=== PATIENT | female | born 1955 | race Caucasian/White ===

== ENCOUNTER 2022-03-01 08:17 | Outpatient (CLI) | payer MEDICARE, MEDICAID, SELFPAY ==
--- OUTSIDE RECORDS SUMMARY | 2022-03-08 10:07 | XMS_ITS | Clinical Summary ---
:1955 Author Organization [facility] Address [address] [place] [address] Care Team Providers Name Role Phone Unavailable Primary Care Provider Unavailable Source Comments Patient records contain information from all sites at [facility]. For routine questions regarding patient records, call [phone] during business hours, M-F 8:00 AM - 5:00 PM Central Time. Record requests for emergency care only can be directed to [phone] at any time.[facility] Allergies No known active allergies Medications Medication [...] mL 4 0 04/23/2018 Active (DUO-NEB) 0.5-2.5 (four) times a mg/3 mL nebulizer day as needed for solution wheezing or shortness of breath. citalopram (CeleXA) Take 20 mg by 0 05/26/2018 Active 20 mg tablet mouth daily. dilTIAZem LA Take 120 mg by 0 04/23/2018 A ctive (CARDIZEM LA) 120 mg mouth at bedtime. 24 hr tablet fluticasone (FLONASE) Administer 2 5 05/11/2018 Active 50 mcg/actuation sprays into each nasal spray nostril at bedtime. MYRBETRIQ 50 mg [...] 0 08/16/2016 Active capsule mouth daily. metFORMIN Take 500 mg by 0 Activ e (GLUCOPHAGE) 500 mg mouth at bedtime. tablet zolpidem (AMBIEN) 5 Take 5 mg by 0 Active mg tablet mouth at bedtime as needed for sleep. ADVAIR DISKUS 250-50 Inhale 1 puff 2 3 06/12/2018 Active mcg/act diskus (two) times a inhaler day. psyllium (METAMUCIL) Daily 0 Active 0.52 gram capsule polyethylene Drink 1st portion 4000 mL 0 04/27/2021 Active glycol-electrolytes of prep at 6 PM (GoLYTELY) the evening [id number] -5.86 before. 2nd gram solution portion must be started 3 hours before and finished 2 hours prior to report time ARIPiprazole TAKE 1 TABLET BY 30 tablet 0 04/28/2021 2 Active (ABILIFY) 20 mg MOUTH EVERY tablet MORNING Active Problems Problem Noted Date Obstruction Intestinal 2021 Diabetes Mellitus Type 2 With Diabetic Polyneuropathy 2021 Morbid Obesity Body Mass Index >= 35 with Comorbid Con dition 2021 Nodule Pulmonary 08/07/2018 Mass Lung 08/07/2018 Other Dope Heater Current Drug Therapy 05/26/2018 Apnea Sleep Obstructive [...] 23 Quit : 2004 Smokeless Tobacco: Never Tobacco Cessation: Counseling Given: No Alcohol Use Standard Drinks/Week Comments No 0 (1 standard drink = 0.6 oz pure alcoho l) Sex Assigned at Date Recorded Not on file Last Filed Vital Signs Vital Sign Reading Time Taken Comments Blood Pressure 138/73 05/05/2021 2:01 PM FINGERPRINTER Pulse 101 05/05/2021 2:11 PM FINGERPRINTER Temperature 36.9 ??C (98.4 ??F) 05/05/2021 1:51 PM FINGERPRINTER Respiratory Rate 16 05/05/2021 2:11 PM FINGERPRINTER Oxygen Saturation 96% 05/05/2021 2:11 PM FINGERPRINTER Inhaled Oxygen Concentration - - Weight 99.1 kg (218 lb 7.6 oz) 04/26/2021 11:31 AM FINGERPRINTER Height 160 cm (5' 3) 2021 12:15 PM FINGERPRINTER Body Mass Index 38.7 2021 12:15 PM FINGERPRINTER Plan of Treatment Health Maintenance Due Date [...] of 3 - 2015 Risk 3-dose series) Depression Screening (Annual 04/29/2021 PHQ-2) Pneumococcal vaccine (65+ years) 11/04/2021 11/04/2020, 08/2014 (2 - PCV) Lipid (Cholesterol) Screening 06/18/2022 06/18/2021, 2021, 11/04/2020, Additional history exists Creatinine Level 07/10/2022 07/10/2021, 07/06/2021, 06/30/2021, Additional history exists Colonoscopy 05/05/2031 05/05/2021, 05/05/2021 Colorectal Cancer Screening 05/05/2031 Cervical Cancer Screening Discontinued 01/10/2021 Fall Risk Screen (Annual) Completed 05/05/2021 Glucose Test for Med Monitoring Discontinued 07/10/2021, 06/27, 07/10/2021, Additional history exists COVID-19 Vaccine Completed 02/22/2022, 02/16/2021, 07/29/2020, Additional history exists Influenza Vaccine Completed 02/22/2022, 04/07/2021, 07/08/2019, Additional history exists Insurance Payer Benefit Plan Subscriber ID Effective Phone Address Typ e / Group Dates MEDICARE MEDICARE A [id number] 1980-Prese [address] [place] [address] [facility] MEDICAID [id number] 2018-Prese [phone] DEPT OF [place] d[place] MEDICAID [id number] [employer] [address] [address] [place] [address] Advance Directives For more information, please contact: [phone] Latest Code Status on File Code Status [...]
--- OUTSIDE RECORDS SUMMARY | 2022-03-08 10:07 | XMS_ITS | Clinical Summary ---
:1955 Author Organization [facility] [place] [address] Care Team Providers Name Role Phone Yecenia Thrasher MD Primary Care Provider [phone] Allergies No known active allergies Medications Medication [...] 12/26/20 Minna Deleon MD/psychiatry Psychophysiological insomnia 11/24/2018 correction current use of clozapine 05/26/2018 Chronic schizophrenia 05/15/2018 KEVIN 03/13/2018 AHI-16 05/15/2018 Adenocarcinoma of lung 05/05/2018 Nonrheumatic mitral valve insufficiency 08/27/2017 Localized edema 09/27/2016 Metabolic syndrome 06/12/2016 Mild intermittent asthma 08/11/2015 Obesity with body mass index 30 or greater 12/26/2014 Asthma Encounters Date Type Specialty Care Team Description 03/01/2022 Orders Only Scanner <No scans attac hed> 02/26/2022 Orders Only Lab, [place] Outside Order ( [place]/ Meet) 02/26/2022 Travel 02/23/2022 Medical Messaging Yecenia Thrasher Update on Gabino Tong MD 02/22/2022 Office Visit Yecenia Thrasher Follow Up; Throat Problem MD Alycia (EGD showed imp aired swallowing); Bl ood Pressure; URI ( Cough and congestion) 02/22/2022 Orders Only Yecenia Thrasher Outside Ord er (Ordered by MD Dr. Piper Tong) 02/22/2022 Travel 12/07/2021 Telephone Yecenia Thrasher Form MD Alycia from Last 3 Months Immunizations Name Administration Dates Next Due COVID-19 vaccine (Pfizer-BioNTech 30mcg/0.3mL) 12YO+ BIVALENT BOOSTER PF, MDV COVID-19 vaccine (Pfizer-BioNTech [...] 160 cm (5' 3) 06/17/2021 3:10 PM MARKETING PROJECT SPECIALIST Body Mass Index 36.14 06/17/2021 3:10 PM MARKETING PROJECT SPECIALIST Plan of Treatment Upcoming Encounters Date Type Specialty Care Team Description 03/13/2022 Office Visit Yecenia Thrasher MD [address] [place] [address] (Suzanne jimenez) 05/01/2022 Office Visit Yeecnia Thrasher MD [address] [address] (Suzanne jimenez) Health Maintenance Due Date Last Done Comments Tdap 1966 Tetanus booster 1975 Colonoscopy through age 75 2000 Zoster (shingles) series for age 1204/24/2005 50+ (1 of 2) DEXA/DXA scan for age 65+ 2020 BMI (ht and wt on same day) for 11/04/2021 11/04/2020, 07/0 11/2019, age 18+ 10/21/2019, Additional history exists Medicare [...] Name Priority Date/Time Associated Diagnosis Comme nts SCAN-RADIOLOGY REPORT 03/01/2022 12:00 Re sults for this AM CDT procedure are i n the results section. CBC WITH AUTO Routine 02/26/2022 2:10 [...] results section. from Last 3 Months Results SCAN-RADIOLOGY REPORT (03/01/2022 12:00 AM CDT) Narrative This result has an attachment that is no t available. Scanner OTHER (ABNORMAL) CBC WITH AUTO DIFFERENTIAL (02/26/2022 2:10 PM CDT)Only the most recent of2 resultswithin the time period is included. [facility] Method Time Signature WHITE BLOOD 5.5 4.5 - 02/26/2022 [facility] COUNT 11.0 2:17 PM CDT [facility] mm RED BLOOD COUNT 3.96 (L) 4.00 - 02/26/2022 [facility] 5.20 2:17 PM CDT [facility] CLINIC HEMOGLOBIN 11.3 (L) 12.0 - 02/26/2022 [facility] 16.0 g/dL 2:17 PM CDT [facility] HEMATOCRIT 35.4 33.0 - 02/26/2022 [facility] 51.0 % 2:17 PM CDT [facility] MCV 89 80 - 100 02/26/2022 [facility] fL 2:17 PM CDT [facility] MCH 28.5 26.0 - 02/26/2022 [facility] 34.0 pg 2:17 PM CDT [facility] MCHC 31.9 (L) 32.0 - 02/26/2022 [facility] 36.0 g/dL 2:17 PM T [facility] RDW 14.2 11.5 - 02/26/2022 [facility] 15.5 % 2:17 PM T [facility] PLATELET COUNT 195 140 - 440 [facility] PM [facility]T [facility] MPV 10.9 6.5 - 02/26/2022 [facility] 11.0 fL 2:17 PM CDT [facility] % NEUT 63.3 % 02/26/2022 [facility] 2:17 PM CDT [facility] % LYMPH 29.0 % 02/26/2022 [facility] 2:17 PM CDT [facility] % MONO 7.3 % 02/26/2022 [facility] 2:17 PM CDT [facility] % EOS 0.2 % 02/26/2022 [facility] 2:17 PM CDT [facility] % BASO 0.2 % 02/26/2022 [facility] 2:17 PM CDT [facility] ABSOLUTE 3.5 1.7 - 7.0 02/26/2022 [facility] NEUTROPHILS thou/cu 2:17 PM CDT [facility] CLINIC ABSOLUTE 1.6 0.9 - 2.9 02/26/2022 [facility] LYMPHOCYTES thou/cu 2:17 PM CDT [facility] CLINIC ABSOLUTE 0.4 <0.9 02/26/2022 [facility] MONOCYTES thou/cu 2:17 PM CDT [facility] CLINIC ABSOLUTE 0.0 <0.5 02/26/2022 [facility] EOSINOPHILS thou/cu 2:17 PM CDT [facility] ABSOLUTE 0.0 <0.3 02/26/2022 [facility] BASOPHILS thou/cu 2:17 PM CDT [facility] CLINIC Specimen Anatomical Collection Method / Collection Time Recei junie Time (Source) Location / Volume Laterality Blood BLOOD SPECIMEN / Venipuncture / 02/26/2022 2:10 2021 2:14 Unknown Unknown PM CDT PM CDT Narrative [facility] - 2021 2:17 PM CDT Notice: This testing was ordered by an outside provider. The provider who placed this order has revie wed and approved it for completion by [facility] lab, but is not involved in this patient's care related to the ordering of this lab. The lab will provide the testing results for Monthly CDF, to the outside provider, Dr. Piper Carlson at fax number [phone] \TTracy Dsouza at fax number [phone], for that provider to inform and arrange appropriate follow up with the patient. Yecenia Thrasher MD HEMATOLOGY Performing Organization Address City/State/ZIP Code Phon e Number [facility] [address] [place] [address] HEMOGLOBIN A1C SCREENING (02/22/2022 11:34 AM CDT) P athologist Signature HEMOGLOBIN A1C 5.8 <=6.4 % 02/23/2022 [facility] SCREENING 8:04 AM CDT [facility]AT[facility] LABOR[facility] Specimen Anatomical Collection Method / Collection Time Recei junie Time (Source) Location / Volume Laterality Blood BLOOD SPECIMEN / Venipuncture / 02/22/2022 11:34 02/22 Unknown Unknown AM CDT 11:36 AM CDT Narrative [facility] LABORATORY-CENTRAL LABORAT ORY - 02/23/2022 8:04 [...] Organization Address City/State/ZIP Code Phon e Number [facility] [address] [place], [place] [id number] [address] LABORATORY-CENTRAL 2000 LABORATORY (ABNORMAL) COMP METABOLIC PANEL (02/22/2022 11:34 AM CDT) [facility] gist Method Time Signature SODIUM 140 135 - 145 02/24/2022 [facility] mmol/L 6:21 PM CDT [facility] POTASSIUM 4.3 3.5 - 5.0 02/24/2022 [facility] mmol/L 6:21 PM CDT [facility] CHLORIDE 105 98 - 110 02/24/2022 [facility] mmol/L 6:21 PM CDT [facility] CO2,TOTAL 24 21 - 31 02/24/2022 [facility] mmol/L 6:21 PM CDT [facility] ANION GAP 11 5 - 18 02/24/2022 [facility] 6:21 PM CDT [facility] GLUCOSE 188 (H) 65 - 100 02/24/2022 [place] [facility] mg/dL 6:21 PM CDT [facility] CALCIUM 9.4 8.5 - 10.5 02/24/2022 [facility] mg/dL 6:21 PM CDT [facility] BUN 9 8 - 25 02/24/2022 [facility] mg/dL 6:21 PM CDT [facility] CREATININE 0.76 0.57 - 02/24/2022 [facility] 1.11 mg/dL 6:21 PM CDT [facility] BUN/CREAT RATIO 12 10 - 20 02/24/2022 [facility] 6:21 PM CDT [facility] ALBUMIN 4.2 3.2 - 4.6 02/24/2022 [facility] g/dL 6:21 PM CDT [facility] PROTEIN,TOTAL 7.1 6.0 - 8.0 02/24/2022 [facility] g/dL 6:21 PM CDT [facility] GLOBULIN 2.9 2.0 - 3.7 02/24/2022 [facility] g/dL 6:21 PM CDT [facility] A/G RATIO 1.4 1.0 - 2.0 02/24/2022 [facility] 6:21 PM CDT [facility] BILIRUBIN,TOTAL 0.4 0.2 - 1.2 02/24/2022 [facility] mg/dL 6:21 PM CDT [facility] ALK PHOSPHATASE 115 50 - 136 02/24/2022 [facility] IU/L 6:21 PM CDT [facility] ALT (SGPT) 29 8 - 45 02/24/2022 [facility] IU/L 6:21 PM CDT [facility] AST (SGOT) 21 2 - 40 02/24/2022 [facility] IU/L 6:21 PM CDT [facility] eGFR 87 (L) >90 02/24/2022 [facility] mL/min/1.7 6:21 PM CDT [facility] 3m2 TRAL [...] MD CHEMISTRY Performing Organization Address City/State/ZIP Code [facility] e Number [facility] [address] [place] [address] LABORATORY-CENTRAL 2000 LABORATORY from Last 3 Months Insurance Payer Benefit Plan / Subscriber ID Effective Dates Phone Addre ss Type Group MEDICARE PART B MEDICARE PART B [id number] 1980-Present ATTN: CLAIMS - HB USE ONLY HB ONLY [address] [place] [address] MEDICARE PART A MEDICARE PART A [id number] 1980-Present ATTN: CLAIMS - HB USE ONLY HB ONLY [address] [place] [address] MEDICARE - PB MEDICARE PB [id number] 2006-Presen ATT N: CLAIMS USE ONLY ONLY t [address] [place] [address] MEDICAID [place] MEDICA[place] [id number] 2018-Present [address] [address] [place] [address] Advance Directives Documents on File Type Date Recorded Patient Histologic Technician Explanati on Healthcare Directive 05/24/2021 05/24/2021 Latest [...] Code Status Discussion: Reviewed Preferences Care Teams Special Education Professor Relationship Specialty Start Date End Date Yecenia Thrasher MD PCP - General Family Practice 04/07/21 [address] [facility] [place] [address]
--- OUTSIDE RECORDS SUMMARY | 2022-03-08 10:08 | XMS_ITS | Encounter Summary ---
:1955 Author Organization [facility] Address [address] [place] [address] Care Team Providers Name Role Phone Unavailable Primary Care Provider Unavailable Encounter Details Date Type Department Care Team Description 05/02/2021 Lab Department of Family Yarbrough, Adriana Brown [facility]inal [facility], [facility], in [place] [address] [place], [place] [address] [facility] [id number] [place] [address] [phone] Social History Tobacco Use Types Packs/Day Years [...] Obstruction Res ults for this RNA, V FORESTRY CONSULTANT Intestinal ([facility]) procedure a re in the results section. documented in this encounter Results SARS Coronavirus-2 RNA, V Asymptomatic (05/02/2021 4:28 PM FORESTRY CONSULTANT) [facility] Method Time Signature SARS-CoV-2 Swab, 05/03/2021 MKTO Specimen Nasopharynx 1:09 PM FORESTRY CONSULTANT Source SARS CoV-2 Undetected Undetected 05/03/2021 MKTO RNA, TMA 1:09 PM FORESTRY CONSULTANT Comment: SARS-CoV-2 RNA absent. This result does not rule out COVID-19 in the patient, as the sensitivity of the test depends o n the timing of the specimen collection and the quality of the specim en. Result should be correlated with patient's history and clinical presentat ion. ----ADDITIONAL INFORMATION---- This molecular amplification test was pe rformed using the Aptima SARS-CoV-2 assay ([employer] on the [employer] tem under emergency use authorization (EUA) by the U.S. Food and Drug Administ ration. Fact sheets for this EUA assay can be fo und at the following links: For Healthcare Providers: https://www.[employer] a.gov/media/586668/download For Patients: https://www.fda.gov/media/ 455509/download Specimen Anatomical Collection Method Collection Time Receive d Time (Source) Location / / Volume Laterality Varies 05/02/2021 4:28 PM 2 8:09 (Nasopharynx) FORESTRY CONSULTANT PM FORESTRY CONSULTANT Adriana Yarbrough P.A.-C. LAB MICROBIOLOGY - GENERAL O HAFSAERAREJI Performing Organization Address City/State/ZIP Code Phon e Number [facility]- [address] [place] [address] [place] [address] System [address] documented in this encounter Visit Diagnoses Diagnosis Obstruction Intestinal (HCC) documented in this encounter Additional Health Concerns Infection Onset Date Last Indicated Resolved Time COVID19 Pending 05/01/2021 05/02/2021 05/03/2021 1:10 PM FORESTRY CONSULTANT documented as of this encounter
--- OUTSIDE RECORDS SUMMARY | 2022-03-08 10:08 | XMS_ITS | Encounter Summary ---
:1955 Author Organization [facility] Address [address] [place] [address] Care Team Providers Name Role Phone Unavailable Primary Care Provider Unavailable Encounter Details Date Type Department Care Team Description 05/01/2021 Orders Only Division of Trauma Yarbrough, Adriana L, Obstruc tion Intestinal Critical Care and P.A.-C. 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 This result does not rule out COVID-19 in the patient, as the sensitivity of the test depends o n the timing of the specimen collection and the quality of the specim en. Result should be correlated with patient's history and clinical presentat ion. ----ADDITIONAL INFORMATION---- This molecular amplification test was pe rformed using the Aptima SARS-CoV-2 assay ([employer] on the [employer] tem under emergency use authorization (EUA) by the U.S. Food and Drug Administ [facility]. Fact sheets for this EUA assay can be fo und at the following links: For Healthcare Providers: https://www.fd a.gov/media/898766/download For Patients: https://www.fda.gov/media/ 987876/download Specimen Anatomical Collection Method Collection Time Receive d Time (Source) Location / / Volume Laterality Varies 05/02/2021 4:28 PM 8:09 (Nasopharynx) BORE MINER OPERATOR PM BORE MINER OPERATOR Adriana Yarbrough P.A.-C. LAB MICROBIOLOGY - GENERAL O RDERABLES Performing Organization Address City/State/ZIP Code Phon e Number [facility]- [address] [place] [id number] [place] [address] [place] [address] System [address] documented in this encounter Visit Diagnoses Diagnosis Obstruction Intestinal (HCC) - Primary documented in this encounter
--- OUTSIDE RECORDS SUMMARY | 2022-03-08 10:08 | XMS_ITS | Encounter Summary ---
:1955 Author Organization [facility] Address [address] [place] [id number] Care Team Providers Name Role Phone Unavailable Primary Care Provider Unavailable Reason for Referral Physical Therapy (Routine) - Authorized Specialty Diagnoses / Procedures Referred By Contact Refer red To Contact Diagnoses Obstruction Intestinal (HCC) Decline Functional Status Lilia Colon APRN, C.N.P. [address] [place] [phone] Referral ID Status Reason Start Expiration Visits Visits Date Date Requested Authorized [id number] Authorized Continuity of 04/28/2022 99 99 Care 1 CTION CONTROL SPECIALIST Encounter Details Date Type Department Care Team Description 2021 - Hospital Encounter [facility] Rajani Flores M.D. [address] [place] [phone] Obstruction Intestinal (HCC) (Primary Dx ); [facility] [address] [place] [phone] Decline Functional Status [facility] Lance Armstrong M.D. [address] [place] [phone] [facility], Fourth Floor [address] [place] [phone] Social History Tobacco Use Types Packs/Day Years [...] Comments Blood Pressure 145/69 04/28/2021 3:31 PM INFECTION CONTROL SPECIALIST Pulse 86 04/28/2021 3:31 PM INFECTION CONTROL SPECIALIST Temperature 36.7 ??C (98.1 ??F) 04/28/2021 3:31 PM INFECTION CONTROL SPECIALIST Respiratory Rate 40 04/28/2021 3:31 PM INFECTION CONTROL SPECIALIST Oxygen Saturation 92% 04/28/2021 3:31 PM INFECTION CONTROL SPECIALIST Inhaled Oxygen Concentration - - Weight 99.1 kg (218 lb 7.6 oz) 04/26/2021 11:31 AM INFECTION CONTROL SPECIALIST Height 160 cm (5' 3) 2021 12:15 PM INFECTION CONTROL SPECIALIST Body Mass Index 38.7 2021 12:15 PM INFECTION CONTROL SPECIALIST documented in this encounter Discharge Summaries Lilia Colon, HUGH, C.N.P. - 04/28/2021 10:59 AM CST DISCHARGE SUMMARY BRIEF OVERVIEW Hospital: [facility] Discharge Provider: Sudarshan Mayer M.D. Primary Team: [facility] No primary care provider on file. Primary [...] please call to make an appointment at [phone]. If you need to reach a provider on the TCGS service after hours, you may call the [facility] pick pulling machine operator at and ask to speak the provider collections professional for the Trauma-Critical Care-General Surgery (TCGS) Service. If you have forms that need addressed by the surgery team or outside records that need to be uploaded, please email them to [email or web address] or fax them at [phone]. PRIMARY CARE PROVIDER: You should follow up [...] Culture, Aerobic + Susc, Resp Collected (04/24/21 1181) Gram Stain Collected (04/24/21 1309) DETAILS OF HOSPITAL STAY REASON FOR ADMISSION Obstruction Intestinal (HCC) HOSPITAL COURSE Ms. Sarah Reyes is a 66 year old female with a PMH of mitral valve insufficiency, HTN, KEVIN, DM type 2, metabolic syndrome, schizophrenia, left lung adenocarcinoma s/p wedge lung resection (2018) who presented to the [facility] Emergency Department on 04/23 for abdominal pain and vomiting for [address] A/P demonstrated high-grade obstruction in her right lower quadrant. She was admitted overnight and transferred to [facility] on 04/24 due to respiratory distress [...] were provided to the patient and caregiver(s). CTION CONTROL SPECIALIST documented in this encounter Medications at [...] capsule every morning before breakfast. psyllium (METAMUCIL) Daily 0 0.52 gram capsule vitamin E 400 unit Take [...] wheezing or shortness of breath. ARIPiprazole (ABILIFY) TAKE 1 TABLET BY 30 tablet 0 021 04/28/2022 20 mg tablet MOUTH EVERY MORNING ipratropium-albuterol Inhale 3 mL 4 (four) 0 03/30 (DUO-NEB) 0.5-2.5 mg/3 times a day as needed mL nebulizer solution for wheezing or shortness of breath. polyethylene Drink 1st portion of 4000 mL 0 04/27/2021 glycol-electrolytes prep at 6 PM the (GoLYTELY) evening before. 2nd 236-22.74-6.74 -5.86 portion must be gram solution started 3 hours before and finished 2 hours prior to report time ARIPiprazole (ABILIFY) Take 1 tablet (20 mg 30 tablet 0 04/202104/29/2021 20 mg tablet total) by mouth every morning. documented as of this encounter Progress Notes Charlene Shannon P.T., Polly.P.T. - 04/28/2021 5:08 PM CST 05/01/21 1620 Plan PT Plan Comments Patient discharged home. Patient family will assist. Goals set during this episode of care family will assist Adaptive equipment not needed Charlene Shannon P.T., LocP.T. CTION CONTROL SPECIALIST Lilia Colon APRN, C.N.P. - 04/28/2021 [...] Disposition: Home with family later this morning; [facility] PT referral script given Patient has close follow up with colonoscopy on 05/01/21 and should follow up thereafter with PCP. Sheverbalizes understanding. For questions/concerns in regards to patient plan of care, please page HSS-B service at [phone]. ADDENDUM: ([id number]) Spoke with Naomi, Sister and garbage depot worker. 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 Will contact marketing technology coordinator early a.m.on 05/01 and move this [...] unsuccessful in obtaining PCP appointment as well. CTION CONTROL SPECIALIST Narciso Gama M.B.B.S. - 04/27/2021 10:29 [...] for by the HSS-B team. Please page [phone] (HSS-B) with any questions or concerns. Plans were discussed with Dr. Mayer, who was in agreement Ashley LizarragaS Resident Physician PGY-1 General Surgery [email or web address] CTION CONTROL SPECIALIST Kathy Zavaleta P.T.A. - 04/27/2021 2:10 [...] insufficiency and KEVIN who presented to the [facility] Emergency Department on 04/23 for abdominal pain and vomiting for [address] A/P demonstrated high-grade obstruction in her right lower quadrant. She was admitted overnight and transferred to [facility] on 04/23 due to respiratory distress most [...] provided today: Exercises for the Legs (Sitting) ([id number]) The following coordination of care occurred today: [...] mask during therapy session: yes Outcome Measures [facility] Inpatient Short Form: -[facility] Basic Mobility (V.2) How much help [...] 3-5 steps with a railing?: A Lot -[facility] Basic Mobility (V.2) Raw Score: 20 -[facility] Basic Mobility (V.2) Standardized Score: 43.99 Interpretation: Clinicians answer the -[facility] Inpatient Short Form based on observed [...] Therapeutic exercise,Therapeutic functional activity,Neuromuscular re-education,Self-care/home management,Gait training WORKERS' COMPENSATION CLAIMS EXAMINER Visit Trackin Billing: Time Spent with Patient Gait Training (min): 20 min Therapeutic Exercise (min): 12 min Total Timed Units (min): 32 min Total Treatment Time (min): 32 min Kathy Zavaleta P.T.A. Nancy Hays Pharm.D., R.Ph. - 04/27/2021 11:50 AM CST [...] and bowel regimens. David Lawson Pharm.D., R.Ph. CTION CONTROL SPECIALIST Kim Browne L.G.S.W., M.S.W. - 04/27/2021 [...] our ownership and financial relationship of the [facility], home health, and hospice agencies. Reviewed Medicare [...] hopeful home healthcare services. Referrals Sent: 1. [facility] 2. [facility] 3. [facility] 4. [facility] OBJECTIVE Patient seen up in the chair [...] or discharge needs. Mehreen Downing, M.S.W. 04/27/21 CTION CONTROL SPECIALIST Sonido Woodall P.A.-C. - 04/27/2021 6:59 AM CST PATIENT NOT SEEN Recommend increasing Abilify to 20 mg daily in the absence of clozapine. Defer consideration of re-initiation of clozapine to her outpatient psychiatrist. Thank you for allowing us to assist in the care of your patient. Please contact me at [phone] withany questions or for further information. After regular work hours, you can contact the On-call service pager at [phone]. CTION CONTROL SPECIALIST Cassandra Olmstead M.B.B.S. - 04/26/2021 2:05 PM [...] a small-bowel obstruction and was transferred to [facility]. She underwent a Gastrografin challenge which [...] for by the HSS-B team. Please page [phone] (HSS-B) with any questions or concerns. Plans were discussed with Dr. Mayer, who was in agreement Thao Yeager Resident Physician PGY-1 General Surgery [email or web address] Salty Lewis, P.T.A. - 04/26/2021 1:24 PM CST 04/26/21 1322 Reason Therapy Missed Reason Therapy Missed Patient refused Pt declined therapy with this marketing copywriter due do feel exposed and not comfortable [...] Lance Armstrong M.D. CT CT Job ID: [id number] CTION CONTROL SPECIALIST Melissa Soria, Pharm.D. - 04/25/2021 9:09 AM CST Pharmacist Progress Note Reason for admission: SBO, last BM 2 days prior PMH: schizophrenia ASSESSMENT and PLAN: Home meds: Per h, holding home clozapine, metformin Neuro: Psych following. Clozapine level ordered. Holding doses for now. Home citalopram, Abilify resumed, ANC 4940 (reported 04/24, q4wk dump grounds checker). Psych is following and may need [...] Enoxaparin 40 mg PPI (home) Melissa Soria PharmElviD. Cassandra Cobian M.B.BElviSElvi - 04/25/2021 7:14 AM CST HSS B [...] & Screen Expiration 04/27/2021 23:59 Testing Location [place] Hepatic Function Panel Collection Time: 04/24/21 12:57 [...] small- bowel obstruction and was transferred to [facility] ICU. She underwent a Gastrografin challenge [...] for by the HSS-B team. Please page [phone] (HSS-B) with any questions or concerns. Plans were discussed with Dr. Mayer, who was in agreement Thao Yeager Resident Physician PGY-1 General Surgery [email or web address] CTION CONTROL SPECIALIST Sofia Knight APRN, C.N.P., D.N.P. - 04/25/2021 1:29 AM CST SUBJECTIVE Brief Summary: Ms. Reyes is a 66 year old female with a PMH of schizophrenia, left lung adenocarcinoma s/p wedge lung resection 2018, T2DM, metabolic syndrome, mitral valve insufficiency and KEVIN who presented to the [facility] Emergency Department on 04/23 for abdominal pain and vomiting for2 days. CT A/P demonstrated high-grade obstruction in her right lower quadrant. She was admitted overnight and transferred to [facility] on 04/23 due to respiratory distress most [...] Index >= 35 with Comorbid Condition (HCC) CTION CONTROL SPECIALIST Melissa Soria Pharm.D. - 2021 4:34 PM CST Pharmacist Progress Note Reason for admission: SBO, last BM 2 days prior PMH: schizophrenia ASSESSMENT and PLAN: Home meds: Per [facility], holding home clozapine, metformin Neuro: Psych following. Clozapine level ordered. Holding doses for now. Home citalopram, Abilify resumed, ANC 4940 (reported 04/24, q4wk dump grounds checker) Resp: On O2 upon arrival, concern [...] Proph: SQH, PPI (home) Melissa Soria Pharm.D. CTION CONTROL SPECIALIST Chuck Armstrong M.D. - 2021 2:30 PM [...] & Screen Expiration 04/27/2021 23:59 Testing Location [place] Hepatic Function Panel Collection Time: 04/24/21 12:57 [...] ambulation. Prophylaxis: Subcu heparin t.i.d. Dispo: SICU CTION CONTROL SPECIALIST Oneal Robison, Pharm.D., R.Ph. - 2021 1:46 PM CST [...] mouth at bedtime as needed for sleep. CTION CONTROL SPECIALIST Ruiz Brownlee, M.S., O.T. - 2021 1:13 PM CST 04/24/21 2513 Reason Therapy Missed Reason Therapy Missed Medical hold OT/PT orders received, chart review completed. Patient recently admitted with ongoing medical workup. Will hold occupational/physical therapy and initiate plan of care as appropriate. CTION CONTROL SPECIALIST Chuck Wetzel L.R.T. - 2021 12:14 [...] PH ART in the last 24 hours. CTION CONTROL SPECIALIST documented in this encounter H&P Notes [...] Former smoker 7. BMI 38.3 8. Schizophrenia CTION CONTROL SPECIALIST Alexis Peraza P.A.-C. - 2021 2:01 PM CST REFERRAL SOURCE [facility] REASON FOR ADMISSION SBO and possible aspiration pneumonia with respiratory distress HISTORY OF PRESENT ILLNESS Ms. Reyes is a 66 year old female with a PMH of schizophrenia, left lung adenocarcinoma s/p wedge lung resection 2018, T2DM, metabolic syndrome, mitral valve insufficiency and KEVIN who presented to [facility] Emergency Department on 04/23 for abdominal pain and vomiting for [address] A/P demonstrated high-grade obstruction in her right lower quadrant. She was admitted overnight and transferred to [facility] on 04/23 due to respiratory distress most [...] DISPOSITION: - SICU #1 Obstruction Intestinal (HCC) CTION CONTROL SPECIALIST Sudarshan Mayer M.D. - 2021 2:01 [...] developed respiratory distress and presented to [facility] emergency department. PE protocol CT scan was negative. CT scan of abdomen suggested small-bowel obstruction and patient was transferred. CT shows marked distension of stomach and proximal small bowel. Small bowel measures up to 5 cm in diameter. There is a transition to collapsed bowel in the anterior, mid-central false pelvis - [id number], image 127-124. Patient is a very poor [...] at 2.4. White blood count normal in [facility]. Will insure adequate volume resuscitation. Discussed with [...] 4.2 noted. Gastrografin administered at 2:37 p.m. CTION CONTROL SPECIALIST documented in this encounter Consult Notes Kim Browne L.G.SRachel, M.S.W. - 04/26/2021 11:22 AM CSTAssociated Order(s): [...] is feeling much better now. Patient informed nursing home social worker of all of the fluids shehas been given since presenting to the hospital, as well as the fact that she has now had bowel function which has alleviated her pain. SOCIAL HISTORY Family / Household: Patient lives with her sister and nqpgqon-vo-reo. She has never been norhad children. Spirituality / Nondenominational / Culture: Not judaism History: No Employment: Disabled Psychosocial Risk Factors [...] has great support from her sister and zaorhnq-ib-ztw with whom she lives. FINANCES/INSURANCE Primary insurance: MEDICARE A AND B Secondary insurance: [place] MEDICAID Financial concerns: No ADVANCE DIRECTIVES Advance [...] She endorses great support from her sister nkimlgffit-sr-ghh whom she lives with. She notes that [...] support is provided by patient's sister and hiyggbh-yf-xdi. She has a long history of schizophrenia [...] of care/plan: None Mehreen Downing, M.S.W. 04/26/2021 CTION CONTROL SPECIALIST Trupti Gonzales O.T. - 04/25/2021 1:59 [...] 2 (HCC) ??? Edema Localized ??? Other Correction Current Drug Therapy ??? Metabolic Syndrome ??? [...] insufficiency and KEVIN who presented to the [facility] Emergency Department on 04/23 for abdominal pain and vomiting for [address] A/P demonstrated high-grade obstruction in her right lower quadrant. She was admitted overnight and transferred to [facility] on 04/23 due to respiratory distress most likely due to possible aspirationpneumonia. Occupational Profile: Prior Function/Occupational Profile Lives With: Family (Sister and qecwhfh-yi-wth. Patient reports they do work but sometimes print binding and finishing worker. She was unclear on how often they are home. Further clarification needed. Nephew also stays with them off and on.) Receives Help From: Family ADL Assistance: Modified independent ADL Assistance Comments: Independent in dressing and toileting. Takes seated showers without assistance. IADL/Homemaking Assistance Comments: Patient performs her own meals for breakfast and lunch. Sister and sqrwfjy-ak-hwo prepare dinner and do the majority of cleaning. Patient does own laundry. Sister assists with setting up pill box but patient takes daily on own. Patient has assistance from sister with finances. Family manages yard work. 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 CTION CONTROL SPECIALIST Keaton Owens P.T., D.P.T. - 04/25/2021 [...] 2 (HCC) ??? Edema Localized ??? Other Correction Current Drug Therapy ??? Metabolic Syndrome ??? [...] insufficiency and KEVIN who presented to the [facility] Emergency Department on 04/23 for abdominal pain and vomiting for [address] A/P demonstrated high-grade obstruction in her right lower quadrant. She was admitted overnight and transferred to [facility] on 04/23 due to respiratory distress most likely due to possible aspiration pneumonia. Prior Function/Occupational Profile Lives With: Family (Sister and olnqpig-bl-zcf. Patient reports they do work but sometimes print binding and finishing worker. She was unclear on how often they are home. Further clarification needed. Nephew also stays with them off and on.) Receives Help From: Family ADL Assistance: Independent ADL Assistance Comments: Independent in dressing and toileting. Takes seated showers independently. IADL/Homemaking Assistance Comments: Patient performs her own meals for breakfast and lunch. Sister and xqbfzza-tq-dqo prepare dinner and do the majority of cleaning. 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 facility. [facility] Inpatient Short Form: -[facility] Basic Mobility (V.2) How much help [...] 3-5 steps with a railing?: A Lot -[facility] Basic Mobility (V.2) Raw Score: 17 -[facility] Basic Mobility (V.2) Standardized Score: 39.67 Interpretation: Clinicians answer the -[facility] Inpatient Short Form based on observed [...] (min): 31 min Keaton Owens P.T., D.P.T. CTION CONTROL SPECIALIST Cam Mariee M.D. - 2021 4:55 [...] agrees with the plan as outlined above. CTION CONTROL SPECIALIST Cassandra Olmstead M.B.B.S. - 2021 4:22 [...] respiratory distress the patient was transferred to [facility] directly. After reaching the ICU, the [...] Nonrheumatic Mitral Valve Insufficiency 08/27/2017 ??? Other Lap Runner Current Drug Therapy 05/26/2018 ??? Schizophrenia (HCC) 05/05/2018 Past Surgical History: Procedure Laterality Date ??? BRONCHOSCOPY FLEXIBLE: EBUS TBNA ENDOBRONCHIAL ULTRASOUND NEEDLE ASPIRATION N/A 06/30/2018 Procedure: Bronchoscopy Flexible: Endobronchial Ultrasound Guided Transbronchial Needle Aspiration;Surgeon: Keaton Noe M.D.; Location: [facility] OR ??? VATS - WEDGE RESECTION LUNG Left 08/07/2018 Procedure: THORACOSCOPY, WEDGE RESECTION LUNG.; Surgeon: Fany Lyn M.D.; Location: [facility] OR No Known Allergies reports that she [...] gas pattern has improved compared to CT revenue field agent image on 04/23/2021. Excreted IV contrast from [...] small-bowel obstruction. Therefore, she was transferred to [facility] ICU as a direct admit. The patient [...] team with any questions concerns by paging [phone] (S-B). Plan and assessment were discussed with Dr. Mayer and Dr. Mariee, who were in agreement. TT: 30 minutes, CT > 50%. The patient acknowledges an understanding and agrees with the plan of care. Ashley YeagerS Resident Physician PGY-1 General Surgery [email or web address] CTION CONTROL SPECIALIST Associated attestation - Cam Mariee M.D. - 2021 4:54 PM INFECTION CONTROL SPECIALIST . Lance Armstrong M.D. - 2021 4:18 PM CST SUBJECTIVE HISTORY OF PRESENT ILLNESS I reviewed, discussed, examined, and agree with documentation of Surgical Critical Care fellow, Dr. Chuck Armstrong. Patient is a 66-year-old female who my colleague, Dr. Jeanie Flores, accepted in transfer from [place], [place]. She has bowel obstruction. Unfortunately, she [...] Lance Armstrong M.D. CT CT Job ID: [id number] CTION CONTROL SPECIALIST Sonido Woodall P.A.-C. - 2021 2:47 PM CSTAssociated Order(s): IP CONSULT TO PSYCHIATRY & PSYCHOLOGY SUBJECTIVE Referring team: [facility] Trauma and General Surgery REASON FOR CONSULT [...] is largely unknown. She notes that since 2018 the patient has been maintained on clozapine,Abilify [...] since Sat2021 at 1423 by Alexis Peraza P.A.-C..Hold Comments: Pending pysch recommendations) 300 mg, oral, Dailyat bedtime Ordered [Held by provider] cloZAPine tablet 50 mg (CLOZARIL) (Held by provider since Sat2021 at 1423by Alexis Peraza P.A.-CElvi.Hold Comments: Pending pysch recommendations) 50 mg, oral, [...] This case will be discussed with a healthcare management consultant in the next 24 hours Patient [...] of your patient. Please contact me at [phone] withany questions or for further information. Sonido Woodall P.A.-C. 2021 CTION CONTROL SPECIALIST documented in this encounter Nursing Notes Bethany Salamanca R.N. - 04/28/2021 4:59 PM CST Pt's belongings were all packed up and IV was removed. Education was gone over with pt and her garbage depot worker (sister) and paperwork was sent with them. Pt will be riding with sister and discharging back home for self care. Escort was called and pt left the unit via wheelchair. CTION CONTROL SPECIALIST Bethany Salamanca R.N. - 04/28/2021 4:57 PM CST Shift Goals: Clinical Goals for the Shift: Ability to void and adequate urine output, maintain hematologic and hemodynamic stability. Identify possible barriers to meeting goals/advancing plan of care: End of Shift Summary: AVS was gone over with patient and her garbage depot worker (sister) and transport was called to take them downto pharmacy to milk pickup driver medications. All questions were answered and pt DC HSC. CTION CONTROL SPECIALIST Nicole Quan R.R.T., L.R.T. - 04/25/2021 [...] Nicole Quan R.R.T., L.R.T. 04/25/21 10:09 AM INFECTION CONTROL SPECIALIST CTION CONTROL SPECIALIST Modesta Bruce R.R.T., L.R.T. - 04/25/2021 3:24 [...] bedside. Electronically signed by: Modesta Bruce R.R.T., Garcia 04/25/21 3:24 AM INFECTION CONTROL SPECIALIST CTION CONTROL SPECIALIST documented in this encounter Miscellaneous Notes Hospital Course - Chente-Lilia Hooper APRN, C.N.P. - 04/25/2021 11:53 AM CST Ms. Sarah Reyes is a 66 year old female with a PMH of mitral valve insufficiency, HTN, KEVIN, DM type 2, metabolic syndrome, schizophrenia, left lung adenocarcinoma s/p wedge lung resection (2018) who presented to the [facility] Emergency Department on 04/23 for abdominal pain and vomiting for [address] A/P demonstrated high-grade obstruction in her right lower quadrant. She was admitted overnight and transferred to [facility] on 04/24 due to respiratory distress [...] outpatient setting. Colonoscopy is scheduled for 05/01/2021. CTION CONTROL SPECIALIST documented in this encounter Plan of [...] lts for RNA, RAPID POC, V AM INFECTION CONTROL SPECIALIST this proce dure are in the results section. CBC WITHOUT Routine 04/27/2021 8:20 Results for DIFFERENTIAL, B PM INFECTION CONTROL SPECIALIST this procedu re are in the results section. ADULT OXYGEN THERAPY Routine 04/27/2021 8:01 AM INFECTION CONTROL SPECIALIST CBC WITH Routine 04/26/2021 8:18 Results for DIFFERENTIAL, B PM INFECTION CONTROL SPECIALIST this procedu re are in the results section. ADULT OXYGEN THERAPY Routine 04/26/2021 8:00 PM INFECTION CONTROL SPECIALIST CBC WITHOUT Timed 04/26/2021 2:53 Results for DIFFERENTIAL, B PM INFECTION CONTROL SPECIALIST this procedu re are in the results section. ADULT OXYGEN THERAPY Routine 04/26/2021 8:01 AM INFECTION CONTROL SPECIALIST DX CHEST PORTABLE 1 RAD - Routine 04/26/2021 5:56 Resu lts for VIEW (most inpatients AM INFECTION CONTROL SPECIALIST this proced ure and all are in the outpatients) results section. DX ABDOMEN PORTABLE RAD - Routine 04/25/2021 8:50 Resu lts for ANTERIOR POSTERIOR 1 (most inpatients PM INFECTION CONTROL SPECIALIST thi s procedure VIEW and all are in the outpatients) results section. CBC WITHOUT Routine 04/25/2021 8:29 Results for DIFFERENTIAL, B PM INFECTION CONTROL SPECIALIST this procedu re are in the results section. BASIC METABOLIC Routine 04/25/2021 8:29 Results f or PANEL, S/P PM INFECTION CONTROL SPECIALIST this procedure are in the results section. ADULT OXYGEN THERAPY Routine 04/25/2021 8:00 PM INFECTION CONTROL SPECIALIST GLUCOSE POCT, B Routine 04/25/2021 11:29 Results for AM INFECTION CONTROL SPECIALIST this procedure are in the results section. GLUCOSE POCT, B Routine 04/25/2021 9:38 Results f or AM INFECTION CONTROL SPECIALIST this procedure are in the results section. DX ABDOMEN PORTABLE RAD - Semiurgent 04/25/2021 8:40 R esults for ANTERIOR POSTERIOR 1 (Fast; most ED AM INFECTION CONTROL SPECIALIST this procedure VIEW patients; some are in the inpatients) results section. ADULT OXYGEN THERAPY Routine 04/25/2021 8:01 AM INFECTION CONTROL SPECIALIST PATIENT STATUS Routine 04/25/2021 4:46 Results fo r AM INFECTION CONTROL SPECIALIST this procedure are in the results section. ABG W/COOX Routine 04/25/2021 4:46 Results for AM INFECTION CONTROL SPECIALIST this procedure are in the results section. CLOZAPINE, S Routine 04/25/2021 4:40 Results for AM INFECTION CONTROL SPECIALIST this procedure are in the results section. CBC WITHOUT Routine 04/25/2021 4:40 Results for DIFFERENTIAL, B AM INFECTION CONTROL SPECIALIST this procedu re are in the results section. MAGNESIUM, S Routine 04/25/2021 4:40 Results for AM INFECTION CONTROL SPECIALIST this procedure are in the results section. BASIC METABOLIC Routine 04/25/2021 4:40 Results f or PANEL, S/P AM INFECTION CONTROL SPECIALIST this procedure are in the results section. THROMBOELASTOGRAPH, Routine 04/25/2021 4:38 Resul ts for KAOLIN, B AM INFECTION CONTROL SPECIALIST this procedure are in the results section. DX CHEST PORTABLE 1 RAD - Routine 04/25/2021 4:11 Resu lts for VIEW (most inpatients AM INFECTION CONTROL SPECIALIST this proced ure and all are in the outpatients) results section. GLUCOSE POCT, B Routine 04/25/2021 3:34 Results f or AM INFECTION CONTROL SPECIALIST this procedure are in the results section. GLUCOSE POCT, B Routine 04/25/2021 12:06 Results for AM INFECTION CONTROL SPECIALIST this procedure are in the results section. DX ABDOMEN PORTABLE RAD - Routine 2021 11:05 Res ults for ANTERIOR POSTERIOR 1 (most inpatients PM INFECTION CONTROL SPECIALIST thi s procedure VIEW and all are in the outpatients) results section. ADULT OXYGEN THERAPY Routine 2021 8:00 PM INFECTION CONTROL SPECIALIST PROTHROMBIN TIME Timed 2021 6:57 Results for (PT), P PM INFECTION CONTROL SPECIALIST this procedure are in the results section. CBC WITHOUT Timed 2021 6:57 Results for DIFFERENTIAL, B PM INFECTION CONTROL SPECIALIST this procedu re are in the results section. LACTATE, B/P Timed 2021 6:57 Results for PM INFECTION CONTROL SPECIALIST this procedure are in the results section. BASIC METABOLIC Timed 2021 6:57 Results f or PANEL, S/P PM INFECTION CONTROL SPECIALIST this procedure are in the results section. TROPONIN T, 2H/6H, Timed 2021 2:55 Result s for 5TH GEN, P PM INFECTION CONTROL SPECIALIST this procedure are in the results section. CLOZAPINE, S Timed 2021 2:55 Results for PM INFECTION CONTROL SPECIALIST this procedure are in the results section. SARS CORONAVIRUS 2, Routine 2021 2:29 Resul ts for RNA, RAPID POC, V PM INFECTION CONTROL SPECIALIST this proce dure are in the results section. DX ABDOMEN PORTABLE RAD - Routine 2021 2:17 Resu lts for ANTERIOR POSTERIOR 1 (most inpatients PM INFECTION CONTROL SPECIALIST thi s procedure VIEW and all are in the outpatients) results section. PATIENT STATUS STAT 2021 1:00 Results fo r PM INFECTION CONTROL SPECIALIST this procedure are in the results section. ABG W/COOX STAT 2021 1:00 Results for PM INFECTION CONTROL SPECIALIST this procedure are in the results section. CALCIUM, IONIZED, S/B STAT 2021 1:00 Res ults for PM INFECTION CONTROL SPECIALIST this procedure are in the results section. TROPONIN T, BASELINE, STAT 2021 12:57 Re sults for 5TH GEN, P PM INFECTION CONTROL SPECIALIST this procedure are in the results section. HEPATIC FUNCTION STAT 2021 12:57 Results for PANEL, S PM INFECTION CONTROL SPECIALIST this procedure are in the results section. CBC WITHOUT STAT 2021 12:57 Results for DIFFERENTIAL, B PM INFECTION CONTROL SPECIALIST this procedu re are in the results section. TYPE AND SCREEN Routine 2021 12:57 Results for PM INFECTION CONTROL SPECIALIST this procedure are in the results section. LACTATE, B/P STAT 2021 12:57 Results for PM INFECTION CONTROL SPECIALIST this procedure are in the results section. BASIC METABOLIC STAT 2021 12:57 Results for PANEL, S/P PM INFECTION CONTROL SPECIALIST this procedure are in the results section. THROMBOELASTOGRAPH, STAT 2021 12:55 Resu lts for KAOLIN, B PM INFECTION CONTROL SPECIALIST this procedure are in the results section. CBC WITH Routine 2021 12:41 Results for DIFFERENTIAL, B PM INFECTION CONTROL SPECIALIST this procedu re are in the results section. DX CHEST PORTABLE 1 RAD - Routine 2021 12:34 Res ults for VIEW (most inpatients PM INFECTION CONTROL SPECIALIST this proced ure and all are in the outpatients) results section. DX ABDOMEN PORTABLE RAD - Semiurgent 2021 12:33 Results for ANTERIOR POSTERIOR 1 (Fast; most ED PM INFECTION CONTROL SPECIALIST this procedure VIEW patients; some are in the inpatients) results section. INTERPRETATION OF RAD - Routine 2021 12:25 Resul ts for OUTSIDE CT ABDOMEN (most inpatients PM INFECTION CONTROL SPECIALIST this procedure AND OR PELVIS and all are in the outpatients) results section. ECG STAT 2021 12:15 Results for PM INFECTION CONTROL SPECIALIST this procedure are in the results section. ADULT OXYGEN THERAPY Routine 2021 11:59 AM INFECTION CONTROL SPECIALIST ADULT OXYGEN THERAPY Routine 2021 11:59 AM INFECTION CONTROL SPECIALIST documented in this encounter Results SARS Coronavirus 2, RNA, Rapid POC, V Asymptomatic (04/28/2021 12:58 AM INFECTION CONTROL SPECIALIST) [facility] Method Time Signature SARS Undetected Undetected 04/28/2021 DTLR Coronavirus-2 1:19 AM INFECTION CONTROL SPECIALIST , RNA, Rapid POC, V Comment: Negative for SARS-CoV-2. The [facility] COVID-19 test is a molecular erin t for SARS-CoV-2, the virus that causes COVID- 19. A Negative result means that the [facility] COV ID-19 test did not detect SARS-CoV-2 virus in your sample. [facility] COVID-19 test uses the [employer] nitoring System. This test has received Emergency Use Authorization (EUA) by the U.S. Food and Drug Administration (FDA) and is used per man ufacturer instructions. Performance characteristic s were verified by [facility] in a manner consistent with CLIA requirements. Fact sheets for this Emerg ency Use Authorization (EUA) can be found at the following links: Providers: https://[employer] Engine/documentation/prov iders.pdf Patients: https://[employer].com/documentation/dinora ents.pdf SARS Coronavirus 2, Source Nasopharynx DEFAULT 04/28/2021 1:19 AM INFECTION CONTROL SPECIALIST DTLR Specimen Anatomical Collection Method Collection Time Receive d Time (Source) Location / / Volume Laterality Varies 04/28/2021 12:58 04/28/2021 (Nasopharynx) AM INFECTION CONTROL SPECIALIST 12:58 AM INFECTION CONTROL SPECIALIST Narciso RamirezSElvi LAB MICROBIOLOGY - GENERAL O RDERABLES Performing Organization Address City/[facility] Phon e Number PERFORMING LABS, REF [place] [address] INTERFACE Ref Interface [address] [facility] DTLR Performing Labs, [place] [address] Interface [address] [facility] (ABNORMAL) CBC without Differential (04/27/2021 8:20 PM INFECTION CONTROL SPECIALIST) [facility] [employer] Method Time Signature Hemoglobin 10.8 (L) 11.6 - 04/27/2021 DTL 15.0 g/dL 8:39 PM INFECTION CONTROL SPECIALIST Hematocrit 33.6 (L) 35.5 - 04/27/2021 DTL 44.9 % 8:39 PM INFECTION CONTROL SPECIALIST Erythrocytes 3.83 (L) 3.92 - 04/27/2021 DTL 5.13 8:39 PM INFECTION CONTROL SPECIALIST x10(12)/L MCV 87.7 78.2 - 04/27/2021 DTL 97.9 fL 8:39 PM INFECTION CONTROL SPECIALIST RBC Distrib Width 13.4 12.2 - 04/27/2021 DTL 16.1 % 8:39 PM INFECTION CONTROL SPECIALIST Platelet Count 195 157 - 371 04/27/2021 DTL x10(9)/L 8:39 PM INFECTION CONTROL SPECIALIST Leukocytes 7.7 3.4 - 9.6 04/27/2021 DTL x10(9)/L 8:39 PM INFECTION CONTROL SPECIALIST Specimen Anatomical Collection Method Collection Time Receive d Time (Source) Location / / Volume Laterality Blood (Blood, 04/27/2021 8:20 PM 04/27/20 21 8:33 Venous) INFECTION CONTROL SPECIALIST PM INFECTION CONTROL SPECIALIST Narciso RamirezSElvi LAB BLOOD ADD-ON Performing Organization Address City/[facility] Phon e Number [facility] - [address] [place], [place] [address] [facility] [place] [address] [facility] [address] (ABNORMAL) CBC with Differential, Blood (04/26/2021 8:18 PM INFECTION CONTROL SPECIALIST) [facility] gist Method Time Signature Hemoglobin 10.8 (L) 11.6 - 04/26/2021 DTL 15.0 g/dL 9:02 PM INFECTION CONTROL SPECIALIST Hematocrit 33.9 (L) 35.5 - 04/26/2021 DTL 44.9 % 9:02 PM INFECTION CONTROL SPECIALIST Erythrocytes 3.82 (L) 3.92 - 04/26/2021 DTL 5.13 9:02 PM INFECTION CONTROL SPECIALIST x10(12)/L MCV 88.7 78.2 - 04/26/2021 DTL 97.9 fL 9:02 PM INFECTION CONTROL SPECIALIST RBC Distrib Width 13.6 12.2 - 04/26/2021 DTL 16.1 % 9:02 PM INFECTION CONTROL SPECIALIST Platelet Count 182 157 - 371 04/26/2021 DTL x10(9)/L 9:02 PM INFECTION CONTROL SPECIALIST Leukocytes 7.6 3.4 - 9.6 04/26/2021 DTL x10(9)/L 9:02 PM INFECTION CONTROL SPECIALIST Neutrophils 5.19 1.56 - 04/26/2021 DTL 6.45 9:02 PM INFECTION CONTROL SPECIALIST x10(9)/L Lymphocytes 1.83 0.95 - 04/26/2021 DTL 3.07 9:02 PM INFECTION CONTROL SPECIALIST x10(9)/L Monocytes 0.41 0.26 - 04/26/2021 DTL 0.81 9:02 PM INFECTION CONTROL SPECIALIST x10(9)/L Eosinophils 0.04 0.03 - 04/26/2021 DTL 0.48 9:02 PM INFECTION CONTROL SPECIALIST x10(9)/L Basophils 0.08 0.01 - 04/26/2021 DTL 0.08 9:02 PM INFECTION CONTROL SPECIALIST x10(9)/L Specimen Anatomical Collection Method Collection Time Receive d Time (Source) Location / / Volume Laterality Blood (Blood, 04/26/2021 8:18 PM 04/26/20 8:55 Venous) INFECTION CONTROL SPECIALIST PM INFECTION CONTROL SPECIALIST Sudarshan Lomeli Jr., CABLE CUTTER AND SWAGER, C.N.P., M.S.N. LAB BLOOD AD D-ON Performing Organization Address City/State/ZIP Code Phon e Number [facility] - [address] [place], [place] [address] [facility] [place] [address] [facility] [address] (ABNORMAL) CBC without Differential (04/26/2021 2:53 PM INFECTION CONTROL SPECIALIST) [facility] gist Method Time Signature Hemoglobin 11.2 (L) 11.6 - 04/26/2021 DTL 15.0 g/dL 3:30 PM INFECTION CONTROL SPECIALIST Hematocrit 35.6 35.5 - 04/26/2021 DTL 44.9 % 3:30 PM INFECTION CONTROL SPECIALIST Erythrocytes 3.95 3.92 - 04/26/2021 DTL 5.13 3:30 PM INFECTION CONTROL SPECIALIST x10(12)/L MCV 90.1 78.2 - 04/26/2021 DTL 97.9 fL 3:30 PM INFECTION CONTROL SPECIALIST RBC Distrib Width 13.7 12.2 - 04/26/2021 DTL 16.1 % 3:30 PM INFECTION CONTROL SPECIALIST Platelet Count 143 (L) 157 - 371 04/26/2021 DTL x10(9)/L 3:30 PM INFECTION CONTROL SPECIALIST Leukocytes 7.1 3.4 - 9.6 04/26/2021 DTL x10(9)/L 3:30 PM INFECTION CONTROL SPECIALIST Specimen Anatomical Collection Method Collection Time Receive d Time (Source) Location / / Volume Laterality Blood (Blood, 04/26/2021 2:53 PM 04/26/20 21 3:22 Venous) INFECTION CONTROL SPECIALIST PM INFECTION CONTROL SPECIALIST Sudarshan Lomeli Jr., CABLE CUTTER AND SWAGER, C.N.P., M.S.N. LAB BLOOD AD D-ON Performing Organization Address City/State/[facility] Code Phon e Number [facility] - [address] [place] [address] [facility] [place] [place] [address] [facility] [address] [facility] DX Chest Portable 1 View (04/26/2021 5:56 AM INFECTION CONTROL SPECIALIST) Anatomical Region Laterality Modality Chest, Thoracic RST LOS, Thoracic ARZ LOS, Thoracic N/A Digital Radiography FLA LOS Specimen (Source) Anatomical Collection Method Collection Time Re ceived Time Location / / Volume Laterality 04/26/2021 6:25 AM INFECTION CONTROL SPECIALIST Impressions 04/26/2021 6:26 AM INFECTION CONTROL SPECIALIST No significant change since 04/25/2021. Diffuse bilateral pulmonary opacities. Postoperative changes left renu ng. NG tube tip below the diaphragm. Narrative 04/26/2021 6:26 AM INFECTION CONTROL SPECIALIST EXAM: ??DX CHEST PORTABLE 1 VIEW Procedure Note Jose Enrique Maharaj M.D. - 04/26/2021Forma tting of this note might be different from the original. EXAM: DX CHEST PORTABLE 1 VIEW IMPRESSION: No significant change since 04/25/2021. Diffuse bilateral pulmonary opacities. Postoperative changes left renu ng. NG tube tip below the diaphragm. Andrew Bazan M.D., M.S. IMG DIAGNOSTIC IMAGING PROCE DURES DX Abdomen Portable Anterior Posterior 1 View (04/25/2021 8:50 PM INFECTION CONTROL SPECIALIST) Anatomical Region Laterality Modality Abdomen, Abdominal RST LOS, Abdominal ARZ LOS, N/A Digital Radiography Abdominal FLA LOS Specimen (Source) Anatomical Collection Method Collection Time Re ceived Time Location / / Volume Laterality 04/25/2021 9:30 PM INFECTION CONTROL SPECIALIST Impressions 04/26/2021 7:28 AM INFECTION CONTROL SPECIALIST Since 04/17/2021 and 0835, no significant [...] oracolumbar spinal levocurvature. Narrative 04/26/2021 7:28 AM INFECTION CONTROL SPECIALIST EXAM: ??DX ABDOMEN PORTABLE ANTERIOR POSTERIOR [...] of the skeleton. Th oracolumbar spinal levocurvature. Jamar Martinez II DIAGNOSTIC IMAGING PROCE DURES (ABNORMAL) Basic Metabolic Panel (04/25/2021 8:29 PM INFECTION CONTROL SPECIALIST) P athologist Signature Potassium, S 3.7 3.6 - 5.2 04/25/2021 DTL mmol/L 9:11 PM INFECTION CONTROL SPECIALIST Sodium, S 146 (H) 135 - 145 04/25/2021 DTL mmol/L 9:11 PM INFECTION CONTROL SPECIALIST Chloride, S 112 (H) 98 - 107 04/25/2021 DTL mmol/L 9:11 PM INFECTION CONTROL SPECIALIST Bicarbonate, S 25 22 - 29 04/25/2021 DTL mmol/L 9:11 PM INFECTION CONTROL SPECIALIST Anion Gap 9 7 - 15 04/25/2021 DTL 9:11 PM INFECTION CONTROL SPECIALIST BUN (Blood Urea 28 (H) 6 - 21 04/25/2021 DTL Nitrogen), S mg/dL 9:11 PM INFECTION CONTROL SPECIALIST Creatinine 0.64 0.59 - 04/25/2021 DTL 1.04 mg/dL 9:11 PM INFECTION CONTROL SPECIALIST eGFR-Non >90 >=60 04/25/2021 DTL Black/ mL/min/BSA 9:11 PM INFECTION CONTROL SPECIALIST Mal[place] Comment: ----ADDITIONAL INFORMATION---- Estimated GFR calculated using the 2009 CKD_EPI creatinine equation. eGFR-Black/ >90 >=60 mL/min/BSA 2020 9:11 PM INFECTION CONTROL SPECIALIST DTL Comment: ----ADDITIONAL INFORMATION---- Estimated GFR calculated using the 2009 CKD_EPI creatinine equation. Calcium, Total, S 8.5 (L) 8.8 - 10.2 mg/dL 04/25/2021 9:11 PM INFECTION CONTROL SPECIALIST DTL Glucose, S 147 (H) 70 - 140 mg/dL 04/25/2021 9:11 PM INFECTION CONTROL SPECIALIST D TL Specimen Anatomical Collection Method Collection Time Receive d Time (Source) Location / / Volume Laterality Blood (Blood, 04/25/2021 8:29 PM 04/25/20 8:57 Venous) INFECTION CONTROL SPECIALIST PM INFECTION CONTROL SPECIALIST Andrew Bazan M.D., M.S. LAB BLOOD ADD-ON Performing Organization Address City/State/ZIP Code Phon e Number [facility] - [address] [place], [place] [address] [facility] [place] [address] [facility] [address] CBC without Differential (04/25/2021 8:29 PM INFECTION CONTROL SPECIALIST) athologist Signature Hemoglobin 11.7 11.6 - 04/25/2021 DTL 15.0 g/dL 8:52 PM INFECTION CONTROL SPECIALIST Hematocrit 37.7 35.5 - 04/25/2021 DTL 44.9 % 8:52 PM INFECTION CONTROL SPECIALIST Erythrocytes 4.15 3.92 - 04/25/2021 DTL 5.13 8:52 PM INFECTION CONTROL SPECIALIST x10(12)/L MCV 90.8 78.2 - 04/25/2021 DTL 97.9 fL 8:52 PM INFECTION CONTROL SPECIALIST RBC Distrib Width 13.9 12.2 - 04/25/2021 DTL 16.1 % 8:52 PM INFECTION CONTROL SPECIALIST Platelet Count 186 157 - 371 04/25/2021 DTL x10(9)/L 8:52 PM INFECTION CONTROL SPECIALIST Leukocytes 6.1 3.4 - 9.6 04/25/2021 DTL x10(9)/L 8:52 PM INFECTION CONTROL SPECIALIST Specimen Anatomical Collection Method Collection Time Receive d Time (Source) Location / / Volume Laterality Blood (Blood, 04/25/2021 8:29 PM 04/25/20 8:46 Venous) INFECTION CONTROL SPECIALIST PM INFECTION CONTROL SPECIALIST Andrew Bazan M.D., M.S. LAB BLOOD ADD-ON Performing Organization Address City/[facility] Phon e Number [facility] - [address] [place], [place] [address] [facility] [address] Glucose, POCT (04/25/2021 11:29 AM INFECTION CONTROL SPECIALIST) athologist Signature Glucose, POCT, 104 70 - 140 04/25/2021 PCLX B mg/dL 11:30 AM INFECTION CONTROL SPECIALIST Site ARTLINE 04/25/2021 PCLX 11:30 AM INFECTION CONTROL SPECIALIST Specimen Anatomical Collection Method Collection Time Receive d Time (Source) Location / / Volume Laterality Blood 04/25/2021 11:29 04/25/2021 AM INFECTION CONTROL SPECIALIST 11:31 AM INFECTION CONTROL SPECIALIST Unknown Provider LAB POCT ORDERABLES-MANUAL Performing Organization Address City/State/[facility] Phon e Number [facility] [address] [place] [address] [place] [address] [facility] [address] Glucose, POCT (04/25/2021 9:38 AM INFECTION CONTROL SPECIALIST) athologist Signature Glucose, POCT, 125 70 - 140 04/25/2021 PCLX B mg/dL 9:40 AM INFECTION CONTROL SPECIALIST Site ARTLINE 04/25/2021 PCLX 9:40 AM INFECTION CONTROL SPECIALIST Specimen Anatomical Collection Method Collection Time Receive d Time (Source) Location / / Volume Laterality Blood 04/25/2021 9:38 AM 9:40 INFECTION CONTROL SPECIALIST AM INFECTION CONTROL SPECIALIST Unknown Provider LAB POCT ORDERABLES-MANUAL Performing Organization Address City/State/ZIP Code Phon e Number POC [facility] [address] [place] [address] PCLX [facility] [place] [address] [place] POC [address] DX Abdomen Portable Anterior Posterior 1 View (04/25/2021 8:40 AM INFECTION CONTROL SPECIALIST) Anatomical Region Laterality Modality Abdomen, Abdominal RST LOS, Abdominal ARZ LOS, N/A Digital Radiography Abdominal FLA LOS Specimen (Source) Anatomical Collection Method Collection Time Re ceived Time Location / / Volume Laterality 04/25/2021 8:42 AM INFECTION CONTROL SPECIALIST Impressions 04/25/2021 8:45 AM INFECTION CONTROL SPECIALIST Dilatation of multiple loops of small [...] Left thoracotom y. Narrative 04/25/2021 8:45 AM INFECTION CONTROL SPECIALIST EXAM: ??DX ABDOMEN PORTABLE ANTERIOR POSTERIOR [...] Delgado APRN, C.N.P. IMG DIAGNOSTIC IMAGING PROCE DURES Patient Status (04/25/2021 4:46 AM INFECTION CONTROL SPECIALIST) P athologist Signature O2 Flow 4.5 L/min 04/25/2021 STMA 4:50 AM INFECTION CONTROL SPECIALIST Device BPAP 04/25/2021 STMA 4:50 AM INFECTION CONTROL SPECIALIST Spont. 22 04/25/2021 STMA breaths/min 4:50 AM INFECTION CONTROL SPECIALIST Specimen Anatomical Collection Method Collection Time Receive d Time (Source) Location / / Volume Laterality Blood 04/25/2021 4:46 AM 4:50 INFECTION CONTROL SPECIALIST AM INFECTION CONTROL SPECIALIST Alexis Peraza P.A.-C. LAB BLOOD NON ADD-ON Performing Organization Address City/State/ZIP Code Phon e Number [facility] - [address] [place], [place] [address] [facility] [place] [address] [facility] [address] (ABNORMAL) Blood Gas with Coox, Arterial (04/25/2021 4:46 AM INFECTION CONTROL SPECIALIST) P athologist Signature pO2 72 (L) 83 - 108 04/25/2021 STMA mm Hg 4:52 AM INFECTION CONTROL SPECIALIST pCO2 43 32 - 45 mm 04/25/2021 STMA Hg 4:52 AM INFECTION CONTROL SPECIALIST pH 7.44 7.35 - 04/25/2021 STMA 7.45 pH 4:52 AM INFECTION CONTROL SPECIALIST Base Excess 6 (H) -2 - 3 04/25/2021 STMA mmol/L 4:52 AM INFECTION CONTROL SPECIALIST HCO3 30 (H) 22 - 26 04/25/2021 [facility]MA mmol/L 4:52 AM INFECTION CONTROL SPECIALIST Hemoglobin, B 11.1 (L) 11.6 - 04/25/2021 STMA 15.0 g/dL 4:52 AM INFECTION CONTROL SPECIALIST O2Hb 93.6 (L) 94.0 - 04/25/2021 STMA 98.0 % 4:52 AM INFECTION CONTROL SPECIALIST COHb 1.5 <3.0 % 04/25/2021 STMA 4:52 AM INFECTION CONTROL SPECIALIST MetHb <1.0 <1.5 % 04/25/2021 STMA 4:52 AM INFECTION CONTROL SPECIALIST CtO2 14.7 (L) 18.0 - 04/25/2021 STMA 21.0 vol % 4:52 AM INFECTION CONTROL SPECIALIST Arterial L-Radial 04/25/2021 [facility] Sample Site 4:52 AM INFECTION CONTROL SPECIALIST Comment: Felice's test abnormal. Specimen Anatomical Collection Method Collection Time Receive d Time (Source) Location / / Volume Laterality Blood (Blood, 04/25/2021 4:46 AM 04/25/20 4:50 Arterial) INFECTION CONTROL SPECIALIST AM INFECTION CONTROL SPECIALIST Alexis Peraza P.A.-C. LAB BLOOD NON ADD-ON Performing Organization Address City/[facility]/ZIP Code Phon e Number [facility] - [address] [place], [place] [address] [place] [address] [facility] [address] Clozapine (Clozaril), Level (04/25/2021 4:40 AM INFECTION CONTROL SPECIALIST) Patholo gist Method Time Signature Clozapine 395 350 - 600 ng/mL 04/25/2021 [facility] 6:15 PM INFECTION CONTROL SPECIALIST Norclozapine 186 Not well 04/25/2021 [facility] established 6:15 PM INFECTION CONTROL SPECIALIST ng/mL Clozapine+Norclo 581 Not well 04/25/2021 [facility] zapine Total established 6:15 PM INFECTION CONTROL SPECIALIST ng/mL Comment: ----ADDITIONAL INFORMATION---- This test was developed and its performa nce characteristics determined by [facility] in a manner consistent with CLIA requirements. This test has not been cleared or approved by the U.[place]. Jeff d and Drug Administration. Specimen Anatomical Collection Method Collection Time Receive d Time (Source) Location / / Volume Laterality Blood (Blood, 04/25/2021 4:40 AM 04/25/20 Venous) INFECTION CONTROL SPECIALIST 12:48 PM INFECTION CONTROL SPECIALIST Alexis Peraza P.A.-C. LAB BLOOD NON ADD-ON Performing Organization Address City/State/ZIP Code Phon e Number [facility] [address] [place], [place] [address] [facility] [place] [address] Laboratory Medicine and Pathology [address] ART (ABNORMAL) Magnesium (04/25/2021 4:40 AM INFECTION CONTROL SPECIALIST) P athologist Signature Magnesium, S 2.4 (H) 1.7 - 2.3 04/25/2021 DTL mg/dL 5:53 AM INFECTION CONTROL SPECIALIST Specimen Anatomical Collection Method Collection Time Receive d Time (Source) Location / / Volume Laterality Blood (Blood, 04/25/2021 4:40 AM 04/25/20 5:30 Venous) INFECTION CONTROL SPECIALIST AM INFECTION CONTROL SPECIALIST Alexis Peraza P.A.-C. LAB BLOOD ADD-ON Performing Organization Address City/[facility] Phon e Number [facility] - [address] (ABNORMAL) CBC without Differential (04/25/2021 4:40 AM INFECTION CONTROL SPECIALIST) Patholo gist Method Time Signature Hemoglobin 10.9 (L) 11.6 - 04/25/2021 DTL 15.0 g/dL 5:22 AM INFECTION CONTROL SPECIALIST Hematocrit 34.6 (L) 35.5 - 04/25/2021 DTL 44.9 % 5:22 AM INFECTION CONTROL SPECIALIST Erythrocytes 3.84 (L) 3.92 - 04/25/2021 DTL 5.13 5:22 AM INFECTION CONTROL SPECIALIST x10(12)/L MCV 90.1 78.2 - 04/25/2021 DTL 97.9 fL 5:22 AM INFECTION CONTROL SPECIALIST RBC Distrib Width 14.0 12.2 - 04/25/2021 DTL 16.1 % 5:22 AM INFECTION CONTROL SPECIALIST Platelet Count 186 157 - 371 04/25/2021 DTL x10(9)/L 5:22 AM INFECTION CONTROL SPECIALIST Leukocytes 5.5 3.4 - 9.6 04/25/2021 DTL x10(9)/L 5:22 AM INFECTION CONTROL SPECIALIST Specimen Anatomical Collection Method Collection Time Receive d Time (Source) Location / / Volume Laterality Blood (Blood, 04/25/2021 4:40 AM 04/25/20 5:12 Venous) INFECTION CONTROL SPECIALIST AM INFECTION CONTROL SPECIALIST Alexis Peraza P.A.-C. LAB BLOOD ADD-ON Performing Organization Address City/State/ZIP Code Phon e Number [facility] - [address] (ABNORMAL) Basic Metabolic Panel (04/25/2021 4:40 AM INFECTION CONTROL SPECIALIST) P athologist Signature Potassium, S 4.2 3.6 - 5.2 04/25/2021 DTL mmol/L 5:53 AM INFECTION CONTROL SPECIALIST Sodium, S 147 (H) 135 - 145 04/25/2021 DTL mmol/L 5:53 AM INFECTION CONTROL SPECIALIST Chloride, S 111 (H) 98 - 107 04/25/2021 DTL mmol/L 5:53 AM INFECTION CONTROL SPECIALIST Bicarbonate, S 27 22 - 29 04/25/2021 DTL mmol/L 5:53 AM INFECTION CONTROL SPECIALIST Anion Gap 9 7 - 15 04/25/2021 DTL 5:53 AM INFECTION CONTROL SPECIALIST BUN (Blood Urea 35 (H) 6 - 21 04/25/2021 DTL Nitrogen), S mg/dL 5:53 AM INFECTION CONTROL SPECIALIST Creatinine 0.68 0.59 - 04/25/2021 DTL 1.04 mg/dL 5:53 AM INFECTION CONTROL SPECIALIST eGFR-Non >90 >=60 04/25/2021 DTL Black/ mL/min/BSA 5:53 AM INFECTION CONTROL SPECIALIST Maldivian Comment: ----ADDITIONAL INFORMATION---- Estimated GFR calculated using the 2009 CKD_EPI creatinine equation. eGFR-Black/ >90 >=60 mL/min/BSA 2020 5:53 AM INFECTION CONTROL SPECIALIST DTL Comment: ----ADDITIONAL INFORMATION---- Estimated GFR calculated using the 2009 CKD_EPI creatinine equation. Calcium, Total, S 8.8 8.8 - 10.2 mg/dL 04/25/2021 5:53 AM INFECTION CONTROL SPECIALIST DTL Glucose, S 133 70 - 140 mg/dL 04/25/2021 5:53 AM INFECTION CONTROL SPECIALIST D TL Specimen Anatomical Collection Method Collection Time Receive d Time (Source) Location / / Volume Laterality Blood (Blood, 04/25/2021 4:40 AM 04/25/20 5:30 Venous) INFECTION CONTROL SPECIALIST AM INFECTION CONTROL SPECIALIST Alexis Peraza P.A.-C. LAB BLOOD ADD-ON Performing Organization Address City/State/ZIP Code Phon e Number [facility] - 200 [place], [place] [address] [facility] [place] [address] [facility] [address] [facility] Thromboelastograph, Kaolin, Blood (04/25/2021 4:38 AM INFECTION CONTROL SPECIALIST) P athologist Signature R, Kaolin, TEG 5.5 4.0 - 9.0 04/25/2021 STMA min 5:42 AM INFECTION CONTROL SPECIALIST K, Kaolin, TEG 1.5 0.9 - 1.7 04/25/2021 STMA min 5:42 AM INFECTION CONTROL SPECIALIST Angle, Kaolin, 72.5 66.2 - 80.3 04/25/2021 STMA TEG degrees 5:42 AM INFECTION CONTROL SPECIALIST MA Kaolin, 73.9 55.2 - 77.0 04/25/2021 STMA TEG mm 5:42 AM INFECTION CONTROL SPECIALIST Ly30, Kaolin, 1.3 0.0 - 4.8 % 04/25/2021 STMA TEG 5:42 AM INFECTION CONTROL SPECIALIST Specimen Anatomical Collection Method Collection Time Receive d Time (Source) Location / / Volume Laterality Blood (Blood, 04/25/2021 4:38 AM 04/25/20 4:38 Venous) INFECTION CONTROL SPECIALIST AM INFECTION CONTROL SPECIALIST Haley Canales M.D. LAB BLOOD NON ADD-ON Performing Organization Address City/State/ZIP Code Phon e Number [facility] - [address] [place] [address] [place] [address] [facility] [address] DX Chest Portable 1 View (04/25/2021 4:11 AM INFECTION CONTROL SPECIALIST) Anatomical Region Laterality Modality Chest, Thoracic RST LOS, Thoracic ARZ LOS, Thoracic N/A Digital Radiography FLA LOS Specimen (Source) Anatomical Collection Method Collection Time Re ceived Time Location / / Volume Laterality 04/25/2021 4:13 AM INFECTION CONTROL SPECIALIST Impressions 04/25/2021 9:31 AM INFECTION CONTROL SPECIALIST Since yesterday, enteric tube has been repositioned with tip and sidehole below the diaphragm. Postoperat armida changes left lung. Low lung volumes with bilateral patchy airspace opacities . No pneumothorax. Prominent fat pad cardiac apex Narrative 04/25/2021 9:31 AM INFECTION CONTROL SPECIALIST EXAM: ??DX CHEST PORTABLE 1 VIEW [...] apex Alexis Peraza P.A.-C. IMG DIAGNOSTIC IMAGING [place] OCEDURES Glucose, POCT (04/25/2021 3:34 AM INFECTION CONTROL SPECIALIST) athologist Signature Glucose, POCT, 129 70 - 140 04/25/2021 PCLX B mg/dL 3:35 AM INFECTION CONTROL SPECIALIST Last Intake NPO 04/25/2021 PCLX 3:35 AM INFECTION CONTROL SPECIALIST Specimen Anatomical Collection Method Collection Time Receive d Time (Source) Location / / Volume Laterality Blood 04/25/2021 3:34 AM 3:36 INFECTION CONTROL SPECIALIST AM INFECTION CONTROL SPECIALIST Unknown Provider LAB POCT ORDERABLES-MANUAL Performing Organization Address City/[facility]/ZIP Code Phon e Number POC [facility] [address] [place] [address] PCL[place], [place] [id number] [place] [address] POC 200 [facility] Glucose, POCT (04/25/2021 12:06 AM INFECTION CONTROL SPECIALIST) athologist Signature Glucose, POCT, 118 70 - 140 04/25/2021 PCLX B mg/dL 12:08 AM INFECTION CONTROL SPECIALIST Last Intake NPO 04/25/2021 PCLX 12:08 AM INFECTION CONTROL SPECIALIST Specimen Anatomical Collection Method Collection Time Receive d Time (Source) Location / / Volume Laterality Blood 04/25/2021 12:06 04/25/2021 AM INFECTION CONTROL SPECIALIST 12:08 AM INFECTION CONTROL SPECIALIST Unknown Provider LAB POCT ORDERABLES-MANUAL Performing Organization Address City/[facility] Phon e Number POC [facility] [address] [place] [address] [place] [address] [place] POC 200 [facility] DX Abdomen Portable Anterior Posterior 1 View (2021 11:05 PM INFECTION CONTROL SPECIALIST) Anatomical Region Laterality Modality Abdomen, Abdominal RST LOS, Abdominal ARZ LOS, N/A Digital Radiography Abdominal FLA LOS Specimen (Source) Anatomical Collection Method Collection Time Re ceived Time Location / / Volume Laterality 04/25/2021 12:16 AM INFECTION CONTROL SPECIALIST Impressions 04/25/2021 9:06 AM INFECTION CONTROL SPECIALIST Since earlier today at 1411 hours, Gastrografin is located within stomach and the dilated small bowel in t he abdomen. No Gastrografin in the colon. Enteric tube with sidehole just d istal to the gastroesophageal junction. Narrative 04/25/2021 9:06 AM INFECTION CONTROL SPECIALIST EXAM: ??DX ABDOMEN PORTABLE ANTERIOR POSTERIOR [...] junction. Alexis Peraza P.A.-C. IMG DIAGNOSTIC IMAGING [place] OCEDURES (ABNORMAL) Prothrombin Time (PT) (2021 6:57 PM INFECTION CONTROL SPECIALIST) Patholo gist Method Time Signature Prothrombin 13.5 (H) 9.4 - 12.5 2021 STMA Time, P sec 7:17 PM INFECTION CONTROL SPECIALIST INR 1.2 0.9 - 1.1 2021 STMA 7:17 PM INFECTION CONTROL SPECIALIST Comment: ----ADDITIONAL INFORMATION---- Standard intensity warfarin therapeutic range: 2.0 to 3.0 ?? High intensity warfarin therapeutic rang e: 2.5 to 3.5 Specimen Anatomical Collection Method Collection Time Receive d Time (Source) Location / / Volume Laterality Blood (Blood, 2021 6:57 PM 04/24/20 7:01 Venous) INFECTION CONTROL SPECIALIST PM INFECTION CONTROL SPECIALIST Alexis Peraza P.A.-C. LAB BLOOD ADD-ON Performing Organization Address City/State/ZIP Code Phon e Number [facility] - [address] [place], [place] [address] [facility] [place] [address] [facility] [address] Lactate (2021 6:57 PM INFECTION CONTROL SPECIALIST) P athologist Signature Lactate, P 1.4 0.5 - 2.2 2021 STMA mmol/L 7:13 PM INFECTION CONTROL SPECIALIST Specimen Anatomical Collection Method Collection Time Receive d Time (Source) Location / / Volume Laterality Blood (Blood, 2021 6:57 PM 04/24/20 7:01 Venous) INFECTION CONTROL SPECIALIST PM INFECTION CONTROL SPECIALIST Alexis Peraza P.A.-C. LAB BLOOD NON ADD-ON Performing Organization Address City/[facility] Phon e Number [facility] - 200 [place], [place] [address] [place] [address] CBC without Differential (2021 6:57 PM INFECTION CONTROL SPECIALIST) athologist Signature Hemoglobin 11.7 11.6 - 2021 STMA 15.0 g/dL 7:04 PM INFECTION CONTROL SPECIALIST Hematocrit 36.7 35.5 - 2021 STMA 44.9 % 7:04 PM INFECTION CONTROL SPECIALIST Erythrocytes 4.05 3.92 - 2021 STMA 5.13 7:04 PM INFECTION CONTROL SPECIALIST x10(12)/L MCV 90.6 78.2 - 2021 STMA 97.9 fL 7:04 PM INFECTION CONTROL SPECIALIST RBC Distrib Width 14.1 12.2 - 2021 STMA 16.1 % 7:04 PM INFECTION CONTROL SPECIALIST Platelet Count 185 157 - 371 2021 STMA x10(9)/L 7:04 PM INFECTION CONTROL SPECIALIST Leukocytes 5.6 3.4 - 9.6 2021 STMA x10(9)/L 7:56 PM INFECTION CONTROL SPECIALIST Comment: Results confirmed by smear. Specimen Anatomical Collection Method Collection Time Receive d Time (Source) Location / / Volume Laterality Blood (Blood, 2021 6:57 PM 04/24/20 7:01 Venous) INFECTION CONTROL SPECIALIST PM INFECTION CONTROL SPECIALIST Alexis Peraza P.A.-C. LAB BLOOD ADD-ON Performing Organization Address City/State/[facility] Code Phon e Number [facility] - 200 [place], [place] [address] [place] [address] (ABNORMAL) Basic Metabolic Panel (2021 6:57 PM INFECTION CONTROL SPECIALIST) athologist Signature Potassium, P 3.7 3.6 - 5.2 2021 STMA mmol/L 7:17 PM INFECTION CONTROL SPECIALIST Sodium, P 144 135 - 145 2021 STMA mmol/L 7:17 PM INFECTION CONTROL SPECIALIST Chloride, P 107 98 - 107 2021 STMA mmol/L 7:17 PM INFECTION CONTROL SPECIALIST Bicarbonate, P 27 22 - 29 2021 STMA mmol/L 7:17 PM INFECTION CONTROL SPECIALIST Anion Gap, P 10 7 - 15 2021 STMA 7:17 PM INFECTION CONTROL SPECIALIST BUN (Blood Urea 34 (H) 6 - 21 2021 STMA Nitrogen), P mg/dL 7:17 PM INFECTION CONTROL SPECIALIST Creatinine 0.65 0.59 - 2021 STMA 1.04 mg/dL 7:17 PM INFECTION CONTROL SPECIALIST eGFR-Black/Afri >90 >=60 2021 STMA can Maldivian mL/min/BSA 7:17 PM INFECTION CONTROL SPECIALIST Comment: ----ADDITIONAL INFORMATION---- Estimated GFR calculated using the 2009 CKD_EPI creatinine equation. eGFR Non-Black/ >90 >=60 mL/min/BSA 2021 7:17 PM INFECTION CONTROL SPECIALIST STMA Comment: ----ADDITIONAL INFORMATION---- Estimated GFR calculated using the 2009 CKD_EPI creatinine equation. Calcium, Total, P 8.9 8.8 - 10.2 mg/dL 2021 7:17 PM INFECTION CONTROL SPECIALIST STMA Glucose, P 146 (H) 70 - 140 mg/dL 2021 7:17 PM INFECTION CONTROL SPECIALIST S TMA Specimen Anatomical Collection Method Collection Time Receive d Time (Source) Location / / Volume Laterality Blood (Blood, 2021 6:57 PM 04/24/20 7:01 Venous) INFECTION CONTROL SPECIALIST PM INFECTION CONTROL SPECIALIST Alexis Peraza P.A.-C. LAB BLOOD ADD-ON Performing Organization Address City/State/ZIP Code Phon e Number [facility] - [address] [place], [place] [address] [facility] [place] [address] [facility] [address] Clozapine (Clozaril), Level (2021 2:55 PM INFECTION CONTROL SPECIALIST) [facility] Method Time Signature Clozapine 537 350 - 600 ng/mL 04/25/2021 SDSC 6:15 PM INFECTION CONTROL SPECIALIST Norclozapine 237 Not well 04/25/2021 SDSC established 6:15 PM INFECTION CONTROL SPECIALIST ng/mL Clozapine+Norclo 774 Not well 04/25/2021 [facility] zapine Total established 6:15 PM INFECTION CONTROL SPECIALIST ng/mL Comment: ----ADDITIONAL INFORMATION---- This test was developed and its performa nce characteristics determined by [facility] in a manner consistent with CLIA requirements. This test has not been cleared or approved by the [place] d and Drug Administration. Specimen Anatomical Collection Method Collection Time Receive d Time (Source) Location / / Volume Laterality Blood (Blood, 2021 2:55 PM 04/25/20 Venous) INFECTION CONTROL SPECIALIST 12:48 PM INFECTION CONTROL SPECIALIST Sonido Woodall P.A.-C. LAB BLOOD NON ADD-ON Performing Organization Address City/State/ZIP Code Phon e Number [facility] [address] [place], [place] [address] SUPPORT CENTER [facility] [place] [address] Laboratory Medicine and Pathology [address] ART Troponin T, 2H/6H, 5th Gen (2021 2:55 PM INFECTION CONTROL SPECIALIST) [facility] gist Method Time Signature Troponin T, 2 10 <=10 ng/L 2021 STMA hr, 5th gen 3:28 PM INFECTION CONTROL SPECIALIST 2H Delta -1 ng/L 2021 STMA 3:28 PM INFECTION CONTROL SPECIALIST 2H Delta Not Changing 2021 STMA Interp 3:28 PM INFECTION CONTROL SPECIALIST Troponin T, 6 CANCELED ng/L 2021 STMA hr, 5th gen 3:28 PM INFECTION CONTROL SPECIALIST Comment: Result canceled by the ancillar y. Specimen Anatomical Collection Method Collection Time Receive d Time (Source) Location / / Volume Laterality Blood (Blood, 2021 2:55 PM 04/24/20 3:00 Venous) INFECTION CONTROL SPECIALIST PM INFECTION CONTROL SPECIALIST Narrative [facility] - 2021 3:28 PM INFECTION CONTROL SPECIALIST Specimen Information: Specimen ID: [id number] Specimen Type: Blood Specimen Collection Start Date: 021 ??2:55 PM Specimen Received Date: 2021 ??3: 00 PM Specimen ID: [id number] Specimen Type: Blood Specimen Collection Start Date: 021 ??3:28 PM Specimen Received Date: 2021 ??3: 28 PM Alexis Peraza P.A.-C. LAB BLOOD TROPONIN Performing Organization Address City/State/ZIP Code Phon e Number [facility] - [address] [place], [place] [address] [facility] [place] [address] [facility] [address] SARS Coronavirus 2, RNA, Rapid POC, V Asymptomatic (2021 2:29 PM INFECTION CONTROL SPECIALIST) [facility] Method Time Signature SARS Undetected Undetected 2021 DTLR Coronavirus-2 2:49 PM INFECTION CONTROL SPECIALIST , RNA, Rapid POC, V Comment: Negative for SARS-CoV-2. The [facility] COVID-19 test is a molecular erin t for SARS-CoV-2, the virus that causes COVID- 19. A Negative result means that the [facility] COV ID-19 test did not detect SARS-CoV-2 virus in your sample. [facility] COVID-19 test uses the [employer] Software System. This test has received Emergency Use Authorization (EUA) by the U.S. Food and Drug Administration (FDA) and is used per man acturer instructions. Performance characteristic s were verified by [facility] in a manner consistent with CLIA requirements. Fact sheets for this Emerg ency Use Authorization (EUA) can be found at the following links: Providers: https://[employer].com/documentation/prov iders.pdf Patients: https://[employer]com/documentation/dinora ents.pdf SARS Coronavirus 2, Source Nasopharynx DEFAULT 2021 2:49 PM INFECTION CONTROL SPECIALIST DTLR Specimen Anatomical Collection Method Collection Time Receive d Time (Source) Location / / Volume Laterality Varies 2021 2:29 PM 2:29 (Nasopharynx) INFECTION CONTROL SPECIALIST PM INFECTION CONTROL SPECIALIST Alexis Peraza P.A.-C. LAB MICROBIOLOGY - GENERA L ORDERABLES Performing Organization Address City/State/ZIP Code Phon e Number PERFORMING LABS, REF [place] [address] INTERFACE Ref Interface [address] [facility] DTLR Performing Labs, [place] [address] Interface [address] [facility] DX Abdomen Portable Anterior Posterior 1 View (2021 2:17 PM INFECTION CONTROL SPECIALIST) Anatomical Region Laterality Modality Abdomen, Abdominal RST LOS, Abdominal ARZ LOS, N/A Digital Radiography Abdominal FLA LOS Specimen (Source) Anatomical Collection Method Collection Time Re ceived Time Location / / Volume Laterality 2021 2:22 PM INFECTION CONTROL SPECIALIST Impressions 2021 2:23 PM INFECTION CONTROL SPECIALIST Gastric tube advanced with the tip and side-port now in the proximal stomach. Gas-filled, dilated lo ops of small bowel. Narrative 2021 2:23 PM INFECTION CONTROL SPECIALIST EXAM: ??DX ABDOMEN PORTABLE ANTERIOR POSTERIOR 1 VIEW Procedure Note Willie Kennedy M.D. - 2021Formatt ing of this note might be different from the original. EXAM: DX ABDOMEN PORTABLE ANTERIOR POSTE RIOR 1 VIEW IMPRESSION: Gastric tube advanced with the tip and s sybil-port now in the proximal stomach. Gas-filled, dilated lo ops of small bowel. Alexis Peraza P.A.-C. IMG DIAGNOSTIC IMAGING [place] OCEDURES Patient Status (2021 1:00 PM INFECTION CONTROL SPECIALIST) athologist Signature O2 Flow 3.0L L/min 2021 STMA 1:08 PM INFECTION CONTROL SPECIALIST Device NC 2021 STMA 1:08 PM INFECTION CONTROL SPECIALIST Spont. 27 2021 STMA breaths/min 1:08 PM INFECTION CONTROL SPECIALIST Specimen Anatomical Collection Method Collection Time Receive d Time (Source) Location / / Volume Laterality Blood 2021 1:00 PM 1:08 INFECTION CONTROL SPECIALIST PM INFECTION CONTROL SPECIALIST Alexis Peraza P.A.-C. LAB BLOOD NON ADD-ON Performing Organization Address City/State/ZIP Code Phon e Number [facility] - [address] [place], [place] [address] [facility] [place] [address] [facility] [address] Calcium, Ionized (2021 1:00 PM INFECTION CONTROL SPECIALIST) athologist Signature Calcium, 5.00 4.65 - 5.30 2021 STMA Ionized, B mg/dL 1:11 PM INFECTION CONTROL SPECIALIST Specimen Anatomical Collection Method Collection Time Receive d Time (Source) Location / / Volume Laterality Blood (Blood, 2021 1:00 PM 04/24/20 21 1:08 Venous) INFECTION CONTROL SPECIALIST PM INFECTION CONTROL SPECIALIST Alexis Peraza P.A.-C. LAB BLOOD NON ADD-ON Performing Organization Address City/State/[facility] Code Phon e Number [facility] - [address] [facility] (ABNORMAL) Blood Gas with Coox, Arterial (2021 1:00 PM INFECTION CONTROL SPECIALIST) P athologist Signature pO2 72 (L) 83 - 108 2021 STMA mm Hg 1:11 PM INFECTION CONTROL SPECIALIST pCO2 40 32 - 45 mm 2021 STMA Hg 1:11 PM INFECTION CONTROL SPECIALIST pH 7.40 7.35 - 2021 STMA 7.45 pH 1:11 PM INFECTION CONTROL SPECIALIST Base Excess 1 -2 - 3 2021 STMA mmol/L 1:11 PM INFECTION CONTROL SPECIALIST HCO3 25 22 - 26 2021 STMA mmol/L 1:11 PM INFECTION CONTROL SPECIALIST Hemoglobin, B 12.6 11.6 - 2021 STMA 15.0 g/dL 1:11 PM INFECTION CONTROL SPECIALIST O2Hb 92.3 (L) 94.0 - 2021 STMA 98.0 % 1:11 PM INFECTION CONTROL SPECIALIST COHb 1.1 <3.0 % 2021 STMA 1:11 PM INFECTION CONTROL SPECIALIST MetHb 1.1 <1.5 % 2021 STMA 1:11 PM INFECTION CONTROL SPECIALIST CtO2 16.4 (L) 18.0 - 2021 STMA 21.0 vol % 1:11 PM INFECTION CONTROL SPECIALIST Arterial R-Radial 2021 STMA Sample Site 1:11 PM INFECTION CONTROL SPECIALIST Specimen Anatomical Collection Method Collection Time Receive d Time (Source) Location / / Volume Laterality Blood (Blood, 2021 1:00 PM 04/24/20 1:08 Arterial) INFECTION CONTROL SPECIALIST PM INFECTION CONTROL SPECIALIST Alexis Peraza P.A.-C. LAB BLOOD NON ADD-ON Performing Organization Address City/State/ZIP Code Phon e Number [facility] - [address] [place] [address] [facility] [place] [address] [place] [address] [facility] (ABNORMAL) Hepatic Function Panel (2021 12:57 PM INFECTION CONTROL SPECIALIST) [facility] Method Time Signature Bilirubin, Total, S 0.5 <=1.2 2021 DTL mg/dL 2:25 PM INFECTION CONTROL SPECIALIST Bilirubin, Direct, S <0.2 0.0 - 0.3 2021 DTL mg/dL 2:25 PM INFECTION CONTROL SPECIALIST Aspartate 18 8 - 43 2021 DTL Aminotransferase U/L 2:25 PM INFECTION CONTROL SPECIALIST (AST), S Alanine 21 7 - 45 2021 DTL Aminotransferase U/L 2:25 PM INFECTION CONTROL SPECIALIST (ALT), S Alkaline 123 (H) 35 - 104 2021 DTL Phosphatase, S U/L 2:25 PM INFECTION CONTROL SPECIALIST Albumin, S 4.2 3.5 - 5.0 2021 DTL g/dL 2:25 PM INFECTION CONTROL SPECIALIST Protein, Total, S 6.7 6.3 - 7.9 2021 DTL g/dL 2:25 PM INFECTION CONTROL SPECIALIST Specimen Anatomical Collection Method Collection Time Receive d Time (Source) Location / / Volume Laterality Blood (Blood, 2021 12:57 2021 2:05 Venous) PM INFECTION CONTROL SPECIALIST PM INFECTION CONTROL SPECIALIST Alexis Peraza P.A.-C. LAB BLOOD ADD-ON Performing Organization Address City/State/ZIP Code Phon e Number [facility] - [address] [place] [address] [facility] [place] [address] Formerly [facility] 200 [facility] Type and Screen (with reflex Antibody ID) (2021 12:57 PM INFECTION CONTROL SPECIALIST) [facility] Method Time Signature ABORh O Pos Not 2021 STRM applicable 1:33 PM INFECTION CONTROL SPECIALIST Antibody Negative Negative 2021 STRM Screen 1:43 PM INFECTION CONTROL SPECIALIST Type & Screen 04/27/2021 2021 STRM Expiration 23:59 1:33 PM INFECTION CONTROL SPECIALIST Testing Alberto DEFAULT 2021 STRM Location 1:07 PM INFECTION CONTROL SPECIALIST Specimen Anatomical Collection Method Collection Time Receive d Time (Source) Location / / Volume Laterality Blood (Blood, 2021 12:57 2021 1:07 Venous) PM INFECTION CONTROL SPECIALIST PM INFECTION CONTROL SPECIALIST Alexis Peraza P.A.-C. LAB BLOOD BANK TEST ORDER MARIA E Performing Organization Address City/[facility] Phon e Number [facility] - [address] [place], [place] [address] [facility] [place] [address] CBC without Differential (2021 12:57 PM INFECTION CONTROL SPECIALIST) athologist Signature Hemoglobin 12.8 11.6 - 2021 DTL 15.0 g/dL 2:11 PM INFECTION CONTROL SPECIALIST Hematocrit 41.2 35.5 - 2021 DTL 44.9 % 2:11 PM INFECTION CONTROL SPECIALIST Erythrocytes 4.54 3.92 - 2021 DTL 5.13 2:11 PM INFECTION CONTROL SPECIALIST x10(12)/L MCV 90.7 78.2 - 2021 DTL 97.9 fL 2:11 PM INFECTION CONTROL SPECIALIST RBC Distrib Width 14.2 12.2 - 2021 DTL 16.1 % 2:11 PM INFECTION CONTROL SPECIALIST Platelet Count 199 157 - 371 2021 DTL x10(9)/L 2:11 PM INFECTION CONTROL SPECIALIST Leukocytes 5.9 3.4 - 9.6 2021 DTL x10(9)/L 2:11 PM INFECTION CONTROL SPECIALIST Specimen Anatomical Collection Method Collection Time Receive d Time (Source) Location / / Volume Laterality Blood (Blood, 2021 12:57 2021 2:01 Venous) PM INFECTION CONTROL SPECIALIST PM INFECTION CONTROL SPECIALIST Alexis Peraza P.A.-C. LAB BLOOD ADD-ON Performing Organization Address City/[facility] Phon e Number [facility] - 200 [place], [place] [address] [facility] DTL [address] (ABNORMAL) Basic Metabolic Panel (2021 12:57 PM INFECTION CONTROL SPECIALIST) athologist Signature Potassium, S 4.1 3.6 - 5.2 2021 DTL mmol/L 2:25 PM INFECTION CONTROL SPECIALIST Sodium, S 148 (H) 135 - 145 2021 DTL mmol/L 2:25 PM INFECTION CONTROL SPECIALIST Chloride, S 112 (H) 98 - 107 2021 DTL mmol/L 2:25 PM INFECTION CONTROL SPECIALIST Bicarbonate, S 23 22 - 29 2021 DTL mmol/L 2:25 PM INFECTION CONTROL SPECIALIST Anion Gap 13 7 - 15 2021 DTL 2:25 PM INFECTION CONTROL SPECIALIST BUN (Blood Urea 35 (H) 6 - 21 2021 DTL Nitrogen), S mg/dL 2:25 PM INFECTION CONTROL SPECIALIST Creatinine 0.95 0.59 - 2021 DTL 1.04 mg/dL 2:25 PM INFECTION CONTROL SPECIALIST eGFR-Non 63 >=60 2021 DTL Black/ mL/min/BSA 2:25 PM INFECTION CONTROL SPECIALIST [place] Comment: ----ADDITIONAL INFORMATION---- Estimated GFR calculated using the 2009 CKD_EPI creatinine equation. eGFR-Black/ 72 >=60 mL/min/BSA 2020 2:25 PM INFECTION CONTROL SPECIALIST DTL Comment: ----ADDITIONAL INFORMATION---- Estimated GFR calculated using the 2009 CKD_EPI creatinine equation. Calcium, Total, S 9.2 8.8 - 10.2 mg/dL 2021 2:25 PM INFECTION CONTROL SPECIALIST DTL Glucose, S 145 (H) 70 - 140 mg/dL 2021 2:25 PM INFECTION CONTROL SPECIALIST D TL Specimen Anatomical Collection Method Collection Time Receive d Time (Source) Location / / Volume Laterality Blood (Blood, 2021 12:57 2021 2:05 Venous) PM INFECTION CONTROL SPECIALIST PM INFECTION CONTROL SPECIALIST Alexis Peraza P.A.-C. LAB BLOOD ADD-ON Performing Organization Address City/State/ZIP Code Phon e Number [facility] - [address] [place], [place] [address] [facility] [place] [address] [facility] [address] (ABNORMAL) Troponin T, Baseline, 5th gen (2021 12:57 PM INFECTION CONTROL SPECIALIST) P athologist Signature Troponin T, 11 (H) <=10 ng/L 2021 STMA Baseline, 5th 1:28 PM INFECTION CONTROL SPECIALIST gen Specimen Anatomical Collection Method Collection Time Receive d Time (Source) Location / / Volume Laterality Blood (Blood, 2021 12:57 2021 1:08 Venous) PM INFECTION CONTROL SPECIALIST PM INFECTION CONTROL SPECIALIST Alexis Peraza P.A.-C. LAB BLOOD TROPONIN Performing Organization Address [facility] Phon e Number [facility] - [address] [place], [place] [address] [place] [address] (ABNORMAL) Lactate (2021 12:57 PM INFECTION CONTROL SPECIALIST) P athologist Signature Lactate, P 2.4 (H) 0.5 - 2.2 2021 STMA mmol/L 1:25 PM INFECTION CONTROL SPECIALIST Specimen Anatomical Collection Method Collection Time Receive d Time (Source) Location / / Volume Laterality Blood (Blood, 2021 12:57 2021 1:08 Venous) PM INFECTION CONTROL SPECIALIST PM INFECTION CONTROL SPECIALIST Alexis Peraza P.A.-C. LAB BLOOD NON ADD-ON Performing Organization Address City/[facility] Phon e Number [facility] - [address] [place], [place] [address] [place] [address] (ABNORMAL) Thromboelastograph, Kaolin, Blood (2021 12:55 PM INFECTION CONTROL SPECIALIST) Patholo gist Method Time Signature R, Kaolin, TEG 11.5 (H) 4.0 - 9.0 2021 STMA min 2:43 PM INFECTION CONTROL SPECIALIST K, Kaolin, TEG 2.0 (H) 0.9 - 1.7 2021 STMA min 2:43 PM INFECTION CONTROL SPECIALIST Angle, Kaolin, 62.7 (L) 66.2 - 80.3 2021 STMA TEG degrees 2:43 PM INFECTION CONTROL SPECIALIST MA, Kaolin, 74.1 55.2 - 77.0 2021 STMA TEG mm 2:43 PM INFECTION CONTROL SPECIALIST Ly30, Kaolin, 1.1 0.0 - 4.8 % 2021 STMA TEG 2:43 PM INFECTION CONTROL SPECIALIST Specimen Anatomical Collection Method Collection Time Receive d Time (Source) Location / / Volume Laterality Blood (Blood, 2021 12:55 2021 Venous) PM INFECTION CONTROL SPECIALIST 12:55 PM INFECTION CONTROL SPECIALIST Alexis Peraza P.A.-C. LAB BLOOD NON ADD-ON Performing Organization Address City/State/ZIP Code Phon e Number [facility] - [address] [place], [place] [address] [facility] [place] [address] [facility] [address] [facility] (ABNORMAL) CBC with Differential, Blood (2021 12:41 PM INFECTION CONTROL SPECIALIST) P athologist Signature Hemoglobin 12.7 11.6 - 2021 DTL 15.0 g/dL 3:23 PM INFECTION CONTROL SPECIALIST Hematocrit 40.6 35.5 - 2021 DTL 44.9 % 3:23 PM INFECTION CONTROL SPECIALIST Erythrocytes 4.45 3.92 - 2021 DTL 5.13 3:23 PM INFECTION CONTROL SPECIALIST x10(12)/L MCV 91.2 78.2 - 2021 DTL 97.9 fL 3:23 PM INFECTION CONTROL SPECIALIST RBC Distrib Width 14.2 12.2 - 2021 DTL 16.1 % 3:23 PM INFECTION CONTROL SPECIALIST Platelet Count 196 157 - 371 2021 DTL x10(9)/L 3:23 PM INFECTION CONTROL SPECIALIST Leukocytes 5.8 3.4 - 9.6 2021 DTL x10(9)/L 4:36 PM INFECTION CONTROL SPECIALIST Comment: Results confirmed by smear. Neutrophils 4.94 1.56 - 6.45 x10(9)/L 2021 4:36 P M INFECTION CONTROL SPECIALIST DTL Lymphocytes 0.39 (L) 0.95 - 3.07 x10(9)/L 2021 4:36 P M INFECTION CONTROL SPECIALIST DTL Monocytes 0.43 0.26 - 0.81 x10(9)/L 2021 4:36 PM INFECTION CONTROL SPECIALIST DTL Eosinophils <0.03 0.03 - 0.48 x10(9)/L 2021 4:36 P M INFECTION CONTROL SPECIALIST DTL Basophils <0.03 0.01 - 0.08 x10(9)/L 2021 4:36 PM INFECTION CONTROL SPECIALIST DTL Specimen Anatomical Collection Method Collection Time Receive d Time (Source) Location / / Volume Laterality Blood (Blood, 2021 12:41 2021 3:13 Venous) PM INFECTION CONTROL SPECIALIST PM INFECTION CONTROL SPECIALIST Jeanie Flores M.D. LAB BLOOD ADD-ON Performing Organization Address City/State/ZIP Code Phon e Number [facility] - [address] [place], [place] [address] [facility] [place] [address] [facility] [address] DX Chest Portable 1 View (2021 12:34 PM INFECTION CONTROL SPECIALIST) Anatomical Region Laterality Modality Chest, Thoracic RST LOS, Thoracic ARZ LOS, Thoracic N/A Digital Radiography FLA LOS Specimen (Source) Anatomical Collection Method Collection Time Re ceived Time Location / / Volume Laterality 2021 12:49 PM INFECTION CONTROL SPECIALIST Impressions 2021 12:52 PM INFECTION CONTROL SPECIALIST Since 04/23/2021, increased airspace opacities in the right upper lobe suspicious for pneumonitis. Other b ilateral airspace opacities/atelectasis are not significantly changed. Enteric t ube tip in the stomach with side port just above the GE junction; advancement recommended. Narrative 2021 12:52 PM INFECTION CONTROL SPECIALIST EXAM: ??DX CHEST PORTABLE 1 VIEW [...] recommended. Alexis Peraza P.A.-C. IMG DIAGNOSTIC IMAGING [place] OCEDURES DX Abdomen Portable Anterior Posterior 1 View (2021 12:33 PM INFECTION CONTROL SPECIALIST) Anatomical Region Laterality Modality Abdomen, Abdominal RST LOS, Abdominal ARZ LOS, N/A Digital Radiography Abdominal FLA LOS Specimen (Source) Anatomical Collection Method Collection Time Re ceived Time Location / / Volume Laterality 2021 12:53 PM INFECTION CONTROL SPECIALIST Impressions 2021 12:55 PM INFECTION CONTROL SPECIALIST Gastric tube tip in the stomach with side port just above the GE junction; advancement recommended. Gas-f illed, dilated loops of small bowel predominantly in the central abdomen anne suring up to 5.4 cm, compatible with small bowel obstruction though the bowel gas pattern has improved compared to CT revenue field agent image on 04/23/2021. Excreted IV c ontrast from CT yesterday in the bladder. Narrative 2021 12:55 PM INFECTION CONTROL SPECIALIST EXAM: ??DX ABDOMEN PORTABLE ANTERIOR POSTERIOR [...] gas pattern has improved compared to CT revenue field agent image on 04/23/2021. Excreted IV c ontrast from CT yesterday in the bladder. Alexis Peraza P.A.-C. IMG DIAGNOSTIC IMAGING [place] OCEDURES Interpretation of Outside CT Abdomen and or Pelvis (2021 12:25 PM INFECTION CONTROL SPECIALIST) Anatomical Region Laterality Modality Abdomen, Pelvis, Abdominal RST LOS, Abdominal ARZ LOS, N/A Computed Tomography Abdominal FLA LOS, Other Specimen (Source) Anatomical Collection Method Collection Time Re ceived Time Location / / Volume Laterality 2021 12:46 PM INFECTION CONTROL SPECIALIST Impressions 2021 12:55 PM INFECTION CONTROL SPECIALIST 1. Findings consistent with a mid small bowel obstruction, which may be related to partial volvulus and/or adhesion. [place] el all appears viable, with no evidence of necrosis or perforation. 2. Mildly delayed left nephrogram, of un clear etiology 3. Opacities in both lung bases likely a cute infection/inflammation, possibly due to aspiration. Narrative 2021 12:55 PM INFECTION CONTROL SPECIALIST EXAM: ??INTERPRETATION OF OUTSIDE CT ABDOMEN [...] be related to partial volvulus and/or adhesion. [place] el all appears viable, with no evidence of necrosis or perforation. 2. Mildly delayed left nephrogram, of un clear etiology 3. Opacities in both lung bases likely a cute infection/inflammation, possibly due to aspiration. Alexis Peraza P.A.-C. IMG CT PROCEDURES ECG 12 Lead (2021 12:15 PM INFECTION CONTROL SPECIALIST) P athologist Signature Ventricular Rate 117 BPM MUSE ECG/Min [place] Interval 142 ms MUSE QRSD Interval 86 ms MUSE QT Interval 318 ms MUSE QTC Interval 443 ms MUSE P [place] 48 degrees MUSE R [place] -4 degrees MUSE T Wave [place] 38 degrees MUSE Specimen Anatomical Collection Method Collection Time Receive d Time (Source) Location / / Volume Laterality 2021 12:15 2021 PM INFECTION CONTROL SPECIALIST 12:17 PM INFECTION CONTROL SPECIALIST Impressions MUSE - 2021 12:17 PM INFECTION CONTROL SPECIALIST Sinus tachycardia Premature ventricular complexes Cannot [...] tablet 1,000 mg Given 2021 8:00 PM INFECTION CONTROL SPECIALIST 1,000 mg (TYLENOL) 1,000 mg, oral, Every 6 hours, First dose on Sat04/24/21 at 1300 ARIPiprazole tablet 10 mg (ABILIFY) Given 04/26/2021 8:48 AM INFECTION CONTROL SPECIALIST 10 mg 10 mg, gastric tube, Every morning, First dose (after last modification) on Sat04/25/21 at 0900 ARIPiprazole tablet 10 mg (ABILIFY) Given 04/27/2021 9:36 AM INFECTION CONTROL SPECIALIST 10 mg 10 mg, oral, Every morning, First dose (after last modification) on Sat04/27/21 at 0900 ARIPiprazole tablet 20 mg (ABILIFY) Given 04/28/2021 9:06 AM INFECTION CONTROL SPECIALIST 20 mg 20 mg, oral, Every morning, First dose (after last modification) on Sat04/28/21 at 0900 bisacodyL suppository 10 mg (DULCOLAX) Given 2021 8:50 PM INFECTION CONTROL SPECIALIST 10 mg 10 mg, rectal, 2 times daily PRN, constipation, Starting on Sat04/24/21 at 1235 cefTRIAXone in dextrose (iso-osm) IVPB New Bag 2021 1:08 PM INFECTION CONTROL SPECIALIST 2 g 200 mL/hr 2 g (ROCEPHIN) 2 g, intravenous, at 200 mL/hr, Administer over 15 Minutes, Every 24 hours, First dose on Sat04/24/21 at 1300, For 8 doses, Drug Monitoring Program: Pharmacist to adjust medication dosing based on indication and drug clearance factors., Indications: Respiratory tract infection, community acquired citalopram tablet 20 mg (CeleXA) Given 04/26/2021 8:49 AM INFECTION CONTROL SPECIALIST 20 mg 20 mg, gastric tube, Daily, First dose (after last modification) on Sat04/25/21 at 0900 citalopram tablet 20 mg (CeleXA) Given 04/28/2021 9:06 AM INFECTION CONTROL SPECIALIST 20 mg 20 mg, oral, Daily, First dose (after last modification) on Sat04/27/21 at 0900 Given 04/27/2021 9:35 AM INFECTION CONTROL SPECIALIST 20 mg cloZAPine tablet 350 mg (CLOZARIL) Given 04/26/2021 9:19 PM INFECTION CONTROL SPECIALIST 350 mg 350 mg, oral, Daily at bedtime, First dose on Sat04/26/21 at 2100, Is this a continuation and/or restart of therapy? Yes, Is the patient eligible via the ? eligibility check? on the REMS website? Pharmacist to perform eligibility check via clozapine REMS website D5W and NaCl 0.45 % Rate/Dose Verify 04/26/2021 3:43 AM INFECTION CONTROL SPECIALIST 75 mL/hr 75 mL/hr infusion 75 mL/hr, intravenous, Continuous, Starting on Sat04/25/21 at 1200 New Bag 04/26/2021 12:29 AM INFECTION CONTROL SPECIALIST 75 mL/hr 75 mL/hr Rate/Dose Verify 04/25/2021 10:00 PM INFECTION CONTROL SPECIALIST 75 mL/hr 75 mL/hr D5W and NaCl 0.9% Rate/Dose Verify 04/25/2021 10:00 AM INFECTION CONTROL SPECIALIST 75 mL/hr 75 mL/hr infusion 75 mL/hr, intravenous, Continuous, Starting on Sat04/25/21 at 0930 New Bag 04/25/2021 9:50 AM INFECTION CONTROL SPECIALIST 75 mL/hr 75 mL/hr D5W infusion 10-250 [...] meglumine-diatrizoate sodium Given 2021 2:37 P M INFECTION CONTROL SPECIALIST 100 mL 66-10 % solution 100 mL [...] 30 mg (CARDIZEM) Given 04/25/2021 6:36 AM INFECTION CONTROL SPECIALIST 30 mg 30 mg, oral, Every 6 hours scheduled, First dose on Sat04/24/21 at 1800 Given 04/25/2021 2:30 AM INFECTION CONTROL SPECIALIST 30 mg Given 2021 5:14 PM INFECTION CONTROL SPECIALIST 30 mg dilTIAZem tablet 30 mg (CARDIZEM) Given 04/26/2021 1:42 PM INFECTION CONTROL SPECIALIST 30 mg 30 mg, gastric tube, Every 6 hours scheduled, First dose (after last modification) on Sat04/25/21 at 1200 Given 04/26/2021 6:42 AM INFECTION CONTROL SPECIALIST 30 mg Given 04/25/2021 11:18 PM INFECTION CONTROL SPECIALIST 30 mg dilTIAZem tablet 30 mg (CARDIZEM) Given 04/28/2021 12:01 PM INFECTION CONTROL SPECIALIST 30 mg 30 mg, oral, Every 6 hours scheduled, First dose (after last modification) on Sat04/26/21 at 1800 Given 04/28/2021 6:14 AM INFECTION CONTROL SPECIALIST 30 mg Given 04/28/2021 12:40 AM INFECTION CONTROL SPECIALIST 30 mg enoxaparin injection 40 mg Given 04/28/2021 9:07 AM INFECTION CONTROL SPECIALIST 40 mg Left Upper Arm (LOVENOX) (Back) 40 mg, subcutaneous, Daily, First dose on Sat04/25/21 at 1500 Given 04/25/2021 2:10 PM INFECTION CONTROL SPECIALIST 40 mg Left Lower Abdomen fluticasone furoate-vilanteroL 100-25 Given 04/28/2021 9:[address] 1 puff mcg/actuation inhaler 1 puff (BREO ELLIPTA DISKUS) 1 puff, inhalation, Daily (RT), First dose on Sat04/25/21 at 0800, fluticasone/vilanterol diskus 100/25 mcg was interchanged for fluticasone/salmeterol MDI 100/50 mcg Given 04/27/2021 9:34 AM INFECTION CONTROL SPECIALIST 1 puff Given 04/26/2021 7:47 AM INFECTION CONTROL SPECIALIST 1 puff heparin (porcine) Given 04/25/2021 6:35 AM INFECTION CONTROL SPECIALIST 5,000 Units Right Lower injection 5,000 Units Abdomen 5,000 Units, subcutaneous, Every 8 hours scheduled, First dose on Sat04/24/21 at 2000 Given 2021 8:09 PM INFECTION CONTROL SPECIALIST 5,000 Units Left Lower Abdomen HYDROmorphone (PF) injection 0.2 mg (DIL AUDID) 0.2 mg, intravenous, Every 2 hour PRN, s evere pain or score 7-10 of 10, Starting on Sat04/25/21 at 0140 lactated Ringer's bolus 1,000 mL New Bag 2021 6:05 PM INFECTION CONTROL SPECIALIST 1,000 mL 2000 mL/hr 1,000 mL, intravenous, at 2,000 mL/hr, Administer over 30 Minutes, Once, On Sat04/24/21 at 1800, For 1 dose lactated ringers Rate/Dose Verify 04/25/2021 12:00 AM 100 mL/hr 100 mL/hr 100 mL/hr, intravenous, INFECTION CONTROL SPECIALIST Continuous, Starting on Sat04/24/21 at 1200 Rate/Dose Verify 2021 11:00 PM INFECTION CONTROL SPECIALIST 100 mL/hr 100 mL/hr Rate/Dose Verify 2021 10:00 PM INFECTION CONTROL SPECIALIST 100 mL/hr 100 mL/hr lactated ringers Rate/Dose Verify 04/25/2021 8:00 AM INFECTION CONTROL SPECIALIST 200 mL/hr 200 mL/hr 200 mL/hr, intravenous, Continuous, Starting on Sat04/25/21 at 0130 Rate/Dose Verify 04/25/2021 7:00 AM INFECTION CONTROL SPECIALIST 200 mL/hr 200 mL/hr New Bag 04/25/2021 6:02 AM INFECTION CONTROL SPECIALIST 200 mL/hr 200 mL/hr lansoprazole suspension 30 mg (PREVACID) Given 04/26/2021 6:42 AM INFECTION CONTROL SPECIALIST 30 mg 30 mg, gastric tube, Daily before breakfast, First dose (after last modification) on Sat04/25/21 at 0700 Given 04/25/2021 6:36 AM INFECTION CONTROL SPECIALIST 30 mg lidocaine 5 % 1 patch (LIDODERM) 1 patch, transdermal, Administer over 12 Hours, Daily, First dose on Sat04/25/21 at 0900, May apply up to 3 patches per day. magnesium sulfate in D5W IVPB 1 g New Bag 2021 6:06 PM INFECTION CONTROL SPECIALIST 1 g 100 mL/hr 1 g, intravenous, at 100 mL/hr, Administer over 60 Minutes, Once, On Sat04/24/21 at 1700, For 1 dose, Over 1 hours. melatonin tablet 3 mg Given 2021 8:09 PM INFECTION CONTROL SPECIALIST 3 mg 3 mg, oral, Daily at bedtime, First dose on Sat04/24/21 at 2100 mirabegron 24 hr tablet 50 mg (MYRBETRIQ ) Given 2021 8:34 PM INFECTION CONTROL SPECIALIST 50 mg 50 mg, oral, Daily at bedtime, First dose on Sat04/24/21 at 2100, Swallow whole. Do NOT crush, chew, or split tablet. montelukast tablet 10 mg (SINGULAIR) Given 2021 8:08 PM INFECTION CONTROL SPECIALIST 10 mg 10 mg, oral, Daily at [...] 40 mg (PROTONIX) Given 04/28/2021 6:14 AM INFECTION CONTROL SPECIALIST 40 mg 40 mg, oral, Daily before breakfast, First dose on Sat04/27/21 at 0700, Swallow whole. Do NOT crush, chew, or split tablet. Given 04/27/2021 6:01 AM INFECTION CONTROL SPECIALIST 40 mg phenoL 1.4 % spray 1 spray (CHLORASEPTIC ) Given 04/25/2021 11:18 PM INFECTION CONTROL SPECIALIST 1 spray 1 spray, mouth/throat, As needed, sore throat, Starting on Sat04/25/21 at 1803 sennosides-docusate sodium 8.6-50 mg per Given 2021 8:09 P M INFECTION CONTROL SPECIALIST 1 tablet tablet 1 tablet (SENOKOT-S) 1 [...] injection 3 mL Given 04/28/2021 9:09 AM INFECTION CONTROL SPECIALIST 3 mL 3 mL, intravenous, Every 12 hours scheduled, First dose on Sat04/24/21 at 2100, Peripheral Intravenous Catheter and Rapid Infusion Catheter, when no infusion to maintain patency Given 04/25/2021 8:10 AM INFECTION CONTROL SPECIALIST 3 mL Given 2021 8:35 PM INFECTION CONTROL SPECIALIST 3 mL sodium chloride 0.9 % injection 3 mL 3 mL, intravenous, As needed, line care, Peripheral Intravenous Catheter and Rapid Infusion Catheter, Starting on Sat04/25/21 at 1637, P rior to and following infusion and between multiple consecutive infusions. sodium chloride 0.9 % injection 3 mL Given 04/27/2021 8:42 PM INFECTION CONTROL SPECIALIST 3 mL 3 mL, intravenous, Every 12 hours scheduled, First dose on Sat04/25/21 at 2100, Peripheral Intravenous Catheter and Rapid Infusion Catheter: When no infusion to maintain patency. Given 04/27/2021 9:54 AM INFECTION CONTROL SPECIALIST 3 mL Given 04/26/2021 9:25 PM INFECTION CONTROL SPECIALIST 3 mL documented in this encounter Active and Recently Administered Medications Times are shown in INFECTION CONTROL SPECIALIST. Scheduled Medication Order 04/26/2021 04/27/2021 04/28/2021 ARIPiprazole tablet 10 mg (ABILIFY) (CANCELED) 0848 (Sandra webber - Provider: Gem Ribeiro R.N., Sanam.S.R.NElvi) 10 mg, gastric tube, Every morning, Firs t dose (after last modification) on Sat04/25/21 at 0900 ARIPiprazole tablet 10 mg (ABILIFY) (CANCELED) 0936 (Given - Provider: Gem Ribeiro R.N., Sanam.S.R.NElvi) 10 mg, oral, Every morning, First dose ( after last modification) on Sat04/27/21 at 0900 ARIPiprazole tablet 20 mg (ABILIFY) 0906 (Given - Provider: Chantell Rivera R.N.) 20 mg, oral, Every morning, First dose ( after last modification) on Sat04/28/21 at 0900 citalopram tablet 20 mg (CeleXA) (CANCELED) 0849 (Give n - Provider: Gem Ribeiro R.N., KushS.R.NElvi) 20 mg, gastric tube, Daily, First dose ( after last modification) on Sat04/25/21 at 0900 citalopram tablet 20 mg (CeleXA) 0935 (Sandra webber - Provider: Gem Ribeiro R.N., Sanam.S.R.NElvi) 0906 (Given - Provider: Chantell kennedy RElviNElvi) 20 mg, oral, Daily, First [...] ? eligibility check? on the REMS website? Ph karlenest to perform eligibility check via clozapine REMS [...] (Not Given - Provider: Gem Ribeiro R.N., Sanam.S.R.NElvi - Reason: Contraindicated - Comment: to hold per sx due to loose bloody stool) 0936 (Not Given - Provider: Gem pittman R.N., C.M.S.R.N. - Reason: Contraindicated - Comment: held per sx due to bloody stools) 0907 (Given - Provider: Chantell kennedy RElviNElvi) 40 mg, subcutaneous, Daily, First dose on Sat04/25/21 at 1500 fluticasone furoate-vilanteroL 100-25 mc g/actuation inhaler 1 puff (BREO ELLIPTA DISKUS) 0747 (Given - Provider: Gem Ribeiro R.N., CElviM.S .R.N.) 0934 (Given - Provider: Gem Ribeiro R.N., C.Candelario.S.R.N. - Comment: in BR) 0905 (Given - Provider: Chantell Rivera R.N.) 1 puff, inhalation, Daily (RT), First do se on Sat04/25/21 at 0800, fluticasone/vilanterol diskus 100/25 mcg was interchanged for fluticasone/salmeterol MDI 100/50 mcg lansoprazole suspension 30 mg (PREVACID) (CANCELED) 06 (Given - Provider: Amy Auguste R.N.) 30 [...] Miroslava Ewing R.N.) 0614 (Given - Provider: Desmond NegreteNElvi) 40 mg, oral, Daily before breakfast, Fir [...] met) 0909 (Given - Provider: Chantell kennedy R.N.) 3 mL, intravenous, Every 12 hours schedu led, First dose on Sat04/24/21 at 2100, Peripheral Intravenous Catheter and Rapid Infusion Catheter, when no infusion to maintain patency sodium chloride 0.9 % injection 3 mL 0853 (Given - Pro vider: Gem Ribeiro R.N., C.M.S.R.NElvi)2124 (Given - Provider: Veronica Cohn R.N.) 0954 (Given - Provider: Gem Ribeiro R.N., C.M.S.R.NElvi)2041 (Given - Provider: Veronica Cohn R.N.) 0909 (Not Given - Provider: Chantell marino R.N. - Reason: Other) 3 mL, intravenous, Every [...] R.N.)1104 (Stopped - Provider: Gem Ribeiro R.N., C.M.S.R.NElvi) 75 mL/hr, intravenous, Continuous, Starting on Sat04/25/21 [...] COVID19 Pending 2021 2021 2021 2:49 PM INFECTION CONTROL SPECIALIST COVID19 Pending 04/27/2021 04/28/2021 04/28/2021 1:19 AM INFECTION CONTROL SPECIALIST documented as of this encounter
--- OUTSIDE RECORDS SUMMARY | 2022-03-08 10:08 | XMS_ITS | Encounter Summary ---
:1955 Author Organization [facility] Address [address] [place] [address] Care Team Providers Name Role Phone Unavailable [...] 12:50 R esults for this EXAM PM CANARY RAISER procedure are i n the results section. documented in this encounter Results Colonoscopy-Gastroenterology Image Exam (05/05/2021 12:50 PM CANARY RAISER) Specimen (Source) Anatomical Collection Method Collection Time Re ceived Time Location / / Volume Laterality 05/05/2021 12:49 PM CANARY RAISER Narrative IIMS - 05/05/2021 1:58 PM CANARY RAISER This order has been created and auto-finalized [...]
--- OUTSIDE RECORDS SUMMARY | 2022-03-08 10:08 | XMS_ITS | Encounter Summary ---
:1955 Author Organization [facility] Address [address] [place] [address] Care Team Providers Name Role Phone Unavailable Primary Care Provider Unavailable Reason for Referral Outpatient (Routine) - Closed Specialty Diagnoses / Procedures Referred By Contact Refer red To Contact Diagnoses Bleeding Rectal Narciso Gama, Cnadelario[facility] Procedures Colonoscopy Referral ID Status Reason Start Date Expiration Date Visits Requ ested Visits Authorized [id number] Closed 04/27/2021 04/27/2022 1 1 WARE SALES REPRESENTATIVE Encounter Details Date Type Department Care Team Description 04/27/2021 Orders Only Division of Trauma Narciso Gama Bleedi ng Rectal Critical Care and M.B[facility]B.S[facility] (Primary D x) General Surgery in [place], [place] [address] [place] [phone] Social History Tobacco Use Types Packs/Day Years [...]
--- OUTSIDE RECORDS SUMMARY | 2022-03-08 10:08 | XMS_ITS | Encounter Summary ---
:1955 Author Organization [facility] Address [address] [place] [address] Care Team Providers Name Role Phone Unavailable Primary Care Provider Unavailable Reason for Referral Outpatient (Routine) - Closed Specialty Diagnoses / Procedures Referred By Contact Refer red To Contact Diagnoses Bleeding Rectal Narciso Gama M.B.B.S. [facility] Procedures Colonoscopy Referral ID Status Reason Start Date Expiration Date Visits Requ ested Visits Authorized [id number] Closed 04/27/2021 04/27/2022 1 1 MOTIVE SERVICE CONSULTANT Reason for Visit Outpatient (Routine) - Closed Specialty Diagnoses / Procedures Referred By Contact Refer red To Contact Diagnoses Bleeding Rectal Narciso Gama M.B.B.S. [facility] Procedures Colonoscopy Referral ID Status Reason Start Date Expiration Date Visits Requ ested Visits Authorized [id number] Closed 04/27/2021 04/27/2022 1 1 Encounter Details Date Type Department Care Team Description 05/05/2021 Hospital Encounter Division of Narciso Gama M.BElviB. SElvi Bleeding Rectal Gastroenterology in [place] Elliott, BOTTLE PACKING MACHINE CLEANER, FEED IN WORKER, DNAP [address] [place] [address] [place], [place] [address] [place] [address] Social History Tobacco Use Types Packs/Day [...] Comments Blood Pressure 138/73 05/05/2021 2:01 PM AUTOMOTIVE SERVICE CONSULTANT Pulse 101 05/05/2021 2:11 PM AUTOMOTIVE SERVICE CONSULTANT Temperature 36.9 ??C (98.4 ??F) 05/05/2021 1:51 PM AUTOMOTIVE SERVICE CONSULTANT Respiratory Rate 16 05/05/2021 2:11 PM AUTOMOTIVE SERVICE CONSULTANT Oxygen Saturation 96% 05/05/2021 2:11 PM AUTOMOTIVE SERVICE CONSULTANT Inhaled Oxygen Concentration - - Weight - [...] 04/28/2022 20 mg tablet MOUTH EVERY MORNING citalopram (CeleXA) 20 Take 20 mg by [...] hours prior to report time psyllium (METAMUCIL) Daily 0 0.52 gram capsule [...] PM Bleeding Rectal Resul ts for this AUTOMOTIVE SERVICE CONSULTANT procedure are i n the results section . COLONOSCOPY Routine 05/05/2021 12:49 PM Bleeding Rectal AUTOMOTIVE SERVICE CONSULTANT documented in this encounter Results Colonoscopy (05/05/2021 12:49 PM AUTOMOTIVE SERVICE CONSULTANT) Specimen (Source) Anatomical Collection Method Collection Time Re ceived Time Location / / Volume Laterality 05/05/2021 12:49 PM AUTOMOTIVE SERVICE CONSULTANT Impressions [facility] - 05/05/2021 1:53 PM AUTOMOTIVE SERVICE CONSULTANT Post-op Diagnoses: ? - Unremarkable colonic mucosa. ? - Non-bleeding internal hemorrhoi ds. No fresh or altered heme noted. ? - The distal rectum and anal verg e are normal on retroflexion view. ? - No specimens collected. Narrative [facility] - 05/05/2021 1:53 PM AUTOMOTIVE SERVICE CONSULTANT Gonda 2 GI Patient Name: Sarah Reyes [...] preparation was ? evaluated using the BBPS ([place] Bowel Preparation Scale) with scores ? of: [...] simethicone drops (MYLICON) Given 05/05/2021 1:37 PM AUTOMOTIVE SERVICE CONSULTANT 3 mL Code/trauma/sedation medication, Starting on Sat05/05/21 at 1337 documented in this encounter
--- OUTSIDE RECORDS SUMMARY | 2022-03-08 10:08 | XMS_ITS | Encounter Summary ---
:1955 Author Organization [facility] Address [address] [place] [address] Care Team Providers Name Role Phone Unavailable Primary Care Provider Unavailable Encounter Details Date Type Department Care Team Description 05/05/2021 Anesthesia Event Division of Kamaljit Goel, POTATO SORTER, PAPER TUBE CUTTER, DNAP [address] [place] [phone] [facility] [address] [place] [phone] [place], [place] [address] [place], [place] [phone] Anesthesia Record Procedure Summary Procedure Name Responsible Anesthesiologist Anesthesia Start Ti me Anesthesia Stop Time COLONOSCOPY Carl Goel, POTATO SORTER, 05/05/21 1323 1352 PAPER TUBE CUTTER, DNAP Events Date Time Event Comment 05/05/2021 1323 An Start Machine/Equipmen t Checked Infection Precautions Foll owed Procedure/Site Verified NPO Sta tus Verified Supine Standard ASA Mon itors Applied 1323 Turnover to Proceduralist 1325 Turnover to ANE Staff 1330 Proc Start 1344 Proc Fin 1347 an stop data 1352 An End I completed my h andoff to the receiving staff during [facility] we 1. Identified the patient 2. Ident [...] Room / Location: Division of Gastroenterology in [place], [place] Anesthesia Start: 1323 Anesthesia Stop: 1352 [...] Post Op nausea/vomiting: none Hydration status: euvolemic UX DEVELOPER Anesthesia Preprocedure Evaluation - Keaton Frost M.D. - 05/05/2021 1:12 PM CST Preprocedure Anesthesia & H&P Assessment Procedure Summary Date/Time: 05/05/21 1200 Scheduled providers: Morena Elliott APRN, CRNA, DNAP Procedure: COLONOSCOPY Diagnosis: Bleeding Rectal [K62.5] Location: Division of Gastroenterology in [place], [place] Pertinent components of the patient's history [...] with patient /legal guardian or through an automotive parts interpreter. Risks/Benefits/Alternatives of Blood transfusion discussed with patient / legal guardian, including an opportunity to ask questions and/or decline some or all transfusion therapies. The patient / legalguardian consented to the use of all blood products, as deemed medically necessary Approval to Proceed: approved for anesthesia UX DEVELOPER documented in this encounter Plan of Treatment Not on filedocumented as of this encounter Visit Diagnoses Not on filedocumented in this encounter Administered Medications Inactive Administered Medications - up to 3 most recent administrations Medication Order MAR Action Action Date Dose Rate Site lactated ringers New Bag 05/05/2021 1:23 PM UI UX DEVELOPER intravenous, Continuous Infusion: Per Instructions PRN, Starting on Sat05/05/21 at 1323, Anesthesia Intra-op lidocaine (PF) (cardiac) injection Given 05/05/2021 1:23 PM UI UX DEVELOPER 60 mg intravenous, As needed, Starting on Sat05/05/21 at 1323, Anesthesia Intra-op propofol 10 mg/mL infusion Rate/Dose 05/05/2021 1:38 100 mcg/kg/min 59.46 (DIPRIVAN) Change PM UI UX DEVELOPER mL/hr intravenous, Continuous Infusion: Per Instructions PRN, Starting on Sat05/05/21 at 1323, Anesthesia Intra-op New Bag 05/05/2021 1:23 PM UI UX DEVELOPER 125 mcg/kg/min 74.325 mL/hr propofoL injection (DIPRIVAN) Given 05/05/2021 1:26 PM UI UX DEVELOPER 30 mg intravenous, As needed, Starting on Sat05/05/21 at 1326, Anesthesia Intra-op documented in this encounter
--- OUTSIDE RECORDS SUMMARY | 2022-03-08 10:08 | XMS_ITS | Encounter Summary ---
:1955 Author Organization [facility] Address [address] [place] [address] Care Team Providers Name Role Phone Unavailable Primary Care Provider Unavailable Reason for Visit Reason Comments Colonoscopy questions Encounter Details Date Type Department Care Team Description 05/01/2021 Clinical Communication Division of Trauma Mohsen Mayer Colonoscopy Critical Care and P, M.D. questions General Surgery in [address] [facility], [facility] [phone] [place] [address] [place], [place] (Work) [phone] Social History Tobacco Use [...] to find out additional information about procedure. TION DESIGN AND ANALYSIS MANAGER Telephone Encounter - Flor Herman - 05/01/2021 2:50 PM CST Naomi, patient's sister, called regarding the colonoscopy that was supposed to be done tomorrow. Shehas questions if she will be having it and how to prep. She also had some information about some of her medications that were changed. Please call her back at [phone]. Thanks- TION DESIGN AND ANALYSIS MANAGER documented in this encounter Plan of Treatment Not on filedocumented as of this encounter Visit Diagnoses Not on filedocumented in this encounter Additional Health Concerns Infection Onset Date Last Indicated Resolved Time COVID19 Pending 05/01/2021 05/02/2021 05/03/2021 1:10 PM SOLUTION DESIGN AND ANALYSIS MANAGER documented as of this encounter
--- OUTSIDE RECORDS SUMMARY | 2022-03-08 10:08 | XMS_ITS | Encounter Summary ---
:1955 Author Organization [facility] Address [address] [place] [address] Care Team Providers Name Role Phone Unavailable Primary Care Provider Unavailable Encounter Details Date Type Department Care Team Description 05/01/2021 Orders Only Division of Trauma Yarbrough, Adriana L, Obstruc tion Intestinal Critical Care and P.A.-C. (HCC) (Primary Dx) General Surgery in [address] [place], [place] [address] [place] [address] [place], [place] [phone] (Work) [phone] Social History Tobacco Use Types Packs/Day Years [...]
--- OUTSIDE RECORDS SUMMARY | 2022-03-08 10:08 | XMS_ITS | Encounter Summary ---
:1955 Author Organization [facility] Address [address] [place] [address] Care Team Providers Name Role Phone Unavailable Primary Care Provider Unavailable Encounter Details Date Type Department Care Team Description 04/27/2021 Orders Only Division of Trauma Critical Narciso Gama, [facility] and General Surgery in [facility], [place] [address] [place] [address] Social History Tobacco Use Types Packs/Day [...] COVID19 Pending 04/27/2021 04/28/2021 04/28/2021 1:19 AM SOLDERER PRODUCTION LINE COVID19 Pending 05/01/2021 05/02/2021 05/03/2021 1:10 PM SOLDERER PRODUCTION LINE documented as of this encounter
--- OUTSIDE RECORDS SUMMARY | 2022-03-08 10:08 | XMS_ITS | Encounter Summary ---
:1955 Author Organization [facility] Address [address] [place] [address] Care Team Providers Name Role Phone Unavailable Primary Care Provider Unavailable Encounter Details Date Type Department Care Team Description 04/28/2021 Orders Only [facility], [facility], Ariel Lares APRN, C.N.P. [facility], [facility] or [address] [facility] [address] [place] [phone] (Wo rk) Social History Tobacco Use Types [...] COVID19 Pending 04/27/2021 04/28/2021 04/28/2021 1:19 AM BEAD SUPERVISOR COVID19 Pending 05/01/2021 05/02/2021 05/03/2021 1:10 PM BEAD SUPERVISOR documented as of this encounter
--- OUTSIDE RECORDS SUMMARY | 2022-03-08 10:08 | XMS_ITS | Encounter Summary ---
:1955 Author Organization [facility] Address [address] [place] [address] Care Team Providers Name Role Phone Unavailable Primary Care Provider Unavailable Encounter Details Date Type Department Care Team Description 04/25/2021 Anesthesia Event RST TRICIA BRISCOE OR Bridger Almaraz M.D. [address] [place] [address] Anesthesia Record Procedure Summary Procedure Name [...]
--- OUTSIDE RECORDS SUMMARY | 2022-03-08 10:09 | XMS_ITS | Encounter Summary ---
:1955 Author Organization [facility] Address [address] [place] [address] Care Team Providers Name Role Phone Unavailable Primary Care Provider Unavailable Encounter Details Date Type Department Care Team Description 2021 Ancillary Procedure Department of Alexis Peraza Radiology in J, P.A.-C. [place], [place] [address] [facility] [address] [place] [phone] (Wo rk) Social History Tobacco Use Types [...] for OUTSIDE CT ABDOMEN (most inpatients PM TRADEMARK PARALEGAL this procedure AND OR PELVIS and all are in the outpatients) results section. documented in this encounter Results Interpretation of Outside CT Abdomen and or Pelvis (2021 12:25 PM TRADEMARK PARALEGAL) Anatomical Region Laterality Modality Abdomen, Pelvis, Abdominal RST LOS, Abdominal ARZ LOS, N/A Computed Tomography Abdominal FLA LOS, Other Specimen (Source) Anatomical Collection Method Collection Time Re ceived Time Location / / Volume Laterality 2021 12:46 PM TRADEMARK PARALEGAL Impressions 2021 12:55 PM TRADEMARK PARALEGAL 1. Findings consistent with a mid small bowel obstruction, which may be related to partial volvulus and/or adhesion. [place] el all appears viable, with no evidence of necrosis or perforation. 2. Mildly delayed left nephrogram, of un clear etiology 3. Opacities in both lung bases likely a cute infection/inflammation, possibly due to aspiration. Narrative 2021 12:55 PM TRADEMARK PARALEGAL EXAM: ??INTERPRETATION OF OUTSIDE CT ABDOMEN AND [...] be related to partial volvulus and/or adhesion. [place] el all appears viable, with no evidence of necrosis or perforation. 2. Mildly delayed left nephrogram, of un clear etiology 3. Opacities in both lung bases likely a cute infection/inflammation, possibly due to aspiration. Alexis Peraza P.A.-C. IMG CT PROCEDURES documented in this encounter Visit Diagnoses Not on filedocumented in this encounter
--- OUTSIDE RECORDS SUMMARY | 2022-03-08 10:09 | XMS_ITS | Encounter Summary ---
:1955 Author Organization [facility] Address [address] [place] [address] Care Team Providers Name Role Phone Unavailable Primary Care Provider Unavailable Encounter Details Date Type Department Care Team Description 09/14/2018 Orders Only Department of Laquita Silverio Malignant N eoplasm Of Oncology in [facility] Lung Adenocarcinoma Left [place], [place] [address] (HCC) (Primary Dx) [address] [place] [phone] Social History Tobacco Use Types Packs/Day [...]
--- OUTSIDE RECORDS SUMMARY | 2022-03-08 10:09 | XMS_ITS | Encounter Summary ---
:1955 Author Organization [facility] Address [address] [place] [address] Care Team Providers Name Role Phone Unavailable Primary Care Provider Unavailable Encounter Details Date Type Department Care Team Description 09/12/2018 Hospital Department of [place], Malignant Neop lasm Of Encounter Radiology, [place] Shani Lares, Lung [facility], in AIR HAMMER OPERATOR, C.N.P. Left ([facility]) [place], [facility] [address] [place], [place] [address] [facility] [address] [place], [place] [phone] (Work) [phone] Social History Tobacco Use Types Packs/Day Years [...] 0 tablet bedtime as needed for sleep. ARIPiprazole (ABILIFY) Take 10 mg by mouth [...]
--- OUTSIDE RECORDS SUMMARY | 2022-03-08 10:09 | XMS_ITS | Encounter Summary ---
:1955 Author Organization [facility] Address [address] [place] [address] Care Team Providers Name Role Phone Unavailable Primary Care Provider Unavailable Reason for Visit Reason Onset Date Comments Post-op 08/13/2018 Encounter Details Date Type Department Care Team Description 08/13/2018 Clinical Communication [facility] Post[place]op Surgery in [place] [address] [facility] [address] [place] [address] [phone] Social History Tobacco Use Types Packs/Day Years [...] to her recent surgery. Please call her [phone] documented in this encounter Plan of Treatment Not on filedocumented as of this encounter Visit Diagnoses Not on filedocumented in this encounter
--- OUTSIDE RECORDS SUMMARY | 2022-03-08 10:09 | XMS_ITS | Encounter Summary ---
:1955 Author Organization [facility] Address [address] [place] [address] Care Team Providers Name Role Phone Unavailable Primary Care Provider Unavailable Reason for Visit Outpatient (Routine) - Closed Specialty Diagnoses / Procedures Referred By Contact Refer red To Contact Thoracic Surgery Diagnoses Malignant Neoplasm Of Lung Adenocarcinoma Left (HCC) [facility] COFFIN MAKER, C.N.P. [address] [place] [address] Referral ID Status Reason Start Date Expiration Date Visits Requ ested Visits Authorized [id number] Closed 08/11/2018 08/11/2019 1 1 Encounter Details Date Type Department Care Team Description 09/12/2018 Office Visit Division of Thoracic Maria Isabel Ramsay Neoplasm Of Surgery in [place], Brissa Castillo. Lung Adenocarcinoma Left [place] [address] [facility] (HCC) [address] [place] [phone] Social History Tobacco Use Types Packs/Day Years [...] up to be with Dr. Silverio at [place], and I think this is perfectly appropriate. Postoperative visit no charge. documented in this encounter Plan of Treatment Not on filedocumented as of this encounter Visit Diagnoses Diagnosis 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) documented in this encounter
--- OUTSIDE RECORDS SUMMARY | 2022-03-08 10:09 | XMS_ITS | Encounter Summary ---
:1955 Author Organization [facility] Address [address] [place] [address] Care Team Providers Name Role Phone Unavailable Primary Care Provider Unavailable Encounter Details Date Type Department Care Team Description 04/25/2021 Surgery RST ROMB MAIN OR Ammon Lino, Not Performed [address] M[address]. [place] [address] [address] [facility] EXPLORATION, possible [phone] [place], [place] open, possible bowel [id number] resection, possible [phone] temporary abdom inal (Work) closure, possible [phone] multiple trips to OR (Fax) Social History [...] Comments Blood Pressure 134/75 04/25/2021 11:00 PM MEETING PLANNER Pulse 98 04/25/2021 11:00 PM MEETING PLANNER Temperature 36.5 ??C (97.7 ??F) 04/25/2021 11:00 PM MEETING PLANNER Respiratory Rate 34 04/25/2021 11:00 PM MEETING PLANNER Oxygen Saturation 90% 04/25/2021 11:00 PM MEETING PLANNER Inhaled Oxygen Concentration - - Weight 97.6 kg (215 lb 2.7 oz) 04/25/2021 4:37 PM MEETING PLANNER Height 160 cm (5' 3) 2021 12:15 PM MEETING PLANNER Body Mass Index 38.7 2021 12:15 PM MEETING PLANNER documented in this encounter Discharge Summaries Lilia Colon, HUGH, C.N.P. - 04/28/2021 10:59 AM CST DISCHARGE SUMMARY BRIEF OVERVIEW Hospital: [facility] Discharge Provider: Sudarshan Mayer M.D. Primary Team: [facility] No primary care provider on [...] Raffaele, M.D.Traynor, Michael D Jr., M.D., M.P.H. [facility] ROMB OR DISCHARGE DISPOSITION Home or Self Care [1] ACTIVE ISSUES REQUIRING FOLLOW UP NO FOLLOW UP REQUIRED WITH TRAUMA-CRITICAL CARE-GENERAL SURGERY (TCGS): You do not require a follow up appointment at this time. If you are having difficulty, have questions or would like to be seen in follow-up, please call to make an appointment at [phone]. If you need to reach a provider on the TCGS service after hours, you may call the [facility] window machine operator at and ask to speak the provider content architect for the Trauma-Critical Care-General Surgery (TCGS) Service. If you have forms that need addressed by the surgery team or outside records that need to be uploaded, please email them to [email or web address] or fax them at [phone]. PRIMARY CARE PROVIDER: You should follow up [...] lung resection (2019) who presented to the [facility] Emergency Department on 04/23 for abdominal pain and vomiting for [address] A/P demonstrated high-grade obstruction in her right lower quadrant. She was admitted overnight and transferred to [facility] on 04/24 due to respiratory distress [...] were provided to the patient and caregiver(s). ING PLANNER documented in this encounter Medications at Time [...] equipment not needed Charlene Shannon P.T., D.P.T. ING PLANNER Lilia Colon, HUGH, C.N.P. - 04/28/2021 9:05 AM CST SUBJECTIVE [...] Disposition: Home with family later this morning; Non-[place] PT referral script given Patient has close follow up with colonoscopy on 05/01/21 and should follow up thereafter with PCP. Sheverbalizes understanding. For questions/concerns in regards to patient plan of care, please page HSS-B service at [phone]. ADDENDUM: (1008) Spoke with Naomi, Sister and detective and intelligence analyst. 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 Will contact educational resource coordinator early a.m.on 05/01 and move this [...] unsuccessful in obtaining PCP appointment as well. ING PLANNER Narciso Gama M.B.B.S. - 04/27/2021 10:29 PM [...] appropriate. Intake/Output Summary (Last 24 hours) at 04/27/2021 2236 Last data filed at 04/27/2021 2100 Gross per 24 hour Intake 2800 ml Output 2950 ml Net -150 ml Physical Exam Hemodynamics: afebrile, Vitals: 04/27/215 BP: 133/74 Pulse: 106 Resp: 30 Temp: [...] for by the HSS-B team. Please page [phone] (HSS-B) with any questions or concerns. Plans were discussed with Dr. Mayer, who was in agreement Thao Lizarraga Resident Physician PGY-1 General Surgery [email or web address] ING PLANNER Kathy Zavaleta P.T.A. - 04/27/2021 2:10 PM [...] insufficiency and KEVIN who presented to the [facility] Emergency Department on 04/23 for abdominal pain and vomiting for [address] A/P demonstrated high-grade obstruction in her right lower quadrant. She was admitted overnight and transferred to [facility] on 04/23 due to respiratory distress most [...] provided today: Exercises for the Legs (Sitting) (UI1230) The following coordination of care occurred today: [...] 3-5 steps with a railing?: A Lot AM-PAC Basic Mobility (V.2) Raw Score: 20 AM-PAC Basic Mobility (V.2) Standardized Score: 43.99 Interpretation: Clinicians answer the AM-[facility] Inpatient Short Form based on [...] Therapeutic exercise,Therapeutic functional activity,Neuromuscular re-education,Self-care/home management,Gait training SAND SCREENER Visit Trackin Billing: Time Spent with Patient Gait Training (min): 20 min Therapeutic Exercise (min): 12 min Total Timed Units (min): 32 min Total Treatment Time (min): 32 min Kathy Zavaleta, P.T.A. ING PLANNER Nancy Lawson, D., R.Ph. - 04/27/2021 11:50 AM CST Pharmacist [...] likely new pain and bowel regimens. David Lawson, DElvi, R.Ph. ING PLANNER Kim Browne L.G.S.W., M.S.W. - 04/27/2021 11:31 [...] our ownership and financial relationship of the [facility] beds, home health, and hospice agencies. Reviewed [...] hopeful home healthcare services. Referrals Sent: 1. [facility] 2. [facility] 3. [facility] 4. [facility] OBJECTIVE Patient seen up in the chair [...] of your patient. Please contact me at [phone] withany questions or for further information. After regular work hours, you can contact the On-call service pager at [phone]. Cassandra Cobian M.B.B.SElvi - 04/26/2021 2:05 PM CST HSS B [...] a small-bowel obstruction and was transferred to [facility] ICU. She underwent a Gastrografin challenge [...] for by the HSS-B team. Please page [phone] (HSS-B) with any questions or concerns. Plans were discussed with Dr. Mayer, who was in agreement Ashley YeagerS Resident Physician PGY-1 General Surgery [email or web address] ING PLANNER Salty Mustafa P.T.A. - 04/26/2021 1:24 PM CST 04/26/21 1322 Reason Therapy Missed Reason Therapy Missed Patient refused Pt declined therapy with this script writer due do feel exposed and not [...] with my colleague, Dr. Jonathan Mayer, and [facility]. Lance Armstrong M.D. CT CT Job ID: [id number] Melissa Roberto, Pharm.D. - 04/25/2021 9:09 AM CST Pharmacist Progress Note Reason for admission: SBO, last BM 2 days prior PMH: schizophrenia ASSESSMENT and PLAN: Home meds: Per RPh, holding home clozapine, metformin Neuro: Psych following. Clozapine level ordered. Holding doses for now. Home citalopram, Abilify resumed, ANC 4940 (reported 04/24, q4wk color checker roving or yarn). Psych is following and may need to [...] Proph: Enoxaparin 40 mg PPI (home) Pharm. CoryD. ING PLANNER Cassandra Olmstead M.B.B.S. - 04/25/2021 7:14 AM [...] & Screen Expiration 04/27/2021 23:59 Testing Location [facility] Function Panel Collection Time: 04/24/21 12:57 [...] small- bowel obstruction and was transferred to [facility] ICU. She underwent a Gastrografin challenge [...] for by the HSS-B team. Please page [phone] (HSS-B) with any questions or concerns. Plans were discussed with Dr. Mayer, who was in agreement Thao Yeager Resident Physician PGY-1 General Surgery [email or web address] ING PLANNER Sofia Knight APRN, C.N.P., D.N.P. - 04/25/2021 1:29 AM CST SUBJECTIVE Brief Summary: Ms. Reyes is a 66 year old female with a PMH of schizophrenia, left lung adenocarcinoma s/p wedge lung resection 2019, T2DM, metabolic syndrome, mitral valve insufficiency and KEVIN who presented to the [facility] Emergency Department on 04/23 for abdominal pain and vomiting for2 days. CT A/P demonstrated high-grade obstruction in her right lower quadrant. She was admitted overnight and transferred to [facility] on 04/23 due to respiratory distress most [...] Abilify resumed, ANC 4940 (reported 04/24, q4wk color checker roving or yarn) Resp: On O2 upon arrival, concern for [...] & Screen Expiration 04/27/2021 23:59 Testing Location [facility] Function Panel Collection Time: 04/24/21 12:57 [...] ambulation. Prophylaxis: Subcu heparin t.i.d. Dispo: SICU ING PLANNER Oneal Robison Pharm.D., R.Ph. - 2021 1:46 [...] mouth at bedtime as needed for sleep. ING PLANNER Ruiz Brownlee M.S., O.T. - 2021 1:13 PM CST 04/24/21 1313 Reason Therapy Missed Reason Therapy Missed Medical hold OT/PT orders received, chart review completed. Patient recently admitted with ongoing medical workup. Will hold occupational/physical therapy and initiate plan of care as appropriate. ING PLANNER Chuck Wetzel L.R.T. - 2021 12:14 PM [...] PH ART in the last 24 hours. ING PLANNER documented in this encounter H&P Notes Sudarshan [...] Former smoker 7. BMI 38.3 8. Schizophrenia ING PLANNER Alexis Peraza P.A.-C. - 2021 2:01 PM CST REFERRAL SOURCE [facility] REASON FOR ADMISSION SBO and possible aspiration pneumonia with respiratory distress HISTORY OF PRESENT ILLNESS Ms. Reyes is a 66 year old female with a PMH of schizophrenia, left lung adenocarcinoma s/p wedge lung resection 2019, T2DM, metabolic syndrome, mitral valve insufficiency and KEVIN who presented to [facility] Emergency Department on 04/23 for abdominal pain and vomiting for [address] A/P demonstrated high-grade obstruction in her right lower quadrant. She was admitted overnight and transferred to [facility] on 04/23 due to respiratory distress most [...] Nonrheumatic Mitral Valve Insufficiency 08/27/2017 ??? 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 Schizophrenia (HCC) [...] DISPOSITION: - SICU #1 Obstruction Intestinal (HCC) Sudarshan Johnston M.D. - 2021 2:01 PM CST HISTORY [...] developed respiratory distress and presented to [facility] emergency department. PE protocol CT scan was negative. CT scan of abdomen suggested small-bowel obstruction and patient was transferred. CT shows marked distension of stomach and proximal small bowel. Small bowel measures up to 5 cm in diameter. There is a transition to collapsed bowel in the anterior, mid-central false pelvis - [id number], image 127-124. Patient is a very poor [...] at 2.4. White blood count normal in [facility]. Will insure adequate volume resuscitation. Discussed with [...] 4.2 noted. Gastrografin administered at 2:37 p.m. ING PLANNER documented in this encounter Consult Notes Kim [...] feeling much better now. Patient informed social sciences chair of all of the fluids shehas been given since presenting to the hospital, as well as the fact that she has now had bowel function which has alleviated her pain. SOCIAL HISTORY Family / Household: Patient lives with her sister and oofmmkc-nt-bfw. She has never been norhad children. Spirituality / Gnosticist / Culture: Not taoism History: No Employment: Disabled Psychosocial Risk Factors [...] has great support from her sister and wkegkxl-oq-wla with whom she lives. FINANCES/INSURANCE Primary insurance: MEDICARE A AND B Secondary insurance: [place]ICA[place] Financial concerns: No ADVANCE DIRECTIVES Advance [...] She endorses great support from her sister fhqkndnukw-lk-pla whom she lives with. She notes that [...] support is provided by patient's sister and sjiiivi-tt-psw. She has a long history of schizophrenia [...] of care/plan: None Mehreen Downing, M.S.W. 04/26/2021 ING PLANNER Trupti Gonzales O.T. - 04/25/2021 1:59 PM [...] 2 (HCC) ??? Edema Localized ??? Other Garment Fitter Current Drug Therapy ??? Metabolic Syndrome ??? [...] insufficiency and KEVIN who presented to the [facility] Emergency Department on 04/23 for abdominal pain and vomiting for [address] A/P demonstrated high-grade obstruction in her right lower quadrant. She was admitted overnight and transferred to [facility] on 04/23 due to respiratory distress most likely due to possible aspirationpneumonia. Occupational Profile: Prior Function/Occupational Profile Lives With: Family (Sister and wpkllht-fk-ppl. Patient reports they do work but sometimes drug department worker. She was unclear on how often they are home. Further clarification needed. Nephew also stays with them off and on.) Receives Help From: Family ADL Assistance: Modified independent ADL Assistance Comments: Independent in dressing and toileting. Takes seated showers without assistance. IADL/Homemaking Assistance Comments: Patient performs her own meals for breakfast and lunch. Sister and lvxdmyw-na-fnr prepare dinner and do the majority of cleaning. Patient does own laundry. Sister assists with setting up pill box but patient takes daily on own. Patient has assistance from sister with finances. Family manages yard work. 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 ING PLANNER Keaton Owens P.T., D.P.T. - 04/25/2021 11:30 [...] 2 (HCC) ??? Edema Localized ??? Other Garment Fitter Current Drug Therapy ??? Metabolic Syndrome ??? [...] insufficiency and KEVIN who presented to the [facility] Emergency Department on 04/23 for abdominal pain and vomiting for [address] A/P demonstrated high-grade obstruction in her right lower quadrant. She was admitted overnight and transferred to [facility] on 04/23 due to respiratory distress most likely due to possible aspiration pneumonia. Prior Function/Occupational Profile Lives With: Family (Sister and xxwsijz-or-kkx. Patient reports they do work but sometimes drug department worker. She was unclear on how often they are home. Further clarification needed. Nephew also stays with them off and on.) Receives Help From: Family ADL Assistance: Independent ADL Assistance Comments: Independent in dressing and toileting. Takes seated showers independently. IADL/Homemaking Assistance Comments: Patient performs her own meals for breakfast and lunch. Sister and myzotmp-sn-hft prepare dinner and do the majority of cleaning. 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 Inpatient Short Form: -[facility] Basic Mobility (V.2) How much [...] 3-5 steps with a railing?: A Lot -[facility] Basic Mobility (V.2) Raw Score: 17 -[facility] Basic Mobility (V.2) Standardized Score: 39.67 Interpretation: Clinicians answer the -[facility] Inpatient Short Form based on [...] Time (min): 31 min Keaton Owens P.T., LocP.T. ING PLANNER Cam Mariee M.D. - 2021 4:55 PM [...] agrees with the plan as outlined above. Cassandra Cobian M.B.BElviSElvi - 2021 4:22 PM CSTAssociated Order(s): IP [...] distress the patient was transferred to [facility] directly. After reaching the ICU, the patient [...] Nonrheumatic Mitral Valve Insufficiency 08/27/2017 ??? Other Residential Current Drug Therapy 05/26/2018 ??? Schizophrenia (HCC) [...] gas pattern has improved compared to CT field scout image on 04/23/2021. Excreted IV contrast [...] small-bowel obstruction. Therefore, she was transferred to [place] ICU as a direct admit. The patient [...] team with any questions concerns by paging [phone] (S-B). Plan and assessment were discussed with Dr. Mayer and Dr. Mariee, who were in agreement. TT: 30 minutes, CT > 50%. The patient acknowledges an understanding and agrees with the plan of care. Ashley YeagerS Resident Physician PGY-1 General Surgery [email or web address] ING PLANNER Associated attestation - Cam Mariee M.D. - 2021 4:54 PM MEETING PLANNER . Lance Armstrong M.D. - 2021 4:18 PM CST SUBJECTIVE HISTORY OF PRESENT ILLNESS I reviewed, discussed, examined, and agree with documentation of Surgical Critical Care fellow, Dr. Chuck Armstrong. Patient is a 66-year-old female who my colleague, Dr. Jeanie Flores, accepted in transfer from [place], [place]. She has bowel obstruction. Unfortunately, she [...] NG tube in place. Plans from the [facility] are for standard NG tube decompression followed by Dc rografin challenge. I agree with plans as outlined. Lance Armstrong M.D. CT CT Job ID: [id number] ING PLANNER Sonido Woodall P.A.-C. - 2021 2:47 PM CSTAssociated Order(s): IP CONSULT TO PSYCHIATRY & PSYCHOLOGY SUBJECTIVE Referring team: RST [facility] Trauma and General Surgery REASON [...] provider since Sat2021 at 1423 by Alexis Peraza, P.A.-C..Hold Comments: Pending pysch recommendations) 300 mg, oral, Dailyat bedtime Ordered [Held by provider] cloZAPine tablet 50 mg (CLOZARIL) (Held by provider since Sat2021 at 1423by Alexis Peraza, P.A.-C..Hold Comments: Pending pysch recommendations) 50 mg, [...] ??? Malignant Neoplasm Of Lung Adenocarcinoma Left ([facility]) 05/05/2018 ??? Metabolic Syndrome 06/12/2016 ??? Morbid obesity (CMS/HCC) 12/26/2014 ??? Nonrheumatic Mitral Valve Insufficiency 08/27/2017 ??? 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 Schizophrenia (HCC) [...] This case will be discussed with a valuation consultant in the next 24 hours Patient [...] of your patient. Please contact me at [phone] withany questions or for further information. Sonido Woodall P.A.-C. 2021 ING PLANNER documented in this encounter Nursing Notes Bethany Salamanca R.N. - 04/28/2021 4:59 PM CST Pt's belongings were all packed up and IV was removed. Education was gone over with pt and her detective and intelligence analyst (sister) and paperwork was sent with them. Pt will be riding with sister and discharging back home for self care. Escort was called and pt left the unit via wheelchair. Bethany Castro R.N. - 04/28/2021 4:57 PM CST Shift Goals: Clinical Goals for the Shift: Ability to void and adequate urine output, maintain hematologic and hemodynamic stability. Identify possible barriers to meeting goals/advancing plan of care: End of Shift Summary: AVS was gone over with patient and her detective and intelligence analyst (sister) and transport was called to take them downto pharmacy to flower picker medications. All questions were answered and pt DC HSC. Nicole Flynn R.RYan, L.R.T. - 04/25/2021 10:09 AM CST Patient [...] 43 PH ART 7.44 Nicole Quan R.R.T., Garcia 04/25/21 10:09 AM MEETING PLANNER ING PLANNER Modesta Bruce R.R.T., FannyRJanay. - 04/25/2021 3:24 AM CST Sarah Reyes [...] Modesta Bruce R.R.T., L.R.T. 04/25/21 3:24 AM MEETING PLANNER ING PLANNER documented in this encounter Miscellaneous Notes Hospital Course - ChenteLilia Hooper, HUGH, C.N.P. - 04/25/2021 11:53 AM CST Ms. Sarah Reyes is a 66 year old female with a PMH of mitral valve insufficiency, HTN, KEVIN, DM type 2, metabolic syndrome, schizophrenia, left lung adenocarcinoma s/p wedge lung resection (2019) who presented to the [facility] Emergency Department on 04/23 for abdominal pain and vomiting for [address] A/P demonstrated high-grade obstruction in her right lower quadrant. She was admitted overnight and transferred to [facility] on 04/24 due to respiratory distress [...] outpatient setting. Colonoscopy is scheduled for 05/01/2021. ING PLANNER documented in this encounter Plan of Treatment [...] lts for RNA, RAPID POC, V AM MEETING PLANNER this proce dure are in the results section. CBC WITHOUT Routine 04/27/2021 8:20 Results for DIFFERENTIAL, B PM MEETING PLANNER this procedu re are in the results section. ADULT OXYGEN THERAPY Routine 04/27/2021 8:01 AM MEETING PLANNER CBC WITH Routine 04/26/2021 8:18 Results for DIFFERENTIAL, B PM MEETING PLANNER this procedu re are in the results section. ADULT OXYGEN THERAPY Routine 04/26/2021 8:00 PM MEETING PLANNER CBC WITHOUT Timed 04/26/2021 2:53 Results for DIFFERENTIAL, B PM MEETING PLANNER this procedu re are in the results section. ADULT OXYGEN THERAPY Routine 04/26/2021 8:01 AM MEETING PLANNER DX CHEST PORTABLE 1 RAD - Routine 04/26/2021 5:56 Resu lts for VIEW (most inpatients AM MEETING PLANNER this proced ure and all are in the outpatients) results section. DX ABDOMEN PORTABLE RAD - Routine 04/25/2021 8:50 Resu lts for ANTERIOR POSTERIOR 1 (most inpatients PM MEETING PLANNER thi s procedure VIEW and all are in the outpatients) results section. CBC WITHOUT Routine 04/25/2021 8:29 Results for DIFFERENTIAL, B PM MEETING PLANNER this procedu re are in the results section. BASIC METABOLIC Routine 04/25/2021 8:29 Results f or PANEL, S/P PM MEETING PLANNER this procedure are in the results section. ADULT OXYGEN THERAPY Routine 04/25/2021 8:00 PM MEETING PLANNER GLUCOSE POCT, B Routine 04/25/2021 11:29 Results for AM MEETING PLANNER this procedure are in the results section. GLUCOSE POCT, B Routine 04/25/2021 9:38 Results f or AM MEETING PLANNER this procedure are in the results section. DX ABDOMEN PORTABLE RAD - Semiurgent 04/25/2021 8:40 R esults for ANTERIOR POSTERIOR 1 (Fast; most ED AM MEETING PLANNER this procedure VIEW patients; some are in the inpatients) results section. ADULT OXYGEN THERAPY Routine 04/25/2021 8:01 AM MEETING PLANNER PATIENT STATUS Routine 04/25/2021 4:46 Results fo r AM MEETING PLANNER this procedure are in the results section. ABG W/COOX Routine 04/25/2021 4:46 Results for AM MEETING PLANNER this procedure are in the results section. CLOZAPINE, S Routine 04/25/2021 4:40 Results for AM MEETING PLANNER this procedure are in the results section. CBC WITHOUT Routine 04/25/2021 4:40 Results for DIFFERENTIAL, B AM MEETING PLANNER this procedu re are in the results section. MAGNESIUM, S Routine 04/25/2021 4:40 Results for AM MEETING PLANNER this procedure are in the results section. BASIC METABOLIC Routine 04/25/2021 4:40 Results f or PANEL, S/P AM MEETING PLANNER this procedure are in the results section. THROMBOELASTOGRAPH, Routine 04/25/2021 4:38 Resul ts for KAOLIN, B AM MEETING PLANNER this procedure are in the results section. DX CHEST PORTABLE 1 RAD - Routine 04/25/2021 4:11 Resu lts for VIEW (most inpatients AM MEETING PLANNER this proced ure and all are in the outpatients) results section. GLUCOSE POCT, B Routine 04/25/2021 3:34 Results f or AM MEETING PLANNER this procedure are in the results section. GLUCOSE POCT, B Routine 04/25/2021 12:06 Results for AM MEETING PLANNER this procedure are in the results section. DX ABDOMEN PORTABLE RAD - Routine 2021 11:05 Res ults for ANTERIOR POSTERIOR 1 (most inpatients PM MEETING PLANNER thi s procedure VIEW and all are in the outpatients) results section. ADULT OXYGEN THERAPY Routine 2021 8:00 PM MEETING PLANNER PROTHROMBIN TIME Timed 2021 6:57 Results for (PT), P PM MEETING PLANNER this procedure are in the results section. CBC WITHOUT Timed 2021 6:57 Results for DIFFERENTIAL, B PM MEETING PLANNER this procedu re are in the results section. LACTATE, B/P Timed 2021 6:57 Results for PM MEETING PLANNER this procedure are in the results section. BASIC METABOLIC Timed 2021 6:57 Results f or PANEL, S/P PM MEETING PLANNER this procedure are in the results section. TROPONIN T, 2H/6H, Timed 2021 2:55 Result s for 5TH GEN, P PM MEETING PLANNER this procedure are in the results section. CLOZAPINE, S Timed 2021 2:55 Results for PM MEETING PLANNER this procedure are in the results section. SARS CORONAVIRUS 2, Routine 2021 2:29 Resul ts for RNA, RAPID POC, V PM MEETING PLANNER this proce dure are in the results section. DX ABDOMEN PORTABLE RAD - Routine 2021 2:17 Resu lts for ANTERIOR POSTERIOR 1 (most inpatients PM MEETING PLANNER thi s procedure VIEW and all are in the outpatients) results section. PATIENT STATUS STAT 2021 1:00 Results fo r PM MEETING PLANNER this procedure are in the results section. ABG W/COOX STAT 2021 1:00 Results for PM MEETING PLANNER this procedure are in the results section. CALCIUM, IONIZED, S/B STAT 2021 1:00 Res ults for PM MEETING PLANNER this procedure are in the results section. TROPONIN T, BASELINE, STAT 2021 12:57 Re sults for 5TH GEN, P PM MEETING PLANNER this procedure are in the results section. HEPATIC FUNCTION STAT 2021 12:57 Results for PANEL, S PM MEETING PLANNER this procedure are in the results section. CBC WITHOUT STAT 2021 12:57 Results for DIFFERENTIAL, B PM MEETING PLANNER this procedu re are in the results section. TYPE AND SCREEN Routine 2021 12:57 Results for PM MEETING PLANNER this procedure are in the results section. LACTATE, B/P STAT 2021 12:57 Results for PM MEETING PLANNER this procedure are in the results section. BASIC METABOLIC STAT 2021 12:57 Results for PANEL, S/P PM MEETING PLANNER this procedure are in the results section. THROMBOELASTOGRAPH, STAT 2021 12:55 Resu lts for KAOLIN, B PM MEETING PLANNER this procedure are in the results section. CBC WITH Routine 2021 12:41 Results for DIFFERENTIAL, B PM MEETING PLANNER this procedu re are in the results section. DX CHEST PORTABLE 1 RAD - Routine 2021 12:34 Res ults for VIEW (most inpatients PM MEETING PLANNER this proced ure and all are in the outpatients) results section. DX ABDOMEN PORTABLE RAD - Semiurgent 2021 12:33 Results for ANTERIOR POSTERIOR 1 (Fast; most ED PM MEETING PLANNER this procedure VIEW patients; some are in the inpatients) results section. INTERPRETATION OF RAD - Routine 2021 12:25 Resul ts for OUTSIDE CT ABDOMEN (most inpatients PM MEETING PLANNER this procedure AND OR PELVIS and all are in the outpatients) results section. ECG STAT 2021 12:15 Results for PM MEETING PLANNER this procedure are in the results section. ADULT OXYGEN THERAPY Routine 2021 11:59 AM MEETING PLANNER ADULT OXYGEN THERAPY Routine 2021 11:59 AM MEETING PLANNER documented in this encounter Results SARS Coronavirus 2, RNA, Rapid POC, V Asymptomatic (04/28/2021 12:58 AM MEETING PLANNER) [facility] Method Time Signature SARS Undetected Undetected 04/28/2021 DTLR Coronavirus-2 1:19 AM MEETING PLANNER , RNA, Rapid POC, V Comment: Negative for SARS-CoV-2. The GPMESS COVID-19 test is a molecular erin t for SARS-CoV-2, the virus that causes COVID- 19. A Negative result means that the [facility] COV ID-19 test did not detect SARS-CoV-2 virus in your sample. G[facility] COVID-19 test uses the [employer] System. This test has received Emergency Use Authorization (EUA) by the U.S. Food and Drug Administration (FDA) and is used per man ufacturer instructions. Performance characteristic s were verified by [facility] in a manner consistent with CLIA requirements. Fact sheets for this Emerg ency Use Authorization (EUA) can be found at the following links: Providers: https://Enbridge.Altia/documentation/prov iders.pdf Patients: https://Enbridge.Altia/documentation/dinora ents.pdf SARS Coronavirus 2, Source Nasopharynx DEFAULT 04/28/2021 1:19 AM MEETING PLANNER DTLR Specimen Anatomical Collection Method Collection Time Receive d Time (Source) Location / / Volume Laterality Varies 04/28/2021 12:58 04/28/2021 (Nasopharynx) AM MEETING PLANNER 12:58 AM MEETING PLANNER Narciso Malcolm LAB MICROBIOLOGY - GENERAL O RDERABLES Performing Organization Address City/State/ZIP Code Phon e Number PERFORMING LABS, [place] [address] INTERFACE Ref Interface [address] [facility] DTLR Performing Labs, [place] [address] Interface [address] [facility] (ABNORMAL) CBC without Differential (04/27/2021 8:20 PM MEETING PLANNER) [facility] Method Time Signature Hemoglobin 10.8 (L) 11.6 - 04/27/2021 DTL 15.0 g/dL 8:39 PM MEETING PLANNER Hematocrit 33.6 (L) 35.5 - 04/27/2021 DTL 44.9 % 8:39 PM MEETING PLANNER Erythrocytes 3.83 (L) 3.92 - 04/27/2021 DTL 5.13 8:39 PM MEETING PLANNER x10(12)/L MCV 87.7 78.2 - 04/27/2021 DTL 97.9 fL 8:39 PM MEETING PLANNER RBC Distrib Width 13.4 12.2 - 04/27/2021 DTL 16.1 % 8:39 PM MEETING PLANNER Platelet Count 195 157 - 371 04/27/2021 DTL x10(9)/L 8:39 PM MEETING PLANNER Leukocytes 7.7 3.4 - 9.6 04/27/2021 DTL x10(9)/L 8:39 PM MEETING PLANNER Specimen Anatomical Collection Method Collection Time Receive d Time (Source) Location / / Volume Laterality Blood (Blood, 04/27/2021 8:20 PM 04/27/20 8:33 Venous) MEETING PLANNER PM MEETING PLANNER Narciso Malcolm LAB BLOOD ADD-ON Performing Organization Address City/State/ZIP Code Phon e Number [facility] - [address] [place] [address] [facility] [place] [address] [facility] [address] [facility] (ABNORMAL) CBC with Differential, Blood (04/26/2021 8:18 PM MEETING PLANNER) [facility] gist Method Time Signature Hemoglobin 10.8 (L) 11.6 - 04/26/2021 DTL 15.0 g/dL 9:02 PM MEETING PLANNER Hematocrit 33.9 (L) 35.5 - 04/26/2021 DTL 44.9 % 9:02 PM MEETING PLANNER Erythrocytes 3.82 (L) 3.92 - 04/26/2021 DTL 5.13 9:02 PM MEETING PLANNER x10(12)/L MCV 88.7 78.2 - 04/26/2021 DTL 97.9 fL 9:02 PM MEETING PLANNER RBC Distrib Width 13.6 12.2 - 04/26/2021 DTL 16.1 % 9:02 PM MEETING PLANNER Platelet Count 182 157 - 371 04/26/2021 DTL x10(9)/L 9:02 PM MEETING PLANNER Leukocytes 7.6 3.4 - 9.6 04/26/2021 DTL x10(9)/L 9:02 PM MEETING PLANNER Neutrophils 5.19 1.56 - 04/26/2021 DTL 6.45 9:02 PM MEETING PLANNER x10(9)/L Lymphocytes 1.83 0.95 - 04/26/2021 DTL 3.07 9:02 PM MEETING PLANNER x10(9)/L Monocytes 0.41 0.26 - 04/26/2021 DTL 0.81 9:02 PM MEETING PLANNER x10(9)/L Eosinophils 0.04 0.03 - 04/26/2021 DTL 0.48 9:02 PM MEETING PLANNER x10(9)/L Basophils 0.08 0.01 - 04/26/2021 DTL 0.08 9:02 PM MEETING PLANNER x10(9)/L Specimen Anatomical Collection Method Collection Time Receive d Time (Source) Location / / Volume Laterality Blood (Blood, 04/26/2021 8:18 PM 04/26/20 8:55 Venous) MEETING PLANNER PM MEETING PLANNER Sudarshan Lomeli Jr., HUGH, C.N.P., M.S.N. LAB BLOOD AD D-ON Performing Organization Address City/State/ZIP Code Phon e Number [facility] - [address] [place] [phone] [facility] [place] [address] [facility] [address] [facility] (ABNORMAL) CBC without Differential (04/26/2021 2:53 PM MEETING PLANNER) [facility] gist Method Time Signature Hemoglobin 11.2 (L) 11.6 - 04/26/2021 DTL 15.0 g/dL 3:30 PM MEETING PLANNER Hematocrit 35.6 35.5 - 04/26/2021 DTL 44.9 % 3:30 PM MEETING PLANNER Erythrocytes 3.95 3.92 - 04/26/2021 DTL 5.13 3:30 PM MEETING PLANNER x10(12)/L MCV 90.1 78.2 - 04/26/2021 DTL 97.9 fL 3:30 PM MEETING PLANNER RBC Distrib Width 13.7 12.2 - 04/26/2021 DTL 16.1 % 3:30 PM MEETING PLANNER Platelet Count 143 (L) 157 - 371 04/26/2021 DTL x10(9)/L 3:30 PM MEETING PLANNER Leukocytes 7.1 3.4 - 9.6 04/26/2021 DTL x10(9)/L 3:30 PM MEETING PLANNER Specimen Anatomical Collection Method Collection Time Receive d Time (Source) Location / / Volume Laterality Blood (Blood, 04/26/2021 2:53 PM 04/26/20 3:22 Venous) MEETING PLANNER PM MEETING PLANNER Sudarshan Lomeli Jr., HUGH, C.N.P., M.S.N. LAB BLOOD AD D-ON Performing Organization Address City/State/ZIP Code Phon e Number [facility] - [address] [place], [place] [address] [facility] [place] [address] [facility] [address] DX Chest Portable 1 View (04/26/2021 5:56 AM MEETING PLANNER) Anatomical Region Laterality Modality Chest, Thoracic RST LOS, Thoracic ARZ LOS, Thoracic N/A Digital Radiography FLA LOS Specimen (Source) Anatomical Collection Method Collection Time Re ceived Time Location / / Volume Laterality 04/26/2021 6:25 AM MEETING PLANNER Impressions 04/26/2021 6:26 AM MEETING PLANNER No significant change since 04/25/2021. Diffuse bilateral pulmonary opacities. Postoperative changes left renu ng. NG tube tip below the diaphragm. Narrative 04/26/2021 6:26 AM MEETING PLANNER EXAM: ??DX CHEST PORTABLE 1 VIEW Procedure Note Jose Enrique Maharaj M.D. - 04/26/2021Forma tting of this note might be different from the original. EXAM: DX CHEST PORTABLE 1 VIEW IMPRESSION: No significant change since 04/25/2021. Diffuse bilateral pulmonary opacities. Postoperative changes left renu ng. NG tube tip below the diaphragm. Andrew Bazan M.D., M.S. IMG DIAGNOSTIC IMAGING PROCE [facility] DX Abdomen Portable Anterior Posterior 1 View (04/25/2021 8:50 PM MEETING PLANNER) Anatomical Region Laterality Modality Abdomen, Abdominal RST LOS, Abdominal ARZ LOS, N/A Digital Radiography Abdominal FLA LOS Specimen (Source) Anatomical Collection Method Collection Time Re ceived Time Location / / Volume Laterality 04/25/2021 9:30 PM MEETING PLANNER Impressions 04/26/2021 7:28 AM MEETING PLANNER Since 04/17/2021 and 0835, no significant change. [...] oracolumbar spinal levocurvature. Narrative 04/26/2021 7:28 AM MEETING PLANNER EXAM: ??DX ABDOMEN PORTABLE ANTERIOR POSTERIOR 1 [...] (ABNORMAL) Basic Metabolic Panel (04/25/2021 8:29 PM MEETING PLANNER) athologist Signature Potassium, S 3.7 3.6 - 5.2 04/25/2021 DTL mmol/L 9:11 PM MEETING PLANNER Sodium, S 146 (H) 135 - 145 04/25/2021 DTL mmol/L 9:11 PM MEETING PLANNER Chloride, S 112 (H) 98 - 107 04/25/2021 DTL mmol/L 9:11 PM MEETING PLANNER Bicarbonate, S 25 22 - 29 04/25/2021 DTL mmol/L 9:11 PM MEETING PLANNER Anion Gap 9 7 - 15 04/25/2021 DTL 9:11 PM MEETING PLANNER BUN (Blood Urea 28 (H) 6 - 21 04/25/2021 DTL Nitrogen), S mg/dL 9:11 PM MEETING PLANNER Creatinine 0.64 0.59 - 04/25/2021 DTL 1.04 mg/dL 9:11 PM MEETING PLANNER eGFR-Non >90 >=60 04/25/2021 DTL Black/ mL/min/BSA 9:11 PM MEETING PLANNER Albanian Comment: ----ADDITIONAL INFORMATION---- Estimated GFR calculated using the 2009 CKD_EPI creatinine equation. eGFR-Black/ >90 >=60 mL/min/BSA 2020 9:11 PM MEETING PLANNER DTL Comment: ----ADDITIONAL INFORMATION---- Estimated GFR calculated using the 2009 CKD_EPI creatinine equation. Calcium, Total, S 8.5 (L) 8.8 - 10.2 mg/dL 04/25/2021 9:11 PM MEETING PLANNER DTL Glucose, S 147 (H) 70 - 140 mg/dL 04/25/2021 9:11 PM MEETING PLANNER D TL Specimen Anatomical Collection Method Collection Time Receive d Time (Source) Location / / Volume Laterality Blood (Blood, 04/25/2021 8:29 PM 04/25/20 8:57 Venous) MEETING PLANNER PM MEETING PLANNER Andrew Bazan M.D., M.S. LAB BLOOD ADD-ON Performing Organization Address City/State/ZIP Code Phon e Number [facility] - [address] [place], [place] [address] [facility] [place] [address] [facility] 200 [facility] CBC without Differential (04/25/2021 8:29 PM MEETING PLANNER) P athologist Signature Hemoglobin 11.7 11.6 - 04/25/2021 DTL 15.0 g/dL 8:52 PM MEETING PLANNER Hematocrit 37.7 35.5 - 04/25/2021 DTL 44.9 % 8:52 PM MEETING PLANNER Erythrocytes 4.15 3.92 - 04/25/2021 DTL 5.13 8:52 PM MEETING PLANNER x10(12)/L MCV 90.8 78.2 - 04/25/2021 DTL 97.9 fL 8:52 PM MEETING PLANNER RBC Distrib Width 13.9 12.2 - 04/25/2021 DTL 16.1 % 8:52 PM MEETING PLANNER Platelet Count 186 157 - 371 04/25/2021 DTL x10(9)/L 8:52 PM MEETING PLANNER Leukocytes 6.1 3.4 - 9.6 04/25/2021 DTL x10(9)/L 8:52 PM MEETING PLANNER Specimen Anatomical Collection Method Collection Time Receive d Time (Source) Location / / Volume Laterality Blood (Blood, 04/25/2021 8:29 PM 04/25/20 8:46 Venous) MEETING PLANNER PM MEETING PLANNER Andrew Bazan M.D., M.S. LAB BLOOD ADD-ON Performing Organization Address City/[facility] Phon e Number [facility] - [address] [place], [place] [address] [facility] [place] [address] [facility] [address] [facility] Glucose, POCT (04/25/2021 11:29 AM MEETING PLANNER) P athologist Signature Glucose, POCT, 104 70 - 140 04/25/2021 PCLX B mg/dL 11:30 AM MEETING PLANNER Site ARTLINE 04/25/2021 PCLX 11:30 AM MEETING PLANNER Specimen Anatomical Collection Method Collection Time Receive d Time (Source) Location / / Volume Laterality Blood 04/25/2021 11:29 04/25/2021 AM MEETING PLANNER 11:31 AM MEETING PLANNER Unknown Provider LAB POCT ORDERABLES-MANUAL Performing Organization Address [facility] Phon e Number [facility] [address] [place] [address] [place] [address] Dawn POC 200 [facility] Glucose, POCT (04/25/2021 9:38 AM MEETING PLANNER) P athologist Signature Glucose, POCT, 125 70 - 140 04/25/2021 PCLX B mg/dL 9:40 AM MEETING PLANNER Site ARTLINE 04/25/2021 PCLX 9:40 AM MEETING PLANNER Specimen Anatomical Collection Method Collection Time Receive d Time (Source) Location / / Volume Laterality Blood 04/25/2021 9:38 AM 9:40 MEETING PLANNER AM MEETING PLANNER Unknown Provider LAB POCT ORDERABLES-MANUAL Performing Organization Address City/[facility] Phon e Number [facility] [address] [place] [address] [place] [address] Dawn POC [address] [facility] DX Abdomen Portable Anterior Posterior 1 View (04/25/2021 8:40 AM MEETING PLANNER) Anatomical Region Laterality Modality Abdomen, Abdominal RST LOS, Abdominal ARZ LOS, N/A Digital Radiography Abdominal FLA LOS Specimen (Source) Anatomical Collection Method Collection Time Re ceived Time Location / / Volume Laterality 04/25/2021 8:42 AM MEETING PLANNER Impressions 04/25/2021 8:45 AM MEETING PLANNER Dilatation of multiple loops of small bowel. [...] Left thoracotom y. Narrative 04/25/2021 8:45 AM MEETING PLANNER EXAM: ??DX ABDOMEN PORTABLE ANTERIOR POSTERIOR 1 [...] both lungs. Left thoracotom y. Ziggy Delgado APRN CElviNElviP. IMG DIAGNOSTIC IMAGING PROCE [facility] Patient Status (04/25/2021 4:46 AM MEETING PLANNER) athologist Signature O2 Flow 4.5 L/min 04/25/2021 STMA 4:50 AM MEETING PLANNER Device BPAP 04/25/2021 STMA 4:50 AM MEETING PLANNER Spont. 22 04/25/2021 STMA breaths/min 4:50 AM MEETING PLANNER Specimen Anatomical Collection Method Collection Time Receive d Time (Source) Location / / Volume Laterality Blood 04/25/2021 4:46 AM 4:50 MEETING PLANNER AM MEETING PLANNER Alexis Peraza P.A.-C. LAB BLOOD NON ADD-ON Performing Organization Address City/State/ZIP Code Phon e Number [facility] - [address] [place], [place] [address] [place] [address] [facility] [address] (ABNORMAL) Blood Gas with Coox, Arterial (04/25/2021 4:46 AM MEETING PLANNER) athologist Signature pO2 72 (L) 83 - 108 04/25/2021 STMA mm Hg 4:52 AM MEETING PLANNER pCO2 43 32 - 45 mm 04/25/2021 STMA Hg 4:52 AM MEETING PLANNER pH 7.44 7.35 - 04/25/2021 STMA 7.45 pH 4:52 AM MEETING PLANNER Base Excess 6 (H) -2 - 3 04/25/2021 STMA mmol/L 4:52 AM MEETING PLANNER HCO3 30 (H) 22 - 26 04/25/2021 STMA mmol/L 4:52 AM MEETING PLANNER Hemoglobin, B 11.1 (L) 11.6 - 04/25/2021 STMA 15.0 g/dL 4:52 AM MEETING PLANNER O2Hb 93.6 (L) 94.0 - 04/25/2021 STMA 98.0 % 4:52 AM MEETING PLANNER COHb 1.5 <3.0 % 04/25/2021 STMA 4:52 AM MEETING PLANNER MetHb <1.0 <1.5 % 04/25/2021 STMA 4:52 AM MEETING PLANNER CtO2 14.7 (L) 18.0 - 04/25/2021 STMA 21.0 vol % 4:52 AM MEETING PLANNER Arterial L-Radial 04/25/2021 STMA Sample Site 4:52 AM MEETING PLANNER Comment: Felice's test abnormal. Specimen Anatomical Collection Method Collection Time Receive d Time (Source) Location / / Volume Laterality Blood (Blood, 04/25/2021 4:46 AM 04/25/20 4:50 Arterial) MEETING PLANNER AM MEETING PLANNER Alexis Peraza P.A.-C. LAB BLOOD NON ADD-ON Performing Organization Address City/State/ZIP Code Phon e Number [facility] - [address] [place], [place] [address] [facility] [place] [address] [facility] [address] Clozapine (Clozaril), Level (04/25/2021 4:40 AM MEETING PLANNER) [facility] Method Time Signature Clozapine 395 350 - 600 ng/mL 04/25/2021 SDSC 6:15 PM MEETING PLANNER Norclozapine 186 Not well 04/25/2021 SDSC established 6:15 PM MEETING PLANNER ng/mL Clozapine+Norclo 581 Not well 04/25/2021 SDSC zapine Total established 6:15 PM MEETING PLANNER ng/mL Comment: ----ADDITIONAL INFORMATION---- This test was developed and its performa nce characteristics determined by [facility] in a manner consistent with CLIA requirements. This test has not been cleared or approved by the U.[place] d and Drug Administration. Specimen Anatomical Collection Method Collection Time Receive d Time (Source) Location / / Volume Laterality Blood (Blood, 04/25/2021 4:40 AM 04/25/20 Venous) MEETING PLANNER 12:48 PM MEETING PLANNER Alexis Peraza P.A.-C. LAB BLOOD NON ADD-ON Performing Organization Address City/[facility] Phon e Number [facility] [address] ART [place], [place] [address] [address] [facility] [place] [address] Laboratory Medicine and Pathology [address] ART (ABNORMAL) Magnesium (04/25/2021 4:40 AM MEETING PLANNER) P athologist Signature Magnesium, S 2.4 (H) 1.7 - 2.3 04/25/2021 DTL mg/dL 5:53 AM MEETING PLANNER Specimen Anatomical Collection Method Collection Time Receive d Time (Source) Location / / Volume Laterality Blood (Blood, 04/25/2021 4:40 AM 04/25/20 5:30 Venous) MEETING PLANNER AM MEETING PLANNER Alexis Peraza P.A.-C. LAB BLOOD ADD-ON Performing Organization Address City/[facility] Phon e Number [facility] - [address] [place] [address] [facility] [place] [address] [facility] [address] [facility] (ABNORMAL) CBC without Differential (04/25/2021 4:40 AM MEETING PLANNER) Patholo gist Method Time Signature Hemoglobin 10.9 (L) 11.6 - 04/25/2021 DTL 15.0 g/dL 5:22 AM MEETING PLANNER Hematocrit 34.6 (L) 35.5 - 04/25/2021 DTL 44.9 % 5:22 AM MEETING PLANNER Erythrocytes 3.84 (L) 3.92 - 04/25/2021 DTL 5.13 5:22 AM MEETING PLANNER x10(12)/L MCV 90.1 78.2 - 04/25/2021 DTL 97.9 fL 5:22 AM MEETING PLANNER RBC Distrib Width 14.0 12.2 - 04/25/2021 DTL 16.1 % 5:22 AM MEETING PLANNER Platelet Count 186 157 - 371 04/25/2021 DTL x10(9)/L 5:22 AM MEETING PLANNER Leukocytes 5.5 3.4 - 9.6 04/25/2021 DTL x10(9)/L 5:22 AM MEETING PLANNER Specimen Anatomical Collection Method Collection Time Receive d Time (Source) Location / / Volume Laterality Blood (Blood, 04/25/2021 4:40 AM 04/25/20 5:12 Venous) MEETING PLANNER AM MEETING PLANNER Alexis Peraza P.A.-C. LAB BLOOD ADD-ON Performing Organization Address City/State/ZIP Code Phon e Number [facility] - [address] [place], [place] [address] [facility] [place] [address] Laboratories[facility] [address] (ABNORMAL) Basic Metabolic Panel (04/25/2021 4:40 AM MEETING PLANNER) P athologist Signature Potassium, S 4.2 3.6 - 5.2 04/25/2021 DTL mmol/L 5:53 AM MEETING PLANNER Sodium, S 147 (H) 135 - 145 04/25/2021 DTL mmol/L 5:53 AM MEETING PLANNER Chloride, S 111 (H) 98 - 107 04/25/2021 DTL mmol/L 5:53 AM MEETING PLANNER Bicarbonate, S 27 22 - 29 04/25/2021 DTL mmol/L 5:53 AM MEETING PLANNER Anion Gap 9 7 - 15 04/25/2021 DTL 5:53 AM MEETING PLANNER BUN (Blood Urea 35 (H) 6 - 21 04/25/2021 DTL Nitrogen), S mg/dL 5:53 AM MEETING PLANNER Creatinine 0.68 0.59 - 04/25/2021 DTL 1.04 mg/dL 5:53 AM MEETING PLANNER eGFR-Non >90 >=60 04/25/2021 DTL Black/ mL/min/BSA 5:53 AM MEETING PLANNER Albanian Comment: ----ADDITIONAL INFORMATION---- Estimated GFR calculated using the 2009 CKD_EPI creatinine equation. eGFR-Black/ >90 >=60 mL/min/BSA 2020 5:53 AM MEETING PLANNER DTL Comment: ----ADDITIONAL INFORMATION---- Estimated GFR calculated using the 2009 CKD_EPI creatinine equation. Calcium, Total, S 8.8 8.8 - 10.2 mg/dL 04/25/2021 5:53 AM MEETING PLANNER DTL Glucose, S 133 70 - 140 mg/dL 04/25/2021 5:53 AM MEETING PLANNER D TL Specimen Anatomical Collection Method Collection Time Receive d Time (Source) Location / / Volume Laterality Blood (Blood, 04/25/2021 4:40 AM 04/25/20 5:30 Venous) MEETING PLANNER AM MEETING PLANNER Alexis Peraza P.A.-C. LAB BLOOD ADD-ON Performing Organization Address City/[facility] Phon e Number [facility] - [address] [place] [address] Thromboelastograph, Kaolin, Blood (04/25/2021 4:38 AM MEETING PLANNER) P athologist Signature R, Kaolin, TEG 5.5 4.0 - 9.0 04/25/2021 STMA min 5:42 AM MEETING PLANNER K, Kaolin, TEG 1.5 0.9 - 1.7 04/25/2021 STMA min 5:42 AM MEETING PLANNER Angle, Kaolin, 72.5 66.2 - 80.3 04/25/2021 STMA TEG degrees 5:42 AM MEETING PLANNER MA, Kaolin, 73.9 55.2 - 77.0 04/25/2021 STMA TEG mm 5:42 AM MEETING PLANNER Ly30, Kaolin, 1.3 0.0 - 4.8 % 04/25/2021 STMA TEG 5:42 AM MEETING PLANNER Specimen Anatomical Collection Method Collection Time Receive d Time (Source) Location / / Volume Laterality Blood (Blood, 04/25/2021 4:38 AM 04/25/20 4:38 Venous) MEETING PLANNER AM MEETING PLANNER Haley Canales M.D. LAB BLOOD NON ADD-ON Performing Organization Address City/[facility] Phon e Number [facility] - [address] [place] [address] [facility] STMA [place] [address] [facility] [place] [address] DX Chest Portable 1 View (04/25/2021 4:11 AM MEETING PLANNER) Anatomical Region Laterality Modality Chest, Thoracic RST LOS, Thoracic ARZ LOS, Thoracic N/A Digital Radiography FLA LOS Specimen (Source) Anatomical Collection Method Collection Time Re ceived Time Location / / Volume Laterality 04/25/2021 4:13 AM MEETING PLANNER Impressions 04/25/2021 9:31 AM MEETING PLANNER Since yesterday, enteric tube has been repositioned with tip and sidehole below the diaphragm. Postoperat armida changes left lung. Low lung volumes with bilateral patchy airspace opacities . No pneumothorax. Prominent fat pad cardiac apex Narrative 04/25/2021 9:31 AM MEETING PLANNER EXAM: ??DX CHEST PORTABLE 1 VIEW Procedure [...] apex Alexis Peraza P.A.-C. IMG DIAGNOSTIC IMAGING GA OCEDURES Glucose, POCT (04/25/2021 3:34 AM MEETING PLANNER) athologist Signature Glucose, POCT, 129 70 - 140 04/25/2021 PCLX B mg/dL 3:35 AM MEETING PLANNER Last Intake NPO 04/25/2021 PCLX 3:35 AM MEETING PLANNER Specimen Anatomical Collection Method Collection Time Receive d Time (Source) Location / / Volume Laterality Blood 04/25/2021 3:34 AM 3:36 MEETING PLANNER AM MEETING PLANNER Unknown Provider LAB POCT ORDERABLES-MANUAL Performing Organization Address City/State/ZIP Code Phon e Number [facility] [address] [place] [address] [facility] [place] [address] Dawn POC [address] Glucose, POCT (04/25/2021 12:06 AM MEETING PLANNER) athologist Signature Glucose, POCT, 118 70 - 140 04/25/2021 PCLX B mg/dL 12:08 AM MEETING PLANNER Last Intake NPO 04/25/2021 PCLX 12:08 AM MEETING PLANNER Specimen Anatomical Collection Method Collection Time Receive d Time (Source) Location / / Volume Laterality Blood 04/25/2021 12:06 04/25/2021 AM MEETING PLANNER 12:08 AM MEETING PLANNER Unknown Provider LAB POCT ORDERABLES-MANUAL Performing Organization Address City/State/ZIP Code Phon e Number [facility] [address] [place] [address] PCLX [facility] [place] [address] Dawn POC [address] SW DX Abdomen Portable Anterior Posterior 1 View (2021 11:05 PM MEETING PLANNER) Anatomical Region Laterality Modality Abdomen, Abdominal RST LOS, Abdominal ARZ LOS, N/A Digital Radiography Abdominal FLA LOS Specimen (Source) Anatomical Collection Method Collection Time Re ceived Time Location / / Volume Laterality 04/25/2021 12:16 AM MEETING PLANNER Impressions 04/25/2021 9:06 AM MEETING PLANNER Since earlier today at 1411 hours, Gastrografin is located within stomach and the dilated small bowel in t he abdomen. No Gastrografin in the colon. Enteric tube with sidehole just d istal to the gastroesophageal junction. Narrative 04/25/2021 9:06 AM MEETING PLANNER EXAM: ??DX ABDOMEN PORTABLE ANTERIOR POSTERIOR 1 [...] junction. Alexis Peraza P.A.-C. IMG DIAGNOSTIC IMAGING GA OCEDURES (ABNORMAL) Prothrombin Time (PT) (2021 6:57 PM MEETING PLANNER) [facility] Method Time Signature Prothrombin 13.5 (H) 9.4 - 12.5 2021 STMA Time, P sec 7:17 PM MEETING PLANNER INR 1.2 0.9 - 1.1 2021 STMA 7:17 PM MEETING PLANNER Comment: ----ADDITIONAL INFORMATION---- Standard intensity warfarin therapeutic range: 2.0 to 3.0 ?? High intensity warfarin therapeutic rang e: 2.5 to 3.5 Specimen Anatomical Collection Method Collection Time Receive d Time (Source) Location / / Volume Laterality Blood (Blood, 2021 6:57 PM 04/24/20 7:01 Venous) MEETING PLANNER PM MEETING PLANNER Alexis Peraza P.A.-C. LAB BLOOD ADD-ON Performing Organization Address City/[facility] Phon e Number [facility] - [address] [place], [place] [address] [facility] [address] Laboratories-[address] Lactate (2021 6:57 PM MEETING PLANNER) athologist [facility] Lactate, P 1.4 0.5 - 2.2 2021 STMA mmol/L 7:13 PM MEETING PLANNER Specimen Anatomical Collection Method Collection Time Receive d Time (Source) Location / / Volume Laterality Blood (Blood, 2021 6:57 PM 04/24/20 7:01 Venous) MEETING PLANNER PM MEETING PLANNER Alexis Peraza P.A.-C. LAB BLOOD NON ADD-ON Performing Organization Address City/[facility]/RUST Code Phon e Number [facility] - [address] [place], [place] [address] [facility] [place] [address] Laboratories-[address] CBC without Differential (2021 6:57 PM MEETING PLANNER) athologist Signature Hemoglobin 11.7 11.6 - 2021 STMA 15.0 g/dL 7:04 PM MEETING PLANNER Hematocrit 36.7 35.5 - 2021 STMA 44.9 % 7:04 PM MEETING PLANNER Erythrocytes 4.05 3.92 - 2021 STMA 5.13 7:04 PM MEETING PLANNER x10(12)/L MCV 90.6 78.2 - 2021 STMA 97.9 fL 7:04 PM MEETING PLANNER RBC Distrib Width 14.1 12.2 - 2021 STMA 16.1 % 7:04 PM MEETING PLANNER Platelet Count 185 157 - 371 2021 STMA x10(9)/L 7:04 PM MEETING PLANNER Leukocytes 5.6 3.4 - 9.6 2021 STMA x10(9)/L 7:56 PM MEETING PLANNER Comment: Results confirmed by smear. Specimen Anatomical Collection Method Collection Time Receive d Time (Source) Location / / Volume Laterality Blood (Blood, 2021 6:57 PM 04/24/20 7:01 Venous) MEETING PLANNER PM MEETING PLANNER Alexis Peraza P.A.-C. LAB BLOOD ADD-ON Performing Organization Address City/State/ZIP Code Phon e Number [facility] - [address] [place], [place] [address] [facility] [place] [address] Laboratories-[facility] [address] (ABNORMAL) Basic Metabolic Panel (2021 6:57 PM MEETING PLANNER) P athologist Signature Potassium, P 3.7 3.6 - 5.2 2021 STMA mmol/L 7:17 PM MEETING PLANNER Sodium, P 144 135 - 145 2021 STMA mmol/L 7:17 PM MEETING PLANNER Chloride, P 107 98 - 107 2021 STMA mmol/L 7:17 PM MEETING PLANNER Bicarbonate, P 27 22 - 29 2021 STMA mmol/L 7:17 PM MEETING PLANNER Anion Gap, P 10 7 - 15 2021 STMA 7:17 PM MEETING PLANNER BUN (Blood Urea 34 (H) 6 - 21 2021 STMA Nitrogen), P mg/dL 7:17 PM MEETING PLANNER Creatinine 0.65 0.59 - 2021 STMA 1.04 mg/dL 7:17 PM MEETING PLANNER eGFR-Black/Afri >90 >=60 2021 STMA can Albanian mL/min/BSA 7:17 PM MEETING PLANNER Comment: ----ADDITIONAL INFORMATION---- Estimated GFR calculated using the 2009 CKD_EPI creatinine equation. eGFR Non-Black/ >90 >=60 mL/min/BSA 2021 7:17 PM MEETING PLANNER STMA Comment: ----ADDITIONAL INFORMATION---- Estimated GFR calculated using the 2009 CKD_EPI creatinine equation. Calcium, Total, P 8.9 8.8 - 10.2 mg/dL 2021 7:17 PM MEETING PLANNER STMA Glucose, P 146 (H) 70 - 140 mg/dL 2021 7:17 PM MEETING PLANNER S TMA Specimen Anatomical Collection Method Collection Time Receive d Time (Source) Location / / Volume Laterality Blood (Blood, 2021 6:57 PM 04/24/20 7:01 Venous) MEETING PLANNER PM MEETING PLANNER Alexis Peraza P.A.-C. LAB BLOOD ADD-ON Performing Organization Address City/State/[facility] Phon e Number [facility] - [address] [place], [place] [address] [facility] [place] [address] Laboratories-[facility] [address] Clozapine (Clozaril), Level (2021 2:55 PM MEETING PLANNER) [facility] Method Time Signature Clozapine 537 350 - 600 ng/mL 04/25/2021 [facility] 6:15 PM MEETING PLANNER Norclozapine 237 Not well 04/25/2021 [facility] established 6:15 PM MEETING PLANNER ng/mL Clozapine+Norclo 774 Not well 04/25/2021 [facility] zapine Total established 6:15 PM MEETING PLANNER ng/mL Comment: ----ADDITIONAL INFORMATION---- This test was developed and its performa nce characteristics determined by [facility] in a manner consistent with CLIA requirements. This test has not been cleared or approved by the U.S. Jeff d and Drug Administration. Specimen Anatomical Collection Method Collection Time Receive d Time (Source) Location / / Volume Laterality Blood (Blood, 2021 2:55 PM 04/25/20 21 Venous) MEETING PLANNER 12:48 PM MEETING PLANNER Sonido Woodall P.A.-C. LAB BLOOD NON ADD-ON Performing Organization Address City/[facility]/ZIP Code Phon e Number [facility] [address] [place], [place] [address] [address] [facility] [place] [address] Laboratory Medicine and Pathology [address] RAT Troponin T, 2H/6H, 5th Gen (2021 2:55 PM MEETING PLANNER) [facility] Method Time Signature Troponin T, 2 10 <=10 ng/L 2021 STMA hr, 5th gen 3:28 PM MEETING PLANNER 2H Delta -1 ng/L 2021 STMA 3:28 PM MEETING PLANNER 2H Delta Not Changing 2021 STMA Interp 3:28 PM MEETING PLANNER Troponin T, 6 CANCELED ng/L 2021 STMA hr, 5th gen 3:28 PM MEETING PLANNER Comment: Result canceled by the saroj cormier Specimen Anatomical Collection Method Collection Time Receive d Time (Source) Location / / Volume Laterality Blood (Blood, 2021 2:55 PM 04/24/20 3:00 Venous) MEETING PLANNER PM MEETING PLANNER Narrative [facility] - 2021 3:28 PM MEETING PLANNER Specimen Information: Specimen ID: [id number] Specimen Type: Blood Specimen Collection Start Date: ??2:55 PM Specimen Received Date: 2021 ??3: 00 PM Specimen ID: [id number] Specimen Type: Blood Specimen Collection Start Date: ??3:28 PM Specimen Received Date: 2021 ??3: 28 PM Alexis Peraza P.A.-C. LAB BLOOD TROPONIN Performing Organization Address City/State/ZIP Code Phon e Number [facility] - [address] [place] [address] [place] [address] Laboratories-[facility] 200 [facility] SARS Coronavirus 2, RNA, Rapid POC, V Asymptomatic (2021 2:29 PM MEETING PLANNER) [facility] Method Time Signature SARS Undetected Undetected 2021 DTLR Coronavirus-2 2:49 PM MEETING PLANNER , RNA, Rapid POC, V Comment: Negative for SARS-CoV-2. The GPMESS COVID-19 test is a molecular erin t for SARS-CoV-2, the virus that causes COVID- 19. A Negative result means that the Cue COV ID-19 test did not detect SARS-CoV-2 virus in your sample. Cue COVID-19 test uses the damntheradio nitFreeATM System. This test has received Emergency Use Authorization (EUA) by the U.S. Food and Drug Administration (FDA) and is used per man ufacturer instructions. Performance characteristic s were verified by [facility] in a manner consistent with CLIA requirements. Fact sheets for this Emerg ency Use Authorization (EUA) can be found at the following links: Providers: https://Enbridge.Altia/documentation/prov iders.pdf Patients: https://Enbridge.Altia/documentation/dinora ents.pdf SARS Coronavirus 2, Source Nasopharynx DEFAULT 2021 2:49 PM MEETING PLANNER DTLR Specimen Anatomical Collection Method Collection Time Receive d Time (Source) Location / / Volume Laterality Varies 2021 2:29 PM 2:29 (Nasopharynx) MEETING PLANNER PM MEETING PLANNER Alexis Peraza P.A.-C. LAB MICROBIOLOGY - GENERA L ORDERABLES Performing Organization Address City/State/ZIP Code Phon e Number PERFORMING LABS, RE[place] [address] INTERFACE Ref Interface [address] DTLR [facility]forming [facility], [place] [address] DX Abdomen Portable Anterior Posterior 1 View (2021 2:17 PM MEETING PLANNER) Anatomical Region Laterality Modality Abdomen, Abdominal RST LOS, Abdominal ARZ LOS, N/A Digital Radiography Abdominal FLA LOS Specimen (Source) Anatomical Collection Method Collection Time Re ceived Time Location / / Volume Laterality 2021 2:22 PM MEETING PLANNER Impressions 2021 2:23 PM MEETING PLANNER Gastric tube advanced with the tip and side-port now in the proximal stomach. Gas-filled, dilated lo ops of small bowel. Narrative 2021 2:23 PM MEETING PLANNER EXAM: ??DX ABDOMEN PORTABLE ANTERIOR POSTERIOR 1 VIEW Procedure Note Willie Kennedy M.D. - 2021Formatt ing of this note might be different from the original. EXAM: DX ABDOMEN PORTABLE ANTERIOR POSTE RIOR 1 VIEW IMPRESSION: Gastric tube advanced with the tip and s sybil-port now in the proximal stomach. Gas-filled, dilated lo ops of small bowel. Alexis Peraza P.A.-C. IMG DIAGNOSTIC IMAGING GA OCEDURES Patient Status (2021 1:00 PM MEETING PLANNER) P athologist Signature O2 Flow 3.0L L/min 2021 STMA 1:08 PM MEETING PLANNER Device NC 2021 STMA 1:08 PM MEETING PLANNER Spont. 27 2021 STMA breaths/min 1:08 PM MEETING PLANNER Specimen Anatomical Collection Method Collection Time Receive d Time (Source) Location / / Volume Laterality Blood 2021 1:00 PM 1:08 MEETING PLANNER PM MEETING PLANNER Alexis Peraza P.A.-C. LAB BLOOD NON ADD-ON Performing Organization Address City/[facility] Phon e Number [facility] - [address] Calcium, Ionized (2021 1:00 PM MEETING PLANNER) athologist Signature Calcium, 5.00 4.65 - 5.30 2021 STMA Ionized, B mg/dL 1:11 PM MEETING PLANNER Specimen Anatomical Collection Method Collection Time Receive d Time (Source) Location / / Volume Laterality Blood (Blood, 2021 1:00 PM 04/24/20 1:08 Venous) MEETING PLANNER PM MEETING PLANNER Alexis Peraza P.A.-C. LAB BLOOD NON ADD-ON Performing Organization Address City/[facility] Phon e Number [facility] - [address] [place], [place] [address] [place] [id number] [place] [address] (ABNORMAL) Blood Gas with Coox, Arterial (2021 1:00 PM MEETING PLANNER) athologist Signature pO2 72 (L) 83 - 108 2021 STMA mm Hg 1:11 PM MEETING PLANNER pCO2 40 32 - 45 mm 2021 STMA Hg 1:11 PM MEETING PLANNER pH 7.40 7.35 - 2021 STMA 7.45 pH 1:11 PM MEETING PLANNER Base Excess 1 -2 - 3 2021 STMA mmol/L 1:11 PM MEETING PLANNER HCO3 25 22 - 26 2021 STMA mmol/L 1:11 PM MEETING PLANNER Hemoglobin, B 12.6 11.6 - 2021 STMA 15.0 g/dL 1:11 PM MEETING PLANNER O2Hb 92.3 (L) 94.0 - 2021 STMA 98.0 % 1:11 PM MEETING PLANNER COHb 1.1 <3.0 % 2021 STMA 1:11 PM MEETING PLANNER MetHb 1.1 <1.5 % 2021 STMA 1:11 PM MEETING PLANNER CtO2 16.4 (L) 18.0 - 2021 STMA 21.0 vol % 1:11 PM MEETING PLANNER Arterial R-Radial 2021 STMA Sample Site 1:11 PM MEETING PLANNER Specimen Anatomical Collection Method Collection Time Receive d Time (Source) Location / / Volume Laterality Blood (Blood, 2021 1:00 PM 04/24/20 1:08 Arterial) MEETING PLANNER PM MEETING PLANNER Alexis Peraza P.A.-C. LAB BLOOD NON ADD-ON Performing Organization Address City/State/RUST Code Phon e Number [facility] - [address] [place] [address] [address] [place] [address] Laboratories-[facility] 200 [facility] (ABNORMAL) Hepatic Function Panel (2021 12:57 PM MEETING PLANNER) [facility] gist Method Time Signature Bilirubin, Total, S 0.5 <=1.2 2021 DTL mg/dL 2:25 PM MEETING PLANNER Bilirubin, Direct, S <0.2 0.0 - 0.3 2021 DTL mg/dL 2:25 PM MEETING PLANNER Aspartate 18 8 - 43 2021 DTL Aminotransferase U/L 2:25 PM MEETING PLANNER (AST), S Alanine 21 7 - 45 2021 DTL Aminotransferase U/L 2:25 PM MEETING PLANNER (ALT), S Alkaline 123 (H) 35 - 104 2021 DTL Phosphatase, S U/L 2:25 PM MEETING PLANNER Albumin, S 4.2 3.5 - 5.0 2021 DTL g/dL 2:25 PM MEETING PLANNER Protein, Total, S 6.7 6.3 - 7.9 2021 DTL g/dL 2:25 PM MEETING PLANNER Specimen Anatomical Collection Method Collection Time Receive d Time (Source) Location / / Volume Laterality Blood (Blood, 2021 12:57 2021 2:05 Venous) PM MEETING PLANNER PM MEETING PLANNER Alexis Peraza P.A.-C. LAB BLOOD ADD-ON Performing Organization Address [facility] Phon e Number [facility] - [address] [place], [place] [address] [facility] [place] [address] Laboratories-[address] Type and Screen (with reflex Antibody ID) (2021 12:57 PM MEETING PLANNER) Patholo gist Method Time Signature ABORh O Pos Not 2021 STRM applicable 1:33 PM MEETING PLANNER Antibody Negative Negative 2021 STRM Screen 1:43 PM MEETING PLANNER Type & Screen 04/27/2021 2021 STRM Expiration 23:59 1:33 PM MEETING PLANNER Testing Dawn DEFAULT 2021 STRM Location 1:07 PM MEETING PLANNER Specimen Anatomical Collection Method Collection Time Receive d Time (Source) Location / / Volume Laterality Blood (Blood, 2021 12:57 2021 1:07 Venous) PM MEETING PLANNER PM MEETING PLANNER Alexis Peraza P.A.-C. LAB BLOOD BANK TEST ORDER MARIA E Performing Organization Address [facility] Phon e Number [facility] - [address] [place], [place] [address] [facility] [address] CBC without Differential (2021 12:57 PM MEETING PLANNER) P athologist Signature Hemoglobin 12.8 11.6 - 2021 DTL 15.0 g/dL 2:11 PM MEETING PLANNER Hematocrit 41.2 35.5 - 2021 DTL 44.9 % 2:11 PM MEETING PLANNER Erythrocytes 4.54 3.92 - 2021 DTL 5.13 2:11 PM MEETING PLANNER x10(12)/L MCV 90.7 78.2 - 2021 DTL 97.9 fL 2:11 PM MEETING PLANNER RBC Distrib Width 14.2 12.2 - 2021 DTL 16.1 % 2:11 PM MEETING PLANNER Platelet Count 199 157 - 371 2021 DTL x10(9)/L 2:11 PM MEETING PLANNER Leukocytes 5.9 3.4 - 9.6 2021 DTL x10(9)/L 2:11 PM MEETING PLANNER Specimen Anatomical Collection Method Collection Time Receive d Time (Source) Location / / Volume Laterality Blood (Blood, 2021 12:57 2021 2:01 Venous) PM MEETING PLANNER PM MEETING PLANNER Alexis Peraza P.A.-C. LAB BLOOD ADD-ON Performing Organization Address City/State/ZIP Code Phon e Number [facility] - [address] [place], [place] [address] [facility] [place] [address] Laboratories-[facility] [address] (ABNORMAL) Basic Metabolic Panel (2021 12:57 PM MEETING PLANNER) P athologist Signature Potassium, S 4.1 3.6 - 5.2 2021 DTL mmol/L 2:25 PM MEETING PLANNER Sodium, S 148 (H) 135 - 145 2021 DTL mmol/L 2:25 PM MEETING PLANNER Chloride, S 112 (H) 98 - 107 2021 DTL mmol/L 2:25 PM MEETING PLANNER Bicarbonate, S 23 22 - 29 2021 DTL mmol/L 2:25 PM MEETING PLANNER Anion Gap 13 7 - 15 2021 DTL 2:25 PM MEETING PLANNER BUN (Blood Urea 35 (H) 6 - 21 2021 DTL Nitrogen), S mg/dL 2:25 PM MEETING PLANNER Creatinine 0.95 0.59 - 2021 DTL 1.04 mg/dL 2:25 PM MEETING PLANNER eGFR-Non 63 >=60 2021 DTL Black/ mL/min/BSA 2:25 PM MEETING PLANNER Albanian Comment: ----ADDITIONAL INFORMATION---- Estimated GFR calculated using the 2009 CKD_EPI creatinine equation. eGFR-Black/ 72 >=60 mL/min/BSA 2020 2:25 PM MEETING PLANNER DTL Comment: ----ADDITIONAL INFORMATION---- Estimated GFR calculated using the 2009 CKD_EPI creatinine equation. Calcium, Total, S 9.2 8.8 - 10.2 mg/dL 2021 2:25 PM MEETING PLANNER DTL Glucose, S 145 (H) 70 - 140 mg/dL 2021 2:25 PM MEETING PLANNER D TL Specimen Anatomical Collection Method Collection Time Receive d Time (Source) Location / / Volume Laterality Blood (Blood, 2021 12:57 2021 2:05 Venous) PM MEETING PLANNER PM MEETING PLANNER Alexis Peraza P.A.-C. LAB BLOOD ADD-ON Performing Organization Address City/[facility] Phon e Number [facility] - [address] [place], [place] [address] [facility] DTL [address] (ABNORMAL) Troponin T, Baseline, 5th gen (2021 12:57 PM MEETING PLANNER) P athologist Signature Troponin T, 11 (H) <=10 ng/L 2021 STMA Baseline, 5th 1:28 PM MEETING PLANNER gen Specimen Anatomical Collection Method Collection Time Receive d Time (Source) Location / / Volume Laterality Blood (Blood, 2021 12:57 2021 1:08 Venous) PM MEETING PLANNER PM MEETING PLANNER Alexis Peraza P.A.-C. LAB BLOOD TROPONIN Performing Organization Address City/[facility] Phon e Number [facility] - [address] [place], [place] [address] [facility] STMA [place] [address] (ABNORMAL) Lactate (2021 12:57 PM MEETING PLANNER) P athologist Signature Lactate, P 2.4 (H) 0.5 - 2.2 2021 STMA mmol/L 1:25 PM MEETING PLANNER Specimen Anatomical Collection Method Collection Time Receive d Time (Source) Location / / Volume Laterality Blood (Blood, 2021 12:57 2021 1:08 Venous) PM MEETING PLANNER PM MEETING PLANNER Alexis J Dickovich P.A.-C. LAB BLOOD NON ADD-ON Performing Organization Address [facility] Phon e Number [facility] - [address] (ABNORMAL) Thromboelastograph, Kaolin, Blood (2021 12:55 PM MEETING PLANNER) Patholo gist Method Time Signature R, Kaolin, TEG 11.5 (H) 4.0 - 9.0 2021 STMA min 2:43 PM MEETING PLANNER K, Kaolin, TEG 2.0 (H) 0.9 - 1.7 2021 STMA min 2:43 PM MEETING PLANNER Angle, Kaolin, 62.7 (L) 66.2 - 80.3 2021 STMA TEG degrees 2:43 PM MEETING PLANNER MA, Kaolin, 74.1 55.2 - 77.0 2021 STMA TEG mm 2:43 PM MEETING PLANNER Ly30, Kaolin, 1.1 0.0 - 4.8 % 2021 STMA TEG 2:43 PM MEETING PLANNER Specimen Anatomical Collection Method Collection Time Receive d Time (Source) Location / / Volume Laterality Blood (Blood, 2021 12:55 2021 Venous) PM MEETING PLANNER 12:55 PM MEETING PLANNER Alexis Peraza P.A.-C. LAB BLOOD NON ADD-ON Performing Organization Address [facility] Phon e Number [address] (ABNORMAL) CBC with Differential, Blood (2021 12:41 PM MEETING PLANNER) P athologist Signature Hemoglobin 12.7 11.6 - 2021 DTL 15.0 g/dL 3:23 PM MEETING PLANNER Hematocrit 40.6 35.5 - 2021 DTL 44.9 % 3:23 PM MEETING PLANNER Erythrocytes 4.45 3.92 - 2021 DTL 5.13 3:23 PM MEETING PLANNER x10(12)/L MCV 91.2 78.2 - 2021 DTL 97.9 fL 3:23 PM MEETING PLANNER RBC Distrib Width 14.2 12.2 - 2021 DTL 16.1 % 3:23 PM MEETING PLANNER Platelet Count 196 157 - 371 2021 DTL x10(9)/L 3:23 PM MEETING PLANNER Leukocytes 5.8 3.4 - 9.6 2021 DTL x10(9)/L 4:36 PM MEETING PLANNER Comment: Results confirmed by smear. Neutrophils 4.94 1.56 - 6.45 x10(9)/L 2021 4:36 P M MEETING PLANNER DTL Lymphocytes 0.39 (L) 0.95 - 3.07 x10(9)/L 2021 4:36 P M MEETING PLANNER DTL Monocytes 0.43 0.26 - 0.81 x10(9)/L 2021 4:36 PM MEETING PLANNER DTL Eosinophils <0.03 0.03 - 0.48 x10(9)/L 2021 4:36 P M MEETING PLANNER DTL Basophils <0.03 0.01 - 0.08 x10(9)/L 2021 4:36 PM MEETING PLANNER DTL Specimen Anatomical Collection Method Collection Time Receive d Time (Source) Location / / Volume Laterality Blood (Blood, 2021 12:41 2021 3:13 Venous) PM MEETING PLANNER PM MEETING PLANNER Jeanie Flores M.D. LAB BLOOD ADD-ON Performing Organization Address City/State/ZIP Code Phon e Number [facility] - [address] [place], [place] [address] [facility] [place] [address] Laboratories-[facility] [address] DX Chest Portable 1 View (2021 12:34 PM MEETING PLANNER) Anatomical Region Laterality Modality Chest, Thoracic RST LOS, Thoracic ARZ LOS, Thoracic N/A Digital Radiography FLA LOS Specimen (Source) Anatomical Collection Method Collection Time Re ceived Time Location / / Volume Laterality 2021 12:49 PM MEETING PLANNER Impressions 2021 12:52 PM MEETING PLANNER Since 04/23/2021, increased airspace opacities in the right upper lobe suspicious for pneumonitis. Other b ilateral airspace opacities/atelectasis are not significantly changed. Enteric t ube tip in the stomach with side port just above the GE junction; advancement recommended. Narrative 2021 12:52 PM MEETING PLANNER EXAM: ??DX CHEST PORTABLE 1 VIEW Procedure [...] recommended. Alexis Peraza P.A.-C. IMG DIAGNOSTIC IMAGING GA OCEDURES DX Abdomen Portable Anterior Posterior 1 View (2021 12:33 PM MEETING PLANNER) Anatomical Region Laterality Modality Abdomen, Abdominal RST LOS, Abdominal ARZ LOS, N/A Digital Radiography Abdominal FLA LOS Specimen (Source) Anatomical Collection Method Collection Time Re ceived Time Location / / Volume Laterality 2021 12:53 PM MEETING PLANNER Impressions 2021 12:55 PM MEETING PLANNER Gastric tube tip in the stomach with side port just above the GE junction; advancement recommended. Gas-f illed, dilated loops of small bowel predominantly in the central abdomen anne suring up to 5.4 cm, compatible with small bowel obstruction though the bowel gas pattern has improved compared to CT field scout image on 04/23/2021. Excreted IV c ontrast from CT yesterday in the bladder. Narrative 2021 12:55 PM MEETING PLANNER EXAM: ??DX ABDOMEN PORTABLE ANTERIOR POSTERIOR 1 [...] gas pattern has improved compared to CT field scout image on 04/23/2021. Excreted IV c ontrast from CT yesterday in the bladder. Alexis Peraza P.A.-C. IMG DIAGNOSTIC IMAGING GA OCEDURES Interpretation of Outside CT Abdomen and or Pelvis (2021 12:25 PM MEETING PLANNER) Anatomical Region Laterality Modality Abdomen, Pelvis, Abdominal RST LOS, Abdominal ARZ LOS, N/A Computed Tomography Abdominal FLA LOS, Other Specimen (Source) Anatomical Collection Method Collection Time Re ceived Time Location / / Volume Laterality 2021 12:46 PM MEETING PLANNER Impressions 2021 12:55 PM MEETING PLANNER 1. Findings consistent with a mid small bowel obstruction, which may be related to partial volvulus and/or adhesion. Carpenter el all appears viable, with no evidence of necrosis or perforation. 2. Mildly delayed left nephrogram, of un clear etiology 3. Opacities in both lung bases likely a cute infection/inflammation, possibly due to aspiration. Narrative 2021 12:55 PM MEETING PLANNER EXAM: ??INTERPRETATION OF OUTSIDE CT ABDOMEN AND [...] be related to partial volvulus and/or adhesion. Carpenter el all appears viable, with no evidence of necrosis or perforation. 2. Mildly delayed left nephrogram, of un clear etiology 3. Opacities in both lung bases likely a cute infection/inflammation, possibly due to aspiration. Alexis Peraza P.A.-C. IMG CT PROCEDURES ECG 12 Lead (2021 12:15 PM MEETING PLANNER) P athologist Signature Ventricular Rate 117 BPM MUSE ECG/Min GA Interval 142 ms MUSE QRSD Interval 86 ms MUSE QT Interval 318 ms MUSE QTC Interval 443 ms MUSE P [place] 48 degrees MUSE R [place] -4 degrees MUSE T Wave [place] 38 degrees MUSE Specimen Anatomical Collection Method Collection Time Receive d Time (Source) Location / / Volume Laterality 2021 12:15 2021 PM MEETING PLANNER 12:17 PM MEETING PLANNER Impressions MUSE - 2021 12:17 PM MEETING PLANNER Sinus tachycardia Premature ventricular complexes Cannot rule out Inferior infarct When compared with ECG of 27-MAY-2018 12 :37, Premature ventricular complexes are now present Minimal criteria for Inferior infarct ar e now present Reviewed by PHILIPPE Cleeste Narrative This result has an attachment that [...] Organization Address City/State/ZIP Code Phon e Number RICK MUSE NA documented in this encounter Visit Diagnoses Not on filedocumented in this encounter Admitting Diagnoses Diagnosis Obstruction Intestinal (HCC) documented in this encounter Administered Medications Inactive Administered Medications - up to 3 most recent administrations Medication Order MAR Action Action Date Dose Rate Site ARIPiprazole tablet 20 mg (ABILIFY) Given 04/28/2021 9:06 AM MEETING PLANNER 20 mg 20 mg, oral, Every morning, First dose (after last modification) on Sat04/28/21 at 0900 bisacodyL suppository 10 mg (DULCOLAX) Given 2021 8:50 PM MEETING PLANNER 10 mg 10 mg, rectal, 2 times daily PRN, constipation, Starting on 04/24/21 at 1235 citalopram tablet 20 mg (CeleXA) Given 04/28/2021 9:06 AM MEETING PLANNER 20 mg 20 mg, oral, Daily, First dose (after last modification) on [place] 04/27/21 at 0900 Given 04/27/2021 9:35 AM MEETING PLANNER 20 mg D5W infusion 10-250 mL/hr, intravenous, [...] 30 mg (CARDIZEM) Given 04/28/2021 12:01 PM MEETING PLANNER 30 mg 30 mg, oral, Every 6 hours scheduled, First dose (after last modification) on Sat04/26/21 at 1800 Given 04/28/2021 6:14 AM MEETING PLANNER 30 mg Given 04/28/2021 12:40 AM MEETING PLANNER 30 mg enoxaparin injection 40 mg Given 04/28/2021 9:07 AM MEETING PLANNER 40 mg Left Upper Arm (LOVENOX) (Back) 40 mg, subcutaneous, Daily, First dose on Sat04/25/21 at 1500 Given 04/25/2021 2:10 PM MEETING PLANNER 40 mg Left Lower Abdomen fluticasone furoate-vilanteroL 100-25 Given 04/28/2021 9:[address] 1 puff mcg/actuation inhaler 1 puff (BREO ELLIPTA DISKUS) 1 puff, inhalation, Daily (RT), First dose on Sat04/25/21 at 0800, fluticasone/vilanterol diskus 100/25 mcg was interchanged for fluticasone/salmeterol MDI 100/50 mcg Given 04/27/2021 9:34 AM MEETING PLANNER 1 puff Given 04/26/2021 7:47 AM MEETING PLANNER 1 puff HYDROmorphone (PF) injection 0.2 mg [...] 40 mg (PROTONIX) Given 04/28/2021 6:14 AM MEETING PLANNER 40 mg 40 mg, oral, Daily before breakfast, First dose on [facility] 04/27/21 at 0700, Swallow whole. Do NOT crush, chew, or split tablet. Given 04/27/2021 6:01 AM MEETING PLANNER 40 mg phenoL 1.4 % spray 1 spray (CHLORASEPTIC ) Given 04/25/2021 11:18 PM MEETING PLANNER 1 spray 1 spray, mouth/throat, As needed, [...] injection 3 mL Given 04/28/2021 9:09 AM MEETING PLANNER 3 mL 3 mL, intravenous, Every 12 hours scheduled, First dose on Sat04/24/21 at 2100, Peripheral Intravenous Catheter and Rapid Infusion Catheter, when no infusion to maintain patency Given 04/25/2021 8:10 AM MEETING PLANNER 3 mL Given 2021 8:35 PM MEETING PLANNER 3 mL sodium chloride 0.9 % injection 3 mL 3 mL, intravenous, As needed, line care, Peripheral Intravenous Catheter and Rapid Infusion Catheter, Starting on Sat04/25/21 at 1637, P rior to and following infusion and between multiple consecutive infusions. sodium chloride 0.9 % injection 3 mL Given 04/27/2021 8:42 PM MEETING PLANNER 3 mL 3 mL, intravenous, Every 12 hours scheduled, First dose on Sat04/25/21 at 2100, Peripheral Intravenous Catheter and Rapid Infusion Catheter: When no infusion to maintain patency. Given 04/27/2021 9:54 AM MEETING PLANNER 3 mL Given 04/26/2021 9:25 PM MEETING PLANNER 3 mL documented in this encounter Active and Recently Administered Medications Times are shown in MEETING PLANNER. Scheduled Medication Order 04/26/2021 04/27/2021 04/28/2021 ARIPiprazole [...] iven - Provider: Gem Ribeiro R.N., C.M.S.R.N.) 0906 [...] R.N.)1342 (Given - Provider: Gem Ribeiro R.N., Tye.EverS.R.NElvi) 30 mg, gastric tube, Every 6 hours sched uled, First dose (after last modification) on Sat04/25/21 at 1200 dilTIAZem tablet 30 mg (CARDIZEM) 1822 (Given - Provid er: Veronica Cohn R.N.) 0020 (Given - Provider: Miroslava Ewing R.N.)0601 (Given - Provider: Miroslava Ewing R.N.)1158 (Given - Provider: Gem Ribeiro R.N., KushS.R.NElvi)1824 (Given - Provider: Veronica Cohn R.N.) 0040 (Given - Provider: Kirstin Mueller R.N.)0614 (Given - Provider: Kirstin Mueller R.N.)1201 (Given - Provider: Chantell iRvera R.N.) 30 mg, oral, Every 6 hours scheduled, Fi rst dose (after last modification) on Sat04/26/21 at 1800 enoxaparin injection 40 mg (LOVENOX) 0907 (Not Given - Provider: Gem Ribeiro R.N., C.M.S.R.NElvi - Reason: Contraindicated - Comment: to hold [...] 0934 (Given - Provider: Gem Ribeiro R.N., Tye.M.S.R.NElvi - Comment: in BR) 0905 (Given - [...] Given - Pro vider: Gem Ribeiro R.N., C.Candelario.S.R.N. - Reason: Patient/family refused) 0952 (Not Given - Provider: Gem Ribeiro R.N., Tye.M.S.R.N. - Reason: Patient/family refused) 0907 (Not Given [...] (Given - Pro vider: Gem Ribeiro R.N., C.M.S.R.N.)2124 (Given - Provider: Veronica Cohn R.N.) 0954 (Given - Provider: Gem Ribeiro R.N., C.M.S.R.N.)2041 (Given - Provider: Veronica Cohn R.N.) 0909 [...] R.N.)1104 (Stopped - Provider: Gem Ribeiro R.N., C.EverS.R.NElvi) 75 mL/hr, intravenous, Continuous, Starting on Sat04/25/21 [...] COVID19 Pending 2021 2021 2021 2:49 PM MEETING PLANNER COVID19 Pending 04/27/2021 04/28/2021 04/28/2021 1:19 AM MEETING PLANNER documented as of this encounter
--- OUTSIDE RECORDS SUMMARY | 2022-03-08 10:09 | XMS_ITS | Encounter Summary ---
:1955 Author Organization [facility] Address [address] [place] [address] Care Team Providers Name Role Phone Unavailable Primary Care Provider Unavailable Reason for Visit Reason Onset Date Comments pertussis exposure 09/18/2018 Encounter Details Date Type Department Care Team Description 09/18/2018 Clinical Communication Division of ana maria Lyn ssis exposure Thoracic Surgery in [place], [facility] [address] [place], [place] [address] [facility] [address] [place], [place] [phone] (Work) [phone] Social History Tobacco Use Types Packs/Day Years [...] for this. Please call Naomi to advise [phone] documented in this encounter Plan of Treatment Not on filedocumented as of this encounter Visit Diagnoses Not on filedocumented in this encounter
--- OUTSIDE RECORDS SUMMARY | 2022-03-08 10:10 | XMS_ITS | Encounter Summary ---
:1955 Author Organization [facility] Address [address] [place] [address] Care Team Providers Name Role Phone Unavailable Primary Care Provider Unavailable Encounter Details Date Type Department Care Team Description 07/09/2018 Orders Only Division of Thoracic Surgery Fozia Ramsay in [facility] P.A.-C. [address] [facility] [address] [place] [address] [place], [place] [phone] (Wo rk) Social History Tobacco Use Types [...]
--- OUTSIDE RECORDS SUMMARY | 2022-03-08 10:10 | XMS_ITS | Encounter Summary ---
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 documented in this encounter Results [facility] Image Exam (06/30/2018 10:20 AM VEHICLE ASSEMBLY INSPECTOR) Specimen (Source) Anatomical Collection Method Collection Time Re ceived Time Location / / Volume Laterality 06/30/2018 10:19 AM VEHICLE ASSEMBLY INSPECTOR Narrative [facility] - 06/30/2018 11:56 AM VEHICLE ASSEMBLY INSPECTOR This order has been created and auto-finalized [...]
--- OUTSIDE RECORDS SUMMARY | 2022-03-08 10:10 | XMS_ITS | Encounter Summary ---
:1955 Author Organization [facility] Address [address] [place] [address] Care Team Providers Name Role Phone Unavailable Primary Care Provider Unavailable Reason for Visit Reason Onset Date Comments Preop 08/06/2018 Encounter Details Date Type Department Care Team Description 08/06/2018 Clinical Communication Division of Thoracic [place] , [place] [address] [facility] [address] [place] [phone] Social History Tobacco Use Types Packs/Day Years [...] her taking this medication prior to surgery. [phone] documented in this encounter Plan of Treatment Not on filedocumented as of this encounter Visit Diagnoses Not on filedocumented in this encounter
--- OUTSIDE RECORDS SUMMARY | 2022-03-08 10:10 | XMS_ITS | Encounter Summary ---
:1955 Author Organization [facility] Address [address] [place] [address] Care Team Providers Name Role Phone Unavailable Primary Care Provider Unavailable Encounter Details Date Type Department Care Team Description 08/07/2018 Surgery RST TRICIA BRISCOE OR Fany Lyn THORACOSCOPY, WEDGE [address] [facility] Jamar Mitchell RESECTION LUNG. [place], [place] [address] [facility] [[email or web address]] [id number] [place], [place] [phone] [phone] (Wo rk) Social History Tobacco Use Types [...] Case IDs Date Procedure Surgeon Location Status [id number] 08/07/18 THORACOSCOPY, WEDGE RESECTION LUNG. Fany Lyn [...] Discharge information provided on 08/09/2018 Contact information: [facility], 1 [facility]: [phone] documented in this encounter Medications at Time [...] Activity Level: Answer: Up Ad Robyn 08/07/18 3255 Precautions Other Precautions: fall, impulsive, cognition, respiratory, [...] daily living. Session ended upon entrance of elementary school social worker. Therapeutic Exercise - ROM ROM: [...] Handouts provided today: Exercises after chest surgery [id number] Communication: The patient's nurse was contacted and patient's status was discussed. Patient was left in bedside chair at end of session with call light in reach, all needs met and questions answered. Outcome Measures Current ADL Status: [facility] Inpatient Short Form: Putting on [...] CMS Modifier: CK Interpretation: Clinicians answer the [facility] Inpatient Short Form based on [...] Therapy Inpatient Treatment Note SUBJECTIVE Patient's Name: Saarh Reyes Referring/Attending: Fany Lyn M.D. Medical Diagnosis: [...] path deviation Stairs # of Assistants: 2 (FINANCE ADVISOR also present ) Level of Assistance: Minimal [...] someone coming infor lab draws once/month through [facility]. Patient and her sister confirmed that [...] AM Under the direction of Carolyn Gonzalez MANAGER OF ENGINEERING Mike Roman M.D., M.S. - 08/09/2018 10:14 [...] 400 mg QHS for schizophrenia; followed at [facility] in [place] (Dr. Minna Gramajo???Fran) normally. Dose and compliance [...] requirements, please contact the psychiatric pharmacist at [phone]. Madelin David Pharm.D., R.Ph. Jr Escobar M.D. - 08/08/2018 10:50 AM CDT SUBJECTIVE Patient's location is [place] [address] ?? I have seen and examined this [...] Sheldon Matson M.D. Thoracic Surgery Fellow Pgr: [id number] 08/08/18 10:42 AM Fany Lyn M.D. - [...] her dressings. ASSESSMENT / PLAN #1 Schizophrenia ([facility]) #2 Diabetes Mellitus Type 2 ([facility]) #3 Asthma Mild Intermittent ([facility]) #4 Obesity Body Mass Index 30-39.9 Adult [...] Date PHART 7.42 08/08/2018 PHART 7.35 08/07/2018 [id number] 44 08/08/2018 [id number] 50 (H) 08/07/2018 BEART 4 (H) 08/08/2018 [...] Full Code Jeanmarie Dunne M.D. PGY 2 [phone] DAT Jr Escobar M.D. - 08/07/2018 4:34 PM CDT SUBJECTIVE Patient's location is [place] [address] I have seen and examined this patient. [...] Dunne M.D. - 08/07/2018 3:14 PM CDT [facility] Admission HISTORY OF PRESENT ILLNESS Brief Summary: [...] fentanyl and oxycodone. Can consider a fentanyl FINANCE ADVISOR if necessary. -Hold meds: At this time [...] Date PHART 7.35 08/07/2018 PHART 7.37 08/07/2018 [id number] 50 (H) 08/07/2018 [id number] 48 (H) 08/07/2018 BEART 2 08/07/2018 BEART [...] Full Code Jeanmarie Dunne M.D. PGY 2 [phone] Carl Rodriguez M.D. - 08/07/2018 7:27 AM [...] 2 (HCC) ??? Edema Localized ??? Other Healthcare Specialist Current Drug Therapy ??? Metabolic Syndrome ??? [...] Prior Function / Occupational Profile Level of [place]: Independent with ADLs and functional transfers, Needs assistance with homemaking Lives With: Family (sister and [id number]) Receives Help From: Family ADL Assistance: Independent [...] Activity Level: Answer: Up Ad Robyn 08/07/18 1607 Precautions Other Precautions: fall, impulsive, cognition, respiratory, [...] Acute Hospital Inpatient Evaluation/Treatment SUBJECTIVE Patient's Name: Sarha Reyes Referring/Attending Provider: Fany Lyn M.D. Medical [...] 2 (HCC) ??? Edema Localized ??? Other Detention Current Drug Therapy ??? Metabolic Syndrome ??? [...] Prior Function / Occupational Profile Level of [place]: Independent with ADLs and functional transfers, Needs [...] Comments: Patient lives with her sister and [id number]-vud Home Equipment Home Adaptive Equipment: None Bathroom Equipment: Shower chair with back Dominant Hand: Right Family/Caregiver Present: No Activity Orders Start Ordered 08/08/18 0600 Activity: Up Ad Robyn Until discontinued Comments: Out of bed greater than 8 hours, including 6 or more walks and sitting in chair Question: Activity Level: Answer: Up Ad Robyn 08/07/18 2255 Precautions Other Precautions: fall, impulsive, cognition, respiratory, [...] Current ADL/IADL Function ADL Comments: see AM [facility] Bed Mobility - Supine to Sit # of Assistants: 2 Level of Assistance: Moderate assistance Cuing: Visual, Verbal, Tactile Comments: from [facility] bed, icreasing assist as patient beginning to [...] questions answered. Outcome Measures Current ADL Status: -[facility] Inpatient Short Form: Putting on and taking [...] CMS Modifier: CK Interpretation: Clinicians answer the -[facility] Inpatient Short Form based on [...] to interview. Primary care clinic and provider: [facility] Primary Language: Malian Header Setup Operator Services Used: No Legal Information: Legal Decision [...] Family members. Primary caregiver: Self Spirituality / Synagogue / Culture: No yazidism on file Employment: Unemployed Psychosocial Risk Factors [...] Communication: Can write, Talks, Understands speaking, Understands Malian, Reads It is anticipated that the patient will need assistance with Transfer to/from Bed, Chair, etc, Mobility, Transportation Use (drive car, use taxi/bus). ASSISTIVE DEVICES Patient has the following equipment: None Patient anticipates potentially needing the following additional equipment: Walker BOXER OPERATOR Formal and Informal Resources: Patient shares that she has someone come into the home to assist withher medications. She was not sure who this may be with. She also shared that she thinks she has a complex case manager through the [facility]. Her sister is her primary support. [...] with state of illness?: No Fear of halfway/extended hospitalization?: No Coping with recent loss/disruption in [...] agency. She had previously resided in a [facility] but recently decided to move in with her sister in the [facility]. Patient is on disability. She has [...] patient was placed on room air in [facility]. RN notified that lab will call when the patient is to be placed on oxygen if needed. Will follow up with RN around 0500. End of study note: RN stated patient remained on room air with home PAP device for nocturnal oxygen study. Electronically signed by: Sabrina Morillo R.R.T., Garcia 08/10/18 6:31 AM DAT Sabrina Morillo R.R.T., FannyRElviT. - 08/09/2018 10:45 [...] the day. Chest tube was removed by YIELD LOSS INSPECTOR in the afternoon. Patient improved from a [...] Left Radial (Active) Placement Date/Time: 08/07/18 (c) 9966 Hand Hygiene Performed Prior to Insertion: Yes [...] Left Radial (Active) Placement Date/Time: 08/07/18 (c) 0812 Hand Hygiene Performed Prior to Insertion: Yes [...] Left Radial (Active) Placement Date/Time: 08/07/18 (c) 0859 Hand Hygiene Performed Prior to Insertion: Yes [...] here for safety reasons. A single 28 [place]ong [place]onger chest tube was directed towards the apex. [...] Name Type Priority Associated Diagnoses Order [facility] Thoracic Surgery Outpatient Referral Routine Malignant [...] Provider LAB POCT ORDERABLES-MANUAL Performing Organization Address City/[facility] Code Phon e Number [facility] [address] [place] [address] Glucose, POCT (08/11/2018 9:23 AM CDT) Analysis [...] Provider LAB POCT ORDERABLES-MANUAL Performing Organization Address City/[facility] Code Phon e Number [facility]OC [facility] [address] [place] [address] Glucose, POCT (08/11/2018 6:10 AM CDT) Analysis [...] Provider LAB POCT ORDERABLES-MANUAL Performing Organization Address City/[facility] Code Phon e Number [facility] [address] [place] [address] Glucose, POCT (08/10/2018 10:20 PM CDT) P athologist Signature Glucose, POCT, 126 70 - 140 08/10/2018 [facility] mg/dL 10:27 PM CDT SERVICES Specimen Anatomical Collection Method Collection Time Receive d Time (Source) Location / / Volume Laterality Blood 08/10/2018 10:20 08/10/2018 PM CDT 10:27 PM CDT Unknown Provider LAB POCT ORDERABLES-MANUAL Performing Organization Address City/[facility] Phon e Number [facility]OC [facility] [address] [place] [address] Glucose, POCT (08/10/2018 6:19 PM CDT) Analysis [...] Provider LAB POCT ORDERABLES-MANUAL Performing Organization Address [facility] Phon e Number POC [facility] [address] [place] [address] (ABNORMAL) Glucose, POCT (08/10/2018 12:12 PM CDT) [...] Provider LAB POCT ORDERABLES-MANUAL Performing Organization Address City/[facility] Phon e Number POC [facility] [address] [place] [address] Glucose, POCT (08/10/2018 8:06 AM CDT) Analysis [...] Provider LAB POCT ORDERABLES-MANUAL Performing Organization Address [facility] Phon e Number POC [facility] [address] [place] [address] (ABNORMAL) Glucose, POCT (08/09/2018 9:32 PM CDT) [...] Provider LAB POCT ORDERABLES-MANUAL Performing Organization Address [facility] Phon e Number POC [facility] [address] [place] [address] Glucose, POCT (08/09/2018 5:49 PM CDT) Analysis [...] Provider LAB POCT ORDERABLES-MANUAL Performing Organization Address [facility] Phon e Number POC [facility] [address] [place] [address] DX Chest AP or PA and Lateral [...] Madina Nieves APRN C.N.P. IMG DIAGNOSTIC IMAGING [place] OCEDURES Glucose, POCT (08/09/2018 12:31 PM CDT) [...] [facility] [address] [place] [address] DX Chest AP or PA and Lateral [...] Provider LAB POCT ORDERABLES-MANUAL Performing Organization Address City/[facility] Code Phon e Number POC [facility] [address] [place] [address] Glucose, POCT (08/08/2018 4:53 PM CDT) Analysis [...] Provider LAB POCT ORDERABLES-MANUAL Performing Organization Address City/[facility] Code Phon e Number POC [facility] [address] [place] [address] (ABNORMAL) Glucose, POCT (08/08/2018 12:37 PM CDT) [...] Provider LAB POCT ORDERABLES-MANUAL Performing Organization Address City/[facility] Phon e Number POC [facility] [address] [place] [address] Glucose, POCT (08/08/2018 7:54 AM CDT) P [...] Address City/State/ZIP Code Phon e Number POC [facility] [address] [place] [address] DX Chest Portable 1 View (08/08/2018 5:45 [...] P athologist Signature FIO2 0.21 0.21=AIR 08/08/2018 [facility] 12:54 AM CDT [facility] Device NPAP 08/08/2018 [facility] 12:54 AM CDT [facility] Spont. 18 08/08/2018 [facility] breaths/min 12:54 AM CDT [facility] Specimen Anatomical Collection Method Collection Time Receive d Time (Source) Location / / Volume Laterality Blood 08/08/2018 12:54 08/08/2018 AM CDT 12:54 AM CDT Jeanmarie Dunne M.D. LAB BLOOD NON ADD-ON Performing Organization Address City/State/ZIP Code Phon e Number [facility] - [address] [place], [place] [address] [facility] (ABNORMAL) Blood Gas with Coox, Arterial (08/08/2018 12:54 AM CDT) [facility] Method Time Signature pO2 75 (L) 83 - 108 08/08/2018 [facility] mm Hg 12:57 AM CDT [facility]ATORIES [facility] pCO2 44 32 - 45 08/08/2018 [facility] mm Hg 12:57 AM CDT [facility] pH 7.42 7.35 - 08/08/2018 [facility] 7.45 pH 12:57 AM CDT [facility] Base Excess 4 (H) -2 - 3 08/08/2018 [facility] mmol/L 12:57 AM CDT [facility] HCO3 28 (H) 22 - 26 08/08/2018 [facility] mmol/L 12:57 AM CDT [facility] Hemoglobin, B 10.3 (L) 11.6 - 08/08/2018 [facility] 15.0 g/dL 12:57 AM CDT [facility] O2Hb 93.2 (L) 94.0 - 08/08/2018 [facility] 98.0 % 12:57 AM CDT [facility] COHb 2.1 <3.0 % 08/08/2018 [facility] 12:57 AM CDT [facility] MetHb <1.0 <1.5 % 08/08/2018 [facility] 12:57 AM CDT [facility] CtO2 13.6 (L) 18.0 - 08/08/2018 [facility] 21.0 vol 12:57 AM CDT LABORATORIES - [facility] Arterial Art Line 08/08/2018 [facility] Sample Site 12:57 AM CDT [facility] Specimen Anatomical Collection Method Collection Time Receive d Time (Source) Location / / Volume Laterality Blood (Blood, 08/08/2018 12:54 08/08/2018 Arterial) AM CDT 12:50 AM CDT Jeanmarie Dunne M.D. LAB BLOOD NON ADD-ON Performing Organization Address City/State/ZIP Code Phon e Number [facility] - [address] [place], [place] [address] [facility] (ABNORMAL) CBC with Differential, Blood (08/08/2018 12:49 AM CDT) [facility] Method Time Signature Hemoglobin 10.2 (L) 11.6 - 08/08/2018 [facility] 15.0 g/dL 1:17 AM CDT LABORATORIES - [facility] Hematocrit 32.5 (L) 35.5 - 08/08/2018 [facility] 44.9 % 1:17 AM CDT LABORATORIES - [facility] Erythrocytes 3.64 (L) 3.92 - 08/08/2018 [facility] 5.13 1:17 AM CDT LABORATORIES - x10(12)/L [facility] MCV 89.3 78.2 - 08/08/2018 [facility] 97.9 fL 1:17 AM CDT LABORATORIES - [facility] RBC Distrib 14.0 12.2 - 08/08/2018 [facility] Width 16.1 % 1:17 AM CDT LABORATORIES - [facility] Platelet Count 223 157 - 371 08/08/2018 [facility] x10(9)/L 1:17 AM CDT LABORATORIES - [facility] Leukocytes 7.3 3.4 - 9.6 08/08/2018 [facility] x10(9)/L 1:17 AM CDT LABORATORIES - [facility] Neutrophils 6.40 1.56 - 08/08/2018 [facility] 6.45 1:17 AM CDT LABORATORIES - x10(9)/L [facility] Lymphocytes 0.48 (L) 0.95 - 08/08/2018 [facility] 3.07 1:17 AM CDT LABORATORIES - x10(9)/L [facility] Monocytes 0.42 0.26 - 08/08/2018 [facility] 0.81 1:17 AM CDT LABORATORIES - x10(9)/L [facility] Eosinophils <0.03 0.03 - 08/08/2018 [facility] 0.48 1:17 AM CDT LABORATORIES - x10(9)/L [facility] Basophils <0.03 0.01 - 08/08/2018 [facility] 0.08 1:17 AM CDT LABORATORIES - x10(9)/L [facility] Specimen Anatomical Collection Method Collection Time Receive d Time (Source) Location / / Volume Laterality Blood (Blood, 08/08/2018 12:49 08/08/2018 1:10 Venous) AM CDT AM CDT Jeanmarie Dunne M.D. LAB BLOOD ADD-ON Performing Organization Address City/State/ZIP Code Phon e Number [facility]IES - [address] [place], [place] [address] [facility] (ABNORMAL) Basic Metabolic Panel (08/08/2018 12:49 AM CDT) [facility] gist Method Time Signature Potassium, S 4.6 3.6 - 5.2 08/08/2018 [facility] mmol/L 1:50 AM CDT LABORATORIES - [facility] Sodium, S 142 135 - 145 08/08/2018 [facility] mmol/L 1:50 AM CDT LABORATORIES - [facility] Chloride, S 103 98 - 107 08/08/2018 [facility] mmol/L 1:50 AM CDT LABORATORIES - [facility] Bicarbonate, S 27 22 - 29 08/08/2018 [facility] mmol/L 1:50 AM CDT LABORATORIES - [facility] Anion Gap 12 7 - 15 08/08/2018 [facility] 1:50 AM CDT LABORATORIES - [facility] BUN (Blood 12 6 - 21 08/08/2018 [facility] Urea mg/dL 1:50 AM CDT LABORATORIES - Nitrogen), S [facility] Creatinine 0.53 (L) 0.59 - 08/08/2018 [facility] 1.04 1:50 AM CDT LABORATORIES - mg/dL [facility] eGFR-Non >90 >=60 08/08/2018 [facility] Black/ mL/min/BS 1:50 AM CDT LABORATORIES - [place] [facility] Comment: ----ADDITIONAL INFORMATION---- Estimated GFR calculated using the 2009 CKD_EPI creatinine equation. eGFR-Black/ >90 >=60 mL/min/BSA 08/08/2018 1:50 [facility] [place] AM CDT LABORATORIES - [facility] Comment: ----ADDITIONAL INFORMATION---- Estimated GFR calculated using the 2009 CKD_EPI creatinine equation. Calcium, Total, S 8.8 8.8 - 10.2 mg/dL 08/08/2018 1:50 AM [facility] CDT LABORATORIES - [facility] S Glucose, S 134 70 - 140 mg/dL 08/08/2018 1:50 AM [facility] CDT LABORATORIES - [facility] S Specimen Anatomical Collection Method Collection Time Receive d Time (Source) Location / / Volume Laterality Blood (Blood, 08/08/2018 12:49 08/08/2018 1:10 Venous) AM CDT AM CDT Jeanmarie Dunne M.D. LAB BLOOD ADD-ON Performing Organization Address City/[facility]/ZIP Code Phon e Number [facility]IES - [address] [place], [place] [address] [facility] (ABNORMAL) Glucose, POCT (08/07/2018 10:05 PM CDT) [...] Provider LAB POCT ORDERABLES-MANUAL Performing Organization Address [facility] Phon e Number POC [facility] [address] [place] [address] Glucose, POCT (08/07/2018 5:53 PM CDT) Analysis [...] Provider LAB POCT ORDERABLES-MANUAL Performing Organization Address [facility]/ZIP [facility] Phon e Number POC [facility] [address] [place] [address] IV Placement Attempt No upper extremity site restrictions (08/07/2018 4:40 PM CDT) [facility] [employer] Method Time Signature IV Placement Successful 08/07/2018 [facility] Attempt 4:40 PM CDT LABORATORIES - [facility] Specimen Anatomical Collection Method Collection Time Receive d Time (Source) Location / / Volume Laterality 08/07/2018 4:40 PM 9 4:40 CDT PM CDT Jr Escobar M.D. IV THERAPY ORDERABLES Performing Organization Address City/State/ZIP Code Phon e Number [facility]IES - [address] [place], [place] [address] [facility] (ABNORMAL) Basic Metabolic Panel (08/07/2018 4:28 PM CDT) [facility] [employer] Method Time Signature Potassium, P 4.1 3.6 - 5.2 08/07/2018 [facility] mmol/L 4:48 PM CDT LABORATORIES - [facility] Sodium, P 140 135 - 145 08/07/2018 [facility] mmol/L 4:48 PM CDT LABORATORIES - [facility] Chloride, P 101 98 - 107 08/07/2018 [facility] mmol/L 4:48 PM CDT LABORATORIES - [facility] Bicarbonate, P 28 22 - 29 08/07/2018 [facility] mmol/L 4:48 PM CDT LABORATORIES - [facility] Anion Gap, P 11 7 - 15 08/07/2018 [facility] 4:48 PM CDT LABORATORIES - [facility] BUN (Blood 13 6 - 21 08/07/2018 [facility] Urea mg/dL 4:48 PM CDT LABORATORIES - Nitrogen), P [facility] Creatinine 0.49 (L) 0.59 - 08/07/2018 [facility] 1.04 4:48 PM CDT LABORATORIES - mg/dL [facility] eGFR-Black/Afr >90 >=60 08/07/2018 [facility] ican [place] mL/min/BS 4:48 PM CDT LABORATORIES - A [facility] Comment: ----ADDITIONAL INFORMATION---- Estimated GFR calculated using the 2009 CKD_EPI creatinine equation. eGFR Non-Black/ >90 >=60 mL/min/BSA 08/07/2018 4:48 [facility] [place] PM CDT LAB[facility]ATORIES - [facility] Comment: ----ADDITIONAL INFORMATION---- Estimated GFR calculated using the 2009 CKD_EPI creatinine equation. Calcium, Total, P 8.7 (L) 8.8 - 10.2 08/07/2018 4:48 PM [facility] mg/dL CDT LABORATORIES - [facility] Glucose, P 146 (H) 70 - 140 mg/dL 08/07/2018 4:48 PM [facility] CDT LABORATORIES - [facility] Specimen Anatomical Collection Method Collection Time Receive d Time (Source) Location / / Volume Laterality Blood (Blood, 08/07/2018 4:28 PM 08/08/19 19 4:30 Venous) CDT PM CDT Jeanmarie Dunne M.D. LAB BLOOD ADD-ON Performing Organization Address City/[facility]/ZIP Code Phon e Number [facility]IES - [address] [place] [address] [facility] pH (08/07/2018 4:27 PM CDT) P athologist Signature pH 7.37 7.35 - 7.45 08/07/2018 [facility] pH 4:32 PM CDT LABORATORIES - [facility] Specimen Anatomical Collection Method Collection Time Receive d Time (Source) Location / / Volume Laterality Blood 08/07/2018 4:27 PM 9 4:30 CDT PM CDT Jeanmarie Dunne M.D. LAB HISTORICAL ORDERS Performing Organization Address City/State/ZIP Code Phon e Number [facility] - [address] [place] [address] [facility] Fibrinogen (08/07/2018 4:27 PM CDT) P athologist Signature Fibrinogen, P 383 200 - 393 08/07/2018 [facility] mg/dL 4:42 PM CDT LABORATORIES - [facility] Specimen Anatomical Collection Method Collection Time Receive d Time (Source) Location / / Volume Laterality Blood (Blood, 08/07/2018 4:27 PM 08/08/19 19 4:30 Venous) CDT PM CDT Jeanmarie Dunne M.D. LAB BLOOD ADD-ON Performing Organization Address City/[facility]/ZIP Code Phon e Number [facility] - [address] [place] [address] [facility] Prothrombin Time (PT/INR) (08/07/2018 4:27 PM CDT) Patholo gist Method Time Signature Prothrombin 10.4 9.4 - 12.5 08/07/2018 [facility] Time, P sec 4:42 PM CDT LABORATORIES - [facility] INR 1.0 0.9 - 1.1 08/07/2018 [facility] 4:42 PM CDT LABORATORIES - [facility] Comment: ----ADDITIONAL INFORMATION---- Standard intensity warfarin therapeutic range: 2.0 to 3.0 ?? High intensity warfarin therapeutic rang e: 2.5 to 3.5 Specimen Anatomical Collection Method Collection Time Receive d Time (Source) Location / / Volume Laterality Blood (Blood, 08/07/2018 4:27 PM 08/08/19 19 4:30 Venous) CDT PM CDT Jeanmarie Dunne M.D. LAB BLOOD ADD-ON Performing Organization Address City/[facility]/ZIP Code Phon e Number [facility] - [address] [address] [facility] APTT (Activated Partial Thromboplastin Time) (08/07/2018 4:27 PM CDT) P athologist Signature Activated 25 25 - 37 08/07/2018 [facility] Partial sec 4:44 PM CDT LABORATORIES - [facility] Specimen Anatomical Collection Method Collection Time Receive d Time (Source) Location / / Volume Laterality Blood (Blood, 08/07/2018 4:27 PM 08/08/19 19 4:30 Venous) CDT PM CDT Jeanmarie Dunne M.D. LAB BLOOD ADD-ON Performing Organization Address City/[facility]/ZIP Code Phon e Number [facility] - [address] [address] [facility] Phosphorus Inorganic (08/07/2018 4:27 PM CDT) Analysis Performed At Patho logist Time Signature Phosphorus 4.3 2.5 - 4.5 08/07/2018 [facility] (Inorganic), S mg/dL 9:21 PM CDT LABORATORIES - [facility] Specimen Anatomical Collection Method Collection Time Receive d Time (Source) Location / / Volume Laterality Blood (Blood, 08/07/2018 4:27 PM 08/08/19 19 4:47 Venous) CDT PM CDT Jeanmarie Dunne M.D. LAB BLOOD ADD-ON Performing Organization Address City/[facility]/ZIP Code Phon e Number [facility] - [address] [address] [facility] Magnesium (08/07/2018 4:27 PM CDT) athologist Signature Magnesium, S 1.7 1.7 - 2.3 08/07/2018 [facility] mg/dL 9:21 PM CDT LABORATORIES [facility] Specimen Anatomical Collection Method Collection Time Receive d Time (Source) Location / / Volume Laterality Blood (Blood, 08/07/2018 4:27 PM 08/08/19 19 4:47 Venous) CDT PM CDT Jeanmarie Dunne M.D. LAB BLOOD ADD-ON Performing Organization Address City/[facility]/ZIP Code Phon e Number [facility] - [address] [address] [facility] Lactate (08/07/2018 4:27 PM CDT) athologist Signature Lactate, P 1.2 0.5 - 2.2 08/07/2018 [facility] mmol/L 4:45 PM CDT [facility] - [facility] Specimen Anatomical Collection Method Collection Time Receive d Time (Source) Location / / Volume Laterality Blood (Blood, 08/07/2018 4:27 PM 08/08/19 19 4:30 Venous) CDT PM CDT Jeanmarie Dunne M.D. LAB BLOOD NON ADD-ON Performing Organization Address City/State/ZIP Code Phon e Number [facility] - [address] [address] [facility] Calcium, Ionized (08/07/2018 4:27 PM CDT) athologist [facility] Calcium, 4.73 4.65 - 08/07/2018 [facility] Ionized, B 5.30 mg/dL 4:32 PM CDT [facility] Specimen Anatomical Collection Method Collection Time Receive d Time (Source) Location / / Volume Laterality Blood (Blood, 08/07/2018 4:27 PM 08/08/19 19 4:30 Venous) CDT PM CDT Jeanmarie Dunne M.D. LAB BLOOD NON ADD-ON Performing Organization Address City/State/ZIP Code Phon e Number [facility] - [address] [address] [facility] (ABNORMAL) CBC without Differential (08/07/2018 4:27 PM CDT) Patholo gist Method Time Signature Hemoglobin 10.9 (L) 11.6 - 08/07/2018 [facility] 15.0 g/dL 4:33 PM CDT LABORATORIES - [facility] Hematocrit 34.5 (L) 35.5 - 08/07/2018 [facility] 44.9 % 4:33 PM CDT LABORATORIES - [facility] Erythrocytes 3.81 (L) 3.92 - 08/07/2018 [facility] 5.13 4:33 PM CDT LABORATORIES - x10(12)/L [facility] MCV 90.6 78.2 - 08/07/2018 [facility] 97.9 fL 4:33 PM CDT LABORATORIES - [facility] RBC Distrib 14.4 12.2 - 08/07/2018 [facility] Width 16.1 % 4:33 PM CDT LABORATORIES - [facility] Platelet Count 212 157 - 371 08/07/2018 [facility] x10(9)/L 4:33 PM CDT LABORATORIES - [facility] Leukocytes 10.8 (H) 3.4 - 9.6 08/07/2018 [facility] x10(9)/L 4:33 PM CDT LABORATORIES - [facility] Specimen Anatomical Collection Method Collection Time Receive d Time (Source) Location / / Volume Laterality Blood (Blood, 08/07/2018 4:27 PM 08/08/19 19 4:30 Venous) CDT PM CDT Jeanmarie Dunne M.D. LAB BLOOD ADD-ON Performing Organization Address City/State/ZIP Code Phon e Number [facility] - [address] [place], [place] [address] [facility] Glucose, POCT (08/07/2018 3:52 PM CDT) Analysis [...] Provider LAB POCT ORDERABLES-MANUAL Performing Organization Address City/[facility]/ZIP Code Phon e Number [facility] [address] [place] [address] Glucose, POCT (08/07/2018 2:44 PM CDT) Analysis [...] Provider LAB POCT ORDERABLES-MANUAL Performing Organization Address City/[facility]/ZIP Code Phon e Number [facility] [address] [place] [address] Patient Status (08/07/2018 2:35 PM CDT) P athologist Signature O2 Flow 7.0 L/min 08/07/2018 [facility] 2:41 PM CDT LABORATORIES - [facility] Device BPAP 08/07/2018 [facility] 2:41 PM CDT LABORATORIES - [facility] Spont. 24 08/07/2018 [facility] breaths/min 2:41 PM CDT LABORATORIES - [facility] Specimen Anatomical Collection Method Collection Time Receive d Time (Source) Location / / Volume Laterality Blood 08/07/2018 2:35 PM 9 2:41 CDT PM CDT Elder Carr M.D. LAB BLOOD NON ADD-ON Performing Organization Address City/[facility]/ZIP Code Phon e Number [facility] - [address] [place], [place] [address] [facility] (ABNORMAL) Blood Gas with Coox, Arterial (08/07/2018 2:35 PM CDT) Patholo gist Method Time Signature pO2 70 (L) 83 - 108 08/07/2018 [facility] mm Hg 2:46 PM CDT LABORATORIES - [facility] pCO2 50 (H) 32 - 45 08/07/2018 [facility] mm Hg 2:46 PM CDT LABORATORIES - [facility] pH 7.35 7.35 - 08/07/2018 [facility] 7.45 pH 2:46 PM CDT LABORATORIES - [facility] Base Excess 2 -2 - 3 08/07/2018 [facility] mmol/L 2:46 PM CDT LABORATORIES - [facility] HCO3 27 (H) 22 - 26 08/07/2018 [facility] mmol/L 2:46 PM CDT LABORATORIES - [facility] Hemoglobin, B 11.0 (L) 11.6 - 08/07/2018 [facility] 15.0 g/dL 2:46 PM CDT LABORATORIES - [facility] O2Hb 91.6 (L) 94.0 - 08/07/2018 [facility] 98.0 % 2:46 PM CDT LABORATORIES - [facility] COHb 1.4 <3.0 % 08/07/2018 [facility] 2:46 PM CDT LABORATORIES - [facility] MetHb <1.0 <1.5 % 08/07/2018 [facility] 2:46 PM CDT LABORATORIES - [facility] CtO2 14.2 (L) 18.0 - 08/07/2018 [facility] 21.0 vol 2:46 PM CDT LABORATORIES - % [facility] Arterial Art Line 08/07/2018 [facility] Sample Site 2:46 PM CDT LABORATORIES - [facility] Specimen Anatomical Collection Method Collection Time Receive d Time (Source) Location / / Volume Laterality Blood (Blood, 08/07/2018 2:35 PM 08/08/19 19 2:41 Arterial) CDT PM CDT Elder Carr M.D. LAB BLOOD NON ADD-ON Performing Organization Address City/State/ZIP Code Phon e Number [facility] - [address] [place], [place] [address] [facility] (ABNORMAL) Glucose, POCT (08/07/2018 12:42 PM CDT) [...] e Number [facility] [address] [place] [address] DX Chest 1 View (08/07/2018 11:32 AM [...] Glucose 185 (H) 70 - 140 08/07/2018 [facility] mg/dL 11:00 AM CDT LABORATORIES - [facility] Specimen Anatomical Collection Method Collection Time Receive d Time (Source) Location / / Volume Laterality Blood (Blood, 08/07/2018 10:57 08/07/2018 Arterial Line) AM CDT 10:57 AM CDT Resulting Agency Comment Drawn in [place] 502 Ziggy Schulz M.D. LAB BLOOD TROPONIN Performing Organization Address City/State/ZIP Code Phon e Number [facility] - [address] [address] [facility] (ABNORMAL) Blood Gas with Coox, Arterial (08/07/2018 10:57 AM CDT) [facility] Method Time Signature pO2 155 (H) 83 - 108 08/07/2018 [facility] mm Hg 11:00 AM CDT LABORATORIES - [facility] pCO2 48 (H) 32 - 45 08/07/2018 [facility] mm Hg 11:00 AM CDT LABORATORIES - [facility] pH 7.37 7.35 - 08/07/2018 [facility] 7.45 pH 11:00 AM CDT LABORATORIES - [facility] Base Excess 2 -2 - 3 08/07/2018 [facility] mmol/L 11:00 AM CDT LABORATORIES - [facility] HCO3 28 (H) 22 - 26 08/07/2018 [facility] mmol/L 11:00 AM CDT [facility] - [facility] Hemoglobin, B 9.8 (L) 11.6 - 08/07/2018 [facility] 15.0 g/dL 11:00 AM CDT LABORATORIES [facility] O2Hb 97.7 94.0 - 08/07/2018 [facility] 98.0 % 11:00 AM CDT [facility] COHb 1.2 <3.0 % 08/07/2018 [facility] 11:00 AM CDT LABORATORIES [facility] MetHb <1.0 <1.5 % 08/07/2018 [facility] 11:00 AM CDT [facility] - [facility] CtO2 13.9 (L) 18.0 - 08/07/2018 [facility] 21.0 vol 11:00 AM CDT LABORATORIES - % [facility] Specimen Anatomical Collection Method Collection Time Receive d Time (Source) Location / / Volume Laterality Blood (Blood, 08/07/2018 10:57 08/07/2018 Arterial Line) AM CDT 10:57 AM CDT Resulting Agency Comment Drawn in [place] 502 Ziggy Schulz M.D. LAB BLOOD NON ADD-ON Performing Organization Address City/State/ZIP Code Phon e Number [facility] - [address] [address] [facility] Surgical Pathology, Frozen Lab (08/07/2018 10:13 AM CDT) Component Value Ref Test Analysis Performed At [facility] Range Method Time Signature Gross Description A. ??Received fresh labeled left upper lobe wedg e of lung 08/08/2018 [facility] is an 8.3 x 3.8 x 2.9 cm lung wedge resection. ??There is a 3:41 PM LABORATORIES - 1.6 x 1.5 x 0.9 cm solid, martínez mass located approximately [facility] 0.1 cm from the stapled margin. ??The mass does not CAMPUS umbilicate the visceral pleura. ??Crane Chaser tissue submitted for frozen and permanent sections. [...] mass does not umbilicate the visceral pleura. ??Crane Chaser tissue submitted for frozen and permanent sections. ??Grossed by MAP. Participated in Ammon Valentin, 08/08/2018 [facility] the [facility]ar-Pathology 3:41 PM LABORATORIES - Interpretation Fellow [facility] Report Josie Sands M.D. [phone] 08/08/2018 [facility] electronically I verify that I have examined all relevant slides/ma terials 3:41 PM LABORATORIES - signed by for the specimen(s) and rendered or confirmed the diagnosi s. [facility] Seen in consultation with: ??Ethel Norwood M.D. [phone] [place] 08/08/2018 [facility] 3:41 PM LABORATORIES - T [facility] Block Summary A Left upper lobe wedge of lung 07/28 [facility] A1 Mass to margin 3:41 PM LABORATORIES - A2 Mass to margin [facility] IN A3 Hemorrhagic area CAMPUS B Station 5 lymph node B1 Station 5 lymph node 1(B1) B2 Station 5 lymph node 2(B2) C Left lower lobe wedge of lung C1 Mass 1 C2 Mass 2 Interpretation FINAL DIAGNOSIS 08/08/2018 [facility] A. ??Lung, left upper lobe, [...] LAB SURG PATH ORDERABLES Performing Organization Address [facility]/ZIP Code Phon e Number [facility] - [address] [address] [facility] (ABNORMAL) Glucose, Whole Blood (08/07/2018 9:53 AM CDT) athologist Signature Glucose 150 (H) 70 - 140 08/07/2018 [facility] mg/dL 9:56 AM CDT LABORATORIES [facility] Specimen Anatomical Collection Method Collection Time Receive d Time (Source) Location / / Volume Laterality Blood (Blood, 08/07/2018 9:53 AM 08/08/19 19 9:53 Arterial Line) CDT AM CDT Resulting Agency Comment Drawn in [place] Ziggy Schulz M.D. LAB BLOOD TROPONIN Performing Organization Address City/[facility]/ZIP Code Phon e Number [facility] - [address] [address] [facility] Potassium, Blood (08/07/2018 9:53 AM CDT) athologist Signature Potassium, B 4.0 3.6 - 5.2 08/07/2018 [facility] mmol/L 9:56 AM CDT [facility] Specimen Anatomical Collection Method Collection Time Receive d Time (Source) Location / / Volume Laterality Blood (Blood, 08/07/2018 9:53 AM 08/08/19 19 9:53 Arterial Line) CDT AM CDT Resulting Agency Comment Drawn in [place] Ziggy Schulz M.D. LAB BLOOD NON ADD-ON Performing Organization Address [facility] Phon e Number [facility] - [address] [address] [facility] Sodium, B (08/07/2018 9:53 AM CDT) athologist Signature Sodium, B 142 135 - 145 08/07/2018 [facility] mmol/L 9:56 AM CDT [facility] Specimen Anatomical Collection Method Collection Time Receive d Time (Source) Location / / Volume Laterality Blood (Blood, 08/07/2018 9:53 AM 08/08/19 19 9:53 Arterial Line) CDT AM CDT Resulting Agency Comment Drawn in [place] Ziggy Schulz M.D. LAB BLOOD NON ADD-ON Performing Organization Address City/[facility]/ZIP Code Phon e Number [facility] - [address] [place], [place] [address] [facility] Calcium, Ionized (08/07/2018 9:53 AM CDT) P athologist Signature Calcium, 4.82 4.65 - 08/07/2018 [facility] Ionized, B 5.30 mg/dL 9:56 AM CDT LABORATORIES - [facility] Specimen Anatomical Collection Method Collection Time Receive d Time (Source) Location / / Volume Laterality Blood (Blood, 08/07/2018 9:53 AM 08/08/19 19 9:53 Arterial Line) CDT AM CDT Resulting Agency Comment Drawn in [place] Ziggy Schulz M.D. LAB BLOOD NON ADD-ON Performing Organization Address City/[facility] Code Phon e Number [facility] - [address] [place], [place] [address] [facility] (ABNORMAL) Blood Gas with Coox, Arterial (08/07/2018 9:53 AM CDT) Patholo gist Method Time Signature pO2 67 (L) 83 - 108 08/07/2018 [facility] mm Hg 9:56 AM CDT LABORATORIES [facility] pCO2 65 (H) 32 - 45 08/07/2018 [facility] mm Hg 9:56 AM CDT LABORATORIES [facility] pH 7.27 (L) 7.35 - 08/07/2018 [facility] 7.45 pH 9:56 AM CDT LABORATORIES [facility] Base Excess 2 -2 - 3 08/07/2018 [facility] mmol/L 9:56 AM CDT LABORATORIES - [facility] HCO3 29 (H) 22 - 26 08/07/2018 [facility] mmol/L 9:56 AM CDT LABORATORIES [facility] Hemoglobin, B 9.9 (L) 11.6 - 08/07/2018 [facility] 15.0 g/dL 9:56 AM CDT LABORATORIES [facility] O2Hb 88.5 (L) 94.0 - 08/07/2018 [facility] 98.0 % 9:56 AM CDT LABORATORIES - [facility] COHb 1.2 <3.0 % 08/07/2018 [facility] 9:56 AM CDT LABORATORIES - [facility] MetHb <1.0 <1.5 % 08/07/2018 [facility] 9:56 AM CDT LABORATORIES - [facility] CtO2 12.4 (L) 18.0 - 08/07/2018 [facility] 21.0 vol 9:56 AM CDT LABORATORIES - % [facility] Specimen Anatomical Collection Method Collection Time Receive d Time (Source) Location / / Volume Laterality Blood (Blood, 08/07/2018 9:53 AM 08/08/19 19 9:53 Arterial Line) CDT AM CDT Resulting Agency Comment Drawn in [place] Ziggy Schulz M.D. LAB BLOOD NON ADD-ON Performing Organization Address City/State/ZIP Code Phon e Number [facility] - [address] [place], [place] [address] [facility] Glucose, POCT (08/07/2018 6:53 AM CDT) Analysis [...] Provider LAB POCT ORDERABLES-MANUAL Performing Organization Address City/State/[facility] Code Phon e Number [facility] [address] [place] [address] documented in this encounter Visit Diagnoses Not [...] 3 mL magnesium hydroxide suspension 30 mL (MT LK OF MAGNESIA) 30 mL, oral, Every [...] 08/10/2018 08/11/2018 acetaminophen tablet 1,000 mg (TYLENOL) 0872 (Given - Provider: Esvin Savage R.N.)5188 (Given - Provider: Esvin Savage R.N.)8511 (Given - Provider: Esvin S Hussein, R.N.)2123 [...] Fernando Vernon R.N. - Reason: Patient/family refused) 0910 (Given - Provider: Staci Pantoja RYahir) 2 [...] on Sat08/09/18 at 0916 documented in this encounter"
--- OUTSIDE RECORDS SUMMARY | 2022-03-08 10:10 | XMS_ITS | Encounter Summary ---
:1955 Author Organization [facility] Address [address] [place] [address] Care Team Providers Name Role Phone Unavailable Primary Care Provider Unavailable Reason for Visit Reason Onset Date Comments returned phone call 07/15/2018 Encounter Details Date Type Department Care Team Description 07/15/2018 Clinical Communication Division of sami Ramsay phone call Thoracic Surgery in Alberto Castillo P.A.-[address] [address] [address] [facility] [address] [place] [address] [phone] Social History Tobacco Use Types Packs/Day Years [...] please call pt's sister Naomi Ngo at [phone]. She said she was returning your call. Alycia Silveira documented in this encounter Plan of Treatment Not on filedocumented as of this encounter Visit Diagnoses Not on filedocumented in this encounter
--- OUTSIDE RECORDS SUMMARY | 2022-03-08 10:10 | XMS_ITS | Encounter Summary ---
:1955 Author Organization [facility] Address [address] [place] [address] Care Team Providers Name Role Phone Unavailable Primary Care Provider Unavailable Encounter Details Date Type Department Care Team Description 08/07/2018 Anesthesia Event RST ROMB MAIN OR Ziggy Calixto M.D. [address] [place] [address] [place], [place] [phone] (Wo rk) Anesthesia Record Procedure Summary Procedure [...] o, Cheryl M, Time: 075 (created via [employer] R.N. procedure documentation); Mask Ventilation: Oral/Nasal airway needed; Type: Double lumen left; Single Lumen Tube Size: 35 Fr; Cuffed: Yes; Blade Size: Parrish 2; Location: Oral; Removal Date: 08/07/18; Removal Time: 1200 Peripheral IV Placement Date: 08/07/18 0827 by 08/10/18 1500 b y 08/07/18; Placement Yulia Rosario APRN, Harriso n, Alex S, Time: 08; Catheter [employer] R.N. Size: 18 G; Orientation: Left; Location: [...] Ha rrison, Alex S, 828 (created via [facility] R.N. procedure documentation); Orientation: Left; Location: [...] by Left; Left Superior; [facility] 16 [facility]Y 4X4 (x1); R.NElvi nd, Lisa eduling 01/17/21 (Removed by Automated [facility] Job background completion utility); 1418 (Removed by background completion utility) (RETIRED) Incision 08/07/18; 1103; Flank; 08/07/18 1103 by 01/17 1418 by Left; Posterior Medial Sybil Kang [facility] left; DRSG GZ 16 PLY R.N. nd, Schedul ing 4X4; 01/17/21 (Removed Automated Batch Job by background completion utility); 1418 (Removed by background completion utility) (RETIRED) Incision 08/07/18; 1103; Flank; 08/07/18 1103 by 01/17 1418 by Left; Anterior Medial Sybil Kang, [facility] Er inic-Backgrou Left; DRSG GZ 16 PLY R.N. [...] Procedure Summary Date: 08/07/18 Room / Location: [place] [address] / [facility] in [place], [place] Anesthesia Start: 0739 Anesthesia Stop: 1150 [...] INVASIVE CATHETER Invasive Catheter Performed by: YULIA ROSARIO Authorized [...] patient / legal guardian, or through an patient support specialist; patient evaluated and approved for anesthesia / [...] procedure are i n the results section. VT ARTL CATH/CNULA Routine 08/07/2018 8:28 AM Res [...] no complications Ziggy Calixto M.D. ANESTHESIA ORDERABLES [facility] ARTL CATH/CNULA MONITOR PERC, LDA ANE ARTERIAL LINE INSERTION (08/07/2018 8:28 AM CDT) Narrative Yluia Rosario APRN, CRNA - 08/07/2018 8 :28 [...] to 3 most recent administrations Medication Order [facility] Action Action Date Dose Rate Site albuterol [...]
--- OUTSIDE RECORDS SUMMARY | 2022-03-08 10:10 | XMS_ITS | Encounter Summary ---
:1955 Author Organization [facility] Address [address] [place] [id number] Care Team Providers Name Role Phone Unavailable Primary Care Provider Unavailable Reason for Referral Physical Therapy (Routine) - Closed Specialty Diagnoses / Procedures Referred By Contact Refer red To Contact Diagnoses Decline Functional Status Shani Martin APRN, C.N.P. [address] [place] [phone] Referral ID Status Reason Start Date Expiration Visits Visits Date Requested Authorized [id number] Closed Patient 08/11/2018 08/11/2019 1 1 Preference utpatient (Routine) - Closed Specialty Diagnoses / Procedures Referred By Contact Refer red To Contact Thoracic Surgery Diagnoses Malignant Neoplasm Of Lung Adenocarcinoma Left [facility] [address] [place] [phone] Referral ID Status Reason Start Date Expiration Date Visits Requ ested Visits Authorized [id number] Closed 08/11/2018 08/11/2019 1 1 Encounter Details Date Type Department Care Team Description 08/07/2018 - Hospital Encounter [facility] [place], [place] Lung (Primary Dx); 08/11/2018 [facility] M.D. [place] Pulmonary; [facility], [address] [place] [address] Decline Functional Status; [place], [place] Malignant Neoplasm Of Lung Adenocarcinoma Left (HCC) Fifth Floor [id number] [phone] [place], [place] (Work) [phone] Social History Tobacco Use [...] Case IDs Date Procedure Surgeon Location Status [id number] 08/07/18 THORACOSCOPY, WEDGE RESECTION LUNG. Fany Lyn [...] Discharge information provided on 08/09/2018 Contact information: [facility], 1 [facility] Therapy Services: [phone] documented in this encounter Medications at Time [...] Session ended upon entrance of social media content manager. Therapeutic Exercise - ROM ROM: Yes Other [...] Handouts provided today: Exercises after chest surgery [id number] Communication: The patient's nurse was contacted and patient's status was discussed. Patient was left in bedside chair at end of session with call light in reach, all needs met and questions answered. Outcome Measures Current ADL Status: AM-[facility] Inpatient Short Form: Putting on [...] CMS Modifier: CK Interpretation: Clinicians answer the -[facility] Inpatient Short Form based on [...] path deviation Stairs # of Assistants: 2 (NATIONAL BUSINESS DIRECTOR also present ) Level of Assistance: [...] someone coming infor lab draws once/month through [facility]. Patient and her sister confirmed that [...] Social work will continue to follow Abhinav Roberts M.S.W. 08/11/2018 DAT Chetan Rodriguez M.D. - [...] AM Under the direction of Carolyn Gonzalez INSPECTOR COLD WORKING Mike Roman M.D., M.S. - 08/09/2018 10:14 [...] 400 mg QHS for schizophrenia; followed at [facility] in [place] (Dr. Minna Gramajo???Fran) normally. Dose and compliance [...] requirements, please contact the psychiatric pharmacist at [phone]. Madelin David Pharm.D., R.Ph. DAT Jr Escobar M.D. - 08/08/2018 10:50 AM CDT SUBJECTIVE Patient[place] location is [place] [address] ?? I have seen and examined this [...] Sheldon Matson M.D. Thoracic Surgery Fellow Pgr: [id number] 08/08/18 10:42 AM DAT Fany Lyn M.D. - 08/08/2018 8:45 AM CDT The patient was seen and examined today on surgical hospital rounds. The interval inpatient progress was reviewed. I reviewed the plan with the surgical team and agree. Jeanmarie Oscar M.D. - 08/08/2018 5:51 AM CDT [facility] Progress Note HISTORY OF PRESENT ILLNESS Brief [...] Type 2 (HCC) #3 Asthma Mild Intermittent ([facility]) #4 Obesity Body Mass Index 30-39.9 Adult [...] Date PHART 7.42 08/08/2018 PHART 7.35 08/07/2018 [id number] 44 08/08/2018 [id number] 50 (H) 08/07/2018 BEART 4 (H) 08/08/2018 [...] Full Code Jeanmarie Dunne M.D. PGY 2 [phone] Jr Escobar M.D. - 08/07/2018 4:34 PM CDT SUBJECTIVE [place] is [place] [address] I have seen and examined this patient. [...] Dunne M.D. - 08/07/2018 3:14 PM CDT [facility] Admission HISTORY OF PRESENT ILLNESS Brief Summary: [...] her dressings. ASSESSMENT / PLAN #1 Schizophrenia ([facility]) #2 Diabetes Mellitus Type 2 ([facility]) #3 Asthma Mild Intermittent ([facility]) #4 Obesity Body Mass Index 30-39.9 Adult [...] fentanyl and oxycodone. Can consider a fentanyl NATIONAL BUSINESS DIRECTOR if necessary. -Hold meds: At this [...] Date PHART 7.35 08/07/2018 PHART 7.37 08/07/2018 [id number] 50 (H) 08/07/2018 [id number] 48 (H) 08/07/2018 BEART 2 08/07/2018 BEART [...] Full Code Jeanmarie Dunne M.D. PGY 2 [phone] Carl Rodriguez M.D. - 08/07/2018 7:27 AM [...] 2 (HCC) ??? Edema Localized ??? Other Intermediate Current Drug Therapy ??? Metabolic Syndrome ??? [...] Prior Function / Occupational Profile Level of [place]: Independent with ADLs and functional transfers, Needs assistance with homemaking Lives With: Family (sister and [id number]-tdk) Receives Help From: Family ADL Assistance: Independent [...] Activity Level: Answer: Up Ad Robyn 08/07/18 9983 Precautions Other Precautions: fall, impulsive, cognition, respiratory, [...] Standardized Score: 42.13 Interpretation: Clinicians answer the -[facility] Inpatient Short Form based on [...] 2 (HCC) ??? Edema Localized ??? Other Intermediate Current Drug Therapy ??? Metabolic Syndrome ??? [...] Prior Function / Occupational Profile Level of [place]: Independent with ADLs and functional transfers, Needs [...] Comments: Patient lives with her sister and [id number] Home Equipment Home Adaptive Equipment: None Bathroom [...] Current ADL/IADL Function ADL Comments: see AM [facility] Bed Mobility - Supine to Sit # of Assistants: 2 Level of Assistance: Moderate assistance Cuing: Visual, Verbal, Tactile Comments: from [facility] bed, icreasing assist as [...] questions answered. Outcome Measures Current ADL Status: [facility] Inpatient Short Form: Putting on and taking [...] to interview. Primary care clinic and provider: [facility] Primary Language: Maldivian Sales Project Engineer Services Used: No Legal Information: Legal Decision [...] Family members. Primary caregiver: Self Spirituality / Mu-Ism / Culture: No spiritism on file Employment: Unemployed Psychosocial Risk Factors [...] Communication: Can write, Talks, Understands speaking, Understands Maldivian, Reads It is anticipated that the patient will need assistance with Transfer to/from Bed, Chair, etc, Mobility, Transportation Use (drive car, use taxi/bus). ASSISTIVE DEVICES Patient has the following equipment: None Patient anticipates potentially needing the following additional equipment: Walker CRESTER Formal and Informal Resources: Patient shares that she has someone come into the home to assist withher medications. She was not sure who this may be with. She also shared that she thinks she has a case fitter through the [facility]. Her sister is her primary support. FINANCES/INSURANCE [...] with state of illness?: No Fear of group home/extended hospitalization?: No Coping with recent loss/disruption in [...] agency. She had previously resided in a longterm but recently decided to move in with her sister in the [facility]. Patient is on disability. She has beenindependent [...] patient was placed on room air in [facility]. RN notified that lab will call when the patient is to be placed on oxygen if needed. Will follow up with RN around 0500. End of study note: RN stated patient remained on room air with home PAP device for nocturnal oxygen study. Electronically signed by: Sabrina Mroillo R.R.T., L.R.T. 08/10/18 6:31 AM Sabrina Morillo [...] the day. Chest tube was removed by CIVIL DEFENSE DIRECTOR in the afternoon. Patient improved from a [...] Left Radial (Active) Placement Date/Time: 08/07/18 (c) 3714 Hand Hygiene Performed Prior to Insertion: Yes [...] Left Radial (Active) Placement Date/Time: 08/07/18 (c) 0873 Hand Hygiene Performed Prior to Insertion: Yes [...] here for safety reasons. A single 28 georgian chest tube was directed towards the apex. [...] Priority Associated Diagnoses Order S [facility] Thoracic Surgery Outpatient Referral Routine Malignant [...] Provider LAB POCT ORDERABLES-MANUAL Performing Organization Address City/[facility]/ZIP Code Phon e Number [facility] [address] [place] [address] Glucose, POCT (08/11/2018 9:23 AM CDT) Analysis [...] e Number [facility] [address] [place] [address] Glucose, POCT (08/11/2018 6:10 AM CDT) Analysis [...] Provider LAB POCT ORDERABLES-MANUAL Performing Organization Address City/[facility] Code Phon e Number [facility] [address] [place] [address] Glucose, POCT (08/10/2018 10:20 PM CDT) P athologist Signature Glucose, POCT, 126 70 - 140 08/10/2018 [facility] mg/dL 10:27 PM CDT SERVICES Specimen Anatomical Collection Method Collection Time Receive d Time (Source) Location / / Volume Laterality Blood 08/10/2018 10:20 08/10/2018 PM CDT 10:27 PM CDT Unknown Provider LAB POCT ORDERABLES-MANUAL Performing Organization Address City/[facility] Code Phon e Number [facility] [address] [place] [address] Glucose, POCT (08/10/2018 6:19 PM CDT) Analysis [...] e Number [facility] [address] [place] [address] (ABNORMAL) Glucose, POCT (08/10/2018 12:12 PM CDT) [...] Provider LAB POCT ORDERABLES-MANUAL Performing Organization Address City/[facility] Code Phon e Number [facility] [address] [place] [address] Glucose, POCT (08/10/2018 8:06 AM CDT) Analysis [...] Provider LAB POCT ORDERABLES-MANUAL Performing Organization Address City/[facility] Phon e Number [facility] [address] [place] [address] (ABNORMAL) Glucose, POCT (08/09/2018 9:32 PM CDT) [...] Address City/State/ZIP Code Phon e Number POC [facility] [address] [place] [address] Glucose, POCT (08/09/2018 5:49 PM CDT) Analysis [...] Provider LAB POCT ORDERABLES-MANUAL Performing Organization Address City/[facility]/ZIP Code Phon e Number POC [facility] [address] [place] [address] DX Chest AP or PA and Lateral [...] Madina Nieves APRN, C.N.P. IMG DIAGNOSTIC IMAGING [place] OCEDURES Glucose, POCT (08/09/2018 12:31 PM CDT) [...] e Number [facility] [address] [place] [address] DX Chest AP or PA and Lateral [...] [facility] [address] [place] [address] Glucose, POCT (08/08/2018 4:53 PM CDT) Analysis [...] Provider LAB POCT ORDERABLES-MANUAL Performing Organization Address [facility]/ZIP [facility] Phon e Number [facility] [address] [place] [address] (ABNORMAL) Glucose, POCT (08/08/2018 12:37 PM CDT) [...] Provider LAB POCT ORDERABLES-MANUAL Performing Organization Address [facility]/ZIP [facility] Phon e Number [facility] [address] [place] [address] Glucose, POCT (08/08/2018 7:54 AM CDT) P [...] Provider LAB POCT ORDERABLES-MANUAL Performing Organization Address City/[facility] Phon e Number [facility] [address] [place] [address] DX Chest Portable 1 View (08/08/2018 5:45 [...] Jonny Aguirre M.D. IMG DIAGNOSTIC IMAGING PROCE [facility] Patient Status (08/08/2018 12:54 AM CDT) athologist Signature FIO2 0.21 0.21=AIR 08/08/2018 [facility] 12:54 AM CDT [facility] Device NPAP 08/08/2018 [facility] 12:54 AM CDT [facility] Spont. 18 08/08/2018 [facility] breaths/min 12:54 AM T [facility] Specimen Anatomical Collection Method Collection Time Receive d Time (Source) Location / / Volume Laterality Blood 08/08/2018 12:54 08/08/2018 AM CDT 12:54 AM CDT Jeanmarie Dunne M.D. LAB BLOOD NON ADD-ON Performing Organization Address City/State/ZIP Code Phon e Number [facility] - [address] [place], [place] [address] [facility] (ABNORMAL) Blood Gas with Coox, Arterial (08/08/2018 12:54 AM CDT) [facility] g[facility] Method Time Signature pO2 75 (L) 83 - 108 08/08/2018 [facility] mm Hg 12:57 AM CDT [facility] pCO2 44 32 - 45 08/08/2018 [facility] mm Hg 12:57 AM CDT [facility] pH 7.42 7.35 - 08/08/2018 [facility] 7.45 pH 12:57 AM CDT [facility] Base Excess 4 (H) -2 - 3 08/08/2018 [facility] mmol/L 12:57 AM CDT LABORATORIES [facility] HCO3 28 (H) 22 - 26 08/08/2018 [facility] mmol/L 12:57 AM CDT [facility] Hemoglobin, B 10.3 (L) 11.6 - 08/08/2018 [facility] 15.0 g/dL 12:57 AM CDT LABORATORIES [facility] O2Hb 93.2 (L) 94.0 - 08/08/2018 [facility] 98.0 % 12:57 AM CDT LABORATORIES [facility] COHb 2.1 <3.0 % 08/08/2018 [facility] 12:57 AM CDT [facility] MetHb <1.0 <1.5 % 08/08/2018 [facility] 12:57 AM CDT [facility] CtO2 13.6 (L) 18.0 - 08/08/2018 [facility] 21.0 vol 12:57 AM CDT [facility] Arterial Art Line 08/08/2018 [facility] Sample Site 12:57 AM CDT [facility] Specimen Anatomical Collection Method Collection Time Receive d Time (Source) Location / / Volume Laterality Blood (Blood, 08/08/2018 12:54 08/08/2018 Arterial) AM CDT 12:50 AM CDT Jeanmarie Dunne M.D. LAB BLOOD NON ADD-ON Performing Organization Address City/State/ZIP Code Phon e Number [facility] - [address] [place], [place] [address] [facility] (ABNORMAL) CBC with Differential, Blood (08/08/2018 12:49 AM CDT) [facility] gist Method Time Signature Hemoglobin 10.2 (L) 11.6 - 08/08/2018 [facility] 15.0 g/dL 1:17 AM CDT LABORATORIES [facility] Hematocrit 32.5 (L) 35.5 - 08/08/2018 [facility] 44.9 % 1:17 AM CDT [facility] Erythrocytes 3.64 (L) 3.92 - 08/08/2018 [facility] 5.13 1:17 AM CDT LABORATORIES - x10(12)/L [facility] MCV 89.3 78.2 - 08/08/2018 [facility] 97.9 fL 1:17 AM CDT LABORATORIES - [facility] RBC Distrib 14.0 12.2 - 08/08/2018 [facility] Width 16.1 % 1:17 AM CDT LABORATORIES - [facility] Platelet Count 223 157 - 371 08/08/2018 [facility] x10(9)/L 1:17 AM CDT LABORATORIES - [facility] Leukocytes 7.3 3.4 - 9.6 08/08/2018 [facility] x10(9)/L 1:17 AM CDT LABORATORIES - [facility] Neutrophils 6.40 1.56 - 08/08/2018 [facility] 6.45 1:17 AM CDT LABORATORIES - x10(9)/L [facility] Lymphocytes 0.48 (L) 0.95 - 08/08/2018 [facility] 3.07 1:17 AM CDT LABORATORIES - x10(9)/L [facility] Monocytes 0.42 0.26 - 08/08/2018 [facility] 0.81 1:17 AM CDT LABORATORIES - x10(9)/L [facility] Eosinophils <0.03 0.03 - 08/08/2018 [facility] 0.48 1:17 AM CDT LABORATORIES - x10(9)/L [facility] Basophils <0.03 0.01 - 08/08/2018 [facility] 0.08 1:17 AM CDT LABORATORIES - x10(9)/L [facility] Specimen Anatomical Collection Method Collection Time Receive d Time (Source) Location / / Volume Laterality Blood (Blood, 08/08/2018 12:49 08/08/2018 1:10 Venous) AM CDT AM CDT Jeanmarie Dunne M.D. LAB BLOOD ADD-ON Performing Organization Address City/State/ZIP Code Phon e Number [facility] - [address] [place], [place] [address] [facility] (ABNORMAL) Basic Metabolic Panel (08/08/2018 12:49 AM CDT) [facility] gist Method Time Signature Potassium, S 4.6 3.6 - 5.2 08/08/2018 [facility] mmol/L 1:50 AM CDT LABORATORIES - [facility] Sodium, S 142 135 - 145 08/08/2018 [facility] mmol/L 1:50 AM CDT LABORATORIES - [facility] Chloride, S 103 98 - 107 08/08/2018 [facility] mmol/L 1:50 AM CDT LABORATORIES - [facility] Bicarbonate, S 27 22 - 29 08/08/2018 [facility] mmol/L 1:50 AM CDT LABORATORIES - [facility] Anion Gap 12 7 - 15 08/08/2018 [facility] 1:50 AM CDT LABORATORIES - [facility] BUN (Blood 12 6 - 21 08/08/2018 [facility] Urea mg/dL 1:50 AM CDT LABORATORIES - Nitrogen), S [facility] Creatinine 0.53 (L) 0.59 - 08/08/2018 [facility] 1.04 1:50 AM CDT LABORATORIES - mg/dL [facility] eGFR-Non >90 >=60 08/08/2018 [facility] Black/ mL/min/BS 1:50 AM CDT LABORATORIES - [place] A [facility] Comment: ----ADDITIONAL INFORMATION---- Estimated GFR calculated using the 2009 CKD_EPI creatinine equation. eGFR-Black/ >90 >=60 mL/min/BSA 08/08/2018 1:50 [facility] [place] AM CDT LABORATORIES - [facility] Comment: ----ADDITIONAL INFORMATION---- Estimated GFR calculated using the 2009 CKD_EPI creatinine equation. Calcium, Total, S 8.8 8.8 - 10.2 mg/dL 08/08/2018 1:50 AM [facility] CDT LABORATORIES - [facility] Glucose, S 134 70 - 140 mg/dL 08/08/2018 1:50 AM [facility] CDT LABORATORIES [facility] Specimen Anatomical Collection Method Collection Time Receive d Time (Source) Location / / Volume Laterality Blood (Blood, 08/08/2018 12:49 08/08/2018 1:10 Venous) AM CDT AM CDT Jeanmarie Dunne M.D. LAB BLOOD ADD-ON Performing Organization Address City/State/ZIP Code Phon e Number [facility]IES - [address] [place], [place] [address] [facility] (ABNORMAL) Glucose, POCT (08/07/2018 10:05 PM [...] Provider LAB POCT ORDERABLES-MANUAL Performing Organization Address City/[facility] Code Phon e Number POC [facility] [address] [place] [address] Glucose, POCT (08/07/2018 5:53 PM CDT) Analysis [...] Provider LAB POCT ORDERABLES-MANUAL Performing Organization Address [facility] Phon e Number POC [facility] [address] [place] [address] IV Placement Attempt No upper extremity site restrictions (08/07/2018 4:40 PM CDT) [facility] gist Method Time Signature IV Placement Successful 08/07/2018 [facility] Attempt 4:40 PM CDT [facility] Specimen Anatomical Collection Method Collection Time Receive d Time (Source) Location / / Volume Laterality 08/07/2018 4:40 PM 9 4:40 CDT PM CDT Jr Escobar M.D. IV THERAPY ORDERABLES Performing Organization Address City/[facility] Phon e Number [facility]IES - [address] [place], [place] [address] [facility] (ABNORMAL) Basic Metabolic Panel (08/07/2018 4:28 PM CDT) [facility] g[facility] Method Time Signature Potassium, P 4.1 3.6 - 5.2 08/07/2018 [facility] mmol/L 4:48 PM CDT LABORATORIES - [facility] Sodium, P 140 135 - 145 08/07/2018 [facility] mmol/L 4:48 PM CDT LABORATORIES - [facility] Chloride, P 101 98 - 107 08/07/2018 [facility] mmol/L 4:48 PM CDT LABORATORIES - [facility] Bicarbonate, P 28 22 - 29 08/07/2018 [facility] mmol/L 4:48 PM CDT LABORATORIES - [facility] Anion Gap, P 11 7 - 15 08/07/2018 [facility] 4:48 PM CDT LABORATORIES - [facility] BUN (Blood 13 6 - 21 08/07/2018 [facility] Urea mg/dL 4:48 PM CDT LABORATORIES - Nitrogen), P [facility] Creatinine 0.49 (L) 0.59 - 08/07/2018 [facility] 1.04 4:48 PM CDT LABORATORIES - mg/dL [facility] eGFR-Black/Afr >90 >=60 08/07/2018 [facility] ican [place] mL/min/BS 4:48 PM CDT LABORATORIES - A [facility] Comment: ----ADDITIONAL INFORMATION---- Estimated GFR calculated using the 2009 CKD_EPI creatinine equation. eGFR Non-Black/ >90 >=60 mL/min/BSA 08/07/2018 4:48 [facility] [place] PM CDT LABORATORIES - [facility] Comment: ----ADDITIONAL INFORMATION---- Estimated GFR calculated using the 2009 CKD_EPI creatinine equation. Calcium, Total, P 8.7 (L) 8.8 - 10.2 08/07/2018 4:48 PM [facility] mg/dL CDT LABORATORIES - [facility] Glucose, P 146 (H) 70 - 140 mg/dL 08/07/2018 4:48 PM [facility] CDT LABORATORIES - [facility] Specimen Anatomical Collection Method Collection Time Receive d Time (Source) Location / / Volume Laterality Blood (Blood, 08/07/2018 4:28 PM 08/08/19 19 4:30 Venous) CDT PM CDT Jeanmarie Dunne M.D. LAB BLOOD ADD-ON Performing Organization Address City/State/ZIP Code Phon e Number [facility]IES - [address] [place], [place] [address] [facility] pH (08/07/2018 4:27 PM CDT) athologist Signature pH 7.37 7.35 - 7.45 08/07/2018 [facility] pH 4:32 PM CDT LABORATORIES - [facility] Specimen Anatomical Collection Method Collection Time Receive d Time (Source) Location / / Volume Laterality Blood 08/07/2018 4:27 PM 9 4:30 CDT PM CDT Jeanmarie Dunne M.D. LAB HISTORICAL ORDERS Performing Organization Address City/[facility]/ZIP Code Phon e Number [facility]IES - [address] [place] [address] [facility] Fibrinogen (08/07/2018 4:27 PM CDT) [facility] Fibrinogen, P 383 200 - 393 08/07/2018 [facility] mg/dL 4:42 PM CDT LABORATORIES [facility] Specimen Anatomical Collection Method Collection Time Receive d Time (Source) Location / / Volume Laterality Blood (Blood, 08/07/2018 4:27 PM 08/08/19 19 4:30 Venous) CDT PM CDT Jeanmarie Dunne M.D. LAB BLOOD ADD-ON Performing Organization Address City/[facility] Code Phon e Number [facility]IES - [address] [place] [address] [facility] Prothrombin Time (PT/INR) (08/07/2018 4:27 PM CDT) [facility] Method Time Signature Prothrombin 10.4 9.4 - 12.5 08/07/2018 [facility] Time, P sec 4:42 PM CDT LABORATORIES - [facility] INR 1.0 0.9 - 1.1 08/07/2018 [facility] 4:42 PM CDT LABORATORIES - [facility] Comment: ----ADDITIONAL INFORMATION---- Standard intensity warfarin therapeutic range: 2.0 to 3.0 ?? High intensity warfarin therapeutic rang e: 2.5 to 3.5 Specimen Anatomical Collection Method Collection Time Receive d Time (Source) Location / / Volume Laterality Blood (Blood, 08/07/2018 4:27 PM 08/08/19 19 4:30 Venous) CDT PM CDT Jeanmarie Dunne M.D. LAB BLOOD ADD-ON Performing Organization Address City/[facility]/ZIP Code Phon e Number [facility] - [address] [address] [facility] APTT (Activated Partial Thromboplastin Time) (08/07/2018 4:27 PM CDT) P athologist Signature Activated 25 25 - 37 08/07/2018 [facility] Partial sec 4:44 PM CDT LABORATORIES - Thrombopl [facility] Specimen Anatomical Collection Method Collection Time Receive d Time (Source) Location / / Volume Laterality Blood (Blood, 08/07/2018 4:27 PM 08/08/19 19 4:30 Venous) CDT PM CDT Jeanmarie Dunne M.D. LAB BLOOD ADD-ON Performing Organization Address City/[facility]/ZIP Code Phon e Number [facility] - [address] [address] [facility] Phosphorus Inorganic (08/07/2018 4:27 PM CDT) Analysis Performed At Patho logist Time Signature Phosphorus 4.3 2.5 - 4.5 08/07/2018 [facility] (Inorganic), S mg/dL 9:21 PM CDT LABORATORIES - [facility] Specimen Anatomical Collection Method Collection Time Receive d Time (Source) Location / / Volume Laterality Blood (Blood, 08/07/2018 4:27 PM 08/08/19 19 4:47 Venous) CDT PM CDT Jeanmarie Dunne M.D. LAB BLOOD ADD-ON Performing Organization Address City/State/ZIP Code Phon e Number [facility] - [address] [address] [facility] Magnesium (08/07/2018 4:27 PM CDT) athologist Signature Magnesium, S 1.7 1.7 - 2.3 08/07/2018 [facility] mg/dL 9:21 PM CDT LABORATORIES - [facility] Specimen Anatomical Collection Method Collection Time Receive d Time (Source) Location / / Volume Laterality Blood (Blood, 08/07/2018 4:27 PM 08/08/19 19 4:47 Venous) CDT PM CDT Jeanmarie Dunne M.D. LAB BLOOD ADD-ON Performing Organization Address City/State/ZIP Code Phon e Number [facility] - [address] [address] [facility] Lactate (08/07/2018 4:27 PM CDT) P athologist Signature Lactate, P 1.2 0.5 - 2.2 08/07/2018 [facility] mmol/L 4:45 PM CDT LABORATORIES - [facility] Specimen Anatomical Collection Method Collection Time Receive d Time (Source) Location / / Volume Laterality Blood (Blood, 08/07/2018 4:27 PM 08/08/19 19 4:30 Venous) CDT PM CDT Jeanmarie Dunne M.D. LAB BLOOD NON ADD-ON Performing Organization Address City/[facility] Phon e Number [facility] - [address] [address] [facility] Calcium, Ionized (08/07/2018 4:27 PM CDT) P athologist Signature Calcium, 4.73 4.65 - 08/07/2018 [facility] Ionized, B 5.30 mg/dL 4:32 PM CDT LABORATORIES [facility] Specimen Anatomical Collection Method Collection Time Receive d Time (Source) Location / / Volume Laterality Blood (Blood, 08/07/2018 4:27 PM 08/08/19 19 4:30 Venous) CDT PM CDT Jeanmarie Dunne M.D. LAB BLOOD NON ADD-ON Performing Organization Address City/[facility] Code Phon e Number [facility] - [address] [address] [facility] (ABNORMAL) CBC without Differential (08/07/2018 4:27 PM CDT) [facility] Method Time Signature Hemoglobin 10.9 (L) 11.6 - 08/07/2018 [facility] 15.0 g/dL 4:33 PM CDT LABORATORIES - [facility] Hematocrit 34.5 (L) 35.5 - 08/07/2018 [facility] 44.9 % 4:33 PM CDT LABORATORIES - [facility] Erythrocytes 3.81 (L) 3.92 - 08/07/2018 [facility] 5.13 4:33 PM CDT LABORATORIES - x10(12)/L [facility] MCV 90.6 78.2 - 08/07/2018 [facility] 97.9 fL 4:33 PM CDT LABORATORIES [facility] RBC Distrib 14.4 12.2 - 08/07/2018 [facility] Width 16.1 % 4:33 PM CDT LABORATORIES - [facility] Platelet Count 212 157 - 371 08/07/2018 [facility] x10(9)/L 4:33 PM CDT LABORATORIES - [facility] Leukocytes 10.8 (H) 3.4 - 9.6 08/07/2018 [facility] x10(9)/L 4:33 PM CDT LABORATORIES - [facility] Specimen Anatomical Collection Method Collection Time Receive d Time (Source) Location / / Volume Laterality Blood (Blood, 08/07/2018 4:27 PM 08/08/19 19 4:30 Venous) CDT PM CDT Jeanmarie Dunne M.D. LAB BLOOD ADD-ON Performing Organization Address City/[facility]/ZIP [facility] Phon e Number [facility] - [address] [place], [place] [address] [facility] Glucose, POCT (08/07/2018 3:52 PM CDT) [...] Provider LAB POCT ORDERABLES-MANUAL Performing Organization Address [facility] Phon e Number [facility] [address] [place] [address] Glucose, POCT (08/07/2018 2:44 PM CDT) Analysis [...] Provider LAB POCT ORDERABLES-MANUAL Performing Organization Address [facility] Phon e Number [facility] [address] [place] [address] Patient Status (08/07/2018 2:35 PM CDT) P athologist Signature O2 Flow 7.0 L/min 08/07/2018 [facility] 2:41 PM CDT LABORATORIES - [facility] Device BPAP 08/07/2018 [facility] 2:41 PM CDT LABORATORIES - [facility] Spont. 24 08/07/2018 [facility] breaths/min 2:41 PM CDT LABORATORIES - [facility] Specimen Anatomical Collection Method Collection Time Receive d Time (Source) Location / / Volume Laterality Blood 08/07/2018 2:35 PM 9 2:41 CDT PM CDT Elder Carr M.D. LAB BLOOD NON ADD-ON Performing Organization Address City/State/ZIP Code Phon e Number [facility] - [address] [place], [place] [address] [facility] (ABNORMAL) Blood Gas with Coox, Arterial (08/07/2018 2:35 PM CDT) Patholo gist Method Time Signature pO2 70 (L) 83 - 108 08/07/2018 [facility] mm Hg 2:46 PM CDT LABORATORIES - [facility] pCO2 50 (H) 32 - 45 08/07/2018 [facility] mm Hg 2:46 PM CDT LABORATORIES - [facility] pH 7.35 7.35 - 08/07/2018 [facility] 7.45 pH 2:46 PM CDT LABORATORIES - [facility] Base Excess 2 -2 - 3 08/07/2018 [facility] mmol/L 2:46 PM CDT LABORATORIES - [facility] HCO3 27 (H) 22 - 26 08/07/2018 [facility] mmol/L 2:46 PM CDT LABORATORIES - [facility] Hemoglobin, B 11.0 (L) 11.6 - 08/07/2018 [facility] 15.0 g/dL 2:46 PM CDT LABORATORIES - [facility] O2Hb 91.6 (L) 94.0 - 08/07/2018 [facility] 98.0 % 2:46 PM CDT LABORATORIES - [facility] COHb 1.4 <3.0 % 08/07/2018 [facility] 2:46 PM CDT LABORATORIES - [facility] MetHb <1.0 <1.5 % 08/07/2018 [facility] 2:46 PM CDT LABORATORIES - [facility] CtO2 14.2 (L) 18.0 - 08/07/2018 [facility] 21.0 vol 2:46 PM CDT LABORATORIES - % [facility] Arterial Art Line 08/07/2018 [facility] Sample Site 2:46 PM CDT LABORATORIES - [facility] Specimen Anatomical Collection Method Collection Time Receive d Time (Source) Location / / Volume Laterality Blood (Blood, 08/07/2018 2:35 PM 08/08/19 19 2:41 Arterial) CDT PM CDT Elder Crar M.D. LAB BLOOD NON ADD-ON Performing Organization Address City/State/ZIP Code Phon e Number [facility] - [address] [place], [place] [address] [facility] (ABNORMAL) Glucose, POCT (08/07/2018 12:42 PM [...] Provider LAB POCT ORDERABLES-MANUAL Performing Organization Address City/[facility]/ZIP Code Phon e Number [facility] [address] [place] [address] DX Chest 1 View (08/07/2018 11:32 AM [...] [place] mg/dL 11:00 AM CDT LABORATORIES [facility] Specimen Anatomical Collection Method Collection Time Receive d Time (Source) Location / / Volume Laterality Blood (Blood, 08/07/2018 10:57 08/07/2018 Arterial Line) AM CDT 10:57 AM CDT Resulting Agency Comment Drawn in [place] 502 Ziggy Schulz M.D. LAB BLOOD TROPONIN Performing Organization Address City/State/ZIP Code Phon e Number [facility] - [address] (ABNORMAL) Blood Gas with Coox, Arterial (08/07/2018 10:57 AM CDT) [facility] Method Time Signature pO2 155 (H) 83 - 108 08/07/2018 [facility] mm Hg 11:00 AM CDT [facility] pCO2 48 (H) 32 - 45 08/07/2018 [facility] mm Hg 11:00 AM CDT [facility] pH 7.37 7.35 - 08/07/2018 [facility] 7.45 pH 11:00 AM T [facility] Base Excess 2 -2 - 3 08/07/2018 [facility] mmol/L 11:00 AM T [facility] HCO3 28 (H) 22 - 26 08/07/2018 [facility] mmol/L 11:00 AM CDT [facility] Hemoglobin, B 9.8 (L) 11.6 - 08/07/2018 [facility] 15.0 g/dL 11:00 AM CDT LABORATORIES - [facility] O2Hb 97.7 94.0 - 08/07/2018 [facility] 98.0 % 11:00 AM CDT LABORATORIES - [facility] COHb 1.2 <3.0 % 08/07/2018 [facility] 11:00 AM CDT LABORATORIES - [facility] MetHb <1.0 <1.5 % 08/07/2018 [facility] 11:00 AM CDT LABORATORIES - [facility] CtO2 13.9 (L) 18.0 - 08/07/2018 [facility] 21.0 vol 11:00 AM CDT LABORATORIES - % [facility] Specimen Anatomical Collection Method Collection Time Receive d Time (Source) Location / / Volume Laterality Blood (Blood, 08/07/2018 10:57 08/07/2018 Arterial Line) AM CDT 10:57 AM CDT Resulting Agency Comment Drawn [place] 502 Ziggy Schulz M.D. LAB BLOOD NON ADD-ON Performing Organization Address City/State/ZIP Code Phon e Number [facility] - [address] [address] [facility] Surgical Pathology, Frozen Lab (08/07/2018 10:13 AM CDT) Component Value Ref Test Analysis Performed At [facility] gist Range Method Time Signature Gross Description A. ??Received fresh labeled left upper lobe wedg e of lung 08/08/2018 [facility] is an 8.3 x 3.8 x 2.9 cm lung wedge resection. ??There is a 3:41 PM LABORATORIES - 1.6 x 1.5 x 0.9 cm solid, martínez mass located approximately T [facility] 0.1 cm from the stapled margin. ??The mass does not CAMPUS umbilicate the visceral pleura. ??Outside Sales Associate tissue submitted for frozen and permanent sections. [...] mass does not umbilicate the visceral pleura. ??Outside Sales Associate tissue submitted for frozen and permanent sections. ??Grossed by MAP. Participated in Ammon Valentin, 08/08/2018 [facility] frances Roldan-Pathology 3:41 PM LABORATORIES - Interpretation Fellow [facility] Report Josie Sands M.D. [phone] 08/08/2018 [facility] electronically I verify that I have examined all relevant slides/ma terials 3:41 PM LABORATORIES - signed by for the specimen(s) and rendered or confirmed the diagnosi s. [facility] Seen in consultation with: ??Ethel Norwood M.D. [phone] PANA 08/08/2018 [facility] 3:41 PM LABORATORIES - T [facility] Block Summary A Left upper lobe wedge of lung 07/28 [facility] A1 Mass to margin 3:41 PM LABORATORIES - A2 Mass to margin [facility] IN A3 Hemorrhagic area PANA B Station 5 lymph node B1 Station 5 lymph node 1(B1) B2 Station 5 lymph node 2(B2) C Left lower lobe wedge of lung C1 Mass 1 C2 Mass 2 Interpretation FINAL DIAGNOSIS 08/08/2018 [facility] A. 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 ??Visceral pleural invasion is absent. PANA Tumor approaches the stapled surgical margin (< [...] [facility] - [address] [place], [place] [address] [facility] (ABNORMAL) Glucose, Whole Blood (08/07/2018 9:53 AM CDT) P athologist Signature Glucose 150 (H) 70 - 140 08/07/2018 [facility] mg/dL 9:56 AM CDT LABORATORIES [facility] Specimen Anatomical Collection Method Collection Time Receive d Time (Source) Location / / Volume Laterality Blood (Blood, 08/07/2018 9:53 AM 08/08/19 19 9:53 Arterial Line) CDT AM CDT Resulting Agency Comment Drawn in [place] Ziggy Schulz M.D. LAB BLOOD TROPONIN Performing Organization Address City/[facility]/ZIP Code Phon e Number [facility] - [address] [place], [place] [address] [facility] Potassium, Blood (08/07/2018 9:53 AM CDT) athologist Signature Potassium, B 4.0 3.6 - 5.2 08/07/2018 [facility] mmol/L 9:56 AM CDT LABORATORIES [facility] Specimen Anatomical Collection Method Collection Time Receive d Time (Source) Location / / Volume Laterality Blood (Blood, 08/07/2018 9:53 AM 08/08/19 19 9:53 Arterial Line) CDT AM CDT Resulting Agency Comment Drawn in [place] Ziggy Schulz M.D. LAB BLOOD NON ADD-ON Performing Organization Address City/[facility]/ZIP Code Phon e Number [facility] - [address] [phone] [facility] Sodium, B (08/07/2018 9:53 AM CDT) athologist Signature Sodium, B 142 135 - 145 08/07/2018 [facility] mmol/L 9:56 AM CDT [facility] Specimen Anatomical Collection Method Collection Time Receive d Time (Source) Location / / Volume Laterality Blood (Blood, 08/07/2018 9:53 AM 08/08/19 19 9:53 Arterial Line) CDT AM CDT Resulting Agency Comment Drawn in [place] Ziggy Schulz M.D. LAB BLOOD NON ADD-ON Performing Organization Address City/[facility]/ZIP Code Phon e Number [facility] - [address] [place], [place] [address] [facility] Calcium, Ionized (08/07/2018 9:53 AM CDT) athologist Signature Calcium, 4.82 4.65 - 08/07/2018 [facility] Ionized, B 5.30 mg/dL 9:56 AM CDT [facility] Specimen Anatomical Collection Method Collection Time Receive d Time (Source) Location / / Volume Laterality Blood (Blood, 08/07/2018 9:53 AM 08/08/19 19 9:53 Arterial Line) CDT AM CDT Resulting Agency Comment Drawn in [place] Ziggy Schulz M.D. LAB BLOOD NON ADD-ON Performing Organization Address City/State/ZIP Code Phon e Number [facility] - [address] [place], [place] [address] [facility] (ABNORMAL) Blood Gas with Coox, Arterial (08/07/2018 9:53 AM CDT) [facility] Method Time Signature pO2 67 (L) 83 - 108 08/07/2018 [facility] mm Hg 9:56 AM CDT LABORATORIES [facility] pCO2 65 (H) 32 - 45 08/07/2018 [facility] mm Hg 9:56 AM CDT LABORATORIES [facility] pH 7.27 (L) 7.35 - 08/07/2018 [facility] 7.45 pH 9:56 AM CDT LABORATORIES [facility] Base Excess 2 -2 - 3 08/07/2018 [facility] mmol/L 9:56 AM CDT LABORATORIES [facility] HCO3 29 (H) 22 - 26 08/07/2018 [facility] mmol/L 9:56 AM CDT LABORATORIES [facility] Hemoglobin, B 9.9 (L) 11.6 - 08/07/2018 [facility] 15.0 g/dL 9:56 AM CDT [facility] O2Hb 88.5 (L) 94.0 - 08/07/2018 [facility] 98.0 % 9:56 AM CDT LABORATORIES [facility] COHb 1.2 <3.0 % 08/07/2018 [facility] 9:56 AM CDT LABORATORIES [facility] MetHb <1.0 <1.5 % 08/07/2018 [facility] 9:56 AM CDT [facility] CtO2 12.4 (L) 18.0 - 08/07/2018 [facility] 21.0 vol 9:56 AM CDT LABORATORIES - [facility] Specimen Anatomical Collection Method Collection Time Receive d Time (Source) Location / / Volume Laterality Blood (Blood, 08/07/2018 9:53 AM 08/08/19 19 9:53 Arterial Line) CDT AM CDT Resulting Agency Comment Drawn in [place] Ziggy Schulz M.D. LAB BLOOD NON ADD-ON Performing Organization Address City/State/ZIP Code Phon e Number [facility] - [address] [place], [place] [address] [facility] Glucose, POCT (08/07/2018 6:53 AM CDT) [...] Address City/State/ZIP Code Phon e Number POC [facility] [address] [place] [address] documented in this encounter Visit Diagnoses Diagnosis [...] 20 mL/hr magnesium hydroxide suspension 30 mL (OR LK [...] Renee R.N.) 2214 (Given - Provider: Fernando Vernno R.N.) 400 mg, oral, Daily at bedtime, [...] Beatriz Renee R.N.)0614 (Given - Provider: Beatriz Rneee R.N.)1216 (Given - Provider: Esvin Savage R.N.)1816 [...] RYahir) 0612 (Given - Provider: Fernando Vernon RJamie.)1641 (Not Given - Provider: Beartiz Renee R.N. - Reason: Other) 5,000 Units, [...] (DUO-NEB) 0529 (Given - Provider: Twyla Del Rio, R.N.)1112 (Given - Provider: Esvin Savage, R.N.) [...]
--- OUTSIDE RECORDS SUMMARY | 2022-03-08 10:11 | XMS_ITS | Encounter Summary ---
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 [place] [address] [place] [phone] Referral ID Status Reason Start Date Expiration Date Visits Requ ested Visits Authorized [id number] Closed 06/18/2018 06/18/2019 1 1 Encounter Details Date Type Department Care Team Description 06/25/2018 Comprehensive Visit Division of [facility] Neoplasm Of Pulmonary Medicine Dung Walden M.D. Lung Adenocarcinoma in [place], [facility] [address] [facility] (HCC) [place], [place] [address] [facility] [id number] [place], [place] [phone] (Work) [phone] Social History Tobacco Use Types Packs/Day Years [...] (218 lb 7.6 oz) 06/25/2018 11:27 AM [facility] Height 160.8 cm (5' 3.31) 06/25/2018 11:27 AM LIN[facility]YPER Body Mass Index 38.33 06/25/2018 11:27 AM LINOTYPER documented in this encounter Consult Notes Dung Longoria M.D. - 06/25/2018 11:30 AM CST SUBJECTIVE REASON FOR CONSULT Please do bronchoscopy. HISTORY OF PRESENT ILLNESS This is a 63-year-old former smoker who comes to us from [place], [place], which is near [place]. She has a background history of asthma, [...] BMI = 38. SOCIAL HISTORY Approximately a [id number] history of smoking, quit 14 years ago. [...] to do this in the OR at [facility]. I let her know that I will [...] We talked about the relative risks/benefits/alternatives. Thanks! TYPER documented in this encounter Plan of Treatment Not on filedocumented as of this encounter Visit Diagnoses Diagnosis 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) documented in this encounter
--- OUTSIDE RECORDS SUMMARY | 2022-03-08 10:11 | XMS_ITS | Encounter Summary ---
:1955 Author Organization [facility] Address [address] [place] [address] Care Team Providers Name Role Phone Unavailable Primary Care Provider Unavailable Reason for Visit MRI/CAT/PET Scan (Routine) - Canceled Specialty Diagnoses / Procedures Referred By Contact Refer red To Contact Radiology Diagnoses Malignant Neoplasm Of Lung Adenocarcinoma Left (HCC) Laquita Silverio M.D. [facility] Procedures CT Chest without IV Contrast MD CT THORAX WO CNTRST HC CT THORAX WO CNTRST MD CT THORAX WO CNTRST [address] [place] [address] Referral ID Status Reason Start Date Expiration Date Visits V isits Requested Authorized [id number] Canceled 05/07/2018 05/07/2019 1 1 Encounter Details Date Type Department Care Team Description 05/27/2018 Hospital Encounter Department of Laquita Silverio Neoplasm Of Radiology, Brian Brown M.D. Lung Adenocarcinoma [facility], in [address] [place] [address] Left (HCC) [facility] [id number] [address] [facility] [phone] [place], [place] (Work) [phone] [phone] Social History Tobacco Use Types Packs/Day Years [...] 165.1 cm (5' 5) 05/27/2018 11:32 AM COMMUNICATION ARTS LECTURER Body Mass Index - - documented in [...] Of Results for CONTRAST (most inpatients PM COMMUNICATION ARTS LECTURER Lung Adenocarcinoma this procedure and all Left (HCC) are in the outpatients) results section. CREATININE, Routine 05/27/2018 11:43 Results for POCT, B AM COMMUNICATION ARTS LECTURER this procedure are in the results section. CREATININE, Routine 05/27/2018 11:43 Results for POCT, B AM COMMUNICATION ARTS LECTURER this procedure are in the results section. documented in this encounter Results CT Chest with IV Contrast (05/27/2018 12:10 PM COMMUNICATION ARTS LECTURER) Anatomical Region Laterality Modality Chest, Thoracic RST LOS, Thoracic ARZ LOS, Thoracic N/A Computed Tomography ARZ LOS, Thoracic FLA LOS Specimen (Source) Anatomical Collection Method Collection Time Re ceived Time Location / / Volume Laterality 05/27/2018 12:14 PM COMMUNICATION ARTS LECTURER Impressions 05/27/2018 12:22 PM COMMUNICATION ARTS LECTURER IMPRESSION: 1. Spiculated nodule in the left [...] the lung parenchyma. Narrative 05/27/2018 12:22 PM COMMUNICATION ARTS LECTURER EXAM: CT CHEST WITH IV CONTRAST No [...] CT PROCEDURES Creatinine, POCT (05/27/2018 11:43 AM COMMUNICATION ARTS LECTURER) P athologist Signature Creatinine, 0.6 0.6 - 1.0 05/27/2018 POC ROSEBUD POCT, B mg/dL 11:47 AM COMMUNICATION ARTS LECTURER PERFORMING LABS Comment: ----ADDITIONAL INFORMATION---- Performed at the Point of Care Specimen Anatomical Collection Method Collection Time Receive d Time (Source) Location / / Volume Laterality Blood 05/27/2018 11:43 05/27/2018 AM COMMUNICATION ARTS LECTURER 11:47 AM COMMUNICATION ARTS LECTURER Unknown Provider LAB POCT ORDERABLES - DEVICE Performing Organization Address [facility] Phon e Number [facility] PERFORMING LABS [address] [place] [address] Creatinine, POCT (05/27/2018 11:43 AM COMMUNICATION ARTS LECTURER) P athologist Signature eGFR-Black/Afr >90 >=60 05/27/2018 POC RST ican Cymro, mL/min/BSA 11:47 AM COMMUNICATION ARTS LECTURER YAZDANISM POCT OUTPATIENT LABS Comment: ----ADDITIONAL INFORMATION---- Estimated GFR calculated using the 2009 CKD_EPI creatinine equation. eGFR Non-Black/ >90 >=60 mL/min/BSA 05/27/2018 11:47 POC RST YAZDANISM Cymro, POCT AM COMMUNICATION ARTS LECTURER OUTPATIENT LABS Comment: ----ADDITIONAL INFORMATION---- Estimated GFR calculated using the 2009 CKD_EPI creatinine equation. Specimen Anatomical Collection Method Collection Time Receive d Time (Source) Location / / Volume Laterality Blood 05/27/2018 11:43 05/27/2018 AM COMMUNICATION ARTS LECTURER 11:47 AM COMMUNICATION ARTS LECTURER Unknown Provider LAB POCT ORDERABLES - DEVICE Performing Organization Address [facility] Phon e Number POC RST YAZDANISM OUTPATIENT [address] [place], [place] [address] LABS documented in this encounter Visit Diagnoses Diagnosis 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) documented in this encounter Administered Medications Inactive Administered Medications - up to 3 most recent administrations Medication Order MAR Action Action Date Dose Rate Site iohexol 300 mg iodine/mL solution Given 05/27/2018 11:59 AM COMMUNICATION ARTS LECTURER 80 mL 1-200 mL (OMNIPAQUE) 1-200 mL, intravenous, Once in imaging, contrast, Starting on Sat05/27/18 at 1119, For 1 dose, Imaging Protocol Orders, Dose per Radiant Medication Guidelines sodium chloride 0.9 % injection 2.5 mL Given 05/27/2018 12:00 PM COMMUNICATION ARTS LECTURER 2.5 mL 2.5 mL, intravenous, Once, On Sat05/27/18 at 1130, For 1 dose documented in this encounter
--- OUTSIDE RECORDS SUMMARY | 2022-03-08 10:11 | XMS_ITS | Encounter Summary ---
:1955 Author Organization [facility] Address [address] [place] [address] Care Team Providers Name Role Phone Unavailable Primary Care Provider Unavailable Encounter Details Date Type Department Care Team Description 06/30/2018 Anesthesia Event RST ROMB MAIN OR Erika Padilla APRN, GEORGIE, D.N.P. [address] [place] [address] [address] [facility] Marshall Rock M.D. [address] [place] [phone] [place] [address] Anesthesia Record Procedure Summary [...] h andoff to the receiving staff [facility] 1. Identified the patient [...] Procedure Summary Date: 06/30/18 Room / Location: [place] [address] / [facility] [place] in [place], [place] Anesthesia Start: 1042 Anesthesia Stop: 1202 [...] Post Op nausea/vomiting: none Hydration status: euvolemic SLATOR Anesthesia Preprocedure Evaluation - Marshall Rock M.D. [...] patient / legal guardian, or through an freelance interpreter/translator; patient evaluated and approved for anesthesia / sedation. Use of blood products discussed with patient who consented to blood products. SLATOR documented in this encounter Plan of Treatment Not on filedocumented as of this encounter Visit Diagnoses Not on filedocumented in this encounter Administered Medications Inactive Administered Medications - up to 3 most recent administrations Medication Order MAR Action Action Date Dose Rate Site fentaNYL injection (SUBLIMAZE) Given 06/30/2018 11:29 AM TRANSLATOR 12.5 mcg intravenous, As needed, severe pain or score 7-10 of 10, Starting on Sat06/30/18 at 1050, Anesthesia Intra-op Given 06/30/2018 11:25 AM TRANSLATOR 12.5 mcg Given 06/30/2018 11:11 AM TRANSLATOR 12.5 mcg lactated ringers New Bag 06/30/2018 10:42 AM TRANSLATOR intravenous, Continuous Infusion: Per Instructions PRN, Starting on Sat06/30/18 at 1042, Anesthesia Intra-op lidocaine (PF) (cardiac) injection Given 06/30/2018 10:50 AM TRANSLATOR 40 mg intravenous, As needed, Starting on Sat06/30/18 at 1050, Anesthesia Intra-op ondansetron (PF) injection (ZOFRAN) Given 06/30/2018 11:41 AM TRANSLATOR 4 mg intravenous, As needed, nausea, vomiting, Starting on Sat06/30/18 at 1141, Anesthesia Intra-op propofol 10 mg/mL infusion Rate/Dose 06/30/2018 85 mcg/kg/min 50.5 m L/hr (DIPRIVAN) Change 11:43 AM TRANSLATOR intravenous, Continuous Infusion: Per Instructions PRN, Starting on Sat06/30/18 at 1051, Anesthesia Intra-op Rate/Dose Change 06/30/2018 11:32 AM TRANSLATOR 120 mcg/kg/min 71.4 mL/hr Rate/Dose Change 06/30/2018 11:25 AM TRANSLATOR 110 mcg/kg/min 65.4 mL/hr propofol injection (DIPRIVAN) Given 06/30/2018 10:57 AM TRANSLATOR 20 mg intravenous, As needed, Starting on Sat06/30/18 at 1053, Anesthesia Intra-op Given 06/30/2018 10:53 AM TRANSLATOR 15 mg Given 06/30/2018 10:50 AM TRANSLATOR 20 mg documented in this encounter
--- OUTSIDE RECORDS SUMMARY | 2022-03-08 10:11 | XMS_ITS | Encounter Summary ---
:1955 Author Organization [facility] Address [address] [place] [address] Care Team Providers Name Role Phone Unavailable Primary Care Provider Unavailable Encounter Details Date Type Department Care Team Description 06/13/2018 Hospital Encounter Department of Francesco Vang Neoplasm Radiology, Torres Yeager III, P.A.- CElvi Of Lung ([facility]) [facility], in [address] [place] [phone] [place] [address] [place], [place] (Work) [phone] Social History Tobacco Use Types Packs/Day Years [...] Results for this THIGH (most inpatients PM CLUB ROOM ATTENDANT Neoplasm Of Lung procedu re are in and all (HCC) the results outpatients) section. documented in this encounter Results PET CT Skull to Thigh FDG (06/13/2018 12:40 PM CLUB ROOM ATTENDANT) Anatomical Region Laterality Modality Body, Nuclear Medicine PET RST LOS, PET N/A Positron Emission Tomography (PET) ARZ LOS, Nuclear Medicine PET FLA LOS Specimen (Source) Anatomical Collection Method Collection Time Re ceived Time Location / / Volume Laterality 06/13/2018 12:44 PM CLUB ROOM ATTENDANT Impressions 06/13/2018 1:29 PM CLUB ROOM ATTENDANT IMPRESSION: ?? 1. Stable non-FDG avid biopsy-proven [...] for further delineation. Narrative 06/13/2018 1:29 PM CLUB ROOM ATTENDANT EXAM: ??PET CT SKULL TO THIGH FDG Finger stick glucose level at the time o f the PET scan injection was 89 mg/dL. RADIOPHARMACEUTICAL/MEDS: Route: intravenous fludeoxyglucose F 18 injection FCI (FDG F-18),15.03 millicurie TECHNIQUE: ??F-18 FDG PET/CT [...] RADIOPHARMACEUTICAL/MEDS: Route: intravenous fludeoxyglucose F 18 injection FCI (FDG F-18),15.03 millicurie TECHNIQUE: F-18 FDG PET/CT [...] 18 Given 06/13/2018 10:48 15.03 millicuries injection FCI (FDG F-18) AM CLUB ROOM ATTENDANT 15.03 millicurie, intravenous, Once, On Sat06/13/18 at 1100, For 1 dose documented in this encounter
--- OUTSIDE RECORDS SUMMARY | 2022-03-08 10:11 | XMS_ITS | Encounter Summary ---
:1955 Author Organization [facility] Address [address] [place] [address] Care Team Providers Name Role Phone Unavailable Primary Care Provider Unavailable Encounter Details Date Type Department Care Team Description 06/16/2018 Orders Only Department of Oncology in Laquita Silverio M.D. [facility] [address] [place] [phone] (Wo rk) Social History Tobacco Use Types [...]
--- OUTSIDE RECORDS SUMMARY | 2022-03-08 10:11 | XMS_ITS | Encounter Summary ---
:1955 Author Organization [facility] Address [address] [place] [address] Care Team Providers Name Role Phone Unavailable Primary Care Provider Unavailable Encounter Details Date Type Department Care Team Description 06/30/2018 Hospital Encounter RST ROMB MAIN OR MidthunKeaton Malignant Neoplasm Of [address] [facility] Jamar Alba Lung Adenocarcinoma [place], [place] [address] [facility] Left ([facility]) [phone] [place], [place] [phone] Social History Tobacco Use Types Packs/Day Years [...] Comments Blood Pressure 140/86 06/30/2018 12:30 PM PACKAGE CHECKER Pulse 103 06/30/2018 1:15 PM PACKAGE CHECKER Temperature 36.8 ??C (98.2 ??F) 06/30/2018 12:30 PM PACKAGE CHECKER Respiratory Rate 26 06/30/2018 12:45 PM PACKAGE CHECKER Oxygen Saturation 95% 06/30/2018 1:15 PM PACKAGE CHECKER Inhaled Oxygen Concentration - - Weight 99.1 kg (218 lb 7.6 oz) 06/30/2018 9:02 AM PACKAGE CHECKER Height 160.8 cm (5' 3.31) 06/30/2018 9:02 AM PACKAGE CHECKER Body Mass Index 38.33 06/30/2018 9:02 AM PACKAGE CHECKER documented in this encounter Medications at Time [...] changes to the H&P. Sukhdeep Meza M.D. AGE CHECKER Source Note - Dung Longoria M.D. - 06/25/2018 11:30 AM PACKAGE CHECKER SUBJECTIVE REASON FOR CONSULT Please do bronchoscopy. HISTORY OF PRESENT ILLNESS This is a 63-year-old former smoker who comes to us from [place], [place], which is near [place]. She has a background history of asthma, [...] BMI = 38. SOCIAL HISTORY Approximately a 77-cbjj-wbja history of smoking, quit 14 years ago. [...] to do this in the OR at [facility]. I let her know that I will [...] We talked about the relative risks/benefits/alternatives. Thanks! AGE CHECKER documented in this encounter OR Notes Op [...] implants in log * Keaton Noe M.D. AGE CHECKER Brief Op Note - Ryan Meza M.D. [...] implants in log * Sukhdeep Meza M.D. AGE CHECKER documented in this encounter Plan of Treatment Not on filedocumented as of this encounter Procedures Procedure Name Priority Date/Time Associated Diagnosis Comme nts CYTOLOGY FINE NEEDLE Routine 06/30/2018 11:05 Malignant Neopla sm Of Results for this ASPIRATION (INCLUDES AM PACKAGE CHECKER Lung Adenocarcinoma procedure are in CORE BIOPSIES Left (HCC) the results section. BRONCHOSCOPY FLEXIBLE: 06/30/2018 10:12 Malignant Neop lasm Of ENDOBRONCHIAL AM PACKAGE CHECKER Lung Adenocarcinoma ULTRASOUND GUIDED Left (HCC) TRANSBRONCHIAL NEEDLE ASPIRATION documented in this encounter Results (ABNORMAL) Cytology Fine Needle Aspiration (including core biopsies) (06/30/2018 11:05 AM PACKAGE CHECKER) Component Value Ref Test Analysis Performed At [facility] Range Method Time Signature Gross Description A: ?? Received 4 spray-fixed smears, 4 Diff-Quik stained 07/01/2018 [facility] smears, and 4cc of blood-tinged fluid. 1 0:16 AM LABORATORIES - Specimen evaluated for adequacy on site. [facility] B: ?? Received 4 spray-fixed smears, 4 [...] EBUS fine needle aspiratio n 07/01/2018 [facility] B. Lymph node, Station 7, EBUS fine needle aspiration 10:16 AM LABORATORIES - C. Lymph node, Station 4 left, EBUS fine needle aspiration [facility] D. Lymph node, Station 11 left, EBUS fine needle aspiration [place] (I) Report Laquita Souza M.D. [id number] 07/01/2018 [facility] electronically I verify that I have examined all relevant slides/ma terials 10:16 AM LABORATORIES - signed by for the specimen(s) and rendered or confirmed the diagnosi s. [facility] () [place] (I) 07/01/2018 [facility] 10:16 AM LABORATORIES - [facility] Interpretation A. Lymph node, Station 4 right, EBUS fine needle asp iration 07/01/2018 [facility] (smears/cell block): Negative for malignancy. Lymphocytes 10:16 AM LABORATORIES - consistent with sampled lymph node. [facility] B. Lymph node, Station 7, EBUS fine needle aspiration [place] (smears/cell block): Negative for malignancy. Lymphocytes consistent [...] Laterality Aspirate (Lymph 06/30/2018 11:05 Node) AM PACKAGE CHECKER Aspirate (Lymph 06/30/2018 11:19 Node) AM PACKAGE CHECKER Aspirate (Lymph 06/30/2018 11:32 Node) AM PACKAGE CHECKER Aspirate (Lymph 06/30/2018 11:38 Node) AM PACKAGE CHECKER Narrative This result has an attachment that is no t available. Keaton Noe M.D. 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 Scheduled Medication Order 06/28/2018 06/29/2018 06/30/2018 ipratropium-albuterol [...]
--- OUTSIDE RECORDS SUMMARY | 2022-03-08 10:11 | XMS_ITS | Encounter Summary ---
:1955 Author Organization [facility] Address [address] [place] [address] Support Name Relationship Address Phone Naomi Ngo Sibling [address] [facility] [phone] [address] [place] [address] Care Team Providers Name Role Phone Unavailable Primary Care Provider Unavailable Encounter Details Date Type Department Care Team Description 06/11/2018 Orders Only Division of Thoracic Francesco Vang Neoplasm Of Surgery in [place], [facility] C. Lung (HCC) [place] [address] [facility] [address] [place] [address] [phone] Social History Tobacco Use Types Packs/Day Years [...] Skull to Thigh FDG (06/13/2018 12:40 PM INFORMATION TECHNOLOGY INTERN) Anatomical Region Laterality Modality Body, Nuclear Medicine PET RST LOS, PET N/A Positron Emission Tomography (PET) ARZ LOS, Nuclear Medicine PET FLA LOS Specimen (Source) Anatomical Collection Method Collection Time Re ceived Time Location / / Volume Laterality 06/13/2018 12:44 PM INFORMATION TECHNOLOGY INTERN Impressions 06/13/2018 1:29 PM INFORMATION TECHNOLOGY INTERN IMPRESSION: ?? 1. Stable non-FDG avid biopsy-proven [...] for further delineation. Narrative 06/13/2018 1:29 PM INFORMATION TECHNOLOGY INTERN EXAM: ??PET CT SKULL TO THIGH FDG Finger stick glucose level at the time o f the PET scan injection was 89 mg/dL. RADIOPHARMACEUTICAL/MEDS: Route: intravenous fludeoxyglucose F 18 injection INTERMEDIATE (FDG F-18),15.03 millicurie TECHNIQUE: ??F-18 FDG PET/CT [...] RADIOPHARMACEUTICAL/MEDS: Route: intravenous fludeoxyglucose F 18 injection INTERMEDIATE (FDG F-18),15.03 millicurie TECHNIQUE: F-18 FDG PET/CT [...] for further delineation. Francesco Vang III, P.A.-C. [facility] PROCEDURES documented in this encounter Visit Diagnoses Diagnosis Malignant Neoplasm Of Unspecified Part O f Lung Laterality Unknown (HCC) Malignant Neoplasm Of Unspecified Part O f Lung Laterality Unknown (HCC) documented in this encounter
--- OUTSIDE RECORDS SUMMARY | 2022-03-08 10:11 | XMS_ITS | Encounter Summary ---
:1955 Author Organization [facility] Address [address] [place] [address] Care Team Providers Name Role Phone Unavailable Primary Care Provider Unavailable Encounter Details Date Type Department Care Team Description 06/30/2018 Surgery RST ROMB MAIN OR Keaton Noe, Bronchoscopy Flexible: [address] M.D. Endobronchial Ultrasound [place], [place] [address] Guided Transbronchial [address] [place], [place] Needle Aspiration [phone] Social History Tobacco Use Types Packs/Day Years [...] Comments Blood Pressure 141/76 06/30/2018 9:02 AM LOT TECHNICIAN Pulse - - Temperature 36.6 ??C (97.9 ??F) 06/30/2018 12:00 PM LOT TECHNICIAN Respiratory Rate 18 06/30/2018 12:00 PM LOT TECHNICIAN Oxygen Saturation 98% 06/30/2018 9:02 AM LOT TECHNICIAN Inhaled Oxygen Concentration - - Weight 99.1 kg (218 lb 7.6 oz) 06/30/2018 9:02 AM LOT TECHNICIAN Height 160.8 cm (5' 3.31) 06/30/2018 9:02 AM LOT TECHNICIAN Body Mass Index 38.33 06/30/2018 9:02 AM LOT TECHNICIAN documented in this encounter Medications at [...] changes to the H&P. Sukhdeep Meza M.D. TECHNICIAN Source Note - Dung Longoria M.D. - 06/25/2018 11:30 AM LOT TECHNICIAN SUBJECTIVE REASON FOR CONSULT Please do bronchoscopy. HISTORY OF PRESENT ILLNESS This is a 63-year-old former smoker who comes to us from [place], [place], [place] is near [place]. She has a background history of asthma, [...] BMI = 38. SOCIAL HISTORY Approximately a 31-tpio-wsnx history of smoking, quit 14 years ago. [...] to do this in the OR at [facility]. I let her know that [...] We talked about the relative risks/benefits/alternatives. Thanks! TECHNICIAN documented in this encounter OR Notes Op [...] implants in log * Keaton Noe M.D. TECHNICIAN Brief Op Note - Ryan Meza M.D. [...] implants in log * Sukhdeep Meza M.D. TECHNICIAN documented in this encounter Plan of Treatment Not on filedocumented as of this encounter Procedures Procedure Name Priority Date/Time Associated Diagnosis Comme nts CYTOLOGY FINE NEEDLE Routine 06/30/2018 11:05 Malignant Neopla sm Of Results for this ASPIRATION (INCLUDES AM LOT TECHNICIAN Lung Adenocarcinoma procedure are in CORE BIOPSIES Left (HCC) the results section. BRONCHOSCOPY FLEXIBLE: 06/30/2018 10:12 Malignant Neop lasm Of ENDOBRONCHIAL AM LOT TECHNICIAN Lung Adenocarcinoma ULTRASOUND GUIDED Left (HCC) TRANSBRONCHIAL NEEDLE ASPIRATION documented in this encounter Results (ABNORMAL) Cytology Fine Needle Aspiration (including core biopsies) (06/30/2018 11:05 AM LOT TECHNICIAN) Component Value Ref Test Analysis Performed At [facility] Range Method Time Signature Gross Description A: ?? Received 4 spray-fixed smears, 4 Diff-Quik stained 07/01/2018 [facility] smears, and 4cc of blood-tinged fluid. 1 0:16 AM LABORATORIES - Specimen evaluated for adequacy on site. LOT TECHNICIAN [facility] B: ?? Received 4 spray-fixed smears, [...] right, EBUS fine needle aspiratio n 07/01/2018 [facility] B. Lymph node, Station 7, EBUS fine needle aspiration 10:16 AM LABORATORIES - C. Lymph node, Station 4 left, EBUS fine needle aspiration [facility] D. Lymph node, Station 11 left, EBUS fine needle aspiration [place] (I) Report Laquita Souza M.D. [id number] 07/01/2018 [facility] electronically I verify that I have examined all relevant slides/ma terials 10:16 AM LABORATORIES - signed by for the specimen(s) and rendered or confirmed the diagnosi s. [facility] () [place] (I) 07/01/2018 [facility] 10:16 AM LABORATORIES - [facility] Interpretation A. Lymph node, Station 4 right, EBUS fine needle asp iration 07/01/2018 [facility] (smears/cell block): Negative for malignancy. Lymphocytes 10:16 AM LABORATORIES - consistent with sampled lymph node. [facility] B. Lymph node, Station 7, EBUS fine needle aspiration [place] (smears/cell block): Negative for malignancy. Lymphocytes consistent [...] Laterality Aspirate (Lymph 06/30/2018 11:05 Node) AM LOT TECHNICIAN Aspirate (Lymph 06/30/2018 11:19 Node) AM LOT TECHNICIAN Aspirate (Lymph 06/30/2018 11:32 Node) AM LOT TECHNICIAN Aspirate (Lymph 06/30/2018 11:38 Node) AM LOT TECHNICIAN Narrative This result has an attachment that is no t available. Keaton Noe M.D. 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) documented in this encounter Administered Medications Inactive Administered Medications - up to 3 most recent administrations Medication Order MAR Action Action Date Dose Rate Site benzocaine 20 % topical Given 06/30/2018 10:49 AM 1 application Other spray ([place]) LOT TECHNICIAN As needed, Starting on Sat06/30/18 at 1049, Intra-Op ipratropium-albuterol 0.5-2.5 mg/3 mL nebulizer Given 06/30/2018 9:43 AM LOT TECHNICIAN 3 mL solution 3 mL (DUO-NEB) 3 mL, nebulization, Once, On Sat06/30/18 at 0915, For 1 dose, Pre-Op lidocaine 10 mg/mL (1 %) injection Given 06/30/2018 10:49 AM LOT TECHNICIAN 17 mL Other (XYLOCAINE) As needed, Starting on Sat06/30/18 at 1049, Intra-Op NaCl 0.9% infusion 20 mL/hr, intravenous, Continuous, Starting on 06/30 at 0915, Pre-Op documented in this encounter Active and Recently Administered Medications Times are shown in LOT TECHNICIAN. Scheduled Medication Order 06/28/2018 06/29/2018 06/30/2018 ipratropium-albuterol [...]
--- OUTSIDE RECORDS SUMMARY | 2022-03-08 10:11 | XMS_ITS | Encounter Summary ---
:1955 Author Organization [facility] Address [address] [place] [address] Care Team Providers Name Role Phone Unavailable Primary Care Provider Unavailable Reason for Referral Outpatient (Routine) - Closed Specialty Diagnoses / Procedures Referred By Contact Refer red To Contact Diagnoses Malignant Neoplasm Of Lung Adenocarcinoma Left (HCC) Laquita Silverio M.D. [facility] Procedures ECG 12 Lead WA EKG 12 LEAD TRACE ONLY WA EKG I&R ONLY [address] [place] [phone] Referral ID Status Reason Start Date Expiration Date Visits Requ ested Visits Authorized [id number] Closed 05/07/2018 05/07/2019 1 1 utpatient (Routine) - Closed Specialty Diagnoses / Procedures Referred By Contact Refer red To Contact Thoracic Surgery Diagnoses Malignant Neoplasm Of Lung Adenocarcinoma Left (HCC) Laquita Silverio M.D. [facility] [address] [place] [phone] Referral ID Status Reason Start Date Expiration Date Visits Requ ested Visits Authorized [id number] Closed 05/07/2018 05/07/2019 1 1 GRINDER Encounter Details Date Type Department Care Team Description 05/07/2018 Orders Only Department of Laquita Silverio [facility] [place], [place] [address] [facility] (HCC) (Primary Dx) [address] [place], [place] [address], [place] [phone] Social History Tobacco Use Types Packs/Day Years Used Date Smoking Tobacco: Never Assessed Sex Assigned at Date Recorded Not on file documented as of this encounter Plan of Treatment Scheduled Referrals Name Type Priority Associated Diagnoses Order S [facility] Thoracic Surgery Outpatient Referral Routine Malignant Neoplas m Of Expected: - General consult Lung Adenocarcinoma 12/2018 (clinic) Left (HCC) (Approximate), Expires: 05/07/2021 documented as of this encounter Results (ABNORMAL) Pulmonary Function Tests (05/27/2018 1:13 PM HAND GRINDER) Analysis Performed At Dr. Scribbles Time Signature [id number] 97.00 % 05/28/2018 [facility] 10:28 AM HAND GRINDER SUITE PulseRest 85.00 1/min 05/28/2018 [facility] 10:28 AM HAND GRINDER SUITE DLCO SINGLE 17.03 14.57 - 05/28/2018 [facility] 27.57 10:28 AM HAND GRINDER SUITE ml/(min*mm Hg) VA SINGLE 3.78 (L) 3.89 - 05/28/2018 [facility] 5.66 L 10:28 AM HAND GRINDER SUITE VC MAX POST 2.33 2.27 - 05/28/2018 [facility] 3.82 L 10:28 AM HAND GRINDER SUITE PostFEV1 1.75 (L) 1.78 - 05/28/2018 [facility] 2.95 L 10:28 AM HAND GRINDER SUITE FEV1/FVC POST 75.15 66.65 - 05/28/2018 [facility] 89.63 % 10:28 AM HAND GRINDER SUITE PostFVC 2.32 2.27 - 05/28/2018 [facility] 3.82 L 10:28 AM HAND GRINDER SUITE FET POST 7.81 sec 05/28/2018 [facility] 10:28 AM HAND GRINDER SUITE PEF POST 4.56 2.95 - 05/28/2018 [facility] 8.25 L/s 10:28 AM HAND GRINDER SUITE FEF 25-75 % 1.35 1.05 - 05/28/2018 [facility] POST 3.58 L/s 10:28 AM HAND GRINDER SUITE VC MAX PRE 2.27 (L) 2.27 - 05/28/2018 [facility] 3.82 L 10:28 AM HAND GRINDER SUITE FEV1 1.65 (L) 1.78 - 05/28/2018 [facility] 2.95 L 10:28 AM HAND GRINDER SUITE FEV1/FVC 72.76 66.65 - 05/28/2018 [facility] 89.63 % 10:28 AM HAND GRINDER SUITE MVV 52.34 (L) 60.47 - 05/28/2018 [facility] 126.47 10:28 AM HAND GRINDER SUITE L/min FVC 2.27 (L) 2.27 - 05/28/2018 [facility] 3.82 L 10:28 AM HAND GRINDER SUITE FET PRE 7.90 sec 05/28/2018 [facility] 10:28 AM HAND GRINDER SUITE PEF PRE 4.78 2.95 - 05/28/2018 [facility] 8.25 L/s 10:28 AM HAND GRINDER SUITE DHY72-22% 1.12 1.05 - 05/28/2018 [facility] 3.58 L/s 10:28 AM HAND GRINDER SUITE FRCPLETH 2.30 1.86 - 05/28/2018 [facility] PROVBASE 3.50 L 10:28 AM HAND GRINDER SUITE RV 2.10 1.36 - 05/28/2018 [facility] 2.51 L 10:28 AM HAND GRINDER SUITE TLC 4.34 3.88 - 05/28/2018 [facility] 5.86 L 10:28 AM HAND GRINDER SUITE RV % TLC PRE 48.43 30.79 - 05/28/2018 [facility] 49.97 % 10:28 AM HAND GRINDER SUITE VC PRE 2.24 (L) 2.27 - 05/28/2018 [facility] 3.82 L 10:28 AM HAND GRINDER SUITE SR MID PRE 9.19 (H) 1.43 - 05/28/2018 [facility] 7.87 10:28 AM HAND GRINDER SUITE cmH2O*s SUBSTANCE POST NaN 05/28/2018 [facility] 10:28 AM HAND GRINDER SUITE DOSE POST NaN 05/28/2018 [facility] 10:28 AM HAND GRINDER SUITE % PRED VC MAX 2.27 (L) 2.27 - 05/28/2018 [facility] 3.82 % 10:28 AM HAND GRINDER SUITE FEV1% 1.65 (L) 1.78 - 05/28/2018 [facility] 2.95 % 10:28 AM HAND GRINDER SUITE % PRED 72.76 66.65 - 05/28/2018 [facility] FEV1/FVC 89.63 % 10:28 AM HAND GRINDER SUITE FVC% 2.27 (L) 2.27 - 05/28/2018 [facility] 3.82 % 10:28 AM HAND GRINDER SUITE % PRED PEF 4.78 2.95 - 05/28/2018 [facility] 8.25 % 10:28 AM HAND GRINDER SUITE % PRED FEF 1.12 1.05 - 05/28/2018 [facility] 25-75% 3.58 % 10:28 AM HAND GRINDER SUITE PRED VC MAX NaN 2.27 - 05/28/2018 [facility] 3.82 L 10:28 AM HAND GRINDER SUITE PRED FEV 1 NaN 1.78 - 05/28/2018 [facility] 2.95 L 10:28 AM HAND GRINDER SUITE PRED FEV1/FVC NaN 66.65 - 05/28/2018 [facility] 89.63 % 10:28 AM HAND GRINDER SUITE PRED FVC NaN 2.27 - 05/28/2018 [facility] 3.82 L 10:28 AM HAND GRINDER SUITE PRED PEF NaN 2.95 - 05/28/2018 [facility] 8.25 L/s 10:28 AM HAND GRINDER SUITE PRED FEF NaN 1.05 - 05/28/2018 [facility] 25-75% 3.58 L/s 10:28 AM HAND GRINDER SUITE Specimen (Source) Anatomical Collection Method Collection Time Re ceived Time Location / / Volume Laterality 05/27/2018 1:13 PM HAND GRINDER Narrative This result has an attachment that is no t available. Laquita Silverio M.D. PFT ORDERABLES Performing Organization Address City/State/ZIP Code Phon e Number [facility] NA ECG 12 Lead (05/27/2018 12:37 PM HAND GRINDER) P athologist Signature Ventricular Rate 83 BPM MUSE ECG/Min WA Interval 134 ms MUSE QRSD Interval 92 ms MUSE QT Interval 382 ms MUSE QTC Interval 448 ms MUSE P [place] 46 degrees MUSE R [place] -2 degrees MUSE T Wave [place] 31 degrees MUSE Specimen Anatomical Collection Method Collection Time Receive d Time (Source) Location / / Volume Laterality 05/27/2018 12:37 05/27/2018 PM HAND GRINDER 12:52 PM HAND GRINDER Impressions MUSE - 05/27/2018 1:03 PM HAND GRINDER Normal sinus rhythm Minimal voltage criteria for [...] Chest with IV Contrast (05/27/2018 12:10 PM HAND GRINDER) Anatomical Region Laterality Modality Chest, Thoracic RST LOS, Thoracic ARZ LOS, Thoracic N/A Computed Tomography ARZ LOS, Thoracic FLA LOS Specimen (Source) Anatomical Collection Method Collection Time Re ceived Time Location / / Volume Laterality 05/27/2018 12:14 PM HAND GRINDER Impressions 05/27/2018 12:22 PM HAND GRINDER IMPRESSION: 1. Spiculated nodule in the left [...] the lung parenchyma. Narrative 05/27/2018 12:22 PM HAND GRINDER EXAM: CT CHEST WITH IV CONTRAST No [...]
--- OUTSIDE RECORDS SUMMARY | 2022-03-08 10:11 | XMS_ITS | Encounter Summary ---
:1955 Author Organization [facility] Address [address] [place] [address] Care Team Providers Name Role Phone Unavailable Primary Care Provider Unavailable Reason for Referral Outpatient (Routine) - Closed Specialty Diagnoses / Procedures Referred By Contact Refer red To Contact Pulmonary Medicine Diagnoses Malignant Neoplasm Of Lung Adenocarcinoma Left (HCC) Laquita Silverio M.D. [address] [phone] Referral ID Status Reason Start Date Expiration Date Visits Requ ested Visits Authorized [id number] Closed 06/18/2018 06/18/2019 1 1 Y PLANNER Encounter Details Date Type Department Care Team Description 06/18/2018 Orders Only Department of Laquita Silverio Malignant N eoplasm Of Oncology in [facility] Lung Adenocarcinoma Left [place] [address] [address] [facility] (HCC) (Primary Dx) [address] [place] [phone] Social History Tobacco Use Types Packs/Day [...]
--- OUTSIDE RECORDS SUMMARY | 2022-03-08 10:11 | XMS_ITS | Encounter Summary ---
:1955 Author Organization [facility] Address [address] [place] [address] Care Team Providers Name Role Phone Unavailable Primary Care Provider Unavailable Reason for Visit Reason Comments Lung Cancer Outpatient (Routine) - Closed Specialty Diagnoses / Procedures Referred By Contact Refer red To Contact Thoracic Surgery Diagnoses Malignant Neoplasm Of Lung Adenocarcinoma Left (HCC) Laquita Silverio M.D. [address] [phone] Referral ID Status Reason Start Date Expiration Date Visits Requ ested Visits Authorized [id number] Closed 05/07/2018 05/07/2019 1 1 Encounter Details Date Type Department Care Team Description 05/27/2018 Comprehensive Visit Division of Kj Lyn Neoplasm Of Thoracic Surgery Fany Mitchell M.D. Lung Adenocarcinoma in [place], [facility] [address] [facility] (HCC) [place], [place] [address] [facility] [address] [place], [place] [phone] (Work) [phone] Social History Tobacco Use Types Packs/Day Years [...] Sarah Reyes is a 63 y.o. from [place], [place] I saw with Dr. Lyn today. She was referred to us for an evaluation regarding a left lung mass. In summary she is an ex smoker of 25 pack-years who quitall use at the age of 50. 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 Other Jail Current Drug Therapy 05/26/2018 ??? Schizophrenia (HCC) [...] our team to [place] [facility] [place]. In additionshe is scheduled for bronchoscopy with [...]
--- OUTSIDE RECORDS SUMMARY | 2022-03-08 10:11 | XMS_ITS | Encounter Summary ---
:1955 Author Organization [facility] Address [address] [place] [address] Care Team Providers Name Role Phone Unavailable Primary Care Provider Unavailable Encounter Details Date Type Department Care Team Description 05/05/2018 Orders Only Department of Laquita Silverio Malignant N eoplasm Of Oncology in [facility] Lung Adenocarcinoma Left [place], [place] [address] (HCC) (Primary Dx) [address] [place] [phone] Social History Tobacco Use Types Packs/Day Years Used Date Smoking Tobacco: Never Assessed Sex Assigned at Date Recorded Not on file documented as of this encounter Plan of Treatment Not on filedocumented as of this encounter Visit Diagnoses Diagnosis 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
--- OUTSIDE RECORDS SUMMARY | 2022-03-08 10:11 | XMS_ITS | Encounter Summary ---
:1955 Author Organization [facility] Address [address] [place] [address] Care Team Providers Name Role Phone Unavailable Primary Care Provider Unavailable Reason for Referral Outpatient (Routine) - Canceled Specialty Diagnoses / Procedures Referred By Contact Refer red To Contact Diagnoses Malignant Neoplasm Of Lung Adenocarcinoma Left (HCC) Laquita Silverio M.D. 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 [facility] Procedures PET CT Skull to Thigh FDG LA PET/CT TRUNK HC PET/CT TRUNK LA PET/CT TRUNK [address] [place] [address] Referral ID Status Reason Start Date Expiration Date Visits V isits Requested Authorized [id number] Canceled 05/07/2018 05/07/2019 6 6 Encounter Details Date Type Department Care Team Description 05/23/2018 Hospital Encounter Department of Laquita Silverio Neoplasm Of Radiology, Torres Brown M.D. Lung Adenocarcinoma Building, in [address] [place] [address] Left (HCC) [facility] [phone] [phone] [place], [place] (Work) [phone] Social History Tobacco Use Types Packs/Day Years [...] Oc currences starting outpatients) Left ([facility]) 05/23/2018 unti l 05/23/2018 documented as of this encounter Visit Diagnoses Diagnosis 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) documented in this encounter
== END 2022-03-01 08:18 | disposition home or self-care (01) ==
LOC: AMB 03-08 10:06
PROVIDERS: PCP Family Medicine; Visit Provider Emergency Medicine
DX: S89.90XA Unspecified injury of unspecified lower leg, initial encounter (principal); W18.30XA Fall on same level, unspecified, initial encounter; Y92.10 Unspecified residential institution as the place of occurrence of the external cause
CPT/HCPCS: A0425; A0427

== ENCOUNTER 2022-03-01 08:44 | Emergency (ER) | payer MEDICARE, MEDICAID, SELFPAY ==
[2022-03-01] VITALS (7 sets, daily range): BP systolic 142–153; BP diastolic 80–91; PULSE 100–106; RESP 18; TEMP 35.8; O2SAT 94–96
--- NOTE | 2022-03-01 09:58 | CRLHL7_ITS ---
For Patients: As a result of the Century Cures Act, medical imaging exams and procedure reports are released immediately into your electronic medical record. You may view this report before your referring provider. If you have questions, please contact your health care provider. Indication: Injury and pain Technique: Right elbow 3 views Comparison: None Findings: Bones: Alignment is normal. No fractures or bone lesions. Joint spaces: Unremarkable. No sign of joint effusion. Soft tissues: Unremarkable. Impression: No sign of acute injury. Dictated by Keaton Montoya MD @ 03/01/2022 11:04:11 AM (Electronically Signed)
--- NOTE | 2022-03-01 10:00 | PC.NURSE ---
pt up to commode with sba, pt did transfer self with walker which she uses at home
--- OUTSIDE RECORDS SUMMARY | 2022-03-01 10:14 | XMS_ITS | Clinical Summary ---
:1955 Author Organization [facility] [place] [address] Care Team Providers Name Role Phone Yecenia Thrasher MD Primary Care Provider [phone] Allergies No known active allergies Medications Medication Sig Dispensed Refills Start End Status Date Date fluticasone Inhale 1 Puff 1 Inhaler 11 Acti ve propion-salmeteroL by mouth 2 1 (Advair Diskus) times daily. 250-50 mcg/Dose diskus inhalerIndications: bronchospasm prevention with COPD mirabegron Take 1 Tablet 90 tablet. 3 Acti ve EXTENDED-release (50 mg) by 1 (Myrbetriq) 50 mg mouth once tabletIndications: daily. Take bladder with water. hyperactivity Swallow tablet whole. metFORMIN Take 1 Tablet 90 tablet. 3 Activ e (GLUCOPHAGE) 500 mg (500 mg) by 1 tabletIndications: mouth once type 2 diabetes daily with a mellitus meal. dilTIAZem CD (Cartia Take 1 Capsule 90 capsule. 3 Active XT) 120 mg extended (120 mg) by 1 release 24 hr mouth once capsuleIndications: daily. paroxysmal supraventricular tachycardia citalopram (CELEXA) TAKE ONE 30 Tablet 5 Active 20 mg TABLET BY 1 tabletIndications: MOUTH IN THE anxiety with MORNING depression BiPapIndications: bPAP machine 1 Each Active KEVIN (obstructive for home use 1 sleep apnea) at pressure:Max 20 Min12 Max PS8 Min PS 4 , Heated humidifier x 1 q 5 yr, Humidifier chamber x 1 q 6 mo, Full face mask x1 q 3mos, with cushion x 1 q mo, Heated tubing x 1 q 3 mo, Headgear x 1 q 6 mo, Filters: Disposable x 2 q mo non-disposable filters x1 q 6mo, Length of Need: 99 months, Frequency of use: Daily ARIPiprazole Take 20 mg by 0 Act armida (ABILIFY) 20 mg mouth at 1 tabletIndications: bedtime. schizophrenia polyethylene glycoL Mix 1 scoop 1700 g 0 Active (MIRALAX) 17 (17 g) in 2 gram/dose liquid then powderIndications: take by mouth constipation once daily. MULTIVITAMIN Take 1 Tablet 0 Act armida ORALIndications: by mouth once vitamin deficiency daily. pantoprazole Take 40 mg by 0 Act armida (PROTONIX) 40 mg mouth once delayed-release daily. tabletIndications: gastroesophageal reflux disease prazosin (MINIPRESS) Take 1 mg by 0 Active 1 mg mouth at capsuleIndications: bedtime. hypertension cholecalciferol Take 5,000 0 Act armida (VITAMIN D3) 5,000 units by mouth unit once daily. 40 capsuleIndications: units = 1 mcg vitamin D deficiency (5000 units = 125 mcg) albuterol HFA Inhale 2 Puffs 0 A ctive (PRO-AIR; VENTOLIN; by mouth 4 PROVENTIL) 90 times daily if mcg/actuation needed for inhaler Shortness of Breath 1st choice. docusate (COLACE) Take 1 Capsule 30 Capsule 0 Active 100 mg (100 mg) by 2 capsuleIndications: mouth once constipation daily. ferrous sulfate, 65 Take 1 Tablet 30 Tablet 0 Active mg elemental, (325 mg) by 2 tabletIndications: mouth once iron deficiency daily with a anemia meal. sennosides (SENNA) Take 1 Tablet 30 Tablet 0 Active 8.6 mg (8.6 mg) by 2 tabletIndications: mouth once constipation daily. traZODone (DESYREL) Take 1 Tablet 30 Tablet 0 Active 50 mg (50 mg) by 2 tabletIndications: mouth at insomnia associated bedtime if with depression needed, may repeat once for Sleep. LORazepam (ATIVAN) Take 1 Tablet 30 Tablet 0 Active 0.5 mg (0.5 mg) by 2 tabIndications: mouth 3 times Disorganized daily. schizophrenia (HC) atorvastatin Take 1 Tablet 0 Act armida (LIPITOR) 20 mg (20 mg) by 2 tablet mouth at bedtime. haloperidoL (HALDOL) Take 1 Tablet 0 Active 5 mg tablet (5 mg) by 2 mouth three times daily. lisinopriL Take 1 Tablet 0 Activ e (PRINIVIL; ZESTRIL) (2.5 mg) by 2 2.5 mg tablet mouth once daily. metoprolol succinate Take 1 Tablet 0 Active (TOPROL XL) 25 mg (25 mg) by 2 Sustained-Release mouth once tablet daily. oxybutynin (DITROPAN Take 1 Tablet 0 Active XL) 15 mg CR tablet (15 mg) by 2 mouth once daily. zolpidem (AMBIEN) 5 Take 1 Tablet 0 Active mg tablet (5 mg) by 2 mouth at bedtime if needed for Sleep. milk of magnesia Take 15-30 mL 473 mL 0 Active (Milk of Magnesia) by mouth at 2 400 mg/5 mL bedtime if suspension needed for Constipation. cloZAPine (CLOZARIL) Take 2 Tablets (100 mg) by mouth at bed time. Lab Results 30 Tablet 0 Discontinued 50 mg Component Value Date 2 022 (*Med tabletIndications: WBC 3.6 (L) 06/26/2021 complete/Regime Disorganized Lab Results n schizophrenia (HC) Component Value Date complete/Level ABSNEUTS 2.1 06/26/2021 of care change) Active Problems Problem Noted Date COVID-19 virus infection 06/30/2021 Schizophrenia 06/30/2021 DM2 (diabetes mellitus, type 2) 06/30/2021 Normocytic anemia 06/30/2021 Bilateral lower extremity edema 06/23/2021 Generalized muscle weakness 06/18/2021 Vitamin D deficiency 06/18/2021 history of small bowel obstruction 05/19/2021 Symptomatic anemia 05/19/2021 DUB (dysfunctional uterine bleeding) 05/19/2021 Intestinal obstruction 2021 Morbid obesity 2021 Polyneuropathy due to type 2 diabetes mellitus 021 Controlled substance agreement signed 02/20/2021 Overview: 12/26/20 Minna Deleon MD/psychiatry 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 05/26/2018 Chronic schizophrenia 05/15/2018 KEVIN 03/13/2018 AHI-16 05/15/2018 Adenocarcinoma of lung 05/05/2018 Nonrheumatic mitral valve insufficiency 08/27/2017 Localized edema 09/27/2016 Metabolic syndrome 06/12/2016 Mild intermittent asthma 08/11/2015 Obesity with body mass index 30 or greater 12/26/2014 Asthma Encounters Date Type Specialty Care Team Description 02/26/2022 Orders Only Lab, [place] Outside Order ( [facility]/ Meet) 02/26/2022 Travel 02/22/2022 Office Visit Yecenia Thrasher Follow Up; Throat Problem MD Alycia (EGD showed imp aired swallowing); Bl ood Pressure; URI (Cough and congestion) 02/22/2022 Orders Only Yecenia Thrasher Outside Ord er (Ordered by MD Piper Whittaker) 02/22/2022 Travel 12/07/2021 Telephone Yecenia Thrasher Form MD [facility] from Last 3 Months Immunizations Name Administration Dates Next Due COVID-19 vaccine (Pfizer-BioNTech 30mcg/0.3mL) 12YO+ 022 BIVALENT BOOSTER PF, MDV COVID-19 vaccine (Pfizer-BioNTech 30mcg/0.3mL) PF, 1, 07/08/2020 MDV Influenza RIV4 (Age 18+ Years) PRESERV FREE 07/08/2019 Influenza, Inactivated AIIV4 (Age 65+ Years) Preserv 022, 04/07/2021 Free Pneumococcal Poly,23-Valent (Pneumovax) 11/04/2020 Family History Medical History Relation Name Comments Alcoholism Father Diabetes Father Endometriosis Half-Sister Alcoholism Mother Depression Mother Other Sister hysterectomy Relation Name Status Comments Father Half-Sister Alive Mother Sister Alive Social History Tobacco Use Types Packs/Day Years Used Date Former Smoker Cigarettes Quit: 2004 Smokeless Tobacco: Never Used Tobacco Cessation: Counseling Given: Yes Alcohol Use Standard Drinks/Week Comments No 0 (1 standard drink = 0.6 oz pure alcoho l) Sex Assigned at Date Recorded Not on file COVID-19 Exposure Response Date Recorded In the last 10 days, have you been in contact with No / Unsu re 02/26/2022 2:03 PM CDT someone who was confirmed or suspected to have Coronavirus/COVID-19? Obstetrics History Para Term AB IAB SAB Ectopic Multiple Living Live Births 3 1 1 2 1 1 Date Outcome GA Total Labor/2nd/3rd Weight Sex Delivery Anes PTL Domenica A 1 A5 Name Clin Labor AB AB 1984 Term Vag Luana ng Last Filed Vital Signs Vital Sign Reading Time Taken Comments Blood Pressure 129/80 02/22/2022 8:43 AM CDT Pulse 78 02/22/2022 8:43 AM CDT Temperature 36.9 ??C (98.4 ??F) 07/11/2021 8:00 AM CDT Respiratory Rate 16 07/11/2021 8:00 AM CDT Oxygen Saturation 98% 02/22/2022 8:43 AM CDT Inhaled Oxygen Concentration - - Weight 92.5 kg (204 lb) 02/22/2022 8:43 AM CDT Height 160 cm (5' 3) 06/17/2021 3:10 PM GEM EXPERT Body Mass Index 36.14 06/17/2021 3:10 PM GEM EXPERT Plan of Treatment Upcoming Encounters Date Type Specialty Care Team Description 05/01/2022 Office Visit Yecenia Thrasher MD [address] [place], [place] [address] (Wo rk) Health Maintenance Due Date Last Done Comments Tdap 1966 Tetanus booster 1975 Colonoscopy through age 75 2000 Zoster (shingles) series for age 1204/24/2005 50+ (1 of 2) DEXA/DXA scan for age 65+ 2020 BMI (ht and wt on same day) for 11/04/2021 11/04/2020, 0711/2019, age 18+ 10/21/2019, Additional history exists Medicare Wellness for age 65+ 11/04/2021 11/04/2020, 2018 Pneumococcal series for age 65+ (2 11/04/2021 11/04/2020 - PCV) Mammogram for age 45-75 04/07/2022 04/07/2021, 01/19/2020 Depression screening for age 12+ 06/21/2022 06/21/2021, , 06/18/2021, Additional history exists Lipids for age 45-75 06/18/2026 06/18/2021, 06/16/2021, 11/04/2020, Additional history exists Hepatitis C screening for age Completed 05/30/2021 18-79 COVID-19 vaccine series Completed 02/22/2022, 02/16/2021, 07/29/2020, Additional history exists Influenza for age 65+ Completed 02/22/2022, 04/07/2021, 07/08/2019 Procedures Procedure Name Priority Date/Time Associated Diagnosis Comme nts CBC WITH AUTO Routine 02/26/2022 2:10 Paranoid Results for this DIFFERENTIAL PM CDT schizophrenia, procedure are in subchronic condition the res ults (HC) section. CBC WITH AUTO Routine 02/26/2022 2:10 Paranoid Results for this DIFFERENTIAL PM CDT schizophrenia, procedure are in subchronic condition the res ults (HC) section. CBC WITH AUTO Routine 02/22/2022 11:34 Chronic schizophrenia R esults for this DIFFERENTIAL AM CDT (HC) procedure are i n the results section. COMP METABOLIC PANEL Routine 02/22/2022 11:34 Chronic schizoph hardy Results for this AM CDT (HC) procedure are i n the results section. HEMOGLOBIN A1C Routine 02/22/2022 11:34 Prediabetes Results f or this SCREENING AM CDT procedure are i n the results section. CBC WITH AUTO Routine 02/22/2022 11:34 Chronic schizophrenia R esults for this DIFFERENTIAL AM CDT (HC) procedure are i n the results section. from Last 3 Months Results (ABNORMAL) CBC WITH AUTO DIFFERENTIAL (02/26/2022 2:10 PM CDT)Only the most recent of2 resultswithin the time period is included. [facility] gist Method Time Signature WHITE BLOOD 5.5 4.5 - 02/26/2022 [facility] COUNT 11.0 2:17 PM CDT [facility]/ CLINIC mm RED BLOOD COUNT 3.96 (L) 4.00 - 02/26/2022 [facility] 5.20 2:17 PM CDT [place] mil/cu mm CLINIC HEMOGLOBIN 11.3 (L) 12.0 - 02/26/2022 [facility] 16.0 g/dL 2:17 PM CDT [place] [facility] HEMATOCRIT 35.4 33.0 - 02/26/2022 [facility] 51.0 % 2:[address] [facility] MCV 89 80 - 100 02/26/2022 [facility]:[address] [facility] MCH 28.5 26.0 - 02/26/2022 [email or web address] 34.0 pg 2:[address] [facility] MCHC 31.9 (L) 32.0 - 02/26/2022 [facility] 36.0 g/dL 2:[address] [facility] RDW 14.2 11.5 - 02/26/2022 [facility] 15.5 % 2:[address] [facility] PLATELET COUNT 195 140 - 440 02/26/2022 [facility] thou/cu 2:17 PM CDT [facility] CLINIC MPV 10.9 6.5 - 02/26/2022 [facility] 11.0 fL 2:17 PM CDT [place] [facility] % NEUT 63.3 % 02/26/2022 [facility] 2:17 PM CDT [place] [facility] % LYMPH 29.0 % 02/26/2022 [email or web address] 2:17 PM CDT [place] [facility] % MONO 7.3 % 02/26/2022 [facility] 2:[address] [facility] % EOS 0.2 % 02/26/2022 [facility] 2:17 PM CDT [place] [facility] % BASO 0.2 % 02/26/2022 [facility] 2:17 PM CDT [place] [facility] ABSOLUTE 3.5 1.7 - 7.0 02/26/2022 [facility] NEUTROPHILS thou/cu 2:17 PM CDT [place] mm CLINIC ABSOLUTE 1.6 0.9 - 2.9 02/26/2022 [facility] LYMPHOCYTES thou/cu 2:17 PM CDT [facility] CLINIC ABSOLUTE 0.4 <0.9 02/26/2022 [facility] MONOCYTES thou/cu 2:17 PM CDT [place] mm CLINIC ABSOLUTE 0.0 <0.5 02/26/2022 [facility] EOSINOPHILS thou/cu 2:17 PM CDT [facility] ABSOLUTE 0.0 <0.3 02/26/2022 [facility] thou/cu 2:17 PM CDT [facility] Specimen Anatomical Collection Method / Collection Time Recei junie Time (Source) Location / Volume Laterality Blood BLOOD SPECIMEN / Venipuncture / 02/26/2022 2:10 2021 2:14 Unknown Unknown PM CDT PM CDT Narrative [facility] - 2021 2:17 PM CDT Notice: This testing was ordered by an outside provider. The provider who placed this order has revie wed and approved it for completion by [facility] lab, but is not involved in this patient's care related to the ordering of this lab. The lab will provide the testing results for Monthly CDF, to the outside provider, Dr. Piper Carlson at fax number [phone] \T\ Meet at fax number [phone], for that provider to inform and arrange appropriate follow up with the patient. Yecenia Thrasher MD HEMATOLOGY Performing Organization Address City/State/ZIP Code Phon e Number [facility] [address] [place] [address] HEMOGLOBIN A1C SCREENING (02/22/2022 11:34 AM CDT) P athologist Signature HEMOGLOBIN A1C 5.8 <=6.4 % 02/23/2022 [facility] SCREENING 8:04 AM CDT LABORATORY-[facility] Specimen Anatomical Collection Method / Collection Time Recei junie Time (Source) Location / Volume Laterality Blood BLOOD SPECIMEN / Venipuncture / 02/22/2022 11:34 02/22 Unknown Unknown AM CDT 11:36 AM CDT Narrative [facility] - 02/23/2022 8:04 AM CDT ? (<5.7%) ?Normal ? (5.7% to 6.4%) ? Indicates pr ediabetes ? (>=6.5%) ? Confirms diabetes Falsely low levels may be seen with: Recent Transfusion, Recent Significant B lood Loss, Hemolytic Diseases, or Falsely elevated levels may be seen with : Untreated Anemias, Splenectomy Yecenia Thrasher MD CHEMISTRY Performing Organization Address City/State/ZIP Code Phon e Number [facility] [address] [place] [address] LABORATORY-CENTRAL 2000 LABORATORY (ABNORMAL) COMP METABOLIC PANEL (02/22/2022 11:34 AM CDT) [facility] Method Time Signature SODIUM 140 135 - 145 02/24/2022 [facility] mmol/L 6:21 PM CDT [facility] [facility] POTASSIUM 4.3 3.5 - 5.0 02/24/2022 [facility] mmol/L 6:21 PM CDT [facility] [facility] CHLORIDE 105 98 - 110 02/24/2022 [facility] mmol/L 6:21 PM CDT [facility] [facility] CO2,TOTAL 24 21 - 31 02/24/2022 [facility] mmol/L 6:21 PM CDT [facility] [facility] ANION GAP 11 5 - 18 02/24/2022 [facility] 6:21 PM CDT [facility] [facility] GLUCOSE 188 (H) 65 - 100 02/24/2022 [facility] mg/dL 6:21 PM CDT [facility] [facility] CALCIUM 9.4 8.5 - 10.5 02/24/2022 [facility] mg/dL 6:21 PM CDT [facility] [facility] BUN 9 8 - 25 02/24/2022 [facility] mg/dL 6:21 PM CDT [facility] [facility] CREATININE 0.76 0.57 - 02/24/2022 [facility] 1.11 mg/dL 6:21 PM CDT [facility] [facility] BUN/CREAT RATIO 12 10 - 20 02/24/2022 [facility] 6:21 PM CDT [facility] [facility] ALBUMIN 4.2 3.2 - 4.6 02/24/2022 [facility] g/dL 6:21 PM CDT [facility] [facility] PROTEIN,TOTAL 7.1 6.0 - 8.0 02/24/2022 [facility] g/dL 6:21 PM CDT [facility] [facility] GLOBULIN 2.9 2.0 - 3.7 02/24/2022 [facility] g/dL 6:21 PM CDT [facility] [facility] A/G RATIO 1.4 1.0 - 2.0 02/24/2022 [facility] 6:21 PM CDT [facility] [facility] BILIRUBIN,TOTAL 0.4 0.2 - 1.2 02/24/2022 [facility] mg/dL 6:21 PM CDT [facility] [facility] ALK PHOSPHATASE 115 50 - 136 02/24/2022 [facility] IU/L 6:21 PM CDT [facility] ALT (SGPT) 29 8 - 45 02/24/2022 [facility] IU/L 6:21 PM CDT [facility] AST (SGOT) 21 2 - 40 02/24/2022 [facility] IU/L 6:21 PM CDT [facility] [facility] eGFR 87 (L) >90 02/24/2022 [facility] mL/min/1.7 6:21 PM CDT [facility] 3m2 TRAL LABORATORY Comment: As of 2021, eGFR is calcu lated by the CKD-EPI creatinine equation without race adjustment. eGFR can be inf luenced by muscle mass, exercise, and diet. The reported eGFR is an estimation only and is only applicable if the renal function is stable. Specimen Anatomical Collection Method / Collection Time Recei junie Time (Source) Location / Volume Laterality Blood BLOOD SPECIMEN / Venipuncture / 02/22/2022 11:34 02/22 Unknown Unknown AM CDT 11:36 AM CDT Yecenia Thrasher MD CHEMISTRY Performing Organization Address City/State/ZIP Code Phon e Number [facility] [address] [place] [address] LABORATORY-CENTRAL 2000 LABORATORY from Last 3 Months Insurance Payer Benefit Plan / Subscriber ID Effective Dates Phone Addre ss Type Group MEDICARE PART B MEDICARE PART B [id number] 1980-Present ATTN: CLAIMS - HB USE ONLY HB ONLY [address] [place] [address] MEDICARE PART A MEDICARE PART A [id number] 1980-Present ATTN: CLAIMS - HB USE ONLY HB ONLY [address] [place] [phone] MEDICARE - PB MEDICARE PB [id number] 2006-Presen ATT N: CLAIMS USE ONLY ONLY t [address] [place] [address] MEDICAID [place] MEDICA[place] [id number] 2018-Present [address] [address] [place] [address] Advance Directives Documents on File Type Date Recorded 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 05/24/2021 05/24/2021 Latest Code Status on File Code Status Date Activated Date Inactivated Comments Full Code 06/30/2021 5:52 PM 07/11/2021 11:36 AM Code Status Discussion: Reviewed Preferences Full Code 06/18/2021 10:04 AM 06/30/2021 5:31 PM Code Status Discussion: Reviewed Preferences Full Code 06/17/2021 3:24 PM 06/18/2021 10:04 AM Code Status Discussion: Unable to Assess Preferences, Provid er to review later Full Code 06/17/2021 3:15 PM 06/17/2021 3:24 PM Code Status Discussion: Reviewed Preferences Full Code 05/20/2021 8:29 AM 05/25/2021 5:47 PM Code Status Discussion: Reviewed Preferences Care Teams 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
--- OUTSIDE RECORDS SUMMARY | 2022-03-01 10:14 | XMS_ITS | Clinical Summary ---
:1955 Author Organization [facility] Address [address] [place] [address] Care Team Providers Name Role Phone Unavailable Primary Care Provider Unavailable Source Comments Patient records contain information from all sites at [facility]. For routine questions regarding patient records, call [phone] during business hours, M-F 8:00 AM - 5:00 PM Central Time. Record requests for emergency care only can be directed to [phone] at any time.[facility] Allergies No known active allergies Medications Medication Sig Dispensed Refills Start Date End Date Status acetaminophen Take 500 mg by 0 08/16/2016 Active (TYLENOL) 500 mg mouth every 6 tablet (six) hours as needed for pain. albuterol (PROVENTIL Inhale 2 puffs 0 04/23/2018 Active HFA,VENTOLIN HFA) 90 every 4 (four) mcg/actuation inhaler hours as needed for wheezing or shortness of breath. ipratropium-albuterol Inhale 3 mL 4 0 04/23/2018 Active (DUO-NEB) 0.5-2.5 mg/3 (four) times a day mL nebulizer solution as needed for wheezing or shortness of breath. citalopram (CeleXA) 20 Take 20 mg by 0 05/26/2018 Active mg tablet mouth daily. dilTIAZem LA (CARDIZEM Take 120 mg by 0 04/23/2018 Active LA) 120 mg 24 hr mouth at bedtime. tablet fluticasone (FLONASE) Administer 2 5 05/11/2018 Active 50 mcg/actuation nasal sprays into each spray nostril at bedtime. MYRBETRIQ 50 mg 24 hr Take 50 mg by 4 05/24/2018 Active tablet mouth at bedtime. montelukast Take 10 mg by 0 04/23/2018 Act armida (SINGULAIR) 10 mg mouth at bedtime. tablet omeprazole (PriLOSEC) Take 20 mg by 1 05/24/[address] capsule mouth every morning before breakfast. vitamin E 400 unit Take 400 Units by 0 08/16/2016 Active capsule mouth daily. metFORMIN (GLUCOPHAGE) Take 500 mg by 0 Active 500 mg tablet mouth at bedtime. zolpidem (AMBIEN) 5 mg Take 5 mg by mouth 0 Active tablet at bedtime as needed for sleep. ADVAIR DISKUS 250-50 Inhale 1 puff 2 3 06/12/2018 Active mcg/act diskus inhaler (two) times a day. psyllium (METAMUCIL) Daily 0 Active 0.52 gram capsule polyethylene Drink 1st portion 4000 mL 0 04/27/2021 Active glycol-electrolytes of prep at 6 PM (GoLYTELY) the evening 236-22.74-6.74 -5.86 before. 2nd gram solution portion must be started 3 hours before and finished 2 hours prior to report time ARIPiprazole (ABILIFY) Take 1 tablet (20 30 tablet 0 2 Active 20 mg tablet mg total) by mouth every morning. Active Problems Problem Noted Date Obstruction Intestinal 2021 Diabetes Mellitus Type 2 With Diabetic Polyneuropathy 2021 Morbid Obesity Body Mass Index >= 35 with Comorbid Con dition 2021 Nodule Pulmonary 08/07/2018 Mass Lung 08/07/2018 [address] Jail Current Drug Therapy 05/26/2018 Apnea Sleep Obstructive 05/15/2018 Malignant Neoplasm Of Lung Adenocarcinoma Left 019 Schizophrenia 05/05/2018 Diabetes Mellitus Type 2 05/05/2018 Nonrheumatic Mitral Valve Insufficiency 08/27/2017 Edema Localized 09/27/2016 Metabolic Syndrome 06/12/2016 Asthma Mild Intermittent 08/11/2015 Obesity Body Mass Index 30-39.9 Adult 12/26/2014 Social History Tobacco Use Types Packs/Day Years Used Date Smoking Tobacco: Former Cigarettes 1 25 Quit : 2004 Smokeless Tobacco: Never Tobacco Cessation: Counseling Given: No Alcohol Use Standard Drinks/Week Comments No 0 (1 standard drink = 0.6 oz pure alcoho l) Sex Assigned at Date Recorded Not on file Last Filed Vital Signs Vital Sign Reading Time Taken Comments Blood Pressure 138/73 05/05/2021 2:01 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 Pulse 101 05/05/2021 2:11 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 Temperature 36.9 ??C (98.4 ??F) 05/05/2021 1:51 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 Respiratory Rate 16 05/05/2021 2:11 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 Oxygen Saturation 96% 05/05/2021 2:11 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 Inhaled Oxygen Concentration - - Weight 99.1 kg (218 lb 7.6 oz) 04/26/2021 11:31 AM 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 Height 160 cm (5' 3) 2021 12:15 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 Body Mass Index 38.7 2021 12:15 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 Plan of Treatment Health Maintenance Due Date Last Done Comments Bone Density Scan (Osteoporosis 1955 Screen) CT Colonography 1955 Cologuard 1955 Diabetic Office Visit with Foot 1955 Exam Dilated Eye Exam 1955 FIT 1955 Hemoglobin A1C 1955 Hepatitis C Screening 1955 Mammogram 1955 Office Visit for Blood Pressure 1955 Check / Re-check Urine Albumin 1955 DTaP,Tdap,and Td Vaccines (1 - 1974 Tdap) Zoster Vaccines (1 of 2) 2005 Hepatitis B Vaccines (1 of 3 - 2015 Risk 3-dose series) COVID-19 Vaccine (4 - Booster for 04/13/2021 02/16/2021, , Pfizer series) 07/08/2020 Depression Screening (Annual 04/29/2021 PHQ-2) Pneumococcal vaccine (65+ years) 11/04/2021 11/04/2020, 08/2014 (2 - PCV) Influenza Vaccine (#1) 2022 04/07/2021, 07/08/2019, 01/30/2018, Additional history exists Lipid (Cholesterol) Screening 06/18/2022 06/18/2021, 2021, 11/04/2020, Additional history exists Creatinine Level 07/10/2022 07/10/2021, 07/06/2021, 06/30/2021, Additional history exists Colonoscopy 05/05/2031 05/05/2021, 05/05/2021 Colorectal Cancer Screening 05/05/2031 Cervical Cancer Screening Discontinued 01/10/2021 Fall Risk Screen (Annual) Completed 05/05/2021 Glucose Test for Med Monitoring Discontinued 07/10/2021, 06/27, 07/10/2021, Additional history exists Insurance Payer Benefit Plan Subscriber ID Effective Phone Address Typ e / Group Dates MEDICARE MEDICARE A [id number] 1980-Prese [address] [place] [address] [facility] MEDICAID [id number] 2018-Prese [phone] [place] nt [id number] [employer] [address] [address] [place] [address] Advance Directives For more information, please contact: [phone] Latest Code Status on File Code Status Date Activated Date Inactivated Comments Full Code 2021 2:59 PM 04/28/2021 7:13 PM Question Answer Comments Full Code: Discussed Code Status History Code Status Date Activated Date Inactivated Comments Full Code 08/07/2018 4:15 PM 08/11/2018 6:54 PM Question Answer Comments Full Code: Not Discussed Due to: Patient not available Assumed given rece nt surgical procedure Full Code 08/07/2018 4:15 PM 08/07/2018 4:15 PM Question Answer Comments Full Code: Not Discussed Due to: Patient not available
--- OUTSIDE RECORDS SUMMARY | 2022-03-01 10:14 | XMS_ITS | Encounter Summary ---
:1955 Author Organization [facility] Address [address] [place] [address] Care Team Providers Name Role Phone Unavailable Primary Care Provider Unavailable Encounter Details Date Type Department Care Team Description 05/05/2021 Ancillary Procedure Department of Gastroenterology Social History Tobacco Use Types Packs/Day Years Used Date Smoking Tobacco: Former Cigarettes 1 Quit : 2004 Smokeless Tobacco: Never Alcohol Use Standard Drinks/Week Comments No 0 (1 standard drink = 0.6 oz pure alcoho l) Sex Assigned at Date Recorded Not on file documented as of this encounter Plan of Treatment Not on filedocumented as of this encounter Procedures Procedure Name Priority Date/Time Associated Comments Diagnosis GASTROENTEROLOGY IMAGE Routine 05/05/2021 12:50 R esults for this EXAM PM DINING ROOM CAPTAIN procedure are i n the results section. documented in this encounter Results Colonoscopy-Gastroenterology Image Exam (05/05/2021 12:50 PM DINING ROOM CAPTAIN) Specimen (Source) Anatomical Collection Method Collection Time Re ceived Time Location / / Volume Laterality 05/05/2021 12:49 PM DINING ROOM CAPTAIN Narrative [facility] - 05/05/2021 1:58 PM DINING ROOM CAPTAIN This order has been created and auto-finalized to support the import of images acquired without order. The clini wander documentation to support these images can be found on the encounter marino t produced images. Provider Not In System IMG NON RAD IMAGING PROCEDUR ES Performing Organization Address City/State/ZIP Code Phon e Number [facility] NA documented in this encounter Visit Diagnoses Not on filedocumented in this encounter
--- OUTSIDE RECORDS SUMMARY | 2022-03-01 10:14 | XMS_ITS | Encounter Summary ---
:1955 Author Organization [facility] Address [address] [place] [address] Care Team Providers Name Role Phone Unavailable Primary Care Provider Unavailable Encounter Details Date Type Department Care Team Description 05/01/2021 Orders Only Division of Trauma Yarbrough, Adriana L, Obstruc tion Intestinal Critical Care and P.A.-C. (HCC) (Primary Dx) General Surgery in [address] [place], [place] [address] [place] [id number] [place], [place] [phone] (Work) [phone] Social History Tobacco Use Types Packs/Day Years Used Date Smoking Tobacco: Former Cigarettes 05 23 Quit : 2004 Smokeless Tobacco: Never Alcohol Use Standard Drinks/Week Comments No 0 (1 standard drink = 0.6 oz pure alcoho l) Sex Assigned at Date Recorded Not on file documented as of this encounter Plan of Treatment Not on filedocumented as of this encounter Visit Diagnoses Diagnosis Obstruction Intestinal (HCC) - Primary documented in this encounter
--- OUTSIDE RECORDS SUMMARY | 2022-03-01 10:14 | XMS_ITS | Encounter Summary ---
:1955 Author Organization [facility] Address [address] [place] [address] Care Team Providers Name Role Phone Unavailable Primary Care Provider Unavailable Reason for Referral Outpatient (Routine) - Closed Specialty Diagnoses / Procedures Referred By Contact Refer red To Contact Diagnoses Bleeding Rectal Narciso Gama M[facility] Procedures Colonoscopy Referral ID Status Reason Start Date Expiration Date Visits Requ ested Visits Authorized [id number] Closed 04/27/2021 04/27/2022 1 1 RINTENDENT TERMINAL Reason for Visit Outpatient (Routine) - Closed Specialty Diagnoses / Procedures Referred By Contact Refer red To Contact Diagnoses Bleeding Rectal Narciso Gama M.B.B.S[facility] Procedures Colonoscopy Referral ID Status Reason Start Date Expiration Date Visits Requ ested Visits Authorized [id number] Closed 04/27/2021 04/27/2022 1 1 Encounter Details Date Type Department Care Team Description 05/05/2021 Hospital Encounter Division of Narciso Gama M.BElviB. SEl[facility] Bleeding Rectal Gastroenterology in [place], RN [facility], [employer], [employer] [address] [place] [address] [place], [place] [address] [place] [address] Social History Tobacco Use Types Packs/Day Years Used Date Smoking Tobacco: Former Cigarettes 05 23 Quit : 2004 Smokeless Tobacco: Never Alcohol Use Standard Drinks/Week Comments No 0 (1 standard drink = 0.6 oz pure alcoho l) Sex Assigned at Date Recorded Not on file documented as of this encounter Last Filed Vital Signs Vital Sign Reading Time Taken Comments Blood Pressure 138/73 05/05/2021 2:01 PM SUPERINTENDENT TERMINAL Pulse 101 05/05/2021 2:11 PM SUPERINTENDENT TERMINAL Temperature 36.9 ??C (98.4 ??F) 05/05/2021 1:51 PM SUPERINTENDENT TERMINAL Respiratory Rate 16 05/05/2021 2:11 PM SUPERINTENDENT TERMINAL Oxygen Saturation 96% 05/05/2021 2:11 PM SUPERINTENDENT TERMINAL Inhaled Oxygen Concentration - - Weight - - Height - - Body Mass Index - - documented in this encounter Medications at Time of Discharge Medication Sig Dispensed Refills Start Date End Date acetaminophen (TYLENOL) Take 500 mg by mouth 0 500 mg tablet every 6 (six) hours as needed for pain. ADVAIR DISKUS 250-50 Inhale 1 puff 2 (two) 3 05/30 mcg/act diskus inhaler times a day. albuterol (PROVENTIL Inhale 2 puffs every 4 0 HFA,VENTOLIN HFA) 90 (four) hours as needed mcg/actuation inhaler for wheezing or shortness of breath. ARIPiprazole (ABILIFY) 20 Take 1 tablet (20 mg 30 tablet 0 04/29/2021 mg tablet total) by mouth every morning. citalopram (CeleXA) 20 mg Take 20 mg by mouth 0 0 05/26/2018 tablet daily. dilTIAZem LA (CARDIZEM Take 120 mg by mouth 0 LA) 120 mg 24 hr tablet at bedtime. fluticasone (FLONASE) 50 Administer 2 sprays 5 mcg/actuation nasal spray into each nostril at bedtime. ipratropium-albuterol Inhale 3 mL 4 (four) 0 03/30 (DUO-NEB) 0.5-2.5 mg/3 mL times a day as needed nebulizer solution for wheezing or shortness of breath. metFORMIN (GLUCOPHAGE) Take 500 mg by mouth 0 500 mg tablet at bedtime. montelukast (SINGULAIR) Take 10 mg by mouth at 0 04/23/2018 10 mg tablet bedtime. MYRBETRIQ 50 mg 24 hr Take 50 mg by mouth at 4 tablet bedtime. omeprazole (PriLOSEC) 20 Take 20 mg by mouth [address] capsule every morning before breakfast. polyethylene Drink 1st portion of 4000 mL 0 04/27/2021 glycol-electrolytes prep at 6 PM the (GoLYTELY) 236-22.74-6.74 evening before. 2nd -5.86 gram solution portion must be started 3 hours before and finished 2 hours prior to report time psyllium (METAMUCIL) 0.52 Daily 0 gram capsule vitamin E 400 unit Take 400 Units by 0 08/16/2016 capsule mouth daily. zolpidem (AMBIEN) 5 mg Take 5 mg by mouth at 0 tablet bedtime as needed for sleep. documented as of this encounter Plan of Treatment Not on filedocumented as of this encounter Procedures Procedure Name Priority Date/Time Associated Diagnosis Comme nts COLONOSCOPY Routine 05/05/2021 12:49 PM Bleeding Rectal Resul ts for this SUPERINTENDENT TERMINAL procedure are i n the results section . COLONOSCOPY Routine 05/05/2021 12:49 PM Bleeding Rectal SUPERINTENDENT TERMINAL documented in this encounter Results Colonoscopy (05/05/2021 12:49 PM SUPERINTENDENT TERMINAL) Specimen (Source) Anatomical Collection Method Collection Time Re ceived Time Location / / Volume Laterality 05/05/2021 12:49 PM SUPERINTENDENT TERMINAL Impressions [facility] [place] - 05/05/2021 1:53 PM SUPERINTENDENT TERMINAL Post-op Diagnoses: ? - Unremarkable colonic mucosa. ? - Non-bleeding internal hemorrhoi ds. No fresh or altered heme noted. ? - The distal rectum and anal verg e are normal on retroflexion view. ? - No specimens collected. Narrative [facility] [place] - 05/05/2021 1:53 PM SUPERINTENDENT TERMINAL [facility] 2 GI Patient Name: Sarah Reyes Date of : 1955 Age: 66 Gender: Female Procedure Date: 05/05/2021 Procedure: ? Colonosc opy Providers: ? Joleen Chacon MD Referring Provider: ?Narciso Cosby ed Pre-op Diagnoses: ?Hematochezi a Recommendation: ? - Return to referring physician a s previously scheduled. Findings: ? The digital rectal exam was jose luis l. ? Non-bleeding internal hemorrhoids were found during retroflexion. The ? hemorrhoids were medium-sized. ? There is no endoscopic evidence o f bleeding, diverticula, inflammation, ? polyps, stenosis, stricture or ul cerations in the entire colon. ? The retroflexed view of the dista l rectum and anal verge was normal and ? showed no anal or rectal abnormal ities. Procedural Details: ? The patient was seen, evaluated, history reviewed, airway and heart-lung ? exams were performed by licensed provider and were satisfactory for ? planned level of sedation care. ? The risks, benefits and alternati ves for the procedure and sedation were ? discussed and informed consent wa s obtained. A procedural pause was ? conducted in the presence of assi sting personnel to verify the correct ? patient identity and procedure to be performed. Throughout the ? procedure, the patient's blood pr essure, pulse, and oxygen saturations ? were monitored continuously. The Pediatric Colonoscope was introduced ? through the anus and advanced to the the cecum, identified by ? appendiceal orifice and ileocecal valve. The colonoscopy was performed ? without difficulty. The patient t olerated the procedure well. The ? quality of the bowel preparation was good. The ileocecal valve and the ? rectum were photographed. The helene lity of the bowel preparation was ? evaluated using the BBPS (Sagam[place] Bowel Preparation Scale) with scores ? of: Right Colon = 1 (portion of m ucosa seen, but other areas not well ? seen due to staining, residual st ool and/or opaque liquid), Transverse ? Colon = 3 (entire mucosa seen wel l with no residual staining, small ? fragments of stool or opaque liqu id) and Left Colon = 2 (minor amount of ? residual staining, small fragment s of stool and/or opaque liquid, but ? mucosa seen well). The total BBPS score equals 7. The quality of the ? bowel preparation was good. Complications: ? No immedia te complications. Estimated Blood Loss: ?Estimated blo od loss: none. Attending Participation: I personally pe rformed the entire procedure. Joleen Chacon MD 05/05/2021 1:53:35 PM This report has been signed electronical ly. Number of Addenda: 0 Note Initiated On: 05/05/2021 12:49 PM Narciso Malcolm GI PROCEDURE ORDERABLES Performing Organization Address City/State/ZIP Code Phon e Number [employer] NA documented in this encounter Visit Diagnoses Diagnosis Bleeding Rectal documented in this encounter Administered Medications Inactive Administered Medications - up to 3 most recent administrations Medication Order MAR Action Action Date Dose Rate Site simethicone drops (MYLICON) Given 05/05/2021 1:37 PM SUPERINTENDENT TERMINAL 3 mL Code/trauma/sedation medication, Starting on Sat05/05/21 at 1337 documented in this encounter
--- OUTSIDE RECORDS SUMMARY | 2022-03-01 10:14 | XMS_ITS | Encounter Summary ---
:[address] [facility] Address [address] [place] [address] Care Team Providers Name Role Phone Unavailable Primary Care Provider Unavailable Encounter Details Date Type Department Care Team Description 05/02/2021 Lab Department of Family Yarbrough, Adriana Brown [facility] Intestinal Medicine, [facility], in [place] [address] [place], [place] [address] [facility] [address] [place] [address] [phone] Social History Tobacco Use Types Packs/Day Years [...] Name Priority Date/Time Associated Diagnosis Comme nts SARS CORONAVIRUS-2 Routine 05/02/2021 4:28 PM Obstruction Res ults for this RNA, V CORRECTIONAL THERAPY DIRECTOR Intestinal ([facility]) procedure a re in the results section. documented in this encounter Results SARS Coronavirus-2 RNA, V Asymptomatic (05/02/2021 4:28 PM CORRECTIONAL THERAPY DIRECTOR) [facility] Method Time Signature SARS-CoV-2 Swab, 05/03/2021 MKTO Specimen Nasopharynx 1:09 PM CORRECTIONAL THERAPY DIRECTOR Source SARS CoV-2 Undetected Undetected 05/03/2021 MKTO RNA, TMA 1:09 PM CORRECTIONAL THERAPY DIRECTOR Comment: SARS-CoV-2 RNA absent. This result does not rule out COVID-19 in the patient, as the sensitivity of the test depends o n the timing of the specimen collection and the quality of the specim en. Result should be correlated with patient's history and clinical presentat ion. ----ADDITIONAL INFORMATION---- This molecular amplification test was pe rformed using the Aptima SARS-CoV-2 assay ([employer] on the [employer] tem under emergency use authorization (EUA) by the U.S. Food and Drug Administ ration. Fact sheets for this EUA assay can be fo und at the following links: For Healthcare Providers: https://www.Humouno a.gov/media/465129/download For Patients: https://www.fda.gov/media/ 323505/download Specimen Anatomical Collection Method Collection Time Receive d Time (Source) Location / / Volume Laterality Varies 05/02/2021 4:28 PM 2 8:09 (Nasopharynx) CORRECTIONAL THERAPY DIRECTOR PM CORRECTIONAL THERAPY DIRECTOR Adriana Yarbrough P.A.-C. LAB MICROBIOLOGY - GENERAL O HAFSAERAREJI Performing Organization Address City/State/ZIP Code Phon e Number [facility]- [address] [place] [address] [place] [address] System [address] documented in this encounter Visit Diagnoses Diagnosis Obstruction Intestinal (HCC) documented in this encounter Additional Health Concerns Infection Onset Date Last Indicated Resolved Time COVID19 Pending 05/01/2021 05/02/2021 05/03/2021 1:10 PM CORRECTIONAL THERAPY DIRECTOR documented as of this encounter
--- OUTSIDE RECORDS SUMMARY | 2022-03-01 10:14 | XMS_ITS | Encounter Summary ---
:1955 Author Organization [facility] Address [address] [place] [address] Care Team Providers Name Role Phone Unavailable Primary Care Provider Unavailable Encounter Details Date Type Department Care Team Description 05/01/2021 Orders Only Division of Trauma Yarbrough, Adriana L, Obstruc tion Intestinal Critical Care and P.A.-C. (HCC) (Primary Dx) General Surgery in [address] [place], [place] [address] [place] [address] [place], [place] [phone] (Work) [phone] Social History Tobacco Use Types Packs/Day Years Used Date Smoking Tobacco: Former Cigarettes 05 23 Quit : 2004 Smokeless Tobacco: Never Alcohol Use Standard Drinks/Week Comments No 0 (1 standard drink = 0.6 oz pure alcoho l) Sex Assigned at Date Recorded Not on file documented as of this encounter Plan of Treatment Not on filedocumented as of this encounter Results SARS Coronavirus-2 RNA, V Asymptomatic (05/02/2021 4:28 PM LENS GRINDER AND POLISHER) [employer] Method Time Signature SARS-CoV-2 Swab, 05/03/2021 MKTO Specimen Nasopharynx 1:09 PM LENS GRINDER AND POLISHER Source SARS CoV-2 Undetected Undetected 05/03/2021 MKTO RNA, TMA 1:09 PM LENS GRINDER AND POLISHER Comment: SARS-CoV-2 RNA absent. This result does not rule out COVID-19 in the patient, as the sensitivity of the test depends o n the timing of the specimen collection and the quality of the specim en. Result should be correlated with patient's history and clinical presentat ion. ----ADDITIONAL INFORMATION---- This molecular amplification test was pe rformed using the Aptima SARS-CoV-2 assay ([employer] on the [employer] tem under emergency use authorization (EUA) by the U.S. Food and Drug Administ [facility]. Fact sheets for this EUA assay can be fo und at the following links: For Healthcare Providers: https://www.fd a.gov/media/708140/download For Patients: https://www.fda.gov/media/ 266835/download Specimen Anatomical Collection Method Collection Time Receive d Time (Source) Location / / Volume Laterality Varies 05/02/2021 4:28 PM 8:09 (Nasopharynx) LENS GRINDER AND POLISHER PM LENS GRINDER AND POLISHER Adriana Yarbrough P.A.-C. LAB MICROBIOLOGY - GENERAL O RDERABLES Performing Organization Address City/State/ZIP Code Phon e Number [facility]- [address] [place] [phone] [place] [address] [place] [address] System in [address] documented in this encounter Visit Diagnoses Diagnosis Obstruction Intestinal (HCC) - Primary documented in this encounter
--- OUTSIDE RECORDS SUMMARY | 2022-03-01 10:14 | XMS_ITS | Encounter Summary ---
:1955 Author Organization [facility] Address [address] [place] [address] Care Team Providers Name Role Phone Unavailable Primary Care Provider Unavailable Encounter Details Date Type Department Care Team Description 05/05/2021 Anesthesia Event Division of Kamaljit Goel, OIL TANK CAR CLEANER, KILN CHARGER, DNAP [address] [place] [phone] [facility] [address] [place] [phone] [place], [place] [address] [place], [place] [phone] Anesthesia Record Procedure Summary Procedure Name Responsible Anesthesiologist Anesthesia Start Ti me Anesthesia Stop Time COLONOSCOPY Carl Goel, OIL TANK CAR CLEANER, 05/05/21 1323 1352 KILN CHARGER, DNAP Events Date Time Event Comment 05/05/2021 1323 An Start Machine/Equipmen t Checked Infection Precautions Foll owed Procedure/Site Verified NPO Sta tus Verified Supine Standard ASA Mon itors Applied 1323 Turnover to Proceduralist 1325 Turnover to ANE Staff 1330 Proc Start 1344 Proc Fin 1347 an stop data 1352 An End I completed my h andoff to the receiving staff during [facility] we 1. Identified the patient 2. Ident ified the responsible provider 3. Revi ewed the pertinent medical history 4. Discu ssed the surgical course 5. Reviewed intra-o p anesthesia management and issues during an esthesia 6. Set expectations for post-procedure period 7. Allowed opportun ity for questions and acknowledgement of understanding. Name Total lidocaine 2% (mg) injection 60 mg propofol 10 mg/mL injection 30 mg propofol 10 mg/mL infusion 215.54 mg Lactated Ringers Free Drip 200 mL Agents No agents on file. Blood No blood administrations on file. Lines, Drains, and Airways Type Details Placement Removal Peripheral IV Placement Date: 05/05/21; 05/05/21 1222 by Bodar t, 05/05/21 1421 by Placement Time: 1222; Madelin Brown M.B.A., R.N. Yadi monroe, [place] Jonah, Catheter Size: 22 G; R.N. Orientation: Lower, Right; Location: Forearm; Removal Date: 05/05/21; Removal Time: 142; Removal Reason: Patient discharged documented in this encounter Social History Tobacco Use Types Packs/Day Years Used Date Smoking Tobacco: Former Cigarettes 05 23 Quit : 2004 Smokeless Tobacco: Never Alcohol Use Standard Drinks/Week Comments No 0 (1 standard drink = 0.6 oz pure alcoho l) Sex Assigned at Date Recorded Not on file documented as of this encounter OR Notes Anesthesia Postprocedure Evaluation - Morena Elliott APRN, CRNA, DNAP - 05/05/2021 1:55 PM CST Patient: Sarah Reyes Procedure Summary Date: 05/05/21 Room / Location: Division of Gastroenterology in [place], [place] Anesthesia Start: 1323 Anesthesia Stop: 1352 Procedure: COLONOSCOPY Diagnosis: Bleeding Rectal Scheduled Providers: Morena Elliott APRN, CRNA, DNAP Responsible Provider: Carl Goel APRN, CRNA, DNAP Anesthesia Type: MAC ASA Status: 3 Anesthesia Type: MAC Last vitals Vitals Value Taken Time BP 124/76 05/05/21 1352 Temp 36.9 ??C 05/05/21 1351 Pulse 98 05/05/21 1355 Resp 21 05/05/21 1355 SpO2 99 % 05/05/21 1355 Vitals shown include unvalidated device data. Please reference Vitals flowsheet for most recent vital signs. Anesthesia Post Evaluation Patient Disposition: dismissal Cardiovascular status: hemodynamics (HR & BP) acceptable Respiratory status: patent airway with spontaneous effort Temperature: normothermic Oxygen requirements: room air Level of consciousness: awake Pain score: pain adequately controlled and/or at baseline Post Op nausea/vomiting: none Hydration status: euvolemic BUILDER Anesthesia Preprocedure Evaluation - Keaton Frost M.D. - 05/05/2021 1:12 PM CST Preprocedure Anesthesia & H&P Assessment Procedure Summary Date/Time: 05/05/21 1200 Scheduled providers: Morena Elliott APRN, CRNA, DNAP Procedure: COLONOSCOPY Diagnosis: Bleeding Rectal [K62.5] Location: Division of Gastroenterology in [place], [place] Pertinent components of the patient's history including current problem list, medical history, surgical history, family history, social history, medications and allergies were reviewed. Present illnessand pre-op diagnosis were confirmed. The planned surgery / procedure was verified with the patient /legal guardian. 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) Other (+) Morbid Obesity Body Mass Index >= 35 with Comorbid Condition (HCC) (+) Obesity Body Mass Index 30-39.9 Adult OBJECTIVE PHYSICAL EXAMINATION Airway (HEENT) Mallampati: II TM Distance: >3 FB Neck ROM: Full Mouth Opening: >3 cm Cardiovascular Rhythm: Regular Rate: Normal Cardiovascular Assessment: cardiovascular normal Pulmonary Pulmonary Assessment: Clear General / Constitutional Constitutional Assessment: Normal General State of Health:: healthy appearing and calm ASSESSMENT / PLAN ANESTHESIA PLAN ASA: 3 Anesthesia Plan: MAC Patient seen and allergies reviewed, anesthesia plan and risks discussed directly with patient /legal guardian or through an continuity tester. Risks/Benefits/Alternatives of Blood transfusion discussed with patient / legal guardian, including an opportunity to ask questions and/or decline some or all transfusion therapies. The patient / legalguardian consented to the use of all blood products, as deemed medically necessary Approval to Proceed: approved for anesthesia BUILDER documented in this encounter Plan of Treatment Not on filedocumented as of this encounter Visit Diagnoses Not on filedocumented in this encounter Administered Medications Inactive Administered Medications - up to 3 most recent administrations Medication Order MAR Action Action Date Dose Rate Site lactated ringers New Bag 05/05/2021 1:23 PM HOME BUILDER intravenous, Continuous Infusion: Per Instructions PRN, Starting on Sat05/05/21 at 1323, Anesthesia Intra-op lidocaine (PF) (cardiac) injection Given 05/05/2021 1:23 PM HOME BUILDER 60 mg intravenous, As needed, Starting on Sat05/05/21 at 1323, Anesthesia Intra-op propofol 10 mg/mL infusion Rate/Dose 05/05/2021 1:38 100 mcg/kg/min 59.46 (DIPRIVAN) Change PM HOME BUILDER mL/hr intravenous, Continuous Infusion: Per Instructions PRN, Starting on Sat05/05/21 at 1323, Anesthesia Intra-op New Bag 05/05/2021 1:23 PM HOME BUILDER 125 mcg/kg/min 74.325 mL/hr propofoL injection (DIPRIVAN) Given 05/05/2021 1:26 PM HOME BUILDER 30 mg intravenous, As needed, Starting on Sat05/05/21 at 1326, Anesthesia Intra-op documented in this encounter
--- OUTSIDE RECORDS SUMMARY | 2022-03-01 10:15 | XMS_ITS | Encounter Summary ---
:1955 Author Organization [facility] Address [address] [place] [id number] Care Team Providers Name Role Phone Unavailable Primary Care Provider Unavailable Reason for Referral Physical Therapy (Routine) - Authorized Specialty Diagnoses / Procedures Referred By Contact Refer red To Contact Diagnoses Obstruction Intestinal (HCC) Decline Functional Status Lilia Colon APRN, C.N.P. [address] [place] [phone] Referral ID Status Reason Start Expiration Visits Visits Date Date Requested Authorized [id number] Authorized Continuity of 04/28/2022 99 99 Care 1 ESS MOLD TECHNICIAN Encounter Details Date Type Department Care Team Description 2021 - Hospital Encounter [facility] Rajani Flores M.D. [address] [place] [phone] Obstruction Intestinal (HCC) (Primary Dx ); [facility] [address] [place] [phone] Decline Functional Status [facility] Lance Armstrong M.D. [address] [place] [phone] [facility], Fourth Floor [address] [place] [phone] Social History Tobacco Use Types Packs/Day Years Used Date Smoking Tobacco: Former Cigarettes 05 23 Quit : 2004 Smokeless Tobacco: Never Alcohol Use Standard Drinks/Week Comments No 0 (1 standard drink = 0.6 oz pure alcoho l) Sex Assigned at Date Recorded Not on file documented as of this encounter Last Filed Vital Signs Vital Sign Reading Time Taken Comments Blood Pressure 145/69 04/28/2021 3:31 PM PROCESS MOLD TECHNICIAN Pulse 86 04/28/2021 3:31 PM PROCESS MOLD TECHNICIAN Temperature 36.7 ??C (98.1 ??F) 04/28/2021 3:31 PM PROCESS MOLD TECHNICIAN Respiratory Rate 40 04/28/2021 3:31 PM PROCESS MOLD TECHNICIAN Oxygen Saturation 92% 04/28/2021 3:31 PM PROCESS MOLD TECHNICIAN Inhaled Oxygen Concentration - - Weight 99.1 kg (218 lb 7.6 oz) 04/26/2021 11:31 AM PROCESS MOLD TECHNICIAN Height 160 cm (5' 3) 2021 12:15 PM PROCESS MOLD TECHNICIAN Body Mass Index 38.7 2021 12:15 PM PROCESS MOLD TECHNICIAN documented in this encounter Discharge Summaries Lilia Colon, HUGH, C.N.P. - 04/28/2021 10:59 AM CST DISCHARGE SUMMARY BRIEF OVERVIEW Hospital: [facility] Discharge Provider: Sudarshan Mayer M.D. Primary Team: [facility] No primary care provider on file. 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 * Surgery Information This Encounter Past Procedures (04/28/2020 to Today) Date Procedures Providers Location 04/25/2021 LAPAROSCOPIC ABDOMINAL EXPLORATION, possible open, possible bowel resection, possible temporary abdominal closure, possible multiple trips to OR Ammon Lino M.D.Tom Pagan M.D.Landon, Sudarshan D Jr., M.D., M.P.H. RST ROMB OR DISCHARGE DISPOSITION Home or Self Care [1] ACTIVE ISSUES REQUIRING FOLLOW UP NO FOLLOW UP REQUIRED WITH TRAUMA-CRITICAL CARE-GENERAL SURGERY (TCGS): You do not require a follow up appointment at this time. If you are having difficulty, have questions or would like to be seen in follow-up, please call to make an appointment at [phone]. If you need to reach a provider on the TCGS service after hours, you may call the [facility] paper reel operator at and ask to speak the provider international trade analyst for the Trauma-Critical Care-General Surgery (TCGS) Service. If you have forms that need addressed by the surgery team or outside records that need to be uploaded, please email them to [email or web address] or fax them at [phone]. PRIMARY CARE PROVIDER: You should follow up with your primary care provider within one to two weeks of being discharged. This appointment will be for further assessment following your hospitalization evaluation of your pre-existing medical conditions, and review and management of your medications. Changes to your previous medications may have been made during this hospitalization and you will need to discuss those changes with your healthcare provider. SMALL BOWEL OBSTRUCTION: You are to monitor for signs and symptoms of a small bowel obstruction. A small bowel obstruction susi blockage of the small intestine. Seek medical attention if you develop: 1) A cramp-like pain in the abdomen that comes and goes. 2) A tender and enlarged abdomen. 3) Vomiting. 4) Failure to pass gas or stools. 5) Fever, temperature greater than 101.5. If you have any of these symptoms, please report these to your provider. Issue: Medication Reconciliation What is Needed: Primary care and Psychiatry follow up; Colonscopy Follow-up Appointments Arranged: No: patient to arrange; Colonoscopy on 05/01 will be changed to a different date OUTPATIENT FOLLOW UP Scheduled Appointments 05/01/2021 11:00 AM RM [address] [facility] Gastroenterology and Hepatology For appointment details refer to your Patient Appointment Guide. TEST RESULTS PENDING AT DISCHARGE Pending Labs Order Current Status Bacterial Culture, Aerobic + Susc, Resp Collected (04/24/21 6548) Gram Stain Collected (04/24/21 1329) DETAILS OF HOSPITAL STAY REASON FOR ADMISSION Obstruction Intestinal (HCC) HOSPITAL COURSE Ms. Sarah Reyes is a 66 year old female with a PMH of mitral valve insufficiency, HTN, KEVIN, DM type 2, metabolic syndrome, schizophrenia, left lung adenocarcinoma s/p wedge lung resection (2018) who presented to the [facility] Emergency Department on 04/23 for abdominal pain and vomiting for [address] A/P demonstrated high-grade obstruction in her right lower quadrant. She was admitted overnight and transferred to [facility] on 04/24 due to respiratory distress most likely due to possible aspiration pneumonia. She was admitted the SICU. She was given IVF resuscitation for dehydration. She underwent gastrografin challenge and passed with contrast through to the colon. She was transferred to the general care floor on 04/25 under the care of HSStephen Johnson. Due to her history of schizophrenia needing Clozapine, our colleagues in Psychiatry were consulted for possible dose reduction as the high dose of medication is likely cause of her obstruction. They recommended holding her Clozapine and monitoring her for psychotic symptoms and a plan to adjust her med ication if this occurs. She had return of bowel function on 04/25. Her nasogastric tube was removed on 04/26 and she was started on a clear liquid diet. Her diet was advanced on 04/27. She developed maroon stool for one bowelmovement and hemoglobin monitored. It was stable at 10.8 from 10.8 the day prior. She was given liquids by mouth and eventually transitioned to a general diet. When she was tolerating a diet, her pain was well controlled with oral pain medications, she was mobilizing without difficulty and her bowel and bladder function were acceptable, she was dismissed to home and will pursue PT in outpatient setting. Colonoscopy is scheduled for 05/01/2021. CONSULTS ORDERED DURING THIS ADMISSION IP CONSULT TO GENERAL SURGERY IP CONSULT TO PSYCHIATRY & PSYCHOLOGY IP CONSULT TO CARE MANAGEMENT IP CONSULT TO GASTROENTEROLOGY CONDITION AT DISCHARGE stable Discharge instructions were provided to the patient and caregiver(s). ESS MOLD TECHNICIAN documented in this encounter Medications at Time of Discharge Medication Sig Dispensed Refills Start Date End Date ADVAIR DISKUS 250-50 Inhale 1 puff 2 (two) 3 05/30 mcg/act diskus inhaler times a day. citalopram (CeleXA) 20 mg Take 20 mg by mouth 0 0 05/26/2018 tablet daily. dilTIAZem LA (CARDIZEM Take 120 mg by mouth 0 LA) 120 mg 24 hr tablet at bedtime. fluticasone (FLONASE) 50 Administer 2 sprays 5 mcg/actuation nasal spray into each nostril at bedtime. metFORMIN (GLUCOPHAGE) Take 500 mg by mouth 0 500 mg tablet at bedtime. montelukast (SINGULAIR) Take 10 mg by mouth at 0 04/23/2018 10 mg tablet bedtime. MYRBETRIQ 50 mg 24 hr Take 50 mg by mouth at 4 tablet bedtime. omeprazole (PriLOSEC) 20 Take 20 mg by mouth [address] capsule every morning before breakfast. psyllium (METAMUCIL) 0.52 Daily 0 gram capsule vitamin E 400 unit Take 400 Units by 0 08/16/2016 capsule mouth daily. zolpidem (AMBIEN) 5 mg Take 5 mg by mouth at 0 tablet bedtime as needed for sleep. acetaminophen (TYLENOL) Take 500 mg by mouth 0 500 mg tablet every 6 (six) hours as needed for pain. albuterol (PROVENTIL Inhale 2 puffs every 4 0 HFA,VENTOLIN HFA) 90 (four) hours as needed mcg/actuation inhaler for wheezing or shortness of breath. ARIPiprazole (ABILIFY) 20 Take 1 tablet (20 mg 30 tablet 0 04/29/2021 mg tablet total) by mouth every morning. ipratropium-albuterol Inhale 3 mL 4 (four) 0 03/30 (DUO-NEB) 0.5-2.5 mg/3 mL times a day as needed nebulizer solution for wheezing or shortness of breath. polyethylene Drink 1st portion of 4000 mL 0 04/27/2021 glycol-electrolytes prep at 6 PM the (GoLYTELY) 236-22.74-6.74 evening before. 2nd -5.86 gram solution portion must be started 3 hours before and finished 2 hours prior to report time documented as of this encounter Progress Notes Charlene Shannon P.T., D.P.T. - 04/28/2021 5:08 PM CST 05/01/21 1620 Plan PT Plan Comments Patient discharged home. Patient family will assist. Goals set during this episode of care family will assist Adaptive equipment not needed Charlene Shannon P.T., D.P.T. ESS MOLD TECHNICIAN Lilia Colon APRN, C.N.P. - 04/28/2021 9:05 AM CST SUBJECTIVE Ms. Reyes was seen and examined by the HSS-B team in her room this morning. She reports adequate rest overnight. She required NC oxygen in overnight hours and saturated above 92%. Of note, patient hasBiPap at home that she wears every night. She states that she lives with her sister and anticipates discharge today. VSS. Oral intake robust at 2.3L. Urinary output of 4.2L and a bowel movement in past24 hours. Colonoscopy is scheduled for 05/01/21. Have provided PT referral. OBJECTIVE VITAL SIGNS Blood Pressure: 128/66, Pulse Rate: 88, Resp Rate: 24, Temperature: 36.2 ??C, SpO2: 91 % I/O last 3 completed shifts: In: 2300 [P.O.:2300] Out: 4275 [Urine:4275] Physical Exam General: alert, oriented, in no acute distress; lying in bed Lungs: Unlabored breathing on room air Abdomen: soft, nontender, nondistended Extremities: warm and well perfused DIAGNOSTICS I have reviewed labs and xray. No results found. 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 Diet: Adult Diet Regular 2. Activity: as tolerated 3. VTE Prophylaxis: Heparin SQ 5,000 units TID 4. GI Prophylaxis: Pantoprazole 5. Bowel Regimen: Senna 6. Pain: pain well-controlled on oral pain meds 7. Disposition: Home with family later this morning; Non-[place] PT referral script given Patient has close follow up with colonoscopy on 05/01/21 and should follow up thereafter with PCP. Sheverbalizes understanding. For questions/concerns in regards to patient plan of care, please page HSS-B service at [phone]. ADDENDUM: ([phone]) Spoke with Naomi, Sister and real estate management specialist. 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 Will contact online merchandising coordinator early a.m.on 05/01 and move this procedure to 05/02 or 05/05 if available. Will remain on Abilify and stop clozapine, however, if she thinks her Sister is needing this medication, she will stop Abilify and resume clozapine. Her concern is that Psychiatry is not able to see her in the near future and she has been unsuccessful in obtaining PCP appointment as well. ESS MOLD TECHNICIAN Narciso Gama M.B.B.S. - 04/27/2021 10:29 PM CST TCGS- B PROGRESS NOTE TODAY'S DATE: 04/27/2021 ADMISSION DATE: 2021 SUBJECTIVE No acute events overnight. Pain is well controlled. Toleratingoral intake without any nausea or vomiting. Reports passing gas voiding and having bowel movements, with 1 episode of maroon stool. Patientdenied palpitations dizziness and she has adequate amount of urine output. OBJECTIVE - I have reviewed the 24 hours vitals, I&O, and notes relevant to this encounter. Notable valueswill be indicated as appropriate. Intake/Output Summary (Last 24 hours) at 04/27/20212235 Last data filed at 04/27/2021 2100 Gross per 24 hour Intake 2800 ml Output 2950 ml Net -150 ml Physical Exam Hemodynamics: afebrile, Vitals: 04/27/212044 BP: 133/74 Pulse: 106 Resp: 30 Temp: 36.5 SpO2: 94% General: Alert and oriented, no acute distress Cardiopulmonary: unlabored breathing on room air Abdomen: soft, nontender nondistended Diagnostics: I have reviewed diagnostic labs, imaging, or other testing as appropriate. Notable for: Ref. Range 04/26/2021 14:53 04/26/2021 20:18 Hemoglobin Latest Ref Range: 11.6 - 15.0 g/dL 11.2 (L) 10.8 (L) Hematocrit Latest Ref Range: 35.5 - 44.9 % 35.6 33.9 (L) Erythrocytes Latest Ref Range: 3.92 - 5.13 x10(12)/L 3.95 3.82 (L) MCV Latest Ref Range: 78.2 - 97.9 fL 90.1 88.7 RBC Distrib Width Latest Ref Range: 12.2 - 16.1 % 13.7 13.6 Platelet Count Latest Ref Range: 157 - 371 x10(9)/L 143 (L) 182 White Blood Cell Count Latest Ref Range: 3.4 - 9.6 x10(9)/L 7.1 7.6 Neutrophils Latest Ref Range: 1.56 - 6.45 x10(9)/L 5.19 Lymphocytes Latest Ref Range: 0.95 - 3.07 x10(9)/L 1.83 Monocytes Latest Ref Range: 0.26 - 0.81 x10(9)/L 0.41 Eosinophils Latest Ref Range: 0.03 - 0.48 x10(9)/L 0.04 Basophils Latest Ref Range: 0.01 - 0.08 x10(9)/L 0.08 ASSESSMENT: #1 Schizophrenia (HCC) #2 Obstruction Intestinal (HCC) #3 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 In summary, Ms. Reyes is a 66 y.o. female with past medical history significant for schizophrenia on clozapine, diabetes mellitus with polyneuropathy, morbid obesity who presented to the outside ED with complains of abdominal pain, abdominal distention and respiratory distress plans. Patient has no prior history of abdominal surgeries. She presented with SBO in the setting of clozapine intake for schizophrenia. Patient returned bowel function and was ready to discharge today, but she developed maroon stool . Patient denied palpitations and dizziness., patient mentioned that she has similar episodeevery couple months before. We are following her hemoglobin, and patient was scheduled for outpatient colonoscopy on May 01 for further surveillance. PLANS Diet: CLD IVF: IVL Urinary: Void Bowel: Dulcolax, Miralax, and Senokot S Drains/Wounds: none Pain: Oxycodone, Tylenol, and Lidoderm patch Micro: Sputum culture/GS drawn 04/24 ABX: Ceftriaxone DVT/GI Prophy: Heparin SQ 5,000 units TID Home meds: Abilify, citalopram, singular, DuoNeb, albuterol Consults: Psych Dispo: TBD Barriers to d/c: Watch Hb after Maroon stool Patient is being cared for by the HSS-B team. Please page [phone] (HSS-B) with any questions or concerns. Plans were discussed with Dr. Mayer, who was in agreement Ashley LizarragaS Resident Physician PGY-1 General Surgery [email or web address] ESS MOLD TECHNICIAN Kathy Zavaleta P.T.A. - 04/27/2021 2:10 PM CST Physical Therapy Inpatient Treatment Note SUBJECTIVE Patient's Name: Sarah Reyes Referring/Attending: Sudarshan Mayer M.D. Medical Diagnosis: Obstruction Intestinal (HCC) [K56.609] Reason for Referral: PT Evaluate and Treat Onset Date: 04/24/21 Payor: MEDICARE / Plan: MEDICARE A AND B / Product Type: Medicare / History of Present Illness: 66 year old female with a PMH of schizophrenia, left lung adenocarcinomas/p wedge lung resection 2019, T2DM, metabolic syndrome, mitral valve insufficiency and KEVIN who presented to the [facility] Emergency Department on 04/23 for abdominal pain and vomiting for [address] A/P demonstrated high-grade obstruction in her right lower quadrant. She was admitted overnight and transferred to [facility] on 04/23 due to respiratory distress most likely due to possible aspiration pneumonia. Patient/Caregiver Goals: No specific goals listed. Patient Comments: States feels good to walk. My rihgt leg rotate out since my fall on ice 7 years ago. No pain.I would like a gown or robe over my back side. Pprecautions Other Precautions: fall, cognition, hx schizophrenia Fall Risk (65 and older) Fall in the last 12 months: No Are you fearful of falling?: Yes Fall Risk Comments: does intermittently use a front wheeled walker to help with balance OBJECTIVE Vitals monitored throughout session; within normal ranges. Treatment consisted of: Sit to Stand Transfers # of Assistants: 1 Transfer Surface: Chair Transfer Equipment: Gait belt,Front wheeled walker Level of Assistance: Modified Independent Assessment/Delivery: Assessed Comments: slow able to scoot forward and then cues to push up from arms of chair Stand to Sit Transfers # of Assistants: 1 Transfer Surface: Chair Transfer Equipment: Gait belt,Front wheeled walker Level of Assistance: Modified independent Assessment/Delivery: Assessed Comments: cue to reach back for arms of chairs Gait Assessment/Training Distance (m): 350 m Surface: Even Device: Gait belt,Front-wheeled walker # of Assistants: 1 Level of Assistance: Modified Independent Quality/Pattern: Decreased heel strike,Decreased toe off Stability: good Assessment of Gait: right l/e externally rotates out and at times bumps the rebekah e of the walker but pt is able to manage and keep her balance.e Cueing Provided: Verbal Training/Intervention: cues to stand tall and breath. Response: pt wanting to keep walking stating it felt good to move. Seated Exercises Seated Exercise - Side Addressed: Bilateral Sitting Surface: Chair Seated Exercise: Ankle pumps,Hip abduction/adduction,Long arc quads,Knee flexion Exercise Mode: Active motion against gravity Sets/Repetitions: 1/10 Seated Exercise Comments: home exercise sheet was provided Handouts provided today: Exercises for the Legs (Sitting) ([id number]) The following coordination of care occurred today: updated nursing on pt progress and for the weekend to walk 3-5 times a day. pt is to have a colonoscopy tomorrow and depending on results plan is home with family Patient's nurse was contacted and patient's status was discussed Patient was left in bedside chair with chair alarm on at end of session with call light in reach, all needs met and questions answered. Contact monitoring: PPE used during therapy: Therapist was wearing the following PPE throughout entire session: surgicalmask, eye protection and gloves Therapist was wearing the following PPE throughout entire session: surgical mask, eye protection andgloves Patient was wearing a mask during therapy session: yes Outcome Measures [facility] Inpatient Short Form: -[facility] Basic Mobility (V.2) How much help from another person do you currently need???If the patient hasn't done an activity recently, how much help from another person do you think he/she would need if he/she tried? 1. Turning from your back to your side while in a flat bed without using bedrails?: A Little 2. Moving from lying on your back to sitting on the side of a flat bed without using bedrails?: A Little 3. Moving to and from a bed to a chair (including a wheelchair)?: None 4. Standing up from a chair using your arms (e.g., wheelchair, or bedside chair)?: None 5. To walk in hospital room?: None 6. Climbing 3-5 steps with a railing?: A Lot -[facility] Basic Mobility (V.2) Raw Score: 20 -[facility] Basic Mobility (V.2) Standardized Score: 43.99 Interpretation: Clinicians answer the -[facility] Inpatient Short Form based on observed patient activityand/or clinical judgement (ie. patient can be scored without physically performing each activity) Based on scoring guidelines using the raw score value: Those going to home had an average score of 20.1 Those going home with home care had an average score of 17.9 Those going to SNF had an average score of 14 Those going to IRF had an average score of 13.6 Those going to a LTAC had an average score of 11.5 Assessment Discharge Therapy Needs - PT: Ongoing skilled physical therapy (pending progress) Skilled therapy can include physical therapy provided by home health, outpatient clinic, or a post-acute facility. The location of these services is determined by the patient's care team in partnershipwith patient/family. Level of Care Needed - PT: Assistance with transfers (Comment),Assistance with stairs,Cognitive assistance needed,Assistance with walking and moving around the home,Physical assistance needed,Assistance with bed mobility Barriers to Discharge Home: Current functional status,Inaccessible home environment,Fall risk Barriers to Discharge Comments: several steps to negotiate at home From a physical therapy perspective, the level of care above has been recommended for Ms. Reyes after hospital discharge. This level of care is based on her functional abilities during today's session. This may change throughout the hospital course and will be updated as appropriate. Clinical Impression of today's session: Pt is making good progress towards goals. Will sign up pt for Saturday will have to work around colonoscopy to do assess stairs and bed transfers. Pt walked over 300 ft with fww Steady pace and wanted tokeep walking. Pt instructed on home exercise program and sheet was provided. Rehab potential: Ms. Reyes has Good potential to achieve established physical therapy goals within the time frame outlined below. Functional Goals and Timeframes: PT Inpatient Goals PT Goal #1: Patient will perform supine to/from sit transfers with independence for safely rising from bed at home. PT Goal #2: Patient will ambulate 50m with least restrictive gait aid and modified independence for return to home and community walking. PT Goal #2 Status: Achieved PT Goal #3: Patient will ascend/descend 8 steps with 2 railings and 16 steps with one railing, all with modified independence, for safe negotiation of her home. Plan Treatment Plan: Plan: Plan of care initiated PT Frequency: PT Amount: 1 visit per day PT Frequency: 5 times per week PT Inpatient Duration : Until goals are met or hospital discharge Requires Inpatient Follow-Up: Yes PT - Next Inpatient Appointment: 04/28/21 PT Plan Comments: pt to have a colonoscopy plan is home maybe after that will need stairs and bed transfers call nursing to set up a time around colonoscopy. please Treatment interventions may include: Treatment/Interventions: Therapeutic exercise,Therapeutic functional activity,Neuromuscular re-education,Self-care/home management,Gait training NURSE GYNECOLOGY Visit Trackin Billing: Time Spent with Patient Gait Training (min): 20 min Therapeutic Exercise (min): 12 min Total Timed Units (min): 32 min Total Treatment Time (min): 32 min Kathy Zavaleta, P.T.A. ESS MOLD TECHNICIAN Nancy Lawson Pharm.D., R.Ph. - 04/27/2021 11:50 AM CST Pharmacist Progress Note Reason for admission: SBO PMH: schizophrenia OBJECTIVE Home medications: ?? Held: Flonase, metformin, Singulair, Myrbetriq, psyllium, vit E, zolpidem ?? Changed: Dilt LA -> IR, Advair -> Breo, omeprazole -> pantoprazole Patient own medications: None Prophylaxis: Lovenox 40mg daily, pantoprazole 40mg daily ASSESSMENT / PLAN 1. Last BM 04/27. 2. Clozapine resumed last night at home dose. Clozapine was interrupted >2 days, therefore patient should be instead re-titrated to home dose. Appreciate psych recommendations regarding management of this. 3. With the resolution of SBO, consider resuming home LA Diltiazem and any other home medications deemed essential prior to discharge. Changes to medications anticipated at discharge: TBD - likely new pain and bowel regimens. David Lawson Pharm.D., R.Ph. ESS MOLD TECHNICIAN Kim Browne L.G.S.W., M.S.W. - 04/27/2021 11:31 AM CST SUBJECTIVE Social work continuing to follow patient for ongoing support and discharge planning. Today, met withpatient at bedside to offer a supportive visit. She is sitting up in her chair watching TV at the time. Patient shares that she is doing well today and was just informed that she will have to have a colonoscopy completed tomorrow. We discussed her understanding of the procedure, and ultimately she is feeling confident moving forward with it. She comments that she feels safe regarding the procedure tomorrow. Asked patient about her mental health today which she reports is unchanged. She notes that she got agood night's sleep last night and has been hearing less voices so far this morning. She confirms that these continue to be good voices not causing her any harm or distress. Presented patient with the idea of home healthcare for ongoing physical therapy services. She would like to pursue this and notes that my sister will probably want it. A list of home health care options (that they geographically reside or requested) has been provided to and reviewed with patient. Disclaimers: Financial disclosure provided informing patient of our ownership and financial relationship of the [facility], home health, and hospice agencies. Reviewed Medicare coverage and provided a list of options. Patient is open to 4 referrals being sent. This has been done. She does voice a preference for a female therapist but understands that this might not be guaranteed. Patient denies having any additional questions or concerns to address today. Encouraged her to reachout should this change. Will continue to follow for hopeful home healthcare services. Referrals Sent: 1. [facility] 2. [facility] 3. [facility] 4. [facility] OBJECTIVE Patient seen up in the chair at the time of this visit. ASSESSMENT / PLAN ASSESSMENT Patient is alert, oriented, and engaged in the above conversation. She seems to be doing well today and coping appropriately. She demonstrates good knowledge of her upcoming colonoscopy and feels comfortable moving forward. Her mental health continues to be managed by medication and her voices have become less prominent. Patient has voiced a strong preference to work with female providers over males, the reasoning is unknown. PLAN 1. Patient will return home with her sister once medically ready to do so 2. Home health care referrals are pending for home PT 3. Patient will continue to follow with her outpatient psychiatrist for mental health support 4. Social work will continue to follow and assist with any psychosocial or discharge needs. Mehreen Downing, M.S.W. 04/27/21 ESS MOLD TECHNICIAN Sonido Woodall P.A.-C. - 04/27/2021 6:59 AM CST PATIENT NOT SEEN Recommend increasing Abilify to 20 mg daily in the absence of clozapine. Defer consideration of re-initiation of clozapine to her outpatient psychiatrist. Thank you for allowing us to assist in the care of your patient. Please contact me at [phone] withany questions or for further information. After regular work hours, you can contact the On-call service pager at [phone]. ESS MOLD TECHNICIAN Cassandra Olmstead M.B.B.S. - 04/26/2021 2:05 PM CST HSS B SERVICE PROGRESS NOTE SUBJECTIVE Postop Day: 1 Day Post-Op Hospital Day: LOS: 2 days SUBJECTIVE Sarah Reyes was seen and examined this morning. No acute events overnight. Pain is well controlled. Tolerating NPO without any nausea or vomiting . Reports having flatus and bowel movements. Voiding spontaneously. She is ambulating well and slept well last night. Denies fever, chills, hematemesis, melena, chest pain, shortness of breath. OBJECTIVE Vitals Temperature: [36.4 ??C-37.1 ??C] 37 ??C Heart Rate: [92-95] 93 Resp Rate: [22-34] 26 Blood Pressure: (127-137)/(60-76) 130/75 SpO2: [90 %-99 %] 91 % Flow Rate (L/min): [4 L/min] 4 L/min Weight: [97.6 kg-99.1 kg] 99.1 kg BMI (Calculated): [38.1 kg/m??-38.7 kg/m??] 38.7 kg/m?? Pulse Rate: [89-106] 106 I/O Intake/Output Summary (Last 24 hours) at 04/26/2021 1405 Last data filed at 04/26/2021 1116 Gross per 24 hour Intake 3060 ml Output 1387 ml Net 1673 ml Labs Recent Results (from the past 24 hour(s)) CBC without Differential Collection Time: 04/25/21 8:29 PM Result Value Hemoglobin 11.7 Hematocrit 37.7 Erythrocytes 4.15 MCV 90.8 RBC Distrib Width 13.9 Platelet Count 186 Leukocytes 6.1 Basic Metabolic Panel Collection Time: 04/25/21 8:29 PM Result Value Potassium, S 3.7 Sodium, S 146 (H) Chloride, S 112 (H) Bicarbonate, S 25 Anion Gap 9 BUN (Blood Urea Nitrogen), S 28 (H) Creatinine, S 0.64 eGFR-Non Black/ >90 eGFR-Black/ >90 Calcium, Total, S 8.5 (L) Glucose, S 147 (H) Cultures: Results for orders placed or performed during the hospital encounter of 04/24/21 (from the past 72 hour(s)) SARS Coronavirus 2, RNA, Rapid POC, V Asymptomatic Specimen: Nasopharynx; Varies Result Value SARS Coronavirus-2, RNA, Rapid POC, V Undetected SARS Coronavirus 2, Source Nasopharynx Physical Exam General: Alert and oriented, no acute distress Cardiopulmonary: unlabored breathing on room air Abdomen: soft, nondistended, nontender. Diagnostics: I have reviewed the relevant diagnostics which include labs, imaging, or other testing as appropriate. 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 Reyes is a 66 y.o. female, #1 Day Post-Op with past medical history significant forschizophrenia on clozapine, diabetes mellitus with polyneuropathy, morbid obesity who presented to the outside ED with complains of abdominal pain, abdominal distention and respiratory distress. She was found to have a small-bowel obstruction and was transferred to [facility] ICU. She underwent a Gastrografin challenge which demonstrated no contrast in the colon. However, this morning on rounds thepatient was actively having a bowel movement. Initial plan was to take the patient to the OR in viewof failed Gastrografin, but in the setting of patient having a bowel movement we will plan to monitor her and defer OR for the moment. Overnight, no acute events. Patient reports feeling well and continues to pass stools. Hemodynamics have been stable, and I/O shows adequate urine output with minimal NG tube output is and 2 bowel. A labs this a.m. a non concerning. Overall impression is that the patient is recovering as expected. The major plan today is to remove her NG tube and start her on a clear liquid diet. Otherwise, please see below for detailed plans. PLAN Activity: As tolerated Antibiotics: Ceftriaxone (stopped) Cultures: None Diet: CLD Drains: none Anticoagulation: Lovenox 40 mg IVF: IVL Bowel regimen: None Pain: Tylenol, Dilaudid, oxycodone Consults: Psych Disposition: Home Barriers to discharge: Plan to remove her NG tube Plan to start her on a clear liquid diet and see how she tolerates this Plan to D/C IV fluids Patient is being cared for by the HSS-B team. Please page [phone] (HSS-B) with any questions or concerns. Plans were discussed with Dr. Mayer, who was in agreement Thao Yeager Resident Physician PGY-1 General Surgery [email or web address] ESS MOLD TECHNICIAN Salty Mustafa, P.T.A. - 04/26/2021 1:24 PM CST 04/26/21 1322 Reason Therapy Missed Reason Therapy Missed Patient refused Pt declined therapy with this tag writer due do feel exposed and not comfortable with a male therapist. Lance Newton M.D. - 04/25/2021 12:24 PM CST ASSESSMENT / PLAN Reviewed, discussed, examined, agree with documentation of Surgical Critical Care Team. Overall, patient is doing really well. Arterial blood gas is probably at or near baseline for her which was 72/43/7.44/+6. Mental status is at or near baseline as well as respiratory status. NG tube had about 1.5 Lout. She had Gastrografin challenge which initially she did not pass but is now passing stool and gas and has contrast in her left colon. Chest x-ray shows no change. She is on BiPAP for her obstructive sleep apnea. She had been empirically placed on antibiotic therapy for aspiration pneumonia. However, she is afebrile and normal white blood cell count. We will stop those antibiotics at this time. They were started elsewhere. Our Psychiatry colleagues will see her for her schizophrenia medication asit is possible that she has motility issues related to this medication as a cause for her bowel obstruction. She has not had any prior abdominal surgical procedures. Per our protocol, she will need a CT enterography in the outpatient setting. We are all in agreement that patient could be transferred to a floor setting today. Discussed with my colleague, Dr. Jonathan Mayer, and [facility] Surgical B Service. Lance Armstrong M.D. CT CT Job ID: [id number] ESS MOLD TECHNICIAN Melissa Soria, Pharm.D. - 04/25/2021 9:09 AM CST Pharmacist Progress Note Reason for admission: SBO, last BM 2 days prior PMH: schizophrenia ASSESSMENT and PLAN: Home meds: Per h, holding home clozapine, metformin Neuro: Psych following. Clozapine level ordered. Holding doses for now. Home citalopram, Abilify resumed, ANC [id number] (reported 04/24, q4wk car checker). Psych is following and may need to re-titrate as been interrupted for > 2 days. Resp: On O2 upon arrival, concern for aspiration event at outside facility. CV: MAP > 65. Home diltiazem resumed as IR Neph: IV fluids ID: Started on ceftriaxone due to concern for aspiration PNA, DCd as afebrile, no leukocytosis GI: Passing Gastrografin challenge, plan to medically manage SBO. Note, home metamucil can aggravateGI symptoms and complications from clozapine and should be discontinued upon discharge. Endo: BG <180 Proph: Enoxaparin 40 mg PPI (home) Pharm. CoryDElvi Cassandra Cobian M.B.B.S. - 04/25/2021 7:14 AM CST S B SERVICE PROGRESS NOTE SUBJECTIVE Postop Day: Day of Surgery Hospital Day: LOS: 1 day SUBJECTIVE Sarah Reyes was seen and examined this morning. No acute events overnight. Pain is well controlled. Tolerating NPO/NGT without any nausea or vomiting. Reports having flatus and bowel movements. Voiding with a Smallwood catheter. She is ambulating well and slept well last night. Denies fever, chills, hematemesis, melena, chest pain, shortness of breath. OBJECTIVE Vitals Temperature: [36.5 ??C-37.2 ??C] 36.8 ??C Heart Rate: [94-121] 98 Resp Rate: [14-38] 17 Blood Pressure: (107-160)/(65-131) 118/80 SpO2: [88 %-97 %] 97 % Flow Rate (L/min): [3 L/min-15 L/min] 3 L/min Height: [160 cm] 160 cm Weight: [97.7 kg] 97.7 kg BSA (Calculated - sq m): [2.08 sq meters] 2.08 sq meters BMI (Calculated): [38.2 kg/m??] 38.2 kg/m?? Pulse Rate: [94-122] 98 I/O Intake/Output Summary (Last 24 hours) at 04/25/2021 0714 Last data filed at 04/25/2021 0700 Gross per 24 hour Intake 3533 ml Output 2179 ml Net 1354 ml Labs Recent Results (from the past 24 hour(s)) CBC with Differential, Blood Collection Time: 04/24/21 12:41 PM Result Value Hemoglobin 12.7 Hematocrit 40.6 Erythrocytes 4.45 MCV 91.2 RBC Distrib Width 14.2 Platelet Count 196 Leukocytes 5.8 Neutrophils 4.94 Lymphocytes 0.39 (L) Monocytes 0.43 Eosinophils <0.03 Basophils <0.03 Thromboelastograph, Kaolin, Blood Collection Time: 04/24/21 12:55 PM Result Value R, Kaolin, TEG 11.5 (H) K, Kaolin, TEG 2.0 (H) Angle, Kaolin, TEG 62.7 (L) MA, Kaolin, TEG 74.1 Ly30, Kaolin, TEG 1.1 Lactate Collection Time: 04/24/21 12:57 PM Result Value Lactate, P 2.4 (H) Troponin T, Baseline, 5th gen Collection Time: 04/24/21 12:57 PM Result Value Troponin T, Baseline, 5th gen 11 (H) Basic Metabolic Panel Collection Time: 04/24/21 12:57 PM Result Value Potassium, S 4.1 Sodium, S 148 (H) Chloride, S 112 (H) Bicarbonate, S 23 Anion Gap 13 BUN (Blood Urea Nitrogen), S 35 (H) Creatinine, S 0.95 eGFR-Non Black/ 63 eGFR-Black/ 72 Calcium, Total, S 9.2 Glucose, S 145 (H) CBC without Differential Collection Time: 04/24/21 12:57 PM Result Value Hemoglobin 12.8 Hematocrit 41.2 Erythrocytes 4.54 MCV 90.7 RBC Distrib Width 14.2 Platelet Count 199 Leukocytes 5.9 Type and Screen (with reflex Antibody ID) Collection Time: 04/24/21 12:57 PM Result Value ABORh O Pos Antibody Screen Negative Type & Screen Expiration 04/27/2021 23:59 Testing Location [place] Hepatic Function Panel Collection Time: 04/24/21 12:57 PM Result Value Bilirubin, Total, S 0.5 Bilirubin, Direct, S <0.2 Aspartate Aminotransferase (AST), S 18 Alanine Aminotransferase (ALT), S 21 Alkaline Phosphatase, S 123 (H) Albumin, S 4.2 Protein, Total, S 6.7 Blood Gas with Coox, Arterial Collection Time: 04/24/21 1:00 PM Result Value pO2 72 (L) pCO2 40 pH 7.40 Base Excess 1 HCO3 25 Hemoglobin, B 12.6 O2Hb 92.3 (L) COHb 1.1 MetHb 1.1 CtO2 16.4 (L) Arterial Sample Site R-Radial Calcium, Ionized Collection Time: 04/24/21 1:00 PM Result Value Calcium, Ionized, B 5.00 Patient Status Collection Time: 04/24/21 1:00 PM Result Value O2 Flow 3.0L Device NC Spont. breaths/min 27 SARS Coronavirus 2, RNA, Rapid POC, V Asymptomatic Collection Time: 04/24/21 2:29 PM Specimen: Nasopharynx; Varies Result Value SARS Coronavirus-2, RNA, Rapid POC, V Undetected SARS Coronavirus 2, Source Nasopharynx Troponin T, 2H/6H, 5th Gen Collection Time: 04/24/21 2:55 PM Result Value Troponin T, 2 hr, 5th gen 10 2H Delta -1 2H Delta Interp Not Changing Troponin T, 6 hr, 5th gen CANCELED Basic Metabolic Panel Collection Time: 04/24/21 6:57 PM Result Value Potassium, P 3.7 Sodium, P 144 Chloride, P 107 Bicarbonate, P 27 Anion Gap, P 10 BUN (Blood Urea Nitrogen), P 34 (H) Creatinine, P 0.65 eGFR-Black/ >90 eGFR Non-Black/ >90 Calcium, Total, P 8.9 Glucose, P 146 (H) CBC without Differential Collection Time: 04/24/21 6:57 PM Result Value Hemoglobin 11.7 Hematocrit 36.7 Erythrocytes 4.05 MCV 90.6 RBC Distrib Width 14.1 Platelet Count 185 Leukocytes 5.6 Lactate Collection Time: 04/24/21 6:57 PM Result Value Lactate, P 1.4 Prothrombin Time (PT) Collection Time: 04/24/21 6:57 PM Result Value Prothrombin Time, P 13.5 (H) INR 1.2 Glucose, POCT Collection Time: 04/25/21 12:06 AM Result Value Glucose, POCT, B 118 Last Intake NPO Glucose, POCT Collection Time: 04/25/21 3:34 AM Result Value Glucose, POCT, B 129 Last Intake NPO Thromboelastograph, Kaolin, Blood Collection Time: 04/25/21 4:38 AM Result Value R, Kaolin, TEG 5.5 K, Kaolin, TEG 1.5 Angle, Kaolin, TEG 72.5 MA, Kaolin, TEG 73.9 Ly30, Kaolin, TEG 1.3 Basic Metabolic Panel Collection Time: 04/25/21 4:40 AM Result Value Potassium, S 4.2 Sodium, S 147 (H) Chloride, S 111 (H) Bicarbonate, S 27 Anion Gap 9 BUN (Blood Urea Nitrogen), S 35 (H) Creatinine, S 0.68 eGFR-Non Black/ >90 eGFR-Black/ >90 Calcium, Total, S 8.8 Glucose, S 133 *Note: Due to a large number of results and/or encounters for the requested time period, some results have not been displayed. A complete set of results can be found in Results Review. Cultures: Results for orders placed or performed during the hospital encounter of 04/24/21 (from the past 72 hour(s)) SARS Coronavirus 2, RNA, Rapid POC, V Asymptomatic Specimen: Nasopharynx; Varies Result Value SARS Coronavirus-2, RNA, Rapid POC, V Undetected SARS Coronavirus 2, Source Nasopharynx Physical Exam General: Alert and oriented, no acute distress Cardiopulmonary: unlabored breathing on 3 L nasal cannula oxygen Abdomen: soft, distended, mild tenderness present. Diagnostics: I have reviewed the relevant diagnostics which include labs, imaging, or other testing as appropriate. 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 Reyes is a 66 y.o. female with past medical history significant for schizophrenia on clozapine, diabetes mellitus with polyneuropathy, morbid obesity who presented to the outside ED with complains of abdominal pain, abdominal distention and respiratory distress. She was found to have a small- bowel obstruction and was transferred to [facility] ICU. She underwent a Gastrografin challenge which demonstrated no contrast in the colon. However, this morning on rounds the patient was actively having a bowel movement. Initial plan was to take the patient to the OR in view of failed Gastrografin, but in the setting of patient having a bowel movement we will plan to monitor her and defer OR for the moment. Overnight, no acute events. Patient reports feeling better. Hemodynamics have been stable, and I/O shows adequate urine output, NG tube output is 1350 cc. Her labs this a.m. a non concerning. She continues to require BiPAP at night and 3 L nasal cannula oxygen for her respiratory status. Overall impression is that the patient is recovering as expected. The major plan today is monitor her NG output, symptoms. Otherwise, please see below for detailed plans. PLAN Activity: As tolerated Antibiotics: Ceftriaxone (stopped) Cultures: None Diet: NPO Drains: NG tube, maintain to low intermittent suction Anticoagulation: Lovenox 40 mg IVF: D5 0.9 NaCl at 75 cc/hr Bowel regimen: None Pain: Tylenol, Dilaudid, oxycodone Consults: Psych Disposition: Home Barriers to discharge: Plan to monitor her NG tube output Plan to transfer her out of the ICU to the floor Appreciate recommendations from the psych team, will follow medication recommendations per psych team. Appreciate the cares from the ICU team Patient is being cared for by the S-B team. Please page [phone] (HSS-B) with any questions or concerns. Plans were discussed with Dr. Mayer, who was in agreement Thao Yeager Resident Physician PGY-1 General Surgery [email or web address] ESS MOLD TECHNICIAN Sofia Knight APRN, C.N.P., D.N.P. - 04/25/2021 1:29 AM CST SUBJECTIVE Brief Summary: Ms. Reyes is a 66 year old female with a PMH of schizophrenia, left lung adenocarcinoma s/p wedge lung resection 2018, T2DM, metabolic syndrome, mitral valve insufficiency and KEVIN who presented to the [facility] Emergency Department on 04/23 for abdominal pain and vomiting for2 days. CT A/P demonstrated high-grade obstruction in her right lower quadrant. She was admitted overnight and transferred to [facility] on 04/23 due to respiratory distress most likely due to possible aspiration pneumonia. Upon admission to the SICU she was initiated on Gastrografin challenge. Interval Events: - patient seen and examined, chart reviewed - discussed with Dr. Armstrong and SICU team on multidisciplinary team - Failed GGC OBJECTIVE I have reviewed the current vital sign data as applicable. VITAL SIGNS Temperature: [36.5 ??C-37.2 ??C] 36.9 ??C Heart Rate: [111-121] 111 Resp Rate: [17-38] 24 Blood Pressure: (120-160)/(68-129) 121/69 SpO2: [92 %-97 %] 95 % Flow Rate (L/min): [3 L/min-15 L/min] 3 L/min Pulse Rate: [111-122] 111 I/O last 3 completed shifts: In: 2439.7 Out: 1725 [Urine:475; Emesis or Enteric Tube:1250] PHYSICAL EXAM Physical Exam General: no acute distress, resting in bed Neurologic: PERRLA, anicteric sclera Cardiovascular: S1, S2. No murmur. Regular rate, rhythm. Cap refill < 3 seconds. Pulmonary: lung sounds clear bilaterally, no wheeze, rales, rhonchi. Non labored. Gastroenterology: bowel sounds absent. Soft, non tender. Slightly distended. Extremities: no peripheral edema. CABRAL. Pedal pulses 2 + bilaterally. Skin: no rashes, sores, ulcerations. Psychologic: affect: appropriate, not anxious, not altered, no hallucination. DIAGNOSTICS I have reviewed relevant laboratory, imaging, and other diagnostics as applicable. ASSESSMENT / PLAN PLAN BY SYSTEMS: HEMODYNAMICS/CV: - HR: 101-118; SBP: 120-130; MAP: >85 - lactate: 1.4 @ 1900 04/24 - EKG: ST - ECHO: None on file - home meds: diltiazem 120 QHS for HTN - current meds: diltiazem 30 Q 6 Plan: Currently hemodynamically stable with no concerns. Continue diltiazem as scheduled. Would transition to IV route if uncontrolled heart rate or HTN. HR improved with fluids overnight NEUROLOGIC: - GCS: 15; RASS: 0 - pain medications: Oxycodone PRN, dilaudid IV for breakthrough pain - home meds: Ambien 5 mg QHS, Abilify 10 mg daily, Celexa 20 mg daily, Clozaril 300 mg QHS - Psych consulted for assistance in management of psychiatric medications. ??Recommend continuing her other psychotropic medications unchanged. If in the short term there is re-emergence of psychotic symptoms we can always increase her Abilify. Recommend holding Clozaril. - Clozaril level pending Plan: F/u Clozaril level and discuss re-Initiation with psychiatry. Continue current medications. Discontinued PO tylenol to minimize clamping periods due to high NG output. PULMONARY: - 2 L NC v BiPAP at night (home use) - CXR: Pending Plan: Continue to wean oxygen to maintain saturation >92%. Continue BiPAP at night, attempt to get home machine if possible. Respiratory hygiene with IS and mobilization. RENAL: - I/O: +1.8 since admission - UOP: 599 - Smallwood: In place accurate I&O - mIVF: LR @ 200, increased to match high NG output and for low urine output - Cr: pending - continue to follow renal function, electrolytes, and UOP closely. Continue maintenance fluids until obstruction resolves. Consider 1:1 replacements of NG losses. ID: - Tmax: 36.8 - WBC: 5.5 - antibiotics: Ceftriaxone 2 g daily for HAP - cultures: - COVID negative on admission Plan: Continue to monitor fever curve, WBC. Continue ceftriaxone. HEME: - Hgb: 10.9 - Plts: 186 Plan: No concern for bleeding VASCULAR ACCESS: - PIV GI/NUTRITION: - NGT: LCS; 1.3L out - diet: NPO, meds okay - bowel regimen: bisacodyl PRN, hold remainder until resolution of obstruction - Failed GGC overnight Plan: Discuss with surgical team plan for today. Failed GGC overnight with contrast failing to make it to large bowel. ENDOCRINE: - glucose: 118 - insulin: Not needed Plan: Continue glucose checks with BMP and as needed. 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 - 2021 4:34 PM CST Pharmacist Progress Note Reason for admission: SBO, last BM 2 days prior PMH: schizophrenia ASSESSMENT and PLAN: Home meds: Per h, holding home clozapine, metformin Neuro: Psych following. Clozapine level ordered. Holding doses for now. Home citalopram, Abilify resumed, ANC 4940 (reported 04/24, q4wk car checker) Resp: On O2 upon arrival, concern for aspiration event at outside facility. CV: MAP > 65. Home diltiazem resumed as IR Neph: IV fluids ID: Started on ceftriaxone due to concern for aspiration PNA GI: Strict NPO. Gastrografin protocol per HSS. Note, home metamucil can aggravate GI symptoms and complications from clozapine and should be discontinued upon discharge. Endo: BG <180 Proph: SQH, PPI (home) Melissa Maurisio Soria. ESS MOLD TECHNICIAN Chuck Armstrong M.D. - 2021 2:30 PM CST SUBJECTIVE Ms. Reyes was seen and examined by the SICU team in her room this morning. She reports her last bowel movement was 2 days ago. She states her abdominal pain and nausea improved with enteric tube placement at the outside facility. She denies any previous surgical history. She denies any anticoagulation or steroid use. The patient is not smoke tobacco or drink alcohol. She has not had symptoms like this before. OBJECTIVE VITAL SIGNS Height: 160 cm, Weight: 97.7 kg, BMI (Calculated): 38.2 kg/m??, Blood Pressure: 129/73, Heart Rate: (!) 114, Pulse Rate: (!) 114, Resp Rate: (!) 28, Temperature: 36.5 ??C, SpO2: 95 % I/O last 3 completed shifts: In: 239.7 Out: 158 [Urine:158] Constitutional General: She is not in acute distress. Appearance: She is not ill-appearing. Cardiovascular Rate and Rhythm: Regular rhythm. Tachycardia present. Pulmonary Effort: Pulmonary effort is normal. No respiratory distress. Abdominal General: There is distension. Palpations: Abdomen is soft. There is no mass. Tenderness: There is abdominal tenderness (generalized). There is no guarding or rebound. Hernia: No hernia is present. Musculoskeletal General: Normal range of motion. Skin General: Skin is warm. Capillary Refill: Capillary refill takes less than 2 seconds. Neurological General: No focal deficit present. Mental Status: She is alert and oriented to person, place, and time. DIAGNOSTICS Recent Results (from the past 24 hour(s)) Lactate Collection Time: 04/24/21 12:57 PM Result Value Lactate, P 2.4 (H) Troponin T, Baseline, 5th gen Collection Time: 04/24/21 12:57 PM Result Value Troponin T, Baseline, 5th gen 11 (H) Basic Metabolic Panel Collection Time: 04/24/21 12:57 PM Result Value Potassium, S 4.1 Sodium, S 148 (H) Chloride, S 112 (H) Bicarbonate, S 23 Anion Gap 13 BUN (Blood Urea Nitrogen), S 35 (H) Creatinine, S 0.95 eGFR-Non Black/ 63 eGFR-Black/ 72 Calcium, Total, S 9.2 Glucose, S 145 (H) CBC without Differential Collection Time: 04/24/21 12:57 PM Result Value Hemoglobin 12.8 Hematocrit 41.2 Erythrocytes 4.54 MCV 90.7 RBC Distrib Width 14.2 Platelet Count 199 Leukocytes 5.9 Type and Screen (with reflex Antibody ID) Collection Time: 04/24/21 12:57 PM Result Value ABORh O Pos Antibody Screen Negative Type & Screen Expiration 04/27/2021 23:59 Testing Location [place] Hepatic Function Panel Collection Time: 04/24/21 12:57 PM Result Value Bilirubin, Total, S 0.5 Bilirubin, Direct, S <0.2 Aspartate Aminotransferase (AST), S 18 Alanine Aminotransferase (ALT), S 21 Alkaline Phosphatase, S 123 (H) Albumin, S 4.2 Protein, Total, S 6.7 Blood Gas with Coox, Arterial Collection Time: 04/24/21 1:00 PM Result Value pO2 72 (L) pCO2 40 pH 7.40 Base Excess 1 HCO3 25 Hemoglobin, B 12.6 O2Hb 92.3 (L) COHb 1.1 MetHb 1.1 CtO2 16.4 (L) Arterial Sample Site R-Radial Calcium, Ionized Collection Time: 04/24/21 1:00 PM Result Value Calcium, Ionized, B 5.00 Patient Status Collection Time: 04/24/21 1:00 PM Result Value O2 Flow 3.0L Device NC Spont. breaths/min 27 ASSESSMENT / PLAN #1 Obstruction Intestinal (HCC) Cardiovascular: Map goal greater than 65. EKG to rule out underlying cardiac abnormality. Provide aggressive fluid resuscitation in the setting of ongoing small bowel obstruction and tachycardia. Labs pending at the time of this dictation. Neuro: IV pain meds available p.r.n., the patient should be strict NPO for gastric decompression. History of schizophrenia, so Psychiatry has been consulted to assist with psychiatric medication management. We appreciate the recommendations. Pulmonary: Patient was on a couple L of O2 via face mask upon arrival. Saturating mid 90s. Continue to monitor as apparently there is a concern for aspiration event at the outside facility. ABG pending. Chest x-ray pending. Renal: IV fluids for aggressive resuscitation and monitor UOP and lactate. BMP pending. GI: Strict NPO with NG tube placed for gastric decompression. Gastrografin protocol per HSS. Monitorfor her bowel function. Id: Concern for aspiration pneumonia at the outside facility, so patient was started on ceftriaxone. Heme: Follow-up CBC no concerns for bleeding at this point. The patient denies any anticoagulation. Endocrine: No history of diabetes or steroids. MSK/skin: Encourage ambulation. Prophylaxis: Subcu heparin t.i.d. Dispo: SICU ESS MOLD TECHNICIAN Oneal Robison Pharm.D., R.Ph. - 2021 1:46 PM CST Images from the original note were not included. Admission Medication History Note Adherence issues: No concerns Medication list source: Patient, family member, outside records Medication related information: Last clozapine dose was 04/22 per patient report. Clozapine dose was updated from 450 mg daily to 350 mg daily. Ability only once daily and discontinued melatonin. Prior to Admission Medications Med List Status: Pharmacy Complete Set By: Oneal Robison, Pharm.D., R.Ph. at 2021 1:41 PM Taking? Last Dose Informant Start Date End Date LT acetaminophen (TYLENOL) 500 mg tablet More than a month 08/16/16 -- Take 500 mg by mouth every 6 (six) hours as needed for pain. ADVAIR DISKUS 250-50 mcg/act diskus inhaler Past Week 06/12/18 -- Inhale 1 puff 2 (two) times a day. albuterol (PROVENTIL HFA,VENTOLIN HFA) 90 mcg/actuation inhaler Unknown 04/23/18 -- Inhale 2 puffs every 4 (four) hours as needed for wheezing or shortness of breath. ARIPiprazole (ABILIFY) 10 mg tablet Past Week 12/26/20 -- Take 1 tablet by mouth every morning. citalopram (CeleXA) 20 mg tablet Past Week 05/26/18 -- Take 20 mg by mouth daily. cloZAPine (CLOZARIL) 100 mg tablet Past Week 05/26/18 -- Take 300 mg by mouth at bedtime. cloZAPine (CLOZARIL) 50 mg tablet Past Week 05/26/18 -- Take 50 mg by mouth at bedtime. dilTIAZem LA (CARDIZEM LA) 120 mg 24 hr tablet Past Week 04/23/18 -- Take 120 mg by mouth at bedtime. fluticasone (FLONASE) 50 mcg/actuation nasal spray Past Week 05/11/18 -- Administer 2 sprays into each nostril at bedtime. ipratropium-albuterol (DUO-NEB) 0.5-2.5 mg/3 mL nebulizer solution Unknown 04/23/18 -- Inhale 3 mL 4 (four) times a day as needed for wheezing or shortness of breath. metFORMIN (GLUCOPHAGE) 500 mg tablet Past Week Self -- -- Take 500 mg by mouth at bedtime. montelukast (SINGULAIR) 10 mg tablet Past Week 04/23/18 -- Take 10 mg by mouth at bedtime. MYRBETRIQ 50 mg 24 hr tablet Past Week 05/24/18 -- Take 50 mg by mouth at bedtime. omeprazole (PriLOSEC) [address] capsule Past Week 05/24/18 -- Take 20 mg by mouth every morning before breakfast. psyllium (METAMUCIL) 0.52 gram capsule Past Week -- -- Daily vitamin E 400 unit capsule Past Week 08/16/16 -- Take 400 Units by mouth daily. zolpidem (AMBIEN) 5 mg tablet Past Week Self -- -- Take 5 mg by mouth at bedtime as needed for sleep. ESS MOLD TECHNICIAN Ruiz Brownlee M.S., O.T. - 2021 1:13 PM CST 04/24/21 1313 Reason Therapy Missed Reason Therapy Missed Medical hold OT/PT orders received, chart review completed. Patient recently admitted with ongoing medical workup. Will hold occupational/physical therapy and initiate plan of care as appropriate. ESS MOLD TECHNICIAN Chuck Wetzel L.R.T. - 2021 12:14 PM CST Patient is a 66 y.o. female admitted on 2021 Alert Information: Plan of Care: Patient on nasal cannula, ambu bag and mask present. Principal Problem Obstruction Intestinal (HCC) Oxygen Therapy $Delivery Method: Nasal cannula Social History Tobacco Use Smoking Status Former Smoker ??? Packs/day: 1.00 ??? Years: 25.00 ??? Pack years: 25.00 ??? Types: Cigarettes ??? Quit date: 2004 ??? Years since quittin.9 Smokeless Tobacco Never Used No results for input(s): PO2 ART, PCO2 ART, PH ART in the last 24 hours. ESS MOLD TECHNICIAN documented in this encounter H&P Notes Sudarshan Mayer M.D. - 04/25/2021 12:07 PM CST SUBJECTIVE Reviewed patient's condition and plans for management with [facility] on team rounds this morning. Patient interviewed and examined. Ms. Reyes failed for Gastrografin challenge. Abdominal x-ray at approximately 8:00 a.m. for administration of Gastrografin revealed no contrast within the colon. Overnight plans were made for laparoscopic exploration this morning. However repeat abdominal x-ray at 8:25 a.m. revealed contrast and abdominal exploration has been deferred for now. The time of our visit this morning patient was sitting on commode passing stool. Patient's condition is appropriate for change in status from ICU to general care today. EXAM General: Alert and conversant. Abdomen: Less distended. Soft. ASSESSMENT / PLAN #1 Small-bowel obstruction versus clozapine-induced ileus Bowel function has returned. Nasogastric tube output 1350 mL. Will assess response to clamping of nasogastric tube today. #2 Aspiration pneumonitis Bilateral infiltrates persist. Given that aspirated contents will have been succus entericus with overgrown microbial aroldo in the setting of bowel obstruction, continuing to treat with ceftriaxone andmetronidazole. #3 Schizophrenia Holding clozapine. Receiving Celexa and aripiprazole. #4 Medical problems 1. Asthma 2. KEVIN on home BiPAP 3. Left lung cancer post wide resection, 2018 4. Diabetes mellitus with polyneuropathy, hemoglobin A1c 5.7 in October 2020 5. Mitral regurgitation 6. Former smoker 7. BMI 38.3 8. Schizophrenia ESS MOLD TECHNICIAN Alexis Peraza P.A.-C. - 2021 2:01 PM CST REFERRAL SOURCE [facility] REASON FOR ADMISSION SBO and possible aspiration pneumonia with respiratory distress HISTORY OF PRESENT ILLNESS Ms. Reyes is a 66 year old female with a PMH of schizophrenia, left lung adenocarcinoma s/p wedge lung resection 2018, T2DM, metabolic syndrome, mitral valve insufficiency and KEVIN who presented to [facility] Emergency Department on 04/23 for abdominal pain and vomiting for [address] A/P demonstrated high-grade obstruction in her right lower quadrant. She was admitted overnight and transferred to [facility] on 04/23 due to respiratory distress most likely due to possible aspiration pneumonia. REVIEW OF SYSTEMS A comprehensive review of systems was negative except for: Gastrointestinal: positive for abdominal pain and constipation PAST MEDICAL Past Medical History: Diagnosis Date ??? Apnea Sleep Obstructive 05/15/2018 ??? Asthma Mild Intermittent (HCC) 08/11/2015 ??? Asthma NOS ??? Diabetes Mellitus Type 2 (HCC) 05/05/2018 ??? Edema Localized 09/27/2016 ??? Malignant Neoplasm Of Lung Adenocarcinoma Left (HCC) 05/05/2018 ??? Metabolic Syndrome 06/12/2016 ??? Morbid obesity (CMS/HCC) 12/26/2014 ??? Nonrheumatic Mitral Valve Insufficiency 08/27/2017 ??? 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 Schizophrenia (HCC) 05/05/2018 SURGICAL HISTORY Past Surgical History: Procedure Laterality Date ??? BRONCHOSCOPY FLEXIBLE: EBUS TBNA ENDOBRONCHIAL ULTRASOUND NEEDLE ASPIRATION N/A 06/30/2018 Procedure: Bronchoscopy Flexible: Endobronchial Ultrasound Guided Transbronchial Needle Aspiration;Surgeon: Keaton Noe M.D.; Location: [facility] ??? VATS - WEDGE RESECTION LUNG Left 08/07/2018 Procedure: THORACOSCOPY, WEDGE RESECTION LUNG.; Surgeon: Fany Lyn M.D.; Location: [facility] SOCIAL HISTORY Social History Socioeconomic History ??? Marital status: Single Spouse name: Not on file ??? Number of children: Not on file ??? Years of education: Not on file ??? Highest education level: Not on file Occupational History ??? Not on file Tobacco Use ??? Smoking status: Former Smoker Packs/day: 1.00 Years: 25.00 Pack years: 25.00 Types: Cigarettes Quit date: 2004 Years since quittin.9 ??? Smokeless tobacco: Never Used Substance and Sexual Activity ??? Alcohol use: No ??? Drug use: No ??? Sexual activity: Defer Other Topics Concern ??? Not on file Social History Narrative ??? Not on file Social Determinants of Health Financial Resource Strain: Not on file Food Insecurity: Not on file Transportation Needs: Not on file Physical Activity: Not on file Stress: Not on file Social Connections: Not on file Intimate Partner Violence: Not on file Housing Stability: Not on file FAMILY HISTORY No family history on file. OBJECTIVE I have reviewed the current vital sign data as applicable to this admission. PHYSICAL EXAM General appearance: acutely ill appearing, in mild distress and cooperative Neurologic: alert, oriented and motor and sensory grossly intact HEENT: normocephalic, without obvious abnormality, conjunctivae/corneas clear, extraocular movementsand nasogastric tube in place Chest: clear to auscultation anteriorly and lungs symmetric Heart: sinus tachycardia, no murmurs Abdomen: distended, soft and bowel sounds absent Extremities: extremities normal, warm and well-perfused, no edema, redness or tenderness in the calves or thighs Skin: normal without ulcer DIAGNOSTICS I have reviewed relevant laboratory, imaging, and other diagnostics as applicable. ASSESSMENT / PLAN PLAN BY SYSTEMS: HEMODYNAMICS/CV: - HR: 110s; SBP: 120s; MAP: 85 - lactate: 2.4 - EKG: Sinus tachycardia Premature ventricular complexes Cannot rule out Inferior infarct. - troponin: 10 - home medications: Diltiazem 120 mg q.d. for a-fib - current medications: Diltiazem 30 mg q.6 hours Plan: Continue diltiazem 30 mg q.6 hours for atrial fibrillation, monitor rate rhythm, will continueresuscitation with mIVF and boluses as needed for sinus tachycardia NEUROLOGIC: - GCS: 15; RASS: 0; CAM ICU: negative - schizophrenia on clozapine 300 mg q.h.s., Abilify 10 mg every morning and citalopram 20 mg q.d., psych was consulted for recommendations in light of small-bowel obstruction who suggests holding the clozapine due to possible decreased gut motility - pain medications: Acetaminophen 1000 mg Q 6 hours, oxycodone 2.5 mg and 5 mg p.r.n. - sleep: Melatonin 3 mg Plan: Clozapine level ordered for morning lab, if re-emergence of psychotic symptoms Psych recommends increasing her Abilify PULMONARY: - NC 4 L/min, 95%, RR 20s - AB.40, CO2 40, O2 72, base excess 1, HCO3 25 - CXR: Since 04/23/2021, increased airspace opacities in the right upper lobe suspicious for pneumonitis. Other bilateral airspace opacities/atelectasis are not significantly changed. Enteric tube tip in the stomach with side port just above the GE junction; advancement recommended. - history of left lung adenocarcinoma s/p wedge lung resection 2018 - home medications: Advair Diskus 250-50, montelukast 10 mg q.h.s., albuterol q.4 hours p.r.n., DuoNeb 4 times daily p.r.n. Plan: BiPAP QHS for KEVIN, encourage aggressive pulmonary hygiene, concern for aspiration pneumonia, restarted home medication RENAL: - I/O: +250 mL since admission - UOP: 0.4 mL/kg/hr - mIVF: 100 mL/hr - 1 L LR bolus at 1800 for sinus tachycardia - Cr. 0.95, Na 148, Cl 112, BUN 35, other WNL Plan: continue fluid resuscitation with mIVF and boluses as needed, monitor electrolytes and UOP ID: - Tmax: 37.2 - WBC: 5.9 - antibiotics: cefepime 2 g stop date 05/01 - cultures: - sputum cultures 04/24: NGTD Plan: cefepime started empirically for CAP, sputum cultures sent HEME: - Hgb: 12.8 - Plts: 199 - INR: pending - TEG: R time 11.5, K time 2.0, Angle 62.7 Plan: no FFP administered for TEG derangement because no surgery is indicated at this time. Continueto monitor hemoglobin. VASCULAR ACCESS: - 2x PIV GI/NUTRITION: - NGT: LIS for gastrografin challenge - diet: NPO - bowel regimen: MiraLAX, senokot, bisacodyl PRN - drains: none Plan: gastrografin challenge for SBO ENDOCRINE: - glucose: 145 - insulin: none - steroids: none - diabetes mellitus with polyneuropathy, hemoglobin A1c 5.7 10/2020 Plan: q4h glucose checks, continue to reassess need for insulin therapy MUSCULOSKELETAL: - PMR consulted - activity: as tolerated SKIN: - repositioning per nursing PROPHYLAXIS: - DVT: heparin 5000 units TID - GI: lansoprazole 30 mg QD (home medication) CODE STATUS: - Full code, discussed with the patient DISPOSITION: - SICU #1 Obstruction Intestinal (HCC) ESS MOLD TECHNICIAN Sudarshan Mayer M.D. - 2021 2:01 PM CST HISTORY OF PRESENT ILLNESS Patient accepted in transfer overnight by my colleague, Dr. Jeanie Flores. I received sign-out from Dr. Flores this morning. Patient interviewed and examined. I am seeing patient with Drs. Olmstead and Kodi; please see their documentation for additional details. Ms. Reyes is a 66-year-old woman with schizophrenia who has experienced 2 days of abdominal pain and distention associated with nausea and emesis. Yesterday she developed respiratory distress and presented to [facility] emergency department. PE protocol CT scan was negative. CT scan of abdomen suggested small-bowel obstruction and patient was transferred. CT shows marked distension of stomach and proximal small bowel. Small bowel measures up to 5 cm in diameter. There is a transition to collapsed bowel in the anterior, mid-central false pelvis - [id number], image [id number]. Patient is a very poor historian. She seems confused at times. She has no apparent Abdominal surgical history. PAST MEDICAL HISTORY 1. Asthma 2. KEVIN on home BiPAP 3. Left lung cancer post wide resection, 2018 4. Diabetes mellitus with polyneuropathy, hemoglobin A1c 5.7 in October 2020 5. Mitral regurgitation 6. Former smoker 7. BMI 38.3 8. Schizophrenia EXAM General: Alert and conversant but at times confused. Is oriented. Abdomen: Distended with increased tympany. Soft. Nontender. ASSESSMENT / PLAN #1 Small-bowel obstruction CT reveals some partial swirling of mesentery, but at present we have no other worrisome signs. No acidosis by arterial blood gas analysis. Lactate minimally elevated at 2.4. White blood count normal in [place]. Will insure adequate volume resuscitation. Discussed with ICU team. Will begin Gastrografin challenge. #[address] reveals fluid-filled esophagus. Chest x-ray reveals bilateral pulmonary infiltrates, these have progressed in the right upper lobe over the last 24 hours. ICU team has initiated ceftriaxone and metronidazole. #3 Schizophrenia Will hold clozapine. ADDENDUM 1530 patient has remained normotensive; however, heart rate remains in the 1 teens. Urine output has been adequate, 28 and 42 mL each of the last 2 hours. BUN creatinine ratio is 36.8 with creatinine 0.95.Patient is hypernatremic with sodium 148 and chloride 112. ICU team plans volume resuscitation. White blood count is 5.9. Albumin of 4.2 noted. Gastrografin administered at 2:37 p.m. ESS MOLD TECHNICIAN documented in this encounter Consult Notes Kim Browne, Kevin.G.S.W., M.S.W. - 04/26/2021 11:22 AM CSTAssociated Order(s): IP CONSULT TO CARE MANAGEMENT Psychosocial Assessment SUBJECTIVE DEMOGRAPHIC INFORMATION Referral Source: Service/Provider Referral Reason: Discharge Planning Person(s) present during interview: Patient Previous Psychosocial Assessment : Yes, Date: 08/08/2018, completed by ISABEL Shaikh. Primary care clinic and provider: No primary care provider on file. They were advised of the various topics that will be assessed during this evaluation. They consentedto proceed. The information provided in the assessment is based on review of the medical record as well as the interview. They were advised that the content of this interview will be shared with the health care team. It was discussed that staff are mandated reporters and they reported understanding. HISTORY OF PRESENT ILLNESS Patient shares that she has been having abdominal pain since 04/23. She talks about how uncomfortable she was, though is feeling much better now. Patient informed social media assistant of all of the fluids shehas been given since presenting to the hospital, as well as the fact that she has now had bowel function which has alleviated her pain. SOCIAL HISTORY Family / Household: Patient lives with her sister and [id number]. She has never been norhad children. Spirituality / Caodaism / Culture: Not islam History: No Employment: Disabled Psychosocial Risk Factors impacting the patient: mental health Abuse, Neglect, Maltreatment, Trauma: Current: Patient denied. ENVIRONMENTAL SUPPORTS Current Living Situation: Multi-level home Anticipated modifications to the patient's home environment: None FUNCTIONAL STATUS (ADL's and IADL's) Dressing: independent Feeding: independent Bathing: independent Grooming: independent Toileting: independent Transfer to/from Bed, Chair, Etc.: independent Mobility: independent, though uses a walker at times when feeling tired Meal Prep: independent Medication Setup/Administration: independent Telephone Use: independent Housekeeping: independent Shopping: independent Managing Finances: independent Transportation: patient does not drive It is anticipated that the patient will need assistance with mobility and transportation use (drive car, use taxi/bus) ASSISTIVE DEVICES Patient has the following equipment: BiPAP/CPAP/VPAP and walker - front wheeled Patient anticipates potentially needing the following additional equipment: none Transportation needs: support from family/friends FORMAL AND INFORMAL RESOURCES The only formal resource identified by this patient is her psychiatrist. She notes having not seen her psychiatrist in approximately 2 years due to COVID-19, but states that she still speaks with her over the phone and is prescribed medications for her mental health. Informally, patient has great support from her sister and [id number] with whom she lives. FINANCES/INSURANCE Primary insurance: MEDICARE A AND B Secondary insurance: [place]ICA[place] Financial concerns: No ADVANCE DIRECTIVES Advance Directive: Patient does not have advance directive, does not want information OBJECTIVE Mental Health Spent time speaking with patient about her mental health. She endorses a diagnosis of schizophrenia which she has had her entire adult life. This is not particularly distressing to the patient and is managed by medication and family support. She does share that since hospitalization, her voices havebecome more prominent. She characterizes these as good voices which keep her company. She denies these voices ever being distressful or encouraging self-harm behaviors. She notes having one bad voice last evening that wished I would go blind but is not concerned about this at the present time. Patient does not wish for further resources or support regarding her mental health. She feels that her coping is adequate through the use of distraction (watching TV) or calling her psychiatrist. Suicide Risk and Safety Risk Assessment: Suicidal: No Homicidal: No Current Stressors Current hospitalization Mental health Coping Skills/Strengths Patient enjoys watching TV and spending time at home. She endorses great support from her sister [id number] whom she lives with. She notes that if things get particularly stressful, she will call her psychiatrist to talk through the situation. ASSESSMENT / PLAN DISCUSSION Social work consulted to meet with patient for discharge planning assistance. Met with patient at bedside to complete psychosocial assessment and initiate discharge planning discussions. Introduced self, role of inpatient social work, and limitations of confidentiality. She was agreeable to the visit. Discussed patient's reason for hospitalization and the events that have taken place since admission.Fortunately, she is feeling much better and feels that she is almost back to her baseline. We talkedabout her prior level of function and living conditions which patient is very fond of. Consistent informal support is provided by patient's sister and [id number]. She has a long history of schizophrenia with auditory hallucinations. This is managed through medication and support. She is not presently concerned or distressed by her mental health. Patient is hopeful to discharge home with her sister tomorrow. She feels that this would be an idealand safe plan for her. She is looking forward to working with physical therapy again today as she isfeeling stronger than yesterday's assessment. She would be open to conversation about further home services if warranted. All current questions and concerns have been addressed. Patient expressed gratitude for today's visit. IMPRESSION Patient is a very pleasant 66 y.o. female. She is alert, oriented, and engaged in conversation. Patient appears to be a reliable historian for the purpose of this assessment. Patient demonstrates an adequate understanding of this current hospitalization as well as information provided. She is able to provide a detailed history of the events leading up to hospitalization and recount events since admission. She asks appropriate questions related to the topics of discussion. Patient has good insight intheir emotions and potential discharge needs. She openly discusses her diagnosis of schizophrenia and the auditory hallucinations that accompany that. While seemingly exacerbated by hospitalization, patient does not appear to be in distress regarding the voices and notes that they keep her company. Ensured that patient's hallucinations have never suggested self-harm behavior. Eye contact was great. Speech was clear and within normal limits for volume, rate, and tone. Thought content was logical and goal-directed. Patient appears to be coping appropriately at this time and does not voice any current concerns. No additional interventions needed at this moment. INTERVENTIONS ??? Education on the role of inpatient social work ??? Rapport building ??? Comprehensive psychosocial assessment completed ??? Provided support to patient ??? Active and reflective listening ??? Assessed for immediate needs ??? Supportive counseling provided through validation, normalization of feelings, and reassurance PLAN 1. Patient anticipates returning to her sister's home at the time of discharge 2. Patient's family to provide discharge transportation 3. Social work will continue to follow and assist with any psychosocial or discharge needs. Anticipated barriers to the transition of care/plan: None Mehreen Downing, M.S.W. 04/26/2021 ESS MOLD TECHNICIAN Trupti Gonzales O.T. - 04/25/2021 1:59 PM CST Occupational Therapy Acute Hospital Inpatient Evaluation/Treatment SUBJECTIVE Patient's Name: Sarah Reyes Referring/Attending Provider: Jeanie Flores M.D. Medical Diagnosis: Obstruction Intestinal (HCC) [K56.609] Reason for Referral: Occupational Therapy Evaluation and Treatment Onset Date: 04/24/21 Payor: MEDICARE / Plan: MEDICARE A AND B / Product Type: Medicare / PERTINENT MEDICAL / SURGICAL HISTORY: Patient Active Problem List Diagnosis ??? 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 Schizophrenia (HCC) ??? Diabetes Mellitus Type 2 (HCC) ??? Edema Localized ??? Other Advertising Campaign Manager Current Drug Therapy ??? Metabolic Syndrome ??? Asthma Mild Intermittent (HCC) ??? Obesity Body Mass Index 30-39.9 Adult ??? Nonrheumatic Mitral Valve Insufficiency ??? Apnea Sleep Obstructive ??? Nodule Pulmonary ??? Mass Lung ??? Obstruction Intestinal (HCC) ??? Diabetes Mellitus Type 2 With Diabetic Polyneuropathy (HCC) ? ? Morbid Obesity Body Mass Index >= 35 with Comorbid Condition (HCC) Past Surgical History: Procedure Laterality Date ??? BRONCHOSCOPY FLEXIBLE: EBUS TBNA ENDOBRONCHIAL ULTRASOUND NEEDLE ASPIRATION N/A 06/30/2018 Procedure: Bronchoscopy Flexible: Endobronchial Ultrasound Guided Transbronchial Needle Aspiration;Surgeon: Keaton Noe M.D.; Location: [facility] ??? VATS - WEDGE RESECTION LUNG Left 08/07/2018 Procedure: THORACOSCOPY, WEDGE RESECTION LUNG.; Surgeon: Fany Lyn M.D.; Location: [facility] History of Present Illness:66 year old female with a PMH of schizophrenia, left lung adenocarcinoma s/p wedge lung resection 2018, T2DM, metabolic syndrome, mitral valve insufficiency and KEVIN who presented to the [facility] Emergency Department on 04/23 for abdominal pain and vomiting for [address] A/P demonstrated high-grade obstruction in her right lower quadrant. She was admitted overnight and transferred to [facility] on 04/23 due to respiratory distress most likely due to possible aspirationpneumonia. Occupational Profile: Prior Function/Occupational Profile Lives With: Family (Sister and [id number]. Patient reports they do work but sometimes workers' compensation commissioner. She was unclear on how often they are home. Further clarification needed. Nephew also stays with them off and on.) Receives Help From: Family ADL Assistance: Modified independent ADL Assistance Comments: Independent in dressing and toileting. Takes seated showers without assistance. IADL/Homemaking Assistance Comments: Patient performs her own meals for breakfast and lunch. Sister and [id number] prepare dinner and do the majority of cleaning. Patient does own laundry. Sister assists with setting up pill box but patient takes daily on own. Patient has assistance from sister with finances. Family manages yard work. 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 Other times ambulates without a gait aid. Home Living Type of Home: House Home Layout: Bedroom upstairs,Bathroom upstairs,Full bath main level Home Layout Comments: Patient's bedroom and bathroom are upstairs on the second story of the home. There is a bedroom on the main level of the home but this is occupied and she does not believe she would be able to reside there if needed. Home Access: Stairs to enter with rails,Stairs to alternate level with rails Entrance Stairs: Rails: Both (close enough to use simultaneously) Entrance Stairs: Number of Steps: 8 Alternate Level Stairs: Rails: Right Alternate Level Stairs: Number of Steps: 12-16 to reach upstairs bedroom/bathroom Bathroom Shower/Tub: Walk-in shower,Tub/shower unit Tub/shower unit location: Second floor/upper level Walk-in shower location: Main floor Bathroom Toilet: Standard Home Equipment Gait Devices Owned: Front-wheeled walker Bathroom Equipment: Shower chair with back,Hand-held shower head (in upstairs tub shower) Family/Caregiver Present: Yes (sister present at end of session) Patient/Caregiver Goals: Return to prior level of function. Patient Comments: No complaints of pain. Reports feeling a little slower than baseline. Fall Risk (65 and older) Fall in the last 12 months: No Are you fearful of falling?: Yes Fall Risk Comments: does intermittently use a front wheeled walker to help with balance Precautions Other Precautions: fall, cognition, hx schizophrenia OBJECTIVE Vitals monitored throughout session; within normal ranges. HR 90-100s. SpO2 >95% on 3 L NC. MAP 70-80s. Vision/Sensation Basic Assessment Baseline Vision/Correction: Wears glasses all the time Activity Tolerance Endurance: Tolerates 10-20 minutes of activity Activity Tolerance Comments: decreased from baseline Gross Hand Function Right Hand Gross Grasp: Impairment noted Left Hand Gross Grasp: Impairment noted Balance Static Sitting-Balance: Good (Maintains balance without support) Dynamic Sitting-Balance: Good (Maintains balance without support) Static Standing-Balance: Fair (Maintains balance with handheld/contact guard assistance),Good (Maintains balance without support) Dynamic Standing-Balance: Fair (Maintains balance with handheld/contact guard assistance) General ROM / Strength Screening Strength - Upper Extremity Screen: Impaired right & left Strength - Upper Extremity Screen Comments: generalized weakness Strength - Lower Extremity Screen: Impaired right & left Strength - Lower Extremity Screen Comments: generalized weakness Cognition Cognitive assessment method: Therapist observations,Patient self-report Arousal/Alertness: Delayed responses to stimuli Attention: Impairments noted Initiation: Slow/delayed initiation Orientation: Oriented X4 Following Commands: One Step Commands,Multistep Commands One Step Commands: Follows one step commands consistently Multistep Commands: Follows multistep commands with increased time,Follows multistep commands with repetition Cognition Comments: Will continue to assess as appropriate. Of note, recieves assistance with high level IADLs. Sit to Stand Transfers # of Assistants: 1 Transfer Surface: Bed Transfer Equipment: Gait belt,Front wheeled walker Level of Assistance: Minimal assistance Assessment/Delivery: Assessed,Instructed,Therapist assisted,Facilitated Comments: Cues for hand placement. Facilitation for anterior flexion and to come upright into extension. Stand to Sit Transfers # of Assistants: 1 Transfer Surface: Chair Transfer Equipment: Gait belt,Front wheeled walker Level of Assistance: Minimal assistance Assessment/Delivery: Assessed,Instructed,Therapist assisted,Facilitated Comments: Cues for hand placement and facilitation for controlled descent. Grooming Grooming Location: Other (Comment) (standing at tray table) Grooming Delivery: Assessed,Instructed,Therapist assisted,Facilitated Grooming Level of Assistance: Supervision/Set-up,Minimal assistance Grooming Comments: Patient completed standing oral and denture care standing approximately 8 minuteswith contact guard assistance to supervision for balance. Only set-up/clean up assistance intermittent cues for sequencing required. LE Dressing LE Dressing Location: Chair LE Dressing Delivery: Assessed LE Dressing Items Included: Socks LE Dressing Level of Assistance: Supervision/Set-up LE Dressing Comments: Patient able to doff/don socks seated in chair with use of figure four technique. Supervision for safety with sitting balance. Some increased time noted. ADL Comments ADL Comments: Educated on plan of care and importance of out of bed activity. Team Communication: Patient's nurse was contacted and patient's status was discussed,Discussed patient's care with PT Outcome Measures AM-PAC Inpatient Short Form: Putting on and taking off regular lower body clothing?: A Little Putting on and taking off regular upper body clothing?: A Little Taking care of personal grooming such as brushing teeth?: None Bathing (including washing, rinsing, drying)?: A lot Toileting, which includes using toilet, bedpan, or urinal?: A lot Eating meals?: Total (NPO) Daily Activities Raw Score (max 24): 15 Daily Activities Standardized Score: 34.69 Interpretation: Clinicians answer the AM-PAC Inpatient Short Form based on observed patient activityand/or clinical judgement (ie. patient can be scored without physically performing each activity) Based on scoring guidelines using the raw score value: Those going to home had an average score of 20.1 Those going home with home care had an average score of 17.9 Those going to SNF had an average score of 14 Those going to IRF had an average score of 13.6 Those going to a LTAC had an average score of 11.5 Patient was left in bedside chair at end of session with call light in reach, all needs met and questions answered. Contact monitoring: PPE used during therapy: Therapist was wearing the following PPE throughout entire session: surgicalmask, eye protection and gloves Family member/caregiver present was wearing a mask: yes Assessment Discharge Therapy Needs - OT: Ongoing skilled occupational therapy Skilled therapy can include occupational therapy provided by home health, outpatient clinic, or a post-acute facility. The location of these services is determined by the patient's care team in partnership with patient/family. Level of Care Needed - OT: Assistance with showering/bathing,Assistance with toilet/shower transfers,Assistance with toileting,Assistance with dressing (Already receiving assistance with IADLs) Barriers to Discharge Home: Current functional status,Inaccessible home environment,Fall risk Clinical Impression: Patient was pleasant and agreeable to therapy session. Patient is grossly completing activities of daily living with minimal assistance. Patient is primarily limited by generalized weakness, decreased activity tolerance, and impaired balance. Patient tolerated the session well to complete 8 minutes of standing grooming. Patient is not at their baseline and will continue to require skilled occupational therapy to maximize return to functional independence. Currently recommend assistance outlined above but will continue to assess. Rehab potential: Ms. Reyes has excellent potential to achieve established occupational therapy goals within the time frame outlined below. Tiered OT Evaluation Codes: Personal Factors: Needs assistive device,Balance impairment,Learning style,Sedentary lifestyle Occupational Profile and History review: Expanded Performance Deficits: 3 - 5 performance deficits Evaluation Complexity: Moderate Functional Goals: OT Goal #1: Patient will complete total body dressing with clothing retrieval with modified independence to maximize return to functional independence. OT Goal #2: Patient will complete toileting process (including transfer, pericares, and clothing management) with modified independence to decrease dependence on caregiver and mazimize functioanl asisstance OT Goal #3: Patient will complete shower with stand by assistance to decrease dependence on caregiver and mazimize functioanl asisstance OT Goal #4: Patient and/or caregiver will verbalize understanding of home safety/equipment recommendations to maximize safety at dismissal. Plan Occupational Therapy Attestation Statement: Patient agrees with the plan of care and goals. OT Frequency: OT Amount: 1 visit per day OT Frequency: 3 times per week OT Inpatient Duration : Until goals are met or hospital discharge Requires Inpatient OT Follow-Up: Yes OT - Next Inpatient Appointment: 04/26/21 Plan: Plan of care initiated OT Plan Comments: toileting in the bathroom; total body dressing with clothing retrieval; fall prevention Treatment interventions may include: Treatment Interventions: Therapeutic exercise,Cognitive skills training,Therapeutic functional activity,Self-care/home management Billing: Time Spent with Patient OT Eval - Mod Complexity: 10 min Home Management Training (min): 15 min Time Calculation Total Timed Units (min): 15 min Total Treatment Time (min): 25 min Trupti Gonzales O.T. ESS MOLD TECHNICIAN Keaton Owens P.T., D.P.T. - 04/25/2021 11:30 AM CST Physical Therapy Inpatient Evaluation/Treatment SUBJECTIVE Patient's Name: Sarah Reyes Referring/Attending Provider: Jeanie Flores M.D. Medical Diagnosis: Obstruction Intestinal (HCC) [K56.609] Reason for Referral: PT Evaluate and Treat Onset Date: 04/24/21 Payor: MEDICARE / Plan: MEDICARE A AND B / Product Type: Medicare / PERTINENT MEDICAL / SURGICAL HISTORY: Patient Active Problem List Diagnosis ??? 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 Schizophrenia (HCC) ??? Diabetes Mellitus Type 2 (HCC) ??? Edema Localized ??? Other Advertising Campaign Manager Current Drug Therapy ??? Metabolic Syndrome ??? Asthma Mild Intermittent (HCC) ??? Obesity Body Mass Index 30-39.9 Adult ??? Nonrheumatic Mitral Valve Insufficiency ??? Apnea Sleep Obstructive ??? Nodule Pulmonary ??? Mass Lung ??? Obstruction Intestinal (HCC) ??? Diabetes Mellitus Type 2 With Diabetic Polyneuropathy (HCC) ? ? Morbid Obesity Body Mass Index >= 35 with Comorbid Condition (HCC) Past Surgical History: Procedure Laterality Date ??? BRONCHOSCOPY FLEXIBLE: EBUS TBNA ENDOBRONCHIAL ULTRASOUND NEEDLE ASPIRATION N/A 06/30/2018 Procedure: Bronchoscopy Flexible: Endobronchial Ultrasound Guided Transbronchial Needle Aspiration;Surgeon: Keaton Noe M.D.; Location: [facility] ??? VATS - WEDGE RESECTION LUNG Left 08/07/2018 Procedure: THORACOSCOPY, WEDGE RESECTION LUNG.; Surgeon: Fany Lyn M.D.; Location: [facility] History of Present Illness: 66 year old female with a PMH of schizophrenia, left lung adenocarcinomas/p wedge lung resection 2018, T2DM, metabolic syndrome, mitral valve insufficiency and KEVIN who presented to the [facility] Emergency Department on 04/23 for abdominal pain and vomiting for [address] A/P demonstrated high-grade obstruction in her right lower quadrant. She was admitted overnight and transferred to [facility] on 04/23 due to respiratory distress most likely due to possible aspiration pneumonia. Prior Function/Occupational Profile Lives With: Family (Sister and etstpww-gt-[id number]. Patient reports they do work but sometimes workers' compensation commissioner. She was unclear on how often they are home. Further clarification needed. Nephew also stays with them off and on.) Receives Help From: Family ADL Assistance: Independent ADL Assistance Comments: Independent in dressing and toileting. Takes seated showers independently. IADL/Homemaking Assistance Comments: Patient performs her own meals for breakfast and lunch. Sister and [id number] prepare dinner and do the majority of cleaning. 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 Other times ambulates without a gait aid. Home Equipment Gait Devices Owned: Front-wheeled walker Bathroom Equipment: Shower chair with back,Hand-held shower head (in upstairs tub shower) Home Living Type of Home: House Home Layout: Bedroom upstairs,Bathroom upstairs,Full bath main level Home Layout Comments: Patient's bedroom and bathroom are upstairs on the second story of the home. There is a bedroom on the main level of the home but this is occupied and she does not believe she would be able to reside there if needed. Home Access: Stairs to enter with rails,Stairs to alternate level with rails Entrance Stairs: Rails: Both (close enough to use simultaneously) Entrance Stairs: Number of Steps: 8 Alternate Level Stairs: Rails: Right Alternate Level Stairs: Number of Steps: 12-16 to reach upstairs bedroom/bathroom Bathroom Shower/Tub: Walk-in shower,Tub/shower unit Tub/shower unit location: Second floor/upper level Walk-in shower location: Main floor Bathroom Toilet: Standard Family/Caregiver Present: No Patient/Caregiver Goals: No specific goals listed. Patient Comments: Patient in bed upon PT arrival this morning. Agreeable to session and denied pain.She was scheduled for an ex lap today but had a large bowel movement and the ex lap was cancelled. Precautions Other Precautions: fall, cognition, hx schizophrenia Fall Risk (65 and older) Fall in the last 12 months: No Are you fearful of falling?: Yes Fall Risk Comments: does intermittently use a front wheeled walker to help with balance OBJECTIVE Vitals: HR upper 90s, blood pressure 133/74mmHg(92), SpO2 > 95% on 4L NC Cognition Arousal/Alertness: Delayed responses to stimuli Attention: Impairments noted Initiation: Slow/delayed initiation Orientation: Disoriented to situation (Able to state she was at [facility] but did not know the city) Cognition Comments: requires increased time for processing and answering questions General ROM / Strength Screening ROM - Lower Extremity Screen: Addressed, no concerns noted Strength - Lower Extremity Screen: Impaired right & left Strength - Lower Extremity Screen Comments: generalized weakness Bed Mobility - Supine to Sit # of Assistants: 1 Level of Assistance: Minimal assistance Device: Bed rail Cuing: Verbal,Tactile Comments: Facilitated transfer with several cues for sequencing. Patient able to move both legs overedge of bed herself. Partial logroll with minimal assist for transferring trunk fully upright. Sit to Stand Transfers # of Assistants: 1 (+1 lines) Transfer Surface: Chair,Bed Transfer Equipment: Gait belt,Front wheeled walker Level of Assistance: Minimal assistance Assessment/Delivery: Assessed,Instructed,Educated,Therapist assisted,Facilitated Comments: Cues for hand placement as patient initially tried to place both hands on walker prior to standing. Cues for increasing base of support. Facilitated anterior lean with minimal assist to reachfull standing. Stand to Sit Transfers # of Assistants: 1 (+1 lines) Transfer Surface: Chair,Toilet/Commode Transfer Equipment: Gait belt,Front wheeled walker Level of Assistance: Minimal assistance Assessment/Delivery: Assessed,Instructed,Educated,Therapist assisted,Facilitated Comments: Cues for alignment to seated surface. Assist for slow lowering. Bed, Chair, Wheelchair Transfers # of Assistants: 1 (+1 lines) Transfer Surface: Bed,Chair Transfer Approach: To Transfer Equipment: Front wheeled walker Level of Assistance: Minimal assistance Assessment/Delivery: Assessed,Instructed,Educated,Therapist assisted,Facilitated Comments: Cues for upright posture and walker proximity with slow processing noted. Minimal assistance for trunk stabilization and maneuvering walker. Balance Static Sitting-Balance: Good (Maintains balance without support) Dynamic Sitting-Balance: Good (Maintains balance without support) Static Standing-Balance: Fair (Maintains balance with handheld/contact guard assistance) Dynamic Standing-Balance: Poor (Requires assistance to maintain balance) Gait Assessment/Training Distance (m): 6 m (1.5m forward and 1.5m backward, performed twice with no rest break) Surface: Even Device: Gait belt,Front-wheeled walker # of Assistants: 1 (+1 lines/chair) Level of Assistance: Minimal assistance Quality/Pattern: Increased base of support,Decreased heel strike Assessment of Gait: Slow rosy with inconsistent foot placement/step length. Excessive hip hiking on the left. Wide base of support. Mild trunk sway. Walker placed too far in front of patient during backward walking. Cueing Provided: Verbal,Tactile Training/Intervention: Cues/assist for walker proximity, trunk stabilization and more consistent step length. Educated on importance of mobility during hospitalization. Response: Improvement in performing a more consistent step length after cuing but processing is overall slow. Patient's initial excessive hip hiking on the left improved after first few steps with no evidence of foot drop. Ambulated within ICU lines. Patient's gait impairments appear to be widely linked to her cognitive status and slow processing. . Seated Exercises Seated Exercise - Side Addressed: Bilateral Sitting Surface: Chair Seated Exercise: Long arc quads Sets/Repetitions: x10 reps Activity Tolerance Endurance: Tolerates 10-20 minutes of activity Patient's nurse was contacted and patient's status was discussed,Discussed patient's care with OT Patient was left in bedside chair at end of session with call light in reach, all needs met and questions answered. Contact monitoring: PPE used during therapy: Therapist was wearing the following PPE throughout entire session: surgicalmask, eye protection and gloves Patient was wearing a mask during therapy session: no Outcome Measures FSS-ICU: Rolling: Patient performs > or equal to 75% (Minimum Assist) Supine to sit transfer: Patient performs > or equal to 75% (Minimum Assist) Sit to stand transfer: Patient performs > or equal to 75% (Minimum Assist) Sitting edge of the bed: Requires cueing but with no physical assist, may use assistive device (Supervision) Walking/Wheelchair mobility: Walk/Propel < 50 feet with assist of 1 or any distance with assist of 2 persons (Total Assistance) Total: 18 Interpretation: Total score ranges from 0-35. Higher scores indicating better physical functioning.Higher FSS-ICU scores suggest a greater likelihood of return to home and lower scores suggest a greater likelihood of discharge to an inpatient rehabilitation facility, computer terminal operator acute care facility [facility]. [facility] Inpatient Short Form: -[facility] Basic Mobility (V.2) How much help from another person do you currently need???If the patient hasn't done an activity recently, how much help from another person do you think he/she would need if he/she tried? 1. Turning from your back to your side while in a flat bed without using bedrails?: A Little 2. Moving from lying on your back to sitting on the side of a flat bed without using bedrails?: A Little 3. Moving to and from a bed to a chair (including a wheelchair)?: A Little 4. Standing up from a chair using your arms (e.g., wheelchair, or bedside chair)?: A Little 5. To walk in hospital room?: A Little 6. Climbing 3-5 steps with a railing?: A Lot AM-[facility] Basic Mobility (V.2) Raw Score: 17 AM-[facility] Basic Mobility (V.2) Standardized Score: 39.67 Interpretation: Clinicians answer the -[facility] Inpatient Short Form based on observed patient activityand/or clinical judgement (ie. patient can be scored without physically performing each activity) Based on scoring guidelines using the raw score value: Those going to home had an average score of 20.1 Those going home with home care had an average score of 17.9 Those going to SNF had an average score of 14 Those going to IRF had an average score of 13.6 Those going to a LTAC had an average score of 11.5 Assessment Discharge Therapy Needs - PT: Ongoing skilled physical therapy (pending progress) Skilled therapy can include physical therapy provided by home health, outpatient clinic, or a post-acute facility. The location of these services is determined by the patient's care team in partnershipwith patient/family. Level of Care Needed - PT: Assistance with transfers (Comment),Assistance with stairs,Cognitive assistance needed,Assistance with walking and moving around the home,Physical assistance needed,Assistance with bed mobility Barriers to Discharge Home: Current functional status,Inaccessible home environment,Fall risk Barriers to Discharge Comments: several steps to negotiate at home Clinical Impression of today's session: Currently, patient presents with impairments including generalized weakness resulting in the following functional deficits: required assist with all mobility. Patient was admitted from an outside hospital with concern for a possible bowel obstruction. She was scheduled to have an ex lap today but had a large bowel movement this morning and is no longer requiring surgery. With PT, she was able to perform a pivot bed to chair as well as perform some short distance ambulation with a front wheeled walker within her ICU lines. Grossly requiring minimal assist for all mobility. Some slow processing was noted throughout session which likely impacted some of her gait impairments today. Patient was not oriented to situation and was unable to state what city she was in. She does have a baseline psychiatrichistory as well. From a PT standpoint, recommend that she pivot to chair 3x/day with a front wheeledwalker and assist x 2 (one for patient, one for lines). Recommend any in-room ambulation occur with assist x 2 (one for patient, one for lines/chair follow). Ongoing skilled therapy is currently recommended. Will continue to follow. Rehab potential: Ms. Reyes has Good potential to achieve established physical therapy goals within the time frame outlined below. Tiered PT Evaluation Codes: Comorbid Conditions: Mental health disorder Personal Factors: Needs assistive device Examination elements: 3 Clinical Presentation: Evolving Clinical Decision Making: Moderate complexity clinical decision making Functional Goals: PT Inpatient Goals PT Goal #1: Patient will perform supine to/from sit transfers with independence for safely rising from bed at home. PT Goal #2: Patient will ambulate 50m with least restrictive gait aid and modified independence for return to home and community walking. PT Goal #3: Patient will ascend/descend 8 steps with 2 railings and 16 steps with one railing, all with modified independence, for safe negotiation of her home. Plan Patient agrees with the plan of care and goals. Treatment Plan: Plan: Plan of care initiated PT Amount: 1 visit per day PT Frequency: 5 times per week PT Inpatient Duration : Until goals are met or hospital discharge Requires Inpatient Follow-Up: Yes PT - Next Inpatient Appointment: 04/26/21 PT Plan Comments: Progress bed mobility, sit to stand transfers and ambulation. Attempt stair negotiation when appropriate. Progress lower extremity exercises. Treatment interventions may include: Treatment/Interventions: Therapeutic exercise,Therapeutic functional activity,Neuromuscular re-education,Self-care/home management,Gait training Billing: Time Spent with Patient PT Eval - Mod Complexity: 10 min Therapeutic Activity (min): 21 min Total Timed Units (min): 21 min Total Treatment Time (min): 31 min Keaton Owens P.T., D.P.T. ESS MOLD TECHNICIAN Cam Mariee M.D. - 2021 4:55 PM CST Mrs. Reyes is a 66 y/o woman who presented from an OSH for SBO in the setting of taking Clozapine for schizophrenia. She endorses abdominal pain for 2 days a/w n/v and distention. CT scan at OSH was significant for a high-grade obstruction in the RLQ. Of note, she also had respiratory distress requiring 6L NC, associated with tachycardia. She was directly transferred here for further management. Abdominal exam was benign but she was tachycardic throughout the interaction. Labs were largely unremarkable. At this time, we would recommend admission to the SICU for medical optimization and monitoring given her respiratory distress associated with tachycardia. We would also like a GGC, NGT decompression, IVF, bowel rest. Please limit any meds going through the NGT. Patient was seen and discussed with Dr. Mayer who agrees with the plan as outlined above. ESS MOLD TECHNICIAN Cassandra Olmstead M.B.B.S. - 2021 4:22 PM CSTAssociated Order(s): IP CONSULT TO GENERAL SURGERY History and Physical Hospital Day: 1 Reason for consult: Small bowel obstruction SUBJECTIVE Chief Complaint: Abdominal distention, nausea, abdominal pain HPI: Sarah Reyes is a 66 y.o. female who presents with abdominal pain, respiratory distress, distentionto a local ED. the patient states that she has abdominal pain since 2 days, constant in nature, states it is about 8/10, diffuse in nature. She also states that she has abdominal distension since the same time. She had associated nausea, vomiting. The patient also developed respiratory distress in view of which she was taken to the local ED where she was evaluated. Her labs in the outside ED with normal. She also underwent a CT scan of her chest to rule out PE which was negative. However, CT scan ofher abdomen demonstrated high-grade obstruction in her right lower quadrant. The patient also statesthat she had an NG tube placed in the outside ED which had an output of 2.5 canisters of bile. In view of the small-bowel obstruction and respiratory distress the patient was transferred to [facility] directly. After reaching the ICU, the patient was tachycardic (heart rate - 116-118), tachypneic (RR - 27-38) was requiring 4 L nasal cannula oxygen. Her labs done in the ICU demonstrated a lactate of 2.4, ALP 123. General surgery was consulted in view of her small-bowel obstruction. The patient states that she lives with her sister and her . The patient has history of schizophrenia and her sister is mentioned as the decision maker for her. Last oral intake: 2 days ago Antiplatelets/Anticoagulants: none Steroids/Immunosuppressants: none Smoking status: former Smoker (1 pack per day for 25 years) BMI: 38.15 Pertinent History Review: MEDICAL HISTORY ??? Nonrheumatic mitral regurgitation ??? Metabolic syndrome ??? Morbid obesity (BMI - 38.15) ??? Schizophrenia on clozapine ??? Diabetes mellitus with polyneuropathy (11/16- HbA1C - 5.7) ??? KEVIN on BiPAP (patient states that she is on BiPAP) ??? History of lung adenocarcinoma status post wedge resection SURGICAL HISTORY ??? Left lung wedge resection (08/15) - Dr. Lyn CURRENT MEDICATIONS Pertinent Medications: Denies use of blood thinners or immunomodulators including steroids. ALLERGIES/CONTRAINDICATIONS No allergies to antibiotics Full History per EMR: Past Medical History: Diagnosis Date ??? Apnea Sleep Obstructive 05/15/2018 ??? Asthma Mild Intermittent (HCC) 08/11/2015 ??? Asthma NOS ??? Diabetes Mellitus Type 2 (HCC) 05/05/2018 ??? Disturbance Sleep ??? Edema Localized 09/27/2016 ??? Hallucination ??? Malignant Neoplasm Of Lung Adenocarcinoma Left (HCC) 05/05/2018 ??? Metabolic Syndrome 06/12/2016 ??? Morbid obesity (CMS/HCC) 12/26/2014 ??? Nonrheumatic Mitral Valve Insufficiency 08/27/2017 ??? Other Correction Current Drug Therapy 05/26/2018 ??? Schizophrenia (HCC) 05/05/2018 Past Surgical History: Procedure Laterality Date ??? BRONCHOSCOPY FLEXIBLE: EBUS TBNA ENDOBRONCHIAL ULTRASOUND NEEDLE ASPIRATION N/A 06/30/2018 Procedure: Bronchoscopy Flexible: Endobronchial Ultrasound Guided Transbronchial Needle Aspiration;Surgeon: Keaton Noe M.D.; Location: [facility] ??? VATS - WEDGE RESECTION LUNG Left 08/07/2018 Procedure: THORACOSCOPY, WEDGE RESECTION LUNG.; Surgeon: Fany Lyn M.D.; Location: [facility] No Known Allergies reports that she quit smoking about 16 years ago. Her smoking use included cigarettes. She has a 25.00 pack-year smoking history. She has never used smokeless tobacco. She reports that she does not drink alcohol and does not use drugs. family history is not on file. ROS A complete 10 system review of systems was completed. Pertinent positive and negative are noted in the HPI above, all other systems were reviewed and were negative. OBJECTIVE Temperature: [36.5 ??C-37.2 ??C] 36.5 ??C Heart Rate: [114-121] 118 Resp Rate: [20-38] 29 Blood Pressure: (123-129)/(73-78) 129/73 SpO2: [92 %-97 %] 95 % Flow Rate (L/min): [3 L/min-15 L/min] 3 L/min Pulse Rate: [114-122] 116 Physical Exam: Constitutional Appearance: Normal appearance. Eyes Extraocular Movements: Extraocular movements intact. Pupils: Pupils are equal, round, and reactive to light. Cardiovascular Rate and Rhythm: Regular rhythm. Tachycardia present. Pulses: Normal pulses. Pulmonary Effort: Respiratory distress present. Breath sounds: Normal breath sounds. Abdominal General: Abdomen is protuberant. Bowel sounds are normal. There is distension. Palpations: Abdomen is soft. Tenderness: There is no abdominal tenderness. There is no rebound. Skin General: Skin is warm. Capillary Refill: Capillary refill takes less than 2 seconds. Neurological General: No focal deficit present. Mental Status: She is alert. Mental status is at baseline. LABS: Please see the record for full details Recent Labs 04/24/21 1300 04/24/21 1257 04/24/21 1241 HGB 12.6 12.8 12.7 PLT -- 199 196 WBC -- 5.9 -- Recent Labs 04/24/21 1257 NA 148 H CL 112 H BUN 35 H CREATININE 0.95 GLUCOSE 145 H MICROBIOLOGY: No results found for this visit on 04/24/21 (from the past 72 hour(s)). IMAGING: Imaging was independently reviewed. DX Chest Portable 1 View Result Date: 2021 Impression: Since 04/23/2021, increased airspace opacities in the right upper lobe suspicious for pneumonitis. Other bilateral airspace opacities/atelectasis are not significantly changed. Enteric tubetip in the stomach with side port just above the GE junction; advancement recommended. DX Abdomen Portable Anterior Posterior 1 View Result Date: 2021 Impression: Gastric tube advanced with the tip and side-port now in the proximal stomach. Gas-filled, dilated loops of small bowel. DX Abdomen Portable Anterior Posterior 1 View Result Date: 2021 Impression: Gastric tube tip in the stomach with side port just above the GE junction; advancement recommended. Gas-filled, dilated loops of small bowel predominantly in the central abdomen measuring up to 5.4 cm, compatible with small bowel obstruction though the bowel gas pattern has improved compared to CT biofuels production technician image on 04/23/2021. Excreted IV contrast from CT yesterday in the bladder. Interpretation of Outside CT Abdomen and or Pelvis Result Date: 2021 Impression: 1. Findings consistent with a mid small bowel obstruction, which may be related to partial volvulus and/or adhesion. Bowel all appears viable, with no evidence of necrosis or perforation. 2. Mildly delayed left nephrogram, of unclear etiology 3. Opacities in both lung bases likely acute inf ection/inflammation, possibly due to aspiration. ASSESSMENT / PLAN #1 Schizophrenia (HCC) #2 Obstruction Intestinal (HCC) Ms. Reyes is a 66-year-old female with past medical history significant for schizophrenia on clozapine, diabetes mellitus with polyneuropathy, morbid obesity who presented to the outside ED with complains of abdominal pain, abdominal distention and respiratory distress. After evaluation at the outside ED, PE was negative. However, CT scan demonstrated a findings of high-grade small-bowel obstruction. Therefore, she was transferred to [facility] as a direct admit. The patient also states that she had high NG tube output after placement. The patient continues to be tachycardic, tachypneic requiring 4 L nasal cannula oxygen. Her labs demonstrate a lactate 2.4. Her abdomen is soft, distended, nontender. After complete review of her history, examination, labs and imaging the findings are compatible with small-bowel obstruction. We recommend proceeding with Gastrografin challenge, for if the patient passes the challenge we can try a diet and see how she progresses. However, the patient feels Gastrografin challenge, we can probably consider operative intervention. PLAN: Recommend keeping NPO Recommend NG tube to LIS Recommend Gastrografin challenge With rest cares per the ICU team. Appreciate the cares. Please reach out to HSS-B team with any questions concerns by paging [phone] ([facility]). Plan and assessment were discussed with Dr. Mayer and Dr. Mariee, who were in agreement. TT: 30 minutes, CT > 50%. The patient acknowledges an understanding and agrees with the plan of care. Ashley YeagerS Resident Physician PGY-1 General Surgery [email or web address] ESS MOLD TECHNICIAN Associated attestation - Cam Mariee M.D. - 2021 4:54 PM PROCESS MOLD TECHNICIAN . Lance Armstrong M.D. - 2021 4:18 PM CST SUBJECTIVE HISTORY OF PRESENT ILLNESS I reviewed, discussed, examined, and agree with documentation of Surgical Critical Care fellow, Dr. Chuck Armstrong. Patient is a 66-year-old female who my colleague, Dr. Jeanie Flores, accepted in transfer from [place], [place]. She has bowel obstruction. Unfortunately, she suffered bilateral low er lobe aspiration. OBJECTIVE PHYSICAL EXAMINATION On exam, her respiratory status is acceptable. She is obese. Abdomen, however, is soft, nontender. She does not appear to have any scars on her abdomen, and she denies any prior abdominal surgical history. ASSESSMENT / PLAN Other medical conditions are as outlined. She, of note, does have a history of lung cancer, as well as obstructive sleep apnea, diabetes, and psychiatric conditions. She has a functional NG tube in place. Plans from the [facility] are for standard NG tube decompression followed by Dc rografin challenge. I agree with plans as outlined. Lance Armstrong M.D. CT CT Job ID: [id number] ESS MOLD TECHNICIAN Sonido Woodall P.A.-C. - 2021 2:47 PM CSTAssociated Order(s): IP CONSULT TO PSYCHIATRY & PSYCHOLOGY SUBJECTIVE Referring team: [facility] Trauma and General Surgery REASON FOR CONSULT History of schizophrenia and on clozapine and now presents with a small-bowel obstruction. HISTORY OF PRESENT ILLNESS Sarah Reyes is a 66 y.o. female with a past psychiatric history significant for schizophrenia and a medical/surgical history significant for type 2 diabetes, asthma, obesity and KEVIN. Sarah was admitted to the hospital on 2021 after presenting to an outside facility with increased abdominal domonique n/distension concerning for small bowel obstruction. I attempted to meet the patient however she was otherwise engaged with the primary and or additionalconsulting services. I did have an opportunity to speak with the patient's sister, Naomi, who is listed as the patient's contact and for who I saw a signed release in the chart. Naomi notes that the patient has a long history of schizophrenia dating back to her early 20s when it was 1st diagnosed. She tells me that from that 1st diagnosis up until 2019 the patient's psychiatric history is largely unknown. She notes that since 2019 the patient has been maintained on clozapine,Abilify and Celexa with the clozapine being slightly decreased over the years to his current dose of350 mg at bedtime. Naomi notes that baseline the patient has hallucinations however they are not reportedly troublesome. Naomi notes that prior to the patient's presentation she had been at baseline with no worsening mood symptoms. Truly does believe that over the last couple of months the patient hasbeen more tired throughout the day with less energy. She notes since COVID the patient has been lessambulatory but without any acute changes recently. Naomi notes the patient has been compliant with medications and they do the pillbox together. Naomi notes that the patient has been abstinent from smoking for a number of years and to her knowledge does not engage in recreational substances. Naomi does say that the patient has had difficulty with bowel movements for many years and was not aware that clozapine can contribute to constipation and patient should be on a bowel regimen. Rylie tells me that the patient is no longer taking the psyllium and has not been taking that for quite some time. MEDICATIONS Medications Report Scheduled Medication Ordered Dose/Rate, Route, Frequency Last Action acetaminophen tablet 1,000 mg (TYLENOL) 1,000 mg, oral, Q6H Ordered ARIPiprazole tablet 10 mg (ABILIFY) 10 mg, oral, QAM Ordered cefTRIAXone in dextrose (iso-osm) IVPB 2 g (ROCEPHIN) 2 g, IV, Q24H New Bag, 2 g at 04/24 1308 citalopram tablet 20 mg (CeleXA) 20 mg, oral, Daily Ordered [Held by provider] cloZAPine tablet 300 mg (CLOZARIL) (Held by provider since 2021 at 1423 by Alexis Peraza P.A.-C..Hold Comments: Pending pysch recommendations) 300 mg, oral, Dailyat bedtime Ordered [Held by provider] cloZAPine tablet 50 mg (CLOZARIL) (Held by provider since Sat2021 at 1423by Alexis Peraza P.A.-C..Hold Comments: Pending pysch recommendations) 50 mg, oral, Daily at bedtime Ordered dilTIAZem tablet 30 mg (CARDIZEM) 30 mg, oral, Q6H IAN Ordered fluticasone furoate-vilanteroL 100-25 mcg/actuation inhaler 1 puff (BREO ELLIPTA DISKUS) 1 puff, inhl, Daily Ordered heparin (porcine) injection 5,000 Units 5,000 Units, SC, Q8H IAN Ordered lansoprazole suspension 30 mg (PREVACID) 30 mg, oral, Daily before breakfast Ordered lidocaine 5 % 1 patch (LIDODERM) 1 patch, TD, Daily Ordered melatonin tablet 3 mg 3 mg, oral, Daily at bedtime Ordered mirabegron 24 hr tablet 50 mg (MYRBETRIQ) 50 mg, oral, Daily at bedtime Ordered montelukast tablet 10 mg (SINGULAIR) 10 mg, oral, Daily at bedtime Ordered polyethylene glycol powder packet 17 g (MIRALAX) 17 g, oral, Daily Ordered sennosides-docusate sodium 8.6-50 mg per tablet 1 tablet (SENOKOT-S) 1 tablet, oral, BID Ordered sodium chloride 0.9 % injection 3 mL 3 mL, IV, Q12H IAN Ordered Continuous Medication Ordered Dose/Rate, Route, Frequency Last Action lactated ringers 100 mL/hr, IV, Continuous Rate/Dose Verify, 100 mL/hr at 04/24 1400 PRN Medication Ordered Dose/Rate, Route, Frequency Last Action albuterol nebulizer solution 2.5 mg 2.5 mg, nebu, Q4H PRN Ordered bisacodyL suppository 10 mg (DULCOLAX) 10 mg, rectal, BID PRN Ordered ipratropium-albuteroL 0.5-2.5 mg/3 mL nebulizer solution 3 mL (DUONEB) 3 mL, nebu, 4x Daily PRN Ordered naloxone injection 0.2 mg (NARCAN) 0.2 mg, IV, PRN Ordered oxyCODONE IR tablet 2.5 mg (ROXICODONE) 2.5 mg, oral, Q4H PRN Ordered oxyCODONE IR tablet 5 mg (ROXICODONE) 5 mg, oral, Q4H PRN Ordered sodium chloride 0.9 % injection 10 mL 10 mL, IV, PRN Ordered sodium chloride 0.9 % injection 3 mL 3 mL, IV, PRN Ordered VITAL SIGNS Temperature: [36.5 ??C-37.2 ??C] 36.5 ??C Heart Rate: [114-121] 117 Resp Rate: [20-38] 22 Blood Pressure: (123-129)/(73-78) 129/73 SpO2: [92 %-97 %] 96 % Flow Rate (L/min): [3 L/min-15 L/min] 3 L/min Pulse Rate: [114-122] 118 DIAGNOSTICS I have reviewed the labs and diagnostics as documented in the EMR ECG 12 Lead Result Date: 2021 Sinus tachycardia Premature ventricular complexes Cannot rule out Inferior infarct When compared with ECG of 27-MAY-2018 12:37, Premature ventricular complexes are now present Minimal criteria for Inferior infarct are now present Reviewed by PHILIPPE Celeste SUICIDE RISK ASSESSMENT Patient not evaluated PSYCH TREATMENT HISTORY Mental Health Treatment History Past Treatments: Other Other details: Per the patient's sister she was 1st diagnosed with schizophrenia at the age of 22 and had a hospitalization at that time. Much of the history since her 1st diagnosis and up until 2019 is unknown. Since 2019 she has been on a combination of clozapine, Abilify and Celexa. She is followedby an outpatient psychiatric provider with last visit in November of this year. She has monthly CBC checks for her clozapine. PAST MEDICAL/SURGICAL HISTORY Past Medical History: Diagnosis Date ??? Apnea Sleep Obstructive 05/15/2018 ??? Asthma Mild Intermittent (HCC) 08/11/2015 ??? Asthma NOS ??? Diabetes Mellitus Type 2 (HCC) 05/05/2018 ??? Disturbance Sleep ??? Edema Localized 09/27/2016 ??? Hallucination ??? Malignant Neoplasm Of Lung Adenocarcinoma Left (HCC) 05/05/2018 ??? Metabolic Syndrome 06/12/2016 ??? Morbid obesity (CMS/HCC) 12/26/2014 ??? Nonrheumatic Mitral Valve Insufficiency 08/27/2017 ??? 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 Schizophrenia (HCC) 05/05/2018 Past Surgical History: Procedure Laterality Date ??? BRONCHOSCOPY FLEXIBLE: EBUS TBNA ENDOBRONCHIAL ULTRASOUND NEEDLE ASPIRATION N/A 06/30/2018 Procedure: Bronchoscopy Flexible: Endobronchial Ultrasound Guided Transbronchial Needle Aspiration;Surgeon: Keaton Noe M.D.; Location: [facility] ??? VATS - WEDGE RESECTION LUNG Left 08/07/2018 Procedure: THORACOSCOPY, WEDGE RESECTION LUNG.; Surgeon: Fany Lyn M.D.; Location: [facility] SOCIAL HISTORY Social History Socioeconomic History ??? Marital status: Single Spouse name: None ??? Number of children: None ??? Years of education: None ??? Highest education level: None Occupational History ??? None Tobacco Use ??? Smoking status: Former Smoker Packs/day: 1.00 Years: 25.00 Pack years: 25.00 Types: Cigarettes Quit date: 2004 Years since quittin.9 ??? Smokeless tobacco: Never Used Substance and Sexual Activity ??? Alcohol use: No ??? Drug use: No ??? Sexual activity: Defer Other Topics Concern ??? None Social History Narrative 66-year-old female who resides with her sister. Social Determinants of Health Financial Resource Strain: Not on file Food Insecurity: Not on file Transportation Needs: Not on file Physical Activity: Not on file Stress: Not on file Social Connections: Not on file Intimate Partner Violence: Not on file Housing Stability: Not on file History reviewed. No pertinent family history. ASSESSMENT / PLAN #1 Schizophrenia (HCC) #2 Obstruction Intestinal ([facility]) RECOMMENDATIONS This case will be discussed with a risk control consultant in the next 24 hours Patient is admitted with small-bowel obstruction of unclear etiology. She has been on clozapine for many years without any known history of GI sequelae. At this point in time I think it is reasonable to hold her clozapine until we have a more definitiveetiology. Recommend obtaining a clozapine level, no need to get a trough as she missed her dose yesterday. Recommend continuing her other psychotropic medications unchanged. If in the short term there is re-emergence of psychotic symptoms we can always increase her Abilify. Thank you for allowing us to assist in the care of your patient. Please contact me at [phone] withany questions or for further information. Sonido Woodall P.A.-C. 2021 ESS MOLD TECHNICIAN documented in this encounter Nursing Notes Bethany Salamanca R.N. - 04/28/2021 4:59 PM CST Pt's belongings were all packed up and IV was removed. Education was gone over with pt and her real estate management specialist (sister) and paperwork was sent with them. Pt will be riding with sister and discharging back home for self care. Escort was called and pt left the unit via wheelchair. ESS MOLD TECHNICIAN Bethany Salamanca R.N. - 04/28/2021 4:57 PM CST Shift Goals: Clinical Goals for the Shift: Ability to void and adequate urine output, maintain hematologic and hemodynamic stability. Identify possible barriers to meeting goals/advancing plan of care: End of Shift Summary: AVS was gone over with patient and her real estate management specialist (sister) and transport was called to take them downto pharmacy to machine operator hop picker medications. All questions were answered and pt DC HSC. ESS MOLD TECHNICIAN Nicole Quan, R.R.T., L.R.T. - 04/25/2021 10:09 AM CST Patient is a 66 y.o. female admitted on 2021 Alert Information: Plan of Care: Continue to assess and monitor while in ICU. Encourage coughing and deep breathing, and activity. Continue to assist with placement of bipap at night. Principal Problem Obstruction Intestinal (HCC) Chief Complaint: No chief complaint on file. Oxygen Therapy: $Delivery Method: BiPAP Flow Rate (L/min): 3 L/min Cough: Weak,Non-productive Height: Height: 160 cm Weight: Admission Weight: 97.7 kg Smoking History: Social History Tobacco Use Smoking Status Former Smoker ??? Packs/day: 1.00 ??? Years: 25.00 ??? Pack years: 25.00 ??? Types: Cigarettes ??? Quit date: 2004 ??? Years since quittin.0 Smokeless Tobacco Never Used Airway: Pt's natural airway Non-Invasive Support: BPAP/CPAP Interface: Full face mask,Skin barrier BPAP/CPAP Interface Size: Medium BPAP/CPAP Mode: Bilevel,Per Home Settings NPPV IPAP Settin cm H2O NPPV EPAP (CPAP) Settin cm H2O Skin integrity checked: Skin clean and intact with no areas of redness on the face, nose, neck or ears. LiquiCell?? applied to the bridge of the nose. Recent ABG: Recent Labs 04/25/21 0446 PO2 ART 72 L PCO2 ART 43 PH ART 7.44 HCO3 ART 30 H BASE EXC ART 6 H Recent Labs 04/25/21 0446 PO2 ART 72 L PCO2 ART 43 PH ART 7.44 Nicole Quan R.R.T., L.R.T. 04/25/21 10:09 AM PROCESS MOLD TECHNICIAN ESS MOLD TECHNICIAN Modesta Bruce R.R.T., L.R.T. - 04/25/2021 3:24 AM CST Sarah Reyes is a 66 y.o. female admitted to CVICU on 04/24/21. PMH: Asthma, KEVIN Significant Events During Current Stay: O2 Device: Nasal Cannula, BIPAP qpm Respiratory Medications: Albuterol, DUONEB PRN Shift Summary: Patient seen at beginning of shift on nasal cannula without complications, patient transitioned to BiPAP overnight 13/04 per home settings. No acute respiratory concerns. Plan of Care: Continue to monitor and assess respiratory status per ICU protocol. Anesthesia bag/ mask at bedside. Electronically signed by: Modesta Bruce R.R.T., L.R.TElvi 04/25/21 3:24 AM PROCESS MOLD TECHNICIAN ESS MOLD TECHNICIAN documented in this encounter Miscellaneous Notes Hospital Course - Lilia Colon APRN, C.N.P. - 04/25/2021 11:53 AM CST Ms. Sarah Reyes is a 66 year old female with a PMH of mitral valve insufficiency, HTN, KEVIN, DM type 2, metabolic syndrome, schizophrenia, left lung adenocarcinoma s/p wedge lung resection (2019) who presented to the [facility] Emergency Department on 04/23 for abdominal pain and vomiting for [address] A/P demonstrated high-grade obstruction in her right lower quadrant. She was admitted overnight and transferred to [facility] on 04/24 due to respiratory distress most likely due to possible aspiration pneumonia. She was admitted the SICU. She was given IVF resuscitation for dehydration. She underwent gastrografin challenge and passed with contrast through to the colon. She was transferred to the general care floor on 04/25 under the care of HSS Alex. Due to her history of schizophrenia needing Clozapine, our colleagues in Psychiatry were consulted for possible dose reduction as the high dose of medication is likely cause of her obstruction. They recommended holding her Clozapine and monitoring her for psychotic symptoms and a plan to adjust her med ication if this occurs. She had return of bowel function on 04/25. Her nasogastric tube was removed on 04/26 and she was started on a clear liquid diet. Her diet was advanced on 04/27. She developed maroon stool for one bowelmovement and hemoglobin monitored. It was stable at 10.8 from 10.8 the day prior. She was given liquids by mouth and eventually transitioned to a general diet. When she was tolerating a diet, her pain was well controlled with oral pain medications, she was mobilizing without difficulty and her bowel and bladder function were acceptable, she was dismissed to home and will pursue PT in outpatient setting. Colonoscopy is scheduled for 05/01/2021. ESS MOLD TECHNICIAN documented in this encounter Plan of Treatment Scheduled Orders Name Type Priority Associated Diagnoses Order S chedule Bacterial Culture, Microbiology Routine Routine l ab collection Aerobic + Susc, Resp (next c ollection) for 1 Occurrences s tarting 2021 unti l 2021 Gram Stain Microbiology Routine Routine lab col lection (next collectio n) for 1 Occurrences s tarting 2021 unti l 2021 Scheduled Referrals Name Type Priority Associated Diagnoses Order S chedule External referral Outpatient Referral Routine Obstruction Ord ered: PT (non-Cohen) Intestinal (HCC) 04/28/2021 Decline Functional Status documented as of this encounter Procedures Procedure Name Priority Date/Time Associated Comments Diagnosis SARS CORONAVIRUS 2, Routine 04/28/2021 12:58 Resu lts for RNA, RAPID POC, V AM PROCESS MOLD TECHNICIAN this proce dure are in the results section. CBC WITHOUT Routine 04/27/2021 8:20 Results for DIFFERENTIAL, B PM PROCESS MOLD TECHNICIAN this procedu re are in the results section. ADULT OXYGEN THERAPY Routine 04/27/2021 8:01 AM PROCESS MOLD TECHNICIAN CBC WITH Routine 04/26/2021 8:18 Results for DIFFERENTIAL, B PM PROCESS MOLD TECHNICIAN this procedu re are in the results section. ADULT OXYGEN THERAPY Routine 04/26/2021 8:00 PM PROCESS MOLD TECHNICIAN CBC WITHOUT Timed 04/26/2021 2:53 Results for DIFFERENTIAL, B PM PROCESS MOLD TECHNICIAN this procedu re are in the results section. ADULT OXYGEN THERAPY Routine 04/26/2021 8:01 AM PROCESS MOLD TECHNICIAN DX CHEST PORTABLE 1 RAD - Routine 04/26/2021 5:56 Resu lts for VIEW (most inpatients AM PROCESS MOLD TECHNICIAN this proced ure and all are in the outpatients) results section. DX ABDOMEN PORTABLE RAD - Routine 04/25/2021 8:50 Resu lts for ANTERIOR POSTERIOR 1 (most inpatients PM PROCESS MOLD TECHNICIAN thi s procedure VIEW and all are in the outpatients) results section. CBC WITHOUT Routine 04/25/2021 8:29 Results for DIFFERENTIAL, B PM PROCESS MOLD TECHNICIAN this procedu re are in the results section. BASIC METABOLIC Routine 04/25/2021 8:29 Results f or PANEL, S/P PM PROCESS MOLD TECHNICIAN this procedure are in the results section. ADULT OXYGEN THERAPY Routine 04/25/2021 8:00 PM PROCESS MOLD TECHNICIAN GLUCOSE POCT, B Routine 04/25/2021 11:29 Results for AM PROCESS MOLD TECHNICIAN this procedure are in the results section. GLUCOSE POCT, B Routine 04/25/2021 9:38 Results f or AM PROCESS MOLD TECHNICIAN this procedure are in the results section. DX ABDOMEN PORTABLE RAD - Semiurgent 04/25/2021 8:40 R esults for ANTERIOR POSTERIOR 1 (Fast; most ED AM PROCESS MOLD TECHNICIAN this procedure VIEW patients; some are in the inpatients) results section. ADULT OXYGEN THERAPY Routine 04/25/2021 8:01 AM PROCESS MOLD TECHNICIAN PATIENT STATUS Routine 04/25/2021 4:46 Results fo r AM PROCESS MOLD TECHNICIAN this procedure are in the results section. ABG W/COOX Routine 04/25/2021 4:46 Results for AM PROCESS MOLD TECHNICIAN this procedure are in the results section. CLOZAPINE, S Routine 04/25/2021 4:40 Results for AM PROCESS MOLD TECHNICIAN this procedure are in the results section. CBC WITHOUT Routine 04/25/2021 4:40 Results for DIFFERENTIAL, B AM PROCESS MOLD TECHNICIAN this procedu re are in the results section. MAGNESIUM, S Routine 04/25/2021 4:40 Results for AM PROCESS MOLD TECHNICIAN this procedure are in the results section. BASIC METABOLIC Routine 04/25/2021 4:40 Results f or PANEL, S/P AM PROCESS MOLD TECHNICIAN this procedure are in the results section. THROMBOELASTOGRAPH, Routine 04/25/2021 4:38 Resul ts for KAOLIN, B AM PROCESS MOLD TECHNICIAN this procedure are in the results section. DX CHEST PORTABLE 1 RAD - Routine 04/25/2021 4:11 Resu lts for VIEW (most inpatients AM PROCESS MOLD TECHNICIAN this proced ure and all are in the outpatients) results section. GLUCOSE POCT, B Routine 04/25/2021 3:34 Results f or AM PROCESS MOLD TECHNICIAN this procedure are in the results section. GLUCOSE POCT, B Routine 04/25/2021 12:06 Results for AM PROCESS MOLD TECHNICIAN this procedure are in the results section. DX ABDOMEN PORTABLE RAD - Routine 2021 11:05 Res ults for ANTERIOR POSTERIOR 1 (most inpatients PM PROCESS MOLD TECHNICIAN thi s procedure VIEW and all are in the outpatients) results section. ADULT OXYGEN THERAPY Routine 2021 8:00 PM PROCESS MOLD TECHNICIAN PROTHROMBIN TIME Timed 2021 6:57 Results for (PT), P PM PROCESS MOLD TECHNICIAN this procedure are in the results section. CBC WITHOUT Timed 2021 6:57 Results for DIFFERENTIAL, B PM PROCESS MOLD TECHNICIAN this procedu re are in the results section. LACTATE, B/P Timed 2021 6:57 Results for PM PROCESS MOLD TECHNICIAN this procedure are in the results section. BASIC METABOLIC Timed 2021 6:57 Results f or PANEL, S/P PM PROCESS MOLD TECHNICIAN this procedure are in the results section. TROPONIN T, 2H/6H, Timed 2021 2:55 Result s for 5TH GEN, P PM PROCESS MOLD TECHNICIAN this procedure are in the results section. CLOZAPINE, S Timed 2021 2:55 Results for PM PROCESS MOLD TECHNICIAN this procedure are in the results section. SARS CORONAVIRUS 2, Routine 2021 2:29 Resul ts for RNA, RAPID POC, V PM PROCESS MOLD TECHNICIAN this proce dure are in the results section. DX ABDOMEN PORTABLE RAD - Routine 2021 2:17 Resu lts for ANTERIOR POSTERIOR 1 (most inpatients PM PROCESS MOLD TECHNICIAN thi s procedure VIEW and all are in the outpatients) results section. PATIENT STATUS STAT 2021 1:00 Results fo r PM PROCESS MOLD TECHNICIAN this procedure are in the results section. ABG W/COOX STAT 2021 1:00 Results for PM PROCESS MOLD TECHNICIAN this procedure are in the results section. CALCIUM, IONIZED, S/B STAT 2021 1:00 Res ults for PM PROCESS MOLD TECHNICIAN this procedure are in the results section. TROPONIN T, BASELINE, STAT 2021 12:57 Re sults for 5TH GEN, P PM PROCESS MOLD TECHNICIAN this procedure are in the results section. HEPATIC FUNCTION STAT 2021 12:57 Results for PANEL, S PM PROCESS MOLD TECHNICIAN this procedure are in the results section. CBC WITHOUT STAT 2021 12:57 Results for DIFFERENTIAL, B PM PROCESS MOLD TECHNICIAN this procedu re are in the results section. TYPE AND SCREEN Routine 2021 12:57 Results for PM PROCESS MOLD TECHNICIAN this procedure are in the results section. LACTATE, B/P STAT 2021 12:57 Results for PM PROCESS MOLD TECHNICIAN this procedure are in the results section. BASIC METABOLIC STAT 2021 12:57 Results for PANEL, S/P PM PROCESS MOLD TECHNICIAN this procedure are in the results section. THROMBOELASTOGRAPH, STAT 2021 12:55 Resu lts for KAOLIN, B PM PROCESS MOLD TECHNICIAN this procedure are in the results section. CBC WITH Routine 2021 12:41 Results for DIFFERENTIAL, B PM PROCESS MOLD TECHNICIAN this procedu re are in the results section. DX CHEST PORTABLE 1 RAD - Routine 2021 12:34 Res ults for VIEW (most inpatients PM PROCESS MOLD TECHNICIAN this proced ure and all are in the outpatients) results section. DX ABDOMEN PORTABLE RAD - Semiurgent 2021 12:33 Results for ANTERIOR POSTERIOR 1 (Fast; most ED PM PROCESS MOLD TECHNICIAN this procedure VIEW patients; some are in the inpatients) results section. INTERPRETATION OF RAD - Routine 2021 12:25 Resul ts for OUTSIDE CT ABDOMEN (most inpatients PM PROCESS MOLD TECHNICIAN this procedure AND OR PELVIS and all are in the outpatients) results section. ECG STAT 2021 12:15 Results for PM PROCESS MOLD TECHNICIAN this procedure are in the results section. ADULT OXYGEN THERAPY Routine 2021 11:59 AM PROCESS MOLD TECHNICIAN ADULT OXYGEN THERAPY Routine 2021 11:59 AM PROCESS MOLD TECHNICIAN documented in this encounter Results SARS Coronavirus 2, RNA, Rapid POC, V Asymptomatic (04/28/2021 12:58 AM PROCESS MOLD TECHNICIAN) [facility] Method Time Signature SARS Undetected Undetected 04/28/2021 DTLR Coronavirus-2 1:19 AM PROCESS MOLD TECHNICIAN , RNA, Rapid POC, V Comment: Negative for SARS-CoV-2. The sofatutor COVID-19 test is a molecular erin t for SARS-CoV-2, the virus that causes COVID- 19. A Negative result means that the sofatutor COV ID-19 test did not detect SARS-CoV-2 virus in your sample. sofatutor COVID-19 test uses the [employer] Mo nitoring System. This test has received Emergency Use Authorization (EUA) by the U.S. Food and Drug Administration (FDA) and is used per man ufacturer instructions. Performance characteristic s were verified by [facility] in a manner consistent with CLIA requirements. Fact sheets for this Emerg ency Use Authorization (EUA) can be found at the following links: Providers: https://[employer].com/documentation/prov iders.pdf Patients: https://[employer].com/documentation/dinora ents.pdf SARS Coronavirus 2, Source Nasopharynx DEFAULT 04/28/2021 1:19 AM PROCESS MOLD TECHNICIAN DTLR Specimen Anatomical Collection Method Collection Time Receive d Time (Source) Location / / Volume Laterality Varies 04/28/2021 12:58 04/28/2021 (Nasopharynx) AM PROCESS MOLD TECHNICIAN 12:58 AM PROCESS MOLD TECHNICIAN Narciso RamirezSElvi LAB MICROBIOLOGY - GENERAL O RDERABLES Performing Organization Address City/[facility] Code Phon e Number PERFORMING LABS, [place] [address] INTERFACE Ref Interface [address] [facility] DT Performing Labs, [place] [address] Interface [address] [facility] (ABNORMAL) CBC without Differential (04/27/2021 8:20 PM PROCESS MOLD TECHNICIAN) [facility] Method Time Signature Hemoglobin 10.8 (L) 11.6 - 04/27/2021 DTL 15.0 g/dL 8:39 PM PROCESS MOLD TECHNICIAN Hematocrit 33.6 (L) 35.5 - 04/27/2021 DTL 44.9 % 8:39 PM PROCESS MOLD TECHNICIAN Erythrocytes 3.83 (L) 3.92 - 04/27/2021 DTL 5.13 8:39 PM PROCESS MOLD TECHNICIAN x10(12)/L MCV 87.7 78.2 - 04/27/2021 DTL 97.9 fL 8:39 PM PROCESS MOLD TECHNICIAN RBC Distrib Width 13.4 12.2 - 04/27/2021 DTL 16.1 % 8:39 PM PROCESS MOLD TECHNICIAN Platelet Count 195 157 - 371 04/27/2021 DTL x10(9)/L 8:39 PM PROCESS MOLD TECHNICIAN Leukocytes 7.7 3.4 - 9.6 04/27/2021 DTL x10(9)/L 8:39 PM PROCESS MOLD TECHNICIAN Specimen Anatomical Collection Method Collection Time Receive d Time (Source) Location / / Volume Laterality Blood (Blood, 04/27/2021 8:20 PM 04/27/20 21 8:33 Venous) PROCESS MOLD TECHNICIAN PM PROCESS MOLD TECHNICIAN Narciso RamirezSElvi LAB BLOOD ADD-ON Performing Organization Address City/[facility] Code Phon e Number [facility] - [address] [place], [place] [address] [facility] [place] [address] Laboratories-[facility] [address] [facility] (ABNORMAL) CBC with Differential, Blood (04/26/2021 8:18 PM PROCESS MOLD TECHNICIAN) [facility] Method Time Signature Hemoglobin 10.8 (L) 11.6 - 04/26/2021 DTL 15.0 g/dL 9:02 PM PROCESS MOLD TECHNICIAN Hematocrit 33.9 (L) 35.5 - 04/26/2021 DTL 44.9 % 9:02 PM PROCESS MOLD TECHNICIAN Erythrocytes 3.82 (L) 3.92 - 04/26/2021 DTL 5.13 9:02 PM PROCESS MOLD TECHNICIAN x10(12)/L MCV 88.7 78.2 - 04/26/2021 DTL 97.9 fL 9:02 PM PROCESS MOLD TECHNICIAN RBC Distrib Width 13.6 12.2 - 04/26/2021 DTL 16.1 % 9:02 PM PROCESS MOLD TECHNICIAN Platelet Count 182 157 - 371 04/26/2021 DTL x10(9)/L 9:02 PM PROCESS MOLD TECHNICIAN Leukocytes 7.6 3.4 - 9.6 04/26/2021 DTL x10(9)/L 9:02 PM PROCESS MOLD TECHNICIAN Neutrophils 5.19 1.56 - 04/26/2021 DTL 6.45 9:02 PM PROCESS MOLD TECHNICIAN x10(9)/L Lymphocytes 1.83 0.95 - 04/26/2021 DTL 3.07 9:02 PM PROCESS MOLD TECHNICIAN x10(9)/L Monocytes 0.41 0.26 - 04/26/2021 DTL 0.81 9:02 PM PROCESS MOLD TECHNICIAN x10(9)/L Eosinophils 0.04 0.03 - 04/26/2021 DTL 0.48 9:02 PM PROCESS MOLD TECHNICIAN x10(9)/L Basophils 0.08 0.01 - 04/26/2021 DTL 0.08 9:02 PM PROCESS MOLD TECHNICIAN x10(9)/L Specimen Anatomical Collection Method Collection Time Receive d Time (Source) Location / / Volume Laterality Blood (Blood, 04/26/2021 8:18 PM 04/26/20 21 8:55 Venous) PROCESS MOLD TECHNICIAN PM PROCESS MOLD TECHNICIAN Sudarshan Lomeli Jr., IMAGING ANALYST, C.N.P., M.S.N. LAB BLOOD AD D-ON Performing Organization Address City/State/ZIP Code Phon e Number [facility] - [address] [place], [place] [address] [facility] [place] [address] Laboratories-[facility] [address] (ABNORMAL) CBC without Differential (04/26/2021 2:53 PM PROCESS MOLD TECHNICIAN) [facility] gist Method Time Signature Hemoglobin 11.2 (L) 11.6 - 04/26/2021 DTL 15.0 g/dL 3:30 PM PROCESS MOLD TECHNICIAN Hematocrit 35.6 35.5 - 04/26/2021 DTL 44.9 % 3:30 PM PROCESS MOLD TECHNICIAN Erythrocytes 3.95 3.92 - 04/26/2021 DTL 5.13 3:30 PM PROCESS MOLD TECHNICIAN x10(12)/L MCV 90.1 78.2 - 04/26/2021 DTL 97.9 fL 3:30 PM PROCESS MOLD TECHNICIAN RBC Distrib Width 13.7 12.2 - 04/26/2021 DTL 16.1 % 3:30 PM PROCESS MOLD TECHNICIAN Platelet Count 143 (L) 157 - 371 04/26/2021 DTL x10(9)/L 3:30 PM PROCESS MOLD TECHNICIAN Leukocytes 7.1 3.4 - 9.6 04/26/2021 DTL x10(9)/L 3:30 PM PROCESS MOLD TECHNICIAN Specimen Anatomical Collection Method Collection Time Receive d Time (Source) Location / / Volume Laterality Blood (Blood, 04/26/2021 2:53 PM 04/26/20 3:22 Venous) PROCESS MOLD TECHNICIAN PM PROCESS MOLD TECHNICIAN Sudarshan Lomeli Jr., IMAGING ANALYST, C.N.P., M.S.N. LAB BLOOD AD D-ON Performing Organization Address City/State/ZIP Code Phon e Number [facility] - [address] [place] [address] [facility] [place] [address] [facility] [address] [facility] DX Chest Portable 1 View (04/26/2021 5:56 AM PROCESS MOLD TECHNICIAN) Anatomical Region Laterality Modality Chest, Thoracic RST LOS, Thoracic ARZ LOS, Thoracic N/A Digital Radiography FLA LOS Specimen (Source) Anatomical Collection Method Collection Time Re ceived Time Location / / Volume Laterality 04/26/2021 6:25 AM PROCESS MOLD TECHNICIAN Impressions 04/26/2021 6:26 AM PROCESS MOLD TECHNICIAN No significant change since 04/25/2021. Diffuse bilateral pulmonary opacities. Postoperative changes left renu ng. NG tube tip below the diaphragm. Narrative 04/26/2021 6:26 AM PROCESS MOLD TECHNICIAN EXAM: ??DX CHEST PORTABLE 1 VIEW Procedure Note Jose Enrique Maharaj M.D. - 04/26/2021Forma tting of this note might be different from the original. EXAM: DX CHEST PORTABLE 1 VIEW IMPRESSION: No significant change since 04/25/2021. Diffuse bilateral pulmonary opacities. Postoperative changes left renu ng. NG tube tip below the diaphragm. Andrew Bazan M.D., M.S. IMG DIAGNOSTIC IMAGING PROCE CASSIE DX Abdomen Portable Anterior Posterior 1 View (04/25/2021 8:50 PM PROCESS MOLD TECHNICIAN) Anatomical Region Laterality Modality Abdomen, Abdominal RST LOS, Abdominal ARZ LOS, N/A Digital Radiography Abdominal FLA LOS Specimen (Source) Anatomical Collection Method Collection Time Re ceived Time Location / / Volume Laterality 04/25/2021 9:30 PM PROCESS MOLD TECHNICIAN Impressions 04/26/2021 7:28 AM PROCESS MOLD TECHNICIAN Since 04/17/2021 and 0835, no significant change. Enteric tube with tip within the stomach and sidehole near the GE junction. Recommend advancing 2 to 3 cm for more optimal position. Dilat ed small bowel loop in the mid lower abdomen. Multifocal and bilateral patchy consolidation and reticular pulmonary opacities. Ectatic and/or tortuous desce nding thoracic aorta with calcification. Degenerative changes of the skeleton. Th oracolumbar spinal levocurvature. Narrative 04/26/2021 7:28 AM PROCESS MOLD TECHNICIAN EXAM: ??DX ABDOMEN PORTABLE ANTERIOR POSTERIOR 1 VIEW Procedure Note Anita Sanchez M.D. - 04/26/2021Formatt ing of this note might be different from the original. EXAM: DX ABDOMEN PORTABLE ANTERIOR POSTE RIOR 1 VIEW IMPRESSION: Since 04/17/2021 and 0835, no significan t change. Enteric tube with tip within the stomach and sidehole near the GE junction. Recommend advancing 2 to 3 cm for more optimal position. Dilat ed small bowel loop in the mid lower abdomen. Multifocal and bilateral patchy consolidation and reticular pulmonary opacities. Ectatic and/or tortuous desce nding thoracic aorta with calcification. Degenerative changes of the skeleton. Th oracolumbar spinal levocurvature. Mikel Powell II, M.D. IMSandra DIAGNOSTIC IMAGING PROCE CASSIE (ABNORMAL) Basic Metabolic Panel (04/25/2021 8:29 PM PROCESS MOLD TECHNICIAN) P athologist Signature Potassium, S 3.7 3.6 - 5.2 04/25/2021 DTL mmol/L 9:11 PM PROCESS MOLD TECHNICIAN Sodium, S 146 (H) 135 - 145 04/25/2021 DTL mmol/L 9:11 PM PROCESS MOLD TECHNICIAN Chloride, S 112 (H) 98 - 107 04/25/2021 DTL mmol/L 9:11 PM PROCESS MOLD TECHNICIAN Bicarbonate, S 25 22 - 29 04/25/2021 DTL mmol/L 9:11 PM PROCESS MOLD TECHNICIAN Anion Gap 9 7 - 15 04/25/2021 DTL 9:11 PM PROCESS MOLD TECHNICIAN BUN (Blood Urea 28 (H) 6 - 21 04/25/2021 DTL Nitrogen), S mg/dL 9:11 PM PROCESS MOLD TECHNICIAN Creatinine 0.64 0.59 - 04/25/2021 DTL 1.04 mg/dL 9:11 PM PROCESS MOLD TECHNICIAN eGFR-Non >90 >=60 04/25/2021 DTL Black/ mL/min/BSA 9:11 PM PROCESS MOLD TECHNICIAN Jamaican Comment: ----ADDITIONAL INFORMATION---- Estimated GFR calculated using the 2009 CKD_EPI creatinine equation. eGFR-Black/ >90 >=60 mL/min/BSA 2020 9:11 PM PROCESS MOLD TECHNICIAN DTL Comment: ----ADDITIONAL INFORMATION---- Estimated GFR calculated using the 2009 CKD_EPI creatinine equation. Calcium, Total, S 8.5 (L) 8.8 - 10.2 mg/dL 04/25/2021 9:11 PM PROCESS MOLD TECHNICIAN DTL Glucose, S 147 (H) 70 - 140 mg/dL 04/25/2021 9:11 PM PROCESS MOLD TECHNICIAN D TL Specimen Anatomical Collection Method Collection Time Receive d Time (Source) Location / / Volume Laterality Blood (Blood, 04/25/2021 8:29 PM 04/25/20 8:57 Venous) PROCESS MOLD TECHNICIAN PM PROCESS MOLD TECHNICIAN Andrew Bazan M.D., M.S. LAB BLOOD ADD-ON Performing Organization Address City/State/ZIP Code Phon e Number [facility] - [address] [place], [place] [address] [facility] [place] [address] [facility] [address] CBC without Differential (04/25/2021 8:29 PM PROCESS MOLD TECHNICIAN) P athologist Signature Hemoglobin 11.7 11.6 - 04/25/2021 DTL 15.0 g/dL 8:52 PM PROCESS MOLD TECHNICIAN Hematocrit 37.7 35.5 - 04/25/2021 DTL 44.9 % 8:52 PM PROCESS MOLD TECHNICIAN Erythrocytes 4.15 3.92 - 04/25/2021 DTL 5.13 8:52 PM PROCESS MOLD TECHNICIAN x10(12)/L MCV 90.8 78.2 - 04/25/2021 DTL 97.9 fL 8:52 PM PROCESS MOLD TECHNICIAN RBC Distrib Width 13.9 12.2 - 04/25/2021 DTL 16.1 % 8:52 PM PROCESS MOLD TECHNICIAN Platelet Count 186 157 - 371 04/25/2021 DTL x10(9)/L 8:52 PM PROCESS MOLD TECHNICIAN Leukocytes 6.1 3.4 - 9.6 04/25/2021 DTL x10(9)/L 8:52 PM PROCESS MOLD TECHNICIAN Specimen Anatomical Collection Method Collection Time Receive d Time (Source) Location / / Volume Laterality Blood (Blood, 04/25/2021 8:29 PM 04/25/20 8:46 Venous) PROCESS MOLD TECHNICIAN PM PROCESS MOLD TECHNICIAN Andrew Bazan M.D., M.S. LAB BLOOD ADD-ON Performing Organization Address City/[facility]/ZIP [facility] Phon e Number [facility] - [address] [place], [place] [address] [facility] [place], [place] [id number] [place] [address] Glucose, POCT (04/25/2021 11:29 AM PROCESS MOLD TECHNICIAN) athologist Signature Glucose, POCT, 104 70 - 140 04/25/2021 PCLX B mg/dL 11:30 AM PROCESS MOLD TECHNICIAN Site ARTLINE 04/25/2021 PCLX 11:30 AM PROCESS MOLD TECHNICIAN Specimen Anatomical Collection Method Collection Time Receive d Time (Source) Location / / Volume Laterality Blood 04/25/2021 11:29 04/25/2021 AM PROCESS MOLD TECHNICIAN 11:31 AM PROCESS MOLD TECHNICIAN Unknown Provider LAB POCT ORDERABLES-MANUAL Performing Organization Address City/[facility] Phon e Number POC [facility] [address] [place] [address] [place] [address] [facility] 200 [facility] Glucose, POCT (04/25/2021 9:38 AM PROCESS MOLD TECHNICIAN) athologist Signature Glucose, POCT, 125 70 - 140 04/25/2021 PCLX B mg/dL 9:40 AM PROCESS MOLD TECHNICIAN Site ARTLINE 04/25/2021 PCLX 9:40 AM PROCESS MOLD TECHNICIAN Specimen Anatomical Collection Method Collection Time Receive d Time (Source) Location / / Volume Laterality Blood 04/25/2021 9:38 AM 9:40 PROCESS MOLD TECHNICIAN AM PROCESS MOLD TECHNICIAN Unknown Provider LAB POCT ORDERABLES-MANUAL Performing Organization Address City/State/ZIP Code Phon e Number POC [facility] [address] [place] [address] [facility] [place] [address] [place] [facility] [address] DX Abdomen Portable Anterior Posterior 1 View (04/25/2021 8:40 AM PROCESS MOLD TECHNICIAN) Anatomical Region Laterality Modality Abdomen, Abdominal RST LOS, Abdominal ARZ LOS, N/A Digital Radiography Abdominal FLA LOS Specimen (Source) Anatomical Collection Method Collection Time Re ceived Time Location / / Volume Laterality 04/25/2021 8:42 AM PROCESS MOLD TECHNICIAN Impressions 04/25/2021 8:45 AM PROCESS MOLD TECHNICIAN Dilatation of multiple loops of small bowel. Since yesterday, contrast materials progressed from the s mall bowel to the colon with contrast material located at least to the level o f the descending colon. Decrease in gaseous distention of the stomach. NGT w ith tip and sidehole in the stomach. The sidehole is located just distal to the E G junction. Opacities in both lungs. Left thoracotom y. Narrative 04/25/2021 8:45 AM PROCESS MOLD TECHNICIAN EXAM: ??DX ABDOMEN PORTABLE ANTERIOR POSTERIOR 1 VIEW Procedure Note Polly Harp M.D. - 04/25/2021Format ting of this note might be different from the original. EXAM: DX ABDOMEN PORTABLE ANTERIOR POSTE RIOR 1 VIEW IMPRESSION: Dilatation of multiple loops of small keshawn wel. Since yesterday, contrast materials progressed from the s mall bowel to the colon with contrast material located at least to the level o f the descending colon. Decrease in gaseous distention of the stomach. NGT w ith tip and sidehole in the stomach. The sidehole is located just distal to the E G junction. Opacities in both lungs. Left thoracotom y. Ziggy Delgado APRN, C.N.P. IMG DIAGNOSTIC IMAGING PROCE [facility] Patient Status (04/25/2021 4:46 AM PROCESS MOLD TECHNICIAN) P athologist Signature O2 Flow 4.5 L/min 04/25/2021 STMA 4:50 AM PROCESS MOLD TECHNICIAN Device BPAP 04/25/2021 [facility]MA 4:50 AM PROCESS MOLD TECHNICIAN Spont. 22 04/25/2021 [facility]MA breaths/min 4:50 AM PROCESS MOLD TECHNICIAN Specimen Anatomical Collection Method Collection Time Receive d Time (Source) Location / / Volume Laterality Blood 04/25/2021 4:46 AM 4:50 PROCESS MOLD TECHNICIAN AM PROCESS MOLD TECHNICIAN Alexis Peraza P.A.-C. LAB BLOOD NON ADD-ON Performing Organization Address City/State/ZIP Code Phon e Number [facility] - [address] [place], [place] [address] [facility] [place] [address] Laboratories-[facility] [address] [facility] (ABNORMAL) Blood Gas with Coox, Arterial (04/25/2021 4:46 AM PROCESS MOLD TECHNICIAN) P athologist Signature pO2 72 (L) 83 - 108 04/25/2021 STMA mm Hg 4:52 AM PROCESS MOLD TECHNICIAN pCO2 43 32 - 45 mm 04/25/2021 STMA Hg 4:52 AM PROCESS MOLD TECHNICIAN pH 7.44 7.35 - 04/25/2021 STMA 7.45 pH 4:52 AM PROCESS MOLD TECHNICIAN Base Excess 6 (H) -2 - 3 04/25/2021 [facility]MA mmol/L 4:52 AM PROCESS MOLD TECHNICIAN HCO3 30 (H) 22 - 26 04/25/2021 [facility] mmol/L 4:52 AM PROCESS MOLD TECHNICIAN Hemoglobin, B 11.1 (L) 11.6 - 04/25/2021 [facility]MA 15.0 g/dL 4:52 AM PROCESS MOLD TECHNICIAN O2Hb 93.6 (L) 94.0 - 04/25/2021 [facility]MA 98.0 % 4:52 AM PROCESS MOLD TECHNICIAN COHb 1.5 <3.0 % 04/25/2021 STMA 4:52 AM PROCESS MOLD TECHNICIAN MetHb <1.0 <1.5 % 04/25/2021 STMA 4:52 AM PROCESS MOLD TECHNICIAN CtO2 14.7 (L) 18.0 - 04/25/2021 [facility] 21.0 vol % 4:52 AM PROCESS MOLD TECHNICIAN Arterial L-Radial 04/25/2021 [facility] Sample Site 4:52 AM PROCESS MOLD TECHNICIAN Comment: Felice's test abnormal. Specimen Anatomical Collection Method Collection Time Receive d Time (Source) Location / / Volume Laterality Blood (Blood, 04/25/2021 4:46 AM 04/25/20 4:50 Arterial) PROCESS MOLD TECHNICIAN AM PROCESS MOLD TECHNICIAN Alexis Peraza P.A.-C. LAB BLOOD NON ADD-ON Performing Organization Address City/State/ZIP Code Phon e Number [facility] - [address] [place], [place] [address] [facility] [place] [place] [address] Laboratories-[facility] [address] Clozapine (Clozaril), Level (04/25/2021 4:40 AM PROCESS MOLD TECHNICIAN) Patholo gist Method Time Signature Clozapine 395 350 - 600 ng/mL 04/25/2021 [facility] 6:15 PM PROCESS MOLD TECHNICIAN Norclozapine 186 Not well 04/25/2021 [facility] established 6:15 PM PROCESS MOLD TECHNICIAN ng/mL Clozapine+Norclo 581 Not well 04/25/2021 [facility] zapine Total established 6:15 PM PROCESS MOLD TECHNICIAN ng/mL Comment: ----ADDITIONAL INFORMATION---- This test was developed and its performa nce characteristics determined by [facility] in a manner consistent with CLIA requirements. This test has not been cleared or approved by the U.S. Jeff d and Drug Administration. Specimen Anatomical Collection Method Collection Time Receive d Time (Source) Location / / Volume Laterality Blood (Blood, 04/25/2021 4:40 AM 04/25/20 Venous) PROCESS MOLD TECHNICIAN 12:48 PM PROCESS MOLD TECHNICIAN Alexis Peraza P.A.-C. LAB BLOOD NON ADD-ON Performing Organization Address City/State/ZIP Code Phon e Number [facility] [address] [place], [place] [address] [facility] [place] [address] Laboratory Medicine and Pathology [address] [place] (ABNORMAL) Magnesium (04/25/2021 4:40 AM PROCESS MOLD TECHNICIAN) P athologist Signature Magnesium, S 2.4 (H) 1.7 - 2.3 04/25/2021 DTL mg/dL 5:53 AM PROCESS MOLD TECHNICIAN Specimen Anatomical Collection Method Collection Time Receive d Time (Source) Location / / Volume Laterality Blood (Blood, 04/25/2021 4:40 AM 04/25/20 5:30 Venous) PROCESS MOLD TECHNICIAN AM PROCESS MOLD TECHNICIAN Alexis Reid-C. LAB BLOOD ADD-ON Performing Organization Address [facility] Phon e Number [facility] - [address] [place], [place] [id number] [place] [address] (ABNORMAL) CBC without Differential (04/25/2021 4:40 AM PROCESS MOLD TECHNICIAN) Patholo gist Method Time Signature Hemoglobin 10.9 (L) 11.6 - 04/25/2021 DTL 15.0 g/dL 5:22 AM PROCESS MOLD TECHNICIAN Hematocrit 34.6 (L) 35.5 - 04/25/2021 DTL 44.9 % 5:22 AM PROCESS MOLD TECHNICIAN Erythrocytes 3.84 (L) 3.92 - 04/25/2021 DTL 5.13 5:22 AM PROCESS MOLD TECHNICIAN x10(12)/L MCV 90.1 78.2 - 04/25/2021 DTL 97.9 fL 5:22 AM PROCESS MOLD TECHNICIAN RBC Distrib Width 14.0 12.2 - 04/25/2021 DTL 16.1 % 5:22 AM PROCESS MOLD TECHNICIAN Platelet Count 186 157 - 371 04/25/2021 DTL x10(9)/L 5:22 AM PROCESS MOLD TECHNICIAN Leukocytes 5.5 3.4 - 9.6 04/25/2021 DTL x10(9)/L 5:22 AM PROCESS MOLD TECHNICIAN Specimen Anatomical Collection Method Collection Time Receive d Time (Source) Location / / Volume Laterality Blood (Blood, 04/25/2021 4:40 AM 04/25/20 5:12 Venous) PROCESS MOLD TECHNICIAN AM PROCESS MOLD TECHNICIAN Alexis Peraza P.A.-C. LAB BLOOD ADD-ON Performing Organization Address City/[facility] Phon e Number [facility] - [address] [place], [place] [address] [facility] [place], [place] [id number] [place] [address] (ABNORMAL) Basic Metabolic Panel (04/25/2021 4:40 AM PROCESS MOLD TECHNICIAN) P athologist Signature Potassium, S 4.2 3.6 - 5.2 04/25/2021 DTL mmol/L 5:53 AM PROCESS MOLD TECHNICIAN Sodium, S 147 (H) 135 - 145 04/25/2021 DTL mmol/L 5:53 AM PROCESS MOLD TECHNICIAN Chloride, S 111 (H) 98 - 107 04/25/2021 DTL mmol/L 5:53 AM PROCESS MOLD TECHNICIAN Bicarbonate, S 27 22 - 29 04/25/2021 DTL mmol/L 5:53 AM PROCESS MOLD TECHNICIAN Anion Gap 9 7 - 15 04/25/2021 DTL 5:53 AM PROCESS MOLD TECHNICIAN BUN (Blood Urea 35 (H) 6 - 21 04/25/2021 DTL Nitrogen), S mg/dL 5:53 AM PROCESS MOLD TECHNICIAN Creatinine 0.68 0.59 - 04/25/2021 DTL 1.04 mg/dL 5:53 AM PROCESS MOLD TECHNICIAN eGFR-Non >90 >=60 04/25/2021 DTL Black/ mL/min/BSA 5:53 AM PROCESS MOLD TECHNICIAN Jamaican Comment: ----ADDITIONAL INFORMATION---- Estimated GFR calculated using the 2009 CKD_EPI creatinine equation. eGFR-Black/ >90 >=60 mL/min/BSA 2020 5:53 AM PROCESS MOLD TECHNICIAN DTL Comment: ----ADDITIONAL INFORMATION---- Estimated GFR calculated using the 2009 CKD_EPI creatinine equation. Calcium, Total, S 8.8 8.8 - 10.2 mg/dL 04/25/2021 5:53 AM PROCESS MOLD TECHNICIAN DTL Glucose, S 133 70 - 140 mg/dL 04/25/2021 5:53 AM PROCESS MOLD TECHNICIAN D TL Specimen Anatomical Collection Method Collection Time Receive d Time (Source) Location / / Volume Laterality Blood (Blood, 04/25/2021 4:40 AM 04/25/20 5:30 Venous) PROCESS MOLD TECHNICIAN AM PROCESS MOLD TECHNICIAN Alexis Peraza P.A.-C. LAB BLOOD ADD-ON Performing Organization Address City/State/ZIP Code Phon e Number [facility] - [address] [place], [place] [address] [facility] [place] [address] [facility] [address] [facility] Thromboelastograph, Kaolin, Blood (04/25/2021 4:38 AM PROCESS MOLD TECHNICIAN) P athologist Signature R, Kaolin, TEG 5.5 4.0 - 9.0 04/25/2021 STMA min 5:42 AM PROCESS MOLD TECHNICIAN K, Kaolin, TEG 1.5 0.9 - 1.7 04/25/2021 STMA min 5:42 AM PROCESS MOLD TECHNICIAN Angle, Kaolin, 72.5 66.2 - 80.3 04/25/2021 [facility]MA TEG degrees 5:42 AM PROCESS MOLD TECHNICIAN Rohini WILKINSON, 73.9 55.2 - 77.0 04/25/2021 [facility]MA TEG mm 5:42 AM PROCESS MOLD TECHNICIAN Ly30Rohini, 1.3 0.0 - 4.8 % 04/25/2021 STMA TEG 5:42 AM PROCESS MOLD TECHNICIAN Specimen Anatomical Collection Method Collection Time Receive d Time (Source) Location / / Volume Laterality Blood (Blood, 04/25/2021 4:38 AM 04/25/20 4:38 Venous) PROCESS MOLD TECHNICIAN AM PROCESS MOLD TECHNICIAN Haley Canales M.D. LAB BLOOD NON ADD-ON Performing Organization Address City/State/ZIP Code Phon e Number [facility] - [address] [place], [place] [address] [facility] [place] [address] [facility] [address] DX Chest Portable 1 View (04/25/2021 4:11 AM PROCESS MOLD TECHNICIAN) Anatomical Region Laterality Modality Chest, Thoracic RST LOS, Thoracic ARZ LOS, Thoracic N/A Digital Radiography FLA LOS Specimen (Source) Anatomical Collection Method Collection Time Re ceived Time Location / / Volume Laterality 04/25/2021 4:13 AM PROCESS MOLD TECHNICIAN Impressions 04/25/2021 9:31 AM PROCESS MOLD TECHNICIAN Since yesterday, enteric tube has been repositioned with tip and sidehole below the diaphragm. Postoperat armida changes left lung. Low lung volumes with bilateral patchy airspace opacities . No pneumothorax. Prominent fat pad cardiac apex Narrative 04/25/2021 9:31 AM PROCESS MOLD TECHNICIAN EXAM: ??DX CHEST PORTABLE 1 VIEW Procedure Note Ariel Lopez M.D. - 04/25/2021Forma tting of this note might be different from the original. EXAM: DX CHEST PORTABLE 1 VIEW IMPRESSION: Since yesterday, enteric tube has been r epositioned with tip and sidehole below the diaphragm. Postoperat armida changes left lung. Low lung volumes with bilateral patchy airspace opacities . No pneumothorax. Prominent fat pad cardiac apex Alexis Peraza P.A.-C. IMG DIAGNOSTIC IMAGING NE OCEDURES Glucose, POCT (04/25/2021 3:34 AM PROCESS MOLD TECHNICIAN) P athologist Signature Glucose, POCT, 129 70 - 140 04/25/2021 PCLX B mg/dL 3:35 AM PROCESS MOLD TECHNICIAN Last Intake NPO 04/25/2021 PCLX 3:35 AM PROCESS MOLD TECHNICIAN Specimen Anatomical Collection Method Collection Time Receive d Time (Source) Location / / Volume Laterality Blood 04/25/2021 3:34 AM 3:36 PROCESS MOLD TECHNICIAN AM PROCESS MOLD TECHNICIAN Unknown Provider LAB POCT ORDERABLES-MANUAL Performing Organization Address City/State/ZIP [facility] Phon e Number POC [facility] [address] [place] [address] [place] [address] [place] [facility] [address] [facility] Glucose, POCT (04/25/2021 12:06 AM PROCESS MOLD TECHNICIAN) athologist Signature Glucose, POCT, 118 70 - 140 04/25/2021 [facility] B mg/dL 12:08 AM PROCESS MOLD TECHNICIAN Last Intake NPO 04/25/2021 PCLX 12:08 AM PROCESS MOLD TECHNICIAN Specimen Anatomical Collection Method Collection Time Receive d Time (Source) Location / / Volume Laterality Blood 04/25/2021 12:06 04/25/2021 AM PROCESS MOLD TECHNICIAN 12:08 AM PROCESS MOLD TECHNICIAN Unknown Provider LAB POCT ORDERABLES-MANUAL Performing Organization Address City/[facility] Phon e Number POC [facility] [address] [place] [address] [place] [address] [place] [facility] [address] [facility] DX Abdomen Portable Anterior Posterior 1 View (2021 11:05 PM PROCESS MOLD TECHNICIAN) Anatomical Region Laterality Modality Abdomen, Abdominal RST LOS, Abdominal ARZ LOS, N/A Digital Radiography Abdominal FLA LOS Specimen (Source) Anatomical Collection Method Collection Time Re ceived Time Location / / Volume Laterality 04/25/2021 12:16 AM PROCESS MOLD TECHNICIAN Impressions 04/25/2021 9:06 AM PROCESS MOLD TECHNICIAN Since earlier today at 1411 hours, Gastrografin is located within stomach and the dilated small bowel in t he abdomen. No Gastrografin in the colon. Enteric tube with sidehole just d istal to the gastroesophageal junction. Narrative 04/25/2021 9:06 AM PROCESS MOLD TECHNICIAN EXAM: ??DX ABDOMEN PORTABLE ANTERIOR POSTERIOR 1 VIEW Procedure Note Polly Harp M.D. - 04/25/2021Format ting of this note might be different from the original. EXAM: DX ABDOMEN PORTABLE ANTERIOR POSTE RIOR 1 VIEW IMPRESSION: Since earlier today at 1411 hours, Gastr ografin is located within stomach and the dilated small bowel in t he abdomen. No Gastrografin in the colon. Enteric tube with sidehole just d istal to the gastroesophageal junction. Alexis Peraza P.A.-C. IMG DIAGNOSTIC IMAGING NE OCEDURES (ABNORMAL) Prothrombin Time (PT) (2021 6:57 PM PROCESS MOLD TECHNICIAN) Patholo gist Method Time Signature Prothrombin 13.5 (H) 9.4 - 12.5 2021 [facility] Time, P sec 7:17 PM PROCESS MOLD TECHNICIAN INR 1.2 0.9 - 1.1 2021 STMA 7:17 PM PROCESS MOLD TECHNICIAN Comment: ----ADDITIONAL INFORMATION---- Standard intensity warfarin therapeutic range: 2.0 to 3.0 ?? High intensity warfarin therapeutic rang e: 2.5 to 3.5 Specimen Anatomical Collection Method Collection Time Receive d Time (Source) Location / / Volume Laterality Blood (Blood, 2021 6:57 PM 04/24/20 7:01 Venous) PROCESS MOLD TECHNICIAN PM PROCESS MOLD TECHNICIAN Alexis Peraza P.A.-C. LAB BLOOD ADD-ON Performing Organization Address City/[facility]/ZIP Code Phon e Number [facility] - [address] [place], [place] [address] [facility] [place] [address] [facility] [address] Lactate (2021 6:57 PM PROCESS MOLD TECHNICIAN) P athologist Signature Lactate, P 1.4 0.5 - 2.2 2021 [facility]MA mmol/L 7:13 PM PROCESS MOLD TECHNICIAN Specimen Anatomical Collection Method Collection Time Receive d Time (Source) Location / / Volume Laterality Blood (Blood, 2021 6:57 PM 04/24/20 21 7:01 Venous) PROCESS MOLD TECHNICIAN PM PROCESS MOLD TECHNICIAN Alexis Peraza P.A.-C. LAB BLOOD NON ADD-ON Performing Organization Address City/State/[facility] Code Phon e Number [facility] - [address] [place], [place] [address] [place] [address] Laboratories-[address] CBC without Differential (2021 6:57 PM PROCESS MOLD TECHNICIAN) athologist Signature Hemoglobin 11.7 11.6 - 2021 [facility] 15.0 g/dL 7:04 PM PROCESS MOLD TECHNICIAN Hematocrit 36.7 35.5 - 2021 STMA 44.9 % 7:04 PM PROCESS MOLD TECHNICIAN Erythrocytes 4.05 3.92 - 2021 [facility] 5.13 7:04 PM PROCESS MOLD TECHNICIAN x10(12)/L MCV 90.6 78.2 - 2021 ST[facility] 97.9 fL 7:04 PM PROCESS MOLD TECHNICIAN RBC Distrib Width 14.1 12.2 - 2021 [facility] 16.1 % 7:04 PM PROCESS MOLD TECHNICIAN Platelet Count 185 157 - 371 2021 [facility] x10(9)/L 7:04 PM PROCESS MOLD TECHNICIAN Leukocytes 5.6 3.4 - 9.6 2021 [facility] x10(9)/L 7:56 PM PROCESS MOLD TECHNICIAN Comment: Results confirmed by smear. Specimen Anatomical Collection Method Collection Time Receive d Time (Source) Location / / Volume Laterality Blood (Blood, 2021 6:57 PM 04/24/20 7:01 Venous) PROCESS MOLD TECHNICIAN PM PROCESS MOLD TECHNICIAN Alexis Peraza P.A.-C. LAB BLOOD ADD-ON Performing Organization Address City/State/ZIP Code Phon e Number [facility] - [address] [place] [id number] [facility]-[address] (ABNORMAL) Basic Metabolic Panel (2021 6:57 PM PROCESS MOLD TECHNICIAN) athologist Signature Potassium, P 3.7 3.6 - 5.2 2021 [facility]MA mmol/L 7:17 PM PROCESS MOLD TECHNICIAN Sodium, P 144 135 - 145 2021 [facility] mmol/L 7:17 PM PROCESS MOLD TECHNICIAN Chloride, P 107 98 - 107 2021 [facility] mmol/L 7:17 PM PROCESS MOLD TECHNICIAN Bicarbonate, P 27 22 - 29 2021 [facility] mmol/L 7:17 PM PROCESS MOLD TECHNICIAN Anion Gap, P 10 7 - 15 2021 [facility]MA 7:17 PM PROCESS MOLD TECHNICIAN BUN (Blood Urea 34 (H) 6 - 21 2021 [facility]MA Nitrogen), P mg/dL 7:17 PM PROCESS MOLD TECHNICIAN Creatinine 0.65 0.59 - 2021 [facility] 1.04 mg/dL 7:17 PM PROCESS MOLD TECHNICIAN eGFR-Black/Afri >90 >=60 2021 STMA can Jamaican mL/min/BSA 7:17 PM PROCESS MOLD TECHNICIAN Comment: ----ADDITIONAL INFORMATION---- Estimated GFR calculated using the 2009 CKD_EPI creatinine equation. eGFR Non-Black/ >90 >=60 mL/min/BSA 2021 7:17 PM PROCESS MOLD TECHNICIAN STMA Comment: ----ADDITIONAL INFORMATION---- Estimated GFR calculated using the 2009 CKD_EPI creatinine equation. Calcium, Total, P 8.9 8.8 - 10.2 mg/dL 2021 7:17 PM PROCESS MOLD TECHNICIAN STMA Glucose, P 146 (H) 70 - 140 mg/dL 2021 7:17 PM PROCESS MOLD TECHNICIAN S TMA Specimen Anatomical Collection Method Collection Time Receive d Time (Source) Location / / Volume Laterality Blood (Blood, 2021 6:57 PM 04/24/20 7:01 Venous) PROCESS MOLD TECHNICIAN PM PROCESS MOLD TECHNICIAN Alexis Peraza P.A.-C. LAB BLOOD ADD-ON Performing Organization Address City/State/ZIP Code Phon e Number [facility] - [address] [place], [place] [address] [place] [address] [facility] [address] Clozapine (Clozaril), Level (2021 2:55 PM PROCESS MOLD TECHNICIAN) [facility] gist Method Time Signature Clozapine 537 350 - 600 ng/mL 04/25/2021 [facility] 6:15 PM PROCESS MOLD TECHNICIAN Norclozapine 237 Not well 04/25/2021 [facility] established 6:15 PM PROCESS MOLD TECHNICIAN ng/mL Clozapine+Norclo 774 Not well 04/25/2021 [facility] zapine Total established 6:15 PM PROCESS MOLD TECHNICIAN ng/mL Comment: ----ADDITIONAL INFORMATION---- This test was developed and its performa nce characteristics determined by [facility] in a manner consistent with CLIA requirements. This test has not been cleared or approved by the U.S. Jeff d and Drug Administration. Specimen Anatomical Collection Method Collection Time Receive d Time (Source) Location / / Volume Laterality Blood (Blood, 2021 2:55 PM 04/25/20 21 Venous) PROCESS MOLD TECHNICIAN 12:48 PM PROCESS MOLD TECHNICIAN Sonido Woodall P.A.-C. LAB BLOOD NON ADD-ON Performing Organization Address City/State/[facility] Code Phon e Number [facility] [address] [place], [place] [address] [place] [address] CENTER [facility] [place] [address] Laboratory Medicine and Pathology [address] [place] Troponin T, 2H/6H, 5th Gen (2021 2:55 PM PROCESS MOLD TECHNICIAN) [facility] Method Time Signature Troponin T, 2 10 <=10 ng/L 2021 [facility] hr, 5th gen 3:28 PM PROCESS MOLD TECHNICIAN 2H Delta -1 ng/L 2021 [facility] 3:28 PM PROCESS MOLD TECHNICIAN 2H Delta Not Changing 2021 [facility] Interp 3:28 PM PROCESS MOLD TECHNICIAN Troponin T, 6 CANCELED ng/L 2021 [facility] hr, 5th gen 3:28 PM PROCESS MOLD TECHNICIAN Comment: Result canceled by the ancillar y. Specimen Anatomical Collection Method Collection Time Receive d Time (Source) Location / / Volume Laterality Blood (Blood, 2021 2:55 PM 04/24/20 21 3:00 Venous) PROCESS MOLD TECHNICIAN PM PROCESS MOLD TECHNICIAN Narrative [facility] - 2021 3:28 PM PROCESS MOLD TECHNICIAN Specimen Information: Specimen ID: [id number] Specimen Type: Blood Specimen Collection Start Date: 021 ??2:55 PM Specimen Received Date: 2021 ??3: 00 PM Specimen ID: [id number] Specimen Type: Blood Specimen Collection Start Date: 021 ??3:28 PM Specimen Received Date: 2021 ??3: 28 PM Alexis Peraza P.A.-C. LAB BLOOD TROPONIN Performing Organization Address City/[facility] Code Phon e Number [facility] - [address] [place], [place] [address] [facility] [place] [address] [facility] [address] [facility] SARS Coronavirus 2, RNA, Rapid POC, V Asymptomatic (2021 2:29 PM PROCESS MOLD TECHNICIAN) [facility] Method Time Signature SARS Undetected Undetected 2021 DTLR Coronavirus-2 2:49 PM PROCESS MOLD TECHNICIAN , RNA, Rapid POC, V Comment: Negative for SARS-CoV-2. The sofatutor COVID-19 test is a molecular erin t for SARS-CoV-2, the virus that causes COVID- 19. A Negative result means that the sofatutor COV ID-19 test did not detect SARS-CoV-2 virus in your sample. [employer]fatutor COVID-19 test uses the [employer]um[employer] System. This test has received Emergency Use Authorization (EUA) by the U.S. Food and Drug Administration (FDA) and is used per man ufacturer instructions. Performance characteristic s were verified by [facility] in a manner consistent with CLIA requirements. Fact sheets for this Emerg ency Use Authorization (EUA) can be found at the following links: Providers: [email or web address]/prov iders.pdf Patients: [email or web address]/dinora ents.pdf SARS Coronavirus 2, Source Nasopharynx DEFAULT 2021 2:49 PM PROCESS MOLD TECHNICIAN DTLR Specimen Anatomical Collection Method Collection Time Receive d Time (Source) Location / / Volume Laterality Varies 2021 2:29 PM 2:29 (Nasopharynx) PROCESS MOLD TECHNICIAN PM PROCESS MOLD TECHNICIAN Alexis Peraza P.A.-C. LAB MICROBIOLOGY - GENERA L ORDERABLES Performing Organization Address City/State/ZIP Code Phon e Number PERFORMING LABS, [place] [address] INTERFACE Ref Interface [address] [facility] DTLR Performing Labs, [place] [address] Interface 200 [facility] DX Abdomen Portable Anterior Posterior 1 View (2021 2:17 PM PROCESS MOLD TECHNICIAN) Anatomical Region Laterality Modality Abdomen, Abdominal RST LOS, Abdominal ARZ LOS, N/A Digital Radiography Abdominal FLA LOS Specimen (Source) Anatomical Collection Method Collection Time Re ceived Time Location / / Volume Laterality 2021 2:22 PM PROCESS MOLD TECHNICIAN Impressions 2021 2:23 PM PROCESS MOLD TECHNICIAN Gastric tube advanced with the tip and side-port now in the proximal stomach. Gas-filled, dilated lo ops of small bowel. Narrative 2021 2:23 PM PROCESS MOLD TECHNICIAN EXAM: ??DX ABDOMEN PORTABLE ANTERIOR POSTERIOR 1 VIEW Procedure Note Willie Kennedy M.D. - 2021Formatt ing of this note might be different from the original. EXAM: DX ABDOMEN PORTABLE ANTERIOR POSTE RIOR 1 VIEW IMPRESSION: Gastric tube advanced with the tip and s sybil-port now in the proximal stomach. Gas-filled, dilated lo ops of small bowel. Alexis Peraza P.A.-C. IMG DIAGNOSTIC IMAGING NE OCEDURES Patient Status (2021 1:00 PM PROCESS MOLD TECHNICIAN) athologist Signature O2 Flow 3.0L L/min 2021 STMA 1:08 PM PROCESS MOLD TECHNICIAN Device NC 2021 STMA 1:08 PM PROCESS MOLD TECHNICIAN Spont. 27 2021 STMA breaths/min 1:08 PM PROCESS MOLD TECHNICIAN Specimen Anatomical Collection Method Collection Time Receive d Time (Source) Location / / Volume Laterality Blood 2021 1:00 PM 1:08 PROCESS MOLD TECHNICIAN PM PROCESS MOLD TECHNICIAN Alexis Peraza P.A.-C. LAB BLOOD NON ADD-ON Performing Organization Address City/State/ZIP Code Phon e Number [facility] - [address] [place], [place] [address] [place] [address] [facility] [address] Calcium, Ionized (2021 1:00 PM PROCESS MOLD TECHNICIAN) athologist Signature Calcium, 5.00 4.65 - 5.30 2021 STMA Ionized, B mg/dL 1:11 PM PROCESS MOLD TECHNICIAN Specimen Anatomical Collection Method Collection Time Receive d Time (Source) Location / / Volume Laterality Blood (Blood, 2021 1:00 PM 04/24/20 1:08 Venous) PROCESS MOLD TECHNICIAN PM PROCESS MOLD TECHNICIAN Alexis Peraza P.A.-C. LAB BLOOD NON ADD-ON Performing Organization Address City/State/[facility] Phon e Number [facility] - [address] (ABNORMAL) Blood Gas with Coox, Arterial (2021 1:00 PM PROCESS MOLD TECHNICIAN) P athologist Signature pO2 72 (L) 83 - 108 2021 STMA mm Hg 1:11 PM PROCESS MOLD TECHNICIAN pCO2 40 32 - 45 mm 2021 STMA Hg 1:11 PM PROCESS MOLD TECHNICIAN pH 7.40 7.35 - 2021 STMA 7.45 pH 1:11 PM PROCESS MOLD TECHNICIAN Base Excess 1 -2 - 3 2021 STMA mmol/L 1:11 PM PROCESS MOLD TECHNICIAN HCO3 25 22 - 26 2021 STMA mmol/L 1:11 PM PROCESS MOLD TECHNICIAN Hemoglobin, B 12.6 11.6 - 2021 STMA 15.0 g/dL 1:11 PM PROCESS MOLD TECHNICIAN O2Hb 92.3 (L) 94.0 - 2021 STMA 98.0 % 1:11 PM PROCESS MOLD TECHNICIAN COHb 1.1 <3.0 % 2021 STMA 1:11 PM PROCESS MOLD TECHNICIAN MetHb 1.1 <1.5 % 2021 STMA 1:11 PM PROCESS MOLD TECHNICIAN CtO2 16.4 (L) 18.0 - 2021 STMA 21.0 vol % 1:11 PM PROCESS MOLD TECHNICIAN Arterial R-Radial 2021 STMA Sample Site 1:11 PM PROCESS MOLD TECHNICIAN Specimen Anatomical Collection Method Collection Time Receive d Time (Source) Location / / Volume Laterality Blood (Blood, 2021 1:00 PM 04/24/20 21 1:08 Arterial) PROCESS MOLD TECHNICIAN PM PROCESS MOLD TECHNICIAN Alexis Peraza P.A.-C. LAB BLOOD NON ADD-ON Performing Organization Address City/State/[facility] Phon e Number [facility] - [address] [place] [address] [facility] [place] [address] (ABNORMAL) Hepatic Function Panel (2021 12:57 PM PROCESS MOLD TECHNICIAN) Patholo gist Method Time Signature Bilirubin, Total, S 0.5 <=1.2 2021 DTL mg/dL 2:25 PM PROCESS MOLD TECHNICIAN Bilirubin, Direct, S <0.2 0.0 - 0.3 2021 DTL mg/dL 2:25 PM PROCESS MOLD TECHNICIAN Aspartate 18 8 - 43 2021 DTL Aminotransferase U/L 2:25 PM PROCESS MOLD TECHNICIAN (AST), S Alanine 21 7 - 45 2021 DTL Aminotransferase U/L 2:25 PM PROCESS MOLD TECHNICIAN (ALT), S Alkaline 123 (H) 35 - 104 2021 DTL Phosphatase, S U/L 2:25 PM PROCESS MOLD TECHNICIAN Albumin, S 4.2 3.5 - 5.0 2021 DTL g/dL 2:25 PM PROCESS MOLD TECHNICIAN Protein, Total, S 6.7 6.3 - 7.9 2021 DTL g/dL 2:25 PM PROCESS MOLD TECHNICIAN Specimen Anatomical Collection Method Collection Time Receive d Time (Source) Location / / Volume Laterality Blood (Blood, 2021 12:57 2021 2:05 Venous) PM PROCESS MOLD TECHNICIAN PM PROCESS MOLD TECHNICIAN Alexis Peraza P.A.-C. LAB BLOOD ADD-ON Performing Organization Address City/State/ZIP Code Phon e Number [facility] - [address] [place] [address] [facility] [place] [address] [facility] 200 [facility] Type and Screen (with reflex Antibody ID) (2021 12:57 PM PROCESS MOLD TECHNICIAN) [facility] Method Time Signature ABORh O Pos Not 2021 STRM applicable 1:33 PM PROCESS MOLD TECHNICIAN Antibody Negative Negative 2021 STRM Screen 1:43 PM PROCESS MOLD TECHNICIAN Type & Screen 04/27/2021 2021 STRM Expiration 23:59 1:33 PM PROCESS MOLD TECHNICIAN Testing Alberto DEFAULT 2021 STRM Location 1:07 PM PROCESS MOLD TECHNICIAN Specimen Anatomical Collection Method Collection Time Receive d Time (Source) Location / / Volume Laterality Blood (Blood, 2021 12:57 2021 1:07 Venous) PM PROCESS MOLD TECHNICIAN PM PROCESS MOLD TECHNICIAN Alexis Peraza P.A.-C. LAB BLOOD BANK TEST ORDER MARIA E Performing Organization Address [facility] Phon e Number [facility] - [address] [place], [place] [address] [facility] [place] [address] CBC without Differential (2021 12:57 PM PROCESS MOLD TECHNICIAN) athologist Signature Hemoglobin 12.8 11.6 - 2021 DTL 15.0 g/dL 2:11 PM PROCESS MOLD TECHNICIAN Hematocrit 41.2 35.5 - 2021 DTL 44.9 % 2:11 PM PROCESS MOLD TECHNICIAN Erythrocytes 4.54 3.92 - 2021 DTL 5.13 2:11 PM PROCESS MOLD TECHNICIAN x10(12)/L MCV 90.7 78.2 - 2021 DTL 97.9 fL 2:11 PM PROCESS MOLD TECHNICIAN RBC Distrib Width 14.2 12.2 - 2021 DTL 16.1 % 2:11 PM PROCESS MOLD TECHNICIAN Platelet Count 199 157 - 371 2021 DTL x10(9)/L 2:11 PM PROCESS MOLD TECHNICIAN Leukocytes 5.9 3.4 - 9.6 2021 DTL x10(9)/L 2:11 PM PROCESS MOLD TECHNICIAN Specimen Anatomical Collection Method Collection Time Receive d Time (Source) Location / / Volume Laterality Blood (Blood, 2021 12:57 2021 2:01 Venous) PM PROCESS MOLD TECHNICIAN PM PROCESS MOLD TECHNICIAN Alexis Peraza P.A.-C. LAB BLOOD ADD-ON Performing Organization Address City/[facility] Phon e Number [facility] - [address] [place], [place] [address] [facility] [place] [address] [facility] (ABNORMAL) Basic Metabolic Panel (2021 12:57 PM PROCESS MOLD TECHNICIAN) athologist Signature Potassium, S 4.1 3.6 - 5.2 2021 DTL mmol/L 2:25 PM PROCESS MOLD TECHNICIAN Sodium, S 148 (H) 135 - 145 2021 DTL mmol/L 2:25 PM PROCESS MOLD TECHNICIAN Chloride, S 112 (H) 98 - 107 2021 DTL mmol/L 2:25 PM PROCESS MOLD TECHNICIAN Bicarbonate, S 23 22 - 29 2021 DTL mmol/L 2:25 PM PROCESS MOLD TECHNICIAN Anion Gap 13 7 - 15 2021 DTL 2:25 PM PROCESS MOLD TECHNICIAN BUN (Blood Urea 35 (H) 6 - 21 2021 DTL Nitrogen), S mg/dL 2:25 PM PROCESS MOLD TECHNICIAN Creatinine 0.95 0.59 - 2021 DTL 1.04 mg/dL 2:25 PM PROCESS MOLD TECHNICIAN eGFR-Non 63 >=60 2021 DTL Black/ mL/min/BSA 2:25 PM PROCESS MOLD TECHNICIAN Jamaican Comment: ----ADDITIONAL INFORMATION---- Estimated GFR calculated using the 2009 CKD_EPI creatinine equation. eGFR-Black/ 72 >=60 mL/min/BSA 2020 2:25 PM PROCESS MOLD TECHNICIAN DTL Comment: ----ADDITIONAL INFORMATION---- Estimated GFR calculated using the 2009 CKD_EPI creatinine equation. Calcium, Total, S 9.2 8.8 - 10.2 mg/dL 2021 2:25 PM PROCESS MOLD TECHNICIAN DTL Glucose, S 145 (H) 70 - 140 mg/dL 2021 2:25 PM PROCESS MOLD TECHNICIAN D TL Specimen Anatomical Collection Method Collection Time Receive d Time (Source) Location / / Volume Laterality Blood (Blood, 2021 12:57 2021 2:05 Venous) PM PROCESS MOLD TECHNICIAN PM PROCESS MOLD TECHNICIAN Alexis Peraza P.A.-C. LAB BLOOD ADD-ON Performing Organization Address City/State/ZIP Code Phon e Number [facility] - [address] [place], [place] [address] [facility] [place] [address] [facility] [address] (ABNORMAL) Troponin T, Baseline, 5th gen (2021 12:57 PM PROCESS MOLD TECHNICIAN) P athologist Signature Troponin T, 11 (H) <=10 ng/L 2021 STMA Baseline, 5th 1:28 PM PROCESS MOLD TECHNICIAN gen Specimen Anatomical Collection Method Collection Time Receive d Time (Source) Location / / Volume Laterality Blood (Blood, 2021 12:57 2021 1:08 Venous) PM PROCESS MOLD TECHNICIAN PM PROCESS MOLD TECHNICIAN Alexis Peraza P.A.-C. LAB BLOOD TROPONIN Performing Organization Address [facility] Phon e Number [facility] - [address] [place], [place] [address] [address] (ABNORMAL) Lactate (2021 12:57 PM PROCESS MOLD TECHNICIAN) P athologist Signature Lactate, P 2.4 (H) 0.5 - 2.2 2021 STMA mmol/L 1:25 PM PROCESS MOLD TECHNICIAN Specimen Anatomical Collection Method Collection Time Receive d Time (Source) Location / / Volume Laterality Blood (Blood, 2021 12:57 2021 1:08 Venous) PM PROCESS MOLD TECHNICIAN PM PROCESS MOLD TECHNICIAN Alexis Peraza P.A.-C. LAB BLOOD NON ADD-ON Performing Organization Address [facility] Phon e Number [address] (ABNORMAL) Thromboelastograph, Kaolin, Blood (2021 12:55 PM PROCESS MOLD TECHNICIAN) Patholo gist Method Time Signature R, Kaolin, TEG 11.5 (H) 4.0 - 9.0 2021 STMA min 2:43 PM PROCESS MOLD TECHNICIAN K, Kaolin, TEG 2.0 (H) 0.9 - 1.7 2021 STMA min 2:43 PM PROCESS MOLD TECHNICIAN Angle, Kaolin, 62.7 (L) 66.2 - 80.3 2021 STMA TEG degrees 2:43 PM PROCESS MOLD TECHNICIAN MA, Kaolin, 74.1 55.2 - 77.0 2021 STMA TEG mm 2:43 PM PROCESS MOLD TECHNICIAN Ly30, Kaolin, 1.1 0.0 - 4.8 % 2021 STMA TEG 2:43 PM PROCESS MOLD TECHNICIAN Specimen Anatomical Collection Method Collection Time Receive d Time (Source) Location / / Volume Laterality Blood (Blood, 2021 12:55 2021 Venous) PM PROCESS MOLD TECHNICIAN 12:55 PM PROCESS MOLD TECHNICIAN Alexis Peraza P.A.-C. LAB BLOOD NON ADD-ON Performing Organization Address City/State/ZIP Code Phon e Number [facility] - [address], [place] [address] [place] [address] [facility] [address] (ABNORMAL) CBC with Differential, Blood (2021 12:41 PM PROCESS MOLD TECHNICIAN) athologist Signature Hemoglobin 12.7 11.6 - 2021 DTL 15.0 g/dL 3:23 PM PROCESS MOLD TECHNICIAN Hematocrit 40.6 35.5 - 2021 DTL 44.9 % 3:23 PM PROCESS MOLD TECHNICIAN Erythrocytes 4.45 3.92 - 2021 DTL 5.13 3:23 PM PROCESS MOLD TECHNICIAN x10(12)/L MCV 91.2 78.2 - 2021 DTL 97.9 fL 3:23 PM PROCESS MOLD TECHNICIAN RBC Distrib Width 14.2 12.2 - 2021 DTL 16.1 % 3:23 PM PROCESS MOLD TECHNICIAN Platelet Count 196 157 - 371 2021 DTL x10(9)/L 3:23 PM PROCESS MOLD TECHNICIAN Leukocytes 5.8 3.4 - 9.6 2021 DTL x10(9)/L 4:36 PM PROCESS MOLD TECHNICIAN Comment: Results confirmed by smear. Neutrophils 4.94 1.56 - 6.45 x10(9)/L 2021 4:36 P M PROCESS MOLD TECHNICIAN DTL Lymphocytes 0.39 (L) 0.95 - 3.07 x10(9)/L 2021 4:36 P M PROCESS MOLD TECHNICIAN DTL Monocytes 0.43 0.26 - 0.81 x10(9)/L 2021 4:36 PM PROCESS MOLD TECHNICIAN DTL Eosinophils <0.03 0.03 - 0.48 x10(9)/L 2021 4:36 P M PROCESS MOLD TECHNICIAN DTL Basophils <0.03 0.01 - 0.08 x10(9)/L 2021 4:36 PM PROCESS MOLD TECHNICIAN DTL Specimen Anatomical Collection Method Collection Time Receive d Time (Source) Location / / Volume Laterality Blood (Blood, 2021 12:41 2021 3:13 Venous) PM PROCESS MOLD TECHNICIAN PM PROCESS MOLD TECHNICIAN Jeanie Flores M.D. LAB BLOOD ADD-ON Performing Organization Address City/State/ZIP Code Phon e Number [facility] - [address] [place], [place] [address] [facility] [place] [address] [facility] [address] DX Chest Portable 1 View (2021 12:34 PM PROCESS MOLD TECHNICIAN) Anatomical Region Laterality Modality Chest, Thoracic RST LOS, Thoracic ARZ LOS, Thoracic N/A Digital Radiography FLA LOS Specimen (Source) Anatomical Collection Method Collection Time Re ceived Time Location / / Volume Laterality 2021 12:49 PM PROCESS MOLD TECHNICIAN Impressions 2021 12:52 PM PROCESS MOLD TECHNICIAN Since 04/23/2021, increased airspace opacities in the right upper lobe suspicious for pneumonitis. Other b ilateral airspace opacities/atelectasis are not significantly changed. Enteric t ube tip in the stomach with side port just above the GE junction; advancement recommended. Narrative 2021 12:52 PM PROCESS MOLD TECHNICIAN EXAM: ??DX CHEST PORTABLE 1 VIEW Procedure Note Willie Kennedy M.D. - 2021Formatt ing of this note might be different from the original. EXAM: DX CHEST PORTABLE 1 VIEW IMPRESSION: Since 04/23/2021, increased airspace opa cities in the right upper lobe suspicious for pneumonitis. Other b ilateral airspace opacities/atelectasis are not significantly changed. Enteric t ube tip in the stomach with side port just above the GE junction; advancement recommended. Alexis Peraza P.A.-C. IMG DIAGNOSTIC IMAGING NE OCEDURES DX Abdomen Portable Anterior Posterior 1 View (2021 12:33 PM PROCESS MOLD TECHNICIAN) Anatomical Region Laterality Modality Abdomen, Abdominal RST LOS, Abdominal ARZ LOS, N/A Digital Radiography Abdominal FLA LOS Specimen (Source) Anatomical Collection Method Collection Time Re ceived Time Location / / Volume Laterality 2021 12:53 PM PROCESS MOLD TECHNICIAN Impressions 2021 12:55 PM PROCESS MOLD TECHNICIAN Gastric tube tip in the stomach with side port just above the GE junction; advancement recommended. Gas-f illed, dilated loops of small bowel predominantly in the central abdomen anne suring up to 5.4 cm, compatible with small bowel obstruction though the bowel gas pattern has improved compared to CT biofuels production technician image on 04/23/2021. Excreted IV c ontrast from CT yesterday in the bladder. Narrative 2021 12:55 PM PROCESS MOLD TECHNICIAN EXAM: ??DX ABDOMEN PORTABLE ANTERIOR POSTERIOR 1 VIEW Procedure Note Willie Kennedy M.D. - 2021Formatt ing of this note might be different from the original. EXAM: DX ABDOMEN PORTABLE ANTERIOR POSTE RIOR 1 VIEW IMPRESSION: Gastric tube tip in the stomach with rebekah e port just above the GE junction; advancement recommended. Gas-f illed, dilated loops of small bowel predominantly in the central abdomen anne suring up to 5.4 cm, compatible with small bowel obstruction though the bowel gas pattern has improved compared to CT biofuels production technician image on 04/23/2021. Excreted IV c ontrast from CT yesterday in the bladder. Alexis Peraza P.A.-C. IMG DIAGNOSTIC IMAGING NE OCEDURES Interpretation of Outside CT Abdomen and or Pelvis (2021 12:25 PM PROCESS MOLD TECHNICIAN) Anatomical Region Laterality Modality Abdomen, Pelvis, Abdominal RST LOS, Abdominal ARZ LOS, N/A Computed Tomography Abdominal FLA LOS, Other Specimen (Source) Anatomical Collection Method Collection Time Re ceived Time Location / / Volume Laterality 2021 12:46 PM PROCESS MOLD TECHNICIAN Impressions 2021 12:55 PM PROCESS MOLD TECHNICIAN 1. Findings consistent with a mid small bowel obstruction, which may be related to partial volvulus and/or adhesion. Eola el all appears viable, with no evidence of necrosis or perforation. 2. Mildly delayed left nephrogram, of un clear etiology 3. Opacities in both lung bases likely a cute infection/inflammation, possibly due to aspiration. Narrative 2021 12:55 PM PROCESS MOLD TECHNICIAN EXAM: ??INTERPRETATION OF OUTSIDE CT ABDOMEN AND OR PELVIS. Outside CT of the abdomen and pelvis with IV contrast date d 04/23/2021. COMPARISON: ??PET CT 06/13/2018. FINDINGS: ??The jejunum is positioned in the right side of the abdomen and its mesentery is partially twisted. There is marked dilation of the jejunum, and upstream duodenum and stomach as well as the esophagus. This transitions to decompressed ileum. Colon is decompresse d. Appendix is normal. Bowel all appears viable, with no evidence of bowel ischem ia or necrosis and no findings to suggest perforation. Ill-defined region of slightly decreased attenuation in hepatic segment 4 anteriorly at the dome. Probable small c yst in segment 5. Diffuse pancreatic parenchymal atrophy and fatty infiltrati on. The left nephrogram is delayed relative to the right, but the etiology is not clear-left renal artery and vein are patent and there is no hydronephrosi s. Degenerative change in the spine. Consolidative airspace opacities in both lung bases as well as micronodular areas of groundglass opacities. This examination was performed in conjun ction with a CT of the chest, which will be re-reported separately if requested. Procedure Note Rod Fletcher M.D. - 2021Form atting of this note might be different from the original. EXAM: INTERPRETATION OF OUTSIDE CT ABDOM EN AND OR PELVIS. Outside CT of the abdomen and pelvis with IV contrast date d 04/23/2021. COMPARISON: PET CT 06/13/2018. FINDINGS: The jejunum is positioned in t he right side of the abdomen and its mesentery is partially twisted. There is marked dilation of the jejunum, and upstream duodenum and stomach as well as the esophagus. This transitions to decompressed ileum. Colon is decompresse d. Appendix is normal. Bowel all appears viable, with no evidence of bowel ischem ia or necrosis and no findings to suggest perforation. Ill-defined region of slightly decreased attenuation in hepatic segment 4 anteriorly at the dome. Probable small c yst in segment 5. Diffuse pancreatic parenchymal atrophy and fatty infiltrati on. The left nephrogram is delayed relative to the right, but the etiology is not clear-left renal artery and vein are patent and there is no hydronephrosi s. Degenerative change in the spine. Consolidative airspace opacities in both lung bases as well as micronodular areas of groundglass opacities. This examination was performed in conjun ction with a CT of the chest, which will be re-reported separately if requested. IMPRESSION: 1. Findings consistent with a mid small bowel obstruction, which may be related to partial volvulus and/or adhesion. Eola el all appears viable, with no evidence of necrosis or perforation. 2. Mildly delayed left nephrogram, of un clear etiology 3. Opacities in both lung bases likely a cute infection/inflammation, possibly due to aspiration. Alexis Peraza P.A.-C. IMG CT PROCEDURES ECG 12 Lead (2021 12:15 PM PROCESS MOLD TECHNICIAN) P athologist Signature Ventricular Rate 117 BPM MUSE ECG/Min NE Interval 142 ms MUSE QRSD Interval 86 ms MUSE QT Interval 318 ms MUSE QTC Interval 443 ms MUSE P Marcus 48 degrees MUSE R Marcus -4 degrees MUSE T Wave Marcus 38 degrees MUSE Specimen Anatomical Collection Method Collection Time Receive d Time (Source) Location / / Volume Laterality 2021 12:15 2021 PM PROCESS MOLD TECHNICIAN 12:17 PM PROCESS MOLD TECHNICIAN Impressions MUSE - 2021 12:17 PM PROCESS MOLD TECHNICIAN Sinus tachycardia Premature ventricular complexes Cannot rule out Inferior infarct When compared with ECG of 27-MAY-2018 12 :37, Premature ventricular complexes are now present Minimal criteria for Inferior infarct ar e now present Reviewed by PHILIPPE Celeste Narrative This result has an attachment that is no t available. Procedure Note Deshawn Parrish M.D., Ph.D. - 1 IMPRESSION: Sinus tachycardia Premature ventricular complexes Cannot rule out Inferior infarct When compared with ECG of 27-MAY-2018 12 :37, Premature ventricular complexes are now present Minimal criteria for Inferior infarct ar e now present Reviewed by PHILIPPE Celeste Alexis Peraza P.A.-C. 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) Morbid Obesity Body Mass Index >= 35 wit h Comorbid Condition (HCC) documented in this encounter Admitting Diagnoses Diagnosis Obstruction Intestinal (HCC) documented in this encounter Administered Medications Inactive Administered Medications - up to 3 most recent administrations Medication Order MAR Action Action Date Dose Rate Site acetaminophen tablet 1,000 mg Given 2021 8:00 PM PROCESS MOLD TECHNICIAN 1,000 mg (TYLENOL) 1,000 mg, oral, Every 6 hours, First dose on Sat04/24/21 at 1300 ARIPiprazole tablet 10 mg (ABILIFY) Given 04/26/2021 8:48 AM PROCESS MOLD TECHNICIAN 10 mg 10 mg, gastric tube, Every morning, First dose (after last modification) on Sat04/25/21 at 0900 ARIPiprazole tablet 10 mg (ABILIFY) Given 04/27/2021 9:36 AM PROCESS MOLD TECHNICIAN 10 mg 10 mg, oral, Every morning, First dose (after last modification) on Sat04/27/21 at 0900 ARIPiprazole tablet 20 mg (ABILIFY) Given 04/28/2021 9:06 AM PROCESS MOLD TECHNICIAN 20 mg 20 mg, oral, Every morning, First dose (after last modification) on Sat04/28/21 at 0900 bisacodyL suppository 10 mg (DULCOLAX) Given 2021 8:50 PM PROCESS MOLD TECHNICIAN 10 mg 10 mg, rectal, 2 times daily PRN, constipation, Starting on Sat04/24/21 at 1235 cefTRIAXone in dextrose (iso-osm) IVPB New Bag 2021 1:08 PM PROCESS MOLD TECHNICIAN 2 g 200 mL/hr 2 g (ROCEPHIN) 2 g, intravenous, at 200 mL/hr, Administer over 15 Minutes, Every 24 hours, First dose on Sat04/24/21 at 1300, For 8 doses, Drug Monitoring Program: Pharmacist to adjust medication dosing based on indication and drug clearance factors., Indications: Respiratory tract infection, community acquired citalopram tablet 20 mg (CeleXA) Given 04/26/2021 8:49 AM PROCESS MOLD TECHNICIAN 20 mg 20 mg, gastric tube, Daily, First dose (after last modification) on Sat04/25/21 at 0900 citalopram tablet 20 mg (CeleXA) Given 04/28/2021 9:06 AM PROCESS MOLD TECHNICIAN 20 mg 20 mg, oral, Daily, First dose (after last modification) on Sat04/27/21 at 0900 Given 04/27/2021 9:35 AM PROCESS MOLD TECHNICIAN 20 mg cloZAPine tablet 350 mg (CLOZARIL) Given 04/26/2021 9:19 PM PROCESS MOLD TECHNICIAN 350 mg 350 mg, oral, Daily at bedtime, First dose on Sat04/26/21 at 2100, Is this a continuation and/or restart of therapy? Yes, Is the patient eligible via the ? eligibility check? on the [employer]S website? Pharmacist to perform eligibility check via clozapine REMS website D5W and NaCl 0.45 % Rate/Dose Verify 04/26/2021 3:43 AM PROCESS MOLD TECHNICIAN 75 mL/hr 75 mL/hr infusion 75 mL/hr, intravenous, Continuous, Starting on Sat04/25/21 at 1200 New Bag 04/26/2021 12:29 AM PROCESS MOLD TECHNICIAN 75 mL/hr 75 mL/hr Rate/Dose Verify 04/25/2021 10:00 PM PROCESS MOLD TECHNICIAN 75 mL/hr 75 mL/hr D5W and NaCl 0.9% Rate/Dose Verify 04/25/2021 10:00 AM PROCESS MOLD TECHNICIAN 75 mL/hr 75 mL/hr infusion 75 mL/hr, intravenous, Continuous, Starting on Sat04/25/21 at 0930 New Bag 04/25/2021 9:50 AM PROCESS MOLD TECHNICIAN 75 mL/hr 75 mL/hr D5W infusion 10-250 mL/hr, intravenous, As needed, Medications Inco mpatible with 0.9% NaCL, Starting on Sat04/25/21 at 1637, Infuse at the same rate as the piggyback until tubing clears or up to a volume of 20 mL pre and post infusion for medications incompatible with 0.9% NaCL. Use 100 mL bag then disca rd. diatrizoate meglumine-diatrizoate sodium Given 2021 2:37 P M PROCESS MOLD TECHNICIAN 100 mL 66-10 % solution 100 mL (GASTROGRAFIN) 100 mL, gastric tube, Once, On Sat04/24/21 at 1400, For 1 dose, Administer two hours after NG tube insertion when stomach contents have been evacuated. Dilute in 50 mL tap water (OK to use sterile water). Clamp NG tube for 2 hours after administration of Diatrizoate Methylglucamine and then to low intermittent suction. dilTIAZem tablet 30 mg (CARDIZEM) Given 04/25/2021 6:36 AM PROCESS MOLD TECHNICIAN 30 mg 30 mg, oral, Every 6 hours scheduled, First dose on Sat04/24/21 at 1800 Given 04/25/2021 2:30 AM PROCESS MOLD TECHNICIAN 30 mg Given 2021 5:14 PM PROCESS MOLD TECHNICIAN 30 mg dilTIAZem tablet 30 mg (CARDIZEM) Given 04/26/2021 1:42 PM PROCESS MOLD TECHNICIAN 30 mg 30 mg, gastric tube, Every 6 hours scheduled, First dose (after last modification) on Sat04/25/21 at 1200 Given 04/26/2021 6:42 AM PROCESS MOLD TECHNICIAN 30 mg Given 04/25/2021 11:18 PM PROCESS MOLD TECHNICIAN 30 mg dilTIAZem tablet 30 mg (CARDIZEM) Given 04/28/2021 12:01 PM PROCESS MOLD TECHNICIAN 30 mg 30 mg, oral, Every 6 hours scheduled, First dose (after last modification) on Sat04/26/21 at 1800 Given 04/28/2021 6:14 AM PROCESS MOLD TECHNICIAN 30 mg Given 04/28/2021 12:40 AM PROCESS MOLD TECHNICIAN 30 mg enoxaparin injection 40 mg Given 04/28/2021 9:07 AM PROCESS MOLD TECHNICIAN 40 mg Left Upper Arm (LOVENOX) (Back) 40 mg, subcutaneous, Daily, First dose on Sat04/25/21 at 1500 Given 04/25/2021 2:10 PM PROCESS MOLD TECHNICIAN 40 mg Left Lower Abdomen fluticasone furoate-vilanteroL 100-25 Given 04/28/2021 9:[address] 1 puff mcg/actuation inhaler 1 puff (BREO ELLIPTA DISKUS) 1 puff, inhalation, Daily (RT), First dose on Sat04/25/21 at 0800, fluticasone/vilanterol diskus 100/25 mcg was interchanged for fluticasone/salmeterol MDI 100/50 mcg Given 04/27/2021 9:34 AM PROCESS MOLD TECHNICIAN 1 puff Given 04/26/2021 7:47 AM PROCESS MOLD TECHNICIAN 1 puff heparin (porcine) Given 04/25/2021 6:35 AM PROCESS MOLD TECHNICIAN 5,000 Units Right Lower injection 5,000 Units Abdomen 5,000 Units, subcutaneous, Every 8 hours scheduled, First dose on Sat04/24/21 at 2000 Given 2021 8:09 PM PROCESS MOLD TECHNICIAN 5,000 Units Left Lower Abdomen HYDROmorphone (PF) injection 0.2 mg (DIL AUDID) 0.2 mg, intravenous, Every 2 hour PRN, s evere pain or score 7-10 of 10, Starting on Sat04/25/21 at 0140 lactated Ringer's bolus 1,000 mL New Bag 2021 6:05 PM PROCESS MOLD TECHNICIAN 1,000 mL 2000 mL/hr 1,000 mL, intravenous, at 2,000 mL/hr, Administer over 30 Minutes, Once, On Sat04/24/21 at 1800, For 1 dose lactated ringers Rate/Dose Verify 04/25/2021 12:00 AM 100 mL/hr 100 mL/hr 100 mL/hr, intravenous, PROCESS MOLD TECHNICIAN Continuous, Starting on Sat04/24/21 at 1200 Rate/Dose Verify 2021 11:00 PM PROCESS MOLD TECHNICIAN 100 mL/hr 100 mL/hr Rate/Dose Verify 2021 10:00 PM PROCESS MOLD TECHNICIAN 100 mL/hr 100 mL/hr lactated ringers Rate/Dose Verify 04/25/2021 8:00 AM PROCESS MOLD TECHNICIAN 200 mL/hr 200 mL/hr 200 mL/hr, intravenous, Continuous, Starting on Sat04/25/21 at 0130 Rate/Dose Verify 04/25/2021 7:00 AM PROCESS MOLD TECHNICIAN 200 mL/hr 200 mL/hr New Bag 04/25/2021 6:02 AM PROCESS MOLD TECHNICIAN 200 mL/hr 200 mL/hr lansoprazole suspension 30 mg (PREVACID) Given 04/26/2021 6:42 AM PROCESS MOLD TECHNICIAN 30 mg 30 mg, gastric tube, Daily before breakfast, First dose (after last modification) on Sat04/25/21 at 0700 Given 04/25/2021 6:36 AM PROCESS MOLD TECHNICIAN 30 mg lidocaine 5 % 1 patch (LIDODERM) 1 patch, transdermal, Administer over 12 Hours, Daily, First dose on Sat04/25/21 at 0900, May apply up to 3 patches per day. magnesium sulfate in D5W IVPB 1 g New Bag 2021 6:06 PM PROCESS MOLD TECHNICIAN 1 g 100 mL/hr 1 g, intravenous, at 100 mL/hr, Administer over 60 Minutes, Once, On Sat04/24/21 at 1700, For 1 dose, Over 1 hours. melatonin tablet 3 mg Given 2021 8:09 PM PROCESS MOLD TECHNICIAN 3 mg 3 mg, oral, Daily at bedtime, First dose on Sat04/24/21 at 2100 mirabegron 24 hr tablet 50 mg (MYRBETRIQ ) Given 2021 8:34 PM PROCESS MOLD TECHNICIAN 50 mg 50 mg, oral, Daily at bedtime, First dose on Sat04/24/21 at 2100, Swallow whole. Do NOT crush, chew, or split tablet. montelukast tablet 10 mg (SINGULAIR) Given 2021 8:08 PM PROCESS MOLD TECHNICIAN 10 mg 10 mg, oral, Daily at bedtime, First dose on Sat04/24/21 at 2100 NaCl 0.9% infusion 10-250 mL/hr, intravenous, As needed, Be tween Consecutive Piggyback Medications, Starting on Sat04/25/21 at 1637, Infuse at the same rate as the piggyback until tubing clears or up to a volume of 20 mL . Select for IV medication administration when no maintenance IV available or when IV medication s are not compatible with maintenance fluid. NaCl 0.9% infusion 10-250 mL/hr, intravenous, As needed, Post Medications (Hazardous/Low Fluid Volume), Starting on Sat04/25/21 at 1637, Infuse at t he same rate as the medication until tubing cleared of medication, then di scard. naloxone injection 0.2 mg (NARCAN) 0.2 mg, intravenous, As needed, respirat ory depression, Starting on Sat04/24/21 at 1204, For RASS Score -4 or less, respiratory rate of l ess than 8 breaths/min. Notify provider/service and rapid response team (if av ailable at institution). oxyCODONE IR tablet 2.5 mg (ROXICODONE) 2.5 mg, oral, Every 4 hours PRN, moderat e pain or score 4-6 of 10, Starting on Sat04/24/21 at 1226 oxyCODONE IR tablet 5 mg (ROXICODONE) 5 mg, oral, Every 4 hours PRN, severe pain or score 7- 10 of 10, Starting on Sat04/24/[address] tablet 40 mg (PROTONIX) Given 04/28/2021 6:14 AM PROCESS MOLD TECHNICIAN 40 mg 40 mg, oral, Daily before breakfast, First dose on Sat04/27/21 at 0700, Swallow whole. Do NOT crush, chew, or split tablet. Given 04/27/2021 6:01 AM PROCESS MOLD TECHNICIAN 40 mg phenoL 1.4 % spray 1 spray (CHLORASEPTIC ) Given 04/25/2021 11:18 PM PROCESS MOLD TECHNICIAN 1 spray 1 spray, mouth/throat, As needed, sore throat, Starting on Sat04/25/21 at 1803 sennosides-docusate sodium 8.6-50 mg per Given 2021 8:09 P M PROCESS MOLD TECHNICIAN 1 tablet tablet 1 tablet (SENOKOT-S) 1 tablet, oral, 2 times daily, First dose on Sat04/24/21 at 2100 sodium chloride 0.9 % injection 10 mL 10 mL, intravenous, As needed, line care, Starting on Sat04/24/21 at 1153, Peripheral Intravenous Catheter and Rapid Infusion Cat heter, prior to blood sampling, post blood transfusion or post blood samplin g sodium chloride 0.9 % injection 10 mL 10 mL, intravenous, As needed, line care , Peripheral Intravenous Catheter and Rapid Infusion Catheter, Starting on 04/25 at 1637, Prior to blood sampling, post blood transfusion or post blood sampling. sodium chloride 0.9 % injection 3 mL 3 mL, intravenous, As needed, line care, Starting on Sat04/24/21 at 1153, Prior to and following infusion and between multi ple consecutive infusions: sodium chloride 0.9 % injection sodium chloride 0.9 % injection 3 mL Given 04/28/2021 9:09 AM PROCESS MOLD TECHNICIAN 3 mL 3 mL, intravenous, Every 12 hours scheduled, First dose on Sat04/24/21 at 2100, Peripheral Intravenous Catheter and Rapid Infusion Catheter, when no infusion to maintain patency Given 04/25/2021 8:10 AM PROCESS MOLD TECHNICIAN 3 mL Given 2021 8:35 PM PROCESS MOLD TECHNICIAN 3 mL sodium chloride 0.9 % injection 3 mL 3 mL, intravenous, As needed, line care, Peripheral Intravenous Catheter and Rapid Infusion Catheter, Starting on Sat04/25/21 at 1637, P rior to and following infusion and between multiple consecutive infusions. sodium chloride 0.9 % injection 3 mL Given 04/27/2021 8:42 PM PROCESS MOLD TECHNICIAN 3 mL 3 mL, intravenous, Every 12 hours scheduled, First dose on Sat04/25/21 at 2100, Peripheral Intravenous Catheter and Rapid Infusion Catheter: When no infusion to maintain patency. Given 04/27/2021 9:54 AM PROCESS MOLD TECHNICIAN 3 mL Given 04/26/2021 9:25 PM PROCESS MOLD TECHNICIAN 3 mL documented in this encounter Active and Recently Administered Medications Times are shown in PROCESS MOLD TECHNICIAN. Scheduled Medication Order 04/26/2021 04/27/2021 04/28/2021 ARIPiprazole tablet 10 mg (ABILIFClaudia) (CANCELED) 3397 (G iven - Provider: Gem Ribeiro R.N., C.M.S.R.NElvi) 10 mg, gastric tube, Every morning, Firs t dose (after last modification) on Sat04/25/21 at 0900 ARIPiprazole tablet 10 mg (ABILIFY) (CANCELED) 0936 (Given - Provider: Gem Ribeiro R.N., KorinaRElviNElvi) 10 mg, oral, Every morning, First dose ( after last modification) on Sat04/27/21 at 0900 ARIPiprazole tablet 20 mg (ABILIFY) 0906 (Given - Provider: Chantell Rivera R.N.) 20 mg, oral, Every morning, First dose ( after last modification) on Sat04/28/21 at 0900 citalopram tablet 20 mg (CeleXA) (CANCELED) 0849 (Give n - Provider: Gem Ribeiro R.N., Saima.R.NElvi) 20 mg, gastric tube, Daily, First dose ( after last modification) on Sat04/25/21 at 0900 citalopram tablet 20 mg (CeleXA) 0935 (G iven - Provider: Gem Ribeiro R.N., KushS.R.NElvi) 0906 (Given - Provider: Chantlel kennedy RElviNElvi) 20 mg, oral, Daily, First dose (after la st modification) on Sat04/27/21 at 0900 cloZAPine tablet 350 mg (CLOZARIL) (CANCELED) 2118 (Gi mani - Provider: Veronica Cohn RYahir) 350 mg, oral, Daily at bedtime, First do se on Sat04/26/21 at 2100, Is this a continuation and/or restart of therapy? Yes, Is the patient eligible via the ? eligibility check? on the [employer] website? Kamala sarkar to perform eligibility check via clozapine [employer] website dilTIAZem tablet 30 mg (CARDIZEM) (CANCELED) 0642 (Giv en - Provider: Amy Auguste R.N.)1342 (Given - Provider: Gem Ribeiro R.N., KushS.R.NElvi) 30 mg, gastric tube, Every 6 hours sched uled, First dose (after last modification) on Sat04/25/21 at 1200 dilTIAZem tablet 30 mg (CARDIZEM) 1822 (Given - Provid er: Veronica Cohn R.N.) 0020 (Given - Provider: Miroslava Ewing R.N.)0601 (Given - Provider: Miroslava Ewing R.N.)1158 (Given - Provider: Gem Ribeiro R.N., C.M.S.R.NElvi)1824 (Given - Provider: Veronica Cohn R.N.) 0040 (Given - Provider: Kirstin Mueller R.N.)0614 (Given - Provider: Kirstin Mueller R.N.)1201 (Given - Provider: Chantell Rivera R.N.) 30 mg, oral, Every 6 hours scheduled, Fi rst dose (after last modification) on Sat04/26/21 at 1800 enoxaparin injection 40 mg (LOVENOX) 0907 (Not Given - Provider: Gem Ribeiro R.N., C.M.S.R.N. - Reason: Contraindicated - Comment: to hold per sx due to loose bloody stool) 0936 (Not Given - Provider: Gem pittman R.N., C.M.S.R.N. - Reason: Contraindicated - Comment: held per sx due to bloody stools) 0907 (Given - Provider: Chantell kennedy R.NElvi) 40 mg, subcutaneous, Daily, First dose on Sat04/25/21 at 1500 fluticasone furoate-vilanteroL 100-25 mc g/actuation inhaler 1 puff (BREO ELLIPTA DISKUS) 0747 (Given - Provider: Gem Riebiro R.N., C.M.S .R.N.) 0934 (Given - Provider: Gem Ribeiro R.N., C.M.S.R.N. - Comment: in BR) 0905 (Given - Provider: Chantell M Raddatz, R.N.) 1 puff, inhalation, Daily (RT), First do se on Sat04/25/21 at 0800, fluticasone/vilanterol diskus 100/25 mcg was interchanged for fluticasone/salmeterol MDI 100/50 mcg lansoprazole suspension 30 mg (PREVACID) (CANCELED) 06 42 (Given - Provider: Amy Auguste RElviNElvi) 30 mg, gastric tube, Daily before breakf ast, First dose (after last modification) on Sat04/25/21 at 0700 lidocaine 5 % 1 patch (LIDODERM) 0853 (Not Given - Pro vider: Gem Ribeiro R.N., C.M.S.R.N. - Reason: Patient/family refused) 0952 (Not Given - Provider: Gem Ribeiro R.N., C.M.S.R.N. - Reason: Patient/family refused) 0907 (Not Given - Provider: Chantell Rivera RYahir - Reason: Patient/family refused) 1 patch, transdermal, Administer over 12 Hours, Daily, First dose on Sat04/25/21 at 0900, May apply up to 3 patches per day. pantoprazole DR tablet 40 mg (PROTONIX) 0601 (Given - Provider: Miroslava Ewing RElviNElvi) 0614 (Given - Provider: Kirstin Chery RElviNElvi) 40 mg, oral, Daily before breakfast, Fir st dose on Sat04/27/21 at 0700, Swallow whole. Do NOT crush, chew, or split tablet. sodium chloride 0.9 % injection 3 mL 0855 (Not Given - Provider: Gem Ribeiro R.N., C.M.S.R.N. - Reason: Order parameters not met)2125 (Not Given - Provider: Veronica Cohn R.N. - Reason: Order parameters not met) 0954 (Not Given - Provider: Gem Ribeiro R.N., C.M.S.R.N. - Reason: Order parameters not met)2042 (Not Given - Provider: Veronica Cohn R.N. - Reason: Order parameters not met) 0909 (Given - Provider: Chantell kennedy RElviNElvi) 3 mL, intravenous, Every 12 hours schedu led, First dose on Sat04/24/21 at 2100, Peripheral Intravenous Catheter and Rapid Infusion Catheter, when no infusion to maintain patency sodium chloride 0.9 % injection 3 mL 0853 (Given - Pro vider: Gem Ribeiro R.N., C.M.S.R.N.)212 (Given - Provider: Veronica Cohn R.N.) 0954 (Given - Provider: Gem Ribeiro R.N., C.M.S.R.N.)204 (Given - Provider: Veronica Cohn R.N.) 0909 (Not Given - Provider: Chantell marino RYahir - Reason: Other) 3 mL, intravenous, Every 12 hours schedu led, First dose on Sat04/25/21 at 2100, Peripheral Intravenous Catheter and Rapid Infusion Catheter: When no infusion to maintain patency. Continuous Medication Order 04/26/2021 04/27/2021 04/28/2021 D5W and NaCl 0.45 % infusion (CANCELED) 0029 (New Bag - Provider: Amy Auguste R.N.)0343 (Rate/Dose Verify - Provider: Amy Auguste R.N.)1104 (Stopped - Provider: Gem Ribeiro R.N., C.M.S.R.N.) 75 mL/hr, intravenous, Continuous, Starting on Sat04/25/21 at 1 200 PRN Medication Order 04/26/2021 04/27/2021 04/28/2021 albuterol nebulizer solution 2.5 mg 2.5 mg, nebulization, Every 4 hours PRN, wheezing, shortness of breath, Starting on Sat04/24/21 at 1228, Albuterol nebs were interchanged for albuterol/levalbuterol MDI (same frequency) bisacodyL suppository 10 mg (DULCOLAX) 10 mg, rectal, 2 times daily PRN, consti pation, Starting on Sat04/24/21 at 1235 D5W infusion 10-250 mL/hr, intravenous, As needed, Me dications Incompatible with 0.9% NaCL, Starting on Sat04/25/21 at 1637, Infuse at the same rate as the piggyback until tubing clears or up to a volume of 20 mL p re and post infusion for medications inc ompatible with 0.9% NaCL. Use 100 mL bag then discard. HYDROmorphone (PF) injection 0.2 mg (DILAUDID) 0.2 mg, intravenous, Every 2 hour PRN, s evere pain or score 7-10 of 10, Starting on Sat04/25/21 at 0140 ipratropium-albuteroL 0.5-2.5 mg/3 mL nebulizer solution 3 mL (D UONEB) 3 mL, nebulization, 4 times daily PRN, w heezing, shortness of breath, Starting on Sat04/24/21 at 1231 NaCl 0.9% infusion 10-250 mL/hr, intravenous, As needed, Be tween Consecutive Piggyback Medications, Starting on Sat04/25/21 at 1637, Infuse at the same rate as the piggyback until tubing clears or up to a volume of 20 mL . Select for IV medication administratio n when no maintenance IV available or when IV medications are not compatible with maintenance fluid. NaCl 0.9% infusion 10-250 mL/hr, intravenous, As needed, Po st Medications (Hazardous/Low Fluid Volume), Starting on Sat04/25/21 at 1637, Infuse at the same rate as the medication until tubing cleared of medication, then discard. naloxone injection 0.2 mg (NARCAN) 0.2 mg, intravenous, As needed, respirat ory depression, Starting on Sat04/24/21 at 1204, For RASS Score -4 or less, respiratory rate of less than 8 breaths/min. Notify provider/service and rapid response team (if available at institution). oxyCODONE IR tablet 2.5 mg (ROXICODONE) 2.5 mg, oral, Every 4 hours PRN, moderat e pain or score 4-6 of 10, Starting on Sat04/24/21 at 1226 oxyCODONE IR tablet 5 mg (ROXICODONE) 5 mg, oral, Every 4 hours PRN, severe pa in or score 7-10 of 10, Starting on Sat04/24/21 at 1226 phenoL 1.4 % spray 1 spray (CHLORASEPTIC) 1 spray, mouth/throat, As needed, sore throat, Startin g on Sat04/25/21 at 1803 sodium chloride 0.9 % injection 10 mL 10 mL, intravenous, As needed, line care , Starting on Sat04/24/21 at 1153, Peripheral Intravenous Catheter and Rapid Infusion Catheter, prior to blood sampling, post blood transfusion or post blood sampling sodium chloride 0.9 % injection 10 mL 10 mL, intravenous, As needed, line care , Peripheral Intravenous Catheter and Rapid Infusion Catheter, Starting on Sat04/25/21 at 1637, Prior to blood sampling, post blood transfusion or post blood sampling. sodium chloride 0.9 % injection 3 mL 3 mL, intravenous, As needed, line care, Starting on Sat04/24/21 at 1153, Prior to and following infusion and between multiple consecutive infusions: sodium chloride 0.9 % injection sodium chloride 0.9 % injection 3 mL 3 mL, intravenous, As needed, line care, Peripheral Intravenous Catheter and Rapid Infusion Catheter, Starting on Sat04/25/21 at 1637, Prior to and following infusion and between multiple consecutive infusions. documented in this encounter Additional Health Concerns Infection Onset Date Last Indicated Resolved Time COVID19 Pending 2021 2021 2021 2:49 PM PROCESS MOLD TECHNICIAN COVID19 Pending 04/27/2021 04/28/2021 04/28/2021 1:19 AM PROCESS MOLD TECHNICIAN documented as of this encounter
--- OUTSIDE RECORDS SUMMARY | 2022-03-01 10:15 | XMS_ITS | Encounter Summary ---
:1955 Author Organization [facility] Address [address] [place] [address] Care Team Providers Name Role Phone Unavailable Primary Care Provider Unavailable Reason for Referral Outpatient (Routine) - Closed Specialty Diagnoses / Procedures Referred By Contact Refer red To Contact Diagnoses Bleeding Rectal Narciso Gama, Cand[facility] Procedures Colonoscopy Referral ID Status Reason Start Date Expiration Date Visits Requ ested Visits Authorized [id number] Closed 04/27/2021 04/27/2022 1 1 [employer] Encounter Details Date Type Department Care Team Description 04/27/2021 Orders Only Division of Trauma Narciso Gama Bleedi ng Rectal Critical Care and M.B.B.S. (Primary D x) General Surgery in [place], [place] [address] [place] [id number] Social History Tobacco Use Types Packs/Day Years Used Date Smoking Tobacco: Former Cigarettes 05 23 Quit : 2004 Smokeless Tobacco: Never Alcohol Use Standard Drinks/Week Comments No 0 (1 standard drink = 0.6 oz pure alcoho l) Sex Assigned at Date Recorded Not on file documented as of this encounter Plan of Treatment Not on filedocumented as of this encounter Visit Diagnoses Diagnosis Bleeding Rectal - Primary documented in this encounter
--- OUTSIDE RECORDS SUMMARY | 2022-03-01 10:15 | XMS_ITS | Encounter Summary ---
:1955 Author Organization [facility] Address [address] [place] [address] Care Team Providers Name Role Phone Unavailable Primary Care Provider Unavailable Reason for Visit Reason Comments Colonoscopy questions Encounter Details Date Type Department Care Team Description 05/01/2021 Clinical Communication Division of Trauma Mohsen Mayer Colonoscopy Critical Care and P, M.D. questions General Surgery in [address] [facility], [facility] [phone] [place] [address] [place], [place] (Work) [phone] Social History Tobacco Use Types Packs/Day Years Used Date Smoking Tobacco: Former Cigarettes 05 23 Quit : 2004 Smokeless Tobacco: Never Alcohol Use Standard Drinks/Week Comments No 0 (1 standard drink = 0.6 oz pure alcoho l) Sex Assigned at Date Recorded Not on file documented as of this encounter Miscellaneous Notes Telephone Encounter - Adriana Yarbrough P.A.-C. - 05/01/2021 2:57 PM CST I have contacted the patient's sister and have directed our schedulers to reschedule the procedure for 05/05/2021 as directed by the patient's caregiver. The patient has already had her prep sent to come pharmacy and the patient's caregiver will pick it up as directed. She will access the patient portal to find out additional information about procedure. D AGRONOMIST Telephone Encounter - Flor Herman - 05/01/2021 2:50 PM CST Naomi, patient's sister, called regarding the colonoscopy that was supposed to be done tomorrow. Shehas questions if she will be having it and how to prep. She also had some information about some of her medications that were changed. Please call her back at [phone]. Thanks- D AGRONOMIST documented in this encounter Plan of Treatment Not on filedocumented as of this encounter Visit Diagnoses Not on filedocumented in this encounter Additional Health Concerns Infection Onset Date Last Indicated Resolved Time COVID19 Pending 05/01/2021 05/02/2021 05/03/2021 1:10 PM FIELD AGRONOMIST documented as of this encounter
--- OUTSIDE RECORDS SUMMARY | 2022-03-01 10:15 | XMS_ITS | Encounter Summary ---
:1955 Author Organization [facility] Address [address] [place] [address] Care Team Providers Name Role Phone Unavailable Primary Care Provider Unavailable Encounter Details Date Type Department Care Team Description 04/27/2021 Orders Only Division of Trauma Critical Narciso Gama, [facility] Emergency Department and General Surgery in [facility], [place] [address] [place] [address] Social History Tobacco Use Types Packs/Day Years [...] Date Last Indicated Resolved Time COVID19 Pending 04/27/2021 04/28/2021 04/28/2021 1:19 AM BI MANAGER COVID19 Pending 05/01/2021 05/02/2021 05/03/2021 1:10 PM BI MANAGER documented as of this encounter
--- OUTSIDE RECORDS SUMMARY | 2022-03-01 10:15 | XMS_ITS | Encounter Summary ---
:1955 Author Organization [facility] Address [address] [place] [address] Care Team Providers Name Role Phone Unavailable Primary Care Provider Unavailable Encounter Details Date Type Department Care Team Description 04/25/2021 Anesthesia Event RST TRICIA BRISCOE OR Bridger Almaraz M.D. [address] [place] [phone] Anesthesia Record Procedure Summary Procedure Name Responsible Anesthesia Start Anesthesia Stop Anesthesiologist Time Time LAPAROSCOPIC ABDOMINAL EXPLORATION, possible open, possible bowel resection, possible temporary abdominal closure, possible multiple trips to OR Events Date Time Event Comment 04/25/2021 1043 Case Cancelled Case Cancelled - Patient has been seen and a preoperative harrison luation has been completed. No medications on file. Agents No agents on file. Blood No blood administrations on file. Lines, Drains, and Airways No LDAs on file. documented in this encounter Social History Tobacco [...]
--- OUTSIDE RECORDS SUMMARY | 2022-03-01 10:16 | XMS_ITS | Encounter Summary ---
:1955 Author Organization [facility] Address [address] [place] [address] Care Team Providers Name Role Phone Unavailable Primary Care Provider Unavailable Encounter Details Date Type Department Care Team Description 09/14/2018 Orders Only Department of Laquita Silverio Malignant N eoplasm Of Oncology in [facility] Lung Adenocarcinoma Left [place], [place] [address] (HCC) (Primary Dx) [address] [place] [id number] Social History Tobacco Use Types Packs/Day Years Used Date Smoking Tobacco: Former Cigarettes 05 23 Quit : 2004 Smokeless Tobacco: Never Alcohol Use Standard Drinks/Week Comments No 0 (1 standard drink = 0.6 oz pure alcoho l) Sex Assigned at Date Recorded Not on file documented as of this encounter Plan of Treatment Not on filedocumented as of this encounter Visit Diagnoses Diagnosis 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
--- OUTSIDE RECORDS SUMMARY | 2022-03-01 10:16 | XMS_ITS | Encounter Summary ---
:1955 Author Organization [facility] Address [address] [place] [address] Care Team Providers Name Role Phone Unavailable Primary Care Provider Unavailable Reason for Visit Reason Onset Date Comments pertussis exposure 09/18/2018 Encounter Details Date Type Department Care Team Description 09/18/2018 Clinical Communication Division of ana maria Lyn ssis exposure Thoracic Surgery in [place], [facility] [place] [address] [place], [place] [address] [facility] [address] [place], [place] [phone] (Work) [phone] Social History Tobacco Use Types Packs/Day Years Used Date Smoking Tobacco: Former Cigarettes 1 25 Quit : 2004 Smokeless Tobacco: Never Alcohol Use Standard Drinks/Week Comments No 0 (1 standard drink = 0.6 oz pure alcoho l) Sex Assigned at Date Recorded Not on file documented as of this encounter Miscellaneous Notes Telephone Encounter - Sofia Santos R.N. - 09/18/2018 10:48 AM CDT Called Naomi 09/18/18 Telephone Encounter - Sofia Santos R.N. - 09/18/2018 10:45 AM CDT Spoke with Naomi, patient's sister this morning, Mrs. Reyes does have an appointment with her primary tomorrow, therefore suggested that this information be imparted and follow their direction on whether testing needs to be done. At this time she isn't symptomatic. Also suggested looking closely at immunizations at this time. Naomi appreciated the call back. Telephone Encounter - Ana Whittington - 09/18/2018 9:26 AM CDT Patient's sister, Naomi (we have auth), called to inform us that her sister was exposed to pertussis(Naomi's tested positive) and she is wondering if patient needs to have any testing or anything for this. Please call Naomi to advise [phone] documented in this encounter Plan of Treatment Not on filedocumented as of this encounter Visit Diagnoses Not on filedocumented in this encounter
--- OUTSIDE RECORDS SUMMARY | 2022-03-01 10:16 | XMS_ITS | Encounter Summary ---
:1955 Author Organization [facility] Address [address] [place] [address] Care Team Providers Name Role Phone Unavailable Primary Care Provider Unavailable Encounter Details Date Type Department Care Team Description 2021 Ancillary Procedure Department of Alexis Peraza Radiology in [facility] [address] [facility] [address] [place] [phone] (Wo rk) Social History Tobacco Use Types Packs/Day Years [...] Procedure Name Priority Date/Time Associated Comments Diagnosis INTERPRETATION OF RAD - Routine 2021 12:25 Resul ts for OUTSIDE CT ABDOMEN (most inpatients PM COLOR BUFFER this procedure AND OR PELVIS and all are in the outpatients) results section. documented in this encounter Results Interpretation of Outside CT Abdomen and or Pelvis (2021 12:25 PM COLOR BUFFER) Anatomical Region Laterality Modality Abdomen, Pelvis, Abdominal RST LOS, Abdominal ARZ LOS, N/A Computed Tomography Abdominal FLA LOS, Other Specimen (Source) Anatomical Collection Method Collection Time Re ceived Time Location / / Volume Laterality 2021 12:46 PM COLOR BUFFER Impressions 2021 12:55 PM COLOR BUFFER 1. Findings consistent with a mid small bowel obstruction, which may be related to partial volvulus and/or adhesion. [place] el all appears viable, with no evidence of necrosis or perforation. 2. Mildly delayed left nephrogram, of un clear etiology 3. Opacities in both lung bases likely a cute infection/inflammation, possibly due to aspiration. Narrative 2021 12:55 PM COLOR BUFFER EXAM: ??INTERPRETATION OF OUTSIDE CT ABDOMEN AND [...] be related to partial volvulus and/or adhesion. [place] el all appears viable, with no evidence of necrosis or perforation. 2. Mildly delayed left nephrogram, of un clear etiology 3. Opacities in both lung bases likely a cute infection/inflammation, possibly due to aspiration. Alexis Peraza P.A.-C. IMG CT PROCEDURES documented in this encounter Visit Diagnoses Not on filedocumented in this encounter
--- OUTSIDE RECORDS SUMMARY | 2022-03-01 10:16 | XMS_ITS | Encounter Summary ---
:1955 Author Organization [facility] Address [address] [place] [address] Care Team Providers Name Role Phone Unavailable Primary Care Provider Unavailable Reason for Visit Reason Onset Date Comments Post-op 08/13/2018 Encounter Details Date Type Department Care Team Description 08/13/2018 Clinical Communication [facility] [place] [address] [facility] [address] [place] [phone] Social History Tobacco Use Types Packs/Day Years Used Date Smoking Tobacco: Former Cigarettes 1 Quit : 2004 Smokeless Tobacco: Never Alcohol Use Standard Drinks/Week Comments No 0 (1 standard drink = 0.6 oz pure alcoho l) Sex Assigned at Date Recorded Not on file documented as of this encounter Miscellaneous Notes Telephone Encounter - Madina Nieves APRN, C.N.PElvi, M.S.N. - 08/13/2018 1:38 PM CDT Spoke with patient and questions answered. Telephone Encounter - Heidi Stone - 08/13/2018 1:15 PM CDT Surgery 08/07. She wants to get her nails done but wonders if the strong odors in the nail salon would be problematic for her due to her recent surgery. Please call her [phone] documented in this encounter Plan of Treatment Not on filedocumented as of this encounter Visit Diagnoses Not on filedocumented in this encounter
--- OUTSIDE RECORDS SUMMARY | 2022-03-01 10:16 | XMS_ITS | Encounter Summary ---
:1955 Author Organization [facility] Address [address] [place] [address] Care Team Providers Name Role Phone Unavailable Primary Care Provider Unavailable Encounter Details Date Type Department Care Team Description 09/12/2018 Hospital Department of [place], Malignant Neop lasm Of Encounter Radiology, [place] Shani Lares, Lung [facility], in DISTRICT ATTORNEY, C.N.P. Left ([facility]) [place], [facility] [address] [place], [place] [address] [facility] [address] [place], [place] [phone] (Work) [phone] Social History Tobacco Use Types Packs/Day Years Used Date Smoking Tobacco: Former Cigarettes 05 23 Quit : 2004 Smokeless Tobacco: Never Alcohol Use Standard Drinks/Week Comments No 0 (1 standard drink = 0.6 oz pure alcoho l) Sex Assigned at Date Recorded Not on file documented as of this encounter Medications at Time of Discharge Medication Sig Dispensed Refills Start Date End Date ADVAIR DISKUS 250-50 Inhale 1 puff 2 (two) 3 05/30 mcg/act diskus inhaler times a day. citalopram (CeleXA) 20 Take 20 mg by mouth 0 04/30 mg tablet daily. dilTIAZem LA (CARDIZEM Take 120 mg by mouth 0 LA) 120 mg 24 hr tablet at bedtime. fluticasone (FLONASE) 50 Administer 2 sprays 5 mcg/actuation nasal into each nostril at spray bedtime. metFORMIN (GLUCOPHAGE) Take 500 mg by mouth 0 500 mg tablet at bedtime. montelukast (SINGULAIR) Take 10 mg by mouth 0 10 mg tablet at bedtime. MYRBETRIQ 50 mg 24 hr Take 50 mg by mouth 4 05/24 tablet at bedtime. omeprazole (PriLOSEC) 20 Take 20 mg by mouth [address] capsule every morning before breakfast. vitamin E 400 unit Take 400 Units by 0 08/16/2016 capsule mouth daily. zolpidem (AMBIEN) 5 mg Take 5 mg by mouth at 0 tablet bedtime as needed for sleep. acetaminophen (TYLENOL) Take 500 mg by mouth 0 500 mg tablet every 6 (six) hours as needed for pain. albuterol (PROVENTIL Inhale 2 puffs every 0 04/23 HFA,VENTOLIN HFA) 90 4 (four) hours as mcg/actuation inhaler needed for wheezing or shortness of breath. ipratropium-albuterol Inhale 3 mL 4 (four) 0 03/30 (DUO-NEB) 0.5-2.5 mg/3 times a day as needed mL nebulizer solution for wheezing or shortness of breath. ARIPiprazole (ABILIFY) Take 10 mg by mouth 0 2021 10 mg tablet at bedtime. cloZAPine (CLOZARIL) 100 Take 300 mg by mouth 0 0 05/26/2018 04/28/2021 mg tablet at bedtime. cloZAPine (CLOZARIL) 50 Take 50 mg by mouth 0 04/28/2021 mg tablet at bedtime. melatonin 1 mg tablet Take 1 mg by mouth at 0 2021 bedtime. documented as of this encounter Plan of Treatment Not on filedocumented as of this encounter Procedures Procedure Name Priority Date/Time Associated Diagnosis Comme nts DX CHEST AP OR RAD - Routine 09/12/2018 11:43 Malignant Neoplasm Of Results for PA AND LATERAL 2 (most inpatients AM CDT Lung Adenocarcinoma this procedure VIEWS and all Left (HCC) are in the outpatients) results section. documented in this encounter Results DX Chest AP or PA and Lateral 2 Views (09/12/2018 11:43 AM CDT) Anatomical Region Laterality Modality Chest, Thoracic RST LOS, Thoracic ARZ LOS, Thoracic N/A Digital Radiography FLA LOS Specimen (Source) Anatomical Collection Method Collection Time Re ceived Time Location / / Volume Laterality 09/12/2018 12:13 PM CDT Impressions 09/12/2018 12:16 PM CDT IMPRESSION: ??Since 08/09/2018, resolution of the small left apical pneumothorax. New small left pleural effusion. Decreas ed atelectasis in the lower lungs along with airspace opacities in the left lung . Postoperative changes left upper and lower lung. Fat pad at the cardiac apex. Thoracolumbar curve with hypertrophic changes in the spine. Chest otherwise ne gative. Narrative 09/12/2018 12:16 PM CDT EXAM: ??DX CHEST AP OR PA AND LATERAL 2 VIEWS Procedure Note Sudeep Novoa M.D. - 09/12/2018Form atting of this note might be different from the original. EXAM: DX CHEST AP OR PA AND LATERAL 2 EWS IMPRESSION: Since 08/09/2018, resolution of the small left apical pneumothorax. New small left pleural effusion. Decreas ed atelectasis in the lower lungs along with airspace opacities in the left lung . Postoperative changes left upper and lower lung. Fat pad at the cardiac apex. Thoracolumbar curve with hypertrophic changes in the spine. Chest otherwise ne gative. Shani Martin APRN, C.N.P. 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
--- OUTSIDE RECORDS SUMMARY | 2022-03-01 10:16 | XMS_ITS | Encounter Summary ---
:1955 Author Organization [facility] Address [address] [place] [address] Care Team Providers Name Role Phone Unavailable Primary Care Provider Unavailable Encounter Details Date Type Department Care Team Description 04/25/2021 Surgery [facility] MAIN OR Ammon Lino, Not Performed [address] [place] [address] [address] [facility] EXPLORATION, possible [phone] [place], [place] open, possible bowel [id number] resection, possible [phone] temporary abdom inal (Work) closure, possible [phone] multiple trips to OR (Fax) Social History Tobacco Use Types Packs/Day Years Used Date Smoking Tobacco: Former Cigarettes 05 23 Quit : 2004 Smokeless Tobacco: Never Alcohol Use Standard Drinks/Week Comments No 0 (1 standard drink = 0.6 oz pure alcoho l) Sex Assigned at Date Recorded Not on file documented as of this encounter Last Filed Vital Signs Vital Sign Reading Time Taken Comments Blood Pressure 134/75 04/25/2021 11:00 PM PHARMACY RETAIL SUPPORT SPECIALIST Pulse 98 04/25/2021 11:00 PM PHARMACY RETAIL SUPPORT SPECIALIST Temperature 36.5 ??C (97.7 ??F) 04/25/2021 11:00 PM PHARMACY RETAIL SUPPORT SPECIALIST Respiratory Rate 34 04/25/2021 11:00 PM PHARMACY RETAIL SUPPORT SPECIALIST Oxygen Saturation 90% 04/25/2021 11:00 PM PHARMACY RETAIL SUPPORT SPECIALIST Inhaled Oxygen Concentration - - Weight 97.6 kg (215 lb 2.7 oz) 04/25/2021 4:37 PM PHARMACY RETAIL SUPPORT SPECIALIST Height 160 cm (5' 3) 2021 12:15 PM PHARMACY RETAIL SUPPORT SPECIALIST Body Mass Index 38.7 2021 12:15 PM PHARMACY RETAIL SUPPORT SPECIALIST documented in this encounter Discharge Summaries Lilia Colon, HUGH, C.N.P. - 04/28/2021 10:59 AM CST DISCHARGE SUMMARY BRIEF OVERVIEW Hospital: [facility] Discharge Provider: Sudarshan Mayer M.D. Primary Team: T [facility] No primary care provider on file. [...] possible multiple trips to OR Ammon Lino M.D.Rocco, Raffaele, M.D.Traynor, Michael D Jr., M.D., M.P.H. [facility] ROMB OR DISCHARGE DISPOSITION Home or Self Care [1] ACTIVE ISSUES REQUIRING FOLLOW UP NO FOLLOW UP REQUIRED WITH TRAUMA-CRITICAL CARE-GENERAL SURGERY (TCGS): You do not require a follow up appointment at this time. If you are having difficulty, have questions or would like to be seen in follow-up, please call to make an appointment at [phone]. If you need to reach a provider on the TCGS service after hours, you may call the [facility] road mixer operator at and ask to speak the provider cotton tier for the Trauma-Critical Care-General Surgery (TCGS) Service. If you have forms that need addressed by the surgery team or outside records that need to be uploaded, please email them to [email or web address] or fax them at [phone]. PRIMARY CARE PROVIDER: You should follow up [...] Culture, Aerobic + Susc, Resp Collected (04/24/21 131) Gram Stain Collected (04/24/21 131) DETAILS OF HOSPITAL STAY REASON FOR ADMISSION Obstruction Intestinal (HCC) HOSPITAL COURSE Ms. Sarah Reyes is a 66 year old female with a PMH of mitral valve insufficiency, HTN, KEVIN, DM type 2, metabolic syndrome, schizophrenia, left lung adenocarcinoma s/p wedge lung resection (2019) who presented to the [facility] Emergency Department on 04/23 for abdominal pain and vomiting for [address] A/P demonstrated high-grade obstruction in her right lower quadrant. She was admitted overnight and transferred to [facility] on 04/24 due to respiratory distress most [...] were provided to the patient and caregiver(s). MACY RETAIL SUPPORT SPECIALIST documented in this encounter Medications at Time [...] equipment not needed Charlene Shannon P.T., D.P.T. MACY RETAIL SUPPORT SPECIALIST Lilia Colon APRN, C.N.P. - 04/28/2021 9:05 [...] Disposition: Home with family later this morning; [facility] PT referral script given Patient has close follow up with colonoscopy on 05/01/21 and should follow up thereafter with PCP. Sheverbalizes understanding. For questions/concerns in regards to patient plan of care, please page HSS-B service at [phone]. ADDENDUM: ([id number]) Spoke with Naomi, Sister and insole beveler. 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 Will contact faculty support coordinator early a.m.on 05/01 and move this [...] unsuccessful in obtaining PCP appointment as well. MACY RETAIL SUPPORT SPECIALIST Narciso Gama M.B.B.S. - 04/27/2021 10:29 PM [...] -150 ml Physical Exam Hemodynamics: afebrile, Vitals: 04/27/21 2045 BP: 133/74 Pulse: 106 Resp: 30 Temp: [...] for by the HSS-B team. Please page [phone] (HSS-B) with any questions or concerns. Plans were discussed with Dr. Mayer, who was in agreement Thao Lizarraga Resident Physician PGY-1 General Surgery [email or web address] MACY RETAIL SUPPORT SPECIALIST Kathy Zavaleta P.T.A. - 04/27/2021 2:10 PM [...] insufficiency and KEVIN who presented to the [facility] Emergency Department on 04/23 for abdominal pain and vomiting for [address] A/P demonstrated high-grade obstruction in her right lower quadrant. She was admitted overnight and transferred to [facility] on 04/23 due to respiratory distress most [...] Exercise Mode: Active motion against gravity Sets/Repetitions: 05/08 Seated Exercise Comments: home exercise sheet was provided Handouts provided today: Exercises for the Legs (Sitting) ([id number]) The following coordination of care occurred today: [...] mask during therapy session: yes Outcome Measures AM-PAC Inpatient Short Form: AM-PAC Basic Mobility (V.2) How much help from [...] 3-5 steps with a railing?: A Lot -[facility] Basic Mobility (V.2) Raw Score: 20 AM-[facility] Basic Mobility (V.2) Standardized Score: 43.99 Interpretation: Clinicians answer the [facility] Inpatient Short Form based on observed patient [...] Therapeutic exercise,Therapeutic functional activity,Neuromuscular re-education,Self-care/home management,Gait training PORTAL DEVELOPER Visit Trackin Billing: Time Spent with Patient Gait Training (min): 20 min Therapeutic Exercise (min): 12 min Total Timed Units (min): 32 min Total Treatment Time (min): 32 min Kathy Zavaleta, P.T.A. MACY RETAIL SUPPORT SPECIALIST Nancy Lawson Pharm.D., R.Ph. - 04/27/2021 11:50 [...] and bowel regimens. David Lawson Pharm.D., R.Ph. MACY RETAIL SUPPORT SPECIALIST Kim Browne L.G.S.W., M.S.W. - 04/27/2021 11:31 [...] our ownership and financial relationship of the [facility] beds, home health, and hospice agencies. Reviewed Medicare [...] Referrals Sent: 1. [facility] 2. [facility] 3. [facility] 4. [facility] OBJECTIVE Patient seen up in [...] or discharge needs. Mehreen Downing, M.S.W. 04/27/21 Sonido Canales P.A.-C. - 04/27/2021 6:59 AM CST PATIENT NOT SEEN Recommend increasing Abilify to 20 mg daily in the absence of clozapine. Defer consideration of re-initiation of clozapine to her outpatient psychiatrist. Thank you for allowing us to assist in the care of your patient. Please contact me at [phone] withany questions or for further information. After regular work hours, you can contact the On-call service pager at [phone]. Cassandra Cobian M.B.B.S. - 04/26/2021 2:05 PM CST HSS [...] a small-bowel obstruction and was transferred to [facility] ICU. She underwent a Gastrografin challenge [...] for by the HSS-B team. Please page [phone] (HSS-B) with any questions or concerns. Plans were discussed with Dr. Mayer, who was in agreement Ashley YeagerS Resident Physician PGY-1 General Surgery [email or web address] MACY RETAIL SUPPORT SPECIALIST Salty Mustafa P.T.A. - 04/26/2021 1:24 PM CST 04/26/21 1322 Reason Therapy Missed Reason Therapy Missed Patient refused Pt declined therapy with this process description writer due do feel exposed and not comfortable with a male therapist. MACY RETAIL SUPPORT SPECIALIST Lance Armstrong M.D. - 04/25/2021 12:24 PM CST ASSESSMENT [...] with my colleague, Dr. Jonathan Mayer, and [facility]. Lance Armstrong M.D. CT CT Job ID: [id number] Melissa Roberto Pharm.D. - 04/25/2021 9:09 AM CST Pharmacist Progress Note Reason for admission: SBO, last BM 2 days prior PMH: schizophrenia ASSESSMENT and PLAN: Home meds: Per h, holding home clozapine, metformin Neuro: Psych following. Clozapine level ordered. Holding doses for now. Home citalopram, Abilify resumed, ANC 4940 (reported 04/24, q4wk engineering drawings checker). Psych is following and may need [...] <180 Proph: Enoxaparin 40 mg PPI (home) Melissa Soria Pharm.D. MACY RETAIL SUPPORT SPECIALIST Cassandra Olmstead M.B.B.S. - 04/25/2021 7:14 AM CST HSS B SERVICE PROGRESS NOTE SUBJECTIVE [...] & Screen Expiration 04/27/2021 23:59 Testing Location [facility] Hepatic Function Panel Collection Time: 04/24/21 12:57 [...] appropriate. Notable findings include: ASSESSMENT #1 Schizophrenia ([facility]) #2 Obstruction Intestinal ([facility]) #3 Diabetes Mellitus Type 2 With Diabetic Polyneuropathy ([facility]) #4 Morbid Obesity Body Mass Index >= [...] small- bowel obstruction and was transferred to [facility] ICU. She underwent a Gastrografin challenge [...] for by the HSS-B team. Please page [phone] (HSS-B) with any questions or concerns. Plans were discussed with Dr. Mayer, who was in agreement Thao Yeager Resident Physician PGY-1 General Surgery [email or web address] MACY RETAIL SUPPORT SPECIALIST Sofia Knight APRN, C.N.P., D.N.P. - 04/25/2021 1:29 AM CST SUBJECTIVE Brief Summary: Ms. Reyes is a 66 year old female with a PMH of schizophrenia, left lung adenocarcinoma s/p wedge lung resection 2018, T2DM, metabolic syndrome, mitral valve insufficiency and KEVIN who presented to the [facility] Emergency Department on 04/23 for abdominal pain and vomiting for2 days. CT A/P demonstrated high-grade obstruction in her right lower quadrant. She was admitted overnight and transferred to [facility] on 04/23 due to respiratory distress most [...] Index >= 35 with Comorbid Condition (HCC) Melissa Roberto PharmBogdan. - 2021 4:34 PM CST Pharmacist Progress Note Reason for admission: SBO, last BM 2 days prior PMH: schizophrenia ASSESSMENT and PLAN: Home meds: Per RPh, holding home clozapine, metformin Neuro: Psych following. Clozapine level ordered. Holding doses for now. Home citalopram, Abilify resumed, ANC 4940 (reported 04/24, q4wk engineering drawings checker) Resp: On O2 upon arrival, concern [...] BG <180 Proph: SQH, PPI (home) Melissa Soria Pharm.D. Chuck Newton M.D. - 2021 2:30 PM CST SUBJECTIVE [...] & Screen Expiration 04/27/2021 23:59 Testing Location [facility] Hepatic Function Panel Collection Time: 04/24/21 12:57 [...] ambulation. Prophylaxis: Subcu heparin t.i.d. Dispo: SICU MACY RETAIL SUPPORT SPECIALIST Oneal Robison Pharm.D., R.Ph. - 2021 1:46 [...] Status: Pharmacy Complete Set By: Oneal Robison, D., R.Ph. at 2021 1:41 PM Taking? Last [...] mouth at bedtime as needed for sleep. MACY RETAIL SUPPORT SPECIALIST Ruiz Brownlee M.S., O.T. - 2021 1:13 PM CST 04/24/21 1313 Reason Therapy Missed Reason Therapy Missed Medical hold OT/PT orders received, chart review completed. Patient recently admitted with ongoing medical workup. Will hold occupational/physical therapy and initiate plan of care as appropriate. MACY RETAIL SUPPORT SPECIALIST Chuck Wetzel L.R.T. - 2021 12:14 PM [...] PH ART in the last 24 hours. MACY RETAIL SUPPORT SPECIALIST documented in this encounter H&P Notes Sudarshan [...] Former smoker 7. BMI 38.3 8. Schizophrenia MACY RETAIL SUPPORT SPECIALIST Alexis Peraza P.A.-C. - 2021 2:01 PM CST REFERRAL SOURCE [facility] REASON FOR ADMISSION SBO and possible aspiration pneumonia with respiratory distress HISTORY OF PRESENT ILLNESS Ms. Reyes is a 66 year old female with a PMH of schizophrenia, left lung adenocarcinoma s/p wedge lung resection 2018, T2DM, metabolic syndrome, mitral valve insufficiency and KEVIN who presented to [facility] Emergency Department on 04/23 for abdominal pain and vomiting for [address] A/P demonstrated high-grade obstruction in her right lower quadrant. She was admitted overnight and transferred to [facility] on 04/23 due to respiratory distress most [...] Nonrheumatic Mitral Valve Insufficiency 08/27/2017 ??? Other Prison Current Drug Therapy 05/26/2018 ??? Schizophrenia (HCC) 05/05/2018 SURGICAL HISTORY Past Surgical History: Procedure Laterality Date ??? BRONCHOSCOPY FLEXIBLE: EBUS TBNA ENDOBRONCHIAL ULTRASOUND NEEDLE ASPIRATION N/A 06/30/2018 Procedure: Bronchoscopy Flexible: Endobronchial Ultrasound Guided Transbronchial Needle Aspiration;Surgeon: Keaton Noe M.D.; Location: [facility] OR ??? VATS - WEDGE RESECTION LUNG Left 08/07/2018 Procedure: THORACOSCOPY, WEDGE RESECTION LUNG.; Surgeon: Fany yLn M.D.; Location: [facility] OR SOCIAL HISTORY [...] Pack years: 25.00 Types: Cigarettes Quit date: 2005 Years since quittin.9 ??? Smokeless tobacco: Never [...] DISPOSITION: - SICU #1 Obstruction Intestinal (HCC) MACY RETAIL SUPPORT SPECIALIST Sudarshan Mayer M.D. - 2021 2:01 PM [...] developed respiratory distress and presented to [facility] emergency department. PE protocol CT scan was negative. CT scan of abdomen suggested small-bowel obstruction and patient was transferred. CT shows marked distension of stomach and proximal small bowel. Small bowel measures up to 5 cm in diameter. There is a transition to collapsed bowel in the anterior, mid-central false pelvis - [id number], image [id number]. Patient is a very poor [...] at 2.4. White blood count normal in [place]. Will insure adequate volume resuscitation. Discussed with [...] 4.2 noted. Gastrografin administered at 2:37 p.m. MACY RETAIL SUPPORT SPECIALIST documented in this encounter Consult Notes Kim Browne L.G.S.W., M.S.W. - 04/26/2021 11:22 AM CSTAssociated Order(s): [...] much better now. Patient informed social media coordinator of all of the fluids shehas been given since presenting to the hospital, as well as the fact that she has now had bowel function which has alleviated her pain. SOCIAL HISTORY Family / Household: Patient lives with her sister and fltpbgn-fm-tbf. She has never been norhad children. Spirituality / Faith / Culture: Not jewish History: No Employment: Disabled Psychosocial Risk Factors [...] has great support from her sister and zhkdukd-fz-euy with whom she lives. FINANCES/INSURANCE Primary insurance: MEDICARE A AND B Secondary insurance: [place] Financial concerns: No ADVANCE DIRECTIVES Advance [...] She endorses great support from her sister ntjxzxmyju-eb-eoh whom she lives with. She notes that [...] support is provided by patient's sister and edizatn-fk-wrz. She has a long history of schizophrenia [...] of care/plan: None Mehreen Downing, M.S.W. 04/26/2021 MACY RETAIL SUPPORT SPECIALIST Trupti Gonzales O.T. - 04/25/2021 1:59 PM [...] 2 (HCC) ??? Edema Localized ??? Other Manager Field Sales Current Drug Therapy ??? Metabolic Syndrome ??? [...] insufficiency and KEVIN who presented to the [facility] Emergency Department on 04/23 for abdominal pain and vomiting for [address] A/P demonstrated high-grade obstruction in her right lower quadrant. She was admitted overnight and transferred to [facility] on 04/23 due to respiratory distress most likely due to possible aspirationpneumonia. Occupational Profile: Prior Function/Occupational Profile Lives With: Family (Sister and eaqegjy-nd-jle. Patient reports they do work but sometimes workforce management consultant. She was unclear on how often they are home. Further clarification needed. Nephew also stays with them off and on.) Receives Help From: Family ADL Assistance: Modified independent ADL Assistance Comments: Independent in dressing and toileting. Takes seated showers without assistance. IADL/Homemaking Assistance Comments: Patient performs her own meals for breakfast and lunch. Sister and sqxlwif-il-eui prepare dinner and do the majority of cleaning. Patient does own laundry. Sister assists with setting up pill box but patient takes daily on own. Patient has assistance from sister with finances. Family manages yard work. 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 - 04/25/2021 11:30 [...] 2 (HCC) ??? Edema Localized ??? Other Manager Field Sales Current Drug Therapy ??? Metabolic Syndrome ??? [...] insufficiency and KEVIN who presented to the [facility] Emergency Department on 04/23 for abdominal pain and vomiting for [address] A/P demonstrated high-grade obstruction in her right lower quadrant. She was admitted overnight and transferred to [facility] on 04/23 due to respiratory distress most likely due to possible aspiration pneumonia. Prior Function/Occupational Profile Lives With: Family (Sister and abugpau-hf-ebf. Patient reports they do work but sometimes workforce management consultant. She was unclear on how often they are home. Further clarification needed. Nephew also stays with them off and on.) Receives Help From: Family ADL Assistance: Independent ADL Assistance Comments: Independent in dressing and toileting. Takes seated showers independently. IADL/Homemaking Assistance Comments: Patient performs her own meals for breakfast and lunch. Sister and ombsswb-rg-tas prepare dinner and do the majority of cleaning. 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 Inpatient Short Form: -[facility] Basic Mobility (V.2) How much help from [...] 3-5 steps with a railing?: A Lot -[facility] Basic Mobility (V.2) Raw Score: 17 -[facility] Basic Mobility (V.2) Standardized Score: 39.67 Interpretation: Clinicians answer the -[facility] Inpatient Short Form based on observed patient [...] Time (min): 31 min Keaton Owens P.T., Polly.P.T. MACY RETAIL SUPPORT SPECIALIST Cam Mariee M.D. - 2021 4:55 PM [...] agrees with the plan as outlined above. MACY RETAIL SUPPORT SPECIALIST Cassandra Olmstead M.B.B.S. - 2021 4:22 PM [...] respiratory distress the patient was transferred to [facility] directly. After reaching the ICU, the patient [...] Nonrheumatic Mitral Valve Insufficiency 08/27/2017 ??? Other Manager Field Sales Current Drug Therapy 05/26/2018 ??? Schizophrenia (HCC) [...] gas pattern has improved compared to CT football scout image on 04/23/2021. Excreted IV contrast from [...] small-bowel obstruction. Therefore, she was transferred to [place] ICU as a direct admit. The patient [...] Appreciate the cares. Please reach out to S-B team with any questions concerns by paging [phone] (S-B). Plan and assessment were discussed with Dr. Mayer and Dr. Mariee, who were in agreement. TT: 30 minutes, CT > 50%. The patient acknowledges an understanding and agrees with the plan of care. Markus Yeager.S Resident Physician PGY-1 General Surgery [email or web address] MACY RETAIL SUPPORT SPECIALIST Associated attestation - Cam Mariee M.D. - 2021 4:54 PM PHARMACY RETAIL SUPPORT SPECIALIST . Lance Armstrong M.D. - 2021 4:18 PM CST SUBJECTIVE HISTORY OF PRESENT ILLNESS I reviewed, discussed, examined, and agree with documentation of Surgical Critical Care fellow, Dr. Chuck Armstrong. Patient is a 66-year-old female who my colleague, Dr. Jeanie Flores, accepted in transfer from [place], [place]. She has bowel obstruction. Unfortunately, she [...] NG tube in place. Plans from the [facility] Surgical B Service are for standard NG tube decompression followed by Dc eng. I agree with plans as outlined. Lance Armstrong M.D. CT CT Job ID: [id number] MACY RETAIL SUPPORT SPECIALIST Sonido Woodall P.A.-C. - 2021 2:47 PM CSTAssociated Order(s): IP CONSULT TO PSYCHIATRY & PSYCHOLOGY SUBJECTIVE Referring team: [facility] Trauma and General Surgery REASON [...] day with less energy. She notes since FRANCIA the patient has been lessambulatory but without [...] 300 mg (CLOZARIL) (Held by provider since Sat2021 at 1423 by Alexis Peraza P.A.-CElvi.Hold Comments: Pending pysch recommendations) 300 mg, oral, [...] Nonrheumatic Mitral Valve Insufficiency 08/27/2017 ??? Other Manager Field Sales Current Drug Therapy 05/26/2018 ??? Schizophrenia (HCC) 05/05/2018 Past Surgical History: Procedure Laterality Date ??? BRONCHOSCOPY FLEXIBLE: EBUS TBNA ENDOBRONCHIAL ULTRASOUND NEEDLE ASPIRATION N/A 06/30/2018 Procedure: Bronchoscopy Flexible: Endobronchial Ultrasound Guided Transbronchial Needle Aspiration;Surgeon: Keaton Noe M.D.; Location: [facility] OR ??? VATS - WEDGE RESECTION LUNG Left 08/07/2018 Procedure: THORACOSCOPY, WEDGE RESECTION LUNG.; Surgeon: Fany Lyn M.D.; Location: [facility] OR SOCIAL HISTORY Social History Socioeconomic History [...] #1 Schizophrenia (HCC) #2 Obstruction Intestinal (HCC) RECOMMENDATIONS This case will be discussed with a senior telecommunications consultant in the next 24 hours Patient [...] of your patient. Please contact me at [phone] withany questions or for further information. Sonido Woodall P.A.-C. 2021 MACY RETAIL SUPPORT SPECIALIST documented in this encounter Nursing Notes Bethany Salamanca R.N. - 04/28/2021 4:59 PM CST Pt's belongings were all packed up and IV was removed. Education was gone over with pt and her insole beveler (sister) and paperwork was sent with them. Pt will be riding with sister and discharging back home for self care. Escort was called and pt left the unit via wheelchair. MACY RETAIL SUPPORT SPECIALIST Bethany Salamanca R.N. - 04/28/2021 4:57 PM CST Shift Goals: Clinical Goals for the Shift: Ability to void and adequate urine output, maintain hematologic and hemodynamic stability. Identify possible barriers to meeting goals/advancing plan of care: End of Shift Summary: AVS was gone over with patient and her insole beveler (sister) and transport was called to take them downto pharmacy to pharmacy picking tech medications. All questions were answered and pt DC HSC. MACY RETAIL SUPPORT SPECIALIST Nicole Quan R.R.T., L.R.T. - 04/25/2021 10:09 AM CST [...] Nicole Quan R.R.T., L.R.T. 04/25/21 10:09 AM PHARMACY RETAIL SUPPORT SPECIALIST MACY RETAIL SUPPORT SPECIALIST Modesta Bruce R.R.T., Garcia - 04/25/2021 3:24 AM CST Sarah Reyes [...] bedside. Electronically signed by: Modesta Bruce R.R.T., L.R.T. 04/25/21 3:24 AM PHARMACY RETAIL SUPPORT SPECIALIST MACY RETAIL SUPPORT SPECIALIST documented in this encounter Miscellaneous Notes Hospital Course - ChenteLilia Hooper, HUGH, C.N.P. - 04/25/2021 11:53 AM CST Ms. Sarah Reyes is a 66 year old female with a PMH of mitral valve insufficiency, HTN, KEVIN, DM type 2, metabolic syndrome, schizophrenia, left lung adenocarcinoma s/p wedge lung resection (2019) who presented to the [facility] Emergency Department on 04/23 for abdominal pain and vomiting for [address] A/P demonstrated high-grade obstruction in her right lower quadrant. She was admitted overnight and transferred to [facility] on 04/24 due to respiratory distress most [...] outpatient setting. Colonoscopy is scheduled for 05/01/2021. [facility] RETAIL SUPPORT SPECIALIST documented in this encounter Plan of Treatment [...] lts for RNA, RAPID POC, V AM PHARMACY RETAIL SUPPORT SPECIALIST this proce dure are in the results section. CBC WITHOUT Routine 04/27/2021 8:20 Results for DIFFERENTIAL, B PM PHARMACY RETAIL SUPPORT SPECIALIST this procedu re are in the results section. ADULT OXYGEN THERAPY Routine 04/27/2021 8:01 AM PHARMACY RETAIL SUPPORT SPECIALIST CBC WITH Routine 04/26/2021 8:18 Results for DIFFERENTIAL, B PM PHARMACY RETAIL SUPPORT SPECIALIST this procedu re are in the results section. ADULT OXYGEN THERAPY Routine 04/26/2021 8:00 PM PHARMACY RETAIL SUPPORT SPECIALIST CBC WITHOUT Timed 04/26/2021 2:53 Results for DIFFERENTIAL, B PM PHARMACY RETAIL SUPPORT SPECIALIST this procedu re are in the results section. ADULT OXYGEN THERAPY Routine 04/26/2021 8:01 AM PHARMACY RETAIL SUPPORT SPECIALIST DX CHEST PORTABLE 1 RAD - Routine 04/26/2021 5:56 Resu lts for VIEW (most inpatients AM PHARMACY RETAIL SUPPORT SPECIALIST this proced ure and all are in the outpatients) results section. DX ABDOMEN PORTABLE RAD - Routine 04/25/2021 8:50 Resu lts for ANTERIOR POSTERIOR 1 (most inpatients PM PHARMACY RETAIL SUPPORT SPECIALIST thi s procedure VIEW and all are in the outpatients) results section. CBC WITHOUT Routine 04/25/2021 8:29 Results for DIFFERENTIAL, B PM PHARMACY RETAIL SUPPORT SPECIALIST this procedu re are in the results section. BASIC METABOLIC Routine 04/25/2021 8:29 Results f or PANEL, S/P PM PHARMACY RETAIL SUPPORT SPECIALIST this procedure are in the results section. ADULT OXYGEN THERAPY Routine 04/25/2021 8:00 PM PHARMACY RETAIL SUPPORT SPECIALIST GLUCOSE POCT, B Routine 04/25/2021 11:29 Results for AM PHARMACY RETAIL SUPPORT SPECIALIST this procedure are in the results section. GLUCOSE POCT, B Routine 04/25/2021 9:38 Results f or AM PHARMACY RETAIL SUPPORT SPECIALIST this procedure are in the results section. DX ABDOMEN PORTABLE RAD - Semiurgent 04/25/2021 8:40 R esults for ANTERIOR POSTERIOR 1 (Fast; most ED AM PHARMACY RETAIL SUPPORT SPECIALIST this procedure VIEW patients; some are in the inpatients) results section. ADULT OXYGEN THERAPY Routine 04/25/2021 8:01 AM PHARMACY RETAIL SUPPORT SPECIALIST PATIENT STATUS Routine 04/25/2021 4:46 Results fo r AM PHARMACY RETAIL SUPPORT SPECIALIST this procedure are in the results section. ABG W/COOX Routine 04/25/2021 4:46 Results for AM PHARMACY RETAIL SUPPORT SPECIALIST this procedure are in the results section. CLOZAPINE, S Routine 04/25/2021 4:40 Results for AM PHARMACY RETAIL SUPPORT SPECIALIST this procedure are in the results section. CBC WITHOUT Routine 04/25/2021 4:40 Results for DIFFERENTIAL, B AM PHARMACY RETAIL SUPPORT SPECIALIST this procedu re are in the results section. MAGNESIUM, S Routine 04/25/2021 4:40 Results for AM PHARMACY RETAIL SUPPORT SPECIALIST this procedure are in the results section. BASIC METABOLIC Routine 04/25/2021 4:40 Results f or PANEL, S/P AM PHARMACY RETAIL SUPPORT SPECIALIST this procedure are in the results section. THROMBOELASTOGRAPH, Routine 04/25/2021 4:38 Resul ts for KAOLIN, B AM PHARMACY RETAIL SUPPORT SPECIALIST this procedure are in the results section. DX CHEST PORTABLE 1 RAD - Routine 04/25/2021 4:11 Resu lts for VIEW (most inpatients AM PHARMACY RETAIL SUPPORT SPECIALIST this proced ure and all are in the outpatients) results section. GLUCOSE POCT, B Routine 04/25/2021 3:34 Results f or AM PHARMACY RETAIL SUPPORT SPECIALIST this procedure are in the results section. GLUCOSE POCT, B Routine 04/25/2021 12:06 Results for AM PHARMACY RETAIL SUPPORT SPECIALIST this procedure are in the results section. DX ABDOMEN PORTABLE RAD - Routine 2021 11:05 Res ults for ANTERIOR POSTERIOR 1 (most inpatients PM PHARMACY RETAIL SUPPORT SPECIALIST thi s procedure VIEW and all are in the outpatients) results section. ADULT OXYGEN THERAPY Routine 2021 8:00 PM PHARMACY RETAIL SUPPORT SPECIALIST PROTHROMBIN TIME Timed 2021 6:57 Results for (PT), P PM PHARMACY RETAIL SUPPORT SPECIALIST this procedure are in the results section. CBC WITHOUT Timed 2021 6:57 Results for DIFFERENTIAL, B PM PHARMACY RETAIL SUPPORT SPECIALIST this procedu re are in the results section. LACTATE, B/P Timed 2021 6:57 Results for PM PHARMACY RETAIL SUPPORT SPECIALIST this procedure are in the results section. BASIC METABOLIC Timed 2021 6:57 Results f or PANEL, S/P PM PHARMACY RETAIL SUPPORT SPECIALIST this procedure are in the results section. TROPONIN T, 2H/6H, Timed 2021 2:55 Result s for 5TH GEN, P PM PHARMACY RETAIL SUPPORT SPECIALIST this procedure are in the results section. CLOZAPINE, S Timed 2021 2:55 Results for PM PHARMACY RETAIL SUPPORT SPECIALIST this procedure are in the results section. SARS CORONAVIRUS 2, Routine 2021 2:29 Resul ts for RNA, RAPID POC, V PM PHARMACY RETAIL SUPPORT SPECIALIST this proce dure are in the results section. DX ABDOMEN PORTABLE RAD - Routine 2021 2:17 Resu lts for ANTERIOR POSTERIOR 1 (most inpatients PM PHARMACY RETAIL SUPPORT SPECIALIST thi s procedure VIEW and all are in the outpatients) results section. PATIENT STATUS STAT 2021 1:00 Results fo r PM PHARMACY RETAIL SUPPORT SPECIALIST this procedure are in the results section. ABG W/COOX STAT 2021 1:00 Results for PM PHARMACY RETAIL SUPPORT SPECIALIST this procedure are in the results section. CALCIUM, IONIZED, S/B STAT 2021 1:00 Res ults for PM PHARMACY RETAIL SUPPORT SPECIALIST this procedure are in the results section. TROPONIN T, BASELINE, STAT 2021 12:57 Re sults for 5TH GEN, P PM PHARMACY RETAIL SUPPORT SPECIALIST this procedure are in the results section. HEPATIC FUNCTION STAT 2021 12:57 Results for PANEL, S PM PHARMACY RETAIL SUPPORT SPECIALIST this procedure are in the results section. CBC WITHOUT STAT 2021 12:57 Results for DIFFERENTIAL, B PM PHARMACY RETAIL SUPPORT SPECIALIST this procedu re are in the results section. TYPE AND SCREEN Routine 2021 12:57 Results for PM PHARMACY RETAIL SUPPORT SPECIALIST this procedure are in the results section. LACTATE, B/P STAT 2021 12:57 Results for PM PHARMACY RETAIL SUPPORT SPECIALIST this procedure are in the results section. BASIC METABOLIC STAT 2021 12:57 Results for PANEL, S/P PM PHARMACY RETAIL SUPPORT SPECIALIST this procedure are in the results section. THROMBOELASTOGRAPH, STAT 2021 12:55 Resu lts for KAOLIN, B PM PHARMACY RETAIL SUPPORT SPECIALIST this procedure are in the results section. CBC WITH Routine 2021 12:41 Results for DIFFERENTIAL, B PM PHARMACY RETAIL SUPPORT SPECIALIST this procedu re are in the results section. DX CHEST PORTABLE 1 RAD - Routine 2021 12:34 Res ults for VIEW (most inpatients PM PHARMACY RETAIL SUPPORT SPECIALIST this proced ure and all are in the outpatients) results section. DX ABDOMEN PORTABLE RAD - Semiurgent 2021 12:33 Results for ANTERIOR POSTERIOR 1 (Fast; most ED PM PHARMACY RETAIL SUPPORT SPECIALIST this procedure VIEW patients; some are in the inpatients) results section. INTERPRETATION OF RAD - Routine 2021 12:25 Resul ts for OUTSIDE CT ABDOMEN (most inpatients PM PHARMACY RETAIL SUPPORT SPECIALIST this procedure AND OR PELVIS and all are in the outpatients) results section. ECG STAT 2021 12:15 Results for PM PHARMACY RETAIL SUPPORT SPECIALIST this procedure are in the results section. ADULT OXYGEN THERAPY Routine 2021 11:59 AM PHARMACY RETAIL SUPPORT SPECIALIST ADULT OXYGEN THERAPY Routine 2021 11:59 AM PHARMACY RETAIL SUPPORT SPECIALIST documented in this encounter Results SARS Coronavirus 2, RNA, Rapid POC, V Asymptomatic (04/28/2021 12:58 AM PHARMACY RETAIL SUPPORT SPECIALIST) [facility] Method Time Signature SARS Undetected Undetected 04/28/2021 DTLR Coronavirus-2 1:19 AM PHARMACY RETAIL SUPPORT SPECIALIST , RNA, Rapid POC, V Comment: Negative for SARS-CoV-2. The [employer] COVID-19 test is a molecular erin t for SARS-CoV-2, the virus that causes COVID- 19. A Negative result means that the [employer] COV ID-19 test did not detect SARS-CoV-2 virus in your sample. [employer] COVID-19 test uses the Zen[employer] nitoring System. This test has received Emergency Use Authorization (EUA) by the U.S. Food and Drug Administration (FDA) and is used per man ufacturer instructions. Performance characteristic s were verified by [facility] in a manner consistent with CLIA requirements. Fact sheets for this Emerg ency Use Authorization (EUA) can be found at the following links: Providers: [email or web address]/prov iders.pdf Patients: [email or web address]/dinora ents.pdf SARS Coronavirus 2, Source Nasopharynx DEFAULT 04/28/2021 1:19 AM PHARMACY RETAIL SUPPORT SPECIALIST DTLR Specimen Anatomical Collection Method Collection Time Receive d Time (Source) Location / / Volume Laterality Varies 04/28/2021 12:58 04/28/2021 (Nasopharynx) AM PHARMACY RETAIL SUPPORT SPECIALIST 12:58 AM PHARMACY RETAIL SUPPORT SPECIALIST Narciso Malcolm LAB MICROBIOLOGY - GENERAL O RDERABLES Performing Organization Address City/State/ZIP Code Phon e Number PERFORMING LABS, REF [place] [address] INTERFACE Ref Interface [address] [facility] DTLR Performing Labs, [place] [address] Interface [address] [facility] (ABNORMAL) CBC without Differential (04/27/2021 8:20 PM PHARMACY RETAIL SUPPORT SPECIALIST) [facility] Method Time Signature Hemoglobin 10.8 (L) 11.6 - 04/27/2021 DTL 15.0 g/dL 8:39 PM PHARMACY RETAIL SUPPORT SPECIALIST Hematocrit 33.6 (L) 35.5 - 04/27/2021 DTL 44.9 % 8:39 PM PHARMACY RETAIL SUPPORT SPECIALIST Erythrocytes 3.83 (L) 3.92 - 04/27/2021 DTL 5.13 8:39 PM PHARMACY RETAIL SUPPORT SPECIALIST x10(12)/L MCV 87.7 78.2 - 04/27/2021 DTL 97.9 fL 8:39 PM PHARMACY RETAIL SUPPORT SPECIALIST RBC Distrib Width 13.4 12.2 - 04/27/2021 DTL 16.1 % 8:39 PM PHARMACY RETAIL SUPPORT SPECIALIST Platelet Count 195 157 - 371 04/27/2021 DTL x10(9)/L 8:39 PM PHARMACY RETAIL SUPPORT SPECIALIST Leukocytes 7.7 3.4 - 9.6 04/27/2021 DTL x10(9)/L 8:39 PM PHARMACY RETAIL SUPPORT SPECIALIST Specimen Anatomical Collection Method Collection Time Receive d Time (Source) Location / / Volume Laterality Blood (Blood, 04/27/2021 8:20 PM 04/27/20 8:33 Venous) PHARMACY RETAIL SUPPORT SPECIALIST PM PHARMACY RETAIL SUPPORT SPECIALIST Narciso Malcolm LAB BLOOD ADD-ON Performing Organization Address City/State/ZIP Code Phon e Number [facility] - [address] [address] [address] [place] [address] [facility] [address] [facility] (ABNORMAL) CBC with Differential, Blood (04/26/2021 8:18 PM PHARMACY RETAIL SUPPORT SPECIALIST) [facility] gist Method Time Signature Hemoglobin 10.8 (L) 11.6 - 04/26/2021 DTL 15.0 g/dL 9:02 PM PHARMACY RETAIL SUPPORT SPECIALIST Hematocrit 33.9 (L) 35.5 - 04/26/2021 DTL 44.9 % 9:02 PM PHARMACY RETAIL SUPPORT SPECIALIST Erythrocytes 3.82 (L) 3.92 - 04/26/2021 DTL 5.13 9:02 PM PHARMACY RETAIL SUPPORT SPECIALIST x10(12)/L MCV 88.7 78.2 - 04/26/2021 DTL 97.9 fL 9:02 PM PHARMACY RETAIL SUPPORT SPECIALIST RBC Distrib Width 13.6 12.2 - 04/26/2021 DTL 16.1 % 9:02 PM PHARMACY RETAIL SUPPORT SPECIALIST Platelet Count 182 157 - 371 04/26/2021 DTL x10(9)/L 9:02 PM PHARMACY RETAIL SUPPORT SPECIALIST Leukocytes 7.6 3.4 - 9.6 04/26/2021 DTL x10(9)/L 9:02 PM PHARMACY RETAIL SUPPORT SPECIALIST Neutrophils 5.19 1.56 - 04/26/2021 DTL 6.45 9:02 PM PHARMACY RETAIL SUPPORT SPECIALIST x10(9)/L Lymphocytes 1.83 0.95 - 04/26/2021 DTL 3.07 9:02 PM PHARMACY RETAIL SUPPORT SPECIALIST x10(9)/L Monocytes 0.41 0.26 - 04/26/2021 DTL 0.81 9:02 PM PHARMACY RETAIL SUPPORT SPECIALIST x10(9)/L Eosinophils 0.04 0.03 - 04/26/2021 DTL 0.48 9:02 PM PHARMACY RETAIL SUPPORT SPECIALIST x10(9)/L Basophils 0.08 0.01 - 04/26/2021 DTL 0.08 9:02 PM PHARMACY RETAIL SUPPORT SPECIALIST x10(9)/L Specimen Anatomical Collection Method Collection Time Receive d Time (Source) Location / / Volume Laterality Blood (Blood, 04/26/2021 8:18 PM 04/26/20 21 8:55 Venous) PHARMACY RETAIL SUPPORT SPECIALIST PM PHARMACY RETAIL SUPPORT SPECIALIST Sudarshan Lomeli Jr., HUGH, C.N.P., M.S.N. LAB BLOOD AD D-ON Performing Organization Address City/State/ZIP Code Phon e Number [facility] - [address] [place], [place] [address] [facility] [place] [address] [facility] [address] [facility] (ABNORMAL) CBC without Differential (04/26/2021 2:53 PM PHARMACY RETAIL SUPPORT SPECIALIST) [facility] gist Method Time Signature Hemoglobin 11.2 (L) 11.6 - 04/26/2021 DTL 15.0 g/dL 3:30 PM PHARMACY RETAIL SUPPORT SPECIALIST Hematocrit 35.6 35.5 - 04/26/2021 DTL 44.9 % 3:30 PM PHARMACY RETAIL SUPPORT SPECIALIST Erythrocytes 3.95 3.92 - 04/26/2021 DTL 5.13 3:30 PM PHARMACY RETAIL SUPPORT SPECIALIST x10(12)/L MCV 90.1 78.2 - 04/26/2021 DTL 97.9 fL 3:30 PM PHARMACY RETAIL SUPPORT SPECIALIST RBC Distrib Width 13.7 12.2 - 04/26/2021 DTL 16.1 % 3:30 PM PHARMACY RETAIL SUPPORT SPECIALIST Platelet Count 143 (L) 157 - 371 04/26/2021 DTL x10(9)/L 3:30 PM PHARMACY RETAIL SUPPORT SPECIALIST Leukocytes 7.1 3.4 - 9.6 04/26/2021 DTL x10(9)/L 3:30 PM PHARMACY RETAIL SUPPORT SPECIALIST Specimen Anatomical Collection Method Collection Time Receive d Time (Source) Location / / Volume Laterality Blood (Blood, 04/26/2021 2:53 PM 04/26/20 21 3:22 Venous) PHARMACY RETAIL SUPPORT SPECIALIST PM PHARMACY RETAIL SUPPORT SPECIALIST Sudarshan Lomeli Jr., HUGH, C.N.P., M.S.N. LAB BLOOD AD D-ON Performing Organization Address City/State/ZIP Code Phon e Number [facility] - [address] [place], [place] [address] [place] [place] [address] [facility] [address] DX Chest Portable 1 View (04/26/2021 5:56 AM PHARMACY RETAIL SUPPORT SPECIALIST) Anatomical Region Laterality Modality Chest, Thoracic RST LOS, Thoracic ARZ LOS, Thoracic N/A Digital Radiography FLA LOS Specimen (Source) Anatomical Collection Method Collection Time Re ceived Time Location / / Volume Laterality 04/26/2021 6:25 AM PHARMACY RETAIL SUPPORT SPECIALIST Impressions 04/26/2021 6:26 AM PHARMACY RETAIL SUPPORT SPECIALIST No significant change since 04/25/2021. Diffuse bilateral pulmonary opacities. Postoperative changes left renu ng. NG tube tip below the diaphragm. Narrative 04/26/2021 6:26 AM PHARMACY RETAIL SUPPORT SPECIALIST EXAM: ??DX CHEST PORTABLE 1 VIEW Procedure Note Jose Enrique Maharaj M.D. - 04/26/2021Forma tting of this note might be different from the original. EXAM: DX CHEST PORTABLE 1 VIEW IMPRESSION: No significant change since 04/25/2021. Diffuse bilateral pulmonary opacities. Postoperative changes left renu ng. NG tube tip below the diaphragm. Andrew Bazan M.D., M.S. IMG DIAGNOSTIC IMAGING PROCE [facility] DX Abdomen Portable Anterior Posterior 1 View (04/25/2021 8:50 PM PHARMACY RETAIL SUPPORT SPECIALIST) Anatomical Region Laterality Modality Abdomen, Abdominal RST LOS, Abdominal ARZ LOS, N/A Digital Radiography Abdominal FLA LOS Specimen (Source) Anatomical Collection Method Collection Time Re ceived Time Location / / Volume Laterality 04/25/2021 9:30 PM PHARMACY RETAIL SUPPORT SPECIALIST Impressions 04/26/2021 7:28 AM PHARMACY RETAIL SUPPORT SPECIALIST Since 04/17/2021 and 0835, no significant change. [...] oracolumbar spinal levocurvature. Narrative 04/26/2021 7:28 AM PHARMACY RETAIL SUPPORT SPECIALIST EXAM: ??DX ABDOMEN PORTABLE ANTERIOR POSTERIOR 1 [...] oracolumbar spinal levocurvature. Mikel Powell II, M.D. IMG DIAGNOSTIC IMAGING PROCE [facility] (ABNORMAL) Basic Metabolic Panel (04/25/2021 8:29 PM PHARMACY RETAIL SUPPORT SPECIALIST) P athologist Signature Potassium, S 3.7 3.6 - 5.2 04/25/2021 DTL mmol/L 9:11 PM PHARMACY RETAIL SUPPORT SPECIALIST Sodium, S 146 (H) 135 - 145 04/25/2021 DTL mmol/L 9:11 PM PHARMACY RETAIL SUPPORT SPECIALIST Chloride, S 112 (H) 98 - 107 04/25/2021 DTL mmol/L 9:11 PM PHARMACY RETAIL SUPPORT SPECIALIST Bicarbonate, S 25 22 - 29 04/25/2021 DTL mmol/L 9:11 PM PHARMACY RETAIL SUPPORT SPECIALIST Anion Gap 9 7 - 15 04/25/2021 DTL 9:11 PM PHARMACY RETAIL SUPPORT SPECIALIST BUN (Blood Urea 28 (H) 6 - 21 04/25/2021 DTL Nitrogen), S mg/dL 9:11 PM PHARMACY RETAIL SUPPORT SPECIALIST Creatinine 0.64 0.59 - 04/25/2021 DTL 1.04 mg/dL 9:11 PM PHARMACY RETAIL SUPPORT SPECIALIST eGFR-Non >90 >=60 04/25/2021 DTL Black/ mL/min/BSA 9:11 PM PHARMACY RETAIL SUPPORT SPECIALIST Eritrean Comment: ----ADDITIONAL INFORMATION---- Estimated GFR calculated using the 2009 CKD_EPI creatinine equation. eGFR-Black/ >90 >=60 mL/min/BSA 2020 9:11 PM PHARMACY RETAIL SUPPORT SPECIALIST DTL Comment: ----ADDITIONAL INFORMATION---- Estimated GFR calculated using the 2009 CKD_EPI creatinine equation. Calcium, Total, S 8.5 (L) 8.8 - 10.2 mg/dL 04/25/2021 9:11 PM PHARMACY RETAIL SUPPORT SPECIALIST DTL Glucose, S 147 (H) 70 - 140 mg/dL 04/25/2021 9:11 PM PHARMACY RETAIL SUPPORT SPECIALIST D TL Specimen Anatomical Collection Method Collection Time Receive d Time (Source) Location / / Volume Laterality Blood (Blood, 04/25/2021 8:29 PM 04/25/20 21 8:57 Venous) PHARMACY RETAIL SUPPORT SPECIALIST PM PHARMACY RETAIL SUPPORT SPECIALIST Andrew Bazan M.D., M.S. LAB BLOOD ADD-ON Performing Organization Address City/[facility] Phon e Number [facility] - [address] [place], [place] [address] [place] [address] CBC without Differential (04/25/2021 8:29 PM PHARMACY RETAIL SUPPORT SPECIALIST) P athologist Signature Hemoglobin 11.7 11.6 - 04/25/2021 DTL 15.0 g/dL 8:52 PM PHARMACY RETAIL SUPPORT SPECIALIST Hematocrit 37.7 35.5 - 04/25/2021 DTL 44.9 % 8:52 PM PHARMACY RETAIL SUPPORT SPECIALIST Erythrocytes 4.15 3.92 - 04/25/2021 DTL 5.13 8:52 PM PHARMACY RETAIL SUPPORT SPECIALIST x10(12)/L MCV 90.8 78.2 - 04/25/2021 DTL 97.9 fL 8:52 PM PHARMACY RETAIL SUPPORT SPECIALIST RBC Distrib Width 13.9 12.2 - 04/25/2021 DTL 16.1 % 8:52 PM PHARMACY RETAIL SUPPORT SPECIALIST Platelet Count 186 157 - 371 04/25/2021 DTL x10(9)/L 8:52 PM PHARMACY RETAIL SUPPORT SPECIALIST Leukocytes 6.1 3.4 - 9.6 04/25/2021 DTL x10(9)/L 8:52 PM PHARMACY RETAIL SUPPORT SPECIALIST Specimen Anatomical Collection Method Collection Time Receive d Time (Source) Location / / Volume Laterality Blood (Blood, 04/25/2021 8:29 PM 04/25/20 21 8:46 Venous) PHARMACY RETAIL SUPPORT SPECIALIST PM PHARMACY RETAIL SUPPORT SPECIALIST Andrew Bazan M.D., M.S. LAB BLOOD ADD-ON Performing Organization Address City/[facility] Phon e Number [facility] - [address] [place], [place] [address] [facility] [place] [address] [facility] [address] Glucose, POCT (04/25/2021 11:29 AM PHARMACY RETAIL SUPPORT SPECIALIST) athologist Signature Glucose, POCT, 104 70 - 140 04/25/2021 PCLX B mg/dL 11:30 AM PHARMACY RETAIL SUPPORT SPECIALIST Site ARTLINE 04/25/2021 PCLX 11:30 AM PHARMACY RETAIL SUPPORT SPECIALIST Specimen Anatomical Collection Method Collection Time Receive d Time (Source) Location / / Volume Laterality Blood 04/25/2021 11:29 04/25/2021 AM PHARMACY RETAIL SUPPORT SPECIALIST 11:31 AM PHARMACY RETAIL SUPPORT SPECIALIST Unknown Provider LAB POCT ORDERABLES-MANUAL Performing Organization Address City/State/ZIP Code Phon e Number POC [facility] [address] [place] [address] [place] [address] [facility] [address] [facility] Glucose, POCT (04/25/2021 9:38 AM PHARMACY RETAIL SUPPORT SPECIALIST) athologist Signature Glucose, POCT, 125 70 - 140 04/25/2021 PCLX B mg/dL 9:40 AM PHARMACY RETAIL SUPPORT SPECIALIST Site ARTLINE 04/25/2021 PCLX 9:40 AM PHARMACY RETAIL SUPPORT SPECIALIST Specimen Anatomical Collection Method Collection Time Receive d Time (Source) Location / / Volume Laterality Blood 04/25/2021 9:38 AM 9:40 PHARMACY RETAIL SUPPORT SPECIALIST AM PHARMACY RETAIL SUPPORT SPECIALIST Unknown Provider LAB POCT ORDERABLES-MANUAL Performing Organization Address City/[facility] Phon e Number POC [facility] [address] [place] [address] [place] [address] [place] [facility] [address] [facility] DX Abdomen Portable Anterior Posterior 1 View (04/25/2021 8:40 AM PHARMACY RETAIL SUPPORT SPECIALIST) Anatomical Region Laterality Modality Abdomen, Abdominal RST LOS, Abdominal ARZ LOS, N/A Digital Radiography Abdominal FLA LOS Specimen (Source) Anatomical Collection Method Collection Time Re ceived Time Location / / Volume Laterality 04/25/2021 8:42 AM PHARMACY RETAIL SUPPORT SPECIALIST Impressions 04/25/2021 8:45 AM PHARMACY RETAIL SUPPORT SPECIALIST Dilatation of multiple loops of small bowel. [...] Left thoracotom y. Narrative 04/25/2021 8:45 AM PHARMACY RETAIL SUPPORT SPECIALIST EXAM: ??DX ABDOMEN PORTABLE ANTERIOR POSTERIOR 1 [...] Opacities in both lungs. Left thoracotom y. Pepper Chavez APRNNTristian IMG DIAGNOSTIC IMAGING PROCE [facility] Patient Status (04/25/2021 4:46 AM PHARMACY RETAIL SUPPORT SPECIALIST) athologist Signature O2 Flow 4.5 L/min 04/25/2021 STMA 4:50 AM PHARMACY RETAIL SUPPORT SPECIALIST Device BPAP 04/25/2021 STMA 4:50 AM PHARMACY RETAIL SUPPORT SPECIALIST Spont. 22 04/25/2021 STMA breaths/min 4:50 AM PHARMACY RETAIL SUPPORT SPECIALIST Specimen Anatomical Collection Method Collection Time Receive d Time (Source) Location / / Volume Laterality Blood 04/25/2021 4:46 AM 4:50 PHARMACY RETAIL SUPPORT SPECIALIST AM PHARMACY RETAIL SUPPORT SPECIALIST Alexis Peraza P.A.-C. LAB BLOOD NON ADD-ON Performing Organization Address City/State/ZIP Code Phon e Number [facility] - [address] [place], [place] [address] [facility] [place] [address] [facility] [address] [facility] (ABNORMAL) Blood Gas with Coox, Arterial (04/25/2021 4:46 AM PHARMACY RETAIL SUPPORT SPECIALIST) athologist Signature pO2 72 (L) 83 - 108 04/25/2021 STMA mm Hg 4:52 AM PHARMACY RETAIL SUPPORT SPECIALIST pCO2 43 32 - 45 mm 04/25/2021 STMA Hg 4:52 AM PHARMACY RETAIL SUPPORT SPECIALIST pH 7.44 7.35 - 04/25/2021 STMA 7.45 pH 4:52 AM PHARMACY RETAIL SUPPORT SPECIALIST Base Excess 6 (H) -2 - 3 04/25/2021 STMA mmol/L 4:52 AM PHARMACY RETAIL SUPPORT SPECIALIST HCO3 30 (H) 22 - 26 04/25/2021 STMA mmol/L 4:52 AM PHARMACY RETAIL SUPPORT SPECIALIST Hemoglobin, B 11.1 (L) 11.6 - 04/25/2021 STMA 15.0 g/dL 4:52 AM PHARMACY RETAIL SUPPORT SPECIALIST O2Hb 93.6 (L) 94.0 - 04/25/2021 STMA 98.0 % 4:52 AM PHARMACY RETAIL SUPPORT SPECIALIST COHb 1.5 <3.0 % 04/25/2021 STMA 4:52 AM PHARMACY RETAIL SUPPORT SPECIALIST MetHb <1.0 <1.5 % 04/25/2021 STMA 4:52 AM PHARMACY RETAIL SUPPORT SPECIALIST CtO2 14.7 (L) 18.0 - 04/25/2021 STMA 21.0 vol % 4:52 AM PHARMACY RETAIL SUPPORT SPECIALIST Arterial L-Radial 04/25/2021 STMA Sample Site 4:52 AM PHARMACY RETAIL SUPPORT SPECIALIST Comment: Felice's test abnormal. Specimen Anatomical Collection Method Collection Time Receive d Time (Source) Location / / Volume Laterality Blood (Blood, 04/25/2021 4:46 AM 04/25/20 4:50 Arterial) PHARMACY RETAIL SUPPORT SPECIALIST AM PHARMACY RETAIL SUPPORT SPECIALIST Alexis Peraza P.A.-C. LAB BLOOD NON ADD-ON Performing Organization Address City/State/ZIP Code Phon e Number [facility] - [address] [place], [place] [address] [facility] [place] [address] [facility] [address] Clozapine (Clozaril), Level (04/25/2021 4:40 AM PHARMACY RETAIL SUPPORT SPECIALIST) [facility] Method Time Signature Clozapine 395 350 - 600 ng/mL 04/25/2021 [facility] 6:15 PM PHARMACY RETAIL SUPPORT SPECIALIST Norclozapine 186 Not well 04/25/2021 [facility] established 6:15 PM PHARMACY RETAIL SUPPORT SPECIALIST ng/mL Clozapine+Norclo 581 Not well 04/25/2021 [facility] zapine Total established 6:15 PM PHARMACY RETAIL SUPPORT SPECIALIST ng/mL Comment: ----ADDITIONAL INFORMATION---- This test was developed and its performa nce characteristics determined by [facility] in a manner consistent with CLIA requirements. This test has not been cleared or approved by the U.S. Jeff d and Drug Administration. Specimen Anatomical Collection Method Collection Time Receive d Time (Source) Location / / Volume Laterality Blood (Blood, 04/25/2021 4:40 AM 04/25/20 21 Venous) PHARMACY RETAIL SUPPORT SPECIALIST 12:48 PM PHARMACY RETAIL SUPPORT SPECIALIST Alexis Peraza P.A.-C. LAB BLOOD NON ADD-ON Performing Organization Address City/State/ZIP Code Phon e Number [facility] [address] ART [place], [place] [address] [place] [address] CENTER [facility] [place] [address] Laboratory Medicine and Pathology [address] ART (ABNORMAL) Magnesium (04/25/2021 4:40 AM PHARMACY RETAIL SUPPORT SPECIALIST) P athologist Signature Magnesium, S 2.4 (H) 1.7 - 2.3 04/25/2021 DTL mg/dL 5:53 AM PHARMACY RETAIL SUPPORT SPECIALIST Specimen Anatomical Collection Method Collection Time Receive d Time (Source) Location / / Volume Laterality Blood (Blood, 04/25/2021 4:40 AM 04/25/20 21 5:30 Venous) PHARMACY RETAIL SUPPORT SPECIALIST AM PHARMACY RETAIL SUPPORT SPECIALIST Alexis Peraza P.A.-C. LAB BLOOD ADD-ON Performing Organization Address City/[facility] Code Phon e Number [facility] - [address] [place], [place] [address] [facility] [place] [address] [facility] 200 [facility] (ABNORMAL) CBC without Differential (04/25/2021 4:40 AM PHARMACY RETAIL SUPPORT SPECIALIST) Patholo gist Method Time Signature Hemoglobin 10.9 (L) 11.6 - 04/25/2021 DTL 15.0 g/dL 5:22 AM PHARMACY RETAIL SUPPORT SPECIALIST Hematocrit 34.6 (L) 35.5 - 04/25/2021 DTL 44.9 % 5:22 AM PHARMACY RETAIL SUPPORT SPECIALIST Erythrocytes 3.84 (L) 3.92 - 04/25/2021 DTL 5.13 5:22 AM PHARMACY RETAIL SUPPORT SPECIALIST x10(12)/L MCV 90.1 78.2 - 04/25/2021 DTL 97.9 fL 5:22 AM PHARMACY RETAIL SUPPORT SPECIALIST RBC Distrib Width 14.0 12.2 - 04/25/2021 DTL 16.1 % 5:22 AM PHARMACY RETAIL SUPPORT SPECIALIST Platelet Count 186 157 - 371 04/25/2021 DTL x10(9)/L 5:22 AM PHARMACY RETAIL SUPPORT SPECIALIST Leukocytes 5.5 3.4 - 9.6 04/25/2021 DTL x10(9)/L 5:22 AM PHARMACY RETAIL SUPPORT SPECIALIST Specimen Anatomical Collection Method Collection Time Receive d Time (Source) Location / / Volume Laterality Blood (Blood, 04/25/2021 4:40 AM 04/25/20 5:12 Venous) PHARMACY RETAIL SUPPORT SPECIALIST AM PHARMACY RETAIL SUPPORT SPECIALIST Alexis Peraza P.A.-C. LAB BLOOD ADD-ON Performing Organization Address City/State/ZIP Code Phon e Number [facility] - [address] [place], [place] [address] [facility] [place] [address] [facility] [address] (ABNORMAL) Basic Metabolic Panel (04/25/2021 4:40 AM PHARMACY RETAIL SUPPORT SPECIALIST) P athologist Signature Potassium, S 4.2 3.6 - 5.2 04/25/2021 DTL mmol/L 5:53 AM PHARMACY RETAIL SUPPORT SPECIALIST Sodium, S 147 (H) 135 - 145 04/25/2021 DTL mmol/L 5:53 AM PHARMACY RETAIL SUPPORT SPECIALIST Chloride, S 111 (H) 98 - 107 04/25/2021 DTL mmol/L 5:53 AM PHARMACY RETAIL SUPPORT SPECIALIST Bicarbonate, S 27 22 - 29 04/25/2021 DTL mmol/L 5:53 AM PHARMACY RETAIL SUPPORT SPECIALIST Anion Gap 9 7 - 15 04/25/2021 DTL 5:53 AM PHARMACY RETAIL SUPPORT SPECIALIST BUN (Blood Urea 35 (H) 6 - 21 04/25/2021 DTL Nitrogen), S mg/dL 5:53 AM PHARMACY RETAIL SUPPORT SPECIALIST Creatinine 0.68 0.59 - 04/25/2021 DTL 1.04 mg/dL 5:53 AM PHARMACY RETAIL SUPPORT SPECIALIST eGFR-Non >90 >=60 04/25/2021 DTL Black/ mL/min/BSA 5:53 AM PHARMACY RETAIL SUPPORT SPECIALIST Eritrean Comment: ----ADDITIONAL INFORMATION---- Estimated GFR calculated using the 2009 CKD_EPI creatinine equation. eGFR-Black/ >90 >=60 mL/min/BSA 2020 5:53 AM PHARMACY RETAIL SUPPORT SPECIALIST DTL Comment: ----ADDITIONAL INFORMATION---- Estimated GFR calculated using the 2009 CKD_EPI creatinine equation. Calcium, Total, S 8.8 8.8 - 10.2 mg/dL 04/25/2021 5:53 AM PHARMACY RETAIL SUPPORT SPECIALIST DTL Glucose, S 133 70 - 140 mg/dL 04/25/2021 5:53 AM PHARMACY RETAIL SUPPORT SPECIALIST D TL Specimen Anatomical Collection Method Collection Time Receive d Time (Source) Location / / Volume Laterality Blood (Blood, 04/25/2021 4:40 AM 04/25/20 5:30 Venous) PHARMACY RETAIL SUPPORT SPECIALIST AM PHARMACY RETAIL SUPPORT SPECIALIST Alexis Peraza P.A.-C. LAB BLOOD ADD-ON Performing Organization Address City/[facility] Phon e Number [facility] - [address] [place]TL [place], [place] [address] [place] [address] Thromboelastograph, Kaolin, Blood (04/25/2021 4:38 AM PHARMACY RETAIL SUPPORT SPECIALIST) athologist Signature R, Kaolin, TEG 5.5 4.0 - 9.0 04/25/2021 STMA min 5:42 AM PHARMACY RETAIL SUPPORT SPECIALIST K, Kaolin, TEG 1.5 0.9 - 1.7 04/25/2021 [facility] min 5:42 AM PHARMACY RETAIL SUPPORT SPECIALIST Angle, Kaolin, 72.5 66.2 - 80.3 04/25/2021 [facility] TEG degrees 5:42 AM PHARMACY RETAIL SUPPORT SPECIALIST MA, Kaolin, 73.9 55.2 - 77.0 04/25/2021 [facility]MA TEG mm 5:42 AM PHARMACY RETAIL SUPPORT SPECIALIST Ly30, Kaolin, 1.3 0.0 - 4.8 % 04/25/2021 [facility] TEG 5:42 AM PHARMACY RETAIL SUPPORT SPECIALIST Specimen Anatomical Collection Method Collection Time Receive d Time (Source) Location / / Volume Laterality Blood (Blood, 04/25/2021 4:38 AM 04/25/20 4:38 Venous) PHARMACY RETAIL SUPPORT SPECIALIST AM PHARMACY RETAIL SUPPORT SPECIALIST Haley Canales M.D. LAB BLOOD NON ADD-ON Performing Organization Address City/[facility] Phon e Number [facility] - [address] [place] [address] DX Chest Portable 1 View (04/25/2021 4:11 AM PHARMACY RETAIL SUPPORT SPECIALIST) Anatomical Region Laterality Modality Chest, Thoracic RST LOS, Thoracic ARZ LOS, Thoracic N/A Digital Radiography FLA LOS Specimen (Source) Anatomical Collection Method Collection Time Re ceived Time Location / / Volume Laterality 04/25/2021 4:13 AM PHARMACY RETAIL SUPPORT SPECIALIST Impressions 04/25/2021 9:31 AM PHARMACY RETAIL SUPPORT SPECIALIST Since yesterday, enteric tube has been repositioned with tip and sidehole below the diaphragm. Postoperat armida changes left lung. Low lung volumes with bilateral patchy airspace opacities . No pneumothorax. Prominent fat pad cardiac apex Narrative 04/25/2021 9:31 AM PHARMACY RETAIL SUPPORT SPECIALIST EXAM: ??DX CHEST PORTABLE 1 VIEW Procedure [...] apex Alexis Peraza P.A.-C. IMG DIAGNOSTIC IMAGING [place] OCEDURES Glucose, POCT (04/25/2021 3:34 AM PHARMACY RETAIL SUPPORT SPECIALIST) athologist Signature Glucose, POCT, 129 70 - 140 04/25/2021 PCLX B mg/dL 3:35 AM PHARMACY RETAIL SUPPORT SPECIALIST Last Intake NPO 04/25/2021 PCLX 3:35 AM PHARMACY RETAIL SUPPORT SPECIALIST Specimen Anatomical Collection Method Collection Time Receive d Time (Source) Location / / Volume Laterality Blood 04/25/2021 3:34 AM 3:36 PHARMACY RETAIL SUPPORT SPECIALIST AM PHARMACY RETAIL SUPPORT SPECIALIST Unknown Provider LAB POCT ORDERABLES-MANUAL Performing Organization Address City/State/ZIP Code Phon e Number POC [facility] [address] [place] [address] PCLX [facility] [place] [address] [place] [facility] [address] Glucose, POCT (04/25/2021 12:06 AM PHARMACY RETAIL SUPPORT SPECIALIST) athologist Signature Glucose, POCT, 118 70 - 140 04/25/2021 PCLX B mg/dL 12:08 AM PHARMACY RETAIL SUPPORT SPECIALIST Last Intake NPO 04/25/2021 PCLX 12:08 AM PHARMACY RETAIL SUPPORT SPECIALIST Specimen Anatomical Collection Method Collection Time Receive d Time (Source) Location / / Volume Laterality Blood 04/25/2021 12:06 04/25/2021 AM PHARMACY RETAIL SUPPORT SPECIALIST 12:08 AM PHARMACY RETAIL SUPPORT SPECIALIST Unknown Provider LAB POCT ORDERABLES-MANUAL Performing Organization Address City/State/ZIP Code Phon e Number POC [facility] SERVICES [address] [place] [address] PCLX [facility] [place] [address] [place] [facility] [address] DX Abdomen Portable Anterior Posterior 1 View (2021 11:05 PM PHARMACY RETAIL SUPPORT SPECIALIST) Anatomical Region Laterality Modality Abdomen, Abdominal RST LOS, Abdominal ARZ LOS, N/A Digital Radiography Abdominal FLA LOS Specimen (Source) Anatomical Collection Method Collection Time Re ceived Time Location / / Volume Laterality 04/25/2021 12:16 AM PHARMACY RETAIL SUPPORT SPECIALIST Impressions 04/25/2021 9:06 AM PHARMACY RETAIL SUPPORT SPECIALIST Since earlier today at 1411 hours, Gastrografin is located within stomach and the dilated small bowel in t he abdomen. No Gastrografin in the colon. Enteric tube with sidehole just d istal to the gastroesophageal junction. Narrative 04/25/2021 9:06 AM PHARMACY RETAIL SUPPORT SPECIALIST EXAM: ??DX ABDOMEN PORTABLE ANTERIOR POSTERIOR 1 [...] junction. Alexis Peraza P.A.-C. IMG DIAGNOSTIC IMAGING [place] OCEDURES (ABNORMAL) Prothrombin Time (PT) (2021 6:57 PM PHARMACY RETAIL SUPPORT SPECIALIST) [facility] gist Method Time Signature Prothrombin 13.5 (H) 9.4 - 12.5 2021 [facility]MA Time, P sec 7:17 PM PHARMACY RETAIL SUPPORT SPECIALIST INR 1.2 0.9 - 1.1 2021 STMA 7:17 PM PHARMACY RETAIL SUPPORT SPECIALIST Comment: ----ADDITIONAL INFORMATION---- Standard intensity warfarin therapeutic range: 2.0 to 3.0 ?? High intensity warfarin therapeutic rang e: 2.5 to 3.5 Specimen Anatomical Collection Method Collection Time Receive d Time (Source) Location / / Volume Laterality Blood (Blood, 2021 6:57 PM 04/24/20 7:01 Venous) PHARMACY RETAIL SUPPORT SPECIALIST PM PHARMACY RETAIL SUPPORT SPECIALIST Alexis Peraza P.A.-C. LAB BLOOD ADD-ON Performing Organization Address City/[facility]/ZIP [facility] Phon e Number [facility] - [address] [place], [place] [address] [address] [facility] [place] [address] [facility] 200 [facility] Lactate (2021 6:57 PM PHARMACY RETAIL SUPPORT SPECIALIST) athologist Signature Lactate, P 1.4 0.5 - 2.2 2021 STMA mmol/L 7:13 PM PHARMACY RETAIL SUPPORT SPECIALIST Specimen Anatomical Collection Method Collection Time Receive d Time (Source) Location / / Volume Laterality Blood (Blood, 2021 6:57 PM 04/24/20 7:01 Venous) PHARMACY RETAIL SUPPORT SPECIALIST PM PHARMACY RETAIL SUPPORT SPECIALIST Alexis Peraza P.A.-C. LAB BLOOD NON ADD-ON Performing Organization Address City/State/[facility] Phon e Number [facility] - [address] [place], [place] [address] [place] [place] [address] [facility] CBC without Differential (2021 6:57 PM PHARMACY RETAIL SUPPORT SPECIALIST) athologist Signature Hemoglobin 11.7 11.6 - 2021 STMA 15.0 g/dL 7:04 PM PHARMACY RETAIL SUPPORT SPECIALIST Hematocrit 36.7 35.5 - 2021 STMA 44.9 % 7:04 PM PHARMACY RETAIL SUPPORT SPECIALIST Erythrocytes 4.05 3.92 - 2021 STMA 5.13 7:04 PM PHARMACY RETAIL SUPPORT SPECIALIST x10(12)/L MCV 90.6 78.2 - 2021 STMA 97.9 fL 7:04 PM PHARMACY RETAIL SUPPORT SPECIALIST RBC Distrib Width 14.1 12.2 - 2021 STMA 16.1 % 7:04 PM PHARMACY RETAIL SUPPORT SPECIALIST Platelet Count 185 157 - 371 2021 STMA x10(9)/L 7:04 PM PHARMACY RETAIL SUPPORT SPECIALIST Leukocytes 5.6 3.4 - 9.6 2021 STMA x10(9)/L 7:56 PM PHARMACY RETAIL SUPPORT SPECIALIST Comment: Results confirmed by smear. Specimen Anatomical Collection Method Collection Time Receive d Time (Source) Location / / Volume Laterality Blood (Blood, 2021 6:57 PM 04/24/20 7:01 Venous) PHARMACY RETAIL SUPPORT SPECIALIST PM PHARMACY RETAIL SUPPORT SPECIALIST Alexis Peraza P.A.-C. LAB BLOOD ADD-ON Performing Organization Address City/State/ZIP Code Phon e Number [facility] - [address] [place], [place] [address] [address] [facility] [place] [address] [facility] [address] (ABNORMAL) Basic Metabolic Panel (2021 6:57 PM PHARMACY RETAIL SUPPORT SPECIALIST) athologist Signature Potassium, P 3.7 3.6 - 5.2 2021 STMA mmol/L 7:17 PM PHARMACY RETAIL SUPPORT SPECIALIST Sodium, P 144 135 - 145 2021 STMA mmol/L 7:17 PM PHARMACY RETAIL SUPPORT SPECIALIST Chloride, P 107 98 - 107 2021 STMA mmol/L 7:17 PM PHARMACY RETAIL SUPPORT SPECIALIST Bicarbonate, P 27 22 - 29 2021 STMA mmol/L 7:17 PM PHARMACY RETAIL SUPPORT SPECIALIST Anion Gap, P 10 7 - 15 2021 STMA 7:17 PM PHARMACY RETAIL SUPPORT SPECIALIST BUN (Blood Urea 34 (H) 6 - 21 2021 STMA Nitrogen), P mg/dL 7:17 PM PHARMACY RETAIL SUPPORT SPECIALIST Creatinine 0.65 0.59 - 2021 STMA 1.04 mg/dL 7:17 PM PHARMACY RETAIL SUPPORT SPECIALIST eGFR-Black/Afri >90 >=60 2021 STMA can Eritrean mL/min/BSA 7:17 PM PHARMACY RETAIL SUPPORT SPECIALIST Comment: ----ADDITIONAL INFORMATION---- Estimated GFR calculated using the 2009 CKD_EPI creatinine equation. eGFR Non-Black/ >90 >=60 mL/min/BSA 2021 7:17 PM PHARMACY RETAIL SUPPORT SPECIALIST STMA Comment: ----ADDITIONAL INFORMATION---- Estimated GFR calculated using the 2009 CKD_EPI creatinine equation. Calcium, Total, P 8.9 8.8 - 10.2 mg/dL 2021 7:17 PM PHARMACY RETAIL SUPPORT SPECIALIST STMA Glucose, P 146 (H) 70 - 140 mg/dL 2021 7:17 PM PHARMACY RETAIL SUPPORT SPECIALIST S TMA Specimen Anatomical Collection Method Collection Time Receive d Time (Source) Location / / Volume Laterality Blood (Blood, 2021 6:57 PM 04/24/20 7:01 Venous) PHARMACY RETAIL SUPPORT SPECIALIST PM PHARMACY RETAIL SUPPORT SPECIALIST Alexis Peraza P.A.-C. LAB BLOOD ADD-ON Performing Organization Address City/[facility] Phon e Number [facility] - [address] [place], [place] [address] [address] [facility] [place] [address] [facility] [address] Clozapine (Clozaril), Level (2021 2:55 PM PHARMACY RETAIL SUPPORT SPECIALIST) [facility] Method Time Signature Clozapine 537 350 - 600 ng/mL 04/25/2021 [facility] 6:15 PM PHARMACY RETAIL SUPPORT SPECIALIST Norclozapine 237 Not well 04/25/2021 [facility] established 6:15 PM PHARMACY RETAIL SUPPORT SPECIALIST ng/mL Clozapine+Norclo 774 Not well 04/25/2021 [facility] zapine Total established 6:15 PM PHARMACY RETAIL SUPPORT SPECIALIST ng/mL Comment: ----ADDITIONAL INFORMATION---- This test was developed and its performa nce characteristics determined by [facility] in a manner consistent with CLIA requirements. This test has not been cleared or approved by the U.S. Jeff d and Drug Administration. Specimen Anatomical Collection Method Collection Time Receive d Time (Source) Location / / Volume Laterality Blood (Blood, 2021 2:55 PM 04/25/20 Venous) PHARMACY RETAIL SUPPORT SPECIALIST 12:48 PM PHARMACY RETAIL SUPPORT SPECIALIST Sonido Woodall P.A.-C. LAB BLOOD NON ADD-ON Performing Organization Address City/State/[facility] Code Phon e Number [facility] [address] [place], [place] [address] SUPPORT CENTER [facility] [place] [address] Laboratory Medicine and Pathology [address] ART Troponin T, 2H/6H, 5th Gen (2021 2:55 PM PHARMACY RETAIL SUPPORT SPECIALIST) [facility] Method Time Signature Troponin T, 2 10 <=10 ng/L 2021 STMA hr, 5th gen 3:28 PM PHARMACY RETAIL SUPPORT SPECIALIST 2H Delta -1 ng/L 2021 STMA 3:28 PM PHARMACY RETAIL SUPPORT SPECIALIST 2H Delta Not Changing 2021 STMA Interp 3:28 PM PHARMACY RETAIL SUPPORT SPECIALIST Troponin T, 6 CANCELED ng/L 2021 STMA hr, 5th gen 3:28 PM PHARMACY RETAIL SUPPORT SPECIALIST Comment: Result canceled by the saroj cormier Specimen Anatomical Collection Method Collection Time Receive d Time (Source) Location / / Volume Laterality Blood (Blood, 2021 2:55 PM 04/24/20 3:00 Venous) PHARMACY RETAIL SUPPORT SPECIALIST PM PHARMACY RETAIL SUPPORT SPECIALIST Narrative [facility] - 2021 3:28 PM PHARMACY RETAIL SUPPORT SPECIALIST Specimen Information: Specimen ID: [id number] Specimen Type: Blood Specimen Collection Start Date: 021 ??2:55 PM Specimen Received Date: 2021 ??3: 00 PM Specimen ID: [id number] Specimen Type: Blood Specimen Collection Start Date: 021 ??3:28 PM Specimen Received Date: 2021 ??3: 28 PM Alexis Peraza P.A.-C. LAB BLOOD TROPONIN Performing Organization Address City/State/ZIP Code Phon e Number [address] [place] [address] [facility] [address] [facility] SARS Coronavirus 2, RNA, Rapid POC, V Asymptomatic (2021 2:29 PM PHARMACY RETAIL SUPPORT SPECIALIST) [facility] Method Time Signature SARS Undetected Undetected 2021 DTLR Coronavirus-2 2:49 PM PHARMACY RETAIL SUPPORT SPECIALIST , RNA, Rapid POC, V Comment: Negative for SARS-CoV-2. The Cue COVID-19 test is a molecular erin t for SARS-CoV-2, the virus that causes COVID- 19. A Negative result means that the Cue COV ID-19 test did not detect SARS-CoV-2 virus in your sample. Cue COVID-19 test uses the [employer] System. This test has received Emergency Use Authorization (EUA) by the U.S. Food and Drug Administration (FDA) and is used per man ufacturer instructions. Performance characteristic s were verified by [facility] in a manner consistent with CLIA requirements. Fact sheets for this Emerg ency Use Authorization (EUA) can be found at the following links: Providers: [email or web address]/prov iders.pdf Patients: [email or web address]/dinora ents.pdf SARS Coronavirus 2, Source Nasopharynx DEFAULT 2021 2:49 PM PHARMACY RETAIL SUPPORT SPECIALIST DTLR Specimen Anatomical Collection Method Collection Time Receive d Time (Source) Location / / Volume Laterality Varies 2021 2:29 PM 2:29 (Nasopharynx) PHARMACY RETAIL SUPPORT SPECIALIST PM PHARMACY RETAIL SUPPORT SPECIALIST Alexis Peraza P.A.-C. LAB MICROBIOLOGY - GENERA L ORDERABLES Performing Organization Address City/State/ZIP Code Phon e Number PERFORMING LABS, REF [place] [address] INTERFACE Ref Interface [address] DTLR Performing Labs, [place] [address] DX Abdomen Portable Anterior Posterior 1 View (2021 2:17 PM PHARMACY RETAIL SUPPORT SPECIALIST) Anatomical Region Laterality Modality Abdomen, Abdominal RST LOS, Abdominal ARZ LOS, N/A Digital Radiography Abdominal FLA LOS Specimen (Source) Anatomical Collection Method Collection Time Re ceived Time Location / / Volume Laterality 2021 2:22 PM PHARMACY RETAIL SUPPORT SPECIALIST Impressions 2021 2:23 PM PHARMACY RETAIL SUPPORT SPECIALIST Gastric tube advanced with the tip and side-port now in the proximal stomach. Gas-filled, dilated lo ops of small bowel. Narrative 2021 2:23 PM PHARMACY RETAIL SUPPORT SPECIALIST EXAM: ??DX ABDOMEN PORTABLE ANTERIOR POSTERIOR 1 VIEW Procedure Note Willie Kennedy M.D. - 2021Formatt ing of this note might be different from the original. EXAM: DX ABDOMEN PORTABLE ANTERIOR POSTE RIOR 1 VIEW IMPRESSION: Gastric tube advanced with the tip and s sybil-port now in the proximal stomach. Gas-filled, dilated lo ops of small bowel. Alexis Peraza P.A.-C. IMG DIAGNOSTIC IMAGING [place] OCEDURES Patient Status (2021 1:00 PM PHARMACY RETAIL SUPPORT SPECIALIST) P athologist Signature O2 Flow 3.0L L/min 2021 STMA 1:08 PM PHARMACY RETAIL SUPPORT SPECIALIST Device NC 2021 STMA 1:08 PM PHARMACY RETAIL SUPPORT SPECIALIST Spont. 27 2021 STMA breaths/min 1:08 PM PHARMACY RETAIL SUPPORT SPECIALIST Specimen Anatomical Collection Method Collection Time Receive d Time (Source) Location / / Volume Laterality Blood 2021 1:00 PM 1:08 PHARMACY RETAIL SUPPORT SPECIALIST PM PHARMACY RETAIL SUPPORT SPECIALIST Alexis Peraza P.A.-C. LAB BLOOD NON ADD-ON Performing Organization Address City/[facility] Phon e Number [facility] - [address] Calcium, Ionized (2021 1:00 PM PHARMACY RETAIL SUPPORT SPECIALIST) athologist Signature Calcium, 5.00 4.65 - 5.30 2021 STMA Ionized, B mg/dL 1:11 PM PHARMACY RETAIL SUPPORT SPECIALIST Specimen Anatomical Collection Method Collection Time Receive d Time (Source) Location / / Volume Laterality Blood (Blood, 2021 1:00 PM 04/24/20 1:08 Venous) PHARMACY RETAIL SUPPORT SPECIALIST PM PHARMACY RETAIL SUPPORT SPECIALIST Alexis Peraza P.A.-C. LAB BLOOD NON ADD-ON Performing Organization Address City/[facility] Phon e Number [facility] - [address] [place], [place] [address] [address] (ABNORMAL) Blood Gas with Coox, Arterial (2021 1:00 PM PHARMACY RETAIL SUPPORT SPECIALIST) P athologist Signature pO2 72 (L) 83 - 108 2021 STMA mm Hg 1:11 PM PHARMACY RETAIL SUPPORT SPECIALIST pCO2 40 32 - 45 mm 2021 STMA Hg 1:11 PM PHARMACY RETAIL SUPPORT SPECIALIST pH 7.40 7.35 - 2021 STMA 7.45 pH 1:11 PM PHARMACY RETAIL SUPPORT SPECIALIST Base Excess 1 -2 - 3 2021 STMA mmol/L 1:11 PM PHARMACY RETAIL SUPPORT SPECIALIST HCO3 25 22 - 26 2021 STMA mmol/L 1:11 PM PHARMACY RETAIL SUPPORT SPECIALIST Hemoglobin, B 12.6 11.6 - 2021 STMA 15.0 g/dL 1:11 PM PHARMACY RETAIL SUPPORT SPECIALIST O2Hb 92.3 (L) 94.0 - 2021 STMA 98.0 % 1:11 PM PHARMACY RETAIL SUPPORT SPECIALIST COHb 1.1 <3.0 % 2021 STMA 1:11 PM PHARMACY RETAIL SUPPORT SPECIALIST MetHb 1.1 <1.5 % 2021 STMA 1:11 PM PHARMACY RETAIL SUPPORT SPECIALIST CtO2 16.4 (L) 18.0 - 2021 STMA 21.0 vol % 1:11 PM PHARMACY RETAIL SUPPORT SPECIALIST Arterial R-Radial 2021 [facility]11 PM PHARMACY RETAIL SUPPORT SPECIALIST Specimen Anatomical Collection Method Collection Time Receive d Time (Source) Location / / Volume Laterality Blood (Blood, 2021 1:00 PM 04/24/20 1:08 Arterial) PHARMACY RETAIL SUPPORT SPECIALIST PM PHARMACY RETAIL SUPPORT SPECIALIST Alexis Peraza P.A.-C. LAB BLOOD NON ADD-ON Performing Organization Address City/State/[facility] Code Phon e Number [facility] - [address] [place] [address] [address] [place] [address] [facility] [address] [facility] (ABNORMAL) Hepatic Function Panel (2021 12:57 PM PHARMACY RETAIL SUPPORT SPECIALIST) [facility] Method Time Signature Bilirubin, Total, S 0.5 <=1.2 2021 DTL mg/dL 2:25 PM PHARMACY RETAIL SUPPORT SPECIALIST Bilirubin, Direct, S <0.2 0.0 - 0.3 2021 DTL mg/dL 2:25 PM PHARMACY RETAIL SUPPORT SPECIALIST Aspartate 18 8 - 43 2021 DTL Aminotransferase U/L 2:25 PM PHARMACY RETAIL SUPPORT SPECIALIST (AST), S Alanine 21 7 - 45 2021 DTL Aminotransferase U/L 2:25 PM PHARMACY RETAIL SUPPORT SPECIALIST (ALT), S Alkaline 123 (H) 35 - 104 2021 DTL Phosphatase, S U/L 2:25 PM PHARMACY RETAIL SUPPORT SPECIALIST Albumin, S 4.2 3.5 - 5.0 2021 DTL g/dL 2:25 PM PHARMACY RETAIL SUPPORT SPECIALIST Protein, Total, S 6.7 6.3 - 7.9 2021 DTL g/dL 2:25 PM PHARMACY RETAIL SUPPORT SPECIALIST Specimen Anatomical Collection Method Collection Time Receive d Time (Source) Location / / Volume Laterality Blood (Blood, 2021 12:57 2021 2:05 Venous) PM PHARMACY RETAIL SUPPORT SPECIALIST PM PHARMACY RETAIL SUPPORT SPECIALIST Alexis Peraza P.A.-C. LAB BLOOD ADD-ON Performing Organization Address City/[facility]/ZIP Code Phon e Number [facility] - [address] [place], [place] [address] [place] [address] Laboratories[address] Type and Screen (with reflex Antibody ID) (2021 12:57 PM PHARMACY RETAIL SUPPORT SPECIALIST) Patholo gist Method Time Signature ABORh O Pos Not 2021 STRM applicable 1:33 PM PHARMACY RETAIL SUPPORT SPECIALIST Antibody Negative Negative 2021 STRM Screen 1:43 PM PHARMACY RETAIL SUPPORT SPECIALIST Type & Screen 04/27/2021 2021 STRM Expiration 23:59 1:33 PM PHARMACY RETAIL SUPPORT SPECIALIST Testing Alberto DEFAULT 2021 STRM Location 1:07 PM PHARMACY RETAIL SUPPORT SPECIALIST Specimen Anatomical Collection Method Collection Time Receive d Time (Source) Location / / Volume Laterality Blood (Blood, 2021 12:57 2021 1:07 Venous) PM PHARMACY RETAIL SUPPORT SPECIALIST PM PHARMACY RETAIL SUPPORT SPECIALIST lAexis Peraza P.A.-C. LAB BLOOD BANK TEST ORDER MARIA E Performing Organization Address City/[facility] Phon e Number [facility] - [address] [place] [address] CBC without Differential (2021 12:57 PM PHARMACY RETAIL SUPPORT SPECIALIST) P athologist Signature Hemoglobin 12.8 11.6 - 2021 DTL 15.0 g/dL 2:11 PM PHARMACY RETAIL SUPPORT SPECIALIST Hematocrit 41.2 35.5 - 2021 DTL 44.9 % 2:11 PM PHARMACY RETAIL SUPPORT SPECIALIST Erythrocytes 4.54 3.92 - 2021 DTL 5.13 2:11 PM PHARMACY RETAIL SUPPORT SPECIALIST x10(12)/L MCV 90.7 78.2 - 2021 DTL 97.9 fL 2:11 PM PHARMACY RETAIL SUPPORT SPECIALIST RBC Distrib Width 14.2 12.2 - 2021 DTL 16.1 % 2:11 PM PHARMACY RETAIL SUPPORT SPECIALIST Platelet Count 199 157 - 371 2021 DTL x10(9)/L 2:11 PM PHARMACY RETAIL SUPPORT SPECIALIST Leukocytes 5.9 3.4 - 9.6 2021 DTL x10(9)/L 2:11 PM PHARMACY RETAIL SUPPORT SPECIALIST Specimen Anatomical Collection Method Collection Time Receive d Time (Source) Location / / Volume Laterality Blood (Blood, 2021 12:57 2021 2:01 Venous) PM PHARMACY RETAIL SUPPORT SPECIALIST PM PHARMACY RETAIL SUPPORT SPECIALIST Alexis Peraza P.A.-C. LAB BLOOD ADD-ON Performing Organization Address City/State/ZIP Code Phon e Number [facility] - [address] [place], [place] [address] [place] [place] [address] Laboratories-[facility] [address] (ABNORMAL) Basic Metabolic Panel (2021 12:57 PM PHARMACY RETAIL SUPPORT SPECIALIST) P athologist Signature Potassium, S 4.1 3.6 - 5.2 2021 DTL mmol/L 2:25 PM PHARMACY RETAIL SUPPORT SPECIALIST Sodium, S 148 (H) 135 - 145 2021 DTL mmol/L 2:25 PM PHARMACY RETAIL SUPPORT SPECIALIST Chloride, S 112 (H) 98 - 107 2021 DTL mmol/L 2:25 PM PHARMACY RETAIL SUPPORT SPECIALIST Bicarbonate, S 23 22 - 29 2021 DTL mmol/L 2:25 PM PHARMACY RETAIL SUPPORT SPECIALIST Anion Gap 13 7 - 15 2021 DTL 2:25 PM PHARMACY RETAIL SUPPORT SPECIALIST BUN (Blood Urea 35 (H) 6 - 21 2021 DTL Nitrogen), S mg/dL 2:25 PM PHARMACY RETAIL SUPPORT SPECIALIST Creatinine 0.95 0.59 - 2021 DTL 1.04 mg/dL 2:25 PM PHARMACY RETAIL SUPPORT SPECIALIST eGFR-Non 63 >=60 2021 DTL Black/ mL/min/BSA 2:25 PM PHARMACY RETAIL SUPPORT SPECIALIST Eritrean Comment: ----ADDITIONAL INFORMATION---- Estimated GFR calculated using the 2009 CKD_EPI creatinine equation. eGFR-Black/ 72 >=60 mL/min/BSA 2020 2:25 PM PHARMACY RETAIL SUPPORT SPECIALIST DTL Comment: ----ADDITIONAL INFORMATION---- Estimated GFR calculated using the 2009 CKD_EPI creatinine equation. Calcium, Total, S 9.2 8.8 - 10.2 mg/dL 2021 2:25 PM PHARMACY RETAIL SUPPORT SPECIALIST DTL Glucose, S 145 (H) 70 - 140 mg/dL 2021 2:25 PM PHARMACY RETAIL SUPPORT SPECIALIST D TL Specimen Anatomical Collection Method Collection Time Receive d Time (Source) Location / / Volume Laterality Blood (Blood, 2021 12:57 2021 2:05 Venous) PM PHARMACY RETAIL SUPPORT SPECIALIST PM PHARMACY RETAIL SUPPORT SPECIALIST Alexis Peraza P.A.-C. LAB BLOOD ADD-ON Performing Organization Address City/State/[facility] Code Phon e Number [facility] - [address] [place], [place] [address] [facility] [place] [address] [facility] (ABNORMAL) Troponin T, Baseline, 5th gen (2021 12:57 PM PHARMACY RETAIL SUPPORT SPECIALIST) athologist Signature Troponin T, 11 (H) <=10 ng/L 2021 STMA Baseline, 5th 1:28 PM PHARMACY RETAIL SUPPORT SPECIALIST gen Specimen Anatomical Collection Method Collection Time Receive d Time (Source) Location / / Volume Laterality Blood (Blood, 2021 12:57 2021 1:08 Venous) PM PHARMACY RETAIL SUPPORT SPECIALIST PM PHARMACY RETAIL SUPPORT SPECIALIST Alexis Peraza P.A.-C. LAB BLOOD TROPONIN Performing Organization Address City/[facility] Code Phon e Number [facility] - [address] [place] [id number] [place] [address] [address] [facility] (ABNORMAL) Lactate (2021 12:57 PM PHARMACY RETAIL SUPPORT SPECIALIST) athologist Signature Lactate, P 2.4 (H) 0.5 - 2.2 2021 STMA mmol/L 1:25 PM PHARMACY RETAIL SUPPORT SPECIALIST Specimen Anatomical Collection Method Collection Time Receive d Time (Source) Location / / Volume Laterality Blood (Blood, 2021 12:57 2021 1:08 Venous) PM PHARMACY RETAIL SUPPORT SPECIALIST PM PHARMACY RETAIL SUPPORT SPECIALIST Alexis Peraza P.A.-C. LAB BLOOD NON ADD-ON Performing Organization Address City/State/ZIP Code Phon e Number [facility] - [address] [place], [place] [address] [facility] [address] [place] [address] (ABNORMAL) Thromboelastograph, Kaolin, Blood (2021 12:55 PM PHARMACY RETAIL SUPPORT SPECIALIST) Patholo gist Method Time Signature R, Kaolin, TEG 11.5 (H) 4.0 - 9.0 2021 STMA min 2:43 PM PHARMACY RETAIL SUPPORT SPECIALIST K, Kaolin, TEG 2.0 (H) 0.9 - 1.7 2021 STMA min 2:43 PM PHARMACY RETAIL SUPPORT SPECIALIST Angle, Kaolin, 62.7 (L) 66.2 - 80.3 2021 STMA TEG degrees 2:43 PM PHARMACY RETAIL SUPPORT SPECIALIST MA, Kaolin, 74.1 55.2 - 77.0 2021 STMA TEG mm 2:43 PM PHARMACY RETAIL SUPPORT SPECIALIST Ly30, Kaolin, 1.1 0.0 - 4.8 % 2021 STMA TEG 2:43 PM PHARMACY RETAIL SUPPORT SPECIALIST Specimen Anatomical Collection Method Collection Time Receive d Time (Source) Location / / Volume Laterality Blood (Blood, 2021 12:55 2021 Venous) PM PHARMACY RETAIL SUPPORT SPECIALIST 12:55 PM PHARMACY RETAIL SUPPORT SPECIALIST Alexis Peraza P.A.-C. LAB BLOOD NON ADD-ON Performing Organization Address City/State/ZIP Code Phon e Number [facility] - [address] [address] [place] [address] Laboratories-[address] (ABNORMAL) CBC with Differential, Blood (2021 12:41 PM PHARMACY RETAIL SUPPORT SPECIALIST) P athologist Signature Hemoglobin 12.7 11.6 - 2021 DTL 15.0 g/dL 3:23 PM PHARMACY RETAIL SUPPORT SPECIALIST Hematocrit 40.6 35.5 - 2021 DTL 44.9 % 3:23 PM PHARMACY RETAIL SUPPORT SPECIALIST Erythrocytes 4.45 3.92 - 2021 DTL 5.13 3:23 PM PHARMACY RETAIL SUPPORT SPECIALIST x10(12)/L MCV 91.2 78.2 - 2021 DTL 97.9 fL 3:23 PM PHARMACY RETAIL SUPPORT SPECIALIST RBC Distrib Width 14.2 12.2 - 2021 DTL 16.1 % 3:23 PM PHARMACY RETAIL SUPPORT SPECIALIST Platelet Count 196 157 - 371 2021 DTL x10(9)/L 3:23 PM PHARMACY RETAIL SUPPORT SPECIALIST Leukocytes 5.8 3.4 - 9.6 2021 DTL x10(9)/L 4:36 PM PHARMACY RETAIL SUPPORT SPECIALIST Comment: Results confirmed by smear. Neutrophils 4.94 1.56 - 6.45 x10(9)/L 2021 4:36 P M PHARMACY RETAIL SUPPORT SPECIALIST DTL Lymphocytes 0.39 (L) 0.95 - 3.07 x10(9)/L 2021 4:36 P M PHARMACY RETAIL SUPPORT SPECIALIST DTL Monocytes 0.43 0.26 - 0.81 x10(9)/L 2021 4:36 PM PHARMACY RETAIL SUPPORT SPECIALIST DTL Eosinophils <0.03 0.03 - 0.48 x10(9)/L 2021 4:36 P M PHARMACY RETAIL SUPPORT SPECIALIST DTL Basophils <0.03 0.01 - 0.08 x10(9)/L 2021 4:36 PM PHARMACY RETAIL SUPPORT SPECIALIST DTL Specimen Anatomical Collection Method Collection Time Receive d Time (Source) Location / / Volume Laterality Blood (Blood, 2021 12:41 2021 3:13 Venous) PM PHARMACY RETAIL SUPPORT SPECIALIST PM PHARMACY RETAIL SUPPORT SPECIALIST Jeanie Flores M.D. LAB BLOOD ADD-ON Performing Organization Address City/State/ZIP Code Phon e Number [facility] - [address] [place], [place] [address] [facility] [place] [address] Laboratories-[facility] [address] DX Chest Portable 1 View (2021 12:34 PM PHARMACY RETAIL SUPPORT SPECIALIST) Anatomical Region Laterality Modality Chest, Thoracic RST LOS, Thoracic ARZ LOS, Thoracic N/A Digital Radiography FLA LOS Specimen (Source) Anatomical Collection Method Collection Time Re ceived Time Location / / Volume Laterality 2021 12:49 PM PHARMACY RETAIL SUPPORT SPECIALIST Impressions 2021 12:52 PM PHARMACY RETAIL SUPPORT SPECIALIST Since 04/23/2021, increased airspace opacities in the right upper lobe suspicious for pneumonitis. Other b ilateral airspace opacities/atelectasis are not significantly changed. Enteric t ube tip in the stomach with side port just above the GE junction; advancement recommended. Narrative 2021 12:52 PM PHARMACY RETAIL SUPPORT SPECIALIST EXAM: ??DX CHEST PORTABLE 1 VIEW Procedure [...] recommended. Alexis Peraza P.A.-C. IMG DIAGNOSTIC IMAGING [place] OCEDURES DX Abdomen Portable Anterior Posterior 1 View (2021 12:33 PM PHARMACY RETAIL SUPPORT SPECIALIST) Anatomical Region Laterality Modality Abdomen, Abdominal RST LOS, Abdominal ARZ LOS, N/A Digital Radiography Abdominal FLA LOS Specimen (Source) Anatomical Collection Method Collection Time Re ceived Time Location / / Volume Laterality 2021 12:53 PM PHARMACY RETAIL SUPPORT SPECIALIST Impressions 2021 12:55 PM PHARMACY RETAIL SUPPORT SPECIALIST Gastric tube tip in the stomach with side port just above the GE junction; advancement recommended. Gas-f illed, dilated loops of small bowel predominantly in the central abdomen anne suring up to 5.4 cm, compatible with small bowel obstruction though the bowel gas pattern has improved compared to CT football scout image on 04/23/2021. Excreted IV c ontrast from CT yesterday in the bladder. Narrative 2021 12:55 PM PHARMACY RETAIL SUPPORT SPECIALIST EXAM: ??DX ABDOMEN PORTABLE ANTERIOR POSTERIOR 1 [...] gas pattern has improved compared to CT football scout image on 04/23/2021. Excreted IV c ontrast from CT yesterday in the bladder. Alexis Peraza P.A.-C. IMSandra DIAGNOSTIC IMAGING [place] OCEDURES Interpretation of Outside CT Abdomen and or Pelvis (2021 12:25 PM PHARMACY RETAIL SUPPORT SPECIALIST) Anatomical Region Laterality Modality Abdomen, Pelvis, Abdominal RST LOS, Abdominal ARZ LOS, N/A Computed Tomography Abdominal FLA LOS, Other Specimen (Source) Anatomical Collection Method Collection Time Re ceived Time Location / / Volume Laterality 2021 12:46 PM PHARMACY RETAIL SUPPORT SPECIALIST Impressions 2021 12:55 PM PHARMACY RETAIL SUPPORT SPECIALIST 1. Findings consistent with a mid small bowel obstruction, which may be related to partial volvulus and/or adhesion. [place] el all appears viable, with no evidence of necrosis or perforation. 2. Mildly delayed left nephrogram, of un clear etiology 3. Opacities in both lung bases likely a cute infection/inflammation, possibly due to aspiration. Narrative 2021 12:55 PM PHARMACY RETAIL SUPPORT SPECIALIST EXAM: ??INTERPRETATION OF OUTSIDE CT ABDOMEN AND [...] be related to partial volvulus and/or adhesion. [place] el all appears viable, with no evidence of necrosis or perforation. 2. Mildly delayed left nephrogram, of un clear etiology 3. Opacities in both lung bases likely a cute infection/inflammation, possibly due to aspiration. Alexis Peraza P.A.-C. IMG CT PROCEDURES ECG 12 Lead (2021 12:15 PM PHARMACY RETAIL SUPPORT SPECIALIST) P athologist Signature Ventricular Rate 117 BPM MUSE ECG/Min [place] Interval 142 ms MUSE QRSD Interval 86 ms MUSE QT Interval 318 ms MUSE QTC Interval 443 ms MUSE P [place] 48 degrees MUSE R [place] -4 degrees MUSE T Wave [place] 38 degrees MUSE Specimen Anatomical Collection Method Collection Time Receive d Time (Source) Location / / Volume Laterality 2021 12:15 2021 PM PHARMACY RETAIL SUPPORT SPECIALIST 12:17 PM PHARMACY RETAIL SUPPORT SPECIALIST Impressions MUSE - 2021 12:17 PM PHARMACY RETAIL SUPPORT SPECIALIST Sinus tachycardia Premature ventricular complexes Cannot rule [...] Diagnoses Not on filedocumented in this encounter Admitting Diagnoses Diagnosis Obstruction Intestinal (HCC) documented in this encounter Administered Medications Inactive Administered Medications - up to 3 most recent administrations Medication Order MAR Action Action Date Dose Rate Site ARIPiprazole tablet 20 mg (ABILIFY) Given 04/28/2021 9:06 AM PHARMACY RETAIL SUPPORT SPECIALIST 20 mg 20 mg, oral, Every morning, First dose (after last modification) on Sat04/28/21 at 0900 bisacodyL suppository 10 mg (DULCOLAX) Given 2021 8:50 PM PHARMACY RETAIL SUPPORT SPECIALIST 10 mg 10 mg, rectal, 2 times daily PRN, constipation, Starting on 04/24/21 at 1235 citalopram tablet 20 mg (CeleXA) Given 04/28/2021 9:06 AM PHARMACY RETAIL SUPPORT SPECIALIST 20 mg 20 mg, oral, Daily, First dose (after last modification) on Nereyda 04/27/21 at 0900 Given 04/27/2021 9:35 AM PHARMACY RETAIL SUPPORT SPECIALIST 20 mg D5W infusion 10-250 mL/hr, intravenous, As needed, Medications Inco mpatible with 0.9% NaCL, Starting on Sat04/25/21 at 1637, Infuse at the same rate as the piggyback until tubing clears or up to a volume of 20 mL pre and post infusion for medications incompatible with 0.9% NaCL. Use 100 mL bag then disca rd. dilTIAZem tablet 30 mg (CARDIZEM) Given 04/28/2021 12:01 PM PHARMACY RETAIL SUPPORT SPECIALIST 30 mg 30 mg, oral, Every 6 hours scheduled, First dose (after last modification) on Sat04/26/21 at 1800 Given 04/28/2021 6:14 AM PHARMACY RETAIL SUPPORT SPECIALIST 30 mg Given 04/28/2021 12:40 AM PHARMACY RETAIL SUPPORT SPECIALIST 30 mg enoxaparin injection 40 mg Given 04/28/2021 9:07 AM PHARMACY RETAIL SUPPORT SPECIALIST 40 mg Left Upper Arm (LOVENOX) (Back) 40 mg, subcutaneous, Daily, First dose on Sat04/25/21 at 1500 Given 04/25/2021 2:10 PM PHARMACY RETAIL SUPPORT SPECIALIST 40 mg Left Lower Abdomen fluticasone furoate-vilanteroL 100-25 Given 04/28/2021 9:[address] 1 puff mcg/actuation inhaler 1 puff (BREO ELLIPTA DISKUS) 1 puff, inhalation, Daily (RT), First dose on Sat04/25/21 at 0800, fluticasone/vilanterol diskus 100/25 mcg was interchanged for fluticasone/salmeterol MDI 100/50 mcg Given 04/27/2021 9:34 AM PHARMACY RETAIL SUPPORT SPECIALIST 1 puff Given 04/26/2021 7:47 AM PHARMACY RETAIL SUPPORT SPECIALIST 1 puff HYDROmorphone (PF) injection 0.2 mg (DIL AUDID) 0.2 mg, intravenous, Every 2 hour PRN, s evere pain or score 7-10 of 10, Starting on Sat04/25/21 at 0140 lidocaine 5 % 1 patch (LIDODERM) 1 patch, transdermal, Administer over 12 Hours, Daily, First dose on Sat04/25/21 at 0900, May apply up to 3 patches per day. NaCl 0.9% infusion 10-250 mL/hr, intravenous, As [...] 40 mg (PROTONIX) Given 04/28/2021 6:14 AM PHARMACY RETAIL SUPPORT SPECIALIST 40 mg 40 mg, oral, Daily before breakfast, First dose on Nereyda 04/27/21 at 0700, Swallow whole. Do NOT crush, chew, or split tablet. Given 04/27/2021 6:01 AM PHARMACY RETAIL SUPPORT SPECIALIST 40 mg phenoL 1.4 % spray 1 spray (CHLORASEPTIC ) Given 04/25/2021 11:18 PM PHARMACY RETAIL SUPPORT SPECIALIST 1 spray 1 spray, mouth/throat, As needed, sore throat, Starting on Sat04/25/21 at 1803 sodium chloride 0.9 [...] injection 3 mL Given 04/28/2021 9:09 AM PHARMACY RETAIL SUPPORT SPECIALIST 3 mL 3 mL, intravenous, Every 12 hours scheduled, First dose on Sat04/24/21 at 2100, Peripheral Intravenous Catheter and Rapid Infusion Catheter, when no infusion to maintain patency Given 04/25/2021 8:10 AM PHARMACY RETAIL SUPPORT SPECIALIST 3 mL Given 2021 8:35 PM PHARMACY RETAIL SUPPORT SPECIALIST 3 mL sodium chloride 0.9 % injection 3 mL 3 mL, intravenous, As needed, line care, Peripheral Intravenous Catheter and Rapid Infusion Catheter, Starting on Sat04/25/21 at 1637, P rior to and following infusion and between multiple consecutive infusions. sodium chloride 0.9 % injection 3 mL Given 04/27/2021 8:42 PM PHARMACY RETAIL SUPPORT SPECIALIST 3 mL 3 mL, intravenous, Every 12 hours scheduled, First dose on Sat04/25/21 at 2100, Peripheral Intravenous Catheter and Rapid Infusion Catheter: When no infusion to maintain patency. Given 04/27/2021 9:54 AM PHARMACY RETAIL SUPPORT SPECIALIST 3 mL Given 04/26/2021 9:25 PM PHARMACY RETAIL SUPPORT SPECIALIST 3 mL documented in this encounter Active and Recently Administered Medications Times are shown in PHARMACY RETAIL SUPPORT SPECIALIST. Scheduled Medication Order 04/26/2021 04/27/2021 04/28/2021 ARIPiprazole tablet 10 mg (ABILIFY) (CANCELED) 0848 (G iven - Provider: Gem Ribeiro R.N., C.M.S.R.N.) 10 mg, gastric tube, Every morning, Firs t dose (after last modification) on Sat04/25/21 at 0900 ARIPiprazole tablet 10 mg (ABILIFY) (CANCELED) 0936 (Given - Provider: Gem Ribeiro R.N., C.M.S.R.N.) 10 mg, oral, Every morning, First dose ( after last modification) on Sat04/27/21 at 0900 ARIPiprazole tablet 20 mg (ABILIFY) 0906 (Given - Provider: Chantell Rivera R.N.) 20 mg, oral, Every morning, First dose ( after last modification) on Sat04/28/21 at 0900 citalopram tablet 20 mg (CeleXA) (CANCELED) 0849 (Give n - Provider: Gem Ribeiro R.N., C.M.S.R.N.) 20 mg, gastric tube, Daily, First dose ( after last modification) on Sat04/25/21 at 0900 citalopram tablet 20 mg (CeleXA) 0935 (G ivvipul - Provider: Gem Ribeiro R.N., C.M.S.R.N.) 0906 (Given - Provider: Chantell kennedy R.N.) 20 mg, oral, Daily, First dose (after la st modification) on Sat04/27/21 at 0900 cloZAPine tablet 350 mg (CLOZARIL) (CANCELED) 2118 (Gi mani - Provider: Veronica Cohn R.N.) 350 mg, oral, Daily at bedtime, First do se on Sat04/26/21 at 2100, Is this a continuation and/or restart of therapy? Yes, Is the patient eligible via the ? eligibility check? on the [employer]S website? armacist to perform eligibility check via clozapine [employer]S website dilTIAZem tablet 30 mg (CARDIZEM) (CANCELED) 0642 (Giv en - Provider: Amy Auguste R.N.)1342 (Given - Provider: Gem Ribeiro R.N., C.M.S.R.NElvi) 30 mg, gastric tube, Every 6 hours sched uled, First dose (after last modification) on Sat04/25/21 at 1200 dilTIAZem tablet 30 mg (CARDIZEM) 1822 (Given - Provid er: Veronica Cohn R.N.) 0020 (Given - Provider: Miroslava Ewing R.N.)0601 (Given - Provider: Miroslava Ewing R.N.)1158 (Given - Provider: Gem Ribeiro R.N., C.M.S.R.N.)1824 (Given - Provider: Veronica Cohn R.N.) 0040 [...] stools) 0907 (Given - Provider: Chantell kennedy R.N.) 40 mg, subcutaneous, Daily, First dose on Sat04/25/21 at 1500 fluticasone furoate-vilanteroL 100-25 mc g/actuation inhaler 1 puff (BREO ELLIPTA DISKUS) 0747 (Given - Provider: Gem Ribeiro R.N., C.M.S .R.N.) 0934 (Given - Provider: Gem Ribeiro R.N., Tye.Candelario.S.R.N. - Comment: in BR) 0905 (Given - Provider: Chantell Rivera R.N.) 1 puff, inhalation, Daily (RT), First do se on Sat04/25/21 at 0800, fluticasone/vilanterol diskus 100/25 mcg was interchanged for fluticasone/salmeterol MDI 100/50 mcg lansoprazole suspension 30 mg (PREVACID) (CANCELED) 06 42 (Given - Provider: Amy Auguste R.N.) 30 mg, gastric tube, Daily before breakf ast, First dose (after last modification) on Sat04/25/21 at 0700 lidocaine 5 % 1 patch (LIDODERM) 0853 (Not Given - Pro vider: Gem Ribeiro R.N., Tye.Candelario.S.R.N. - Reason: Patient/family refused) 0952 (Not Given - Provider: Gem Ribeiro R.N., C.M.S.R.N. - Reason: Patient/family refused) 0907 (Not Given - Provider: Chantell Rivera R.N. - Reason: Patient/family refused) 1 patch, transdermal, Administer over 12 Hours, Daily, First dose on Sat04/25/21 at 0900, May apply up to 3 patches per day. pantoprazole DR tablet 40 mg (PROTONIX) 0601 (Given - Provider: Miroslava Ewing R.N.) 0614 (Given - Provider: Kirstin Starks andCherry RElviNElvi) 40 mg, oral, Daily before breakfast, Fir st dose on Nereyda 04/27/21 at 0700, Swallow whole. Do NOT crush, chew, or split tablet. sodium chloride 0.9 % injection 3 mL 0855 (Not Given - Provider: Gem Ribeiro R.N., C.M.S.R.N. - Reason: Order parameters not met)2125 (Not Given - Provider: Veronica Cohn R.N. - Reason: Order parameters not met) 0954 (Not Given - Provider: Gem Ribeiro R.N., Tye.Candelario.S.R.N. - Reason: Order parameters not met)2042 (Not [...] (Given - Pro vider: Gem Ribeiro R.N., Tye.Candelario.S.R.N.)2124 (Given - Provider: Veronica Cohn R.N.) 0954 (Given - Provider: Gem Ribeiro R.N., C.Candelario.S.R.N.)2041 (Given - Provider: Veronica oChn R.N.) 0909 (Not Given - Provider: Chantell marino RElviNElvi - Reason: Other) 3 mL, intravenous, Every 12 hours schedu led, First dose on Sat04/25/21 at 2100, Peripheral Intravenous Catheter and Rapid Infusion Catheter: When no infusion to maintain patency. Continuous Medication Order 04/26/2021 04/27/2021 04/28/2021 D5W and NaCl 0.45 % infusion (CANCELED) 0029 (New Bag - Provider: Amy Auguste R.N.)1143 (Rate/Dose Verify - Provider: Amy Auguste R.N.)1104 [...] COVID19 Pending 2021 2021 2021 2:49 PM PHARMACY RETAIL SUPPORT SPECIALIST COVID19 Pending 04/27/2021 04/28/2021 04/28/2021 1:19 AM PHARMACY RETAIL SUPPORT SPECIALIST documented as of this encounter
--- OUTSIDE RECORDS SUMMARY | 2022-03-01 10:16 | XMS_ITS | Encounter Summary ---
:1955 Author Organization [facility] Address [address] [place] [address] Care Team Providers Name Role Phone Unavailable Primary Care Provider Unavailable Reason for Visit Outpatient (Routine) - Closed Specialty Diagnoses / Procedures Referred By Contact Refer red To Contact Thoracic Surgery Diagnoses Malignant Neoplasm Of Lung Adenocarcinoma Left (HCC[facility] C.N.P. [address] [place] [address] Referral ID Status Reason Start Date Expiration Date Visits Requ ested Visits Authorized [id number] Closed 08/11/2018 08/11/2019 1 1 Encounter Details Date Type Department Care Team Description 09/12/2018 Office Visit Division of Thoracic Maria Isabel Ramsay Neoplasm Of Surgery in [place], Brissa Castillo. Lung Adenocarcinoma Left [place] [address] [facility] ([facility]) [address] [place] [id number] Social History Tobacco Use Types Packs/Day Years Used Date Smoking Tobacco: Former Cigarettes 1 25 Quit : 2004 Smokeless Tobacco: Never Alcohol Use Standard Drinks/Week Comments No 0 (1 standard drink = 0.6 oz pure alcoho l) Sex Assigned at Date Recorded Not on file documented as of this encounter Last Filed Vital Signs Vital Sign Reading Time Taken Comments Blood Pressure - - Pulse - - Temperature - - Respiratory Rate - - Oxygen Saturation - - Inhaled Oxygen Concentration - - Weight 105 kg (231 lb 7.7 oz) 09/12/2018 1:03 PM CDT Height 163.2 cm (5' 4.25) 09/12/2018 1:03 PM CDT Body Mass Index 39.42 09/12/2018 1:03 PM CDT documented in this encounter Progress Notes Fozia Ramsay P.A.-C. - 09/12/2018 1:00 PM CDT SUBJECTIVE Sarah Reyes is a 63 y.o. female who presents today for a post-operative follow up visit. Dr. 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 No visceral pleural invasion. Negative margins. 0 of 2 lymph nodes involved. She was discharged from the hospital on August 11 after a postoperative course remarkable for noninvasive ventilation required in PACU setting for which she spent the evening in the ICU for closer monitoring the night of surgery. She was transferred down to the floor the following day. She is doing well postoperatively. She denies pain. She has a little shortness of breath and is trying to get back into the swing of activity. She has quite a bit of fatigue yet. Her appetite and bowels have been back to baseline. She has a little bit of a cough since surgery. no fevers, chills, or recent infections. No hospitalizations since discharge. OBJECTIVE PHYSICAL EXAM General: no apparent distress Pulmonary: normal breathing Incision: normal, clean, dry, intact, no drainage and no erythema Diagnostics Imaging: chest radiograph Chest x-ray Result: stable postoperative changes ASSESSMENT / PLAN She is doing well after surgery. Given this is a lung cancer, stage I, she would need CT scans of the chest every 6 months for 2 years, and annually thereafter. They have discussed they would like her follow up to be with Dr. Silverio at [facility], and I think this is perfectly appropriate. Postoperative visit no charge. documented in this encounter Plan of Treatment Not on filedocumented as of this encounter Visit Diagnoses Diagnosis 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) documented in this encounter
--- OUTSIDE RECORDS SUMMARY | 2022-03-01 10:17 | XMS_ITS | Encounter Summary ---
:1955 Author Organization [facility] Address [address] [place] [id number] Care Team Providers Name Role Phone Unavailable Primary Care Provider Unavailable Reason for Referral Physical Therapy (Routine) - Closed Specialty Diagnoses / Procedures Referred By Contact Refer red To Contact Diagnoses Decline Functional Status Shani Martin APRN, C.N.P. [address] [place] [phone] Referral ID Status Reason Start Date Expiration Visits Visits Date Requested Authorized [id number] Closed Patient 08/11/2018 08/11/2019 1 1 Preference utpatient (Routine) - Closed Specialty Diagnoses / Procedures Referred By Contact Refer red To Contact Thoracic Surgery Diagnoses Malignant Neoplasm Of Lung Adenocarcinoma [facility] [address] [place] [phone] Referral ID Status Reason Start Date Expiration Date Visits Requ ested Visits Authorized [id number] Closed 08/11/2018 08/11/2019 1 1 Encounter Details Date Type Department Care Team Description 08/07/2018 - Hospital Encounter [facility] [place], Mass Lung (Primary Dx); 08/11/2018 [facility] Garcia M.D. Nodule Pulmonary; [facility], [address] [place] [address] Decline Functional Status; [place], [place] Malignant Neoplasm Of Lung Adenocarcinoma Left (HCC) Fifth Floor [id number] [phone] [place], [place] (Work) [phone] Social History Tobacco Use [...] Sign Reading Time Taken Comments Blood Pressure 130/69 08/11/2018 3:15 PM CDT Pulse 75 08/11/2018 12:07 PM CDT Temperature 36.6 ??C (97.9 ??F) 08/11/2018 3:15 PM CDT Respiratory Rate 16 08/11/2018 3:15 PM CDT Oxygen Saturation 95% 08/11/2018 3:15 PM CDT Inhaled Oxygen Concentration - - Weight 103 kg (226 lb 10.1 oz) 08/11/2018 4:30 PM CDT Height 165.1 cm (5' 5) 08/08/2018 8:11 AM CDT Body Mass Index 37.71 08/08/2018 8:11 AM CDT documented in this encounter Discharge Summaries Shani Martin, HUGH, C.N.P. - 08/11/2018 2:51 PM CDT DISCHARGE SUMMARY BRIEF OVERVIEW Discharge Provider: Fany Lyn M.D. Admission Date: 08/07/2018 Discharge Date: 08/11/2018 PRINCIPAL DIAGNOSIS No Principal Problem: There is no principal problem currently on the Problem List. Please update theProblem List and refresh. SECONDARY DISCHARGE DIAGNOSES Active Problems: Schizophrenia (HCC) Diabetes Mellitus Type 2 (HCC) Asthma Mild Intermittent (HCC) Obesity Body Mass Index 30-39.9 Adult Apnea Sleep Obstructive Nodule Pulmonary [facility] Lung Resolved Problems: * No resolved hospital problems. * Operative Procedures: Scheduled (Lisa), Completed (Comp) or Canceled (Can) Case IDs Date Procedure Surgeon Location Status [id number] 08/07/18 THORACOSCOPY, WEDGE RESECTION LUNG. Fany Lyn M.D. RST ROMB OR Comp DISCHARGE DISPOSITION Home or Self Care [1] ACTIVE ISSUES REQUIRING FOLLOW UP She should return to see a member of Dr. Lyn's team in 4-6 weeks with a PA and lateral chest x-ray. Outpatient physical therapy was recommended. OUTPATIENT FOLLOW UP No future appointments. TEST RESULTS PENDING AT DISCHARGE DETAILS OF HOSPITAL STAY REASON FOR ADMISSION Nodule Pulmonary [facility] HOSPITAL COURSE Ms. Reyes tolerated her procedure well. In the postoperative area should require noninvasive ventilation and was therefore transferred to the ICU for closer monitoring. She was able to be transferred to the thoracic surgery PCU the following day. Her chest tube was removed on August 09, 2018. At the time of discharge she was tolerating a regular diet and her pain was well controlled. CONSULTS ORDERED DURING THIS ADMISSION IP CONSULT TO PULMONARY REHABILITATION IP CONSULT TO CARE MANAGEMENT IP CONSULT TO CARE MANAGEMENT Order Name Source Comment Collection Info Order Time ABG W/COOX Blood, Arterial Line 08/07/2018 9:40 AM CALCIUM, IONIZED, S/B Blood, Arterial Line 08/07/2018 9:40 AM SODIUM, B Blood, Arterial Line 08/07/2018 9:40 AM POTASSIUM, B Blood, Arterial Line 08/07/2018 9:40 AM GLUCOSE, WHOLE BLOOD Blood, Arterial Line 08/07/2018 9:40 AM ABG W/COOX Blood, Arterial Line 08/07/2018 10:51 AM GLUCOSE, WHOLE BLOOD Blood, Arterial Line 08/07/2018 10:51 AM ABG W/COOX Blood, Arterial 08/07/2018 2:03 PM SURGICAL PATHOLOGY, [facility] Lung, Left Upper Lobe Collected By: Fany Lyn M.D. 08/07/2018 10:14 AM Collection Date 08/07/2018 Collection Time 10:14 AM Pertinent Diagnostic Results: Pathology: . FINAL DIAGNOSIS A. 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 ??Visceral pleural invasion is absent. Tumor approaches the stapled surgical margin (< 1 mm). Intrapulmonary peribronchial lymph nodes are not identified. ?? Benign meningoendothelial-like nodule (2 mm), incidental finding in the non tumoral lung parenchyma. See synoptic report. B. ??Lymph nodes, subaortic (station 5), dissection: Multiple (2) lymph nodes are negative for tumor. C. 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 ??SYNOPTIC REPORT Procedure: Wedge resection. Specimen Laterality: Left. Tumor Site: Upper lobe. Total Tumor Size: Greatest dimension: ??1.6 cm. Additional dimensions: ??1.5 x 0.9 cm. Total Tumor Size Inclusive of Invasive and Lepidic Components: Not applicable. Size of Invasive Tumor: Not applicable. Tumor Focality: Single tumor. 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 Visceral Pleural Invasion: Not identified. Lymphovascular Invasion: Not identified. Direct Invasion of Adjacent Structures: No adjacent structures present. Margins: All margins are uninvolved by carcinoma. Margins examined: ??Parenchymal. Distance of invasive carcinoma from closest margin: ??< 0.1 cm. Treatment Effect: No known presurgical therapy. Regional Lymph Nodes ?Number of Lymph Nodes Involved: 0. ?Number of Lymph Nodes Examined: 2. Pathologic Staging (AJCC, 8th edition) ?TNM Descriptors: Not applicable. ?Primary Tumor: pT1b. ?Regional lymph nodes: pN0. ?Distant Metastasis: Not applicable. Additional Pathologic Findings: ??Benign meningoendothelial-like nodule (2 mm), incidental finding in the non tumoral lung parenchyma. The synoptic report incorporates information from all relevant surgical material and includes all required data elements of the current CAP Cancer Protocol. This final pathology report is based on the gross/macroscopic examination, the frozen section histologic evaluation of the specimen(s), and review of the Hematoxylin and Eosin (H&E) permanent sections. ??Any revised information from the preliminary report is underlined. Last Imaging Result DX CHEST AP OR PA AND LATERAL 2 VIEWS Impression IMPRESSION: Compared to radiograph 08/09/2018. Interval removal of the left chest tube. Stable small left apical and lateral pneumothorax. Stable moderate cardiac enlargement. Tortuous calcified aorta. Subsegmental atelectasis in the bilateral lower lobes. Slightly increased accentuated bilateral pulmonary vascularity and mild pulmonary edema. Postoperative changes of pulmonary wedge resection on the left. Moderate amount of stool in the colon. Degenerative changes in the spine. CONDITION AT DISCHARGE stable Discharge instructions were provided to the patient and caregiver(s). documented in this encounter Discharge Instructions Discharge Instr - Yaritza Rea P.T., D.P.T. - 08/09/2018 3:32 PM CDT Physical Therapy Discharge Summary MOBILITY RESTRICTIONS/PRECAUTIONS: Precautions Other Precautions: fall, impulsive, cognition, respiratory, hx schizophrenia CURRENT FUNCTIONAL STATUS: Bed Mobility-Supine to Sit # of Assistants: 2 Level of Assistance: Moderate assistance Cuing: Visual;Verbal;Tactile Transfer-Sit to Stand # of Assistants: 1 Device: Podium walker Level of Assistance: Supervision/Set-up Gait Assessment # of Assistants: 1 Level of Assistance: Minimal assistance Device: Podium walker Distance (m): 25 m Cuing: Verbal;Tactile Quality: Shuffling;Decreased heel strike;Decreased toe off;Increased base of support Stairs No Data Recorded RECOMMENDATIONS: PT Evaluate and Treat; frequency and duration to be determined by evaluating therapist. Discharge information provided on 08/09/2018 Contact information: [facility], [address] [facility] Therapy Services: [phone] documented in this encounter Medications at Time of Discharge Medication Sig Dispensed Refills Start Date End Date albuterol (PROVENTIL Inhale 2 puffs every 0 [...] 05/30 mcg/act diskus inhaler times a day. ipratropium-albuterol Inhale 3 mL 4 (four) 0 [...] 2021 bedtime. documented as of this encounter Progress Notes Jazlyn Jimenez O.T. - 08/11/2018 3:22 PM CDT Occupational Therapy Acute Hospital Inpatient Treatment SUBJECTIVE Patient's Name: Sarah Reyes Referring/Attending Provider: Fany Lyn M.D. Medical Diagnosis: Nodule Pulmonary [R91.1] Mass Lung [R91.8] Reason for Referral: Occupational Therapy Evaluation and Treatment Onset Date: 08/07/18 Payor: MEDICARE / Plan: MEDICARE A AND B / Product Type: Medicare / History of Present Illness: left wedge lung rescetion via VATS 08/07/18 Family/Caregiver Present: Yes (sister) Patient/Caregiver Goals: Patient wants to return to her home with her family. Patient Comments: Patient pleasant and agreeable to OT treatment. Patient reports no concerns with returning to her sister's home. Patient denied complaints of pain during exercises. Activity Orders Start Ordered 08/08/18 0600 Activity: Up Ad Robyn Until discontinued Comments: Out of bed greater than 8 hours, including 6 or more walks and sitting in chair Question: Activity Level: Answer: Up Ad Robyn 08/07/18 1615 Precautions Other Precautions: fall, impulsive, cognition, respiratory, hx schizophrenia OBJECTIVE Vitals monitored and stable per EMR trend with no signs of distress throughout. Cognition Orientation: Oriented X4 Impulsive: Addressed, no concerns noted Following Commands: Follows one step commands with repetition ADL Comments ADL Comments: Collaborated with patient and sister regarding OT plan of care and current discharge recommendations. Discussed patient's participation in ADLs at home and sister provided further detailsrelated to the assistance she can and was providing at home prior to hospitalization. Facilitated therapeutic exercises as noted in order to maximize patient's healing and functional outcomes for increased participation and independence with activities of daily living. Session ended upon entrance of social media editor. Therapeutic Exercise - ROM ROM: Yes Other Exercise: Neck and upper back relaxation x 10 reps. Encouraged diaphragmatic breathing. Shoulder retraction x 5 reps. Shoulder rotation x 5 reps. Right Shoulder - ROM R Shoulder Motion: Active range of motion, Flexion, ABduction R Shoulder Exercise Position: Seated R Shoulder Reps/Sets: x 10 reps bilaterally. No pain reported. Left Shoulder - ROM L Shoulder Motion: Active range of motion, Flexion, ABduction L Shoulder Exercise Position: Seated L Shoulder Reps/Sets: x 10 reps bilaterally. No pain reported. Education provided today: Educated patient and patient's sister on appropriate return to activity. Educated on bathing instructions given incision. Educated on exercises to complete to assist with healing and overall recovery. Provided handout to assist with exercises, sister present for carry over. Handouts provided today: Exercises after chest surgery [id number] Communication: The patient's nurse was contacted and patient's status was discussed. Patient was left in bedside chair at end of session with call light in reach, all needs met and questions answered. Outcome Measures Current ADL Status: AM-[facility] Inpatient Short Form: Putting on and taking off regular lower body clothing?: A Little Putting on and taking off regular upper body clothing?: A Little Taking care of personal grooming such as brushing teeth?: None Bathing (including washing, rinsing, drying)?: A lot Toileting, which includes using toilet, bedpan, or urinal?: A Little Eating meals?: None Daily Activities Raw Score (max 24): 19 Daily Activities Standardized Score: 40.22 Daily Activities CMS 0-100% Score: 42.8 Daily Activities CMS Modifier: CK Interpretation: Clinicians answer the -[facility] Inpatient Short Form based on observed patient activityand/or clinical judgement (ie. patient can be scored without physically performing each activity) According to scoring guidelines: Those going to home had an average score of 20.1 Those going home with home care had an average score of 17.9 Those going to SNF had an average score of 14 Those going to IRF had an average score of 13.6 Those going to a LTAC had an average score of 11.5 Assessment Barriers to Discharge: None Discharge Recommendation: Other (Sister to assist with all upright mobility. Assist for bathing, meal prep, community mobility) Clinical Impression: Sarah and her sister appear to be planning appropriately for return to her sister's home. Patient participated well in therapeutic exercises to assist with upper extremity mobility. Patient and her sister have all adaptive equipment needs. Patient's sister is able to provide 24 hour physical assistance at discharge. Skilled OT will continue to benefit the patient in the acute care setting in order to progress functional independence for increased participation in ADLs and IADLs. Rehab potential: Ms. Reyes has Good potential to achieve established occupational therapy goals within the time frame outlined below. Functional Goals: OT Goal #1: Patient will complete cognitive testing/activities to assist with safety and dismissal planning. OT Goal #2: Patient will complete toileting process (including transfer, pericares, and clothing management) with modified independence to decrease dependence on caregiver and mazimize functioanl asisstance OT Goal #3: Patient will complete shower with stand by assistance to decrease dependence on caregiver and mazimize functioanl asisstance OT Goal #4: MET. Patient will complete home exercise program with supervision by discharge in order to maximize healing and functional outcomes. Progress: Progressing toward goals Plan OT Frequency: 5x/wk OT Duration: Until goals met or hospital discharge Requires Inpatient Follow-Up: Yes OT - Next Inpatient Appointment: 08/12/18 Comments: toileting, shower, grooming at sink, cognitive testing Plan: Alter current plan Treatment interventions may include: Therapeutic exercise, Cognitive skills training, Therapeutic functional activity, Self-care/home management Billing: Time Spent with Patient Therapeutic Exercise (min): 17 min Time Calculation Total Timed Units (min): 17 min Total Treatment Time (min): 17 min Functional G-code Worksheet Daily Activities Raw Score (max 24): 19 Daily Activities Standardized Score: 40.22 Daily Activities CMS 0-100% Score: 42.8 Daily Activities CMS Modifier: CAROLINA Jimenez O.T. Rosa Elena Mehta P.T. - 08/11/2018 1:20 PM CDT Physical Therapy Inpatient Treatment Note SUBJECTIVE Patient's Name: Sarah Eric Referring/Attending: Fany Lyn M.D. Medical Diagnosis: Nodule Pulmonary [R91.1] Mass Lung [R91.8] Reason for Referral: PT Evaluate and Treat Payor: MEDICARE / Plan: MEDICARE A AND B / Product Type: Medicare / Family/Caregiver Present: Yes (not in am; sister arrived in pm & present for afternoon follow up) Patient Comments: rates burning/pain 4 at surgical site and with this agreeable to physical therapy in am and in follow up this pm; indicated keeping walker for now (maybe later) when discussed trialing wtihout); replies to no falls in the last year Activity Orders Start Ordered 08/08/18 0600 Activity: Up Ad Robyn Until discontinued Comments: Out of bed greater than 8 hours, including 6 or more walks and sitting in chair Question: Activity Level: Answer: Up Ad Robyn 08/07/18 1615 Precautions Other Precautions: fall, impulsive, cognition, respiratory with L video assisted thoracic surgery incisions, hx schizophrenia OBJECTIVE Vitals monitored throughout session; within normal ranges. heart rate 107-117; O2 sats mid 90's on room air Treatment consisted of: Bed Mobility - Supine to Sit # of Assistants: 1 Level of Assistance: Supervision/Set-up Device: Bed rail Transfer - Sit to Stand # of Assistants: 1 Device: Front wheeled walker Level of Assistance: Minimal assistance (contact guard assistance w/verbal cues for safest hand placement) Transfer - Stand to Sit # of Assistants: 1 Level of Assistance: Minimal assistance (contact guard assistance w/verbal cues for safest hand placement and to continue walker use for last few steps to chair) Gait Training # of Assistants: 1 Level of Assistance: Minimal assistance (contact guard assistance ) Device: Front wheeled walker Distance (m): 70 m Surface: level Assessment of Gait: slow pace, external rotation of LE's, no gross loss of balance using walker; appeared distractable with path deviation Stairs # of Assistants: 2 (BARREL LOADER also present ) Level of Assistance: Minimal assistance (contact guard assistance at gait belt +/- hand hold assist on other side) # Stairs: 8 Rails: 1 Device: No device Comments: (patient manged 8 steps, step over step. Attempted to cue for option of 1 step at a time which she said was doing. Patient felt this was enough stairs at this time and proceeded return ambulation towards room to find she wanted to continue ambulating past room. PT suggested if she could, we should attempt more stairs to meet that needed to access at home (5 to enter and 13-14 to bedroom). But at turn around and approach to stairs again patient wanted to return to room. At pm follow up was going to trial stairs again but then her lunch tray arrived. Ultimately, based on PT clinical judgement and assessment of how the 8 steps went, anticipate that patient should be able to manage the 13-14to bedroom and with option of using one step at a time (reviewed again in afternoon) and/or standingto rest as needed (which her sister states she would do prior to admission). Exercise - Position Seated Exercise: Long arc quads, Marching, Ankle pumps Handouts provided today: Homegoing equipment rec's for 34 front wheeled walker The patient/family educated on safe transfer techniques with functional mobility/activity. The following coordination of care occurred today: Contacted Patient's nurse, OT and primary service regarding discharge/safety recommendations, equipment needs/recommendations, ongoing therapy needs after hospital discharge including walker script from primary service if agreeable. Patient was left in bedside chair at end of session with call light in reach, all needs met and questions answered. Outcome Measures 30 second sit to stand test 0 Interpretation: 8 or less = High fall Risk. Female Normal Values for Age Range Age 60-64; score of 12-17 Gait Speed .28 Interpretation: Household Ambulator = .4 meters/second.. <1.0 meters/second = needs intervention to reduce fall risk. AM-PAC Inpatient Short Form: AM-PAC Mobility: How much difficulty does the patient currently have??? Turning over in bed (including adjusting bedclothes, sheets and blankets)?: A Little Sitting down on and standing up from a chair with arms (e.g., wheelchair, bedside commode, etc.): A Little Moving from lying on back to sitting on the side of the bed?: A Little AM-PAC Mobility: How much help from another person does the patient currently need??? Moving to and from a bed to a chair: A Little Need to walk in hospital room?: A Little Climbing 3-5 steps with a railing?: A Little Basic Mobility Raw Score: 18 Basic Mobility Standardized Score: 43.63 Interpretation: Clinicians answer the AM-PAC Inpatient Short Form based on observed patient activityand/or clinical judgement (ie. patient can be scored without physically performing each activity) According to scoring guidelines: Those going to home had an average score of 20.1 Those going home with home care had an average score of 17.9 Those going to SNF had an average score of 14 Those going to IRF had an average score of 13.6 Those going to a LTAC had an average score of 11.5 Assessment Discharge Recommendation: Ongoing skilled outpatient therapy recommended (From a physical therapy standpoint recommend assist for all mobilty, including stairs, continued walker use at this time and ongoing physical therapy.. Discussed this with patient and sister in afternoon. ) Equipment Recommended PT: Walker From a physical therapy perspective, the level of care above has been recommended for Ms. Reyes after hospital discharge. This level of care is based on her functional abilities during today's session. This may change throughout the hospital course and will be updated as appropriate. Clinical Impression of today's session: Patient seen in am and followed up in pm when her sister arrived who was able to share a little morere: patient's baseline mobility. Shared above rec's with both patient and her Sister. Her sister plans to acquire a walker closer to home. Rehab potential: Ms. Reyes has Good potential to achieve established physical therapy goals within the time frame outlined below. Functional Goals and Timeframes: PT Inpatient Goals PT Goal #1: Patient will complete bed mobility with modified independence to be safe to discharge home. PT Goal #2: Patient will complete transfers with modified independence to be safe to discharge home. PT Goal #3: Patient will ambulate 50m with least restrictive device with modified independence for safe in home ambulation. PT Goal #4: Patient will complete 14 stairs with supervision to safely access the home. Progress: Progressing toward goals Plan Treatment Plan: Plan: Continue with current plan PT Frequency: 5x/week PT Duration: until goals met or hospital discharge Requires Inpatient Follow-Up: Yes PT - Next Inpatient Appointment: 08/12/18 Plan Comments: continue progressive strengthening, conditioning, balance, gait and functional mobiltiy re-ed using least restriictive gait aid, 13-14 stair management Treatment interventions may include: Therapeutic exercise, Therapeutic functional activity, Neuromuscular re- education, Self-care/home management, Gait training Billing: Time Spent with Patient Therapeutic Activity (min): 40 min Therapeutic Exercise (min): 10 min Total Timed Units (min): 50 min Total Treatment Time (min): 50 min Functional G-code Worksheet Basic Mobility Raw Score: 18 Basic Mobility Standardized Score: 43.63 CMS 0-100% Score: 46.58 % Basic Mobility CMS Modifier: CAROLINA Mehta P.T. Sharmaine Arias L.I.C.S.W., M.S.W. - 08/11/2018 11:29 AM CDT SUBJECTIVE Additional social work referral received to assist with discharge planning. Social work met with patient and her sister. They indicate that they plan for the patient to return home, with no new services. Patient's sister states that she is with patient almost 24 hours a day, and denies any concerns with her returning home at this time. Patient confirmed with social work that she has someone coming infor lab draws once/month through [facility]. Patient and her sister confirmed that this is the only service coming into the home, at this time. Discussed other community resources for dismissal. Patient/family declined resources at this time. Encouraged them to seek out social work if any needs/concerns arise. OBJECTIVE Patient and her sister were sitting in the patient's hospital room when social work presented. They engaged in conversation, and report understanding of provided information. Patient/family report agreement with the plan below. ASSESSMENT / PLAN ASSESSMENT Patient appears to be coping well at this time, and denies any immediate concerns. Patient/family appear to have an appropriate understanding of the patient's needs, and are planning appropriately for discharge at this time. PLAN ?? Patient intends to discharge home with family, and no new services ?? Social work will continue to follow Abhinav Rboerts M.S.W. 08/11/2018 DAT Chetan Rodriguez M.D. - 08/11/2018 7:49 AM CDT AVSS, AF, on RA this morning with Sats low 90s. Voiding, tolerating PO, pain well-controlled. CT out. Plan for dismissal today. DAT Carolyn Gonzalez R.R.T., L.R.T. - 08/10/2018 8:21 AM CDT 08/10/18 0800 Chest Physiotherapy CPT Delivery Source Flutter valve CPT Duration 10 minutes CPT Chest Site Full range CPT Treatment Tolerance Tolerated well $Chest Physiotherapy Subsequent PEP Therapy Device Aerobika Flutter Valve Device Aerobika Continue to follow for bronchial hygiene Valentin Breen 08/10/2018 7:53 AM CDT 08/10/18 0700 Nocturnal Oxygen Assessment Asleep Room Air SpO2 88 Percent Oxygen Flow Rate 0 L/min Nocturnal oxygen assessment completed. Patient does not meet requirements for nocturnal oxygen. Electronically signed by: Valentin Austin 08/10/18 7:53 AM Under the direction of Carolyn Gonzalez HUMAN RESOURCES SERVICES SPECIALIST Mike Roman M.D., M.S. - 08/09/2018 10:14 AM CDT Doing well. PLAN: General care. DC chest tube. CXR. Scheduled nebs. PT/OT. SW to follow. Dismissal likely Saturday. Lenore Fernandez R.R.T., L.R.T. - 08/09/2018 1:21 AM CDT 08/09/18 0120 BPAP/CPAP Therapy BPAP/CPAP Interface Nasal mask Patient's Own Equipment Mask;Tubing;BPAP;Equipment inspected (per site policy) BPAP/CPAP Mode Bilevel;Per Home Settings FiO2 (%) (2 L bleed in) NPPV EPAP (CPAP) Setting 12 cm H2O NPPV IPAP Setting 16 cm H2O Patient on BiPAP. Electronically signed by: Lenore Fernandez R.R.T., L.R.T. 08/09/18 1:21 AM Madelin David, Maurisio., R.Ph. - 08/08/2018 1:39 PM CDT Sarah Reyes is on clozapine. Home dose of clozapine is 50 mg QAM, 400 mg QHS for schizophrenia; followed at [facility] in [place] (Dr. Minna Gramajo???Fran) normally. Dose and compliance confirmed with patient by floor pharmacist last night (last dose was 4/10 PM). Due to the small incidence of agranulocytosis associated with the use of clozapine, this medication requires the registration of patients, prescribers and pharmacies into the clozapine REMS program. ANC monitoring and reporting to the clozapine REMS program is required and will be reported to the clozapine REMS program by the inpatient psychiatric pharmacist. Monthly laboratory ANC counts will be ordered by the pharmacist. If clozapine is discontinued for more than 2 days, it is recommended that treatment be reinitiated with 12.5 mg once or twice daily and then titrated back to the patient's maintenance dose. If you have questions concerning this patient's clozapine monitoring requirements, please contact the psychiatric pharmacist at [phone]. Madelin David Pharm.D., R.Ph. DAT Jr Escobar M.D. - 08/08/2018 10:50 AM CDT SUBJECTIVE Patient's location is [place] [id number] ?? I have seen and examined this patient. I have reviewed imaging studies and laboratory data with the Critical Team. I have discussed patient's management with the critical house staff and nursing. I agree with the documentation from today's date from the critical care service, except where details differ. OBJECTIVE I have reviewed the current vital sign data as applicable. PHYSICAL EXAM General: ??A 63-year-old female AAO x 3 Heart: ??Regular rate and rhythm. Brisk capillary refill. Lungs: ??Bilaterally air entry. ??Mildly coarse Abdomen: ??Soft, Nondistended. DIAGNOSTICS I have reviewed relevant laboratory, imaging, and other diagnostics as applicable. 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 #2 Obesity BMI 39 #3 KEVIN on home BiPAP #4 Asthma #5 Schizophrenia #6 Type 2 diabetes #7 Sinus tachycardia, resolved The patient did well over night in ICU. She required IV metoprol boluses for sinus tachycardia. Her Cardizem dosage was changed to 45 mg q.i.d. when being seen by the ICU team, the patient is hemodynamically stable. She appears to be oxygenating and ventilating well with nasal cannula oxygen. She willbe transferred to PCU status today. Margin Code: SH3 Sheldon Matson M.D. - 08/08/2018 10:36 AM CDT Thoracic Surgery Daily Progress Note THORACOSCOPY, WEDGE RESECTION LUNG., Left 1 Day Post-Op SUBJECTIVE Events over 24 hours - no acute events overnight. Afebrile vital signs stable. Patient reports pain at chest tube site. No evidence of desaturation overnight. OBJECTIVE VITAL SIGNS Vitals Blood Pressure: 120/76 Temperature: 36.7 ??C Temp Source: Oral Pulse Rate: 97 Resp Rate: 19 SpO2: 90 % Height: 165.1 cm Weight: 106.2 kg Recent Results (from the past 24 hour(s)) Blood Gas with Coox, Arterial Collection Time: 08/07/18 10:57 AM Result Value pO2 155 (H) pCO2 48 (H) pH 7.37 Base Excess 2 HCO3 28 (H) Hemoglobin, B 9.8 (L) O2Hb 97.7 COHb 1.2 MetHb <1.0 CtO2 13.9 (L) Glucose, Whole Blood - Intra-Op Collection Time: 08/07/18 10:57 AM Result Value Glucose 185 (H) Glucose, POCT Collection Time: 08/07/18 12:42 PM Result Value Glucose, POCT, B 144 (H) Site Capillary Blood Gas with Coox, Arterial Collection Time: 08/07/18 2:35 PM Result Value pO2 70 (L) pCO2 50 (H) pH 7.35 Base Excess 2 HCO3 27 (H) Hemoglobin, B 11.0 (L) O2Hb 91.6 (L) COHb 1.4 MetHb <1.0 CtO2 14.2 (L) Arterial Sample Site Art Line Patient Status Collection Time: 08/07/18 2:35 PM Result Value O2 Flow 7.0 Device BPAP Spont. breaths/min 24 Glucose, POCT Collection Time: 08/07/18 2:44 PM Result Value Glucose, POCT, B 139 Site Capillary Glucose, POCT Collection Time: 08/07/18 3:52 PM Result Value Glucose, POCT, B 133 Site Capillary CBC without Differential Collection Time: 08/07/18 4:27 PM Result Value Hemoglobin 10.9 (L) Hematocrit 34.5 (L) Erythrocytes 3.81 (L) MCV 90.6 RBC Distrib Width 14.4 Platelet Count 212 Leukocytes 10.8 (H) Calcium, Ionized Collection Time: 08/07/18 4:27 PM Result Value Calcium, Ionized, B 4.73 Lactate Collection Time: 08/07/18 4:27 PM Result Value Lactate, P 1.2 Magnesium Collection Time: 08/07/18 4:27 PM Result Value Magnesium, S 1.7 Phosphorus Inorganic Collection Time: 08/07/18 4:27 PM Result Value Phosphorus (Inorganic), S 4.3 APTT (Activated Partial Thromboplastin Time) Collection Time: 08/07/18 4:27 PM Result Value Activated Partial Thrombopl Time, P 25 Prothrombin Time (PT/INR) Collection Time: 08/07/18 4:27 PM Result Value Prothrombin Time, P 10.4 INR 1.0 Fibrinogen Collection Time: 08/07/18 4:27 PM Result Value Fibrinogen, P 383 pH Collection Time: 08/07/18 4:27 PM Result Value pH 7.37 Basic Metabolic Panel Collection Time: 08/07/18 4:28 PM Result Value Potassium, P 4.1 Sodium, P 140 Chloride, P 101 Bicarbonate, P 28 Anion Gap, P 11 BUN, P 13 Creatinine, P 0.49 (L) eGFR Black >90 eGFR Non-Black >90 Calcium, Total 8.7 (L) Glucose, P 146 (H) Glucose, POCT Collection Time: 08/07/18 5:53 PM Result Value Glucose, POCT, B 140 Last Intake > 4 hours Glucose, POCT Collection Time: 08/07/18 10:05 PM Result Value Glucose, POCT, B 180 (H) Site ARTLINE Last Intake 3-4 hours Basic Metabolic Panel Collection Time: 08/08/18 12:49 AM Result Value Potassium, S 4.6 Sodium, S 142 Chloride, S 103 Bicarbonate, S 27 Anion Gap 12 Bld Urea Nitrog(BUN), S 12 Creatinine, S 0.53 (L) eGFR-Non Black >90 eGFR-Black >90 Calcium, Total 8.8 Glucose, S 134 CBC with Differential, Blood Collection Time: 08/08/18 12:49 AM Result Value Hemoglobin 10.2 (L) Hematocrit 32.5 (L) Erythrocytes 3.64 (L) MCV 89.3 RBC Distrib Width 14.0 Platelet Count 223 Leukocytes 7.3 Neutrophils 6.40 Lymphocytes 0.48 (L) Monocytes 0.42 Eosinophils <0.03 Basophils <0.03 Blood Gas with Coox, Arterial Collection Time: 08/08/18 12:54 AM Result Value pO2 75 (L) pCO2 44 pH 7.42 Base Excess 4 (H) HCO3 28 (H) Hemoglobin, B 10.3 (L) O2Hb 93.2 (L) COHb 2.1 MetHb <1.0 CtO2 13.6 (L) Arterial Sample Site Art Line Patient Status Collection Time: 08/08/18 12:54 AM Result Value FIO2 0.21 Device NPAP Spont. breaths/min 18 *Note: Due to a large number of results and/or encounters for the requested time period, some results have not been displayed. A complete set of results can be found in Results Review. Lines, Drains, and Airways Line Arterial Line 08/07/18 Left Radial 1d 2h days Drain Indwelling Urinary Catheter Non-latex 16 Fr. 1d 2h days Chest Tube 1 Pleural 23h days I/O 08/06 23508/07 2359 08/08 2359 P.O. 400 840 Crystalloid Bolus 2.5 Maintenance IV 2230.7 140 Intermittent Medications 200 200 Total Intake(mL/kg) 2833.2 (26.5) 1180 (11.1) Urine (mL/kg/hr) 2124 2525 (2.2) Blood 175 Chest Tube 200 50 Total Output 2499 2575 Net +334.2 -1395 Physical Exam Constitutional: She is oriented to person, place, and time. She appears well- developed and well-nourished. No distress. HENT: Head: Normocephalic and atraumatic. Right Ear: External ear normal. Left Ear: External ear normal. Nose: Nose normal. Mouth/Throat: Oropharynx is clear and moist. No oropharyngeal exudate. Eyes: Conjunctivae and EOM are normal. Right eye exhibits no discharge. Left eye exhibits no discharge. No scleral icterus. Neck: Normal range of motion. No tracheal deviation present. Cardiovascular: Intact distal pulses. Pulmonary/Chest: Effort normal and breath sounds normal. No respiratory distress. She exhibits tenderness. Abdominal: Soft. She exhibits no distension. There is no tenderness. Musculoskeletal: Normal range of motion. Neurological: She is alert and oriented to person, place, and time. Skin: Skin is warm and dry. She is not diaphoretic. Psychiatric: She has a normal mood and affect. Her behavior is normal. Chest tube output 225 cc serosanguineous output on suction no evidence of air leak ASSESSMENT / PLAN #1 Schizophrenia (HCC) #2 Diabetes Mellitus Type 2 (HCC) #3 Asthma Mild Intermittent (HCC) #4 Obesity Body Mass Index 30-39.9 Adult #5 Apnea Sleep Obstructive #6 Nodule Pulmonary #7 Mass Lung Current Diet Adult Diet Regular; 1500 mL Fluid: General starting at 08/07 1616 Assessment Plan 63-year-old female 1 Day Post-Op status post VATS left upper and left lower lobe wedge resections. Healing well. No acute events overnight. - chest tube to water seal - Hep-Lock IV - Continue to wean oxygen as tolerated. Concurrently on 2 L nasal cannula - Lasix 20 mg IV x1 - Patient to transfer from ICU to the PCU floor today Discharge Planning - august be Saturday Sheldon Matson M.D. Thoracic Surgery Fellow Pgr: [id number] 08/08/18 10:42 AM DAT Fany Lyn M.D. - 08/08/2018 8:45 AM CDT The patient was seen and examined today on surgical hospital rounds. The interval inpatient progress was reviewed. I reviewed the plan with the surgical team and agree. Jeanmarie Oscar M.D. - 08/08/2018 5:51 AM CDT [facility] Progress Note HISTORY OF PRESENT ILLNESS Brief Summary: The patient is 63-year-old female who is status who was referred to evaluation due toa left lung mass. She also has a history of asthma on as needed albuterol and montelukast, as well as on BiPAP for sleep-related disorder breathing, as well as obesity. She is noted to have schizophrenia, as well as type 2 diabetes. She does have a long-standing smoking history who quit approximately 13 years ago. Unfortunately a follow-up CT on December last year revealed left upper lobe nodules with cavitation increasing in size, as well as additional nodes. 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 Interval Events: Her airway was considered a Mallampati 3 and she had full range of motion of her neck. A oral area was required for mask, she had an easy intubation with a Parrish 2 blade with a Cormakc/Lehane pain score of 2a. She underwent a thoracoscopy with left-sided wedge resection of her lung. She received 2.1 L of crystalloid, no colloid, and no transfusion. Her estimated blood loss was noted to be 175 mL. She received a total of 250 mcg of fentanyl for pain control. Patient's anesthetic was a general case with inhalational anesthetic, she did require phenylephrine infusion during the case. On arrival to ICU, saturating well on closed face mask. Overnight did very well. She did use her BiPAP. She did require some 5 mg boluses metoprolol for tachycardia. This morning she states she feels well. She is breathing well. No chest pain, no fever no chills. Continuous Infusions: lactated ringers 20 mL/hr Last Rate: 20 mL/hr (08/08/18 0032) Vent Settings: O2 2 L/min Mode Rate Tidal Volume Pressure Support PEEP/CPAC/EPAP FiO2 Peak Inspiratory Pressure Plateau Pressure OBJECTIVE I have reviewed the current vital sign data as applicable to this admission. OBJECTIVE Vital Signs Vitals: 08/08/18 0445 08/08/18 0500 08/08/18 0515 08/08/18 0530 BP: 122/78 Pulse: 97 95 96 98 Resp: (!) 26 18 21 20 Temp: TempSrc: SpO2: 90% 92% 92% 91% Weight: Height: Intake & Output Weights for the past 120 hrs (Last 3 readings): Weight 08/07/18 0640 107 kg I/O 08/06 - 08/06 2359 P.O. 400 400 Crystalloid Bolus 2.5 Maintenance IV 2230.7 30.7 Intermittent Medications 200 100 Total Intake(mL/kg) 2833.2 (26.5) 530.7 (5) Urine (mL/kg/hr) 2124 879 (1.4) Blood 175 Chest Tube 200 25 Total Output 2499 904 Net +334.2 -373.3 DIAGNOSTIC FINDINGS I personally reviewed all radiology and labs from the past 24 hrs. Labs Results from last 7 days Lab Units 08/08/18 0054 08/08/18 00408/07/18 1627 WBC x10(9)/L -- 7.3 10.8* VBGRS HEMOGLOBIN g/dL 10.3* -- -- HEMOGLOBIN g/dL -- 10.2* 10.9* HEMATOCRIT % -- 32.5* 34.5* PLATELETS AUTO x10(9)/L -- 223 212 INR -- -- 1.0 Results from last 7 days Lab Units 08/08/18 00408/07/18 1628 08/07/18 16208/07/18 0953 SODIUM P mmol/L -- 140 -- -- SODIUM mmol/L 142 -- -- -- NABS SODIUM mmol/L -- -- -- 142 POTASSIUM P mmol/L -- 4.1 -- -- POTASSIUM mmol/L 4.6 -- -- 4.0 CREATININE mg/dL 0.53* -- -- -- CREATININE P mg/dL -- 0.49* -- -- CRTS1 EGFR NON BLACK mL/min/BSA >90 -- -- -- CREP2 EGFR P mL/min/BSA -- >90 -- -- BUN P mg/dL -- 13 -- -- BUN mg/dL 12 -- -- -- CHLORIDE P mmol/L -- 101 -- -- CHLORIDE mmol/L 103 -- -- -- MAGNESIUM mg/dL -- -- 1.7 -- Radiology Dx Chest 1 View Result Date: 08/07/2018 Impression: IMPRESSION: Negative for postoperative purposes. Comparison was made with chest CT date02/24/2019 . New left main bronchus intubation. Left apical chest tube. Patchy opacities of the lungs could be a combination of atelectases as well as vascular crowding. Accentuation of the cardiac silhouette due to hypoinflation. PHYSICAL EXAM General appearance: sedated, in no acute distress and cooperative Neurologic: alert, oriented and motor and sensory grossly intact HEENT: normocephalic, without obvious abnormality, conjunctivae/corneas clear and extraocular movements Chest: left sided chest wall tenderness and Chest tube in place on left side. Draining serosanguineous fluid. Incisions noted, covered in dressings are clean dry and intact. There is no induration, erythema, fluctuance, or crepitus. Slight wheeze Heart: Tachycardic, no murmur Abdomen: non-distended, non-tender and soft Extremities: extremities normal, warm and well-perfused Skin: Skin is warm, pink, and dry. Only notable changes are of postoperative in nature in terms of her dressings. ASSESSMENT / PLAN #1 Schizophrenia (HCC) #2 Diabetes Mellitus Type 2 (HCC) #3 Asthma Mild Intermittent ([facility]) #4 Obesity Body Mass Index 30-39.9 Adult #5 Apnea Sleep Obstructive #6 Nodule Pulmonary #7 Mass Lung PLAN BY SYSTEM Neurological: -patient has a history of schizophrenia, it appears that her home medications include citalopram 20 mg daily, 450 mg of clozapine nightly, and it appears at 1 point she has been on aripiprazole 10 mg. We will plan to continue patient's Citalopram as well as clozapine. I did confirm with the patient that she does take these medications. -Mentation/Delirium: Appropriate -Sedation holiday per ICU routine -Neuro checks: per ICU routine -Pain: Pain control will be with scheduled Tylenol, as well as p.r.n. fentanyl and oxycodone. She seems to be doing well in terms of this. -Hold meds: At this time will hold patient's Ambien. -Continue meds: Can order melatonin Pulmonary: Patient is now status post thoracoscopy and left-sided wedge resection of her lung. The patient was successfully extubated following her procedure. Admitted to ICU on closed face mask saturating 98%. -patient has a chest tube in place. Cares of this ordered by thoracic. 225mL out -Patient uses BiPAP at home, we will continue this she did well with his overnight -Continue meds: We will continue patient's Advair however we will substitute for 3-0 left, as well as albuterol and her DuoNeb prn -continue her fluticasone -we will order a postoperative ABG which was largely unremarkable Lab Results Component Value Date PHART 7.42 08/08/2018 PHART 7.35 08/07/2018 NII1HAT 44 08/08/2018 [id number] 50 (H) 08/07/2018 BEART 4 (H) 08/08/2018 BEART 2 08/07/2018 Cardiovascular: Cardiovascularly, at it does appear that the patient is on 120 mg of extended release diltiazem daily. -Hemodynamically stable -postoperative lactate -Hold meds: Her home diltiazem has been replaced with 45 mg Q 6 hr for slightly better heart rate control. She did require some metoprolol doses overnight. Lab Results Component Value Date LACTATE 1.2 08/07/2018 Renal: It does not appear that the patient has a history of renal disease, point of care creatinine back in April of this year was normal. -we will order postoperative BMP, Calcium, Magnesium, phosphorous which were unremarkable -GFR: We will check this with the BMP, has been normal -Smallwood catheter: Smallwood catheter we will remove. Currently -40mL since admission. Made 1800mL urine overnight. -Monitor electrolytes, replete PRN -IV fluids: Currently continue -Goal UOP: 0.5 cc/kg/hr Estimated Creatinine Clearance: 132.1 mL/min (A) (by C-G formula based on SCr of 0.53 mg/dL (L)). Intake/Output Summary (Last 24 hours) at 08/08/18 0551 Last data filed at 08/08/18 0500 Gross per 24 hour Intake 3363.84 ml Output 3403 ml Net -39.16 ml GI: No Known issues. -at home is on Prilosec, here we will continue famotidine tablets -Diet: 1500mL restriction -NG tube: Not indicated -Bowel movements: None since operation -PPI: Home Prilosec -PRN: Bowel regimen with scheduled senokot-s and PRNs as well Endocrine: Patient has a history of type 2 diabetes, she is not insulin requiring. She does take metformin 500 mg daily. -glucose checks with meals and at bedtime. Blood glucose goal of 120-180. -Insulin: Will order sliding scale Lab Results Component Value Date GLUCOSE 134 08/08/2018 Hematological: Preoperatively, patient had a hemoglobin of 9.9. This AM stable at 10.2 -Intraoperative Hb: It appears that the most recent hemoglobin was 11. She relatively minimal EBL -post-op coags: Fibrinogen, INR/PT, PTT were unremarkable -s/p transfusion: None were required -Anticoagulation: subcu heparin will be appropriate and has been ordered Lab Results Component Value Date HGB 10.3 (L) 08/08/2018 HGB 10.2 (L) 08/08/2018 PLT 223 08/08/2018 PLT 212 08/07/2018 INR 1.0 08/07/2018 Infectious Disease: Lab Results Component Value Date WBC 7.3 08/08/2018 WBC 10.8 (H) 08/07/2018 Tmax:Temp (24hrs), Av.4 ??C, Min:35.5 ??C, Max:37.2 ??C Tc: 37.2 ??C -Patient is afebrile -Perioperative antibiotics: Received cefazolin in the operating room Access: -IVs: 1 peripheral IV -Arterial line: 1 arterial line, can remove. -Central line: No central access Dispo: Transition to PCU or floor Code Status: Full Code Jeanmarie Dunne M.D. PGY 2 [phone] Jr Escobar M.D. - 08/07/2018 4:34 PM CDT SUBJECTIVE Patient's location is [place] [id number] I have seen and examined this patient. I have reviewed imaging studies and laboratory data with the Critical Team. I have discussed patient's management with the critical house staff and nursing. I agree with the documentation from today's date from the critical care service, except where details differ. Briefly this is a 63-year-old female with medical history significant for obesity BMI 39, KEVIN on home BiPAP, asthma, schizophrenia, type 2 diabetes and Left Lung adenocarcinoma who is status post left lung wedge resections. She was extubated after procedure but did require noninvasive ventilation in the PACU. She is transferred to the ICU for further monitoring and management. Upon arrival in the ICU, the patient is awake alert and oriented. Hemodynamically she is stable. OBJECTIVE I have reviewed the current vital sign data as applicable. PHYSICAL EXAM General: A 63-year-old female AAO x 3 Heart: Regular rate and rhythm. Brisk capillary refill. Lungs: Bilaterally air entry. Mildly coarse Abdomen: Soft, Nondistended. DIAGNOSTICS I have reviewed relevant laboratory, imaging, and other diagnostics as applicable. 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 #2 Obesity BMI 39 #3 KEVIN on home BiPAP #4 Asthma #5 Schizophrenia #6 Type 2 diabetes Wean her oxygen requirement down as she tolerates. She uses BiPAP at night and we will continue this. Follow up with CBC electrolytes urine output. Morning chest x-ray. Margin Code: SH3 Linette Albarran R.R.T., L.R.T. - 08/07/2018 12:15 PM CDT Placed patient on her own bipap machine in the PACU with 7L02 oxygen bleed in added. sp02 93% documented in this encounter H&P Notes Jeanmarie Dunne M.D. - 08/07/2018 3:14 PM CDT [facility] Admission HISTORY OF PRESENT ILLNESS Brief Summary: The patient is 63-year-old female who is status who was referred to evaluation due toa left lung mass. She also has a history of asthma on as needed albuterol and montelukast, as well as on BiPAP for sleep-related disorder breathing, as well as obesity. She is noted to have schizophrenia, as well as type 2 diabetes. She does have a long-standing smoking history who quit approximately 13 years ago. Unfortunately a follow-up CT on December last year revealed left upper lobe nodules with cavitation increasing in size, as well as additional nodes. 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 Interval Events: Her airway was considered a Mallampati 3 and she had full range of motion of her neck. A oral area was required for mask, she had an easy intubation with a Parrish 2 blade with a Cormakc/Lehane pain score of 2a. She underwent a thoracoscopy with left-sided wedge resection of her lung. She received 2.1 L of crystalloid, no colloid, and no transfusion. Her estimated blood loss was noted to be 175 mL. She received a total of 250 mcg of fentanyl for pain control. Patient's anesthetic was a general case with inhalational anesthetic, she did require phenylephrine infusion during the case. On arrival to ICU, patient is saturating well on closed face mask. She states she has just a little bit of pain on the left side. She states that this is manageable. She otherwise states that she feelstired and she has been awake since 2:00 a.m.. Continuous Infusions: lactated ringers 20 mL/hr Last Rate: 20 mL/hr (08/07/18 1628) phenylephrine 80 mcg/mL in NaCl 0.9% 250 mL infusion 0.1-1 mcg/kg/min (Dosing Weight) Last Rate: 0.8mcg/kg/min (08/07/18 1025) vasopressin 0.2 Units/mL in NaCl 0.9% 100 mL infusion (PITRESSIN) 0.02-0.06 Units/min Vent Settings: O2 10 L/min Mode Rate Tidal Volume Pressure Support PEEP/CPAC/EPAP FiO2 Peak Inspiratory Pressure Plateau Pressure OBJECTIVE I have reviewed the current vital sign data as applicable to this admission. OBJECTIVE Vital Signs Vitals: 08/07/18 1552 08/07/18 1553 08/07/18 1554 08/07/18 1555 BP: BP Location: Pulse: 106 107 107 107 Resp: (!) 32 20 (!) 38 (!) 33 Temp: TempSrc: SpO2: 98% 98% 98% 98% Weight: Height: Intake & Output Weights for the past 120 hrs (Last 3 readings): Weight 08/07/18 0640 107 kg I/O 08/06 - 08/06 2359 08/07 - 08/07 2359 Crystalloid Bolus 2.5 Maintenance IV 2100 Intermittent Medications 100 Total Intake(mL/kg) 2202.5 (20.6) Urine (mL/kg/hr) 325 Blood 175 Chest Tube 150 Total Output 650 Net +1552.5 DIAGNOSTIC FINDINGS I personally reviewed all radiology and labs from the past 24 hrs. Labs Results from last 7 days Lab Units 08/07/18 1627 08/07/18 1435 08/07/18 1057 WBC x10(9)/L 10.8* -- -- VBGRS HEMOGLOBIN g/dL -- 11.0* 9.8* HEMOGLOBIN g/dL 10.9* -- -- HEMATOCRIT % 34.5* -- -- PLATELETS AUTO x10(9)/L 212 -- -- Results from last 7 days Lab Units 08/07/18 0953 NABS SODIUM mmol/L 142 POTASSIUM mmol/L 4.0 Radiology Dx Chest 1 View Result Date: 08/07/2018 Impression: IMPRESSION: Negative for postoperative purposes. Comparison was made with chest CT dated1 . New left main bronchus intubation. Left apical chest tube. Patchy opacities of the lungs could be a combination of atelectases as well as vascular crowding. Accentuation of the cardiac silhouette due to hypoinflation. PHYSICAL EXAM General appearance: sedated, in no acute distress and cooperative Neurologic: alert, oriented and motor and sensory grossly intact HEENT: normocephalic, without obvious abnormality, conjunctivae/corneas clear and extraocular movements Chest: left sided chest wall tenderness and Chest tube in place on left side. Draining serosanguineous fluid. Incisions noted, covered in dressings are clean dry and intact. There is no induration, erythema, fluctuance, or crepitus. Slight wheeze Heart: Tachycardic, no murmur Abdomen: non-distended, non-tender and soft Extremities: extremities normal, warm and well-perfused Skin: Skin is warm, pink, and dry. Only notable changes are of postoperative in nature in terms of her dressings. ASSESSMENT / PLAN #1 Schizophrenia ([facility]) #2 Diabetes Mellitus Type 2 ([facility]) #3 Asthma Mild Intermittent ([facility]) #4 Obesity Body Mass Index 30-39.9 Adult #5 Apnea Sleep Obstructive #6 Nodule Pulmonary #7 Mass Lung PLAN BY SYSTEM Neurological: -patient has a history of schizophrenia, it appears that her home medications include citalopram 20 mg daily, 450 mg of clozapine nightly, and it appears at 1 point she has been on aripiprazole 10 mg. We will plan to continue patient's Citalopram as well as clozapine. I did confirm with the patient that she does take these medications. -Mentation/Delirium: Admission to the ICU, the patient is slightly sleepy but awake and alert. -Sedation holiday per ICU routine -Neuro checks: per ICU routine -Pain: Pain control will be with scheduled Tylenol, as well as p.r.n. fentanyl and oxycodone. Can consider a fentanyl BARREL LOADER if necessary. -Hold meds: At this time will hold patient's Ambien. -Continue meds: Can order melatonin Pulmonary: Patient is now status post thoracoscopy and left-sided wedge resection of her lung. The patient was successfully extubated following her procedure. Admitted to ICU on closed face mask saturating 98%. -patient has a chest tube in place. Cares of this ordered by thoracic. -Patient uses BiPAP at home, we will continue this -Continue meds: We will continue patient's Advair however we will substitute for 3-0 left, as well as albuterol and her DuoNeb P.r.n.. -continue her fluticasone -we will order a postoperative ABG Lab Results Component Value Date PHART 7.35 08/07/2018 PHART 7.37 08/07/2018 [id number] 50 (H) 08/07/2018 [id number] 48 (H) 08/07/2018 BEART 2 08/07/2018 BEART 2 08/07/2018 Cardiovascular: Cardiovascularly, at it does appear that the patient is on 120 mg of extended release diltiazem daily. -Hemodynamically stable -postoperative lactate -Hold meds: we will resume the diltiazem 120 mg extended release tablet. Renal: It does not appear that the patient has a history of renal disease, point of care creatinine back in April of this year was normal. -we will order postoperative BMP, Calcium, Magnesium, phosphorous -GFR: We will check this with the BMP -Smallwood catheter: Smallwood catheter in place currently necessary I&Os. We will reassess this -Monitor electrolytes, replete PRN -IV fluids: Currently continue -Goal UOP: 0.5 cc/kg/hr CrCl cannot be calculated (Patient's most recent lab result is older than the maximum 7 days allowed.). Intake/Output Summary (Last 24 hours) at 08/07/18 1636 Last data filed at 08/07/18 1522 Gross per 24 hour Intake 2202.5 ml Output 650 ml Net 1552.5 ml GI: No Known issues. -at home is on Prilosec, here we will continue famotidine tablets -Diet: Will do diabetic diet, will advance as tolerated -NG tube: Not indicated -Bowel movements: None since operation -PPI: Home Prilosec -PRN: We will add a bowel regimen with scheduled senokot-s and PRNs as well Endocrine: Patient has a history of type 2 diabetes, she is not insulin requiring. She does take metformin 500 mg daily. -glucose checks with meals and at bedtime. Blood glucose goal of 120-180. -Insulin: Will order sliding scale Lab Results Component Value Date GLUCOSE 133 08/07/2018 Hematological: Preoperatively, patient had a hemoglobin of 9.9. -Intraoperative Hb: It appears that the most recent hemoglobin was 11. She relatively minimal EBL -post-op coags: Fibrinogen, INR/PT, PTT -s/p transfusion: None were required -Anticoagulation: subcu heparin will be appropriate Lab Results Component Value Date HGB 10.9 (L) 08/07/2018 HGB 11.0 (L) 08/07/2018 PLT 212 08/07/2018 Infectious Disease: Lab Results Component Value Date WBC 10.8 (H) 08/07/2018 Tmax:Temp (24hrs), Av.1 ??C, Min:35.5 ??C, Max:36.7 ??C Tc: 36.7 ??C -Patient is afebrile -Perioperative antibiotics: Received cefazolin in the operating room Access: -IVs: 1 peripheral IV -Arterial line: 1 arterial line -Central line: No central access Dispo: ICU cares at this time Code Status: Full Code Jeanmarie Dunne M.D. PGY 2 [phone] Carl Rodriguez M.D. - 08/07/2018 7:27 AM CDT Day of Surgery H&P: Indications for Procedure: The patient was examined and the Pre-op diagnosis and planned procedure remain unchanged History of Present Illness: Reviewed and unchanged from the previous documentation - refer to the prior outpatient note for details. Allergies, Medications, Past Medical and Surgical History: Allergies reviewed and updated as necessary. Medical history reviewed and updated as necessary. Surgical history reviewed and updated as necessary. Medications reviewed and updated as necessary. Physical Exam: General: Alert, oriented, and not in distress HEENT: Grossly Normal Heart: Regular in rate and rhythm Lungs: Clear to Auscultation Abdomen: Soft and non-tender. Musculoskeletal/Extremities: Grossly within normal limits Neurological: Grossly within normal limits Assessment and Plan: Plan Unchanged Chetan Rodriguez M.D. - 08/07/2018 6:27 AM CDT DAY OF SURGERY H&P No interval changes to medical history since last assessed in April. documented in this encounter Consult Notes Yaritza Davila P.T., D.P.T. - 08/09/2018 11:46 AM CDT Physical Therapy Inpatient Evaluation/Treatment SUBJECTIVE Patient's Name: Sarah Reyes Referring/Attending Provider: Fany Lyn M.D. Medical Diagnosis: Nodule Pulmonary [R91.1] Mass Lung [R91.8] Reason for Referral: PT Evaluate and Treat general acute Onset Date: 08/07/18 Payor: MEDICARE / Plan: MEDICARE A AND B / Product Type: Medicare / PERTINENT MEDICAL / SURGICAL HISTORY: Patient Active Problem List Diagnosis ??? 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 Schizophrenia (HCC) ??? Diabetes Mellitus Type 2 (HCC) ??? Edema Localized ??? Other Fci Current Drug Therapy ??? Metabolic Syndrome ??? Asthma Mild Intermittent (HCC) ??? Obesity Body Mass Index 30-39.9 Adult ??? Nonrheumatic Mitral Valve Insufficiency ??? Apnea Sleep Obstructive ??? Nodule Pulmonary ??? Mass Lung Past Surgical History: Procedure Laterality Date ??? BRONCHOSCOPY FLEXIBLE: EBUS TBNA ENDOBRONCHIAL ULTRASOUND NEEDLE ASPIRATION N/A 06/30/2018 Procedure: Bronchoscopy Flexible: Endobronchial Ultrasound Guided Transbronchial Needle Aspiration;Surgeon: Keaton Noe M.D.; Location: [facility] ??? 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 Patient Comments: Minimal pain in left thorax - no rating provided. Agreeable to therapy. Activity Orders Start Ordered 08/08/18 0600 Activity: Up Ad Robyn Until discontinued Comments: Out of bed greater than 8 hours, including 6 or more walks and sitting in chair Question: Activity Level: Answer: Up Ad Robyn 08/07/18 0344 Precautions Other Precautions: fall, impulsive, cognition, respiratory, hx schizophrenia Fall Risk (65 and older) Fall in the last 12 months: No OBJECTIVE SpO2 at rest 95%, after ambulation trial, SpO2 92%. HR 90s to 118 bpm with activity Cognition Safety / Judgment: Addressed, no concerns noted Impulsive: Addressed, no concerns noted Cognition Comments: requires increased time for processing and answering questions Neuro/Integumentary Screen: Neuro Screen: intact sensation bilateral lower extremities General ROM / Strength Screening ROM - Lower Extremity Screen: Addressed, no concerns noted Strength - Lower Extremity Screen: Addressed, no concerns noted Transfer - Sit to Stand # of Assistants: 1 Device: Podium walker Level of Assistance: Supervision/Set-up Comments: cues for anterior weight shift and safe hand placement, close guarding for safety Transfer - Stand to Sit # of Assistants: 1 Level of Assistance: Supervision/Set-up Device: Podium walker Comments: cues for squaring up in front of chair and controlled descent Balance Static Sitting-Balance: Good (Maintains balance without support) Dynamic Sitting-Balance: Good (Maintains balance without support) Static Standing-Balance: Fair (Maintains balance with handheld assistance) Dynamic Standing-Balance: Fair (Maintains balance with handheld assistance) Gait Assessment # of Assistants: 1 Level of Assistance: Minimal assistance Device: Podium walker Distance (m): 25 m Cuing: Verbal, Tactile Quality: Shuffling, Decreased heel strike, Decreased toe off, Increased base of support Assessment of Gait: wide base of support, increased forward flexion on podium, bilateral lower extremities externally rotated Training/Intervention: cues for upright posture and reducing flexion on podium, tactile cues throughgait belt for stability, assisted with podium management Response: increasing dyspnea on exertion, increasing gait deviations with further distance ambulated(HR 118 bpm and SpO2 92%); limited ability to follow cues for upright posture Exercise - Position Seated Exercise: Ankle pumps, Marching, Long arc quads (instructed on completing x5 - recommended completing x3 throughout the day for circulation) Activity Tolerance Endurance: Tolerates less than 10 min exercise with changes in vital signs Patient Education The patient/family educated on safe transfer techniques with functional mobility/activity. Educated patient on the progression of activity with frequent walks with nursing staff throughout the day for improvement towards strength and functional mobility. Discussed continued physical therapy services in the hospital for improvement towards independence. The following coordination of care occurred today: Contacted Patient's nurse regarding discharge/safety recommendations and equipment needs/recommendations The AVS was initiated Patient was left in bedside chair at end of session with call light in reach, all needs met and questions answered. Outcome Measures AM-PAC Inpatient Short Form: AM-PAC Mobility: How much difficulty does the patient currently have??? Turning over in bed (including adjusting bedclothes, sheets and blankets)?: A Little Sitting down on and standing up from a chair with arms (e.g., wheelchair, bedside commode, etc.): A Little Moving from lying on back to sitting on the side of the bed?: A Little AM-PAC Mobility: How much help from another person does the patient currently need??? Moving to and from a bed to a chair: A Little Need to walk in hospital room?: A Little Climbing 3-5 steps with a railing?: A Lot Basic Mobility Raw Score: 17 Basic Mobility Standardized Score: 42.13 Interpretation: Clinicians answer the -[facility] Inpatient Short Form based on observed patient activityand/or clinical judgement (ie. patient can be scored without physically performing each activity) According to scoring guidelines: Those going to home had an average score of 20.1 Those going home with home care had an average score of 17.9 Those going to SNF had an average score of 14 Those going to IRF had an average score of 13.6 Those going to a LTAC had an average score of 11.5 Assessment Barriers to Discharge: Inaccessible home environment Discharge Recommendation: Ongoing skilled therapy recommended in a post-acute setting (As of 08/09: Recommending placement at a facility for rehab until able to complete stairs. Depending on progress with stair negotiation, may be appropriate to discharge home with home health. Unsafe for stair trial during this session. ) From a physical therapy perspective, the level of care above has been recommended for Ms. Reyes after hospital discharge. This level of care is based on her functional abilities during today's session. This may change throughout the hospital course and will be updated as appropriate. Clinical Impression of today's session: Currently, patient presents with impairments including impaired strength, balance, activity tolerance, and limited functional mobility resulting in the following functional deficits: requires assistance for all essential daily functional mobility tasks, requires use of assistive device for ambulation, unsafe to trial stairs, and limited ambulation to within-home distances. Patient demonstrated poor activity tolerance, moderate dyspnea on exertion with ambulating 25m. She is below her baseline for functional mobility, now requiring an assistive device. She was not safe for trial of stairs during this session, will need to trial a full flight to access her bedroom on the second level. At this time, she would best benefit from further rehab at a facility to improve towards her baseline for functional mobility. Will trial at next session. Recommending that patient continue with x3-5 walks per day with podium or front wheeled walker to improve functional strength and cardiovascular endurance. Rehab potential: Ms. Reyes has Good potential to achieve established physical therapy goals within the time frame outlined below. Tiered PT Evaluation Codes: Personal Factors: Needs assistive device, Living situation Comorbidities: cardiopulmonary disease, diabetes mellitus, schizophrenia Examination elements: 4+ Clinical Presentation: Evolving Clinical Decision Making: Moderate: 1-2 complicating factors, 3 eval elements, evolving clinical presentation Functional Goals: PT Inpatient Goals PT Goal #1: Patient will complete bed mobility with modified independence to be safe to discharge home. PT Goal #2: Patient will complete transfers with modified independence to be safe to discharge home. PT Goal #3: Patient will ambulate 50m with least restrictive device with modified independence for safe in home ambulation. PT Goal #4: Patient will complete 14 stairs with supervision to safely access the home. Progress: Improving as expected Plan Patient agrees with the plan of care and goals. Treatment Plan: Plan: Plan of care initiated PT Frequency: 5x/week PT Duration: until goals met or hospital discharge Requires Inpatient Follow-Up: Yes PT - Next Inpatient Appointment: 08/10/18 Plan Comments: progress ambulation with walker, trial stairs Treatment interventions may include: Therapeutic exercise, Therapeutic functional activity, Neuromuscular re- education, Self-care/home management, Gait training Billing: Time Spent with Patient PT Evaluation (min): 10 min Therapeutic Activity (min): 16 min Total Timed Units (min): 16 min Total Treatment Time (min): 26 min Rubia Davila P.T., D.P.T. Brenna Stephen O.T. - 08/08/2018 3:49 PM CDT Occupational Therapy Acute Hospital Inpatient Evaluation/Treatment SUBJECTIVE Patient's Name: Sarah Reyes Referring/Attending Provider: Fany Lyn M.D. Medical Diagnosis: Nodule Pulmonary [R91.1] Mass Lung [R91.8] Reason for Referral: Occupational Therapy Evaluation and Treatment Onset Date: 08/07/18 Payor: MEDICARE / Plan: MEDICARE A AND B / Product Type: Medicare / PERTINENT MEDICAL / SURGICAL HISTORY: Patient Active Problem List Diagnosis ??? 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 Schizophrenia (HCC) ??? Diabetes Mellitus Type 2 (HCC) ??? Edema Localized ??? Other [facility]ci Current Drug Therapy ??? Metabolic Syndrome ??? Asthma Mild Intermittent (HCC) ??? Obesity Body Mass Index 30-39.9 Adult ??? Nonrheumatic Mitral Valve Insufficiency ??? Apnea Sleep Obstructive ??? Nodule Pulmonary ??? Mass Lung Past Surgical History: Procedure Laterality Date ??? BRONCHOSCOPY FLEXIBLE: EBUS TBNA ENDOBRONCHIAL ULTRASOUND NEEDLE ASPIRATION N/A 06/30/2018 Procedure: Bronchoscopy Flexible: Endobronchial Ultrasound Guided Transbronchial Needle Aspiration;Surgeon: Keaton Noe M.D.; Location: [facility] ??? VATS - WEDGE RESECTION LUNG Left 08/07/2018 Procedure: THORACOSCOPY, WEDGE RESECTION LUNG.; Surgeon: Fany Lyn M.D.; Location: [facility] History of Present Illness:s/p L wedge lung rescetion Occupational Profile: Prior Function / Occupational Profile Level of [place]: Independent with ADLs and functional transfers, Needs assistance with homemaking Lives With: Family Receives Help From: Family ADL Assistance: Independent Homemaking Assistance: Needs assistance (sister completes household tasks and superives patient medication management) Driving: Does not drive Home Living Type of Home: House Home Layout: Multi-level, Stairs to alternate level with rails, Bed/bath upstairs (full flight of stairs to upper level) Home Access: Stairs to enter with rails Entrance Stairs-Rails: Both Entrance Stairs-Number of Steps: 5 Bathroom Shower/Tub: Tub/shower unit Bathroom Toilet: Standard Home Living Comments: Patient lives with her sister and [id number] Home Equipment Home Adaptive Equipment: None Bathroom Equipment: Shower chair with back Dominant Hand: Right Family/Caregiver Present: No Activity Orders Start Ordered 08/08/18 0600 Activity: Up Ad Robyn Until discontinued Comments: Out of bed greater than 8 hours, including 6 or more walks and sitting in chair Question: Activity Level: Answer: Up Ad Robyn 08/07/18 1615 Precautions Other Precautions: fall, impulsive, cognition, respiratory, hx schizophrenia Fall Risk (65 and older) Fall in the last 12 months: No OBJECTIVE Vitals monitored throughout session; within normal ranges. Vision-Basic Assessment Current Vision: Wears glasses all the time Activity Tolerance Endurance: Tolerates 10 - 20 min exercise with multiple rests Balance Static Sitting-Balance: Good (Maintains balance without support) Dynamic Sitting-Balance: Fair (Maintains balance with handheld assistance) Static Standing-Balance: Fair (Maintains balance with handheld assistance) Dynamic Standing-Balance: Poor (Requires assistance to maintain balance) Balance Comments: front wheeled walker not present but anticipate patient would benefit from use Hand Function Gross Grasp: Functional General ROM / Strength Screening ROM - Upper Extremity Screen: Addressed, no concerns noted Strength - Upper Extremity Screen: Addressed, no concerns noted Cognition Overall Cognitive Status: Impaired Arousal/Alertness: Delayed responses to stimuli Attention: Impaired Memory: Impaired Orientation: Oriented X4 Following Commands: Follows one step commands with repetition Safety / Judgment: Impaired Problem Solving: Impaired Impulsive: Mildly impulsive Cognition Comments: Continue to assess Current ADL/IADL Function ADL Comments: see AM [facility] Bed Mobility - Supine to Sit # of Assistants: 2 Level of Assistance: Moderate assistance Cuing: Visual, Verbal, Tactile Comments: from [facility] bed, icreasing assist as patient beginning to mobolize prior to listending to therapist cueing and directions. Transfer - Bed, Chair, Wheelchair # of Assistants: 1 (+1 for line management) Method: Stand pivot Device: bilateral forearm assist Level of Assistance: Moderate assistance, Minimal assistance Comments: Patient needing assist for balance, cueing for environmental navigation, and cueing to align with chair prior to sitting and assist for controlled descent Transfers - Toilet # of Assistants: 1 (+1 for line management) Method: Stand pivot Device: bilateral forearm assist Level of Assistance: Moderate assistance, Minimal assistance Comments: Patient needing assist for balance, cueing for environmental navigation, and cueing to align with commode prior to sitting and assist for controlled descent ADL Comments ADL Comments: Facilitated portions of [place] and engaged patient in reality orientation. Educated on role of occupational therapy in the intensive care unit/acute care Communication: The patient's nurse was contacted and patient's status was discussed. Patient was left in bedside chair at end of session with call light in reach, all needs met and questions answered. Outcome Measures Current ADL Status: [facility] Inpatient Short Form: Putting on and taking off regular lower body clothing?: A lot Putting on and taking off regular upper body clothing?: A Little Taking care of personal grooming such as brushing teeth?: A Little Bathing (including washing, rinsing, drying)?: A lot Toileting, which includes using toilet, bedpan, or urinal?: A lot Eating meals?: A Little Daily Activities Raw Score (max 24): 15 Daily Activities Standardized Score: 34.69 Daily Activities CMS 0-100% Score: 56.46 Daily Activities CMS Modifier: CK Interpretation: Clinicians answer the -[facility] Inpatient Short Form based on observed patient activityand/or clinical judgement (ie. patient can be scored without physically performing each activity) According to scoring guidelines: Those going to home had an average score of 20.1 Those going home with home care had an average score of 17.9 Those going to SNF had an average score of 14 Those going to IRF had an average score of 13.6 Those going to a LTAC had an average score of 11.5 Assessment Barriers to Discharge: Decreased caregiver support, Inaccessible home environment Discharge Recommendation: Ongoing skilled therapy recommended in a post-acute setting Clinical Impression: Currently, patient presents with impairments including significant psych history, decreased balance and activity tolerance, poor attention, impulsivity and decreased safety and self awareness resultingin the following functional deficits: decreased safety and independence in activities of daily living. Unable to assess caregiver competency as no caregivers present this date, but anticipate patient will need continue occupational therapy in the post-acute setting. Patient will continue to benefit from skilled occupational therapy to address cognition, decrease caregiver burden, assist in dismissal planning, mitigate fall risk, and maximize safety and independence in activities of daily living and instrumental activities of daily living. ?? Rehab potential: Ms. Reyes has Good potential to achieve established occupational therapy goals within the time frame outlined below. Tiered OT Evaluation Codes: Occupational Profile and History review: Expanded Performance Deficits: 3 - 5 performance deficits Evaluation Complexity: Moderate Functional Goals: OT Goal #1: Patient will complete cognitive testing/activities to assist with safety and dismissal planning. OT Goal #2: Patient will complete toileting process (including transfer, pericares, and clothing management) with modified independence to decrease dependence on caregiver and mazimize functioanl asisstance OT Goal #3: Patient will complete shower with stand by assistance to decrease dependence on caregiver and mazimize functioanl asisstance Progress: Progressing toward goals Plan Patient agrees with the plan of care and goals. Plan: Plan of care initiated OT Frequency: 5x/wk OT Duration: Until goals met or hospital discharge Requires Inpatient Follow-Up: Yes OT - Next Inpatient Appointment: 08/11/18 Plan of care initiated Comments: grooming at sink, Olog/Coglog Treatment interventions may include: Therapeutic exercise, Cognitive skills training, Therapeutic functional activity, Self-care/home management Billing: Time Spent with Patient OT Evaluation (min): 12 min Home Management Training (min): 32 min Time Calculation Total Timed Units (min): 32 min Total Treatment Time (min): 44 min Functional G-code Worksheet Daily Activities Raw Score (max 24): 15 Daily Activities Standardized Score: 34.69 Daily Activities CMS 0-100% Score: 56.46 Daily Activities CMS Modifier: CAROLINA Stephen O.T. Olivia Camilo L.G.SWendy., M.S.W. - 08/08/2018 2:05 PM CDTAssociated Order(s): IP CONSULT TO CARE MANAGEMENT Psychosocial Assessment SUBJECTIVE DEMOGRAPHIC INFORMATION Referral Source: Provider/Service Referral Reason: Discharge Planning Person(s) present during interview: Patient. She appears reliable to interview. Primary care clinic and provider: [facility] Primary Language: Nigerian Manager Utilization Management Services Used: No Legal Information: Legal Decision Maker: Self REASON FOR CONSULT Discharge Planning Disclaimer: The patient was advised regarding the various topics to be interviewed during this evaluation. Patient consented to proceed. The information provided in the assessment is based on review ofthe medical record as well as the face to face interview with the patient. The patient was advised that the content of this interview will be shared with the health care team. It was discussed with thepatient that staff are mandated reporters and they reported understanding. HISTORY OF PRESENT ILLNESS Patient shares that she was admitted to the hospital to have surgery. SOCIAL HISTORY Marital Status / Family / Household Patient is single. She resides with her sister who is a good support. Support Systems: Family members. Primary caregiver: Self Spirituality / Holiness / Culture: No yazidi on file Employment: Unemployed Psychosocial Risk Factors impacting the patient: Mental Health Abuse, Neglect, Maltreatment, Trauma: Current: None reported. Past: None reported. ENVIRONMENTAL SUPPORTS Current Living Situation: Private residence Patient's Home Environment: Two/Multiple Story House Patient is able to ambulate independently within the home. Anticipated modifications to the patient's home environment: None FUNCTIONAL STATUS (ADL's and IADL's) Functional Status: Independent Assistive Devices: None Type of Residence: Private residence Level of Assistance: Independent Dressing: Independent Feeding: Independent Bathing: Independent Grooming: Independent Toileting: Independent Behavior: Oriented Communication: Can write, Talks, Understands speaking, Understands Nigerian, Reads It is anticipated that the patient will need assistance with Transfer to/from Bed, Chair, etc, Mobility, Transportation Use (drive car, use taxi/bus). ASSISTIVE DEVICES Patient has the following equipment: None Patient anticipates potentially needing the following additional equipment: Walker EMPLOYMENT PROGRAMS ANALYST Formal and Informal Resources: Patient shares that she has someone come into the home to assist withher medications. She was not sure who this may be with. She also shared that she thinks she has a case aide through the [facility]. Her sister is her primary support. FINANCES/INSURANCE Primary insurance: MEDICARE A AND B Secondary insurance: N/A Income Information Does the Patient have any Financial Concerns?: No Income Source: Disability (Comment), Social security ADVANCE DIRECTIVES Patient does not have an advanced directive on file. OBJECTIVE MENTAL HEALTH Mental Health History: Patient endorses a history of schizophrenia. She is currently prescribed medications for this. Patient denies any current concerns with her mood. Current Psychological Symptoms: Patient Appearance: Well-groomed Behaviors Observed: Calm, Pleasant Patient Level of Consciousness: Alert and oriented Status of Patient's Memory: Intact Patient Cooperation: Cooperative Patient Mood: Euthymic Patient Affect: Mood-congruent Quality of Patient's Speech: Within normal limits for volume, rate and tone Descriptor of Thought Content: No abnormality Thought Process Descriptor: Intact Anxiety Symptoms: No symptoms of panic Depressive Symptoms: No symptoms of depressions Level of Judgement: Intact Suicide Risk and Safety Risk Assessment: Attempted suicide within last 30 days?: No Substance abuse history or abuse within last 30 days?: No Attempting or threatening suicide?: No Attempting or threatening self-harm?: No Expressing suicidal thoughts without intent?: No Expressing self-harm thoughts without intent?: No Recent evidence of psychiatric disorder?: Yes Response to question indicating hopelessness?: No Isolated from others?: No Mood inconsistent with state of illness?: No Fear of half-way/extended hospitalization?: No Coping with recent loss/disruption in support system?: No Homicidal: Homicidal Risk Current Homicidal Ideation: No SUBSTANCE USE Patient denies current substance use. Current Stressors Patient identifies hospitalization as her primary stressor. Coping Skills/Strengths Premorbid level of function, Support of immediate family ASSESSMENT / PLAN IMPRESSION Social work met with patient to offer support and complete psychosocial assessment. Patient shares that she is doing well and denies any current concerns with her mood. She is currently prescribed psychiatric medications due to history of schizophrenia. She notes that she has someone to assist with her medications at home but is unsure of which agency. She had previously resided in a [facility] but recently decided to move in with her sister in the [facility]. Patient is on disability. She has beenindependent and has not needed any assistance with cares. Patient is unsure of what her needs will be upon discharge but is hopeful to return home with her sister. Patient denies additional questions or concerns at this time. Patient appeared to be very drowsy and had difficulties staying awake throughout the conversation. She appears to be coping appropriately at this time and seems to have good support from her sister. INTERVENTIONS Comprehensive assessment, rapport building, active and reflective listening PLAN 1. Patient unsure of home health care agency she has. Social work will follow up with patient when more alert to complete reconnection 2. Social work will continue to follow for ongoing support and assist with dismissal planning when appropriate Anticipated barriers to the transition of care/plan: none at this time Mehreen Shaikh, M.S.W. 08/08/2018 documented in this encounter Nursing Notes Beatriz Renee R.N. - 08/11/2018 4:39 PM CDT Compromised Skin Integrity ??? Incisions, wounds, or drain sites healing without S/S of infection Adequate for Discharge ??? Skin/Tissue integrity maintained or improved Adequate for Discharge ??? Oral and Nasal mucous membranes remain intact Adequate for Discharge DISCHARGE PLANNING ??? Patient discharge needs identified Adequate for Discharge Incontinence and/or Moisture ??? Skin integrity is maintained or improved Adequate for Discharge INFECTION - ADULT ??? Absence of infection during hospitalization Adequate for Discharge KNOWLEDGE DEFICIT ??? Patient/family/caregiver demonstrates understanding of disease process, treatment plan, medications, and discharge instructions Adequate for Discharge PAIN - ADULT ??? PT VERBALIZES/DEMONSTRATES ADEQUATE COMFORT LEVEL OR BASELINE Adequate for Discharge POTENTIAL OR ACTUAL PRESSURE INJURY-ADULT ??? Manage sensory Perception deficits to maintain and/or improve skin integrity Adequate for Discharge ??? Maintain optimal skin moisture to ensure or improve skin integrity Adequate for Discharge ??? Achieve optimal activity and/or mobility to maintain or improve skin integrity Adequate for Discharge ??? Nutrient intake appropriate for improving, restoring or maintaining skin integrity Adequate for Discharge ??? Minimize friction and/or shear to maintain or improve skin integrity Adequate for Discharge SAFETY ADULT ??? Maintain a safe environment Adequate for Discharge SAFETY ADULT - RISK FOR FALL AND OR FALL INJURY ??? Patient remains free from fall/fall injury Adequate for Discharge SKIN/TISSUE INTEGRITY ??? Skin/Tissue integrity maintained or improved Adequate for Discharge ??? Oral and Nasal mucous membranes remain intact Adequate for Discharge Shift Goals: Clinical Goals for the Shift: Pain management, encourage activity, discharge planning Identify possible barriers to meeting goals/advancing plan of care: none End of Shift Summary: Patient reported adequate pain management with the use of tylenol. All discharge education was completed with the patient and family member. Patient and family member reported confidence in going home with no questions. Transport was called. Madina Garibay R.R.T., L.R.T. - 08/11/2018 9:55 AM CDT Patient is a 63 y.o. female admitted on 08/07/2018 Alert Information: Plan of Care: RT will continue to encourage use of IS and Aerobika. Home bipap checked water chamberfilled. No distress is noted at this time. Principal Problem No Principal Problem: There is no principal problem currently on the Problem List. Please update theProblem List and refresh. Oxygen Therapy $Delivery Method: Room air History Smoking Status ??? Former Smoker ??? Packs/day: 1.00 ??? Years: 25.00 ??? Types: Cigarettes ??? Quit date: 2004 Smokeless Tobacco ??? Never Used Respiratory Assessment Score: 10 No results for input(s): PO2 ART, PCO2 ART, PH ART in the last 24 hours. Skin integrity checked: Skin clean and intact with no areas of redness on the face, nose, neck or ears. Electronically signed by: Madina Garibay R.R.T., L.RYan 08/11/18 9:57 AM Sabrina Morillo R.R.T., FannyRJanay. - 08/10/2018 10:53 PM CDT Patient is a 63 y.o. female admitted on 08/07/2018 Plan of Care: Patient assessed on room air. Breath sounds diminished. SpO2 96%. RT assisted with IS and Aerobika therapy. Patient has a strong productive cough. Patient achieved 1250/1500 ml with IS. Continue to encourage IS, Aerobika, coughing/deep breathing. RT will continue to assist with CPT twicedaily. Patient placed on home bilevel PAP at 2250. Principal Problem Left lung adenocarcinoma s/p left lung wedge resection Oxygen Therapy $Delivery Method: Room air Non-Invasive Support: BPAP/CPAP Interface: Full face mask BPAP/CPAP Interface Size: Medium Patient's Own Equipment: Mask, Tubing, BPAP BPAP/CPAP Mode: Bilevel NPPV IPAP Settin cm H2O NPPV EPAP (CPAP) Settin cm H2O History Smoking Status ??? Former Smoker ??? Packs/day: 1.00 ??? Years: 25.00 ??? Types: Cigarettes ??? Quit date: 2004 Smokeless Tobacco ??? Never Used Respiratory Assessment Score: 10 No results for input(s): PO2 ART, PCO2 ART, PH ART in the last 24 hours. Esvin Savage, R.N. - 08/10/2018 5:12 PM CDT Compromised Skin Integrity ??? Incisions, wounds, or drain sites healing without S/S of infection Progressing ??? Skin/Tissue integrity maintained or improved Progressing ??? Oral and Nasal mucous membranes remain intact Progressing DISCHARGE PLANNING ??? Patient discharge needs identified Progressing Incontinence and/or Moisture ??? Skin integrity is maintained or improved Progressing INFECTION - ADULT ??? Absence of infection during hospitalization Progressing KNOWLEDGE DEFICIT ??? Patient/family/caregiver demonstrates understanding of disease process, treatment plan, medications, and discharge instructions Progressing PAIN - ADULT ??? PT VERBALIZES/DEMONSTRATES ADEQUATE COMFORT LEVEL OR BASELINE Progressing POTENTIAL OR ACTUAL PRESSURE INJURY-ADULT ??? Manage sensory Perception deficits to maintain and/or improve skin integrity Progressing ??? Maintain optimal skin moisture to ensure or improve skin integrity Progressing ??? Achieve optimal activity and/or mobility to maintain or improve skin integrity Progressing ??? Nutrient intake appropriate for improving, restoring or maintaining skin integrity Progressing ??? Minimize friction and/or shear to maintain or improve skin integrity Progressing SAFETY ADULT ??? Maintain a safe environment Progressing SAFETY ADULT - RISK FOR FALL AND OR FALL INJURY ??? Patient remains free from fall/fall injury Progressing SKIN/TISSUE INTEGRITY ??? Skin/Tissue integrity maintained or improved Progressing ??? Oral and Nasal mucous membranes remain intact Progressing Shift Goals: Clinical Goals for the Shift: Patient will remain vitally stable and prepare for discharge home Identify possible barriers to meeting goals/advancing plan of care: None End of Shift Summary: Patient's respiratory status has much improved from yesterday. She was up walking four times during the shift and was stable. She also sat up in the chair the whole day and workedon pulmonary hygiene. Patient does not need oxygen, and should progressing well to discharge home tomorrow. Sabrina Morillo, R.R.T., L.R.T. - 08/10/2018 6:20 AM CDT Nocturnal trend orders in place for patient. RN instructed to place the patient on room air at the beginning of the study and notify the monitoring lab when patient is ready for bed. RN instructed to chart that patient was placed on room air in [facility]. RN notified that lab will call when the patient is to be placed on oxygen if needed. Will follow up with RN around 0500. End of study note: RN stated patient remained on room air with home PAP device for nocturnal oxygen study. Electronically signed by: Sabrina Morillo R.R.T., L.R.T. 08/10/18 6:31 AM Sabrina Morillo R.R.T., Brijesh. - 08/09/2018 10:45 PM CDT Patient is a 63 y.o. female admitted on 08/07/2018 Plan of Care: Patient assessed on room air. RT assisted with Aerobika therapy and IS. Patient achieved 500/1000 ml with incentive spirometer. Patient has a strong, congested cough. Continue to encourage IS, Aerobika, coughing/deep breathing. RT will continue to assist with CPT twice daily. Patient wasplaced on home bilevel PAP at 2049. Nocturnal oxygen study to be completed tonight. Principal Problem Left lung adenocarcinoma s/p left lung wedge resection Oxygen Therapy $Delivery Method: Home CPAP/BPAP O2 bleed in Non-Invasive Support: BPAP/CPAP Interface: Full face mask BPAP/CPAP Interface Size: Medium Patient's Own Equipment: Mask, Tubing, BPAP BPAP/CPAP Mode: Bilevel, Per Home Settings NPPV IPAP Settin cm H2O NPPV EPAP (CPAP) Settin cm H2O History Smoking Status ??? Former Smoker ??? Packs/day: 1.00 ??? Years: 25.00 ??? Types: Cigarettes ??? Quit date: 2004 Smokeless Tobacco ??? Never Used Respiratory Assessment Score: 10 No results for input(s): PO2 ART, PCO2 ART, PH ART in the last 24 hours. Esvin Savage, R.N. - 08/09/2018 5:28 PM CDT Compromised Skin Integrity ??? Incisions, wounds, or drain sites healing without S/S of infection Progressing ??? Skin/Tissue integrity maintained or improved Progressing ??? Oral and Nasal mucous membranes remain intact Progressing DISCHARGE PLANNING ??? Patient discharge needs identified Progressing Incontinence and/or Moisture ??? Skin integrity is maintained or improved Progressing INFECTION - ADULT ??? Absence of infection during hospitalization Progressing KNOWLEDGE DEFICIT ??? Patient/family/caregiver demonstrates understanding of disease process, treatment plan, medications, and discharge instructions Progressing PAIN - ADULT ??? PT VERBALIZES/DEMONSTRATES ADEQUATE COMFORT LEVEL OR BASELINE Progressing POTENTIAL OR ACTUAL PRESSURE INJURY-ADULT ??? Manage sensory Perception deficits to maintain and/or improve skin integrity Progressing ??? Maintain optimal skin moisture to ensure or improve skin integrity Progressing ??? Achieve optimal activity and/or mobility to maintain or improve skin integrity Progressing ??? Nutrient intake appropriate for improving, restoring or maintaining skin integrity Progressing ??? Minimize friction and/or shear to maintain or improve skin integrity Progressing SAFETY ADULT ??? Maintain a safe environment Progressing SAFETY ADULT - RISK FOR FALL AND OR FALL INJURY ??? Patient remains free from fall/fall injury Progressing SKIN/TISSUE INTEGRITY ??? Skin/Tissue integrity maintained or improved Progressing ??? Oral and Nasal mucous membranes remain intact Progressing Shift Goals: Clinical Goals for the Shift: Patient will have adequate pain control, participate in pulmonary hygiene, and ambulate Identify possible barriers to meeting goals/advancing plan of care: None End of Shift Summary: Patient made very good progress through the day. She ambulated in the [place] twice, went to xray twice, got a shower, and sat up in the chair for most of the day. Chest tube was removed by COMMUNITY DEVELOPMENT COORDINATOR in the afternoon. Patient improved from a pulmonary standpoint with much focus on encouraging coughing, deep breathing, and incentive spirometer use. Hoping to discharge home tomorrow. Carolyn Gonzalez R.RElviT., L.R.T. - 08/09/2018 10:02 AM CDT 63 year old female s/p thoraoscopy with secretion retention, Aerobika BID and prn for CPT , needed as per sx request , Hx of KEVIN . Using home bipap . Wean O2 Fernando Mcintyre R.R.T., L.R.T. - 08/08/2018 6:15 PM CDT Patient is a 63 y.o. female admitted on 08/07/2018. History of Asthma and COPD. Alert Information: Plan of Care: Encourage Aerobika use and cough and deep breathe. Manage patient owned BiPAP and assist mask placement as needed. Principal Problem Left Lung adenocarcinoma who is status post left lung wedge resections Oxygen Therapy $Delivery Method: Nasal cannula Non-Invasive Support: BPAP/CPAP Interface: Nasal mask (Wore mask overnight) Patient's Own Equipment: Mask, Tubing, BPAP BPAP/CPAP Mode: Bilevel, Per Home Settings NPPV IPAP Settin cm H2O NPPV EPAP (CPAP) Settin cm H2O Oxygen: 2L/pm bleed-in Arterial Line 08/07/18 Left Radial (Active) Placement Date/Time: 08/07/18 (c) 9231 Hand Hygiene Performed Prior to Insertion: Yes Site Prep: Chlorhexidine (Preferred) Orientation: Left Location: Radial Technique: Anatomical landmarks Insertion attempts: 2 Securement Method: Securement d... History Smoking Status ??? Former Smoker ??? Packs/day: 1.00 ??? Years: 25.00 ??? Types: Cigarettes ??? Quit date: 2004 Smokeless Tobacco ??? Never Used Respiratory Assessment Score: 10 Recent Labs 08/08/18 0054 PO2 ART 75 L PCO2 ART 44 PH ART 7.42 Skin integrity checked: Skin clean and intact with no areas of redness on the face, nose, neck or ears. LiquiCell?? applied to the bridge of the nose. Jeanie Kay R.R.T., L.R.T. - 08/08/2018 4:19 AM CDT Patient is a 63 y.o. female admitted on 08/07/2018 Overnight: 2300 patient placed on home P with 2 LPM bleed in Plan of Care: Assist with home P as needed, wean oxygen as tolerated Principal Problem #1 Schizophrenia (HCC) #2 Diabetes Mellitus Type 2 (HCC) #3 Asthma Mild Intermittent (HCC) #4 Obesity Body Mass Index 30-39.9 Adult #5 Apnea Sleep Obstructive #6 Nodule Pulmonary #7 Mass Lung Oxygen Therapy $Delivery Method: Nasal cannula Arterial Line 08/07/18 Left Radial (Active) Placement Date/Time: 08/07/18 (c) 0863 Hand Hygiene Performed Prior to Insertion: Yes Site Prep: Chlorhexidine (Preferred) Orientation: Left Location: Radial Technique: Anatomical landmarks Insertion attempts: 2 Securement Method: Securement d... History Smoking Status ??? Former Smoker ??? Packs/day: 1.00 ??? Years: 25.00 ??? Types: Cigarettes ??? Quit date: 2004 Smokeless Tobacco ??? Never Used Recent Labs 08/08/18 0054 PO2 ART 75 L PCO2 ART 44 PH ART 7.42 Veronica Ibarra R.R.T., L.R.T. - 08/07/2018 5:07 PM CDT Patient is a 63 y.o. female admitted on 08/07/2018 Alert Information: Plan of Care: Pt seen on 2 L nasal cannula and resting comfortably in bed, continue to assess and monitor while in the ICU. Administer scheduled respiratory medications as ordered. Assist with home PAPplacement at night. Principal Problem ?? #1 Left Lung adenocarcinoma who is status post left lung wedge resections. #2 Obesity BMI 39 #3 KEVIN on home BiPAP #4 Asthma #5 Schizophrenia #6 Type 2 diabetes Oxygen Therapy $Delivery Method: Nasal cannula Arterial Line 08/07/18 Left Radial (Active) Placement Date/Time: 08/07/18 (c) 0829 Hand Hygiene Performed Prior to Insertion: Yes Site Prep: Chlorhexidine (Preferred) Orientation: Left Location: Radial Technique: Anatomical landmarks Insertion attempts: 2 Securement Method: Securement d... History Smoking Status ??? Former Smoker ??? Packs/day: 1.00 ??? Years: 25.00 ??? Types: Cigarettes ??? Quit date: 2004 Smokeless Tobacco ??? Never Used Recent Labs 08/07/18 1435 PO2 ART 70 L PCO2 ART 50 H PH ART 7.35 Skin integrity checked: Skin clean and intact with no areas of redness on the face, nose, neck or ears. LiquiCell?? applied to the bridge of the nose. documented in this encounter OR Notes Op Note - Fany Lyn M.D. - 08/07/2018 8:52 AM CDT FULL OP NOTE Procedures Performed: 1. Right thoracoscopy 2. Therapeutic wedge resection left upper lobe 3. Therapeutic wedge left lower lobe 4. Mediastinal sampling 5. 28 fr chest tube Surgeon(s) and Role: * Fany Lyn M.D. - Primary * Carl Rodriguez M.D. Anesthesia Type: General Pre-Operative Diagnosis: lung nodule. Post-Operative Diagnosis: Same as pre-operative diagnosis Findings: As expected Complications: None Description of Procedure: 1. Right thoracoscopy 2. Therapeutic wedge resection left upper lobe 3. Therapeutic wedge left lower lobe 4. Mediastinal sampling 5. 28 fr chest tube The patient was brought to the operating room in stable condition. She was intubated with a double lumen endotracheal tube. She was then positioned in the right lateral decubitus position in preparation for left chest surgery. Of note, there was significant difficulty positioning the patient and the endotracheal tube due to severe deconditioning. A standard 3 port thoracoscopy was performed. Again we sustained difficulty in maintaining adequate oxygenation due to severe deconditioning and limited reserve when the left lung was deflated. There was also limited space in the chest to adequately perform surgery as the patient would not tolerate single lung ventilation without the use of CPAP to the left lung. Therefore we extended our utility incision slightly to allow a small chest retractor. We were able to visualize and palpate both nodules. The lower lobe nodule was endoscopically stapled without difficulty and placed in a specimen bag to prevent port site contamination. Pathology confirmed granuloma. The upper lobe nodule was quite deep and did approach the hilum. There was some concern here that this would be a fairly deep wedge and compromise significant lung tissue in a patient that was already severely deconditioned. As such, we stapled just around the nodule and excised this in a similar fashion. Pathology reported a very close staple margin but for the reasons mentioned above, there was limited room to excise any more tissue and the patient would not have tolerated a lobectomy at this juncture. Due to poor visualization, frequent hypoxemia and a no room in the thoracic cavity, we did a limited mediastinal sampling and took station 5 lymph nodes which were negative for tumor. At this point we elected to terminate the procedure here for safety reasons. A single 28 portuguese chest tube was directed towards the apex. The lung was manually insufflated. The port sites were closed. The patient was transported to the recovery room in stable condition. Specimens ID Type Source Tests Collected by Time A : Left Upper Lobe Wedge of Lung Tissue Lung, Left Upper Lobe SURGICAL PATHOLOGY, FR[facility]ZEN LAB Fany Lyn M.D. 08/07/2018 1013 B : Station 5 Lymph Node ( 2 nodes) Tissue Lymph Node SURGICAL PATHOLOGY, Fany Fernandez M.D. 08/07/2018 1015 C : Left Lower Lobe wedge of lung Tissue Lung, Left Lower Lobe SURGICAL PATHOLOGY, [facility] Fany Lyn M.D. 08/07/2018 1027 Drains [REMOVED] Chest Tube 1 Pleural (Removed) Function To water seal 08/09/2018 8:20 AM Chest Tube Air Leak No 08/09/2018 8:20 AM Patency Intervention Other (Comment) 08/08/2018 8:00 AM Drainage Description Serosanguineous 08/09/2018 8:20 AM Dressing Status Clean;Dry;Intact 08/09/2018 9:30 PM Site Intervention Dressing reinforced 08/09/2018 6:30 PM Site Assessment Other (Comment) 08/08/2018 4:00 PM Surrounding Skin Unable to view 08/08/2018 11:00 PM Output (mL) 25 mL 08/09/2018 11:00 AM [REMOVED] Indwelling Urinary Catheter Non-latex 16 Fr. (Removed) Site Assessment Clean;Skin intact 08/08/2018 4:00 PM Collection Container Standard drainage bag 08/08/2018 11:00 PM Securement Method Securing device 08/08/2018 4:00 PM Output (mL)- Urine 50 mL 08/09/2018 6:00 AM Estimated Blood Loss 175 mL Implants * No implants in log * Fany Lyn M.D. Brief Op Note - Carl Rodriguez M.D. - 08/07/2018 8:52 AM CDT BRIEF OP NOTE Procedure(s) (LRB): THORACOSCOPY, WEDGE RESECTION LUNG. (Left) Surgeon(s) and Role: * Fany Lyn M.D. - Primary * Carl Rodriguez M.D. Anesthesia Type: General Pre-Operative Diagnosis: lung nodule. 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 08/07/2018 1013 B : Station 5 Lymph Node ( 2 nodes) Tissue Lymph Node SURGICAL PATHOLOGY, [facility] Fany Lyn M.D. 08/07/2018 1015 C : Left Lower Lobe wedge of lung Tissue Lung, Left Lower Lobe SURGICAL PATHOLOGY, [facility] Fany Lyn M.D. 08/07/2018 1027 Drains Chest Tube 1 Pleural (Active) Indwelling Urinary Catheter Non-latex 16 Fr. (Active) Estimated Blood Loss No blood loss documented. Implants * No implants in log * Carl Rodriguez M.D. documented in this encounter Miscellaneous Notes Hospital Course - Shani Martin APRN, C.N.P. - 08/11/2018 1:15 PM CDT Ms. Reyes tolerated her procedure well. In the postoperative area should require noninvasive ventilation and was therefore transferred to the ICU for closer monitoring. She was able to be transferred to the thoracic surgery PCU the following day. Her chest tube was removed on August 09, 2018. At the time of discharge she was tolerating a regular diet and her pain was well controlled. documented in this encounter Plan of Treatment Scheduled Referrals Name Type Priority Associated Diagnoses Order S [facility] Thoracic Surgery Outpatient Referral Routine Malignant Neoplas m Of Expected: Post Op (clinic) Lung Adenocarcinoma 08/27 Left (HCC) (Approximate), Expires: 08/11/2021 documented as of this encounter Procedures Procedure Name Priority Date/Time Associated Comments Diagnosis GLUCOSE POCT, B Routine 08/11/2018 12:01 Results for PM CDT this procedure are in the results section. GLUCOSE POCT, B Routine 08/11/2018 9:23 Results f or AM CDT this procedure are in the results section. GLUCOSE POCT, B Routine 08/11/2018 6:10 Results f or AM CDT this procedure are in the results section. GLUCOSE POCT, B Routine 08/10/2018 10:20 Results for PM CDT this procedure are in the results section. GLUCOSE POCT, B Routine 08/10/2018 6:19 Results f or PM CDT this procedure are in the results section. GLUCOSE POCT, B Routine 08/10/2018 12:12 Results for PM CDT this procedure are in the results section. GLUCOSE POCT, B Routine 08/10/2018 8:06 Results f or AM CDT this procedure are in the results section. ADULT OXYGEN THERAPY Routine 08/10/2018 8:00 AM CDT CHEST PHYSIOTHERAPY Routine 08/10/2018 7:00 AM CDT GLUCOSE POCT, B Routine 08/09/2018 9:32 Results f or PM CDT this procedure are in the results section. ADULT OXYGEN THERAPY Routine 08/09/2018 8:01 PM CDT NOCTURNAL OXYGEN Routine 08/09/2018 7:38 STUDY - RT PM CDT CHEST PHYSIOTHERAPY Routine 08/09/2018 7:00 PM CDT GLUCOSE POCT, B Routine 08/09/2018 5:49 Results f or PM CDT this procedure are in the results section. DX CHEST AP OR PA AND RAD - Timed (for 08/09/2018 3:10 Results for LATERAL 2 VIEWS specific PM CDT this procedu re dates/times) are in the results section. GLUCOSE POCT, B Routine 08/09/2018 12:31 Results for PM CDT this procedure are in the results section. DX CHEST AP OR PA AND RAD - Routine 08/09/2018 10:01 R esults for LATERAL 2 VIEWS (most inpatients AM CDT this pro cedure and all are in the outpatients) results section. CHEST PHYSIOTHERAPY Routine 08/09/2018 10:00 AM CDT CHEST PHYSIOTHERAPY Routine 08/09/2018 10:00 AM CDT GLUCOSE POCT, B Routine 08/09/2018 8:40 Results f or AM CDT this procedure are in the results section. ADULT OXYGEN THERAPY Routine 08/09/2018 8:01 AM CDT ADULT OXYGEN THERAPY Routine 08/08/2018 8:01 PM CDT GLUCOSE POCT, B Routine 08/08/2018 4:53 Results f or PM CDT this procedure are in the results section. GLUCOSE POCT, B Routine 08/08/2018 12:37 Results for PM CDT this procedure are in the results section. ADULT OXYGEN THERAPY Routine 08/08/2018 8:00 AM CDT GLUCOSE POCT, B Routine 08/08/2018 7:54 Results f or AM CDT this procedure are in the results section. DX CHEST PORTABLE 1 RAD - Routine 08/08/2018 5:45 Resu lts for VIEW (most inpatients AM CDT this proced ure and all are in the outpatients) results section. PATIENT STATUS Routine 08/08/2018 12:54 Results f or AM CDT this procedure are in the results section. ABG W/COOX Routine 08/08/2018 12:54 Results for AM CDT this procedure are in the results section. CBC WITH Routine 08/08/2018 12:49 Results for DIFFERENTIAL, B AM CDT this procedu re are in the results section. BASIC METABOLIC Routine 08/08/2018 12:49 Results for PANEL, S/P AM CDT this procedure are in the results section. GLUCOSE POCT, B Routine 08/07/2018 10:05 Results for PM CDT this procedure are in the results section. PULSE OXIMETRY, Routine 08/07/2018 8:01 CONTINUOUS PM CDT ADULT OXYGEN THERAPY Routine 08/07/2018 8:01 PM CDT GLUCOSE POCT, B Routine 08/07/2018 5:53 Results f or PM CDT this procedure are in the results section. IV PLACEMENT ATTEMPT STAT 08/07/2018 4:40 Resu lts for PM CDT this procedure are in the results section. BASIC METABOLIC STAT 08/07/2018 4:28 Results f or PANEL, S/P PM CDT this procedure are in the results section. PH BLOOD GAS STAT 08/07/2018 4:27 Results for PM CDT this procedure are in the results section. ACTIVATED PARTIAL STAT 08/07/2018 4:27 Results for THROMBOPLASTIN TIME PM CDT this pro cedure (APTT), P are in the results section. PROTHROMBIN TIME STAT 08/07/2018 4:27 Results for (PT), P PM CDT this procedure are in the results section. FIBRINOGEN, P STAT 08/07/2018 4:27 Results for PM CDT this procedure are in the results section. CBC WITHOUT STAT 08/07/2018 4:27 Results for DIFFERENTIAL, B PM CDT this procedu re are in the results section. PHOSPHORUS STAT 08/07/2018 4:27 Results for (INORGANIC), S PM CDT this procedur e are in the results section. MAGNESIUM, S STAT 08/07/2018 4:27 Results for PM CDT this procedure are in the results section. LACTATE, B/P STAT 08/07/2018 4:27 Results for PM CDT this procedure are in the results section. CALCIUM, IONIZED, S/B STAT 08/07/2018 4:27 Res ults for PM CDT this procedure are in the results section. PULSE OXIMETRY, Routine 08/07/2018 4:15 CONTINUOUS PM CDT PULSE OXIMETRY, Routine 08/07/2018 4:15 CONTINUOUS PM CDT ADULT OXYGEN THERAPY Routine 08/07/2018 4:15 PM CDT ADULT OXYGEN THERAPY Routine 08/07/2018 4:15 PM CDT RESPIRATORY ASSESS Routine 08/07/2018 4:15 AND TREAT PM CDT PULSE OXIMETRY, Routine 08/07/2018 4:15 CONTINUOUS PM CDT GLUCOSE POCT, B Routine 08/07/2018 3:52 Results f or PM CDT this procedure are in the results section. GLUCOSE POCT, B Routine 08/07/2018 2:44 Results f or PM CDT this procedure are in the results section. PATIENT STATUS STAT 08/07/2018 2:35 Results fo r PM CDT this procedure are in the results section. ABG W/COOX STAT 08/07/2018 2:35 Results for PM CDT this procedure are in the results section. GLUCOSE POCT, B Routine 08/07/2018 12:42 Results for PM CDT this procedure are in the results section. DX CHEST 1 VIEW RAD - Routine 08/07/2018 11:32 Results for (most inpatients AM CDT this proced ure and all are in the outpatients) results section. ABG W/COOX STAT 08/07/2018 10:57 Results for AM CDT this procedure are in the results section. GLUCOSE, WHOLE BLOOD STAT 08/07/2018 10:57 Res ults for AM CDT this procedure are in the results section. SURGICAL PATHOLOGY, Routine 08/07/2018 10:13 Resu lts for [facility] AM CDT this procedure are in the results section. SODIUM, B STAT 08/07/2018 9:53 Results for AM CDT this procedure are in the results section. ABG W/COOX STAT 08/07/2018 9:53 Results for AM CDT this procedure are in the results section. POTASSIUM, B STAT 08/07/2018 9:53 Results for AM CDT this procedure are in the results section. GLUCOSE, WHOLE BLOOD STAT 08/07/2018 9:53 Resu lts for AM CDT this procedure are in the results section. CALCIUM, IONIZED, S/B STAT 08/07/2018 9:53 Res ults for AM CDT this procedure are in the results section. THORACOSCOPY - WEDGE 08/07/2018 7:08 lung nodule. RESECTION LUNG AM CDT GLUCOSE POCT, B Routine 08/07/2018 6:53 Results f or AM CDT this procedure are in the results section. documented in this [...] APRN, C.N.P. IMG DIAGNOSTIC IMAGIN G PROCEDURES Glucose, POCT (08/11/2018 12:01 PM CDT) Analysis Performed At Patho logist Time Signature Glucose, POCT, 118 70 - 140 08/11/2018 [facility] B mg/dL 12:14 PM CDT SERVICES Site Capillary 08/11/2018 [facility] 12:14 PM CDT SERVICES Specimen Anatomical Collection Method Collection Time Receive d Time (Source) Location / / Volume Laterality Blood 08/11/2018 12:01 08/11/2018 PM CDT 12:14 PM CDT Unknown Provider LAB POCT ORDERABLES-MANUAL Performing Organization Address City/[facility]/ZIP Code Phon e Number [facility] [address] [place] [address] Glucose, POCT (08/11/2018 9:23 AM CDT) Analysis Performed At Patho logist Time Signature Glucose, POCT, 127 70 - 140 08/11/2018 [facility] B mg/dL 12:14 PM CDT SERVICES Site Capillary 08/11/2018 [facility] 12:14 PM CDT SERVICES Specimen Anatomical Collection Method Collection Time Receive d Time (Source) Location / / Volume Laterality Blood 08/11/2018 9:23 AM 9 CDT 12:14 PM CDT Unknown Provider LAB POCT ORDERABLES-MANUAL Performing Organization Address City/State/ZIP Code Phon e Number [facility] [address] [place] [address] Glucose, POCT (08/11/2018 6:10 AM CDT) Analysis Performed At Patho logist Time Signature Glucose, POCT, 124 70 - 140 08/11/2018 [facility] B mg/dL 6:30 AM CDT SERVICES Site Capillary 08/11/2018 [facility] 6:30 AM CDT SERVICES Last Intake 3-4 hours 08/11/2018 [facility] 6:30 AM CDT SERVICES Specimen Anatomical Collection Method Collection Time Receive d Time (Source) Location / / Volume Laterality Blood 08/11/2018 6:10 AM 9 6:30 CDT AM CDT Unknown Provider LAB POCT ORDERABLES-MANUAL Performing Organization Address City/[facility] Code Phon e Number [facility] [address] [place] [address] Glucose, POCT (08/10/2018 10:20 PM CDT) P athologist Signature Glucose, POCT, 126 70 - 140 08/10/2018 [facility] B mg/dL 10:27 PM CDT SERVICES Specimen Anatomical Collection Method Collection Time Receive d Time (Source) Location / / Volume Laterality Blood 08/10/2018 10:20 08/10/2018 PM CDT 10:27 PM CDT Unknown Provider LAB POCT ORDERABLES-MANUAL Performing Organization Address City/[facility] Code Phon e Number [facility] [address] [place] [address] Glucose, POCT (08/10/2018 6:19 PM CDT) Analysis Performed At Patho logist Time Signature Glucose, POCT, 99 70 - 140 08/10/2018 [facility] B mg/dL 6:23 PM CDT SERVICES Site Capillary 08/10/2018 [facility] 6:23 PM CDT SERVICES Last Intake > 4 hours 08/10/2018 [facility] 6:23 PM CDT SERVICES Specimen Anatomical Collection Method Collection Time Receive d Time (Source) Location / / Volume Laterality Blood 08/10/2018 6:19 PM 9 6:24 CDT PM CDT Unknown Provider LAB POCT ORDERABLES-MANUAL Performing Organization Address City/State/ZIP Code Phon e Number [facility] [address] [place] [address] (ABNORMAL) Glucose, POCT (08/10/2018 12:12 PM CDT) Analysis Performed At Patho logist Time Signature Glucose, POCT, 147 (H) 70 - 140 08/10/2018 [facility] B mg/dL 12:15 PM CDT SERVICES Site Capillary 08/10/2018 [facility] 12:15 PM CDT SERVICES Last Intake 3-4 hours 08/10/2018 [facility] 12:15 PM CDT SERVICES Specimen Anatomical Collection Method Collection Time Receive d Time (Source) Location / / Volume Laterality Blood 08/10/2018 12:12 08/10/2018 PM CDT 12:15 PM CDT Unknown Provider LAB POCT ORDERABLES-MANUAL Performing Organization Address City/[facility] Code Phon e Number [facility] [address] [place] [address] Glucose, POCT (08/10/2018 8:06 AM CDT) Analysis Performed At Patho logist Time Signature Glucose, POCT, 119 70 - 140 08/10/2018 [facility] B mg/dL 8:12 AM CDT SERVICES Site Capillary 08/10/2018 [facility] 8:12 AM CDT SERVICES Last Intake > 4 hours 08/10/2018 [facility] 8:12 AM CDT SERVICES Specimen Anatomical Collection Method Collection Time Receive d Time (Source) Location / / Volume Laterality Blood 08/10/2018 8:06 AM 9 8:12 CDT AM CDT Unknown Provider LAB POCT ORDERABLES-MANUAL Performing Organization Address City/[facility] Phon e Number [facility] [address] [place] [address] (ABNORMAL) Glucose, POCT (08/09/2018 9:32 PM CDT) Analysis Performed At Patho logist Time Signature Glucose, POCT, 142 (H) 70 - 140 08/09/2018 [facility] B mg/dL 9:36 PM CDT SERVICES Site Capillary 08/09/2018 [facility] 9:36 PM CDT SERVICES Specimen Anatomical Collection Method Collection Time Receive d Time (Source) Location / / Volume Laterality Blood 08/09/2018 9:32 PM 9 9:37 CDT PM CDT Unknown Provider LAB POCT ORDERABLES-MANUAL Performing Organization Address City/State/ZIP Code Phon e Number [facility] [address] [place] [address] Glucose, POCT (08/09/2018 5:49 PM CDT) Analysis Performed At Patho logist Time Signature Glucose, POCT, 115 70 - 140 08/09/2018 [facility] B mg/dL 5:59 PM CDT SERVICES Site Capillary 08/09/2018 [facility] 5:59 PM CDT SERVICES Last Intake > 4 hours 08/09/2018 [facility] 5:59 PM CDT SERVICES Specimen Anatomical Collection Method Collection Time Receive d Time (Source) Location / / Volume Laterality Blood 08/09/2018 5:49 PM 9 5:59 CDT PM CDT Unknown Provider LAB POCT ORDERABLES-MANUAL Performing Organization Address City/[facility]/ZIP Code Phon e Number [facility] [address] [place] [address] DX Chest AP or PA and Lateral 2 Views (08/09/2018 3:10 PM CDT) Anatomical Region Laterality Modality Chest, Thoracic RST LOS, Thoracic ARZ LOS, Thoracic N/A Digital Radiography FLA LOS Specimen (Source) Anatomical Collection Method Collection Time Re ceived Time Location / / Volume Laterality 08/09/2018 3:18 PM CDT Impressions 08/09/2018 3:28 PM CDT IMPRESSION: Compared to radiograph 08/09/2018. Inter gerardo removal of the left chest tube. Stable small left apical and lateral pne umothorax. Stable moderate cardiac enlargement. Tortuous calcified aorta. S ubsegmental atelectasis in the bilateral lower lobes. Slightly increased accentua susi bilateral pulmonary vascularity and mild pulmonary edema. Postoperative begum ges of pulmonary wedge resection on the left. Moderate amount of stool in the co jazmine. Degenerative changes in the spine. Narrative 08/09/2018 3:28 PM CDT EXAM: ??DX CHEST AP OR PA AND LATERAL 2 VIEWS Procedure Note Isiah Vasquez M.B.B.S. MBogdan. - EXAM: DX CHEST AP OR PA AND LATERAL 2 EWS IMPRESSION: Compared to radiograph 08/09/2018. Inter gerardo removal of the left chest tube. Stable small left apical and lateral pne umothorax. Stable moderate cardiac enlargement. Tortuous calcified aorta. S ubsegmental atelectasis in the bilateral lower lobes. Slightly increased accentua susi bilateral pulmonary vascularity and mild pulmonary edema. Postoperative begum ges of pulmonary wedge resection on the left. Moderate amount of stool in the co jazmine. Degenerative changes in the spine. Madina Nieves APRN, C.N.P. IMG DIAGNOSTIC IMAGING [place] OCEDURES Glucose, POCT (08/09/2018 12:31 PM CDT) Analysis Performed At Patho logist Time Signature Glucose, POCT, 132 70 - 140 08/09/2018 [facility] B mg/dL 12:33 PM CDT SERVICES Site Capillary 08/09/2018 [facility] 12:33 PM CDT SERVICES Last Intake > 4 hours 08/09/2018 [facility] 12:33 PM CDT SERVICES Specimen Anatomical Collection Method Collection Time Receive d Time (Source) Location / / Volume Laterality Blood 08/09/2018 12:31 08/09/2018 PM CDT 12:33 PM CDT Unknown Provider LAB POCT ORDERABLES-MANUAL Performing Organization Address City/State/ZIP Code Phon e Number [facility] [address] [place] [address] DX Chest AP or PA and Lateral 2 Views (08/09/2018 10:01 AM CDT) Anatomical Region Laterality Modality Chest, Thoracic RST LOS, Thoracic ARZ LOS, Thoracic N/A Digital Radiography FLA LOS Specimen (Source) Anatomical Collection Method Collection Time Re ceived Time Location / / Volume Laterality 08/09/2018 10:06 AM CDT Impressions 08/09/2018 10:07 AM CDT IMPRESSION: ??Scattered postoperative changes in the left lung with left chest tube in place. Tiny left apical pneumoth orax. Infiltrates and atelectasis about the left-sided staple lines. Subsegmenta l atelectasis right base. Tortuous aorta. Degenerative changes thoracic spi ne. Thoracolumbar curve. No significant change since yesterday. Narrative 08/09/2018 10:07 AM CDT EXAM: ??DX CHEST AP OR PA AND LATERAL 2 VIEWS Procedure Note Hugh Paige M.D. - 08/09/2018Format ting of this note might be different from the original. EXAM: DX CHEST AP OR PA AND LATERAL 2 EWS IMPRESSION: Scattered postoperative begum ges in the left lung with left chest tube in place. Tiny left apical pneumoth orax. Infiltrates and atelectasis about the left-sided staple lines. Subsegmenta l atelectasis right base. Tortuous aorta. Degenerative changes thoracic spi ne. Thoracolumbar curve. No significant change since yesterday. Arabella T Jaiden REESE C.N.P., M.S.N. IMG DIAGNOSTIC I MAGING PROCEDURES Glucose, POCT (08/09/2018 8:40 AM CDT) Analysis Performed At Patho logist Time Signature Glucose, POCT, 137 70 - 140 08/09/2018 [facility] B mg/dL 8:53 AM CDT SERVICES Site Capillary 08/09/2018 [facility] 8:53 AM CDT SERVICES Last Intake > 4 hours 08/09/2018 [facility] 8:53 AM CDT SERVICES Specimen Anatomical Collection Method Collection Time Receive d Time (Source) Location / / Volume Laterality Blood 08/09/2018 8:40 AM 9 8:54 CDT AM CDT Unknown Provider LAB POCT ORDERABLES-MANUAL Performing Organization Address City/State/ZIP Code Phon e Number [facility] [address] [place] [address] Glucose, POCT (08/08/2018 4:53 PM CDT) Analysis Performed At Patho logist Time Signature Glucose, POCT, 121 70 - 140 08/08/2018 [facility] B mg/dL 4:55 PM CDT SERVICES Site ARTLINE 08/08/2018 [facility] 4:55 PM CDT SERVICES Last Intake 2-3 hours 08/08/2018 [facility] 4:55 PM CDT SERVICES Specimen Anatomical Collection Method Collection Time Receive d Time (Source) Location / / Volume Laterality Blood 08/08/2018 4:53 PM 9 4:56 CDT PM CDT Unknown Provider LAB POCT ORDERABLES-MANUAL Performing Organization Address [facility]/ZIP [facility] Phon e Number [facility] [address] [place] [address] (ABNORMAL) Glucose, POCT (08/08/2018 12:37 PM CDT) Analysis Performed At Patho logist Time Signature Glucose, POCT, 143 (H) 70 - 140 08/08/2018 [facility] B mg/dL 12:39 PM CDT SERVICES Site Capillary 08/08/2018 [facility] 12:39 PM CDT SERVICES Last Intake 2-3 hours 08/08/2018 [facility] 12:39 PM CDT SERVICES Specimen Anatomical Collection Method Collection Time Receive d Time (Source) Location / / Volume Laterality Blood 08/08/2018 12:37 08/08/2018 PM CDT 12:39 PM CDT Unknown Provider LAB POCT ORDERABLES-MANUAL Performing Organization Address [facility]/ZIP [facility] Phon e Number [facility] [address] [place] [address] Glucose, POCT (08/08/2018 7:54 AM CDT) P athologist Signature Glucose, POCT, 132 70 - 140 08/08/2018 [facility] B mg/dL 7:56 AM CDT SERVICES Site ARTLINE 08/08/2018 [facility] 7:56 AM CDT SERVICES Specimen Anatomical Collection Method Collection Time Receive d Time (Source) Location / / Volume Laterality Blood 08/08/2018 7:54 AM 9 7:56 CDT AM CDT Unknown Provider LAB POCT ORDERABLES-MANUAL Performing Organization Address City/[facility] Phon e Number [facility] [address] [place] [address] DX Chest Portable 1 View (08/08/2018 5:45 AM CDT) Anatomical Region Laterality Modality Chest, Thoracic RST LOS, Thoracic ARZ LOS, Thoracic N/A Digital Radiography FLA LOS Specimen (Source) Anatomical Collection Method Collection Time Re ceived Time Location / / Volume Laterality 08/08/2018 6:01 AM CDT Impressions 08/08/2018 6:02 AM CDT IMPRESSION: ??Since 08/07/2018 the ETT has been. Stable postoperative change in the left lung with multiple suture lines in the left chest tube. Lung volumes are low. Aeration has improved with patc hy residual bilateral opacities, could represent some combination of edema, ate lectasis or consolidation. No significant pleural effusion. No pneumot horax. Narrative 08/08/2018 6:02 AM CDT EXAM: ??DX CHEST PORTABLE 1 VIEW Procedure Note Adele Floyd M.D. - 08/08/2018Fo rmatting of this note might be different from the original. EXAM: DX CHEST PORTABLE 1 VIEW IMPRESSION: Since 08/07/2018 the ETT has been. Stable postoperative change in the left lung with multiple suture lines in the left chest tube. Lung volumes are low. Aeration has improved with patc hy residual bilateral opacities, could represent some combination of edema, ate lectasis or consolidation. No significant pleural effusion. No pneumot horax. Jonny Aguirre M.D. IMG DIAGNOSTIC IMAGING PROCE RUST Patient Status (08/08/2018 12:54 AM CDT) athologist Signature FIO2 0.21 0.21=AIR 08/08/2018 [facility] 12:54 AM CDT [facility] Device NPAP 08/08/2018 [facility] 12:54 AM CDT [facility] Spont. 18 08/08/2018 [facility] breaths/min 12:54 AM T [facility] Specimen Anatomical Collection Method Collection Time Receive d Time (Source) Location / / Volume Laterality Blood 08/08/2018 12:54 08/08/2018 AM CDT 12:54 AM CDT Jeanmarie Dunne M.D. LAB BLOOD NON ADD-ON Performing Organization Address City/State/ZIP Code Phon e Number [facility] [address] [place], [place] [address] [facility] (ABNORMAL) Blood Gas with Coox, Arterial (08/08/2018 12:54 AM CDT) [facility] Method Time Signature pO2 75 (L) 83 - 108 08/08/2018 [facility] mm Hg 12:57 AM CDT [facility] pCO2 44 32 - 45 08/08/2018 [facility] mm Hg 12:57 AM CDT [facility] pH 7.42 7.35 - 08/08/2018 [facility] 7.45 pH 12:57 AM CDT [facility] Base Excess 4 (H) -2 - 3 08/08/2018 [facility] mmol/L 12:57 AM CDT [facility] HCO3 28 (H) 22 - 26 08/08/2018 [facility] mmol/L 12:57 AM CDT [facility] Hemoglobin, B 10.3 (L) 11.6 - 08/08/2018 [facility] 15.0 g/dL 12:57 AM CDT [facility] O2Hb 93.2 (L) 94.0 - 08/08/2018 [facility] 98.0 % 12:57 AM CDT [facility] COHb 2.1 <3.0 % 08/08/2018 [facility] 12:57 AM CDT [facility] MetHb <1.0 <1.5 % 08/08/2018 [facility] 12:57 AM CDT [facility] CtO2 13.6 (L) 18.0 - 08/08/2018 [facility] [place] 21.0 vol 12:57 AM CDT [facility] Arterial Art Line 08/08/2018 [facility] [place] Sample Site 12:57 AM CDT [facility] Specimen Anatomical Collection Method Collection Time Receive d Time (Source) Location / / Volume Laterality Blood (Blood, 08/08/2018 12:54 08/08/2018 Arterial) AM CDT 12:50 AM CDT Jeanmarie Dunne M.D. LAB BLOOD NON ADD-ON Performing Organization Address City/State/ZIP Code Phon e Number [facility] [place] [facility] - [address] [place], [place] [address] [facility] (ABNORMAL) CBC with Differential, Blood (08/08/2018 12:49 AM CDT) [facility] gist Method Time Signature Hemoglobin 10.2 (L) 11.6 - 08/08/2018 [facility] [place] 15.0 g/dL 1:17 AM CDT [facility]ATORIES [facility] Hematocrit 32.5 (L) 35.5 - 08/08/2018 [facility] [place] 44.9 % 1:17 AM CDT [facility] Erythrocytes 3.64 (L) 3.92 - 08/08/2018 [facility] [place] 5.13 1:17 AM CDT LABORATORIES - x10(12)/L [facility] MCV 89.3 78.2 - 08/08/2018 [facility] 97.9 fL 1:17 AM CDT LABORATORIES - [facility] RBC Distrib 14.0 12.2 - 08/08/2018 [facility] [place] Width 16.1 % 1:17 AM CDT LABORATORIES - [facility] Platelet Count 223 157 - 371 08/08/2018 [facility] x10(9)/L 1:17 AM CDT LABORATORIES - [facility] Leukocytes 7.3 3.4 - 9.6 08/08/2018 [facility] [place] x10(9)/L 1:17 AM CDT LABORATORIES - [facility] Neutrophils 6.40 1.56 - 08/08/2018 [facility] [place] 6.45 1:17 AM CDT LABORATORIES - x10(9)/L [facility] Lymphocytes 0.48 (L) 0.95 - 08/08/2018 [facility] [place] 3.07 1:17 AM CDT LABORATORIES - x10(9)/L [facility] Monocytes 0.42 0.26 - 08/08/2018 [facility] [place] 0.81 1:17 AM CDT LABORATORIES - x10(9)/L [facility] Eosinophils <0.03 0.03 - 08/08/2018 [facility] [place] 0.48 1:17 AM CDT LABORATORIES - x10(9)/L [facility] Basophils <0.03 0.01 - 08/08/2018 [facility] [place] 0.08 1:17 AM CDT LABORATORIES - x10(9)/L [facility] Specimen Anatomical Collection Method Collection Time Receive d Time (Source) Location / / Volume Laterality Blood (Blood, 08/08/2018 12:49 08/08/2018 1:10 Venous) AM CDT AM CDT Jeanmarie Dunne M.D. LAB BLOOD ADD-ON Performing Organization Address City/State/ZIP Code Phon e Number [facility] [place] [facility] - [address] [place], [place] [address] [facility] (ABNORMAL) Basic Metabolic Panel (08/08/2018 12:49 AM CDT) [facility] gist Method Time Signature Potassium, S 4.6 3.6 - 5.2 08/08/2018 [facility] [place] mmol/L 1:50 AM CDT LABORATORIES - [facility] Sodium, S 142 135 - 145 08/08/2018 [facility] [place] mmol/L 1:50 AM CDT LABORATORIES - [facility] Chloride, S 103 98 - 107 08/08/2018 [facility] [place] mmol/L 1:50 AM CDT LABORATORIES - [facility] Bicarbonate, S 27 22 - 29 08/08/2018 [facility] [place] mmol/L 1:50 AM CDT LABORATORIES - [facility] Anion Gap 12 7 - 15 08/08/2018 [facility] [place] 1:50 AM CDT LABORATORIES - [facility] BUN (Blood 12 6 - 21 08/08/2018 [facility] [place] Urea mg/dL 1:50 AM CDT LABORATORIES - Nitrogen), S [facility] Creatinine 0.53 (L) 0.59 - 08/08/2018 [facility] [place] 1.04 1:50 AM CDT LABORATORIES - mg/dL [facility] eGFR-Non >90 >=60 08/08/2018 [facility] [place] Black/ mL/min/BS 1:50 AM CDT LABORATORIES - [place] A [facility] Comment: ----ADDITIONAL INFORMATION---- Estimated GFR calculated using the 2009 CKD_EPI creatinine equation. eGFR-Black/ >90 >=60 mL/min/BSA 08/08/2018 1:50 [facility] [place] Turkmen AM CDT LABORATORIES - [facility] Comment: ----ADDITIONAL INFORMATION---- Estimated GFR calculated using the 2009 CKD_EPI creatinine equation. Calcium, Total, S 8.8 8.8 - 10.2 mg/dL 08/08/2018 1:50 AM [facility] [place] CDT LABORATORIES - [facility] Glucose, S 134 70 - 140 mg/dL 08/08/2018 1:50 AM [facility] [place] CDT LABORATORIES [facility] Specimen Anatomical Collection Method Collection Time Receive d Time (Source) Location / / Volume Laterality Blood (Blood, 08/08/2018 12:49 08/08/2018 1:10 Venous) AM CDT AM CDT Jeanmarie Dunne M.D. LAB BLOOD ADD-ON Performing Organization Address City/State/ZIP Code Phon e Number [facility] [place] [facility] - [address] [place], [place] [address] [facility] (ABNORMAL) Glucose, POCT (08/07/2018 10:05 PM CDT) Analysis Performed At Patho logist Time Signature Glucose, POCT, 180 (H) 70 - 140 08/07/2018 [facility] B mg/dL 10:45 PM CDT SERVICES Site ARTLINE 08/07/2018 [facility] 10:45 PM CDT SERVICES Last Intake 3-4 hours 08/07/2018 [facility] 10:45 PM CDT SERVICES Specimen Anatomical Collection Method Collection Time Receive d Time (Source) Location / / Volume Laterality Blood 08/07/2018 10:05 08/07/2018 PM CDT 10:45 PM CDT Unknown Provider LAB POCT ORDERABLES-MANUAL Performing Organization Address City/[facility] Code Phon e Number [facility] [address] [place] [address] Glucose, POCT (08/07/2018 5:53 PM CDT) Analysis Performed At Patho logist Time Signature Glucose, POCT, 140 70 - 140 08/07/2018 [facility] B mg/dL 5:58 PM CDT SERVICES Last Intake > 4 hours 08/07/2018 [facility] 5:58 PM CDT SERVICES Specimen Anatomical Collection Method Collection Time Receive d Time (Source) Location / / Volume Laterality Blood 08/07/2018 5:53 PM 9 5:58 CDT PM CDT Unknown Provider LAB POCT ORDERABLES-MANUAL Performing Organization Address [facility] Phon e Number [facility] [address] [place] [address] IV Placement Attempt No upper extremity site restrictions (08/07/2018 4:40 PM CDT) [facility] Method Time Signature IV Placement Successful 08/07/2018 [facility] [place] Attempt 4:40 PM CDT [facility] - [facility] Specimen Anatomical Collection Method Collection Time Receive d Time (Source) Location / / Volume Laterality 08/07/2018 4:40 PM 9 4:40 CDT PM CDT Jr Escobar M.D. IV THERAPY ORDERABLES Performing Organization Address City/[facility] Phon e Number [facility] [place] [facility] - [address] [place], [place] [address] [facility] (ABNORMAL) Basic Metabolic Panel (08/07/2018 4:28 PM CDT) [facility] Method Time Signature Potassium, P 4.1 3.6 - 5.2 08/07/2018 [facility] [place] mmol/L 4:48 PM CDT LABORATORIES - [facility] Sodium, P 140 135 - 145 08/07/2018 [facility] [place] mmol/L 4:48 PM CDT LABORATORIES - [facility] Chloride, P 101 98 - 107 08/07/2018 [facility] [place] mmol/L 4:48 PM CDT LABORATORIES - [facility] Bicarbonate, P 28 22 - 29 08/07/2018 [facility] [place] mmol/L 4:48 PM CDT LABORATORIES - [facility] Anion Gap, P 11 7 - 15 08/07/2018 [facility] [place] 4:48 PM CDT LABORATORIES - [facility] BUN (Blood 13 6 - 21 08/07/2018 [facility] [place] Urea mg/dL 4:48 PM CDT LABORATORIES - Nitrogen), P [facility] Creatinine 0.49 (L) 0.59 - 08/07/2018 [facility] [place] 1.04 4:48 PM CDT LABORATORIES - mg/dL [facility] eGFR-Black/Afr >90 >=60 08/07/2018 [facility] [place] ican [place] mL/min/BS 4:48 PM CDT LABORATORIES - A [facility] Comment: ----ADDITIONAL INFORMATION---- Estimated GFR calculated using the 2009 CKD_EPI creatinine equation. eGFR Non-Black/ >90 >=60 mL/min/BSA 08/07/2018 4:48 [facility] [place] Turk[place] PM CDT LABORATORIES - [facility] Comment: ----ADDITIONAL INFORMATION---- Estimated GFR calculated using the 2009 CKD_EPI creatinine equation. Calcium, Total, P 8.7 (L) 8.8 - 10.2 08/07/2018 4:48 PM [facility] mg/dL CDT LABORATORIES - [facility] Glucose, P 146 (H) 70 - 140 mg/dL 08/07/2018 4:48 PM [facility] [place] CDT LABORATORIES - [facility] Specimen Anatomical Collection Method Collection Time Receive d Time (Source) Location / / Volume Laterality Blood (Blood, 08/07/2018 4:28 PM 08/08/19 19 4:30 Venous) CDT PM CDT Jeanmarie Dunne M.D. LAB BLOOD ADD-ON Performing Organization Address City/State/ZIP Code Phon e Number [facility] [place] [facility] - [address] [place], [place] [address] [facility] pH (08/07/2018 4:27 PM CDT) athologist Signature pH 7.37 7.35 - 7.45 08/07/2018 [facility] [place] pH 4:32 PM CDT LABORATORIES - [facility] Specimen Anatomical Collection Method Collection Time Receive d Time (Source) Location / / Volume Laterality Blood 08/07/2018 4:27 PM 9 4:30 CDT PM CDT Jeanmarie Dunne M.D. LAB HISTORICAL ORDERS Performing Organization Address City/[facility]/ZIP Code Phon e Number [facility] [place] [facility] - [address] [place] [phone] [facility] Fibrinogen (08/07/2018 4:27 PM CDT) [facility] [facility] Fibrinogen, P 383 200 - 393 08/07/2018 [facility] [place] mg/dL 4:42 PM CDT LABORATORIES [facility] Specimen Anatomical Collection Method Collection Time Receive d Time (Source) Location / / Volume Laterality Blood (Blood, 08/07/2018 4:27 PM 08/08/19 19 4:30 Venous) CDT PM CDT Jeanmarie Dunne M.D. LAB BLOOD ADD-ON Performing Organization Address City/[facility] Code Phon e Number [facility] [place] [facility] - [address] [place] [phone] [facility] Prothrombin Time (PT/INR) (08/07/2018 4:27 PM CDT) [facility] Method Time Signature Prothrombin 10.4 9.4 - 12.5 08/07/2018 [facility] [place] Time, P sec 4:42 PM CDT LABORATORIES - [facility] INR 1.0 0.9 - 1.1 08/07/2018 [facility] [place] 4:42 PM CDT LABORATORIES - [facility] Comment: ----ADDITIONAL INFORMATION---- Standard intensity warfarin therapeutic range: 2.0 to 3.0 ?? High intensity warfarin therapeutic rang e: 2.5 to 3.5 Specimen Anatomical Collection Method Collection Time Receive d Time (Source) Location / / Volume Laterality Blood (Blood, 08/07/2018 4:27 PM 08/08/19 19 4:30 Venous) CDT PM CDT Jeanmarie Dunne M.D. LAB BLOOD ADD-ON Performing Organization Address City/[facility]/ZIP Code Phon e Number [facility] [place] [facility] - [address] [place] [phone] [address] [facility] APTT (Activated Partial Thromboplastin Time) (08/07/2018 4:27 PM CDT) P athologist Signature Activated 25 25 - 37 08/07/2018 [facility] [place] Partial sec 4:44 PM CDT LABORATORIES - [facility] Specimen Anatomical Collection Method Collection Time Receive d Time (Source) Location / / Volume Laterality Blood (Blood, 08/07/2018 4:27 PM 08/08/19 19 4:30 Venous) CDT PM CDT Jeanmarie Dunne M.D. LAB BLOOD ADD-ON Performing Organization Address City/[facility]/ZIP Code Phon e Number [facility] [place] [facility] - [address] [place] [phone] [address] [facility] Phosphorus Inorganic (08/07/2018 4:27 PM CDT) Analysis Performed At Patho logist Time Signature Phosphorus 4.3 2.5 - 4.5 08/07/2018 [facility] [place] (Inorganic), S mg/dL 9:21 PM CDT LABORATORIES - [facility] Specimen Anatomical Collection Method Collection Time Receive d Time (Source) Location / / Volume Laterality Blood (Blood, 08/07/2018 4:27 PM 08/08/19 19 4:47 Venous) CDT PM CDT Jeanmarie Dunne M.D. LAB BLOOD ADD-ON Performing Organization Address City/State/ZIP Code Phon e Number [facility] [place] [facility] - [address] [place] [phone] [address] [facility] Magnesium (08/07/2018 4:27 PM CDT) athologist Signature Magnesium, S 1.7 1.7 - 2.3 08/07/2018 [facility] [place] mg/dL 9:21 PM CDT LABORATORIES - [facility] Specimen Anatomical Collection Method Collection Time Receive d Time (Source) Location / / Volume Laterality Blood (Blood, 08/07/2018 4:27 PM 08/08/19 19 4:47 Venous) CDT PM CDT Jeanmarie Dunne M.D. LAB BLOOD ADD-ON Performing Organization Address City/State/ZIP Code Phon e Number [facility] [place] [facility] - [address] [place] [phone] [address] [facility] Lactate (08/07/2018 4:27 PM CDT) P athologist Signature Lactate, P 1.2 0.5 - 2.2 08/07/2018 [facility] [place] mmol/L 4:45 PM CDT LABORATORIES - [facility] Specimen Anatomical Collection Method Collection Time Receive d Time (Source) Location / / Volume Laterality Blood (Blood, 08/07/2018 4:27 PM 08/08/19 19 4:30 Venous) CDT PM CDT Jeanmarie Dunne M.D. LAB BLOOD NON ADD-ON Performing Organization Address City/[facility] Phon e Number [facility] [place] [facility] - [address] [place] [phone] [address] [facility] Calcium, Ionized (08/07/2018 4:27 PM CDT) P athologist Signature Calcium, 4.73 4.65 - 08/07/2018 [facility] [place] Ionized, B 5.30 mg/dL 4:32 PM CDT LABORATORIES [facility] Specimen Anatomical Collection Method Collection Time Receive d Time (Source) Location / / Volume Laterality Blood (Blood, 08/07/2018 4:27 PM 08/08/19 19 4:30 Venous) CDT PM CDT Jeanmarie Dunne M.D. LAB BLOOD NON ADD-ON Performing Organization Address City/[facility] Code Phon e Number [facility] [place] [facility] - [address] [place] [phone] [address] [facility] (ABNORMAL) CBC without Differential (08/07/2018 4:27 PM CDT) [facility] Method Time Signature Hemoglobin 10.9 (L) 11.6 - 08/07/2018 [facility] [place] 15.0 g/dL 4:33 PM CDT LABORATORIES - [facility] Hematocrit 34.5 (L) 35.5 - 08/07/2018 [facility] [place] 44.9 % 4:33 PM CDT LABORATORIES - [facility] Erythrocytes 3.81 (L) 3.92 - 08/07/2018 [facility] [place] 5.13 4:33 PM CDT LABORATORIES - x10(12)/L [facility] MCV 90.6 78.2 - 08/07/2018 [facility] [place] 97.9 fL 4:33 PM CDT LABORATORIES [facility] RBC Distrib 14.4 12.2 - 08/07/2018 [facility] [place] Width 16.1 % 4:33 PM CDT LABORATORIES - [facility] Platelet Count 212 157 - 371 08/07/2018 [facility] [place] x10(9)/L 4:33 PM CDT LABORATORIES - [facility] Leukocytes 10.8 (H) 3.4 - 9.6 08/07/2018 [facility] [place] x10(9)/L 4:33 PM CDT LABORATORIES - [facility] Specimen Anatomical Collection Method Collection Time Receive d Time (Source) Location / / Volume Laterality Blood (Blood, 08/07/2018 4:27 PM 08/08/19 19 4:30 Venous) CDT PM CDT Jeanmarie Dunne M.D. LAB BLOOD ADD-ON Performing Organization Address City/[facility]/ZIP [facility] Phon e Number [facility] [place] [facility] - [address] [place], [place] [address] [facility] Glucose, POCT (08/07/2018 3:52 PM CDT) Analysis Performed At Patho logist Time Signature Glucose, POCT, 133 70 - 140 08/07/2018 [facility] B mg/dL 3:55 PM CDT SERVICES Site Capillary 08/07/2018 [facility] 3:55 PM CDT SERVICES Specimen Anatomical Collection Method Collection Time Receive d Time (Source) Location / / Volume Laterality Blood 08/07/2018 3:52 PM 9 3:55 CDT PM CDT Unknown Provider LAB POCT ORDERABLES-MANUAL Performing Organization Address [facility] Phon e Number [facility] [address] [place] [address] Glucose, POCT (08/07/2018 2:44 PM CDT) Analysis Performed At Patho logist Time Signature Glucose, POCT, 139 70 - 140 08/07/2018 [facility] B mg/dL 3:11 PM CDT SERVICES Site Capillary 08/07/2018 [facility] 3:11 PM CDT SERVICES Specimen Anatomical Collection Method Collection Time Receive d Time (Source) Location / / Volume Laterality Blood 08/07/2018 2:44 PM 9 3:11 CDT PM CDT Unknown Provider LAB POCT ORDERABLES-MANUAL Performing Organization Address [facility] Phon e Number [facility] [address] [place] [address] Patient Status (08/07/2018 2:35 PM CDT) P athologist Signature O2 Flow 7.0 L/min 08/07/2018 [facility] [place] 2:41 PM CDT LABORATORIES - [facility] Device BPAP 08/07/2018 [facility] [place] 2:41 PM CDT LABORATORIES - [facility] Spont. 24 08/07/2018 [facility] [place] breaths/min 2:41 PM CDT LABORATORIES - [facility] Specimen Anatomical Collection Method Collection Time Receive d Time (Source) Location / / Volume Laterality Blood 08/07/2018 2:35 PM 9 2:41 CDT PM CDT Elder Carr M.D. LAB BLOOD NON ADD-ON Performing Organization Address City/State/ZIP Code Phon e Number [facility] [place] [facility] - [address] [place], [place] [address] [facility] (ABNORMAL) Blood Gas with Coox, Arterial (08/07/2018 2:35 PM CDT) Patholo gist Method Time Signature pO2 70 (L) 83 - 108 08/07/2018 [facility] [place] mm Hg 2:46 PM CDT LABORATORIES - [facility] pCO2 50 (H) 32 - 45 08/07/2018 [facility] [place] mm Hg 2:46 PM CDT LABORATORIES - [facility] pH 7.35 7.35 - 08/07/2018 [facility] [place] 7.45 pH 2:46 PM CDT LABORATORIES - [facility] Base Excess 2 -2 - 3 08/07/2018 [facility] [place] mmol/L 2:46 PM CDT LABORATORIES - [facility] HCO3 27 (H) 22 - 26 08/07/2018 [facility] [place] mmol/L 2:46 PM CDT LABORATORIES - [facility] Hemoglobin, B 11.0 (L) 11.6 - 08/07/2018 [facility] [place] 15.0 g/dL 2:46 PM CDT LABORATORIES - [facility] O2Hb 91.6 (L) 94.0 - 08/07/2018 [facility] [place] 98.0 % 2:46 PM CDT LABORATORIES - [facility] COHb 1.4 <3.0 % 08/07/2018 [facility] [place] 2:46 PM CDT LABORATORIES - [facility] MetHb <1.0 <1.5 % 08/07/2018 [facility] [place] 2:46 PM CDT LABORATORIES - [facility] CtO2 14.2 (L) 18.0 - 08/07/2018 [facility] [place] 21.0 vol 2:46 PM CDT LABORATORIES - % [facility] Arterial Art Line 08/07/2018 [facility] [place] Sample Site 2:46 PM CDT LABORATORIES - [facility] Specimen Anatomical Collection Method Collection Time Receive d Time (Source) Location / / Volume Laterality Blood (Blood, 08/07/2018 2:35 PM 08/08/19 19 2:41 Arterial) CDT PM CDT Elder Carr M.D. LAB BLOOD NON ADD-ON Performing Organization Address City/State/ZIP Code Phon e Number [facility] [place] - [address] [place], [place] [address] [facility] (ABNORMAL) Glucose, POCT (08/07/2018 12:42 PM CDT) Analysis Performed At Patho logist Time Signature Glucose, POCT, 144 (H) 70 - 140 08/07/2018 [facility] mg/dL 12:44 PM CDT SERVICES Site Capillary 08/07/2018 [facility] 12:44 PM CDT SERVICES Specimen Anatomical Collection Method Collection Time Receive d Time (Source) Location / / Volume Laterality Blood 08/07/2018 12:42 08/07/2018 PM CDT 12:44 PM CDT Unknown Provider LAB POCT ORDERABLES-MANUAL Performing Organization Address City/[facility]/ZIP Code Phon e Number [facility] [address] [place] [address] DX Chest 1 View (08/07/2018 11:32 AM CDT) Anatomical Region Laterality Modality Chest, Thoracic RST LOS, Thoracic ARZ LOS, Thoracic N/A Computed Radiography FLA LOS Specimen (Source) Anatomical Collection Method Collection Time Re ceived Time Location / / Volume Laterality 08/07/2018 11:45 AM CDT Impressions 08/07/2018 11:46 AM CDT IMPRESSION: ??Negative for postoperative purposes. Comparison was made with chest CT ?dated 02/24/2019 ?? . New left m ain bronchus intubation. Left apical chest tube. Patchy opacities of the lungs coul d be a combination of atelectases as well as vascular crowding. Accentuation of the cardiac silhouette due to hypoinflation. ?? Narrative 08/07/2018 11:46 AM CDT EXAM: ??DX CHEST 1 VIEW Procedure Note Geraldo Malin M.D. - 08/07/2018Formattin g of this note might be different from the original. EXAM: DX CHEST 1 VIEW IMPRESSION: Negative for postoperative p urposes. Comparison was made with chest CT dated 02/24/2019 . New left main bron chus intubation. Left apical chest tube. Patchy opacities of the lungs coul d be a combination of atelectases as well as vascular crowding. Accentuation of the cardiac silhouette due to hypoinflation. Fany Lyn M.D. IMG DIAGNOSTIC IMAGING PROCE DURES (ABNORMAL) Glucose, Whole Blood - Intra-Op (08/07/2018 10:57 AM CDT) athologist Signature Glucose 185 (H) 70 - 140 08/07/2018 [facility] [place] mg/dL 11:00 AM CDT [facility] Specimen Anatomical Collection Method Collection Time Receive d Time (Source) Location / / Volume Laterality Blood (Blood, 08/07/2018 10:57 08/07/2018 Arterial Line) AM CDT 10:57 AM CDT Resulting Agency Comment Drawn in [place] 502 Ziggy Schulz M.D. LAB BLOOD TROPONIN Performing Organization Address City/State/ZIP Code Phon e Number [facility] [place] [facility] - [address] (ABNORMAL) Blood Gas with Coox, Arterial (08/07/2018 10:57 AM CDT) [facility] Time Signature pO2 155 (H) 83 - 108 08/07/2018 [facility] [place] mm Hg 11:00 AM CDT [facility] pCO2 48 (H) 32 - 45 08/07/2018 [facility] mm Hg 11:00 AM CDT [facility] pH 7.37 7.35 - 08/07/2018 [facility] 7.45 pH 11:00 AM T [facility] Base Excess 2 -2 - 3 08/07/2018 [facility] mmol/L 11:00 AM T [facility] HCO3 28 (H) 22 - 26 08/07/2018 [facility] mmol/L 11:00 AM CDT [facility] Hemoglobin, B 9.8 (L) 11.6 - 08/07/2018 [facility] [place] 15.0 g/dL 11:00 AM CDT LABORATORIES - [facility] O2Hb 97.7 94.0 - 08/07/2018 [facility] 98.0 % 11:00 AM CDT [facility] - [facility] COHb 1.2 <3.0 % 08/07/2018 [facility] 11:00 AM CDT [facility] - [facility] MetHb <1.0 <1.5 % 08/07/2018 [facility] 11:00 AM CDT [facility] - [facility] CtO2 13.9 (L) 18.0 - 08/07/2018 [facility] 21.0 vol 11:00 AM CDT LABORATORIES - % [facility] Specimen Anatomical Collection Method Collection Time Receive d Time (Source) Location / / Volume Laterality Blood (Blood, 08/07/2018 10:57 08/07/2018 Arterial Line) AM CDT 10:57 AM CDT Resulting Agency Comment Drawn in OR 502 Ziggy Schulz M.D. LAB BLOOD NON ADD-ON Performing Organization Address City/State/ZIP Code Phon e Number [facility] - [address] [id number] [facility] Surgical Pathology, Frozen Lab (08/07/2018 10:13 AM CDT) Component Value Ref Test Analysis Performed At [facility] gist Range Method Time Signature Gross Description A. ??Received fresh labeled left upper lobe wedg e of lung 08/08/2018 [facility] is an 8.3 x 3.8 x 2.9 cm lung wedge resection. ??There is a 3:41 PM LABORATORIES - 1.6 x 1.5 x 0.9 cm solid, martínez mass located approximately [facility] 0.1 cm from the stapled margin. ??The mass does not CAMPUS umbilicate the visceral pleura. ??Staple Processing Machine Operator tissue submitted for frozen and permanent sections. ??Grossed by MAP. B. ??Received fresh labeled station 5 lymph node is a 2.2 x 1.6 x 0.9 cm aggregate of lymphatic and adipose tissue. All tissue submitted for frozen and permanent sections. Grossed by MAP. C. ??Received fresh labeled left lower lobe wedge of lung is a 6.6 x 1.9 x 1.3 cm lung wedge resection. ??There is a 1.1 x 0.9 x 0.7 cm well-circumscribed, solid, white mass located 0.7 cm from the stapled margin. ??The mass does not umbilicate the visceral pleura. ??Staple Processing Machine Operator tissue submitted for frozen and permanent sections. ??Grossed by MAP. Participated in Ammon Valentin, 08/08/2018 [facility] frances Roldan-Pathology 3:41 PM LABORATORIES - Interpretation Fellow [facility] Report Josie Sands M.D. [phone] 08/08/2018 [facility] electronically I verify that I have examined all relevant slides/ma terials 3:41 PM LABORATORIES - signed by for the specimen(s) and rendered or confirmed the diagnosi s. [facility] Seen in consultation with: ??Ethel Norwood M.D. [phone] [place] 08/08/2018 [facility] 3:41 PM LABORATORIES - T [facility] Block Summary A Left upper lobe wedge of lung 07/28 [facility] A1 Mass to margin 3:41 PM LABORATORIES - A2 Mass to margin [facility] IN A3 Hemorrhagic area [place] B Station 5 lymph node B1 Station 5 lymph node 1(B1) B2 Station 5 lymph node 2(B2) C Left lower lobe wedge of lung C1 Mass 1 C2 Mass 2 Interpretation FINAL DIAGNOSIS 08/08/2018 [facility] A. 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 ??Visceral pleural invasion is absent. [place] Tumor approaches the stapled surgical margin (< 1 mm). Intrapulmonary peribronchial lymph nodes are not identified. ?? Benign meningoendothelial-like nodule (2 mm), incidental finding in the non tumoral lung parenchyma. See synoptic report. B. ??Lymph nodes, subaortic (station 5), dissection: Multiple (2) lymph nodes are negative for tumor. C. 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 SYNOPTIC REPORT Procedure: Wedge resection. Specimen Laterality: Left. Tumor Site: Upper lobe. Total Tumor Size: Greatest dimension: ??1.6 cm. Additional dimensions: ??1.5 x 0.9 cm. Total Tumor Size Inclusive of Invasive and Lepidic Components: Not applicable. Size of Invasive Tumor: Not applicable. Tumor Focality: Single tumor. 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 Visceral Pleural Invasion: Not identified. Lymphovascular Invasion: Not identified. Direct Invasion of Adjacent Structures: No adjacent structures present. Margins: All margins are uninvolved by carcinoma. Margins examined: ??Parenchymal. Distance of invasive carcinoma from closest margin: ??< 0.1 cm. Treatment Effect: No known presurgical therapy. Regional Lymph Nodes ? Number of Lymph Nodes Involved: 0. ? Number of Lymph Nodes Examined: 2. Pathologic Staging (AJCC, 8th edition) ? TNM Descriptors: Not applicable. ? Primary Tumor: pT1b. ? Regional lymph nodes: pN0. ? Distant Metastasis: Not applicable. Additional Pathologic Findings: ??Benign meningoendothelial-like nodule (2 mm), incidental finding in the non tumoral lung parenchyma. The synoptic report incorporates information from all relevant surgical material and includes all required data elements of the current [facility] Cancer Protocol. This final pathology report is based on the gross/macroscopic examination, the frozen section histologic evaluation of the specimen(s), and review of the Hematoxylin and Eosin (H&E) permanent sections. ??Any revised information from the preliminary report is underlined. Specimen (Source) Anatomical Collection Method Collection Time Re ceived Time Location / / Volume Laterality Tissue (Lung, 08/07/2018 10:13 Left Upper Lobe) AM CDT Tissue (Lymph 08/07/2018 10:15 Node) AM CDT Tissue (Lung, 08/07/2018 10:27 Left Lower Lobe) AM CDT Narrative This result has an attachment that is no t available. Fany Lyn M.D. LAB SURG PATH ORDERABLES Performing Organization Address City/State/ZIP Code Phon e Number [facility] - [address] [place], [place] [address] [facility] (ABNORMAL) Glucose, Whole Blood (08/07/2018 9:53 AM CDT) P athologist Signature Glucose 150 (H) 70 - 140 08/07/2018 [facility] mg/dL 9:56 AM CDT [facility] Specimen Anatomical Collection Method Collection Time Receive d Time (Source) Location / / Volume Laterality Blood (Blood, 08/07/2018 9:53 AM 08/08/19 19 9:53 Arterial Line) CDT AM CDT Resulting Agency Comment Drawn in [place] Ziggy Schulz M.D. LAB BLOOD TROPONIN Performing Organization Address City/[facility]/ZIP Code Phon e Number [facility] - [address] [place], [place] [address] [facility] Potassium, Blood (08/07/2018 9:53 AM CDT) athologist Signature Potassium, B 4.0 3.6 - 5.2 08/07/2018 [facility] mmol/L 9:56 AM CDT [facility] Specimen Anatomical Collection Method Collection Time Receive d Time (Source) Location / / Volume Laterality Blood (Blood, 08/07/2018 9:53 AM 08/08/19 19 9:53 Arterial Line) CDT AM CDT Resulting Agency Comment Drawn in [place] Ziggy Schulz M.D. LAB BLOOD NON ADD-ON Performing Organization Address City/[facility]/ZIP Code Phon e Number [facility] - [address] [id number] [address] [facility] Sodium, B (08/07/2018 9:53 AM CDT) athologist Signature Sodium, B 142 135 - 145 08/07/2018 [facility] mmol/L 9:56 AM CDT [facility] Specimen Anatomical Collection Method Collection Time Receive d Time (Source) Location / / Volume Laterality Blood (Blood, 08/07/2018 9:53 AM 08/08/19 19 9:53 Arterial Line) CDT AM CDT Resulting Agency Comment Drawn in [place] Ziggy Schulz M.D. LAB BLOOD NON ADD-ON Performing Organization Address City/[facility]/ZIP Code Phon e Number [facility] - [address], [place] [address] [facility] Calcium, Ionized (08/07/2018 9:53 AM CDT) athologist Signature Calcium, 4.82 4.65 - 08/07/2018 [facility] Ionized, B 5.30 mg/dL 9:56 AM CDT [facility] Specimen Anatomical Collection Method Collection Time Receive d Time (Source) Location / / Volume Laterality Blood (Blood, 08/07/2018 9:53 AM 08/08/19 19 9:53 Arterial Line) CDT AM CDT Resulting Agency Comment Drawn in [place] Ziggy Schulz M.D. LAB BLOOD NON ADD-ON Performing Organization Address City/State/ZIP Code Phon e Number [facility] - [address] [place], [place] [address] [facility] (ABNORMAL) Blood Gas with Coox, Arterial (08/07/2018 9:53 AM CDT) [facility] Method Time Signature pO2 67 (L) 83 - 108 08/07/2018 [facility] mm Hg 9:56 AM CDT [facility] pCO2 65 (H) 32 - 45 08/07/2018 [facility] mm Hg 9:56 AM CDT [facility] pH 7.27 (L) 7.35 - 08/07/2018 [facility] 7.45 pH 9:56 AM CDT [facility] Base Excess 2 -2 - 3 08/07/2018 [facility] mmol/L 9:56 AM CDT [facility] HCO3 29 (H) 22 - 26 08/07/2018 [facility] mmol/L 9:56 AM CDT [facility] Hemoglobin, B 9.9 (L) 11.6 - 08/07/2018 [facility] 15.0 g/dL 9:56 AM CDT [facility] O2Hb 88.5 (L) 94.0 - 08/07/2018 [facility] 98.0 % 9:56 AM CDT [facility] COHb 1.2 <3.0 % 08/07/2018 [facility] 9:56 AM CDT [facility] MetHb <1.0 <1.5 % 08/07/2018 [facility] 9:56 AM CDT [facility] CtO2 12.4 (L) 18.0 - 08/07/2018 [facility] 21.0 vol 9:56 AM CDT [facility]ATORIES - [facility] Specimen Anatomical Collection Method Collection Time Receive d Time (Source) Location / / Volume Laterality Blood (Blood, 08/07/2018 9:53 AM 08/08/19 19 9:53 Arterial Line) CDT AM CDT Resulting Agency Comment Drawn in [place] Ziggy Schulz M.D. LAB BLOOD NON ADD-ON Performing Organization Address City/State/ZIP Code Phon e Number [facility] - [address], [place] [address] [facility] Glucose, POCT (08/07/2018 6:53 AM CDT) Analysis Performed At Patho logist Time Signature Glucose, POCT, 123 70 - 140 08/07/2018 [facility] B mg/dL 7:42 AM CDT SERVICES Site Capillary 08/07/2018 [facility] 7:42 AM CDT SERVICES Specimen Anatomical Collection Method Collection Time Receive d Time (Source) Location / / Volume Laterality Blood 08/07/2018 6:53 AM 9 7:43 CDT AM CDT Unknown Provider LAB POCT ORDERABLES-MANUAL Performing Organization Address City/State/ZIP Code Phon e Number [facility] [address] [place] [address] documented in this encounter Visit Diagnoses Diagnosis Mass Lung - Primary Nodule Pulmonary Mass Lung Decline Functional Status 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) Diabetes Mellitus Type 2 (HCC) Asthma Mild Intermittent (HCC) Obesity Body Mass Index 30-39.9 Adult Apnea Sleep Obstructive 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) documented in this encounter Admitting Diagnoses Diagnosis Nodule Pulmonary Mass Lung documented in this encounter Administered Medications Inactive Administered Medications - up to 3 most recent administrations Medication Order MAR Action Action Date Dose Rate Site acetaminophen injection 1,000 New Bag 08/07/2018 3:00 PM 1,000 mg 400 mL/hr mg (OFIRMEV) CDT 1,000 mg, intravenous, at 400 mL/hr, Administer over 15 Minutes, Once, On Sat08/07/18 at 1500, For 1 dose, Restriction Criteria (Pharmacy will review and approve if criteria met): Unable to take or tolerate medications administered via the enteral route or orally (not just NPO) acetaminophen tablet 1,000 mg (TYLENOL) Given 08/11/2018 12:07 PM CDT 1,000 mg 1,000 mg, oral, 4 times daily, First dose on Sat08/07/18 at 2100 Given 08/11/2018 9:24 AM CDT 1,000 mg Given 08/10/2018 10:14 PM CDT 1,000 mg ARIPiprazole tablet 10 mg (ABILIFY) Given 08/10/2018 10:14 PM CDT 10 mg 10 mg, oral, Daily at bedtime, First dose on Sat08/07/18 at 2100 Given 08/09/2018 9:23 PM CDT 10 mg Given 08/08/2018 11:51 PM CDT 10 mg bisacodyl suppository 10 mg (DULCOLAX) 10 mg, rectal, Every 12 hours PRN, const ipation, Starting on Sat08/07/18 at 1615, If no bowel movement within 2 hours foll owing magnesium hydroxide, do not give if patient has diarrhea. ceFAZolin in dextrose (iso-os) IVPB 2 New Bag 08/08/2018 12:32 AM CDT 2 g 200 mL/hr g (ANCEF) 2 g, intravenous, at 200 mL/hr, Administer over 30 Minutes, Every 8 hours, First dose on Sat08/07/18 at 1700, For 2 doses, Start within 8 hours of last IV dose. premix, Drug Monitoring Program: Pharmacist to adjust medication dosing based on indication and drug clearance factors., Indications: Prophylaxis, surgical New Bag 08/07/2018 4:46 PM CDT 2 g 200 mL/hr citalopram tablet 20 mg (CeleXA) Given 08/11/2018 9:25 AM CDT 20 mg 20 mg, oral, Daily, First dose on Sat08/08/18 at 0900 Given 08/10/2018 8:03 AM CDT 20 mg Given 08/09/2018 8:43 AM CDT 20 mg cloZAPine tablet 400 mg (CLOZARIL) Given 08/10/2018 10:14 PM CDT 400 mg 400 mg, oral, Daily at bedtime, First dose on Sat08/07/18 at 2100 Given 08/09/2018 9:23 PM CDT 400 mg Given 08/08/2018 11:51 PM CDT 400 mg cloZAPine tablet 50 mg (CLOZARIL) Given 08/11/2018 9:26 AM CDT 50 mg 50 mg, oral, Daily, First dose on Sat08/08/18 at 0900 Given 08/10/2018 8:03 AM CDT 50 mg Given 08/09/2018 8:43 AM CDT 50 mg dilTIAZem CD 24 hr capsule 120 mg (CARDIZEM Given 08/07/2018 8:21 PM CDT 120 mg CD/CARTIA XT) 120 mg, oral, Daily at bedtime, First dose on Nereyda 08/07/18 at 2100, Swallow whole. Do NOT crush, chew or open capsule. dilTIAZem tablet 45 mg (CARDIZEM) Given 08/11/2018 12:08 PM CDT 45 mg 45 mg, oral, Every 6 hours scheduled, First dose (after last modification) on Sat08/08/18 at 0600 Given 08/11/2018 6:12 AM CDT 45 mg Given 08/10/2018 11:12 PM CDT 45 mg famotidine tablet 20 mg (PEPCID) Given 08/07/2018 6:47 AM CDT 20 mg 20 mg, oral, Once, On Nereyda 08/07/18 at 0600, For 1 dose, Pre-Op, give with sips of water In AM Admit/Pre-Op holding area, Drug Monitoring Program: Pharmacist to adjust medication dosing based on indication and drug clearance factors. famotidine tablet 40 mg (PEPCID) Given 08/08/2018 9:08 PM CDT 40 mg 40 mg, oral, Daily at bedtime, First dose on Nereyda 08/07/18 at 2100, For 2 doses, Start evening of surgery, Drug Monitoring Program: Pharmacist to adjust medication dosing based on indication and drug clearance factors. Given 08/07/2018 8:21 PM CDT 40 mg fentaNYL injection 25 mcg (SUBLIMAZE) Given 08/07/2018 3:17 PM CDT 25 mcg 25 mcg, intravenous, Every 2 min PRN, For pain 4 or greater (maximum 100 mcg). If max dose of Fentanyl is reached and if pain is greater than 4, discontinue Fentanyl: give Hydromorphone, Starting on Nereyda 08/07/18 at 1251, PACU (only) fentaNYL injection 25 mcg (SUBLIMAZE) 25 mcg, intravenous, Every 2 hour PRN, moderate pain o r score 4-6 of 10, severe pain or score 7-10 of 10, for breakthrou gh pain when oral pain medication is not effective within 30 minutes or if unable to take oral medications, Starting on Nereyda 08/07/18 at 1615 fluticasone furoate-vilanterol 100-25 Given 08/11/2018 9:29 AM C DT 1 puff mcg/actuation inhaler 1 puff (BREO ELLIPTA DISKUS) 1 puff, inhalation, Daily (RT), First dose on Sat08/08/18 at 0800, fluticasone/vilanterol diskus 100/25 mcg was interchanged for fluticasone/salmeterol MDI 250/50 mcg Given 08/10/2018 8:03 AM CDT 1 puff Given 08/09/2018 8:45 AM CDT 1 puff fluticasone propionate 50 mcg/actuation Given 08/10/2018 10:16 P M CDT 2 sprays nasal spray 2 spray (FLONASE) 2 spray, each nostril, Daily at bedtime, First dose on Sat08/07/18 at 2100 Given 08/09/2018 9:24 PM CDT 2 sprays Given 08/08/2018 9:08 PM CDT 2 sprays heparin (porcine) Given 08/11/2018 6:12 AM CDT 5,000 Units Right Lower injection 5,000 Units Abdomen 5,000 Units, subcutaneous, Every 8 hours scheduled, First dose on Sat08/07/18 at 2330 Given 08/10/2018 10:13 PM CDT 5,000 Units Righ t Upper Abdomen Given 08/10/2018 2:57 PM CDT 5,000 Units Left Lower Abdomen insulin aspart U-100 injection 0-7 Units (NovoLOG FlexPen) 0-7 Units, subcutaneous, 3 times daily, First dose on Sat08/07/18 at 1700, Insulin Scale: Mild Correction Scale, 180 - 219: 2 units, 220 - 259: 3 units, 260 - 299: 4 units, 300 - 339: 5 units, 340 - 379: 6 units, 380 - 3 99: 7 units, Greater than 399: Call service writing Insulin orders insulin aspart U-100 Given 08/07/2018 12:51 PM CDT 2 Units Left Lower Abdomen injection 0-8 Units (NovoLOG FlexPen) 0-8 Units, subcutaneous, Every 2 hour PRN, high blood sugar, Nurse to determine and administer dose, Starting on Sat08/07/18 at 1251, For 2 doses, PACU (only), First dose at least 2 hours after any previous subcutaneous insulin. For glucose less than or equal to 70 mg/dL - initiate treatment of hypoglycemia. , Insulin Aspart: Correction Scale Insulin (For Diabetes Mellitus diagnosis), 71 - 139: 0 units, 140 - 179: 2 units, 180 - 219: 4 units, 220 - 259: 6 units, 260 - 299: 8 units, Greater than or equal to 300: Call anesthesia ipratropium-albuterol 0.5-2.5 mg/3 mL Given 08/10/2018 10:27 PM CDT 3 mL nebulizer solution 3 mL (DUO-NEB) 3 mL, nebulization, 4 times daily PRN, wheezing, shortness of breath, Starting on Sat08/07/18 at 1624 Given 08/10/2018 3:20 PM CDT 3 mL Given 08/09/2018 11:12 AM CDT 3 mL ketorolac injection 15 mg (TORADOL) Given 08/07/2018 2:57 PM CDT 15 mg 15 mg, intravenous, Once, On Sat08/07/18 at 1500, For 1 dose, PACU & Post-Op, Adult IV push rate: Over 15 seconds. Peds IV push rate: Over 1 minute. 60 mg dose only for IM, not recommended for IV. lactated ringers Rate/Dose Verify 08/08/2018 6:00 AM CDT 20 mL/hr 20 mL/hr 20 mL/hr, intravenous, Continuous, Starting on Sat08/07/18 at 1630 Rate/Dose Verify 08/08/2018 12:32 AM CDT 20 mL/hr 20 mL/hr Rate/Dose Verify 08/07/2018 11:00 PM CDT 20 mL/hr 20 mL/hr magnesium hydroxide suspension 30 mL (OK LK OF MAGNESIA) 30 mL, oral, Every 12 hours PRN, constip ation, Starting on Sat08/07/18 at 1615, If no bowel movement within 24 hours of sta rting Senna and Docusate, do not give if patient has diarrhea. magnesium sulfate in water IVPB 2 g New Bag 08/08/2018 4:21 AM CDT 2 g 25 mL/hr 2 g, intravenous, at 25 mL/hr, Administer over 120 Minutes, Once, On Sat08/08/18 at 0315, For 1 dose, premix bag melatonin tablet 1 mg Given 08/10/2018 10:14 PM CDT 1 mg 1 mg, oral, Daily at bedtime, First dose on Sat08/07/18 at 2100 Given 08/09/2018 9:23 PM CDT 1 mg Given 08/08/2018 11:51 PM CDT 1 mg metoprolol injection 5 mg (LOPRESSOR) Given 08/08/2018 4:24 AM CDT 5 mg 5 mg, intravenous, Every 5 min PRN, high heart rate, Starting on Sat08/07/18 at 2341, For 3 doses Given 08/08/2018 3:01 AM CDT 5 mg Given 08/08/2018 12:30 AM CDT 5 mg metoprolol injection 5 mg (LOPRESSOR) 5 mg, intravenous, Every 5 min PRN, high heart rate, S tarting on Sat08/08/18 at 0447, For 3 doses naloxone injection 0.2 mg (NARCAN) 0.2 mg, intravenous, As needed, respirat ory depression, Starting on Sat08/07/18 at 1615, For respiratory rate less than 8 b reaths per minute or RASS score of -3, -4, -5. Apply oxygen to keep oxygen saturati ons greater than 90% and notify service. oxyCODONE IR tablet 10 mg (ROXICODONE) 10 mg, oral, Every 4 hours PRN, severe p ain or score 7-10 of 10, Starting on Sat08/07/18 at 1615 oxyCODONE IR tablet 5 mg (ROXICODONE) Given 08/08/2018 8:03 AM CDT 5 mg 5 mg, oral, Every 4 hours PRN, moderate pain or score 4-6 of 10, Starting on Sat08/07/[address] tablet 40 mg (PROTONIX) Given 08/11/2018 6:12 AM CDT 40 mg 40 mg, oral, Daily before breakfast, First dose on Sat08/08/18 at 0700, pantoprazole 40 mg oral daily was interchanged for omeprazole 20 or 40 mg oral daily Swallow whole. Do NOT crush, chew, or split tablet. Given 08/10/2018 6:14 AM CDT 40 mg Given 08/09/2018 6:05 AM CDT 40 mg polyethylene glycol powder packet 1 pack et (MIRALAX) 1 packet, oral, Daily PRN, constipation, Starting on Sat08/07/18 at 1615, Ordered sequence of administration: polyethylene glycol, then bisacodyl until BM achieved. Avoid mixing with starch-based thickened liquids. sennosides-docusate sodium 8.6-50 mg per Given 08/11/2018 9: 26 AM CDT 2 tablets tablet 2 tablet (SENOKOT-S) 2 tablet, oral, 2 times daily, First dose on Nereyda 08/07/18 at 2100, Do not give if patient has diarrhea Given 08/10/2018 8:02 AM CDT 2 tablets Given 08/09/2018 9:23 PM CDT 2 tablets sodium chloride 3 % nebulizer solution 4 mL Given 08/09/2018 11: 12 AM CDT 4 mL (NEBUSAL) 4 mL, nebulization, As needed, cough, Starting on 08/09/18 at 0916 documented in this encounter Active and Recently Administered Medications Times are shown in CDT. Scheduled Medication Order 08/09/2018 08/10/2018 08/11/2018 acetaminophen tablet 1,000 mg (TYLENOL) 0843 (Given - Provider: Esvin Savage R.N.)1233 (Given - Provider: Esvin Savage R.N.)1750 (Given - Provider: Esvin Savage R.N.)2123 (Given - Provider: Beatriz Renee R.N.) 0802 (Given - Provider: Esvin Savage R.N.)1217 (Given - Provider: Esvin Savage R.N.)1816 (Given - Provider: Esvin Savage R.N.)2214 (Given - Provider: Fernando Vernon R.N.) 0924 (Given - Provider: Staci gramajo R.N.)1207 (Given - Provider: Beatriz Renee R.N.) 1,000 mg, oral, 4 times daily, First dose on Nereyda 08/07/18 at 2100 ARIPiprazole tablet 10 mg (ABILIFY) 2123 (Given - Prov ider: Beatriz Renee R.N.) 2214 (Given - Provider: Fernando Vernon R.N.) 10 mg, oral, Daily at bedtime, First dose on Nereyda 08/07/18 at 2100 citalopram tablet 20 mg (CeleXA) 0843 (Given - Provider: Alka Savage R.N.) 0803 (Given - Provider: Esvin Savage R.N.) 0925 (Given - Provider: Staci Pantoja R.N.) 20 mg, oral, Daily, First dose on Sat08/08/18 at 0900 cloZAPine tablet 400 mg (CLOZARIL) 2123 (Given - Provi mariangel: Beatriz Renee R.N.) 2214 (Given - Provider: Fernando Vernon R.N.) 400 mg, oral, Daily at bedtime, First dose on Sat08/07/18 at 210 0 cloZAPine tablet 50 mg (CLOZARIL) 0843 (Given - Provid er: Esvin Savage R.N.) 0803 (Given - Provider: Esvin Savage R.N.) 0926 (G iven - Provider: Staci Pantoja R.N.) 50 mg, oral, Daily, First dose on Sat08/08/18 at 0900 dilTIAZem tablet 45 mg (CARDIZEM) 0605 (Given - Provid er: Twyla Del Rio R.N.)1234 (Given - Provider: Esvin Savage R.N.)1750 (Given - Provider: Esvin Saavge R.N.) 0101 (Given - Provider: Beatriz Renee R.N.)0614 (Given - Provider: Beatriz Renee R.N.)1216 (Given - Provider: Esvin Savage R.N.)1816 (Given - Provider: Esvin Savage R.N.)2312 (Given - Provider: Fernando Vernon R.N.) 0612 (Given - Provider: Fernando Vernon R.N.)1208 (Given - Provider: Beatriz Renee R.N.) 45 mg, oral, Every 6 hours scheduled, Fi rst dose (after last modification) on Sat08/08/18 at 0600 fluticasone furoate-vilanterol 100-25 mc g/actuation inhaler 1 puff (BREO ELLIPTA DISKUS) 0845 (Given - Provider: Esvin Savage R.N.) 0803 (Sandra iven - Provider: Esvin Savage R.N.) 0929 (Given - Provider: Arnaud SolElviNElvi) 1 puff, inhalation, Daily (RT), First do se on Sat08/08/18 at 0800, fluticasone/vilanterol diskus 100/25 mcg was interchanged for fluticasone/salmeterol MDI 250/50 mcg fluticasone propionate 50 mcg/actuation nasal spray 2 spray (FLONASE) 2124 (Given - Provider: Beatriz Renee R.N.) 2216 (Given - Provider: Fernando Vernon R.N.) 0928 (Not Given - Provider: Staci slaughter RElviNElvi - Reason: See Provider Order) 2 spray, each nostril, Daily at bedtime, First dose on Sat at 2100 heparin (porcine) injection 5,000 Units 0605 (Given - Provider: Twyla Del [place] R.N.)1413 (Given - Provider: Esvin Savage R.N.)2123 (Given - Provider: Beatriz Renee R.N.) 0614 (Given - Provider: Beatriz Renee R.N.)1457 (Given - Provider: Esvin Savage R.N.)2213 (Given - Provider: Fernando Vernon RYahir) 0612 (Given - Provider: Fernando Vernon RJamei.)1641 (Not Given - Provider: Beatriz Renee R.N. - Reason: Other) 5,000 Units, subcutaneous, Every 8 hours scheduled, First dose on Sat08/07/18 at 2330 insulin aspart U-100 injection 0-7 Units (NovoLOG Flex Pen) 0845 (Not Given - Provider: Esvin Savage R.N. - Reason: Order parameters not met)1237 (Not Given - Provider: Esvin Savage R.N. - Reason: Order parameters not met) 0800 (Not Given - Provider: Esvin Savage R.N. - Reason: Order parameters not met)1221 (Not Given - Provider: Esvin Savage R.N. - Reason: Order parameters not met) 0927 (Not Given - Provider: Staci slaughter RElviNElvi - Reason: Order parameters not met)1208 (Not Given - Provider: Beatriz Renee R.N. - Reason: Order parameters not met) 0-7 Units, subcutaneous, 3 times daily, First dose on Sat08/07/18 at 1700, Insulin Scale: Mild Correction Scale, 180 - 219: 2 units, 220 - 259: 3 units, 260 - 299: 4 units, 300 - 339: 5 units, 340 - 379 1940 (Not Given - Provider: Beatriz Renee R.N. - Reason: Order parameters not met) 1820 (Not Given - Provider: Esvin Savage R.N. - Reason: Order parameters not met) : 6 units, 380 - 399: 7 units, Greater t griffiths 399: Call service writing Insulin orders melatonin tablet 1 mg 2122 (Given - Provider: Beatriz carpenter R.N.) 2213 (Given - Provider: Fernando Vernon RElviNElvi) 1 mg, oral, Daily at bedtime, First dose on Sat08/07/[address] tablet 40 mg (PROTONIX) 0605 (Given - Provider: Twyla Del Rio R.N.) 0614 (Given - Provider: Beatriz Renee RElviN.) 0612 ( Given - Provider: Fernando Vernon RElviNElvi) 40 mg, oral, Daily before breakfast, Fir st dose on Sat08/08/18 at 0700, pantoprazole 40 mg oral daily was interchanged for omeprazole 20 or 40 mg oral daily Swallow whole. Do NOT crush, chew, or split tablet. sennosides-docusate sodium 8.6-50 mg per tablet 2 tabl et (SENOKOT-S) 0843 (Given - Provider: Esvin Savage RElviN.)3 (Given - Provider: Beatriz Renee R.N.) 0802 (Given - Provider: Arnaud Solomon.Iram.)221 (Not Given - Provider: Fernando Vernon R.N. - Reason: Patient/family refused) 0926 (Given - Provider: Staci Pantoja R.NElvi) 2 tablet, oral, 2 times daily, First dos e on Sat08/07/18 at 2100, Do not give if patient has diarrhea PRN Medication Order 08/09/2018 08/10/2018 08/11/2018 albuterol 90 mcg/actuation inhaler 2 puff (PROVENTIL HFA,VENTOLI N HFA) 2 puff, inhalation, Every 4 hours PRN, w heezing, shortness of breath, Starting Nereyda 08/07/18 at 1623 bisacodyl suppository 10 mg (DULCOLAX) 10 mg, rectal, Every 12 hours PRN, const ipation, Starting on Sat08/07/18 at 1615, If no bowel movement within 2 hours following magnesium hydroxide, do not give if patient has diarrhea. fentaNYL injection 25 mcg (SUBLIMAZE) 25 mcg, intravenous, Every 2 hour PRN, m oderate pain or score 4-6 of 10, severe pain or score 7-10 of 10, for breakthrough pain when oral pain medication is not effective within 30 minutes or if unable to take oral medications, Starting on Sat08/07/18 at 1615 ipratropium-albuterol 0.5-2.5 mg/3 mL nebulizer soluti on 3 mL (DUO-NEB) 0529 (Given - Provider: Twyla De lRio, R.N.)1112 (Given - Provider: Esvin Savage, R.N.) 1520 (Given - Provider: Esvin Savage, R.N.)2227 (Given - Provider: Fernando Vernon R.N.) 3 mL, nebulization, 4 times daily PRN, w heezing, shortness of breath, Starting on Sat08/07/18 at 1624 magnesium hydroxide suspension 30 mL (MILK OF MAGNESIA) 30 mL, oral, Every 12 hours PRN, constip ation, Starting on Sat08/07/18 at 1615, If no bowel movement within 24 hours of starting Senna and Docusate, do not give if patient has diarrhea. metoprolol injection 5 mg (LOPRESSOR) 5 mg, intravenous, Every 5 min PRN, high heart rate, Starting on Sat08/08/18 at 0447, For 3 doses naloxone injection 0.2 mg (NARCAN) 0.2 mg, intravenous, As needed, respirat ory depression, Starting on Sat08/07/18 at 1615, For respiratory rate less than 8 breaths per minute or RASS score of - 3, -4, -5. Apply oxygen to keep oxygen saturations greater than 90% and notify service. oxyCODONE IR tablet 10 mg (ROXICODONE) 10 mg, oral, Every 4 hours PRN, severe p ain or score 7-10 of 10, Starting on Nereyda 08/07/18 at 1615 oxyCODONE IR tablet 5 mg (ROXICODONE) 5 mg, oral, Every 4 hours PRN, moderate pain or score 4-6 of 10, Starting on Nereyda 08/07/18 at 1615 polyethylene glycol powder packet 1 packet (MIRALAX) 1 packet, oral, Daily PRN, constipation, Starting on Nereyda 08/07/18 at 1615, Ordered sequence of administration: polyethylene glycol, then bisacodyl until BM achieved. Avoid mixing with starch-based thickened liquids. sodium chloride 3 % nebulizer solution 4 mL (NEBUSAL) 1112 (Given - Provider: Esvin Savage R.N.) 4 mL, nebulization, As needed, cough, Starting on 08/09/18 at 0916 documented in this encounter
--- OUTSIDE RECORDS SUMMARY | 2022-03-01 10:17 | XMS_ITS | Encounter Summary ---
:1955 Author Organization [facility] Address [address] [place] [address] Care Team Providers Name Role Phone Unavailable Primary Care Provider Unavailable Reason for Visit Reason Onset Date Comments returned phone call 07/15/2018 Encounter Details Date Type Department Care Team Description 07/15/2018 Clinical Communication Division of sami Ramsay phone call Thoracic Surgery in Alberto Castillo P.A.-C. [place] [address] [address] [facility] [address] [place] [phone] Social History Tobacco Use Types Packs/Day Years Used Date Smoking Tobacco: Former Cigarettes 05 23 Quit : 2004 Smokeless Tobacco: Never Alcohol Use Standard Drinks/Week Comments No 0 (1 standard drink = 0.6 oz pure alcoho l) Sex Assigned at Date Recorded Not on file documented as of this encounter Miscellaneous Notes Telephone Encounter - Fozia Ramsay P.A.-C. - 07/16/2018 11:31 AM CDT Done. Telephone Encounter - Alycia Patten - 07/15/2018 12:25 PM CDT Fozia - please call pt's sister Naomi Ngo at [phone]. She said she was returning your call. Alycia Silveira documented in this encounter Plan of Treatment Not on filedocumented as of this encounter Visit Diagnoses Not on filedocumented in this encounter
--- OUTSIDE RECORDS SUMMARY | 2022-03-01 10:17 | XMS_ITS | Encounter Summary ---
:1955 Author Organization [facility] Address [address] [place] [address] Care Team Providers Name Role Phone Unavailable Primary Care Provider Unavailable Encounter Details Date Type Department Care Team Description 07/09/2018 Orders Only Division of Thoracic Surgery Fozia Ramsay in [facility] P[facility] [address] [facility] [address] [place] [address] [place], [place] [phone] (Wo rk) Social History Tobacco Use Types [...]
--- OUTSIDE RECORDS SUMMARY | 2022-03-01 10:17 | XMS_ITS | Encounter Summary ---
:1955 Author Organization [facility] Address [address] [place] [address] Care Team Providers Name Role Phone Unavailable Primary Care Provider Unavailable Encounter Details Date Type Department Care Team Description 06/30/2018 Surgery RST ROMB MAIN OR Keaton Noe, Bronchoscopy Flexible: [address] M.D. Endobronchial Ultrasound [place], [place] [address] Guided Transbronchial [phone] [place], [place] Needle Aspiration [phone] Social History Tobacco Use Types Packs/Day Years Used Date Smoking Tobacco: Former Cigarettes 1 Quit : 2004 Smokeless Tobacco: Never Alcohol Use Standard Drinks/Week Comments No 0 (1 standard drink = 0.6 oz pure alcoho l) Sex Assigned at Date Recorded Not on file documented as of this encounter Last Filed Vital Signs Vital Sign Reading Time Taken Comments Blood Pressure 141/76 06/30/2018 9:02 AM MARKETING DATA SPECIALIST Pulse - - Temperature 36.6 ??C (97.9 ??F) 06/30/2018 12:00 PM MARKETING DATA SPECIALIST Respiratory Rate 18 06/30/2018 12:00 PM MARKETING DATA SPECIALIST Oxygen Saturation 98% 06/30/2018 9:02 AM MARKETING DATA SPECIALIST Inhaled Oxygen Concentration - - Weight 99.1 kg (218 lb 7.6 oz) 06/30/2018 9:02 AM MARKETING DATA SPECIALIST Height 160.8 cm (5' 3.31) 06/30/2018 9:02 AM MARKETING DATA SPECIALIST Body Mass Index 38.33 06/30/2018 9:02 AM MARKETING DATA SPECIALIST documented in this encounter Medications at Time of Discharge Medication Sig Dispensed Refills Start Date End Date metFORMIN (GLUCOPHAGE) Take 500 mg by mouth 0 500 mg tablet at bedtime. acetaminophen (TYLENOL) Take 500 mg by mouth 0 500 mg tablet every 6 (six) hours as needed for pain. ADVAIR DISKUS 250-50 Inhale 1 puff 2 (two) 3 05/30 mcg/act diskus inhaler times a day. albuterol (PROVENTIL Inhale 2 puffs every 0 [...] nasal into each nostril at spray bedtime. ipratropium-albuterol Inhale 3 mL 4 (four) 0 03/30 (DUO-NEB) 0.5-2.5 mg/3 times a day as needed mL nebulizer solution for wheezing or shortness of breath. montelukast (SINGULAIR) Take 10 mg by mouth 0 10 mg tablet at bedtime. MYRBETRIQ 50 mg 24 hr Take 50 mg by mouth 4 05/24 tablet at bedtime. omeprazole (PriLOSEC) 20 Take 20 mg by mouth [address] capsule every morning before breakfast. vitamin E 400 unit Take 400 Units by 0 08/16/2016 capsule mouth daily. albuterol sulfate Inhale. 0 019 (PROAIR HFA INHL) ARIPiprazole (ABILIFY) Take 10 mg by mouth 0 2021 10 mg tablet at bedtime. cloZAPine (CLOZARIL) 100 Take 300 mg by mouth 0 0 05/26/2018 04/28/2021 mg tablet at bedtime. cloZAPine (CLOZARIL) 50 Take 50 mg by mouth 0 04/28/2021 mg tablet at bedtime. melatonin 1 mg tablet Take 1 mg by mouth at 0 2021 bedtime. UNABLE TO FIND TAKE 1 PACKET BY 0 09/02/201707/28 MOUTH EVERY MORNING (8AM) (CALL PHARMACY TO REFILL) documented as of this encounter H&P Notes Ryan Meza M.D. - 06/30/2018 10:22 AM CST INTERVAL HISTORY AND PHYSICAL PRE-PROCEDURE UPDATE H&P reviewed. The patient was examined and there are no significant changes to the H&P. Sukhdeep Meza M.D. ETING DATA SPECIALIST Source Note - Dung Longoria M.D. - 06/25/2018 11:30 AM MARKETING DATA SPECIALIST SUBJECTIVE REASON FOR CONSULT Please do bronchoscopy. HISTORY OF PRESENT ILLNESS This is a 63-year-old former smoker who comes to us from [place], [place], [place]. She has a background history of asthma, schizophrenia, sleep-related disordered breathing and is onbilevel PAP. 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 Her scans demonstrate that the primary tumor itself is not FDG hypermetabolic on PET. We are asked to do bronchoscopy to sample mediastinal lymph nodes. As for symptoms, the patient has an intermittent cough and wheeze which are both absent right now. She does not have dyspnea or respiratory limitation, although she is quite debilitated and can only ambulate around a mile or less very slowly because of exhaustion and foot pain. The patient does not have a personal or family history of anesthesia complications. She has had a colonoscopy with moderate sedation which she requires and went smoothly. MEDICAL HISTORY 1. History of nicotine dependence. 2. Adenocarcinoma of the lung. 3. Asthma. 4. Schizophrenia. 5. Sleep-related disordered breathing, on bilevel PAP. 6. Obesity, BMI = 38. SOCIAL HISTORY Approximately a 16-[id number]-ohor history of smoking, quit 14 years ago. No alcohol or illicit drugs. OBJECTIVE PHYSICAL EXAMINATION General: Chronically ill-appearing. Mental Status: Psychomotor slowing. ENT: Mallampati class IV. Pulmonary: Easy respirations at rest. Breathing ambient air. Normal to percussion and auscultation. Cardiac: Regular rate and rhythm. Extremities: No clubbing. ASSESSMENT / PLAN #1 Left upper lobe adenocarcinoma #2 Intermittent asthma, on p.r.n. albuterol and montelukast #3 Sleep-related disordered breathing, on bilevel PAP #4 Obesity, BMI = 38 Given that the primary tumor is PET negative, she has a sound indication for invasive mediastinal staging. We will plan for flexible bronchoscopy with endobronchial ultrasound lymph node survey. Given her BMI and bilevel PAP requirement, we will plan to do this in the OR at [facility]. I let her know that I will be away from clinic June 30 through July 04 and this is a bronchoscopy consult, so the results will go to the referring teams (medical oncology and thoracic surgery). NOTE TO BRONCHOSCOPIST: Please do endobronchial ultrasound lymph node staging for her left-sided lung cancer. She has the required ECG in our system plus labs in Care Everywhere. I talked her about being n.p.o. before midnight, only using water as she needs to take her psych meds. No blood thinners. We talked about the relative risks/benefits/alternatives. Thanks! ETING DATA SPECIALIST documented in this encounter OR Notes Op Note - Keaton Noe M.D. - 06/30/2018 10:54 AM CST FULL OP NOTE Procedure(s) (LRB): Bronchoscopy Flexible: Endobronchial Ultrasound Guided Transbronchial Needle Aspiration (N/A) Surgeon(s) and Role: * Keaton Noe M.D. - Primary * Cristobal Xie M.D. * Ryan Meza M.D. Anesthesia Type: Monitored anesthesia care Pre-Operative Diagnosis: Malignant Neoplasm Of Lung Adenocarcinoma Left (HCC) [C34.92] Full Operative Note Details Following a procedural pause for patient identification inspection of the upper airway showed evidence of Pino pharyngitis. This involved the arytenoids and true cords. The trachea appeared normal. We placed a cuffed wire spiral tube. Inspection the right left bronchial trees was unremarkable. Under EBUS guidance we started in 4R and sampled a 9 mm node with 4 passes and lymphocytes were seen. In station 7 there was the triangular lymphoid structure that was sampled with 4 passes and again lymphocytes were seen. In station 4 L there were a pair of 4 to 5 mm nodes that we attempted to sample with3 passes though lymphocytes were not identified. In station 11 L we identified a pair of nodes that were about 7 mm there were sampled with 4 passes and again lymphocytes were seen. No significant bleeding was encountered. Washings were not collected. Specimens ID Type Source Tests Collected by Time A : 4R Aspirate Lymph Node CYTOLOGY FINE NEEDLE ASPIRATION (INCLUDES CORE BIOPSIES Keaton Noe M.D. 06/30/2018 1105 B : st 7 Aspirate Lymph Node CYTOLOGY FINE NEEDLE ASPIRATION (INCLUDES CORE BIOPSIES Keaton Noe M.D. 06/30/2018 1119 C : 4L Aspirate Lymph Node CYTOLOGY FINE NEEDLE ASPIRATION (INCLUDES CORE BIOPSIES Keaton Noe M.D. 06/30/2018 1132 D : 11L Aspirate Lymph Node CYTOLOGY FINE NEEDLE ASPIRATION (INCLUDES CORE BIOPSIES Keaton Noe M.D. 06/30/2018 1138 Drains * No drains in log * Estimated Blood Loss 1 mL Implants * No implants in log * Keaton Noe M.D. ETING DATA SPECIALIST Brief Op Note - Ryan Meza M.D. - 06/30/2018 10:14 AM CST BRIEF OP NOTE Procedure(s) (LRB): Bronchoscopy Flexible: Endobronchial Ultrasound Guided Transbronchial Needle Aspiration (N/A) Surgeon(s) and Role: * Keaton Noe M.D. - Primary * Cristobal Xie M.D. * Ryan Meza M.D. Anesthesia Type: Monitored anesthesia care Pre-Operative Diagnosis: Malignant Neoplasm Of Lung Adenocarcinoma Left (HCC) [C34.92] Post-Operative Diagnosis: Same as pre-operative diagnosis Findings: Evidence of pino in the oropharynx. Airway inspection was normal. EBUS-guided biopsy of lymph nodes 4R, 7, 4L, and 11L. Complications: None Specimens ID Type Source Tests Collected by Time A : 4R Aspirate Lymph Node CYTOLOGY FINE NEEDLE ASPIRATION (INCLUDES CORE BIOPSIES Keaton Noe M.D. 06/30/2018 1105 B : st 7 Aspirate Lymph Node CYTOLOGY FINE NEEDLE ASPIRATION (INCLUDES CORE BIOPSIES MidthunKeaton M.D. 06/30/2018 1119 C : 4L Aspirate Lymph Node CYTOLOGY FINE NEEDLE ASPIRATION (INCLUDES CORE BIOPSIES MidthunKeaton M.D. 06/30/2018 1132 D : 11L Aspirate Lymph Node CYTOLOGY FINE NEEDLE ASPIRATION (INCLUDES CORE BIOPSIES MidthunKeaton M.D. 06/30/2018 1138 Drains * No drains in log * Estimated Blood Loss No blood loss documented. Implants * No implants in log * Sukhdeep Meza M.D. ETING DATA SPECIALIST documented in this encounter Plan of Treatment Not on filedocumented as of this encounter Procedures Procedure Name Priority Date/Time Associated Diagnosis Comme nts CYTOLOGY FINE NEEDLE Routine 06/30/2018 11:05 Malignant Neopla sm Of Results for this ASPIRATION (INCLUDES AM MARKETING DATA SPECIALIST Lung Adenocarcinoma procedure are in CORE BIOPSIES Left (HCC) the results section. BRONCHOSCOPY FLEXIBLE: 06/30/2018 10:12 Malignant Neop lasm Of ENDOBRONCHIAL AM MARKETING DATA SPECIALIST Lung Adenocarcinoma ULTRASOUND GUIDED Left (HCC) TRANSBRONCHIAL NEEDLE ASPIRATION documented in this encounter Results (ABNORMAL) Cytology Fine Needle Aspiration (including core biopsies) (06/30/2018 11:05 AM MARKETING DATA SPECIALIST) Component Value Ref Test Analysis Performed At [facility] Range Method Time Signature Gross Description A: ?? Received 4 spray-fixed smears, 4 Diff-Quik stained 07/01/2018 [facility] smears, and 4cc of blood-tinged fluid. 1 0:16 AM LABORATORIES - Specimen evaluated for adequacy on site. MARKETING DATA SPECIALIST [facility] B: ?? Received 4 spray-fixed smears, 4 Diff-Quik stained CAMPUS smears, and 4cc of blood-tinged fluid. Specimen evaluated for adequacy on site. C: ?? Received 3 spray-fixed smears, 3 Diff-Quik stained smears, and 2cc of blood-tinged fluid. Specimen evaluated for adequacy on site. D: ?? Received 4 spray-fixed smears, 4 Diff-Quik stained smears, and 4cc of blood-tinged fluid. Specimen evaluated for adequacy on site. (I) Source A. Lymph node, Station 4 right, EBUS fine needle aspiratio n 07/01/2018 [facility] B. Lymph node, Station 7, EBUS fine needle aspiration 10:16 AM LABORATORIES - C. Lymph node, Station 4 left, EBUS fine needle aspiration [facility] D. Lymph node, Station 11 left, EBUS fine needle aspiration [place] (I) Report Laquita Souza M.D. [phone] 07/01/2018 [facility] electronically I verify that I have examined all relevant slides/ma terials 10:16 AM LABORATORIES - signed by for the specimen(s) and rendered or confirmed the diagnosi s. [facility] () [place] (I) 07/01/2018 [facility] 10:16 AM LABORATORIES - [facility] Interpretation A. Lymph node, Station 4 right, EBUS fine needle asp iration 07/01/2018 [facility] (smears/cell block): Negative for malignancy. Lymphocytes 10:16 AM LABORATORIES - consistent with sampled lymph node. [facility] B. Lymph node, Station 7, EBUS fine needle aspiration [place] (smears/cell block): Negative for malignancy. Lymphocytes consistent with sampled lymph node. C. Lymph node, Station 4 left, EBUS fine needle aspiration (smears/cell block): Nondiagnostic. No evidence of lymph node sampling seen. D. Lymph node, Station 11 left, EBUS fine needle aspiration (smears/cell block): Negative for malignancy. Lymphocytes consistent with sampled lymph node. (I) Specimen (Source) Anatomical Collection Method Collection Time Re ceived Time Location / / Volume Laterality Aspirate (Lymph 06/30/2018 11:05 Node) AM MARKETING DATA SPECIALIST Aspirate (Lymph 06/30/2018 11:19 Node) AM MARKETING DATA SPECIALIST Aspirate (Lymph 06/30/2018 11:32 Node) AM MARKETING DATA SPECIALIST Aspirate (Lymph 06/30/2018 11:38 Node) AM MARKETING DATA SPECIALIST Narrative This result has an attachment that is no t available. Keaton Noe M.D. LAB SURG PATH ORDERABLES Performing Organization Address City/State/ZIP Code Phon e Number [facility] - [address] [place], [place] [address] [facility] documented in this encounter Visit Diagnoses Diagnosis 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) 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) documented in this encounter Administered Medications Inactive Administered Medications - up to 3 most recent administrations Medication Order MAR Action Action Date Dose Rate Site benzocaine 20 % topical Given 06/30/2018 10:49 AM 1 application Other spray ([place]) MARKETING DATA SPECIALIST As needed, Starting on Sat06/30/18 at 1049, Intra-Op ipratropium-albuterol 0.5-2.5 mg/3 mL nebulizer Given 06/30/2018 9:43 AM MARKETING DATA SPECIALIST 3 mL solution 3 mL (DUO-NEB) 3 mL, nebulization, Once, On Sat06/30/18 at 0915, For 1 dose, Pre-Op lidocaine 10 mg/mL (1 %) injection Given 06/30/2018 10:49 AM MARKETING DATA SPECIALIST 17 mL Other (XYLOCAINE) As needed, Starting on Sat06/30/18 at 1049, Intra-Op NaCl 0.9% infusion 20 mL/hr, intravenous, Continuous, Starting on 06/30 at 0915, Pre-Op documented in this encounter Active and Recently Administered Medications Times are shown in MARKETING DATA SPECIALIST. Scheduled Medication Order 06/28/2018 06/29/2018 06/30/2018 ipratropium-albuterol 0.5-2.5 mg/3 mL ne bulizer solution 3 mL (DUO-NEB) (COMPLETED) 0943 (Given - Provid er: Martine Sarkar R.N.) 3 mL, nebulization, Once, On Sat06/30/18 at 0915, For 1 dose, Pre -Op Continuous Medication Order 06/28/2018 06/29/2018 06/30/2018 lactated ringers 0915 (Due) 20 mL/hr, intravenous, at 20 mL/hr, Cont inuous, Starting Sat06/30/18 at 0915, Pre-Op lactated ringers 1200 (Due) 20 mL/hr, intravenous, at 20 mL/hr, Cont inuous, Starting Sat06/30/18 at 1200, PACU & Post-Op NaCl 0.9% infusion 0915 (Due) 20 mL/hr, intravenous, Continuous, Starting on Sat06/30/18 at 091 5, Pre-Op PRN Medication Order 06/28/2018 06/29/2018 06/30/2018 benzocaine 20 % topical spray ([place]ER[place]) (CANCELED) 1049 (Given - Provider: Ryan Meza M.D. - Comment: oropharyngeal) As needed, Starting on Sat06/30/18 at 1049, Intra-Op lidocaine 10 mg/mL (1 %) injection (XYLOCAINE) (CANCELED) 1049 (Given - Provider: Ryan Meza M.D. - Comment: oropharyngeal, bronchial) As needed, Starting on Sat06/30/18 at 1049, Intra-Op documented in this encounter
--- OUTSIDE RECORDS SUMMARY | 2022-03-01 10:17 | XMS_ITS | Encounter Summary ---
:1955 Author Organization [facility] Address [address] [place] [address] Care Team Providers Name Role Phone Unavailable Primary Care Provider Unavailable Encounter Details Date Type Department Care Team Description 08/07/2018 Anesthesia Event RST ROMB MAIN OR Ziggy Calixto M.D. [address] [place] [address] [place], [place] [phone] (Wo rk) Anesthesia Record Procedure Summary Procedure Name Responsible Anesthesia Start Anesthesia Stop Time Anesthesiologist Time THORACOSCOPY, WEDGE Ziggy Calixto M.D. 08/07/18 0739 08/07/18 1 150 RESECTION LUNG. (Left) Events Date Time Event Comment 08/07/2018 0738 In Room 0739 An Start Machine/Equipmen t Checked Infection Precautions Foll owed Procedure/Site Verified NPO Sta tus Verified Supine Standard ASA Mon itors Applied 0748 An Induction 0751 An Intubation 0846 Turnover to Proceduralist 0852 Proc Start 0920 Single Lung Ventilation 1040 Double Lung Ventilation Resumed 1109 Proc Fin 1122 Turnover to ANE Staff 1122 an stop data 1124 Out of Room 1150 An End I completed my h andoff to the receiving staff during which we 1. Identified the p atient 2. Identified the responsible provider 3. Reviewed the pertinent me dical history 4. Discussed the silverman rgical course 5. Reviewed intra-o p anesthesia management and i ssues during anesthesia 6. Se t expectations for post-procedure p eriod 7. Allowed opportunity for questions and acknowledgement of understanding. Name Total fentanyl injection 50 mcg/mL 250 mcg lidocaine 2% (mg) injection 100 mg propofol 10 mg/mL 150 mg ondansetron 4 mg/2 mL injection 4 mg glycopyrrolate 0.2 mg/mL injection 0.4 mg phenylephrine 100 mcg/mL injection 2,000 mcg ePHEDrine PF 5 mg/mL syringe injection 110 mg sugammadex 100 mg/mL injection 200 mg vecuronium 10 mg injection 18 mg ceFAZolin injection 2,000 mg (ANCEF) 2 g phenylephrine 80 mcg/mL in NaCl 0.9% 250 mL infusion 9 .63 mg vasopressin 20 Units/mL injection 3 Units dexamethasone 4 mg/mL injection 4 mg albuterol inhaler 6 puff Lactated Ringers Free Drip 1,000 mL lactated ringers free drip 1,100 mL Agents No agents on file. Blood No blood administrations on file. Lines, Drains, and Airways Type Details Placement Removal Peripheral IV Placement Date: 08/07/18 06 by 08/07/18 1000 b y 08/07/18; Placement Raysa Pickard Cheryl M, Time: 06; Catheter R.N. Size: 20 G; Orientation: Right; Location: Forearm; Site Prep: Chlorhexidine (Preferred); Technique: (tbr); Insertion Attempts: 1; Removal Date: 08/07/18; Removal Time: 1000 ETT Placement Date: 08/07/18 0751 by 08/07/18 1200 b y 08/07/18; Placement Yulia Rosario APRN, Costell o, Cheryl M, Time: 075 (created via [employer] R.N. procedure documentation); Mask Ventilation: Oral/Nasal airway needed; Type: Double lumen left; Single Lumen Tube Size: 35 Fr; Cuffed: Yes; Blade Size: Parrish 2; Location: Oral; Removal Date: 08/07/18; Removal Time: 1200 Peripheral IV Placement Date: 08/07/18 0827 by 08/10/18 1500 b y 08/07/18; Placement Yulia Rosario APRN, Harriso n, Alex S, Time: 08; Catheter [employer] R.N. Size: 18 G; Orientation: Left; Location: Hand; Removal Date: 08/10/18; Removal Time: 1500; Removal Reason: Drainage Indwelling Urinary Placement Date: 08/07/18 0828 by 08/09/18 061 5 by Catheter 08/07/18; Placement Sybil Kang Haroldson, Anna, Time: 08; Inserted by: Radha Kang RN; Type: Non-latex; Size: 16 Fr.; Balloon Size: 10 mL; Urine Returned: Yes; Removal Date: 08/09/18; Removal Time: 0615; Removal Reason: Per order Arterial Line Placement Date: 08/07/18 0829 by 08/09/18 0935 b y 08/07/18; Placemnt Time: August, Yulia Yeager APRN, Ha rrison, Alex S, 828 (created via [facility] R.N. procedure documentation); Orientation: Left; Location: Radial; Site Prep: Chlorhexidine (Preferred); Technique: Anatomical landmarks; Insertion Attempts: 2; Securement: Securement dressing; Removal Date: 08/09/18; Removal Time: 934 Chest Tube Placement Date: 08/07/18 1038 by 08/09/18 1409 b y 08/07/18; Placement Sybil Kang Harrison, Alex S, Time: 1038; Inserted by: Radha Rodriguez MD; Tube Number: 1; Location: Pleural; Size: 28 Fr; Drainage System: Digital (Thopaz); Removal Date: 08/09/18; Removal Time: 1409; Removal Reason: Criteria for drain removal met (RETIRED) Incision 08/07/18; 1103; Flank; 08/07/18 1103 by 01/17 1418 by Left; Left Superior; [facility] D[facility] 16 PLY 4X4 (x1); R.NElvi nd, Lisa eduling 01/17/21 ([facility]); 1418 (Removed by background completion utility) (RETIRED) Incision 08/07/18; 1103; Flank; 08/07/18 1103 by 01/17 1418 by Left; Posterior Medial [facility] left; DRSG GZ 16 PLY R.N. nd, Schedul ing 4X4; 01/17/21 (Removed Automated Batch Job by background completion utility); 1418 (Removed by background completion utility) (RETIRED) Incision 08/07/18; 1103; Flank; 08/07/18 1103 by 01/17 1418 by Left; Anterior Medial Sybil Kang, [facility] inic-Backgrou Left; DRSG GZ 16 PLY R.N. nd, Schedul ing 4X4; 01/17/21 (Removed Automated Batch Job by background completion utility); 1418 (Removed by background completion utility) documented in this encounter Social History Tobacco Use Types Packs/Day Years Used Date Smoking Tobacco: Former Cigarettes 05 23 Quit : 2004 Smokeless Tobacco: Never Alcohol Use Standard Drinks/Week Comments No 0 (1 standard drink = 0.6 oz pure alcoho l) Sex Assigned at Date Recorded Not on file documented as of this encounter OR Notes Anesthesia Postprocedure Evaluation - Ziggy Calixto M.D. - 08/07/2018 12:37 PM CDT Patient: Sarah Reyes Procedure Summary Date: 08/07/18 Room / Location: [place] [address] / [facility] in [place], [place] Anesthesia Start: 0739 Anesthesia Stop: 1150 Procedure: THORACOSCOPY, WEDGE RESECTION LUNG. (Left ) Diagnosis: (lung nodule.) Provider: Fany Lyn M.D. Responsible Provider: Ziggy Calixto M.D. Anesthesia Type: general ASA Status: 3 Anesthesia Type: general Last vitals Vitals Value Taken Time BP 124/66 08/07/2018 12:30 PM Temp 35.8 ??C 08/07/2018 12:00 PM Pulse 99 08/07/2018 12:37 PM Resp 9 08/07/2018 12:37 PM SpO2 93 % 08/07/2018 12:37 PM Vitals shown include unvalidated device data. Please reference Vitals flowsheet for most recent vital signs. Anesthesia Post Evaluation Patient Disposition: general care unit Cardiovascular status: hemodynamics (HR & BP) acceptable Respiratory status: patent airway with spontaneous effort Temperature: normothermic Oxygen requirements: room air Level of consciousness: awake Pain score: pain adequately controlled and/or at baseline Post Op nausea/vomiting: none Hydration status: euvolemic Anesthesia Procedure Notes - MayYulia APRN, CRNA - 08/07/2018 8:29 AM CDT Associated Order(s): AIRWAY MANAGEMENT Airway Date/Time: 08/07/2018 7:51 AM Patient location during procedure: OR / Procedure Area Performed by: YULIA ROSARIO Authorized by: ZIGGY CALIXTO Pre procedure details Pre evaluation for airway management: procedure Urgency: elective Preop assessment of probable difficulty: no difficulty anticipated Sedation level: anesthetized Preoxygenation: bag valve mask Procedure details Mask difficulty assessment: oral/nasal airway needed Final airway type: direct laryngoscopy, intubation Laryngeal Manipulation: no Final airway difficulty of direct laryngoscopy (DL): 0-easy Final best view of glottic structures - Cormack/Lehane Score: grade 2A ETT location: oral Adult blade type: Parrish 2 Adult tube size: 35 Adult ETT distance at teeth/gum: 24 Oral tube type: double lumen left Cuffed: yes Number of attempt to successful placement: 1 Airway confirmation: bilateral breath sounds, positive ETCO2 and bilateral chest rise Other previous techniques attempted: none Post procedure details Procedure outcome: successful Airway event: no complications Anesthesia Procedure Notes - Yulia Rosario APRN, CRNA - 08/07/2018 8:28 AM CDT Associated Order(s): MC ANE INVASIVE CATHETER Invasive Catheter Performed by: YULIA ROSRAIO Authorized by: ZIGGY CALIXTO Location: OR Pre-procedure prep: Appropriate hand hygiene, gown, cap, mask, protective eyewear, sterile gloves, skin preparation, sterile drape, and strict aseptic technique were utilized as applicable for the procedure.: yes Skin preparation: chlorhexidine Sedation/Anesthesia (see MAR for exact dosages): Anesthesia method: none Procedure details: Line type: arterial Laterality: left Location: radial Location details: new site Age group: adult Catheter diameter: 20 Ga Technique: palpation Monitored: yes Number of attempts: 2 Post-procedure details: Procedure completed successfully: yes Line secured: secured with sutureless device Chlorhexidine disc around insertion site and under catheter with slight turn: yes Complications - arterial: none Anesthesia Preprocedure Evaluation - Ziggy Calixto M.D. - 08/07/2018 6:58 AM CDT Anesthesia Pre-Evaluation Pertinent components of the patient's history including current problem list, medical history, surgical history, family history, social history, medications and allergies were reviewed and updated as appropriate. The patient was examined and the Pre-op diagnosis, planned procedure, and H&P were reviewed and remain unchanged. PROBLEM LIST Relevant Problems RESP (+) Asthma Mild Intermittent (HCC) ENDO (+) Diabetes Mellitus Type 2 (HCC) GENETICS (+) Metabolic Syndrome Other (+) Apnea Sleep Obstructive (+) Edema Localized (+) Malignant Neoplasm Of Lung Adenocarcinoma Left (HCC) (+) Morbid obesity (CMS/HCC) (HCC) (+) Nodule Pulmonary (+) Nonrheumatic Mitral Valve Insufficiency (+) Other Usp Current Drug Therapy (+) Schizophrenia (HCC) OBJECTIVE PHYSICAL EXAMINATION Airway (HEENT) Mallampati: II Cardiovascular Rhythm: Regular Pulmonary Pulmonary Assessment: Clear ASSESSMENT / PLAN ANESTHESIA PLAN ASA: 3 Anesthesia Plan: general Patient seen and allergies reviewed; anesthesia plan and risks discussed directly with patient / legal guardian, or through an conference interpreter; patient evaluated and approved for anesthesia / sedation. Use of blood products discussed with patient who consented to blood products. documented in this encounter Miscellaneous Notes Addendum Note - Elder Muller M.D. - 08/07/2018 2:01 PM CDT Addendum created 08/07/18 1401 by Elder Muller M.D. Order list changed documented in this encounter Plan of Treatment Not on filedocumented as of this encounter Procedures Procedure Name Priority Date/Time Associated Comments Diagnosis LDA ANE ENDOTRACHEAL Routine 08/07/2018 8:29 AM R esults for this AIRWAY CDT procedure are i n the results section. LDA ANE ARTERIAL LINE Routine 08/07/2018 8:28 AM Results for this INSERTION CDT procedure are i n the results section. [place] ARTL CATH/CNULA Routine 08/07/2018 8:28 AM Res ults for this MONITOR PERC CDT procedure are i n the results section. documented in this encounter Results LDA ANE ENDOTRACHEAL AIRWAY (08/07/2018 8:29 AM CDT) Narrative Yulia Rosario APRN, CRNA - 08/07/2018 8 :29 AM CDT Yulia Rosario APRN, CRNA ? 08/07/2018 ??8:29 AM Airway Date/Time: 08/07/2018 7:51 AM Patient location during procedure: OR / Procedure Area Performed by: YULIA ROSARIO Authorized by: ZIGGY CALIXTO Pre procedure details ?? Pre evaluation for airway management : procedure ?? Urgency: elective ?? Preop assessment of probable difficu lty: no difficulty anticipated ?? Sedation level: anesthetized ?? Preoxygenation: bag valve mask Procedure details ??Mask difficulty assessment: oral/nasa l airway needed ?? Final airway type: direct laryngosco py, intubation Laryngeal Manipulation: no ? Final airway difficulty of direct la ryngoscopy (DL): 0-easy ?? Final best view of glottic structure s - Cormack/Lehane Score: grade 2A ?? ETT location: oral ?? Adult blade type: Parrish 2 ?? Adult tube size: 35 ?? Adult ETT distance at teeth/gum: 24 ?? Oral tube type: double lumen left ?? Cuffed: yes ?? Number of attempt to successful plac ement: 1 ?? Airway confirmation: bilateral breat h sounds, positive ETCO2 and bilateral chest rise ?? Other previous techniques attempted: none Post procedure details ?? Procedure outcome: successful ? Airway event: no complications Procedure Note Yulia Rosario APRN, CRNA - 08/07/2018 8 :29 AM CDT Airway Date/Time: 08/07/2018 7:51 AM Patient location during procedure: OR / Procedure Area Performed by: YULIA ROSARIO Authorized by: ZIGGY CALIXTO Pre procedure details Pre evaluation for airway management: p rocedure Urgency: elective Preop assessment of probable difficulty : no difficulty anticipated Sedation level: anesthetized Preoxygenation: bag valve mask Procedure details Mask difficulty assessment: oral/nasal airway needed Final airway type: direct laryngoscopy, intubation Laryngeal Manipulation: no Final airway difficulty of direct laryn goscopy (DL): 0-easy Final best view of glottic structures - Cormack/Lehane Score: grade 2A ETT location: oral Adult blade type: Parrish 2 Adult tube size: 35 Adult ETT distance at teeth/gum: 24 Oral tube type: double lumen left Cuffed: yes Number of attempt to successful placeme nt: 1 Airway confirmation: bilateral breath s ounds, positive ETCO2 and bilateral chest rise Other previous techniques attempted: no ne Post procedure details Procedure outcome: successful Airway event: no complications Ziggy Calixto M.D. ANESTHESIA ORDERABLES AZ ARTL CATH/CNULA MONITOR PERC, LDA ANE ARTERIAL LINE INSERTION (08/07/2018 8:28 AM CDT) Narrative Yulia Rosario APRN, CRNA - 08/07/2018 8 :28 AM CDT Yulia Rosario APRN, CRNA ? 08/07/2018 ??8:29 AM Invasive Catheter Performed by: YULIA ROSARIO Authorized by: ZIGGY CALIXTO Location: OR Pre-procedure prep: ??Appropriate hand hygiene, gown, cap, mask, protective eyewear, sterile gloves, skin preparation, sterile drape, and strict aseptic technique were utilized as applicable for the procedure .: yes ?Skin preparation: chlorhexidine ?? Sedation/Anesthesia (see MAR for exact d osages): ??Anesthesia method: none Procedure details: ??Line type: arterial ?Laterality: left ??Location: radial ??Location details: new site ?Age group: adult ??Catheter diameter: 20 Ga ??Technique: palpation ?Monitored: yes ?Number of attempts: 2 Post-procedure details: ??Procedure completed successfully: yes ?Line secured: secured with sutureless device ??Chlorhexidine disc around insertion s ite and under catheter with slight turn: yes ?Complications - arterial: none Procedure Note Yulia Rosario APRN, CRNA - 08/07/2018 8 :28 AM CDT Invasive Catheter Performed by: YULIA ROSARIO Authorized by: ZIGGY CALIXTO Location: OR Pre-procedure prep: Appropriate hand hygiene, gown, cap, ma sk, protective eyewear, sterile gloves, skin preparation, sterile drape, and strict aseptic technique were utilized as applicable for the procedure.: yes Skin preparation: chlorhexidine Sedation/Anesthesia (see MAR for exact d osages): Anesthesia method: none Procedure details: Line type: arterial Laterality: left Location: radial Location details: new site Age group: adult Catheter diameter: 20 Ga Technique: palpation Monitored: yes Number of attempts: 2 Post-procedure details: Procedure completed successfully: yes Line secured: secured with sutureless d evice Chlorhexidine disc around insertion sit e and under catheter with slight turn: yes Complications - arterial: none Ziggy Calixto M.D. PROCEDURE/MINOR SURGICAL ORD ERABLES documented in this encounter Visit Diagnoses Not on filedocumented in this encounter Administered Medications Inactive Administered Medications - up to 3 most recent administrations Medication Order [facility] Action Action Date Dose Rate Site albuterol 90 mcg/actuation Given 08/07/2018 9:29 AM CDT 6 puffs inhaler (PROVENTIL HFA,VENTOLIN HFA) As needed, wheezing, shortness of breath, Starting on Nereyda 08/07/18 at 0929, Anesthesia Intra-op ceFAZolin injection 2,000 mg (ANCEF) Given 08/07/2018 8:51 AM CDT 2 g 2,000 mg (rounded from 2,477.5 mg = 25 m g/kg ? 99.1 kg), intravenous, Once, On Nereyda 08/07/18 at 0815, For 1 dose, Intra-Op, Preoperatively within 1 hour prior to surgical incision [place] IV push over 3 minutes. Add 5 mL NS to 1 gram vial for a final concentration of 200 mg/mL., Drug Monitoring Program: Pharmacist to adjust medication dosing based on indication and drug clearance factors., Indications: Prophylaxis, surgical dexamethasone injection (DECADRON) Given 08/07/2018 10:55 AM CDT 4 mg As needed, Starting on Nereyda 08/07/18 at 1055, Anesthesia Intra-op ePHEDrine (PF) injection Given 08/07/2018 11:25 AM CDT 10 mg intravenous, As needed, Starting on Nereyda 08/07/18 at 0825, Anesthesia Intra-op Given 08/07/2018 10:05 AM CDT 15 mg Given 08/07/2018 10:00 AM CDT 5 mg fentaNYL injection (SUBLIMAZE) Given 08/07/2018 11:25 AM CDT 50 mcg intravenous, As needed, severe pain or score 7-10 of 10, Starting on Nereyda 08/07/18 at 0753, Anesthesia Intra-op Given 08/07/2018 9:20 AM CDT 100 mcg Given 08/07/2018 7:53 AM CDT 50 mcg glycopyrrolate injection (ROBINUL) Given 08/07/2018 8:50 AM CDT 0.4 mg intravenous, As needed, Starting on Nereyda 08/07/18 at 0850, Anesthesia Intra-op lactated ringers New Bag 08/07/2018 7:48 AM CDT intravenous, Continuous Infusion: Per Instructions PRN, Starting on Nereyda 08/07/18 at 0748, Anesthesia Intra-op lactated ringers New Bag 08/07/2018 8:28 AM CDT intravenous, Continuous Infusion: Per Instructions PRN, Starting on Nereyda 08/07/18 at 0828, Anesthesia Intra-op lidocaine (PF) (cardiac) injection Given 08/07/2018 7:48 AM CDT 100 mg intravenous, As needed, Starting on Nereyda 08/07/18 at 0748, Anesthesia Intra-op ondansetron (PF) injection (ZOFRAN) Given 08/07/2018 11:40 AM CDT 4 mg intravenous, As needed, nausea, vomiting, Starting on Nereyda 08/07/18 at 1140, Anesthesia Intra-op phenylephrine 80 mcg/mL Rate/Dose Change 08/07/2018 10:25 0.8 mcg/k g/min 64.2 mL/hr in NaCl 0.9% 250 mL AM CDT infusion 0.1-1 mcg/kg/min ? 107 kg Dosing weight (8.025-80.25 mL/hr, rounded to 8.03-80.25 mL/hr), intravenous, Continuous, Starting on Nereyda 08/07/18 at 0945, Intra-Op, Premix ba mg in 250 mL, Titrate: Per Provider Rate/Dose Change 08/07/2018 10:15 AM CDT 0.6 mcg/kg/min 48.2 mL/hr Rate/Dose Change 08/07/2018 10:10 AM CDT 0.8 mcg/kg/min 64.2 mL/hr phenylephrine injection Given 08/07/2018 11:25 AM CDT 200 mcg intravenous, As needed, Starting on Nereyda 08/07/18 at 0825, Anesthesia Intra-op Given 08/07/2018 10:05 AM CDT 200 mcg Given 08/07/2018 10:00 AM CDT 200 mcg propofol injection (DIPRIVAN) Given 08/07/2018 7:48 AM CDT 150 mg intravenous, As needed, Starting on Nereyda 08/07/18 at 0748, Anesthesia Intra-op sugammadex injection (BRIDION) Given 08/07/2018 11:40 AM CDT 200 mg As needed, Starting on Nereyda 08/07/18 at 1140, Anesthesia Intra-op vasopressin injection (PITRESSIN) Given 08/07/2018 11:25 AM CDT 1 Units As needed, Starting on Nereyda 08/07/18 at 1013, Anesthesia Intra-op Given 08/07/2018 10:27 AM CDT 1 Units Given 08/07/2018 10:13 AM CDT 1 Units vecuronium injection (NORCURON) Given 08/07/2018 10:01 AM CDT 3 mg As needed, Starting on Nereyda 08/07/18 at 0748, Anesthesia Intra-op Given 08/07/2018 9:16 AM CDT 5 mg Given 08/07/2018 7:48 AM CDT 10 mg documented in this encounter
--- OUTSIDE RECORDS SUMMARY | 2022-03-01 10:17 | XMS_ITS | Encounter Summary ---
:1955 Author Organization [facility] Address [address] [place] [address] Care Team Providers Name Role Phone Unavailable Primary Care Provider Unavailable Encounter Details Date Type Department Care Team Description 08/07/2018 Surgery RST TRICIA BRISCOE OR Fany Lyn THORACOSCOPY, [facility] [address] [facility] Jamar Mitchell RESECTION LUNG. [place] [address] [facility] [address] [place], [place] [phone] (Wo rk) Social History Tobacco Use Types Packs/Day Years Used Date Smoking Tobacco: Former Cigarettes 1 Quit : 2004 Smokeless Tobacco: Never Alcohol Use Standard Drinks/Week Comments No 0 (1 standard drink = 0.6 oz pure alcoho l) Sex Assigned at Date Recorded Not on file documented as of this encounter Last Filed Vital Signs Vital Sign Reading Time Taken Comments Blood Pressure 130/74 08/07/2018 6:40 AM CDT Pulse 99 08/07/2018 6:40 AM CDT Temperature 36.6 ??C (97.8 ??F) 08/07/2018 6:40 AM CDT Respiratory Rate 16 08/07/2018 6:40 AM CDT Oxygen Saturation 96% 08/07/2018 6:40 AM CDT Inhaled Oxygen Concentration - - Weight 107 kg (235 lb 14.3 oz) 08/07/2018 6:40 AM CDT Height 165.1 cm (5' 5) 08/07/2018 6:40 AM CDT Body Mass Index 37.71 08/08/2018 [...] Case IDs Date Procedure Surgeon Location Status [id number] 08/07/18 THORACOSCOPY, WEDGE RESECTION LUNG. Fany Lyn [...] Discharge information provided on 08/09/2018 Contact information: [facility], 1 [facility]: [phone] documented in this encounter Medications at Time [...] Activity Level: Answer: Up Ad Robyn 08/07/18 2075 Precautions Other Precautions: fall, impulsive, cognition, respiratory, [...] daily living. Session ended upon entrance of adoption social worker. Therapeutic Exercise - ROM ROM: Yes Other [...] Handouts provided today: Exercises after chest surgery [id number] Communication: The patient's nurse was contacted and patient's status was discussed. Patient was left in bedside chair at end of session with call light in reach, all needs met and questions answered. Outcome Measures Current ADL Status: [facility] Inpatient Short Form: Putting on and taking [...] CMS Modifier: CK Interpretation: Clinicians answer the [facility] Inpatient Short Form based on observed patient [...] Note SUBJECTIVE Patient's Name: Sarah Reyes Referring/Attending: Fany Lyn M.D. Medical Diagnosis: Nodule [...] path deviation Stairs # of Assistants: 2 (REHAB DIRECTOR also present ) Level of Assistance: Minimal [...] % Basic Mobility CMS Modifier: CAROLINA Mehta PYan Sharmaine Arias L.I.C.S.W., M.S.W. - 08/11/2018 11:29 [...] someone coming infor lab draws once/month through [facility]. Patient and her sister confirmed that [...] Social work will continue to follow Abhinav Roberts, M.S.W. 08/11/2018 DAT Chetan Rodriguez M.D. - 08/11/2018 7:49 AM CDT AVSS, AF, on RA this morning with Sats low 90s. Voiding, tolerating PO, pain well-controlled. CT out. Plan for dismissal today. Carolyn Gonzalez, R.R.T., L.R.T. - 08/10/2018 8:21 AM CDT 08/10/18 0800 Chest Physiotherapy CPT Delivery Source Flutter valve CPT Duration 10 minutes CPT Chest Site Full range CPT Treatment Tolerance Tolerated well $Chest Physiotherapy Subsequent PEP Therapy Device Aerobika Flutter Valve Device Aerobika Continue to follow for bronchial hygiene Valentin Austin - 08/10/2018 7:53 AM CDT 08/10/18 0700 Nocturnal Oxygen Assessment Asleep Room Air SpO2 88 Percent Oxygen Flow Rate 0 L/min Nocturnal oxygen assessment completed. Patient does not meet requirements for nocturnal oxygen. Electronically signed by: Valentin Austin 08/10/18 7:53 AM Under the direction of Carolyn Gonzalez [facility] Mike Roman M.D., M.S. - 08/09/2018 10:14 [...] Lenore Fernandez R.R.T., L.R.T. 08/09/18 1:21 AM DAT Madelin David Pharm.D., R.Ph. - 08/08/2018 1:39 PM CDT Sarah Reyes is on clozapine. Home dose of clozapine is 50 mg QAM, 400 mg QHS for schizophrenia; followed at [facility] in [place] (Dr. Minna Gramajo???Fran) normally. Dose and compliance confirmed with patient by floor pharmacist last night (last dose was 410 PM). Due to the small incidence of [...] requirements, please contact the psychiatric pharmacist at [phone]. Madelin David Pharm.D., R.Ph. Jr Escobar M.D. - 08/08/2018 10:50 AM CDT SUBJECTIVE Patient's location is [place] [address] ?? I have seen and examined this [...] Tube 1 Pleural 23h days I/O 08/06 - 08/06 P.O. 400 840 Crystalloid Bolus 2.5 Maintenance [...] the PCU floor today Discharge Planning - may be Saturday Sheldon Matson M.D. Thoracic Surgery Fellow Pgr: [phone] 08/08/18 10:42 AM Fany Lyn M.D. - 08/08/2018 8:45 AM CDT The patient was seen and examined today on surgical hospital rounds. The interval inpatient progress was reviewed. I reviewed the plan with the surgical team and agree. Jeanmarie Oscar M.D. - 08/08/2018 5:51 AM CDT CCM Progress Note HISTORY OF PRESENT ILLNESS Brief [...] Pulse: 97 95 96 98 Resp: (!) Temp: TempSrc: SpO2: 90% 92% 92% 91% Weight: Height: Intake & Output Weights for the past 120 hrs (Last 3 readings): Weight 08/07/18 0640 107 kg I/O 08/06 - 08/06 P.O. 400 400 Crystalloid Bolus 2.5 Maintenance [...] from last 7 days Lab Units 08/08/18 0049 08/07/18 1628 08/07/18 1627 08/07/18 0953 SODIUM P mmol/L -- 140 -- [...] her dressings. ASSESSMENT / PLAN #1 Schizophrenia ([facility]) #2 Diabetes Mellitus Type 2 ([facility]) #3 Asthma Mild Intermittent ([facility]) #4 Obesity Body Mass Index 30-39.9 Adult [...] Date PHART 7.42 08/08/2018 PHART 7.35 08/07/2018 [id number] 44 08/08/2018 [id number] 50 (H) 08/07/2018 BEART 4 (H) 08/08/2018 [...] Full Code Jeanmarie Dunne M.D. PGY 2 [phone] DAT Jr Escobar M.D. - 08/07/2018 4:34 PM CDT SUBJECTIVE Patient's location is [place] [address] I have seen and examined this patient. [...] 0640 107 kg I/O 08/06 - 08/06 - 08/07 2358 Crystalloid Bolus 2.5 Maintenance IV 2100 Intermittent [...] fentanyl and oxycodone. Can consider a fentanyl REHAB DIRECTOR if necessary. -Hold meds: At this time [...] Date PHART 7.35 08/07/2018 PHART 7.37 08/07/2018 [id number] 50 (H) 08/07/2018 [id number] 48 (H) 08/07/2018 BEART 2 08/07/2018 BEART [...] Full Code Jeanmarie Dunne M.D. PGY 2 [phone] Carl Rodriguez M.D. - 08/07/2018 7:27 AM [...] 2 (HCC) ??? Edema Localized ??? 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 Metabolic Syndrome ??? [...] Prior Function / Occupational Profile Level of Jerauld: Independent with ADLs and functional transfers, Needs assistance with homemaking Lives With: Family (sister and [id number]) Receives Help From: Family ADL Assistance: Independent [...] Activity Level: Answer: Up Ad Robyn 08/07/18 1114 Precautions Other Precautions: fall, impulsive, cognition, respiratory, [...] Standardized Score: 42.13 Interpretation: Clinicians answer the AM-PAC Inpatient Short [...] 2 (HCC) ??? Edema Localized ??? Other Senior Living Current Drug Therapy ??? Metabolic Syndrome ??? [...] Prior Function / Occupational Profile Level of Jerauld: Independent with ADLs and functional transfers, Needs [...] Comments: Patient lives with her sister and [id number] Home Equipment Home Adaptive Equipment: None Bathroom Equipment: Shower chair with back Dominant Hand: Right Family/Caregiver Present: No Activity Orders Start Ordered 08/08/18 0600 Activity: Up Ad Robyn Until discontinued Comments: Out of bed greater than 8 hours, including 6 or more walks and sitting in chair Question: Activity Level: Answer: Up Ad Robyn 08/07/18 1445 Precautions Other Precautions: fall, impulsive, cognition, respiratory, [...] Current ADL/IADL Function ADL Comments: see AM [facility] Bed Mobility - Supine to Sit # of Assistants: 2 Level of Assistance: Moderate assistance Cuing: Visual, Verbal, Tactile Comments: from [facility] bed, icreasing assist as patient beginning to [...] questions answered. Outcome Measures Current ADL Status: -[facility] Inpatient Short Form: Putting on and taking [...] CMS Modifier: CK Interpretation: Clinicians answer the -[facility] Inpatient Short Form based on observed patient [...] to interview. Primary care clinic and provider: [facility] Primary Language: Panamanian Nerve Specialist Services Used: No Legal Information: Legal Decision [...] Family members. Primary caregiver: Self Spirituality / Restorationist / Culture: No taoism on file Employment: Unemployed Psychosocial Risk Factors [...] Communication: Can write, Talks, Understands speaking, Understands Panamanian, Reads It is anticipated that the patient will need assistance with Transfer to/from Bed, Chair, etc, Mobility, Transportation Use (drive car, use taxi/bus). ASSISTIVE DEVICES Patient has the following equipment: None Patient anticipates potentially needing the following additional equipment: Walker BUSINESS COMPUTERS TEACHER Formal and Informal Resources: Patient shares that she has someone come into the home to assist withher medications. She was not sure who this may be with. She also shared that she thinks she has a top case assembler through [facility]. Her sister is her primary support. FINANCES/INSURANCE [...] with state of illness?: No Fear of chcf/extended hospitalization?: No Coping with recent loss/disruption in [...] agency. She had previously resided in a intermediate but recently decided to move in with her sister in the [facility]. Patient is on disability. She has [...] transition of care/plan: none at this time Joelle Shaikh., M.S.W. 08/08/2018 documented in this encounter Nursing [...] with no questions. Transport was called. Madina Garibay, R.R.T., L.R.T. - 08/11/2018 9:55 AM CDT [...] L.RYan 08/11/18 9:57 AM Sabrina Morillo R.R.T., FannyR.T. - 08/10/2018 10:53 PM CDT Patient is [...] progressing well to discharge home tomorrow. Sabrina Morillo R.R.T., LElviR.T. - 08/10/2018 6:20 AM CDT Nocturnal trend orders in place for patient. RN instructed to place the patient on room air at the beginning of the study and notify the monitoring lab when patient is ready for bed. RN instructed to chart that patient was placed on room air in [facility]. RN notified that lab will call when the patient is to be placed on oxygen if needed. Will follow up with RN around 0500. End of study note: RN stated patient remained on room air with home PAP device for nocturnal oxygen study. Electronically signed by: Sabrina Morillo R.R.T., Garcia 08/10/18 6:31 AM ADT Sabrina Morillo R.R.T., FannyRElviT. - 08/09/2018 10:45 PM CDT Patient is [...] ART in the last 24 hours. Esvin Savage RElviN. - 08/09/2018 5:28 PM CDT Compromised Skin [...] the day. Chest tube was removed by COMPUTER TECHNOLOGY TRAINER in the afternoon. Patient improved from a pulmonary standpoint with much focus on encouraging coughing, deep breathing, and incentive spirometer use. Hoping to discharge home tomorrow. Carolyn Gonzalez R.R.T., L.R.T. - 08/09/2018 10:02 AM CDT 63 [...] Left Radial (Active) Placement Date/Time: 08/07/18 (c) 3294 Hand Hygiene Performed Prior to Insertion: Yes [...] Left Radial (Active) Placement Date/Time: 08/07/18 (c) 0866 Hand Hygiene Performed Prior to Insertion: Yes [...] fr chest tube Surgeon(s) and Role: * Fnay Lyn M.D. - Primary * Carl Rodriguez [...] here for safety reasons. A single 28 pitcairn islander chest tube was directed towards the apex. [...] Tissue Lung, Left Lower Lobe SURGICAL PATHOLOGY, Fany Fernandez M.D. 08/07/2018 1027 Drains [REMOVED] Chest Tube [...] 2 nodes) Tissue Lymph Node SURGICAL PATHOLOGY, [facility] Fany Lyn M.D. 08/07/2018 1015 C [...] Name Type Priority Associated Diagnoses Order S [facility] Thoracic Surgery Outpatient Referral Routine Malignant Neoplas [...] Provider LAB POCT ORDERABLES-MANUAL Performing Organization Address City/[facility] [address] [facility] Code Phon e Number [facility]OC [facility] [address] [place] [address] Glucose, POCT (08/11/2018 9:23 AM CDT) Analysis [...] Provider LAB POCT ORDERABLES-MANUAL Performing Organization Address City/[facility] [address]/[facility] Code Phon e Number POC [facility] [address] [place] [address] Glucose, POCT (08/11/2018 6:10 AM CDT) Analysis [...] Provider LAB POCT ORDERABLES-MANUAL Performing Organization Address City/[facility] [address]/[facility] Code Phon e Number [facility]OC [facility] [address] [place] [address] Glucose, POCT (08/10/2018 10:20 PM CDT) P athologist Signature Glucose, POCT, 126 70 - 140 08/10/2018 [facility] mg/dL 10:27 PM CDT SERVICES Specimen Anatomical Collection Method Collection Time Receive d Time (Source) Location / / Volume Laterality Blood 08/10/2018 10:20 08/10/2018 PM CDT 10:27 PM CDT Unknown Provider LAB POCT ORDERABLES-MANUAL Performing Organization Address City/[facility] [address]/[facility] Phon e Number POC [facility] [address] [place] [address] Glucose, POCT (08/10/2018 6:19 PM CDT) Analysis [...] Provider LAB POCT ORDERABLES-MANUAL Performing Organization Address [facility] Phon e Number POC [facility] [address] [place] [address] (ABNORMAL) Glucose, POCT (08/10/2018 12:12 PM CDT) [...] Provider LAB POCT ORDERABLES-MANUAL Performing Organization Address City/[facility] [address]/[facility] Phon e Number [facility] [address] [place] [address] Glucose, POCT (08/10/2018 8:06 AM CDT) Analysis [...] Provider LAB POCT ORDERABLES-MANUAL Performing Organization Address [facility] Phon e Number POC [facility] [address] [place] [address] (ABNORMAL) Glucose, POCT (08/09/2018 9:32 PM CDT) [...] Provider LAB POCT ORDERABLES-MANUAL Performing Organization Address [facility] Phon e Number POC [facility] [address] [place] [address] Glucose, POCT (08/09/2018 5:49 PM CDT) Analysis [...] Provider LAB POCT ORDERABLES-MANUAL Performing Organization Address [facility] Phon e Number POC [facility] [address] [place] [address] DX Chest AP or PA and Lateral [...] LATERAL 2 VIEWS Procedure Note Isiah Vasquez M.B.B.S., M.D. - EXAM: DX CHEST AP OR PA [...] Degenerative changes in the spine. Madina Nieves APRN C.N.P. IMG DIAGNOSTIC IMAGING [place] OCEDURES Glucose, POCT (08/09/2018 12:31 PM CDT) [...] [facility] [address] [place] [address] DX Chest AP or PA and Lateral [...] No significant change since yesterday. Arabella T Tye Hwang APRN.N.P., M.S.N. IMG DIAGNOSTIC I MAGING PROCEDURES Glucose, [...] Provider LAB POCT ORDERABLES-MANUAL Performing Organization Address City/[facility] [address]/[facility] Code Phon e Number POC [facility] [address] [place] [address] Glucose, POCT (08/08/2018 4:53 PM CDT) Analysis [...] Provider LAB POCT ORDERABLES-MANUAL Performing Organization Address City/[facility] [address]/[facility] Code Phon e Number POC [facility] [address] [place] [address] (ABNORMAL) Glucose, POCT (08/08/2018 12:37 PM CDT) [...] Provider LAB POCT ORDERABLES-MANUAL Performing Organization Address City/[facility] [address]/[facility] Phon e Number POC [facility] [address] [place] [address] Glucose, POCT (08/08/2018 7:54 AM CDT) P [...] Address City/State/ZIP Code Phon e Number POC [facility] [address] [place] [address] DX Chest Portable 1 View (08/08/2018 5:45 [...] significant pleural effusion. No pneumot horax. Jonny POTTER DIAGNOSTIC IMAGING PROCE DURES Patient Status (08/08/2018 12:54 AM CDT) P athologist Signature FIO2 0.21 0.21=AIR 08/08/2018 [facility] 12:54 AM CDT [facility] Device NPAP 08/08/2018 [facility] 12:54 AM CDT [facility] Spont. 18 08/08/2018 [facility] breaths/min 12:54 AM CDT [facility] Specimen Anatomical Collection Method Collection Time Receive d Time (Source) Location / / Volume Laterality Blood 08/08/2018 12:54 08/08/2018 AM CDT 12:54 AM CDT Jeanmarie Dunne M.D. LAB BLOOD NON ADD-ON Performing Organization Address City/State/ZIP Code Phon e Number [facility] LABORATORIES - [address] [place], [place] [address] [facility] (ABNORMAL) Blood Gas with Coox, Arterial (08/08/2018 12:54 AM CDT) [facility] Method Time Signature pO2 75 (L) 83 - 108 08/08/2018 [facility] mm Hg 12:57 AM CDT LABORATORIES [facility] pCO2 44 32 - 45 08/08/2018 [facility] mm Hg 12:57 AM CDT [facility] pH 7.42 7.35 - 08/08/2018 [facility] 7.45 pH 12:57 AM CDT [facility] Base Excess 4 (H) -2 - 3 08/08/2018 [facility] mmol/L 12:57 AM CDT [facility] HCO3 28 (H) 22 - 26 08/08/2018 [facility] mmol/L 12:57 AM CDT [facility] Hemoglobin, B 10.3 (L) 11.6 - 08/08/2018 [facility] 15.0 g/dL 12:57 AM CDT [facility] O2Hb 93.2 (L) 94.0 - 08/08/2018 [facility] 98.0 % 12:57 AM CDT LABORATORIES [facility] COHb 2.1 <3.0 % 08/08/2018 [facility] 12:57 AM CDT LABORATORIES [facility] MetHb <1.0 <1.5 % 08/08/2018 [facility] 12:57 AM CDT LABORATORIES [facility] CtO2 13.6 (L) 18.0 - 08/08/2018 [facility] 21.0 vol 12:57 AM CDT LABORATORIES - [facility] Arterial Art Line 08/08/2018 [facility] Sample Site 12:57 AM CDT [facility] Specimen Anatomical Collection Method Collection Time Receive d Time (Source) Location / / Volume Laterality Blood (Blood, 08/08/2018 12:54 08/08/2018 Arterial) AM CDT 12:50 AM CDT Jeanmarie Dunne M.D. LAB BLOOD NON ADD-ON Performing Organization Address City/State/ZIP Code Phon e Number [facility] LABORATORIES - [address] [place], [place] [address] [facility] (ABNORMAL) CBC with Differential, Blood (08/08/2018 12:49 AM CDT) [facility] Method Time Signature Hemoglobin 10.2 (L) 11.6 - 08/08/2018 [facility] 15.0 g/dL 1:17 AM CDT LABORATORIES - [facility] Hematocrit 32.5 (L) 35.5 - 08/08/2018 [facility] 44.9 % 1:17 AM CDT LABORATORIES - [facility] Erythrocytes 3.64 (L) 3.92 - 08/08/2018 [facility] 5.13 1:17 AM CDT LABORATORIES - x10(12)/L [facility] MCV 89.3 78.2 - 08/08/2018 [facility] 97.9 fL 1:17 AM CDT LABORATORIES - [facility] RBC Distrib 14.0 12.2 - 08/08/2018 [facility] Width 16.1 % 1:17 AM CDT LABORATORIES - [facility] Platelet Count 223 157 - 371 08/08/2018 [facility] x10(9)/L 1:17 AM CDT LABORATORIES - [facility] Leukocytes 7.3 3.4 - 9.6 08/08/2018 [facility] x10(9)/L 1:17 AM CDT LABORATORIES - [facility] Neutrophils 6.40 1.56 - 08/08/2018 [facility] 6.45 1:17 AM CDT LABORATORIES - x10(9)/L [facility] Lymphocytes 0.48 (L) 0.95 - 08/08/2018 [facility] 3.07 1:17 AM CDT LABORATORIES - x10(9)/L [facility] Monocytes 0.42 0.26 - 08/08/2018 [facility] 0.81 1:17 AM CDT LABORATORIES - x10(9)/L [facility] Eosinophils <0.03 0.03 - 08/08/2018 [facility] 0.48 1:17 AM CDT LABORATORIES - x10(9)/L [facility] Basophils <0.03 0.01 - 08/08/2018 [facility] 0.08 1:17 AM CDT LABORATORIES - x10(9)/L [facility] Specimen Anatomical Collection Method Collection Time Receive d Time (Source) Location / / Volume Laterality Blood (Blood, 08/08/2018 12:49 08/08/2018 1:10 Venous) AM CDT AM CDT Jeanmarie Dunne M.D. LAB BLOOD ADD-ON Performing Organization Address City/State/ZIP Code Phon e Number [facility] LABORATORIES - [address] [place], [place] [address] [facility] (ABNORMAL) Basic Metabolic Panel (08/08/2018 12:49 AM CDT) [facility] gist Method Time Signature Potassium, S 4.6 3.6 - 5.2 08/08/2018 [facility] mmol/L 1:50 AM CDT LABORATORIES - [facility] Sodium, S 142 135 - 145 08/08/2018 [facility] mmol/L 1:50 AM CDT LABORATORIES - [facility] Chloride, S 103 98 - 107 08/08/2018 [facility] mmol/L 1:50 AM CDT LABORATORIES - [facility] Bicarbonate, S 27 22 - 29 08/08/2018 [facility] mmol/L 1:50 AM CDT LABORATORIES - [facility] Anion Gap 12 7 - 15 08/08/2018 [facility] 1:50 AM CDT LABORATORIES - [facility] BUN (Blood 12 6 - 21 08/08/2018 [facility] Urea mg/dL 1:50 AM CDT LABORATORIES - Nitrogen), S [facility] Creatinine 0.53 (L) 0.59 - 08/08/2018 [facility] 1.04 1:50 AM CDT LABORATORIES - mg/dL [facility] eGFR-Non >90 >=60 08/08/2018 [facility] Black/ mL/min/BS 1:50 AM CDT LABORATORIES - [place] A [facility] Comment: ----ADDITIONAL INFORMATION---- Estimated GFR calculated using the 2009 CKD_EPI creatinine equation. eGFR-Black/ >90 >=60 mL/min/BSA 08/08/2018 1:50 [facility] [place] AM CDT LABORATORIES - [facility] Comment: ----ADDITIONAL INFORMATION---- Estimated GFR calculated using the 2009 CKD_EPI creatinine equation. Calcium, Total, S 8.8 8.8 - 10.2 mg/dL 08/08/2018 1:50 AM [facility] CDT LABORATORIES - [facility] S Glucose, S 134 70 - 140 mg/dL 08/08/2018 1:50 AM [facility] CDT LABORATORIES - [facility] S Specimen Anatomical Collection Method Collection Time Receive d Time (Source) Location / / Volume Laterality Blood (Blood, 08/08/2018 12:49 08/08/2018 1:10 Venous) AM CDT AM CDT Jeanmarie Dunne M.D. LAB BLOOD ADD-ON Performing Organization Address City/[facility]/ZIP Code Phon e Number [facility] LABORATORIES - [address] [place], [place] [address] [facility] (ABNORMAL) Glucose, POCT (08/07/2018 10:05 [...] Provider LAB POCT ORDERABLES-MANUAL Performing Organization Address [facility] Phon e Number POC [facility] [address] [place] [address] Glucose, POCT (08/07/2018 5:53 PM CDT) Analysis [...] Provider LAB POCT ORDERABLES-MANUAL Performing Organization Address [facility]/ZIP [facility] [facility] Phon e Number POC [facility] [address] [place] [address] IV Placement Attempt No upper extremity site restrictions (08/07/2018 4:40 PM CDT) [facility] [employer] Method Time Signature IV Placement Successful 08/07/2018 [facility] Attempt 4:40 PM CDT LABORATORIES - [facility] Specimen Anatomical Collection Method Collection Time Receive d Time (Source) Location / / Volume Laterality 08/07/2018 4:40 PM 9 4:40 CDT PM CDT Jr Escobar M.D. IV THERAPY ORDERABLES Performing Organization Address City/State/ZIP Code Phon e Number [facility] LABORATORIES - [address] [place], [place] [address] [facility] (ABNORMAL) Basic Metabolic Panel (08/07/2018 4:28 PM CDT) [facility] [employer] Method Time Signature Potassium, P 4.1 3.6 - 5.2 08/07/2018 [facility] mmol/L 4:48 PM CDT LABORATORIES - [facility] Sodium, P 140 135 - 145 08/07/2018 [facility] mmol/L 4:48 PM CDT LABORATORIES - [facility] Chloride, P 101 98 - 107 08/07/2018 [facility] mmol/L 4:48 PM CDT LABORATORIES - [facility] Bicarbonate, P 28 22 - 29 08/07/2018 [facility] mmol/L 4:48 PM CDT LABORATORIES - [facility] Anion Gap, P 11 7 - 15 08/07/2018 [facility] 4:48 PM CDT LABORATORIES - [facility] BUN (Blood 13 6 - 21 08/07/2018 [facility] Urea mg/dL 4:48 PM CDT LABORATORIES - Nitrogen), P [facility] Creatinine 0.49 (L) 0.59 - 08/07/2018 [facility] 1.04 4:48 PM CDT LABORATORIES - mg/dL [facility] eGFR-Black/Afr >90 >=60 08/07/2018 [facility] ican Senegalese mL/min/BS 4:48 PM CDT LABORATORIES - A [facility] Comment: ----ADDITIONAL INFORMATION---- Estimated GFR calculated using the 2009 CKD_EPI creatinine equation. eGFR Non-Black/ >90 >=60 mL/min/BSA 08/07/2018 4:48 [facility] Senegalese PM CDT LABORATORIES - [facility] Comment: ----ADDITIONAL INFORMATION---- Estimated GFR calculated using the 2009 CKD_EPI creatinine equation. Calcium, Total, P 8.7 (L) 8.8 - 10.2 08/07/2018 4:48 PM [facility] mg/dL CDT LABORATORIES - [facility] Glucose, P 146 (H) 70 - 140 mg/dL 08/07/2018 4:48 PM [facility] CDT LABORATORIES - [facility] Specimen Anatomical Collection Method Collection Time Receive d Time (Source) Location / / Volume Laterality Blood (Blood, 08/07/2018 4:28 PM 08/08/19 19 4:30 Venous) CDT PM CDT Jeanmarie Dunne M.D. LAB BLOOD ADD-ON Performing Organization Address City/[facility] [address]/ZIP Code Phon e Number [facility] LABORATORIES - [address] [place] [phone] [facility] pH (08/07/2018 4:27 PM CDT) P athologist Signature pH 7.37 7.35 - 7.45 08/07/2018 [facility] pH 4:32 PM CDT LABORATORIES - [facility] Specimen Anatomical Collection Method Collection Time Receive d Time (Source) Location / / Volume Laterality Blood 08/07/2018 4:27 PM 9 4:30 CDT PM CDT Jeanmarie Dunne M.D. LAB HISTORICAL ORDERS Performing Organization Address City/State/ZIP Code Phon e Number [facility] LABORATORIES - [address] [place] [address] [facility] Fibrinogen (08/07/2018 4:27 PM CDT) P athologist Signature Fibrinogen, P 383 200 - 393 08/07/2018 [facility] mg/dL 4:42 PM CDT LABORATORIES - [facility] Specimen Anatomical Collection Method Collection Time Receive d Time (Source) Location / / Volume Laterality Blood (Blood, 08/07/2018 4:27 PM 08/08/19 19 4:30 Venous) CDT PM CDT Jeanmarie Dunne M.D. LAB BLOOD ADD-ON Performing Organization Address City/[facility] [address]/ZIP Code Phon e Number [facility] LABORATORIES - [address] [place] [phone] [facility] Prothrombin Time (PT/INR) (08/07/2018 4:27 PM CDT) Patholo gist Method Time Signature Prothrombin 10.4 9.4 - 12.5 08/07/2018 [facility] Time, P sec 4:42 PM CDT LABORATORIES - [facility] INR 1.0 0.9 - 1.1 08/07/2018 [facility] 4:42 PM CDT LABORATORIES - [facility] Comment: ----ADDITIONAL INFORMATION---- Standard intensity warfarin therapeutic range: 2.0 to 3.0 ?? High intensity warfarin therapeutic rang e: 2.5 to 3.5 Specimen Anatomical Collection Method Collection Time Receive d Time (Source) Location / / Volume Laterality Blood (Blood, 08/07/2018 4:27 PM 08/08/19 19 4:30 Venous) CDT PM CDT Jeanmarie Dunne M.D. LAB BLOOD ADD-ON Performing Organization Address City/[facility] [address]/ZIP Code Phon e Number [facility] LABORATORIES - [address] [place] [phone] [facility] APTT (Activated Partial Thromboplastin Time) (08/07/2018 4:27 PM CDT) P athologist Signature Activated 25 25 - 37 08/07/2018 [facility] Partial sec 4:44 PM CDT LABORATORIES - [facility] Specimen Anatomical Collection Method Collection Time Receive d Time (Source) Location / / Volume Laterality Blood (Blood, 08/07/2018 4:27 PM 08/08/19 19 4:30 Venous) CDT PM CDT Jeanmarie Dunne M.D. LAB BLOOD ADD-ON Performing Organization Address City/[facility] [address]/ZIP Code Phon e Number [facility] LABORATORIES - [address] [place] [phone] [facility] Phosphorus Inorganic (08/07/2018 4:27 PM CDT) Analysis Performed At Patho logist Time Signature Phosphorus 4.3 2.5 - 4.5 08/07/2018 [facility] (Inorganic), S mg/dL 9:21 PM CDT LABORATORIES - [facility] Specimen Anatomical Collection Method Collection Time Receive d Time (Source) Location / / Volume Laterality Blood (Blood, 08/07/2018 4:27 PM 08/08/19 19 4:47 Venous) CDT PM CDT Jeanmarie Dunne M.D. LAB BLOOD ADD-ON Performing Organization Address City/[facility] [address]/ZIP Code Phon e Number [facility] LABORATORIES - [address] [place] [phone] [facility] Magnesium (08/07/2018 4:27 PM CDT) athologist Signature Magnesium, S 1.7 1.7 - 2.3 08/07/2018 [facility] mg/dL 9:21 PM CDT LABORATORIES [facility] Specimen Anatomical Collection Method Collection Time Receive d Time (Source) Location / / Volume Laterality Blood (Blood, 08/07/2018 4:27 PM 08/08/19 19 4:47 Venous) CDT PM CDT Jeanmarie Dunne M.D. LAB BLOOD ADD-ON Performing Organization Address City/[facility] [address]/ZIP Code Phon e Number [facility] LAB[facility]ATORIES - [address] [place] [phone] [facility] Lactate (08/07/2018 4:27 PM CDT) athologist Signature Lactate, P 1.2 0.5 - 2.2 08/07/2018 [facility] mmol/L 4:45 PM CDT [facility] - [facility] Specimen Anatomical Collection Method Collection Time Receive d Time (Source) Location / / Volume Laterality Blood (Blood, 08/07/2018 4:27 PM 08/08/19 19 4:30 Venous) CDT PM CDT Jeanmarie Dunne M.D. LAB BLOOD NON ADD-ON Performing Organization Address City/State/ZIP Code Phon e Number [facility] LABORATORIES - [address] [place] [address] [facility] Calcium, Ionized (08/07/2018 4:27 PM CDT) athologist [facility] Calcium, 4.73 4.65 - 08/07/2018 [facility] Ionized, B 5.30 mg/dL 4:32 PM CDT [facility] Specimen Anatomical Collection Method Collection Time Receive d Time (Source) Location / / Volume Laterality Blood (Blood, 08/07/2018 4:27 PM 08/08/19 19 4:30 Venous) CDT PM CDT Jeanmarie Dunne M.D. LAB BLOOD NON ADD-ON Performing Organization Address City/State/ZIP Code Phon e Number [facility] LABORATORIES - [address] [place] [address] [facility] (ABNORMAL) CBC without Differential (08/07/2018 4:27 PM CDT) Patholo gist Method Time Signature Hemoglobin 10.9 (L) 11.6 - 08/07/2018 [facility] 15.0 g/dL 4:33 PM CDT LABORATORIES - [facility] Hematocrit 34.5 (L) 35.5 - 08/07/2018 [facility] 44.9 % 4:33 PM CDT LABORATORIES - [facility] Erythrocytes 3.81 (L) 3.92 - 08/07/2018 [facility] 5.13 4:33 PM CDT LABORATORIES - x10(12)/L [facility] MCV 90.6 78.2 - 08/07/2018 [facility] 97.9 fL 4:33 PM CDT LABORATORIES - [facility] RBC Distrib 14.4 12.2 - 08/07/2018 [facility] Width 16.1 % 4:33 PM CDT LABORATORIES - [facility] Platelet Count 212 157 - 371 08/07/2018 [facility] x10(9)/L 4:33 PM CDT LABORATORIES - [facility] Leukocytes 10.8 (H) 3.4 - 9.6 08/07/2018 [facility] x10(9)/L 4:33 PM CDT LABORATORIES - [facility] Specimen Anatomical Collection Method Collection Time Receive d Time (Source) Location / / Volume Laterality Blood (Blood, 08/07/2018 4:27 PM 08/08/19 19 4:30 Venous) CDT PM CDT Jeanmarie Dunne M.D. LAB BLOOD ADD-ON Performing Organization Address City/State/ZIP Code Phon e Number [facility] LABORATORIES - [address] [place], [place] [address] [facility] Glucose, POCT (08/07/2018 3:52 PM CDT) Analysis Performed At Patho logist Time Signature Glucose, POCT, 133 70 - 140 08/07/2018 [facility] B mg/dL 3:55 PM CDT SERVICES Site Capillary 08/07/2018 [facility] 3:55 PM CDT SERVICES Specimen Anatomical Collection Method Collection Time Receive d Time (Source) Location / / Volume Laterality Blood 08/07/2018 3:52 PM 9 3:55 CDT PM CDT Unknown Provider LAB POCT ORDERABLES-MANUAL Performing Organization Address City/[facility]/ZIP Code Phon e Number [facility]OC [facility] [address] [place] [address] Glucose, POCT (08/07/2018 2:44 PM CDT) Analysis Performed At Patho logist Time Signature Glucose, POCT, 139 70 - 140 08/07/2018 [facility] mg/dL 3:11 PM CDT SERVICES Site Capillary 08/07/2018 [facility] 3:11 PM CDT SERVICES Specimen Anatomical Collection Method Collection Time Receive d Time (Source) Location / / Volume Laterality Blood 08/07/2018 2:44 PM 9 3:11 CDT PM CDT Unknown Provider LAB POCT ORDERABLES-MANUAL Performing Organization Address City/[facility] [address]/ZIP Code Phon e Number [facility] [address] [place] [address] Patient Status (08/07/2018 2:35 PM CDT) P athologist Signature O2 Flow 7.0 L/min 08/07/2018 [facility] 2:41 PM CDT LABORATORIES - [facility] Device BPAP 08/07/2018 [facility] 2:41 PM CDT LABORATORIES - [facility] Spont. 24 08/07/2018 [facility] breaths/min 2:41 PM CDT LABORATORIES - [facility] Specimen Anatomical Collection Method Collection Time Receive d Time (Source) Location / / Volume Laterality Blood 08/07/2018 2:35 PM 9 2:41 CDT PM CDT Elder Carr M.D. LAB BLOOD NON ADD-ON Performing Organization Address City/[facility] [address]/ZIP Code Phon e Number [facility] LABORATORIES - [address] [place], [place] [address] [facility] (ABNORMAL) Blood Gas with Coox, Arterial (08/07/2018 2:35 PM CDT) Patholo gist Method Time Signature pO2 70 (L) 83 - 108 08/07/2018 [facility] mm Hg 2:46 PM CDT LABORATORIES - [facility] pCO2 50 (H) 32 - 45 08/07/2018 [facility] mm Hg 2:46 PM CDT LABORATORIES - [facility] pH 7.35 7.35 - 08/07/2018 [facility] 7.45 pH 2:46 PM CDT LABORATORIES - [facility] Base Excess 2 -2 - 3 08/07/2018 [facility] mmol/L 2:46 PM CDT LABORATORIES - [facility] HCO3 27 (H) 22 - 26 08/07/2018 [facility] mmol/L 2:46 PM CDT LABORATORIES - [facility] Hemoglobin, B 11.0 (L) 11.6 - 08/07/2018 [facility] 15.0 g/dL 2:46 PM CDT LABORATORIES - [facility] O2Hb 91.6 (L) 94.0 - 08/07/2018 [facility] 98.0 % 2:46 PM CDT LABORATORIES - [facility] COHb 1.4 <3.0 % 08/07/2018 [facility] 2:46 PM CDT LABORATORIES - [facility] MetHb <1.0 <1.5 % 08/07/2018 [facility] 2:46 PM CDT LABORATORIES - [facility] CtO2 14.2 (L) 18.0 - 08/07/2018 [facility] 21.0 vol 2:46 PM CDT LABORATORIES - % [facility] Arterial Art Line 08/07/2018 [facility] Sample Site 2:46 PM CDT LABORATORIES - [facility] Specimen Anatomical Collection Method Collection Time Receive d Time (Source) Location / / Volume Laterality Blood (Blood, 08/07/2018 2:35 PM 08/08/19 19 2:41 Arterial) CDT PM CDT Elder Carr M.D. LAB BLOOD NON ADD-ON Performing Organization Address City/State/ZIP Code Phon e Number [facility] LABORATORIES - [address] [place], [place] [address] [facility] (ABNORMAL) Glucose, POCT (08/07/2018 12:42 [...] e Number [facility] [address] [place] [address] DX Chest 1 View (08/07/2018 11:32 AM [...] silhouette due to hypoinflation. Fany Lyn M.D. IMSandra DIAGNOSTIC IMAGING PROCE DURES (ABNORMAL) Glucose, Whole Blood - Intra-Op (08/07/2018 10:57 AM CDT) P athologist Signature Glucose 185 (H) 70 - 140 08/07/2018 [facility] mg/dL 11:00 AM CDT LABORATORIES - [facility] Specimen Anatomical Collection Method Collection Time Receive d Time (Source) Location / / Volume Laterality Blood (Blood, 08/07/2018 10:57 08/07/2018 Arterial Line) AM CDT 10:57 AM CDT Resulting Agency Comment Drawn in [place] 502 Ziggy Schulz M.D. LAB BLOOD TROPONIN Performing Organization Address City/State/ZIP Code Phon e Number [facility] LABORATORIES - [address] [place] [phone] [facility] (ABNORMAL) Blood Gas with Coox, Arterial (08/07/2018 10:57 AM CDT) [facility] Method Time Signature pO2 155 (H) 83 - 108 08/07/2018 [facility] mm Hg 11:00 AM CDT LABORATORIES - [facility] pCO2 48 (H) 32 - 45 08/07/2018 [facility] mm Hg 11:00 AM CDT LABORATORIES - [facility] pH 7.37 7.35 - 08/07/2018 [facility] 7.45 pH 11:00 AM CDT LABORATORIES - [facility] Base Excess 2 -2 - 3 08/07/2018 [facility] mmol/L 11:00 AM CDT LABORATORIES - [facility] HCO3 28 (H) 22 - 26 08/07/2018 [facility] mmol/L 11:00 AM CDT [facility] - [facility] Hemoglobin, B 9.8 (L) 11.6 - 08/07/2018 [facility] 15.0 g/dL 11:00 AM CDT LABORATORIES [facility] O2Hb 97.7 94.0 - 08/07/2018 [facility] 98.0 % 11:00 AM CDT [facility] COHb 1.2 <3.0 % 08/07/2018 [facility] 11:00 AM CDT LABORATORIES [facility] MetHb <1.0 <1.5 % 08/07/2018 [facility] 11:00 AM CDT [facility] - [facility] CtO2 13.9 (L) 18.0 - 08/07/2018 [facility] 21.0 vol 11:00 AM CDT LABORATORIES - % [facility] Specimen Anatomical Collection Method Collection Time Receive d Time (Source) Location / / Volume Laterality Blood (Blood, 08/07/2018 10:57 08/07/2018 Arterial Line) AM CDT 10:57 AM CDT Resulting Agency Comment Drawn in [place] 502 Ziggy Schulz M.D. LAB BLOOD NON ADD-ON Performing Organization Address City/State/ZIP Code Phon e Number [facility] LABORATORIES - [address] [place] [address] [facility] Surgical Pathology, Frozen Lab (08/07/2018 10:13 AM CDT) Component Value Ref Test Analysis Performed At [facility] Range Method Time Signature Gross Description A. ??Received fresh labeled left upper lobe wedg e of lung 08/08/2018 [facility] is an 8.3 x 3.8 x 2.9 cm lung wedge resection. ??There is a 3:41 PM LABORATORIES - 1.6 x 1.5 x 0.9 cm solid, martínez mass located approximately [facility] 0.1 cm from the stapled margin. ??The mass does not CAMPUS umbilicate the visceral pleura. ??Garage [employer] Technician tissue submitted for frozen and permanent sections. [...] mass does not umbilicate the visceral pleura. ??Garage Door Technician tissue submitted for frozen and permanent sections. ??Grossed by MAP. Participated in Ammon Valentin, 08/08/2018 [facility] the Jamar-Pathology 3:41 PM LABORATORIES - Interpretation Fellow [facility] Report Josie Sands M.D. [phone] 08/08/2018 [facility] electronically I verify that I have examined all relevant slides/ma terials 3:41 PM LABORATORIES - signed by for the specimen(s) and rendered or confirmed the diagnosi s. [facility] Seen in consultation with: ??Ethel Norwood M.D. [phone] [place] 08/08/2018 [facility] 3:41 PM LABORATORIES - T [facility] Block Summary A Left upper lobe wedge of lung 07/28 [facility] A1 Mass to margin 3:41 PM LABORATORIES - A2 Mass to margin [facility] IN A3 Hemorrhagic area CAMPUS B Station 5 lymph node B1 Station 5 lymph node 1(B1) B2 Station 5 lymph node 2(B2) C Left lower lobe wedge of lung C1 Mass 1 C2 Mass 2 Interpretation FINAL DIAGNOSIS 08/08/2018 [facility] A. 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 ??Visceral pleural invasion is absent. CAMPUS Tumor approaches the stapled surgical margin (< [...] LAB SURG PATH ORDERABLES Performing Organization Address [facility]/ZIP Code Phon e Number [facility] LABORATORIES - [address] [place] [phone] [facility] (ABNORMAL) Glucose, Whole Blood (08/07/2018 9:53 AM CDT) athologist Signature Glucose 150 (H) 70 - 140 08/07/2018 [facility] mg/dL 9:56 AM CDT LABORATORIES [facility] Specimen Anatomical Collection Method Collection Time Receive d Time (Source) Location / / Volume Laterality Blood (Blood, 08/07/2018 9:53 AM 08/08/19 19 9:53 Arterial Line) CDT AM CDT Resulting Agency Comment Drawn in [place] Ziggy Schulz M.D. LAB BLOOD TROPONIN Performing Organization Address City/[facility]/ZIP Code Phon e Number [facility] LABORATORIES - [address] [place] [address] [facility] Potassium, Blood (08/07/2018 9:53 AM CDT) athologist Signature Potassium, B 4.0 3.6 - 5.2 08/07/2018 [facility] mmol/L 9:56 AM CDT [facility] Specimen Anatomical Collection Method Collection Time Receive d Time (Source) Location / / Volume Laterality Blood (Blood, 08/07/2018 9:53 AM 08/08/19 19 9:53 Arterial Line) CDT AM CDT Resulting Agency Comment Drawn in [place] Ziggy Schulz M.D. LAB BLOOD NON ADD-ON Performing Organization Address [facility] Phon e Number [facility] - [address] [place] [phone] [facility] Sodium, B (08/07/2018 9:53 AM CDT) athologist Signature Sodium, B 142 135 - 145 08/07/2018 [facility] mmol/L 9:56 AM CDT [facility] Specimen Anatomical Collection Method Collection Time Receive d Time (Source) Location / / Volume Laterality Blood (Blood, 08/07/2018 9:53 AM 08/08/19 19 9:53 Arterial Line) CDT AM CDT Resulting Agency Comment Drawn in [place] Ziggy Schulz M.D. LAB BLOOD NON ADD-ON Performing Organization Address City/[facility]/ZIP Code Phon e Number [facility] LABORATORIES - [address] [place], [place] [address] [facility] Calcium, Ionized (08/07/2018 9:53 AM CDT) P athologist Signature Calcium, 4.82 4.65 - 08/07/2018 [facility] Ionized, B 5.30 mg/dL 9:56 AM CDT LABORATORIES - [facility] Specimen Anatomical Collection Method Collection Time Receive d Time (Source) Location / / Volume Laterality Blood (Blood, 08/07/2018 9:53 AM 08/08/19 19 9:53 Arterial Line) CDT AM CDT Resulting Agency Comment Drawn in [place] Ziggy Schulz M.D. LAB BLOOD NON ADD-ON Performing Organization Address City/[facility] Code Phon e Number [facility] LABORATORIES - [address] [place], [place] [address] [facility] (ABNORMAL) Blood Gas with Coox, Arterial (08/07/2018 9:53 AM CDT) Patholo gist Method Time Signature pO2 67 (L) 83 - 108 08/07/2018 [facility] mm Hg 9:56 AM CDT LABORATORIES [facility] pCO2 65 (H) 32 - 45 08/07/2018 [facility] mm Hg 9:56 AM CDT LABORATORIES [facility] pH 7.27 (L) 7.35 - 08/07/2018 [facility] 7.45 pH 9:56 AM CDT LABORATORIES [facility] Base Excess 2 -2 - 3 08/07/2018 [facility] mmol/L 9:56 AM CDT LABORATORIES - [facility] HCO3 29 (H) 22 - 26 08/07/2018 [facility] mmol/L 9:56 AM CDT LABORATORIES [facility] Hemoglobin, B 9.9 (L) 11.6 - 08/07/2018 [facility] 15.0 g/dL 9:56 AM CDT LABORATORIES [facility] O2Hb 88.5 (L) 94.0 - 08/07/2018 [facility] 98.0 % 9:56 AM CDT LABORATORIES - [facility] COHb 1.2 <3.0 % 08/07/2018 [facility] 9:56 AM CDT LABORATORIES - [facility] MetHb <1.0 <1.5 % 08/07/2018 [facility] 9:56 AM CDT LABORATORIES - [facility] CtO2 12.4 (L) 18.0 - 08/07/2018 [facility] 21.0 vol 9:56 AM CDT LABORATORIES - % [facility] Specimen Anatomical Collection Method Collection Time Receive d Time (Source) Location / / Volume Laterality Blood (Blood, 08/07/2018 9:53 AM 08/08/19 19 9:53 Arterial Line) CDT AM CDT Resulting Agency Comment Drawn in [place] Ziggy Schulz M.D. LAB BLOOD NON ADD-ON Performing Organization Address City/State/ZIP Code Phon e Number [facility] LABORATORIES - [address] [place], [place] [address] [facility] Glucose, POCT (08/07/2018 6:53 AM [...] Provider LAB POCT ORDERABLES-MANUAL Performing Organization Address City/State/[facility] Code Phon e Number POC [facility] [address] [place] [address] documented in this encounter Visit Diagnoses Not on filedocumented in this encounter Admitting Diagnoses Diagnosis Nodule Pulmonary Mass Lung documented in this encounter Administered Medications Inactive Administered Medications - up to 3 most recent administrations Medication Order MAR Action Action Date Dose Rate Site acetaminophen tablet 1,000 mg Given 08/11/2018 12:07 PM CDT 1,00 0 mg (TYLENOL) 1,000 mg, oral, 4 times daily, First dose on Nereyda 08/07/18 at 2100 Given 08/11/2018 9:24 AM CDT [...] do not give if patient has diarrhea. bupivacaine liposome (PF) 266 mg/20 mL Given 08/07/2018 10:46 AM CDT 5 mL Other (13.3 mg/mL) injection (EXPAREL) As needed, Starting on Sat08/07/18 at 1036, Intra-Op Given 08/07/2018 10:36 AM CDT 15 mL Othe r cellulose, oxidized 2 x 14 pad Given 08/07/2018 11:00 AM CDT 0 .33 each Chest (SURGICEL) As needed, Starting on Sat08/07/18 at 1100, Intra-Op citalopram tablet 20 mg (CeleXA) Given 08/11/2018 [...] 08/09/2018 8:43 AM CDT 50 mg dilTIAZem tablet 45 mg (CARDIZEM) Given 08/11/2018 12:08 PM CDT 45 mg 45 mg, oral, Every 6 hours scheduled, First dose (after last modification) on Sat08/08/18 at 0600 Given 08/11/2018 6:12 AM CDT 45 mg Given 08/10/2018 11:12 PM CDT 45 mg fentaNYL injection 25 mcg (SUBLIMAZE) 25 mcg, intravenous, Every 2 hour PRN, moderate pain o r score 4-6 of 10, severe pain or score 7-10 of 10, for breakthrou gh pain when oral pain medication is not effective within 30 minutes or if unable to take oral medications, Starting on Sat08/07/18 at 1615 fluticasone furoate-vilanterol 100-25 Given 08/11/2018 [...] PM CDT 2 sprays heparin (porcine) Given 08/07/2018 8:04 AM CDT 5,000 Units Right Lower injection 5,000 Units Abdomen 5,000 Units, subcutaneous, Once, On Nereyda 08/07/18 at 0815, For 1 dose, Intra-Op, Administer prior to induction of anesthesia. heparin (porcine) Given 08/11/2018 6:12 AM CDT [...] than 399: Call service writing Insulin orders ipratropium-albuterol 0.5-2.5 mg/3 mL Given 08/10/2018 10:27 PM CDT 3 mL nebulizer solution 3 mL (DUO-NEB) 3 mL, nebulization, 4 times daily PRN, wheezing, shortness of breath, Starting on Sat08/07/18 at 1624 Given 08/10/2018 3:20 PM CDT 3 mL Given 08/09/2018 11:12 AM CDT 3 mL magnesium hydroxide suspension 30 mL (OR LK OF MAGNESIA) 30 mL, oral, Every 12 hours PRN, constip ation, Starting on Sat08/07/18 at 1615, If no bowel movement within 24 hours of sta rting Senna and Docusate, do not give if patient has diarrhea. melatonin tablet 1 mg Given 08/10/2018 10:14 PM CDT 1 mg 1 mg, oral, Daily at bedtime, First dose on Sat08/07/18 at 2100 Given 08/09/2018 9:23 PM CDT 1 mg Given 08/08/2018 11:51 PM CDT 1 mg metoprolol injection 5 mg (LOPRESSOR) 5 [...] 10, Starting on Nereyda 08/07/[address] tablet 40 mg [...] 08/10/2018 08/11/2018 acetaminophen tablet 1,000 mg (TYLENOL) 0825 (Given - Provider: Esvin Savage R.N.)6610 (Given - Provider: Esvin Savage R.N.)3982 (Given - Provider: Esvin S Hussein, R.N.)2123 (Given - Provider: Beatriz Renee R.N.) 0802 (Given - Provider: Esvin Savage R.N.)1217 (Given - Provider: Esvin Savage R.N.)1816 (Given - Provider: Esvin Savage R.N.)2214 (Given - Provider: Fernando Vernon R.N.) 0924 (Given - Provider: Staci gramajo R.N.)1207 (Given - Provider: Beatriz Renee R.N.) 1,000 mg, oral, 4 times daily, First dose on Sat08/07/18 at 2100 ARIPiprazole tablet 10 mg (ABILIFY) 2122 (Given - Prov ider: Beatriz Renee R.N.) 2213 (Given - Provider: Fernando Vernon R.N.) 10 mg, oral, Daily at bedtime, First dose on Sat08/07/18 at 2100 citalopram tablet 20 mg (CeleXA) 0843 (Given - Provider: Alka Savage R.N.) 0803 (Given - Provider: Esvin Savage R.N.) 0925 (Given - Provider: Staci Pantoja R.N.) 20 mg, oral, Daily, First dose on Sat08/08/18 at 0900 cloZAPine tablet 400 mg (CLOZARIL) 2122 (Given - Provi mariangel: Beatriz Renee R.N.) 221 (Given - Provider: Fernando Vernon R.N.) 400 [...] (Given - Provid er: Twyla Del Rio RElviNElvi)1234 (Given - Provider: Esvin Savage R.N.)1750 (Given - Provider: Esvin Savage R.N.) 0101 (Given - Provider: Beatriz Renee R.N.)0614 (Given - Provider: Beatriz Renee R.N.)1216 (Given - Provider: Arnaud Solomon.Iram.)1816 (Given - Provider: Esvin Savage R.N.)2312 (Given - Provider: Fernando Vernon R.N.) 0612 (Given - Provider: Arnaud Diaz.N.)1208 (Given - Provider: Beatriz Renee R.N.) 45 mg, oral, Every 6 hours scheduled, Fi rst dose (after last modification) on Sat08/08/18 at 0600 fluticasone furoate-vilanterol 100-25 mc g/actuation inhaler 1 puff (BREO ELLIPTA DISKUS) 0845 (Given - Provider: Esvin Savage R.N.) 0803 (G iven - Provider: Esvin Savage R.N.) 0929 (Given - Provider: Staci gramajo R.N.) 1 puff, inhalation, Daily (RT), First do se on Sat08/08/18 at 0800, fluticasone/vilanterol diskus 100/25 mcg was interchanged for fluticasone/salmeterol MDI 250/50 mcg fluticasone propionate 50 mcg/actuation nasal spray 2 spray (FLONASE) 2123 (Given - Provider: Beatriz Renee RElviN.) 2216 (Given - Provider: Fernando Vernon R.N.) 0928 (Not Given - Provider: Staci slaughter R.NElvi - Reason: See Provider Order) 2 spray, each nostril, Daily at bedtime, First dose on Sat at 2100 heparin (porcine) injection 5,000 Units 0605 (Given - Provider: Twyla Del Rio RElviN.)1413 (Given - Provider: Esvin Savage R.N.)2123 (Given - Provider: Beatriz Renee R.N.) 0614 (Given - Provider: Beatriz Renee R.N.)1457 (Given - Provider: Esvin Savage R.N.)2213 (Given - Provider: Fernando Vernon R.N.) 0612 (Given - Provider: Fernando Vernon R.N.)1641 (Not Given - Provider: Beatriz Renee R.N. [...] met)1208 (Not Given - Provider: Beatriz Renee RYahir - Reason: Order parameters not met) 0-7 Units, subcutaneous, 3 times daily, First dose on Sat08/07/18 at 1700, Insulin Scale: Mild Correction Scale, 180 - 219: 2 units, 220 - 259: 3 units, 260 - 299: 4 units, 300 - 339: 5 units, 340 - 379 1940 (Not Given - Provider: Beatriz Renee RJamie. - Reason: Order parameters not met) 1820 (Not Given - Provider: Esvin Savage R.N. - Reason: Order parameters not met) : 6 units, 380 - 399: 7 units, Greater t grfifiths 399: Call service writing Insulin orders melatonin tablet 1 mg 2122 (Given - Provider: Beatriz carpenter, R.N.) 2214 (Given - Provider: Fernando Vernon R.NElvi) 1 mg, oral, Daily at bedtime, First dose on Sat08/07/[address] tablet 40 mg (PROTONIX) 0605 (Given - Provider: Twyla Del Rio RElviNElvi) 0614 (Given - Provider: Beatriz Renee R.N.) 0612 ( Given - Provider: Fernando Vernon R.N.) 40 mg, oral, Daily before breakfast, Fir st dose on Sat08/08/18 at 0700, pantoprazole 40 mg oral daily was interchanged for omeprazole 20 or 40 mg oral daily Swallow whole. Do NOT crush, chew, or split tablet. sennosides-docusate sodium 8.6-50 mg per tablet 2 tabl et (SENOKOT-S) 0843 (Given - Provider: Esvin Savage R.N.)2123 (Given - Provider: Beatriz Renee R.N.) 0802 (Given - Provider: Esvin Savage R.N.)2216 (Not Given - Provider: Fernando Vernon R.N. - Reason: Patient/family refused) 0936 (Given - Provider: Staci Pantoja RYahir) 2 tablet, oral, 2 times daily, First dos e on Sat08/07/18 at 2100, Do not give if patient has diarrhea PRN Medication Order 08/09/2018 08/10/2018 08/11/2018 albuterol 90 mcg/actuation inhaler 2 puff (PROVENTIL HFA,VENTOLI N HFA) 2 puff, inhalation, Every 4 hours PRN, w heezing, shortness of breath, Starting Enreyda 08/07/18 at 1623 bisacodyl suppository 10 mg (DULCOLAX) 10 mg, rectal, Every 12 hours PRN, const ipation, Starting on Nereyda 08/07/18 at 1615, If no bowel movement within [...] medications, Starting on Nereyda 08/07/18 at 1615 ipratropium-albuterol 0.5-2.5 mg/3 mL nebulizer soluti on 3 mL (DUO-NEB) 0529 (Given - Provider: Twyla Del Rio R.N.)1112 (Given - Provider: Desmond SolomonN.) 1520 (Given - Provider: Desmond SolomonN.)2227 (Given - Provider: Fernando Vernon RElviNElvi) 3 mL, nebulization, 4 times daily PRN, w heezing, shortness of breath, Starting on Sat08/07/18 at 1624 magnesium hydroxide suspension 30 mL (MILK OF MAGNESIA) 30 mL, oral, Every 12 hours PRN, constip ation, Starting on Nereyda 08/07/18 at 1615, If no bowel movement within 24 hours of starting Senna and Docusate, do not give if patient has diarrhea. metoprolol injection 5 mg (LOPRESSOR) 5 mg, intravenous, Every 5 min PRN, high heart rate, Starting on Sat08/08/18 at 0447, For 3 doses naloxone injection 0.2 mg (NARCAN) 0.2 mg, intravenous, As needed, respirat ory depression, Starting on Nereyda 08/07/18 at 1615, For respiratory rate less than [...] mL, nebulization, As needed, cough, Starting on Sat08/09/18 at 0916 documented in this encounter
--- OUTSIDE RECORDS SUMMARY | 2022-03-01 10:17 | XMS_ITS | Encounter Summary ---
:1955 Author Organization [facility] Address [address] [place] [address] Care Team Providers Name Role Phone Unavailable Primary Care Provider Unavailable Reason for Visit Reason Onset Date Comments Preop 08/06/2018 Encounter Details Date Type Department Care Team Description 08/06/2018 Clinical Communication Division of Thoracic [place] , Preop Surgery in [place] M[place] [address] [facility] [address] [place] [id number] [phone] Social History Tobacco Use Types Packs/Day Years Used Date Smoking Tobacco: Former Cigarettes 1 25 Quit : 2004 Smokeless Tobacco: Never Alcohol Use Standard Drinks/Week Comments No 0 (1 standard drink = 0.6 oz pure alcoho l) Sex Assigned at Date Recorded Not on file documented as of this encounter Miscellaneous Notes Telephone Encounter - Madina Nieves APRN, C.N.PElvi, M.S.N. - 08/06/2018 11:30 AM CDT Spoke to sister, all questions answered. Telephone Encounter - Heidi Stone - 08/06/2018 11:20 AM CDT Scheduled for surgery with Dr. Lyn tomorrow. Patient's sister, Naomi (emergency contact) called to let us know that she is on Ambien, and this was not included in her list of medications. Pleasecall to confirm whether or not there is an issue with her taking this medication prior to surgery. [phone] documented in this encounter Plan of Treatment Not on filedocumented as of this encounter Visit Diagnoses Not on filedocumented in this encounter
--- OUTSIDE RECORDS SUMMARY | 2022-03-01 10:17 | XMS_ITS | Encounter Summary ---
:1955 Author Organization [facility] Address [address] [place] [address] Care Team Providers Name Role Phone Unavailable Primary Care Provider Unavailable Encounter Details Date Type Department Care Team Description 06/30/2018 Ancillary Procedure Department of Pulmonary and CC Medicine Social History Tobacco Use Types Packs/Day Years [...] Name Priority Date/Time Associated Diagnosis Comme nts PULMONARY AND CC Routine 06/30/2018 10:20 AM Resu lts for this MEDICINE IMAGE EXAM TRANSFORMATION ANALYST procedur e are in the results section. documented in this encounter Results BRONCH-Pulmonary And CC Medicine Image Exam (06/30/2018 10:20 AM TRANSFORMATION ANALYST) Specimen (Source) Anatomical Collection Method Collection Time Re ceived Time Location / / Volume Laterality 06/30/2018 10:19 AM TRANSFORMATION ANALYST Narrative [facility]IMS - 06/30/2018 11:56 AM TRANSFORMATION ANALYST This order has been created and auto-finalized [...]
--- OUTSIDE RECORDS SUMMARY | 2022-03-01 10:17 | XMS_ITS | Encounter Summary ---
:1955 Author Organization [facility] Address [address] [place] [address] Care Team Providers Name Role Phone Unavailable Primary Care Provider Unavailable Encounter Details Date Type Department Care Team Description 06/30/2018 Anesthesia Event RST ROMB MAIN OR Erika Padilla APRN, GEORGIE, D.N.P. [address] [place] [address] [address] [facility] Marshall Rock M.D. [address] [place] [phone] [place] [address] Anesthesia Record Procedure Summary Procedure Name Responsible Anesthesia Start Anesthesia Stop Anesthesiologist Time Time Bronchoscopy Flexible: Erika Padilla APRN, 06/30/18 1042 06/30/18 1202 Endobronchial GEORGIE, D.N.P. Ultrasound Guided Transbronchial Needle Aspiration (Bronchus) Events Date Time Event Comment 06/30/2018 0933 1042 In Room 1042 An Start Machine/Equipmen t Checked Infection Precautions Foll owed Procedure/Site Verified NPO Sta tus Verified Supine Standard ASA Mon itors Applied 1045 Turnover to Proceduralist 1054 Proc Start 1146 Proc Fin 1149 Turnover to ANE Staff 1156 an stop data 1156 Out of Room 1202 An End I completed my h andoff to the receiving staff during [facility] we 1. Identified the patient 2. Ident ified the responsible provider 3. Revi ewed the pertinent medical history 4. Discu ssed the surgical course 5. Reviewed intra-o p anesthesia management and issues during an esthesia 6. Set expectations for post-procedure period 7. Allowed opportun ity for questions and acknowledgement of understanding. Name Total fentanyl injection 50 mcg/mL 50 mcg propofol 10 mg/mL infusion 569.33 mg propofol 10 mg/mL injection 55 mg lidocaine 2% (mg) injection 40 mg ondansetron PF 4 mg/2 mL injection 4 mg Lactated Ringers Free Drip 400 mL Agents No agents on file. Blood No blood administrations on file. Lines, Drains, and Airways Type Details Placement Removal Peripheral IV Placement Date: 06/30/18; 06/30/18950 by 06/30 by Placement Time: 950; Kymberly Thurman Brittany E, Catheter Size: 22 G; R.N. Orientation: Right; Location: Antecubital; Site Prep: Chlorhexidine (Preferred); Insertion Attempts: 1; Removal Date: 06/30/18; Removal Time: 1314; Removal Reason: Patient discharged documented in this [...] encounter OR Notes Anesthesia Postprocedure Evaluation - Erika Padilla APRN, GEORGIE, D.N.P. - 06/30/2018 12:07 PM CST Patient: Sarah Reyes Procedure Summary Date: 06/30/18 Room / Location: [place] [address] / [facility] in [place], [place] Anesthesia Start: 1042 Anesthesia Stop: 1202 Procedure: Bronchoscopy Flexible: Endobronchial Ultrasound Guided Transbronchial Needle Aspiration (N/A Bronchus) Diagnosis: Malignant Neoplasm Of Lung Adenocarcinoma Left (HCC) (Malignant Neoplasm Of Lung Adenocarcinoma Left (HCC) [C34.92]) Provider: Keaton Noe M.D. Responsible Provider: Haley Castro APRN, GEORGIE, DNAP Anesthesia Type: MAC ASA Status: 3 Anesthesia Type: MAC Last vitals Vitals Value Taken Time BP 125/76 06/30/2018 12:01 PM Temp 36.6 ??C 06/30/2018 12:00 PM Pulse 109 06/30/2018 12:07 PM Resp 25 06/30/2018 12:07 PM SpO2 96 % 06/30/2018 12:07 PM Vitals shown include unvalidated device data. Anesthesia Post Evaluation Patient Disposition: dismissal Cardiovascular status: hemodynamics (HR & BP) acceptable Respiratory status: patent airway with spontaneous effort Temperature: normothermic Oxygen requirements: room air Level of consciousness: awake Pain score: pain adequately controlled and/or at baseline Post Op nausea/vomiting: none Hydration status: euvolemic ED GOLD PLATER Anesthesia Preprocedure Evaluation - Marshall Rock M.D. - 06/30/2018 5:53 AM CST Anesthesia Pre-Evaluation Pertinent components of the patient's [...] Syndrome Other (+) Apnea Sleep Obstructive (+) Malignant Neoplasm Of Lung Adenocarcinoma Left (HCC) (+) Morbid obesity (CMS/HCC) (HCC) (+) Schizophrenia (HCC) OBJECTIVE PHYSICAL EXAMINATION Airway (HEENT) Mallampati: III TM Distance: >3 FB Neck ROM: Full Mouth Opening: >3 cm Cardiovascular Rhythm: Regular Rate: Normal Cardiovascular Assessment: cardiovascular normal Functional Capacity: >4 METS Pulmonary Pulmonary Assessment: Clear Neurological Neurologic Assessment:??cognitive deficit Dental Dental Assessment: upper dentures and lower dentures General / Constitutional Constitutional Assessment: Generalized obesity ASSESSMENT / PLAN ANESTHESIA PLAN ASA: 3 Anesthesia Plan: MAC Patient seen and allergies reviewed; anesthesia plan and risks discussed directly with patient / legal guardian, or through an correctional case manager; patient evaluated and approved for anesthesia / sedation. Use of blood products discussed with patient who consented to blood products. ED GOLD PLATER documented in this encounter Plan of Treatment Not on filedocumented as of this encounter Visit Diagnoses Not on filedocumented in this encounter Administered Medications Inactive Administered Medications - up to 3 most recent administrations Medication Order MAR Action Action Date Dose Rate Site fentaNYL injection (SUBLIMAZE) Given 06/30/2018 11:29 AM ROLLED GOLD PLATER 12.5 mcg intravenous, As needed, severe pain or score 7-10 of 10, Starting on Sat06/30/18 at 1050, Anesthesia Intra-op Given 06/30/2018 11:25 AM ROLLED GOLD PLATER 12.5 mcg Given 06/30/2018 11:11 AM ROLLED GOLD PLATER 12.5 mcg lactated ringers New Bag 06/30/2018 10:42 AM ROLLED GOLD PLATER intravenous, Continuous Infusion: Per Instructions PRN, Starting on Sat06/30/18 at 1042, Anesthesia Intra-op lidocaine (PF) (cardiac) injection Given 06/30/2018 10:50 AM ROLLED GOLD PLATER 40 mg intravenous, As needed, Starting on Sat06/30/18 at 1050, Anesthesia Intra-op ondansetron (PF) injection (ZOFRAN) Given 06/30/2018 11:41 AM ROLLED GOLD PLATER 4 mg intravenous, As needed, nausea, vomiting, Starting on Sat06/30/18 at 1141, Anesthesia Intra-op propofol 10 mg/mL infusion Rate/Dose 06/30/2018 85 mcg/kg/min 50.5 m L/hr (DIPRIVAN) Change 11:43 AM ROLLED GOLD PLATER intravenous, Continuous Infusion: Per Instructions PRN, Starting on Sat06/30/18 at 1051, Anesthesia Intra-op Rate/Dose Change 06/30/2018 11:32 AM ROLLED GOLD PLATER 120 mcg/kg/min 71.4 mL/hr Rate/Dose Change 06/30/2018 11:25 AM ROLLED GOLD PLATER 110 mcg/kg/min 65.4 mL/hr propofol injection (DIPRIVAN) Given 06/30/2018 10:57 AM ROLLED GOLD PLATER 20 mg intravenous, As needed, Starting on Sat06/30/18 at 1053, Anesthesia Intra-op Given 06/30/2018 10:53 AM ROLLED GOLD PLATER 15 mg Given 06/30/2018 10:50 AM ROLLED GOLD PLATER 20 mg documented in this encounter
--- OUTSIDE RECORDS SUMMARY | 2022-03-01 10:18 | XMS_ITS | Encounter Summary ---
:1955 Author Organization [facility] Address [address] [place] [address] Care Team Providers Name Role Phone Unavailable Primary Care Provider Unavailable Encounter Details Date Type Department Care Team Description 06/16/2018 Orders Only Department of Oncology in Laquita Silverio M.D. [facility] [address] [place] [address] [id number] (Wo rk) Social History Tobacco Use Types [...]
--- OUTSIDE RECORDS SUMMARY | 2022-03-01 10:18 | XMS_ITS | Encounter Summary ---
:1955 Author Organization [facility] Address [address] [place] [address] Care Team Providers Name Role Phone Unavailable Primary Care Provider Unavailable Reason for Referral Outpatient (Routine) - Closed Specialty Diagnoses / Procedures Referred By Contact Refer red To Contact Diagnoses Malignant Neoplasm Of Lung Adenocarcinoma Left (HCC) Laquita Silverio M.D. [facility] Procedures ECG 12 Lead CO EKG 12 LEAD TRACE ONLY CO EKG I&R ONLY [address] [place] [phone] Referral ID Status Reason Start Date Expiration Date Visits Requ ested Visits Authorized [id number] Closed 05/07/2018 05/07/2019 1 1 utpatient (Routine) - Closed Specialty Diagnoses / Procedures Referred By Contact Refer red To Contact Thoracic Surgery Diagnoses Malignant Neoplasm Of Lung Adenocarcinoma Left (HCC) Laquita Silverio M.D. [facility] [address] [place] [phone] Referral ID Status Reason Start Date Expiration Date Visits Requ ested Visits Authorized [id number] Closed 05/07/2018 05/07/2019 1 1 UI SOFTWARE ENGINEER Encounter Details Date Type Department Care Team Description 05/07/2018 Orders Only Department of Laquita Silverio [facility] [place], [place] [address] [facility] (HCC) (Primary Dx) [address] [place], [place] [address], [place] [phone] Social History Tobacco Use Types Packs/Day Years Used Date Smoking Tobacco: Never Assessed Sex Assigned at Date Recorded Not on file documented as of this encounter Plan of Treatment Scheduled Referrals Name Type Priority Associated Diagnoses Order [facility] Thoracic Surgery Outpatient Referral Routine Malignant Neoplas m Of Expected: - General consult Lung Adenocarcinoma 12/2018 (clinic) Left (HCC) (Approximate), Expires: 05/07/2021 documented as of this encounter Results (ABNORMAL) Pulmonary Function Tests (05/27/2018 1:13 PM WEB UI SOFTWARE ENGINEER) Analysis Performed At [place] [facility] [employer] Time Signature F1TygHkrd 97.00 % 05/28/2018 [place] [facility] 10:28 AM WEB UI SOFTWARE ENGINEER SUITE PulseRest 85.00 1/min 05/28/2018 [place] [facility] 10:28 AM WEB UI SOFTWARE ENGINEER SUITE DLCO SINGLE 17.03 14.57 - 05/28/2018 [facility] 27.57 10:28 AM WEB UI SOFTWARE ENGINEER SUITE ml/(min*mm Hg) VA SINGLE 3.78 (L) 3.89 - 05/28/2018 [facility] 5.66 L 10:28 AM WEB UI SOFTWARE ENGINEER SUITE VC MAX POST 2.33 2.27 - 05/28/2018 [place] [facility] 3.82 L 10:28 AM WEB UI SOFTWARE ENGINEER SUITE PostFEV1 1.75 (L) 1.78 - 05/28/2018 [place] [facility] 2.95 L 10:28 AM WEB UI SOFTWARE ENGINEER SUITE FEV1/FVC POST 75.15 66.65 - 05/28/2018 [place] [facility] 89.63 % 10:28 AM WEB UI SOFTWARE ENGINEER SUITE PostFVC 2.32 2.27 - 05/28/2018 [place] [facility] 3.82 L 10:28 AM WEB UI SOFTWARE ENGINEER SUITE FET POST 7.81 sec 05/28/2018 [place] [facility] 10:28 AM WEB UI SOFTWARE ENGINEER SUITE PEF POST 4.56 2.95 - 05/28/2018 [facility] 8.25 L/s 10:28 AM WEB UI SOFTWARE ENGINEER SUITE FEF 25-75 % 1.35 1.05 - 05/28/2018 [place] [facility] POST 3.58 L/s 10:28 AM WEB UI SOFTWARE ENGINEER SUITE VC MAX PRE 2.27 (L) 2.27 - 05/28/2018 [place] [facility] 3.82 L 10:28 AM WEB UI SOFTWARE ENGINEER SUITE FEV1 1.65 (L) 1.78 - 05/28/2018 [place] [facility] 2.95 L 10:28 AM WEB UI SOFTWARE ENGINEER SUITE FEV1/FVC 72.76 66.65 - 05/28/2018 [place] [facility] 89.63 % 10:28 AM WEB UI SOFTWARE ENGINEER SUITE MVV 52.34 (L) 60.47 - 05/28/2018 [place] [facility] 126.47 10:28 AM WEB UI SOFTWARE ENGINEER SUITE L/min FVC 2.27 (L) 2.27 - 05/28/2018 [place] [facility] 3.82 L 10:28 AM WEB UI SOFTWARE ENGINEER SUITE FET PRE 7.90 sec 05/28/2018 [facility] 10:28 AM WEB UI SOFTWARE ENGINEER SUITE PEF PRE 4.78 2.95 - 05/28/2018 [facility] 8.25 L/s 10:28 AM WEB UI SOFTWARE ENGINEER SUITE CMZ36-54% 1.12 1.05 - 05/28/2018 [facility] 3.58 L/s 10:28 AM WEB UI SOFTWARE ENGINEER SUITE FRCPLETH 2.30 1.86 - 05/28/2018 [facility] PROVBASE 3.50 L 10:28 AM WEB UI SOFTWARE ENGINEER SUITE RV 2.10 1.36 - 05/28/2018 [facility] 2.51 L 10:28 AM WEB UI SOFTWARE ENGINEER SUITE TLC 4.34 3.88 - 05/28/2018 [place] [facility] 5.86 L 10:28 AM WEB UI SOFTWARE ENGINEER SUITE RV % TLC PRE 48.43 30.79 - 05/28/2018 [place] [facility] 49.97 % 10:28 AM WEB UI SOFTWARE ENGINEER SUITE VC PRE 2.24 (L) 2.27 - 05/28/2018 [place] [facility] 3.82 L 10:28 AM WEB UI SOFTWARE ENGINEER SUITE SR MID PRE 9.19 (H) 1.43 - 05/28/2018 [place] [facility] 7.87 10:28 AM WEB UI SOFTWARE ENGINEER SUITE cmH2O*s SUBSTANCE POST NaN 05/28/2018 [facility] 10:28 AM WEB UI SOFTWARE ENGINEER SUITE DOSE POST NaN 05/28/2018 [facility] 10:28 AM WEB UI SOFTWARE ENGINEER SUITE % PRED VC MAX 2.27 (L) 2.27 - 05/28/2018 [place] [facility] 3.82 % 10:28 AM WEB UI SOFTWARE ENGINEER SUITE FEV1% 1.65 (L) 1.78 - 05/28/2018 [place] [facility] 2.95 % 10:28 AM WEB UI SOFTWARE ENGINEER SUITE % PRED 72.76 66.65 - 05/28/2018 [facility] FEV1/FVC 89.63 % 10:28 AM WEB UI SOFTWARE ENGINEER SUITE FVC% 2.27 (L) 2.27 - 05/28/2018 [place] [facility] 3.82 % 10:28 AM WEB UI SOFTWARE ENGINEER SUITE % PRED PEF 4.78 2.95 - 05/28/2018 [facility] 8.25 % 10:28 AM WEB UI SOFTWARE ENGINEER SUITE % PRED FEF 1.12 1.05 - 05/28/2018 [place] [facility] 25-75% 3.58 % 10:28 AM WEB UI SOFTWARE ENGINEER SUITE PRED VC MAX NaN 2.27 - 05/28/2018 [place] [facility] 3.82 L 10:28 AM WEB UI SOFTWARE ENGINEER SUITE PRED FEV 1 NaN 1.78 - 05/28/2018 [place] [facility] 2.95 L 10:28 AM WEB UI SOFTWARE ENGINEER SUITE PRED FEV1/FVC NaN 66.65 - 05/28/2018 [place] [facility] 89.63 % 10:28 AM WEB UI SOFTWARE ENGINEER SUITE PRED FVC NaN 2.27 - 05/28/2018 [place] [facility] 3.82 L 10:28 AM WEB UI SOFTWARE ENGINEER SUITE PRED PEF NaN 2.95 - 05/28/2018 [place] [facility] 8.25 L/s 10:28 AM WEB UI SOFTWARE ENGINEER SUITE PRED FEF NaN 1.05 - 05/28/2018 [place] [facility] 25-75% 3.58 L/s 10:28 AM WEB UI SOFTWARE ENGINEER SUITE Specimen (Source) Anatomical Collection Method Collection Time Re ceived Time Location / / Volume Laterality 05/27/2018 1:13 PM WEB UI SOFTWARE ENGINEER Narrative This result has an attachment that is no t available. Laquita Silverio M.D. PFT ORDERABLES Performing Organization Address City/State/ZIP Code Phon e Number [facility] NA ECG 12 Lead (05/27/2018 12:37 PM WEB UI SOFTWARE ENGINEER) P athologist Signature Ventricular Rate 83 BPM MUSE ECG/Min CO Interval 134 ms MUSE QRSD Interval 92 ms MUSE QT Interval 382 ms MUSE QTC Interval 448 ms MUSE P Logan 46 degrees MUSE R Logan -2 degrees MUSE T Wave Logan 31 degrees MUSE Specimen Anatomical Collection Method Collection Time Receive d Time (Source) Location / / Volume Laterality 05/27/2018 12:37 05/27/2018 PM WEB UI SOFTWARE ENGINEER 12:52 PM WEB UI SOFTWARE ENGINEER Impressions MUSE - 05/27/2018 1:03 PM WEB UI SOFTWARE ENGINEER Normal sinus rhythm Minimal voltage criteria for LVH, may be normal variant No previous ECGs available Leg wire(s) moved to hip(s) Patient in sitting position Narrative This result has an attachment that is no t available. Procedure Note Babatunde Gurrola M.B.BElviS. - 019 IMPRESSION: Normal sinus rhythm Minimal voltage criteria for LVH, may be normal variant No previous ECGs available Leg wire(s) moved to hip(s) Patient in sitting position Laquita Silverio M.D. ECG ORDERABLES Performing Organization Address City/State/ZIP Code Phon e Number MUSE MUSE NA CT Chest with IV Contrast (05/27/2018 12:10 PM WEB UI SOFTWARE ENGINEER) Anatomical Region Laterality Modality Chest, Thoracic RST LOS, Thoracic ARZ LOS, Thoracic N/A Computed Tomography ARZ LOS, Thoracic FLA LOS Specimen (Source) Anatomical Collection Method Collection Time Re ceived Time Location / / Volume Laterality 05/27/2018 12:14 PM WEB UI SOFTWARE ENGINEER Impressions 05/27/2018 12:22 PM WEB UI SOFTWARE ENGINEER IMPRESSION: 1. Spiculated nodule in the left upper l obe highly suspicious for bronchogenic carcinoma. 2. Indeterminate nodule in the left lowe r lobe could be metastasis, granuloma or 2nd primary tumor. 3. Mildly suspicious nodes in the left h ilum and AP window. Right-sided mediastinal hilar nodes are likely react armida 4. Small airways inflammation with a jose y shallow inspiration. This limits evaluation of the lung parenchyma. Narrative 05/27/2018 12:22 PM WEB UI SOFTWARE ENGINEER EXAM: CT CHEST WITH IV CONTRAST No 3D post-processing performed. COMPARISON: None. FINDINGS: Very shallow inspiration with considerable atelectasis throughout both lungs which could obscure tiny nodules a nd limits evaluation for subtle parenchymal disease. 1.4 x 1.1 cm solid spiculated nodule wit h focal bronchiectasis centrally in the left upper lobe laterally (5/65). Nodule abuts the pleural surface without evidence of chest wall invasion. Indeter minate 1.0 cm solid nodule in the left lower lobe (165). Enlarged, 1.2 cm short axis lymph node in the lower left hilum (105). Mildly prominent but subcentimete r AP window nodes (75). Mildly prominent subcarinal (119) and right hilar (129) n odes . Enlarged central pulmonary arteries cons istent with pulmonary arterial hypertension. Diffuse moderate bronchial wall thickening and air trapping consistent with small airways inflammati on. Calcified granuloma left lower lobe. Ossified mitral annulus. Small esophagea l hiatal hernia. Negative adrenal glands. Procedure Note Darrion Mccullough M.D. - 05/27/2018Forma tting of this note might be different from the original. EXAM: CT CHEST WITH IV CONTRAST No 3D post-processing performed. COMPARISON: None. FINDINGS: Very shallow inspiration with considerable atelectasis throughout both lungs which could obscure tiny nodules a nd limits evaluation for subtle parenchymal disease. 1.4 x 1.1 cm solid spiculated nodule wit h focal bronchiectasis centrally in the left upper lobe laterally (5/65). Nodule abuts the pleural surface without evidence of chest wall invasion. Indeter minate 1.0 cm solid nodule in the left lower lobe (165). Enlarged, 1.2 cm short axis lymph node in the lower left hilum (105). Mildly prominent but subcentimete r AP window nodes (75). Mildly prominent subcarinal (119) and right hilar (129) n odes . Enlarged central pulmonary arteries cons istent with pulmonary arterial hypertension. Diffuse moderate bronchial wall thickening and air trapping consistent with small airways inflammati on. Calcified granuloma left lower lobe. Ossified mitral annulus. Small esophagea l hiatal hernia. Negative adrenal glands. IMPRESSION: 1. Spiculated nodule in the left upper l obe highly suspicious for bronchogenic carcinoma. 2. Indeterminate nodule in the left lowe r lobe could be metastasis, granuloma or 2nd primary tumor. 3. Mildly suspicious nodes in the left h ilum and AP window. Right-sided mediastinal hilar nodes are likely react armida 4. Small airways inflammation with a jose y shallow inspiration. This limits evaluation of the lung parenchyma. Laquita Silverio M.D. IMG CT PROCEDURES documented in this encounter Visit Diagnoses Diagnosis 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) - Primary 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) documented in this encounter
--- OUTSIDE RECORDS SUMMARY | 2022-03-01 10:18 | XMS_ITS | Encounter Summary ---
:1955 Author Organization [facility] Address [address] [place] [address] Care Team Providers Name Role Phone Unavailable Primary Care Provider Unavailable Encounter Details Date Type Department Care Team Description 06/13/2018 Hospital Encounter Department of Francesco Vang Neoplasm Radiology, Torres Yeager III, P.A.- CElvi Of Lung ([facility]) [facility], in [address] [place] [phone] [place] [address] [place], [place] (Work[place] [phone] Social History Tobacco Use Types Packs/Day Years [...] EVERY MORNING (8AM) (CALL PHARMACY TO REFILL) zolpidem (AMBIEN) 5 mg 1 05/06/2018 tablet zolpidem (AMBIEN) 5 mg Take 5 mg by mouth. 0 03/3006/30/2018 tablet documented as of this encounter Plan of Treatment Not on filedocumented as of this encounter Procedures Procedure Name Priority Date/Time Associated Comments Diagnosis PET CT SKULL TO RAD - Routine 06/13/2018 12:40 Malignant Results for this THIGH (most inpatients PM MANAGER ENGLISH Neoplasm Of Lung procedu re are in and all (HCC) the results outpatients) section. documented in this encounter Results PET CT Skull to Thigh FDG (06/13/2018 12:40 PM MANAGER ENGLISH) Anatomical Region Laterality Modality Body, Nuclear Medicine PET RST LOS, PET N/A Positron Emission Tomography (PET) ARZ LOS, Nuclear Medicine PET FLA LOS Specimen (Source) Anatomical Collection Method Collection Time Re ceived Time Location / / Volume Laterality 06/13/2018 12:44 PM MANAGER ENGLISH Impressions 06/13/2018 1:29 PM MANAGER ENGLISH IMPRESSION: ?? 1. Stable non-FDG avid biopsy-proven willian nocarcinoma in the left upper lobe. 2. Stable non-FDG avid small pulmonary n odule in the left lower lobe is worrisome for a synchronous malignancy. 3. No FDG avid metastatic disease howeve r FDG PET may be suboptimal for evaluation considering the the FDG non a vidity of the biopsy-proven primary. 4. ??Stable indeterminant thickening of the anterior bladder wall may be due to sequelae of previous cystitis however ur othelial malignancy could have this appearance. If warranted a CT urogram co uld be performed for further delineation. Narrative 06/13/2018 1:29 PM MANAGER ENGLISH EXAM: ??PET CT SKULL TO THIGH FDG Finger stick glucose level at the time o f the PET scan injection was 89 mg/dL. RADIOPHARMACEUTICAL/MEDS: Route: intravenous fludeoxyglucose F 18 injection HALFWAY (FDG F-18),15.03 millicurie TECHNIQUE: ??F-18 FDG PET/CT scan was pe rformed from the orbits through the thighs with CT fusion imaging for attenu ation correction and anatomic coregistration only, with imaging beginn ing at approximately 60 minutes after radiotracer injection. COMPARISON: ??Outside PET/CT from 018. Chest CT from 05/27/2018. INDICATION: ??Staging recently diagnosed adenocarcinoma of the left upper lobe. Subsequent treatment strategy. FINDINGS: ??Stable non-FDG avid 1.0 x 1. 1 cm irregular nodule in the lateral left upper lobe corresponds with biopsy-prove n mucinous adenocarcinoma. Stable non-FDG avid 0.7 x 0.9 cm nodule in the left lung base is worrisome for a synchronous adenocarcinoma (image 100). Again seen are non-FDG avid prominent/mi ldly enlarged hilar and mediastinal lymph nodes. No FDG avid metastatic disease however c onsidering the FDG non avidity of the biopsy-proven neoplasm FDG PET may be silverman boptimal for metastatic evaluation. Resolved FDG avid patchy opacities in th e right perihilar lung which should have been infectious/inflammatory. Significant incidental findings on the l ow-dose unenhanced CT fusion images: Hypoplastic left sub mandibular gland. M ild scarring/atelectasis in the mid and lower lungs. Calcified pulmonary granulo ma. Similar indeterminant asymmetric thickening of the anterior bladder wall (image 207). Unable to determine if there is FDG uptake in the bladder wall due to the normal excreted FDG within the bladder. Procedure Note Ryan Raymond M.D. - 06/13/2018For matting of this note might be different from the original. EXAM: PET CT SKULL TO THIGH FDG Finger stick glucose level at the time o f the PET scan injection was 89 mg/dL. RADIOPHARMACEUTICAL/MEDS: Route: intravenous fludeoxyglucose F 18 injection HALFWAY (FDG F-18),15.03 millicurie TECHNIQUE: F-18 FDG PET/CT scan was perf ormed from the orbits through the thighs with CT fusion imaging for attenu ation correction and anatomic coregistration only, with imaging beginn ing at approximately 60 minutes after radiotracer injection. COMPARISON: Outside PET/CT from 8. Chest CT from 05/27/2018. INDICATION: Staging recently diagnosed a denocarcinoma of the left upper lobe. Subsequent treatment strategy. FINDINGS: Stable non-FDG avid 1.0 x 1.1 cm irregular nodule in the lateral left upper lobe corresponds with biopsy-prove n mucinous adenocarcinoma. Stable non-FDG avid 0.7 x 0.9 cm nodule in the left lung base is worrisome for a synchronous adenocarcinoma (image 100). Again seen are non-FDG avid prominent/mi ldly enlarged hilar and mediastinal lymph nodes. No FDG avid metastatic disease however c onsidering the FDG non avidity of the biopsy-proven neoplasm FDG PET may be silverman boptimal for metastatic evaluation. Resolved FDG avid patchy opacities in th e right perihilar lung which should have been infectious/inflammatory. Significant incidental findings on the l ow-dose unenhanced CT fusion images: Hypoplastic left sub mandibular gland. M ild scarring/atelectasis in the mid and lower lungs. Calcified pulmonary granulo ma. Similar indeterminant asymmetric thickening of the anterior bladder wall (image 207). Unable to determine if there is FDG uptake in the bladder wall due to the normal excreted FDG within the bladder. IMPRESSION: 1. Stable non-FDG avid biopsy-proven willian nocarcinoma in the left upper lobe. 2. Stable non-FDG avid small pulmonary n odule in the left lower lobe is worrisome for a synchronous malignancy. 3. No FDG avid metastatic disease howeve r FDG PET may be suboptimal for evaluation considering the the FDG non a vidity of the biopsy-proven primary. 4. Stable indeterminant thickening of th e anterior bladder wall may be due to sequelae of previous cystitis however ur othelial malignancy could have this appearance. If warranted a CT urogram co uld be performed for further delineation. Francesco Vang III PElviAClaudia. IMG NM PROCEDURES documented in this encounter Visit Diagnoses Diagnosis Malignant Neoplasm Of Unspecified Part O f Lung Laterality Unknown (HCC) documented in this encounter Administered Medications Inactive Administered Medications - up to 3 most recent administrations Medication Order MAR Action Action Date Dose Rate Site fludeoxyglucose F 18 Given 06/13/2018 10:48 15.03 millicuries injection HALFWAY (FDG F-18) AM MANAGER ENGLISH 15.03 millicurie, intravenous, Once, On Sat06/13/18 at 1100, For 1 dose documented in this encounter
--- OUTSIDE RECORDS SUMMARY | 2022-03-01 10:18 | XMS_ITS | Encounter Summary ---
:1955 Author Organization [facility] Address [address] [place] [address] Care Team Providers Name Role Phone Unavailable Primary Care Provider Unavailable Reason for Visit MRI/CAT/PET Scan (Routine) - Canceled Specialty Diagnoses / Procedures Referred By Contact Refer red To Contact Radiology Diagnoses Malignant Neoplasm Of Lung Adenocarcinoma Left (HCC) Laquita Silverio M.D. [facility] Procedures CT Chest without IV Contrast DC CT THORAX WO CNTRST HC CT THORAX WO CNTRST DC CT THORAX WO CNTRST [address] [place] [address] Referral ID Status Reason Start Date Expiration Date Visits V isits Requested Authorized [id number] Canceled 05/07/2018 05/07/2019 1 1 Encounter Details Date Type Department Care Team Description 05/27/2018 Hospital Encounter Department of Laquita Silverio Neoplasm Of Radiology, Brian Brown M.D. Lung Adenocarcinoma [facility], in [address] [place] [address] Left (HCC) [facility] [phone] [address] [facility] [phone] [place], [place] (Work) [phone] Social History Tobacco Use Types Packs/Day Years Used Date Smoking Tobacco: Never Assessed Sex Assigned at Date Recorded Not on file documented as of this encounter Last Filed Vital Signs Vital Sign Reading Time Taken Comments Blood Pressure - - Pulse - - Temperature - - Respiratory Rate - - Oxygen Saturation - - Inhaled Oxygen Concentration - - Weight - - Height 165.1 cm (5' 5) 05/27/2018 11:32 AM MALT HOUSE LOADER Body Mass Index - - documented in [...] Name Priority Date/Time Associated Diagnosis Comme nts CT CHEST WITH IV RAD - Routine 05/27/2018 12:10 Malignant Neoplasm Of Results for CONTRAST (most inpatients PM MALT HOUSE LOADER Lung Adenocarcinoma this procedure and all Left (HCC) are in the outpatients) results section. CREATININE, Routine 05/27/2018 11:43 Results for POCT, B AM MALT HOUSE LOADER this procedure are in the results section. CREATININE, Routine 05/27/2018 11:43 Results for POCT, B AM MALT HOUSE LOADER this procedure are in the results section. documented in this encounter Results CT Chest with IV Contrast (05/27/2018 12:10 PM MALT HOUSE LOADER) Anatomical Region Laterality Modality Chest, Thoracic RST LOS, Thoracic ARZ LOS, Thoracic N/A Computed Tomography ARZ LOS, Thoracic FLA LOS Specimen (Source) Anatomical Collection Method Collection Time Re ceived Time Location / / Volume Laterality 05/27/2018 12:14 PM MALT HOUSE LOADER Impressions 05/27/2018 12:22 PM MALT HOUSE LOADER IMPRESSION: 1. Spiculated nodule in the left [...] the lung parenchyma. Narrative 05/27/2018 12:22 PM MALT HOUSE LOADER EXAM: CT CHEST WITH IV CONTRAST No [...] limits evaluation of the lung parenchyma. Laquita DENISEG CT PROCEDURES Creatinine, POCT (05/27/2018 11:43 AM MALT HOUSE LOADER) P athologist Signature Creatinine, 0.6 0.6 - 1.0 05/27/2018 POC [place] POCT, B mg/dL 11:47 AM MALT HOUSE LOADER PERFORMING LABS Comment: ----ADDITIONAL INFORMATION---- Performed at the Point of Care Specimen Anatomical Collection Method Collection Time Receive d Time (Source) Location / / Volume Laterality Blood 05/27/2018 11:43 05/27/2018 AM MALT HOUSE LOADER 11:47 AM MALT HOUSE LOADER Unknown Provider LAB POCT ORDERABLES - DEVICE Performing Organization Address [facility] Phon e Number [facility] PERFORMING LABS [address] [place] [address] Creatinine, POCT (05/27/2018 11:43 AM MALT HOUSE LOADER) P athologist Signature eGFR-Black/Afr >90 >=60 05/27/2018 POC RST ican [place], mL/min/BSA 11:47 AM MALT HOUSE LOADER C[place]OL[facility] POCT OUTPATIENT LABS Comment: ----ADDITIONAL INFORMATION---- Estimated GFR calculated using the 2009 CKD_EPI creatinine equation. eGFR Non-Black/ >90 >=60 mL/min/BSA 05/27/2018 11:47 POC RST CATHOLIC [place], POCT AM MALT HOUSE LOADER OUTPATIENT LABS Comment: ----ADDITIONAL INFORMATION---- Estimated GFR calculated using the 2009 CKD_EPI creatinine equation. Specimen Anatomical Collection Method Collection Time Receive d Time (Source) Location / / Volume Laterality Blood 05/27/2018 11:43 05/27/2018 AM MALT HOUSE LOADER 11:47 AM MALT HOUSE LOADER Unknown Provider LAB POCT ORDERABLES - DEVICE Performing Organization Address [facility] Phon e Number POC RST CATHOLIC OUTPATIENT [address] [place], [place] [address] LABS documented in this encounter Visit Diagnoses Diagnosis 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) documented in this encounter Administered Medications Inactive Administered Medications - up to 3 most recent administrations Medication Order MAR Action Action Date Dose Rate Site iohexol 300 mg iodine/mL solution Given 05/27/2018 11:59 AM MALT HOUSE LOADER 80 mL 1-200 mL (OMNIPAQUE) 1-200 mL, intravenous, Once in imaging, contrast, Starting on Sat05/27/18 at 1119, For 1 dose, Imaging Protocol Orders, Dose per Radiant Medication Guidelines sodium chloride 0.9 % injection 2.5 mL Given 05/27/2018 12:00 PM MALT HOUSE LOADER 2.5 mL 2.5 mL, intravenous, Once, On Sat05/27/18 at 1130, For 1 dose documented in this encounter
--- OUTSIDE RECORDS SUMMARY | 2022-03-01 10:18 | XMS_ITS | Encounter Summary ---
:1955 Author Organization [facility] Address [address] [place] [address] Care Team Providers Name Role Phone Unavailable Primary Care Provider Unavailable Encounter Details Date Type Department Care Team Description 06/30/2018 Hospital Encounter RST ROMB MAIN OR M[place]un[place]aton Malignant Neoplasm Of [address] [facility] Jamar Alba Lung Adenocarcinoma [place], [place] [address] [facility] Left ([facility]) [address] [place], [place] [phone] Social History Tobacco Use Types Packs/Day Years Used Date Smoking Tobacco: Former Cigarettes 1 Quit : 2004 Smokeless Tobacco: Never Alcohol Use Standard Drinks/Week Comments No 0 (1 standard drink = 0.6 oz pure alcoho l) Sex Assigned at Date Recorded Not on file documented as of this encounter Last Filed Vital Signs Vital Sign Reading Time Taken Comments Blood Pressure 140/86 06/30/2018 12:30 PM MAINTENANCE TEAM LEADER Pulse 103 06/30/2018 1:15 PM MAINTENANCE TEAM LEADER Temperature 36.8 ??C (98.2 ??F) 06/30/2018 12:30 PM MAINTENANCE TEAM LEADER Respiratory Rate 26 06/30/2018 12:45 PM MAINTENANCE TEAM LEADER Oxygen Saturation 95% 06/30/2018 1:15 PM MAINTENANCE TEAM LEADER Inhaled Oxygen Concentration - - Weight 99.1 kg (218 lb 7.6 oz) 06/30/2018 9:02 AM MAINTENANCE TEAM LEADER Height 160.8 cm (5' 3.31) 06/30/2018 9:02 AM MAINTENANCE TEAM LEADER Body Mass Index 38.33 06/30/2018 9:02 AM MAINTENANCE TEAM LEADER documented in this encounter Medications at Time [...] changes to the H&P. Sukhdeep Meza M.D. TENANCE TEAM LEADER Source Note - Dung Longoria M.D. - 06/25/2018 11:30 AM MAINTENANCE TEAM LEADER SUBJECTIVE REASON FOR CONSULT Please do bronchoscopy. HISTORY OF PRESENT ILLNESS This is a 63-year-old former smoker who comes to us from [place], [place], which is near [place]. She has a background history of asthma, [...] BMI = 38. SOCIAL HISTORY Approximately a 98-llru-bmfw history of smoking, quit 14 years ago. [...] to do this in the OR at [facility]. I let her know that I will [...] We talked about the relative risks/benefits/alternatives. Thanks! TENANCE TEAM LEADER documented in this encounter OR Notes Op [...] CYTOLOGY FINE NEEDLE ASPIRATION (INCLUDES CORE BIOPSIES Kaeton Noe M.D. 06/30/2018 1138 Drains * No drains in log * Estimated Blood Loss 1 mL Implants * No implants in log * Keaton Noe M.D. TENANCE TEAM LEADER Brief Op Note - Ryan Meza M.D. [...] implants in log * Sukhdeep Meza M.D. TENANCE TEAM LEADER documented in this encounter Plan of Treatment Not on filedocumented as of this encounter Procedures Procedure Name Priority Date/Time Associated Diagnosis Comme nts CYTOLOGY FINE NEEDLE Routine 06/30/2018 11:05 Malignant Neopla sm Of Results for this ASPIRATION (INCLUDES AM MAINTENANCE TEAM LEADER Lung Adenocarcinoma procedure are in CORE BIOPSIES Left (HCC) the results section. BRONCHOSCOPY FLEXIBLE: 06/30/2018 10:12 Malignant Neop lasm Of ENDOBRONCHIAL AM MAINTENANCE TEAM LEADER Lung Adenocarcinoma ULTRASOUND GUIDED Left (HCC) TRANSBRONCHIAL NEEDLE ASPIRATION documented in this encounter Results (ABNORMAL) Cytology Fine Needle Aspiration (including core biopsies) (06/30/2018 11:05 AM MAINTENANCE TEAM LEADER) Component Value Ref Test Analysis Performed At [facility] Range Method Time Signature Gross Description A: ?? Received 4 spray-fixed smears, 4 Diff-Quik stained 07/01/2018 [facility] smears, and 4cc of blood-tinged fluid. 1 0:16 AM LABORATORIES - Specimen evaluated for adequacy on site. [facility] B: ?? Received 4 spray-fixed smears, [...] right, EBUS fine needle aspiratio n 07/01/2018 [facility] B. Lymph node, Station 7, EBUS fine needle aspiration 10:16 AM LABORATORIES - C. Lymph node, Station 4 left, EBUS fine needle aspiration [facility] D. Lymph node, Station 11 left, EBUS fine needle aspiration [place] (I) Report Laquita Souza M.D. [id number] 07/01/2018 [facility] electronically I verify that I have examined all relevant slides/ma terials 10:16 AM LABORATORIES - signed by for the specimen(s) and rendered or confirmed the diagnosi s. [facility] () [place] (I) 07/01/2018 [facility] 10:16 AM LABORATORIES - [facility] Interpretation A. Lymph node, Station 4 right, EBUS fine needle asp iration 07/01/2018 [facility] (smears/cell block): Negative for malignancy. Lymphocytes 10:16 AM LABORATORIES - consistent with sampled lymph node. [facility] B. Lymph node, Station 7, EBUS fine needle aspiration [place] (smears/cell block): Negative for malignancy. Lymphocytes consistent [...] Laterality Aspirate (Lymph 06/30/2018 11:05 Node) AM MAINTENANCE TEAM LEADER Aspirate (Lymph 06/30/2018 11:19 Node) AM MAINTENANCE TEAM LEADER Aspirate (Lymph 06/30/2018 11:32 Node) AM MAINTENANCE TEAM LEADER Aspirate (Lymph 06/30/2018 11:38 Node) AM MAINTENANCE TEAM LEADER Narrative This result has an attachment that is no t available. Keaton Noe M.D. LAB SURG PATH ORDERABLES Performing Organization Address City/State/ZIP Code Phon e Number [facility] - [address] documented in this encounter Visit Diagnoses Diagnosis 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) documented in this encounter Administered Medications Inactive Administered Medications - up to 3 most recent administrations Medication Order MAR Action Action Date Dose Rate Site ipratropium-albuterol 0.5-2.5 mg/3 Given 06/30/2018 9:43 AM MAINTENANCE TEAM LEADER 3 mL mL nebulizer solution 3 mL (DUO-NEB) 3 mL, nebulization, Once, On Sat06/30/18 at 0915, For 1 dose, Pre-Op NaCl 0.9% infusion 20 mL/hr, intravenous, Continuous, Starting on 06/30 at 0915, Pre-Op documented in this encounter Active and Recently Administered Medications Times are shown in MAINTENANCE TEAM LEADER. Scheduled Medication Order 06/28/2018 06/29/2018 06/30/2018 ipratropium-albuterol [...]
--- OUTSIDE RECORDS SUMMARY | 2022-03-01 10:18 | XMS_ITS | Encounter Summary ---
:1955 Author Organization [facility] Address [address] [place] [address] Care Team Providers Name Role Phone Unavailable Primary Care Provider Unavailable Reason for Visit Reason Comments Lung Cancer Outpatient (Routine) - Closed Specialty Diagnoses / Procedures Referred By Contact Refer red To Contact Thoracic Surgery Diagnoses Malignant Neoplasm Of Lung Adenocarcinoma Left (HCC) Laquita Silverio M.D. [address] [address] Referral ID Status Reason Start Date Expiration Date Visits Requ ested Visits Authorized [id number] Closed 05/07/2018 05/07/2019 1 1 Encounter Details Date Type Department Care Team Description 05/27/2018 Comprehensive Visit Division of Kj Lyn Neoplasm Of Thoracic Surgery Fany Mitchell M.D. Lung Adenocarcinoma in [place], [facility] [address] [facility] (HCC) [place], [place] [address] [facility] [address] [place], [place] [phone] (Work) [phone] Social History Tobacco Use Types Packs/Day Years Used Date Smoking Tobacco: Former Cigarettes 1 25 Quit : 2004 Smokeless Tobacco: Never Tobacco Cessation: Counseling Given: No Alcohol Use Standard Drinks/Week Comments No 0 (1 standard drink = 0.6 oz pure alcoho l) Sex Assigned at Date Recorded Not on file documented as of this encounter Consult Notes Fozia Ramsay P.A.-C. - 05/27/2018 3:00 PM CST CHIEF COMPLAINT / REASON FOR CONSULT Chief Complaint Patient presents with ??? Lung Cancer HISTORY OF PRESENT ILLNESS Sarah Reyes is a 63 y.o. from [place], [place] I saw with Dr. Lyn today. She was referred to us for an evaluation regarding a left lung mass. In summary she is an ex smoker of 25 pack-years who quitall use at the age of 50. She has rather significant mental illness and had been living in a usp near [place] though has been recently moved up here to live with her sister. In June she underwent a lung cancer screening CT chest of which they found several lung nodules. A PET scan in July did not reveal any abnormalities. Follow-up CT chest on January 11 revealed: CONCLUSION: 1. Left upper lobe nodule with central cavitation is mildly increased in size measuring 13 x 13 mm was 12 x 10 mm. 2. Multiple additional nodular densities throughout the lungs are stable. 3. Previously noted right middle lobe ground-glass nodule is no longer identified. 4. Minimally prominent but not significantly enlarged mediastinal lymph nodes are stable. 5. Previously noted right perihilar consolidation on PET-CT exam from 08/19/2017 has resolved. 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 Pulmonary function tests reveal an FEV1 of 1.65 or 69% of predicted value and a DLCO of 81% of predicted value. Up-to-date CT chest was completed today. It would be helpful to have all of her old imaging from [facility] in order to review the other nodules that were found and determine stability. She is scheduled to have a PET scan soon. She does have some shortness of breath but is limited more to her orthopedic issues in her feet in joints. No fevers, chills, recent infections. She does have a dry cough at times. No weight loss or night sweats. No neurologic or bony symptoms. Past Medical History: Diagnosis Date ??? Apnea Sleep Obstructive 05/15/2018 ??? Asthma Mild Intermittent (HCC) 08/11/2015 ??? Diabetes Mellitus Type 2 (HCC) 05/05/2018 ??? Edema Localized 09/27/2016 ??? Malignant Neoplasm Of Lung Adenocarcinoma Left (HCC) 05/05/2018 ??? Metabolic Syndrome 06/12/2016 ??? Morbid obesity (CMS/HCC) (HCC) 12/26/2014 ??? Nonrheumatic Mitral Valve Insufficiency 08/27/2017 ??? Other Shelter Current Drug Therapy 05/26/2018 ??? Schizophrenia (HCC) 05/05/2018 History reviewed. No pertinent surgical history. Current Outpatient Prescriptions: ??? acetaminophen (TYLENOL) 500 mg tablet, Take 500 mg by mouth., Disp: , Rfl: ??? albuterol (PROVENTIL HFA,VENTOLIN HFA) 90 mcg/actuation inhaler, Inhale 1-2 puffs., Disp: , Rfl: ??? citalopram (CeleXA) 20 mg tablet, Take 20 mg by mouth., Disp: , Rfl: ??? cloZAPine (CLOZARIL) 100 mg tablet, Take 400 mg by mouth., Disp: , Rfl: ??? cloZAPine (CLOZARIL) 50 mg tablet, Take 50 mg by mouth., Disp: , Rfl: ??? dilTIAZem LA (CARDIZEM LA) 120 mg 24 hr tablet, 120 mg., Disp: , Rfl: ??? ipratropium-albuterol (DUO-NEB) 0.5-2.5 mg/3 mL nebulizer solution, Inhale 3 mL., Disp: , Rfl: ??? melatonin 1 mg tablet, Take 1 mg by mouth., Disp: , Rfl: ??? montelukast (SINGULAIR) 10 mg tablet, Take 10 mg by mouth., Disp: , Rfl: ??? UNABLE TO FIND, TAKE 1 PACKET BY MOUTH EVERY MORNING (8AM) (CALL PHARMACY TO REFILL), Disp: , Rfl: ??? vitamin E 400 unit capsule, Take 400 Units by mouth., Disp: , Rfl: ??? zolpidem (AMBIEN) 5 mg tablet, Take 5 mg by mouth., Disp: , Rfl: ??? albuterol sulfate (PROAIR HFA INHL), Inhale., Disp: , Rfl: ??? ARIPiprazole (ABILIFY) 10 mg tablet, Take 10 mg by mouth., Disp: , Rfl: ??? fluticasone (FLONASE) 50 mcg/actuation nasal spray, , Disp: , Rfl: 5 ??? MYRBETRIQ 50 mg 24 hr tablet, , Disp: , Rfl: 4 ??? omeprazole (PriLOSEC) [address] capsule, , Disp: , Rfl: 1 ??? zolpidem (AMBIEN) 5 mg tablet, , Disp: , Rfl: 1 No Known Allergies SOCIAL HISTORY She is here today with her sister of whom she lives with. She has a 35-year-old son and a 15-year-old grandson. She has been on disability due to mental illness. She has a smoking history of 1 pack a day for 25 years and quit all use at the age of 50. She denies alcohol intake. REVIEW OF SYSTEMS Pertinent items are noted in the history of present illness. OBJECTIVE PHYSICAL EXAM There were no vitals filed for this visit. DIAGNOSTICS Ct Chest With Iv Contrast Result Date: 05/27/2018 Impression: IMPRESSION: 1. Spiculated nodule in the left upper lobe highly suspicious for bronchogenic carcinoma. 2. Indeterminate nodule in the left lower lobe could be metastasis, granuloma or 2nd primary tumor. 3. Mildly suspicious nodes in the left hilum and AP window. Right-sided mediastinal hilar nodes are likely reactive 4. Small airways inflammation with a very shallow inspiration. This limits evaluation of the lung parenchyma. ASSESSMENT / PLAN This was a patient sent directly to Dr. Lyn. Please see her note for definitive plan of care.We will ask our team to acquire the imaging from [facility] near [place]. In additionshe is scheduled for bronchoscopy with endobronchial ultrasound. I will follow up with them by phone once we have all that information to finalize plan of care. PATIENT EDUCATION Ready to learn, no apparent learning barriers were identified; learning preferences include listening. Explained diagnosis and treatment plan; patient expressed understanding of the content. Greater than 50% of that time spent in education, counseling, and coordinating patient care plan. Associated attestation - Fany Lyn M.D. - 08/07/2018 4:16 PM CDT I was the supervising physician in the delivery of the service. I have reviewed the imaging and discussed the plan of care with Ms. Fozia Ramsay I do think that based on the patient's social situation and her pulmonary function testing a wedge resection of the upper lobe is warranted. I do recommend that she send us the PET scan so that we can review. We will then determine whether she would need mediastinal staging prior to surgery or potentially a lobectomy. Once the PET scan is complete we would be happy to review it and determine the planof care from there. documented in this encounter Plan of Treatment Not on filedocumented as of this encounter Visit Diagnoses Diagnosis 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) documented in this encounter
--- OUTSIDE RECORDS SUMMARY | 2022-03-01 10:18 | XMS_ITS | Encounter Summary ---
:1955 Author Organization [facility] Address [address] [place] [address] Care Team Providers Name Role Phone Unavailable Primary Care Provider Unavailable Encounter Details Date Type Department Care Team Description 06/11/2018 Orders Only Division of Thoracic Francesco Vang Neoplasm Of Surgery in [place], [facility] Lung (HCC) [place] [address] [facility] [address] [place] [phone] Social History Tobacco Use Types Packs/Day Years Used Date Smoking Tobacco: Former Cigarettes 1 Quit : 2004 Smokeless Tobacco: Never Alcohol Use Standard Drinks/Week Comments No 0 (1 standard drink = 0.6 oz pure alcoho l) Sex Assigned at Date Recorded Not on file documented as of this encounter Plan of Treatment Not on filedocumented as of this encounter Results PET CT Skull to Thigh FDG (06/13/2018 12:40 PM PUBLIC WEIGHER) Anatomical Region Laterality Modality Body, Nuclear Medicine PET RST LOS, PET N/A Positron Emission Tomography (PET) ARZ LOS, Nuclear Medicine PET FLA LOS Specimen (Source) Anatomical Collection Method Collection Time Re ceived Time Location / / Volume Laterality 06/13/2018 12:44 PM PUBLIC WEIGHER Impressions 06/13/2018 1:29 PM PUBLIC WEIGHER IMPRESSION: ?? 1. Stable non-FDG avid biopsy-proven [...] for further delineation. Narrative 06/13/2018 1:29 PM PUBLIC WEIGHER EXAM: ??PET CT SKULL TO THIGH FDG Finger stick glucose level at the time o f the PET scan injection was 89 mg/dL. RADIOPHARMACEUTICAL/MEDS: Route: intravenous fludeoxyglucose F 18 injection CUSTODIAL (FDG F-18),15.03 millicurie TECHNIQUE: ??F-18 FDG PET/CT [...] RADIOPHARMACEUTICAL/MEDS: Route: intravenous fludeoxyglucose F 18 injection CUSTODIAL (FDG F-18),15.03 millicurie TECHNIQUE: F-18 FDG PET/CT [...] be performed for further delineation. Francesco Vang III, P.A.-C. [facility] PROCEDURES documented in this encounter Visit Diagnoses Diagnosis Malignant Neoplasm Of Unspecified Part O f Lung Laterality Unknown (HCC) Malignant Neoplasm Of Unspecified Part O f Lung Laterality Unknown (HCC) documented in this encounter
--- OUTSIDE RECORDS SUMMARY | 2022-03-01 10:18 | XMS_ITS | Encounter Summary ---
:1955 Author Organization [facility] Address [address] [place] [address] Care Team Providers Name Role Phone Unavailable Primary Care Provider Unavailable Encounter Details Date Type Department Care Team Description 05/05/2018 Orders Only Department of Laquita Silverio Malignant N eoplasm Of Oncology in [facility] Lung Adenocarcinoma Left [place], [place] [address] (HCC) (Primary Dx) [address] [place] [phone] Social History Tobacco Use Types Packs/Day Years Used Date Smoking Tobacco: Never Assessed Sex Assigned at Date Recorded Not on file documented as of this encounter Plan of Treatment Not on filedocumented as of this encounter Visit Diagnoses Diagnosis 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
--- OUTSIDE RECORDS SUMMARY | 2022-03-01 10:18 | XMS_ITS | Encounter Summary ---
:1955 Author Organization [facility] Address [address] [place] [address] Care Team Providers Name Role Phone Unavailable Primary Care Provider Unavailable Reason for Referral Outpatient (Routine) - Canceled Specialty Diagnoses / Procedures Referred By Contact Refer red To Contact Diagnoses Malignant Neoplasm Of Lung Adenocarcinoma Left (HCC) Laquita Silverio M.D. [facility] Procedures PET CT Skull to Thigh FDG GA PET/CT TRUNK HC PET/CT TRUNK GA PET/CT TRUNK [address] [place] [phone] Referral ID Status Reason Start Date Expiration Date Visits V isits Requested Authorized [id number] Canceled 05/07/2018 05/07/2019 6 6 IR MECHANIC Reason for Visit Outpatient (Routine) - Canceled Specialty Diagnoses / Procedures Referred By Contact Refer red To Contact Diagnoses Malignant Neoplasm Of Lung Adenocarcinoma Left (HCC) Laquita Silverio M.D. [facility] Procedures PET CT Skull to Thigh FDG GA PET/CT TRUNK HC PET/CT TRUNK GA PET/CT TRUNK [address] [place] [address] Referral ID Status Reason Start Date Expiration Date Visits V isits Requested Authorized [id number] Canceled 05/07/2018 05/07/2019 6 6 Encounter Details Date Type Department Care Team Description 05/23/2018 Hospital Encounter Department of Laquita Silverio Neoplasm Of Radiology, Torres Brown M.D. Lung Adenocarcinoma Building, in [address] [place] [address] Left (HCC) [facility] [address] [phone] [place], [place] (Work) [phone] Social History Tobacco Use Types Packs/Day Years [...] needed for wheezing or shortness of breath. dilTIAZem LA (CARDIZEM Take 120 mg by [...] mouth 0 10 mg tablet at bedtime. vitamin E 400 unit Take 400 Units by 0 08/16/2016 capsule mouth daily. melatonin 1 mg tablet Take 1 mg by mouth at 0 2021 bedtime. UNABLE TO FIND TAKE 1 PACKET BY 0 09/02/201707/28 MOUTH EVERY MORNING (8AM) (CALL PHARMACY TO REFILL) zolpidem (AMBIEN) 5 mg 1 05/06/2018 tablet zolpidem (AMBIEN) 5 mg Take 5 mg by mouth. 0 03/3006/30/2018 tablet documented as of this encounter Plan of Treatment Scheduled Orders Name Type Priority Associated Diagnoses Order S chedule PET CT Skull to Imaging RAD - Routine (most Malignant Neoplasm Of Once for 1 Thigh FDG inpatients and all Lung Adenocarcinoma Oc currences starting outpatients) Left ([facility]) 05/23/2018 unti l 05/23/2018 documented as of this encounter Visit Diagnoses Diagnosis 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) documented in this encounter
--- OUTSIDE RECORDS SUMMARY | 2022-03-01 10:18 | XMS_ITS | Encounter Summary ---
:1955 Author Organization [facility] Address [address] [place] [address] Care Team Providers Name Role Phone Unavailable Primary Care Provider Unavailable Reason for Visit Outpatient (Routine) - Closed Specialty Diagnoses / Procedures Referred By Contact Refer red To Contact Pulmonary Medicine Diagnoses Malignant Neoplasm Of Lung Adenocarcinoma Left (HCC) Laquita Silverio M.D. [place] [facility] [address] [place] [phone] Referral ID Status Reason Start Date Expiration Date Visits Requ ested Visits Authorized [id number] Closed 06/18/2018 06/18/2019 1 1 Encounter Details Date Type Department Care Team Description 06/25/2018 Comprehensive Visit Division of Kj Longoria Neoplasm Of Pulmonary Medicine Dung Walden M.D. Lung Adenocarcinoma in [place], [facility] [address] [facility] (HCC) [place], [place] [address] [facility] [address] [place], [place] [phone] (Work) [phone] Social History Tobacco Use Types Packs/Day Years [...] - Inhaled Oxygen Concentration - - Weight 99.1 kg (218 lb 7.6 oz) 06/25/2018 11:27 AM MANAGER BIOLOGICS Height 160.8 cm (5' 3.31) 06/25/2018 11:27 AM MANAGER BIOLOGICS Body Mass Index 38.33 06/25/2018 11:27 AM MANAGER BIOLOGICS documented in this encounter Consult Notes Dung Longoria M.D. - 06/25/2018 11:30 AM CST SUBJECTIVE REASON FOR CONSULT Please do bronchoscopy. HISTORY OF PRESENT ILLNESS This is a 63-year-old former smoker who comes to us from [place], [place], which is near [place]. She has a background history of asthma, [...] BMI = 38. SOCIAL HISTORY Approximately a 61-gvvy-iojn history of smoking, quit 14 years ago. [...] to do this in the OR at [facility]. I let her know that [...] We talked about the relative risks/benefits/alternatives. Thanks! GER BIOLOGICS documented in this encounter Plan of Treatment Not on filedocumented as of this encounter Visit Diagnoses Diagnosis 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) documented in this encounter
--- OUTSIDE RECORDS SUMMARY | 2022-03-01 10:18 | XMS_ITS | Encounter Summary ---
:1955 Author Organization [facility] Address [address] [place] [address] Care Team Providers Name Role Phone Unavailable Primary Care Provider Unavailable Reason for Referral Outpatient (Routine) - Closed Specialty Diagnoses / Procedures Referred By Contact Refer red To Contact Pulmonary Medicine Diagnoses Malignant Neoplasm Of Lung Adenocarcinoma Left (HCC) Laquita Silverio M.D. [address] [address] Referral ID Status Reason Start Date Expiration Date Visits Requ ested Visits Authorized [id number] Closed 06/18/2018 06/18/2019 1 1 K TERMINAL MANAGER Encounter Details Date Type Department Care Team Description 06/18/2018 Orders Only Department of Laquita Silverio Malignant N eoplasm Of Oncology in [facility] Lung Adenocarcinoma Left [place] [address] [address] [facility] (HCC) (Primary Dx) [address] [place] [phone] Social History Tobacco Use Types Packs/Day [...] Type Priority Associated Diagnoses Order S chedule Pulmonary Medicine - Outpatient Routine Malignant Neoplasm O f Expected: Bronchoscopy consult Referral Lung Adenocarcinoma 06/19/2018, (clinic) Left (HCC) Expires: 06/18/2021 documented as of this encounter Visit Diagnoses Diagnosis 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
[2022-03-01 10:32] LABS: Lactate* 0.7 mmol/L (0.5-1.9)
[2022-03-01 10:34] LABS: Basophils Absolute Auto 0.01 K/uL (0.00-0.30); Basophils Percent Auto 0.2 % (0.0-3.0); Hematocrit 36.5 % (33.0-51.0); Hemoglobin* 11.7 gm/dL (12.0-16.0); Immature Granulocytes Abs Auto 0.05 K/uL (0.00-0.30); Immature Granulocytes Pct Auto 0.8 %; Lymphocytes Absolute Auto 1.26 K/uL (0.90-2.90); Lymphocytes Percent Auto 20.6 % (20-44); Mean Corpuscular HGB Conc 32 gm/dL (32-36); Mean Corpuscular Hemoglobin 28 pg (26-34); Mean Corpuscular Volume 88 fL (80-100); Monocytes Percent Auto 6.4 % (0.0-11.0); Neutrophils Absolute Auto 4.42 K/uL (1.7-7.0); Platelet Count* 189 K/uL (140-440); RDW Coefficient of Variation % 13.2 % (11.5-15.5); Red Blood Count 4.15 m/uL (4.00-5.20); White Blood Count* 6.13 K/uL (4.50-11.00)
[2022-03-01 10:36] LABS: Slide Review Reflex No
[2022-03-01 10:52] LABS: Chloride* 102 mmol/L (96-114); Potassium* 3.6 mmol/L (3.6-5.1); Sodium* 138 mmol/L (135-149)
[2022-03-01 10:55] LABS: Blood Urea Nitrogen* 18 mg/dL (7-30); Carbon Dioxide* 28 mmol/L (20-32); Creatine Kinase* 58 U/L (41-117); Creatinine* 0.6 mg/dL (0.5-1.5); Estimated Glomerular Filt Rate 99 ml/min; Glucose* 88 mg/dL (60-115)
[2022-03-01 10:56] LABS: Calcium* 9.1 mg/dL (8.4-10.6)
--- NOTE | 2022-03-01 11:21 | ED_ITS ---
HPI - General Adult General Chief complaint: Fall/Minor Trauma Stated complaint: Fall Time Seen by Provider: 03/01/22 09:08 Source: patient and RN notes reviewed History of Present Illness HPI narrative: Patient is a 66-year-old woman from [place] who had a fall at around 3:00 a.m.. She apparently was not checked on until 7:00 a.m. and she was not able to get up by herself so she was laying on the floor for that time. She has complained of some pain in her calf where she has a bruise. She also has an abrasion on her elbow and has complained of pain there. She walks with a walker typically. Otherwise she is in a wheelchair. There is no reported head injury. She is not on blood thinners. She is somewhat sleepy but this is apparently her baseline according to her sister. She has had no vomiting or seizures. She does answer questions appropriately for me. She says she has pain in the lower half of her body all of the time, mostly in her feet. The calf pain appears to be new. She is able to move her right arm without too much difficulty. Denies headache or neck pain. There is no reported recent illness such as fevers, vomiting, diarrhea. Related Data Allergies Allergy/AdvReac Type Severity Reaction Status Date / Time No Known Drug Allergies Allergy Verified 03/01/22 08:59 Review of Systems Status of ROS: Reports: 10 or more systems reviewed and unremarkable except as noted in History and below [facility] Social History Smoking Status: Unknown if ever smoked How often do you have a drink containing alcohol: never AUDIT-C Alcohol total score: 0 Non-prescribed substance use: denies use service: No Exam Narrative: Exam Narrative: Vital signs as noted above. In general, an alert, nontoxic woman. Head: Normocephalic, atraumatic. Nontender to palpation. Eyes: Pupils are equal reactive. Extraocular movements are full. Conjunctivae are normal. ENT: Mucous membranes are moist. Throat is normal. Neck: Supple without lymphadenopathy. Heart: Regular rate and rhythm. No murmur or rub. Lungs: Clear bilaterally. No increased work of breathing, crackles or wheezes. Abdomen: Soft and nontender. No organomegaly. Extremities: Well perfused. No edema. No calf tenderness. Pulses intact. Abrasion on the right elbow, no apparent bony tenderness. Range of motion is full. On the right calf, there is a bruise noted. She does not seem to have any tenderness anywhere in the right lower extremity. She has full range of motion of the hip and knee. Neurologic: Patient is alert and oriented to person and place. Speech is fluent. Face is symmetric. Moves all extremities equally. Affect: Normal. Skin: Warm and dry. Well perfused. Const: Vital Signs, click to edit/add: Vital Signs - 24 hr 03/01/22 09:00 03/01/22 10:48 03/01/22 10:50 Temperature 96.5 F L Pulse Rate 102 H 106 H Pulse Rate [Right Pulse Oximeter] 106 H Respiratory Rate 18 Blood Pressure 142/82 H Blood Pressure [Ri ght Upper Arm] 153/88 H Pulse Oximetry 95 95 94 Oxygen Delivery Me thod Room Air 03/01/22 11:00 03/01/22 11:01 03/01/22 11:31 Temperature Pulse Rate 100 102 H Pulse Rate [Right Pulse Oximeter] Respiratory Rate Blood Pressure 151/91 H 150/80 H Blood Pressure [Ri ght Upper Arm] Pulse Oximetry 96 95 Oxygen Delivery Me thod 03/01/22 12:01 Temperature Pulse Rate Pulse Rate [Right Pulse Oximeter] Respiratory Rate Blood Pressure 150/80 H Blood Pressure [Ri ght Upper Arm] Pulse Oximetry Oxygen Delivery Me thod Course Course Hospital Course: We did give her a little fluid here as she was mildly tachycardic and was laying on the floor for several hours. I checked a CBC, hemoglobin was 11.7 otherwise it was normal. CK was normal and electrolytes were normal as well. BUN was 18, creatinine was 0.6. I did x-ray the right elbow and by my review this was negative. Final radiology report was likewise negative. I did not do any imaging of the lower extremities as she was ambulatory here without difficulty and I could not find any areas that were tender to palpation nor any joints that seemed painful with range of motion. I think it is reasonable to let her go home. If anything else comes up they can certainly have her return for further evaluation. Vital Signs Vital signs: Initial Vital Signs Temperature 96.5 F L 03/01/22 09:00 Temperature Source Temporal Artery Scan 03/01/22 09:00 Pulse Rate 106 H 03/01/22 09:00 Respiratory Rate 18 03/01/22 09:00 Blood Pressure 153/88 H 03/01/22 09:00 Blood Pressure Mean 109 03/01/22 09:00 Pulse Oximetry 95 03/01/22 09:00 Oxygen Delivery Method 03/01/22 09:00 Vital Signs Temperature 96.5 F L 03/01/22 09:00 Pulse Rate 106 H 03/01/22 09:00 Respiratory Rate 18 03/01/22 09:00 Blood Pressure 153/88 H 03/01/22 09:00 Pulse Oximetry 95 03/01/22 09:00 Oxygen Delivery Method 03/01/22 09:00 Temperature 96.5 F L 03/01/22 09:00 Pulse Rate 102 H 03/01/22 11:01 Respiratory Rate 18 03/01/22 09:00 Blood Pressure 150/80 H 03/01/22 12:01 Pulse Oximetry 95 03/01/22 11:01 Oxygen Delivery Method 03/01/22 09:00 Medical Decision Making Lab Data Labs: Lab Results 03/01/22 03/01/22 03/01/22 Range/Units 10:20 10:20 10:20 WBC 6.13 (4.50-11.00) K/uL RBC 4.15 (4.00-5.20) m/uL Hgb 11.7 L (12.0-16.0) gm/dL Hct 36.5 (33.0-51.0) % MCV 88 (80-100) fL MCH 28 (26-34) pg MCHC 32 (32-36) gm/dL RDW Coeff of Emily 13.2 (11.5-15.5) % Plt Count 189 (140-440) K/uL Neut % (Auto) 72.0 (42.0-72.0) % Lymph % (Auto) 20.6 (20-44) % [place] % (Auto) 6.4 (0.0-11.0) % Eos % (Auto) 0.0 (0.0-7.0) % Baso % (Auto) 0.2 (0.0-3.0) % Neut # (Auto) 4.42 (1.7-7.0) K/uL Lymph # (Auto) 1.26 (0.90-2.90) K/uL [place] # (Auto) 0.40 (0.00-0.90) K/UL Eos # (Auto) 0.00 (0.00-0.50) K/uL Baso # (Auto) 0.01 (0.00-0.30) K/uL Abs Immat Gran (auto) 0.05 (0.00-0.30) K/uL Imm/Tot Granulo (auto) 0.8 % Sodium 138 (135-149) mmol/L Potassium 3.6 (3.6-5.1) mmol/L Chloride 102 (96-114) mmol/L Carbon Dioxide 28 (20-32) mmol/L BUN 18 (7-30) mg/dL Creatinine 0.6 (0.5-1.5) mg/dL Estimated GFR 99 ml/min Glucose 88 (60-115) mg/dL Lactate 0.7 (0.5-1.9) mmol/L Calcium 9.1 (8.4-10.6) mg/dL Total Creatine Kinase 58 (41-117) U/L SARS-CoV-2 (PCR) (Negative) Influenza Type A (PCR) (Negative) Influenza Type B (PCR) (Negative) RSV (PCR) (Negative) 03/01/22 Range/Units 10:20 WBC (4.50-11.00) K/uL RBC (4.00-5.20) m/uL Hgb (12.0-16.0) gm/dL Hct (33.0-51.0) % MCV (80-100) fL MCH (26-34) pg MCHC (32-36) gm/dL RDW Coeff of Emily (11.5-15.5) % Plt Count (140-440) K/uL Neut % (Auto) (42.0-72.0) % Lymph % (Auto) (20-44) % [place] % (Auto) (0.0-11.0) % Eos % (Auto) (0.0-7.0) % Baso % (Auto) (0.0-3.0) % Neut # (Auto) (1.7-7.0) K/uL Lymph # (Auto) (0.90-2.90) K/uL [place] # (Auto) (0.00-0.90) K/UL Eos # (Auto) (0.00-0.50) K/uL Baso # (Auto) (0.00-0.30) K/uL Abs Immat Gran (auto) (0.00-0.30) K/uL Imm/Tot Granulo (auto) % Sodium (135-149) mmol/L Potassium (3.6-5.1) mmol/L Chloride (96-114) mmol/L Carbon Dioxide (20-32) mmol/L BUN (7-30) mg/dL Creatinine (0.5-1.5) mg/dL Estimated GFR ml/min Glucose (60-115) mg/dL Lactate (0.5-1.9) mmol/L Calcium (8.4-10.6) mg/dL Total Creatine Kinase (41-117) U/L SARS-CoV-2 (PCR) Negative SARS-CoV-2 (Negative) Influenza Type A (PCR) Negative PCR FLU A (Negative) Influenza Type B (PCR) Negative PCR FLU B (Negative) RSV (PCR) Negative PCR RSV (Negative) Discharge Plan Discharge Clinical Impression: Fall, Contusion of right lower leg, Abrasion of elbow Patient Disposition: Xfer Other Condition: Stable Instructions: Contusion in Adults (ED), Abrasion (ED) Additional Instructions: Tylenol and ice as needed for soreness. Primary care a follow-up if not improving over the next few days, or for signs of infection of the abrasion. Stand Alone Forms: MyHealth Info Instructions
[2022-03-01 11:35] LABS: PCR FLU A Negative PCR FLU A (Negative); PCR FLU B Negative PCR FLU B (Negative); PCR RSV Negative PCR RSV (Negative); SARS PCR* Negative SARS-CoV-2 (Negative)
== END 2022-03-01 12:48 | disposition other institution (70) ==
PROVIDERS: Emergency Provider Emergency Medicine; PCP Family Medicine
DX: S80.11XA Contusion of right lower leg, initial encounter (principal); X58.XXXA Exposure to other specified factors, initial encounter; S50.311A Abrasion of right elbow, initial encounter; W19.XXXA Unspecified fall, initial encounter
CPT/HCPCS: 36415; 73080; 80048; 82550; 83605; 85025; 87502; 87634; 87635; 99283; 99284

== ENCOUNTER 2022-10-07 20:26 | Outpatient (CLI) | payer MEDICARE, MEDICAID, SELFPAY | END 2022-10-07 20:27 | disposition home or self-care (01) | PROVIDERS: PCP Family Medicine; Visit Provider Internal Medicine | DX: G47.33 Obstructive sleep apnea (adult) (pediatric) (principal) | CPT/HCPCS: 95811 ==

== ENCOUNTER 2022-10-10 15:04 | Outpatient (CLI) | payer MEDICARE, MEDICAID, SELFPAY | END 2022-10-10 15:05 | disposition home or self-care (01) | LOC: AMB 10-11 11:19 | PROVIDERS: PCP Family Medicine; Visit Provider Family Medicine | DX: S59.911A Unspecified injury of right forearm, initial encounter (principal); W18.30XA Fall on same level, unspecified, initial encounter; Y92.129 Unspecified place in nursing home as the place of occurrence of the external cause | CPT/HCPCS: A0425; A0427 ==

== ENCOUNTER 2022-10-10 15:25 | Inpatient (IN) | payer MEDICARE, MEDICAID, SELFPAY ==
[2022-10-10] VITALS (51 sets, daily range): BP systolic 93–135; BP diastolic 49–89; PULSE 77–102; RESP 12–27; TEMP 36–37.3; O2SAT 90–96; BMI 39.3
--- NOTE | 2022-10-10 15:34 | CRLHL7_ITS ---
For Patients: As a result of the Cures Act, medical imaging exams and procedure reports are released immediately into your electronic medical record. You may view this report before your referring provider. If you have questions, please contact your health care provider. Indication: Injury. Technique: Two views of the right humerus. Comparison: None Findings/Impression: No acute fracture or dislocation. No focal soft tissue abnormality identified. Dictated by Ben Tatum MD @ 10/10/2022 5:48:52 PM (Electronically Signed)
--- NOTE | 2022-10-10 15:35 | CRLHL7_ITS ---
For Patients: As a result of the Cures Act, medical imaging exams and procedure reports are released immediately into your electronic medical record. You may view this report before your referring provider. If you have questions, please contact your health care provider. Indication: Injury. Technique: Two views of the right forearm. Comparison: None Findings/Impression: Compound comminuted fracture of the distal ulna, with significant foreshortening and displacement. Open fracture at the medial aspect involves the proximal ulnar fracture fragment. Comminuted fracture of the mid to distal right radius, with significant foreshortening and displacement. On provided views, there is no definite dislocation of the wrist or elbow joint. Dictated by Ben Tatum MD @ 10/10/2022 5:41:08 PM (Electronically Signed)
--- NOTE | 2022-10-10 15:38 | ED_ITS ---
HPI - General Adult General Chief complaint: Extremity Pain/Injury, Upper Stated complaint: Fracture Time Seen by Provider: 10/10/22 15:34 History of Present Illness HPI narrative: The patient is a 67 year white female resident of [place], who was apparently all walking going down a steep slope fell and injured her right arm, she has an open fracture with bone sticking through the wound on the dorsal surface of the arm mid arm she does appear to be in a lot of pain. She was brou ght in by ambulance. On presentation the area was covered with wet saline gauze, kept immobilized and IV Ancef was given as well as updated tetanus shot and fluid. Patient will get an x-ray of the right forearm. She denies other pain or injury. She has apparently appears very somnolent at times and that is with her mental health and medications per her family in the past notes. I see evidence of schizophrenia on her prior medical chart. Related Data Allergies Allergy/AdvReac Type Severity Reaction Status Date / Time No Known Drug Allergies Allergy Verified 03/01/22 08:59 Review of Systems Status of ROS: Reports: unobtainable due to medical condition [facility] Social History Smoking Status: Unknown if ever smoked How often do you have a drink containing alcohol: never AUDIT-C Alcohol total score: 0 Non-prescribed substance use: denies use service: No Exam Narrative: Exam Narrative: Objective: Patient is alert, HEENT shows a small laceration of the anterior tongue that was bleeding slightly and now has good hemostasis does not about not appear to be deep. Dental occlusion appears normal neck is nontender back unremarkable her pulses regular chest abdomen unremarkable her right forearm shows what appears to be or illness sticking through a 5/6 cm open wound. Distal CMS intact in the right upper extremity she is able to move her hand and squeeze her hand. No pain over the elbow or proximal arm. Pulses regular abdomen benign pelvis stable lower extremities unremarkable with movement and normal sensation. Const: Vital Signs, click to edit/add: Vital Signs - 24 hr 10/10/22 15:32 10/10/22 15:35 10/10/22 15:35 Temperature 99.2 F Pulse Rate Pulse Rate [Pulse Oximeter] 96 Respiratory Rate 18 Blood Pressure Blood Pressure [Le ft Upper Arm] 101/58 L Pulse Oximetry 92 93 94 Oxygen Delivery Me thod Nasal Cannula Nasal Cannula Oxygen Flow Rate 2 10/10/22 15:35 10/10/22 15:36 10/10/22 15:38 Temperature Pulse Rate 98 100 98 Pulse Rate [Pulse Oximeter] Respiratory Rate Blood Pressure 101/58 L 93/53 L Blood Pressure [Le ft Upper Arm] Pulse Oximetry 92 92 93 Oxygen Delivery Me thod Nasal Cannula Nasal Cannula Nasal Cannula Oxygen Flow Rate 2 2 2 10/10/22 15:43 10/10/22 15:45 10/10/22 15:51 Temperature Pulse Rate 98 97 97 Pulse Rate [Pulse Oximeter] Respiratory Rate 27 H 24 21 Blood Pressure 102/49 L 100/53 L Blood Pressure [Le ft Upper Arm] Pulse Oximetry 93 96 94 Oxygen Delivery Me thod Nasal Cannula Nasal Cannula Nasal Cannula Oxygen Flow Rate 2 2 2 10/10/22 16:00 10/10/22 16:01 10/10/22 16:11 Temperature Pulse Rate 94 94 101 H Pulse Rate [Pulse Oximeter] Respiratory Rate 24 25 H 26 H Blood Pressure 104/51 L 102/52 L Blood Pressure [Le ft Upper Arm] Pulse Oximetry 93 93 93 Oxygen Delivery Me thod Nasal Cannula Nasal Cannula Nasal Cannula Oxygen Flow Rate 2 2 2 10/10/22 16:15 10/10/22 16:21 10/10/22 16:30 Temperature Pulse Rate 100 98 97 Pulse Rate [Pulse Oximeter] Respiratory Rate 18 24 21 Blood Pressure 104/52 L Blood Pressure [Le ft Upper Arm] Pulse Oximetry 94 93 93 Oxygen Delivery Me thod Nasal Cannula Nasal Cannula Nasal Cannula Oxygen Flow Rate 2 2 2 10/10/22 16:32 10/10/22 16:42 10/10/22 16:45 Temperature Pulse Rate 99 97 97 Pulse Rate [Pulse Oximeter] Respiratory Rate 21 23 12 Blood Pressure 106/51 L 110/60 Blood Pressure [Le ft Upper Arm] Pulse Oximetry 94 94 96 Oxygen Delivery Me thod Nasal Cannula Nasal Cannula Nasal Cannula Oxygen Flow Rate 2 2 2 10/10/22 16:51 10/10/22 17:00 10/10/22 17:01 Temperature Pulse Rate 99 97 99 Pulse Rate [Pulse Oximeter] Respiratory Rate 17 23 22 Blood Pressure 106/54 L 108/55 L Blood Pressure [Le ft Upper Arm] Pulse Oximetry 95 95 96 Oxygen Delivery Me thod Nasal Cannula Nasal Cannula Nasal Cannula Oxygen Flow Rate 2 2 2 10/10/22 17:02 10/10/22 20:27 10/10/22 20:28 Temperature Pulse Rate 99 90 91 Pulse Rate [Pulse Oximeter] Respiratory Rate 19 Blood Pressure 111/63 Blood Pressure [Le ft Upper Arm] Pulse Oximetry 95 92 92 Oxygen Delivery Me thod Oxygen Flow Rate Course Vital Signs Vital signs: Initial Vital Signs Temperature 99.2 F 10/10/22 15:32 Temperature Source Temporal Artery Scan 10/10/22 15:32 Pulse Rate 96 10/10/22 15:32 Pulse Rhythm Regular 10/10/22 15:32 Respiratory Rate 18 10/10/22 15:32 Blood Pressure 101/58 L 10/10/22 15:32 Blood Pressure Mean 72 10/10/22 15:32 Blood Pressure Position Supine 10/10/22 15:32 Pulse Oximetry 92 10/10/22 15:32 Oxygen Delivery Method Nasal Cannula 10/10/22 15:32 Vital Signs Temperature 99.2 F 10/10/22 15:32 Pulse Rate 96 10/10/22 15:32 Respiratory Rate 18 10/10/22 15:32 Blood Pressure 101/58 L 10/10/22 15:32 Pulse Oximetry 92 10/10/22 15:32 Oxygen Delivery Method Nasal Cannula 10/10/22 15:32 Temperature 99.2 F 10/10/22 15:32 Pulse Rate 91 10/10/22 20:28 Respiratory Rate 19 10/10/22 17:02 Blood Pressure 111/63 10/10/22 20:27 Pulse Oximetry 92 10/10/22 20:28 Oxygen Delivery Method Nasal Cannula 10/10/22 17:01 Oxygen Flow Rate 2 10/10/22 17:01 Medical Decision Making [facility] Narrative Medical decision making narrative: [age] year white female with schizophrenia with a fall with a right f orearm open fracture. Will update tetanus give Ancef IV, IV fluid, pain medication in the form of morphine 2 mg. Will get an orthopedic consult with x- ray review and disposition planning. Addendum: The patient has a both-bone open forearm fracture. Orthopedics to review Addendum: Dr. Gordon and has view the patient has an operative candidate and will make plans for anesthesia assessment and OR to repair this open both-bone forearm fracture. Lab Data Labs: Lab Results 10/10/22 Range/Units 15:49 WBC 7.55 (4.50-11.00) K/uL RBC 3.23 L (4.00-5.20) m/uL Hgb 8.7 L (12.0-16.0) gm/dL Hct 27.8 L (33.0-51.0) % MCV 86 (80-100) fL MCH 27 (26-34) pg MCHC 31 L (32-36) gm/dL RDW Coeff of Emily 14.4 (11.5-15.5) % Plt Count 188 (140-440) K/uL Neut % (Auto) 77.7 H (42.0-72.0) % Lymph % (Auto) 15.8 L (20-44) % [place] % (Auto) 6.1 (0.0-11.0) % Eos % (Auto) 0.0 (0.0-7.0) % Baso % (Auto) 0.1 (0.0-3.0) % Neut # (Auto) 5.90 (1.7-7.0) K/uL Lymph # (Auto) 1.20 (0.90-2.90) K/uL [place] # (Auto) 0.50 (0.00-0.90) K/UL Eos # (Auto) 0.00 (0.00-0.50) K/uL Baso # (Auto) 0.01 (0.00-0.30) K/uL Sodium 136 (135-149) mmol/L Potassium 3.9 (3.6-5.1) mmol/L Chloride 101 (96-114) mmol/L Carbon Dioxide 29 (20-32) mmol/L BUN 20 (7-30) mg/dL Creatinine 0.9 (0.5-1.5) mg/dL Estimated Creat Clear 45.16 Estimated GFR 70 ml/min Glucose 110 (60-115) mg/dL Calcium 8.4 (8.4-10.6) mg/dL Discharge Plan Discharge Clinical Impression: Fracture of forearm, right, open Patient Disposition: Admitted As Inpatient
[2022-10-10] MEDS: MORPHINE 4 MG/ML INJ 2 MG IVP (15:44)
[2022-10-10] MEDS: TETANUS/DIPHTH/PERTUSSIS 0.5 ML SYRINGE IM (15:47)
[2022-10-10 15:55] LABS: Basophils Absolute Auto 0.01 K/uL (0.00-0.30); Basophils Percent Auto 0.1 % (0.0-3.0); Hematocrit 27.8 % (33.0-51.0); Hemoglobin* 8.7 gm/dL (12.0-16.0); Immature Granulocytes Abs Auto 0.02 K/uL (0.00-0.30); Immature Granulocytes Pct Auto 0.3 %; Lymphocytes Percent Auto 15.8 % (20-44); Mean Corpuscular HGB Conc 31 gm/dL (32-36); Mean Corpuscular Hemoglobin 27 pg (26-34); Mean Corpuscular Volume 86 fL (80-100); Monocytes Percent Auto 6.1 % (0.0-11.0); Neutrophils Percent Auto 77.7 % (42.0-72.0); Platelet Count* 188 K/uL (140-440); RDW Coefficient of Variation % 14.4 % (11.5-15.5); Red Blood Count 3.23 m/uL (4.00-5.20); White Blood Count* 7.55 K/uL (4.50-11.00)
[2022-10-10 15:59] LABS: Slide Review Reflex No
[2022-10-10] MEDS: 0.9 % SODIUM CHLORIDE 500 ML 500 ML IV (16:00)
[2022-10-10] MEDS: CEFAZOLIN 2 GM INJ IVP (16:02)
--- NOTE | 2022-10-10 16:07 | ED.NURSE ---
Pt open wound on R forearm covered with moist gauze.
[2022-10-10 16:37] LABS: Chloride* 101 mmol/L (96-114); Potassium* 3.9 mmol/L (3.6-5.1); Sodium* 136 mmol/L (135-149)
[2022-10-10 16:40] LABS: Carbon Dioxide* 29 mmol/L (20-32); Creatinine* 0.9 mg/dL (0.5-1.5); Est. Creatinine Clearance* 45.16; Estimated Glomerular Filt Rate 70 ml/min
[2022-10-10 16:41] LABS: Blood Urea Nitrogen* 20 mg/dL (7-30); Calcium* 8.4 mg/dL (8.4-10.6); Glucose* 110 mg/dL (60-115)
--- NOTE | 2022-10-10 17:09 | PM.ORCN ---
History of Present Illness HPI Date Seen: 10/10/22 Chief complaint: Fracture Narrative: Sarah is a 67 year white female resident of [place], who was reportedly walking down a steep grade when she fell from a standing height landing on the no stress right arm. She noted obvious deformity and bone protruding through the ulnar side of her forearm. She was able to call for help. An ambulance was called. She was brought to [facility] the ambulance.? On presentation the area was covered with wet saline gauze, kept immobilized and IV Ancef was given as well as updated tetanus shot and fluid.? X-rays were obtained in the hospital. Two views of the forearm. This demonstrates a distal 1/3 radius and ulna diaphyseal both-bone forearm fracture. The ulna appears to be through the ulnar side of the forearm/open fracture. She denies numbness or tingling. Denies chest pain or shortness of breath.? She has a reported history of schizophrenia. Her sister and the legal guardian is with her at the bedside. She augments the history. Review of Systems Narrative: Per the HPI. [facility] Social History Smoking Status: Unknown if ever smoked How often do you have a drink containing alcohol: never AUDIT-C Alcohol total score: 0 Non-prescribed substance use: denies use service: No Meds Home Medications and Allergies Allergies Allergy/AdvReac Type Severity Reaction Status Date / Time No Known Drug Allergies Allergy Verified 03/01/22 08:59 Ortho Exam Narrative Exam Narrative: She is alert. She is supine in the emergency room bed. Her sister, and legal guardians at the bedside. There is a saline soaked gauze line over the ulnar side of the mid to distal 1/3 of the right forearm. This is blood-tinged. Upon removal it shows the ulna protruding through the skin consistent with an open fracture. There is an obvious angular deformity to the distal forearm as well consistent with her fracture. Sensation and motor function are currently intact in the radial, ulnar, and median nerve distribution. Digits are pink, warm, brisk cap refill. Palpable radial pulse and ulnar pulse. She acknowledges that her tongue is painful. There is a sub 1 cm laceration over the superficial cephalad portion of tongue near the tip just on the right side of midline. There is minimal to no active bleeding currently. She does have dry blood around her mouth/lips. Const Vital Signs, click to edit/add: Vital Signs - 24 hr 10/10/22 15:32 10/10/22 15:35 10/10/22 15:35 Temperature 99.2 F Pulse Rate 98 Pulse Rate [Pulse Oximeter] 96 Respiratory Rate 18 Blood Pressure 101/58 L Blood Pressure [Left Upper Arm] 101/58 L Pulse Oximetry 92 93 92 Oxygen Delivery Method Nasal Cannula Nasal Cannula Oxygen Flow Rate 2 10/10/22 15:36 10/10/22 15:38 10/10/22 15:43 Temperature Pulse Rate 100 98 98 Pulse Rate [Pulse Oximeter] Respiratory Rate 27 H Blood Pressure 93/53 L 102/49 L Blood Pressure [Left Upper Arm] Pulse Oximetry 92 93 93 Oxygen Delivery Method Nasal Cannula Nasal Cannula Nasal Cannula Oxygen Flow Rate 2 2 2 10/10/22 15:45 10/10/22 15:51 10/10/22 16:00 Temperature Pulse Rate 97 97 94 Pulse Rate [Pulse Oximeter] Respiratory Rate 24 21 24 Blood Pressure 100/53 L Blood Pressure [Left Upper Arm] Pulse Oximetry 96 94 93 Oxygen Delivery Method Nasal Cannula Nasal Cannula Nasal Cannula Oxygen Flow Rate 2 2 2 10/10/22 16:01 10/10/22 16:11 10/10/22 16:15 Temperature Pulse Rate 94 101 H 100 Pulse Rate [Pulse Oximeter] Respiratory Rate 25 H 26 H 18 Blood Pressure 104/51 L 102/52 L Blood Pressure [Left Upper Arm] Pulse Oximetry 93 93 94 Oxygen Delivery Method Nasal Cannula Nasal Cannula Nasal Cannula Oxygen Flow Rate 2 2 2 Results Labs Labs: Laboratory Results - last 48 hr 10/10/22 15:49 WBC 7.55 RBC 3.23 L Hgb 8.7 L Hct 27.8 L MCV 86 MCH 27 MCHC 31 L RDW Coeff of Emily 14.4 Plt Count 188 Neut % (Auto) 77.7 H Lymph % (Auto) 15.8 L [place] % (Auto) 6.1 Eos % (Auto) 0.0 Baso % (Auto) 0.1 Neut # (Auto) 5.90 Lymph # (Auto) 1.20 [place] # (Auto) 0.50 Eos # (Auto) 0.00 Baso # (Auto) 0.01 Sodium 136 Potassium 3.9 Chloride 101 Carbon Dioxide 29 BUN 20 Creatinine 0.9 Estimated Creat Clear 45.16 Estimated GFR 70 Glucose 110 Calcium 8.4 Diagnostic results Additional Comments: Two views of the right humerus from [facility] dated 10/10/2022 were ordered by a different provider and reviewed by me. This shows no acute fractures, avulsions, or intraosseous pathology. No signs of AVN. Joints appear reduced. Two views right forearm from [facility] dated 10/10/2022 were ordered by a different provider and reviewed by me. These demonstrate a distal 1/3 radius and ulna diaphyseal fractures in an oblique pattern. Extra-articular. The fracture so significant radial translation, shortening, and slight radial angulation. The ulna appears to be out of the skin even radiographically. Mild comminution is noted around the radius fracture. The wrist is otherwise properly reduced/located. Assessment and Plan Assessment and plan (1) Fracture of forearm, right, open: Status: Acute (2) Obesity (BMI 30-39.9): Status: Acute Plan We had a good is discussion today regarding her findings and her current state with both the patient and her sister/legal guardian. I help him understand that with an open fracture, she has the significantly increased risk for infection in this area. It is prudent to take her to the operating room to debride the wound, removed /on healthy tissue &/or bone and stabilize the fracture. Again we discussed the risks, benefits, and alternatives. I help him understand the pros and cons of both nonoperative and operative intervention. I believe all questions were answered. We will plan to do the surgery momentarily. The operating room team has been called and care has been coordinated by me with the emergency room physician, anesthesia team, and surgical team. Depending on the end amount of debris within the wound, this may warrant a stay in hospital overnight for IV antibiotics. Alternatively, if the wound is relatively healthy, she may be able to discharge to home with outpatient follow-up. She has received tetanus, 2 g IV Ancef, and temporary support of the fracture in the emergency department. Thank you for allowing me to assist in Sarah's care.
--- NOTE | 2022-10-10 17:27 | CRLHL7_ITS ---
For Patients: As a result of the Cures Act, medical imaging exams and procedure reports are released immediately into your electronic medical record. You may view this report before your referring provider. If you have questions, please contact your health care provider. Indication: RIGHT FOREARM ORIF Technique: Three fluoroscopic images of the right forearm. Fluoroscopic time 5.1 seconds. IMPRESSION: Fluoroscopic guidance for open reduction internal fixation radial and ulnar diaphyseal fractures. Dictated by Keaton Montoya MD @ 10/11/2022 8:51:30 AM (Electronically Signed)
--- NOTE | 2022-10-10 18:19 | P.ANES_ITS ---
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
--- NOTE | 2022-10-10 18:44 | W.PM.NB ---
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 Images saved: Yes Medications given in 5ml increments after negative aspiration: Ropivicaine %: 0.5 mL: 20 Needle gauge: 21 Decadron (mg): 10 Precedex (mcg): 20 Patient tolerated procedure well: Yes Block Charges Block Charge (with Pro Fee): Axillary Nerve Use of Ultrasound Machine for Block: Yes- US Guidance/pain block
[2022-10-10] MEDS: LACTATED RINGERS 1000 ML 1,000 ML 125 ML IV (19:16)
--- NOTE | 2022-10-10 20:07 | PM.ORPRC ---
Procedure Note Date of procedure: 10/10/22 Procedure: PREOPERATIVE DIAGNOSES: 1. Right open distal 1/3 radius and ulna fracture in a skeletally mature individual 2. Right ulnar forearm 5 cm laceration, traumatic POSTOPERATIVE DIAGNOSES: 1. Right open distal 1/3 radius and ulna fracture in a skeletally mature individual 2. Right ulnar forearm 5 cm laceration, traumatic NAME OF OPERATION: 1. Right distal 1/3 radius and ulna open fracture open reduction with internal fixation. 2. Right forearm excisional debridement including skin, subcu tissue, fascia, and bone 3. Application negative pressure dressing, incisional wound VAC for both the radius and ulna incisions. 15 cm in length and 12 cm in length by 1 cm in width. Total sq cm was approximately 27 sq cm. 4. [id number] - intraoperative fluoroscopy up to 1 hour. SURGEON: Matthew Morse MD WINDING INSPECTOR AND TESTER: Hue Knight Pac - Of note, an studio assistant was critical for this case to aide in patient positioning, limb manipulation, tissue retraction, awareness of critical structures and protection accordingly, patient safety, closure, and splinting. ANESTHESIA: General endotracheal anesthetic plus axillary block IMPLANTS: [Synthes 6 hole and 7 hole reconstruction plate for the ulna and radius, respectively with 3.5 mm nonlocking and locking screws. TOURNIQUET: 100 minutes at 250 torr INDICATIONS: The patient is a pleasant 67-year-old female who sustained a fall from standing height after she slipped going down a steep slope today. This resulted in obvious deformity about the right forearm with her ulna bone protruding through the skin. She presented [facility]. X-rays confirmed the fracture and identified the open fracture. Orthopedics was promptly consulted. Given the open fracture, recommendation was made for excisional debridement of dirty tissue wound and irrigation of the wound as well as ORIF of the radius and ulna fractures. FINDINGS: Open 5 cm wound overlying the dorsal ulnar aspect of the distal 1/3 of the forearm consistent with the open ulna fracture. There was gross contamination including some ground dirt to the depth of the ulna itself. Both the radius and ulna distal 1/3 fractures were otherwise reducible. There was a small comminuted component to the radius fracture without significant soft tissue attachment that required excision. PROCEDURE: Following a thorough discussion of risks, benefits, and alternatives, consent was obtained and the operative extremity was marked. The patient was brought to the operating room and placed supine on the operating table. Induction of anesthesia was achieved. Appropriate time out was performed identifying proper patient, site and procedure. 2 g IV Ancef was administered in the emergency department approximately 1 hour prior to the surgical procedure. The right upper extremity was prepped and draped in the appropriate sterile fashion using Betadine prep given the open wound after an alcohol prep of the skin that was intact. The limb was exsanguinated and the tourniquet inflated. The open ulna laceration was further inspected and cleaned of gross debris. This including debridement of the bone with a rongeur and curette. Skin was excised as it was severely traumatized around the perimeter of the wound. Thorough irrigation normal saline was then performed followed by extension of the incision both proximally distally with further debridement and irrigation. After confirming the fracture we could be realigned, we made an incision to approach the radius fracture. The radius was approached via volar approach of Mario Alberto. Sharp incision through skin allowed identification of the lateral antebrachial cutaneous nerve which was retracted radially and protected. After releasing the brachioradialis from its ulnar fascial attachments, this was retracted radially and the radial artery was subsequent retracted ulnarly. The superficial branch of the radial nerve was also identified and protected radially. Deeper dissection allowed access to the pronator teres. The tendon was clearly intact, but the fracture was distal to the tendon itself on the distal end. We were able to maintain the tendon attachment but dissected just deep to it. Subperiosteal elevation of a so stated muscular attachments was performed. This ing bicortical fixation throughout given 6 cortices of fixation on either side. A 7 hole plate was selected and applied to the bone. Some traction and manipulation the fracture was required along with a reduction clamp. Nonlocking screws were placed initially proximally and distally followed by locking screws proximally distally with good security to the fracture. We then turned our attention to the fixation of the ulna. The previous dissection was re-evaluated in the bone was realigned again after confirming proper debridement and irrigation. The fracture was reduced and had excellent apposition of bone without comminution A 6 hole plate was selected, and screws were placed in a compression technique with fluoroscopic imaging followed by locking screws both proximally and distally. Fluoroscopic imaging confirmed screw length, position, and fracture reduction. The forearm was placed through range of motion of found to be stable including proximal and distal at the elbow and wrist, respectively. A 3 minute Betadine soak was then performed followed by again thorough irrigation with normal saline. The tourniquet was deflated, and all major bleeding points cauterized. The radial artery had excellent flow distally as could be palpated and visualized, and we proceeded with closure. Closure was performed with 3-0 nylon for skin closure. The fascia was left open given the significant soft tissue swelling from the trauma. In fact, it was felt that negative pressure dressing would be prudent both to help with skin reapproximation, relief of tension, improved oxygenation to the tissues, and minimization of bacteria. Thus, a negative pressure dressing was applied along the incision. Adaptic was 1st placed in the skin followed by the sponge. The 2 sponges from the 2 wounds were connected and suction was confirmed. A volar splint was applied, patient was awoken from anesthesia and transferred back in stable condition. Plan: 1. NWB operative extremity. 2. Elevate. 3. Finger ROM as tolerated. 4. Follow up in 5-7 days with removal of splint, repeat x-rays operative forearm-two views, and anticipation of bracing verses free range of motion, and possible OT 5. Percocet and/or Tylenol PRN for analgesia.
--- NOTE | 2022-10-10 21:36 | P.IMPN_ITS ---
Progress Note: A&P Assessment and plan (1) Fracture of forearm, right, open: Status: Acute Plan Assessment 1. s/p Right forearm; Right distal 1/3 radius and ulna open fracture open reduction with internal fixation. Right forearm excisional debridement including skin, subcu tissue, fascia, and bone; General endotracheal anesthetic plus axillary block 2. 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 hx of Diastolic CHF 4. Hx of asthma 5. Hx of COPD 6. Hx of KEVIN (on 3 liters supplemental oxygen follows with dr Mandel of sleep medicine) 7. Hx of adenocarcinoma of lung 8. Hx of schizophrenia 9. hx of Insomnia 10. Obesity Plan -pain control; diet; dvt ppx per surgery -decrease IVF given CHF hx -on 3 liters baseline for KEVIN -hold sedating drugs -hold metformin for now; SSI for tonight -resume psyche meds in AM once med rec complete -hold diuretics and antihypertensives for tonight -prn duoneb -pulm toilet Subjective Date Seen: 10/10/22 Interval history: POSTOPERATIVE DIAGNOSES:? 1.? Right open distal 1/3 radius and ulna fracture in a skeletally mature individual 2.? Right ulnar forearm 5 cm laceration, traumatic NAME OF OPERATION:? 1.? Right distal 1/3 radius and ulna open fracture open reduction with internal fixation. 2.? Right forearm excisional debridement including skin, subcu tissue, fascia, and bone ANESTHESIA:? General endotracheal anesthetic plus axillary block the patient is sedated following surgery oriented to location Hx of KEVIN on 3 liters of supplemental oxygen able to follow some commands ojeda placed for tonight awaiting med rec from [facility] Past Medical Hx Asthma J45.909 ? Chronic schizophrenia (HC) F20.9 ? KEVIN 03/13/2018 AHI-16 G47.33 ? 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 Psychophysiological insomnia F51.04 ? Controlled substance agreement signed Z79.899 ? Adenocarcinoma of lung (HC) C34.90 ? history of small bowel obstruction (HC) K56.609 ? Metabolic syndrome E88.81 ? Mild intermittent asthma J45.20 ? Nonrheumatic mitral valve insufficiency I34.0 ? Class 3 severe obesity in adult (HC) E66.01 ? Polyneuropathy due to type 2 diabetes mellitus (HC) E11.42 ? Symptomatic anemia D64.9 ? DUB (dysfunctional uterine bleeding) N93.8 ? Generalized muscle weakness M62.81 ? Vitamin D deficiency E55.9 ? Bilateral lower extremity edema R60.0 ? COVID-19 virus infection U07.1 ? DM2 (diabetes mellitus, type 2) (HC) E11.9 ? Normocytic anemia D64.9 ? Chronic obstructive pulmonary disease, unspecified COPD type (HC) J44.9 ? Acute diastolic heart failure (HC) I50.31 ? Cellulitis of left lower extremity L03.116 Exam Narrative: Exam Narrative: Gen: no acute distress; sedated HEENT: NCAT EOMI mmm Neck: Supple CV: RRR normal s1 s2 Lungs: CTAB Abd: Soft,nt, nd Neuro: sedated; able to follow some commands; oriented to person, place MSK: age appropriate muscle mass Skin; Warm, dry no rash on face Const: Vital Signs, click to edit/add: Vital Signs - 24 hr 10/10/22 15:32 10/10/22 15:35 10/10/22 15:35 Temperature 99.2 F Pulse Rate Pulse Rate [Pulse Oximeter] 96 Respiratory Rate 18 Blood Pressure Blood Pressure [Le ft Upper Arm] 101/58 L Pulse Oximetry 92 93 94 Oxygen Delivery Me thod Nasal Cannula Nasal Cannula Oxygen Flow Rate 2 10/10/22 15:35 10/10/22 15:36 10/10/22 15:38 Temperature Pulse Rate 98 100 98 Pulse Rate [Pulse Oximeter] Respiratory Rate Blood Pressure 101/58 L 93/53 L Blood Pressure [Le ft Upper Arm] Pulse Oximetry 92 92 93 Oxygen Delivery Me thod Nasal Cannula Nasal Cannula Nasal Cannula Oxygen Flow Rate 2 2 2 10/10/22 15:43 10/10/22 15:45 10/10/22 15:51 Temperature Pulse Rate 98 97 97 Pulse Rate [Pulse Oximeter] Respiratory Rate 27 H 24 21 Blood Pressure 102/49 L 100/53 L Blood Pressure [Le ft Upper Arm] Pulse Oximetry 93 96 94 Oxygen Delivery Me thod Nasal Cannula Nasal Cannula Nasal Cannula Oxygen Flow Rate 2 2 2 10/10/22 16:00 10/10/22 16:01 10/10/22 16:11 Temperature Pulse Rate 94 94 101 H Pulse Rate [Pulse Oximeter] Respiratory Rate 24 25 H 26 H Blood Pressure 104/51 L 102/52 L Blood Pressure [Le ft Upper Arm] Pulse Oximetry 93 93 93 Oxygen Delivery Me thod Nasal Cannula Nasal Cannula Nasal Cannula Oxygen Flow Rate 2 2 2 10/10/22 16:15 10/10/22 16:21 10/10/22 16:30 Temperature Pulse Rate 100 98 97 Pulse Rate [Pulse Oximeter] Respiratory Rate 18 24 21 Blood Pressure 104/52 L Blood Pressure [Le ft Upper Arm] Pulse Oximetry 94 93 93 Oxygen Delivery Me thod Nasal Cannula Nasal Cannula Nasal Cannula Oxygen Flow Rate 2 2 2 10/10/22 16:32 10/10/22 16:42 10/10/22 16:45 Temperature Pulse Rate 99 97 97 Pulse Rate [Pulse Oximeter] Respiratory Rate 21 23 12 Blood Pressure 106/51 L 110/60 Blood Pressure [Le ft Upper Arm] Pulse Oximetry 94 94 96 Oxygen Delivery Me thod Nasal Cannula Nasal Cannula Nasal Cannula Oxygen Flow Rate 2 2 2 10/10/22 16:51 10/10/22 17:00 10/10/22 17:01 Temperature Pulse Rate 99 97 99 Pulse Rate [Pulse Oximeter] Respiratory Rate 17 23 22 Blood Pressure 106/54 L 108/55 L Blood Pressure [Le ft Upper Arm] Pulse Oximetry 95 95 96 Oxygen Delivery Me thod Nasal Cannula Nasal Cannula Nasal Cannula Oxygen Flow Rate 2 2 2 10/10/22 17:02 10/10/22 20:15 10/10/22 20:20 Temperature Pulse Rate 99 86 88 Pulse Rate [Pulse Oximeter] Respiratory Rate 19 20 22 Blood Pressure 109/58 L 109/63 Blood Pressure [Le ft Upper Arm] Pulse Oximetry 95 95 92 Oxygen Delivery Me thod OxyMask OxyMask Oxygen Flow Rate 10 8 10/10/22 20:27 10/10/22 20:28 10/10/22 20:29 Temperature 99.2 F Pulse Rate 90 91 91 Pulse Rate [Pulse Oximeter] Respiratory Rate 20 19 19 Blood Pressure 111/63 114/67 Blood Pressure [Le ft Upper Arm] Pulse Oximetry 92 92 92 Oxygen Delivery Me thod OxyMask OxyMask OxyMask Oxygen Flow Rate 8 8 8 10/10/22 20:29 10/10/22 20:30 10/10/22 20:31 Temperature Pulse Rate 96 92 93 Pulse Rate [Pulse Oximeter] Respiratory Rate Blood Pressure 114/67 Blood Pressure [Le ft Upper Arm] Pulse Oximetry 92 92 95 Oxygen Delivery Me thod Oxygen Flow Rate 10/10/22 20:32 10/10/22 20:33 10/10/22 20:34 Temperature Pulse Rate 91 88 89 Pulse Rate [Pulse Oximeter] Respiratory Rate Blood Pressure Blood Pressure [Le ft Upper Arm] Pulse Oximetry 95 95 94 Oxygen Delivery Me thod Oxygen Flow Rate 10/10/22 20:35 10/10/22 20:36 10/10/22 20:37 Temperature Pulse Rate 89 88 92 Pulse Rate [Pulse Oximeter] Respiratory Rate Blood Pressure 108/66 Blood Pressure [Le ft Upper Arm] Pulse Oximetry 94 94 94 Oxygen Delivery Me thod Oxygen Flow Rate 10/10/22 20:38 10/10/22 20:39 10/10/22 20:40 Temperature Pulse Rate 86 89 90 Pulse Rate [Pulse Oximeter] Respiratory Rate Blood Pressure Blood Pressure [Le ft Upper Arm] Pulse Oximetry 93 94 94 Oxygen Delivery Me thod Oxygen Flow Rate 10/10/22 20:41 10/10/22 20:42 10/10/22 20:43 Temperature Pulse Rate 85 86 94 Pulse Rate [Pulse Oximeter] Respiratory Rate Blood Pressure 119/70 Blood Pressure [Le ft Upper Arm] Pulse Oximetry 94 93 93 Oxygen Delivery Me thod Oxygen Flow Rate 10/10/22 20:44 10/10/22 20:45 10/10/22 20:46 Temperature Pulse Rate 91 91 92 Pulse Rate [Pulse Oximeter] Respiratory Rate Blood Pressure 115/67 Blood Pressure [Le ft Upper Arm] Pulse Oximetry 90 92 92 Oxygen Delivery Me thod Oxygen Flow Rate 10/10/22 20:47 Temperature Pulse Rate 92 Pulse Rate [Pulse Oximeter] Respiratory Rate Blood Pressure Blood Pressure [Le ft Upper Arm] Pulse Oximetry 92 Oxygen Delivery Me thod Oxygen Flow Rate Labs Labs: Laboratory Results - last 24 hr 10/10/22 15:49 WBC 7.55 RBC 3.23 L Hgb 8.7 L Hct 27.8 L MCV 86 MCH 27 MCHC 31 L RDW Coeff of Emily 14.4 Plt Count 188 Neut % (Auto) 77.7 H Lymph % (Auto) 15.8 L [place] % (Auto) 6.1 Eos % (Auto) 0.0 Baso % (Auto) 0.1 Neut # (Auto) 5.90 Lymph # (Auto) 1.20 [place] # (Auto) 0.50 Eos # (Auto) 0.00 Baso # (Auto) 0.01 Sodium 136 Potassium 3.9 Chloride 101 Carbon Dioxide 29 BUN 20 Creatinine 0.9 Estimated Creat Clear 45.16 Estimated GFR 70 Glucose 110 Calcium 8.4
[2022-10-10] MEDS: CEFAZOLIN 2 GM in 0.9 % SODIUM CHLORIDE Mini-bag 100 ML IVPB (22:49)
[2022-10-10] MEDS: SENNOSIDES 1 TAB TABLET 2 TAB PO (23:30)
[2022-10-10] MEDS: ACETAMINOPHEN 325 MG TABLET 650 MG PO (23:30)
[2022-10-11] VITALS (10 sets, daily range): BP systolic 111–139; BP diastolic 52–84; PULSE 80–103; RESP 16–21; TEMP 36.4–37.2; O2SAT 91–97
[2022-10-11] MEDS: LACTATED RINGERS 1000 ML 1,000 ML 75 ML IV (02:46)
[2022-10-11] MEDS: OXYCODONE 5 MG TABLET PO ×2 (03:37→19:42)
[2022-10-11] MEDS: CEFAZOLIN 2 GM in 0.9 % SODIUM CHLORIDE Mini-bag 100 ML IVPB (06:00)
[2022-10-11 06:20] LABS: Hematocrit 27.9 % (33.0-51.0); Hemoglobin* 8.9 gm/dL (12.0-16.0); Immature Granulocytes Abs Auto 0.02 K/uL (0.00-0.30); Immature Granulocytes Pct Auto 0.3 %; Lymphocytes Percent Auto 6.8 % (20-44); Mean Corpuscular HGB Conc 32 gm/dL (32-36); Mean Corpuscular Hemoglobin 28 pg (26-34); Mean Corpuscular Volume 86 fL (80-100); Monocytes Percent Auto 2.7 % (0.0-11.0); Neutrophils Percent Auto 90.2 % (42.0-72.0); Platelet Count* 176 K/uL (140-440); Red Blood Count 3.24 m/uL (4.00-5.20); White Blood Count* 6.57 K/uL (4.50-11.00)
[2022-10-11 06:24] LABS: Slide Review Reflex No
--- NOTE | 2022-10-11 06:31 | PC.NURSE ---
ADMISSION/SHIFT NOTE: Pt back from the OR following sx. Very drowsy initially but woke up more as the night went on, A&O. Spot checked pt's blood sugar at 0200, 168. VSS on 3L O2. Pt is sore from her fall, PRN Tylenol and Oxycodone given with pt reporting good relief. Pt is not able to wiggle her fingers on her right side yet but can feel when gag writer is touching her fingers, fingers are warm to touch. Right arm is in a sling, wound vac to right FA is patent and draining small amounts of bloody drainage, active ice placed to right FA. Order received to place a Smallwood, Smallwood placed with initial amount of 650cc of clear yellow urine, pt tolerated well. Pt denies SOB, CP, and N/V. Repositioned in bed with a 2 assist, pt states she is normally up and walking at her [place] [facility] with a cane. Pt's sister was present after surgery, supportive.
[2022-10-11 06:45] LABS: Chloride* 103 mmol/L (96-114); Sodium* 135 mmol/L (135-149)
[2022-10-11 06:46] LABS: Potassium* 4.1 mmol/L (3.6-5.1)
[2022-10-11 06:48] LABS: Creatinine* 0.6 mg/dL (0.5-1.5); Est. Creatinine Clearance* 45.16; Estimated Glomerular Filt Rate 98 ml/min
[2022-10-11 06:49] LABS: Blood Urea Nitrogen* 16 mg/dL (7-30); Calcium* 8.6 mg/dL (8.4-10.6); Carbon Dioxide* 29 mmol/L (20-32); Glucose* 152 mg/dL (60-115)
--- NOTE | 2022-10-11 09:11 | PM.ORPN ---
Subjective Subjective Time Seen by Provider: 07:50 Date Seen: 10/11/22 Principal diagnosis: Day 1 s/p right distal 1/3 radius and ulna open fracture ORIF Interval history: HISTORY: Sarah is doing okay this morning. She is resting comfortably in bed. Pain is well controlled. Complains of right forearm achiness and swelling within right digits. Admits to numbness in her right hand - related to her nerve block. Pain is well managed with current scheduled and PRN oral pain medications and ice. Active ice is being utilized. No acute events over night. During our conversation, Sarah seemed confused. She did not understand the concept of elevation of this extremity above her heart, which I demonstrated during this visit. Past Medical Hx Asthma J45.909 ? Chronic schizophrenia (HC) F20.9 ? KEVIN 03/13/2018 AHI-16 G47.33 ? 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 Psychophysiological insomnia F51.04 ? Controlled substance agreement signed Z79.899 ? Adenocarcinoma of lung (HC) C34.90 ? history of small bowel obstruction (HC) K56.609 ? Metabolic syndrome E88.81 ? Mild intermittent asthma J45.20 ? Nonrheumatic mitral valve insufficiency I34.0 ? Class 3 severe obesity in adult () E66.01 ? Polyneuropathy due to type 2 diabetes mellitus (HC) E11.42 ? Symptomatic anemia D64.9 ? DUB (dysfunctional uterine bleeding) N93.8 ? Generalized muscle weakness M62.81 ? Vitamin D deficiency E55.9 ? Bilateral lower extremity edema R60.0 ? COVID-19 virus infection U07.1 ? DM2 (diabetes mellitus, type 2) (HC) E11.9 ? Normocytic anemia D64.9 ? Chronic obstructive pulmonary disease, unspecified COPD type (HC) J44.9 ? Acute diastolic heart failure (HC) I50.31 ? Cellulitis of left lower extremity L03.116 Ortho Exam Narrative Exam Narrative: Right forearm exam: Soft dressing remains clean and dry. Wound vac remains well sealed and is working appropriately. Volar splint remains well placed. Ice is being utilized as needed. Moderate swelling right digits. Warmth appropriate. Able to wiggle digits. Elbow range of motion 0-120 degrees. CMS: Intact distally with 2+ Ulnar and Brachial pulse. [employer] and warm digits, brisk capillary refill. Unable to assess radial pulse due to volar plaster splint covering this area. Constitutional: Patient is alert and oriented x3. Patient is in no acute distress and converses without labored breathing. Patient seems somewhat confused during our conversation. Other: Patient is utilizing Active Ice over her right forearm and utilizing the sling during this visit. Const Vital Signs, click to edit/add: Vital Signs - 24 hr 10/10/22 15:32 10/10/22 15:35 10/10/22 15:35 Temperature 99.2 F Pulse Rate Pulse Rate [Pulse Oximeter] 96 Pulse Rate [Radial] Respiratory Rate 18 Blood Pressure Blood Pressure [Left Arm] Blood Pressure [Left Upper Arm] 101/58 L Pulse Oximetry 92 93 94 Oxygen Delivery Method Nasal Cannula Nasal Cannula Oxygen Flow Rate 2 10/10/22 15:35 10/10/22 15:36 10/10/22 15:38 Temperature Pulse Rate 98 100 98 Pulse Rate [Pulse Oximeter] Pulse Rate [Radial] Respiratory Rate Blood Pressure 101/58 L 93/53 L Blood Pressure [Left Arm] Blood Pressure [Left Upper Arm] Pulse Oximetry 92 92 93 Oxygen Delivery Method Nasal Cannula Nasal Cannula Nasal Cannula Oxygen Flow Rate 2 2 2 10/10/22 15:43 10/10/22 15:45 10/10/22 15:51 Temperature Pulse Rate 98 97 97 Pulse Rate [Pulse Oximeter] Pulse Rate [Radial] Respiratory Rate 27 H 24 21 Blood Pressure 102/49 L 100/53 L Blood Pressure [Left Arm] Blood Pressure [Left Upper Arm] Pulse Oximetry 93 96 94 Oxygen Delivery Method Nasal Cannula Nasal Cannula Nasal Cannula Oxygen Flow Rate 2 2 2 10/10/22 16:00 10/10/22 16:01 10/10/22 16:11 Temperature Pulse Rate 94 94 101 H Pulse Rate [Pulse Oximeter] Pulse Rate [Radial] Respiratory Rate 24 25 H 26 H Blood Pressure 104/51 L 102/52 L Blood Pressure [Left Arm] Blood Pressure [Left Upper Arm] Pulse Oximetry 93 93 93 Oxygen Delivery Method Nasal Cannula Nasal Cannula Nasal Cannula Oxygen Flow Rate 2 2 2 10/10/22 16:15 10/10/22 16:21 10/10/22 16:30 Temperature Pulse Rate 100 98 97 Pulse Rate [Pulse Oximeter] Pulse Rate [Radial] Respiratory Rate 18 24 21 Blood Pressure 104/52 L Blood Pressure [Left Arm] Blood Pressure [Left Upper Arm] Pulse Oximetry 94 93 93 Oxygen Delivery Method Nasal Cannula Nasal Cannula Nasal Cannula Oxygen Flow Rate 2 2 2 10/10/22 16:32 10/10/22 16:42 10/10/22 16:45 Temperature Pulse Rate 99 97 97 Pulse Rate [Pulse Oximeter] Pulse Rate [Radial] Respiratory Rate 21 23 12 Blood Pressure 106/51 L 110/60 Blood Pressure [Left Arm] Blood Pressure [Left Upper Arm] Pulse Oximetry 94 94 96 Oxygen Delivery Method Nasal Cannula Nasal Cannula Nasal Cannula Oxygen Flow Rate 2 2 2 10/10/22 16:51 10/10/22 17:00 10/10/22 17:01 Temperature Pulse Rate 99 97 99 Pulse Rate [Pulse Oximeter] Pulse Rate [Radial] Respiratory Rate 17 23 22 Blood Pressure 106/54 L 108/55 L Blood Pressure [Left Arm] Blood Pressure [Left Upper Arm] Pulse Oximetry 95 95 96 Oxygen Delivery Method Nasal Cannula Nasal Cannula Nasal Cannula Oxygen Flow Rate 2 2 2 10/10/22 17:02 10/10/22 20:15 10/10/22 20:20 Temperature Pulse Rate 99 86 88 Pulse Rate [Pulse Oximeter] Pulse Rate [Radial] Respiratory Rate 19 20 22 Blood Pressure 109/58 L 109/63 Blood Pressure [Left Arm] Blood Pressure [Left Upper Arm] Pulse Oximetry 95 95 92 Oxygen Delivery Method OxyMask OxyMask Oxygen Flow Rate 10 8 10/10/22 20:27 10/10/22 20:28 10/10/22 20:29 Temperature 99.2 F Pulse Rate 90 91 91 Pulse Rate [Pulse Oximeter] Pulse Rate [Radial] Respiratory Rate 20 19 19 Blood Pressure 111/63 114/67 Blood Pressure [Left Arm] Blood Pressure [Left Upper Arm] Pulse Oximetry 92 92 92 Oxygen Delivery Method OxyMask OxyMask OxyMask Oxygen Flow Rate 8 8 8 10/10/22 20:29 10/10/22 20:30 10/10/22 20:31 Temperature Pulse Rate 96 92 93 Pulse Rate [Pulse Oximeter] Pulse Rate [Radial] Respiratory Rate Blood Pressure 114/67 Blood Pressure [Left Arm] Blood Pressure [Left Upper Arm] Pulse Oximetry 92 92 95 Oxygen Delivery Method Oxygen Flow Rate 10/10/22 20:32 10/10/22 20:33 10/10/22 20:34 Temperature Pulse Rate 91 88 89 Pulse Rate [Pulse Oximeter] Pulse Rate [Radial] Respiratory Rate Blood Pressure Blood Pressure [Left Arm] Blood Pressure [Left Upper Arm] Pulse Oximetry 95 95 94 Oxygen Delivery Method Oxygen Flow Rate 10/10/22 20:35 10/10/22 20:36 10/10/22 20:37 Temperature Pulse Rate 89 88 92 Pulse Rate [Pulse Oximeter] Pulse Rate [Radial] Respiratory Rate Blood Pressure 108/66 Blood Pressure [Left Arm] Blood Pressure [Left Upper Arm] Pulse Oximetry 94 94 94 Oxygen Delivery Method Oxygen Flow Rate 10/10/22 20:38 10/10/22 20:39 10/10/22 20:40 Temperature Pulse Rate 86 89 90 Pulse Rate [Pulse Oximeter] Pulse Rate [Radial] Respiratory Rate Blood Pressure Blood Pressure [Left Arm] Blood Pressure [Left Upper Arm] Pulse Oximetry 93 94 94 Oxygen Delivery Method Oxygen Flow Rate 10/10/22 20:41 10/10/22 20:42 10/10/22 20:43 Temperature Pulse Rate 85 86 94 Pulse Rate [Pulse Oximeter] Pulse Rate [Radial] Respiratory Rate Blood Pressure 119/70 Blood Pressure [Left Arm] Blood Pressure [Left Upper Arm] Pulse Oximetry 94 93 93 Oxygen Delivery Method Oxygen Flow Rate 10/10/22 20:44 10/10/22 20:45 10/10/22 20:46 Temperature Pulse Rate 91 91 92 Pulse Rate [Pulse Oximeter] Pulse Rate [Radial] Respiratory Rate Blood Pressure 115/67 Blood Pressure [Left Arm] Blood Pressure [Left Upper Arm] Pulse Oximetry 90 92 92 Oxygen Delivery Method Oxygen Flow Rate 10/10/22 20:47 10/10/22 20:57 10/10/22 21:00 Temperature 96.8 F L 97.5 F L Pulse Rate 92 92 Pulse Rate [Pulse Oximeter] Pulse Rate [Radial] 90 Respiratory Rate 18 18 Blood Pressure Blood Pressure [Left Arm] 131/83 118/68 Blood Pressure [Left Upper Arm] Pulse Oximetry 92 96 Oxygen Delivery Method OxyMask OxyMask Oxygen Flow Rate 8 3 10/10/22 21:00 10/10/22 21:15 10/10/22 21:30 Temperature 96.9 F L 96.9 F L 97 F L Pulse Rate Pulse Rate [Pulse Oximeter] Pulse Rate [Radial] 91 92 80 Respiratory Rate 18 20 18 Blood Pressure Blood Pressure [Left Arm] 135/83 129/78 118/69 Blood Pressure [Left Upper Arm] Pulse Oximetry 92 94 94 Oxygen Delivery Method OxyMask OxyMask OxyMask Oxygen Flow Rate 3 3 3 10/10/22 22:00 10/10/22 22:30 10/10/22 23:00 Temperature 97 F L 97.1 F L 97.4 F L Pulse Rate Pulse Rate [Pulse Oximeter] Pulse Rate [Radial] 80 102 H 77 Respiratory Rate 20 22 18 Blood Pressure Blood Pressure [Left Arm] 121/64 133/72 123/89 Blood Pressure [Left Upper Arm] Pulse Oximetry 95 94 94 Oxygen Delivery Method OxyMask OxyMask OxyMask Oxygen Flow Rate 3 3 3 10/10/22 23:30 10/11/22 00:00 10/11/22 00:30 Temperature 97.5 F L 97.5 F L 97.5 F L Pulse Rate Pulse Rate [Pulse Oximeter] Pulse Rate [Radial] 81 92 80 Respiratory Rate 18 20 18 Blood Pressure Blood Pressure [Left Arm] 117/71 126/72 118/68 Blood Pressure [Left Upper Arm] Pulse Oximetry 93 94 94 Oxygen Delivery Method OxyMask OxyMask OxyMask Oxygen Flow Rate 3 3 3 10/11/22 01:00 10/11/22 02:00 10/11/22 03:00 Temperature 97.6 F 97.5 F L 97.7 F Pulse Rate Pulse Rate [Pulse Oximeter] Pulse Rate [Radial] 82 88 82 Respiratory Rate 20 18 18 Blood Pressure Blood Pressure [Left Arm] 132/80 121/73 139/84 Blood Pressure [Left Upper Arm] Pulse Oximetry 93 93 92 Oxygen Delivery Method OxyMask OxyMask OxyMask Oxygen Flow Rate 3 3 3 10/11/22 07:15 Temperature 97.9 F Pulse Rate Pulse Rate [Pulse Oximeter] Pulse Rate [Radial] 91 Respiratory Rate 18 Blood Pressure Blood Pressure [Left Arm] 118/72 Blood Pressure [Left Upper Arm] Pulse Oximetry 93 Oxygen Delivery Method OxyMask Oxygen Flow Rate 3 Documenting provider has reviewed patient's vital signs: yes Assessment and Plan Assessment and plan (1) Fracture of forearm, right, open: Problem details: Day 1 s/p right distal 1/3 radius and ulna open fracture ORIF Status: Acute Assessment and Plan: - No lifting operative extremity. - Patient has significant amount of right upper extremity swelling. Recommend elevation above the heart and massaging edema proximally. - Finger range of motion as tolerated. - Wound vac will remain at 125 mmHg. I anticipate minimal drainage will be present due to tight wound closure with Nylon sutures. - For pain management, recommend Tylenol and/or Percocet PRN in addition to frequent icing. - Sling use daily. - Patient will follow-up in 5-7 days with Kirstin David PA-C, repeat 2-view right forearm images. Anticipate bracing versus free range of motion and will discuss OT referral. - Patient will likely require SNF upon discharge. - Phone Orthopedics with any questions or concerns.
[2022-10-11] MEDS: SENNOSIDES 1 TAB TABLET 2 TAB PO ×2 (09:22→20:29)
[2022-10-11 11:27] LABS: HCO3 VBG 27 mmol/L (21-28); Lactate* 2.2 mmol/L (0.5-1.9); PCO2 VBG 43 mmHG (40-50); PO2 VBG 49.4 mmHG (25-47); pH VBG 7.407 (7.32-7.43)
[2022-10-11 11:44] LABS: Hemoglobin A1C* 5.76 % (0-5.6)
[2022-10-11 12:03] LABS: NT Pro B Type NatriureticPept* 727 pg/mL; Troponin I* < 0.01 ng/mL (0.01-0.04)
[2022-10-11] MEDS: OMEPRAZOLE 20 MG CAPSULE DR 40 MG PO (14:06)
[2022-10-11] MEDS: DOCUSATE SODIUM 100 MG CAPSULE PO (14:06)
[2022-10-11] MEDS: FUROSEMIDE 40 MG TABLET PO ×2 (14:06→17:54)
[2022-10-11] MEDS: CITALOPRAM HYDROBROMIDE 20 MG TABLET PO (14:07)
[2022-10-11] MEDS: ARIPiprazole 10 MG TABLET PO ×2 (14:07→20:28)
[2022-10-11] MEDS: lisinopriL 5 MG TABLET 2.5 MG PO (14:07)
[2022-10-11] MEDS: 0.9 % SODIUM CHLORIDE 500 ML 500 ML IV (14:08)
--- NOTE | 2022-10-11 14:28 | PC.NURSE ---
Pt alert and oriented. Pt calm and cooperative. Pt?s right arm has a wound vac attached, is wrapped in job wrap and in sling. Pt had no complaints of pain during shift. Pt?s left arm has bruises and is sore from fall. Pt up with one assist, gait belt and anthony walker. Pt up in chair during shift tolerated well. Around 1300 Pt called nurse and stated, ?I am starting to hear voices.? [facility] informed Hospitalist immediately and at home medications ordered. ? ?
--- NOTE | 2022-10-11 14:39 | P.IMPN_ITS ---
Progress Note: A&P Assessment and plan (1) Fracture of forearm, right, open: Problem details: POST OP Day1 s/p right distal 1/3 radius and ulna open fracture ORIF -will need SNF placement -woundvac complicating placement -manage other comorbidities Status: Acute (2) Schizophrenia: Problem details: -longstanding. Resident of [facility]. Clozapine, Abilify both p.o. and IM, Celexa, Ativan, trazodone, Ambien Status: Acute (3) Type 2 diabetes mellitus: Problem details: -SSI, accuchecks -hold metformin until post op and eating -A1c less than 6 Status: Acute (4) Diastolic heart failure: Problem details: continue current med plan 07/30/22 ECHO Final Impressions: 1. Normal LV size, severely increased wall thickness in a predominately concentric pattern, normal global and regional systolic function with an estimated EF of 65 - 70%. 2. The aortic valve is trileaflet and sclerotic, mild stenosis and no regurgitation. The aortic valve peak velocity is 2.1 m/s, the peak gradient is 17 mmHg, and the mean gradient is 9 mmHg. The aortic valve area is 2.08 cm?? with a dimensionless index of 0.62. The stroke volume index is 42.6 ml/m??. 3. The mitral valve is sclerotic, mild mitral regurgitation. Mitral stenosis with mildly increased mean gradient of 3.0 mmHg at a heart rate of 60. 4. Mildly increased estimated pulmonary pressures by tricuspid regurgitation velocity and right atrial pressure (21 mmHg plus RAP which is 15-20 mm Hg based on IVC geometry). Status: Acute (5) Asthma: Problem details: continue current med plan Status: Acute (6) Insomnia: Problem details: continue current med plan Status: Acute Subjective Date Seen: 10/11/22 Interval history: Daily Progress Note - Hospital Medicine Day #: 2 CC: fall with compound fracture - right forearm POST OP DAY 1 NAME OF OPERATION:? 1.? Right distal 1/3 radius and ulna open fracture open reduction with internal fixation. 2.? Right forearm excisional debridement including skin, subcu tissue, fascia, and bone 3.? Application negative pressure dressing, incisional wound VAC for both the radius and ulna incisions.? 15 cm in length and 12 cm in length by 1 cm in width.? Total sq cm was approximately 27 sq cm OVERNIGHT UPDATES FROM STAFF & MED, LAB, IMAGING UPDATES stable night. pt reports hearing voices by noon. routine psychiatric meds from her outpatient regimen were recently reconciled but had yet to be ordered. This was last promptly with her concerns. Pain is well managed. Hemoglobin has depressed from baseline of 11.7 down to 8.7 and 8.9 postop. Platelets are normal. White blood cell count is normal. PH is normal. Lactate remains elevated at 2.2. A1c 5.76 Glucose 152 Normal electrolytes and renal function BNP 727. Undetectable troponin. Objective: Vitals: Normal. Blood pressure 111/67. Pulse 95. Temp 98.5? see above Lungs: Clear. Cardiac: S1S2. Disposition/Potential discharge - Likely to return to previous living situation. Total time is 35 minutes with greater than 50% spent in counseling and coordination of care. Exam Const: Vital Signs, click to edit/add: Vital Signs - 24 hr 10/10/22 15:32 10/10/22 15:35 10/10/22 15:35 Temperature 99.2 F Pulse Rate Pulse Rate [Pulse Oximeter] 96 Pulse Rate [Radial ] Respiratory Rate 18 Blood Pressure Blood Pressure [Le ft Arm] Blood Pressure [Le ft Upper Arm] 101/58 L Pulse Oximetry 92 93 94 Oxygen Delivery Me thod Nasal Cannula Nasal Cannula Oxygen Flow Rate 2 10/10/22 15:35 10/10/22 15:36 10/10/22 15:38 Temperature Pulse Rate 98 100 98 Pulse Rate [Pulse Oximeter] Pulse Rate [Radial ] Respiratory Rate Blood Pressure 101/58 L 93/53 L Blood Pressure [Le ft Arm] Blood Pressure [Le ft Upper Arm] Pulse Oximetry 92 92 93 Oxygen Delivery Me thod Nasal Cannula Nasal Cannula Nasal Cannula Oxygen Flow Rate 2 2 2 10/10/22 15:43 10/10/22 15:45 10/10/22 15:51 Temperature Pulse Rate 98 97 97 Pulse Rate [Pulse Oximeter] Pulse Rate [Radial ] Respiratory Rate 27 H 24 21 Blood Pressure 102/49 L 100/53 L Blood Pressure [Le ft Arm] Blood Pressure [Le ft Upper Arm] Pulse Oximetry 93 96 94 Oxygen Delivery Me thod Nasal Cannula Nasal Cannula Nasal Cannula Oxygen Flow Rate 2 2 2 10/10/22 16:00 10/10/22 16:01 10/10/22 16:11 Temperature Pulse Rate 94 94 101 H Pulse Rate [Pulse Oximeter] Pulse Rate [Radial ] Respiratory Rate 24 25 H 26 H Blood Pressure 104/51 L 102/52 L Blood Pressure [Le ft Arm] Blood Pressure [Le ft Upper Arm] Pulse Oximetry 93 93 93 Oxygen Delivery Me thod Nasal Cannula Nasal Cannula Nasal Cannula Oxygen Flow Rate 2 2 2 10/10/22 16:15 10/10/22 16:21 10/10/22 16:30 Temperature Pulse Rate 100 98 97 Pulse Rate [Pulse Oximeter] Pulse Rate [Radial ] Respiratory Rate 18 24 21 Blood Pressure 104/52 L Blood Pressure [Le ft Arm] Blood Pressure [Le ft Upper Arm] Pulse Oximetry 94 93 93 Oxygen Delivery Me thod Nasal Cannula Nasal Cannula Nasal Cannula Oxygen Flow Rate 2 2 2 10/10/22 16:32 10/10/22 16:42 10/10/22 16:45 Temperature Pulse Rate 99 97 97 Pulse Rate [Pulse Oximeter] Pulse Rate [Radial ] Respiratory Rate 21 23 12 Blood Pressure 106/51 L 110/60 Blood Pressure [Le ft Arm] Blood Pressure [Le ft Upper Arm] Pulse Oximetry 94 94 96 Oxygen Delivery Me thod Nasal Cannula Nasal Cannula Nasal Cannula Oxygen Flow Rate 2 2 2 10/10/22 16:51 10/10/22 17:00 10/10/22 17:01 Temperature Pulse Rate 99 97 99 Pulse Rate [Pulse Oximeter] Pulse Rate [Radial ] Respiratory Rate 17 23 22 Blood Pressure 106/54 L 108/55 L Blood Pressure [Le ft Arm] Blood Pressure [Le ft Upper Arm] Pulse Oximetry 95 95 96 Oxygen Delivery Me thod Nasal Cannula Nasal Cannula Nasal Cannula Oxygen Flow Rate 2 2 2 10/10/22 17:02 10/10/22 20:15 10/10/22 20:20 Temperature Pulse Rate 99 86 88 Pulse Rate [Pulse Oximeter] Pulse Rate [Radial ] Respiratory Rate 19 20 22 Blood Pressure 109/58 L 109/63 Blood Pressure [Le ft Arm] Blood Pressure [Le ft Upper Arm] Pulse Oximetry 95 95 92 Oxygen Delivery Me thod OxyMask OxyMask Oxygen Flow Rate 10 8 10/10/22 20:27 10/10/22 20:28 10/10/22 20:29 Temperature 99.2 F Pulse Rate 90 91 91 Pulse Rate [Pulse Oximeter] Pulse Rate [Radial ] Respiratory Rate 20 19 19 Blood Pressure 111/63 114/67 Blood Pressure [Le ft Arm] Blood Pressure [Le ft Upper Arm] Pulse Oximetry 92 92 92 Oxygen Delivery Me thod OxyMask OxyMask OxyMask Oxygen Flow Rate 8 8 8 10/10/22 20:29 10/10/22 20:30 10/10/22 20:31 Temperature Pulse Rate 96 92 93 Pulse Rate [Pulse Oximeter] Pulse Rate [Radial ] Respiratory Rate Blood Pressure 114/67 Blood Pressure [Le ft Arm] Blood Pressure [Le ft Upper Arm] Pulse Oximetry 92 92 95 Oxygen Delivery Me thod Oxygen Flow Rate 10/10/22 20:32 10/10/22 20:33 10/10/22 20:34 Temperature Pulse Rate 91 88 89 Pulse Rate [Pulse Oximeter] Pulse Rate [Radial ] Respiratory Rate Blood Pressure Blood Pressure [Le ft Arm] Blood Pressure [Le ft Upper Arm] Pulse Oximetry 95 95 94 Oxygen Delivery Me thod Oxygen Flow Rate 10/10/22 20:35 10/10/22 20:36 10/10/22 20:37 Temperature Pulse Rate 89 88 92 Pulse Rate [Pulse Oximeter] Pulse Rate [Radial ] Respiratory Rate Blood Pressure 108/66 Blood Pressure [Le ft Arm] Blood Pressure [Le ft Upper Arm] Pulse Oximetry 94 94 94 Oxygen Delivery Me thod Oxygen Flow Rate 10/10/22 20:38 10/10/22 20:39 10/10/22 20:40 Temperature Pulse Rate 86 89 90 Pulse Rate [Pulse Oximeter] Pulse Rate [Radial ] Respiratory Rate Blood Pressure Blood Pressure [Le ft Arm] Blood Pressure [Le ft Upper Arm] Pulse Oximetry 93 94 94 Oxygen Delivery Me thod Oxygen Flow Rate 10/10/22 20:41 10/10/22 20:42 10/10/22 20:43 Temperature Pulse Rate 85 86 94 Pulse Rate [Pulse Oximeter] Pulse Rate [Radial ] Respiratory Rate Blood Pressure 119/70 Blood Pressure [Le ft Arm] Blood Pressure [Le ft Upper Arm] Pulse Oximetry 94 93 93 Oxygen Delivery Me thod Oxygen Flow Rate 10/10/22 20:44 10/10/22 20:45 10/10/22 20:46 Temperature Pulse Rate 91 91 92 Pulse Rate [Pulse Oximeter] Pulse Rate [Radial ] Respiratory Rate Blood Pressure 115/67 Blood Pressure [Le ft Arm] Blood Pressure [Le ft Upper Arm] Pulse Oximetry 90 92 92 Oxygen Delivery Me thod Oxygen Flow Rate 10/10/22 20:47 10/10/22 20:57 10/10/22 21:00 Temperature 96.8 F L 97.5 F L Pulse Rate 92 92 Pulse Rate [Pulse Oximeter] Pulse Rate [Radial ] 90 Respiratory Rate 18 18 Blood Pressure Blood Pressure [Le ft Arm] 131/83 118/68 Blood Pressure [Le ft Upper Arm] Pulse Oximetry 92 96 Oxygen Delivery Me thod OxyMask OxyMask Oxygen Flow Rate 8 3 10/10/22 21:00 10/10/22 21:15 10/10/22 21:30 Temperature 96.9 F L 96.9 F L 97 F L Pulse Rate Pulse Rate [Pulse Oximeter] Pulse Rate [Radial ] 91 92 80 Respiratory Rate 18 20 18 Blood Pressure Blood Pressure [Le ft Arm] 135/83 129/78 118/69 Blood Pressure [Le ft Upper Arm] Pulse Oximetry 92 94 94 Oxygen Delivery Me thod OxyMask OxyMask OxyMask Oxygen Flow Rate 3 3 3 10/10/22 22:00 10/10/22 22:30 10/10/22 23:00 Temperature 97 F L 97.1 F L 97.4 F L Pulse Rate Pulse Rate [Pulse Oximeter] Pulse Rate [Radial ] 80 102 H 77 Respiratory Rate 20 22 18 Blood Pressure Blood Pressure [Le ft Arm] 121/64 133/72 123/89 Blood Pressure [Le ft Upper Arm] Pulse Oximetry 95 94 94 Oxygen Delivery Me thod OxyMask OxyMask OxyMask Oxygen Flow Rate 3 3 3 10/10/22 23:30 10/11/22 00:00 10/11/22 00:30 Temperature 97.5 F L 97.5 F L 97.5 F L Pulse Rate Pulse Rate [Pulse Oximeter] Pulse Rate [Radial ] 81 92 80 Respiratory Rate 18 20 18 Blood Pressure Blood Pressure [Le ft Arm] 117/71 126/72 118/68 Blood Pressure [Le ft Upper Arm] Pulse Oximetry 93 94 94 Oxygen Delivery Me thod OxyMask OxyMask OxyMask Oxygen Flow Rate 3 3 3 10/11/22 01:00 10/11/22 02:00 10/11/22 03:00 Temperature 97.6 F 97.5 F L 97.7 F Pulse Rate Pulse Rate [Pulse Oximeter] Pulse Rate [Radial ] 82 88 82 Respiratory Rate 20 18 18 Blood Pressure Blood Pressure [Le ft Arm] 132/80 121/73 139/84 Blood Pressure [Le ft Upper Arm] Pulse Oximetry 93 93 92 Oxygen Delivery Me thod OxyMask OxyMask OxyMask Oxygen Flow Rate 3 3 3 10/11/22 07:15 10/11/22 10:47 Temperature 97.9 F 98.5 F Pulse Rate Pulse Rate [Pulse Oximeter] Pulse Rate [Radial ] 91 95 Respiratory Rate 18 18 Blood Pressure Blood Pressure [Le ft Arm] 118/72 111/67 Blood Pressure [Le ft Upper Arm] Pulse Oximetry 93 97 Oxygen Delivery Me thod OxyMask Nasal Cannula Oxygen Flow Rate 3 3 Labs Labs: Laboratory Results - last 24 hr 10/10/22 10/11/22 10/11/22 15:49 06:01 11:09 WBC 7.55 6.57 RBC 3.23 L 3.24 L Hgb 8.7 L 8.9 L Hct 27.8 L 27.9 L MCV 86 86 MCH 27 28 MCHC 31 L 32 RDW Coeff of Emily 14.4 14.0 Plt Count 188 176 Neut % (Auto) 77.7 H 90.2 H Lymph % (Auto) 15.8 L 6.8 L [place] % (Auto) 6.1 2.7 Eos % (Auto) 0.0 0.0 Baso % (Auto) 0.1 0.0 Neut # (Auto) 5.90 5.90 Lymph # (Auto) 1.20 0.40 L [place] # (Auto) 0.50 0.20 Eos # (Auto) 0.00 0.00 Baso # (Auto) 0.01 0.00 VBG pH VBG pCO2 VBG pO2 VBG HCO3 Sodium 136 135 Potassium 3.9 4.1 Chloride 101 103 Carbon Dioxide 29 29 BUN 20 16 Creatinine 0.9 0.6 Estimated Creat Clear 45.16 45.16 Estimated GFR 70 98 Glucose 110 152 H Hemoglobin A1c 5.76 H Lactate Calcium 8.4 8.6 Troponin I NT-Pro-B Natriuret Pep Lab Acknowledgement Test Added 10/11/22 11:21 WBC RBC Hgb Hct MCV MCH MCHC RDW Coeff of Emily Plt Count Neut % (Auto) Lymph % (Auto) [place] % (Auto) Eos % (Auto) Baso % (Auto) Neut # (Auto) Lymph # (Auto) [place] # (Auto) Eos # (Auto) Baso # (Auto) VBG pH 7.407 VBG pCO2 43 VBG pO2 49.4 H VBG HCO3 27 Sodium Potassium Chloride Carbon Dioxide BUN Creatinine Estimated Creat Clear Estimated GFR Glucose Hemoglobin A1c Lactate 2.2 H Calcium Troponin I < 0.01 L NT-Pro-B Natriuret Pep 727 Lab Acknowledgement
[2022-10-11] MEDS: ALBUTEROL INHALER 2 PUFF IH ×2 (17:54→20:25)
[2022-10-11] MEDS: BUDESONIDE 0.5 MG/2ML NEB NEB (20:27)
[2022-10-11] MEDS: ATORVASTATIN 10 MG TABLET 20 MG PO (20:29)
--- NOTE | 2022-10-11 21:06 | PC.NURSE ---
Nursing Care Hours: [id number] Pt this shift calm and cooperative with cares. Alert and oriented to self and situation. When asked where pt was, pt said [facility]. Denies pain. Attempting to move R arm, encouraged to let arm rest and use L arm. L arm has large bruise. CMS intact. R side tip of tongue has gash, no bleeding. [place] patent. Pt assisted with dinner. SL. VSS. Admits to hearing voices, denies any violent and threatening commands.
[2022-10-11] MEDS: ZOLPIDEM 5 MG TABLET PO (21:24)
[2022-10-11] MEDS: TRAZODONE HCL 50 MG TABLET PO (21:24)
[2022-10-11] MEDS: LORazepam 0.5 MG TABLET PO (21:24)
[2022-10-11] MEDS: SODIUM CHLORIDE 0.9 % (FLUSH) 10 ML SYRINGE 5 ML IVF (21:27)
--- NOTE | 2022-10-11 22:42 | PC.NURSE ---
Shift [id number]- Patient is up to chair and moved back to bed. Right arm remains wrapped (clean, dry and intact) with sling and wound vacuum is patent. She states pain to left arm, which is somewhat swollen. Both arms are propped onto pillows. PRN pain medication administered with relief. Right hand with good squeeze, warm, pink, dry and she sometimes tends to want to use this arm to help perform tasks.
[2022-10-12] VITALS (7 sets, daily range): BP systolic 105–126; BP diastolic 55–63; PULSE 101–108; RESP 16–22; TEMP 36.1–36.8; O2SAT 90–98
[2022-10-12] MEDS: OXYCODONE 5 MG TABLET PO ×2 (00:02→09:37)
[2022-10-12] MEDS: OMEPRAZOLE 20 MG CAPSULE DR 40 MG PO (06:09)
--- NOTE | 2022-10-12 06:21 | PC.NURSE ---
Pleasant and cooperative with cares. Reporting pain to left arm at 7/10, pain well managed with prn oxycodone. CMS to right upper extremity intact, patient able to move fingers without pain, edema to fingers. Left upper extremity edematous, patient reporting that when she fell she landed partially on her left arm. Bruising to chin and neck. Urine clear and pale yellow. Slept well.
[2022-10-12] MEDS: polyethylene glycoL 3350 17 GM PACK PO (09:34)
[2022-10-12] MEDS: lisinopriL 5 MG TABLET 2.5 MG PO (09:34)
[2022-10-12] MEDS: SENNOSIDES 1 TAB TABLET 2 TAB PO (09:35)
[2022-10-12] MEDS: oxyBUTYnin chloride 5 MG TAB.ER.24 10 MG PO (09:35)
[2022-10-12] MEDS: ACETAMINOPHEN 325 MG TABLET 650 MG PO (09:36)
[2022-10-12] MEDS: CITALOPRAM HYDROBROMIDE 20 MG TABLET PO (09:37)
[2022-10-12] MEDS: FUROSEMIDE 40 MG TABLET PO ×2 (09:38→13:33)
[2022-10-12] MEDS: METOPROLOL SUCCINATE (XL) 25 MG TAB PO (09:38)
[2022-10-12] MEDS: dilTIAZem 120 MG CAP.ER.24H PO (09:38)
[2022-10-12] MEDS: METFORMIN 500 MG TABLET PO (09:38)
[2022-10-12] MEDS: LORazepam 0.5 MG TABLET PO ×2 (09:38→22:11)
[2022-10-12] MEDS: SODIUM CHLORIDE 0.9 % (FLUSH) 10 ML SYRINGE 5 ML IVF ×2 (09:41→22:12)
[2022-10-12] MEDS: ALBUTEROL INHALER 2 PUFF IH ×4 (09:43→22:10)
[2022-10-12] MEDS: BUDESONIDE 0.5 MG/2ML NEB NEB ×2 (09:43→22:11)
[2022-10-12] MEDS: DOCUSATE SODIUM 100 MG CAPSULE PO (09:45)
--- NOTE | 2022-10-12 11:27 | PM.IMPN1 ---
Progress Note: A&P Assessment and plan (1) Fracture of forearm, right, open: Problem details: POST OP Day1 s/p right distal 1/3 radius and ulna open fracture ORIF -will need SNF placement -woundvac complicating placement -manage other comorbidities Status: Acute (2) Anemia: Problem details: ABLA? previous hgb was 11+ - I presume looking at injury and soft tissue ecchymoses in her neck and shoulder, maybe this is all acute check iron levels -trend Status: Acute (3) Schizophrenia: Problem details: -longstanding. Resident of [facility]. Clozapine, Abilify both p.o. and IM, Celexa, Ativan, trazodone, Ambien Status: Acute (4) Type 2 diabetes mellitus: Problem details: -SSI, accuchecks -hold metformin until post op and eating -A1c less than 6 Status: Acute (5) Diastolic heart failure: Problem details: continue current med plan 07/30/22 ECHO Final Impressions: 1. Normal LV size, severely increased wall thickness in a predominately concentric pattern, normal global and regional systolic function with an estimated EF of 65 - 70%. 2. The aortic valve is trileaflet and sclerotic, mild stenosis and no regurgitation. The aortic valve peak velocity is 2.1 m/s, the peak gradient is 17 mmHg, and the mean gradient is 9 mmHg. The aortic valve area is 2.08 cm?? with a dimensionless index of 0.62. The stroke volume index is 42.6 ml/m??. 3. The mitral valve is sclerotic, mild mitral regurgitation. Mitral stenosis with mildly increased mean gradient of 3.0 mmHg at a heart rate of 60. 4. Mildly increased estimated pulmonary pressures by tricuspid regurgitation velocity and right atrial pressure (21 mmHg plus RAP which is 15-20 mm Hg based on IVC geometry). Status: Acute (6) Insomnia: Problem details: continue current med plan Status: Acute (7) Asthma: Problem details: continue current med plan Status: Acute Subjective Date Seen: 10/12/22 Interval history: Daily Progress Note - Hospital Medicine Day #: 3 CC: fall with compound fracture - right forearm POST OP DAY 2 NAME OF OPERATION:? 1.? Right distal 1/3 radius and ulna open fracture open reduction with internal fixation. 2.? Right forearm excisional debridement including skin, subcu tissue, fascia, and bone 3.? Application negative pressure dressing, incisional wound VAC for both the radius and ulna incisions.? 15 cm in length and 12 cm in length by 1 cm in width.? Total sq cm was approximately 27 sq cm OVERNIGHT UPDATES FROM STAFF & MED, LAB, IMAGING UPDATES stable night. pt reports still hearing voices but good ones too, she adds. she is able lift her right arm off the pillow and free movement of her fingers. Pain is well managed. 126/58. Pulse 106. Resp is 18. Afebrile. 91% on room air. Still has [place] draining Prior to fall had graduated from the 4 wheel walker to 4 pronged cane. PT working her. While not fractured, left arm is injured as well. Anemia noted on presentation - unclear if this is directly from injury or if preceded fall. No new labs this morning I'd like to f/u on lactate, hemoglobin A1c 5.76 Objective: groggy but aware. Vitals: Normal. Blood pressure 111/67. Pulse 95. Temp 98.5? see above Lungs: Clear. Cardiac: S1S2. Disposition/Potential discharge - Likely to return to previous living situation. Total time is 35 minutes with greater than 50% spent in counseling and coordination of care. Exam Const: Vital Signs, click to edit/add: Vital Signs - 24 hr 10/11/22 15:00 10/11/22 15:00 10/11/22 15:00 Temperature Pulse Rate [Radial ] 97 97 Respiratory Rate 21 21 21 Blood Pressure [Le ft Arm] 117/69 Pulse Oximetry 93 93 Oxygen Delivery Me thod Room Air Room Air 10/11/22 19:45 10/11/22 19:45 10/11/22 23:00 Temperature 98.9 F Pulse Rate [Radial ] 103 H Respiratory Rate 16 Blood Pressure [Le ft Arm] 130/52 L Pulse Oximetry 91 91 91 Oxygen Delivery Me thod Room Air Room Air Room Air 10/12/22 00:00 10/12/22 03:00 10/12/22 07:00 Temperature 98.2 F 98.1 F 97.1 F L Pulse Rate [Radial ] 106 H 108 H 106 H Respiratory Rate 16 20 18 Blood Pressure [Le ft Arm] 105/59 L 117/59 L 126/58 L Pulse Oximetry 91 98 91 Oxygen Delivery Me thod Room Air Room Air Room Air 10/12/22 07:00 10/12/22 07:00 Temperature Pulse Rate [Radial ] 106 H Respiratory Rate 18 18 Blood Pressure [Le ft Arm] Pulse Oximetry 91 Oxygen Delivery Me thod Room Air Labs Labs: Laboratory Results - last 24 hr 10/11/22 10/11/22 06:01 11:21 VBG pH 7.407 VBG pCO2 43 VBG pO2 49.4 H VBG HCO3 27 Hemoglobin A1c 5.76 H Lactate 2.2 H Troponin I < 0.01 L NT-Pro-B Natriuret Pep 728
[2022-10-12 11:51] LABS: HCO3 VBG 29 mmol/L (21-28); Lactate* 1.9 mmol/L (0.5-1.9); PCO2 VBG 42 mmHG (40-50); PO2 VBG 59.1 mmHG (25-47); pH VBG 7.451 (7.32-7.43)
[2022-10-12 11:56] LABS: Hematocrit 29.7 % (33.0-51.0); Hemoglobin* 9.4 gm/dL (12.0-16.0); Mean Corpuscular HGB Conc 32 gm/dL (32-36); Mean Corpuscular Hemoglobin 27 pg (26-34); Mean Corpuscular Volume 86 fL (80-100); Platelet Count* 179 K/uL (140-440); Red Blood Count 3.44 m/uL (4.00-5.20); White Blood Count* 8.34 K/uL (4.50-11.00)
[2022-10-12 12:03] LABS: Slide Review Reflex No
[2022-10-12 12:10] LABS: Chloride* 103 mmol/L (96-114); Potassium* 3.4 mmol/L (3.6-5.1); Sodium* 134 mmol/L (135-149)
[2022-10-12 12:13] LABS: Blood Urea Nitrogen* 20 mg/dL (7-30); Carbon Dioxide* 29 mmol/L (20-32); Creatinine* 0.9 mg/dL (0.5-1.5); Est. Creatinine Clearance* 45.16; Estimated Glomerular Filt Rate 70 ml/min; Glucose* 214 mg/dL (60-115); Iron* 22 ug/dL (37-170)
[2022-10-12 12:14] LABS: Calcium* 8.6 mg/dL (8.4-10.6)
[2022-10-12 12:22] LABS: Percent Iron Saturation 6 % (20-50); Total Iron Binding Capacity 346 ug/dL (265-497)
[2022-10-12 12:24] LABS: NT Pro B Type NatriureticPept* 503 pg/mL
--- NOTE | 2022-10-12 13:56 | SUR.OPER ---
Aspiration to right knee, 9cc or clear, yellow synovial fluid removed. Completed by JIM Bernardo
--- NOTE | 2022-10-12 13:59 | PC.SOCIAL ---
Addendum entered by Nicole Law LCSW 10/12/22 16:06: Discharge Planning: Phoned and updated sister, Naomi Gordon [phone] on possible openings for facilities likely next week. Sister requested that [facility] not be contacted as they had a negative experience there. Left msg at [facility] with update. Social work to update family and facility Saturday10/15/22 Original Note: Discharge Planning: The following facilities may have openings next week, 01/15 and have been faxed a chart packet- awaiting call back: [facility] phone [phone] [facility] phone [phone] [facility] phone [phone] [facility] The following facilities have been contacted and have no openings [facility] Anya Arredondo Social work to continue to follow up
--- NOTE | 2022-10-12 18:31 | PC.NURSE ---
End of Shift: Patient pleasant and cooperative. Patient has been drowsy all day, staying awake for meals only. Patient currently rates bilateral arm pain 6/10, patient has a harder time moving left arm then broken arm. Tylenol and 10 mg of oxy given once. Right arm C/D/I, wound Vac intact and draining minimal blood that is not measurable in canister. Patient 1 assist with 4-leg cane to the commode. Patient had one large BM and 1 small urine since ojeda removal. Bladder scan performed, the most found 253cc. Left arm bruised and swollen, patient's chin bruised.
[2022-10-12] MEDS: ARIPiprazole 10 MG TABLET PO (22:11)
[2022-10-12] MEDS: ATORVASTATIN 10 MG TABLET 20 MG PO (22:11)
[2022-10-12] MEDS: ZOLPIDEM 5 MG TABLET PO (22:12)
[2022-10-12] MEDS: TRAZODONE HCL 50 MG TABLET PO (22:12)
--- NOTE | 2022-10-12 23:48 | PC.NURSE ---
End of shift nursing note, care provided from [id number]. Pt alert and oriented to tech writer's questions, but states she has been very sleepy today but is feeling more rested. Denies pain. Vitals stable, on RA. Up to bathroom w/ Ax1-2, pt voided and had x2 loose BMs, stool meds held this evening. BS 203, 2 units of insulin admin per protocol. IV to L wrist flushed, patent. Pt has call light and has used appropriately.
[2022-10-13] VITALS (8 sets, daily range): BP systolic 127–146; BP diastolic 68–73; PULSE 94–117; RESP 18–26; TEMP 37.3–37.7; O2SAT 90–95
[2022-10-13] MEDS: OMEPRAZOLE 20 MG CAPSULE DR 40 MG PO (06:51)
[2022-10-13 07:09] LABS: Hemoglobin* 9.5 gm/dL (12.0-16.0)
[2022-10-13 07:23] LABS: Chloride* 105 mmol/L (96-114); Potassium* 3.5 mmol/L (3.6-5.1); Sodium* 138 mmol/L (135-149)
[2022-10-13 07:26] LABS: Blood Urea Nitrogen* 24 mg/dL (7-30); Calcium* 8.8 mg/dL (8.4-10.6); Carbon Dioxide* 30 mmol/L (20-32); Creatinine* 0.7 mg/dL (0.5-1.5); Est. Creatinine Clearance* 45.16; Estimated Glomerular Filt Rate 95 ml/min; Glucose* 131 mg/dL (60-115)
--- NOTE | 2022-10-13 08:39 | P.IMPN_ITS ---
Progress Note: A&P Assessment and plan (1) Fracture of forearm, right, open: Problem details: POST OP Day 2 s/p right distal 1/3 radius and ulna open fracture ORIF -will need SNF placement -wound vac complicating placement -manage other comorbidities Status: Acute (2) Anemia: Problem details: ABLA? previous hgb was 11+ - I presume looking at injury and soft tissue ecchymoses in her neck and shoulder, maybe this is all acute check iron levels -trend Status: Acute (3) Schizophrenia: Problem details: -longstanding. Resident of [facility]. Clozapine, Abilify both p.o. and IM, Celexa, Ativan, trazodone, Ambien Status: Acute (4) Type 2 diabetes mellitus: Problem details: -SSI, accuchecks -hold metformin until post op and eating -A1c less than 6 Status: Acute (5) Diastolic heart failure: Problem details: continue current med plan 07/30/22 ECHO Final Impressions: 1. Normal LV size, severely increased wall thickness in a predominately concentric pattern, normal global and regional systolic function with an estimated EF of 65 - 70%. 2. The aortic valve is trileaflet and sclerotic, mild stenosis and no regurgitation. The aortic valve peak velocity is 2.1 m/s, the peak gradient is 17 mmHg, and the mean gradient is 9 mmHg. The aortic valve area is 2.08 cm?? with a dimensionless index of 0.62. The stroke volume index is 42.6 ml/m??. 3. The mitral valve is sclerotic, mild mitral regurgitation. Mitral stenosis with mildly increased mean gradient of 3.0 mmHg at a heart rate of 60. 4. Mildly increased estimated pulmonary pressures by tricuspid regurgitation velocity and right atrial pressure (21 mmHg plus RAP which is 15-20 mm Hg based on IVC geometry). Status: Acute (6) Insomnia: Problem details: continue current med plan Status: Acute (7) Asthma: Problem details: continue current med plan Status: Acute Subjective Date Seen: 10/13/22 Interval history: Daily Progress Note - Hospital Medicine Day #: 4 CC: fall with compound fracture - right forearm POST OP DAY 3 NAME OF OPERATION:? 1.? Right distal 1/3 radius and ulna open fracture open reduction with internal fixation. 2.? Right forearm excisional debridement including skin, subcu tissue, fascia, and bone 3.? Application negative pressure dressing, incisional wound VAC for both the radius and ulna incisions.? 15 cm in length and 12 cm in length by 1 cm in width.? Total sq cm was approximately 27 sq cm OVERNIGHT UPDATES FROM STAFF & MED, LAB, IMAGING UPDATES -rusty out -working with PT 117/61. Pulse 95. Resp is 18. Temp 98?. O2 sat 90% on room air Hemoglobin post injury/surgery 9.5 this is holding steady from yesterday is actually up from admission. Potassium improved to 3.5 this morning. Renal function is improved. Blood sugar 130, 203, 181, 224, 123 End of shift nursing note, care provided from [id number]. Pt alert and oriented to functional tester typewriters's questions, but states she has been very sleepy today but is feeling more rested. Denies pain. Vitals stable, on RA. Up to bathroom w/ Ax1-2, pt voided and had x2 loose BMs, stool meds held this evening. BS 203, 2 units of insulin admin per protocol. IV to L wrist flushed, patent. Pt has call light and has used appropriately. Objective: groggy but aware. Vitals: Normal. Blood pressure 111/67. Pulse 95. Temp 98.5? see above Lungs: Clear. Cardiac: S1S2. Disposition/Potential discharge - Likely to return to previous living situation. Total time is 35 minutes with greater than 50% spent in counseling and coordination of care. Exam Const: Vital Signs, click to edit/add: Vital Signs - 24 hr 10/12/22 11:00 10/12/22 15:00 10/12/22 15:00 Temperature 97 F L 97.8 F Pulse Rate [Radial ] 105 H 101 H 101 H Respiratory Rate 18 22 22 Blood Pressure [Le ft Arm] 126/55 L 119/63 Pulse Oximetry 90 91 Oxygen Delivery Me thod Room Air Room Air 10/12/22 15:00 10/12/22 19:30 10/12/22 23:00 Temperature 97.7 F Pulse Rate [Radial ] 104 H 101 H Respiratory Rate 22 18 18 Blood Pressure [Le ft Arm] 114/61 Pulse Oximetry 91 93 Oxygen Delivery Me thod Room Air Room Air 10/12/22 23:00 10/12/22 23:00 10/13/22 03:00 Temperature 98 F Pulse Rate [Radial ] 101 H 95 Respiratory Rate 18 18 18 Blood Pressure [Le ft Arm] 117/61 Pulse Oximetry 91 91 90 Oxygen Delivery Me thod Room Air Room Air Room Air Labs Labs: Laboratory Results - last 24 hr 10/12/22 10/13/22 11:43 06:50 WBC 8.34 RBC 3.44 L Hgb 9.4 L 9.5 L Hct 29.7 L MCV 86 MCH 27 MCHC 32 Plt Count 179 VBG pH 7.451 H VBG pCO2 42 VBG pO2 59.1 H VBG HCO3 29 H Sodium 134 L 138 Potassium 3.4 L 3.5 L Chloride 103 105 Carbon Dioxide 29 30 BUN 20 24 Creatinine 0.9 0.7 Estimated Creat Clear 45.16 45.16 Estimated GFR 70 95 Glucose 214 H 131 H Lactate 1.9 Calcium 8.6 8.8 Iron 22 L TIBC 346 % Saturation 6 L NT-Pro-B Natriuret Pep 503
[2022-10-13] MEDS: lisinopriL 5 MG TABLET 2.5 MG PO (09:23)
[2022-10-13] MEDS: polyethylene glycoL 3350 17 GM PACK PO (09:23)
[2022-10-13] MEDS: ALBUTEROL INHALER 2 PUFF IH ×7 (09:23→20:32)
[2022-10-13] MEDS: BUDESONIDE 0.5 MG/2ML NEB NEB ×2 (09:23→20:33)
[2022-10-13] MEDS: CITALOPRAM HYDROBROMIDE 20 MG TABLET PO (09:24)
[2022-10-13] MEDS: LORazepam 0.5 MG TABLET PO ×2 (09:24→20:32)
[2022-10-13] MEDS: oxyBUTYnin chloride 5 MG TAB.ER.24 10 MG PO (09:24)
[2022-10-13] MEDS: SENNOSIDES 1 TAB TABLET 2 TAB PO ×2 (09:24→20:32)
[2022-10-13] MEDS: METOPROLOL SUCCINATE (XL) 25 MG TAB PO (09:24)
[2022-10-13] MEDS: dilTIAZem 120 MG CAP.ER.24H PO (09:25)
[2022-10-13] MEDS: DOCUSATE SODIUM 100 MG CAPSULE PO (09:25)
[2022-10-13] MEDS: METFORMIN 500 MG TABLET PO ×2 (09:25→17:31)
[2022-10-13] MEDS: FUROSEMIDE 40 MG TABLET PO ×2 (09:25→14:55)
[2022-10-13] MEDS: SODIUM CHLORIDE 0.9 % (FLUSH) 10 ML SYRINGE 5 ML IVF ×2 (09:26→20:34)
[2022-10-13] MEDS: OXYCODONE 5 MG TABLET PO (11:14)
--- NOTE | 2022-10-13 17:07 | PC.NURSE ---
Pt alert and oriented. Pt calm and cooperative during shift. Pt had pain ranging from 0-6 during shift. See EMAR for intervention. Pt up with one assist, gait belt and cane. Pt up in chair during shift. Pt has been sleeping on and off during shift. ? ?
[2022-10-13] MEDS: ZOLPIDEM 5 MG TABLET PO (20:31)
[2022-10-13] MEDS: ATORVASTATIN 10 MG TABLET 20 MG PO (20:31)
[2022-10-13] MEDS: TRAZODONE HCL 50 MG TABLET PO (20:31)
[2022-10-13] MEDS: ARIPiprazole 10 MG TABLET PO (20:33)
[2022-10-13] MEDS: ACETAMINOPHEN 325 MG TABLET 650 MG PO (22:28)
[2022-10-14] VITALS (9 sets, daily range): BP systolic 118–149; BP diastolic 57–75; PULSE 78–92; RESP 18–24; TEMP 36.8–37.1; O2SAT 92–97
[2022-10-14] MEDS: OMEPRAZOLE 20 MG CAPSULE DR 40 MG PO (06:11)
[2022-10-14] MEDS: ACETAMINOPHEN 325 MG TABLET 650 MG PO ×3 (06:28→20:34)
[2022-10-14 07:09] LABS: HCO3 VBG 30 mmol/L (21-28); PCO2 VBG 40 mmHG (40-50); PO2 VBG 57.8 mmHG (25-47); pH VBG 7.481 (7.32-7.43)
--- NOTE | 2022-10-14 07:28 | PC.NURSE ---
19-: pleasant and cooperative. Calls appropriately. A x 1 w/ cane. Low grade temp, Tylenol given. C/o left arm pain, pt performing ROM exercises with left?arm and states that has been improving the pain. No c/o pain in right arm. SANDY wrap to right arm, in sling, wound vac draining.
[2022-10-14 07:34] LABS: Chloride* 101 mmol/L (96-114)
[2022-10-14 07:35] LABS: Potassium* 3.5 mmol/L (3.6-5.1); Sodium* 134 mmol/L (135-149)
[2022-10-14 07:37] LABS: Creatinine* 0.6 mg/dL (0.5-1.5); Est. Creatinine Clearance* 45.16; Estimated Glomerular Filt Rate 98 ml/min
[2022-10-14 07:38] LABS: Blood Urea Nitrogen* 23 mg/dL (7-30); Carbon Dioxide* 29 mmol/L (20-32); Glucose* 127 mg/dL (60-115)
[2022-10-14] MEDS: oxyBUTYnin chloride 5 MG TAB.ER.24 10 MG PO (08:21)
[2022-10-14] MEDS: METOPROLOL SUCCINATE (XL) 25 MG TAB PO (08:22)
[2022-10-14] MEDS: CITALOPRAM HYDROBROMIDE 20 MG TABLET PO (08:23)
[2022-10-14] MEDS: dilTIAZem 120 MG CAP.ER.24H PO (08:23)
[2022-10-14] MEDS: lisinopriL 5 MG TABLET 2.5 MG PO (08:23)
[2022-10-14] MEDS: DOCUSATE SODIUM 100 MG CAPSULE PO (08:24)
[2022-10-14] MEDS: LORazepam 0.5 MG TABLET PO ×2 (09:12→20:28)
[2022-10-14] MEDS: polyethylene glycoL 3350 17 GM PACK PO (09:12)
[2022-10-14] MEDS: FUROSEMIDE 40 MG TABLET PO ×2 (09:13→15:45)
[2022-10-14] MEDS: ALBUTEROL INHALER 2 PUFF IH ×4 (09:13→20:28)
[2022-10-14] MEDS: METFORMIN 500 MG TABLET PO ×2 (09:13→17:57)
[2022-10-14] MEDS: SENNOSIDES 1 TAB TABLET PO (09:15)
[2022-10-14] MEDS: SODIUM CHLORIDE 0.9 % (FLUSH) 10 ML SYRINGE 5 ML IVF ×3 (09:16→20:29)
[2022-10-14] MEDS: BUDESONIDE 0.5 MG/2ML NEB NEB ×2 (09:17→20:29)
--- NOTE | 2022-10-14 11:50 | CRLHL7_ITS ---
For Patients: As a result of the Cures Act, medical imaging exams and procedure reports are released immediately into your electronic medical record. You may view this report before your referring provider. If you have questions, please contact your health care provider. INDICATION: Left shoulder injury. TECHNIQUE: Three views of the left shoulder. COMPARISON: None. FINDINGS: No fracture or dislocation. Moderate glenohumeral joint osteoarthritis. AC joint unremarkable. IMPRESSION: Negative for acute traumatic abnormality. Dictated by Deion Lewis MD @ 10/14/2022 1:08:34 PM (Electronically Signed)
--- NOTE | 2022-10-14 11:50 | CRLHL7_ITS ---
For Patients: As a result of the Cures Act, medical imaging exams and procedure reports are released immediately into your electronic medical record. You may view this report before your referring provider. If you have questions, please contact your health care provider. INDICATION: Left forearm injury. TECHNIQUE: Two views of the left forearm. COMPARISON: Today`s left elbow and wrist x-rays. FINDINGS: Mildly comminuted, displaced and angulated proximal ulnar shaft fracture and fracture dislocation of the radial head, as described on the elbow x-rays. Radius and ulna otherwise intact. IMPRESSION: Mildly comminuted, displaced and angulated proximal ulnar shaft fracture and fracture dislocation of the radial head, as described on the elbow x-rays. No otherwise negative. Dictated by Deion Lewis MD @ 10/14/2022 1:15:47 PM (Electronically Signed)
--- NOTE | 2022-10-14 11:50 | CRLHL7_ITS ---
For Patients: As a result of the Cures Act, medical imaging exams and procedure reports are released immediately into your electronic medical record. You may view this report before your referring provider. If you have questions, please contact your health care provider. INDICATION: Left wrist injury. TECHNIQUE: AP and lateral views of the left wrist. COMPARISON: Today`s left forearm x-rays. FINDINGS: No fracture, subluxation or other abnormality. CONCLUSION: Negative left wrist. Dictated by Deion Lewis MD @ 10/14/2022 1:16:32 PM (Electronically Signed)
--- NOTE | 2022-10-14 11:50 | CRLHL7_ITS ---
For Patients: As a result of the Century Cures Act, medical imaging exams and procedure reports are released immediately into your electronic medical record. You may view this report before your referring provider. If you have questions, please contact your health care provider. INDICATION: Left elbow injury. TECHNIQUE: AP and lateral views of the left elbow. COMPARISON: None. FINDINGS: Mildly comminuted proximal ulnar shaft fracture with shaft displaced laterally and angulated anteriorly with respect to the proximal fragment. Proximal ulnar fragment anatomically aligned with the humerus. Fracture dislocation of the radial head with displaced lateral head fragment. Head recommend not clearly identified. Radial head dislocated dorsal to the capitellum. IMPRESSION: Mildly comminuted, displaced and angulated proximal ulnar fracture and fracture dislocation of the radial head, as above. Dictated by Deion Lewis MD @ 10/14/2022 1:13:29 PM (Electronically Signed)
--- NOTE | 2022-10-14 12:51 | CRLHL7_ITS ---
For Patients: As a result of the Century Cures Act, medical imaging exams and procedure reports are released immediately into your electronic medical record. You may view this report before your referring provider. If you have questions, please contact your health care provider. INDICATION: Trauma TECHNIQUE: CT cervical spine without contrast. COMPARISON: None FINDINGS: There is no compression fracture or facet malalignment. Mild degenerative anterolisthesis of C3 on C4 and C2 on C3. Disc space narrowing and spurring C4-5, C5-6 and C6-7 with vacuum disc phenomenon present. Discogenic endplate sclerosis noted. IMPRESSION: No cervical spine fracture. Please note that all CT scans at this facility use dose modulation, iterative reconstruction, and/or weight-based dosing when appropriate to reduce radiation dose to as low as reasonably achievable. Dictated by Keaton Montoya MD @ 10/14/2022 4:17:20 PM (Electronically Signed)
--- NOTE | 2022-10-14 12:51 | CRLHL7_ITS ---
For Patients: As a result of the Century Cures Act, medical imaging exams and procedure reports are released immediately into your electronic medical record. You may view this report before your referring provider. If you have questions, please contact your health care provider. INDICATION: Trauma COMPARISON: none TECHNIQUE: A CT volumetric acquisition was performed of the brain without IV contrast. Please note that all CT scans at this facility use dose modulation, iterative reconstruction, and/or weight-based dosing when appropriate to reduce radiation dose to as low as reasonably achievable. FINDINGS: The CT images reveal a normal appearance of the cerebral ventricles and basal cisterns. There is no evidence of intracranial hemorrhage, tissue infarction or mass effect. The mastoid air cells and middle ear cavities are clear. The calvarium appears intact. Minimal left maxillary sinus disease. IMPRESSION: No intracranial hemorrhage. Please note that all CT scans at this facility use dose modulation, iterative reconstruction, and/or weight-based dosing when appropriate to reduce radiation dose to as low as reasonably achievable. Dictated by Keaton Montoya MD @ 10/14/2022 4:14:21 PM (Electronically Signed)
--- NOTE | 2022-10-14 12:52 | CRLHL7_ITS ---
For Patients: As a result of the Cures Act, medical imaging exams and procedure reports are released immediately into your electronic medical record. You may view this report before your referring provider. If you have questions, please contact your health care provider. Indication: Trauma. Technique: Chest 2 views. Comparison: Chest radiograph 04/23/2021. FINDINGS: There is mild enlargement of the cardiac silhouette which is likely secondary to AP positioning and low lung volumes. Mild atelectasis in lung bases. Suture material is seen in the left upper lung. The left lung apex is excluded from the field of view. No evidence of pneumothorax on the right. No pleural effusion. The visualized osseous structures are unremarkable for age. Impression: The left lung apex is excluded from the field of view. Within this limitation there is no evidence of acute cardiopulmonary abnormality. Dictated by Ebonie Chappell MD @ 10/14/2022 4:18:42 PM (Electronically Signed)
--- NOTE | 2022-10-14 12:52 | CRLHL7_ITS ---
For Patients: As a result of the Cures Act, medical imaging exams and procedure reports are released immediately into your electronic medical record. You may view this report before your referring provider. If you have questions, please contact your health care provider. INDICATION: Trauma. TECHNIQUE: AP view of the pelvis. COMPARISON: None. IMPRESSION : There is no evidence of pelvic fracture on this single view. Moderate bilateral hip joint space narrowing. Moderate degenerative changes in the lower lumbar spine. There are pelvic phleboliths. The visualized soft tissues are otherwise unremarkable. Dictated by Ebonie Chappell MD @ 10/14/2022 4:16:08 PM (Electronically Signed)
--- NOTE | 2022-10-14 12:53 | CRLHL7_ITS ---
For Patients: As a result of the Cures Act, medical imaging exams and procedure reports are released immediately into your electronic medical record. You may view this report before your referring provider. If you have questions, please contact your health care provider. INDICATION: Trauma. TECHNIQUE: Two views of the left knee. COMPARISON: None. FINDINGS: There is no evidence of acute fracture or dislocation. There is severe patellofemoral joint space narrowing with large osteophytes and moderate medial and lateral compartment joint space narrowing with lateral compartment osteophytes. No knee joint effusion. The visualized soft tissues are unremarkable. IMPRESSION: Degenerative changes. No acute fracture or dislocation. Dictated by Ebonie Chappell MD @ 10/14/2022 4:13:57 PM (Electronically Signed)
--- NOTE | 2022-10-14 13:19 | CRLHL7_ITS ---
For Patients: As a result of the Century Cures Act, medical imaging exams and procedure reports are released immediately into your electronic medical record. You may view this report before your referring provider. If you have questions, please contact your health care provider. Indication: Evaluate fracture Technique: Noncontrast CT left elbow Please note that all CT scans at this facility use dose modulation, iterative reconstruction, and/or weight-based dosing when appropriate to reduce radiation dose to as low as reasonably achievable. Comparison: X-rays 10/14/2022 Findings: Fracture dislocation the radial head noted with impacted fracture noted with multiple small adjacent fracture fragments. Chronic impaction changes to the capitellum likely related to chronic OCD changes. There is a displaced and comminuted fracture of the proximal ulna with angulation deformity and multiple small adjacent fracture fragments. Large joint effusion. The distal humerus is likely intact without acute fracture. Soft tissue swelling noted. Impression: Fractures of the proximal ulna at olecranon and radial head with dislocation of the radial head along with joint effusion. Innumerable small adjacent fracture fragments noted about both fractures. Chronic OCD changes to the capitellum. Please note that all CT scans at this facility use dose modulation, iterative reconstruction, and/or weight-based dosing when appropriate to reduce radiation dose to as low as reasonably achievable. Dictated by Keaton Montoya MD @ 10/14/2022 4:22:27 PM (Electronically Signed)
--- NOTE | 2022-10-14 14:16 | PM.IMPN1 ---
Progress Note: A&P Assessment and plan (1) Fracture of forearm, right, open: Problem details: POST OP Day 4 s/p right distal 1/3 radius and ulna open fracture ORIF -will need SNF placement -wound vac can be DC tomorrow -new injuries identified -manage other comorbidities Status: Acute (2) Hemal's fracture of left ulna: Problem details: Identified on 10/14 Attribute delay in diagnosis secondary to patient's disposition (pain tolerance, body habitus, baseline mobility, baseline communication barriers given mental health diagnosis and medication profile) plan is for ORIF 10/15 (NPO at midnight, no anticoagulation currently) -family updated -all imaging reviewed with orthopedics and radiology, no other acute injury noted Status: Acute (3) Anemia: Problem details: ABLA? previous hgb was 11+ - I presume looking at injury and soft tissue ecchymoses in her neck and shoulder, maybe this is all acute check iron levels -trend Status: Acute (4) Schizophrenia: Problem details: -longstanding. Resident of [facility]. Clozapine, Abilify both p.o. and IM, Celexa, Ativan, trazodone, Ambien Status: Acute (5) Type 2 diabetes mellitus: Problem details: -SSI, accuchecks -hold metformin until post op and eating -A1c less than 6 Status: Acute (6) Diastolic heart failure: Problem details: continue current med plan 07/30/22 ECHO Final Impressions: 1. Normal LV size, severely increased wall thickness in a predominately concentric pattern, normal global and regional systolic function with an estimated EF of 65 - 70%. 2. The aortic valve is trileaflet and sclerotic, mild stenosis and no regurgitation. The aortic valve peak velocity is 2.1 m/s, the peak gradient is 17 mmHg, and the mean gradient is 9 mmHg. The aortic valve area is 2.08 cm?? with a dimensionless index of 0.62. The stroke volume index is 42.6 ml/m??. 3. The mitral valve is sclerotic, mild mitral regurgitation. Mitral stenosis with mildly increased mean gradient of 3.0 mmHg at a heart rate of 60. 4. Mildly increased estimated pulmonary pressures by tricuspid regurgitation velocity and right atrial pressure (21 mmHg plus RAP which is 15-20 mm Hg based on IVC geometry). Status: Acute (7) Insomnia: Problem details: continue current med plan Status: Acute (8) Asthma: Problem details: continue current med plan Status: Acute Subjective Date Seen: 10/14/22 Interval history: Daily Progress Note - Hospital Medicine Day #: 5 CC: fall with compound fracture - right forearm POST OP DAY 4 NAME OF OPERATION:? 1.? Right distal 1/3 radius and ulna open fracture open reduction with internal fixation. 2.? Right forearm excisional debridement including skin, subcu tissue, fascia, and bone 3.? Application negative pressure dressing, incisional wound VAC for both the radius and ulna incisions.? 15 cm in length and 12 cm in length by 1 cm in width.? Total sq cm was approximately 27 sq cm OVERNIGHT UPDATES FROM STAFF & MED, LAB, IMAGING UPDATES -less groggy today. -left forarm is more swollen and bruising is extensive. -reviewed initial ER assessment and ortho assessment -will obtain more images, concern for left forearm vitals are all stable Hemoglobin post injury/surgery 9.5 this is holding steady from yesterday is actually up from admission. Potassium improved to 3.5 this morning. Renal function is improved. Blood sugars less than 200 Left forearm Mildly comminuted, displaced and angulated proximal ulnar fracture and fracture dislocation of the radial head, as above. Objective: groggy but aware. Vitals: Normal. Blood pressure 111/67. Pulse 95. Temp 98.5? see above Lungs: Clear. Cardiac: S1S2. MSK: swollen left forearm, wrist flexion and extension is essentially normal. Patient unable to supinate and pronate the left forearm. Extensive ecchymoses. -exam of the bilateral lower extremities reveals a small ecchymoses on the medial left knee. -full range of cervical spine without limitation or discomfort -left shoulder range of motion appears normal -patient has been weight-bearing similar to her baseline Disposition/Potential discharge - will need more acute rehab Total time is 35 minutes with greater than 50% spent in counseling and coordination of care. Exam Const: Vital Signs, click to edit/add: Vital Signs - 24 hr 10/13/22 14:50 10/13/22 14:50 10/13/22 15:00 Temperature 99.8 F H Pulse Rate [Pulse Oximeter] Pulse Rate [Radial ] 101 H 101 H Respiratory Rate 24 24 Blood Pressure [Le ft Arm] 132/68 Pulse Oximetry 95 95 Oxygen Delivery Me thod Room Air Room Air Oxygen Flow Rate 0 0 10/13/22 19:00 10/13/22 22:28 10/13/22 22:32 Temperature 99.4 F 99.2 F Pulse Rate [Pulse Oximeter] 96 94 Pulse Rate [Radial ] Respiratory Rate 24 24 Blood Pressure [Le ft Arm] 132/68 Pulse Oximetry 93 Oxygen Delivery Me thod Room Air Oxygen Flow Rate 0 10/13/22 22:32 10/13/22 22:32 10/14/22 02:29 Temperature 99.2 F 98.2 F Pulse Rate [Pulse Oximeter] 94 90 Pulse Rate [Radial ] Respiratory Rate 24 24 24 Blood Pressure [Le ft Arm] 136/68 126/57 L Pulse Oximetry 91 91 93 Oxygen Delivery Me thod Room Air Room Air Room Air Oxygen Flow Rate 0 0 10/14/22 08:15 10/14/22 11:00 Temperature 98.8 F 98.8 F Pulse Rate [Pulse Oximeter] 92 92 Pulse Rate [Radial ] Respiratory Rate 24 20 Blood Pressure [Le ft Arm] 118/75 139/65 Pulse Oximetry 93 93 Oxygen Delivery Me thod Room Air Room Air Oxygen Flow Rate Labs Labs: Laboratory Results - last 24 hr 10/14/22 07:02 VBG pH 7.481 H VBG pCO2 40 VBG pO2 57.8 H VBG HCO3 30 H Sodium 134 L Potassium 3.5 L Chloride 101 Carbon Dioxide 29 BUN 23 Creatinine 0.6 Estimated Creat Clear 45.16 Estimated GFR 98 Glucose 127 H Calcium 9.0
[2022-10-14 15:55] LABS: Appearance Urine Clear (Clear); Bilirubin Urine Negative (Negative); Blood Urine Negative (Negative); Color Urine Yellow (Yellow); Glucose Urine Negative (Negative); Ketones Urine Negative (Negative); Leukocyte Esterase Urine Trace (Negative); Nitrite Urine Negative (Negative); Protein Urine Negative (Negative); Urobilinogen Urine 0.2 (0.2-1.0)
[2022-10-14 16:03] LABS: RBC Urine 0-2 (0-2); Squamous Epithelial Cell Urine Moderate (None-Few)
[2022-10-14] MEDS: HYDROmorphone 0.5 mg/0.5 ml inj IVP (16:50)
--- NOTE | 2022-10-14 17:37 | PC.NURSE ---
Splint. Kirstin bennett PA was here to apply a long arm posterior splint. to the left arm. cms was checked before and after. Pt was premedicated with 0.5 IVP Dilaudid. Sao2 was monitored. splint was applied by PA. pts left arm had a arm sling applied. PA was able to leave SL available. SL is patent.
--- NOTE | 2022-10-14 20:03 | PC.NURSE ---
Shift Summary? 278 J.N. 67 Code not Established Fall with bilat arm fxs, ORIF? Hx: Insomnia, lung Cx, Asthma, Diastolic heart failure, Schizophrenia, Anemia, DM2? Pt continued to complain for 7/10 pain to L arm. Given Tylenol with some relief. Bruising and swelling. Had several Xrays and CT?s today. Found to have a ?mildly comminuted, displaced and angulated proximal ulnar fracture and fracture dislocation of the radial head?. Splinted and wrapped, sling placed. Elevating arms with pillows and utilized ice. SLed PIV To L wrist. NPO at midnight. Plans for surgery tomorrow. Non-weight bearing to bilat upper extremities. Needs assistance to pivot to commode. UA and culture sent down. On room air. Sister reports recent sleep study and need for CPAP but appointment isn't until november. BG checks, only needed 1 unit today. Had BM today. Worked with therapies out in [place]. ?
[2022-10-14] MEDS: ZOLPIDEM 5 MG TABLET PO (20:27)
[2022-10-14] MEDS: TRAZODONE HCL 50 MG TABLET PO (20:27)
[2022-10-14] MEDS: ATORVASTATIN 10 MG TABLET 20 MG PO (20:28)
[2022-10-14] MEDS: ARIPiprazole 10 MG TABLET PO (20:29)
[2022-10-15 03:00] VITALS: BP 130/67; PULSE 79; RESP 18; TEMP 36.8; O2SAT 93
[2022-10-15] MEDS: OMEPRAZOLE 20 MG CAPSULE DR 40 MG PO (06:23)
--- NOTE | 2022-10-15 06:31 | PC.NURSE ---
19-: pleasant and cooperative. A x 1 to BSC, frequent reminders needed to minimize wt put on bilat upper extremities. NPO since midnight.?Rates pain in left arm /, tylenol given, ice to arms. VSS. BPs taken on calf d/t upper extremity fxs. BLE 1-2+ edema, SCDs on, BLE elevated. Wound vac draining.
[2022-10-15 07:00] VITALS: BP 124/73; PULSE 93; RESP 20; TEMP 36.8; O2SAT 93
[2022-10-15 08:38] LABS: HCO3 VBG 30 mmol/L (21-28); PCO2 VBG 43 mmHG (40-50); PO2 VBG 47.2 mmHG (25-47); pH VBG 7.452 (7.32-7.43)
[2022-10-15 08:44] LABS: Hematocrit 27.4 % (33.0-51.0); Hemoglobin* 8.6 gm/dL (12.0-16.0); Mean Corpuscular HGB Conc 31 gm/dL (32-36); Mean Corpuscular Hemoglobin 27 pg (26-34); Mean Corpuscular Volume 86 fL (80-100); Platelet Count* 157 K/uL (140-440); White Blood Count* 4.75 K/uL (4.50-11.00)
[2022-10-15 08:58] LABS: Slide Review Reflex No
[2022-10-15 09:06] LABS: Chloride* 103 mmol/L (96-114)
[2022-10-15] MEDS: METFORMIN 500 MG TABLET PO ×2 (09:06→17:24)
[2022-10-15] MEDS: FUROSEMIDE 40 MG TABLET PO ×2 (09:06→14:36)
[2022-10-15] MEDS: dilTIAZem 120 MG CAP.ER.24H PO (09:06)
[2022-10-15] MEDS: BUDESONIDE 0.5 MG/2ML NEB NEB (09:06)
[2022-10-15] MEDS: CITALOPRAM HYDROBROMIDE 20 MG TABLET PO (09:06)
[2022-10-15] MEDS: ALBUTEROL INHALER 2 PUFF IH ×3 (09:06→17:22)
[2022-10-15] MEDS: DOCUSATE SODIUM 100 MG CAPSULE PO (09:06)
[2022-10-15 09:07] LABS: Potassium* 3.4 mmol/L (3.6-5.1); Sodium* 135 mmol/L (135-149)
[2022-10-15] MEDS: lisinopriL 5 MG TABLET 2.5 MG PO (09:07)
[2022-10-15] MEDS: LORazepam 0.5 MG TABLET PO (09:07)
[2022-10-15] MEDS: oxyBUTYnin chloride 5 MG TAB.ER.24 10 MG PO (09:07)
[2022-10-15] MEDS: SODIUM CHLORIDE 0.9 % (FLUSH) 10 ML SYRINGE 5 ML IVF (09:08)
[2022-10-15 09:09] LABS: Creatinine* 0.6 mg/dL (0.5-1.5); Est. Creatinine Clearance* 45.16; Estimated Glomerular Filt Rate 98 ml/min
[2022-10-15 09:10] LABS: Blood Urea Nitrogen* 21 mg/dL (7-30); Carbon Dioxide* 30 mmol/L (20-32); Glucose* 114 mg/dL (60-115)
[2022-10-15 09:11] LABS: Calcium* 8.5 mg/dL (8.4-10.6)
[2022-10-15 09:13] LABS: C Reactive Protein* 3.3 mg/dL (0.5-1.0)
--- NOTE | 2022-10-15 09:32 | P.DS_ITS ---
DS: Providers Provider Date Seen: 10/15/22 Date of admission: 10/11/22 09:09 Primary care physician: Yecenia Thrasher MD Admitting Clinician: Jeanie Tamayo MD Consults: 10/10/22 21:28 Consult to Physician [CONS] Routine Comment: Consulting Provider: Hospitalists Has provider been notified: No 10/11/22 07:08 Consult to Physical Therapy [CONS] Routine Comment: Reason(s) for PT Consult:: Evaluate Ambulation Any Restrictions?:: Unknown 10/11/22 07:09 Consult to Occupational Therapy [CONS] Routine Comment: Reason(s) for OT Consult:: ADLs Prior to Discharge Any Restrictions?:: UE Immobilized 10/11/22 07:12 Consult to Occupational Therapy [CONS] Routine Comment: Reason(s) for OT Consult:: Evaluate and Treat Any Restrictions?:: See Comment Comment: right arm Consult to Physical Therapy [CONS] Routine Comment: Reason(s) for PT Consult:: Evaluate and Treat Any Restrictions?:: See Comment Attending Physician on discharge: JEANIE TAMAYO MD [facility] Date of Discharge: 10/15/22 DS: Diagnosis Discharge Diagnosis (1) Monteggia's fracture of left ulna: Status: Acute Problem details: Date of injury: 10/10. Ground level fall on a asphalt road, downhill. Uses a cane at baseline. Identified on 10/14 Attribute delay in diagnosis secondary to patient's disposition (pain tolerance, body habitus, baseline mobility, baseline communication barriers given mental health diagnosis and medication profile) plan is to transfer to ortho Trauma Service that tertiary care -family updated -all imaging pushed [facility] (2) Fracture of forearm, right, open: Status: Acute Problem details: Date of injury 10/10 POST OP Day 5 s/p right distal 1/3 radius and ulna open fracture ORIF -wound VAC was placed on the operative, right, forearm for prevention of wound dehiscence. Will be removed today, 10/15/2022, before transfer. (3) Anemia: Status: Acute Problem details: ABLA- acute injury. Trend. Stable. (4) Schizophrenia: Status: Acute Problem details: -longstanding. [facility]ident [facility]. Clozapine, Abilify both p.o. and IM, Celexa, Ativan, trazodone, Ambien (5) Diastolic heart failure: Status: Acute Problem details: continue current med plan - lasix BID, metoprolol, lisinopril 07/30/22 ECHO Final Impressions: 1. Normal LV size, severely increased wall thickness in a predominately concentric pattern, normal global and regional systolic function with an estimated EF of 65 - 70%. 2. The aortic valve is trileaflet and sclerotic, mild stenosis and no regurgitation. The aortic valve peak velocity is 2.1 m/s, the peak gradient is 17 mmHg, and the mean gradient is 9 mmHg. The aortic valve area is 2.08 cm?? with a dimensionless index of 0.62. The stroke volume index is 42.6 ml/m??. 3. The mitral valve is sclerotic, mild mitral regurgitation. Mitral stenosis with mildly increased mean gradient of 3.0 mmHg at a heart rate of 60. 4. Mildly increased estimated pulmonary pressures by tricuspid regurgitation velocity and right atrial pressure (21 mmHg plus RAP which is 15-20 mm Hg based on IVC geometry). (6) Hypertension: Status: Acute Problem details: cont lisinopril, dilt, metoprolol (7) Type 2 diabetes mellitus: Status: Acute Problem details: -SSI, accuchecks -metformin 500 BI -A1c less than 6 -well managed (8) Insomnia: Status: Acute Problem details: continue current med plan (ambien/trazodone) (9) Asthma: Status: Acute Problem details: continue current med plan - albuterol MDI/nebs PRN advair as an outpatient, pulmicort nebs while admitted (as a substitution) (10) Obesity (BMI 30-39.9): Status: Acute DS: Summary Hospital Course Hospital Course: HOSPITALIST TRANSFER SUMMARY ATTENDING PHYSICIAN: Jeanie Tamayo MD REASON FOR TRANSFER Complex Monteggia left elbow fracture Multi joint trauma BRIEF HOSPITAL COURSE: Gabino is a 67-year-old female who lives at a local snf secondary to chronic schizophrenia. On 10/10/2022 she went for a walk, she lost her footing and sustained a ground level fall tumbling down an asphalt driveway. No loss of consciousness. She was assisted immediately at the scene. She was noted to have an open complex fracture of her right forearm. She was brought by EMS to our ER. On the evening of 10/10 she underwent an ORIF of her right forearm. This had a primary closure, however for prevention a wound VAC was placed on her right forearm. Her medical history is complicated by chronic schizophrenia that is complicated by auditory hallucinations, type 2 diabetes, hypertension, diastolic heart failure, asthma. Most of these medical conditions were stable and well managed while she was an inpatient here. She did have a delay in getting her home meds restarted after surgery and was year sharing with her bedside nurse that her voices were getting louder. This seemed to resolve when we restarted her medications. On postop day 4, 10/14/2022, during rounds her left forearm was noted to be increasingly swollen and ecchymotic. She was having increasing trouble using a walker. She had not previously been complaining of pain in the left forearm. Ultimately, a complex Monteggia fracture dislocation of the left elbow was diagnosed. As well, on the , head CT, cervical spine CT, pelvic x-ray, chest x-ray, left knee x-ray were all performed for a more thorough trauma assessment. These were negative. On the morning of 10/15/2022 the [facility] orthopedic team discussed her case and felt a trauma orthopedist, shoulder/elbow specific orthopedist should be consulted. I reached out to [facility], we discussed the case with Dr. Srivastava, he excepted care as a consult physician/surgeon. SERVICES NOT AVAILABLE HERE THAT THIS PATIENT NEEDS: Ortho Trauma ACCEPTING PHYSICIAN/SERVICE/LOCATION: Dr. Srivastava, [facility] MEDICATIONS AT TIME OF TRANSFER: See Mar. DRIPS/LINES: None VITAL SIGN, MEDICATION, LAB/MICRO, IMAGING SUMMARY (full details available in ac count tabs or by records request) 124/73. Pulse 93. Respirations 20. Afebrile. O2 sats are 93% on room air. Weight is 100.7 kilos Preop, post trauma hemoglobin noted to be 8.7. Baseline hemoglobin from 03/20 was 11.7 Current hemoglobin is 8.6 she is iron deficient with a total iron of 22, TIBC 346, iron saturation 6. She has not been given blood during this hospitalization. PH has been 7.4 throughout admission No CO2 retention Mild hyponatremia and hypokalemia have been noted throughout her hospitalization. Lowest sodium was 134, and lowest potassium was 3.4 Troponin negative. Right elbow x-ray 10/10/2022 Compound comminuted fracture of the distal ulna, with significant foreshortening and displacement. Open fracture at the medial aspect involves the proximal ulnar fracture fragment. Comminuted fracture of the mid to distal right radius, with significant foreshortening and displacement. On provided views, there is no definite dislocation of the wrist or elbow joint. Left elbow CT 10/14/2022 Fractures of the proximal ulna at olecranon and radial head with dislocation of the radial head along with joint effusion. Innumerable small adjacent fracture fragments noted about both fractures. Chronic OCD changes to the capitellum. REVIEW OF SYSTEMS Unchanged. PHYSICAL EXAM: CONSTITUTIONAL: VITAL SIGNS: see record. Exam unchanged from earlier with notable exceptions: splint on both upper extremities. wound vac off right forearm. DISPOSITION: [facility] - Ortho Trauma Time spent on discharge >30 minutes. This includes speaking with accepting physician; family/patient and coordinating meds/drips for transfer Status at Discharge Functional status at discharge: uses cane/walker Overall status at discharge: patient is not back to baseline Time Spent with Patient Time attestation: Total time spent providing and/or coordinating discharge services: Time spent: Greater than 30 minutes Exam Const: Vital Signs, click to edit/add: Vital Signs - 24 hr 10/14/22 11:00 10/14/22 15:00 10/14/22 15:00 Temperature 98.8 F Pulse Rate [Pulse Oximeter] 92 78 Respiratory Rate 20 20 20 Blood Pressure [Le ft Arm] 139/65 Blood Pressure [Ri ght Calf] Pulse Oximetry 93 95 Oxygen Delivery Me thod Room Air Room Air Oxygen Flow Rate 0 10/14/22 16:00 10/14/22 19:00 10/14/22 22:46 Temperature 98.4 F 98.3 F 98.8 F Pulse Rate [Pulse Oximeter] 88 88 88 Respiratory Rate 20 20 18 Blood Pressure [Le ft Arm] 149/65 H Blood Pressure [Ri ght Calf] 133/74 Pulse Oximetry 97 93 92 Oxygen Delivery Me thod Room Air Room Air Room Air Oxygen Flow Rate 0 10/14/22 23:00 10/14/22 23:00 10/15/22 03:00 Temperature 98.2 F Pulse Rate [Pulse Oximeter] 88 79 Respiratory Rate 18 18 18 Blood Pressure [Le ft Arm] Blood Pressure [Ri ght Calf] 130/67 Pulse Oximetry 92 93 Oxygen Delivery Me thod Room Air Room Air Oxygen Flow Rate 0 0 DS: Data Data Completed and Pending Labs on day of discharge: Labs from last 24 hours 10/15/22 10/14/22 08:23 Unknown WBC 4.75 RBC 3.20 L Hgb 8.6 L Hct 27.4 L MCV 86 MCH 27 MCHC 31 L Plt Count 157 VBG pH 7.452 H VBG pCO2 43 VBG pO2 47.2 H VBG HCO3 30 H Sodium 135 Potassium 3.4 L Chloride 103 Carbon Dioxide 30 BUN 21 Creatinine 0.6 Estimated Creat Clear 45.16 Estimated GFR 98 Glucose 114 Calcium 8.5 C-Reactive Protein 3.3 H Urine Color Yellow Urine Appearance Clear Urine pH 6.0 Ur Specific [place] 1.020 Urine Protein Negative Urine Glucose (UA) Negative Urine Ketones Negative Urine Blood Negative Urine Nitrite Negative Urine Bilirubin Negative Urine Urobilinogen 0.2 Ur Leukocyte Esterase Trace A Urine RBC 0-2 Urine WBC 2-5 Ur Squamous Epith Cells Moderate A Urine Bacteria None Discharge Plan Discharge Disposition: [facility] Date of Admission: 10/11/22 09:09 Attending Provider on Discharge: Jeanie Tamayo Primary Care Provider: Yecenia Thrasher Discharge Comments: DOI 10/11/22 ORIF (RIGHT) FOREARM 10/11/22. IDENTIFIED LEFT MONTEGGIA ELBOW 10/14. ORTHO TRAUMA REQUESTED 10/15 Oxygen: No Urinary Catheter: No Services not available here: ORTHO TRAUMA
[2022-10-15 11:00] VITALS: BP 121/87; PULSE 106; RESP 18; O2SAT 95
[2022-10-15] MEDS: ACETAMINOPHEN 325 MG TABLET 650 MG PO (11:42)
--- NOTE | 2022-10-15 14:52 | P.ORPN_ITS ---
Subjective Subjective Date Seen: 10/15/22 Principal diagnosis: POD 5 right distal 1/3 radius and ulna open fracture ORIF Interval history: Patient reports doing well. No acute events over night. Pain managed with scheduled and PRN medications and ice. Denies any discomfort bilateral upper extremity. Denies fevers, chills, aches, N/V, CP, SOB/BREEN, or lightheadedness. Goal today is to remove the right upper extremity splint and wound VAC/dressing, re-dress the wound, and apply a volar short-arm splint. She is being transferred to [place] today via EMS for left elbow ORIF. Daily Progress Note - Hospital Medicine Day #: 5 CC: fall with compound fracture - right forearm POST OP DAY 4 NAME OF OPERATION:? 1.? Right distal 1/3 radius and ulna open fracture open reduction with internal fixation. 2.? Right forearm excisional debridement including skin, subcu tissue, fascia, and bone 3.? Application negative pressure dressing, incisional wound VAC for both the radius and ulna incisions.? 15 cm in length and 12 cm in length by 1 cm in width.? Total sq cm was approximately 27 sq cm OVERNIGHT UPDATES FROM STAFF & MED, LAB, IMAGING UPDATES -less groggy today. -left forarm is more swollen and bruising is extensive. -reviewed initial ER assessment and ortho assessment -will obtain more images, concern for left forearm vitals are all stable Hemoglobin post injury/surgery 9.5 this is holding steady from yesterday is actually up from admission. Potassium improved to 3.5 this morning. Renal function is improved. Blood sugars less than 200 Left forearm Mildly comminuted, displaced and angulated proximal ulnar fracture and fracture dislocation of the radial head, as above. Objective: groggy but aware. Vitals: Normal. Blood pressure 111/67. Pulse 95. Temp 98.5? see above Lungs: Clear. Cardiac: S1S2. MSK: swollen left forearm, wrist flexion and extension is essentially normal. Patient unable to supinate and pronate the left forearm. Extensive ecchymoses. -exam of the bilateral lower extremities reveals a small ecchymoses on the medial left knee. -full range of cervical spine without limitation or discomfort -left shoulder range of motion appears normal -patient has been weight-bearing similar to her baseline Disposition/Potential discharge - will need more acute rehab Total time is 35 minutes with greater than 50% spent in counseling and coordination of care. Ortho Exam Narrative Exam Narrative: General: * Well-developed, well-nourished, A&Ox 3, no apparent acute distress. Pulmonary: * Breathing pattern regular, even, without apparent distress or audible wheeze present. Right upper extremity: * Current postoperative splint in good condition; once this was removed, wound VAC that was placed superficial over the nylon sutured wounds both dorsal and volar forearm appeared to be healthy. Proximal, and between the wound VAC sponge regions there was soft tissue edema (proximal third forearm), with blood tinged fluid. No induration or fluctuance. This pocket of fluid sitting below the wound dressing was approximately 2 cm in diameter. Once the wound VAC dressings were removed, this fluid was free-flowing and a small approximately 1cm skin tear was noted over the region of soft tissue edema. This skin demonstrated oozing serosanguineous drainage; no pus, no foul odor. Both the dorsal and volar wounds show nylon sutures in good condition, intact; there is mild active bleeding from both distal wounds after wound VAC removed. Both of these wounds are not closed tight * Elbow range of motion, 30-120, decreased motion with supination and pronation though not painful when performing; decreased range of motion with wrist flexion and extension * 2+ radial pulse, pink warm digits with brisk cap refill; intact dermatomes and myotomes distally including radial, ulnar, and median nerve distributions Const Vital Signs, click to edit/add: Vital Signs - 24 hr 10/14/22 15:00 10/14/22 15:00 10/14/22 16:00 Temperature 98.4 F Pulse Rate [Pulse Oximeter] 78 88 Respiratory Rate 20 20 20 Blood Pressure [Left Arm] 149/65 H Blood Pressure [Left Calf] Blood Pressure [Right Calf] Pulse Oximetry 95 97 Oxygen Delivery Method Room Air Room Air Oxygen Flow Rate 0 10/14/22 19:00 10/14/22 22:46 10/14/22 23:00 Temperature 98.3 F 98.8 F Pulse Rate [Pulse Oximeter] 88 88 88 Respiratory Rate 20 18 18 Blood Pressure [Left Arm] Blood Pressure [Left Calf] Blood Pressure [Right Calf] 133/74 Pulse Oximetry 93 92 Oxygen Delivery Method Room Air Room Air Oxygen Flow Rate 0 10/14/22 23:00 10/15/22 03:00 10/15/22 07:00 Temperature 98.2 F Pulse Rate [Pulse Oximeter] 79 93 Respiratory Rate 18 18 20 Blood Pressure [Left Arm] Blood Pressure [Left Calf] Blood Pressure [Right Calf] 130/67 Pulse Oximetry 92 93 Oxygen Delivery Method Room Air Room Air Oxygen Flow Rate 0 0 10/15/22 07:00 10/15/22 07:00 10/15/22 11:00 Temperature 98.3 F Pulse Rate [Pulse Oximeter] 93 106 H Respiratory Rate 20 20 18 Blood Pressure [Left Arm] Blood Pressure [Left Calf] 124/73 121/87 Blood Pressure [Right Calf] Pulse Oximetry 93 93 95 Oxygen Delivery Method Room Air Room Air Room Air Oxygen Flow Rate Assessment and Plan Assessment and plan (1) Hemal's fracture of left ulna: Problem details: Date of injury: 10/10. Ground level fall on a asphalt road, downhill. Uses a cane at baseline. Identified on 10/14 Attribute delay in diagnosis secondary to patient's disposition (pain tolerance, body habitus, baseline mobility, baseline communication barriers given mental health diagnosis and medication profile) plan is to transfer to ortho Trauma Service that tertiary care -family updated -all imaging pushed [facility] Status: Acute (2) Fracture of forearm, right, open: Problem details: Date of injury 10/10 POST OP Day 5 s/p right distal 1/3 radius and ulna open fracture ORIF -wound VAC was placed on the operative, right, forearm for prevention of wound d ehiscence. Will be removed today, 10/15/2022, before transfer. Status: Acute (3) Anemia: Problem details: ABLA- acute injury. Trend. Stable. Status: Acute (4) Schizophrenia: Problem details: -longstanding. Resident of [facility]. Clozapine, Abilify both p.o. and IM, Celexa, Ativan, trazodone, Ambien Status: Acute (5) Diastolic heart failure: Problem details: continue current med plan - lasix BID, metoprolol, lisinopril 07/30/22 ECHO Final Impressions: 1. Normal LV size, severely increased wall thickness in a predominately concentric pattern, normal global and regional systolic function with an estimated EF of 65 - 70%. 2. The aortic valve is trileaflet and sclerotic, mild stenosis and no regurgitation. The aortic valve peak velocity is 2.1 m/s, the peak gradient is 17 mmHg, and the mean gradient is 9 mmHg. The aortic valve area is 2.08 cm?? with a dimensionless index of 0.62. The stroke volume index is 42.6 ml/m??. 3. The mitral valve is sclerotic, mild mitral regurgitation. Mitral stenosis with mildly increased mean gradient of 3.0 mmHg at a heart rate of 60. 4. Mildly increased estimated pulmonary pressures by tricuspid regurgitation velocity and right atrial pressure (21 mmHg plus RAP which is 15-20 mm Hg based on IVC geometry). Status: Acute (6) Hypertension: Problem details: cont lisinopril, dilt, metoprolol Status: Acute (7) Type 2 diabetes mellitus: Problem details: -SSI, accuchecks -metformin 500 BI -A1c less than 6 -well managed Status: Acute (8) Insomnia: Problem details: continue current med plan (ambien/trazodone) Status: Acute (9) Asthma: Problem details: continue current med plan - albuterol MDI/nebs PRN advair as an outpatient, pulmicort nebs while admitted (as a substitution) Status: Acute (10) Obesity (BMI 30-39.9): Status: Acute Plan The original postoperative splint was removed without complications. The wounds were allowed to sit open for approximately 1.5 hours. After this time, noted no further drainage. The wounds were cleaned with ChloraPrep. Benzoin and Steri- Strips were applied to take pressure off the wound, placed where there were gaps in nylon closure. Attention was made not to place excessive skin tension on the already weak epidermal layer, especially over the soft tissue edematous region of the proximal forearm. Two long Telfa placed over the wounds; stockinette, and soft Webril dressing applied. Then, an ortho glass splint applied to the volar forearm to create a short-arm splint. Eleazar bandage applied over the top of this. She was encouraged gentle elbow range of motion, and free digit range of motion. Also encouraged elevation. No complications during this procedure or after. Patient had no further questions for me. Disposition: Transfer to [facility] today (10/15/2022) for consult regarding left elbow comminuted fracture with radial head dislocation,
[2022-10-15 14:56] VITALS: BP 116/88; PULSE 85; RESP 18; O2SAT 94
[2022-10-15 19:08] VITALS: BP 153/87; PULSE 92; RESP 18
--- NOTE | 2022-10-15 19:11 | PC.NURSE ---
Nursing Care Hours: [id number] Pt this shift calm and cooperative, alert and oriented. NPO status changed d/t transfer to [place] for surgery. No c/o pain, some soreness when touched during dressing change by ortho surgeon. Tylenol given PRN. Wound vac d/c. CMS bilat hands intact. Loose BM x2, continent. Learning And Development Coordinator observed large hemorrhoid and moderate anal prolapse. No bleeding and no pain. VSS, afebrile. 1 assist to bathroom. Pt had visitors today. EMS p/u pt at 1905 for transfer. Nurse to nurse report given over the phone.
== END 2022-10-15 19:05 | disposition short-term general hospital (02) | DRG 511 ==
LOC: ED 17:16 → SS 17:21 → MEDSURG 21:26 → SS 10-11 09:44 → MEDSURG 10-12 14:15
PROVIDERS: Hospitalist; Admitting Provider Family Medicine; Emergency Provider Family Medicine; PCP Family Medicine; Visit Provider Orthopaedic Surgery Sports Medicine
PROC: 0PSK04Z Reposition Right Ulna with Internal Fixation Device, Open Approach (ICD-10-PCS; CPT 25575; principal; 2022-10-10 16:45)
PROC: 0PSK04Z Reposition Right Ulna with Internal Fixation Device, Open Approach (ICD-10-PCS; 2022-10-10 16:45)
DX: S52.591B Other fractures of lower end of right radius, initial encounter for open fracture type I or II (principal); D62 Acute posthemorrhagic anemia; I50.30 Unspecified diastolic (congestive) heart failure; S52.691B Other fracture of lower end of right ulna, initial encounter for open fracture type I or II; S52.272A Monteggia's fracture of left ulna, initial encounter for closed fracture; S01.512A Laceration without foreign body of oral cavity, initial encounter; W01.0XXA Fall on same level from slipping, tripping and stumbling without subsequent striking against object, initial encounter; F20.9 Schizophrenia, unspecified; E66.9 Obesity, unspecified; Z68.39 Body mass index [BMI] 39.0-39.9, adult; E11.42 Type 2 diabetes mellitus with diabetic polyneuropathy; Z79.84 Long term (current) use of oral hypoglycemic drugs; G47.33 Obstructive sleep apnea (adult) (pediatric); J44.9 Chronic obstructive pulmonary disease, unspecified; G47.00 Insomnia, unspecified; J45.909 Unspecified asthma, uncomplicated; I11.0 Hypertensive heart disease with heart failure; I08.3 Combined rheumatic disorders of mitral, aortic and tricuspid valves; G89.18 Other acute postprocedural pain
CPT/HCPCS: 01810; 36415; 51701; 51798; 64417; 70450; 71046; 72125; 72170; 73030; 73060; 73070; 73090; 73100; 73200; 73560; 76000; 76942; 80048; 81001; 82803; 82962; 83036; 83540; 83550; 83605; 83880; 84484; 85018; 85025; 85027; 86140; 87086; 87186; 90715; 93005; 94640; 94664; 94761; 97110; 97116; 97162; 97165; 97530; 97535; 99140; 99285; A4580; A9270; C1713; J0330; J0690; J1100; J1170; J2250; J2270; J2370; J2405; J2704; J2795; J3010; J7120; J7626

== ENCOUNTER 2022-11-06 13:04 | Outpatient (CLI) | payer MEDICARE, MEDICAID, SELFPAY | END 2022-11-06 13:05 | disposition home or self-care (01) | LOC: AMB 11-07 10:03 | PROVIDERS: PCP Family Medicine; Visit Provider Family Medicine | DX: R22.31 Localized swelling, mass and lump, right upper limb (principal) | CPT/HCPCS: A0425; A0429 ==

== ENCOUNTER 2022-11-06 13:29 | Emergency (ER) | payer MEDICARE, MEDICAID, SELFPAY ==
[2022-11-06] VITALS (8 sets, daily range): BP systolic 116–128; BP diastolic 56–66; PULSE 67–77; RESP 18; TEMP 36.6; O2SAT 92–99; BMI 38.1
--- NOTE | 2022-11-06 | XR_ITS ---
Patient: DEB ARMENTA Facility:?[facility] Patient ID:?[id number] Site Patient ID:?[id number]. Site :?[id number] Study:?XRay-Extremity Right FOREARM 2V-11/06/2022 2:59:14 PM Ordering Physician:RYAN Final Report: INDICATION: Pain after injury. COMPARISON: None available. TECHNIQUE: AP and lateral views of the right forearm were obtained for a total of two views. FINDINGS: There are acute, oblique fractures of the midshaft of the radius and of the mid- distal shaft of the ulna in the area of previous ORIF, with approximately 45 degrees volar angulation of the distal radial fracture fragment and 30 degrees of volar angulation of the distal ulnar fracture fragment. There is approximately 30 degrees radial angulation of both the distal radial and ulnar fracture fragments on the frontal view. The metal fixation plate of the radius is bent but not fractured, without loosening of the anchoring screws. The distal ulnar metal plate is straight and intact, with the oblique fracture passing through the area of 2 out of the 3 proximal anchoring screws. There is no sign of additional fracture elsewhere in the radius or ulna. The visualized portions of the elbow and wrist are intact. There is no sign of radioopaque foreign body. IMPRESSION: Acute, prominently angulated, oblique fractures of the mid radial shaft and the mid-distal ulnar shaft through the area of previous ORIF as described above. Dictated by Jon Tucker MD @ 11/06/2022 4:17:52 PM Signed by:?Jon Tucker MD @11/06/2022 4:17:52 PM (Electronic Signature)
--- NOTE | 2022-11-06 | XR_ITS ---
Patient: DEB ARMENTA Facility:?[facility] Patient ID:?[id number] Site Patient ID:?[id number]. Site :?[id number] Study:?XRay-Extremity Left FOREARM-11/06/2022 3:00:39 PM Ordering Physician:RYAN Final Report: HISTORY: Pain after injury. COMPARISON: None available. FINDINGS: AP and lateral views of the left forearm were obtained for a total of two views. There is a cast applied around the forearm, covering the elbow and wrist. There are changes of ORIF of a fracture of the proximal ulna and olecranon with intact appearance of the 2 metallic plates and anchoring screws. There is a radial head prosthesis in anatomic alignment with the capitellum. There is no sign of dislocation of the elbow. There is mild volar bowing of the distal radius and ulna, suggesting previous incomplete fractures of the midshaft. The wrist is partially visualized on the frontal views and is grossly intact. Soft tissue detail is limited by the overlying cast but is grossly normal. There is no sign of radioopaque foreign body. IMPRESSION: No sign of acute osseous injury. Forearm in a cast, with intact appearance of ORIF of the proximal ulnar shaft and olecranon. Satisfactory appearance of radial head prosthesis. Wrist not fully examined. Dictated by Jon Tucker MD @ 11/06/2022 4:21:40 PM Signed by:?Jon Tucker MD @11/06/2022 4:21:40 PM (Electronic Signature)
--- NOTE | 2022-11-06 17:25 | ED.NURSE ---
pt on waitlist at [facility] for transfer
--- NOTE | 2022-11-06 18:36 | ED.NURSE ---
report given to Trey REED at [place], pt will transfer to [id number]. EMS paged.
--- NOTE | 2022-11-06 18:37 | ED.GENADULT ---
HPI - General Adult General Chief complaint: Extremity Pain/Injury, Upper Time Seen by Provider: 11/06/22 16:25 History of Present Illness HPI narrative: Sarah Reyes In the setting of Internet down and limited patient information 67-year-old woman presenting to the emergency department along with power of workers compensation defense attorney with concern swelling deformity of the right arm.? Four weeks ago sustained a compound fracture to the right arm.? Ultimately went to [place] and was surgically repaired. ?Fracture also in the left forearm was casted.? Has not had any fever.? No noted drainage or fever but power workers compensation defense attorney is quite concerned regarding the shape of this arm.? She has a picture in the clearly shows deformity.? Is wrapped in Eleazar wraps on both forearms.? Apparently Ms. Reyes does not feel pain as typical.? Is convalescing at [facility].? Has apparently continued to press herself up in her bed to reposition; this is the suspected re-injury mechanism Past medical is reviewed includes Monteggia fracture of the left ulna and ORIF Schizophrenia GERD Sleep apnea an Iron deficiency anemia knee Diabetic polyneuropathy Asthma in COPD Anxiety Hypertension and diastolic heart failure Medications reviewed Vitals are noted A physical exam is pleasant and NAD.? Breathing easily.? Both forearms are wrapped with Eleazar wrap.? Clearly the right forearm is deformed with 20? of volar angulation.? Dressing is removed and intact sutures are noted without aleah-incisional inflammation.? Slight odor but no induration or drainage otherwise to suggest infection.? Well-perfused peripherally. Examination of left forearm also with angulation of the midforearm but appears to be less so.? Upon closer inspection it actually appears that the splints and wrapping is actually slid down the arm.? Also with intact suture site at the proximal ulna to the elbow.? Noninflamed.? I do not appreciate notable angulation absent addressing at this point.? Requested imaging of both forearms. Related Data Home Medications Medication Instructions Recorded Confirmed albuterol sulfate 90 mcg/actuation 2 puff inhalation QID PRN 10/11/22 10/11/22 aerosol inhaler ammonium lactate 12 % topical cream 1 applic topical BID 10/11/22 10/11/22 aripiprazole 10 mg tablet 10 mg PO HS 10/11/22 10/11/22 aripiprazole 400 mg intramuscular 400 mg IM Q4W 10/11/22 10/11/22 suspension,extended release (Abiannay Maintena) atorvastatin 20 mg tablet 20 mg PO HS 10/11/22 10/11/22 cholecalciferol (vitamin D3) 125 5,000 unit PO DAILY 10/11/22 10/11/22 mcg (5,000 unit) tablet citalopram 20 mg tablet 20 mg PO DAILY 10/11/22 10/11/22 clozapine 100 mg tablet 100 mg PO HS 10/11/22 10/11/22 diltiazem HCl 120 mg 120 mg PO DAILY 10/11/22 10/11/22 capsule,extended release 24 hr docusate sodium 100 mg capsule 100 mg PO DAILY 10/11/22 10/11/22 fluticasone 250 mcg-salmeterol 50 1 inh inhalation BID 10/11/22 10/11/22 mcg/dose blistr powdr for inhalation furosemide 40 mg tablet 40 mg PO BID 10/11/22 10/11/22 lisinopril 2.5 mg tablet 2.5 mg PO DAILY 10/11/22 10/11/22 lorazepam 0.5 mg tablet 0.5 mg PO BID 10/11/22 10/11/22 magnesium hydroxide 400 mg/5 mL 15 - 30 ml PO QHS PRN 10/11/22 10/11/22 oral suspension (Milk of Elastica) metformin 500 mg tablet 500 mg PO DAILY 10/11/22 10/11/22 metoprolol succinate 25 mg 25 mg PO DAILY 10/11/22 10/11/22 tablet,extended release 24 hr oxybutynin chloride 10 mg 10 mg PO DAILY 10/11/22 10/11/22 tablet,extended release 24 hr pantoprazole 40 mg tablet,delayed 40 mg PO DAILY 10/11/22 10/11/22 release polyethylene glycol 3350 17 17 g PO DAILY 10/11/22 10/11/22 gram/dose oral powder (Gavilax) sennosides 8.6 mg tablet (Corine-artie) 8.6 mg PO DAILY 10/11/22 10/11/22 trazodone 50 mg tablet 50 mg PO HS 10/11/22 10/11/22 zolpidem 5 mg tablet 5 mg PO HS 10/11/22 10/11/22 Allergies Allergy/AdvReac Type Severity Reaction Status Date / Time No Known Drug Allergies Allergy Unverified 11/06/22 10:27 [facility] Medical History (Updated 11/21/22 @ 00:00 by Vivek Gaxiola) Insomnia ?G47.00 - Insomnia, unspecified (ICD-10) History of lung cancer ?Z85.118 - Personal history of other malignant neoplasm of bronchus and lung (ICD-10) Asthma ?J45.909 - Unspecified asthma, uncomplicated (ICD-10) Diastolic heart failure ?I50.30 - Unspecified diastolic (congestive) heart failure (ICD-10) Schizophrenia ?F20.9 - Schizophrenia, unspecified (ICD-10) Surgical History (Updated 11/07/22 @ 15:57 by Joan Guido ~ [facility], [facility]) History of open reduction and internal fixation (ORIF) procedure (10/16/22) ?Z98.890 - Other specified postprocedural states (ICD-10) History of open reduction and internal fixation (ORIF) procedure (10/10/22) ?Z98.890 - Other specified postprocedural states (ICD-10) Social History Smoking Status: Former smoker How often do you have a drink containing alcohol: never AUDIT-C Alcohol total score: 0 Non-prescribed substance use: denies use service: No Exam Narrative: Exam Narrative: On re-examination, under 1 of the Steri-Strips on the right forearm where most prominent subcutaneous bone is palpable, there appears to be a sinus tract leaking some clear fluid. Minimal inflammatory changes surrounding. Const: Vital Signs, click to edit/add: Vital Signs - 24 hr 11/06/22 13:34 11/06/22 14:00 11/06/22 14:00 Temperature 98 F Pulse Rate Pulse Rate [Pulse Oximeter] 77 74 77 Respiratory Rate 18 Blood Pressure [Le ft Leg] 120/56 L 120/56 L 116/60 Pulse Oximetry 99 98 95 Oxygen Delivery Me thod Room Air Room Air Room Air 11/06/22 15:00 11/06/22 16:00 11/06/22 16:30 Temperature Pulse Rate Pulse Rate [Pulse Oximeter] 77 74 Respiratory Rate Blood Pressure [Le ft Leg] 124/66 128/61 123/66 Pulse Oximetry 96 96 Oxygen Delivery Me thod Room Air 11/06/22 17:34 11/06/22 18:00 11/06/22 18:30 Temperature Pulse Rate 67 72 72 Pulse Rate [Pulse Oximeter] Respiratory Rate Blood Pressure [Le ft Leg] Pulse Oximetry 96 92 96 Oxygen Delivery Me thod Course Vital Signs Vital signs: Initial Vital Signs Pulse Rate 77 11/06/22 13:34 Blood Pressure 120/56 L 11/06/22 13:34 Blood Pressure Mean 77 11/06/22 13:34 Blood Pressure Position Supine 11/06/22 13:34 Pulse Oximetry 99 11/06/22 13:34 Oxygen Delivery Method Room Air 11/06/22 13:34 Vital Signs Pulse Rate 77 11/06/22 13:34 Blood Pressure 120/56 L 11/06/22 13:34 Pulse Oximetry 99 11/06/22 13:34 Oxygen Delivery Method Room Air 11/06/22 13:34 Temperature 98 F 11/06/22 14:00 Pulse Rate 72 11/06/22 18:30 Respiratory Rate 18 11/06/22 14:00 Blood Pressure 123/66 11/06/22 16:30 Pulse Oximetry 96 11/06/22 18:30 Oxygen Delivery Method Room Air 11/06/22 16:00 Medical Decision Making MDM Narrative Medical decision making narrative: By my read looks to have broken again this fracture site of the right forearm. Marked angulation and nonunion. Bent hardware. I did discuss these findings with orthopedic surgeon who performed this repair. Noted challenges in this in/small bones for this repair. Recommending revision and cares at a tertiary facility. TECHNIQUE: AP and lateral views of the right forearm were obtained for a total of two views. FINDINGS: There are acute, oblique fractures of the midshaft of the radius and of the mid-distal shaft of the ulna in the area of previous ORIF, with approximately 45 degrees volar angulation of the distal radial fracture fragment and 30 degrees of volar angulation of the distal ulnar fracture fragment. There is approximately 30 degrees radial angulation of both the distal radial and ulnar fracture fragments on the frontal view. The metal fixation plate of the radius is bent but not fractured, without loosening of the anchoring screws. The distal ulnar metal plate is straight and intact, with the oblique fracture passing through the area of 2 out of the 3 proximal anchoring screws. There is no sign of additional fracture elsewhere in the radius or ulna. The visualized portions of the elbow and wrist are intact. There is no sign of radioopaque foreign body. IMPRESSION: Acute, prominently angulated, oblique fractures of the mid radial shaft and the mid-distal ulnar shaft through the area of previous ORIF as described above. I also reviewed left forearm images. Repair looks intact. COMPARISON: None available. FINDINGS: AP and lateral views of the left forearm were obtained for a total of two views. There is a cast applied around the forearm, covering the elbow and wrist. There are changes of ORIF of a fracture of the proximal ulna and olecranon with intact appearance of the 2 metallic plates and anchoring screws. There is a radial head prosthesis in anatomic alignment with the capitellum. There is no sign of dislocation of the elbow. There is mild volar bowing of the distal radius and ulna, suggesting previous incomplete fractures of the midshaft. The wrist is partially visualized on the frontal views and is grossly intact. Soft tissue detail is limited by the overlying cast but is grossly normal. There is no sign of radioopaque foreign body. IMPRESSION: No sign of acute osseous injury. Forearm in a cast, with intact appearance of ORIF of the proximal ulnar shaft and olecranon. Satisfactory appearance of radial head prosthesis. Wrist not fully examined. Able to speak with orthopedist who had repaired the left forearm at [facility] who is graciously accepting Ms. Reyes to return for further cares. Transported there via ambulance. Discharge Plan Discharge Clinical Impression: Failed fixation of fracture, Fracture of forearm with nonunion Patient Disposition: Xfer [facility] Discharge Location: [facility] Hospital Condition: Stable Prescriptions: No Action albuterol sulfate 90 mcg/actuation HFA aerosol inhaler 2 puff inhalation QID PRN atorvastatin 20 mg tablet 20 mg PO HS ammonium lactate 12 % cream 1 applic topical BID clozapine 100 mg tablet 100 mg PO HS citalopram 20 mg tablet 20 mg PO DAILY fluticasone propion-salmeterol 250-50 mcg/dose blister with device 1 inh inhalation BID diltiazem HCl 120 mg capsule,extended release 24hr 120 mg PO DAILY furosemide 40 mg tablet 40 mg PO BID lorazepam 0.5 mg tablet 0.5 mg PO BID lisinopril 2.5 mg tablet 2.5 mg PO DAILY metformin 500 mg tablet 500 mg PO DAILY trazodone 50 mg tablet 50 mg PO HS oxybutynin chloride 10 mg tablet extended release 24hr 10 mg PO DAILY pantoprazole 40 mg tablet,delayed release (DR/EC) 40 mg PO DAILY metoprolol succinate 25 mg tablet extended release 24 hr 25 mg PO DAILY zolpidem 5 mg tablet 5 mg PO HS cholecalciferol (vitamin D3) 125 mcg (5,000 unit) tablet 5,000 unit PO DAILY sennosides [Corine-artie] 8.6 mg tablet 8.6 mg PO DAILY docusate sodium 100 mg capsule 100 mg PO DAILY polyethylene glycol 3350 [Gavilax] 17 gram/dose powder 17 g PO DAILY aripiprazole 10 mg tablet 10 mg PO HS Abilify Maintena 400 mg suspension,extended rel recon 400 mg IM Q4W magnesium hydroxide [Milk of Magnesia] 400 mg/5 mL suspension 15 - 30 ml PO QHS PRN Stand Alone Forms: My[employer] Info Instructions
--- NOTE | 2022-11-06 18:49 | ED.NURSE ---
EDT assisting pt with eating due to bilateral broken arms.
--- NOTE | 2022-11-06 18:53 | ED.NURSE ---
dr. mahoney placed orthoglass splint R arm, sling applied.
== END 2022-11-06 19:14 | disposition short-term general hospital (02) ==
PROVIDERS: Emergency Provider Family Medicine; PCP Family Medicine
DX: T84.112A Breakdown (mechanical) of internal fixation device of bone of right forearm, initial encounter (principal)
CPT/HCPCS: 73090; 99283; 99284

== ENCOUNTER 2022-11-06 18:59 | Outpatient (CLI) | payer MEDICARE, MEDICAID, SELFPAY | END 2022-11-06 19:00 | disposition home or self-care (01) | LOC: AMB 11-07 10:48 | PROVIDERS: PCP Family Medicine; Visit Provider Family Medicine | DX: T84.122A Displacement of internal fixation device of bone of right forearm, initial encounter (principal) | CPT/HCPCS: A0425; A0428; A0429 ==

== ENCOUNTER 2023-01-24 10:31 | Outpatient (CLI) | payer MEDICARE, MEDICAID, SELFPAY | END 2023-01-24 10:32 | disposition home or self-care (01) | LOC: AMB 01-26 15:55 | PROVIDERS: PCP Family Medicine; Visit Provider Internal Medicine | DX: R53.1 Weakness (principal); D64.9 Anemia, unspecified | CPT/HCPCS: A0425; A0429 ==

== ENCOUNTER 2023-11-20 15:31 | Emergency (ER) | payer MEDICARE, MEDICAID, SELFPAY ==
[2023-11-20] VITALS (11 sets, daily range): BP systolic 121–147; BP diastolic 60–90; PULSE 64–94; RESP 18; TEMP 36.1; O2SAT 93–98; BMI 39.7
--- NOTE | 2023-11-20 16:16 | ED.GENADULT ---
HPI - General Adult General Date Seen: 11/20/23 Chief complaint: GI Bleed Stated complaint: Rectal bleeding/severe hemorroids Time Seen by Provider: 11/20/23 15:46 Source: patient and family Mode of arrival: ambulatory Limitations: no limitations History of Present Illness HPI narrative: Patient is a 68-year-old woman, [place] resident, here with her sister for evaluation of rectal bleeding. This is apparently not a new problem for her, she has had significant rectal bleeding from internal hemorrhoids in the past, most recently they think about a year ago. She reports that she has had otherwise unremarkable colonoscopies over the years. Her sister says that they had her on a probiotic and kefir and she had not had problems since starting that but recently she has not been using the kefir, and her sister wonders if that might be the problem today. She went to the bathroom earlier today and there was reportedly quite a bit of blood in the toilet and around the toilet, to the point that they ended up throwing away her shoes. She feels quite sure that it is not vaginal bleeding. She denies rectal pain or abdominal pain at this time. She is not anticoagulated. She denies problems with constipation, does not spend a lot of time on the toilet. Related Data Home Medications ?Medication ?Instructions ?Recorded ?Confirmed albuterol sulfate 90 mcg/actuation 2 puff inhalation QID PRN 10/11/22 11/20/23 aerosol inhaler ammonium lactate 12 % topical cream 1 applic topical BID 10/11/22 11/20/23 aripiprazole 10 mg tablet 10 mg PO HS 10/11/22 11/20/23 aripiprazole 400 mg intramuscular 400 mg IM Q3W 10/11/22 11/20/23 suspension,extended release (Abilify Maintena) atorvastatin 20 mg tablet 20 mg PO HS 10/11/22 11/20/23 cholecalciferol (vitamin D3) 125 5,000 unit PO DAILY 10/11/22 10/11/22 mcg (5,000 unit) tablet citalopram 20 mg tablet 20 mg PO DAILY 10/11/22 11/20/23 clozapine 100 mg tablet 75 mg PO HS 10/11/22 11/20/23 diltiazem HCl 120 mg 60 mg PO Q12H 10/11/22 11/20/23 capsule,extended release 24 hr docusate sodium 100 mg capsule 200 mg PO BID PRN 10/11/22 11/20/23 fluticasone 250 mcg-salmeterol 50 1 inh inhalation BID 10/11/22 10/11/22 mcg/dose blistr powdr for inhalation furosemide 40 mg tablet 20 mg PO BID 10/11/22 11/20/23 lisinopril 2.5 mg tablet 2.5 mg PO DAILY 10/11/22 11/20/23 lorazepam 0.5 mg tablet 0.5 mg PO BID 10/11/22 10/11/22 magnesium hydroxide 400 mg/5 mL 15 - 30 ml PO QHS PRN 10/11/22 10/11/22 oral suspension (Milk of MagnSurreal Ink) metformin 500 mg tablet 500 mg PO DAILY 10/11/22 10/11/22 metoprolol succinate 25 mg 25 mg PO DAILY 10/11/22 11/20/23 tablet,extended release 24 hr oxybutynin chloride 10 mg 10 mg PO DAILY 10/11/22 11/20/23 tablet,extended release 24 hr pantoprazole 40 mg tablet,delayed 40 mg PO DAILY 10/11/22 11/20/23 release polyethylene glycol 3350 17 17 g PO DAILY 10/11/22 10/11/22 gram/dose oral powder (Gavilax) sennosides 8.6 mg tablet (Corine-artie) 8.6 mg PO DAILY 10/11/22 10/11/22 trazodone 50 mg tablet 50 mg PO HS 10/11/22 11/20/23 zolpidem 5 mg tablet 5 mg PO HS 10/11/22 10/11/22 acetaminophen 500 mg capsule 1,000 mg PO Q6H PRN 11/20/23 11/20/23 fluticasone furoate 100 1 inh inhalation DAILY 11/20/23 11/20/23 mcg-vilanterol 25 mcg/dose inhalation powder (Breo Ellipta) Allergies Allergy/AdvReac Type Severity Reaction Status Date / Time No Known Drug Allergies Allergy Verified 11/20/23 15:50 Review of Systems Status of ROS: Reports: 6 or more systems reviewed and unremarkable except as noted in History and below [facility] Medical History Insomnia ?G47.00 - Insomnia, unspecified (ICD-10) History of lung cancer ?Z85.118 - Personal history of other malignant neoplasm of bronchus and lung (ICD-10) Asthma ?J45.909 - Unspecified asthma, uncomplicated (ICD-10) Diastolic heart failure ?I50.30 - Unspecified diastolic (congestive) heart failure (ICD-10) Schizophrenia ?F20.9 - Schizophrenia, unspecified (ICD-10) Surgical History History of open reduction and internal fixation (ORIF) procedure (10/16/22) ?Z98.890 - Other specified postprocedural states (ICD-10) History of open reduction and internal fixation (ORIF) procedure (10/10/22) ?Z98.890 - Other specified postprocedural states (ICD-10) Social History Smoking Status: Former smoker How often do you have a drink containing alcohol: never AUDIT-C Alcohol total score: 0 Non-prescribed substance use: denies use service: No Exam Narrative: Exam Narrative: Vital signs as noted above. In general, an alert, well-appearing patient. Head: Normocephalic, atraumatic. Eyes: Pupils are equal reactive. Extraocular movements are full. Conjunctivae are normal. ENT: Mucous membranes are moist. Throat is normal. Neck: Supple without lymphadenopathy. Heart: Regular rate and rhythm. No murmur or rub. Lungs: Clear bilaterally. No increased work of breathing, crackles or wheezes. Abdomen: Soft and nontender. Rectal: She has few tiny external hemorrhoids. Digital exam shows no bright red blood, she does have palpable internal hemorrhoids. Extremities: Well perfused. No edema. No calf tenderness. Pulses intact. Neurologic: Patient is alert and oriented to person and place. Speech is fluent. Face is symmetric. Moves all extremities equally. Affect: Normal. Skin: Warm and dry. Well perfused. Const: Vital Signs, click to edit/add: Vital Signs - 24 hr 11/20/23 15:50 11/20/23 16:17 11/20/23 16:18 Temperature 97 F L Pulse Rate 75 81 Pulse Rate [Pulse Oximeter] 94 Respiratory Rate 18 Blood Pressure 121/60 Blood Pressure [Ri ght Upper Arm] 135/66 Pulse Oximetry 94 96 93 Oxygen Delivery Me thod Room Air 11/20/23 16:30 11/20/23 16:31 11/20/23 16:45 Temperature Pulse Rate 67 75 79 Pulse Rate [Pulse Oximeter] Respiratory Rate Blood Pressure 134/69 Blood Pressure [Ri ght Upper Arm] Pulse Oximetry 94 96 95 Oxygen Delivery Me thod 11/20/23 16:46 11/20/23 17:00 11/20/23 17:02 Temperature Pulse Rate 69 71 64 Pulse Rate [Pulse Oximeter] Respiratory Rate Blood Pressure 147/70 H 139/82 Blood Pressure [Ri ght Upper Arm] Pulse Oximetry 97 98 96 Oxygen Delivery Me thod 11/20/23 17:15 11/20/23 17:17 Temperature Pulse Rate 80 76 Pulse Rate [Pulse Oximeter] Respiratory Rate Blood Pressure 147/90 H Blood Pressure [Ri ght Upper Arm] Pulse Oximetry 97 96 Oxygen Delivery Me thod Documenting provider has reviewed patient's vital signs: yes Course Course ED Course: Patient presents with 1 episode of bright red blood per rectum and known internal hemorrhoids. Her vital signs are normal, there is no evidence of active bleeding right now, I did send a fecal occult blood and will check a hemoglobin and coags. If she does not have any further episodes of bleeding, I think it be reasonable as send her home and I did recommend colorectal surgery follow-up for her. Patient continues to feel well, no further episodes of bleeding. Hemoglobin is 11.2, her most recent hemoglobins were quite low in the eights, but this was at the time of an open fracture. The last real baseline we have was a couple of years ago was about 11.7, so I feel she is pretty close to her baseline. Coags were normal. Fecal occult blood was positive. At this time I think it is reasonable to let her go home. I did give her the phone number for Colorectal surgery Clinic in [place]. I think that is a good next step for her to decide whether she needs further evaluation in the form of colonoscopy or flex sig and to discuss banding if that seems like a good option for her. If she has recurrent bleeding, melena, abdominal pain fevers etcetera return to the ER. Vital Signs Vital signs: Initial Vital Signs Temperature 97 F L 11/20/23 15:50 Temperature Source Temporal Artery Scan 11/20/23 15:50 Pulse Rate 94 11/20/23 15:50 Respiratory Rate 18 11/20/23 15:50 Blood Pressure 135/66 11/20/23 15:50 Blood Pressure Mean 89 11/20/23 15:50 Blood Pressure Position Sitting 11/20/23 15:50 Pulse Oximetry 94 11/20/23 15:50 Oxygen Delivery Method Room Air 11/20/23 15:50 Vital Signs Temperature 97 F L 11/20/23 15:50 Pulse Rate 94 11/20/23 15:50 Respiratory Rate 18 11/20/23 15:50 Blood Pressure 135/66 11/20/23 15:50 Pulse Oximetry 94 11/20/23 15:50 Oxygen Delivery Method Room Air 11/20/23 15:50 Temperature 97 F L 11/20/23 15:50 Pulse Rate 76 11/20/23 17:17 Respiratory Rate 18 11/20/23 15:50 Blood Pressure 147/90 H 11/20/23 17:17 Pulse Oximetry 96 11/20/23 17:17 Oxygen Delivery Method Room Air 11/20/23 15:50 Medical Decision Making Lab Data Labs: Lab Results 11/20/23 11/20/23 11/20/23 Range/Units 16:17 16:22 16:22 WBC 4.94 (4.50-11.00) K/uL RBC 3.84 L (4.00-5.20) m/uL Hgb 11.2 L (12.0-16.0) gm/dL Hct 35.6 (33.0-51.0) % MCV 93 (80-100) fL MCH 29 (26-34) pg MCHC 32 (32-36) gm/dL RDW Coeff of Emily 13.3 (11.5-15.5) % Plt Count 168 (140-440) K/uL Neut % (Auto) 67.6 (42.0-72.0) % Lymph % (Auto) 24.5 (20-44) % Eaton % (Auto) 7.5 (0.0-11.0) % Eos % (Auto) 0.0 (0.0-7.0) % Baso % (Auto) 0.2 (0.0-3.0) % Neut # (Auto) 3.34 (1.7-7.0) K/uL Lymph # (Auto) 1.21 (0.90-2.90) K/uL Eaton # (Auto) 0.40 (0.00-0.90) K/UL Eos # (Auto) 0.00 (0.00-0.50) K/uL Baso # (Auto) 0.01 (0.00-0.30) K/uL Abs Immat Gran (auto) 0.01 (0.00-0.30) K/uL Imm/Tot Granulo (auto) 0.2 % INR 0.98 (0.91-1.10) APTT 30 (23-33) Seconds Stool Occult Blood Positive A Cancelled (Negative) Discharge Plan Discharge Clinical Impression: Painless rectal bleeding Patient Disposition: Home w/ Parent or Adult Condition: Stable Instructions: Rectal Bleeding (ED) Additional Instructions: Your hemoglobin today is 11.2. Your previous hemoglobins at the time of your arm injury were low but prior to that your hemoglobin was 11.7, so today is fairly similar. I would recommend follow up with a colorectal surgeon to see if further investigation is needed, and to discuss possibility of banding of your internal hemorrhoids. [facility], they have a Clinic in [place], phone number [phone]. If you develop significant abdominal pain, black tarry stools, further significant rectal bleeding, fevers, or other new or worsening symptoms you should return to the emergency department. Prescriptions: No Action albuterol sulfate 90 mcg/actuation HFA aerosol inhaler 2 puff inhalation QID PRN atorvastatin 20 mg tablet 20 mg PO HS ammonium lactate 12 % cream 1 applic topical BID clozapine 100 mg tablet 75 mg PO HS citalopram 20 mg tablet 20 mg PO DAILY fluticasone propion-salmeterol 250-50 mcg/dose blister with device 1 inh inhalation BID diltiazem HCl 120 mg capsule,extended release 24hr 60 mg PO Q12H furosemide 40 mg tablet 20 mg PO BID lorazepam 0.5 mg tablet 0.5 mg PO BID lisinopril 2.5 mg tablet 2.5 mg PO DAILY metformin 500 mg tablet 500 mg PO DAILY trazodone 50 mg tablet 50 mg PO HS oxybutynin chloride 10 mg tablet extended release 24hr 10 mg PO DAILY pantoprazole 40 mg tablet,delayed release (DR/EC) 40 mg PO DAILY metoprolol succinate 25 mg tablet extended release 24 hr 25 mg PO DAILY zolpidem 5 mg tablet 5 mg PO HS cholecalciferol (vitamin D3) 125 mcg (5,000 unit) tablet 5,000 unit PO DAILY sennosides [Corine-artie] 8.6 mg tablet 8.6 mg PO DAILY docusate sodium 100 mg capsule 200 mg PO BID PRN polyethylene glycol 3350 [Gavilax] 17 gram/dose powder 17 g PO DAILY aripiprazole 10 mg tablet 10 mg PO HS Abilify Maintena 400 mg suspension,extended rel recon 400 mg IM Q3W magnesium hydroxide [Milk of Magnesia] 400 mg/5 mL suspension 15 - 30 ml PO QHS PRN fluticasone furoate-vilanterol [Breo Ellipta] 100-25 mcg/dose blister with device 1 inh inhalation DAILY acetaminophen 500 mg capsule 1,000 mg PO Q6H PRN Follow Up/Referrals: Yecenia Thrasher MD [Primary Care Provider] - Stand Alone Forms: [facility] Info Instructions
[2023-11-20 16:24] LABS: Basophils Absolute Auto 0.01 K/uL (0.00-0.30); Basophils Percent Auto 0.2 % (0.0-3.0); Hematocrit 35.6 % (33.0-51.0); Hemoglobin* 11.2 gm/dL (12.0-16.0); Immature Granulocytes Abs Auto 0.01 K/uL (0.00-0.30); Immature Granulocytes Pct Auto 0.2 %; Lymphocytes Absolute Auto 1.21 K/uL (0.90-2.90); Lymphocytes Percent Auto 24.5 % (20-44); Mean Corpuscular HGB Conc 32 gm/dL (32-36); Mean Corpuscular Hemoglobin 29 pg (26-34); Mean Corpuscular Volume 93 fL (80-100); Monocytes Percent Auto 7.5 % (0.0-11.0); Neutrophils Absolute Auto 3.34 K/uL (1.7-7.0); Neutrophils Percent Auto 67.6 % (42.0-72.0); Platelet Count* 168 K/uL (140-440); RDW Coefficient of Variation % 13.3 % (11.5-15.5); Red Blood Count 3.84 m/uL (4.00-5.20); Slide Review Reflex No; White Blood Count* 4.94 K/uL (4.50-11.00)
[2023-11-20 16:38] LABS: INR 0.98 (0.91-1.10); Partial Thromboplastin Time* 30 Seconds (23-33); Prothrombin Time 13.6 Seconds
[2023-11-20 16:51] LABS: Fecal Occult Blood* Positive (Negative)
--- OUTSIDE RECORDS SUMMARY | 2023-11-20 16:58 | XMS_ITS | Clinical Summary ---
Author Organization [facility] Address [address] [place] [address] Care Team Providers Care Clinical Rn Manager Name Role Phone Elsewhere, Pcp Primary Care Provider Unavailabl e Source Comments Patient records contain information from all sites at [facility]. For routine questions regarding patient records, call [phone] during business hours, M-F 8:00 AM - 5:00 PM Central Time. Record requests for emergency care only can be directed to [phone] at any time.[facility] Allergies No known active allergies Medications Medication Sig Dispensed Refills Start Date End Date Status acetaminophen (TYLENOL) 500 mg tablet Take 1,000 mg by mouth 3 (three) times a day. 08/16/2016 Active albuterol (PROVENTIL HFA,VENTOLIN HFA) 90 mcg/actuation inhaler Inhale 2 puffs every 4 (four) hours as needed for wheezing or shortness of breath. 04/23/2018 Active citalopram (CeleXA) 20 mg tablet Take 20 mg by mouth daily. 05/26/2018 Active dilTIAZem SR (CARDIZEM SR) 60 mg 12 hr capsule Take 60 mg by mouth 2 (two) times a day. 04/23/2018 Active fluticasone (FLONASE) 50 mcg/actuation nasal spray Administer 2 sprays into each nostril at bedtime. 5 05/11/2018 Active metFORMIN (GLUCOPHAGE) 500 mg tablet Take 500 mg by mouth daily with breakfast. Active ADVAIR DISKUS 250-50 mcg/act diskus inhaler Inhale 1 puff 2 (two) times a day. 3 06/12/2018 Active ammonium lactate (AMLACTIN) 12 % cream Apply 1 Application topically 2 (two) times a day. Apply to callus on feet. Active atorvastatin (LIPITOR) 20 mg tablet Take 20 mg by mouth at bedtime. Active cloZAPine (CLOZARIL) 100 mg tablet Take 100 mg by mouth daily. Active cloZAPine (CLOZARIL) 50 mg tablet Take 50 mg by mouth at bedtime. Active docusate sodium (COLACE) 100 mg capsule Take 100 mg by mouth daily. Active lisinopriL (PRINIVIL,ZESTRI L) 2.5 mg tablet Take 2.5 mg by mouth daily. Active metoprolol succinate (TOPROL-XL) 25 mg 24 hr tablet Take 25 mg by mouth daily. Do not crush or chew. Active oxyBUTYnin (DITROPAN-XL) 10 mg 24 hr tablet Take 10 mg by mouth daily. Active pantoprazole (PROTONIX) 40 mg EC tablet Take 40 mg by mouth every morning before breakfast. Active polyethylene glycol (MIRALAX) 17 gram powder packet Take 17 g by mouth daily. Dissolve each 17 g dose in 240 mLs (8 ounces) of beverage. Active sennosides (SENOKOT) 8.6 mg tablet Take 8.6 mg by mouth daily. Active traZODone (DESYREL) 50 mg tablet Take 50 mg by mouth at bedtime. Active cholecalciferol (VITAMIN D3) 125 mcg (5,000 Unit) capsule Take 125 mcg by mouth daily. Active furosemide (LASIX) 20 mg tablet Take 1 tablet (20 mg total) by mouth 2 (two) times a day. 180 tablet 01/30/2023 Active ARIPiprazole (Abilify Maintena) 400 mg injection Inject 1 each (400 mg total) intramuscularly every 28 (twenty-eight) days. 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 05/26/2018 Apnea Sleep Obstructive 05/15/2018 Malignant Neoplasm Of Lung Adenocarcinoma Left 0 05/05/2018 Schizophrenia 05/05/2018 Diabetes Mellitus Type 2 05/05/2018 Nonrheumatic Mitral Valve Insufficiency 08/28/19 18 Edema Localized 09/27/2016 Metabolic Syndrome 06/12/2016 Asthma Mild Intermittent 08/11/2015 Obesity Body Mass Index 30-39.9 Adult 12/26/2014 Social History Tobacco Use Types Packs/Day Years Used Date Smoking Tobacco: Former Cigarettes 1 25 1 980 - 2004 Smokeless Tobacco: Never Tobacco Cessation:Counseling Given: No Alcohol Use Standard Drinks/Week Comments No 0 (1 standard drink = 0.6 oz pur e alcohol) Nutrition Answer Date Recorded Nutrition: EVOO Fat Source Unknown 06/18 Nutrition: Servings of Fruits/Vegetables per Day Not on file 06/18/2020 Dental Answer Date Recorded Dental: Regular Dentist Unknown 06/18/19 21 Sex and Gender Information Value Date Recorded Sex Assigned at Not on file Gender Identity Not on file Sexual Orientation Not on file Last Filed Vital Signs Vital Sign Reading Time Taken Comments Blood Pressure 157/85 01/30/2023 8:15 AM CDT Pulse 98 01/30/2023 8:15 AM CDT Temperature 36.7 ??C (98.1 ??F) 01/30/2023 8:15 AM CD T Respiratory Rate 18 01/30/2023 8:15 AM CDT Oxygen Saturation 97% 01/30/2023 8:15 AM CDT Inhaled Oxygen Concentration - - Weight 104 kg (228 lb 13.4 oz) 01/29/2023 4:21 A M CDT Height 160 cm (5' 3) 01/24/2023 3:05 PM CDT Body Mass Index 40.54 01/24/2023 3:05 PM CDT Plan of Treatment Health Maintenance Due Date Last Done Comments Bone Density Scan (Osteoporo sis Screen) 1955 CT Colonography 1955 Diabetic Office Visit with F oot Exam 1955 Dilated Eye Exam 1955 FIT 1955 Hemoglobin A1C 1955 Hepatitis C Screening 1955 Office Visit for Blood Press ure Check / Re-check 1955 Urine Albumin 1955 Zoster Vaccines (1 of 2) 2005 Depression Screening (Annual PHQ-2) 04/29/2023 Fall Risk Screen (Annual) 04/29/2023 COVID-19 Vaccine (6 - 2022-2 4 season) 2023 03/14/2023, 02/22/2022, 02/16/2021, Additional history exists Mammogram 08/21/2023 08/20/2022, 07/29, 04/07/2021, Additional history exists Influenza Vaccine (#1) 2024 , 02/22/2022, 04/07/2021, Additional history exists Creatinine Level (Kidney Fun ction Test) 03/14/2024 03/14/2023, 02/15/2023, 01/30/2023, Additional history exists Potassium Level 03/14/2024 03/14/2023, 01/28, 01/30/2023, Additional history exists Sodium Level 03/14/2024 03/14/2023, 01/28, 01/30/2023, Additional history exists Cologuard 06/12/2025 06/12/2022 Lipid (Cholesterol) Screening 05/25/2027, 06/18/2021, 06/16/2021, Additional history exists DTaP,Tdap,and Td Vaccines (2 - Td or Tdap) 10/10/2032 10/10/2022 Colonoscopy 01/25/2033 01/25/2023, 12/29, 05/05/2021, Additional history exists Colorectal Cancer Screening 01/25/2033 Cervical Cancer Screening Discontinued 01/10/2021 Pneumococcal vaccine (65+ years) Completed 05/25/2022, 11/04/2020, 01/01/2015 Glucose Test for Med Monitoring Discontinued 03/14/2023, 02/15/2023, 01/30/2023, Additional history exists Procedures Procedure Name Priority Date/Time Associated Diagnosis Comments BASIC METABOLIC PANEL, S/P Routine 01/30/2023 7:10 AM CDT COLONOSCOPY Routine 01/25/2023 8:58 AM CDT from Last 3 Months or Most Recently Relevant to Health Maintenance Results * Basic Metabolic Panel (01/30/2023 7:10 AM CDT) Potassium, S 4.4 3.6 - 5.2 mmol/L 01/30/2023 8:32 AM CDT DTL Sodium, S 141 135 - 145 mmol/L 01/30/2023 8:32 AM CDT DTL Chloride, S 107 98 - 107 mmol/L 01/30/2023 8:32 AM CDT DTL Bicarbonate, S 25 22 - 29 mmol/L 01/30/2023 8:32 AM CDT DTL Anion Gap 9 7 - 15 01/30/2023 8:32 AM CDT DTL BUN (Blood Urea Nitrogen), S 10 6 - 21 mg/dL 01/30/2023 8:32 AM CDT DTL Creatinine 0.67 0.59 - 1.04 mg/dL 01/30/2023 8:32 AM CDT DTL Estimated GFR (eGFR) >90 >=60 mL/min/BSA 01/30/2023 8:32 AM CDT DTL Comment: Estimated GFR calculated using the 2020 CKD_EPI creatinine equation. Calcium, Total, S 8.8 8.8 - 10.2 mg/dL 01/30/2023 8:32 AM CDT DTL Glucose, S 106 70 - 140 mg/dL 01/30/2023 8:32 AM CDT DTL Blood (Blood, Venous) 01/30/2023 7:10 AM CDT 01/30/2023 8:12 AM CDT Beny Leggett M.D. LAB BLOOD ADD-O N [facility] [address] [place] [address], [facility] DTL [facility] [address] [place] [address] from Last 3 Months or Most Recently Relevant to Health Maintenance Advance Directives For more information, please contact: [phone] * Full Code (Latest Code Status on File) Date Activated Date Inactivated Comments 01/24/2023 3:37 PM 01/30/2023 11:50 AM Question Answer Comments Full Code: Discussed * Full Code Date Activated Date Inactivated Comments 2021 2:59 PM 04/28/2021 7:13 PM Question Answer Comments Full Code: Discussed * Full Code Date Activated Date Inactivated Comments 08/07/2018 4:15 PM 08/11/2018 6:54 PM Question Answer Comments Full Code: Not Discussed Due to: Patient not available Assumed gi mani recent surgical procedure * Full Code Date Activated Date Inactivated Comments 08/07/2018 4:15 PM 08/07/2018 4:15 PM Question Answer Comments Full Code: Not Discussed Due to: Patient not available Care Teams Clinical Rn Manager Relationship Specialty Start Date End Date Elsewhere, Pcp PCP - General Internal Medicine 01/24/23
--- OUTSIDE RECORDS SUMMARY | 2023-11-20 16:58 | XMS_ITS | Clinical Summary ---
Author Organization [facility] Address [place], [place] [address] Care Team Providers Care Plastic Finisher Name Role Phone Yecenia Thrasher MD Primary Care Provide r Allergies No known active allergies Medications Medication Sig Dispensed Refills Start Date End Date Status albuterol HFA (PRO-AIR; VENTOLIN; PROVENTIL) 90 mcg/actuation inhaler Inhale 2 Puffs by mouth 4 times daily if needed for Shortness of Breath 1st choice. Active ferrous gluconate 324 mg (37 mg iron) tabletIndications: Iron deficiency anemia due to chronic blood loss Take 1 Tablet by mouth once daily with a meal. 90 Tablet 3 02/16/20 23 Active lisinopriL (PRINIVIL; ZESTRIL) 2.5 mg tabletIndications: Hypertension, unspecified type TAKE 1 TABLET BY MOUTH DAILY 28 Tablet 12 03/21/20 23 Active atorvastatin (LIPITOR) 20 mg tabletIndications: Hyperlipidemia, unspecified hyperlipidemia type TAKE 1 TABLET BY MOUTH EVERY NIGHT AT BEDTIME 28 Tablet 12 03/21/20 23 Active cholecalciferol (VITAMIN D3) 5,000 unit capsuleIndications :Controlled type 2 diabetes mellitus without complication, without long-term current use of insulin (HC) TAKE 1 CAPSULE BY MOUTH DAILY 28 Capsule 12 03/21/20 23 Active dilTIAZem SR (CARDIZEM SR) 60 mg extended release 12 hr capsuleIndications :HTN (hypertension) TAKE 1 CAPSULE BY MOUTH TWICE DAILY 56 Capsule 11 03/25/20 23 Active metoprolol succinate (TOPROL XL) 25 mg Sustained-Release tabletIndications: Hypertension, unspecified type Take 1 Tablet (25 mg) by mouth once daily. 90 Tablet 3 03/22/20 23 Active pantoprazole (PROTONIX) 40 mg delayed-release tabletIndications: Chronic GERD Take 1 Tablet (40 mg) by mouth once daily. 90 Tablet 3 03/22/20 23 Active furosemide (LASIX) 20 mg tabletIndications: Bilateral lower extremity edema Take 1 Tablet (20 mg) by mouth two times daily. 180 Tablet 3 04/09/20 23 Active CPAPIndications:OS A (obstructive sleep apnea) CPAP machine for home use at pressure 15cmw epr 3, full face mask x1/3month with a full face cushion x1/mo 1 Each 11 05/01/19 24 Active lactobacillus rhamnosus, GG, (CULTURELLE) 10 billion cell capsuleIndications :Chronic diarrhea Take 1 Capsule by mouth once daily. 90 Capsule 3 06/06/19 24 Active acetaminophen (TYLENOL EXTRA STRGTH) 500 mg tabletIndications: Status post open reduction and internal fixation (ORIF) of fracture Take 2 Tablets (1,000 mg) by mouth every 6 hours if needed for Pain. 06/06/19 24 Active medication order composerIndication s:Acute diarrhea Kefir, 1-3 cups (237-710 mL) per day 06/14/19 24 Active medication order composerIndication s:Loose stools Patient can have 1/2 cup of kefir daily brought in by her sister Naomi 07/04/19 24 Active ARIPiprazole (Abilify) 10 mg tabletIndications: Other schizophrenia (HC) Take 1 Tablet (10 mg) by mouth at bedtime. 28 Tablet 12 08/19/19 24 Active citalopram (CELEXA) 20 mg tabletIndications: Other schizophrenia (HC) Take 1 Tablet (20 mg) by mouth every morning. 28 Tablet 12 08/19/19 24 Active traZODone (DESYREL) 50 mg tabletIndications: Other schizophrenia (HC) Take 1 Tablet (50 mg) by mouth at bedtime. 28 Tablet 12 08/19/19 24 Active cloZAPine (CLOZARIL) 25 mg tabletIndications: Other schizophrenia (HC) Take 3 Tablets (75 mg) by mouth at bedtime. 84 Tablet 12 08/19/19 24 Active fluticasone furoate-vilanteroL (BREO ELLIPTA) 100-25 mcg/dose inhalation powderIndications: Chronic obstructive pulmonary disease, unspecified COPD type (HC) Inhale 1 Puff by mouth once daily. Rinse mouth after use 180 Each 3 08/28/19 24 Active ammonium lactate 12% (LACHYDRIN) 12 % creamIndications:C allus of foot Apply topically to affected area(s) two times daily. Apply to both feet twice daily. 385 g 5 10/05/19 24 Active ARIPiprazole (Abilify Maintena) 400 mg extended release injectionIndicatio ns:Paranoid schizophrenia (HC) Inject 2 mL (400 mg) intramuscular every 3 weeks. 2 mL 11 10/22/19 24 Active oxybutynin XL (DITROPAN XL) 10 mg CR tabletIndications: Urinary urgency TAKE 1 TABLET BY MOUTH DAILY 90 Tablet 10/26/19 24 Active Breo Ellipta 100-25 mcg/dose inhalation powderIndications: Chronic obstructive pulmonary disease, unspecified COPD type (HC) Inhale 1 Puff by mouth once daily. 60 Each 1 11/08/19 24 Active oxybutynin XL (DITROPAN XL) 10 mg CR tabletIndications: Urinary urgency TAKE 1 TABLET BY MOUTH DAILY 28 Tablet 6 03/21/20 23 024 Discontinued ARIPiprazole (Abilify Maintena) 400 mg extended release injectionIndicatio ns:Other schizophrenia (HC) Inject 2 mL (400 mg) intramuscular every 3 weeks. Further refills will be prescribed during an appointment 2 mL 2 09/24/19 24 024 Discontinued(*M edication adjustment) Breo Ellipta 100-25 mcg/dose inhalation powderIndications: Chronic obstructive pulmonary disease, unspecified COPD type (HC) Inhale 1 Puff by mouth once daily. 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 Delmer Sheth 03/05/2023 S/P Right distal radius hard neely removal and ORIF DOS:11/07/2022 Dr.Kamil Sheth 03/05/2023 Forearm fractures, both bones, closed, right, se quela 11/09/2022 Status post open reduction a nd internal fixation (ORIF) of fracture 11/08/2022 Overview: Right radius/ulna. Diabetes mellitus type 2, noninsulin dependent 0 11/06/2022 Chronic heart failure with p reserved ejection fraction (HFpEF) 11/06/2022 Hypertension 11/06/2022 GERD (gastroesophageal reflux disease) Chronic anemia 11/06/2022 Hyperlipemia 11/06/2022 Failed right forearm ORIF 11/06/2022 Closed olecranon fracture, left, initial encount er 10/17/2022 Radial head dislocation, left, initial encounter 10/17/2022 Cellulitis of left lower extremity 07/28/2022 Chronic obstructive pulmonar y disease, unspecified COPD type 03/13/2022 COVID-19 virus infection 06/30/2021 Normocytic anemia 06/30/2021 Bilateral lower extremity edema 06/23/2021 Generalized muscle weakness 06/18/2021 Vitamin D deficiency 06/18/2021 history of small bowel obstruction 05/19/2021 DUB (dysfunctional uterine bleeding) 05/19/2021 Polyneuropathy due to type 2 diabetes mellitus 1 06/25/2020 Controlled substance agreement signed 02/20/2021 Overview: 12/26/20 Minna Deleon MD/psychiatry Psychophysiological insomnia 11/24/2018 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 Delmer Sheth 11/19/2022 03/05/2023 Insomnia 11/06/2022 10/22/2023 Acute diastolic heart failure 07/28/2022 11/06/2022 DM2 (diabetes mellitus, type 2) 06/30/2021 11/06/2022 Symptomatic anemia 05/19/2021 Asthma 11/06/2022 Encounters Date Type Department Care Team Description 11/20/2023 Nurse Triage [facility] [address] [place] [address] Yecenia Thrasher MD Rectal Problem 11/06/2023 Refill [facility] [address] [place] [address] Yecenia Thrasher MD Refill Request (Breo Ellipta) 11/04/2023 Telephone [facility] [address] [place] [address] Fernando Couch MD REMS 10/30/2023 3:30 PM CDT Orders Only [facility] [address] [place] [address] Lab 10/30/2023 Travel 10/24/2023 Refill [facility] [address] [place] [address] Yecenia Thrasher MD Refill Request (Oxybutynin Xl) 10/22/2023 9:00 AM CDT Office Visit [facility] [address] [place] [address] Fernando Couch MD Follow Up; Medication Management (feeling, fine) 10/22/2023 Travel 10/07/2023 Refill [facility] [address] [place] [address] Yecenia Thrasher MD Refill Request; breo ellipta 10/07/2023 Telephone [facility] [address] [place] [address] Fernando Couch MD Lab (REM lab results) 10/07/2023 Refill [facility] [address] [place] [address] Yecenia Thrasher MD Refill Request (Ammonium LAC CREAM 12%) 10/03/2023 Orders Only [facility] Scanner 1 scan: (1-Ord) [facility], CBC WITH DIFFERENTIAL, 10/03/2023 10/03/2023 Refill [facility] [address] [place] [address] Yecenia Thrasher MD Refill Request (Lachydrin) 10/03/2023 Telephone [facility] [address] [place] [address] Fernando Couch MD Lab 09/25/2023 Telephone [facility] [address] [place] [address] Fernando Couch MD Prior Authorization (ARIPiprazole (Abilify Maintena) 400 mg extended release injection (APPROVED 08/26/2023-09/24/2024)) 09/25/2023 Telephone [facility] [address] [place] [address] Fernando Couch MD Medication Management 09/25/[address] [address] Fernando Couch MD Medication Management 09/18/2023 11:00 AM CDT Office Visit [address] [address] Fernando Couch MD Medication Management 09/18/2023 Travel 09/11/2023 Telephone [facility] [address] [place] [address] Fernando Couch MD REMS 09/09/[address] [address] Fernando Couch MD Follow Up (Increase in audible hallucinations ) 09/05/2023 Orders Only [facility] Scanner 1 scan: (1-Ord) [facility], MULTIPLE LAB RESULTS, 09/05/2023 08/29/2023 Telephone [facility] [address] [place] [address] Yecenia Thrasher MD Medication Management (/fluticasone furoate-vilanteroL (BREO ELLIPTA) 100-25 mcg/dose inhalation powder [[id number]] /) 08/28/2023 Telephone [facility] [address] [place] [address] Yecenia Thrasher MD Medication Management (fluticasone propion-salmeteroL (Advair Diskus) 250-50 mcg/Dose diskus inhaler) from Last 3 Months Immunizations Name Administration Dates Next Due COVID-19 Vaccine Spikevax (M oderna 50mcg/0.5mL) 12YO+ 7589-9900 Formula PF 03/14/2023 COVID-19 vaccine (Pfizer-Bio NTech 30mcg/0.3mL) 12YO+ BIVALENT PF, MDV 02/22/2022 COVID-19 vaccine (Pfizer-Bio NTech 30mcg/0.3mL) PF, MDV 07/29/2020,07/08/2020 Influenza RIV4 (Age 18+ Years) PRESERV FREE 06/27 Influenza, Inactivated AIIV4 (Age 65+ Years) Preserv Free 03/14/2023,02/22/2022,04/07/2021 Pneumococcal Conj 20-valent (Prevnar 20) 023 Pneumococcal Poly,23-Valent (Pneumovax) 11/05/19 21 Tdap 10/10/2022 Family History Medical History Relation Name Comments Alcoholism Father Diabetes Father Endometriosis Half-Sister Alcoholism Mother Depression Mother Other Sister hysterectomy Relation Name Status Comments Father Half-Sister Alive Mother Sister Alive Social History Tobacco Use Types Packs/Day Years Used Date Smoking Tobacco: Former Cigarettes Q uit: 2004 Smokeless Tobacco: Never Tobacco Cessation:Counseling Given: No Alcohol Use Standard Drinks/Week Comments No 0 (1 standard drink = 0.6 oz pure alcohol) Last in her 30s, sampled with family, did not ever even have a whole drink PHQ-2 Answer Date Recorded PHQ-2 TOTAL SCORE 1 10/22/2023 Social Connections Answer Date Recorded Frequency of Communication with Friends and Fami ly Not on file 07/29/2023 Financial Resource Strain Answer Date R ecorded Difficulty of Paying Living Expenses 3 05/25/2022 Difficulty of Paying Living Expenses Not on file 05/25/2022 Food Insecurity Answer Date Recorded Worried About Running Out of Food in the Last Ye ar 1 05/25/2022 Transportation Needs Answer Date Record ed Lack of Transportation (Medical) 1 05/25/2022 Housing Stability Answer Date Recorded Unable to Pay for Housing in the Last Year 1 05/25/2022 Sex and Gender Information Value Date Recorded Sex Assigned at Not on file Gender Identity Not on file Sexual Orientation Not on file Obstetrics History Para Term AB IAB SAB Ectopic Multiple Livin g Live Births 3 1 1 2 1 1 Date Outcome GA Total Labor Labor//3rd Weight Sex Type Anes PTL Domenica A1 A5 Name Clin AB AB 1984 Term Vag Living Last Filed Vital Signs Vital Sign Reading Time Taken Comments Blood Pressure 104/58 10/22/2023 9:03 AM CDT Pulse 84 10/22/2023 9:03 AM CDT Temperature 36.7 ??C (98 ??F) 09/18/2023 11: 46 AM CDT temporal Respiratory Rate 16 08/08/2023 11:4 0 AM CDT Oxygen Saturation 93% 08/08/2023 11: 40 AM CDT Inhaled Oxygen Concentration - - Weight 101.6 kg (224 lb) 10/22/2023 9:0 3 AM CDT Reported by Gabino Height 159.4 cm (5' 2.75) 07/26/2023 1 0:44 AM CDT Body Mass Index 40 07/26/2023 10:44 AM CDT Plan of Treatment Health Maintenance Due Date Last Done Comments Zoster (shingles) series for age 50+ (1 of 2) 2005 DEXA/DXA scan for age 65+ 2020 Medicare Wellness for age 65+ 11/05/2021 11/04/2020, 01/29/2019 COVID-19 vaccine series ( season) 2023 03/14/2023, 02/22/2022, 02/16/2021, Additional history exists Mammogram for age 45-75 08/21/2023 08/21/19 23, 04/07/2021, 01/19/2020 BMI (ht and wt on same day) for age 18+ 09/28/2023 09/27/2022, 08/22/2022, 08/14/2022, Additional history exists Influenza for age 65+ 12/29/2023 03/14/2023 , 02/22/2022, 04/07/2021, Additional history exists Depression screening for age 12+ 10/21/2024 10/22/2023, 09/18/2023, 08/19/2023, Additional history exists Fecal testing sDNA-FIT ([place]) for age 45-75 06/05/2025 06/05/2022 Lipids for age 45-75 09/17/2028 09/18/2023, 05/25/2022, 06/18/2021, Additional history exists Tetanus booster 10/10/2032 10/10/2022 Hepatitis C screening for ag e 18-79 Completed 05/30/2021 Pneumococcal series for age 65+ Completed , 11/04/2020 Tdap Completed 10/10/2022 Medical Devices Implanted Type Area Instrumentation Specialist Device Identifier Shelf Expiration Date Model / Serial / Lot Screw Locking 3.5 X 16 Implanted:Qty: 1 on 10/16/2022 by Delmer Sheth MD at [facility] Left: Arm [id number] / / Description:SCREW LOCKING 3. 5 X 16 Plate Olecranon 8h L 114mm Implanted:Qty: 1 on 10/16/2022 by Delmer Sheth MD at [facility] Left: Arm [id number] / / Description:PLATE OLECRANON 8H L 114MM Plate Strength 2.4mm 10 Hole Implanted:Qty: 1 on 10/16/2022 by Delmer Sheth MD at [facility] Left: Arm [id number] / / Description:PLATE STRENGTH 2 .4MM 10 HOLE Screw Locking 2.4 X 14 Implanted:Qty: 1 on 10/16/2022 by Delmer Sheth MD at [facility] Left: Arm [id number] / / Screw Locking 2.4 X 15 Implanted:Qty: 1 on 10/16/2022 by Delmer Sheth MD at [facility] Left: Arm [id number] / / Description:SCREW LOCKING 2. 4 X 15 Screw Locking 2.4 X 16 Implanted:Qty: 2 on 10/16/2022 by Delmer Sheth MD at [facility] Left: Arm [id number] / / Description:SCREW LOCKING 2. 4 X 16 Screw Cortex 2.7 X 16 Implanted:Qty: 1 on 10/16/2022 by Delmer Sheth MD at [facility] Left: Arm [id number] / / Description:SCREW CORTEX 2.7 X 16 Head Elbow Od22 Id12 Explor - [id number] Implanted:Qty: 1 on 10/16/2022 by Delmer Sheth MD at [facility] Left: Arm [employer] 06/30/2032 / / [id number] Stem Elbow 7x26mm Explor - [id number] Implanted:Qty: 1 on 10/16/2022 by Delmer Sheth MD at [facility] Left: Arm [employer] 09/08/2032 / / [id number] Screw 2.0 X 18 Implanted:Qty: 1 on 10/16/2022 by Delmer Sheth MD at [facility] Left: Arm [id number] / / Description:SCREW 2.0 X 18 Screw Bone 3.5x13mm Evos Small Cortex Slf Tppng - [id number] Implanted:Qty: 3 on 10/16/2022 by Delmer Sheth MD at [facility] Left: Arm [employer] [id number] / / Screw Bone 3.5x16mm Evos Small Cortex Slf Tppng - [id number] Implanted:Qty: 1 on 10/16/2022 by Delmer Sheth MD at [facility] Left: Arm [employer] [id number] / / Screw Locking 2.7 X 18 Implanted:Qty: 3 on 10/16/2022 by Delmer Sheth MD at [facility] Left: Arm [id number] / / Screw Locking 2.7 X 36 Implanted:Qty: 1 on 10/16/2022 by Delmer Sheth MD at [facility] Left: Arm [id number] / / Description:SCREW LOCKING 2. 7 X 36 Bone Matrix 5cc [place] [employer] m - [id number] Implanted:Qty: 1 on 11/07/2022 by Delmer Sheth MD at [facility] Right: Arm [employer] Sp[employer] 02/13/2025 [id number] / [id number] / Plate Strength 2.4mm 20 Hole Implanted:Qty: 1 on 11/07/2022 by Delmer Sheth MD at [facility] Right: Arm [id number] / / Description:PLATE STRENGTH 2 .4MM 20 HOLE Screw Locking 2.4 X 10 Implanted:Qty: 3 on 11/07/2022 by Delmer Sheth MD at [facility] Right: Arm [id number] / / Description:SCREW LOCKING 2. 4 X 10 Screw Locking 2.4 X 11 Implanted:Qty: 1 on 11/07/2022 by Delmer Sheth MD at [facility] Right: Arm [id number] / / Description:SCREW LOCKING 2. 4 X 11 Screw Locking 2.4 X 12 Implanted:Qty: 1 on 11/07/2022 by Delmer Sheth MD at [facility] Right: Arm [id number] / / Description:SCREW LOCKING 2. 4 X 12 Screw Cortex 2.4 X 10 Implanted:Qty: 1 on 11/07/2022 by Delmer Sheth MD at [facility] Right: Arm [id number] / / Description:SCREW CORTEX 2.4 X 10 Screw Cortex 2.4 X 12 Implanted:Qty: 1 on 11/07/2022 by Delmer Sheth MD at [facility] Right: Arm [id number] / / Description:SCREW CORTEX 2.4 X 12 Screw Bone 3.5x11mm Evos Small Cortex Slf Tppng - [id number] Implanted:Qty: 1 on 11/07/2022 by Delmer Sheht MD at [facility] Right: Arm [employer] [id number] / / Screw Bone 3.5x12mm Evos Small Cortex Slf Tppng - [id number] Implanted:Qty: 3 on 11/07/2022 by Delmer Sheth MD at [facility] Right: Arm [employer] [id number] / / Screw Bone 3.5x13mm Evos Small Cortex Slf Tppng - [id number] Implanted:Qty: 2 on 11/07/2022 by Delmer Sheth MD at [facility] Right: Arm [employer] [id number] / / Screw Bone 3.5x15mm Evos Small Cortex Slf Tppng Implanted:Qty: 1 on 11/07/2022 by Delmer Sheth MD at [facility] Right: Arm [id number] / / Description:SCREW BONE 3.5X1 5MM EVOS SMALL CORTEX SLF TPPNG Screw Bone 3.5x13mm Evos Locks-T - [id number] Implanted:Qty: 1 on 11/07/2022 by Delmer Sheth MD at [facility] Right: Arm [employer] [id number] / / Screw Bone 3.5x12mm Evos Locks-T Implanted:Qty: 4 on 11/07/2022 by Delmer Sheth MD at [facility] Right: Arm [id number] / / Description:Screw Bone 3.5x1 2mm Evos Locks-T Plate Locking Compression 3.5mm 8h 93mm Implanted:Qty: 1 on 11/07/2022 by Delmer Sheth MD at [facility] Right: Arm [id number] / / Description:PLATE LOCKING CO MPRESSION 3.5MM 8H 93MM Plate Radial Shaft 12h 146mm Implanted:Qty: 1 on 11/07/2022 by Delmer Sheth MD at [facility] Right: Arm [id number] / / Description:PLATE RADIAL SHA FT 12H 146MM Explanted Type Area Instrumentation Specialist Device Identifier Shelf Expiration Date Model / Serial / Lot K Wire Fix 150x1.6mm For Alysa-Loc - [id number] Explanted:Qty: 2 on 10/16/2022 at [facility] Left: Arm [employer] [id number] / / Explant Explanted:Qty: 1 on 11/07/2022 at [facility] Right: Arm Description:ULNA 1 PLATE 6 S CREWS, RADIUS 1 PLATE 6 SCREWS Procedures Procedure Name Priority Date/Time Associated Diagnosis Comments CBC WITH AUTO DIFFERENTIAL Routine 10/30/2023 3:30 PM CDT Long-term use of high-risk medication CBC WITH AUTO DIFFERENTIAL Routine 10/30/2023 3:30 PM CDT Long-term use of high-risk medication SCAN-LABORATORY REPORT 10/03/2023 12:00 AM CDT UA W/ SEDIMENT EXAM REFLEXED PER CRITERIA Routine 09/18/2023 12:15 PM CDT Hematuria, unspecified type CLOZAPINE (CLOZARIL) Routine 09/18/2023 12:09 PM CDT Paranoid schizophrenia (HC) Long-term use of high-risk medication ARIPIPRAZOLE (ABILIFY) Routine 09/18/2023 12:09 PM CDT Paranoid schizophrenia (HC) Long-term use of high-risk medication LIPID PANEL W REFLEX MEASURED LDL Routine 09/18/2023 12:09 PM CDT Long-term use of high-risk medication SCAN-LABORATORY REPORT 09/05/2023 12:00 AM CDT XR MAMMO RAFAT BILAT SCREEN Routine 08/20/2022 11:10 AM CDT Visit for screening mammogram SDNA-FIT EXTERNAL (COLOGUARD) Routine 06/05/2022 7:37 AM 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 Screening for colon cancer ANTI HCV Routine 05/30/2021 10:19 AM 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 Need for hepatitis C screening test from Last 3 Months or Most Recently Relevant to Health Maintenance Results * (ABNORMAL) CBC WITH AUTO DIFFERENTIAL (10/30/2023 3:30 PM CDT) WHITE BLOOD COUNT 5.2 4.5 - 11.0 thou/cu mm 10/30/2023 3:39 PM CDT [facility] RED BLOOD COUNT 4.02 4.00 - 5.20 mil/cu mm 10/30/2023 3:39 PM CDT [facility] HEMOGLOBIN 11.9(L) 12.0 - 16.0 g/dL 10/30/2023 3:39 PM CDT [facility] HEMATOCRIT 36.8 33.0 - 51.0 % 10/30/2023 3:39 PM CDT [facility] MCV 92 80 - 100 fL 10/30/2023 3:39 PM CDT [facility] MCH 29.6 26.0 - 34.0 pg 10/30/2023 3:39 PM CDT [facility] MCHC 32.3 32.0 - 36.0 g/dL 10/30/2023 3:39 PM CDT [facility] RDW 13.3 11.5 - 15.5 % 10/30/2023 3:39 PM CDT [facility] PLATELET COUNT 186 140 - 440 thou/cu mm 10/30/2023 3:39 PM CDT [facility] MPV 10.4 6.5 - 11.0 fL 10/30/2023 3:39 PM CDT [facility] % NEUT 72.1 % 10/30/2023 3:39 PM CDT [facility] % LYMPH 20.0 % 10/30/2023 3:39 PM CDT [facility] % MONO 7.5 % 10/30/2023 3:39 PM CDT [facility] % EOS 0.2 % 10/30/2023 3:39 PM CDT [facility] % BASO 0.2 % 10/30/2023 3:39 PM CDT [facility] ABSOLUTE NEUTROPHILS 3.7 1.7 - 7.0 thou/cu mm 10/30/2023 3:39 PM CDT [facility] ABSOLUTE LYMPHOCYTES 1.0 0.9 - 2.9 thou/cu mm 10/30/2023 3:39 PM CDT [facility] ABSOLUTE MONOCYTES 0.4 <0.9 thou/cu mm 10/30/2023 3:39 PM CDT [facility] ABSOLUTE EOSINOPHILS 0.0 <0.5 thou/cu mm 10/30/2023 3:39 PM CDT [facility] ABSOLUTE BASOPHILS 0.0 <0.3 thou/cu mm 10/30/2023 3:39 PM CDT [facility] Blood BLOOD SPECIMEN / Unknown Venipuncture / Unknown 10/30/2023 3:30 PM CDT 10/30/2023 3:36 PM CDT Narrative [facility] - 10/30/2023 3:39 PM CDT Please fax results to pharmacy so they can administer clozapine. This procedure was originally ordered at [facility]. Fernando Couch MD HEMATOLOGY [facility] [address] [place] [address] * SCAN-LABORATORY REPORT (10/03/2023 12:00 AM CDT) Only the most recent of2 resultswithin the time period is included. Scanner OTHER * UA W/ SEDIMENT EXAM REFLEXED PER CRITERIA (09/18/2023 12:15 PM CDT) COLOR Yellow Yellow Color 09/18/2023 12:17 PM CDT [facility] CLARITY Clear Clear Clarity 09/18/2023 12:17 PM CDT [facility] SPECIFIC GRAVITY,URINE 1.010 1.010, 1.015, 1.020, 1.025 09/18/2023 12:17 PM CDT [facility] PH,URINE 7.0 6.0, 7.0, 8.0, 5.5, 6.5, 7.5, 8.5 09/18/2023 12:17 PM CDT [facility] UROBILINOGEN, QUALITATIVE Normal Normal EU/dl 09/18/2023 12:17 PM CDT [facility] PROTEIN, URINE Negative Negative mg/dL 09/18/2023 12:17 PM CDT [facility] GLUCOSE, URINE Negative Negative mg/dL 09/18/2023 12:17 PM CDT [facility] KETONES,URINE Negative Negative mg/dL 09/18/2023 12:17 PM CDT [facility] BILIRUBIN,URI NE Negative Negative 09/18/2023 12:17 PM CDT [facility] OCCULT BLOOD,URINE Negative Negative 09/18/2023 12:17 PM CDT [facility] NITRITE Negative Negative 09/18/2023 12:17 PM CDT [facility] LEUKOCYTE ESTERASE Negative Negative 09/18/2023 12:17 PM CDT [facility] Urine URINE SPECIMEN / Unknown Non-Blood / Unknown 09/18/2023 12:15 PM CDT 09/18/2023 12:15 PM CDT Fernando Couch MD URINE [facility] [facility] [address] [place] [address], * (ABNORMAL) CLOZAPINE (CLOZARIL) (09/18/2023 12:09 PM CDT) CLOZAPINE 124(L) 350 - 600 ng/mL 09/24/2023 3:27 PM CDT [facility] NORCLOZAPINE 91 ng/mL 09/24/2023 3:27 PM CDT [facility] CLOZAPINE NORCLOZAPINE COMBINED TOTAL 215(L) >450 ng/mL 09/24/2023 3:27 PM CDT [facility] Comment: Plasma concentrations of clozapine plus norclozapine (combined total) greater than 450 ng/mL have been associated with therapeutic effect. This test was developed and its performance characteristics determined by [facility]. ??It has not been cleared or approved by the Food and Drug Administration. Blood BLOOD SPECIMEN / Unknown Venipuncture / Unknown 09/18/2023 12:09 PM CDT 09/18/2023 12:15 PM CDT Fernando Couch MD SEND [facility]S [facility] [address] [place] [address], [place] * ARIPIPRAZOLE (ABILIFY) (09/18/2023 12:09 PM CDT) ARIPIPRAZOLE 434.2 ng/mL 09/24/2023 3:27 PM CDT [facility] Comment: Expected steady state plasma levels in patients receiving recommended daily dosages: ??109.0-585.0 ng/mL This test was developed and its performance characteristics determined by [facility]. It has not been cleared or approved by the Food and Drug Administration. Blood BLOOD SPECIMEN / Unknown Venipuncture / Unknown 09/18/2023 12:09 PM CDT 09/18/2023 12:15 PM CDT Fernando Couch MD [facility] [address] [place] [address], * LIPID PANEL W REFLEX MEASURED LDL (09/18/2023 12:09 PM CDT) [facility] CHOLESTEROL,TOTAL 118 100 - 199 mg/dL 09/19/2023 1:12 AM CDT [facility] Comment: Cholesterol, Total Reference Ranges Desirable <200 mg/dL Borderline 200-239 mg/dL High >=240 mg/dL TRIGLYCERIDES 81 <150 mg/dL 09/19/2023 1:12 AM CDT [facility] HDL CHOLESTEROL 70 >40 mg/dL 1:12 AM CDT [facility] NON-HDL CHOLESTEROL 48 <145 mg/dl 09/19/2023 1:12 AM CDT [facility] CHOL/HDL RATIO 1.69 <4.50 09/19/2023 1:12 AM CDT [facility] LDL CHOLESTEROL 32 <=130 mg/dL 09/19/2023 1:12 AM CDT [facility] VLDL CHOLESTEROL 16 <=30 mg/dL 09/19/2023 1:12 AM CDT [facility] PROVIDER ORDERED STATUS RANDOM 09/19/2023 1:12 AM CDT [facility] Blood BLOOD SPECIMEN / Unknown Venipuncture / Unknown 09/18/2023 12:09 PM CDT 09/18/2023 12:15 PM CDT Fernando Couch MD CHEMISTRY [facility] [address] [place] [address], * XR MAMMO RAFAT BILAT SCREEN (08/20/2022 11:10 AM CDT) Anatomical Region Laterality Modality BREASTS, Breast Left, Breast Right Bilateral Mammography Impressions 08/20/2022 1:04 PM CDT ??There is no radiographic evidence for malignancy. ??Recommend annual mammograms. MAMMOGRAM ASSESSMENT: ??ACR 1 Negative PATIENTS: You will also receive a letter with your examination results in an easy to read format. ??If you have questions about your results, please contact your referring provider. Narrative 08/20/2022 1:04 PM CDT For Patients: As a result of the Cures Act, medical imaging exams and procedure reports are released immediately into your electronic medical record. You may view this report before your referring provider. If you have questions, please contact your health care provider. XR MAMMO RAFAT BILAT SCREEN [[id number]] CLINICAL HISTORY: ??This is an asymptomatic 67 y.o. patient. INDICATION FOR EXAM: Mammogram Screening. TECHNIQUE: CC & MLO views were obtained. ??This study was evaluated with the assistance of Computer-Aided Detection. Breast Tomosynthesis was used in interpretation. COMPARISON FILM: Yes 04/07/21 [employer] 01/19/20 [facility] SYMIC BIOMEDICAL FINDINGS: ??The breasts have scattered areas of fibroglandular density. There are no dominant masses, suspicious micro calcifications or areas of architectural distortion. Yecenia Thrasher MD MAMMO * SDNA-FIT EXTERNAL (COLOGUARD) (06/05/2022 7:37 AM 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) NONINV COLON CA DNA+OCC BLD SCRN STL-IMP Negative Negative 06/12/2022 11:42 PM 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 [facility] (CLIA #:[id number]) Comment: NEGATIVE TEST RESULT. A negative Cologuard result indicates a low likelihood that a colorectal cancer (CRC) or advanced adenoma (adenomatous polyps with more advanced pre-malignant features) ??is present. The chance that a person with a negative Cologuard test has a colorectal cancer is less than 1 in 1500 (negative predictive value >99.9%) or has an ??advanced adenoma is less than ??5.3% (negative predictive value 94.7%). These data are based on a prospective cross-sectional study of 10,000 individuals at average risk for colorectal cancer who were screened with both Cologuard and colonoscopy. (Clyde Byrd et al, N Engl J Med 2014;370(14):1286- 1297) The normal value (reference range) for this assay is negative. COLOGUARD RE-SCREENING RECOMMENDATION: Periodic colorectal cancer screening is an important part of preventive healthcare for asymptomatic individuals at average risk for colorectal cancer. ??Following a negative Cologuard result, the [place] [employer] and U.S. Multi-Society Task Force screening guidelines recommend a Cologuard re-screening interval of 3 years. References: [place] [employer] Guideline for Colorectal Cancer Screening: https://www.cancer.org/cancer/mgcbx-xcvhrp-zhjdii/jvvfgomiv-qozdlpdes-nocdein/ac s-rec ommendations.html.; Ayaan DK, Radha WARREN, Jacob ElkinsK, Colorectal Cancer Screening: Recommendations for Physicians and Patients from the U.S. Multi-Society Task Force on Colorectal Cancer Screening , Am J Gastroenterology 2017; 112:7437-8334. TEST DESCRIPTION: Composite algorithmic analysis of stool DNA-biomarkers with hemoglobin immunoassay. ?? Quantitative values of individual biomarkers are not reportable and are not associated with individual biomarker result reference ranges. Cologuard is intended for colorectal cancer screening of adults of either sex, 45 years or older, who are at average-risk for colorectal cancer (CRC). Cologuard has been approved for use by the U.S. FDA. The performance of Cologuard was established in a cross sectional study of average-risk adults aged 50-84. Cologuard performance in patients ages 45 to 49 years was estimated by sub-group analysis of near-age groups. Colonoscopies performed for a positive result may find as the most clinically significant lesion: colorectal cancer [4.0%], advanced adenoma (including sessile serrated polyps greater than or equal to 1cm diameter) [20%] or non- advanced adenoma [31%]; or no colorectal neoplasia [45%]. These estimates are derived from a prospective cross-sectional screening study of 10,000 individuals at average risk for colorectal cancer who were screened with both Cologuard and colonoscopy. (Clyde Ahuja al, N Engl J Med 2014;370(14):6109-7799.) Cologuard may produce a false negative or false positive result (no colorectal cancer or precancerous polyp present at colonoscopy follow up). A negative Cologuard test result does not guarantee the absence of CRC or advanced adenoma (pre-cancer). The current Cologuard screening interval is every 3 years. ([place] [employer] and U.S. Multi-Society Task Force). Cologuard performance data in a 10,000 patient pivotal study using colonoscopy as the reference method can be accessed at the following location: www.[employer]/results. Additional description of the Cologuard test process, warnings and precautions can be found at www.[employer]. Stool specimen (specimen) (Rectum) 06/05/2022 7:37 AM 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 06/06/2022 12:39 PM 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 Yecenia Thrasher MD URINE [facility] (CLIA #:[id number]) [place] [address], * ANTI HCV (05/30/2021 10:19 AM 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) HEPATITIS C ANTIBODY Non-React armida Non-React armida 05/30/2021 6:36 PM 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 [facility] Comment:Antibodies to HCV no t detected; does not exclude the possibility of exposure to HCV. Blood BLOOD SPECIMEN / Unknown Venipuncture / Unknown 05/30/2021 10:19 AM 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 05/30/2021 10:19 AM 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 Yecenia Thrasher MD SEND OUTS [facility] 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 10/23/2022 Healthcare Directive 05/24/2021 022 * Full Code (Latest Code Status on File) Date Activated Date Inactivated Comments 11/06/2022 8:58 PM 11/09/2022 3:20 PM Question Answer Comments Code Status Discussion: Reviewed Preferences * Full Code Date Activated Date Inactivated Comments 10/17/2022 1:58 PM 10/23/2022 12:34 PM Question Answer Comments Code Status Discussion: Reviewed Preferences * Full Code Date Activated Date Inactivated Comments 10/16/2022 6:02 AM 10/17/2022 1:58 PM Question Answer Comments Code Status Discussion: Unable to Assess Preferences, Provider to review later * Full Code Date Activated Date Inactivated Comments 10/15/2022 9:35 PM 10/16/2022 6:02 AM Question Answer Comments Code Status Discussion: Reviewed Preferences * Full Code Date Activated Date Inactivated Comments 07/28/2022 4:41 PM 08/02/2022 5:41 PM Question Answer Comments Code Status Discussion: Reviewed Preferences Care 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
--- OUTSIDE RECORDS SUMMARY | 2023-11-20 16:58 | XMS_ITS ---
Author Organization [facility] Address [address] [place] [address] Care Team Providers Care Maritime Engineer Name Role Phone Unavailable Unavailable Unavailable Surgery Details Not on file Complications Check Surgery Details section. Procedure Estimated Blood Loss Check Surgery Details section. Procedure Findings Check Surgery Details section. Procedure Specimens Taken Check Surgery Details section.
--- OUTSIDE RECORDS SUMMARY | 2023-11-20 16:58 | XMS_ITS | Referral Summary ---
Author Organization [facility] Address [address] [place] [address] Care Team Providers Care Product Mgr Name Role Phone Elsewhere, Pcp Primary Care Provider Unavailabl e Source Comments Patient records contain information from all sites at [facility]. For routine questions regarding patient records, call [phone] during business hours, M-F 8:00 AM - 5:00 PM Central Time. 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 LAB BLOOD ADD-O N [facility] [address] [place] [address], [facility] DTL [facility] [address] [place] [address] from Last 3 Months or Most Recently Relevant to Health Maintenance Advance Directives For more information, please contact: [phone] * Full Code (Latest Code Status on [...] Due to: Patient not available Care Teams Product Mgr Relationship Specialty Start Date End Date Elsewhere, Pcp PCP - General Internal Medicine 01/24/23
== END 2023-11-20 17:22 | disposition home or self-care (01) ==
PROVIDERS: Emergency Provider Emergency Medicine; PCP Family Medicine
DX: K62.5 Hemorrhage of anus and rectum (principal)
CPT/HCPCS: 36415; 82270; 85025; 85610; 85730; 99283; 99284

== ENCOUNTER 2023-12-22 09:05 | Observation (INO) | payer MEDICARE, MEDICAID, SELFPAY ==
[2023-12-22] VITALS (30 sets, daily range): BP systolic 91–135; BP diastolic 64–104; PULSE 61–95; RESP 18–22; TEMP 36.4–37.4; O2SAT 89–98; BMI 39.9; BMI 40.1
--- NOTE | 2023-12-22 09:09 | ED.GENADULT ---
HPI - General Adult General Date Seen: 12/22/23 Chief complaint: GI Bleed Stated complaint: rectal bleeding Time Seen by Provider: 12/22/23 09:09 History of Present Illness HPI narrative: 68-year-old female with a history of elevated BMI, schizophrenia ( resident of [facility]), internal hemorrhoids, diastolic CHF, asthma, type 2 diabetes, hypertension, anemia ( hemoglobin range over the past couple of years 8.7-11.7. Was 11.2 in October). she is not on any anticoagulants. per EMR,was seen in ER November 19 for rectal bleeding. she had 1 episode of bleeding prior to arrival, but no further bleeding in the ER. Rectal exam revealed internal hemorrhoids. Hemoglobin was 11.2. Recommended outpatient follow-up with Colorectal surgery to treat the internal hemorrhoids. Patient says she thinks she might have gone to have a hemorrhoid banding procedure done. She is not sure if she has it done since she was in the ER last month or not. She seems to recall that happened while she was in the ER last month ( but were not able to do rectal banding in the ER, so that would not be a correct recollection). she is not sure if she has seen the colorectal specialist Or not. It sounds like she has had a internal hemorrhoid banding procedure at some point in the past. She has had normal bowel movements lately, up until yesterday afternoon. She thinks she had a normal brown bowel movement yesterday morning. Starting yesterday afternoon she started having bloody/dark maroon/clotted blood stools. She says she had 5 or 6 of them yesterday afternoon evening. She had to get up to go to the bathroom to pass more bloody diarrhea at about 330 this morning. This morning she is just not feeling well. She is feeling lightheaded. She is dizzy. She says she just feels foggy. She has not had any bloody stool Since she woke upthis morning. she is not having any abdominal pain. No nausea or vomiting. No fever. No trouble breathing. No chest pain. No cough. Related Data Home Medications ?Medication ?Instructions ?Recorded ?Confirmed albuterol sulfate 90 mcg/actuation 2 puff inhalation QID PRN 10/11/22 12/22/23 aerosol inhaler ammonium lactate 12 % topical cream 1 applic topical BID 10/11/22 12/22/23 aripiprazole 10 mg tablet 10 mg PO HS 10/11/22 12/22/23 aripiprazole 400 mg intramuscular 400 mg IM Q3W 10/11/22 12/22/23 suspension,extended release (Meron Mainvahea) atorvastatin 20 mg tablet 20 mg PO HS 10/11/22 12/22/23 cholecalciferol (vitamin D3) 125 5,000 unit PO DAILY 10/11/22 12/22/23 mcg (5,000 unit) tablet citalopram 20 mg tablet 20 mg PO DAILY 10/11/22 12/22/23 docusate sodium 100 mg capsule 200 mg PO BID PRN 10/11/22 12/22/23 furosemide 40 mg tablet 20 mg PO BID 10/11/22 12/22/23 lisinopril 2.5 mg tablet 2.5 mg PO DAILY 10/11/22 12/22/23 metoprolol succinate 25 mg 25 mg PO DAILY 10/11/22 12/22/23 tablet,extended release 24 hr oxybutynin chloride 10 mg 10 mg PO DAILY 10/11/22 12/22/23 tablet,extended release 24 hr pantoprazole 40 mg tablet,delayed 40 mg PO DAILY 10/11/22 12/22/23 release trazodone 50 mg tablet 50 mg PO HS 10/11/22 12/22/23 acetaminophen 500 mg capsule 1,000 mg PO Q6H PRN 11/20/23 12/22/23 fluticasone furoate 100 1 inh inhalation DAILY 11/20/23 12/22/23 mcg-vilanterol 25 mcg/dose inhalation powder (Breo Ellipta) clozapine 25 mg tablet 75 mg PO HS 12/22/23 12/22/23 diltiazem HCl 60 mg 60 mg PO BID 12/22/23 12/22/23 capsule,extended release 12 hr psyllium husk 2.6 gram/4.1 gram 1 tbsp PO DAILY 12/22/23 12/22/23 oral powder Previous Rx's ?Medication ?Instructions ?Recorded azithromycin 250 mg tablet 250 mg PO Q24H #3 tabs 12/23/23 Allergies Allergy/AdvReac Type Severity Reaction Status Date / Time No Known Drug Allergies Allergy Verified 12/22/23 10:53 PFSH PFSH Medical History (Updated 12/23/23 @ 10:16 by Sonia Mckeon MD) Fracture of forearm, right, open ?S52.91XB - Unspecified fracture of right forearm, initial encounter for open fracture type I or II (ICD-10) Monteggia's fracture of left ulna ?S52.272A - Monteggia's fracture of left ulna, initial encounter for closed fracture (ICD-10) Insomnia ?G47.00 - Insomnia, unspecified (ICD-10) History of lung cancer ?Z85.118 - Personal history of other malignant neoplasm of bronchus and lung (ICD-10) Asthma ?J45.909 - Unspecified asthma, uncomplicated (ICD-10) Schizophrenia ?F20.9 - Schizophrenia, unspecified (ICD-10) Surgical History (Updated 12/22/23 @ 12:23 by Sonia Mckeon MD) H/O pneumonectomy ?Z98.890 - Other specified postprocedural states (ICD-10) ?Z90.2 - Acquired absence of lung [part of] (ICD-10) History of open reduction and internal fixation (ORIF) procedure (10/16/22) ?Z98.890 - Other specified postprocedural states (ICD-10) History of open reduction and internal fixation (ORIF) procedure (10/10/22) ?Z98.890 - Other specified postprocedural states (ICD-10) Social History (Updated 12/22/23 @ 14:18 by Sonia Mckeon MD) Narrative: Lives at [facility] in [place]. Sister Naomi is guardian and medical decision maker. Former smoker, no ETOH. Requests Full Code Status. What is your current living situation?: I presently have a place to live Problems where you live: no known problems Problems where you live details: NA In the past 12 months, utilities in danger of being shut off: no In past 12 months, lack of transportation kept you from medical appts, meetings, work, or getting things needed for daily living: yes In the past 12 mos, have been you worried that your food would run out before you had money to buy more?: never true In the past 12 mos, the food you bought just didn't last and you didn't have money to buy more?: never true Highest level of school completed/degree received: high school graduate Smoking Status: Former smoker Do you use any of these nicotine containing products: None How often do you have a drink containing alcohol: never AUDIT-C Alcohol total score: 0 Non-prescribed substance use: over the counter (eg: immodium) Non-prescribed substance use details: Tylenol as needed Caffeine: Yes How often does anyone, including family, friends and others, physically hurt you: never How often does anyone, including family, friends and others, insult or talk down to you: never How often does anyone, including family, friends and others, threaten you with harm: never How often does anyone, including family, friends and others, scream or curse at you: never service: No Exam Narrative: Exam Narrative: Constitutional: Appears well-developed and well-nourished. Alert. Conversant But somewhat poor historian, Unclear if she has an acute alteration in her memory or if this is her baseline. Skin is pink, warm, dry. No pallor. No mottling. No diaphoresis. Oxygen saturation varying between 88-92%. HENT: Head: Atraumatic. Nose: Nose normal. Mouth/Throat: Oral mucosa is clear and moist. no trismus. Pharynx normal. Tonsils symmetric. No tonsillar enlargement, erythema, or exudate. Eyes: Conjunctivae normal. EOM normal. Pupils equal, round, and reactive to light. No scleral icterus. Neck: Normal range of motion. Neck supple. No tracheal deviation present. Cardiovascular: Normal rate, regular rhythm. No gallop. No friction rub. Systolic murmur heard. Symmetric radial artery pulses Pulmonary/Chest: Effort normal. No stridor. No respiratory distress. No wheezes. No rales. No rhonchi . No tenderness. Abdominal: Soft. Bowel sounds normal. No distension. No mass. No tenderness. No rebound. No guarding. rectal: Performed with female retail agent. Does have some maroon stool on her undergarment. No stool in the gluteal cleft. No obvious external source of bleeding such as external hemorrhoid or fissure. Rectal exam reveals no definite masses. I am not sure that I can feel any internal hemorrhoids ( as had been noted by Dr. Louie vuong last month). Normal rectal tone. No tenderness. Musculoskeletal: RUE: Normal range of motion. No tenderness. No deformity LUE: Normal range of motion. No tenderness. No deformity RLE: Normal range of motion. No edema. No tenderness. No deformity LLE: Normal range of motion. No edema. No tenderness. No deformity Neurological: Alert and oriented to person, place, and time. However she is a poor historian. She can not remember if she has had a hemorrhoid banding procedure lately or not. She thinks she may have.Normal strength. CN II-VII intact. No sensory deficit. GCS eye subscore is 4. GCS verbal subscore is 5. GCS motor subscore is 6. Normal coordination Skin: Skin is warm and dry. No rash noted. No pallor. Normal capillary refill. Psychiatric: Normal mood. Normal affect. She says she feels foggy. Const: Vital Signs, click to edit/add: Vital Signs - 24 hr 12/22/23 09:16 12/22/23 09:17 12/22/23 09:17 Temperature 99.3 F Pulse Rate 95 95 Pulse Rate [Pulse Oximeter] 94 Respiratory Rate 22 Blood Pressure 112/71 Blood Pressure [Ri ght Upper Arm] 112/71 Pulse Oximetry 91 91 91 Oxygen Delivery Me thod Room Air 12/22/23 09:30 12/22/23 09:32 12/22/23 09:45 Temperature Pulse Rate 87 92 88 Pulse Rate [Pulse Oximeter] Respiratory Rate Blood Pressure 114/64 Blood Pressure [Ri ght Upper Arm] Pulse Oximetry 90 91 92 Oxygen Delivery Me thod 12/22/23 10:08 12/22/23 10:09 12/22/23 10:15 Temperature Pulse Rate 85 83 82 Pulse Rate [Pulse Oximeter] Respiratory Rate Blood Pressure 135/73 Blood Pressure [Ri ght Upper Arm] Pulse Oximetry 96 98 95 Oxygen Delivery Me thod 12/22/23 11:05 12/22/23 11:06 Temperature Pulse Rate 77 82 Pulse Rate [Pulse Oximeter] Respiratory Rate Blood Pressure 131/74 Blood Pressure [Ri ght Upper Arm] Pulse Oximetry 96 93 Oxygen Delivery Me thod Course Vital Signs Vital signs: Initial Vital Signs Pulse Rate 95 12/22/23 09:16 Blood Pressure 112/71 12/22/23 09:16 Blood Pressure Mean 84 12/22/23 09:16 Pulse Oximetry 91 12/22/23 09:16 Vital Signs Pulse Rate 95 12/22/23 09:16 Blood Pressure 112/71 12/22/23 09:16 Pulse Oximetry 91 12/22/23 09:16 Temperature 98.6 F 12/23/23 10:47 Pulse Rate 88 12/23/23 10:47 Respiratory Rate 18 12/23/23 10:47 Blood Pressure 142/95 H 12/23/23 10:47 Pulse Oximetry 95 12/23/23 10:47 Oxygen Delivery Method Room Air 12/23/23 10:47 Medications Administered Medications: Discontinued Medications Generic Name Dose Route Start Last Admin Trade Name Freq PRN Reason Stop Dose Admin Aripiprazole 10 mg 12/22/23 21:00 12/22/23 22:49 Aripiprazole 10 Mg Tablet PO 10 mg HS IAN Administration Atorvastatin Calcium 20 mg 12/22/23 21:00 12/22/23 22:48 Atorvastatin 10 Mg Tablet PO 20 mg HS IAN Administration Azithromycin 250 mg 12/23/23 09:00 12/23/23 08:51 Azithromycin 250 Mg Tablet PO 12/26/23 09:01 250 mg Q24H IAN Administration Citalopram Hydrobromide 20 mg 12/23/23 09:00 12/23/23 08:51 Citalopram Hydrobromide 20 Mg Tablet PO 20 mg DAILY IAN Administration Furosemide 20 mg 12/22/23 21:00 12/23/23 08:49 Furosemide 40 Mg Tablet PO 20 mg BID IAN Administration Ceftriaxone Sodium 1 gm/ 100 mls @ 200 mls/hr 12/22/23 11:44 12/22/23 12:56 Sodium Chloride IVPB 12/22/23 11:45 Infused ONCE ONE Infusion Azithromycin 500 mg/ Sodium 255 mls @ 255 mls/hr 12/22/23 11:44 12/22/23 12:55 Chloride IVPB 12/22/23 11:45 255 mls/hr ONCE ONE Administration Ceftriaxone Sodium 1 gm/ 100 mls @ 200 mls/hr 12/23/23 11:00 12/23/23 11:04 Sodium Chloride IVPB 200 mls/hr Q24H IAN Administration Insulin Aspart 0 unit 12/22/23 17:30 12/23/23 11:13 Insulin Aspart 100 Unit/Ml SUBCUT Not Given ACHS IAN Protocol Lisinopril 2.5 mg 12/23/23 09:00 12/23/23 08:49 Lisinopril 5 Mg Tablet PO 2.5 mg DAILY IAN Administration Metoprolol Succinate 25 mg 12/23/23 09:00 12/23/23 08:51 Metoprolol Succinate (Xl) 25 Mg Tab PO 25 mg DAILY IAN Administration Fluticasone Furoate- 0 inhalation 12/23/23 09:00 12/23/23 08:51 Vilanterol [Breo IH 1 inhalation Ellipta] 100-25 Mcg/ DAILY IAN Administration Dose Clozapine 25 Mg 0 mg 12/22/23 21:00 12/22/23 22:50 Tablet PO 75 mg HS IAN Administration Diltiazem Hcl 60 Mg 0 mg 12/22/23 21:00 12/23/23 08:52 Capsule,Extended PO 60 mg Release 12 Hr BID IAN Administration Omeprazole 40 mg 12/23/23 07:00 12/23/23 07:46 [address] PO 40 mg DAILY@0700 IAN Administration Oxybutynin Chloride 10 mg 12/23/23 09:00 12/23/23 08:50 Oxybutynin Chloride 5 Mg Tab.Er.24 PO 10 mg DAILY IAN Administration Sodium Chloride 5 ml 12/22/23 14:10 12/23/23 11:03 Sodium Chloride 0.9 % (Flush) 10 Ml Syringe IVF 5 ml .FLUSH PRN Administration Sodium Chloride 5 ml 12/22/23 21:00 12/23/23 08:52 Sodium Chloride 0.9 % (Flush) 10 Ml Syringe IVF 5 ml BID IAN Administration Sodium Chloride 250 ml 12/23/23 11:00 12/23/23 11:04 0.9 % Sodium Chloride 250 Ml IV 250 ml Q24H IAN Administration Trazodone HCl 50 mg 12/22/23 21:00 12/22/23 22:49 Trazodone Hcl 50 Mg Tablet PO 50 mg HS IAN Administration Medical Decision Making MDM Narrative Medical decision making narrative: 68-year-old female presenting to the ER today from her long-term by EMS for dark red blood and clots of blood per rectum. Sounds like rectal bleeding started yesterday. She has a history of rectal bleeding thought to be due to internal hemorrhoids. Unclear if she has had a recent hemorrhoid banding procedure or not. Records indicate she was here about a month ago for rectal bleeding thought to be due to the hemorrhoids and was given an outpatient referral for Colorectal surgery. She has had recurrent bleeding with multiple episodes since yesterday. Given the description of the amount of blood, I am concerned that there may be something other than a bleeding internal hemorrhoid going on here. CT scan shows no acute abnormality or cause verge lower GI bleeding.. hemoglobin is 11.1, essentially stable from last month. She will be admitted to treat her pneumonia and can monitor hemoglobin overnight to look for any signs of worsening anemia and monitor for any evidence for ongoing lower GI bleeding. I also note that she is borderline hypoxic with sats ranging between the high 80s and low 90s. she is not short of breath. She denies recent cough or fever.She has a history of asthma and her medical record but is not wheezing. Chest x-ray shows left lung pneumonia. Will start Rocephin and Zithromax here in the ER.. COVID/influenza PCR negative. Blood pressure and other vital signs stable. No evidence for sepsis or septic shock. She will require hospitalization treat her pneumonia because she is requiring oxygen supplementation. Graciously accepted by the hospitalist for admission. Lab Data Labs: Lab Results 12/22/23 Range/Units 09:42 WBC 4.50 (4.50-11.00) K/uL RBC 3.74 L (4.00-5.20) m/uL Hgb 11.1 L (12.0-16.0) gm/dL Hct 34.7 (33.0-51.0) % MCV 93 (80-100) fL MCH 30 (26-34) pg MCHC 32 (32-36) gm/dL RDW Coeff of Emily 13.4 (11.5-15.5) % Plt Count 165 (140-440) K/uL Neut % (Auto) 69.2 (42.0-72.0) % Lymph % (Auto) 22.0 (20-44) % [place] % (Auto) 8.2 (0.0-11.0) % Eos % (Auto) 0.0 (0.0-7.0) % Baso % (Auto) 0.2 (0.0-3.0) % Neut # (Auto) 3.11 (1.7-7.0) K/uL Lymph # (Auto) 0.99 (0.90-2.90) K/uL [place] # (Auto) 0.40 (0.00-0.90) K/UL Eos # (Auto) 0.00 (0.00-0.50) K/uL Baso # (Auto) 0.01 (0.00-0.30) K/uL Abs Immat Gran (auto) 0.02 (0.00-0.30) K/uL Imm/Tot Granulo (auto) 0.4 % INR 0.93 (0.91-1.10) Sodium 138 (135-149) mmol/L Potassium 3.7 (3.6-5.1) mmol/L Chloride 105 (96-114) mmol/L Carbon Dioxide 29 (20-32) mmol/L Anion Gap 4 L (7-15) mEq/L BUN 15 (7-30) mg/dL Creatinine 0.7 (0.5-1.5) mg/dL Estimated Creat Clear 44.54 Estimated GFR 94 ml/min Glucose 104 (60-115) mg/dL Calcium 8.9 (8.4-10.6) mg/dL Troponin I < 0.01 L (0.01-0.04) ng/mL Blood Type O Positive Antibody Screen NEGATIVE Imaging Data CT scan - abdomen: Attestation: I have reviewed the pertinent imaging results. Radiologist's impression: IMPRESSION: 1. A cause for gastrointestinal bleeding has not been identified. 2. Small hiatal hernia. Chest x-ray: Attestation: I have reviewed the pertinent imaging results. My impression: Suspect left lingular or left upper lobe infiltrate in the left perihilar region.-Dr. Cooper Radiologist's impression: IMPRESSION: Left perihilar infiltrate favored to represent pneumonia. ECG Data Attestation: I personally reviewed and interpreted this ECG as follows: Interpretation: Normal sinus rhythm with sinus arrhythmia Rate: PA: 67 144 QRS axis: No pathologic Q-waves. Normal axis ST segment/T wave: No ST elevation or depression QTc: 420 Discharge Plan Discharge Condition: Improved Activity Level: Activity as Tolerated Discharge Diet: Regular
--- NOTE | 2023-12-22 09:31 | CRLHL7_ITS ---
For Patients: As a result of the Century Cures Act, medical imaging exams and procedure reports are released immediately into your electronic medical record. You may view this report before your referring provider. If you have questions, please contact your health care provider. INDICATION: Rectal bleeding for 1 day. TECHNIQUE: An initial noncontrast CT scan was performed of the abdomen pelvis. This has been followed by contrast infused images during the arterial and portal venous phases of contrast infusion. 110 mL of Isovue-370 was injected intravenously. COMPARISON: 04/23/2021. FINDINGS: Since the prior CT, the small-bowel obstruction has resolved. There is a small hiatal hernia. The aorta, celiac artery, superior mesenteric artery and inferior mesenteric artery all appear normal. Some the portal venous phase images are degraded by motion artifact. The colon and small bowel appear normal. The appendix is not inflamed. There is a small right lobe liver cyst. The spleen, pancreas, adrenals and kidneys appear normal. There are no enlarged retroperitoneal or mesenteric lymph nodes. The uterus and urinary bladder appear normal. There is no iliac or inguinal lymphadenopathy. There are no nodules or masses at the lung bases. There are multilevel spinal degenerative changes. There are no lytic or sclerotic skeletal lesions. IMPRESSION: 1. A cause for gastrointestinal bleeding has not been identified. 2. Small hiatal hernia. Please note that all CT scans at this facility use dose modulation, iterative reconstruction, and/or weight-based dosing when appropriate to reduce radiation dose to as low as reasonably achievable. Dictated by Marsahll Garcia MD @ 12/22/2023 11:10:08 AM (Electronically Signed)
--- NOTE | 2023-12-22 09:33 | CRLHL7_ITS ---
For Patients: As a result of the Century Cures Act, medical imaging exams and procedure reports are released immediately into your electronic medical record. You may view this report before your referring provider. If you have questions, please contact your health care provider. INDICATION: Hypoxia. COMPARISON: 10/14/2022. FINDINGS: The heart is mildly enlarged. There is tortuosity of the descending thoracic aorta. There is a left perihilar infiltrate favored to represent pneumonia. There is a thin linear scar at the periphery of the left lung near the lung base. The right lung is essentially clear. The pulmonary vasculature is normal. There are no pleural fluid collections. The bony thorax appears intact. IMPRESSION: Left perihilar infiltrate favored to represent pneumonia. Dictated by Marshall Garcia MD @ 12/22/2023 11:01:40 AM (Electronically Signed)
[2023-12-22 09:51] LABS: Basophils Absolute Auto 0.01 K/uL (0.00-0.30); Basophils Percent Auto 0.2 % (0.0-3.0); Hematocrit 34.7 % (33.0-51.0); Hemoglobin* 11.1 gm/dL (12.0-16.0); Immature Granulocytes Abs Auto 0.02 K/uL (0.00-0.30); Immature Granulocytes Pct Auto 0.4 %; Lymphocytes Absolute Auto 0.99 K/uL (0.90-2.90); Mean Corpuscular HGB Conc 32 gm/dL (32-36); Mean Corpuscular Hemoglobin 30 pg (26-34); Mean Corpuscular Volume 93 fL (80-100); Monocytes Percent Auto 8.2 % (0.0-11.0); Neutrophils Absolute Auto 3.11 K/uL (1.7-7.0); Neutrophils Percent Auto 69.2 % (42.0-72.0); Platelet Count* 165 K/uL (140-440); RDW Coefficient of Variation % 13.4 % (11.5-15.5); Red Blood Count 3.74 m/uL (4.00-5.20)
[2023-12-22 10:00] LABS: Slide Review Reflex No
[2023-12-22 10:07] LABS: Chloride* 105 mmol/L (96-114); Sodium* 138 mmol/L (135-149)
[2023-12-22 10:08] LABS: Potassium* 3.7 mmol/L (3.6-5.1)
[2023-12-22 10:10] LABS: Creatinine* 0.7 mg/dL (0.5-1.5); Est. Creatinine Clearance* 44.54; Estimated Glomerular Filt Rate 94 ml/min
[2023-12-22 10:11] LABS: Anion Gap 4 mEq/L (7-15); Blood Urea Nitrogen* 15 mg/dL (7-30); Calcium* 8.9 mg/dL (8.4-10.6); Carbon Dioxide* 29 mmol/L (20-32); Glucose* 104 mg/dL (60-115)
[2023-12-22 10:12] LABS: INR 0.93 (0.91-1.10)
--- OUTSIDE RECORDS SUMMARY | 2023-12-22 10:14 | XMS_ITS | Clinical Summary ---
Author Organization [facility] Address [place], [place] [address] Care Team Providers Care Salvager Name Role Phone Yecenia Thrasher MD Primary Care Provide r Allergies No known active allergies Medications Medication Sig Dispensed Refills Start Date End Date Status albuterol HFA (PRO-AIR; VENTOLIN; PROVENTIL) 90 mcg/actuation inhaler Inhale 2 Puffs by mouth 4 times daily if needed for Shortness of Breath 1st choice. Active ferrous gluconate 324 mg (37 mg iron) tabletIndications:Ir on deficiency anemia due to chronic blood loss Take 1 Tablet by mouth once daily with a meal. 90 Tablet 3 02/15/2023 Active lisinopriL (PRINIVIL; ZESTRIL) 2.5 mg tabletIndications:Hy pertension, unspecified type TAKE 1 TABLET BY MOUTH DAILY 28 Tablet 12 03/21/2023 Active atorvastatin (LIPITOR) 20 mg tabletIndications:Hy perlipidemia, unspecified hyperlipidemia type TAKE 1 TABLET BY MOUTH EVERY NIGHT AT BEDTIME 28 Tablet 12 03/21/2023 Active cholecalciferol (VITAMIN D3) 5,000 unit capsuleIndications:C ontrolled type 2 diabetes mellitus without complication, without long-term current use of insulin (HC) TAKE 1 CAPSULE BY MOUTH DAILY 28 Capsule 12 03/21/2023 Active dilTIAZem SR (CARDIZEM SR) 60 mg extended release 12 hr capsuleIndications:H TN (hypertension) TAKE 1 CAPSULE BY MOUTH TWICE DAILY 56 Capsule 11 03/25/2023 Active metoprolol succinate (TOPROL XL) 25 mg Sustained-Release tabletIndications:Hy pertension, unspecified type Take 1 Tablet (25 mg) by mouth once daily. 90 Tablet 3 03/22/2023 Active pantoprazole (PROTONIX) 40 mg delayed-release tabletIndications:Ch ronic GERD Take 1 Tablet (40 mg) by mouth once daily. 90 Tablet 3 03/22/2023 Active furosemide (LASIX) 20 mg tabletIndications:Bi lateral lower extremity edema Take 1 Tablet (20 mg) by mouth two times daily. 180 Tablet 3 04/09/2023 Active CPAPIndications:KEVIN (obstructive sleep apnea) CPAP machine for home use at pressure 15cmw epr 3, full face mask x1/3month with a full face cushion x1/mo 1 Each 11 05/01/2023 Active lactobacillus rhamnosus, GG, (CULTURELLE) 10 billion cell capsuleIndications:C hronic diarrhea Take 1 Capsule by mouth once daily. 90 Capsule 3 06/06/2023 Active acetaminophen (TYLENOL EXTRA STRGTH) 500 mg tabletIndications:St atus post open reduction and internal fixation (ORIF) of fracture Take 2 Tablets (1,000 mg) by mouth every 6 hours if needed for Pain. 06/06/2023 Active medication order composerIndications: Acute diarrhea Kefir, 1-3 cups (237-710 mL) per day 06/14/2023 Active medication order composerIndications: Loose stools Patient can have 1/2 cup of kefir daily brought in by her sister Naomi 07/04/2023 Active ARIPiprazole (Abilify) 10 mg tabletIndications:Ot her schizophrenia (HC) Take 1 Tablet (10 mg) by mouth at bedtime. 28 Tablet 12 08/19/2023 Active citalopram (CELEXA) 20 mg tabletIndications:Ot her schizophrenia (HC) Take 1 Tablet (20 mg) by mouth every morning. 28 Tablet 12 08/19/2023 Active traZODone (DESYREL) 50 mg tabletIndications:Ot her schizophrenia (HC) Take 1 Tablet (50 mg) by mouth at bedtime. 28 Tablet 12 08/19/2023 Active cloZAPine (CLOZARIL) 25 mg tabletIndications:Ot her schizophrenia (HC) Take 3 Tablets (75 mg) by mouth at bedtime. 84 Tablet 12 08/19/2023 Active fluticasone furoate-vilanteroL (BREO ELLIPTA) 100-25 mcg/dose inhalation powderIndications:Ch ronic obstructive pulmonary disease, unspecified COPD type (HC) Inhale 1 Puff by mouth once daily. Rinse mouth after use 180 Each 3 08/28/2023 Active ammonium lactate 12% (LACHYDRIN) 12 % creamIndications:Otis veronica of foot Apply topically to affected area(s) two times daily. Apply to both feet twice daily. 385 g 5 10/05/2023 Active ARIPiprazole (Abilify Maintena) 400 mg extended release injectionIndications :Paranoid schizophrenia (HC) Inject 2 mL (400 mg) intramuscular every 3 weeks. 2 mL 11 10/22/2023 Active oxybutynin XL (DITROPAN XL) 10 mg CR tabletIndications:Ur inary urgency TAKE 1 TABLET BY MOUTH DAILY 90 Tablet 10/26/2023 Active Breo Ellipta 100-25 mcg/dose inhalation powderIndications:Ch ronic obstructive pulmonary disease, unspecified COPD type (HC) Inhale 1 Puff by mouth once daily. 60 Each 1 11/08/2023 Active Active Problems Problem Noted Date Diagnosed [...] 12/26/20 Minna Deleon MD/psychiatry Psychophysiological insomnia 11/24/2018 [facility] current use of clozapine 05/26/2018 Paranoid schizophrenia [...] Encounters Date Type Department Care Team Description 12/20/2023 Telephone [facility] [address] [facility] [place] [address] Fernando Couch MD REMS 12/19/2023 11:10 AM CDT Orders Only [facility] [address] [place] [id number] Lab, Margarita Lab 12/19/2023 Travel 12/04/2023 Telephone [facility] [address] [place] [address] Fernando Couch MD REMS 11/20/2023 Nurse Triage [facility] [address] [place] [address] Yecenia Thrasher MD Rectal Problem 11/06/2023 Refill [facility] [address] [place] [address] Yecenia Thrasher MD Refill Request (Breo Ellipta) 11/04/[address] [address] Fernando Couch MD REMS 10/30/2023 3:30 PM CDT Orders Only [facility] [address] [place] [address] Lab 10/30/2023 Travel 10/24/2023 Refill [facility] [address] [place] [address] Yecenia Thrasher MD Refill Request (Oxybutynin Xl) 10/22/2023 9:00 AM CDT Office Visit [address] [address] Fernando Couch MD Follow Up; Medication Management (feeling, fine) 10/22/2023 Travel 10/07/2023 Refill [facility] [address] [place] [address] Yecenia Thrasher MD Refill Request; breo ellipta 10/07/[address] [address] Fernando Couch MD Lab (REM lab results) 10/07/2023 Refill [facility] [address] [place] [address] Yecenia Thrasher MD Refill Request (Ammonium LAC CREAM 12%) 10/03/2023 Orders Only [facility] Scanner 1 scan: (1-Ord) [facility] WITH DIFFERENTIAL, 10/03/2023 10/03/2023 Refill [facility] [address] [place] [address] Yecenia Thrasher MD Refill Request (Lachydrin) 10/03/2023 Telephone [facility] [address] [place] [address] Fernando Couch MD Lab 09/25/2023 Telephone [facility] [address] [place] [address] Fernando Couch MD Prior Authorization (ARIPiprazole (Abilify Maintena) 400 mg extended release injection (APPROVED 08/26/2023-09/24/2024)) 09/25/2023 Telephone [facility] [address] [place] [address] Fernando Couch MD Medication Management 09/25/2023 Telephone [facility] [address] [place] [address] Fernando Couch MD Medication Management from Last 3 Months Immunizations Name Administration Dates Next Due COVID-19 Vaccine Spikevax (M oderna 50mcg/0.5mL) 12YO+ [id number] Formula PF 03/14/2023 COVID-19 vaccine (Pfizer-Bio NTech [...] 1 1 Date Outcome GA Total Labor Labor/2nd/3rd Weight Sex Type Anes PTL Domenica A1 [...] 07/26/2023 10:44 AM CDT Plan of Treatment Upcoming Encounters Date Type Department Care Team (Late st Contact Info) Description 01/09/2024 12:10 PM CDT Office Visit [facility] [address] [place] [place] [address] Yecenia Thrasher MD [address] [place] [address] Health Maintenance Due Date Last Done Comments [...] 08/19/2023, Additional history exists Fecal testing sDNA-FIT ([place] guard) for age 45-75 06/05/2025 06/05/2022 Lipids for age 45-75 09/17/2028 09/18/2023, 05/25/2022, 06/18/2021, Additional history exists Tetanus booster 10/10/2032 10/10/2022 Hepatitis C screening for ag e 18-79 Completed 05/30/2021 Pneumococcal series for age 65+ Completed , 11/04/2020 Tdap Completed 10/10/2022 Medical Devices Implanted Type Area Beater Out Device Identifier Shelf Expiration Date Model / Serial / Lot Screw Locking 3.5 X 16 Implanted:Qty: 1 on 10/16/2022 by Delmer Sheth MD at [facility] Left: Arm [id number] / / Description:SCREW LOCKING 3. 5 X 16 Plate Olecranon 8h L 114mm Implanted:Qty: 1 on 10/16/2022 by Delmer Sheth MD at [facility] Left: Arm [id number] / / Description:PLATE OLECRANON 8H L 114MM Plate Strength 2.4mm 10 Hole Implanted:Qty: 1 on 10/16/2022 by Delmer Sheth MD at [facility] Left: Arm [id number] / / Description:PLATE STRENGTH 2 .4MM 10 HOLE Screw Locking 2.4 X 14 Implanted:Qty: 1 on 10/16/2022 by Delmer Sheth MD at [facility] Left: Arm [id number] / / Screw Locking 2.4 X 15 Implanted:Qty: 1 on 10/16/2022 by Delmer Sheth MD at [facility] Left: Arm [id number] / / Description:SCREW LOCKING 2. 4 X 15 Screw Locking 2.4 X 16 Implanted:Qty: 2 on 10/16/2022 by Delmer Sheth MD at [facility] Left: Arm [id number] / / Description:SCREW LOCKING 2. 4 X 16 Screw Cortex 2.7 X 16 Implanted:Qty: 1 on 10/16/2022 by Delmer Sheth MD at [facility] Left: Arm [id number] / / Description:SCREW CORTEX 2.7 X 16 Head Elbow Od22 Id12 Explor - [id number] Implanted:Qty: 1 on 10/16/2022 by Delmer Sheth MD at [facility] Left: Arm [employer] 06/30/2032 / / [id number] Stem Elbow 7x26mm Explor - [id number] Implanted:Qty: 1 on 10/16/2022 by Delmer Sheth MD at [facility] Left: Arm [employer] 09/08/2032 / / [id number] Screw 2.0 X 18 Implanted:Qty: 1 on 10/16/2022 by Delmer Sheth MD at [facility] Left: Arm [id number] / / Description:SCREW 2.0 X 18 Screw Bone 3.5x13mm Evos Small Cortex Slf Tppng - [id number] Implanted:Qty: 3 on 10/16/2022 by Delmer Sheth MD at [facility] Left: Arm [employer] [id number] / / Screw Bone 3.5x16mm Evos Small Cortex Slf Tppng - [id number] Implanted:Qty: 1 on 10/16/2022 by Delmer Sheth MD at [facility] Left: Arm [employer] [id number] / / Screw Locking 2.7 X 18 Implanted:Qty: 3 on 10/16/2022 by Delmer Sheth MD at [facility] Left: Arm [id number] / / Screw Locking 2.7 X 36 Implanted:Qty: 1 on 10/16/2022 by Delmer Sheth MD at [facility] Left: Arm [id number] / / Description:SCREW LOCKING 2. 7 X 36 Bone Matrix 5cc [place] [employer] Dbm - [id number] Implanted:Qty: 1 on 11/07/2022 by Delmer Sheth MD at [facility] Right: Arm [employer] 02/13/2025 [id number] / [id number] / Plate Strength 2.4mm 20 Hole Implanted:Qty: 1 on 11/07/2022 by Delmer Sheth MD at [facility] Right: Arm [id number] / / Description:PLATE STRENGTH 2 .4MM 20 HOLE Screw Locking 2.4 X 10 Implanted:Qty: 3 on 11/07/2022 by Delmer Sheth MD at [facility] Right: Arm [id number] / / Description:SCREW LOCKING 2. 4 X 10 Screw Locking 2.4 X 11 Implanted:Qty: 1 on 11/07/2022 by Delmer Sheth MD at [facility] Right: Arm [id number] / / Description:SCREW LOCKING 2. 4 X 11 Screw Locking 2.4 X 12 Implanted:Qty: 1 on 11/07/2022 by Delmer Sheth MD at [facility] Right: Arm [id number] / / Description:SCREW LOCKING 2. 4 X 12 Screw Cortex 2.4 X 10 Implanted:Qty: 1 on 11/07/2022 by Delmer Sheth MD at [facility] Right: Arm [id number] / / Description:SCREW CORTEX 2.4 X 10 Screw Cortex 2.4 X 12 Implanted:Qty: 1 on 11/07/2022 by Delmer Sheth MD at [facility] Right: Arm [id number] / / Description:SCREW CORTEX 2.4 X 12 Screw Bone 3.5x11mm Evos Small Cortex Slf Tppng - [id number] Implanted:Qty: 1 on 11/07/2022 by Delmer Sheth MD at [facility] Right: Arm [employer] [id number] / / Screw Bone 3.5x12mm Evos Small Cortex Slf Tppng - [id number] Implanted:Qty: 3 on 11/07/2022 by Delmer Sheth MD at [facility] Right: [facility] [employer] [id number] / / Screw Bone 3.5x13mm Evos Small Cortex Slf Tppng - [id number] Implanted:Qty: 2 on 11/07/2022 by Delmer Sheth MD at [facility] Right: Arm [employer] [id number] / / Screw Bone 3.5x15mm Evos Small Cortex Slf Tppng Implanted:Qty: 1 on 11/07/2022 by Delmer Sheth MD at [facility] Right: Arm [id number] / / Description:SCREW BONE 3.5X1 5MM EVOS SMALL CORTEX SLF TPPNG Screw Bone 3.5x13mm Evos Locks-T - [id number] Implanted:Qty: 1 on 11/07/2022 by Delmer Sheth MD at [facility] Right: Arm [employer] [id number] / / Screw Bone 3.5x12mm Evos Locks-T Implanted:Qty: 4 on 11/07/2022 by Delmer Sheth MD at [facility] Right: Arm [id number] / / Description:Screw Bone 3.5x1 2mm Evos Locks-T Plate Locking Compression 3.5mm 8h 93mm Implanted:Qty: 1 on 11/07/2022 by Delmer Sheth MD at [facility] Right: Arm [id number] / / Description:PLATE LOCKING CO MPRESSION 3.5MM 8H 93MM Plate Radial Shaft 12h 146mm Implanted:Qty: 1 on 11/07/2022 by Delmer Sheth MD at [facility] Right: Arm [id number] / / Description:PLATE RADIAL SHA FT 12H 146MM Explanted Type Area Beater Out Device Identifier Shelf Expiration Date Model / Serial / Lot K Wire Fix 150x1.6mm For Alysa-Loc - [id number] Explanted:Qty: 2 on 10/16/2022 at [facility] Left: Arm [employer] [id number] / / Explant Explanted:Qty: 1 on 11/07/2022 at [facility] Right: Arm Description:ULNA 1 PLATE 6 S CREWS, RADIUS 1 PLATE 6 SCREWS Procedures Procedure Name Priority Date/Time Associated Diagnosis Comments CBC WITH AUTO DIFFERENTIAL Routine 12/19/2023 11:17 AM CDT Long-term use of high-risk medication CBC WITH AUTO DIFFERENTIAL Routine 12/19/2023 11:17 AM CDT Long-term use of high-risk medication CBC WITH AUTO DIFFERENTIAL Routine 10/30/2023 3:30 PM CDT Long-term use of high-risk medication CBC WITH AUTO DIFFERENTIAL Routine 10/30/2023 3:30 PM CDT Long-term use of high-risk medication SCAN-LABORATORY REPORT 10/03/2023 12:00 AM CDT LIPID PANEL W REFLEX MEASURED LDL Routine 09/18/2023 12:09 PM CDT Long-term use of high-risk medication XR MAMMO RAFAT BILAT SCREEN Routine 08/20/2022 11:10 AM CDT Visit for screening mammogram SDNA-FIT EXTERNAL (COLOGUARD) Routine 06/05/2022 7:37 AM [facility]NA[facility] FORMER Screening for colon cancer ANTI HCV Routine 05/30/2021 10:19 AM FINGERNAIL FORMER Need for hepatitis C screening test from Last 3 Months or Most Recently Relevant to Health Maintenance Results * (ABNORMAL) CBC WITH AUTO DIFFERENTIAL (12/19/2023 11:17 AM [facility]) Only the most recent of2 resultswithin the time period is included. WHITE BLOOD COUNT 4.6 4.5 - 11.0 thou/cu mm 12/19/2023 11:45 AM [facility] RED BLOOD COUNT 3.85(L) 4.00 - 5.20 mil/cu mm 12/19/2023 11:45 AM [facility] HEMOGLOBIN 11.8(L) 12.0 - 16.0 g/dL 12/19/2023 11:45 AM [facility] HEMATOCRIT 36.3 33.0 - 51.0 % 12/19/2023 11:45 AM [facility] MCV 94 80 - 100 fL 12/19/2023 11:45 AM [facility] MCH 30.6 26.0 - 34.0 pg 12/19/2023 11:45 AM [facility] MCHC 32.5 32.0 - 36.0 g/dL 12/19/2023 11:45 AM [facility] RDW 13.9 11.5 - 15.5 % 12/19/2023 11:45 AM [facility] PLATELET COUNT 170 140 - 440 thou/cu mm 12/19/2023 11:45 AM [facility] MPV 10.4 6.5 - 11.0 fL 12/19/2023 11:45 AM [facility] % NEUT 70.1 % 12/19/2023 11:45 AM [facility] % LYMPH 22.5 % 12/19/2023 11:45 AM [facility] % MONO 7.2 % 12/19/2023 11:45 AM [facility] % EOS 0.0 % 12/19/2023 11:45 AM [facility] % BASO 0.2 % 12/19/2023 11:45 AM CDT [facility] ABSOLUTE NEUTROPHILS 3.2 1.7 - 7.0 thou/cu mm 12/19/2023 11:45 AM CDT [facility] ABSOLUTE LYMPHOCYTES 1.0 0.9 - 2.9 thou/cu mm 12/19/2023 11:45 AM CDT [facility] ABSOLUTE MONOCYTES 0.3 <0.9 thou/cu mm 12/19/2023 11:45 AM CDT [facility] ABSOLUTE EOSINOPHILS 0.0 <0.5 thou/cu mm 12/19/2023 11:45 AM CDT [facility] ABSOLUTE BASOPHILS 0.0 <0.3 thou/cu mm 12/19/2023 11:45 AM CDT [facility] Blood BLOOD SPECIMEN / Unknown Venipuncture / Unknown 12/19/2023 11:17 AM CDT 12/19/2023 11:19 AM CDT Narrative [facility] - 12/19/2023 11:45 AM CDT Please fax results to pharmacy so they can administer clozapine. This procedure was originally ordered at [facility]. Fernando Couch MD HEMATOLOGY [facility] [address] [place] [address] * SCAN-LABORATORY REPORT (10/03/2023 12:00 AM CDT) Scanner OTHER * LIPID PANEL W REFLEX MEASURED LDL (09/18/2023 12:09 PM CDT) CHOLESTEROL,TOTAL 118 100 - 199 mg/dL 09/19/2023 1:12 AM CDT [facility] Comment: Cholesterol, Total Reference Ranges Desirable <200 mg/dL Borderline 200-239 mg/dL High >=240 mg/dL TRIGLYCERIDES 81 <150 mg/dL 09/19/2023 1:12 AM CDT [facility] HDL CHOLESTEROL 70 >40 mg/dL 1:12 AM CDT [facility] NON-HDL CHOLESTEROL 48 <145 mg/dl 09/19/2023 1:12 AM CDT [facility] CHOL/HDL RATIO 1.69 <4.50 09/19/2023 1:12 AM CDT [facility] LDL CHOLESTEROL 32 <=130 mg/dL 09/19/2023 1:12 AM CDT [facility] VLDL CHOLESTEROL 16 <=30 mg/dL 09/19/2023 1:12 AM CDT [facility] PROVIDER ORDERED STATUS RANDOM 09/19/2023 1:12 AM CDT [facility] Blood BLOOD SPECIMEN / Unknown Venipuncture / Unknown 09/18/2023 12:09 PM CDT 09/18/2023 12:15 PM CDT Fernando Couch MD CHEMISTRY Performing Organization Address City/State/[facility] Co de Phone Number [facility] [address] [place] [id number], * XR MAMMO RAFAT BILAT SCREEN (08/20/2022 [...] For Patients: As a result of the 21st Century Cures Act, medical imaging exams and procedure reports are released immediately into your electronic medical record. You may view this report before your referring provider. If you have questions, please contact your health care provider. XR MAMMO RAFAT BILAT SCREEN [[id number]] CLINICAL HISTORY: ??This is an asymptomatic 67 y.o. patient. INDICATION FOR EXAM: Mammogram Screening. TECHNIQUE: CC & MLO views were obtained. ??This study was evaluated with the assistance of Computer-Aided Detection. Breast Tomosynthesis was used in interpretation. COMPARISON FILM: Yes 04/07/21 [facility] 01/19/20 [facility] FINDINGS: ??The breasts have scattered areas of fibroglandular density. There are no dominant masses, suspicious micro calcifications or areas of architectural distortion. Yecenia Thrasher MD MAMMO * SDNA-FIT EXTERNAL (COLOGUARD) (06/05/2022 7:37 AM FINGERNAIL FORMER) NONINV COLON CA DNA+OCC BLD SCRN STL-IMP Negative Negative 06/12/2022 11:42 PM FINGERNAIL FORMER [facility] (CLIA #:[id number]) Comment: NEGATIVE TEST RESULT. A negative Cologuard [...] cancer. ??Following a negative Cologuard result, the [place] [employer] and U.S. Multi-Society Task Force screening guidelines recommend a Cologuard re-screening interval of 3 years. References: [place] [employer] Guideline for Colorectal Cancer Screening: https://www.cancer.org/cancer/scxuw-lickyc-fzpzws/zrxzjithv-ihwhyavug-cntzjtz/ac s-rec ommendations.html.; Ayaan KOEHLER, Radha CR, Jacob ALFONSO, Colorectal Cancer Screening: Recommendations for Physicians and Patients from the U.S. Multi-Society Task Force on Colorectal Cancer Screening , Am J Gastroenterology 2017; 112:8690-5059. TEST DESCRIPTION: Composite algorithmic analysis of stool [...] Byrd et al, N Engl J Med 2014;370(14):2408-8994.) Cologuard may produce a false negative or false positive result (no colorectal cancer or precancerous polyp present at colonoscopy follow up). A negative Cologuard test result does not guarantee the absence of CRC or advanced adenoma (pre-cancer). The current Cologuard screening interval is every 3 years. ([place] [employer] and U.S. Multi-Society Task Force). Cologuard performance data in a 10,000 patient pivotal study using colonoscopy as the reference method can be accessed at the following location: www.[employer]com/results. Additional description of the Cologuard test process, warnings and precautions can be found at www.[facility] [employer].com. Stool specimen (specimen) (Rectum) 06/05/2022 7:37 AM FINGERNAIL FORMER 06/06/2022 12:39 PM FINGERNAIL FORMER Yecenia Thrasher MD URINE [facility] (CLIA #:[id number]) [place] [address], * ANTI HCV (05/30/2021 10:19 AM FINGERNAIL FORMER) HEPATITIS C ANTIBODY Non-React armida Non-React armida 05/30/2021 6:36 PM FINGERNAIL FORMER [facility] Comment:Antibodies to HCV no t detected; does not exclude the possibility of exposure to HCV. Blood BLOOD SPECIMEN / Unknown Venipuncture / Unknown 05/30/2021 10:19 AM [facility]ING[facility]NAIL FORMER 05/30/2021 10:19 AM FINGERNAIL FORMER Yecenia Thrasher MD SEND OUTS [facility] [address] [place] [address], [place] from Last 3 Months or Most Recently Relevant to Health Maintenance Advance Directives Documents on File Type Date Recorded Patient Project Management Consultant Expl anation POLST 10/23/2022 Healthcare Directive 05/24/2021 [...] Code Status Discussion: Reviewed Preferences Care Teams Salvager Relationship Specialty Start Date End Date Yecenia Thrasher MD [address] [place] [address] PCP - General Family Practice 04/07/21
--- OUTSIDE RECORDS SUMMARY | 2023-12-22 10:14 | XMS_ITS | Referral Summary ---
Author Organization [facility] Address [address] [place] [address] Care Team Providers Care Photogrammetric Stereo Compiler Name Role Phone Elsewhere, Pcp Primary Care Provider Unavailabl e Source Comments Patient records contain information from all sites at [facility]. For routine questions regarding patient records, call [phone] during business hours, M-F 8:00 AM - 5:00 PM Central Time. Record requests for emergency care only can be directed to [phone] at any time.[facility] Allergies No known active allergies Medications [...] Nodule Pulmonary 08/07/2018 Mass Lung 08/07/2018 Other [facility] Current Drug Therapy 05/26/2018 Apnea Sleep Obstructive [...] Beny Leggett M.D. LAB BLOOD ADD-O N [facility] [address] [place] [address], [facility] DTL [facility] [address] [place] [address] from Last 3 Months or Most Recently Relevant to Health Maintenance Advance Directives For more information, please contact: [phone] * Full Code (Latest Code Status on [...] Due to: Patient not available Care Teams Photogrammetric Stereo Compiler Relationship Specialty Start Date End Date Elsewhere, Pcp PCP - General Internal Medicine 01/24/23
--- OUTSIDE RECORDS SUMMARY | 2023-12-22 10:14 | XMS_ITS ---
Author Organization [facility] Address [address] [place] [address] Care Team Providers Care Hand I Cutter Name Role Phone Unavailable Unavailable Unavailable Surgery Details Not on file Complications Check Surgery Details section. Procedure Estimated Blood Loss Check Surgery Details section. Procedure Findings Check Surgery Details section. Procedure Specimens Taken Check Surgery Details section.
--- OUTSIDE RECORDS SUMMARY | 2023-12-22 10:14 | XMS_ITS | Clinical Summary ---
Author Organization [facility] Address [address] [place] [address] Care Team Providers Care Guest Services Manager Name Role Phone Elsewhere, Pcp Primary Care Provider Unavailabl e Source Comments Patient records contain information from all sites at [facility]. For routine questions regarding patient records, call [phone] during business hours, M-F 8:00 AM - 5:00 PM Central Time. Record requests for emergency care only can be directed to [phone] at any time.[facility] Allergies No known active allergies Medications [...] [facility] Pulmonary 08/07/2018 Mass Lung 08/07/2018 Other Retirement Current Drug Therapy 05/26/2018 Apnea Sleep Obstructive [...] 1955 Dilated Eye Exam 1955 FIT 1955 Hepatitis C Screening 1955 Office Visit for Blood Press ure Check / Re-check 1955 Urine Albumin 1955 Zoster Vaccines (1 of 2) 2005 Depression Screening (Annual PHQ-2) 04/29/2023 Fall Risk Screen (Annual) 04/29/2023 COVID-19 Vaccine ( - 2022-2 4 season) 2023 03/14/2023, 02/22/2022, 02/16/2021, Additional history exists Mammogram 08/21/2023 08/20/2022, 07/29, 04/07/2021, Additional history exists Hemoglobin A1C 09/12/2023 03/14/2023, 04/30, 02/22/2022, Additional history exists Influenza Vaccine (#1) 2024 [...] Beny Leggett M.D. LAB BLOOD ADD-O N [facility] [address] [place] [address], [facility] DTL [facility] [address] [place] [address] from Last 3 Months or Most Recently Relevant to Health Maintenance Advance Directives For more information, please contact: [phone] * Full Code (Latest Code Status on [...] Due to: Patient not available Care Teams Guest Services Manager Relationship Specialty Start Date End Date Elsewhere, Pcp PCP - General Internal Medicine 01/24/23
[2023-12-22 10:24] LABS: Troponin I* < 0.01 ng/mL (0.01-0.04)
[2023-12-22 10:27] LABS: PCR FLU A Negative PCR FLU A (Negative); PCR FLU B Negative PCR FLU B (Negative); PCR RSV Negative PCR RSV (Negative); SARS PCR* Negative SARS-CoV-2 (Negative)
[2023-12-22] MEDS: cefTRIAXone 1 GM in 0.9 % SODIUM CHLORIDE Mini-bag 100 ML IVPB (12:11)
--- NOTE | 2023-12-22 12:14 | P.IMHP_ITS ---
Hospitalist- H&P: HPI History of Present Illness Date Seen: 12/22/23 Chief complaint: rectal bleeding Narrative: Sarah Reyes is a 68 year old female who presented to the ER from [facility] for rectal bleeding. Known history of internal hemorrhoids, seen in our ER last month for this (bleeding at that time has since resolved). Has been referred to colorectal surgery, it doesn't appear that this followup has happened yet. Her bleeding had stopped until yesterday, when she started having bloody/maroon stools (5-6 in the afternoon/evening), with one episode of bloody diarrhea around 0330. Feels lightheaded and dizzy today. ER Course and Findings: - Hgb 11.2 (this is close to outpatient baseline; Hgb in clinic was 11.8 on 12/19/23), normal BUN - positive stool occult blood - no acute findings on CT Ab/Pelvis - hemodynamically stable without hypotension or tachycardia - noted to be hypoxic, 89-90% on RA at rest; CXR revealed a L lingular pneumonia. Given Rocephin and Azithromycin in ED - T 99.3, WBC 4.5 with normal differential Patient is admitted for serial Hgb, LGIB, pneumonia management. Sarah hasn't had a cough or fever that she's aware of. Denies Chest pain or dyspnea. Histories updated below, Dr. Thrasher is PCP locally. Sees Dr. Couch for Psych medication management. Review of Systems Status of ROS: Reports: 10 or more systems reviewed and unremarkable except as noted in History and below [facility] Medical History (Updated 12/22/23 @ 14:21 by Sonia Mckeon MD) Fracture of forearm, right, open ?S52.91XB - Unspecified fracture of right forearm, initial encounter for open fracture type I or II (ICD-10) Monteggia's fracture of left ulna ?S52.272A - Monteggia's fracture of left ulna, initial encounter for closed fracture (ICD-10) Insomnia ?G47.00 - Insomnia, unspecified (ICD-10) History of lung cancer ?Z85.118 - Personal history of other malignant neoplasm of bronchus and lung (ICD-10) Asthma ?J45.909 - Unspecified asthma, uncomplicated (ICD-10) Schizophrenia ?F20.9 - Schizophrenia, unspecified (ICD-10) Surgical History (Updated 12/22/23 @ 12:23 by Sonia Mckeon MD) H/O pneumonectomy ?Z98.890 - Other specified postprocedural states (ICD-10) ?Z90.2 - Acquired absence of lung [part of] (ICD-10) History of open reduction and internal fixation (ORIF) procedure (10/16/22) ?Z98.890 - Other specified postprocedural states (ICD-10) History of open reduction and internal fixation (ORIF) procedure (10/10/22) ?Z98.890 - Other specified postprocedural states (ICD-10) Social History (Updated 12/22/23 @ 14:18 by Sonia Mckeon MD) Narrative: Lives at [facility] in [place]. Sister Naomi is guardian and medical decision maker. Former smoker, no ETOH. Requests Full Code Status. Smoking Status: Former smoker How often do you have a drink containing alcohol: never AUDIT-C Alcohol total score: 0 Non-prescribed substance use: denies use service: No Meds Home Medications and Allergies Home Medications ?Medication ?Instructions ?Recorded ?Confirmed ?Type albuterol sulfate 90 mcg/actuation 2 puff inhalation QID PRN 10/11/22 12/22/23 History aerosol inhaler ammonium lactate 12 % topical cream 1 applic topical BID 10/11/22 12/22/23 History aripiprazole 10 mg tablet 10 mg PO HS 10/11/22 12/22/23 History aripiprazole 400 mg intramuscular 400 mg IM Q3W 10/11/22 12/22/23 History suspension,extended release (Abilify Maintena) atorvastatin 20 mg tablet 20 mg PO HS 10/11/22 12/22/23 History cholecalciferol (vitamin D3) 125 5,000 unit PO DAILY 10/11/22 12/22/23 History mcg (5,000 unit) tablet citalopram 20 mg tablet 20 mg PO DAILY 10/11/22 12/22/23 History docusate sodium 100 mg capsule 200 mg PO BID PRN 10/11/22 12/22/23 History furosemide 40 mg tablet 20 mg PO BID 10/11/22 12/22/23 History lisinopril 2.5 mg tablet 2.5 mg PO DAILY 10/11/22 12/22/23 History metoprolol succinate 25 mg 25 mg PO DAILY 10/11/22 12/22/23 History tablet,extended release 24 hr oxybutynin chloride 10 mg 10 mg PO DAILY 10/11/22 12/22/23 History tablet,extended release 24 hr pantoprazole 40 mg tablet,delayed 40 mg PO DAILY 10/11/22 12/22/23 History release trazodone 50 mg tablet 50 mg PO HS 10/11/22 12/22/23 History acetaminophen 500 mg capsule 1,000 mg PO Q6H PRN 11/20/23 12/22/23 History fluticasone furoate 100 1 inh inhalation DAILY 11/20/23 12/22/23 History mcg-vilanterol 25 mcg/dose inhalation powder (Breo Ellipta) clozapine 25 mg tablet 75 mg PO HS 12/22/23 12/22/23 History diltiazem HCl 60 mg 60 mg PO BID 12/22/23 12/22/23 History capsule,extended release 12 hr psyllium husk 2.6 gram/4.1 gram 1 tbsp PO DAILY 12/22/23 12/22/23 History oral powder Allergies Allergy/AdvReac Type Severity Reaction Status Date / Time No Known Drug Allergies Allergy Verified 12/22/23 10:53 Exam Narrative: Exam Narrative: GEN: Alert and laying comfortably in bed HEENT: Normal external ears. Edentulous. EOMIs bilaterally, no scleral icterus CV: RRR, harsh systolic murmur heard across precordium R: LCTA bilaterally without concerning wheezing, rales, or rhonchi. Air movement is adequate Ext: wwp, 4+ pitting edema up to bilateral knees Skin: Scattered bruising over extremities Neuro: No focal deficits, no resting tremor, gait not observed Psych: Mildly flat affect, otherwise appropriate Const: Vital Signs, click to edit/add: Vital Signs - 24 hr 12/22/23 09:16 12/22/23 09:17 12/22/23 09:17 Temperature 99.3 F Pulse Rate 95 95 Pulse Rate [Pulse Oximeter] 94 Respiratory Rate 22 Blood Pressure 112/71 Blood Pressure [Ri ght Upper Arm] 112/71 Pulse Oximetry 91 91 91 Oxygen Delivery Me thod Room Air 12/22/23 09:30 12/22/23 09:32 12/22/23 09:45 Temperature Pulse Rate 87 92 88 Pulse Rate [Pulse Oximeter] Respiratory Rate Blood Pressure 114/64 Blood Pressure [Ri ght Upper Arm] Pulse Oximetry 90 91 92 [facility] 12/[facility]/23 10:08 12/22/23 10:09 12/22/23 10:15 Temperature Pulse Rate 85 83 82 Pulse Rate [Pulse Oximeter] Respiratory Rate Blood Pressure 135/73 Blood Pressure [Ri ght Upper Arm] Pulse Oximetry 96 98 95 [facility] 12/22/23 11:05 12/22/23 11:06 12/22/23 11:07 Temperature Pulse Rate 77 82 76 Pulse Rate [Pulse Oximeter] Respiratory Rate Blood Pressure 131/74 Blood Pressure [Ri ght Upper Arm] Pulse Oximetry 96 93 96 [facility] 12/22/23 11:15 12/22/23 11:30 12/22/23 11:32 Temperature Pulse Rate 69 69 74 Pulse Rate [Pulse Oximeter] Respiratory Rate Blood Pressure 134/83 Blood Pressure [Ri ght Upper Arm] Pulse Oximetry 96 97 98 [facility] 12/22/23 11:45 12/22/23 12:07 Temperature Pulse Rate 87 89 Pulse Rate [Pulse Oximeter] Respiratory Rate Blood Pressure Blood Pressure [Ri ght Upper Arm] Pulse Oximetry 90 91 Oxygen Delivery [facility] Hospitalist - H&P: Result Labs Labs: Short CBC 12/22/23 Range/Units 09:42 WBC 4.50 (4.50-11.00) K/uL Hgb 11.1 L (12.0-16.0) gm/dL Hct 34.7 (33.0-51.0) % Plt Count 165 (140-440) K/uL BMP 12/22/23 09:42 Sodium 138 Potassium 3.7 Chloride 105 Carbon Dioxide 29 BUN 15 Creatinine 0.7 Glucose 104 Calcium 8.9 Cardiac Enzymes 12/22/23 Range/Units 09:42 Troponin I < 0.01 L (0.01-0.04) ng/mL Assessment and Plan Assessment and plan (1) Lower GI bleed: Problem comment: - likely 2/2 known internal hemorrhoids - ddx: UGIB, diverticular bleed - hemodynamic monitoring, serial Hgb, PPI Status: Acute (2) Community acquired pneumonia: Problem comment: - given Ceftriaxone and Azithromycin in ED, will continue - supplemental oxygen as needed Status: Acute (3) Type 2 diabetes mellitus: Problem comment: - controlled with diet/Metformin - last A1C 4.9 - accuchecks Status: Acute (4) Anemia: Problem comment: - acute on chronic with acute blood loss 2/2 stated lower GI bleed, current Hgb is close to outpatient baseline of 11.2 - follow Hgb, symptoms, VS Status: Acute (5) Hypertension: Problem comment: - continue home medications (Diltiazem, Lisinopril, Metoprolol) with holding parameters Status: Acute (6) Schizophrenia: Problem comment: - longstanding; Resident of [facility]. Dr. Couch at [facility] is psychiatrist - Clozapine, Abilify (HS and IM Q3 weeks), Celexa, Trazodone for sleep Status: Acute (7) Insomnia: Problem comment: - continue home Trazodone dosing Status: Acute (8) (HFpEF) heart failure with preserved ejection fraction: Problem comment: - no evidence of exacerbation - continue BB, Lasix, CCB, and SANDY, will monitor for hypotension given lower GI Bleed - last TTE 07/2022 Final Impressions: 1. Normal LV size, severely increased wall thickness in a predominately concentric pattern, normal global and regional systolic function with an estimated EF of 65 - 70%. 2. The aortic valve is trileaflet and sclerotic, mild stenosis and no regurgitation. The aortic valve peak velocity is 2.1 m/s, the peak gradient is 17 mmHg, and the mean gradient is 9 mmHg. The aortic valve area is 2.08 cm?? with a dimensionless index of 0.62. The stroke volume index is 42.6 ml/m??. 3. The mitral valve is sclerotic, mild mitral regurgitation. Mitral stenosis with mildly increased mean gradient of 3.0 mmHg at a heart rate of 60. 4. Mildly increased estimated pulmonary pressures by tricuspid regurgitation velocity and right atrial pressure (21 mmHg plus RAP which is 15-20 mm Hg based on IVC geometry). Status: Acute Plan - per above - Lovenox for ppx - back to [facility] when medically stable
[2023-12-22] MEDS: AZITHROMYCIN 500 MG in 0.9 % SODIUM CHLORIDE 250 ml 250 ML 255 MG IVPB (12:55)
--- NOTE | 2023-12-22 18:44 | PC.NURSE ---
Nursing Care Hours: [id number] Pt this shift arrived alert and oriented and fatigued. VSS, stable on room air. No cough noted, LS clear. No c/o pain. Wound on R elbow, pt unsure from what. Some serosanguineous discharge, red boarder. Mepilex applied. Another small wound on forearm, bandage left in place. Bilat pitting 3+ edema up to mid calf. Up in chair for meal.
[2023-12-22 18:59] LABS: Hemoglobin* 10.9 gm/dL (12.0-16.0)
[2023-12-22 20:04] LABS: Legionella pneumo Ag Urine L. pneumo Negative (Negative); S pneumo Ag Urine S. pneumo Negative (Negative)
[2023-12-22] MEDS: FUROSEMIDE 40 MG TABLET 20 MG PO (22:48)
[2023-12-22] MEDS: ATORVASTATIN 10 MG TABLET 20 MG PO (22:48)
[2023-12-22] MEDS: ARIPiprazole 10 MG TABLET PO (22:49)
[2023-12-22] MEDS: TRAZODONE HCL 50 MG TABLET PO (22:49)
[2023-12-22] MEDS: SODIUM CHLORIDE 0.9 % (FLUSH) 10 ML SYRINGE 5 ML IVF (22:50)
[2023-12-23 01:26] LABS: Hemoglobin* 10.1 gm/dL (12.0-16.0)
[2023-12-23 03:00] VITALS: BP 132/67; PULSE 69; RESP 20; O2SAT 94
[2023-12-23 04:34] VITALS: RESP 20; O2SAT 94
[2023-12-23 06:51] LABS: PCO2 VBG 41 mmHG (40-50); PO2 VBG 50.6 mmHG (25-47); pH VBG 7.479 (7.32-7.43)
[2023-12-23 06:52] LABS: HCO3 VBG 31 mmol/L (21-28)
[2023-12-23 06:56] LABS: Basophils Percent Auto 0.3 % (0.0-3.0); Hematocrit 33.7 % (33.0-51.0); Hemoglobin* 10.6 gm/dL (12.0-16.0); Immature Granulocytes Pct Auto 0.8 %; Lymphocytes Percent Auto 35.3 % (20-44); Mean Corpuscular HGB Conc 32 gm/dL (32-36); Mean Corpuscular Hemoglobin 30 pg (26-34); Mean Corpuscular Volume 94 fL (80-100); Monocytes Percent Auto 8.1 % (0.0-11.0); Neutrophils Percent Auto 55.5 % (42.0-72.0); Platelet Count* 123 K/uL (140-440); RDW Coefficient of Variation % 13.7 % (11.5-15.5); Red Blood Count 3.59 m/uL (4.00-5.20)
[2023-12-23 07:03] LABS: Slide Review Reflex No
[2023-12-23 07:18] LABS: Chloride* 108 mmol/L (96-114); Potassium* 3.8 mmol/L (3.6-5.1); Sodium* 138 mmol/L (135-149)
[2023-12-23 07:21] LABS: Anion Gap 3 mEq/L (7-15); Blood Urea Nitrogen* 14 mg/dL (7-30); Calcium* 8.5 mg/dL (8.4-10.6); Carbon Dioxide* 27 mmol/L (20-32); Creatinine* 0.5 mg/dL (0.5-1.5); Est. Creatinine Clearance* 44.54; Estimated Glomerular Filt Rate 102 ml/min; Glucose* 109 mg/dL (60-115)
[2023-12-23] MEDS: OMEPRAZOLE 20 MG CAPSULE DR 40 MG PO (07:46)
[2023-12-23 07:50] VITALS: BP 133/73; PULSE 57; RESP 16; TEMP 36.4; O2SAT 97
--- NOTE | 2023-12-23 07:55 | PC.NURSE ---
End of shift [id number] - Pt alert, oriented, cooperative. Up with standby assistance. Tolerating RA, regular diet/fluids. Pt denies pain, SOB, N/V. Observed to have 2 large BMs with veto red blood present. MD notified, no orders given as this condition was present prior to hospital stay. Pt observed to sleep, appears to be resting comfortably in chair at end of shift with call light within reach.
[2023-12-23] MEDS: lisinopriL 5 MG TABLET 2.5 MG PO (08:49)
[2023-12-23] MEDS: FUROSEMIDE 40 MG TABLET 20 MG PO (08:49)
[2023-12-23] MEDS: oxyBUTYnin chloride 5 MG TAB.ER.24 10 MG PO (08:50)
[2023-12-23] MEDS: AZITHROMYCIN 250 MG TABLET PO (08:51)
[2023-12-23] MEDS: CITALOPRAM HYDROBROMIDE 20 MG TABLET PO (08:51)
[2023-12-23] MEDS: METOPROLOL SUCCINATE (XL) 25 MG TAB PO (08:51)
[2023-12-23] MEDS: Fluticasone Furoate-Vilanterol [Breo Ellipta] 100-25 mcg/dose IH (08:51)
[2023-12-23] MEDS: SODIUM CHLORIDE 0.9 % (FLUSH) 10 ML SYRINGE 5 ML IVF ×2 (08:52→11:03)
--- NOTE | 2023-12-23 10:12 | PM.DS1 ---
DS: Providers Provider Date Seen: 12/23/23 Date of admission: 12/22/23 13:53 Primary care physician: Yecenia Thrasher MD Admitting Clinician: Sonai Mckeon MD Attending Physician on discharge: Sonia Mckeon MD Date of Discharge: 12/23/23 DS: Diagnosis Discharge Diagnosis (1) Lower GI bleed: Status: Acute Problem details: - likely 2/2 known internal hemorrhoids - ddx: UGIB, diverticular bleed - improved during stay, Hgb stable (2) Community acquired pneumonia: Status: Acute Problem details: - given Ceftriaxone and Azithromycin in ED, will continue - no hypoxia, discharge home on RA and full course of Azithromycin (3) Type 2 diabetes mellitus: Status: Acute Problem details: - controlled with diet/Metformin - last A1C 4.9 (4) Anemia: Status: Acute Problem details: - acute on chronic with acute blood loss 2/2 stated lower GI bleed, current Hgb is close to outpatient baseline of 11.2 - hemodynamically stable with no significant change in Hgb (5) Hypertension: Status: Acute Problem details: - continuede medications (Diltiazem, Lisinopril, Metoprolol) (6) Schizophrenia: Status: Acute Problem details: - longstanding; Resident of [facility]. Dr. Couch at [facility] is psychiatrist - Clozapine, Abilify (HS and IM Q3 weeks), Celexa, Trazodone for sleep (7) Insomnia: Status: Acute Problem details: - continue home Trazodone dosing (8) (HFpEF) heart failure with preserved ejection fraction: Status: Acute Problem details: - no evidence of exacerbation - continue BB, Lasix, CCB, and SANDY, will monitor for hypotension given lower GI Bleed - last TTE 07/2022 Final Impressions: 1. Normal LV size, severely increased wall thickness in a predominately concentric pattern, normal global and regional systolic function with an estimated EF of 65 - 70%. 2. The aortic valve is trileaflet and sclerotic, mild stenosis and no regurgitation. The aortic valve peak velocity is 2.1 m/s, the peak gradient is 17 mmHg, and the mean gradient is 9 mmHg. The aortic valve area is 2.08 cm?? with a dimensionless index of 0.62. The stroke volume index is 42.6 ml/m??. 3. The mitral valve is sclerotic, mild mitral regurgitation. Mitral stenosis with mildly increased mean gradient of 3.0 mmHg at a heart rate of 60. 4. Mildly increased estimated pulmonary pressures by tricuspid regurgitation velocity and right atrial pressure (21 mmHg plus RAP which is 15-20 mm Hg based on IVC geometry). DS: Summary Hospital Course Hospital Course: Sarah was admitted to the hospital yesterday for monitoring in the setting of lower GI bleed and community acquired pneumonia. She had a few episodes of hematochezia (known h/o internal hemorrhoids), improved during stay. Hgb 11.1 --> 10.1 --> 10.6, reassuring VS, asymptomatic. Also noted to have an incidental L sided infiltrate on CXR (performed given lower oxygen saturations of 89-91% on RA), treated with Rocephin and Azithromycin. Stable on RA throughout stay, no cough or fever. Sarah was medically appropriate for d/c home to [place] with close PCP f/u on 12/23/23. She will have her Hgb checked within the week and complete a course of Azithromyin, no changes made to home medications. Status at Discharge Overall status at discharge: patient is progressing back to baseline Time Spent with Patient Time attestation: Total time spent providing and/or coordinating discharge services: Time spent: Greater than 30 minutes Specific discharge activities: Medication management, collaboration with multidisciplinary care team Exam Narrative: Exam Narrative: GEN: Alert and sitting in bedside chair HEENT: Normal external ears, EOMIs bilaterally, no scleral icterus CV: RRR, harsh systolic murmur heard across precordium, unchanged R: LCTA bilaterally without concerning wheezing, air movement adequate Ext: 4+ pitting edema BLE, unchanged Skin: Scattered SKs over back Neuro: No focal deficits on limited exam Psych: Flat affect (baseline), appropriate Const: Vital Signs, click to edit/add: Vital Signs - 24 hr 12/22/23 10:15 12/22/23 11:05 12/22/23 11:06 Temperature Pulse Rate 82 77 82 Pulse Rate [Right Pulse Oximeter] Respiratory Rate Blood Pressure 131/74 Blood Pressure [Ri ght Arm] Pulse Oximetry 95 96 93 Oxygen Delivery Me thod 12/22/23 11:07 12/22/23 11:15 12/22/23 11:30 Temperature Pulse Rate 76 69 69 Pulse Rate [Right Pulse Oximeter] Respiratory Rate Blood Pressure Blood Pressure [Ri ght Arm] Pulse Oximetry 96 96 97 Oxygen Delivery Me thod 12/22/23 11:32 12/22/23 11:45 12/22/23 12:07 Temperature Pulse Rate 74 87 89 Pulse Rate [Right Pulse Oximeter] Respiratory Rate Blood Pressure 134/83 Blood Pressure [Ri ght Arm] Pulse Oximetry 98 90 91 Oxygen Delivery Me thod 12/22/23 12:15 12/22/23 12:33 12/22/23 12:49 Temperature Pulse Rate 71 79 Pulse Rate [Right Pulse Oximeter] Respiratory Rate Blood Pressure 118/104 H Blood Pressure [Ri ght Arm] Pulse Oximetry 94 89 Oxygen Delivery Me thod 12/22/23 13:02 12/22/23 13:09 12/22/23 13:16 Temperature Pulse Rate 92 87 Pulse Rate [Right Pulse Oximeter] Respiratory Rate Blood Pressure 91/74 Blood Pressure [Ri ght Arm] Pulse Oximetry 95 93 Oxygen Delivery Me thod 12/22/23 13:30 12/22/23 13:32 12/22/23 13:45 Temperature Pulse Rate 93 88 86 Pulse Rate [Right Pulse Oximeter] Respiratory Rate Blood Pressure 121/67 Blood Pressure [Ri ght Arm] Pulse Oximetry 95 94 93 Oxygen Delivery Me thod 12/22/23 14:05 12/22/23 14:10 12/22/23 15:00 Temperature 97.6 F Pulse Rate Pulse Rate [Right Pulse Oximeter] 84 Respiratory Rate 18 18 18 Blood Pressure Blood Pressure [Ri ght Arm] 116/65 Pulse Oximetry 93 93 93 Oxygen Delivery Me thod Room Air Room Air Room Air 12/22/23 16:43 12/22/23 23:00 12/23/23 03:00 Temperature 97.6 F Pulse Rate Pulse Rate [Right Pulse Oximeter] 84 61 69 Respiratory Rate 18 20 20 Blood Pressure Blood Pressure [Ri ght Arm] 116/65 122/70 132/67 Pulse Oximetry 93 95 94 Oxygen Delivery Me thod Room Air Room Air Room Air 12/23/23 04:34 12/23/23 07:50 12/23/23 07:50 Temperature Pulse Rate Pulse Rate [Right Pulse Oximeter] 57 L Respiratory Rate 20 16 16 Blood Pressure Blood Pressure [Ri ght Arm] Pulse Oximetry 94 97 Oxygen Delivery Me thod Room Air Room Air 12/23/23 07:50 Temperature 97.5 F L Pulse Rate Pulse Rate [Right Pulse Oximeter] 57 L Respiratory Rate 16 Blood Pressure Blood Pressure [Ri ght Arm] 133/73 Pulse Oximetry 97 Oxygen Delivery Me thod DS: Data Data Completed and Pending Completed studies during hospitalization: Procedures Compression of Right Upper Extremity using Pressure Dressing (10/11/22) Reposition Right Radius with Internal Fixation Device, Open Approach (10/11/22) Reposition Right Ulna with Internal Fixation Device, Open Approach (10/11/22) Labs on day of discharge: Labs from last 24 hours 12/23/23 12/23/23 12/22/23 06:07 01:20 Unknown WBC 3.60 L RBC 3.59 L Hgb 10.6 L 10.1 L Hct 33.7 MCV 94 MCH 30 MCHC 32 RDW Coeff of Emily 13.7 Plt Count 123 L Neut % (Auto) 55.5 Lymph % (Auto) 35.3 [place] % (Auto) 8.1 Eos % (Auto) 0.0 Baso % (Auto) 0.3 Neut # (Auto) 2.00 Lymph # (Auto) 1.30 [place] # (Auto) 0.30 Eos # (Auto) 0.00 Baso # (Auto) 0.00 Abs Immat Gran (auto) 0.00 Imm/Tot Granulo (auto) 0.8 INR VBG pH 7.479 H VBG pCO2 41 VBG pO2 50.6 H VBG HCO3 31 H Sodium 138 Potassium 3.8 Chloride 108 Carbon Dioxide 27 Anion Gap 3 L BUN 14 Creatinine 0.5 Estimated Creat Clear 44.54 Estimated GFR 102 Glucose 109 Calcium 8.5 Troponin I Urine L. pneumophilia Ag Urine Strep pneumoniae Ag SARS-CoV-2 (PCR) Negative SARS-CoV-2 Influenza Type A (PCR) Negative PCR FLU A Influenza Type B (PCR) Negative PCR FLU B RSV (PCR) Negative PCR RSV Blood Type Antibody Screen 12/22/23 12/22/23 12/22/23 19:30 18:55 09:42 WBC RBC Hgb 10.9 L Hct MCV MCH MCHC RDW Coeff of Emily Plt Count Neut % (Auto) Lymph % (Auto) [place] % (Auto) Eos % (Auto) Baso % (Auto) Neut # (Auto) Lymph # (Auto) [place] # (Auto) Eos # (Auto) Baso # (Auto) Abs Immat Gran (auto) Imm/Tot Granulo (auto) INR 0.93 VBG pH VBG pCO2 VBG pO2 VBG HCO3 Sodium 138 Potassium 3.7 Chloride 105 Carbon Dioxide 29 Anion Gap 4 L BUN 15 Creatinine 0.7 Estimated Creat Clear 44.54 Estimated GFR 94 Glucose 104 Calcium 8.9 Troponin I < 0.01 L Urine L. pneumophilia Ag L. pneumo Negative Urine Strep pneumoniae Ag S. pneumo Negative SARS-CoV-2 (PCR) Influenza Type A (PCR) Influenza Type B (PCR) RSV (PCR) Blood Type O Positive Antibody Screen NEGATIVE Discharge Plan Discharge Disposition: Home, Self-Care Date of Admission: 12/22/23 13:53 Attending Provider on Discharge: Sonia Mckeon Primary Care Provider: Yecenia Thrasher Condition: Improved Anticipated Discharge Date/Time: 12/23/23 10:10 Discharge Medications: New azithromycin 250 mg Tablet 250 mg PO Q24H Qty: 3 0RF Taper: Z-LEX 250 mg Q24H for 3 Days and 0 Hour Rx Instructions: 3 more days to complete 5 day course, start on 12/23 Continued albuterol sulfate 90 mcg/actuation HFA aerosol inhaler 2 puff inhalation QID PRN atorvastatin 20 mg tablet 20 mg PO HS ammonium lactate 12 % cream 1 applic topical BID citalopram 20 mg tablet 20 mg PO DAILY furosemide 40 mg tablet 20 mg PO BID lisinopril 2.5 mg tablet 2.5 mg PO DAILY trazodone 50 mg tablet 50 mg PO HS oxybutynin chloride 10 mg tablet extended release 24hr 10 mg PO DAILY pantoprazole 40 mg tablet,delayed release (DR/EC) 40 mg PO DAILY metoprolol succinate 25 mg tablet extended release 24 hr 25 mg PO DAILY cholecalciferol (vitamin D3) 125 mcg (5,000 unit) tablet 5,000 unit PO DAILY docusate sodium 100 mg capsule 200 mg PO BID PRN aripiprazole 10 mg tablet 10 mg PO HS Abilify Maintena 400 mg suspension,extended rel recon 400 mg IM Q3W fluticasone furoate-vilanterol [Breo Ellipta] 100-25 mcg/dose blister with device 1 inh inhalation DAILY acetaminophen 500 mg capsule 1,000 mg PO Q6H PRN clozapine 25 mg tablet 75 mg PO HS diltiazem HCl 60 mg capsule,extended release 12 hr 60 mg PO BID psyllium husk 2.6 gram/4.1 gram powder 1 tbsp PO DAILY Rx Instructions: mix into at least 8 oz of water or juice before administering Discharge Orders: Discharge Order (Routine); Ordered 12/23/23 Ordered By: Sonia Mckeon Activity Level: Activity as Tolerated Discharge Diet: Regular Follow Up Appointments: Yecenia Thrasher MD [Primary Care Provider] - (see Dr. Thrasher or one of her partners in 5-7 days for hospital f/u, Hgb recheck) Forms: [email or web address] Info Instructions
[2023-12-23 10:47] VITALS: BP 142/95; PULSE 88; RESP 18; TEMP 37; O2SAT 95
--- NOTE | 2023-12-23 10:56 | NUTR.NU ---
RDN with diet education related to diabetic diet. RDN attempted to visit with patient regarding diabetic diet, however patient was not available upon attempt. Patient to be discharged today.
[2023-12-23] MEDS: cefTRIAXone 1 GM in 0.9 % SODIUM CHLORIDE Mini-bag 100 ML IVPB (11:04)
[2023-12-23] MEDS: 0.9 % SODIUM CHLORIDE 250 ml IV (11:04)
--- NOTE | 2023-12-23 11:09 | PC.SOCIAL ---
Discharge planning: Pt is ready for discharge back to [facility] today. A nurse to nurse was completed and pt will be picked up by [facility] around noon. bible worker notified the charge nurse on duty. Social work to follow-up as needed.
--- NOTE | 2023-12-23 12:22 | PC.NURSE ---
Discharged: Pt is pleasant, alert, oriented and vitally stable. No complaints of pain. Up with stand by assist, physical therapy consulted. Pt on a regular diet and tolerates well. Pt had 2 BMs with veto red blood, denies light headedness, N/V, or SOB. Changed mepilex on elbow. IV removed, catheter intact. Nurse to nurse report given to [place] and POA updated.?
--- NOTE | 2023-12-23 12:23 | PC.NURSE ---
Blood sugar done around 11:15, value was 99. no insulin given per sliding scale. Pt did not each lunch, had requested that [facility] save her a tray.
--- NOTE | 2023-12-23 12:28 | PC.NURSE ---
Pt. transported by [facility] staff
== END 2023-12-23 12:00 | disposition home or self-care (01) ==
LOC: ED 10:12 → MEDSURG 13:53
PROVIDERS: Internal Medicine; Admitting Provider Family Medicine; Emergency Provider Emergency Medicine; PCP Family Medicine; Visit Provider Family Medicine
DX: K92.2 Gastrointestinal hemorrhage, unspecified (principal); J18.9 Pneumonia, unspecified organism; E11.9 Type 2 diabetes mellitus without complications; Z79.84 Long term (current) use of oral hypoglycemic drugs; D62 Acute posthemorrhagic anemia; F20.9 Schizophrenia, unspecified; G47.00 Insomnia, unspecified; I11.0 Hypertensive heart disease with heart failure; I50.30 Unspecified diastolic (congestive) heart failure
CPT/HCPCS: 36415; 71046; 74174; 80048; 82803; 82962; 84484; 85018; 85025; 85610; 86850; 86900; 86901; 87081; 87449; 87631; 87899; 93005; 96365; 96375; 97112; 97116; 97161; 97165; 99284; 99285; A9270; G0378; J0456; J0696; J7050; Q9967

== ENCOUNTER 2024-03-22 09:23 | Outpatient (CLI) | payer MEDICARE, MEDICAID, SELFPAY ==
--- OUTSIDE RECORDS SUMMARY | 2024-03-23 14:38 | XMS_ITS | Clinical Summary ---
Author Organization [facility] Address [address] [place] [address] Care Team Providers Care Traffic Personnel Supervisor Name Role Phone Elsewhere, Pcp Primary Care Provider Unavailabl e Source Comments Patient records contain information from all sites at [facility]. For routine questions regarding patient records, call [phone] during business hours, M-F 8:00 AM - 5:00 PM Central Time. Record requests for emergency care only can be directed to [phone] at any time.[facility] Allergies No known active allergies Medications * This document contains information received from the source organization and may not represent a complete record from that organization. acetaminophen (TYLENOL) 500 mg tablet Take 1,000 mg by mouth 3 (three) times a day. 08/17/19 17 Active albuterol (PROVENTIL HFA,VENTOLIN HFA) 90 mcg/actuation inhaler Inhale 2 puffs every 4 (four) hours as needed for wheezing or shortness of breath. 04/23/20 18 Active citalopram (CeleXA) 20 mg tablet Take 20 mg by mouth daily. 05/26/19 19 Active dilTIAZem SR (CARDIZEM SR) 60 mg 12 hr capsule Take 60 mg by mouth 2 (two) times a day. 04/23/20 18 Active fluticasone (FLONASE) 50 mcg/actuation nasal spray Administer 2 sprays into each nostril at bedtime. 5 05/11/19 19 Active metFORMIN (GLUCOPHAGE) 500 mg tablet Take 500 mg by mouth daily with breakfast. Active ADVAIR DISKUS 250-50 mcg/act diskus inhaler Inhale 1 puff 2 (two) times a day. 3 06/12/19 19 Active ammonium lactate (AMLACTIN) 12 % cream [...] 100 mg by mouth daily. Active lisinopriL (PRINIVIL,ZEST RIL) 2.5 mg tablet Take 2.5 mg by [...] 50 mg by mouth at bedtime. Active cholecalcifero l (VITAMIN D3) 125 mcg (5,000 Unit) capsule Take 125 mcg by mouth daily. Active furosemide (LASIX) 20 mg tablet Take 1 tablet (20 mg total) by mouth 2 (two) times a day. 180 tablet 01/31/20 Active ARIPiprazole (Abilify Maintena) 400 mg injection Inject 1 each (400 mg total) intramuscularly every 28 (twenty-eight) days. 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 05/26/2018 Apnea Sleep Obstructive 05/15/2018 Malignant Neoplasm Of Lung Adenocarcinoma Left 0 05/05/2018 Schizophrenia 05/05/2018 Diabetes Mellitus Type 2 05/05/2018 Nonrheumatic Mitral Valve Insufficiency 08/28/19 18 Edema Localized 09/27/2016 Metabolic Syndrome 06/12/2016 Asthma Mild Intermittent 08/11/2015 Obesity Body Mass Index 30-39.9 Adult 12/26/2014 Social History Tobacco Use Types Packs/Day Years Used Date Smoking Tobacco: Former Cigarettes 1 25 1 - 2004 Smokeless Tobacco: Never Tobacco Cessation:Counseling Given: No Alcohol Use Standard Drinks/Week Comments No 0 (1 standard drink = 0.6 oz pur e alcohol) Nutrition Answer Date Recorded Nutrition: EVOO Fat Source Unknown 06/18 Nutrition: Servings of Fruits/Vegetables per Day Not on file 06/18/2020 Dental Answer Date Recorded Dental: Regular Dentist Unknown 06/18/19 21 Comments No Sex and Gender Information Value Date Recorded Sex Assigned at Not on file 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[employer] Gender Identity Not on file Sexual Orientation Not on file Last Filed Vital Signs Vital Sign Reading Time Taken Comments Blood Pressure 157/85 01/30/2023 8:15 AM CDT Pulse 98 01/30/2023 8:15 AM CDT Temperature 36.7 C (98.1 F) 01/30/2023 8:15 AM CDT Respiratory Rate 18 01/30/2023 8:15 AM CDT Oxygen Saturation 97% 01/30/2023 8:15 AM CDT Inhaled Oxygen Concentration - - Weight 104 kg (228 lb 13.4 oz) 01/29/2023 4:21 A M CDT Height 160 cm (5' 3) 01/24/2023 3:05 PM CDT Body Mass Index 40.54 01/24/2023 3:05 PM CDT Plan of Treatment Health Maintenance Due Date Last Done Comments Bone Density Scan (Osteoporosis Screen) 1955 CT Colonography 1955 Diabetic Office Visit with Foot Exam 1955 Dilated Eye Exam 1955 FIT 1955 Hepatitis C Screening 1955 Office Visit for Blood Pressure Check / Re-check 1955 Urine Albumin 1955 Zoster Vaccines (1 of 2) 2005 Depression Screening (Annual PHQ-2) 04/29/2023 Fall Risk Screen (Annual) 04/29/2023 Hemoglobin A1C 09/12/2023 03/14/2023, 04/30, 02/22/2022, Additional history exists COVID-19 Vaccine ( season) 2023 03/14/2023, 02/22/2022, 02/16/2021, Additional history exists Influenza Vaccine (#1) 2024 , 02/22/2022, 04/07/2021, Additional history exists Creatinine Level (Kidney Function Test) 01/08/2025 01/09/2024, 03/14/2023, 02/15/2023, Additional history exists Potassium Level 01/08/2025 01/09/2024, 02/27, 02/15/2023, Additional history exists Sodium Level 01/08/2025 01/09/2024, 02/27, 02/15/2023, Additional history exists Mammogram 01/13/2025 01/14/2024, 12/28, 08/20/2022, Additional history exists Cologuard 06/12/2025 06/12/2022 Lipid (Cholesterol) Screening 01/08/2029 01/09/2024, 09/18/2023, 05/25/2022, Additional history exists DTaP,Tdap,and Td Vaccines (2 - Td or Tdap) 10/10/2032 10/10/2022 Colonoscopy 01/25/2033 01/25/2023, 12/29, 05/05/2021, Additional history exists Colorectal Cancer Screening 01/25/2033 Cervical/Vaginal Cancer Screening Discontinued 01/10/2021 Pneumococcal vaccine (65+ years) Completed 05/25/2022, 11/04/2020, 01/01/2015 Glucose Test for Med Monitoring Discontinued 01/09/2024, 03/14/2023, 02/15/2023, Additional history exists IPV Vaccines Aged Out No longer eligi ble based on patient's age to complete this topic Procedures Procedure Name Priority Date/Time Associated Diagnosis Comments BASIC METABOLIC PANEL, S/P Routine 01/30/2023 7:10 AM CDT COLONOSCOPY Routine 01/25/2023 8:58 AM CDT from Last 3 Months or Most Recently Relevant to Health Maintenance Insurance MEDICARE [place] MEDICA[place] Advance Directives For more information, please contact: [phone] * Full Code (Latest Code Status on [...] Due to: Patient not available Care Teams Traffic Personnel Supervisor Relationship Specialty Start Date End Date Elsewhere, Pcp PCP - General Internal Medicine 01/24/23
--- OUTSIDE RECORDS SUMMARY | 2024-03-23 14:38 | XMS_ITS | Referral Summary ---
Author Organization [facility] Address [address] [place] [address] Care Team Providers Care Aircraft Dispatcher Name Role Phone Elsewhere, Pcp Primary Care Provider Unavailabl e Source Comments Patient records contain information from all sites at [facility]. For routine questions regarding patient records, call [phone] during business hours, M-F 8:00 AM - 5:00 PM Central Time. 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
--- OUTSIDE RECORDS SUMMARY | 2024-03-23 14:38 | XMS_ITS ---
Author Organization [facility] Address [address] [place] [address] Care Team Providers Care Erp Business Analyst Name Role Phone Unavailable Unavailable Unavailable Surgery Details Not on file Complications Check Surgery Details section. Procedure Estimated Blood Loss Check Surgery Details section. Procedure Findings Check Surgery Details section. Procedure Specimens Taken Check Surgery Details section.
--- OUTSIDE RECORDS SUMMARY | 2024-03-23 14:38 | XMS_ITS | Clinical Summary ---
Author Organization [facility] Address [place], [place] [address] Care Team Providers Care Gauger Delivery Name Role Phone Yecenia Thrasher MD Primary Care Provide r Allergies No known active allergies Medications Medication Sig Dispensed Refills Start Date End Date Status CPAPIndications:OS A (obstructive sleep apnea) CPAP machine for home use at pressure 15cmw epr 3, full face mask x1/3month with a full face cushion x1/mo 1 Each 11 4 024 Discontinued( Reorder (E-cancel not sent)) lactobacillus rhamnosus, GG, (CULTURELLE) 10 billion cell capsuleIndications :Chronic diarrhea Take 1 Capsule by mouth once daily. 90 Capsule 3 4 Suspended Additional Information acetaminophen (TYLENOL EXTRA STRGTH) 500 mg tabletIndications: Status post open reduction and internal fixation (ORIF) of fracture Take 2 Tablets (1,000 mg) by mouth every 6 hours if needed for Pain. 4 Suspended medication order composerIndication s:Acute diarrhea Kefir, 1-3 cups (237-710 mL) per day 4 024 Discontinued( Reorder (E-cancel not sent)) medication order composerIndication s:Loose stools Patient can have 1/2 cup of kefir daily brought in by her sister Naomi 4 024 Discontinued( Reorder (E-cancel not sent)) ARIPiprazole (Abilify) 10 mg tabletIndications: Other schizophrenia (HC) Take 1 Tablet (10 mg) by mouth at bedtime. 28 Tablet 12 4 Suspended Additional Information citalopram (CELEXA) 20 mg tabletIndications: Other schizophrenia (HC) Take 1 Tablet (20 mg) by mouth every morning. 28 Tablet 4 Suspended Additional Information traZODone (DESYREL) 50 mg tabletIndications: Other schizophrenia (HC) Take 1 Tablet (50 mg) by mouth at bedtime. 28 Tablet 4 Suspended Additional Information cloZAPine (CLOZARIL) 25 mg tabletIndications: Other schizophrenia (HC) Take 3 Tablets (75 mg) by mouth at bedtime. 84 Tablet 12 4 Suspended Additional Information fluticasone furoate-vilanteroL (BREO ELLIPTA) 100-25 mcg/dose inhalation powderIndications: Chronic obstructive pulmonary disease, unspecified COPD type (HC) Inhale 1 Puff by mouth once daily. Rinse mouth after use 180 Each 3 4 024 Discontinued( Pharmacist change per medication history (E-cancel not sent)) ammonium lactate 12% (LACHYDRIN) 12 % creamIndications:C allus of foot Apply topically to affected area(s) two times daily. Apply to both feet twice daily. 385 g 5 4 Suspended Additional Information ARIPiprazole (Abilify Maintena) 400 mg extended release injectionIndicatio ns:Paranoid schizophrenia (HC) Inject 2 mL (400 mg) intramuscular every 3 weeks. 2 mL 11 4 Suspended Additional Information dilTIAZem SR (CARDIZEM SR) 60 mg extended release 12 hr capsuleIndications :HTN (hypertension) Take 1 Capsule (60 mg) by mouth two times daily. 180 Capsule 3 4 Suspended Additional Information lisinopriL (PRINIVIL; ZESTRIL) 2.5 mg tabletIndications: Hypertension, unspecified type Take 1 Tablet (2.5 mg) by mouth once daily. 90 Tablet 3 4 Suspended Additional Information metoprolol succinate (TOPROL XL) 25 mg Sustained-Release tabletIndications: Hypertension, unspecified type Take 1 Tablet (25 mg) by mouth once daily. 90 Tablet 3 4 Suspended Additional Information atorvastatin (LIPITOR) 20 mg tabletIndications: Hyperlipidemia, unspecified hyperlipidemia type Take 1 Tablet (20 mg) by mouth at bedtime. 90 Tablet 3 4 Suspended Additional Information ferrous gluconate 324 mg (37 mg iron) tabletIndications: Iron deficiency anemia due to chronic blood loss Take 1 Tablet by mouth once daily with a meal. 90 Tablet 3 4 Suspended Additional Information pantoprazole (PROTONIX) 40 mg delayed-release tabletIndications: Chronic GERD Take 1 Tablet (40 mg) by mouth once daily. 90 Tablet 3 4 Suspended Additional Information oxybutynin XL (DITROPAN XL) 10 mg CR tabletIndications: Urinary urgency Take 1 Tablet (10 mg) by mouth once daily. 90 Tablet 3 4 Suspended Additional Information furosemide (LASIX) 20 mg tabletIndications: Bilateral lower extremity edema Take 1 Tablet (20 mg) by mouth two times daily. 180 Tablet 3 4 Suspended Additional Information cholecalciferol (VITAMIN D3) 5,000 unit capsuleIndications :Controlled type 2 diabetes mellitus without complication, without long-term current use of insulin (HC) Take 1 Capsule (5,000 units) by mouth once daily. 90 Capsule 3 4 Suspended Additional Information Breo Ellipta 100-25 mcg/dose inhalation powderIndications: Chronic obstructive pulmonary disease, unspecified COPD type (HC) INHALE 1 PUFF ONCE DAILY -RINSE MOUTH WITH WATER AFTER USE TO REDUCE AFTERTASTE & INCIDENCE OF CANDIDIASIS, DO NOT SWALLOW- 60 Each 4 Suspended Additional Information albuterol HFA (PRO-AIR; VENTOLIN; PROVENTIL) 90 mcg/actuation inhalerIndications :Chronic obstructive pulmonary disease, unspecified COPD type (HC) Inhale 2 Puffs by mouth 4 times daily if needed for Shortness of Breath 1st choice. 1 Each 5 4 Suspended Additional Information ibuprofen (ADVIL; MOTRIN) 600 mg tabletIndications: Bilateral hip pain,Pain in both knees, unspecified chronicity Take 1 Tablet (600 mg) by mouth every 6 hours if needed for Pain. Maximum of 3200 mg in 24 hours. 4 Suspended Additional Information psyllium husk 2.6 gram/4.1 gram powd Mix 15 mL in liquid then take by mouth once daily. Mix 1 tablespoon in 8 oz of water and drink 4 Suspended sennosides-docusat e (Senna with Docusate Sodium) (8.6-50 mg) tablet Take 2 Tablets by mouth 2 times daily if needed for Constipation. Suspended Milk of Magnesia 400 mg/5 mL suspension Take 15-30 mL by mouth once daily if needed for Constipation. Suspended zinc oxide topical Apply topically to affected area(s) after diaper change. 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 06/06/2023 Chronic heart failure with p reserved ejection fraction (HFpEF) 11/06/2022 Hypertension 11/06/2022 GERD (gastroesophageal reflux disease) Chronic anemia 11/06/2022 Hyperlipemia 11/06/2022 Failed right forearm ORIF 11/06/2022 Chronic obstructive pulmonar y disease, unspecified COPD type 03/13/2022 Normocytic anemia 06/30/2021 Bilateral lower extremity edema 06/23/2021 Generalized muscle weakness 06/18/2021 Vitamin D deficiency 06/18/2021 DUB (dysfunctional uterine bleeding) 05/19/2021 Polyneuropathy due to type 2 diabetes mellitus 1 06/25/2020 Controlled substance agreement signed 02/20/2021 Overview (02/20/2021): 12/26/20 Minna Deleon MD/psychiatry Psychophysiological insomnia 11/24/2018 FPC current use of clozapine 05/26/2018 Paranoid schizophrenia 05/15/2018 KEVIN 03/13/2018 AHI-16 05/15/2018 Adenocarcinoma of lung 05/05/2018 Nonrheumatic mitral valve insufficiency 08/28/19 18 Metabolic syndrome 06/12/2016 Mild intermittent asthma 08/11/2015 Class 3 severe obesity in adult 12/26/2014 Resolved Problems Problem Noted Date Diagnosed Date Resolved Date Community acquired pneumonia 03/22/2024 03/22/2024 Overview (03/22/2024): - given Ceftriaxone and Azithromycin in ED, will continue - no hypoxia, discharge home on RA and full course of Azithromycin Lower GI bleed 03/22/2024 03/22/2024 Overview (03/22/2024): - likely 2/2 known internal hemorrhoids - ddx: UGIB, diverticular bleed - improved during stay, Hgb stable Fracture of forearm with nonunion 03/22/2024 03/22/2024 Acute pulmonary edema 06/06/20232023 S/P Left olecranon ORIF and radial head replacement DOS:10/16/[address] Delmer Sheth 03/05/2023 03/22/2024 S/P Right distal radius hard neely removal and ORIF DOS:11/07/2022 Dr.Kamil Sheth 03/05/20232023 S/P Right distal radius hard neely removal and ORIF DOS:11/07/2022 Dr.Kamil Sheth 11/19/20222022 S/P Left olecranon ORIF and radial head replacement DOS:10/16/2022 Dr. Delmer Sheth 11/19/2022 03/05/2023 Forearm fractures, both bone s, closed, right, sequela 11/09/2022 03/22/2024 Status post open reduction a nd internal fixation (ORIF) of fracture 11/08/2022 03/22/2024 Overview (11/08/2022): Right radius/ulna. Diabetes mellitus type 2, no ninsulin dependent 11/06/2022 01/09/2024 Insomnia 11/06/2022 10/22/2023 Closed olecranon fracture, l eft, initial encounter 10/17/2022 03/22/2024 Radial head dislocation, lef t, initial encounter 10/17/2022 03/22/2024 Acute diastolic heart failure 07/28/2022 11/06/2022 Cellulitis of left lower extremity 07/28/2022 03/22/2024 COVID-19 virus infection 06/30/2021 DM2 (diabetes mellitus, type 2) 06/30/2021 11/06/2022 history of small bowel obstruction 05/19/2021 03/22/2024 Symptomatic anemia 05/19/2021 3 Asthma 11/06/2022 Closed Monteggia's fracture of left arm 03/22/2024 Encounters Date Type Department Care Team Description 03/23/2024 12:49 PM CASTING MACHINE SERVICE OPERATOR Anesthesia Event [facility] [address] [place] [address] Yaya Zambrano MD Keefer, Jacob Robert, CRNA 03/23/2024 11:27 AM CASTING MACHINE SERVICE OPERATOR - 03/23/2024 1:35 PM CASTING MACHINE SERVICE OPERATOR Surgery [facility] [address] [place] [facility] [place] [address] Gigi Arreaga MD INSERTION LEFT INTRAMEDULLARY TUYET FEMUR 03/22/2024 7:27 PM CASTING MACHINE SERVICE OPERATOR - Present Hospital Encounter [facility] [address] [facility] [place] [address] Rory Ibanez MD Service, Core Trauma Med, [place] [facility] Closed fracture of left hip, initial encounter (HC) (Primary Dx) 03/22/2024 9:52 AM CASTING MACHINE SERVICE OPERATOR - 03/22/2024 5:52 PM CASTING MACHINE SERVICE OPERATOR Emergency [facility] [address] [place] [address] Guille Salgado MD Closed nondisplaced intertrochanteric fracture of left femur, initial encounter (HC) (Primary Dx) Discharge Disposition: Health Care Facility Not On List 03/22/2024 Travel 03/17/2024 3:20 PM CASTING MACHINE SERVICE OPERATOR - 03/17/2024 7:41 PM CASTING MACHINE SERVICE OPERATOR Emergency [facility] [address] [place] [address] Madelin Riley MD Bilateral hip pain (Primary Dx); Pain in both knees, unspecified chronicity Discharge Disposition: Home Self Care 03/17/2024 Travel 03/17/2024 Medical Messaging [facility] [address] [place] [address] Yecenia Thrasher MD FYI on 02/26/2024 Telephone [facility] [address] [place] [address] Fernando Couch MD REMS 02/25/2024 9:40 AM CDT Office Visit [facility] [address] [facility] [address] [place] [address] Joan Muñoz, DPM Foot Problem ([place]/callus bottom of left foot ) 02/24/2024 Travel 02/20/2024 Telephone [facility] [address] [place] [address] Rinku Mandel MD Appointment Request (CPAP FOLLOW-UP) 02/17/2024 Orders Only [facility] Scanner 1 scan: (1-Ord) [facility], CBC W/ DIFFERENTIAL LAB RESULT, 02/17/2024 01/28/2024 Telephone [facility] [address] [place] [address] Fernando Couch MD REMS 01/23/2024 Orders Only [facility] Scanner 1 scan: (1-Ord) [facility], CBC W/ DIFFERENTIAL RESULTS, 01/23/2024 01/21/2024 Refill [facility] [address] [place] [address] Yecenia Thrasher MD Refill Request (ALBUTEROL) 01/15/2024 Telephone [facility] [address] [place] [address] Fernando Couch MD REMS 01/14/2024 2:30 PM CDT Ancillary Procedure [facility] [address] [place] [address] 01/14/2024 1:40 PM CDT Ancillary Procedure [facility] [address] [place] [address] 01/14/2024 Travel 01/13/2024 Refill [facility] [address] [facility] [address] Yecenia Thrasher MD Refill Request ([facility]) 01/09/2024 12:10 PM CDT Office Visit [facility] [address] [place] [address] Yecenia Thrasher MD Medicare ANNUAL (subsequent) Visit (68 yo Female/Was hospitalized a couple weeks ago. Rectal bleeding. Had hemorrhoids banded a few weeks prior, contributed blood to this. Incidentally found to have pneumonia.) 01/09/2024 Travel 12/22/2023 Orders Only [facility] Scanner 1 scan: (1-Ord) [facility], ANGIO ABD PEL , 12/22/2023 12/22/2023 Orders Only [facility] Scanner 1 scan: (1-Ord) [facility], CHEST 2V, 12/22/2023 from Last 3 Months Immunizations Name Administration Dates Next Due COVID-19 VACCINE SPIKEVAX (M ODERNA 50MCG/0.5ML) 12YO+ PFS 03/14/2023 COVID-19 vaccine (Pfizer-Bio NTech 30mcg/0.3mL) 12YO+ [...] Alcoholism Mother Depression Mother Other Sister hysterectomy Cancer-breast No Family History Cancer-ovarian No Family History Relation Name Status Comments Father Half-Sister Alive [...] Answer Date Recorded PHQ-2 TOTAL SCORE 1 01/09/2024 Social Connections Answer Date Recorded Do you often feel lonely or isolated from those around you? 0 03/23/2024 Financial Resource Strain Answer Date R ecorded Difficulty of Paying Living Expenses 3 01/09/2024 Difficulty of Paying Living Expenses Not on file 01/09/2024 Food Insecurity Answer Date Recorded Do you worry your food will run out before you are able to buy more? 1 03/23/2024 Transportation Needs Answer Date Record ed Does lack of transportation keep you from medica l appointments? 1 03/23/2024 Does lack of transportation keep you from work, meetings or getting things that you need? 1 03/23/2024 Housing Stability Answer Date Recorded What is your housing situation today? 1 03/23/2024 Sex and Gender Information Value Date Recorded [...] Sign Reading Time Taken Comments Blood Pressure 127/60 03/23/2024 2:30 PM CASTING MACHINE SERVICE OPERATOR Pulse 90 03/23/2024 2:30 PM CASTING MACHINE SERVICE OPERATOR Temperature 36.6 C (97.9 F) 03/23/2024 2:30 PM CASTING MACHINE SERVICE OPERATOR Respiratory Rate 16 03/23/2024 2:30 PM CASTING MACHINE SERVICE OPERATOR Oxygen Saturation 96% 03/23/2024 2:30 PM CASTING MACHINE SERVICE OPERATOR Inhaled Oxygen Concentration - - Weight 102.1 kg (225 lb) 03/22/2024 7:43 PM CASTING MACHINE SERVICE OPERATOR Height 160 cm (5' 3) 03/22/2024 7:43 PM CASTING MACHINE SERVICE OPERATOR Body Mass Index 39.86 03/22/2024 7:43 PM CASTING MACHINE SERVICE OPERATOR Plan of Treatment Upcoming Encounters Date Type Department Care Team (Late st Contact Info) Description 04/01/2024 9:00 AM CASTING MACHINE SERVICE OPERATOR Office Visit [facility] [place] [address] [place] [address] [place] [address] Rinku Mandel MD [address] [place] [address] Scheduled Procedures Name Priority Associated Diagnoses Date/Ti me INSERTION INTRAMEDULLARY TUYET FEMUR Class D Urgent Left hip fracture 03/23/2024 12:34 PM CASTING MACHINE SERVICE OPERATOR Health Maintenance Due Date Last Done Comments Zoster (shingles) series for age 50+ (1 of 2) 1974 Influenza for age 65+ 12/29/2023 03/14/2023 , 02/22/2022, 04/07/2021, Additional history exists COVID-19 vaccine series ( season) 2024 02/04/2024, 03/14/2023, 02/22/2022, Additional history exists BMI (ht and wt on same day) for age 18+ 01/08/2025 01/09/2024, 09/27/2022, 08/22/2022, Additional history exists Depression screening for age 12+ 01/08/2025 01/09/2024, 10/22/2023, 09/18/2023, Additional history exists Medicare Wellness for age 65+ 01/09/2025, 11/04/2020, 01/29/2019 Mammogram for age 45-75 01/13/2025 01/14/20 24, 08/20/2022, 04/07/2021, Additional history exists Fecal testing sDNA-FIT ([place] guard) for age 45-75 06/05/2025 06/05/2022 Lipids for age 45-75 01/08/2029 01/09/2024, 09/18/2023, 05/25/2022, Additional history exists Tetanus booster 10/10/2032 10/10/2022 Hepatitis C screening for ag e 18-79 Completed 05/30/2021 Pneumococcal series for age 65+ Completed , 11/04/2020 Tdap Completed 10/10/2022 DEXA/DXA scan for age 65+ Completed 01/14/2024 Medical Devices Implanted Type Area Spine Surgeon Device Identifier Shelf Expiration Date Model / Serial / Lot Screw Locking 3.5 X 16 Implanted:Qty: 1 on 10/16/2022 by Delmer Sheth MD at [facility] Left: Arm [id number] / / Description:SCREW LOCKING 3. 5 X 16 Plate Olecranon 8h L 114mm Implanted:Qty: 1 on 10/16/2022 by Delmer Sheth MD at [facility] Left: Arm [id number] / / Description:PLATE OLECRANON 8H L 114MM Plate Strength 2.4mm 10 Hole Implanted:Qty: 1 on 10/16/2022 by Delmer Sheth MD at [facility] Left: Arm [id number] / / Description:PLATE STRENGTH 2 .4MM 10 HOLE Screw Locking 2.4 X 14 Implanted:Qty: 1 on 10/16/2022 by Delmer Sheth MD at [facility] Left: Arm [id number] / / Screw Locking 2.4 X 15 Implanted:Qty: 1 on 10/16/2022 by Delmer Sheth MD at [facility] Left: Arm [id number] / / Description:SCREW LOCKING 2. 4 X 15 Screw Locking 2.4 X 16 Implanted:Qty: 2 on 10/16/2022 by Delmer Sheth MD at [facility] Left: Arm [id number] / / Description:SCREW LOCKING 2. 4 X 16 Screw Cortex 2.7 X 16 Implanted:Qty: 1 on 10/16/2022 by Delmer Sheth MD at [facility] Left: Arm [id number] / / Description:SCREW CORTEX 2.7 X 16 Head Elbow Od22 Id12 Explor - [id number] Implanted:Qty: 1 on 10/16/2022 by Delmer Sheth MD at [facility] Left: Arm [employer] 06/30/2032 / / [id number] Stem Elbow 7x26mm Explor - [id number] Implanted:Qty: 1 on 10/16/2022 by Delmer Sheth MD at [facility] Left: Arm [employer] 09/08/2032 / / [id number] Screw 2.0 X 18 Implanted:Qty: 1 on 10/16/2022 by Delmer Sheth MD at [facility] Left: Arm [id number] / / Description:SCREW 2.0 X 18 Screw Bone 3.5x13mm Evos Small Cortex Slf Tppng - [id number] Implanted:Qty: 3 on 10/16/2022 by Delmer Sheth MD at [facility] Left: Arm [employer] [id number] / / Screw Bone 3.5x16mm Evos Small Cortex Slf Tppng - [id number] Implanted:Qty: 1 on 10/16/2022 by Delmer Sheth MD at [facility] Left: Arm [employer] [id number] / / Screw Locking 2.7 X 18 Implanted:Qty: 3 on 10/16/2022 by Delmer Sheth MD at [facility] Left: Arm [id number] / / Screw Locking 2.7 X 36 Implanted:Qty: 1 on 10/16/2022 by Delmer Sheth MD at [facility] Left: Arm [id number] / / Description:SCREW LOCKING 2. 7 X 36 Bone Matrix 5cc [employer] m - [id number] Implanted:Qty: 1 on 11/07/2022 by Delmer Sheth MD at [facility] Right: Arm [employer] Sp[employer]/Ortho 02/13/2025 [id number] / [id number] / Plate Strength 2.4mm 20 Hole Implanted:Qty: 1 on 11/07/2022 by Delmer Sheth MD at [facility] Right: Arm [id number] / / Description:PLATE STRENGTH 2 .4MM 20 HOLE Screw Locking 2.4 X 10 Implanted:Qty: 3 on 11/07/2022 by Delmer Sheth MD at [facility] Right: Arm [id number] / / Description:SCREW LOCKING 2. 4 X 10 Screw Locking 2.4 X 11 Implanted:Qty: 1 on 11/07/2022 by Delmer Sheth MD at [facility] Right: Arm [id number] / / Description:SCREW LOCKING 2. 4 X 11 Screw Locking 2.4 X 12 Implanted:Qty: 1 on 11/07/2022 by Delmer Sheth MD at [facility] Right: Arm [id number] / / Description:SCREW LOCKING 2. 4 X 12 Screw Cortex 2.4 X 10 Implanted:Qty: 1 on 11/07/2022 by Delmer Sheth MD at [facility] Right: Arm [id number] / / Description:SCREW CORTEX 2.4 X 10 Screw Cortex 2.4 X 12 Implanted:Qty: 1 on 11/07/2022 by Delmer Sheth MD at [facility] Right: Arm [id number] / / Description:SCREW CORTEX 2.4 X 12 Screw Bone 3.5x11mm Evos Small Cortex Slf Tppng - [id number] Implanted:Qty: 1 on 11/07/2022 by Delmer Sheth MD at [facility] Right: [facility] [employer] [id number] / / Screw Bone 3.5x12mm Evos Small Cortex Slf Tppng - [id number] Implanted:Qty: 3 on 11/07/2022 by Delmer Sheth MD at [facility] Right: [facility] [employer] Neph [employer] [id number] / / Screw Bone 3.5x13mm Evos Small Cortex Slf Tppng - [id number] Implanted:Qty: 2 on 11/07/2022 by Delmer Sheth MD at [facility] Right: [facility] Orth[employer] [id number] / / Screw Bone 3.5x15mm Evos Small Cortex Slf Tppng Implanted:Qty: 1 on 11/07/2022 by Delmer Sheth MD at [facility] Right: Arm [id number] / / Description:SCREW BONE 3.5X1 5MM EVOS SMALL CORTEX SLF TPPNG Screw Bone 3.5x13mm Evos Locks-T - [id number] Implanted:Qty: 1 on 11/07/2022 by Delmer Sheth MD at [facility] Right: Arm [employer] [id number] / / Screw Bone 3.5x12mm Evos Locks-T Implanted:Qty: 4 on 11/07/2022 by Delmer Sheth MD at [facility] Right: Arm [id number] / / Description:Screw Bone 3.5x1 2mm Evos Locks-T Plate Locking Compression 3.5mm 8h 93mm Implanted:Qty: 1 on 11/07/2022 by Delmer Sheth MD at [facility] Right: Arm [id number] / / Description:PLATE LOCKING CO MPRESSION 3.5MM 8H 93MM Plate Radial Shaft 12h 146mm Implanted:Qty: 1 on 11/07/2022 by Delmer Sheth MD at [facility] Right: Arm [id number] / / Description:PLATE RADIAL SHA FT 12H 146MM Nail Intertan 17uam34ss 125 Deg - [id number] Implanted:Qty: 1 on 03/23/2024 by Gigi Arreaga MD at [facility] Left: Hip [employer] 08/09/2033 [id number] / / [id number] Kit Bone Screw 95/90mm Comp Lag - [id number] Implanted:Qty: 1 on 03/23/2024 by Gigi Arreaga MD at [facility] Left: Hip [employer] 11/03/2033 [id number] / / [id number] Screw Bone 5.0x27.5mm Trigen Donald Low Profile Titnm - [id number] Implanted:Qty: 1 on 03/23/2024 by Gigi Arreaga MD at [facility] Left: Hip [employer] 08/24/2033 [id number] / / [id number] Explanted Type Area Spine Surgeon Device Identifier Shelf Expiration Date Model / Serial / Lot K Wire Fix 150x1.6mm For Alysa-Loc - [id number] Explanted:Qty: 2 on 10/16/2022 at [facility] Left: Arm [employer] [id number] / / Explant Explanted:Qty: 1 on 11/07/2022 at [facility] Right: Arm Description:ULNA 1 PLATE 6 S CREWS, RADIUS 1 PLATE 6 SCREWS Procedures The patient is currently admitted. The information in this section might not be complete until the patient is discharged. Procedure Name Priority Date/Time Associated Diagnosis Comments XR C-ARM GREATER 1 HR Routine 03/23/2024 2:18 PM CASTING MACHINE SERVICE OPERATOR XR HIP 2 VIEWS WO PELVIS LEFT Routine 03/23/2024 2:16 PM CASTING MACHINE SERVICE OPERATOR ENDOTRACHEAL TUBE Routine 03/23/2024 1:3 2 PM CASTING MACHINE SERVICE OPERATOR ENDOTRACHEAL TUBE Routine 03/23/2024 1:3 2 PM CASTING MACHINE SERVICE OPERATOR GLUCOSE METER Timed 03/23/2024 11:27 AM CASTING MACHINE SERVICE OPERATOR ECHO TTE COMPLETE W CONTRAST STAT 03/23/2024 10:12 AM CASTING MACHINE SERVICE OPERATOR GLUCOSE METER Timed 03/23/2024 7:21 AM CASTING MACHINE SERVICE OPERATOR POTASSIUM Today 03/23/2024 6:36 AM CASTING MACHINE SERVICE OPERATOR SCAN-CARDIAC STRIP 03/23/2024 2: 19 AM CASTING MACHINE SERVICE OPERATOR SCAN-CARDIAC STRIP 03/22/2024 11 :47 PM CASTING MACHINE SERVICE OPERATOR GLUCOSE METER Timed 03/22/2024 10:52 PM CASTING MACHINE SERVICE OPERATOR TROPONIN T (HS) ONE TIME STAT 03/22/2024 10:18 PM CASTING MACHINE SERVICE OPERATOR BLOOD GAS,VENOUS STAT 03/22/2024 10:1 8 PM CASTING MACHINE SERVICE OPERATOR EKG 12 LEAD STAT 03/22/2024 9:40 PM CASTING MACHINE SERVICE OPERATOR TYPE & SCREEN STAT 03/22/2024 8:28 PM CASTING MACHINE SERVICE OPERATOR CT HEAD BRAIN WO STAT 03/22/2024 1:21 PM CASTING MACHINE SERVICE OPERATOR HEMOGLOBIN A1C JENNIFER 03/22/2024 1:01 PM CASTING MACHINE SERVICE OPERATOR TROPONIN T (HS) ACUTE W/2HR REFLEX JENNIFER 03/22/2024 1:01 PM CASTING MACHINE SERVICE OPERATOR MAGNESIUM JENNIFER 03/22/2024 1:01 PM CASTING MACHINE SERVICE OPERATOR BASIC METABOLIC PANEL STAT 03/22/2024 1:01 PM CASTING MACHINE SERVICE OPERATOR CBC W PLT NO DIFF STAT 03/22/2024 1:0 1 PM CASTING MACHINE SERVICE OPERATOR XR HIP 2 OR 3 VIEWS W PELVIS LEFT STAT 03/22/2024 12:28 PM CASTING MACHINE SERVICE OPERATOR XR FEMUR 2 VIEWS LEFT STAT 03/22/2024 12:27 PM CASTING MACHINE SERVICE OPERATOR URINALYSIS MICROSCOPIC STAT 6:38 PM CASTING MACHINE SERVICE OPERATOR UA W/ SEDIMENT EXAM REFLEXED PER CRITERIA STAT 03/17/2024 6:38 PM CASTING MACHINE SERVICE OPERATOR XR PELVIS 1 VIEW AP AND HIP 2 VIEW BILATERAL STAT 03/17/2024 5:32 PM CASTING MACHINE SERVICE OPERATOR XR KNEE 3 VIEWS RIGHT STAT 03/17/2024 5:31 PM CASTING MACHINE SERVICE OPERATOR XR KNEE 2 VIEWS LEFT STAT 03/17/2024 5:30 PM CASTING MACHINE SERVICE OPERATOR CT HEAD BRAIN WO STAT 03/17/2024 4:55 PM CASTING MACHINE SERVICE OPERATOR CBC WITH AUTO DIFFERENTIAL STAT 03/17/2024 4:34 PM CASTING MACHINE SERVICE OPERATOR BASIC METABOLIC PANEL STAT 03/17/2024 4:34 PM CASTING MACHINE SERVICE OPERATOR CBC WITH AUTO DIFFERENTIAL STAT 03/17/2024 4:34 PM CASTING MACHINE SERVICE OPERATOR SCAN-LABORATORY REPORT 4 12:00 AM CDT SCAN-LABORATORY REPORT 4 12:00 AM CDT XR DXA BONE DENSITY 2 SITES AXIAL Routine 01/14/2024 2:28 PM CDT Menopause XR MAMMO RAFAT BILAT SCREEN Routine 01/14/2024 1:38 PM CDT Encounter for screening mammogram for malignant neoplasm of breast CBC WITH AUTO DIFFERENTIAL Routine 01/09/2024 1:50 PM CDT Iron deficiency anemia due to chronic blood loss CBC WITH AUTO DIFFERENTIAL Routine 01/09/2024 1:50 PM CDT Iron deficiency anemia due to chronic blood loss VITAMIN D 25 (DEFICIENCY) Routine 01/09/2024 1:50 PM CDT Vitamin D deficiency LIPID PANEL W REFLEX MEASURED LDL Routine 01/09/2024 1:50 PM CDT Hyperlipidemia, unspecified hyperlipidemia type BASIC METABOLIC PANEL Routine 01/09/2024 1:50 PM CDT Hypertension, unspecified type FERRITIN Routine 01/09/2024 1:50 PM CDT Iron deficiency anemia due to chronic blood loss SCAN-CT INTERPRETATION 12:00 AM CDT SCAN-RADIOLOGY REPORT 12/22/2023 12:00 AM CDT SDNA-FIT EXTERNAL (COLOGUARD) Routine 06/05/2022 7:37 AM CASTING MACHINE SERVICE OPERATOR Screening for colon cancer ANTI HCV Routine 05/30/2021 10:19 AM CASTING MACHINE SERVICE OPERATOR Need for hepatitis C screening test from Last 3 Months or Most Recently Relevant to Health Maintenance Results * XR C-ARM GREATER 1 HR (03/23/2024 2:18 PM CASTING MACHINE SERVICE OPERATOR) Narrative Silent, Sched - 03/23/2024 2:20 PM CASTING MACHINE SERVICE OPERATOR The result for this exam is either scanned and attached to this order or are included in the ordering provider's NOTES from the patient's Office Visit or Surgical procedure from this date. Gigi Arreaga MD FLUOROS COPY * XR HIP 2 VIEWS LEFT (03/23/2024 2:16 PM CASTING MACHINE SERVICE OPERATOR) Anatomical Region Laterality Modality HIPS, HIPL, Pelvis Digital Radio graphy 03/23/2024 2:16 PM CASTING MACHINE SERVICE OPERATOR Impressions 03/23/2024 2:24 PM CASTING MACHINE SERVICE OPERATOR Intraprocedural spot films during the patient's procedure. Interval placement of intramedullary nail and interlocking femoral neck screw across the intertrochanteric fracture. Please reference the surgical report for further details. Narrative 03/23/2024 2:24 PM CASTING MACHINE SERVICE OPERATOR For Patients: As a result of the Cures Act, medical imaging exams and procedure reports are released immediately into your electronic medical record. You may view this report before your referring provider. If you have questions, please contact your health care provider. EXAM: XR HIP 2 VIEWS LEFT LOCATION: [facility] DATE: 03/23/2024 INDICATION: Trauma Pain COMPARISON: 03/22/2024 Procedure Note Guille Dave MD - 03/23/2024 For Patients: As a result of the s Act, medical imagingexams and procedure reports are released immediately into your electronicmedical record. You may view this report before your referring provider.If you have questions, please contact your health care provider. EXAM: XR HIP 2 VIEWS LEFT LOCATION: [facility] DATE: 03/23/2024 INDICATION: Trauma Pain COMPARISON: 03/22/2024 IMPRESSION: Intraprocedural spot films during the patient's procedure. Intervalplacement of intramedullary nail and interlocking femoral neck screwacross the intertrochanteric fracture. Please reference the surgicalreport for further details. Gigi Arreaga MD GENERAL IMAGING * HCHG TUBE PR1, HCHG STYLET PR1 (03/23/2024 1:32 PM CASTING MACHINE SERVICE OPERATOR) Narrative Jonah Klein CRNA - 03/23/2024 1:32 PM CASTING MACHINE SERVICE OPERATOR Jonah Klein CRNA 03/23/2024 1:32 PM Procedure: ETT Patient location during procedure: OR ETT Properties Mask Ventilation: easy Final Technique: direct laryngoscopy Type: straight Location: oral Cuffed: yes Tube Size: 7.0 mm Stylet: yes Laryngoscope Blade: Parrish Blade Size: 2 Cormack-Lehane Grade View: 1 Insertion Attempts: 1 Placement Verification: auscultation, end tidal CO2 and symmetrical chest wall movement Assessment: pharynx clear, atraumatic and dentition unchanged Secured at: 22 Measured From: gums Difficulty: 0 (not difficult) Yaya Zambrano MD ANESTHESIA PX NOTE ORDERABLES * GLUCOSE METER (03/23/2024 11:27 AM CASTING MACHINE SERVICE OPERATOR) Only the most recent of3 resultswithin the time period is included. GLUCOSE METER 78 65 - 100 mg/dL 03/23/2024 11:30 AM CASTING MACHINE SERVICE OPERATOR [facility] Blood BLOOD SPECIMEN / Unknown 03/23/2024 11:27 AM CASTING MACHINE SERVICE OPERATOR 03/23/2024 11:30 AM CASTING MACHINE SERVICE OPERATOR Core Trauma Service CHEMISTRY [facility] INTERNAL ZIP [phone] [place] [address] * ECHO TTE COMPLETE W CONTRAST (03/23/2024 10:12 AM CASTING MACHINE SERVICE OPERATOR) EJECTION FRACTION 65-70% PROSOLV Anatomical Region Laterality Modality Ultrasound 03/23/2024 7:59 AM CASTING MACHINE SERVICE OPERATOR Narrative 03/23/2024 11:52 AM CASTING MACHINE SERVICE OPERATOR [facility] Heart and Vascular [facility] [address], [address], [place] [address] Main: [email or web address] Transthoracic Echo Report SARAH ARMNETA Nargis ID: [id number] Age: 68 : 1955 Ordering Provider: MELISSA MARIN Exam Date: 03/23/2024 07:59 Gender: F Electric Motor Analyst: SHEN Height: 63 in BSA: 2.03 m BP: 119 / 72 Weight: 225 lbs BMI: 39.9 kg/m HR: 101 Site: [facility] Location: Inpatient (Portable) Rhythm: Irregular Procedure Components: 2D imaging with contrast, Color Doppler, Spectral Doppler Indications: Cardiac Murmur Technical Quality: Contrast: [facility] 2001#: [id number] Final Conclusion Previous Study: 07/30/22 Visually Estimated EF: 65-70% Technically difficult study - contrast was used to enhance endocardial definition due to suboptimal image quality. Normal LV size and systolic function. Right ventricle not well visualized. Aortic valve not well visualized. Mild aortic stenosis. Mean aortic transvalvular gradient is 15 mmHg. No significant aortic regurgitation. Mitral annular calcification. Mean mitral transvalvular gradient is 6 mmHg at 103 bpm.. No significant mitral regurgitation. Dilated IVC. FINDINGS Left Ventricle Normal left ventricular size. Moderate left ventricular hypertrophy. No obvious regional wall motion/thickening abnormalities. Diastolic Function Indeterminate diastolic filling pattern. Right Ventricle Right ventricle not well visualized. Left Atrium Moderate left atrial enlargement. Right Atrium Right atrium not well visualized. Aortic Valve Aortic valve not well visualized. Mild aortic stenosis. Mean aortic transvalvular gradient is 15 mmHg. No significant aortic regurgitation. Mitral Valve Mitral annular calcification. Mean mitral transvalvular gradient is 6 mmHg at 103 bpm.. No significant mitral regurgitation. Tricuspid Valve Tricuspid valve not well visualized. No significant tricuspid stenosis. No significant tricuspid regurgitation. Pulmonic Valve Pulmonic valve not well visualized, without significant stenosis or regurgiation noted on doppler imaging. Pericardium No significant pericardial effusion. Aorta Measured aortic root diameter is normal in size. Inferior Vena Cava Dilated IVC. MEASUREMENTS (Male / Female) Normal Values 2D MEASUREMENTS AND LV FUNCTION LA Volume Index MOD BP 45.7 ml/m 16 - 34 ml/m Sinuses of Valsalva Diameter(d) 3.25 cm Ascending Aorta Diameter(s) 3.3 cm IVC Diameter Expiration 2.3 cm Ascending Aorta Index 1.62 cm/m DIASTOLOGY Mitral E Point Velocity 0.962 m/sec 0.70 - 1.02 m/sec Mitral A Point Velocity 1.73 m/sec 0.06 - 1.06 m/sec Mitral E to A Ratio 0.556 1.1 - 2.1 MV Deceleration Time 177 msec 167 - 231 msec LV E' Lateral Velocity 0.0859 m/sec Mitral E to LV E' Lateral Ratio 11.2 LV E' Septal Velocity 0.0859 m/sec Mitral E to LV E' Septal Ratio 11.2 AORTIC VALVE AV Peak Velocity 2.58 m/sec < 2.0 m/sec AV Peak Gradient 26.6 mmHg AV Mean Gradient 15 mmHg AV Velocity Time Integral 40.9 cm MITRAL VALVE MV Peak Gradient 12.5 mmHg MV Mean Gradient 6 mmHg MV Velocity Time Integral 29 cm MV Pressure Half Time 52 msec MV Area PHT 4.23 cm Aortic Root ZScore: -0.70 Elijah Chávez MD (Electronically Signed) [facility] Accredited Site Final Date: 23 March 2024 11:52 ICD-10 Codes: 785.2 Procedure Note Elijah Chávez MBBS - 03/23/2024 [facility] Heart and Vascular [facility] [address] [place] [address], [address], [place] [address] Main: [email or web address] Transthor[employer] Echo Report SARAH ARMENTA Excellian ID: [id number] Age: 68 : 1955 Ordering Provider:MELISSA MARIN Exam Date: 03/23/2024 07:59 Gender: F Electric Motor Analyst: SHEN Height: 63 in BSA: 2.03 m BP: 119 / 72 Weight: 225 lbs BMI: 39.9 kg/m HR: 101 Site: [facility] Location: Inpatient (Portable) Rhythm: Irregular Procedure Components: 2D imaging with contrast, Color Doppler, SpectralDoppler Indications: Cardiac Murmur Technical Quality: Contrast: [facility] 2001#: [id number] Final Conclusion Previous Study: 07/30/22 Visually Estimated EF: 65-70% Technically difficult study - contrast was used to enhance endocardialdefinition due to suboptimal image quality. Normal LV size and systolic function. Right ventricle not well visualized. Aortic valve not well visualized. Mild aortic stenosis. Mean aortictransvalvular gradient is 15 mmHg. No significant aortic regurgitation. Mitral annular calcification. Mean mitral transvalvular gradient is 6mmHg at 103 bpm.. No significant mitral regurgitation. Dilated IVC. FINDINGS Left Ventricle Normal left ventricular size. Moderate left ventricularhypertrophy. No obvious regional wall motion/thickening abnormalities. Diastolic Function Indeterminate diastolic filling pattern. Right Ventricle Right ventricle not well visualized. Left Atrium Moderate left atrial enlargement. Right Atrium Right atrium not well visualized. Aortic Valve Aortic valve not well visualized. Mild aortic stenosis. Meanaortic transvalvular gradient is 15 mmHg. No significant aortic regurgitation. Mitral Valve Mitral annular calcification. Mean mitral transvalvulargradient is 6 mmHg at 103 bpm.. No significant mitral regurgitation. Tricuspid Valve Tricuspid valve not well visualized. No significanttricuspid stenosis. No significant tricuspid regurgitation. Pulmonic Valve Pulmonic valve not well visualized, without significantstenosis or regurgiation noted on doppler imaging. Pericardium No significant pericardial effusion. Aorta Measured aortic root diameter is normal in size. Inferior Vena Cava Dilated IVC. MEASUREMENTS (Male / Female) Normal Values 2D MEASUREMENTS AND LV FUNCTION LA Volume Index MOD BP 45.7 ml/m 16 - 34 ml/m Sinuses of Valsalva Diameter(d) 3.25 cm Ascending Aorta Diameter(s) 3.3 cm IVC Diameter Expiration 2.3 cm Ascending Aorta Index 1.62 cm/m DIASTOLOGY Mitral E Point Velocity 0.962 m/sec 0.70 - 1.02m/sec Mitral A Point Velocity 1.73 m/sec 0.06 - 1.06m/sec Mitral E to A Ratio 0.556 1.1 - 2.1 MV Deceleration Time 177 msec 167 - 231 msec LV E' Lateral Velocity 0.0859 m/sec Mitral E to LV E' Lateral Ratio 11.2 LV E' Septal Velocity 0.0859 m/sec Mitral E to LV E' Septal Ratio 11.2 AORTIC VALVE AV Peak Velocity 2.58 m/sec < 2.0 m/sec AV Peak Gradient 26.6 mmHg AV Mean Gradient 15 mmHg AV Velocity Time Integral 40.9 cm MITRAL VALVE MV Peak Gradient 12.5 mmHg MV Mean Gradient 6 mmHg MV Velocity Time Integral 29 cm MV Pressure Half Time 52 msec MV Area PHT 4.23 cm Aortic Root ZScore: -0.70 Elijah Praful Chávez MD (Electronically Signed) [facility] Accredited Site Final Date: 23 March 2024 11:52 ICD-10 Codes: 785.2 Melissa Marin MD ECHO ORD * (ABNORMAL) POTASSIUM (03/23/2024 6:36 AM CASTING MACHINE SERVICE OPERATOR) POTASSIUM 3.4(L) 3.5 - 5.1 mmol/L 03/23/2024 9:45 AM CASTING MACHINE SERVICE OPERATOR [facility] Blood BLOOD SPECIMEN / Unknown Venipuncture / Unknown 03/23/2024 6:36 AM CASTING MACHINE SERVICE OPERATOR 03/23/2024 7:03 AM CASTING MACHINE SERVICE OPERATOR Melissa Marin MD CHEMISTRY [facility]ORY INTERNAL ZIP [phone] [place] [address] * SCAN-CARDIAC STRIP (03/23/2024 2:19 AM CASTING MACHINE SERVICE OPERATOR) Scanner OTHER * SCAN-CARDIAC STRIP (03/22/2024 11:47 PM CASTING MACHINE SERVICE OPERATOR) Scanner OTHER * (ABNORMAL) TROPONIN T (HS) ONE TIME (03/22/2024 10:18 PM CASTING MACHINE SERVICE OPERATOR) TROPONIN T HS 20(H) 6-10 ng/L ng/L 03/22/2024 10:43 PM CASTING MACHINE SERVICE OPERATOR [facility] Blood BLOOD SPECIMEN / Unknown Venipuncture / Unknown 03/22/2024 10:18 PM CASTING MACHINE SERVICE OPERATOR 03/22/2024 10:22 PM CASTING MACHINE SERVICE OPERATOR [facility] LABORATORY - 03/22/2024 10:43 PM CASTING MACHINE SERVICE OPERATOR hs-cTnT (Elecsys Troponin T Gen 5) concentration (s) above the sex-specific 99th percentile (16 ng/L or greater for males or 11 ng/L or greater for females) are indicative of myocardial injury. If initial hs-cTnT <=100 ng/L at presentation, a 0h/2h ABSOLUTE (ng/L) delta change (rising or falling) of >=10 ng/L suggests a significant change, whereas a 0h/2h delta change <=3 ng/L suggests no significant change. If initial hs-cTnT >100 ng/L at presentation, a 0h/2h/ RELATIVE (percent, %) delta change of 20% is suggested to distinguish patients with acute vs. chronic myocardial injury. There are multiple etiologies that can cause hs-cTnT increases above the 99th percentile (myocardial injury) other than acute myocardial infarction. Clinical context and careful clinical evaluation are critical for diagnosis and risk-stratification. The diagnosis of acute myocardial infarction requires a rising and/or falling pattern in hs-cTnT concentrations with at least one value above the sex-specific 99th percentile PLUS at least one of the following clinical criteria: ischemic symptoms, new or presumed new significant ST-T wave changes or new LBBB, development of pathological Q waves, imaging evidence of new loss of viable myocardium or new regional wall motion abnormality, or identification of intracoronary atherothrombosis or an acute angiographic culprit on coronary angiography. In appropriate low-risk patients with a non-ischemic electrocardiogram without active chest pain with a symptom onset >3-hours without recurrence, a single initial hs-cTnT<6 ng/L identifies patient with a very low risk in emergency department patient population. Melissa Marin MD CHEMISTRY [facility] [place]NAL ZIP [phone] [place] [address] * (ABNORMAL) BLOOD GAS,VENOUS (03/22/2024 10:18 PM CASTING MACHINE SERVICE OPERATOR) Pathologist [facility] PH, VENOUS 7.40 7.32 - 7.43 03/22/2024 10:27 PM [facility] PCO2, VENOUS 55(H) 41 - 51 mmHg 03/22/2024 10:27 PM [facility] PO2, VENOUS 27(L) 35 - 40 mmHg 03/22/2024 10:27 PM [facility] HCO3,VENOUS 34(H) 22 - 29 mmol/L 03/22/2024 10:27 PM [facility] BASE EXCESS, VENOUS, POCT 7.5(H) -2.0 - 3.0 03/22/2024 10:27 PM [facility] O2 SATURATION, VENOUS 37(L) 70 - 75 % 03/22/2024 10:27 PM [facility] PATIENT TEMPERATURE 37.0 Degrees C 03/22/2024 10:27 PM [facility] Blood VENOUS BLOOD SPECIMEN / Unknown Venipuncture / Unknown 03/22/2024 10:18 PM CASTING MACHINE SERVICE OPERATOR 03/22/2024 10:22 PM CASTING MACHINE SERVICE OPERATOR Melissa Marin MD CHEMISTRY Performing Organization Address City/[facility]/ZIP Co de Phone Number [facility] INTERNAL ZIP [phone] [place] [address] * EKG 12 LEAD (03/22/2024 9:40 PM CASTING MACHINE SERVICE OPERATOR) Pathologist [facility] Interpretation Normal sinus rhythm Minimal voltage criteria for LVH, may be normal variant Borderline ECG When compared with ECG of 28-Jul-2022 12:43, Nonspecific T wave abnormality now evident in Anterior leads BEYOND NOW Ventricular Rate 77 BPM BEYOND NOW Atrial Rate 77 BPM BEYOND NOW P-R Interval 160 ms BEYOND NOW QRS Duration 92 ms BEYOND NOW QT 372 ms BEYOND NOW QTc 420 ms BEYOND NOW P [place] 48 degrees BEYOND NOW R [place] 23 degrees BEYOND NOW T [place] 7 degrees BEYOND NOW 03/22/2024 9:40 PM CASTING MACHINE SERVICE OPERATOR 03/23/2024 9:03 AM CASTING MACHINE SERVICE OPERATOR Melissa Marin MD EKG ORD BEYOND NOW [place], [place] * Type and Screen (03/22/2024 8:28 PM CASTING MACHINE SERVICE OPERATOR) ABORH O Rh Positive 03/22/2024 9:08 PM CASTING MACHINE SERVICE OPERATOR [facility] BLOOD BANK ANTIBODY SCREEN Negative Negative 03/22/2024 9:08 PM CASTING MACHINE SERVICE OPERATOR [facility] BLOOD BANK SPECIMEN EXPIRATION DATE/TIME 03/25/24 23:59 03/22/2024 9:08 PM CASTING MACHINE SERVICE OPERATOR [facility] BLOOD BANK Blood BLOOD SPECIMEN / Unknown Non-Lab Venipuncture / Unknown 03/22/2024 8:28 PM CASTING MACHINE SERVICE OPERATOR 03/22/2024 8:32 PM CASTING MACHINE SERVICE OPERATOR Keaton Gross MD BLOOD BANK Performing Organization Address City/[facility]/ZIP Co de Phone Number [facility] BLOOD BANK [address] [place] [address] * CT HEAD BRAIN WO (03/22/2024 1:21 PM CASTING MACHINE SERVICE OPERATOR) Only the most recent of2 resultswithin the time period is included. Anatomical Region Laterality Modality HEAD, BRAIN Computed Tomogra phy 03/22/2024 1:30 PM CASTING MACHINE SERVICE OPERATOR Impressions 03/22/2024 1:30 PM CASTING MACHINE SERVICE OPERATOR 1. Stable, no radiographic evidence of acute intracranial abnormalities. Please note that all CT scans at this facility use dose modulation, iterative reconstruction, and/or weight-based dosing when appropriate to reduce radiation dose to as low as reasonably achievable. Dictated by Randolph Odonnell MD @ 03/22/2024 1:30:42 PM (Electronically Signed) Narrative 03/22/2024 1:30 PM CASTING MACHINE SERVICE OPERATOR For Patients: As a result of the Cures Act, medical imaging exams and procedure reports are released immediately into your electronic medical record. You may view this report before your referring provider. If you have questions, please contact your health care provider. INDICATION: Headache. Trauma. TECHNIQUE: Non-contrast CT of the head is submitted. Compared to prior study from March 17, 2024 FINDINGS: The ventricles, sulci and gyri are of normal size, shape and contour. Midline structures are centrally located. No convincing evidence of intra- or extra-axial fluid collections. Procedure Note Tirso Odonnell DO - 03/22/2024 For Patients: As a result of the Cures Act, medical imagingexams and procedure reports are released immediately into your electronicmedical record. You may view this report before your referring provider.If you have questions, please contact your health care provider. INDICATION: Headache. Trauma. TECHNIQUE: Non-contrast CT of the head is submitted. Compared to prior study fromMarch 17, 2024 FINDINGS: The ventricles, sulci and gyri are of normal size, shape and contour.Midline structures are centrally located. No convincing evidence ofintra- or extra-axial fluid collections. IMPRESSION: 1. Stable, no radiographic evidence of acute intracranial abnormalities. Please note that all CT scans at this facility use dose modulation,iterative reconstruction, and/or weight-based dosing when appropriate toreduce radiation dose to as low as reasonably achievable. Dictated by Randolph Odonnell MD @ 03/22/2024 1:30:42 PM (Electronically Signed) Guille Salgado MD CT * (ABNORMAL) TROPONIN T (HS) ACUTE W/2HR REFLEX (03/22/2024 1:01 PM CASTING MACHINE SERVICE OPERATOR) TROPONIN T HS 23(H) 6-10 ng/L ng/L 03/22/2024 10:11 PM CASTING MACHINE SERVICE OPERATOR [facility] Blood BLOOD SPECIMEN / Unknown Butterfly / Unknown 03/22/2024 1:01 PM CASTING MACHINE SERVICE OPERATOR 03/22/2024 1:04 PM CASTING MACHINE SERVICE OPERATOR Narrative [facility] - 03/22/2024 10:11 PM CASTING MACHINE SERVICE OPERATOR hs-cTnT (Elecsys Troponin T Gen 5) concentration (s) above the sex-specific 99th percentile (16 ng/L or greater for males or 11 ng/L or greater for females) are indicative of myocardial injury. If initial hs-cTnT <=100 ng/L at presentation, a 0h/2h ABSOLUTE (ng/L) delta change (rising or falling) of >=10 ng/L suggests a significant change, whereas a 0h/2h delta change <=3 ng/L suggests no significant change. If initial hs-cTnT >100 ng/L at presentation, a 0h/2h/ RELATIVE (percent, %) delta change of 20% is suggested to distinguish patients with acute vs. chronic myocardial injury. There are multiple etiologies that can cause hs-cTnT increases above the 99th percentile (myocardial injury) other than acute myocardial infarction. Clinical context and careful clinical evaluation are critical for diagnosis and risk-stratification. The diagnosis of acute myocardial infarction requires a rising and/or falling pattern in hs-cTnT concentrations with at least one value above the sex-specific 99th percentile PLUS at least one of the following clinical criteria: ischemic symptoms, new or presumed new significant ST-T wave changes or new LBBB, development of pathological Q waves, imaging evidence of new loss of viable myocardium or new regional wall motion abnormality, or identification of intracoronary atherothrombosis or an acute angiographic culprit on coronary angiography. In appropriate low-risk patients with a non-ischemic electrocardiogram without active chest pain with a symptom onset >3-hours without recurrence, a single initial hs-cTnT<6 ng/L identifies patient with a very low risk in emergency department patient population. Melissa Marin MD CHEMISTRY [facility] [address] [place] [address] * HEMOGLOBIN A1C (03/22/2024 1:01 PM CASTING MACHINE SERVICE OPERATOR) [facility] HEMOGLOBIN A1C SCREENING 6.0 <=6.4 % 03/23/2024 7:28 AM CASTING MACHINE SERVICE OPERATOR [facility] Blood BLOOD SPECIMEN / Unknown Butterfly / Unknown 03/22/2024 1:01 PM CASTING MACHINE SERVICE OPERATOR 03/22/2024 1:04 PM [facility] LABORATORY - 03/23/2024 7:28 AM CASTING MACHINE SERVICE OPERATOR (<5.7%) Normal (5.7% to 6.4%) Indicates prediabetes (>=6.5%) Confirms diabetes Falsely low levels may be seen with: Recent Transfusion, Recent Significant Blood Loss, Hemolytic Diseases, or Falsely elevated levels may be seen with: Untreated Anemias, Splenectomy Melissa Marin MD CHEMISTRY [facility] [address] [place] [address] * (ABNORMAL) CBC W PLT NO DIFF (03/22/2024 1:01 PM CASTING MACHINE SERVICE OPERATOR) WHITE BLOOD COUNT 7.5 4.5 - 11.0 thou/cu mm 03/22/2024 1:08 PM [facility] RED BLOOD COUNT 3.57(L) 4.00 - 5.20 mil/cu mm 03/22/2024 1:08 PM [facility] HEMOGLOBIN 10.4(L) 12.0 - 16.0 g/dL 03/22/2024 1:08 PM [facility] HEMATOCRIT 32.6(L) 33.0 - 51.0 % 03/22/2024 1:08 PM [facility] MCV 91 80 - 100 fL 03/22/2024 1:08 PM [facility] MCH 29.1 26.0 - 34.0 pg 03/22/2024 1:08 PM [facility] LABORATORY MCHC 31.9(L) 32.0 - 36.0 g/dL 03/22/2024 1:08 PM [facility] RDW 13.7 11.5 - 15.5 % 03/22/2024 1:08 PM [facility] PLATELET COUNT 150 140 - 440 thou/cu mm 03/22/2024 1:08 PM [facility] MPV 10.9 6.5 - 11.0 fL 03/22/2024 1:08 PM [facility] Blood BLOOD SPECIMEN / Unknown Butterfly / Unknown 03/22/2024 1:01 PM CASTING MACHINE SERVICE OPERATOR 03/22/2024 1:04 PM CASTING MACHINE SERVICE OPERATOR Guille Salgado MD HEMATOLOGY Performing Organization Address [facility]/ZIP Co de Phone Number [facility] [address] [place] [address] * MAGNESIUM (03/22/2024 1:01 PM CASTING MACHINE SERVICE OPERATOR) Pathologist [facility] MAGNESIUM 1.9 1.6 - 2.4 mg/dL 03/22/2024 10:12 PM [facility] Blood BLOOD SPECIMEN / Unknown Butterfly / Unknown 03/22/2024 1:01 PM CASTING MACHINE SERVICE OPERATOR 03/22/2024 1:04 PM CASTING MACHINE SERVICE OPERATOR Melissa Marin MD CHEMISTRY Performing Organization Address [facility]/ZIP Co de Phone Number [facility] [address] [place] [address] * (ABNORMAL) BASIC METABOLIC PANEL (03/22/2024 1:01 PM CASTING MACHINE SERVICE OPERATOR) Only the most recent of3 resultswithin the time period is included. SODIUM 144 136 - 145 mmol/L 03/22/2024 1:28 PM [facility] POTASSIUM 3.4(L) 3.5 - 5.1 mmol/L 03/22/2024 1:28 PM [facility] CHLORIDE 103 98 - 107 mmol/L 03/22/2024 1:28 PM [facility] CO2,TOTAL 32(H) 22 - 29 mmol/L 03/22/2024 1:28 PM [facility] ANION GAP 9 5 - 18 03/22/2024 1:28 PM [facility] GLUCOSE 122(H) 70 - 99 mg/dL 03/22/2024 1:28 PM [facility] CALCIUM 8.9 8.8 - 10.4 mg/dL 03/22/2024 1:28 PM [facility] Comment: Reference ranges for this test were updated on 03/03/2024 to reflect our healthy population more accurately. Reference range changes are not retroactively applied to results, but previous results using the same methodology can be interpreted in the context of the new reference range. BUN 11 8 - 23 mg/dL 03/22/2024 1:28 PM CASTING MACHINE SERVICE OPERATOR [facility] CREATININE 0.64 0.50 - 0.90 mg/dL 03/22/2024 1:28 PM [facility] BUN/CREAT RATIO 17 10 - 20 4 1:28 PM CASTING MACHINE SERVICE OPERATOR [facility] eGFR >90 >90 mL/min/1. 73m2 03/22/2024 1:28 PM [facility] Comment:As of 2021, eG FR is calculated by the CKD-EPI creatinine equation without race adjustment. eGFR can be influenced by muscle mass, exercise, and diet. The reported eGFR is an estimation only and is only applicable if the renal function is stable. Blood BLOOD SPECIMEN / Unknown Butterfly / Unknown 03/22/2024 1:01 PM CASTING MACHINE SERVICE OPERATOR 03/22/2024 1:04 PM CASTING MACHINE SERVICE OPERATOR Guille Salgado MD CHEMISTRY [facility] [address] [place] [address] * XR HIP 2 OR 3 VIEWS W PELVIS LEFT (03/22/2024 12:28 PM CASTING MACHINE SERVICE OPERATOR) Anatomical Region Laterality Modality HIPS, HIPL, Pelvis Digital Radio graphy 03/22/2024 1:35 PM CASTING MACHINE SERVICE OPERATOR Impressions 03/22/2024 1:35 PM CASTING MACHINE SERVICE OPERATOR Left intertrochanteric fracture as above. Dictated by Darrion Greco MD @ 03/22/2024 1:35:10 PM (Electronically Signed) Narrative 03/22/2024 1:35 PM CASTING MACHINE SERVICE OPERATOR For Patients: As a result of the Century Cures Act, medical imaging exams and procedure reports are released immediately into your electronic medical record. You may view this report before your referring provider. If you have questions, please contact your health care provider. INDICATION: Posttraumatic pain. COMPARISON: None available. TECHNIQUE: Views: 3 FINDINGS: Comminuted displaced intertrochanteric left proximal femoral fracture in 3 parts. The displaced lesser trochanter is comminuted. Procedure Note Darrion Greco MD - 03/22/2024 For Patients: As a result of the Cures Act, medical imagingexams and procedure reports are released immediately into your electronicmedical record. You may view this report before your referring provider.If you have questions, please contact your health care provider. INDICATION: Posttraumatic pain. COMPARISON: None available. TECHNIQUE: Views: 3 FINDINGS: Comminuted displaced intertrochanteric left proximal femoral fracture in 3parts. The displaced lesser trochanter is comminuted. IMPRESSION: Left intertrochanteric fracture as above. Dictated by Darrion Greco MD @ 03/22/2024 1:35:10 PM (Electronically Signed) Guille Salgado MD GENERAL IMAGING * XR FEMUR 2 VIEWS LEFT (03/22/2024 12:27 PM CASTING MACHINE SERVICE OPERATOR) Anatomical Region Laterality Modality FEMURS, FEMUR L Digital Radiogra phy 03/22/2024 1:37 PM CASTING MACHINE SERVICE OPERATOR Impressions 03/22/2024 1:37 PM CASTING MACHINE SERVICE OPERATOR Left intertrochanteric fracture as above. Dictated by Darrion Greco MD @ 03/22/2024 1:37:01 PM (Electronically Signed) Narrative 03/22/2024 1:37 PM CASTING MACHINE SERVICE OPERATOR For Patients: As a result of the s Act, medical imaging exams and procedure reports are released immediately into your electronic medical record. You may view this report before your referring provider. If you have questions, please contact your health care provider. INDICATION: Posttraumatic pain. COMPARISON: 03/17/2024 TECHNIQUE: Two views (4 images) FINDINGS: Comminuted displaced intertrochanteric left femoral fracture in 3 parts. The lesser trochanter is comminuted. No fracture of the distal left femur is identified. Incidental note is made of advanced patellofemoral and medial tibiofemoral osteoarthrosis of the left knee with mild degenerative change of the lateral tibiofemoral joint compartment. Procedure Note Darrion Greco MD - 03/22/2024 For Patients: As a result of the Cures Act, medical imagingexams and procedure reports are released immediately into your electronicmedical record. You may view this report before your referring provider.If you have questions, please contact your health care provider. INDICATION: Posttraumatic pain. COMPARISON: 03/17/2024 TECHNIQUE: Two views (4 images) FINDINGS: Comminuted displaced intertrochanteric left femoral fracture in 3 parts.The lesser trochanter is comminuted. No fracture of the distal left femuris identified. Incidental note is made of advanced patellofemoral and medial tibiofemoralosteoarthrosis of the left knee with mild degenerative change of thelateral tibiofemoral joint compartment. IMPRESSION: Left intertrochanteric fracture as above. Dictated by Darrion Greco MD @ 03/22/2024 1:37:01 PM (Electronically Signed) Guille Salgado MD GENERAL IMAGING * URINALYSIS MICROSCOPIC (03/17/2024 6:38 PM CASTING MACHINE SERVICE OPERATOR) RBC 0-2 0-2, None Seen /HPF 03/17/2024 7:20 PM CASTING MACHINE SERVICE OPERATOR [facility] WBC 3-5 0-2, 3-5, None Seen /HPF 03/17/2024 7:20 PM CASTING MACHINE SERVICE OPERATOR [facility] BACTERIA Few None Seen, Rare, Few Bacteria/H PF 03/17/2024 7:20 PM CASTING MACHINE SERVICE OPERATOR [facility] EPITHELIAL CELLS Few None Seen, Few Epi/HPF 03/17/2024 7:20 PM CASTING MACHINE SERVICE OPERATOR [facility] Mucus Present 03/17/2024 7:20 PM CASTING MACHINE SERVICE OPERATOR [facility] Urine URINE SPECIMEN / Unknown Non-Blood / Unknown 03/17/2024 6:38 PM CASTING MACHINE SERVICE OPERATOR 03/17/2024 6:46 PM CASTING MACHINE SERVICE OPERATOR Madelin Riley MD URINE [facility] [address] [place] [address] * (ABNORMAL) UA W/ SEDIMENT EXAM REFLEXED PER CRITERIA (03/17/2024 6:38 PM CASTING MACHINE SERVICE OPERATOR) COLOR Yellow Yellow Color 03/17/2024 6:56 PM [facility] CLARITY Clear Clear Clarity 03/17/2024 6:56 PM [facility] SPECIFIC GRAVITY,URINE 1.025 1.010, 1.015, 1.020, 1.025 03/17/2024 6:56 PM [facility] PH,URINE 6.0 6.0, 7.0, 8.0, 5.5, 6.5, 7.5, 8.5 03/17/2024 6:56 PM [facility] UROBILINOGEN, QUALITATIVE Normal Normal EU/dl 03/17/2024 6:56 PM [facility] PROTEIN, URINE Negative Negative mg/dL 03/17/2024 6:56 PM [facility] GLUCOSE, URINE Negative Negative mg/dL 03/17/2024 6:56 PM [facility] KETONES,URINE Negative Negative mg/dL 03/17/2024 6:56 PM [facility] BILIRUBIN,URI NE Negative Negative 03/17/2024 6:56 PM [facility] OCCULT BLOOD,URINE Negative Negative 03/17/2024 6:56 PM [facility] NITRITE Negative Negative 03/17/2024 6:56 PM [facility] LEUKOCYTE ESTERASE Small(A) Negative 03/17/2024 6:56 PM [facility] Urine URINE SPECIMEN / Unknown Non-Blood / Unknown 03/17/2024 6:38 PM CASTING MACHINE SERVICE OPERATOR 03/17/2024 6:46 PM CASTING MACHINE SERVICE OPERATOR Madelin Riley MD URINE [facility] [address] [facility] [place] [address] * XR PELVIS 1 VIEW AP AND HIP 2 VIEW BILATERAL (03/17/2024 5:32 PM CASTING MACHINE SERVICE OPERATOR) Anatomical Region Laterality Modality HIPS, HIPL, HIPR, Pelvis Digital Radiography 03/17/2024 6:11 PM CASTING MACHINE SERVICE OPERATOR Narrative 03/17/2024 6:11 PM CASTING MACHINE SERVICE OPERATOR For Patients: As a result of the Cures Act, medical imaging exams and procedure reports are released immediately into your electronic medical record. You may view this report before your referring provider. If you have questions, please contact your health care provider. Indication: Pain Technique: Pelvis and bilateral hips 5 views Comparison: 02/10/2019 Findings: Bones: Alignment is normal. No fractures or bone lesions. Joint spaces: Joint spaces are preserved. Mild bilateral hip degenerative change Soft tissues: Unremarkable. Impression: No acute findings. Mild bilateral hip degenerative change. Dictated by Madison Myers MD @ 03/17/2024 6:11:07 PM (Electronically Signed) Procedure Note Madison Myers MD - 03/17/2024 For Patients: As a result of the s , medical imagingexams and procedure reports are released immediately into your electronicmedical record. You may view this report before your referring provider.If you have questions, please contact your health care provider. Indication: Pain Technique: Pelvis and bilateral hips 5 views Comparison: 02/10/2019 Findings: Bones: Alignment is normal. No fractures or bone lesions. Joint spaces: Joint spaces are preserved. Mild bilateral hip degenerativechange Soft tissues: Unremarkable. Impression: No acute findings. Mild bilateral hip degenerative change. Dictated by Madison Myers MD @ 03/17/2024 6:11:07 PM (Electronically Signed) Madelin Riley MD GENERAL IMAGI NG * XR KNEE 3 VIEWS RIGHT (03/17/2024 5:31 PM CASTING MACHINE SERVICE OPERATOR) Anatomical Region Laterality Modality KNEES, KNEE R Digital Radiogra phy 03/17/2024 6:09 PM CASTING MACHINE SERVICE OPERATOR Narrative 03/17/2024 6:09 PM CASTING MACHINE SERVICE OPERATOR For Patients: As a result of the s Act, medical imaging exams and procedure reports are released immediately into your electronic medical record. You may view this report before your referring provider. If you have questions, please contact your health care provider. Indication: Pain. Technique: Right knee 3 views Comparison: None Findings: Bones: Alignment is unchanged with apparent lateral subluxation of the patella. No evident fractures or bone lesions. Joint spaces: No evident joint effusion. Redemonstrated tricompartmental osteoarthritis which is severe in the lateral and patellofemoral compartments. Soft tissues: Unremarkable. Impression: No sign of acute injury. Dictated by Francesco Clement MD @ 03/17/2024 6:09:49 PM (Electronically Signed) Procedure Note Francesco Clement MD - 03/17/2024 For Patients: As a result of the Cures Act, medical imagingexams and procedure reports are released immediately into your electronicmedical record. You may view this report before your referring provider.If you have questions, please contact your health care provider. Indication: Pain. Technique: Right knee 3 views Comparison: None Findings: Bones: Alignment is unchanged with apparent lateral subluxation of thepatella. No evident fractures or bone lesions. Joint spaces: No evident joint effusion. Redemonstrated tricompartmentalosteoarthritis which is severe in the lateral and patellofemoralcompartments. Soft tissues: Unremarkable. Impression: No sign of acute injury. Dictated by Francesco Clement MD @ 03/17/2024 6:09:49 PM (Electronically Signed) Madelin Riley MD GENERAL IMAGI NG * XR KNEE 2 VIEWS LEFT (03/17/2024 5:30 PM CASTING MACHINE SERVICE OPERATOR) Anatomical Region Laterality Modality KNEE L Digital Radiogra phy 03/17/2024 6:04 PM CASTING MACHINE SERVICE OPERATOR Narrative 03/17/2024 6:04 PM CASTING MACHINE SERVICE OPERATOR For Patients: As a result of the Cures Act, medical imaging exams and procedure reports are released immediately into your electronic medical record. You may view this report before your referring provider. If you have questions, please contact your health care provider. Indication: Pain. Technique: Left knee 2 views Comparison: Knee radiographs dated 06/16/2021 Findings: Bones: Alignment is similar to prior with apparent lateral subluxation of the patella. No evident fractures or bone lesions. Joint spaces: No evident joint effusion. Overall moderate to severe tricompartmental osteoarthritis. Soft tissues: Unremarkable. Impression: No sign of acute injury. Dictated by Francesco Clement MD @ 03/17/2024 6:04:13 PM (Electronically Signed) Procedure Note Francesco Clement MD - 03/17/2024 For Patients: As a result of the Cures Act, medical imagingexams and procedure reports are released immediately into your electronicmedical record. You may view this report before your referring provider.If you have questions, please contact your health care provider. Indication: Pain. Technique: Left knee 2 views Comparison: Knee radiographs dated 06/16/2021 Findings: Bones: Alignment is similar to prior with apparent lateral subluxation ofthe patella. No evident fractures or bone lesions. Joint spaces: No evident joint effusion. Overall moderate to severetricompartmental osteoarthritis. Soft tissues: Unremarkable. Impression: No sign of acute injury. Dictated by Francesco Clement MD @ 03/17/2024 6:04:13 PM (Electronically Signed) Madelin Riley MD GENERAL IMAGI NG * (ABNORMAL) CBC WITH AUTO DIFFERENTIAL (03/17/2024 4:34 PM CASTING MACHINE SERVICE OPERATOR) Only the most recent of2 resultswithin the time period is included. WHITE BLOOD COUNT 4.9 4.5 - 11.0 thou/cu mm 03/17/2024 4:40 PM [facility] RED BLOOD COUNT 3.71(L) 4.00 - 5.20 mil/cu mm 03/17/2024 4:40 PM [facility] HEMOGLOBIN 10.6(L) 12.0 - 16.0 g/dL 03/17/2024 4:40 PM [facility] HEMATOCRIT 33.7 33.0 - 51.0 % 03/17/2024 4:40 PM [facility] MCV 91 80 - 100 fL 03/17/2024 4:40 PM [facility] MCH 28.6 26.0 - 34.0 pg 03/17/2024 4:40 PM [facility] MCHC 31.5(L) 32.0 - 36.0 g/dL 03/17/2024 4:40 PM [facility] RDW 13.5 11.5 - 15.5 % 03/17/2024 4:40 PM [facility] PLATELET COUNT 168 140 - 440 thou/cu mm 03/17/2024 4:40 PM [facility] MPV 10.8 6.5 - 11.0 fL 03/17/2024 4:40 PM [facility] % NEUT 65.6 % 03/17/2024 4:40 PM [facility] % LYMPH 25.6 % 03/17/2024 4:40 PM [facility] % MONO 8.6 % 03/17/2024 4:40 PM [facility] % EOS 0.0 % 03/17/2024 4:40 PM [facility] % BASO 0.2 % 03/17/2024 4:40 PM [facility] ABSOLUTE NEUTROPHILS 3.2 1.7 - 7.0 thou/cu mm 03/17/2024 4:40 PM [facility] ABSOLUTE LYMPHOCYTES 1.3 0.9 - 2.9 thou/cu mm 03/17/2024 4:40 PM [facility] ABSOLUTE MONOCYTES 0.4 <0.9 thou/cu mm 03/17/2024 4:40 PM [facility] ABSOLUTE EOSINOPHILS 0.0 <0.5 thou/cu mm 03/17/2024 4:40 PM [facility] ABSOLUTE BASOPHILS 0.0 <0.3 thou/cu mm 03/17/2024 4:40 PM [facility] Blood BLOOD SPECIMEN / Unknown Venipuncture / Unknown 03/17/2024 4:34 PM CASTING MACHINE SERVICE OPERATOR 03/17/2024 4:37 PM CASTING MACHINE SERVICE OPERATOR Madelin Riley MD HEMATOLOGY [facility] [address] [place] [address] * SCAN-LABORATORY REPORT (02/17/2024 12:00 AM CDT) Only the most recent of2 resultswithin the time period is included. Scanner OTHER * (ABNORMAL) XR DXA BONE DENSITY 2 SITES AXIAL (01/14/2024 2:28 PM CDT) Anatomical Region Laterality Modality Spine, HIPS, HIPL, HIPR Other Impressions 01/21/2024 1:16 PM CDT Osteopenia. RECOMMENDATIONS: The National Osteoporosis Foundation recommends pharmacologic treatment for patients with T-scores of -2.5 or less, patients with prior history of fragility fractures, or patients with 10-year probability of greater than 3% at hips or greater than 20% of suffering major osteoporotic fractures. Recommend continued optimization of calcium and vitamin D intake through dietary means and/or supplementation and regular exercise. Repeat scan recommended in 3-5 years. Arabella Armijo PA-C [facility] 01/21/2024 Narrative 01/21/2024 1:16 PM CDT For Patients: Results are automatically released to your [email or web address] account once available, in compliance with federal regulations. This means that you may see your results before your provider has had a chance to review them. Please allow 2-3 business days for your provider to comment on the results. XR DXA Bone Mineral Density (BMD) EXAM LOCATION: [address] [address] PATIENT NAME: Sarah Armenta DATE OF : 1955 EXAM DATE: 01/14/2024 REQUESTING PROVIDER: Yecenia Thrasher MD GENDER AT : female HEIGHT: 5' 2.75 (01/09/2024) WEIGHT: 227 lb (01/09/2024) MENOPAUSAL STATUS: Postmenopausal RACE/ETHNICITY: White RISK FACTORS: Height Loss (2 inches or more), History of Fragility Fracture (at a major site), Smoking (prior), and White Race CURRENT MEDICATION FOR BONE LOSS: NONE INDICATION: Menopause COMPARISON DATE(S): None DXA scans are compared to prior studies for a patient only when the two (or more) studies were performed on the same scanner. It is not possible to compare data generated on one scanner to data from another because there are not standards in DXA equipment. This applies even if the two scanners are made by the same data administrator. PROCEDURE: Dual-energy x-ray absorptiometry performed with routine technique. Reporting is completed in the form of a T-score. The T-score represents the standard deviation from peak bone mass based on young healthy adult. A Z-score is used for diagnosis in premenopausal women, and for men under the age of 50. FINDINGS: RESULT LUMBAR SPINE L2-L4(L1) BMD: 1.196 g/cm2 T-Score: - 0.2 Z-Score: + 0.3 Change from prior: None RESULTS FEMUR Left femoral neck BMD: 0.810 g/cm2 T-Score: - 1.6 Z-Score: - 0.8 Change from prior: None Right femoral neck BMD: 0.846 g/cm2 T-Score: - 1.4 Z-Score: - 0.5 Change from prior: None Left hip BMD: 0.879 g/cm2 T-Score: - 1.0 Z-Score: - 0.5 Change from prior: None Right hip BMD: 0.872 g/cm2 T-Score: - 1.1 Z-Score: - 0.5 Change from prior: None WHO criteria: Normal: T-score at or above -1 SD Osteopenia: T-score between -1.1 and -2.4 SD Osteoporosis: T-score at or below -2.5 SD FRAX RISK CALCULATION (USED FOR OSTEOPENIA ONLY): 10-year probability of major osteoporotic fracture: 8.9%. 10-year probability of hip fracture: 1.2%. Yecenia Thrasher MD DEXA * XR MAMMO RAFAT BILAT SCREEN (01/14/2024 1:38 PM CDT) Anatomical Region Laterality Modality BREASTS, Breast Left, Breast Right Bilateral Mammography Impressions 01/14/2024 2:48 PM CDT There is no radiographic evidence for malignancy. Recommend annual mammograms. MAMMOGRAM ASSESSMENT: ACR 1 Negative PATIENTS: You will also receive a letter with your examination results in an easy to read format. If you have questions about your results, please contact your referring provider. Narrative 01/14/2024 2:48 PM CDT For Patients: As a result of the Century Cures Act, medical imaging exams and procedure reports are released immediately into your electronic medical record. You may view this report before your referring provider. If you have questions, please contact your health care provider. XR MAMMO RAFAT BILAT SCREEN [[id number]] CLINICAL HISTORY: This is an asymptomatic 68 y.o. patient. INDICATION FOR EXAM: Mammogram Screening. TECHNIQUE: CC & MLO views were obtained. This study was evaluated with the assistance of Computer-Aided Detection. Breast Tomosynthesis was used in interpretation. COMPARISON FILM: Yes 08/20/22 [email or web address] 04/07/21 [facility] FINDINGS: There are scattered areas of fibroglandular density. There are no dominant masses, suspicious micro calcifications or areas of architectural distortion. Yecenia Thrasher MD MAMMO * LIPID PANEL W REFLEX MEASURED LDL (01/09/2024 1:50 PM CDT) CHOLESTEROL,TOTAL 123 100 - 199 mg/dL 01/10/2024 4:18 AM CDT [facility] Comment: Cholesterol, Total Reference Ranges Desirable <200 mg/dL Borderline 200-239 mg/dL High >=240 mg/dL TRIGLYCERIDES 88 <150 mg/dL 01/10/2024 4:18 AM CDT [facility] HDL CHOLESTEROL 68 >40 mg/dL 4:18 AM CDT [facility] NON-HDL CHOLESTEROL 55 <145 mg/dl 01/10/2024 4:18 AM CDT [facility] CHOL/HDL RATIO 1.81 <4.50 01/10/2024 4:18 AM CDT [facility] LDL CHOLESTEROL 37 <=130 mg/dL 01/10/2024 4:18 AM CDT [facility] VLDL CHOLESTEROL 18 <=30 mg/dL 01/10/2024 4:18 AM CDT [facility] PROVIDER ORDERED STATUS RANDOM 01/10/2024 4:18 AM CDT [facility] Blood BLOOD SPECIMEN / Unknown Venipuncture / Unknown 01/09/2024 1:50 PM CDT 01/09/2024 1:50 PM CDT Yecenia Thrasher MD CHEMISTRY Performing Organization Address City/[facility] Co de Phone Number [facility] [address] [place] [address], * VITAMIN D 25 (DEFICIENCY) (01/09/2024 1:50 PM CDT) VITAMIN D TOTAL 53.1 20.0 - 80.0 ng/mL 01/10/2024 4:18 AM CDT [facility] Blood BLOOD SPECIMEN / Unknown Venipuncture / Unknown 01/09/2024 1:50 PM CDT 01/09/2024 1:50 PM CDT Narrative [facility] - 01/10/2024 4:18 AM CDT Vitamin D Status Deficiency: <20 ng/mL Insufficiency: 20-29 ng/mL Sufficiency: 30-80 ng/mL Possible Toxicity: >80 ng/mL Based on [place] [employer] recommendations Biotin supplements may cause clinically significant interference for this test assay. If interference is suspected, it is strongly recommended that biotin is discontinued for at least one week prior to retesting. Yecenia Thrasher MD SEND OUTS Performing Organization Address City/[facility] Co de Phone Number [facility] [address] [place] [address], * FERRITIN (01/09/2024 1:50 PM CDT) FERRITIN 30.7 15.0 - 150.0 ng/mL 01/10/2024 4:18 AM CDT [facility] Blood BLOOD SPECIMEN / Unknown Venipuncture / Unknown 01/09/2024 1:50 PM CDT 01/09/2024 1:50 PM CDT Yecenia Thrasher MD CHEMISTRY [facility] [address] [place] [address], * SCAN-RADIOLOGY REPORT (12/22/2023 12:00 AM CDT) Anatomical Region Laterality Modality Other Scanner OTHER * SCAN-CT INTERPRETATION (12/22/2023 12:00 AM CDT) Anatomical Region Laterality Modality Other Scanner OTHER * SDNA-FIT EXTERNAL (COLOGUARD) (06/05/2022 7:37 AM CASTING MACHINE SERVICE OPERATOR) NONINV COLON CA DNA+OCC BLD SCRN STL-IMP Negative Negative 06/12/2022 11:42 PM CASTING MACHINE SERVICE OPERATOR [facility] (CLIA #:[id number]) Comment: NEGATIVE TEST RESULT. A negative Cologuard result indicates a low likelihood that a colorectal cancer (CRC) or advanced adenoma (adenomatous polyps with more advanced pre-malignant features) is present. The chance that a person with a negative Cologuard test has a colorectal cancer is less than 1 in 1500 (negative predictive value >99.9%) or has an advanced adenoma is less than 5.3% (negative predictive value 94.7%). These data are based on a prospective cross-sectional study of 10,000 individuals at average risk for colorectal cancer who were screened with both Cologuard and colonoscopy. (Clyde Byrd et al, N Engl J Med 2014;370(14):9614-4089) The normal value (reference range) for this assay is negative. COLOGUARD RE-SCREENING RECOMMENDATION: Periodic colorectal cancer screening is an important part of preventive healthcare for asymptomatic individuals at average risk for colorectal cancer. Following a negative Cologuard result, the [place] [employer] and U.S. Multi-Society Task Force screening guidelines recommend a Cologuard re-screening interval of 3 years. References: [place] [employer] Guideline for Colorectal Cancer Screening: https://www.cancer.org/cancer/ldwje-vdaiws-wompfq/zhpmxxtgo-rfurhyxea-wtixkzr/ac s-rec ommendations.html.; Ayaan KOEHLER, Radha WARREN, Jacob ALFONSO, Colorectal Cancer Screening: Recommendations for Physicians and Patients from the U.S. Multi-Society Task Force on Colorectal Cancer Screening , Am J Gastroenterology 2017; 112:3151-0515. TEST DESCRIPTION: Composite algorithmic analysis of stool DNA-biomarkers with hemoglobin immunoassay. Quantitative values of individual biomarkers are not [...] screened with both Cologuard and colonoscopy. (Clyde Miller. et al, N Engl J Med 2014;370(14):9309-1442.) Cologuard may produce a false negative or false positive result (no colorectal cancer or precancerous polyp present at colonoscopy follow up). A negative Cologuard test result does not guarantee the absence of CRC or advanced adenoma (pre-cancer). The current Cologuard screening interval is every 3 years. ([place] [employer] and U.S. Multi-Society Task Force). Cologuard performance data in a 10,000 patient pivotal study using colonoscopy as the reference method can be accessed at the following location: www.[employer]/results. Additional description of the Cologuard test process, warnings and precautions can be found at www.Best[employer] Keyboardrd.Coupon Wallet. Stool specimen (specimen) (Rectum) 06/05/2022 7:37 AM CASTING MACHINE SERVICE OPERATOR 06/06/2022 12:39 PM CASTING MACHINE SERVICE OPERATOR Yecenia Thrasher MD URINE [facility] (CLIA #:[id number]) [place] [address], * ANTI HCV (05/30/2021 10:19 AM CASTING MACHINE SERVICE OPERATOR) HEPATITIS C ANTIBODY Non-React armida Non-React armida 05/30/2021 6:36 PM CASTING MACHINE SERVICE OPERATOR [facility] Comment:Antibodies to HCV no t detected; does not exclude the possibility of exposure to HCV. Blood BLOOD SPECIMEN / Unknown Venipuncture / Unknown 05/30/2021 10:19 AM CASTING MACHINE SERVICE OPERATOR 05/30/2021 10:19 AM CASTING MACHINE SERVICE OPERATOR Yecenia Thrasher MD SEND OUTS [employer] [facility] [address] [place] [address], [place] from Last 3 Months or Most Recently Relevant to Health Maintenance Advance Directives Documents on File Type Date Recorded Patient Vp Analysis Expl anation POLST 10/23/2022 Healthcare Directive 05/24/2021 022 * Full Code (Latest Code Status on File) Date Activated Date Inactivated Comments 03/22/2024 7:55 PM Question Answer Comments Code Status Discussion: Other * Full Code Date Activated Date Inactivated Comments 11/06/2022 8:58 [...] Code Status Discussion: Reviewed Preferences Care Teams Gauger Delivery Relationship Specialty Start Date End Date Yecenia Thrasher MD [address] [place] [address] PCP - General Family Practice 04/07/21
== END 2024-03-22 09:24 | disposition home or self-care (01) ==
PROVIDERS: PCP Family Medicine; Visit Provider Family Medicine
DX: S89.92XA Unspecified injury of left lower leg, initial encounter (principal); W18.30XA Fall on same level, unspecified, initial encounter; Y92.009 Unspecified place in unspecified non-institutional (private) residence as the place of occurrence of the external cause
CPT/HCPCS: A0425; A0429

== ENCOUNTER 2024-07-02 17:57 | Outpatient (CLI) | payer MEDICARE, MEDICAID, SELFPAY | END 2024-07-02 17:58 | disposition home or self-care (01) | LOC: AMB 07-13 14:05 | PROVIDERS: PCP Family Medicine; Visit Provider Emergency Medicine Emergency Medical Services | DX: M79.605 Pain in left leg (principal) | CPT/HCPCS: A0425; A0427 ==

== ENCOUNTER 2024-07-02 18:09 | Emergency (ER) | payer MEDICARE, MEDICAID, SELFPAY ==
--- OUTSIDE RECORDS SUMMARY | 2024-07-02 18:11 | XMS_ITS | Clinical Summary ---
Author Organization [facility] Address [address] [place] [address] Care Team Providers Care Gasket Inspector Name Role Phone Elsewhere, Pcp Primary Care Provider Unavailabl e Source Comments Patient records contain information from all sites at [facility]. For routine questions regarding patient records, call [phone] during business hours, M-F 8:00 AM - 5:00 PM Central Time. 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 Gender Identity Not on file Sexual Orientation [...] Dilated Eye Exam 1955 FIT 1955 Hepatitis B Screening 1955 Hepatitis C Screening 1955 Office Visit for Blood Pressure Check / Re-check 1955 Urine Albumin 1955 Zoster Vaccines (1 of 2) 2005 Hemoglobin A1C 09/12/2023 03/14/2023, 04/30, 02/22/2022, Additional history exists COVID-19 Vaccine ( season) 2023 03/14/2023, 02/22/2022, 02/16/2021, Additional history exists Influenza Vaccine (#1) 2024 , 02/22/2022, 04/07/2021, Additional history exists Depression Screening (Annual PHQ-2) 04/29/2024 Fall Risk Screen (Annual) 04/29/2024 Creatinine Level (Kidney Function Test) 01/08/2025 01/09/2024, 03/14/2023, 02/15/2023, Additional history exists Potassium Level 01/08/2025 01/09/2024, 02/27, 02/15/2023, Additional history exists Sodium Level 01/08/2025 01/09/2024, 02/27, 02/15/2023, Additional history exists Mammogram 01/13/2025 01/14/2024, 12/28, 08/20/2022, Additional history exists Cologuard 06/05/2025 06/05/2022 Lipid (Cholesterol) Screening 01/08/2029 01/09/2024, 09/18/2023, 05/25/2022, Additional history exists DTaP,Tdap,and Td Vaccines (2 - Td or Tdap) 10/10/2032 10/10/2022 Colonoscopy 01/25/2033 01/25/2023, 12/29, 05/05/2021, Additional history exists Colorectal Cancer Screening 01/25/2033 Cervical/Vaginal Cancer Screening Discontinued 01/10/2021 Pneumococcal vaccine (50+ years) Completed 05/25/2022, 11/04/2020, 01/01/2015 Glucose Test [...] Metabolic Panel (01/30/2023 7:10 AM CDT) Pathologist [facility] Potassium, S 4.4 3.6 - 5.2 mmol/L [...] 7:10 AM CDT 01/30/2023 8:12 AM CDT us Beny Leggett M.D. LAB BLOOD ADD-ON Final Result [facility] [address] [place] [address], [place] DTL [facility] [address] [place] [address] from Last 3 Months or Most Recently Relevant to Health Maintenance Insurance [place] Advance Directives For more information, please contact: [phone] * Full Code (Latest Code Status on [...] Due to: Patient not available Care Teams Gasket Inspector Relationship Specialty Start Date End Date Elsewhere, Pcp PCP - General Internal Medicine 01/24/23
--- OUTSIDE RECORDS SUMMARY | 2024-07-02 18:11 | XMS_ITS | Clinical Summary ---
Author Organization [facility] Address Formerly [facility] [place] [address] Care Team Providers Care Machine Heel Builder Name Role Phone Yecenia Thrasher MD Primary Care Provide r [facility] Unavailable [phone] Allergies No known active allergies Medications lactobacillus rhamnosus, GG, (CULTURELLE) 10 billion cell capsuleIndications :Chronic diarrhea Take 1 Capsule by mouth once daily. 90 Capsule 3 06/06/19 24 Active ammonium lactate 12% (LACHYDRIN) 12 % creamIndications:C allus of foot Apply topically to affected area(s) two times daily. Apply to both feet twice daily. 385 g 5 10/05/19 24 Active albuterol HFA (PRO-AIR; VENTOLIN; PROVENTIL) 90 mcg/actuation inhalerIndications :Chronic obstructive pulmonary disease, unspecified COPD type (HC) Inhale 2 Puffs by mouth 4 times daily if needed for Shortness of Breath 1st choice. 1 Each 5 01/22/20 24 Active ibuprofen (ADVIL; MOTRIN) 600 mg tabletIndications: Bilateral hip pain,Pain in both knees, unspecified chronicity Take 1 Tablet (600 mg) by mouth every 6 hours if needed for Pain. Maximum of 3200 mg in 24 hours. 03/17/20 24 Active sennosides 17.2 mg tabIndications:Con stipation due to opioid therapy Take 8.6 mg by mouth 2 times daily if needed for Constipation. 03/24/20 24 Active Milk of Magnesia 400 mg/5 mL suspensionIndicati ons:Preventative health care Take 15 mL by mouth once daily if needed for Constipation. 04/02/20 24 Active psyllium husk 2.6 gram/4.1 gram powdIndications:Pr eventative health care Mix 15 mL in liquid then take by mouth once daily. Mix 1 tablespoon in 8 oz of water and drink 04/02/20 24 Active sennosides-docusat e (Senna with Docusate Sodium) (8.6-50 mg) tabletIndications: Preventative health care Take 2 Tablets by mouth 2 times daily if needed for Constipation. 04/02/20 24 Active zinc oxide topicalIndications :Preventative health care Apply topically to affected area(s) after diaper change. 04/02/20 24 Active cloZAPine (CLOZARIL) 25 mg tabletIndications: Paranoid schizophrenia (HC) Take 3 Tablets (75 mg) by mouth at bedtime. 84 Tablet 12 04/09/20 24 Active acetaminophen (TYLENOL EXTRA STRGTH) 500 mg tabletIndications: Closed fracture of left hip, initial encounter (HC) Take 2 Tablets (1,000 mg) by mouth every 8 hours. Max acetaminophen dose: 4000mg in 24 hrs. 180 Tablet 3 06/04/19 25 Active pantoprazole (PROTONIX) 40 mg delayed-release tabletIndications: Chronic GERD Take 1 Tablet (40 mg) by mouth once daily. 90 Tablet 1 06/03/19 25 Active oxybutynin XL (DITROPAN XL) 10 mg CR tabletIndications: Urinary urgency Take 1 Tablet (10 mg) by mouth once daily. 90 Tablet 1 06/03/19 25 Active metoprolol succinate (TOPROL XL) 25 mg Sustained-Release tabletIndications: Hypertension, unspecified type Take 1 Tablet (25 mg) by mouth once daily. 90 Tablet 1 06/03/19 25 Active furosemide (LASIX) 20 mg tabletIndications: Bilateral lower extremity edema Take 1 Tablet (20 mg) by mouth two times daily. 180 Tablet 1 06/03/19 25 Active ferrous gluconate 324 mg (37 mg iron) tabletIndications: Iron deficiency anemia due to chronic blood loss Take 1 Tablet by mouth once daily with a meal. 90 Tablet 1 06/03/19 25 Active cholecalciferol (VITAMIN D3) 5,000 unit capsuleIndications :Controlled type 2 diabetes mellitus without complication, without long-term current use of insulin (HC) Take 1 Capsule (5,000 units) by mouth once daily. 90 Capsule 1 06/03/19 25 Active atorvastatin (LIPITOR) 20 mg tabletIndications: Hyperlipidemia, unspecified hyperlipidemia type Take 1 Tablet (20 mg) by mouth at bedtime. 90 Tablet 1 06/03/19 25 Active ARIPiprazole (Abilify) 10 mg tabletIndications: Paranoid schizophrenia (HC) Take 1 Tablet (10 mg) by mouth at bedtime. 28 Tablet 10 06/03/19 25 Active ARIPiprazole (Abilify Maintena) 400 mg extended release injectionIndicatio ns:Paranoid schizophrenia (HC) Inject 2 mL (400 mg) intramuscular every 3 weeks. 2 mL 06/03/19 25 Active citalopram (CELEXA) 20 mg tabletIndications: Paranoid schizophrenia (HC) Take 1 Tablet (20 mg) by mouth once daily in the morning. 28 Tablet 10 06/03/19 25 Active traZODone (DESYREL) 50 mg tabletIndications: Paranoid schizophrenia (HC) Take 1 Tablet (50 mg) by mouth at bedtime. 28 Tablet 10 06/03/19 25 Active lisinopriL (PRINIVIL; ZESTRIL) 2.5 mg tabletIndications: Hypertension, unspecified type Take 1 Tablet (2.5 mg) by mouth once daily. 90 Tablet 3 06/17/19 25 Active hydrocortisone (ANUSOL-HC) 2.5 % rectal creamIndications:B leeding hemorrhoids Apply topically to affected area(s) two times daily. 28 g 2 06/18/19 25 Active turmeric 400 mg capIndications:Acu te pain of right shoulder Take by mouth once daily. 90 Capsule 3 06/18/19 25 Active durable medical equipment (DME)Indications:P rimary osteoarthritis of right knee [employer]die [employer]ace, XXL right knee 1 Each 06/24/19 25 Active aspirin chewable 81 mg chewable tabletIndications: Aftercare following surgery of the musculoskeletal system Chew 1 Tablet (81 mg) by mouth two times daily with meals. 60 Tablet 1 06/24/19 25 025 Active Breo Ellipta 100-25 mcg/dose inhalation powderIndications: Chronic obstructive pulmonary disease, unspecified COPD type (HC) Inhale 1 Puff by mouth once daily. RINSE MOUTH WITH WATER AFTER USE TO REDUCE AFTERTASTE & INCIDENCE OF CANDIDIASIS, DO NOT SWALLOW 60 Each 5 07/02/19 25 Active lisinopriL (PRINIVIL; ZESTRIL) 2.5 mg tabletIndications: Hypertension, unspecified type Take 1 Tablet (2.5 mg) by mouth once daily. 90 Tablet 3 01/09/20 24 025 Disconti nued(Reo rder (E-cance l not sent)) metoprolol succinate (TOPROL XL) 25 mg Sustained-Release tabletIndications: Hypertension, unspecified type Take 1 Tablet (25 mg) by mouth once daily. 90 Tablet 3 01/09/20 24 025 Disconti nued(*Av ailabili ty/Formu jaguar change/C ost of medicati on) atorvastatin (LIPITOR) 20 mg tabletIndications: Hyperlipidemia, unspecified hyperlipidemia type Take 1 Tablet (20 mg) by mouth at bedtime. 90 Tablet 3 01/09/20 24 025 Disconti nued(*Av ailabili ty/Formu jaguar change/C ost of medicati on) ferrous gluconate 324 mg (37 mg iron) tabletIndications: Iron deficiency anemia due to chronic blood loss Take 1 Tablet by mouth once daily with a meal. 90 Tablet 3 01/09/20 24 025 Disconti nued(*Av ailabili ty/Formu jaguar change/C ost of medicati on) pantoprazole (PROTONIX) 40 mg delayed-release tabletIndications: Chronic GERD Take 1 Tablet (40 mg) by mouth once daily. 90 Tablet 3 01/09/20 24 025 Disconti nued(*Av ailabili ty/Formu jaguar change/C ost of medicati on) oxybutynin XL (DITROPAN XL) 10 mg CR tabletIndications: Urinary urgency Take 1 Tablet (10 mg) by mouth once daily. 90 Tablet 3 01/09/20 24 025 Disconti nued(*Av ailabili ty/Formu jaguar change/C ost of medicati on) furosemide (LASIX) 20 mg tabletIndications: Bilateral lower extremity edema Take 1 Tablet (20 mg) by mouth two times daily. 180 Tablet 3 01/09/20 24 025 Disconti nued(*Av ailabili ty/Formu jaguar change/C ost of medicati on) cholecalciferol (VITAMIN D3) 5,000 unit capsuleIndications :Controlled type 2 diabetes mellitus without complication, without long-term current use of insulin (HC) Take 1 Capsule (5,000 units) by mouth once daily. 90 Capsule 3 01/09/20 24 025 Disconti nued(*Av ailabili ty/Formu jaguar change/C ost of medicati on) Breo Ellipta 100-25 mcg/dose inhalation powderIndications: Chronic obstructive pulmonary disease, unspecified COPD type (HC) INHALE 1 PUFF ONCE DAILY -RINSE MOUTH WITH WATER AFTER USE TO REDUCE AFTERTASTE & INCIDENCE OF CANDIDIASIS, DO NOT SWALLOW- 60 Each 01/16/20 24 025 Disconti nued(*Av ailabili ty/Formu jaguar change/C ost of medicati on) ARIPiprazole (Abilify) 10 mg tabletIndications: Paranoid schizophrenia (HC) Take 1 Tablet (10 mg) by mouth at bedtime. 28 Tablet 12 04/09/20 24 025 Disconti nued(*Av ailabili ty/Formu jaguar change/C ost of medicati on) citalopram (CELEXA) 20 mg tabletIndications: Paranoid schizophrenia (HC) Take 1 Tablet (20 mg) by mouth once daily in the morning. 28 Tablet 12 04/09/20 24 025 Disconti nued(*Av ailabili ty/Formu jaguar change/C ost of medicati on) traZODone (DESYREL) 50 mg tabletIndications: Paranoid schizophrenia (HC) Take 1 Tablet (50 mg) by mouth at bedtime. 28 Tablet 12 04/09/20 24 025 Disconti nued(*Av ailabili ty/Formu jgauar change/C ost of medicati on) ARIPiprazole (Abilify Maintena) 400 mg extended release injectionIndicatio ns:Paranoid schizophrenia (HC) Inject 2 mL (400 mg) intramuscular every 3 weeks. 2 mL 11 04/09/20 025 Disconti nued(*[place]/Melia montesinos change/C ost of medicati on) Breo Ellipta 100-25 mcg/dose inhalation powderIndications: Chronic obstructive pulmonary disease, unspecified COPD type (HC) Inhale 1 Puff by mouth once daily. RINSE MOUTH WITH WATER AFTER USE TO REDUCE AFTERTASTE & INCIDENCE OF CANDIDIASIS, DO NOT SWALLOW 60 Each 5 07/01/19 025 Disconti nued(Reo rder (E-cance l not sent)) Hospital, Clinic, or Other Facility Administered Medication Ordered Dose Route Frequency Start Date End Date Status dexAMETHasone 4 mg injection (DECADRON)Indications:Acute pain of right shoulder 4 mg IM ONE TIME 06/18/2024 06/18/2024 En ded Active Problems Problem Noted Date Diagnosed Date s/p left femur intramedullar y girma insertion DOS 03/23/24 by Yecenia Thrasher* 06/24/2024 S/p Cephalomedullary nailing left hip 03/23/24 Dr. 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 05/26/2018 Paranoid schizophrenia [...] Cellulitis of left lower extremity 07/28/2022 03/22/2024 Chronic obstructive pulmonar y disease, unspecified COPD type 03/13/2022 06/22/2024 COVID-19 virus infection 06/30/2021 DM2 (diabetes mellitus, type 2) 06/30/2021 11/06/2022 history of small bowel obstruction 05/19/2021 03/22/2024 Symptomatic anemia 05/19/2021 Controlled substance agreement signed 02/20/2021 04/09/2024 Overview (02/20/2021): 12/26/20 Minna Deleon MD/psychiatry Asthma 11/06/2022 Closed Monteggia's fracture of left arm 03/22/2024 Encounters Date Type Department Care Team Description 07/02/2024 9:15 AM PLAN COORDINATOR Home Care Visit [facility] [address] [place] [address] Halley Chavira COTA OT - HOME VISIT 06/30/2024 Refill [facility] [address] [place] [address] Yecenia Thrasher MD Refill Request (Breo Ellipta 100 mcg/dose powder for inhalation ) 06/29/2024 Refill [facility] [address] [place] [address] Yecenia Thrasher MD Refill Request (FLUTIC/VILAN INH 100-25) 06/24/2024 11:40 AM PLAN COORDINATOR Ancillary Procedure [facility] [address] [facility] [address] [place] [address] 06/24/2024 11:00 AM PLAN COORDINATOR Office Visit [facility] [address] [place] [address] Brody Chicas MD Surgical Followup (S/p Cephalomedullary nailing left hip 03/23/24 Dr. Gigi Arreaga) 06/24/2024 Telephone [facility] [address] [place] [address] Fernando Couch MD REMS 06/24/2024 Home Care Visit [facility] [address] [place] [address] Blanka Florentino, OT DUENAS SUPERVISION 06/24/2024 Travel 06/23/2024 3:45 PM PLAN COORDINATOR Home Care Visit [facility] [address] [place] [address] Blanka Florentino, OT OT - REASSESSMENT 06/23/2024 10:15 AM PLAN COORDINATOR Home Care Visit [facility] [address] [place] [address] Carolyn Ley, PT PT - HOME VISIT 06/22/2024 Travel 06/19/2024 9:45 AM PLAN COORDINATOR Home Care Visit [facility] [address] [place] [address] Carolyn Ley, PT PT - REASSESSMENT 06/18/2024 1:45 PM PLAN COORDINATOR Ancillary Procedure [facility] [address] [place] [address] 06/18/2024 12:35 PM PLAN COORDINATOR Office Visit [facility] [address] [place] [address] Yecenia Thrasher MD Follow Up (Leg edema, looking better); Musculoskeletal Problem (Mid arm to rt shoulder pain, doing exercises) 06/18/2024 Telephone [facility] [address] [place] [address] Yecenia Thrasher MD Refill Request 06/18/2024 Travel 06/16/2024 2:30 PM PLAN COORDINATOR Home Care Visit [facility] [address] [facility] [place] [address] Halley Chavira, DUENAS OT - HOME VISIT 06/16/2024 10:45 AM PLAN COORDINATOR Home Care Visit [facility] [address] [place] [address] Carolyn Ley, PT PT - HOME VISIT 06/15/2024 Refill [facility] [address] [place] [address] Yecenia Thrasher MD Refill Request (lisinopril) 06/11/2024 2:30 PM PLAN COORDINATOR Home Care Visit [facility] [address] [place] [address] Halley Chavira, DUENAS OT - HOME VISIT 06/11/2024 9:45 AM PLAN COORDINATOR Home Care Visit [facility] [address] [place] [address] Carolyn Ley, PT PT - HOME VISIT 06/10/2024 Orders Only [facility] Scanner 1 scan: (1-Ord) [facility], MULTIPLE LAB RESULTS, 06/10/2024 06/09/2024 2:45 PM PLAN COORDINATOR Home Care Visit [facility] [address] [place] [address] Halley Chavira, DUENAS OT - HOME VISIT 06/08/2024 12:45 PM PLAN COORDINATOR Home Care Visit [facility] [address] [place] [address] Carolyn Ley, PT PT - HOME VISIT 06/05/2024 9:45 AM PLAN COORDINATOR Home Care Visit [facility] [address] [place] [address] Carolyn Ley, PT PT - HOME VISIT 06/05/2024 Home Care Visit [facility] [address] [place] [address] Blanka Florentino, OT OT - EDEMA/LYMPHEDEMA HOME VISIT 06/05/2024 Refill [facility] [address] [place] [address] Yecenia Thrasher MD Refill Request; ACETAMIN 06/03/2024 Refill [facility] [address] [place] [address] Fernando Couch MD Refill Request (Abilify, Celexa and trazodone) 06/02/2024 9:45 AM PLAN COORDINATOR Home Care Visit [facility] [address] [place] [address] Carolyn Ley, PT PT - HOME VISIT 06/02/2024 Refill [facility] [address] [place] [address] Yecenia Thrasher MD Refill Request (Acetaminophen) 06/02/2024 Refill [facility] [address] [place] [address] Yecenia Thrasher MD Refill Request (Trazodone, Pantoprazole, Oxybutynin Xl, Metoprolol Succinate, Furosemide, Ferrous Gluconate, Citalopram, Cholecalciferol, Atorvastatin, Aripiprazole) 05/28/2024 3:45 PM PLAN COORDINATOR Home Care Visit [facility] [address] [place] [address] Blanka Florentino, OT OT - INITIAL ASSESSMENT 05/28/2024 9:45 AM PLAN COORDINATOR Home Care Visit [facility] [address] [place] [address], [place] [address] Carolyn Ley, PT PT - HOME VISIT 05/26/2024 10:45 AM PLAN COORDINATOR Home Care Visit [facility] [address] [place] [phone] Carolyn Ley, PT PT - HOME VISIT 05/22/2024 12:30 PM PLAN COORDINATOR Home Care Visit [facility] [address] [place] [address] Carolyn Ley, PT PT - OASIS START OF CARE 05/22/2024 Telephone [facility] [address] [place] [address] Carolyn Ley, PT Home Care (Requesting ongoing homecare orders; also, medication discrepancies) 05/22/2024 Plan of Care Documentation [facility] [address] [place] [address] 05/21/2024 9:05 AM PLAN COORDINATOR Office Visit [facility] [address] [place] [address] Yecenia Thrasher MD [facility] F/U (Had hip surgery at [facility] 03/22/24 after ER visit/At [facility],since 05/04. Still needs PT/OT at [facility]. /Legs are swollen ) 05/21/2024 Telephone [facility] [address] [place] [address] Fernando Couch MD REMS 05/20/2024 Travel 05/06/2024 Telephone [facility] - [address] [place] [address] Pcp, No Appointment Request 05/06/2024 Telephone [facility] [address] [place] [address] Fernando Couch MD 05/05/2024 3:30 PM PLAN COORDINATOR Ancillary Procedure [facility] [address] [facility] [address] [place] [address] 05/05/2024 3:25 PM PLAN COORDINATOR Ancillary Procedure [facility] [address] [facility] [address] [place] [address] 05/05/2024 3:00 PM PLAN COORDINATOR [facility] [address] [facility] [address] [place] [address] Prudencio Pleitez, Hip Pain/problem (S/p left hip fracture) 05/04/2024 Travel 04/27/2024 Telephone [facility] [address] [place] [address] Fernando Couch MD Form (Lab schedule form) 04/20/2024 Telephone [facility] [address] [place] [address] Yecenia Thrasher MD Questions 04/17/2024 Telephone [facility] [address] [place] [phone] Gigi Arreaga MD Post-op (1ST POST OP ) 04/10/2024 Lab Requisition [facility] [phone] Abdirahman Vaughn MD 04/09/2024 9:00 AM PLAN COORDINATOR Telemedicine [facility] [address] [place] [address] Fernando Couch MD Telehealth; Medication Management (Things could be better, broke left hip ) 04/09/2024 Telephone [facility] [address] [place] [address] Fernando Couch MD Pharmacist Medication Management (cloZAPine (CLOZARIL) 25 mg tablet) 04/09/2024 Telephone [facility] [address] [place] [address] Fernando Couch MD fax 04/06/2024 Lab Requisition [facility] [phone] Abdirahman Vaughn MD 04/03/2024 Lab Requisition [facility] [phone] Gregoria Paz NP from Last 3 Months Immunizations Name Administration Dates Next Due COVID-19 VACCINE SPIKEVAX (M ODERNA 50MCG/0.5ML) 12YO+ PFS 03/14/2023 COVID-19 vaccine (Pfizer-Bio NTech 30mcg/0.3mL) 12YO+ BIVALENT PF, MDV 02/22/2022 COVID-19 vaccine (Pfizer-Bio NTech 30mcg/0.3mL) PF, MDV 07/29/2020,07/08/2020 Influenza RIV4 (Age 18+ Years) PRESERV FREE 06/27 Influenza, High-dose Inactivated 02/04/2024 Influenza, Inactivated AIIV4 (Age 65+ Years) Preserv Free 03/14/2023,02/22/2022,04/07/2021 Pneumococcal Conj 20-valent (Prevnar 20) 023 Pneumococcal Poly,23-Valent (Pneumovax) 11/05/19 21 RSV, Bivalent Vaccine Recons tituted (Abrysvo 120MCG/0.5mL) 02/04/2024 Tdap 10/10/2022 Family History Medical History Relation Name Comments Alcoholism Father Diabetes Father Endometriosis Half-Sister Alcoholism Mother Depression Mother Other Sister hysterectomy Cancer-breast No Family History Cancer-ovarian No Family History Relation Name Status Comments Father Half-Sister Alive Mother Sister Alive Social History Tobacco Use Types Packs/Day Years Used Date Smoking Tobacco: Former Cigarettes Q uit: 2004 Smokeless Tobacco: Never Tobacco Cessation:Counseling Given: Yes Alcohol Use Standard Drinks/Week Comments [...] is your housing situation today? 1 03/23/2024 Interpersonal Safety Answer Date Record ed Are you being hit, kicked, p ushed or yelled at (see row info)? No 03/22/2024 Interpersonal Safety Abuse 12 - 18 Not on file 03/22/2024 Interpersonal Safety Ambulatory Vulnerability No t on file 03/22/2024 Utilities Answer Date Recorded Do you have trouble paying f or utilities (for example, heat, electricity, water, phone)? 1 03/23/2024 Comments No Sex and Gender Information Value Date Recorded Sex Assigned at Not on file Legal Sex Female 10:52 AM PLAN COORDINATOR Gender Identity Not on file Sexual Orientation Not on file Obstetrics History Para Term AB IAB SAB Ectopic Multiple Livin g Live Births 3 1 1 2 1 1 Date Outcome GA Total Labor Labor/2nd/3rd Weight Sex Type Anes PTL Domenica A1 A5 Name Clin AB AB 1984 Term Vag Living Last Filed Vital Signs Vital Sign Reading Time Taken Comments Blood Pressure 130/68 07/02/2024 9:29 AM PLAN COORDINATOR Pulse 107 07/02/2024 10:05 AM PLAN COORDINATOR with activity Temperature 36.4 C (97.5 F) 07/02/2024 9:29 AM PLAN COORDINATOR Respiratory Rate 18 07/02/2024 9:29 AM PLAN COORDINATOR Oxygen Saturation 95% 07/02/2024 10: 05 AM PLAN COORDINATOR Inhaled Oxygen Concentration - - Weight 91.8 kg (202 lb 6.4 oz) 07/02/2024 9:29 AM PLAN COORDINATOR Height 160 cm (5' 3) 03/22/2024 7:43 PM PLAN COORDINATOR Body Mass Index 35.85 03/22/2024 7:43 PM PLAN COORDINATOR Plan of Treatment Upcoming Encounters Date Type Department Care Team (Late st Contact Info) Description 07/03/2024 3:00 AM PLAN COORDINATOR Home Care Visit [facility] [address] [place] [phone] Carolyn Lye, PT [address] [place] [address] 07/10/2024 3:00 AM CDT Home Care Visit [facility] [address] [place] [phone] Carolyn Ley, PT [address] [place] [address] 07/10/2024 4:00 AM CDT Home Care Visit [facility] [address] [place] [phone] Halley Chavira COTA [address] [place] [address] 07/15/2024 5:30 AM CDT Home Care Visit [facility] [address] [facility] [address] Blanka Florentino, OT [address] [place] [address] 07/17/2024 3:00 AM CDT Home Care Visit [facility] [address] [place] [address] Carolyn Ley, PT [address] [place] [address] Health Maintenance Due Date Last Done Comments Zoster (shingles) series for age 50+ (1 of 2) 2005 BMI (ht and wt on same day) for age 18+ 01/08/2025 01/09/2024, 09/27/2022, 08/22/2022, Additional history exists Depression screening for age 12+ 01/08/2025 01/09/2024, 10/22/2023, 09/18/2023, Additional history exists Medicare Wellness for age 65+ 01/09/2025, 11/04/2020, 01/29/2019 Mammogram for age 45-75 01/13/2025 01/14/20 24, 08/20/2022, 04/07/2021, Additional history exists Fecal testing sDNA-FIT (Jean guard) for age 45-75 06/05/2025 06/05/2022 Lipids for age 45-75 01/08/2029 01/09/2024, 09/18/2023, 05/25/2022, Additional history exists Tetanus booster 10/10/2032 10/10/2022 Hepatitis C screening for ag e 18-79 Completed 05/30/2021 Pneumococcal series for age 50+ Completed , 11/04/2020 Tdap Completed 10/10/2022 DEXA/DXA scan for age 65+ Completed 01/14/2024 COVID-19 vaccine series Completed 02/04/20, 03/14/2023, 02/22/2022, Additional history exists Influenza for age 65+ Completed 02/04/2024 , 03/14/2023, 02/22/2022, Additional history exists RSV vaccine for adults or Completed 02/04/2024 Medical Devices Implanted Type Area Loss Prevention Operations Manager Device Identifier Shelf Expiration Date Model / Serial / Lot Screw Locking 3.5 X 16 Implanted:Qty: 1 on 10/16/2022 by Delmer Sheth MD at [facility] Left: Arm [id number] / / Description:SCREW LOCKING 3. 5 X 16 Plate Olecranon 8h L 114mm Implanted:Qty: 1 on 10/16/2022 by Delmer Sheth MD at [facility] Left: Arm [id number] / / Description:PLATE OLECRANON 8H L 114MM Plate Strength 2.4mm 10 Hole Implanted:Qty: 1 on 10/16/2022 by Delmer Sheth MD at [facility] Left: Arm [id number] / / Description:PLATE STRENGTH 2 .4MM 10 HOLE Screw Locking 2.4 X 14 Implanted:Qty: 1 on 10/16/2022 by Delmer Sheth MD at [facility] Left: Arm [id number] / / Screw Locking 2.4 X 15 Implanted:Qty: 1 on 10/16/2022 by Delmer Sheth MD at [facility] Left: Arm [id number] / / Description:SCREW LOCKING 2. 4 X 15 Screw Locking 2.4 X 16 Implanted:Qty: 2 on 10/16/2022 by Delmer Sheth MD at [facility] Left: Arm [id number] / / Description:SCREW LOCKING 2. 4 X 16 Screw Cortex 2.7 X 16 Implanted:Qty: 1 on 10/16/2022 by Delmer Sheth MD at [facility] Left: Arm [id number] / / Description:SCREW CORTEX 2.7 X 16 Head Elbow Od22 Id12 Explor - [id number] Implanted:Qty: 1 on 10/16/2022 by Delmer Sheth MD at [facility] Left: Arm [employer] 06/30/2032 / / [id number] Stem Elbow 7x26mm Explor - [id number] Implanted:Qty: 1 on 10/16/2022 by Delmer Sheth MD at [facility] Left: Arm [employer] 09/08/2032 / / [id number] Screw 2.0 X 18 Implanted:Qty: 1 on 10/16/2022 by Delmer Sheth MD at [facility] Left: Arm [id number] / / Description:SCREW 2.0 X 18 Screw Bone 3.5x13mm Evos Small Cortex Slf Tppng - [id number] Implanted:Qty: 3 on 10/16/2022 by Delmer Sheth MD at [facility] Left: Arm [employer] [id number] / / Screw Bone 3.5x16mm Evos Small Cortex Slf Tppng - [id number] Implanted:Qty: 1 on 10/16/2022 by Delmer Sheth MD at [facility] Left: Arm [employer] [id number] / / Screw Locking 2.7 X 18 Implanted:Qty: 3 on 10/16/2022 by Delmer Sheth MD at [facility] Left: Arm [id number] / / Screw Locking 2.7 X 36 Implanted:Qty: 1 on 10/16/2022 by Delmer Sheth MD at [facility] Left: Arm [id number] / / Description:SCREW LOCKING 2. 7 X 36 Bone Matrix 5cc [place] [employer] Dbm - [id number] Implanted:Qty: 1 on 11/07/2022 by Delmer Sheth MD at [facility] Right: Arm [employer] 02/13/2025 [id number] / [id number] / Plate Strength 2.4mm 20 Hole Implanted:Qty: 1 on 11/07/2022 by Delmer Sheth MD at [facility] Right: Arm [id number] / / Description:PLATE STRENGTH 2 .4MM 20 HOLE Screw Locking 2.4 X 10 Implanted:Qty: 3 on 11/07/2022 by Delmer Sheth MD at [facility] Right: Arm [id number] / / Description:SCREW LOCKING 2. 4 X 10 Screw Locking 2.4 X 11 Implanted:Qty: 1 on 11/07/2022 by Delmer Sheth MD at [facility] Right: Arm [id number] / / Description:SCREW LOCKING 2. 4 X 11 Screw Locking 2.4 X 12 Implanted:Qty: 1 on 11/07/2022 by Delmer Sheth MD at [facility] Right: Arm [id number] / / Description:SCREW LOCKING 2. 4 X 12 Screw Cortex 2.4 X 10 Implanted:Qty: 1 on 11/07/2022 by Delmer Sheth MD at [facility] Right: Arm [id number] / / Description:SCREW CORTEX 2.4 X 10 Screw Cortex 2.4 X 12 Implanted:Qty: 1 on 11/07/2022 by Delmer Sheth MD at [facility] Right: [facility] [id number] / / Description:SCREW CORTEX 2.4 X 12 Screw Bone 3.5x11mm Evos Small Cortex Slf Tppng - [id number] Implanted:Qty: 1 on 11/07/2022 by Delmer Sheth MD at [facility] Right: Arm [employer] [id number] / / Screw Bone 3.5x12mm Evos Small Cortex Slf Tppng - [id number] Implanted:Qty: 3 on 11/07/2022 by Delmer Sheth MD at [facility] Right: Arm [employer] [id number] / / Screw Bone 3.5x13mm Evos Small Cortex Slf Tppng - [id number] Implanted:Qty: 2 on 11/07/2022 by Delmer Sheth MD at [facility] Right: Arm [employer] [id number] / / Screw Bone 3.5x15mm Evos Small Cortex Slf Tppng Implanted:Qty: 1 on 11/07/2022 by Delmer Sheth MD at [facility] Right: Arm [id number] / / Description:SCREW BONE 3.5X1 5MM EVOS SMALL CORTEX SLF TPPNG Screw Bone 3.5x13mm Evos Locks-T - [id number] Implanted:Qty: 1 on 11/07/2022 by Delmer Sheth MD at [facility] Right: Arm [employer] [id number] / / Screw Bone 3.5x12mm Evos Locks-T Implanted:Qty: 4 on 11/07/2022 by Delmer Sheth MD at [facility] Right: Arm [id number] / / Description:Screw Bone 3.5x1 2mm Evos Locks-T Plate Locking Compression 3.5mm 8h 93mm Implanted:Qty: 1 on 11/07/2022 by Delmer Sheth MD at [facility] Right: Arm [id number] / / Description:PLATE LOCKING CO MPRESSION 3.5MM 8H 93MM Plate Radial Shaft 12h 146mm Implanted:Qty: 1 on 11/07/2022 by Delmer Sheth MD at [facility] Right: Arm [id number] / / Description:PLATE RADIAL SHA FT 12H 146MM Nail Intertan [id number] 125 Deg - [id number] Implanted:Qty: 1 on 03/23/2024 by Gigi Arreaga MD at [facility] Left: Hip [employer] 08/09/2033 [id number] / / [id number] Description:CHECKED DANIELLE Newman .................... 03/24/2024 9:31 AM Kit Bone Screw 95/90mm Comp Lag - [id number] Implanted:Qty: 1 on 03/23/2024 by Gigi Arreaga MD at [facility] Left: Hip [employer] 11/03/2033 [id number] / / [id number] Description:CHECKED DANIELLE Newman .................... 03/24/2024 9:31 AM Screw Bone 5.0x27.5mm Trigen Donald Low Profile Titnm - [id number] Implanted:Qty: 1 on 03/23/2024 by Gigi Arreaga MD at [facility] Left: Hip [employer] 08/24/2033 [id number] / / [id number] Description:CHECKED DANIELLE Newman .................... 03/24/2024 9:31 AM Explanted Type Area Loss Prevention Operations Manager Device Identifier Shelf Expiration Date Model / Serial / Lot K Wire Fix 150x1.6mm For Alysa-Loc - [id number] Explanted:Qty: 2 on 10/16/2022 at [facility] Left: Arm [employer] [id number] / / Explant Explanted:Qty: 1 on 11/07/2022 at [facility] Right: Arm Description:ULNA 1 PLATE 6 S CREWS, RADIUS 1 PLATE 6 SCREWS Procedures Procedure Name Priority Date/Time Associated Diagnosis Comments XR HIP 1 VIEW W PELVIS LEFT Routine 06/24/2024 11:55 AM PLAN COORDINATOR S/p Cephalomedullary nailing left hip 03/23/24 Dr. Gigi Arreaga XR SHOULDER 3 VIEWS RIGHT Routine 06/18/2024 2:06 PM PLAN COORDINATOR Acute pain of right shoulder SCAN-LABORATORY REPORT 06/10/2024 12:00 AM PLAN COORDINATOR XR HIP 2 OR 3 VIEWS W PELVIS LEFT Routine 05/05/2024 4:05 PM PLAN COORDINATOR s/p left femur intramedullary girma insertion DOS 03/23/24 by Yecenia Thrasher* XR FEMUR 2 VIEWS LEFT Routine 05/05/2024 4:04 PM PLAN COORDINATOR s/p left femur intramedullary girma insertion DOS 03/23/24 by Yecenia Thrasher* ARIPIPRAZOLE (ABILIFY) Routine 04/14/2024 7:57 AM PLAN COORDINATOR Other intermodal dispatcher (current) drug therapy RED CELL MORPHOLOGY Routine 04/07/2024 8 :05 AM PLAN COORDINATOR Anemia, unspecified Acute on chronic systolic (congestive) heart failure (HC) PLATELET ESTIMATE Routine 04/07/2024 8:0 5 AM PLAN COORDINATOR Anemia, unspecified Acute on chronic systolic (congestive) heart failure (HC) MANUAL DIFFERENTIAL Routine 04/07/2024 8 :05 AM PLAN COORDINATOR Anemia, unspecified Acute on chronic systolic (congestive) heart failure (HC) CBC WITH AUTO DIFFERENTIAL Routine 04/07/2024 8:05 AM PLAN COORDINATOR Anemia, unspecified Acute on chronic systolic (congestive) heart failure (HC) BASIC METABOLIC PANEL Routine 04/07/2024 8:05 AM PLAN COORDINATOR Anemia, unspecified Acute on chronic systolic (congestive) heart failure (HC) CBC WITH AUTO DIFFERENTIAL Routine 04/07/2024 8:05 AM PLAN COORDINATOR Anemia, unspecified Acute on chronic systolic (congestive) heart failure (HC) XR DXA BONE DENSITY 2 SITES AXIAL Routine 01/14/2024 2:28 PM CDT Menopause XR MAMMO RAFAT BILAT SCREEN Routine 01/14/2024 1:38 PM CDT Encounter for screening mammogram for malignant neoplasm of breast LIPID PANEL W REFLEX MEASURED LDL Routine 01/09/2024 1:50 PM CDT Hyperlipidemia, unspecified hyperlipidemia type SDNA-FIT EXTERNAL (COLOGUARD) Routine 06/05/2022 7:37 AM PLAN COORDINATOR Screening for colon cancer ANTI HCV Routine 05/30/2021 10:19 AM PLAN COORDINATOR Need for hepatitis C screening test from Last 3 Months or Most Recently Relevant to Health Maintenance Results * XR HIP 1 VIEW W PELVIS LEFT (06/24/2024 11:55 AM PLAN COORDINATOR) Anatomical Region Laterality Modality HIPS, HIPL, Pelvis Digital Radio graphy Impressions 06/25/2024 1:16 PM PLAN COORDINATOR As noted in findings above. Reading services were personally performed by Brody Chicas MD, documentation performed by Alicia Rodriguez CMA, RESIDENTIAL SOLAR SALES CONSULTANT based on my observation of services performed and provider statements to me. Brody Chicas MD 06/24/2024 Narrative 06/25/2024 1:16 PM PLAN COORDINATOR For Patients: As a result of the Cures Act, medical imaging exams and procedure reports are released immediately into your electronic medical record. You may view this report before your referring provider. If you have questions, please contact your health care provider. This radiology exam was performed at the [facility] Orthopedic [facility]iology Department in [place] and interpreted by Brody Chicas MD. HISTORY: A 69 y.o. year-old female with left hip pain with history of trauma. TECHNICAL: 2 views of the left hip were obtained consisting of a non-weightbearing Low AP pelvis and cross-table lateral. FINDINGS: AP and lateral of the left hip demonstrates healing of a left proximal femur fracture. No loss of fixation is seen. There may be a periosteal reaction on the distal aspect of the nail on the lateral cortex. Clinical correlation warranted. us Brody Chicas MD GENERAL IMAGING Final Res ult * XR SHOULDER 3 VIEWS RIGHT (06/18/2024 2:06 PM PLAN COORDINATOR) Anatomical Region Laterality Modality SHOULDERS, SHOULDER R Computed R adiography 06/19/2024 2:19 PM PLAN COORDINATOR Impressions 06/19/2024 2:19 PM PLAN COORDINATOR 1. No acute abnormality. 2. Advanced glenohumeral joint osteoarthritis. Dictated by Deion Lewis MD @ 06/19/2024 2:19:07 PM (Electronically Signed) Narrative 06/19/2024 2:19 PM PLAN COORDINATOR For Patients: As a result of the Cures Act, medical imaging exams and procedure reports are released immediately into your electronic medical record. You may view this report before your referring provider. If you have questions, please contact your health care provider. INDICATION: Acute right shoulder pain TECHNIQUE: Three views of the right shoulder. COMPARISON: None. FINDINGS: No fracture or dislocation. Advanced glenohumeral joint osteoarthritis with bony remodeling. AC joint grossly negative. Procedure Note Deion Lewis MD - 06/19/2024 For Patients: As a result of the s Act, medical imagingexams and procedure reports are released immediately into your electronicmedical record. You may view this report before your referring provider.If you have questions, please contact your health care provider. INDICATION: Acute right shoulder pain TECHNIQUE: Three views of the right shoulder. COMPARISON: None. FINDINGS: No fracture or dislocation. Advanced glenohumeral joint osteoarthritiswith bony remodeling. AC joint grossly negative. IMPRESSION: 1. No acute abnormality. 2. Advanced glenohumeral joint osteoarthritis. Dictated by Deion Lewis MD @ 06/19/2024 2:19:07 PM (Electronically Signed) us Yecenia Thrasher MD GENERAL IMAGING Final Result * SCAN-LABORATORY REPORT (06/10/2024 12:00 AM PLAN COORDINATOR) us Scanner OTHER Final Result * XR HIP 2 OR 3 VIEWS W PELVIS LEFT (05/05/2024 4:05 PM PLAN COORDINATOR) Anatomical Region Laterality Modality HIPS, HIPL, Pelvis Digital Radio graphy 05/07/2024 8:14 AM PLAN COORDINATOR Narrative 05/07/2024 8:14 AM PLAN COORDINATOR For Patients: As a result of the s Act, medical imaging exams and procedure reports are released immediately into your electronic medical record. You may view this report before your referring provider. If you have questions, please contact your health care provider. INDICATION : Fracture TECHNIQUE : 3 View pelvis and left hip FINDINGS : Intertrochanteric fracture of the left proximal femur with cephalomedullary hardware stabilization and anatomic alignment. IMPRESSION : Satisfactory exam postreduction left intertrochanteric femur fracture. Dictated by Meir Ellison MD @ 05/07/2024 8:14:24 AM (Electronically Signed) Procedure Note Meir Ellison MD - 05/07/2024 For Patients: As a result of the s Act, medical imagingexams and procedure reports are released immediately into your electronicmedical record. You may view this report before your referring provider.If you have questions, please contact your health care provider. INDICATION : Fracture TECHNIQUE : 3 View pelvis and left hip FINDINGS : Intertrochanteric fracture of the left proximal femur withcephalomedullary hardware stabilization and anatomic alignment. IMPRESSION : Satisfactory exam postreduction left intertrochanteric femur fracture. Dictated by Meir Ellison MD @ 05/07/2024 8:14:24 AM (Electronically Signed) Prudencio Pleitez DO GENERAL IMAGING Final Resu lt * XR FEMUR 2 VIEWS LEFT (05/05/2024 4:04 PM PLAN COORDINATOR) Anatomical Region Laterality Modality FEMURS, FEMUR L Digital Radiogra phy 05/07/2024 8:13 AM PLAN COORDINATOR Narrative 05/07/2024 8:13 AM PLAN COORDINATOR For Patients: As a result of the Cures Act, medical imaging exams and procedure reports are released immediately into your electronic medical record. You may view this report before your referring provider. If you have questions, please contact your health care provider. INDICATION : Fracture TECHNIQUE : 2View left hip and femur FINDINGS : AP and lateral views with 5 images total. Intact cephalomedullary hardware in the left femur. Anatomic alignment of the intertrochanteric fracture with early bony callus formation. Osteoarthrosis changes of the knee. IMPRESSION : Satisfactory open reduction internal fixation left intertrochanteric femur fracture. Dictated by Meir Ellison MD @ 05/07/2024 8:13:36 AM (Electronically Signed) Procedure Note Meir Ellison MD - 05/07/2024 For Patients: As a result of the Cures Act, medical imagingexams and procedure reports are released immediately into your electronicmedical record. You may view this report before your referring provider.If you have questions, please contact your health care provider. INDICATION : Fracture TECHNIQUE : 2View left hip and femur FINDINGS : AP and lateral views with 5 images total. Intact cephalomedullary hardware in the left femur. Anatomic alignment ofthe intertrochanteric fracture with early bony callus formation.Osteoarthrosis changes of the knee. IMPRESSION : Satisfactory open reduction internal fixation left intertrochanteric femurfracture. Dictated by Meir Ellison MD @ 05/07/2024 8:13:36 AM (Electronically Signed) us Prudencio Pleitez DO GENERAL IMAGING Final Resu lt * ARIPIPRAZOLE (ABILIFY) (04/14/2024 7:57 AM PLAN COORDINATOR) Pathologist [facility] ARIPIPRAZOLE 431.6 ng/mL 04/20/2024 11:53 AM PLAN COORDINATOR [place] Comment: Expected steady state plasma levels in patients receiving recommended daily dosages: 109.0-585.0 ng/mL This test was developed and its performance characteristics determined by [employer]. It has not been cleared or approved by the Food and Drug Administration. Blood BLOOD SPECIMEN / Unknown Venipuncture / Unknown 04/14/2024 7:57 AM PLAN COORDINATOR 04/14/2024 9:33 AM PLAN COORDINATOR us Abdirahman Vaughn MD SEND OUTS Final Result Performing Organization Address [facility]/State/[facility] Co de Phone Number [facility] [address] [place] [address], * (ABNORMAL) CBC WITH AUTO DIFFERENTIAL (04/07/2024 8:05 AM PLAN COORDINATOR) Pathologist [facility] WHITE BLOOD COUNT 4.4(L) 4.5 - 11.0 thou/cu mm 04/07/2024 10:[address] [facility] RED BLOOD COUNT 3.51(L) 4.00 - 5.20 mil/cu mm 04/07/2024 10:[address] [facility] HEMOGLOBIN 9.9(L) 12.0 - 16.0 g/dL 04/07/2024 10:[address] [facility] HEMATOCRIT 32.5(L) 33.0 - 51.0 % 04/07/2024 10:[address] [facility] MCV 93 80 - 100 fL 04/07/2024 10:[address] [facility] MCH 28.2 26.0 - 34.0 pg 04/07/2024 10:[address] [facility] MCHC 30.5(L) 32.0 - 36.0 g/dL 04/07/2024 10:[address] [facility] RDW 14.7 11.5 - 15.5 % 04/07/2024 10:[address] [facility] PLATELET COUNT 357 140 - 440 thou/cu mm 04/07/2024 10:[address] [facility] MPV 10.4 6.5 - 11.0 fL 04/07/2024 10:[address] [facility] Blood BLOOD SPECIMEN / Unknown Butterfly / Unknown 04/07/2024 8:05 AM PLAN COORDINATOR 04/07/2024 9:28 AM PLAN COORDINATOR Abdirahman Vaughn MD HEMATOLOGY Final Result Performing Organization Address City/[facility]/ZIP Co de Phone Number [facility] [address] [place] [address] * (ABNORMAL) RED CELL MORPHOLOGY (04/07/2024 8:05 AM PLAN COORDINATOR) ELLIPTOCYTES Few 04/07/2024 10:[address] [facility] RBC COMMENT Present(A ) RBC morphology appears normal, RBC morphology within normal limits for newborns. 04/07/2024 10:[address] [facility] Blood BLOOD SPECIMEN / Unknown Butterfly / Unknown 04/07/2024 8:05 AM PLAN COORDINATOR 04/07/2024 9:28 AM PLAN COORDINATOR Abdirahman Vaughn MD HEMATOLOGY Final Result Performing Organization Address [facility]/ZIP Co de Phone Number [facility] [address] [place] [address] * PLATELET ESTIMATE (04/07/2024 8:05 AM PLAN COORDINATOR) PLATELET ESTIMATE Adequate Adequate, No estimate 04/07/2024 10:[address] [facility] Blood BLOOD SPECIMEN / Unknown Butterfly / Unknown 04/07/2024 8:05 AM PLAN COORDINATOR 04/07/2024 9:28 AM PLAN COORDINATOR Abdirahman Vaughn MD HEMATOLOGY Final Result [facility] [address] [place] [address] * MANUAL DIFFERENTIAL (04/07/2024 8:05 AM PLAN COORDINATOR) % NEUTROPHILS 65.0 % 04/07/2024 10:[address] [facility] % LYMPHOCYTES 27.0 % 04/07/2024 10:[address] [facility] % MONOCYTES 8.0 % 04/07/2024 10:[address] [facility] % EOSINOPHILS 0.0 % 04/07/2024 10:[address] [facility] % BASOPHILS 0.0 % 04/07/2024 10:[address] [facility] NEUTROPHILS ABSOLUTE 2.9 1.7 - 7.0 thou/cu mm 04/07/2024 10:[address] [facility] LYMPHOCYTES ABSOLUTE 1.2 0.9 - 2.9 thou/cu mm 04/07/2024 10:[address] [facility] MONOCYTES ABSOLUTE 0.4 <0.9 thou/cu mm 04/07/2024 10:[address] [facility] EOSINOPHILS ABSOLUTE 0.0 <0.5 thou/cu mm 04/07/2024 10:[address] [facility] BASOPHILS ABSOLUTE 0.0 <0.3 thou/cu mm 04/07/2024 10:[address] [facility] Blood BLOOD SPECIMEN / Unknown Butterfly / Unknown 04/07/2024 8:05 AM PLAN COORDINATOR 04/07/2024 9:28 AM PLAN COORDINATOR us Abdirahman Vaughn MD HEMATOLOGY Final Result [facility] [address] [place] [address] * (ABNORMAL) BASIC METABOLIC PANEL (04/07/2024 8:05 AM PLAN COORDINATOR) SODIUM 141 136 - 145 mmol/L 04/07/2024 10:[address] [facility] POTASSIUM 3.8 3.5 - 5.1 mmol/L 04/07/2024 10:[address] [facility] CHLORIDE 102 98 - 107 mmol/L 04/07/2024 10:[address] [facility] CO2,TOTAL 27 22 - 29 mmol/L 04/07/2024 10:[address] [facility] ANION GAP 12 5 - 18 04/07/2024 10:[address] [facility] GLUCOSE 106(H) 70 - 99 mg/dL 04/07/2024 10:[address] [facility] CALCIUM 9.3 8.8 - 10.4 mg/dL 04/07/2024 10:[address] [facility] Comment: Reference ranges for this test were updated on 03/03/2024 to reflect our healthy population more accurately. Reference range changes are not retroactively applied to results, but previous results using the same methodology can be interpreted in the context of the new reference range. BUN 12 8 - 23 mg/dL 04/07/2024 10:[address] [facility] CREATININE 0.64 0.50 - 0.90 mg/dL 04/07/2024 10:[address] [facility] BUN/CREAT RATIO 19 10 - 20 10:[address] [facility] eGFR >90 >90 mL/min/1. 73m2 04/07/2024 10:[address] [facility] Comment:As of 2021, eG FR is calculated by the CKD-EPI creatinine equation without race adjustment. eGFR can be influenced by muscle mass, exercise, and diet. The reported eGFR is an estimation only and is only applicable if the renal function is stable. Blood BLOOD SPECIMEN / Unknown Butterfly / Unknown 04/07/2024 8:05 AM PLAN COORDINATOR 04/07/2024 9:28 AM PLAN COORDINATOR us Abdirahman Vaughn MD CHEMISTRY Final Result [facility] [address] [facility] [place] [address] * (ABNORMAL) XR DXA BONE DENSITY 2 [...] recommended in 3-5 years. Arabella Armijo PA-C [facility] 01/21/2024 Narrative 01/21/2024 1:16 PM CDT For Patients: Results are automatically released to your [facility] ([facility]) account once available, in compliance with federal regulations. This means that you may see your results before your provider has had a chance to review them. Please allow 2-3 business days for your provider to comment on the results. XR DXA Bone Mineral Density (BMD) EXAM LOCATION: [address] [address] PATIENT NAME: Sarah Reyes DATE OF : 1955 EXAM DATE: 01/14/2024 [...] two scanners are made by the same ground crew chief. PROCEDURE: Dual-energy x-ray absorptiometry performed with routine [...] 8.9%. 10-year probability of hip fracture: 1.2%. us Yecenia Thrasher MD DEXA Final Result * XR MAMMO RAFAT BILAT SCREEN (01/14/2024 [...] care provider. XR MAMMO RAFAT BILAT SCREEN [[id number]] CLINICAL HISTORY: This is an asymptomatic 68 y.o. patient. INDICATION FOR EXAM: Mammogram Screening. TECHNIQUE: CC & MLO views were obtained. This study was evaluated with the assistance of Computer-Aided Detection. Breast Tomosynthesis was used in interpretation. COMPARISON FILM: Yes 08/20/22 [facility] 04/07/21 [facility] FINDINGS: There are scattered areas of fibroglandular density. There are no dominant masses, suspicious micro calcifications or areas of architectural distortion. us Yecenia Thrasher MD MAMMO Final Result * LIPID PANEL W REFLEX MEASURED LDL (01/09/2024 1:50 PM CDT) CHOLESTEROL,TOTAL 123 100 - 199 mg/dL 01/10/2024 4:18 AM CDT [facility] Comment: Cholesterol, Total Reference Ranges Desirable <200 mg/dL Borderline 200-239 mg/dL High >=240 mg/dL TRIGLYCERIDES 88 <150 mg/dL 01/10/2024 4:18 AM CDT [facility] HDL CHOLESTEROL 68 >40 mg/dL 4:18 AM CDT [facility] NON-HDL CHOLESTEROL 55 <145 mg/dl 01/10/2024 4:18 AM CDT [facility] CHOL/HDL RATIO 1.81 <4.50 01/10/2024 4:18 AM CDT [facility] LDL CHOLESTEROL 37 <=130 mg/dL 01/10/2024 4:18 AM CDT [facility] VLDL CHOLESTEROL 18 <=30 mg/dL 01/10/2024 4:18 AM CDT [facility] PROVIDER ORDERED STATUS RANDOM 01/10/2024 4:18 AM CDT [facility] Blood BLOOD SPECIMEN / Unknown Venipuncture / Unknown 01/09/2024 1:50 PM CDT 01/09/2024 1:50 PM CDT Yecenia Thrasher MD CHEMISTRY Final Result [facility] [address] [place] [address], [place] * SDNA-FIT EXTERNAL (COLOGUARD) (06/05/2022 7:37 AM PLAN COORDINATOR) NONINV COLON CA DNA+OCC BLD SCRN STL-IMP Negative Negative 06/12/2022 11:42 PM PLAN COORDINATOR [facility] (CLIA #:[id number]) Comment: NEGATIVE TEST RESULT. A negative Cologuard [...] Byrd et al, N Engl J Med 2014;370(14):3411-5823) The normal value (reference range) for this assay is negative. COLOGUARD RE-SCREENING RECOMMENDATION: Periodic colorectal cancer screening is an important part of preventive healthcare for asymptomatic individuals at average risk for colorectal cancer. Following a negative Cologuard result, the [place] [employer] and U.S. Multi-Society Task Force screening guidelines recommend a Cologuard re-screening interval of 3 years. References: [place] [employer] Guideline for Colorectal Cancer Screening: https://www.cancer.org/cancer/mrfbl-ziinwo-rvcsbp/cvmolczmv-bcthyrtae-uowjbqc/ac s-rec ommendations.html.; Ayaan DK, Radha CR, Jacob ElkinsK, Colorectal Cancer Screening: Recommendations for Physicians and Patients from the U.S. Multi-Society Task Force on Colorectal Cancer Screening , Am J Gastroenterology 2017; 112:5339-2994. TEST DESCRIPTION: Composite algorithmic analysis of stool [...] (Clyde Ahuja al, N Engl J Med 2014;370(14):7411-6137.) Cologuard may produce a false negative or false positive result (no colorectal cancer or precancerous polyp present at colonoscopy follow up). A negative Cologuard test result does not guarantee the absence of CRC or advanced adenoma (pre-cancer). The current Cologuard screening interval is every 3 years. ([place] [employer] and U.S. Multi-Society Task Force). Cologuard performance data in a 10,000 patient pivotal study using colonoscopy as the reference method can be accessed at the following location: www.MediaTrust.OLX/results. Additional description of the Cologuard test process, warnings and precautions can be found at www.Siterrard.OLX. Stool specimen (specimen) (Rectum) 06/05/2022 7:37 AM PLAN COORDINATOR 06/06/2022 12:39 PM PLAN COORDINATOR us Yecenia Thrasher MD URINE Final Result [facility] app (CLIA #:[id number]) [place] [address], * ANTI HCV (05/30/2021 10:19 AM PLAN COORDINATOR) HEPATITIS C ANTIBODY Non-React armida Non-React armida 05/30/2021 6:36 PM PLAN COORDINATOR [facility] Comment:Antibodies to HCV no t detected; does not exclude the possibility of exposure to HCV. Blood BLOOD SPECIMEN / Unknown Venipuncture / Unknown 05/30/2021 10:19 AM PLAN COORDINATOR 05/30/2021 10:19 AM PLAN COORDINATOR us Yecenia Thrasher MD SEND OUTS Final Result [facility] [address] [place] [address], [place] from Last 3 Months or Most Recently Relevant to Health Maintenance Insurance MEDICARE [place] ONLY MEDICAID MEDICARE PART B HB ONLY MEDICARE PART A HB ONLY MEDICARE PPS MEDICAID Advance Directives Documents on File Type Date Recorded Patient Airport Operations Manager Expl anation POLST 10/23/2022 Healthcare Directive 05/24/2021 022 * Full Code (Latest Code Status on File) Date Activated Date Inactivated Comments 03/22/2024 7:55 PM 04/02/2024 11:15 AM Question Answer Comments Code Status Discussion: Other [...] Code Status Discussion: Reviewed Preferences Care Teams Machine Heel Builder Relationship Specialty Start Date End Date Yecenia Thrasher MD [address] [place] [address] PCP - General Family Practice 04/07/21 [facility] [address] [place] [address] 05/21/24
[2024-07-02 18:13] VITALS: BP 105/71; PULSE 96; RESP 20; TEMP 36.2; O2SAT 96
--- OUTSIDE RECORDS SUMMARY | 2024-07-02 19:35 | XMS_ITS ---
Author Organization [facility] Care Team Providers Care Hydraulic Spinner Name Role Phone Joleen Cho Unavailable Unavailable Gregoria Paz Unavailable Unavailable Abdirahman Vaughn Unavailable Unavailable Allergies and adverse reactions No Known Allergies Care Team Name Role Address Phone Organization Dates Abdirahman Vaughn PCP [facility] [address] [place] [address], [address], [place], [place], [facility] (Office): [facility] 04/02/2024 - 05/04/2024 Joleen Cho Attending Physician [facility] 04/02/2024 - 05/04/2024 Gregoria Paz Attending Physician [place] [id number] [facility] [address], [place], [place], [facility] (Office): : [facility] 04/02/2024 - 05/04/2024 Immunizations Immunization Status Vaccine Details Vaccine Code CodeSystem Date Notes Influenza completed Influenza, high-dose, split virus, quadrivalent, injectable, preservative free 197 CVX created date: 10/19/2022 administer ed date: 02/22/2022 TB 2 Step Mantoux Skin Test completed tuberculin skin test; unspecified formulation lotNumber: [id number] expiry: 11/27/2026 Mfg: Sanofi Given 0.1 ml Left Forearm intradermally Step 2 of Multi-step with next step required 98 CVX created date: 04/05/2024 consent date: 04/16/2024 administer ed date: 04/16/2024 TB 2 Step Mantoux Skin Test completed tuberculin skin test; unspecified formulation lotNumber: [id number] expiry: 12/27/2026 Mfg: Sanofi [employer] Given 0.1 ml Right Forearm intradermally Step 1 of Multi-step with next step required 98 CVX created date: 04/03/2024 consent date: 04/02/2024 administer ed date: 04/03/2024 Educated by on 04/05/2024 TDAP completed tetanus toxoid, reduced diphtheria toxoid, and acellular pertussis vaccine, adsorbed 115 CVX created date: 10/19/2022 administer ed date: 10/10/2022 PPSV23, Pneumovax 23 completed pneumococcal polysaccharide vaccine, 23 valent 33 CVX created date: 10/19/2022 administer ed date: 11/04/2020 PCV13, Cyiehgb08 completed pneumococcal conjugate vaccine, 13 valent 133 CVX created date: 10/19/2022 administer ed date: 05/25/2022 QuantiFERON-TB Gold completed no vaccine administered 998 CVX created date: 11/08/2022 administer ed date: 10/30/2022 negative Influenza-High Dose completed Influenza, high-dose, split virus, quadrivalent, injectable, preservative free 197 CVX created date: 04/01/2024 administer ed date: 02/04/2024 COVID-19 Vaccine dose 1 completed SARS-COV-2 (COVID-19) vaccine, mRNA, spike protein, LNP, preservative free, 30 mcg/0.3mL dose 208 CVX created date: 10/19/2022 administer ed date: 07/17/2020 COVID-19 Vaccine dose 2 completed SARS-COV-2 (COVID-19) vaccine, mRNA, spike protein, LNP, preservative free, 30 mcg/0.3mL dose 208 CVX created date: 10/19/2022 administer ed date: 07/29/2020 COVID-19 Vaccine dose 3 completed SARS-COV-2 (COVID-19) vaccine, mRNA, spike protein, LNP, preservative free, 30 mcg/0.3mL dose 208 CVX created date: 10/19/2022 administer ed date: 02/16/2021 COVID-19 Vaccine dose 4 completed SARS-COV-2 (COVID-19) vaccine, mRNA, spike protein, LNP, preservative free, 30 mcg/0.3mL dose 208 CVX created date: 10/19/2022 consent date: 10/19/2022 administer ed date: 02/22/2022 RSV (respiratory syncytial virus)Vaccine completed Respiratory syncytial virus (RSV), vaccine, bivalent, protein subunit RSV prefusion F, diluent reconstituted, 0.5 mL, preservative free 305 CVX created date: 04/01/2024 administer ed date: 02/04/2024 COVID-19 SARS [id number] completed SARS-COV-2 (COVID-19) vaccine, mRNA, spike protein, LNP, preservative free, 50 mcg/0.5 mL dose Mfg: Moderna 312 CVX created date: 04/01/2024 administer ed date: 02/04/2024 Mental Status Section Date Assessment Total Score Description 05/04/2024 BIMS 15 cognitively int act CAM 0 No delirium ind icated 04/09/2024 BIMS 15 cognitively int act CAM 0 No delirium ind icated Problems Problem # Description Date of onset Resolved Date Code CodeSystem Concern Status 1 AGE-RELATED OSTEOPOROSIS WITH CURRENT PATHOLOGICAL FRACTURE, LEFT FEMUR, SUBSEQUENT ENCOUNTER FOR FRACTURE WITH ROUTINE HEALING 04/02/[address] active 2 CHRONIC DIASTOLIC (CONGESTIVE) HEART FAILURE 04/02/[address] active 3 DEPENDENCE ON OTHER ENABLING MACHINES AND DEVICES 04/02/[address] active 4 HISTORY OF FALLING 04/02/[address] active 5 NONRHEUMATIC MITRAL (VALVE) STENOSIS 04/02/[address] active 6 OBESITY, CLASS 3 04/02/[address] active 7 OTHER SPECIFIED POSTPROCEDURAL STATES 04/02/[address] active 8 PARANOID SCHIZOPHRENIA 04/02/[address] active 9 POLYOSTEOARTHRITIS, UNSPECIFIED 04/02/[address] active 10 UNSPECIFIED FRACTURE OF RIGHT FOREARM, SEQUELA 11/10/19 23 01/17/[address] completed 11 MORBID (SEVERE) OBESITY DUE TO EXCESS CALORIES 10/30/19 23 01/17/[address] completed 12 OTHER SPECIFIED PERSONAL RISK FACTORS, NOT ELSEWHERE CLASSIFIED 10/30/19 23 01/17/[address] completed 13 DEPENDENCE ON SUPPLEMENTAL OXYGEN 10/25/19 23 01/17/[address] completed 14 ANXIETY DISORDER, UNSPECIFIED 10/24/[address] active 15 CHRONIC OBSTRUCTIVE PULMONARY DISEASE, UNSPECIFIED 10/24/[address] active 16 CONSTIPATION, UNSPECIFIED 10/24/[address] active 17 GASTRO-ESOPHAGEAL REFLUX DISEASE WITHOUT ESOPHAGITIS 10/24/[address] active 18 HYPERLIPIDEMIA, UNSPECIFIED 10/24/[address] active 19 HYPERTENSIVE HEART DISEASE WITH HEART FAILURE 10/24/[address] active 20 IRON DEFICIENCY ANEMIA SECONDARY TO BLOOD LOSS (CHRONIC) 10/24/[address] active 21 MONTEGGIA'S FRACTURE OF LEFT ULNA, SUBSEQUENT ENCOUNTER FOR CLOSED FRACTURE WITH ROUTINE HEALING 10/24/19 23 01/17/[address] completed 22 NONRHEUMATIC MITRAL (VALVE) INSUFFICIENCY 10/24/[address] active 23 OBSTRUCTIVE SLEEP APNEA (ADULT) (PEDIATRIC) 10/24/[address] active 24 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 10/24/[address] active 25 PSYCHOPHYSIOLOGIC INSOMNIA 10/24/[address] active 26 SCHIZOPHRENIA, UNSPECIFIED 10/24/19 23 01/17/[address] completed 27 TYPE 2 DIABETES MELLITUS WITH DIABETIC POLYNEUROPATHY 10/24/[address] active 28 UNSPECIFIED ASTHMA, UNCOMPLICATED 10/24/[address] active 29 UNSPECIFIED DIASTOLIC (CONGESTIVE) HEART FAILURE 10/24/1901/17/[address] completed 30 UNSPECIFIED FRACTURE OF RIGHT FOREARM, SUBSEQUENT ENCOUNTER FOR CLOSED FRACTURE WITH ROUTINE HEALING 10/24/1911/06/[address] completed Reason for Referral No Reasons for Referral Entered Social History Social History Observation Description Start Date End Date Code Code System Current Smoking Status Tobacco smoking consumption unknown 717410895 SNOMED CT Sex Assigned At Female 1955 74315-3 [facility] Vital Signs Code Code System Vitals Name Values and Units Timing Information 20400-3 [facility] Pain Level Value=0.0 05/04/2024 9279-1 [facility] Respiratory Rate Value=16.0 Units=/m in 05/03/2024 8462-4 [facility] Blood Pressure-Diastolic Value=91 Un its=mmHg 05/03/2024 8480-6 [facility] Blood Pressure-Systolic Lqmvd=606 Un its=mmHg 05/03/2024 8310-5 [facility] Body Temperature Value=97.9 Units= F 05/03/2024 8867-4 [facility] Heart rate Value=95.0 Units=/min 08/2024 22857-3 [facility] O2 % BldC Oximetry Value=96.0 Units= % 05/03/2024 84714-7 [facility] Weight Zgjag=327.0 Units=Lbs 06/2024 2339-0 [facility] Blood Sugar Rbdie=815.0 Units=mg/dL 04/12/2024 8302-2 [facility] Height Value=64.0 Units=Inches 04/10/2024
--- OUTSIDE RECORDS SUMMARY | 2024-07-02 19:35 | XMS_ITS | Clinical Summary ---
Author Organization [facility] Address [address] [place] [address] Care Team Providers Care Resident Care Provider Name Role Phone Elsewhere, Pcp Primary Care Provider Unavailabl e Source Comments Patient records contain information from all sites at [facility]. For routine questions regarding patient records, call [phone] during business hours, M-F 8:00 AM - 5:00 PM Central Time. 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 LAB BLOOD ADD-ON Final Result [facility] [address] [place] [address], [place] DTL [facility] [address] [place] [address] from Last 3 Months or Most Recently Relevant to Health Maintenance Insurance MEDICARE [place] MEDICAID Advance Directives For more information, please contact: [phone] * Full Code (Latest Code Status on [...] Due to: Patient not available Care Teams Resident Care Provider Relationship Specialty Start Date End Date Elsewhere, Pcp PCP - General Internal Medicine 01/24/23
--- OUTSIDE RECORDS SUMMARY | 2024-07-02 19:35 | XMS_ITS | Clinical Summary ---
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 05/26/2018 Paranoid schizophrenia [...] Department Care Team Description 07/02/2024 9:15 AM 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 Home Care Visit [facility] [address] [place] [address] Halley Chavira COTA OT - HOME VISIT 06/30/2024 Refill [facility] [address] [place] [address] Yecenia Thrasher MD Refill Request (Breo Ellipta 100 mcg/dose powder for inhalation ) 06/29/2024 Refill [facility] [address] [place] [address] Yecenia Thrasher MD Refill Request (FLUTIC/VILAN INH 100-25) 06/24/2024 11:40 AM 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 Ancillary Procedure [facility] [address] [facility] [address] [place] [address] 06/24/2024 11:00 AM 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 Office Visit [facility] [address] [place] [address] Brody Chicas MD Surgical Followup (S/p Cephalomedullary nailing left hip 03/23/24 Dr. Gigi Arreaga) 06/24/2024 Telephone [facility] [address] [place] [address] Fernando Couch MD REMS 06/24/2024 Home Care Visit [facility] [address] [place] [address] Blanka Florentino, OT DUENAS SUPERVISION 06/24/2024 Travel 06/23/2024 3:45 PM 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 Home Care Visit [facility] [address] [place] [address] Blanka Florentino, OT OT - REASSESSMENT 06/23/2024 10:15 AM 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 Home Care Visit [facility] [address] [place] [address] Carolyn Ley, PT PT - HOME VISIT 06/22/2024 Travel 06/19/2024 9:45 AM 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 Home Care Visit [facility] [address] [place] [address] Carolyn Ley, PT PT - REASSESSMENT 06/18/2024 1:45 PM 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 Ancillary Procedure [facility] [address] [place] [address] 06/18/2024 12:35 PM 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 Office Visit [facility] [address] [place] [address] Yecenia Thrasher MD Follow Up (Leg edema, looking better); Musculoskeletal Problem (Mid arm to rt shoulder pain, doing exercises) 06/18/2024 Telephone [facility] [address] [place] [address] Yecenia Thrasher MD Refill Request 06/18/2024 Travel 06/16/2024 2:30 PM 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 Home Care Visit [facility] [address] [place] [address] Halley Chavira, DUENAS OT - HOME VISIT 06/16/2024 10:45 AM 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 Home Care Visit [facility] [address] [place] [address] Carolyn Ley, PT PT - HOME VISIT 06/15/2024 Refill [facility] [address] [place] [address] Yecenia Thrasher MD Refill Request (lisinopril) 06/11/2024 2:30 PM 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 Home Care Visit [facility] [address] [place] [address] Halley Chavira, DUENAS OT - HOME VISIT 06/11/2024 9:45 AM 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 Home Care Visit [facility] [address] [place] [address] Carolyn Ley, PT PT - HOME VISIT 06/10/2024 Orders Only [facility] Scanner 1 scan: (1-Ord) [facility], MULTIPLE LAB RESULTS, 06/10/2024 06/09/2024 2:45 PM 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 Home Care Visit [facility] [address] [place] [address] Halley Chavira, DUENAS OT - HOME VISIT 06/08/2024 12:45 PM 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 Home Care Visit [facility] [address] [place] [address] Carolyn Ley, PT PT - HOME VISIT 06/05/2024 9:45 AM 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 Home Care Visit [facility] [address] [place] [address] Carolyn Ley, PT PT - HOME VISIT 06/05/2024 Home Care Visit [facility] [address] [place] [address] Blanka Florentino, OT OT - EDEMA/LYMPHEDEMA HOME VISIT 06/05/2024 Refill [facility] [address] [place] [address] Yeceina Thrasher MD Refill Request; ACETAMIN 06/03/2024 Refill [facility] [address] [place] [address] Fernando Couch MD Refill Request (Abilify, Celexa and trazodone) 06/02/2024 9:45 AM 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 Home Care Visit [facility] [address] [place] [address] Carolyn Ley, PT PT - HOME VISIT 06/02/2024 Refill [facility] [address] [place] [address] Yecenia Thrasher MD Refill Request (Acetaminophen) 06/02/2024 Refill [facility] [address] [place] [address] Yecenia Thrasher MD Refill Request (Trazodone, Pantoprazole, Oxybutynin Xl, Metoprolol Succinate, Furosemide, Ferrous Gluconate, Citalopram, Cholecalciferol, Atorvastatin, Aripiprazole) 05/28/2024 3:45 PM 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 Home Care Visit [facility] [address] [place] [address] Blanka Florentino, OT OT - INITIAL ASSESSMENT 05/28/2024 9:45 AM 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 Home Care Visit [facility] [address] [place] [address], [place] [address] Carolyn Ley, PT PT - HOME VISIT 05/26/2024 10:45 AM 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 Home Care Visit [facility] [address] [place] [phone] Carolyn Ley, PT PT - HOME VISIT 05/22/2024 12:30 PM 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 Home Care Visit [facility] [address] [place] [address] Carolyn Ley, PT PT - OASIS START OF CARE 05/22/2024 Telephone [facility] [address] [place] [address] Carolyn Ley, PT Home Care (Requesting ongoing homecare orders; also, medication discrepancies) 05/22/2024 Plan of Care Documentation [facility] [address] [place] [address] 05/21/2024 9:05 AM 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 Office Visit [facility] [address] [place] [address] Yecenia Thrasher MD [facility] F/U (Had hip surgery at [facility] 03/22/24 after ER visit/At [facility],since 05/04. Still needs PT/OT at [facility]. /Legs are swollen ) 05/21/2024 Telephone [facility] [address] [place] [address] Fernando Couch MD REMS 05/20/2024 Travel 05/06/2024 Telephone [facility] - [address] [place] [address] Pcp, No Appointment Request 05/06/2024 Telephone [facility] [address] [place] [address] Fernando Couch MD 05/05/2024 3:30 PM 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 Ancillary Procedure [facility] [address] [facility] [address] [place] [address] 05/05/2024 3:25 PM 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 Ancillary Procedure [facility] [address] [facility] [address] [place] [address] 05/05/2024 3:00 PM 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 Office Visit [facility] [address] [facility] [address] [place] [address] Prudencio Pleitez, Hip Pain/problem (S/p left hip fracture) 05/04/2024 Travel 04/27/2024 Telephone [facility] [address] [place] [address] Fernando Couch MD Form (Lab schedule form) 04/20/2024 Telephone [facility] [address] [place] [address] Yecenia Thrasher MD Questions 04/17/2024 Telephone [facility] [address] [place] [phone] Gigi Arreaga MD Post-op (1ST POST OP ) 04/10/2024 Lab Requisition [facility] [phone] Abdirahman Vaughn MD 04/09/2024 9:00 AM 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 Telemedicine [facility] [address] [place] [address] Fernando Couch MD Telehealth; Medication Management (Things could be better, broke left hip ) 04/09/2024 Telephone [facility] [address] [place] [address] Fernando Couch MD Pharmacist Medication Management (cloZAPine (CLOZARIL) 25 mg tablet) 04/09/2024 Telephone [facility] [address] [place] [address] Fernando Couch MD fax 04/06/2024 Lab Requisition [facility] [phone] Abdirahman Vaughn MD 04/03/2024 Lab Requisition [facility] [phone] Gregoria Paz NP from Last 3 Months [...] on file Legal Sex Female 10:52 AM 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 Gender Identity Not on file Sexual [...] Comments Blood Pressure 130/68 07/02/2024 9:29 AM 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 Pulse 107 07/02/2024 10:05 AM 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 with activity Temperature 36.4 C (97.5 F) 07/02/2024 9:29 AM 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 Respiratory Rate 18 07/02/2024 9:29 AM 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 Oxygen Saturation 95% 07/02/2024 10: 05 AM 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 Inhaled Oxygen Concentration - - Weight 91.8 kg (202 lb 6.4 oz) 07/02/2024 9:29 AM 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 Height 160 cm (5' 3) 03/22/2024 7:43 PM 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 Body Mass Index 35.85 03/22/2024 7:43 PM 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 Plan of Treatment Upcoming Encounters Date Type Department Care Team (Late st Contact Info) Description 07/03/2024 3:00 PM 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 Home Care Visit [facility] [address] [place] [phone] Carolyn Ley, PT [address] [place] [address] 07/10/2024 3:00 AM CDT Home Care Visit [facility] [address] [place] [phone] Carolyn Ley, PT [address] [place] [address] 07/10/2024 4:00 AM CDT Home Care Visit [facility] [address] [place] [phone] Halley Chavira COTA [address] [place] [address] 07/15/2024 5:30 AM CDT Home Care Visit [facility] [address] [place] [address] Blanka Florentino, OT [address] [place] [address] 07/17/2024 3:00 AM CDT Home Care Visit [facility] [address] [place] [address] Carolyn Ley, PT [address] [place] [address] Health Maintenance Due Date Last Done Comments [...] 04/07/2021, Additional history exists Fecal testing sDNA-FIT ([place] guard) for age 45-75 06/05/2025 06/05/2022 Lipids [...] Completed 02/04/2024 Medical Devices Implanted Type Area Laundry Aide Device Identifier Shelf Expiration Date Model / Serial / Lot Screw Locking 3.5 X 16 Implanted:Qty: 1 on 10/16/2022 by Delmer Sheth MD at [facility] Left: Arm [id number] / / Description:SCREW LOCKING 3. 5 X 16 Plate Olecranon 8h L 114mm Implanted:Qty: 1 on 10/16/2022 by Delmer Sheth MD at [facility] Left: Arm [id number] / / Description:PLATE OLECRANON 8H L 114MM Plate Strength 2.4mm 10 Hole Implanted:Qty: 1 on 10/16/2022 by Delmer Sheth MD at [facility] Left: Arm [id number] / / Description:PLATE STRENGTH 2 .4MM 10 HOLE Screw Locking 2.4 X 14 Implanted:Qty: 1 on 10/16/2022 by Delmer Sheth MD at [facility] Left: Arm [id number] / / Screw Locking 2.4 X 15 Implanted:Qty: 1 on 10/16/2022 by Delmer Sheth MD at [facility] Left: Arm [id number] / / Description:SCREW LOCKING 2. 4 X 15 Screw Locking 2.4 X 16 Implanted:Qty: 2 on 10/16/2022 by Delmer Sheth MD at [facility] Left: Arm [id number] / / Description:SCREW LOCKING 2. 4 X 16 Screw Cortex 2.7 X 16 Implanted:Qty: 1 on 10/16/2022 by Delmer Sheth MD at [facility] Left: Arm [id number] / / Description:SCREW CORTEX 2.7 X 16 Head Elbow Od22 Id12 Explor - [id number] Implanted:Qty: 1 on 10/16/2022 by Delmer Sheth MD at [facility] Left: Arm [employer] 06/30/2032 / / [id number] Stem Elbow 7x26mm Explor - [id number] Implanted:Qty: 1 on 10/16/2022 by Delmer Sheth MD at [facility] Left: Arm [employer] 09/08/2032 / / [id number] Screw 2.0 X 18 Implanted:Qty: 1 on 10/16/2022 by Delmer Sheth MD at [facility] Left: Arm [id number] / / Description:SCREW 2.0 X 18 Screw Bone 3.5x13mm Evos Small Cortex Slf Tppng - [id number] Implanted:Qty: 3 on 10/16/2022 by Delmer Sheth MD at [facility] Left: Arm [employer] [id number] / / Screw Bone 3.5x16mm Evos Small Cortex Slf Tppng - [id number] Implanted:Qty: 1 on 10/16/2022 by Delmer Sheth MD at [facility] Left: Arm [employer] [id number] / / Screw Locking 2.7 X 18 Implanted:Qty: 3 on 10/16/2022 by Delmer Sheth MD at [facility] Left: Arm [id number] / / Screw Locking 2.7 X 36 Implanted:Qty: 1 on 10/16/2022 by Delmer Sheth MD at [facility] Left: Arm [id number] / / Description:SCREW LOCKING 2. 7 X 36 Bone Matrix 5cc [employer] Dbm - [id number] Implanted:Qty: 1 on 11/07/2022 by Delmer Sheth MD at [facility] Right: Arm [employer] 02/13/2025 [id number] / [id number] / Plate Strength 2.4mm 20 Hole Implanted:Qty: 1 on 11/07/2022 by Delmer Sheth MD at [facility] Right: Arm [id number] / / Description:PLATE STRENGTH 2 .4MM 20 HOLE Screw Locking 2.4 X 10 Implanted:Qty: 3 on 11/07/2022 by Delmer Sheth MD at [facility] Right: Arm [id number] / / Description:SCREW LOCKING 2. 4 X 10 Screw Locking 2.4 X 11 Implanted:Qty: 1 on 11/07/2022 by Delmer Sheth MD at [facility] Right: Arm [id number] / / Description:SCREW LOCKING 2. 4 X 11 Screw Locking 2.4 X 12 Implanted:Qty: 1 on 11/07/2022 by Delmer Sheth MD at [facility] Right: Arm [id number] / / Description:SCREW LOCKING 2. 4 X 12 Screw Cortex 2.4 X 10 Implanted:Qty: 1 on 11/07/2022 by Delmer Sheth MD at [facility] Right: Arm [id number] / / Description:SCREW CORTEX 2.4 X 10 Screw Cortex 2.4 X 12 Implanted:Qty: 1 on 11/07/2022 by Delmer Sheth MD at [facility] Right: [facility] [id number] / / Description:SCREW CORTEX 2.4 X 12 Screw Bone 3.5x11mm Evos Small Cortex Slf Tppng - [id number] Implanted:Qty: 1 on 11/07/2022 by Delmer Sheth MD at [facility] Right: Arm [employer] [id number] / / Screw Bone 3.5x12mm Evos Small Cortex Slf Tppng - [id number] Implanted:Qty: 3 on 11/07/2022 by Delmer Sheth MD at [facility] Right: Arm [employer] [id number] / / Screw Bone 3.5x13mm Evos Small Cortex Slf Tppng - [id number] Implanted:Qty: 2 on 11/07/2022 by Delmer Sheth MD at [facility] Right: Arm [employer] [id number] / / Screw Bone 3.5x15mm Evos Small Cortex Slf Tppng Implanted:Qty: 1 on 11/07/2022 by Delmer Sheth MD at [facility] Right: Arm [id number] / / Description:SCREW BONE 3.5X1 5MM EVOS SMALL CORTEX SLF TPPNG Screw Bone 3.5x13mm Evos Locks-T - [id number] Implanted:Qty: 1 on 11/07/2022 by Delmer Sheth MD at [facility] Right: Arm [employer] [id number] / / Screw Bone 3.5x12mm Evos Locks-T Implanted:Qty: 4 on 11/07/2022 by Delmer Sheth MD at [facility] Right: Arm [id number] / / Description:Screw Bone 3.5x1 2mm Evos Locks-T Plate Locking Compression 3.5mm 8h 93mm Implanted:Qty: 1 on 11/07/2022 by Delmer Sheth MD at [facility] Right: Arm [id number] / / Description:PLATE LOCKING CO MPRESSION 3.5MM 8H 93MM Plate Radial Shaft 12h 146mm Implanted:Qty: 1 on 11/07/2022 by Delmer Sheth MD at [facility] Right: Arm [id number] / / Description:PLATE RADIAL SHA FT 12H 146MM Nail Intertan 22nui15lm 125 Deg - [id number] Implanted:Qty: 1 on 03/23/2024 by Gigi Arreaga MD at [facility] Left: Hip [employer] 08/09/2033 [id number] / / [id number] Description:CHECKED DANIELLE Newman .................... 03/24/2024 9:31 AM Kit Bone Screw 95/90mm Comp Lag - [id number] Implanted:Qty: 1 on 03/23/2024 by Gigi Arreaga MD at [facility] Left: Hip [employer] 11/03/2033 [id number] / / [id number] Description:CHECKED DANIELLE Newman .................... 03/24/2024 9:31 AM Screw Bone 5.0x27.5mm Trigen Donald Low Profile Titnm - [id number] Implanted:Qty: 1 on 03/23/2024 by Gigi Arreaga MD at [facility] Left: Hip [employer] 08/24/2033 [id number] / / [id number] Description:CHECKED DANIELLE Newman .................... 03/24/2024 9:31 AM Explanted Type Area Laundry Aide Device Identifier Shelf Expiration Date Model / Serial / Lot K Wire Fix 150x1.6mm For Alysa-Loc - [id number] Explanted:Qty: 2 on 10/16/2022 at [facility] Left: Arm [employer] [id number] / / Explant Explanted:Qty: 1 on 11/07/2022 at [facility] Right: Arm Description:ULNA 1 PLATE 6 S CREWS, RADIUS 1 PLATE 6 SCREWS Procedures Procedure Name Priority Date/Time Associated Diagnosis Comments XR HIP 1 VIEW W PELVIS LEFT Routine 06/24/2024 11:55 AM 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 S/p Cephalomedullary nailing left hip 03/23/24 Dr. Gigi Arreaga XR SHOULDER 3 VIEWS RIGHT Routine 06/18/2024 2:06 PM 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 Acute pain of right shoulder SCAN-LABORATORY REPORT 06/10/2024 12:00 AM 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 XR HIP 2 OR 3 VIEWS W PELVIS LEFT Routine 05/05/2024 4:05 PM 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 s/p left femur intramedullary girma insertion DOS 03/23/24 by Yecenia Thrasher* XR FEMUR 2 VIEWS LEFT Routine 05/05/2024 4:04 PM 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 s/p left femur intramedullary girma insertion DOS 03/23/24 by Yecenia Thrasher* ARIPIPRAZOLE (ABILIFY) Routine 04/14/2024 7:57 AM 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 Other exterminator termite (current) drug therapy RED CELL MORPHOLOGY Routine 04/07/2024 8 :05 AM 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 Anemia, unspecified Acute on chronic systolic (congestive) heart failure (HC) PLATELET ESTIMATE Routine 04/07/2024 8:0 5 AM 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 Anemia, unspecified Acute on chronic systolic (congestive) heart failure (HC) MANUAL DIFFERENTIAL Routine 04/07/2024 8 :05 AM 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 Anemia, unspecified Acute on chronic systolic (congestive) heart failure (HC) CBC WITH AUTO DIFFERENTIAL Routine 04/07/2024 8:05 AM 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 Anemia, unspecified Acute on chronic systolic (congestive) heart failure (HC) BASIC METABOLIC PANEL Routine 04/07/2024 8:05 AM 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 Anemia, unspecified Acute on chronic systolic (congestive) heart failure (HC) CBC WITH AUTO DIFFERENTIAL Routine 04/07/2024 8:05 AM 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 Anemia, unspecified Acute on chronic systolic (congestive) [...] SDNA-FIT EXTERNAL (COLOGUARD) Routine 06/05/2022 7:37 AM 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 Screening for colon cancer ANTI HCV Routine 05/30/2021 10:19 AM 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 Need for hepatitis C screening test from Last 3 Months or Most Recently Relevant to Health Maintenance Results * XR HIP 1 VIEW W PELVIS LEFT (06/24/2024 11:55 AM 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) Anatomical Region Laterality Modality HIPS, HIPL, Pelvis Digital Radio graphy Impressions 06/25/2024 1:16 PM 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 As noted in findings above. Reading services were personally performed by Brody Chicas MD, documentation performed by Alicia Rodriguez CMA, INFECTION CONTROL PRACTITIONER based on my observation of services performed and provider statements to me. Brody Chicas MD 06/24/2024 Narrative 06/25/2024 1:16 PM 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 For Patients: As a result of the Cures Act, medical imaging exams and procedure reports are released immediately into your electronic medical record. You may view this report before your referring provider. If you have questions, please contact your health care provider. This radiology exam was performed at the [facility] in [place] and interpreted by Brody Chicas MD. HISTORY: [...] SHOULDER 3 VIEWS RIGHT (06/18/2024 2:06 PM 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) Anatomical Region Laterality Modality SHOULDERS, SHOULDER R Computed R adiography 06/19/2024 2:19 PM 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 Impressions 06/19/2024 2:19 PM 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 1. No acute abnormality. 2. Advanced glenohumeral joint osteoarthritis. Dictated by Deion Lewis MD @ 06/19/2024 2:19:07 PM (Electronically Signed) Narrative 06/19/2024 2:19 PM 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 For Patients: As a result of [...] Result * SCAN-LABORATORY REPORT (06/10/2024 12:00 AM 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) us Scanner OTHER Final Result * XR HIP 2 OR 3 VIEWS W PELVIS LEFT (05/05/2024 4:05 PM 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) Anatomical Region Laterality Modality HIPS, HIPL, Pelvis Digital Radio graphy 05/07/2024 8:14 AM 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 Narrative 05/07/2024 8:14 AM 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 For Patients: As a result of [...] FEMUR 2 VIEWS LEFT (05/05/2024 4:04 PM 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) Anatomical Region Laterality Modality FEMURS, FEMUR L Digital Radiogra phy 05/07/2024 8:13 AM 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 Narrative 05/07/2024 8:13 AM 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 For Patients: As a result of [...] lt * ARIPIPRAZOLE (ABILIFY) (04/14/2024 7:57 AM 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) Pathologist [facility] ARIPIPRAZOLE 431.6 ng/mL 04/20/2024 11:53 AM 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 [employer] Comment: Expected steady state plasma levels in patients receiving recommended daily dosages: 109.0-585.0 ng/mL This test was developed and its performance characteristics determined by [employer]. It has not been cleared or approved by the Food and Drug Administration. Blood BLOOD SPECIMEN / Unknown Venipuncture / Unknown 04/14/2024 7:57 AM 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 04/14/2024 9:33 AM 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 us Abdirahman Vaughn MD SEND OUTS Final Result Performing Organization Address [facility]/State/[facility] Co de Phone Number [facility] [address] [place] [address], * (ABNORMAL) CBC WITH AUTO DIFFERENTIAL (04/07/2024 8:05 AM 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) Pathologist [facility] WHITE BLOOD COUNT 4.4(L) 4.5 - 11.0 thou/cu mm 04/07/2024 10:48 AM [facility] RED BLOOD COUNT 3.51(L) 4.00 - 5.20 mil/cu mm 04/07/2024 10:48 AM [facility] HEMOGLOBIN 9.9(L) 12.0 - 16.0 g/dL 04/07/2024 10:48 AM [facility] HEMATOCRIT 32.5(L) 33.0 - 51.0 % 04/07/2024 10:48 AM [facility] MCV 93 80 - 100 fL 04/07/2024 10:48 AM [facility] MCH 28.2 26.0 - 34.0 pg 04/07/2024 10:48 AM [facility] MCHC 30.5(L) 32.0 - 36.0 g/dL 04/07/2024 10:48 AM [facility] RDW 14.7 11.5 - 15.5 % 04/07/2024 10:48 AM [facility] PLATELET COUNT 357 140 - 440 thou/cu mm 04/07/2024 10:48 AM [facility] MPV 10.4 6.5 - 11.0 fL 04/07/2024 10:48 AM [facility] Blood BLOOD SPECIMEN / Unknown Butterfly / Unknown 04/07/2024 8:05 AM 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 04/07/2024 9:28 AM 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 Abdirahman Vaughn MD HEMATOLOGY Final Result Performing Organization Address City/[facility]/ZIP Co de Phone Number [facility] [address] [place] [address] * (ABNORMAL) RED CELL MORPHOLOGY (04/07/2024 8:05 AM 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) ELLIPTOCYTES Few 04/07/2024 10:48 AM [facility] RBC COMMENT Present(A ) RBC morphology appears normal, RBC morphology within normal limits for newborns. 04/07/2024 10:48 AM [facility] Blood BLOOD SPECIMEN / Unknown Butterfly / Unknown 04/07/2024 8:05 AM 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 04/07/2024 9:28 AM 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 Abdirahman Vaughn MD HEMATOLOGY Final Result Performing Organization Address [facility]/ZIP Co de Phone Number [facility] [address] [place] [address] * PLATELET ESTIMATE (04/07/2024 8:05 AM 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) PLATELET ESTIMATE Adequate Adequate, No estimate 04/07/2024 10:48 AM [facility] Blood BLOOD SPECIMEN / Unknown Butterfly / Unknown 04/07/2024 8:05 AM 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 04/07/2024 9:28 AM 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 Abdirahman Vaughn MD HEMATOLOGY Final Result [facility] [address] [place] [address] * MANUAL DIFFERENTIAL (04/07/2024 8:05 AM 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) % NEUTROPHILS 65.0 % 04/07/2024 10:48 AM [facility] % LYMPHOCYTES 27.0 % 04/07/2024 10:48 AM [facility] % MONOCYTES 8.0 % 04/07/2024 10:48 AM [facility] % EOSINOPHILS 0.0 % 04/07/2024 10:48 AM [facility] % BASOPHILS 0.0 % 04/07/2024 10:48 AM [facility] NEUTROPHILS ABSOLUTE 2.9 1.7 - 7.0 thou/cu mm 04/07/2024 10:48 AM [facility] LYMPHOCYTES ABSOLUTE 1.2 0.9 - 2.9 thou/cu mm 04/07/2024 10:48 AM [facility] MONOCYTES ABSOLUTE 0.4 <0.9 thou/cu mm 04/07/2024 10:48 AM [facility] EOSINOPHILS ABSOLUTE 0.0 <0.5 thou/cu mm 04/07/2024 10:48 AM [facility] BASOPHILS ABSOLUTE 0.0 <0.3 thou/cu mm 04/07/2024 10:48 AM [facility] Blood BLOOD SPECIMEN / Unknown Butterfly / Unknown 04/07/2024 8:05 AM 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 04/07/2024 9:28 AM 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 us Abdirahman Vaughn MD HEMATOLOGY Final Result [facility] [address] [place] [address] * (ABNORMAL) BASIC METABOLIC PANEL (04/07/2024 8:05 AM 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) SODIUM 141 136 - 145 mmol/L 04/07/2024 10:50 AM [facility] POTASSIUM 3.8 3.5 - 5.1 mmol/L 04/07/2024 10:50 AM [facility] CHLORIDE 102 98 - 107 mmol/L 04/07/2024 10:50 AM [facility] CO2,TOTAL 27 22 - 29 mmol/L 04/07/2024 10:50 AM [facility] ANION GAP 12 5 - 18 04/07/2024 10:50 AM [facility] GLUCOSE 106(H) 70 - 99 mg/dL 04/07/2024 10:50 AM [facility] CALCIUM 9.3 8.8 - 10.4 mg/dL 04/07/2024 10:50 AM [facility] Comment: Reference ranges for this test were updated on 03/03/2024 to reflect our healthy population more accurately. Reference range changes are not retroactively applied to results, but previous results using the same methodology can be interpreted in the context of the new reference range. BUN 12 8 - 23 mg/dL 04/07/2024 10:50 AM [facility] CREATININE 0.64 0.50 - 0.90 mg/dL 04/07/2024 10:50 AM [facility] BUN/CREAT RATIO 19 10 - 20 10:50 AM [facility] eGFR >90 >90 mL/min/1. 73m2 04/07/2024 10:50 AM [facility] Comment:As of 2021, eG FR is calculated by the CKD-EPI creatinine equation without race adjustment. eGFR can be influenced by muscle mass, exercise, and diet. The reported eGFR is an estimation only and is only applicable if the renal function is stable. Blood BLOOD SPECIMEN / Unknown Butterfly / Unknown 04/07/2024 8:05 AM 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 04/07/2024 9:28 AM 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 us Abdirahman Vaughn MD CHEMISTRY Final Result [facility] [address] [facility] [place] [address] * (ABNORMAL) XR DXA BONE DENSITY 2 [...] recommended in 3-5 years. Arabella Armijo PA-C [facility] 01/21/2024 Narrative 01/21/2024 1:16 PM CDT For Patients: Results are automatically released to your [facility]) account once available, in compliance with federal regulations. This means that you may see your results before your provider has had a chance to review them. Please allow 2-3 business days for your provider to comment on the results. XR DXA Bone Mineral Density (BMD) EXAM LOCATION: [address] [address] PATIENT NAME: Sarah Reyes DATE OF : [...] two scanners are made by the same reverser. PROCEDURE: Dual-energy x-ray absorptiometry performed with routine [...] care provider. XR MAMMO RAFAT BILAT SCREEN [[id number]] CLINICAL HISTORY: This is an asymptomatic 68 y.o. patient. INDICATION FOR EXAM: Mammogram Screening. TECHNIQUE: CC & MLO views were obtained. This study was evaluated with the assistance of Computer-Aided Detection. Breast Tomosynthesis was used in interpretation. COMPARISON FILM: Yes 08/20/22 [facility] 04/07/21 [facility] FINDINGS: There are scattered areas of fibroglandular density. There are no dominant masses, suspicious micro calcifications or areas of architectural distortion. us Yecenia Thrasher MD MAMMO Final Result * LIPID PANEL W REFLEX MEASURED LDL (01/09/2024 1:50 PM CDT) CHOLESTEROL,TOTAL 123 100 - 199 mg/dL 01/10/2024 4:18 AM CDT [facility] Comment: Cholesterol, Total Reference Ranges Desirable <200 mg/dL Borderline 200-239 mg/dL High >=240 mg/dL TRIGLYCERIDES 88 <150 mg/dL 01/10/2024 4:18 AM CDT [facility] HDL CHOLESTEROL 68 >40 mg/dL 4:18 AM CDT [facility] NON-HDL CHOLESTEROL 55 <145 mg/dl 01/10/2024 4:18 AM CDT [facility] CHOL/HDL RATIO 1.81 <4.50 01/10/2024 4:18 AM CDT [facility] LDL CHOLESTEROL 37 <=130 mg/dL 01/10/2024 4:18 AM CDT [facility] VLDL CHOLESTEROL 18 <=30 mg/dL 01/10/2024 4:18 AM CDT [facility] PROVIDER ORDERED STATUS RANDOM 01/10/2024 4:18 AM CDT [facility] Blood BLOOD SPECIMEN / Unknown Venipuncture / Unknown 01/09/2024 1:50 PM CDT 01/09/2024 1:50 PM CDT Yecenia Thrasher MD CHEMISTRY Final Result [facility] [address] [place] [address], [place] * SDNA-FIT EXTERNAL (COLOGUARD) (06/05/2022 7:37 AM 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) NONINV COLON CA DNA+OCC BLD SCRN STL-IMP Negative Negative 06/12/2022 11:42 PM 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 [facility] (CLIA #:[id number]) Comment: NEGATIVE TEST RESULT. A negative Cologuard [...] Byrd et al, N Engl J Med 2014;370(14):0498-5178) The normal value (reference range) for this assay is negative. COLOGUARD RE-SCREENING RECOMMENDATION: Periodic colorectal cancer screening is an important part of preventive healthcare for asymptomatic individuals at average risk for colorectal cancer. Following a negative Cologuard result, the [place] [employer] and U.S. Multi-Society Task Force screening guidelines recommend a Cologuard re-screening interval of 3 years. References: [place] [employer] Guideline for Colorectal Cancer Screening: https://www.cancer.org/cancer/uzgzz-yezoun-gfwhnt/hvkyqjpcm-sapbibyuk-ixbcddy/ac s-rec ommendations.html.; Ayaan DK, Radha CR, Jacob ElkinsK, Colorectal Cancer Screening: Recommendations for Physicians and Patients from the U.S. Multi-Society Task Force on Colorectal Cancer Screening , Am J Gastroenterology 2017; 112:3944-7611. TEST DESCRIPTION: Composite algorithmic analysis of stool [...] (Clyde Ahuja al, N Engl J Med 2014;370(14):0115-3968.) Cologuard may produce a false negative or false positive result (no colorectal cancer or precancerous polyp present at colonoscopy follow up). A negative Cologuard test result does not guarantee the absence of CRC or advanced adenoma (pre-cancer). The current Cologuard screening interval is every 3 years. ([place] [employer] and U.S. Multi-Society Task Force). Cologuard performance data in a 10,000 patient pivotal study using colonoscopy as the reference method can be accessed at the following location: [email or web address]/results. Additional description of the Cologuard test process, warnings and precautions can be found at www.[employer]. Stool specimen (specimen) (Rectum) 06/05/2022 7:37 AM 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 06/06/2022 12:39 PM 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 us Yecenia Thrasher MD URINE Final Result [facility] (CLIA #:[id number]) [place] [address], * ANTI HCV (05/30/2021 10:19 AM 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) HEPATITIS C ANTIBODY Non-React armida Non-React armida 05/30/2021 6:36 PM 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 [facility] Comment:Antibodies to HCV no t detected; does not exclude the possibility of exposure to HCV. Blood BLOOD SPECIMEN / Unknown Venipuncture / Unknown 05/30/2021 10:19 AM 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 05/30/2021 10:19 AM 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 us Yecenia Thrasher MD SEND OUTS Final Result [facility] [address] [place] [address], [place] from Last 3 Months or Most Recently Relevant to Health Maintenance Insurance MEDICARE PB ONLY MEDICAID MEDICARE PART B HB ONLY MEDICARE PART A HB ONLY MEDICARE PPS MEDICAID Advance Directives Documents on File Type Date Recorded Patient Cushion Assembler Expl anation POLST 10/23/2022 Healthcare Directive 05/24/2021 [...] Code Status Discussion: Reviewed Preferences Care Teams Town Manager Relationship Specialty Start Date End Date Yecenia Thrasher MD [address] [place] [address] PCP - General Family Practice 04/07/21 [facility] [address] [place] [address] 05/21/24
--- NOTE | 2024-07-02 20:02 | ED.LOWEXIN ---
HPI - Extremity Injury (Lower) General Chief Complaint: Extremity Pain/Injury, Lower Stated Complaint: Leg pain Time Seen by Provider: 07/02/24 18:45 History of Present Illness HPI Narrative: This 69-year-old female comes in reporting pain in her left upper leg. She states that she was ambulating into the dining room area and her leg gave out and she almost fell. She then sat for her meal and now has a report of pain on the lateral aspect of her left upper leg. She does not report any pain at rest but has difficulty raising her leg with pain along the lateral aspect of her left upper leg. She does not report any other injury. She stated that many months ago she had another episode where her legs seem to give out. She has had a hip replacement surgery of the left hip. Related Data Home Medications ?Medication ?Instructions ?Recorded ?Confirmed albuterol sulfate 90 mcg/actuation 2 puff inhalation QID PRN 10/11/22 12/22/23 aerosol inhaler ammonium lactate 12 % topical cream 1 applic topical BID 10/11/22 12/22/23 aripiprazole 10 mg tablet 10 mg PO HS 10/11/22 12/22/23 aripiprazole 400 mg intramuscular 400 mg IM Q3W 10/11/22 12/22/23 suspension,extended release (Abilify Maintena) atorvastatin 20 mg tablet 20 mg PO HS 10/11/22 12/22/23 cholecalciferol (vitamin D3) 125 5,000 unit PO DAILY 10/11/22 12/22/23 mcg (5,000 unit) tablet citalopram 20 mg tablet 20 mg PO DAILY 10/11/22 12/22/23 docusate sodium 100 mg capsule 200 mg PO BID PRN 10/11/22 12/22/23 furosemide 40 mg tablet 20 mg PO BID 10/11/22 12/22/23 lisinopril 2.5 mg tablet 2.5 mg PO DAILY 10/11/22 12/22/23 metoprolol succinate 25 mg 25 mg PO DAILY 10/11/22 12/22/23 tablet,extended release 24 hr oxybutynin chloride 10 mg 10 mg PO DAILY 10/11/22 12/22/23 tablet,extended release 24 hr pantoprazole 40 mg tablet,delayed 40 mg PO DAILY 10/11/22 12/22/23 release trazodone 50 mg tablet 50 mg PO HS 10/11/22 12/22/23 acetaminophen 500 mg capsule 1,000 mg PO Q6H PRN 11/20/23 12/22/23 fluticasone furoate 100 1 inh inhalation DAILY 11/20/23 12/22/23 mcg-vilanterol 25 mcg/dose inhalation powder (Breo Ellipta) clozapine 25 mg tablet 75 mg PO HS 12/22/23 12/22/23 diltiazem HCl 60 mg 60 mg PO BID 12/22/23 12/22/23 capsule,extended release 12 hr psyllium husk 2.6 gram/4.1 gram 1 tbsp PO DAILY 12/22/23 12/22/23 oral powder Previous Rx's ?Medication ?Instructions ?Recorded azithromycin 250 mg tablet 250 mg PO Q24H #3 tabs 12/23/23 Allergies Allergy/AdvReac Type Severity Reaction Status Date / Time No Known Drug Allergies Allergy Verified 12/22/23 10:53 Review of Systems Status of ROS: Reports: 10 or more systems reviewed and unremarkable except as noted in History and below Narrative: Constitutional: No fevers, no weight gain or loss. Eyes: No discharge. No vision changes. HENT: No congestion, no sore throat, no ear pain. Cardiovascular: No chest pain, no palpitations. Respiratory: No shortness of breath, no wheezes, no cough. Gastrointestinal: No abdominal pain, no vomiting, no diarrhea. Genitourinary: No dysuria, no hematuria. Musculoskeletal: Left leg pain as described above. Skin: No rashes, no pruritis. Neurological: No dizziness, weakness, sensory change, speech change. Endo/Heme/Allergies: No bruising or bleeding. No polydipsia. Pysch: no suicidality, no anxiety, no insomnia. All other systems reviewed and are negative. [facility] Medical History (Updated 07/02/24 @ 21:34 by Ryan Casey MD) Hypertension ?I10 - Essential (primary) hypertension (ICD-10) Anemia ?D64.9 - Anemia, unspecified (ICD-10) Type 2 diabetes mellitus ?E11.9 - Type 2 diabetes mellitus without complications (ICD-10) Fracture of forearm, right, open ?S52.91XB - Unspecified fracture of right forearm, initial encounter for open fracture type I or II (ICD-10) Monteggia's fracture of left ulna ?S52.272A - Monteggia's fracture of left ulna, initial encounter for closed fracture (ICD-10) Insomnia ?G47.00 - Insomnia, unspecified (ICD-10) History of lung cancer ?Z85.118 - Personal history of other malignant neoplasm of bronchus and lung (ICD-10) Asthma ?J45.909 - Unspecified asthma, uncomplicated (ICD-10) Schizophrenia ?F20.9 - Schizophrenia, unspecified (ICD-10) Surgical History (Updated 12/22/23 @ 12:23 by Sonia Mckeon MD) H/O pneumonectomy ?Z98.890 - Other specified postprocedural states (ICD-10) ?Z90.2 - Acquired absence of lung [part of] (ICD-10) History of open reduction and internal fixation (ORIF) procedure (10/16/22) ?Z98.890 - Other specified postprocedural states (ICD-10) History of open reduction and internal fixation (ORIF) procedure (10/10/22) ?Z98.890 - Other specified postprocedural states (ICD-10) Social History (Updated 12/22/23 @ 14:18 by Sonia Mckeon MD) Narrative: Lives at [facility] in [place]. Sister Naomi is guardian and medical decision maker. Former smoker, no ETOH. Requests Full Code Status. What is your current living situation?: I presently have a place to live Problems where you live: no known problems Problems where you live details: NA In the past 12 months, utilities in danger of being shut off: no In past 12 months, lack of transportation kept you from medical appts, meetings, work, or getting things needed for daily living: yes In the past 12 mos, have been you worried that your food would run out before you had money to buy more?: never true In the past 12 mos, the food you bought just didn't last and you didn't have money to buy more?: never true Highest level of school completed/degree received: high school graduate Smoking Status: Former smoker Do you use any of these nicotine containing products: None How often do you have a drink containing alcohol: never AUDIT-C Alcohol total score: 0 Non-prescribed substance use: over the counter (eg: immodium) Non-prescribed substance use details: Tylenol as needed Caffeine: Yes How often does anyone, including family, friends and others, physically hurt you: never How often does anyone, including family, friends and others, insult or talk down to you: never How often does anyone, including family, friends and others, threaten you with harm: never How often does anyone, including family, friends and others, scream or curse at you: never service: No Health Related Social Needs: transportation insecurity (Z59.82) Exam Narrative: Exam Narrative: Constitutional: Well-developed, well-nourished, no acute distress. HEENT: Normocephalic, atraumatic. Neck: Normal range of motion. Nontender. Supple. Heart: Regular. No murmurs. Normal rate. Intact distal pulses. Lungs: Clear to auscultation. No chest discomfort. No wheezes, rhonchi, or rales. Abdomen: Normal bowel sounds. Nontender. No rebound tenderness. Genitalia: Deferred. Back: No midline tenderness. Normal range of motion. Extremities: No pain when log-rolling her left leg. No tenderness when stressing her pelvis. No external sign of injury. Diffuse pain is reported along the lateral aspect of the left upper leg. She did not raise her leg up off the bed stating that she has weakness and it causes increased pain when doing so. Skin: Intact. No rash. Warm. No erythema or pallor. Neurologic: No altered sensation. No weakness. Alert and oriented. Psychiatric: No suicidality. No anxiety or depression. No insomnia. Nursing notes and vitals signs are reviewed. Const: Vital Signs, click to edit/add: Vital Signs - 24 hr 07/02/24 18:13 Temperature 97.1 F L Pulse Rate [Pulse Oximeter] 96 Respiratory Rate 20 Blood Pressure [Ri ght Upper Arm] 105/71 Pulse Oximetry 96 Oxygen Delivery Me thod Room Air Course Vital Signs Vital signs: Initial Vital Signs Temperature 97.1 F L 07/02/24 18:13 Temperature Source Temporal Artery Scan 07/02/24 18:13 Pulse Rate 96 07/02/24 18:13 Respiratory Rate 20 07/02/24 18:13 Blood Pressure 105/71 07/02/24 18:13 Blood Pressure Mean 82 07/02/24 18:13 Pulse Oximetry 96 07/02/24 18:13 Oxygen Delivery Method Room Air 07/02/24 18:13 Vital Signs Temperature 97.1 F L 07/02/24 18:13 Pulse Rate 96 07/02/24 18:13 Respiratory Rate 20 07/02/24 18:13 Blood Pressure 105/71 07/02/24 18:13 Pulse Oximetry 96 07/02/24 18:13 Oxygen Delivery Method Room Air 07/02/24 18:13 Temperature 97.1 F L 07/02/24 18:13 Pulse Rate 96 07/02/24 18:13 Respiratory Rate 20 07/02/24 18:13 Blood Pressure 105/71 07/02/24 18:13 Pulse Oximetry 96 07/02/24 18:13 Oxygen Delivery Method Room Air 07/02/24 18:13 MDM - Extremity Injury (Lower) MDM Narrative Medical decision making narrative: This patient comes in with an injury to her left hip and leg. X-ray imaging shows fracture of the prosthesis with angulation. I did contact the orthopedic physician's zoning assistant trail construction worker who stated that this will need to be transferred to a trauma center. I did contact [facility] and Dr. Francis agreed to take her as a transfer there to the emergency department for ongoing management care. The patient has an IV in place and labs are acquired. She did receive an IV dose of Dilaudid 0.3 mg. Imaging Data XR L Hip/Femur: Radiologist's impression: Acute comminuted left proximal femoral periprosthetic fracture, with significant varus angulation. There is fracture of the intramedullary nail, and of the inferior-most cephalomedullary screw. Subtle extension of a fracture line down the posterior femoral diaphysis. Bones are osteopenic. Moderate degenerative changes of the knee. Discharge Plan Discharge Clinical Impression: Hip fracture Patient Disposition: Xfer Other Condition: Unchanged Prescriptions: No Action albuterol sulfate 90 mcg/actuation HFA aerosol inhaler 2 puff inhalation QID PRN atorvastatin 20 mg tablet 20 mg PO HS ammonium lactate 12 % cream 1 applic topical BID citalopram 20 mg tablet 20 mg PO DAILY furosemide 40 mg tablet 20 mg PO BID lisinopril 2.5 mg tablet 2.5 mg PO DAILY trazodone 50 mg tablet 50 mg PO HS oxybutynin chloride 10 mg tablet extended release 24hr 10 mg PO DAILY pantoprazole 40 mg tablet,delayed release (DR/EC) 40 mg PO DAILY metoprolol succinate 25 mg tablet extended release 24 hr 25 mg PO DAILY cholecalciferol (vitamin D3) 125 mcg (5,000 unit) tablet 5,000 unit PO DAILY docusate sodium 100 mg capsule 200 mg PO BID PRN aripiprazole 10 mg tablet 10 mg PO HS Abilify Maintena 400 mg suspension,extended rel recon 400 mg IM Q3W fluticasone furoate-vilanterol [Breo Ellipta] 100-25 mcg/dose blister with device 1 inh inhalation DAILY acetaminophen 500 mg capsule 1,000 mg PO Q6H PRN clozapine 25 mg tablet 75 mg PO HS diltiazem HCl 60 mg capsule,extended release 12 hr 60 mg PO BID psyllium husk 2.6 gram/4.1 gram powder 1 tbsp PO DAILY Rx Instructions: mix into at least 8 oz of water or juice before administering azithromycin 250 mg Tablet 250 mg PO Q24H Qty: 3 0RF Taper: Z-LEX 250 mg Q24H for 3 Days and 0 Hour Rx Instructions: 3 more days to complete 5 day course, start on 12/23 Follow Up/Referrals: Yecenia Thrasher MD [Primary Care Provider] - Stand Alone Forms: [employer] Info Instructions
[2024-07-02 21:33] LABS: Hematocrit 33.4 % (33.0-51.0); Hemoglobin* 10.2 gm/dL (12.0-16.0); Immature Granulocytes Abs Auto 0.02 K/uL (0.00-0.30); Immature Granulocytes Pct Auto 0.3 %; Mean Corpuscular HGB Conc 31 gm/dL (32-36); Mean Corpuscular Hemoglobin 27 pg (26-34); Mean Corpuscular Volume 90 fL (80-100); Monocytes Percent Auto 6.2 % (0.0-11.0); Neutrophils Percent Auto 81.5 % (42.0-72.0); Platelet Count* 217 K/uL (140-440); Red Blood Count 3.73 m/uL (4.00-5.20); White Blood Count* 6.57 K/uL (4.50-11.00)
[2024-07-02 21:45] LABS: Chloride* 101 mmol/L (96-114); Potassium* 3.4 mmol/L (3.6-5.1); Sodium* 138 mmol/L (135-149)
[2024-07-02 21:48] LABS: Anion Gap 8 mEq/L (7-15); Blood Urea Nitrogen* 12 mg/dL (7-30); Carbon Dioxide* 29 mmol/L (20-32); Creatinine* 0.5 mg/dL (0.5-1.5); Estimated Glomerular Filt Rate 101 ml/min
[2024-07-02 21:49] LABS: Calcium* 8.8 mg/dL (8.4-10.6); Glucose* 119 mg/dL (60-115)
[2024-07-02 22:16] LABS: Slide Review Reflex No
--- NOTE | 2024-07-02 22:24 | ED.NURSE ---
Pt report given to [facility]. Pt should be transporting in 30 min to an hour.
--- NOTE | 2024-07-03 01:25 | ED.NURSE ---
Pt report was given to Geo RN - Charge nurse at [facility] or Comm Nurse.
== END 2024-07-02 22:36 | disposition other institution (70) ==
PROVIDERS: Emergency Provider Emergency Medicine Emergency Medical Services; PCP Family Medicine
DX: S72.8X2A Other fracture of left femur, initial encounter for closed fracture (principal); M97.02XA Periprosthetic fracture around internal prosthetic left hip joint, initial encounter; W18.39XA Other fall on same level, initial encounter; Y93.01 Activity, walking, marching and hiking; Y92.000 Kitchen of unspecified non-institutional (private) residence as the place of occurrence of the external cause
CPT/HCPCS: 36415; 72170; 73552; 80048; 85025; 96374; 99284; 99285

== ENCOUNTER 2024-07-02 22:34 | Outpatient (CLI) | payer MEDICARE, MEDICAID, SELFPAY | END 2024-07-02 22:35 | disposition home or self-care (01) | LOC: AMB 07-13 14:11 | PROVIDERS: PCP Family Medicine; Visit Provider Emergency Medicine Emergency Medical Services | DX: S72.002A Fracture of unspecified part of neck of left femur, initial encounter for closed fracture (principal) | CPT/HCPCS: A0425; A0429 ==

== ENCOUNTER 2024-07-22 12:46 | Outpatient (CLI) | payer MEDICARE, MEDICAID, SELFPAY ==
--- NOTE | 2024-07-22 13:45 | CRLHL7_ITS ---
For Patients: As a result of the 21st Century Cures Act, medical imaging exams and procedure reports are released immediately into your electronic medical record. You may view this report before your referring provider. If you have questions, please contact your health care provider. CLINICAL INDICATION: Right shoulder pain. Degenerative changes. COMPARISON IMAGING STUDIES: Right humeral radiographs from 10/10/2022. TECHNICAL: Non-contrast MRI of the right shoulder. Axial, sagittal oblique and coronal oblique T1, PD, PD FS, T2 and T2 FS images. 1.5 [facility] MR scanner. FINDINGS: GLENOHUMERAL JOINT: Effusion: Large joint effusion with extensive synovitis. Humeral Head Articular Cartilage: Severe deformity of the humeral head with diffuse full-thickness grade 4 cartilage loss and severe chronic articular surface remodeling. Glenoid Articular Cartilage: Diffuse full-thickness grade 4 cartilage loss. Estimated depth of central glenoid bone stock by MRI is approximately 16 millimeters. Alignment: Widening of the joint space superiorly in the setting of severe remodeling of the humeral head articular surface. Capsule: Diffuse capsular edema. The axillary pouch appears thickened and irregular. There is superior capsular attenuation. OSSEOUS STRUCTURES: Pronounced periarticular bone marrow edema about the glenohumeral joint throughout the included proximal humerus and scapula. There is also periarticular bone marrow edema about the AC joint. Prominent focus of cystic like change involving the greater tuberosity. CORACOACROMIAL ARCH: Acromial Morphology: Type 2 acromial morphology. No excessive lateral or anterior downward sloping of the acromion. No os acromiale. No significant subacromial spur. Lateral acromial thickness is 6 mm. Acromiohumeral Interval: At its narrowest, the interval measures 7 mm. There is thickening of the coracoacromial ligament. Coracohumeral Interval: At its narrowest, the coracohumeral interval measures 9 mm. Coracoid index is 10 mm. ACROMIOCLAVICULAR JOINT REGION: AC joint degenerative arthrosis. Coracoclavicular ligament intact. BURSAE: There is prominent subacromial-subdeltoid bursitis with synovitis throughout the bursa. ROTATOR CUFF TENDONS AND MUSCLES AND DELTOID: Supraspinatus and Infraspinatus: There is high-grade undersurface tearing of the distal supraspinatus tendon with the tendon is severely abnormal over an approximately 2.2 centimeter anterior/posterior by 1.9 centimeter medial/lateral extent. There may be a small area of full-thickness fenestration anteriorly. There is some edema involving the muscle. No significant muscle atrophy. Distal infraspinatus tendinosis with low-grade partial tearing and fraying. No infraspinatus muscle atrophy. Teres Minor: Teres minor muscle edema. No tear of the distal tendon. Subscapularis: Distal subscapularis tendinosis with fraying. There is some edema involving deep fibers of the subscapularis muscle. No significant muscle atrophy. Deltoid: No significant muscle atrophy. BICEPS TENDON, LONG HEAD: Tendinosis and partial tearing of the long head of biceps tendon. No dislocation of tendon from bicipital groove. Severe synovitis within its tendon sheath. GLENOID LABRUM: Extensive degenerative labral tearing. Superiorly labral tearing extends to involve the biceps anchor. OTHER FINDINGS: There is no abnormality within the suprascapular or spinoglenoid notches nor within the quadrilateral space. Increased number of small axillary lymph nodes. 9 millimeter retropectoral lymph node on image number 28 of series 4. IMPRESSION: 1. 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 Severe remodeling of the humeral head articular surface. Profound bone marrow edema involving the proximal humerus and scapula. Extensive synovitis with joint effusion, capsular edema and capsular thickening. Given the degree of bone marrow edema and soft tissue edema, coexisting inflammatory arthropathy or infection are not excluded. 2. High-grade partial-thickness undersurface supraspinatus tendon tearing and possibly a small area of full-thickness fenestration. No muscle atrophy. Distal infraspinatus and subscapularis tendinosis. 3. Partial tearing of the long head of the biceps tendon. Degenerative labral tearing extends to involve its anchor. Prominent synovitis of its tendon sheath. 4. AC joint degenerative arthrosis. 5. Subacromial-subdeltoid bursal inflammation. 6. Prominent nonspecific axillary and retropectoral lymph nodes. Dictated by Clayton Navarro MD @ 07/23/2024 7:29:28 AM (Electronically Signed)
== END 2024-07-22 12:47 | disposition home or self-care (01) ==
LOC: MRI 12:47
PROVIDERS: PCP Family Medicine; Visit Provider Family Medicine
DX: M25.511 Pain in right shoulder (principal); M19.011 Primary osteoarthritis, right shoulder; M65.911 Unspecified synovitis and tenosynovitis, right shoulder; M75.101 Unspecified rotator cuff tear or rupture of right shoulder, not specified as traumatic; M75.51 Bursitis of right shoulder
CPT/HCPCS: 73221

== ENCOUNTER 2025-01-08 11:36 | Emergency (ER) | payer MEDICARE, MEDICAID, SELFPAY ==
[2025-01-08 11:58] VITALS: BP 123/68; PULSE 83; RESP 18; TEMP 36.5; O2SAT 93; BMI 32.8
--- NOTE | 2025-01-08 12:06 | CRLHL7_ITS ---
For Patients: As a result of the Century Cures Act, medical imaging exams and procedure reports are released immediately into your electronic medical record. You may view this report before your referring provider. If you have questions, please contact your health care provider. Indication: Pain and swelling Technique: Three images of the left elbow were acquired Comparison: A prior study from October 14, 2022 Findings: As described below Impression: 1. Postoperative changes related to open reduction internal fixation of a proximal ulna fracture. There is also been resection of the radial head. A radial head prosthesis is noted. 2. The fixation plate associated with the ulnar fracture is fractured and displaced. At least 1 of the screws associated with this plan as also fractured and displaced. 3. A fracture is also noted through the proximal ulna adjacent to the level of the fractured compression plate. 4. The underlying osseous structures is somewhat irregular and osteomyelitis can not be entirely excluded. 5. Orthopedic consultation is advised Dictated by Ammon Silveira MD @ 01/08/2025 1:11:25 PM (Electronically Signed)
--- NOTE | 2025-01-08 12:18 | ED.GENADULT ---
HPI - General Adult General Chief complaint: Extremity Pain/Injury, Upper Stated complaint: L elbow pain, swelling Time Seen by Provider: 01/08/25 11:59 Source: patient and family Mode of arrival: ambulatory Limitations: no limitations History of Present Illness HPI narrative: 69-year-old female presents to the emergency department with a caregiver. She resides at [facility] and has had swelling and tenderness of her left elbow for the past 2 days. She has a history of a prior fracture in this area 2 years ago from a fall. She is underwent operative repair. She has not take any anticoagulants and have not noticed any new trauma. She does have a history of a prior fracture of the opposite arm and also of her femur last year and does rely on her elbows and arms to help move her around, more specifically this side because she has shoulder difficulties in the opposite side as well. Pain is mild, has not taken any specific medication for it but swelling is noted. Is not having any redness, there has been no drainage. She is not running any fever or exhibiting any behavior changes. Appetite has remained good. They have not noticed any other systemic changes. Past medical history notable for mental health disease, obesity, hypertension. Medication list reviewed. ROS is notable for the left elbow pain only, otherwise she denies any other generalized, musculoskeletal, neurological or skin changes. Related Data Home Medications ?Medication ?Instructions ?Recorded ?Confirmed albuterol sulfate 90 mcg/actuation 2 puff inhalation QID PRN 10/11/22 12/22/23 aerosol inhaler ammonium lactate 12 % topical cream 1 applic topical BID 10/11/22 12/22/23 aripiprazole 10 mg tablet 10 mg PO HS 10/11/22 12/22/23 aripiprazole 400 mg intramuscular 400 mg IM Q3W 10/11/22 12/22/23 suspension,extended release (Abilify Maintena) atorvastatin 20 mg tablet 20 mg PO HS 10/11/22 12/22/23 cholecalciferol (vitamin D3) 125 5,000 unit PO DAILY 10/11/22 12/22/23 mcg (5,000 unit) tablet citalopram 20 mg tablet 20 mg PO DAILY 10/11/22 12/22/23 docusate sodium 100 mg capsule 200 mg PO BID PRN 10/11/22 12/22/23 furosemide 40 mg tablet 20 mg PO BID 10/11/22 12/22/23 lisinopril 2.5 mg tablet 2.5 mg PO DAILY 10/11/22 12/22/23 metoprolol succinate 25 mg 25 mg PO DAILY 10/11/22 12/22/23 tablet,extended release 24 hr oxybutynin chloride 10 mg 10 mg PO DAILY 10/11/22 12/22/23 tablet,extended release 24 hr pantoprazole 40 mg tablet,delayed 40 mg PO DAILY 10/11/22 12/22/23 release trazodone 50 mg tablet 50 mg PO HS 10/11/22 12/22/23 acetaminophen 500 mg capsule 1,000 mg PO Q6H PRN 11/20/23 12/22/23 fluticasone furoate 100 1 inh inhalation DAILY 11/20/23 12/22/23 mcg-vilanterol 25 mcg/dose inhalation powder (Breo Ellipta) clozapine 25 mg tablet 75 mg PO HS 12/22/23 12/22/23 diltiazem HCl 60 mg 60 mg PO BID 12/22/23 12/22/23 capsule,extended release 12 hr psyllium husk 2.6 gram/4.1 gram 1 tbsp PO DAILY 12/22/23 12/22/23 oral powder Previous Rx's ?Medication ?Instructions ?Recorded azithromycin 250 mg tablet 250 mg PO Q24H #3 tabs 12/23/23 Allergies Allergy/AdvReac Type Severity Reaction Status Date / Time No Known Drug Allergies Allergy Verified 12/22/23 10:53 [facility] Medical History Hypertension ?I10 - Essential (primary) hypertension (ICD-10) Anemia ?D64.9 - Anemia, unspecified (ICD-10) Type 2 diabetes mellitus ?E11.9 - Type 2 diabetes mellitus without complications (ICD-10) Fracture of forearm, right, open ?S52.91XB - Unspecified fracture of right forearm, initial encounter for open fracture type I or II (ICD-10) Monteggia's fracture of left ulna ?S52.272A - Monteggia's fracture of left ulna, initial encounter for closed fracture (ICD-10) Insomnia ?G47.00 - Insomnia, unspecified (ICD-10) History of lung cancer ?Z85.118 - Personal history of other malignant neoplasm of bronchus and lung (ICD-10) Asthma ?J45.909 - Unspecified asthma, uncomplicated (ICD-10) Schizophrenia ?F20.9 - Schizophrenia, unspecified (ICD-10) Surgical History H/O pneumonectomy ?Z98.890 - Other specified postprocedural states (ICD-10) ?Z90.2 - Acquired absence of lung [part of] (ICD-10) History of open reduction and internal fixation (ORIF) procedure (10/16/22) ?Z98.890 - Other specified postprocedural states (ICD-10) History of open reduction and internal fixation (ORIF) procedure (10/10/22) ?Z98.890 - Other specified postprocedural states (ICD-10) Social History Narrative: Lives at [facility] in [place]. Sister Naomi is guardian and medical decision maker. Former smoker, no ETOH. Requests Full Code Status. What is your current living situation?: I presently have a place to live Problems where you live: no known problems Problems where you live details: NA In the past 12 months, utilities in danger of being shut off: no In past 12 months, lack of transportation kept you from medical appts, meetings, work, or getting things needed for daily living: yes In the past 12 mos, have been you worried that your food would run out before you had money to buy more?: never true In the past 12 mos, the food you bought just didn't last and you didn't have money to buy more?: never true Highest level of school completed/degree received: high school graduate Smoking Status: Former smoker Do you use any of these nicotine containing products: None How often do you have a drink containing alcohol: never AUDIT-C Alcohol total score: 0 Non-prescribed substance use: over the counter (eg: immodium) Non-prescribed substance use details: Tylenol as needed Caffeine: Yes How often does anyone, including family, friends and others, physically hurt you: never How often does anyone, including family, friends and others, insult or talk down to you: never How often does anyone, including family, friends and others, threaten you with harm: never How often does anyone, including family, friends and others, scream or curse at you: never service: No Health Related Social Needs: transportation insecurity (Z59.82) Exam Const: Vital Signs, click to edit/add: Vital Signs - 24 hr 01/08/25 11:58 01/08/25 14:57 Temperature 97.7 F Pulse Rate [Pulse Oximeter] 83 80 Respiratory Rate 18 16 Blood Pressure [Ri ght Upper Arm] 123/68 120/65 Pulse Oximetry 93 94 Oxygen Delivery Me thod Room Air Room Air Documenting provider has reviewed patient's vital signs: yes Common normals: no apparent distress General appearance: comfortable HENMT: Common normals: normocephalic and moist oral mucous membranes Head and scalp: normocephalic Eye: General eye: normal appearance of both eyes Resp: Common normals: normal respiratory effort Effort & inspection: able to speak in complete sentences Cardio: Other: Regular rate and rhythm with palpation in left radial pulse. Normal capillary refill. Extremity: Other: Left shoulder has normal range of motion though 4/5 strength only for the rotator cuff, consistent with her reported history on the side. Left elbow has postsurgical change and well-healed incision running along the dorsal medial elbow. There is soft tissue swelling directly under this area but no redness, warmth or fluctuant area noted. There is no tenderness over the olecranon or along the humeral condyles. The area of swelling is located only on the proximal ulna. The wrist and hand have normal range of motion with no tenderness, deformity or swelling. Psych: Appearance: grossly normal Attitude: engaged Insight: fair Judgement: fair Skin: Common normals: no rashes or lesions noted General skin exam: no rashes or lesions noted Course Course ED Course: 69-year-old female with swelling of the proximal ulna near prior surgical site from fracture. Differential diagnosis includes bursitis, soft tissue injury, contusion, infection, abscess, inflammatory conditions like gout or pseudogout. Based on patient's other mobility limitations I suspect that this is a soft tissue contusion and that she is using this part of her body to get up and help with mobility. Will obtain x-ray but order some really basic labs to look for infection and inflammatory markers. Await findings. Reevaluation(s) Reevaluation #1: Uptake: Very atypical looking x-ray noted. Was able to speak with Orthopedics from [facility] and images have been pushed there is well. This time, patient is minimally symptomatic. We do not know the duration of the hardware disruption. Honestly the bone looks so spongy, I suspect that the screws just simply pulled out of the hardware and that there was not any pick new major trauma. She is comfortable. She is willing to follow up outpatient which is what is the recommendation of the orthopedic provider. Does not recommend a splint or sling at this time. Patient is able to continue using it and use of her walker. They may want additional images and studies at the follow-up outpatient appointment. Number was given to arrange this and my a tech is working to make sure that appointment is arranged as I do think that doing that from her assisted living may not go smoothly. Orthopedics does think it is reasonable to discharge patient and she requests this as well. Outpatient follow-up with alarm symptoms that would warrant earlier ED referral reviewed. She verbalizes understanding and agreement. Vital Signs Vital signs: Initial Vital Signs Temperature 97.7 F 01/08/25 11:58 Temperature Source Temporal Artery Scan 01/08/25 11:58 Pulse Rate 83 01/08/25 11:58 Respiratory Rate 18 01/08/25 11:58 Blood Pressure 123/68 01/08/25 11:58 Blood Pressure Mean 86 01/08/25 11:58 Blood Pressure Position Sitting 01/08/25 11:58 Pulse Oximetry 93 01/08/25 11:58 Oxygen Delivery Method Room Air 01/08/25 11:58 Vital Signs Temperature 97.7 F 01/08/25 11:58 Pulse Rate 83 01/08/25 11:58 Respiratory Rate 18 01/08/25 11:58 Blood Pressure 123/68 01/08/25 11:58 Pulse Oximetry 93 01/08/25 11:58 Oxygen Delivery Method Room Air 01/08/25 11:58 Temperature 97.7 F 01/08/25 11:58 Pulse Rate 80 01/08/25 14:57 Respiratory Rate 16 01/08/25 14:57 Blood Pressure 120/65 01/08/25 14:57 Pulse Oximetry 94 01/08/25 14:57 Oxygen Delivery Method Room Air 01/08/25 14:57 Medical Decision Making Lab Data Lab results reviewed: Yes I reviewed the patient's lab results Lab results narrative: No signs of inflammatory or infectious etiology. Labs: Lab Results 01/08/25 Range/Units 12:27 WBC 4.00 L (4.50-11.00) K/uL RBC 3.78 L (4.00-5.20) m/uL Hgb 11.0 L (12.0-16.0) gm/dL Hct 35.2 (33.0-51.0) % MCV 93 (80-100) fL MCH 29 (26-34) pg MCHC 31 L (32-36) gm/dL RDW Coeff of Emily 13.5 (11.5-15.5) % Plt Count 195 (140-440) K/uL Neut % (Auto) 66.0 (42.0-72.0) % Lymph % (Auto) 25.5 (20-44) % [place] % (Auto) 8.0 (0.0-11.0) % Eos % (Auto) 0.0 (0.0-7.0) % Baso % (Auto) 0.5 (0.0-3.0) % Neut # (Auto) 2.60 (1.7-7.0) K/uL Lymph # (Auto) 1.00 (0.90-2.90) K/uL [place] # (Auto) 0.30 (0.00-0.90) K/UL Eos # (Auto) 0.00 (0.00-0.50) K/uL Baso # (Auto) 0.00 (0.00-0.30) K/uL Abs Immat Gran (auto) 0.00 (0.00-0.30) K/uL Imm/Tot Granulo (auto) 0.0 % Sodium 140 (135-149) mmol/L Potassium 4.1 (3.6-5.1) mmol/L Chloride 103 (96-114) mmol/L Carbon Dioxide 31 (20-32) mmol/L Anion Gap 6 L (7-15) mEq/L BUN 14 (7-30) mg/dL Creatinine 0.6 (0.5-1.5) mg/dL Estimated Creat Clear 43.92 Estimated GFR 97 ml/min Glucose 86 (60-115) mg/dL Uric Acid 4.3 (2.2-8.4) mg/dL Calcium 9.1 (8.4-10.6) mg/dL C-Reactive Protein 0.7 (0.5-1.0) mg/dL Imaging Data left elbow x-ray: Attestation: I have reviewed the pertinent imaging results. My impression: Very poor healing from prior fracture verses atypical appearing fracture of left elbow. Will consult Orthopedics. Radiologist's impression: Impression: 1. Postoperative changes related to open reduction internal fixation of a proximal ulna fracture. There is also been resection of the radial head. A radial head prosthesis is noted. 2. The fixation plate associated with the ulnar fracture is fractured and displaced. At least 1 of the screws associated with this plan as also fractured and displaced. 3. A fracture is also noted through the proximal ulna adjacent to the level of the fractured compression plate. 4. The underlying osseous structures is somewhat irregular and osteomyelitis can not be entirely excluded. 5. Orthopedic consultation is advised Dictated by Ammon Silveira MD @ 01/08/2025 1:11:25 PM Discharge Plan Discharge Clinical Impression: Elbow fracture, left Patient Disposition: Home w/ Parent or Adult Instructions: Elbow Fracture (DC) Additional Instructions: As we discussed, the hardware has, part from your old elbow fracture. Unfortunately, your bones did not heal very solidly and the screws have pulled out of the very spongy bone. Some mild tenderness would be expected. It is okay for you to continue using your walker. The patient centered care specialist did not recommend that I put you in a splint or a sling at this time. Our team is getting you an appointment to be seen by the orthopedic provider next week. We have sent are x-rays up there as well. This should help them plan what to do next. They will likely recommend some type of surgery. They will fill you in more on the details as this is a bit of a complicated fracture. In the meantime, it is okay for you to use Tylenol as needed for any pain. If you have sudden loss of function in the hand, severe swelling, severe pain that would not be expected in you should come back to the emergency room right away. Activity Level: Activity as Tolerated Discharge Diet: Regular Prescriptions: No Action albuterol sulfate 90 mcg/actuation HFA aerosol inhaler 2 puff inhalation QID PRN atorvastatin 20 mg tablet 20 mg PO HS ammonium lactate 12 % cream 1 applic topical BID citalopram 20 mg tablet 20 mg PO DAILY furosemide 40 mg tablet 20 mg PO BID lisinopril 2.5 mg tablet 2.5 mg PO DAILY trazodone 50 mg tablet 50 mg PO HS oxybutynin chloride 10 mg tablet extended release 24hr 10 mg PO DAILY pantoprazole 40 mg tablet,delayed release (DR/EC) 40 mg PO DAILY metoprolol succinate 25 mg tablet extended release 24 hr 25 mg PO DAILY cholecalciferol (vitamin D3) 125 mcg (5,000 unit) tablet 5,000 unit PO DAILY docusate sodium 100 mg capsule 200 mg PO BID PRN aripiprazole 10 mg tablet 10 mg PO HS Abilify Maintena 400 mg suspension,extended rel recon 400 mg IM Q3W fluticasone furoate-vilanterol [Breo Ellipta] 100-25 mcg/dose blister with device 1 inh inhalation DAILY acetaminophen 500 mg capsule 1,000 mg PO Q6H PRN clozapine 25 mg tablet 75 mg PO HS diltiazem HCl 60 mg capsule,extended release 12 hr 60 mg PO BID psyllium husk 2.6 gram/4.1 gram powder 1 tbsp PO DAILY Rx Instructions: mix into at least 8 oz of water or juice before administering azithromycin 250 mg Tablet 250 mg PO Q24H Qty: 3 0RF Taper: Z-LEX 250 mg Q24H for 3 Days and 0 Hour Rx Instructions: 3 more days to complete 5 day course, start on 12/23 Follow Up/Referrals: Yecenia Thrasher MD [Primary Care Provider, Family Practice] Stand Alone Forms: LDR Holding Info Instructions
--- OUTSIDE RECORDS SUMMARY | 2025-01-08 12:25 | XMS_ITS | CCD ---
Author Name Interface, [id number] lity Address [address] [place] [id number] [facility] Address [address] [place] [id number] Care Team Providers Care Spinning Frame Changer Name Role Phone Darcy BUSTOS, Ximena Giron Unavailable Allergies and Adverse Reactions Reason for Visit Medications Problems Social History
--- OUTSIDE RECORDS SUMMARY | 2025-01-08 12:25 | XMS_ITS | CCD ---
Author Name Interface, [id number] lity Address [address] [place] [id number] [facility] Address [address] [address] Care Team Providers Care Ic Engineer Name Role Phone Ximena Taveras MD Unavailable Unavailable Allergies and Adverse Reactions Medication/Group Name Reaction Severity Date No known allergies Reason for Visit Medications Date Name Route Dose Frequency Instructions Start Date End Date Status Fill Status Indication 2024 Psyllium Oral Powder active Problems Diagnosis Status Date of Diagnosis Resolution Date Schizophrenia Active History of cancer Active Skin problem Active Sleep apnea Active Asthma Active Internal hemorrhoids (disorder) Active Social History Date Name Value 12/26/2024 Sex Female
--- OUTSIDE RECORDS SUMMARY | 2025-01-08 12:25 | XMS_ITS | Clinical Summary ---
Author Organization [facility] Address [address] [place] [address] Care Team Providers Care Wire Inserter Name Role Phone Elsewhere, Pcp Primary Care Provider Unavailabl e Source Comments Patient records contain information from all sites at [facility]. For routine questions regarding patient records, call [phone] during business hours, M-F 8:00 AM - 5:00 PM Central Time. 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 Gender Identity Not on file Sexual Orientation [...] Health Maintenance Due Date Last Done Comments CT Colonography 1955 Diabetic Eye Exam 1955 Diabetic Office Visit with Foot Exam 1955 FIT 1955 Hepatitis C Screening 1955 Office Visit for Blood Pressure Check / Re-check 1955 Urine Albumin 1955 Zoster Vaccines (1 of 2) 2005 Depression Screening (Annual PHQ-2) 04/29/2024 Fall Risk Screen (Annual) 04/29/2024 COVID-19 Vaccine ( season) 2024 03/14/2023, 02/22/2022, 02/16/2021, Additional history exists Influenza Vaccine (#1) 2024 , 03/14/2023, 02/22/2022, Additional history exists Mammogram 01/13/2025 01/14/2024, 12/28, 08/20/2022, Additional history exists Hemoglobin A1C 03/31/2025 09/29/2024, 02/28, 03/14/2023, Additional history exists Cologuard 06/05/2025 06/05/2022 Creatinine Level (Kidney Function Test) 12/09/2025 12/09/2024, 12/07/2024, 08/11/2024, Additional history exists Potassium Level 12/09/2025 12/09/2024, 11/27, 08/11/2024, Additional history exists Sodium Level 12/09/2025 12/09/2024, 11/27, 08/11/2024, Additional history exists Lipid (Cholesterol) Screening 01/08/2029 01/09/2024, 09/18/2023, 05/25/2022, Additional history exists DTaP,Tdap,and Td Vaccines (2 - Td or Tdap) 10/10/2032 10/10/2022 Colonoscopy 01/25/2033 01/25/2023, 05/05/2021 Colorectal Cancer Screening 01/25/2033 Cervical/Vaginal Cancer Screening Discontinued 01/10/2021 Pneumococcal vaccine (50+ years) Completed 05/25/2022, 11/04/2020, 01/01/2015 Bone Density Scan (Osteoporosis Screen) Discontinued 01/14/2024 Glucose Test for Med Monitoring Discontinued 12/09/2024, 12/07/2024, 08/11/2024, Additional history exists IPV Vaccines Aged Out No longer eligi ble based on patient's age to complete this topic Procedures Procedure Name Priority Date/Time Associated Diagnosis Comments BASIC METABOLIC PANEL, S/P Routine 01/30/2023 7:10 AM CDT COLONOSCOPY Routine 01/25/2023 8:58 AM CDT from Last 3 Months or Most Recently Relevant to Health Maintenance Results * Colonoscopy (01/25/2023 8:58 AM CDT) 01/25/2023 8:58 AM CDT Impressions [facility] - 01/25/2023 12:02 PM CDT Post-op Diagnoses: - Large hemorrhoids found on perianal exam. 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 Biopsied. - One 25 mm polyp in the cecum, injected and removed piecemeal using a cold snare. Resected and retrieved. Narrative [facility] - 01/25/2023 12:02 PM CDT [facility] Patient Name: Sarah Reyes Date of : 1955 Age: 67 Gender: Female Procedure Date: 01/25/2023 Procedure: Colonoscopy Providers: Tera Arshad MD, SIDNEY Nunez (Fellow) Referring Provider: Brittany Valdez Pre-op Diagnoses: Hematochezia, Rectal bleeding Recommendation: - [facility]. - Resume previous diet. - No aspirin, ibuprofen, naproxen, or other non-steroidal anti-inflammatory drugs for at least 2 weeks after polypectomy, likely indefinitely pending biopsies (if IBD). - Await pathology results. - Repeat colonoscopy in 6 months for surveillance after piecemeal polypectomy. - Consider GI referral on an inpatient/outpatient basis for further management of proctitis, pending biopsy results. - The findings and recommendations were discussed with the patient's primary physician. Findings: Retroflexion in the right colon was performed. A 25 mm polyp was found in the cecum, behind the ileocecal valve. The polyp was sessile. As the presumed source for gastrointestinal bleeding was apparent (as detailed below) polypectomy was pursued. To distance the polypoid lesion from the ileocecal valve the area was successfully injected with 5 mL a 0.2 mg/mL solution of epinephrine with methylene blue for a lift polypectomy. The polyp was removed with a piecemeal technique using a cold snare. Resection and retrieval were complete using a suction (via the working channel). There were two small lipomas, in the ascending colon. Diffuse moderate inflammation characterized by congestion (edema) and erythema was found in the rectum spanning in a continuous fashion along the 15 cm from the anus. Biopsies were taken with a cold forceps for histology. No additional abnormalities were found on retroflexion. Large hemorrhoids were found on perianal exam. Procedural Details: The patient was seen, evaluated, history reviewed, airway and heart-lung exams were performed by licensed provider and were satisfactory for planned level of sedation care. The risks, benefits and alternatives for the procedure and sedation were discussed and informed consent was obtained. A procedural pause was conducted in the presence of assisting personnel to verify the correct patient identity and procedure to be performed. Throughout the procedure, the patient's blood pressure, pulse, and oxygen saturations were monitored continuously. The Pediatric Colonoscope was introduced under direct vision through the anus and advanced to the ileocecal valve. The patient tolerated the procedure well. The quality of the bowel preparation was evaluated using the BBPS (Spout [place] Bowel Preparation Scale) with scores of: Right Colon = 3, Transverse Colon = 3 and Left Colon = 3 (entire mucosa seen well with no residual staining, small fragments of stool or opaque liquid). The total BBPS score equals 9. The colonoscopy was technically difficult and complex due to significant looping. Successful completion of the procedure was aided by changing the patient to a supine position and applying abdominal pressure. Estimated Blood Loss: Estimated blood loss was minimal. Complications: No immediate complications. Sedation: Anesthesia was administered by an anesthesia professional. The following parameters were monitored: oxygen saturation, heart rate, blood pressure, respiratory rate, EKG, adequacy of pulmonary ventilation, and response to care. Attending Participation: I was present and participated during the entire procedure from insertion to removal of the endoscope. Tera Arshad MD 01/25/2023 11:16:48 AM This report has been signed electronically. Number of Addenda: 0 us Brittany Valdez M.D., M.P.H. GI PROCEDURE ORDERABLE S Edited Result - Final [employer] NA from Last 3 Months or Most Recently Relevant to Health Maintenance Insurance [place] [address] Advance Directives For more information, please contact: [phone] * Full Code (Latest Code Status on [...] Due to: Patient not available Care Teams Wire Inserter Relationship Specialty Start Date End Date Elsewhere, Pcp PCP - General Internal Medicine 01/24/23
--- OUTSIDE RECORDS SUMMARY | 2025-01-08 12:25 | XMS_ITS | Clinical Summary ---
Author Organization [facility] Address [address] [place] [id number] Care Team Providers Care Photogrammetric Compilation Specialist Name Role Phone Yecenia Thrasher MD Primary Care Provide r Allergies No known active allergies Medications albuterol HFA (PRO-AIR; VENTOLIN; PROVENTIL) 90 mcg/actuation inhalerIndication s:Chronic obstructive pulmonary disease, unspecified COPD type (HC) Inhale 2 Puffs by mouth 4 times daily if needed for Shortness of Breath 1st choice. 1 Each 024 Active zinc oxide topicalIndication s:Preventative health care Apply topically to affected area(s) after diaper change. 024 Active durable medical equipment (DME)Indications: Primary osteoarthritis of right knee Reddie Brace, XXL right knee 1 Each 025 Active medication order composerIndicatio ns:Chronic diarrhea Previtalize probiotic supplement. 2 capsules daily 025 Active ARIPiprazole (Abilify Maintena) 400 mg extended release injectionIndicati ons:Paranoid schizophrenia (HC) Inject 2 mL (400 mg) intramuscular every 3 weeks. 2 mL 025 Active Additional Information Patient taking differently: Inject 2 mL (400 mg) intramuscular every 3 weeks on , Informant: Longterm MAR, Reported on 12/22/2024 cloZAPine 25 mg tabletIndications :Paranoid schizophrenia (HC) Take 3 Tablets (75 mg) by mouth at bedtime. 84 Tablet 12 025 Active citalopram (CELEXA) 20 mg tabletIndications :Paranoid schizophrenia (HC) Take 1 Tablet (20 mg) by mouth once daily in the morning. 28 Tablet 12 025 Active traZODone (DESYREL) 50 mg tabletIndications :Paranoid schizophrenia (HC) Take 1 Tablet (50 mg) by mouth at bedtime. 28 Tablet 12 025 Active calcium carbonate (CALCIUM 500 ORAL) Take 500 mg by mouth two times daily. Active diclofenac topical (VOLTAREN) 1 % gel Apply 2 g topically to affected area(s) two times daily. Apply to right shoulder twice daily Active Psyllium Seed-Sucrose powder Mix 1 tsp in liquid then take by mouth once daily. Mix 1 teaspoon and drink by mouth every morning Active furosemide (LASIX) 20 mg tabletIndications :Bilateral lower extremity edema Take 1.5 Tablets (30 mg) by mouth once daily in the morning. 45 Tablet Active ammonium lactate 12 % creamIndications: Callus of foot Apply topically to affected area(s) two times daily. Apply to both feet twice daily. Pt self applies. 140 g 025 Active hydrocortisone (ANUSOL-HC) 2.5 % rectal creamIndications: Bleeding hemorrhoids Apply topically to affected area(s) 4 times daily if needed for Hemorrhoid Pain/Itch. Apply to affected area(s) of prolapsed rectum as needed 28 g 025 Active Milk of Magnesia 400 mg/5 mL suspensionIndicat ions:Preventative health care Take 15-30 mL by mouth once daily if needed for Constipation. 300 mL Active melatonin 3 mg tabletIndications :Chronic constipation TAKE 1 TABLET BY MOUTH EVERY NIGHT AT BEDTIME 28 Tablet 12 025 Active oxybutynin XL (DITROPAN XL) 10 mg CR tabletIndications :Urinary urgency TAKE 1 TABLET BY MOUTH DAILY 90 Tablet 025 Active pantoprazole (PROTONIX) 40 mg delayed-release tabletIndications :Chronic GERD TAKE 1 TABLET BY MOUTH DAILY 90 Tablet 025 Active Senna 8.6 mg tabletIndications :Chronic constipation TAKE 2 TABLETS BY MOUTH EVERY MORNING 56 Tablet 12 025 Active cholecalciferol (VITAMIN D3) 5,000 unit capsuleIndication s:Controlled type 2 diabetes mellitus without complication, without long-term current use of insulin (HC) TAKE 1 CAPSULE BY MOUTH DAILY 90 Capsule 025 Active atorvastatin (LIPITOR) 20 mg tabletIndications :Hyperlipidemia, unspecified hyperlipidemia type TAKE 1 TABLET BY MOUTH EVERY NIGHT AT BEDTIME 90 Tablet 025 Active Calcium Antacid 200 mg calcium (500 mg) chewable tabletIndications :Chronic constipation TAKE 1 TABLET BY MOUTH TWICE DAILY (MORNING & BEDTIME) 56 Tablet 12 025 Active ferrous gluconate 324 mg (38 mg iron) tabletIndications :Iron deficiency anemia due to chronic blood loss TAKE 1 TABLET BY MOUTH DAILY WITH A MEAL 90 Tablet 025 Active acetaminophen (TYLENOL EXTRA STRGTH) 500 mg tabletIndications :Closed fracture of left hip, initial encounter (HC) TAKE 2 TABLETS BY MOUTH 3 TIMES DAILY 180 Tablet 025 Active ARIPiprazole (Abilify) 15 mg tabletIndications :Paranoid schizophrenia (HC) Take 1 Tablet (15 mg) by mouth at bedtime. Further refills will be prescribed during an appointment 28 Tablet 2 025 Active lactobacillus rhamnosus (GG) (SpritzSnaptrip [facility]) 10 billion cell -200 mg capsuleIndication s:Chronic diarrhea Take 1 Capsule by mouth once daily. 30 Capsule 025 Active polyethylene glycol (Miralax) 17 g per packet packetIndications :Chronic constipation Mix 17 g (1 Packet) in liquid then take by mouth once daily if needed for Constipation. Mix 17 grams in 4-8 ounces of water or juice and drink every morning 90 Packet 3 025 Active lactobacillus rhamnosus, GG, (Maclear) 10 billion cell capsuleIndication s:Chronic diarrhea Take 1 Capsule by mouth once daily. 90 Capsule 3 024 2024 Discontinued(* Med complete/Regim en complete/Level of care change) ammonium lactate 12% (LACHYDRIN) 12 % creamIndications: Callus of foot Apply topically to affected area(s) two times daily. Apply to both feet twice daily. 385 g 5 024 2024 Discontinued Milk of Magnesia 400 mg/5 mL suspensionIndicat ions:Preventative health care Take 15 mL by mouth once daily if needed for Constipation. 024 2024 Discontinued acetaminophen (TYLENOL EXTRA STRGTH) 500 mg tabletIndications :Closed fracture of left hip, initial encounter (HC) Take 2 Tablets (1,000 mg) by mouth every 8 hours. Max acetaminophen dose: 4000mg in 24 hrs. 180 Tablet 3 025 2024 Discontinued pantoprazole (PROTONIX) 40 mg delayed-release tabletIndications :Chronic GERD Take 1 Tablet (40 mg) by mouth once daily. 90 Tablet 1 025 2024 Discontinued oxybutynin XL (DITROPAN XL) 10 mg CR tabletIndications :Urinary urgency Take 1 Tablet (10 mg) by mouth once daily. 90 Tablet 1 025 2024 Discontinued furosemide (LASIX) 20 mg tabletIndications :Bilateral lower extremity edema Take 1 Tablet (20 mg) by mouth two times daily. 180 Tablet 1 025 2024 Discontinued ferrous gluconate 324 mg (37 mg iron) tabletIndications :Iron deficiency anemia due to chronic blood loss Take 1 Tablet by mouth once daily with a meal. 90 Tablet 1 025 2024 Discontinued cholecalciferol (VITAMIN D3) 5,000 unit capsuleIndication s:Controlled type 2 diabetes mellitus without complication, without long-term current use of insulin (HC) Take 1 Capsule (5,000 units) by mouth once daily. 90 Capsule 1 025 2024 Discontinued atorvastatin (LIPITOR) 20 mg tabletIndications :Hyperlipidemia, unspecified hyperlipidemia type Take 1 Tablet (20 mg) by mouth at bedtime. 90 Tablet 1 025 2024 Discontinued hydrocortisone (ANUSOL-HC) 2.5 % rectal creamIndications: Bleeding hemorrhoids Apply topically to affected area(s) two times daily. 28 g 2 025 2024 Discontinued ARIPiprazole (Abilify) 10 mg tabletIndications :Paranoid schizophrenia (HC) Take 1 Tablet (10 mg) by mouth at bedtime. 28 Tablet 12 025 2024 Discontinued(* Medication adjustment) melatonin 3 mg tablet Take 3 mg by mouth at bedtime. 2024 Discontinued polyethylene glycol (Miralax) 17 g per packet packet Mix 1 Packet in liquid then take by mouth once daily. Mix 17 grams in 4-8 ounces of water or juice and drink every morning 2024 Discontinued(R eorder (E-cancel not sent)) sennosides (Senna) 8.6 mg tablet Take 17.2 mg by mouth once daily. 2024 Discontinued Active Problems Problem Noted Date Diagnosed Date Malignant neoplasm of lung 12/10/2024 Overview (12/10/2024): AI Summary: The patient had a history of adenocarcinoma of the lung, which was diagnosed in 2019 and treated with wedge resection. There was a mention that the patient's lung cancer had been lost to follow up for a couple of years, and a CT scan was recommended for follow-up in 06/2023. Recent encounter dx: 07/04/23: Appointment - [facility] 07/04/23: Appointment - [facility] 06/06/23: Appointment - [facility] 05/25/22: Appointment - [facility] 11/04/20: Appointment - [facility] Recent studies: 06/18/21: CT HEAD BRAIN WO by Arnaldo Anne MD, Clive Rahman MD ... [+] Also history of lung adenocarcinoma (2018) and recent falls. Recent notes: 11/24/24: Progress Notes by Yecenia Thrasher MD ... [+] ? Adenocarcinoma of lung (HC) C34.90 04/02/24: Discharge Summary by Sheldon Salas DO ... [+] Adenocarcinoma of lung (HC) ... [-] Sarah Reyes is a(n) 68 y.o. with a history of schizophrenia, COPD, KEVIN, lung cancer s/p wedge resection, mitral regurgitation and stenosis, pulmonary hypertension, HFpEF, HTN, T2DM, and GERD who was admitted by the trauma service on 03/22/2024 with a left hip fracture. ... [-] Adenocarcinoma of lung 03/23/24: Consults by Kandace Blanca NP ... [-] The patient is a 68 y.o. female with PMHx significant for schizophrenia, COPD, KEVIN, lung cancer s/p wedge resection, mitral regurgitation and stenosis, pulmonary hypertension, HFpEF, HTN, T2DM, and GERD who was admitted by the trauma service on 03/22/2024 with a left hip pain post a fall. ... [-] lung cancer 03/23/24: Progress Notes - TRAUMA SERVICE TERTIARY EXAM and DAILY PROGRESS NOTE - TRAUMA SERVICE TERTIARY EXAM and DAILY PROGRESS NOTE by Lydia Xiao NP ... [-] Sarah Reyes is a 68 y.o. female with history of schizophrenia, COPD, KEVIN, lung cancer s/p wedge resection, mitral regurgitation and stenosis, pulmonary hypertension, HFpEF, HTN, T2DM, and GERD who presents to [facility] Emergency Department from [facility] via EMS for evaluation after a fall. ... [+] Medical co-morbidities (schizophrenia, COPD, KEVIN, lung cancer s/p wedge resection, mitral regurgitation and stenosis, pulmonary hypertension, HFpEF, HTN, T2DM, and GERD etc ) 03/22/24: Consults - CONSULT - CONSULT by Melissa Marin MD ... [+] ? Adenocarcinoma of lung (HC) 05/05/2018 Hemorrhoid prolapse 12/10/2024 Rectal pain 12/09/2024 s/p left femur intramedullar y girma insertion DOS 03/23/24 by Yeecnia Thrasher* 06/24/2024 S/p Cephalomedullary nailing left hip [...] diabetes mellitus 1 06/25/2020 Psychophysiological insomnia 11/24/2018 manager intermediate current use of clozapine 05/26/2018 Paranoid schizophrenia 05/15/2018 KEVIN 03/13/2018 AHI-16 05/15/2018 Adenocarcinoma of lung 05/05/2018 Nonrheumatic mitral valve insufficiency 08/28/19 Metabolic syndrome 06/12/2016 Mild intermittent asthma 08/11/2015 [...] Encounters Date Type Department Care Team Description 01/05/2025 Refill [facility] [address] [place] [address] Yecenia Thrasher MD Refill Request (Peg 3350 Pow ) 01/01/2025 Refill [facility] [address] [place] [address] Yecenia Thrasher MD Refill Request (miralax) 12/24/2024 10:30 AM CDT Telemedicine [facility] [address] [place] [address] Fernando Couch MD Telehealth; Medication Management 12/24/2024 Refill [facility] [address] [place] [address] Yecenia Thrasher MD Refill Request ([facility]) 12/24/2024 Travel 12/22/2024 2:40 PM CDT Office Visit [facility] [address] [place] [address] Yecenia Thrasher MD Hospital F/U (In patient 12/09 - 12/10 rectal prolapse/Has been using butt paste/No blood with stool) 12/22/2024 Travel 12/18/2024 Travel 12/15/2024 Telephone [facility] [address] [place] [address] Fernando Couch MD Care Coordination 12/14/2024 Refill [facility] [address] [place] [address] Yecenia Thrasher MD Refill Request (Melatonin, Oxybutynin Xl, Pantoprazole, Senna, Cholecalciferol, Atorvastatin, Calcium Antacid, Ferrous Gluconate, Acetaminophen) 12/09/2024 2:23 PM CDT - 12/10/2024 2:35 PM CDT Hospital Encounter [address] [address] Modesta Baltazar [place] [facility] [place] Rectal pain (Primary Dx); Chronic anemia; Bright red blood per rectum; Rectal prolapse; Bilateral lower extremity edema; Callus of foot; Bleeding hemorrhoids; Preventative health care Discharge Disposition: [facility]irement Facility 12/09/2024 Travel 12/09/2024 Nurse Triage [facility] [address] [place] [address] Yecenia Thrasher MD Rectal Problem 12/08/2024 7:30 AM CDT Telemedicine [facility] [address] [place] [address] Fernando Couch MD Telehealth; Medication Management (Hearing a lot more voices, struggling/Hearing new voices, Feeling scared/Back at [facility] for 3 wks now) 12/08/2024 Travel 12/07/2024 1:30 PM CDT Orders Only [facility] [address] [place] [address] Lab 12/07/2024 Telephone [facility] [address] [place] [address] Fernando Couch MD Lab (Had already left lab by time got message ) 12/07/2024 Refill [facility] [address] [place] [address] Fernando Couch MD Refill Request; [facility] INJ 12/06/2024 Travel 12/03/2024 Telephone [facility] [address] [place] [address] Yecenia Thrasher MD QUESTIONS 11/24/2024 2:40 PM CDT Office Visit [facility] [address] [place] [address] Yecenia Thrasher MD Hospital F/U (Back home last Saturday. [facility] did not have paperwork ready. /Has been having trouble with BMs./Has been confused and the voices she hears are worse. Feel it may have been increased from being out of her normal living space.) 11/24/2024 Travel 11/03/2024 Lab Requisition [facility] [phone] Gregoria Paz NP 11/02/2024 Telephone [facility] [address] [place] [address] Fernando Couch MD clozapine management from Last 3 Months Immunizations Immunization Administration Dates Next Due COVID-19 VACCINE SPIKEVAX (M ODERNA 50MCG/0.5ML) 12YO+ PFS 03/14/2023 COVID-19 vaccine (Pfizer-Bio NTech 30mcg/0.3mL) 12YO+ BIVALENT PF, MDV 02/22/2022 COVID-19 vaccine (ZapstitchBio NTech 30mcg/0.3mL) PF, MDV 07/29/2020,07/08/2020 Influenza RIV4 [...] Answer Date Recorded PHQ-2 TOTAL SCORE 1 12/24/2024 Social Connections Answer Date Recorded Do you often feel lonely or isolated from those around you? 0 12/09/2024 Financial Resource Strain Answer Date R ecorded Difficulty of Paying Living Expenses 3 01/09/2024 Difficulty of Paying Living Expenses Not on file 01/09/2024 Food Insecurity Answer Date Recorded Do you worry your food will run out before you are able to buy more? 1 12/09/2024 Transportation Needs Answer Date Record ed Does lack of transportation keep you from medica l appointments? 1 12/09/2024 Does lack of transportation keep you from work, meetings or getting things that you need? 1 12/09/2024 Housing Stability Answer Date Recorded What is your housing situation today? 1 12/09/2024 Interpersonal Safety Answer Date Record ed Are you being hit, kicked, p ushed or yelled at (see row info)? No 12/09/2024 Interpersonal Safety Abuse 12 - 18 Not on file 12/09/2024 Interpersonal Safety Ambulatory Vulnerability No t on file 12/09/2024 Utilities Answer Date Recorded Do you have trouble paying f or utilities (for example, heat, electricity, water, phone)? 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[employer] PRESS TENDER Gender Identity Not on file Sexual Orientation Not on file Obstetrics History Para Term AB IAB SAB Ectopic Multiple Livin g Live Births 3 1 1 2 1 1 Date Outcome GA Total Labor Labor/2nd/3rd Weight Sex Type Anes PTL Domenica A1 A5 Name Clin AB AB 1984 Term Vag Living Last Filed Vital Signs Vital Sign Reading Time Taken Comments Blood Pressure 122/69 12/22/2024 3:10 PM CDT Pulse 77 12/22/2024 3:10 PM CDT Temperature 36.2 C (97.2 F) 12/10/2024 7:22 AM CDT Respiratory Rate 18 12/10/2024 7:22 AM CDT Oxygen Saturation 97% 12/22/2024 3:10 PM CDT Inhaled Oxygen Concentration - - Weight 83.9 kg (185 lb) 12/22/2024 3:10 PM CDT Height 159.4 cm (5' 2.75) 12/22/2024 3:10 PM CD T Body Mass Index 33.03 12/22/2024 3:10 PM CDT Plan of Treatment Upcoming Encounters Date Type Department Care Team (Late st Contact Info) Description 01/11/2025 1:45 PM CDT Orders Only [facility] [address] [place] [address] [place] 01/14/2025 1:25 PM CDT Office Visit [facility] [address] [place] [address] Yecenia Thrasher MD [address] [place] [address] 01/18/2025 2:30 PM CDT Office Visit [facility] [address] [place] [phone] Evon Gerard, PhD, LP [address] [place] [address] 02/04/2025 12:30 PM CDT Telemedicine [facility] [address] [facility] [address] Fernando Couch MD [address] [place] [address] 02/10/2025 8:00 AM CDT Office Visit [facility] [address] [place] [address] Rinku Mandel MD [address] [place] [place] [address] 02/10/2025 2:15 PM CDT Orders [place] [address] [place] [address] [place], [place] 03/15/2025 3:15 PM LINSEED OIL PRESS TENDER Orders Only [facility] [address] [place] [address] Lab, [place] 04/12/2025 2:15 PM LINSEED OIL PRESS TENDER Orders Only [facility] [place] [address] Lab, [place] Health Maintenance Due Date Last Done Comments Zoster (shingles) series for age 50+ (1 of 2) 1974 COVID-19 vaccine series (2024- season) 2024 09/09/2024, 02/04/2024, 03/14/2023, Additional history exists Influenza Vaccine (#1) 2024 , 03/14/2023, 02/22/2022, Additional history exists Medicare Wellness for age 65+ 01/09/2025 01/09/2024, 11/04/2020, 01/29/2019 Mammogram for age 45-75 01/13/2025 01/14/20 24, 08/20/2022, 04/07/2021, Additional history exists Fecal testing sDNA-FIT (Cologuard) for age 45-75 06/05/2025 06/05/2022 BMI (ht and wt on same day) for age 18+ 12/22/2025 12/22/2024, 01/09/2024, 09/27/2022, Additional history exists Depression screening for age 12+ 12/24/2025 12/24/2024, 12/22/2024, 01/09/2024, Additional history exists Lipids for age 45-75 01/08/2029 01/09/2024, 09/18/2023, 05/25/2022, Additional history exists Tetanus booster 10/10/2032 10/10/2022 Hepatitis C screening for age 18-79 Completed 05/30/2021 Pneumococcal series for age 50+ Completed 05/25/2022, 11/04/2020 DEXA/DXA scan for age 65+ Completed 01/14/2024 RSV vaccine for adults or Completed 02/04/2024 Hepatitis B series for 19+ Aged Out N o longer eligible based on patient's age to complete this topic Medical Devices Implanted Type Area Thoracic Surgeon Device Identifier Shelf Expiration Date Model / Serial / Lot Screw Locking 3.5 X 16 Implanted:Qty: 1 on 10/16/2022 by Delmer Sheth MD at [facility] Left: Arm [id number] / / Description:SCREW LOCKING 3. 5 X 16 Plate Olecranon 8h L 114mm Implanted:Qty: 1 on 10/16/2022 by Delmer Sheth MD at [facility] Left: Arm [id number] / / Description:PLATE OLECRANON 8H L 114MM Plate Strength 2.4mm 10 Hole Implanted:Qty: 1 on 10/16/2022 by Delmer Sheth MD at [facility] Left: Arm [id number] / / Description:PLATE STRENGTH 2 .4MM 10 HOLE Screw Locking 2.4 X 14 Implanted:Qty: 1 on 10/16/2022 by Delmer Sheth MD at [facility] Left: Arm [id number] / / Screw Locking 2.4 X 15 Implanted:Qty: 1 on 10/16/2022 by Delmer Sheth MD at [facility] Left: Arm [id number] / / Description:SCREW LOCKING 2. 4 X 15 Screw Locking 2.4 X 16 Implanted:Qty: 2 on 10/16/2022 by Delmer Sheth MD at [facility] Left: Arm [id number] / / Description:SCREW LOCKING 2. 4 X 16 Screw Cortex 2.7 X 16 Implanted:Qty: 1 on 10/16/2022 by Delmer Sheth MD at [facility] Left: Arm [id number] / / Description:SCREW CORTEX 2.7 X 16 Head Elbow Od22 [id number] Explor - [id number] Implanted:Qty: 1 on 10/16/2022 by Delmer Sheth MD at [facility] Left: Arm [employer] 06/30/2032 / / [id number] Stem Elbow 7x26mm Explor - [id number] Implanted:Qty: 1 on 10/16/2022 by Delmer Sheth MD at [facility] Left: Arm [employer] 09/08/2032 / / [id number] Screw 2.0 X 18 Implanted:Qty: 1 on 10/16/2022 by Delmer Sheth MD at [facility] Left: Arm [id number] / / Description:SCREW 2.0 X 18 Screw Bone 3.5x13mm Evos Small Cortex Slf Tppng - [id number] Implanted:Qty: 3 on 10/16/2022 by Delmer Sheth MD at [facility] Left: Arm [employer] [id number] / / Screw Bone 3.5x16mm Evos Small Cortex Slf Tppng - [id number] Implanted:Qty: 1 on 10/16/2022 by Delmer Sheth MD at [facility] Left: Arm [employer] [id number] / / Screw Locking 2.7 X 18 Implanted:Qty: 3 on 10/16/2022 by Delmer Sheth MD at [facility] Left: Arm [id number] / / Screw Locking 2.7 X 36 Implanted:Qty: 1 on 10/16/2022 by Delmer Sheth MD at [facility] Left: Arm [id number] / / Description:SCREW LOCKING 2. 7 X 36 Bone Matrix 5cc Codie Putty Dbm - [id number] Implanted:Qty: 1 on 11/07/2022 by Delmer Sheth MD at [facility] Right: Arm [employer] 02/13/2025 [id number] / [id number] / Plate Strength 2.4mm 20 Hole Implanted:Qty: 1 on 11/07/2022 by Delmer Sheth MD at [facility] Right: Arm [id number] / / Description:PLATE STRENGTH 2 .4MM 20 HOLE Screw Locking 2.4 X 10 Implanted:Qty: 3 on 11/07/2022 by Delmer Sheth MD at [facility] Right: Arm [id number] / / Description:SCREW LOCKING 2. 4 X 10 Screw Locking 2.4 X 11 Implanted:Qty: 1 on 11/07/2022 by Delmer Sheth MD at [facility] Right: Arm [id number] / / Description:SCREW LOCKING 2. 4 X 11 Screw Locking 2.4 X 12 Implanted:Qty: 1 on 11/07/2022 by Delmer Sheth MD at [facility] Right: Arm [id number] / / Description:SCREW LOCKING 2. 4 X 12 Screw Cortex 2.4 X 10 Implanted:Qty: 1 on 11/07/2022 by Delmer Sheth MD at [facility] Right: Arm [id number] / / Description:SCREW CORTEX 2.4 X 10 Screw Cortex 2.4 X 12 Implanted:Qty: 1 on 11/07/2022 by Delmer Sheth MD at [facility] Right: Arm [id number] / / Description:SCREW CORTEX 2.4 X 12 Screw Bone 3.5x11mm Evos Small Cortex Slf Tppng - [id number] Implanted:Qty: 1 on 11/07/2022 by Delmer Sheth MD at [facility] Right: Arm [employer] [id number] / / Screw Bone 3.5x12mm Evos Small Cortex Slf Tppng - [id number] Implanted:Qty: 3 on 11/07/2022 by Delmer Sheth MD at [facility] Right: Arm [employer] [id number] / / Screw Bone 3.5x13mm Evos Small Cortex Slf Tppng - [id number] Implanted:Qty: 2 on 11/07/2022 by Delmer Sheth MD at [facility] Right: Arm [employer] [id number] / / Screw Bone 3.5x15mm Evos Small Cortex Slf Tppng Implanted:Qty: 1 on 11/07/2022 by Delmer Sheth MD at [facility] Right: Arm [id number] / / Description:SCREW BONE 3.5X1 5MM EVOS SMALL CORTEX SLF TPPNG Screw Bone 3.5x13mm Evos Locks-T - [id number] Implanted:Qty: 1 on 11/07/2022 by Delmer Sheth MD at [facility] Right: Arm [employer] [id number] / / Screw Bone 3.5x12mm Evos Locks-T Implanted:Qty: 4 on 11/07/2022 by Delmer Sheth MD at [facility] Right: Arm [id number] / / Description:Screw Bone 3.5x1 2mm Evos Locks-T Plate Locking Compression 3.5mm 8h 93mm Implanted:Qty: 1 on 11/07/2022 by Delmer Sheth MD at [facility] Right: Arm [id number] / / Description:PLATE LOCKING CO MPRESSION 3.5MM 8H 93MM Plate Radial Shaft 12h 146mm Implanted:Qty: 1 on 11/07/2022 by Delmer Sheth MD at [facility] Right: Arm [id number] / / Description:PLATE RADIAL SHA FT 12H 146MM Nail Intertan 38qse79im 125 Deg - [id number] Implanted:Qty: 1 on 03/23/2024 by Gigi Arreaga MD at [facility] Left: Hip [employer] 08/09/2033 [id number] / / [id number] Description:DANIELLE Zavaleta .................... 03/24/2024 9:31 AM Kit Bone Screw 95/90mm Comp Lag - [id number] Implanted:Qty: 1 on 03/23/2024 by Gigi Arreaga MD at [facility] Left: Hip [employer] 11/03/2033 [id number] / / [id number] Description:CHECKED DANIELLE Newman .................... 03/24/2024 9:31 AM Screw Bone 5.0x27.5mm Trigen Donald Low Profile Titnm - [id number] Implanted:Qty: 1 on 03/23/2024 by Gigi Arreaga MD at [facility] Left: Hip [employer] 08/24/2033 [id number] / / [id number] Description:CHECKED DANIELLE Newman .................... 03/24/2024 9:31 AM Explanted Type Area Thoracic Surgeon Device Identifier Shelf Expiration Date Model / Serial / Lot K Wire Fix 150x1.6mm For Alysa-Loc - [id number] Explanted:Qty: 2 on 10/16/2022 at [facility] Left: Arm [employer] [id number] / / Explant Explanted:Qty: 1 on 11/07/2022 at [facility] Right: Arm Description:ULNA 1 PLATE 6 S CREWS, RADIUS 1 PLATE 6 SCREWS Procedures Procedure Name Priority Date/Time Associated Diagnosis Comments HEMOGLOBIN Early AM 12/10/2024 6:01 AM CDT MAGNESIUM Early AM 12/10/2024 6:01 AM CDT CREATININE Early AM 12/10/2024 6:01 AM CDT POTASSIUM Early AM 12/10/2024 6:01 AM CDT SODIUM Early AM 12/10/2024 6:[address] ABDOMEN PELVIS W STAT 12/09/2024 4 :35 PM CDT CBC WITH AUTO DIFFERENTIAL STAT 12/09/2024 3:23 PM CDT BASIC METABOLIC PANEL STAT 12/09/2024 3:23 PM CDT CBC WITH AUTO DIFFERENTIAL STAT 12/09/2024 3:23 PM CDT ARIPIPRAZOLE (ABILIFY) Routine 12/08/2024 9:20 AM CDT Long-term use of high-risk medication CLOZAPINE (CLOZARIL) Routine 12/08/2024 9:20 AM CDT Long-term use of high-risk medication COMP METABOLIC PANEL Routine 12/07/2024 1:44 PM CDT Other schizophrenia (HC) CBC WITH AUTO DIFFERENTIAL Routine 11/03/2024 7:25 AM CDT Paranoid schizophrenia (HC) CBC WITH AUTO DIFFERENTIAL Routine 11/03/2024 7:25 AM CDT Paranoid schizophrenia (HC) XR DXA BONE DENSITY 2 SITES AXIAL Routine 01/14/2024 2:28 PM CDT Menopause XR MAMMO RAFAT BILAT SCREEN Routine 01/14/2024 1:38 PM CDT Encounter for screening mammogram for malignant neoplasm of breast LIPID PANEL W REFLEX MEASURED LDL Routine 01/09/2024 1:50 PM CDT Hyperlipidemia, unspecified hyperlipidemia type SDNA-FIT EXTERNAL (COLOGUARD) Routine 06/05/2022 7:37 AM LINSEED OIL PRESS TENDER Screening for colon cancer ANTI HCV Routine 05/30/2021 10:19 AM LINSEED OIL PRESS TENDER Need for hepatitis C screening test from Last 3 Months or Most Recently Relevant to Health Maintenance Results * (ABNORMAL) HEMOGLOBIN (12/10/2024 6:01 AM CDT) HEMOGLOBIN 9.5(L) 12.0 - 16.0 g/dL 12/10/2024 6:40 AM CDT [facility] MCV 91 80 - 100 fL 12/10/2024 6:40 AM CDT [facility] Blood BLOOD SPECIMEN / Unknown Butterfly / Unknown 12/10/2024 6:01 AM CDT 12/10/2024 6:35 AM CDT Caty Tomlin BATTERY PLATE REMOVER HEMATOLOGY Final Result Performing Organization Address [facility]/ZIP Co de Phone Number [facility] [address] [place] [address] * SODIUM (12/10/2024 6:01 AM CDT) SODIUM 141 136 - 145 mmol/L 12/10/2024 7:15 AM CDT [facility] Blood BLOOD SPECIMEN / Unknown Butterfly / Unknown 12/10/2024 6:01 AM CDT 12/10/2024 6:35 AM CDT Caty Tomlin BATTERY PLATE REMOVER CHEMISTRY Final Result Performing Organization Address [facility] de Phone Number [facility] [address] [place] [address] * POTASSIUM (12/10/2024 6:01 AM CDT) POTASSIUM 4.0 3.5 - 5.1 mmol/L 12/10/2024 7:15 AM CDT [facility] Blood BLOOD SPECIMEN / Unknown Butterfly / Unknown 12/10/2024 6:01 AM CDT 12/10/2024 6:35 AM CDT Caty Tomlin NP CHEMISTRY Final Result Performing Organization Address [facility] Co de Phone Number [facility] [address] [place] [address] * (ABNORMAL) CREATININE (12/10/2024 6:01 AM CDT) eGFR >90 >90 mL/min/1.7 3m2 12/10/2024 7:15 AM CDT [facility] Comment:As of 2021, eG FR is calculated by the CKD-EPI creatinine equation without race adjustment. eGFR can be influenced by muscle mass, exercise, and diet. The reported eGFR is an estimation only and is only applicable if the renal function is stable. CREATININE 0.47(L) 0.50 - 0.90 mg/dL 12/10/2024 7:15 AM CDT [facility] Blood BLOOD SPECIMEN / Unknown Butterfly / Unknown 12/10/2024 6:01 AM CDT 12/10/2024 6:35 AM CDT Caty Tomlin NP CHEMISTRY Final Result Performing Organization Address [facility]/ZIP Co de Phone Number [facility] [address] [place] [address] * MAGNESIUM (12/10/2024 6:01 AM CDT) Pathologist [facility] MAGNESIUM 2.0 1.6 - 2.4 mg/dL 12/10/2024 7:15 AM CDT [facility] Blood BLOOD SPECIMEN / Unknown Butterfly / Unknown 12/10/2024 6:01 AM CDT 12/10/2024 6:35 AM CDT Caty Tomlin NP CHEMISTRY Final Result Performing Organization Address [facility] Co de Phone Number [facility] [address] [place] [address] * CT ABDOMEN PELVIS W (12/09/2024 4:35 PM CDT) Anatomical Region Laterality Modality Abdomen, Pelvis, AORTA, LIVER, SPLEEN Computed Tomography 12/09/2024 4:49 PM CDT Impressions 12/09/2024 4:49 PM CDT No discrete acute process in the abdomen or pelvis. No obstruction. No hydroureteronephrosis. Streak artifact and motion degrades fine detailed evaluation of the pelvis poorly at the level of the rectum. Questionable trace perirectal stranding into the meso rectal fat. A nonspecific finding however can be seen the setting of underlying infectious etiology. Please note that all CT scans at this facility use dose modulation, iterative reconstruction, and/or weight-based dosing when appropriate to reduce radiation dose to as low as reasonably achievable. Dictated by Keaton Villaseñor MD @ 12/09/2024 4:49:05 PM (Electronically Signed) Narrative 12/09/2024 4:49 PM CDT For Patients: As a result of the Cures Act, medical imaging exams and procedure reports are released immediately into your electronic medical record. You may view this report before your referring provider. If you have questions, please contact your health care provider. INDICATION: bloody stools, rectal prolapse from [facility], not prolapsed on exam, rectal pain TECHNIQUE: CT abdomen and pelvis acquired with 100 cc omni 300 IV contrast. COMPARISON: Exams dating back to 2020. FINDINGS: Lower chest: Motion. Subsegmental atelectasis. Left lower lobe sublobar wedge resection. Dense mitral annular calcifications. Borderline cardiomegaly. ABDOMEN: Liver: Normal enhancement. Right hepatic lobe cyst. Subcentimeter hypodensities are too small to characterize however statistically represent cysts. Gallbladder and biliary: Normal gallbladder without radiopaque stone. Normal caliber bile ducts. Spleen: Normal size and enhancement. Pancreas: Normal enhancement without peripancreatic inflammatory changes or ductal dilatation. Adrenal glands: Normal adrenal glands. Kidneys and ureters: Normal enhancement. No radio-opaque calculi. No hydroureteronephrosis. Subcentimeter hypodensities are too small to characterize however statistically represent cysts. GI tract: The stomach is relatively decompressed. Normal caliber small and large bowel loops. Normal appendix. Streak artifact and motion degrades fine detailed evaluation of the pelvis poorly at the level of the rectum. Questionable trace perirectal stranding into the meso rectal fat. Vascular structures: Normal caliber abdominal aorta. Lymph nodes: No lymphadenopathy in the abdomen or pelvis by size criteria. Peritoneum: No free air, free fluid, or focal drainable fluid collection. PELVIS: Genitourinary system: Normal urinary bladder. Age-appropriate uterus with likely uterine fibroid. SKELETAL STRUCTURES AND SOFT TISSUES: Multilevel spondylosis. Left hip arthroplasty. Adjacent heterotopic ossification. Procedure Note Keaton Villaseñor MD - 12/09/2024 For Patients: As a result of the Century Cures Act, medical imagingexams and procedure reports are released immediately into your electronicmedical record. You may view this report before your referring provider.If you have questions, please contact your health care provider. INDICATION: bloody stools, rectal prolapse from [facility], not prolapsed on exam, rectalpain TECHNIQUE: CT abdomen and pelvis acquired with 100 cc omni 300 IV contrast. COMPARISON: Exams dating back to 2020. FINDINGS: Lower chest: Motion. Subsegmental atelectasis. Left lower lobe sublobarwedge resection. Dense mitral annular calcifications. Borderlinecardiomegaly. ABDOMEN: Liver: Normal enhancement. Right hepatic lobe cyst. Subcentimeterhypodensities are too small to characterize however statisticallyrepresent cysts. Gallbladder and biliary: Normal gallbladder without radiopaque stone.Normal caliber bile ducts. Spleen: Normal size and enhancement. Pancreas: Normal enhancement without peripancreatic inflammatory changesor ductal dilatation. Adrenal glands: Normal adrenal glands. Kidneys and ureters: Normal enhancement. No radio-opaque calculi. Nohydroureteronephrosis. Subcentimeter hypodensities are too small tocharacterize however statistically represent cysts. GI tract: The stomach is relatively decompressed. Normal caliber small andlarge bowel loops. Normal appendix. Streak artifact and motion degradesfine detailed evaluation of the pelvis poorly at the level of the rectum.Questionable trace perirectal stranding into the meso rectal fat. Vascular structures: Normal caliber abdominal aorta. Lymph nodes: No lymphadenopathy in the abdomen or pelvis by sizecriteria. Peritoneum: No free air, free fluid, or focal drainable fluidcollection. PELVIS: Genitourinary system: Normal urinary bladder. Age-appropriate uterus withlikely uterine fibroid. SKELETAL STRUCTURES AND SOFT TISSUES: Multilevel spondylosis. Left hiparthroplasty. Adjacent heterotopic ossification. IMPRESSION: No discrete acute process in the abdomen or pelvis. No obstruction. Nohydroureteronephrosis. Streak artifact and motion degrades fine detailed evaluation of the pelvispoorly at the level of the rectum. Questionable trace perirectal strandinginto the meso rectal fat. A nonspecific finding however can be seen thesetting of underlying infectious etiology. Please note that all CT scans at this facility use dose modulation,iterative reconstruction, and/or weight-based dosing when appropriate toreduce radiation dose to as low as reasonably achievable. Dictated by Keaton Villaseñor MD @ 12/09/2024 4:49:05 PM (Electronically Signed) Modesta FERNANDEZ CT Final Result * (ABNORMAL) CBC WITH AUTO DIFFERENTIAL (12/09/2024 3:23 PM CDT) Only the most recent of2 resultswithin the time period is included. WHITE BLOOD COUNT 5.1 4.5 - 11.0 thou/cu mm 12/09/2024 3:55 PM [facility] RED BLOOD COUNT 3.38(L) 4.00 - 5.20 mil/cu mm 12/09/2024 3:55 PM [facility] HEMOGLOBIN 9.7(L) 12.0 - 16.0 g/dL 12/09/2024 3:55 PM [facility] HEMATOCRIT 30.5(L) 33.0 - 51.0 % 12/09/2024 3:55 PM [facility] MCV 90 80 - 100 fL 12/09/2024 3:55 PM [facility] MCH 28.7 26.0 - 34.0 pg 12/09/2024 3:55 PM [facility] MCHC 31.8(L) 32.0 - 36.0 g/dL 12/09/2024 3:55 PM [facility] RDW 15.7(H) 11.5 - 15.5 % 12/09/2024 3:55 PM [facility] PLATELET COUNT 180 140 - 440 thou/cu mm 12/09/2024 3:55 PM [facility] MPV 10.7 6.5 - 11.0 fL 12/09/2024 3:55 PM [facility] % NEUT 76.3 % 12/09/2024 3:55 PM [facility] % LYMPH 17.0 % 12/09/2024 3:55 PM [facility] % MONO 6.7 % 12/09/2024 3:55 PM CDT [facility] % EOS 0.0 % 12/09/2024 3:55 PM CDT [facility] % BASO 0.0 % 12/09/2024 3:55 PM CDT [facility] ABSOLUTE NEUTROPHILS 3.9 1.7 - 7.0 thou/cu mm 12/09/2024 3:55 PM CDT [facility] ABSOLUTE LYMPHOCYTES 0.9 0.9 - 2.9 thou/cu mm 12/09/2024 3:55 PM CDT [facility] ABSOLUTE MONOCYTES 0.3 <0.9 thou/cu mm 12/09/2024 3:55 PM CDT [facility] ABSOLUTE EOSINOPHILS 0.0 <0.5 thou/cu mm 12/09/2024 3:55 PM T [facility] ABSOLUTE BASOPHILS 0.0 <0.3 thou/cu mm 12/09/2024 3:55 PM T [facility] Blood BLOOD SPECIMEN / Unknown Butterfly / Unknown 12/09/2024 3:23 PM CDT 12/09/2024 3:40 PM CDT Modesta FERNANDEZ HEMATOLOGY Final Result [facility] [address] [place] [address] * (ABNORMAL) BASIC METABOLIC PANEL (12/09/2024 3:23 PM CDT) SODIUM 138 136 - 145 mmol/L 12/09/2024 4:04 PM CDT [facility] POTASSIUM 4.1 3.5 - 5.1 mmol/L 12/09/2024 4:04 PM [facility] CHLORIDE 103 98 - 107 mmol/L 12/09/2024 4:04 PM [facility] CO2,TOTAL 26 22 - 29 mmol/L 12/09/2024 4:04 PM [facility] ANION GAP 9 5 - 18 12/09/2024 4:04 PM [facility] GLUCOSE 113(H) 70 - 99 mg/dL 12/09/2024 4:04 PM T [facility] CALCIUM 8.2(L) 8.8 - 10.4 mg/dL 12/09/2024 4:04 PM T [facility] Comment: Reference ranges for this test were updated on 03/03/2024 to reflect our healthy population more accurately. Reference range changes are not retroactively applied to results, but previous results using the same methodology can be interpreted in the context of the new reference range. BUN 10 8 - 23 mg/dL 12/09/2024 4:04 PM T [facility] CREATININE 0.56 0.50 - 0.90 mg/dL 12/09/2024 4:04 PM [facility] BUN/CREAT RATIO 18 10 - 20 4:04 PM T [facility] eGFR >90 >90 mL/min/1. 73m2 12/09/2024 4:04 PM [facility] Comment:As of 2021, eG FR is calculated by the CKD-EPI creatinine equation without race adjustment. eGFR can be influenced by muscle mass, exercise, and diet. The reported eGFR is an estimation only and is only applicable if the renal function is stable. Blood BLOOD SPECIMEN / Unknown Butterfly / Unknown 12/09/2024 3:23 PM CDT 12/09/2024 3:40 PM CDT Modesta FERNANDEZ CHEMISTRY Final Result [facility] [address] [place] [address] * CLOZAPINE (CLOZARIL) (12/08/2024 9:20 AM CDT) NORCLOZAPINE 106 25 - 400 mcg/L [facility] [place] CLOZAPINE 116 mcg/L [facility] [place] Comment: The therapeutic response begins to appear at 100 mcg/L. Refractory schizophrenia appears to require a therapeutic concentration of at least 350 mcg/L (trough, at steady state). Toxic range: Greater than 900 mcg/L This test was developed and its analytical performance characteristics have been determined by [facility] [place], [place]. It has not been cleared or approved by the U.S. Food and Drug Administration. This assay has been validated pursuant to the CLIA regulations and is used for clinical purposes. Blood BLOOD SPECIMEN / Unknown 12/08/2024 9:20 AM CDT 12/08/2024 9:20 AM CDT Fernando Couch MD SEND OUTS Final Result Performing Organization Address [facility] Co de Phone Number [email or web address] [address] [place], [place] , [facility] [address] [place], [place] * ARIPIPRAZOLE (ABILIFY) (12/08/2024 9:20 AM CDT) [facility] ARIPIPRAZOLE, QN, SERUM/PLASMA 435 ng/mL [facility] Comment: Reference Range Steady state plasma levels in adults following a daily regimen have been reported as: 5 mg 70 to 126 ng/mL 10 mg 109 to 216 ng/mL 15 mg 206 to 278 ng/mL 20 mg 212 to 574 ng/mL 30 mg 320 to 585 ng/mL This test was developed and its analytical performance characteristics have been determined by [facility]. It has not been cleared or approved by the FDA. This assay has been validated pursuant to the CLIA regulations and is used for clinical purposes. This drug testing is for medical treatment only. Analysis was performed as non-forensic testing and these results should be used only by healthcare providers to render diagnosis or treatment, or to monitor progress of medical conditions. Blood BLOOD SPECIMEN / Unknown 12/08/2024 9:20 AM CDT 12/08/2024 9:20 AM CDT Fernando Couch MD SEND OUTS Final Result Performing Organization Address City/[facility]/ZIP Co de Phone Number [email or web address] [address], [address] [place] [address], * (ABNORMAL) COMP METABOLIC PANEL (12/07/2024 1:44 PM CDT) SODIUM 139 135 - 146 mmol/L 12/08/2024 3:43 AM CDT [facility] POTASSIUM 4.0 3.5 - 5.3 mmol/L 12/08/2024 3:43 AM CDT [facility] CHLORIDE 102 98 - 110 mmol/L 12/08/2024 3:43 AM CDT [facility] CARBON DIOXIDE 29 20 - 32 mmol/L 12/08/2024 3:43 AM CDT [facility] GLUCOSE 126(H) 65 - 99 mg/dL 12/08/2024 3:43 AM CDT [facility] Comment: Fasting reference interval For someone without known diabetes, a glucose value >125 mg/dL indicates that they may have diabetes and this should be confirmed with a follow-up test. CALCIUM 9.0 8.6 - 10.4 mg/dL 12/08/2024 3:43 AM CDT [facility] CREATININE 0.65 0.50 - 1.05 mg/dL 12/08/2024 3:43 AM CDT [facility] BUN/CREATININE RATIO SEE NOTE: (calc) 12/08/2024 3:43 AM CDT [facility] Comment: Not Reported: BUN and Creatinine are within reference range. EGFR 95 > OR = 60 mL/min/1. 73m2 12/08/2024 3:43 AM CDT [facility] ALBUMIN 3.7 3.6 - 5.1 g/dL 12/08/2024 3:43 AM CDT [facility] PROTEIN, TOTAL 6.3 6.1 - 8.1 g/dL 12/08/2024 3:43 AM CDT [facility] BILIRUBIN, TOTAL 0.3 0.2 - 1.2 mg/dL 12/08/2024 3:43 AM CDT [facility] ALKALINE PHOSPHATASE 141 37 - 153 U/L 12/08/2024 3:43 AM CDT [facility] ALT 13 6 - 29 U/L 12/08/2024 3:43 AM CDT [facility] AST 14 10 - 35 U/L 12/08/2024 3:43 AM CDT [facility] UREA NITROGEN (BUN) 10 7 - 25 mg/dL 12/08/2024 3:43 AM CDT [facility] GLOBULIN 2.6 1.9 - 3.7 g/dL (calc) 12/08/2024 3:43 AM CDT [facility] ALBUMIN/GLOBULI N RATIO 1.4 1.0 - 2.5 (calc) 12/08/2024 3:43 AM CDT [facility] Blood BLOOD SPECIMEN / Unknown [facility] / Unknown 12/07/2024 1:44 PM CDT 12/07/2024 1:44 PM CDT us Yecenia Thrasher MD CHEMISTRY Final Result [facility] [address] [place] [address], * (ABNORMAL) XR DXA BONE DENSITY 2 [...] recommended in 3-5 years. Arabella Armijo PA-C [facility] 01/21/2024 Narrative 01/21/2024 1:16 PM CDT For Patients: Results are automatically released to your [employer]) account once available, in compliance with federal regulations. This means that you may see your results before your provider has had a chance to review them. Please allow 2-3 business days for your provider to comment on the results. XR DXA Bone Mineral Density (BMD) EXAM LOCATION: [address] [address] PATIENT NAME: Sarah Reyes DATE OF : [...] two scanners are made by the same boxer operator. PROCEDURE: Dual-energy x-ray absorptiometry performed with routine [...] hip fracture: 1.2%. Yecenia Thrasher MD DEXA Final Result * [...] care provider. XR MAMMO RAFAT BILAT SCREEN [[id number]] CLINICAL HISTORY: This is an asymptomatic 68 y.o. patient. INDICATION FOR EXAM: Mammogram Screening. TECHNIQUE: CC & MLO views were obtained. This study was evaluated with the assistance of Computer-Aided Detection. Breast Tomosynthesis was used in interpretation. COMPARISON FILM: Yes 08/20/22 [facility] 04/07/21 [facility] FINDINGS: There are scattered areas of fibroglandular density. There are no dominant masses, suspicious micro calcifications or areas of architectural distortion. Yecenia Thrasher MD MAMMO Final Result * LIPID PANEL W REFLEX MEASURED LDL (01/09/2024 1:50 PM CDT) CHOLESTEROL,TOTAL 123 100 - 199 mg/dL 01/10/2024 4:18 AM CDT [facility] Comment: Cholesterol, Total Reference Ranges Desirable <200 mg/dL Borderline 200-239 mg/dL High >=240 mg/dL TRIGLYCERIDES 88 <150 mg/dL 01/10/2024 4:18 AM CDT [facility] HDL CHOLESTEROL 68 >40 mg/dL 4:18 AM CDT [facility] NON-HDL CHOLESTEROL 55 <145 mg/dl 01/10/2024 4:18 AM CDT [facility] CHOL/HDL RATIO 1.81 <4.50 01/10/2024 4:18 AM CDT [facility] LDL CHOLESTEROL 37 <=130 mg/dL 01/10/2024 4:18 AM CDT [facility] VLDL CHOLESTEROL 18 <=30 mg/dL 01/10/2024 4:18 AM CDT [facility] PROVIDER ORDERED STATUS RANDOM 01/10/2024 4:18 AM CDT [facility] Blood BLOOD SPECIMEN / Unknown Venipuncture / Unknown 01/09/2024 1:50 PM CDT 01/09/2024 1:50 PM CDT us Yecenia Thrasher MD CHEMISTRY Final Result [facility] [address] [place] [address], * SDNA-FIT EXTERNAL (COLOGUARD) (06/05/2022 7:37 AM LINSEED OIL PRESS TENDER) NONINV COLON CA DNA+OCC BLD SCRN STL-IMP Negative Negative 06/12/2022 11:42 PM LINSEED OIL PRESS TENDER [facility] (CLIA #:[id number]) Comment: NEGATIVE TEST RESULT. A negative Cologuard [...] (Clyde Ahuja al, N Engl J Med 2014;370(14):8541-0903) The normal value (reference range) for this assay is negative. COLOGUARD RE-SCREENING RECOMMENDATION: Periodic colorectal cancer screening is an important part of preventive healthcare for asymptomatic individuals at average risk for colorectal cancer. Following a negative Cologuard result, the [place] Cancer Society and U.S. Multi-Society Task Force screening guidelines recommend a Cologuard re-screening interval of 3 years. References: [place] Cancer Society Guideline for Colorectal Cancer Screening: https://www.cancer.org/cancer/ttqyf-jwncwv-tvimii/fywymyjlq-gcwznfksp-uohlffv/ac s-rec ommendations.html.; Ayaan DK, Radha WARREN, Jaocb ElkinsK, Colorectal Cancer Screening: Recommendations for Physicians and Patients from the U.S. Multi-Society Task Force on Colorectal Cancer Screening , Am J Gastroenterology 2017; 112:6607-5658. TEST DESCRIPTION: Composite algorithmic analysis of stool [...] Byrd et al, N Engl J Med 2014;370(14):2151-3320.) Cologuard may produce a false negative or false positive result (no colorectal cancer or precancerous polyp present at colonoscopy follow up). A negative Cologuard test result does not guarantee the absence of CRC or advanced adenoma (pre-cancer). The current Cologuard screening interval is every 3 years. ([place] Cancer Society and U.S. Multi-Society Task Force). Cologuard performance data in a 10,000 patient pivotal study using colonoscopy as the reference method can be accessed at the following location: www.[employer]/results. Additional description of the Cologuard test process, warnings and precautions can be found at www.cologuard.com. Stool specimen (specimen) (Rectum) 06/05/2022 7:37 AM LINSEED OIL PRESS TENDER 06/06/2022 12:39 PM LINSEED OIL PRESS TENDER Yecenia Thrasher MD URINE Final Result [facility] (CLIA #:[id number]) [address] [place] [address], * ANTI HCV (05/30/2021 10:19 AM LINSEED OIL PRESS TENDER) HEPATITIS C ANTIBODY Non-React armida Non-React armida 05/30/2021 6:36 PM LINSEED OIL PRESS TENDER [facility] Comment:Antibodies to HCV no t detected; does not exclude the possibility of exposure to HCV. Blood BLOOD SPECIMEN / Unknown Venipuncture / Unknown 05/30/2021 10:19 AM LINSEED OIL PRESS TENDER 05/30/2021 10:19 AM LINSEED OIL PRESS TENDER Yecenia Thrasher MD SEND OUTS Final Result Performing Organization Address City/[facility]/ZIP Co de Phone Number [facility] [address] [place] [address], [place] from Last 3 Months or Most Recently Relevant to Health Maintenance Insurance MEDICARE [place] ONLY MEDICAID MEDICARE PART B [place] ONLY Member Subscriber Plan / Payer (Ef fective 1980-) Name:Sarah Reyes Member ID:[id number] Relation to Subscriber:Self Name:Sarah Reyes Subscriber ID:[id number] Payer ID:Not on file Group ID:Not on file Type:Not on file Address: ATTN: CLAIMS [address] MEDICARE PART A [place] ONLY Member Subscriber Plan / Payer (Ef fective 1980-) Name:Sarah Reyes Member ID:[id number] Relation to Subscriber:Self Name:Sarah Reyes Subscriber ID:[id number] Payer ID:Not on file Group ID:Not on file Type:Not on file Address: ATTN: CLAIMS [id number] MEDICARE P[place] MEDICAID Advance Directives Documents on File Type Date Recorded Patient Burnt Lime Drawer Expl anation POLST 10/23/2022 Healthcare Directive 05/24/2021 022 * Full Code (Latest Code Status on File) Date Activated Date Inactivated Comments 12/09/2024 8:05 PM 12/10/2024 4:59 PM Question Answer Comments Code Status Discussion: Reviewed Preferences * Full Code Date Activated Date Inactivated Comments 03/22/2024 7:55 [...] to Assess Preferences, Provider to review later Care Teams Photogrammetric Compilation Specialist Relationship Specialty Start Date End Date Yecenia Thrasher MD [address] [place] [address] PCP - General Family Practice 04/07/21
[2025-01-08 12:35] LABS: Hematocrit* 35.2 % (33.0-51.0); Hemoglobin* 11.0 gm/dL (12.0-16.0); Immature Granulocytes Abs Auto 0.00 K/uL (0.00-0.30); Immature Granulocytes Pct Auto 0.0 %; Mean Corpuscular HGB Conc 31 gm/dL (32-36); Mean Corpuscular Hemoglobin 29 pg (26-34); Mean Corpuscular Volume 93 fL (80-100); RDW Coefficient of Variation % 13.5 % (11.5-15.5); Red Blood Count* 3.78 m/uL (4.00-5.20); White Blood Count* 4.00 K/uL (4.50-11.00)
[2025-01-08 12:52] LABS: Chloride* 103 mmol/L (96-114); Potassium* 4.1 mmol/L (3.6-5.1); Sodium* 140 mmol/L (135-149)
[2025-01-08 12:53] LABS: Lymphocytes Absolute Auto 1.00 K/uL (0.90-2.90); Slide Review Reflex No
[2025-01-08 12:54] LABS: Blood Urea Nitrogen* 14 mg/dL (7-30); Creatinine* 0.6 mg/dL (0.5-1.5); Est. Creatinine Clearance* 43.92; Estimated Glomerular Filt Rate 97 ml/min
[2025-01-08 12:55] LABS: Anion Gap 6 mEq/L (7-15); Calcium* 9.1 mg/dL (8.4-10.6); Carbon Dioxide* 31 mmol/L (20-32); Glucose* 86 mg/dL (60-115)
[2025-01-08 14:57] VITALS: BP 120/65; PULSE 80; RESP 16; O2SAT 94
== END 2025-01-08 15:31 | disposition home or self-care (01) ==
PROVIDERS: Emergency Provider Family Medicine; PCP Family Medicine
DX: S52.002 Unspecified fracture of upper end of left ulna (principal)
CPT/HCPCS: 36415; 73080; 80048; 84550; 85025; 86140; 99284

== ENCOUNTER 2025-03-01 20:12 | Outpatient (CLI) | payer MEDICARE, MEDICAID, SELFPAY | END 2025-03-01 20:13 | disposition home or self-care (01) | LOC: SLEEP 20:13 | PROVIDERS: PCP Family Medicine; Visit Provider Internal Medicine | DX: G47.33 Obstructive sleep apnea (adult) (pediatric) (principal) | CPT/HCPCS: 95811 ==